=== PATIENT | female | born 1940 | race Caucasian/White ===

== ENCOUNTER 2017-08-03 15:30 | Outpatient (RCR) | payer MEDICARE, SELFPAY ==
[2017-07-18 01:17] VITALS: BP 152/70; PULSE 76; RESP 18; TEMP 37.2; BMI 25.7
[2017-07-20 15:25] VITALS: BP 158/79; PULSE 74; RESP 16; TEMP 36.6; BMI 25.7
--- NOTE | 2017-07-20 16:44 | PCM.WC.PN ---
(1) Non-pressure chronic ulcer of right ankle with fat layer exposed Status: Acute Current Visit: Yes Code(s): L97.312 - Non-pressure chronic ulcer of right ankle with fat layer exposed (2) Venous insufficiency (chronic) (peripheral) Status: Chronic Current Visit: Yes Comment: I87.2 Type of Wound Date of Service: 07/20/17 Chief Complaint: R ankle ulcers History of Wound: R ankle ulcers present for about 1 month, treating with Bactroban topically (completed) as well as an unknown PO antibiotic. Notes improvement since starting this, but her information technology data analyst, Dr. Navas, recommended she follow up here. Pt is not diabetic, does not smoke, sleeps flat at night, but admits to frequently standing in one place or sitting with her legs down. Has a history of hypertension, but no other systemic medical problems that she knows of--specifically denies autoimmune diseases. Denies redness, pus, malodor, warmth. Minimal pain and drainage. Does have swelling of both legs that is mild. Unsure how the ulcers started, but states she developed a rash that was treated successfully with prednisone and then developed these ulcerations. 07/06--R daly and R achilles ulcers improved with the use of medihoney hydrogel sheets (Santyl too expensive). R lateral ankle ulcer measuring larger. Plan for biopsy today of the R lateral ankle ulcer given non-healing and measuring larger as well as referral to dermatology given pt's complaint of new spots. 07/13--R daly and R achilles ulcers improved with the use of medihoney. R lateral ankle ulcer improved. Biopsy negative for malignancy. Art study normal. Venous study reveals vein incompetence. Referral to Dr. Gallego. Will increase compression. 07/20--R daly healed and R achilles ulcer improved with the use of medihoney. R lateral ankle ulcer stable. Venous study reveals vein incompetence. Referral to Dr. Gallego. Denies s/s of acute bacterial infection. Progress of Wound: R daly healed and R achilles improved, R lateral ankle ulcer stable. - Physical Exam Vital Signs Temp Pulse Resp BP 97.8 F 74 16 158/79 H 07/20/17 15:25 07/20/17 15:25 07/20/17 15:25 07/20/17 15:25 General: Alert, Oriented x3, Cooperative, No apparent distress Skin: Ulcer/ Wound - R lateral ankle, R achilles with no erythema, no pus, no malodor, no increased warmth, no TTP. No clinical signs of acute bacterial infection noted. Please see nurse's wound assessment. Wound Measurements and Assessment - Nurse 1 - General Ulcer Measurement Start: 07/20/17 00:43 Freq: Status: Active Protocol: Activity Type Activity Date Activity User E-Sign Co-Sign Detail Recorded Client Recorded Date Recorded By Document 07/20/17 15:25 [id number] 07/20/17 15:35 NIYA 07/20/17 15:25 Wound Center Nurse 1 [Ulcer Assessment Protocol: WC.WD.LOC] #4 RT ACHILLES -Combined with other wound No -Current Size (cm) - Length 0.3 -Current Size (cm) - Width 0.4 -Current Size (cm) - Depth 0.1 -Total Square Cm 0.12 -Photo Taken No -Epithelialization Small 1-33% -Tunneling No -Undermining/Tunneling No -Circular Undermining No -Exudate Amt Small (1-33%) -Exudate Type Serosanguineous -Wound Margin Flat & Intact -Granulation Amt Large (67-100%) -Granulation Quality Red -Slough/Fibrin Yes -Necrosis Amt Small (1-33%) -Necrotic Tissue Type Adherent Slough -Structure Exposed N/A -Texture (Risa-wound Skin Appearance) Assessed -Moisture (Risa-wound Skin Appearance Assessed ) Dry/Scaly -Color (Risa-wound Skin Appearance) Assessed -Temperature (Risa-wound Skin No Abnormality Appearance) (Pt Warm) -Tenderness on Palpation (Risa-wound No Skin Appearance) -Ulcer Cleansing Rinsed/ Irrigated with Saline -Foul Odor after Cleansing No -Anesthetic Used 4% Lidocaine Solution #3 RT LATERAL ANKLE -Combined with other wound No -Current Size (cm) - Length 2.2 -Current Size (cm) - Width 1.9 -Current Size (cm) - Depth 0.1 -Total Square Cm 4.18 -Photo Taken No -Epithelialization Small 1-33% -Tunneling No -Undermining/Tunneling No -Circular Undermining No -Exudate Amt Medium (34-66%) -Exudate Type Serosanguineous -Wound Margin Flat & Intact -Granulation Amt Medium (34-66%) -Granulation Quality [place] -Necrosis Amt Medium (34-66%) -Necrotic Tissue Type Adherent Slough -Texture (Risa-wound Skin Appearance) Assessed -Moisture (Risa-wound Skin Appearance Assessed ) Dry/Scaly -Color (Risa-wound Skin Appearance) Assessed -Tenderness on Palpation (Risa-wound Yes Skin Appearance) -Ulcer Cleansing Rinsed/ Irrigated with Saline -Foul Odor after Cleansing No -Anesthetic Used 4% Lidocaine Solution #2- RT DALY CLUSTER -Combined with other wound No -Current Size (cm) - Length 0 -Current Size (cm) - Width 0 -Current Size (cm) - Depth 0 -Total Square Cm 0 [Edema Assessment] -Lower Limb Edema Present Yes -Right Calf (cm) 29.3 -Right Ankle (cm) 17.4 WC - Nurse 2 - General Ulcer CM Notes Start: 07/20/17 00:43 Freq: Status: Active Protocol: Activity Type Activity Date Activity User E-Sign Co-Sign Detail Recorded Client Recorded Date Recorded By Document 07/20/17 15:54 MW [id number] 07/20/17 16:01 MW 07/20/17 15:54 Wound Center Nurse 2 [Procedure/Treatment] #4 RT ACHILLES -Time 15:54 -Correct Patient Yes -Correct Side, Site, Position Yes -Correct Procedure Yes -Procedure Performed Yes -Type of Procedure Debridement -Clinical Debridement Subcutaneous -Post Debridement Size (cm) - Length 0.4 -Post Debridement Size (cm) - Width 0.4 -Post Debridement Size (cm) - Depth 0.1 -Total Square Cm 0.16 -Wound/Ulcer Outcome Not Healed -Ulcer Cleansing Rinsed/ Irrigated with Saline -Foul Odor after Cleansing No -Bioengineered Tissue No -Cetacaine [place] No -Bleeding Controlled with Pressure -Treatment Response Procedure Tolerated Well #3 RT LATERAL ANKLE -Time 15:55 -Correct Patient Yes -Correct Side, Site, Position Yes -Correct Procedure Yes -Procedure Performed Yes -Type of Procedure Debridement -Clinical Debridement Subcutaneous -Post Debridement Size (cm) - Length 2.3 -Post Debridement Size (cm) - Width 1.9 -Post Debridement Size (cm) - Depth 0.1 -Total Square Cm 4.37 -Wound/Ulcer Outcome Not Healed -Ulcer Cleansing Rinsed/ Irrigated with Saline -Foul Odor after Cleansing No -Bioengineered Tissue No -Cetacaine [place] No -Bleeding Controlled with Pressure -Treatment Response Procedure Tolerated Well #2- RT DALY CLUSTER -Time 15:56 -Correct Patient Yes -Correct Side, Site, Position Yes -Correct Procedure Yes -Procedure Performed No -Post Debridement Size (cm) - Length 0 -Post Debridement Size (cm) - Width 0 -Post Debridement Size (cm) - Depth 0 -Total Square Cm 0 -Wound/Ulcer Outcome Healed- Epithelialized -Ulcer Cleansing Not Cleansed -Foul Odor after Cleansing No -Bleeding Controlled with NA -Treatment Response Procedure Tolerated Well [See Physician Procedure note for Specifics] Pain Scale: 0-10 Numeric [Pain] -Is Patient Pain Free? Yes Debridement Note Post-Debridement Measurements/Treatment WC - Nurse 2 - General Ulcer CM Notes Start: 07/20/17 00:43 Freq: Status: Active Protocol: Activity Type Activity Date Activity User E-Sign Co-Sign Detail Recorded Client Recorded Date Recorded By Document 07/20/17 15:54 MW [id number] 07/20/17 16:01 MW 07/20/17 15:54 Wound Center Nurse 2 #4 RT ACHILLES -Time 15:54 -Correct Patient Yes -Correct Side, Site, Position Yes -Correct Procedure Yes -Procedure Performed Yes -Type of Procedure Debridement -Clinical Debridement Subcutaneous -Post Debridement Size (cm) - Length 0.4 -Post Debridement Size (cm) - Width 0.4 -Post Debridement Size (cm) - Depth 0.1 -Total Square Cm 0.16 -Wound/Ulcer Outcome Not Healed -Ulcer Cleansing Rinsed/ Irrigated with Saline -Foul Odor after Cleansing No -Bioengineered Tissue No -Cetacaine [place] No -Bleeding Controlled with Pressure -Treatment Response Procedure Tolerated Well #3 RT LATERAL ANKLE -Time 15:55 -Correct Patient Yes -Correct Side, Site, Position Yes -Correct Procedure Yes -Procedure Performed Yes -Type of Procedure Debridement -Clinical Debridement Subcutaneous -Post Debridement Size (cm) - Length 2.3 -Post Debridement Size (cm) - Width 1.9 -Post Debridement Size (cm) - Depth 0.1 -Total Square Cm 4.37 -Wound/Ulcer Outcome Not Healed -Ulcer Cleansing Rinsed/ Irrigated with Saline -Foul Odor after Cleansing No -Bioengineered Tissue No -Cetacaine [place] No -Bleeding Controlled with Pressure -Treatment Response Procedure Tolerated Well #2- RT DALY CLUSTER -Time 15:56 -Correct Patient Yes -Correct Side, Site, Position Yes -Correct Procedure Yes -Procedure Performed No -Post Debridement Size (cm) - Length 0 -Post Debridement Size (cm) - Width 0 -Post Debridement Size (cm) - Depth 0 -Total Square Cm 0 -Wound/Ulcer Outcome Healed- Epithelialized -Ulcer Cleansing Not Cleansed -Foul Odor after Cleansing No -Bleeding Controlled with NA -Treatment Response Procedure Tolerated Well Pain Scale: 0-10 Numeric Is Patient Pain Free? Yes Wound debrided: R lateral ankle Laterality: Right Wound Grade/Stage: full thickness VLU Type of Debridement: Excisional debridement Anesthesia Used: 4% Lidocaine Solution Depth: Down to and including healthy tissue, in the subcutaneous layer Percentage of wound debrided: 100 Instrument Used: 3mm curette Tissue Removed: fibrous slough Severity: Fat Layer Exposed Amount of bleeding with debridement: Mild Bleeding Controlled with: Pressure, Compression and gauze Patient tolerated procedure well - Additional Wound Wound debrided: R achilles Laterality: Right Wound Grade/Stage: full thickness VLU Type of Debridement: Excisional debridement Anesthesia Used: 4% Lidocaine Solution Depth: Down to and including healthy tissue, in the subcutaneous layer Percentage of wound debrided: 100 Instrument Used: 3mm curette Tissue Removed: fibrous slough Severity: Fat Layer Exposed Amount of bleeding with debridement: Mild Bleeding Controlled with: Pressure, Compression and gauze Patient tolerated procedure: Patient tolerated procedure well Assessment/Plan Active Problems Non-pressure chronic ulcer of right ankle with fat layer exposed (Acute) Venous insufficiency (chronic) (peripheral) (Chronic) I87.2 Assessment: See diagnoses Plan: SQ/excisional debridement R lateral ankle ulcer and R achilles ulcer as above. Moderate spandagrip. Referral to dermatology given new spots on her LEFT leg (pt states this is how the wounds started on her RIGHT leg). Pt unable to purchase santyl. Apply today in clinic, cont medihoney gel at home (stop hydrogel sheets) followed by dry gauze. Increase to 2x daily. Monitor for redness, pus, malodor, warmth, inc pain, swelling as well as N/V/F/C and go to the ED with these.
--- NOTE | 2017-07-20 16:48 | PN.PCM_ITS ---
(1) Non-pressure chronic ulcer of right ankle with fat layer exposed Status: Acute Current Visit: Yes Code(s): L97.312 - Non-pressure chronic ulcer of right ankle with fat layer exposed (2) Venous insufficiency (chronic) (peripheral) Status: Chronic Current Visit: Yes Comment: I87.2 Type of Wound Date of Service: 07/20/17 Chief Complaint: R ankle ulcers History of Wound: R ankle ulcers present for about 1 month, treating with Bactroban topically (completed) as well as an unknown PO antibiotic. Notes improvement since starting this, but her inbound sales consultant, Dr. Navas, recommended she follow up here. Pt is not diabetic, does not smoke, sleeps flat at night, but admits to frequently standing in one place or sitting with her legs down. Has a history of hypertension, but no other systemic medical problems that she knows of--specifically denies autoimmune diseases. Denies redness, pus, malodor , warmth. Minimal pain and drainage. Does have swelling of both legs that is mild. Unsure how the ulcers started, but states she developed a rash that was treated successfully with prednisone and then developed these ulcerations. --R daly and R achilles ulcers improved with the use of medihoney hydrogel sheets (Santyl too expensive). R lateral ankle ulcer measuring larger. Plan for biopsy today of the R lateral ankle ulcer given non-healing and measuring larger as well as referral to dermatology given pt's complaint of new spots. 07/13--R daly and R achilles ulcers improved with the use of medihoney. R lateral ankle ulcer improved. Biopsy negative for malignancy. Art study normal. Venous study reveals vein incompetence. Referral to Dr. Gallego. Will increase compression. 07/20--R daly healed and R achilles ulcer improved with the use of medihoney. R lateral ankle ulcer stable. Venous study reveals vein incompetence. Referral to Dr. Gallego. Denies s/s of acute bacterial infection. Progress of Wound: R daly healed and R achilles improved, R lateral ankle ulcer stable. - Physical Exam Vital Signs Temp Pulse Resp BP 97.8 F 74 16 158/79 H 07/20/17 15:25 07/20/17 15:25 07/20/17 15:25 07/20/17 15:25 General: Alert, Oriented x3, Cooperative, No apparent distress Skin: Ulcer/ Wound - R lateral ankle, R achilles with no erythema, no pus, no malodor, no increased warmth, no TTP. No clinical signs of acute bacterial infection noted. Please see nurse's wound assessment. Wound Measurements and Assessment - Nurse 1 - General Ulcer Measurement Start: 07/20/17 00:43 Freq: Status: Active Protocol: Activity Type Activity Date Activity User E-Sign Co-Sign Detail Recorded Client Recorded Date Recorded By Document 07/20/17 15:25 [id number] 07/20/17 15:35 NIYA 07/20/17 15:25 Wound Center Nurse 1 [Ulcer Assessment Protocol: WC.WD.LOC] #4 RT ACHILLES -Combined with other wound No -Current Size (cm) - Length 0.3 -Current Size (cm) - Width 0.4 -Current Size (cm) - Depth 0.1 -Total Square Cm 0.12 -Photo Taken No -Epithelialization Small 1-33% -Tunneling No -Undermining/Tunneling No -Circular Undermining No -Exudate Amt Small (1-33%) -Exudate Type Serosanguineous -Wound Margin Flat & Intact -Granulation Amt Large (67-100%) -Granulation Quality Red -Slough/Fibrin Yes -Necrosis Amt Small (1-33%) -Necrotic Tissue Type Adherent Slough -Structure Exposed N/A -Texture (Risa-wound Skin Appearance) Assessed -Moisture (Risa-wound Skin Appearance Assessed ) Dry/Scaly -Color (Risa-wound Skin Appearance) Assessed -Temperature (Risa-wound Skin No Abnormality Appearance) (Pt Warm) -Tenderness on Palpation (Risa-wound No Skin Appearance) -Ulcer Cleansing Rinsed/ Irrigated with Saline -Foul Odor after Cleansing No -Anesthetic Used 4% Lidocaine Solution #3 RT LATERAL ANKLE -Combined with other wound No -Current Size (cm) - Length 2.2 -Current Size (cm) - Width 1.9 -Current Size (cm) - Depth 0.1 -Total Square Cm 4.18 -Photo Taken No -Epithelialization Small 1-33% -Tunneling No -Undermining/Tunneling No -Circular Undermining No -Exudate Amt Medium (34-66%) -Exudate Type Serosanguineous -Wound Margin Flat & Intact -Granulation Amt Medium (34-66%) -Granulation Quality [place] -Necrosis Amt Medium (34-66%) -Necrotic Tissue Type Adherent Slough -Texture (Risa-wound Skin Appearance) Assessed -Moisture (Risa-wound Skin Appearance Assessed ) Dry/Scaly -Color (Risa-wound Skin Appearance) Assessed -Tenderness on Palpation (Risa-wound Yes Skin Appearance) -Ulcer Cleansing Rinsed/ Irrigated with Saline -Foul Odor after Cleansing No -Anesthetic Used 4% Lidocaine Solution #2- RT DALY CLUSTER -Combined with other wound No -Current Size (cm) - Length 0 -Current Size (cm) - Width 0 -Current Size (cm) - Depth 0 -Total Square Cm 0 [Edema Assessment] -Lower Limb Edema Present Yes -Right Calf (cm) 29.3 -Right Ankle (cm) 17.4 WC - Nurse 2 - General Ulcer CM Notes Start: 07/20/17 00:43 Freq: Status: Active Protocol: Activity Type Activity Date Activity User E-Sign Co-Sign Detail Recorded Client Recorded Date Recorded By Document 07/20/17 15:54 MW [id number] 07/20/17 16:01 MW 07/20/17 15:54 Wound Center Nurse 2 [Procedure/Treatment] #4 RT ACHILLES -Time 15:54 -Correct Patient Yes -Correct Side, Site, Position Yes -Correct Procedure Yes -Procedure Performed Yes -Type of Procedure Debridement -Clinical Debridement Subcutaneous -Post Debridement Size (cm) - Length 0.4 -Post Debridement Size (cm) - Width 0.4 -Post Debridement Size (cm) - Depth 0.1 -Total Square Cm 0.16 -Wound/Ulcer Outcome Not Healed -Ulcer Cleansing Rinsed/ Irrigated with Saline -Foul Odor after Cleansing No -Bioengineered Tissue No -Cetacaine [place] No -Bleeding Controlled with Pressure -Treatment Response Procedure Tolerated Well #3 RT LATERAL ANKLE -Time 15:55 -Correct Patient Yes -Correct Side, Site, Position Yes -Correct Procedure Yes -Procedure Performed Yes -Type of Procedure Debridement -Clinical Debridement Subcutaneous -Post Debridement Size (cm) - Length 2.3 -Post Debridement Size (cm) - Width 1.9 -Post Debridement Size (cm) - Depth 0.1 -Total Square Cm 4.37 -Wound/Ulcer Outcome Not Healed -Ulcer Cleansing Rinsed/ Irrigated with Saline -Foul Odor after Cleansing No -Bioengineered Tissue No -Cetacaine [place] No -Bleeding Controlled with Pressure -Treatment Response Procedure Tolerated Well #2- RT DALY CLUSTER -Time 15:56 -Correct Patient Yes -Correct Side, Site, Position Yes -Correct Procedure Yes -Procedure Performed No -Post Debridement Size (cm) - Length 0 -Post Debridement Size (cm) - Width 0 -Post Debridement Size (cm) - Depth 0 -Total Square Cm 0 -Wound/Ulcer Outcome Healed- Epithelialized -Ulcer Cleansing Not Cleansed -Foul Odor after Cleansing No -Bleeding Controlled with NA -Treatment Response Procedure Tolerated Well [See Physician Procedure note for Specifics] Pain Scale: 0-10 Numeric [Pain] -Is Patient Pain Free? Yes Debridement Note Post-Debridement Measurements/Treatment WC - Nurse 2 - General Ulcer CM Notes Start: 07/20/17 00:43 Freq: Status: Active Protocol: Activity Type Activity Date Activity User E-Sign Co-Sign Detail Recorded Client Recorded Date Recorded By Document 07/20/17 15:54 MW [id number] 07/20/17 16:01 MW 07/20/17 15:54 Wound Center Nurse 2 #4 RT ACHILLES -Time 15:54 -Correct Patient Yes -Correct Side, Site, Position Yes -Correct Procedure Yes -Procedure Performed Yes -Type of Procedure Debridement -Clinical Debridement Subcutaneous -Post Debridement Size (cm) - Length 0.4 -Post Debridement Size (cm) - Width 0.4 -Post Debridement Size (cm) - Depth 0.1 -Total Square Cm 0.16 -Wound/Ulcer Outcome Not Healed -Ulcer Cleansing Rinsed/ Irrigated with Saline -Foul Odor after Cleansing No -Bioengineered Tissue No -Cetacaine [place] No -Bleeding Controlled with Pressure -Treatment Response Procedure Tolerated Well #3 RT LATERAL ANKLE -Time 15:55 -Correct Patient Yes -Correct Side, Site, Position Yes -Correct Procedure Yes -Procedure Performed Yes -Type of Procedure Debridement -Clinical Debridement Subcutaneous -Post Debridement Size (cm) - Length 2.3 -Post Debridement Size (cm) - Width 1.9 -Post Debridement Size (cm) - Depth 0.1 -Total Square Cm 4.37 -Wound/Ulcer Outcome Not Healed -Ulcer Cleansing Rinsed/ Irrigated with Saline -Foul Odor after Cleansing No -Bioengineered Tissue No -Cetacaine [place] No -Bleeding Controlled with Pressure -Treatment Response Procedure Tolerated Well #2- RT DALY CLUSTER -Time 15:56 -Correct Patient Yes -Correct Side, Site, Position Yes -Correct Procedure Yes -Procedure Performed No -Post Debridement Size (cm) - Length 0 -Post Debridement Size (cm) - Width 0 -Post Debridement Size (cm) - Depth 0 -Total Square Cm 0 -Wound/Ulcer Outcome Healed- Epithelialized -Ulcer Cleansing Not Cleansed -Foul Odor after Cleansing No -Bleeding Controlled with NA -Treatment Response Procedure Tolerated Well Pain Scale: 0-10 Numeric Is Patient Pain Free? Yes Wound debrided: R lateral ankle Laterality: Right Wound Grade/Stage: full thickness VLU Type of Debridement: Excisional debridement Anesthesia Used: 4% Lidocaine Solution Depth: Down to and including healthy tissue, in the subcutaneous layer Percentage of wound debrided: 100 Instrument Used: 3mm curette Tissue Removed: fibrous slough Severity: Fat Layer Exposed Amount of bleeding with debridement: Mild Bleeding Controlled with: Pressure, Compression and gauze Patient tolerated procedure well - Additional Wound Wound debrided: R achilles Laterality: Right Wound Grade/Stage: full thickness VLU Type of Debridement: Excisional debridement Anesthesia Used: 4% Lidocaine Solution Depth: Down to and including healthy tissue, in the subcutaneous layer Percentage of wound debrided: 100 Instrument Used: 3mm curette Tissue Removed: fibrous slough Severity: Fat Layer Exposed Amount of bleeding with debridement: Mild Bleeding Controlled with: Pressure, Compression and gauze Patient tolerated procedure: Patient tolerated procedure well Assessment/Plan Active Problems Non-pressure chronic ulcer of right ankle with fat layer exposed (Acute) Venous insufficiency (chronic) (peripheral) (Chronic) I87.2 Assessment: See diagnoses Plan: SQ/excisional debridement R lateral ankle ulcer and R achilles ulcer as above. Moderate spandagrip. Referral to dermatology given new spots on her LEFT leg (pt states this is how the wounds started on her RIGHT leg). Pt unable to purchase santyl. Apply today in clinic, cont medihoney gel at home (stop hydrogel sheets) followed by dry gauze. Increase to 2x daily. Monitor for redness, pus, malodor, warmth, inc pain, swelling as well as N/V/F/C and go to the ED with these.
[2017-07-27 15:49] VITALS: BP 147/67; PULSE 71; RESP 18; TEMP 36.5; BMI 25.7
--- NOTE | 2017-07-27 16:33 | PCM.WC.PN ---
(1) Non-pressure chronic ulcer of right ankle with fat layer exposed Status: Acute Current Visit: Yes Code(s): L97.312 - Non-pressure chronic ulcer of right ankle with fat layer exposed (2) Venous insufficiency (chronic) (peripheral) Status: Chronic Current Visit: Yes Comment: I87.2 Type of Wound Date of Service: 07/27/17 Chief Complaint: R ankle ulcers History of Wound: R ankle ulcers present for about 1 month, treating with Bactroban topically (completed) as well as an unknown PO antibiotic. Notes improvement since starting this, but her weight yardage checker, Dr. Navas, recommended she follow up here. Pt is not diabetic, does not smoke, sleeps flat at night, but admits to frequently standing in one place or sitting with her legs down. Has a history of hypertension, but no other systemic medical problems that she knows of--specifically denies autoimmune diseases. Denies redness, pus, malodor, warmth. Minimal pain and drainage. Does have swelling of both legs that is mild. Unsure how the ulcers started, but states she developed a rash that was treated successfully with prednisone and then developed these ulcerations. 07/06--R daly and R achilles ulcers improved with the use of medihoney hydrogel sheets (Santyl too expensive). R lateral ankle ulcer measuring larger. Plan for biopsy today of the R lateral ankle ulcer given non-healing and measuring larger as well as referral to dermatology given pt's complaint of new spots. 07/13--R daly and R achilles ulcers improved with the use of medihoney. R lateral ankle ulcer improved. Biopsy negative for malignancy. Art study normal. Venous study reveals vein incompetence. Referral to Dr. Gallego. Will increase compression. 07/20--R daly healed and R achilles ulcer improved with the use of medihoney. R lateral ankle ulcer stable. Venous study reveals vein incompetence. Referral to Dr. Gallego. Denies s/s of acute bacterial infection. 07/27--R daly healed and R achilles ulcer healed with the use of medihoney. R lateral ankle ulcer improved. Venous study reveals vein incompetence. Referral to Dr. Gallego provided last week. Denies s/s of acute bacterial infection. Progress of Wound: R daly healed and R achilles healed, R lateral ankle ulcer improved with medihoney. - Physical Exam Vital Signs Temp Pulse Resp BP 97.7 F L 71 18 147/67 H 07/27/17 15:49 07/27/17 15:49 07/27/17 15:49 07/27/17 15:49 General: Alert, Oriented x3, Cooperative, No apparent distress Skin: Ulcer/ Wound - R lateral ankle with no erythema, no pus, no malodor, no increased warmth, no TTP. No clinical signs of acute bacterial infection noted. Please see nurse's wound assessment. Wound Measurements and Assessment WC - Nurse 1 - General Ulcer Measurement Start: 07/20/17 00:43 Freq: Status: Active Protocol: Activity Type Activity Date Activity User E-Sign Co-Sign Detail Recorded Client Recorded Date Recorded By Document 07/27/17 15:49 DL [id number] 07/27/17 15:57 DL 07/27/17 15:49 Wound Center Nurse 1 [Ulcer Assessment Protocol: WC.WD.LOC] #4 RT ACHILLES -Current Size (cm) - Length 0.6 -Current Size (cm) - Width 0.5 -Current Size (cm) - Depth 0.1 -Total Square Cm 0.30 -Photo Taken No -Exudate Amt None Present (0 %) -Wound Margin Flat & Intact -Granulation Amt Large (67-100%) -Granulation Quality [place] -Necrosis Amt None Present (0 %) -Texture (Risa-wound Skin Appearance) Scarring -Moisture (Risa-wound Skin Appearance No Abnormality ) -Color (Risa-wound Skin Appearance) No Abnormality -Temperature (Risa-wound Skin No Abnormality Appearance) (Pt Warm) -Ulcer Cleansing Rinsed/ Irrigated with Saline -Foul Odor after Cleansing No -Anesthetic Used 4% Lidocaine Solution #3 RT LATERAL ANKLE -Current Size (cm) - Length 1.1 -Current Size (cm) - Width 2.1 -Current Size (cm) - Depth 0.1 -Total Square Cm 2.31 -Photo Taken No -Exudate Amt Small (1-33%) -Exudate Type Serosanguineous -Wound Margin Distinct, Outline Attached -Granulation Amt Small (1-33%) -Granulation Quality [place] -Necrosis Amt Large (67-100%) -Necrotic Tissue Type Adherent Slough -Structure Exposed N/A -Texture (Risa-wound Skin Appearance) Excoriation -Moisture (Risa-wound Skin Appearance Maceration ) -Color (Risa-wound Skin Appearance) No Abnormality -Temperature (Risa-wound Skin No Abnormality Appearance) (Pt Warm) -Ulcer Cleansing Rinsed/ Irrigated with Saline -Foul Odor after Cleansing No -Anesthetic Used 4% Lidocaine Solution [Edema Assessment] -Right Calf (cm) 28.5 -Right Ankle (cm) 16 Debridement Note Post-Debridement Measurements/Treatment WC - Nurse 2 - General Ulcer CM Notes Start: 07/20/17 00:43 Freq: Status: Active Protocol: Activity Type Activity Date Activity User E-Sign Co-Sign Detail Recorded Client Recorded Date Recorded By Document 07/20/17 15:54 MW [id number] 07/20/17 16:01 MW 07/20/17 15:54 Wound Center Nurse 2 #4 RT ACHILLES -Time 15:54 -Correct Patient Yes -Correct Side, Site, Position Yes -Correct Procedure Yes -Procedure Performed Yes -Type of Procedure Debridement -Clinical Debridement Subcutaneous -Post Debridement Size (cm) - Length 0.4 -Post Debridement Size (cm) - Width 0.4 -Post Debridement Size (cm) - Depth 0.1 -Total Square Cm 0.16 -Wound/Ulcer Outcome Not Healed -Ulcer Cleansing Rinsed/ Irrigated with Saline -Foul Odor after Cleansing No -Bioengineered Tissue No -Cetacaine [place] No -Bleeding Controlled with Pressure -Treatment Response Procedure Tolerated Well #3 RT LATERAL ANKLE -Time 15:55 -Correct Patient Yes -Correct Side, Site, Position Yes -Correct Procedure Yes -Procedure Performed Yes -Type of Procedure Debridement -Clinical Debridement Subcutaneous -Post Debridement Size (cm) - Length 2.3 -Post Debridement Size (cm) - Width 1.9 -Post Debridement Size (cm) - Depth 0.1 -Total Square Cm 4.37 -Wound/Ulcer Outcome Not Healed -Ulcer Cleansing Rinsed/ Irrigated with Saline -Foul Odor after Cleansing No -Bioengineered Tissue No -Cetacaine [place] No -Bleeding Controlled with Pressure -Treatment Response Procedure Tolerated Well #2- RT DALY CLUSTER -Time 15:56 -Correct Patient Yes -Correct Side, Site, Position Yes -Correct Procedure Yes -Procedure Performed No -Post Debridement Size (cm) - Length 0 -Post Debridement Size (cm) - Width 0 -Post Debridement Size (cm) - Depth 0 -Total Square Cm 0 -Wound/Ulcer Outcome Healed- Epithelialized -Ulcer Cleansing Not Cleansed -Foul Odor after Cleansing No -Bleeding Controlled with NA -Treatment Response Procedure Tolerated Well Pain Scale: 0-10 Numeric Is Patient Pain Free? Yes Wound debrided: R lateral ankle Laterality: Right Wound Grade/Stage: Full thickness VLU Type of Debridement: Excisional debridement Anesthesia Used: 4% Lidocaine Solution Depth: Down to and including healthy tissue, in the subcutaneous layer Percentage of wound debrided: 100 Instrument Used: 3mm curette Tissue Removed: fibrous slough Severity: Fat Layer Exposed Amount of bleeding with debridement: Mild Bleeding Controlled with: Pressure, Compression and gauze Patient tolerated procedure well Assessment/Plan Active Problems Non-pressure chronic ulcer of right ankle with fat layer exposed (Acute) Venous insufficiency (chronic) (peripheral) (Chronic) I87.2 Assessment: See diagnoses Plan: SQ/excisional debridement R lateral ankle ulcer as above. Moderate spandagrip. No debridement elsewhere--all other areas previously open are epithelialized and have healed. Pt unable to purchase santyl. Apply today in clinic, cont medihoney gel at home BID followed by dry gauze. Monitor for redness, pus, malodor, warmth, inc pain, swelling as well as N/V/F/C and go to the ED with these.
--- NOTE | 2017-07-27 16:36 | PN.PCM_ITS ---
(1) Non-pressure chronic ulcer of right ankle with fat layer exposed Status: Acute Current Visit: Yes Code(s): L97.312 - Non-pressure chronic ulcer of right ankle with fat layer exposed (2) Venous insufficiency (chronic) (peripheral) Status: Chronic Current Visit: Yes Comment: I87.2 Type of Wound Date of Service: 07/27/17 Chief Complaint: R ankle ulcers History of Wound: R ankle ulcers present for about 1 month, treating with Bactroban topically (completed) as well as an unknown PO antibiotic. Notes improvement since starting this, but her rn hedis, Dr. Navas, recommended she follow up here. Pt is not diabetic, does not smoke, sleeps flat at night, but admits to frequently standing in one place or sitting with her legs down. Has a history of hypertension, but no other systemic medical problems that she knows of--specifically denies autoimmune diseases. Denies redness, pus, malodor , warmth. Minimal pain and drainage. Does have swelling of both legs that is mild. Unsure how the ulcers started, but states she developed a rash that was treated successfully with prednisone and then developed these ulcerations. --R daly and R achilles ulcers improved with the use of medihoney hydrogel sheets (Santyl too expensive). R lateral ankle ulcer measuring larger. Plan for biopsy today of the R lateral ankle ulcer given non-healing and measuring larger as well as referral to dermatology given pt's complaint of new spots. 07/13--R daly and R achilles ulcers improved with the use of medihoney. R lateral ankle ulcer improved. Biopsy negative for malignancy. Art study normal. Venous study reveals vein incompetence. Referral to Dr. Gallego. Will increase compression. 07/20--R daly healed and R achilles ulcer improved with the use of medihoney. R lateral ankle ulcer stable. Venous study reveals vein incompetence. Referral to Dr. Gallego. Denies s/s of acute bacterial infection. 07/27--R daly healed and R achilles ulcer healed with the use of medihoney. R lateral ankle ulcer improved. Venous study reveals vein incompetence. Referral to Dr. Gallego provided last week. Denies s/s of acute bacterial infection. Progress of Wound: R daly healed and R achilles healed, R lateral ankle ulcer improved with medihoney. - Physical Exam Vital Signs Temp Pulse Resp BP 97.7 F L 71 18 147/67 H 07/27/17 15:49 07/27/17 15:49 07/27/17 15:49 07/27/17 15:49 General: Alert, Oriented x3, Cooperative, No apparent distress Skin: Ulcer/ Wound - R lateral ankle with no erythema, no pus, no malodor, no increased warmth, no TTP. No clinical signs of acute bacterial infection noted. Please see nurse's wound assessment. Wound Measurements and Assessment WC - Nurse 1 - General Ulcer Measurement Start: 07/20/17 00:43 Freq: Status: Active Protocol: Activity Type Activity Date Activity User E-Sign Co-Sign Detail Recorded Client Recorded Date Recorded By Document 07/27/17 15:49 DL [id number] 07/27/17 15:57 DL 07/27/17 15:49 Wound Center Nurse 1 [Ulcer Assessment Protocol: WC.WD.LOC] #4 RT ACHILLES -Current Size (cm) - Length 0.6 -Current Size (cm) - Width 0.5 -Current Size (cm) - Depth 0.1 -Total Square Cm 0.30 -Photo Taken No -Exudate Amt None Present (0 %) -Wound Margin Flat & Intact -Granulation Amt Large (67-100%) -Granulation Quality [place] -Necrosis Amt None Present (0 %) -Texture (Risa-wound Skin Appearance) Scarring -Moisture (Risa-wound Skin Appearance No Abnormality ) -Color (Risa-wound Skin Appearance) No Abnormality -Temperature (Risa-wound Skin No Abnormality Appearance) (Pt Warm) -Ulcer Cleansing Rinsed/ Irrigated with Saline -Foul Odor after Cleansing No -Anesthetic Used 4% Lidocaine Solution #3 RT LATERAL ANKLE -Current Size (cm) - Length 1.1 -Current Size (cm) - Width 2.1 -Current Size (cm) - Depth 0.1 -Total Square Cm 2.31 -Photo Taken No -Exudate Amt Small (1-33%) -Exudate Type Serosanguineous -Wound Margin Distinct, Outline Attached -Granulation Amt Small (1-33%) -Granulation Quality [place] -Necrosis Amt Large (67-100%) -Necrotic Tissue Type Adherent Slough -Structure Exposed N/A -Texture (Risa-wound Skin Appearance) Excoriation -Moisture (Risa-wound Skin Appearance Maceration ) -Color (Risa-wound Skin Appearance) No Abnormality -Temperature (Risa-wound Skin No Abnormality Appearance) (Pt Warm) -Ulcer Cleansing Rinsed/ Irrigated with Saline -Foul Odor after Cleansing No -Anesthetic Used 4% Lidocaine Solution [Edema Assessment] -Right Calf (cm) 28.5 -Right Ankle (cm) 16 Debridement Note Post-Debridement Measurements/Treatment WC - Nurse 2 - General Ulcer CM Notes Start: 07/20/17 00:43 Freq: Status: Active Protocol: Activity Type Activity Date Activity User E-Sign Co-Sign Detail Recorded Client Recorded Date Recorded By Document 07/20/17 15:54 MW [id number] 07/20/17 16:01 MW 07/20/17 15:54 Wound Center Nurse 2 #4 RT ACHILLES -Time 15:54 -Correct Patient Yes -Correct Side, Site, Position Yes -Correct Procedure Yes -Procedure Performed Yes -Type of Procedure Debridement -Clinical Debridement Subcutaneous -Post Debridement Size (cm) - Length 0.4 -Post Debridement Size (cm) - Width 0.4 -Post Debridement Size (cm) - Depth 0.1 -Total Square Cm 0.16 -Wound/Ulcer Outcome Not Healed -Ulcer Cleansing Rinsed/ Irrigated with Saline -Foul Odor after Cleansing No -Bioengineered Tissue No -Cetacaine [place] No -Bleeding Controlled with Pressure -Treatment Response Procedure Tolerated Well #3 RT LATERAL ANKLE -Time 15:55 -Correct Patient Yes -Correct Side, Site, Position Yes -Correct Procedure Yes -Procedure Performed Yes -Type of Procedure Debridement -Clinical Debridement Subcutaneous -Post Debridement Size (cm) - Length 2.3 -Post Debridement Size (cm) - Width 1.9 -Post Debridement Size (cm) - Depth 0.1 -Total Square Cm 4.37 -Wound/Ulcer Outcome Not Healed -Ulcer Cleansing Rinsed/ Irrigated with Saline -Foul Odor after Cleansing No -Bioengineered Tissue No -Cetacaine [place] No -Bleeding Controlled with Pressure -Treatment Response Procedure Tolerated Well #2- RT DALY CLUSTER -Time 15:56 -Correct Patient Yes -Correct Side, Site, Position Yes -Correct Procedure Yes -Procedure Performed No -Post Debridement Size (cm) - Length 0 -Post Debridement Size (cm) - Width 0 -Post Debridement Size (cm) - Depth 0 -Total Square Cm 0 -Wound/Ulcer Outcome Healed- Epithelialized -Ulcer Cleansing Not Cleansed -Foul Odor after Cleansing No -Bleeding Controlled with NA -Treatment Response Procedure Tolerated Well Pain Scale: 0-10 Numeric Is Patient Pain Free? Yes Wound debrided: R lateral ankle Laterality: Right Wound Grade/Stage: Full thickness VLU Type of Debridement: Excisional debridement Anesthesia Used: 4% Lidocaine Solution Depth: Down to and including healthy tissue, in the subcutaneous layer Percentage of wound debrided: 100 Instrument Used: 3mm curette Tissue Removed: fibrous slough Severity: Fat Layer Exposed Amount of bleeding with debridement: Mild Bleeding Controlled with: Pressure, Compression and gauze Patient tolerated procedure well Assessment/Plan Active Problems Non-pressure chronic ulcer of right ankle with fat layer exposed (Acute) Venous insufficiency (chronic) (peripheral) (Chronic) I87.2 Assessment: See diagnoses Plan: SQ/excisional debridement R lateral ankle ulcer as above. Moderate spandagrip. No debridement elsewhere--all other areas previously open are epithelialized and have healed. Pt unable to purchase santyl. Apply today in clinic, cont medihoney gel at home BID followed by dry gauze. Monitor for redness, pus, malodor, warmth, inc pain, swelling as well as N/V/F/C and go to the ED with these.
[2017-08-03 15:54] VITALS: BP 111/89; PULSE 88; RESP 16; TEMP 36.9; BMI 25.7
--- NOTE | 2017-08-03 16:43 | PN.PCM_ITS ---
(1) Non-pressure chronic ulcer of right ankle with fat layer exposed Status: Acute Current Visit: Yes Code(s): L97.312 - Non-pressure chronic ulcer of right ankle with fat layer exposed (2) Venous insufficiency (chronic) (peripheral) Status: Chronic Current Visit: Yes Comment: I87.2 Type of Wound Date of Service: 08/03/17 Chief Complaint: R ankle ulcers History of Wound: R ankle ulcers present for about 1 month, treating with Bactroban topically (completed) as well as an unknown PO antibiotic. Notes improvement since starting this, but her chief of staff doctor, Dr. Navas, recommended she follow up here. Pt is not diabetic, does not smoke, sleeps flat at night, but admits to frequently standing in one place or sitting with her legs down. Has a history of hypertension, but no other systemic medical problems that she knows of--specifically denies autoimmune diseases. Denies redness, pus, malodor , warmth. Minimal pain and drainage. Does have swelling of both legs that is mild. Unsure how the ulcers started, but states she developed a rash that was treated successfully with prednisone and then developed these ulcerations. --R daly and R achilles ulcers improved with the use of medihoney hydrogel sheets (Santyl too expensive). R lateral ankle ulcer measuring larger. Plan for biopsy today of the R lateral ankle ulcer given non-healing and measuring larger as well as referral to dermatology given pt's complaint of new spots. 07/13--R daly and R achilles ulcers improved with the use of medihoney. R lateral ankle ulcer improved. Biopsy negative for malignancy. Art study normal. Venous study reveals vein incompetence. Referral to Dr. Gallego. Will increase compression. 07/20--R daly healed and R achilles ulcer improved with the use of medihoney. R lateral ankle ulcer stable. Venous study reveals vein incompetence. Referral to Dr. Gallego. Denies s/s of acute bacterial infection. 07/27--R daly healed and R achilles ulcer healed with the use of medihoney. R lateral ankle ulcer improved. Venous study reveals vein incompetence. Referral to Dr. Gallego provided last week. Denies s/s of acute bacterial infection. 08/03--R daly healed and R achilles ulcer healed with the use of medihoney. R lateral ankle ulcer improved. Venous study reveals vein incompetence. Referral to Dr. Gallego provided previously. Denies s/s of acute bacterial infection. She has also seen a nursing home admissions director recently. Progress of Wound: R daly healed and R achilles healed, R lateral ankle ulcer improved with medihoney. - Physical Exam Vital Signs Temp Pulse Resp BP 98.4 F 88 16 111/89 H 08/03/17 15:54 08/03/17 15:54 08/03/17 15:54 08/03/17 15:54 General: Alert, Oriented x3, Cooperative, No apparent distress Skin: Ulcer/ Wound - R lateral ankle with no erythema, no pus, no malodor, no increased warmth, no TTP. No clinical signs of acute bacterial infection noted. Please see nurse's wound assessment. Wound Measurements and Assessment WC - Nurse 1 - General Ulcer Measurement Start: 07/20/17 00:43 Freq: Status: Active Protocol: Activity Type Activity Date Activity User E-Sign Co-Sign Detail Recorded Client Recorded Date Recorded By Document 08/03/17 15:54 DV [id number] 08/03/17 15:58 DV 08/03/17 15:54 Wound Center Nurse 1 [Ulcer Assessment Protocol: WC.WD.LOC] #3 RT LATERAL ANKLE -Combined with other wound No -Current Size (cm) - Length 1.2 -Current Size (cm) - Width 1.8 -Current Size (cm) - Depth 0.1 -Total Square Cm 2.16 -Photo Taken No -Epithelialization Small 1-33% -Tunneling No -Undermining/Tunneling No -Classification - Thickness Full Thickness without Exposed Support Structure -Exudate Amt Small (1-33%) -Exudate Type Serous -Wound Margin Distinct, Outline Attached -Granulation Amt Small (1-33%) -Granulation Quality Pale -Slough/Fibrin Yes -Necrosis Amt Small (1-33%) -Necrotic Tissue Type Adherent Slough -Structure Exposed None/Limited to Skin Breakdown -Texture (Risa-wound Skin Appearance) No Abnormality Assessed -Moisture (Risa-wound Skin Appearance Assessed ) Weeping -Color (Risa-wound Skin Appearance) No Abnormality Assessed -Temperature (Risa-wound Skin No Abnormality Appearance) (Pt Warm) -Tenderness on Palpation (Risa-wound Yes Skin Appearance) -Ulcer Cleansing Rinsed/ Irrigated with Saline -Foul Odor after Cleansing No -Anesthetic Used 5% Lidocaine Gel [Edema Assessment] -Left Calf (cm) 31.5 -Left Ankle (cm) 18.5 WC - Nurse 2 - General Ulcer CM Notes Start: 07/20/17 00:43 Freq: Status: Active Protocol: Activity Type Activity Date Activity User E-Sign Co-Sign Detail Recorded Client Recorded Date Recorded By Document 08/03/17 16:11 MW [id number] 08/03/17 16:15 MW 08/03/17 16:11 Wound Center Nurse 2 [Procedure/Treatment] #3 RT LATERAL ANKLE -Time 16:12 -Correct Patient Yes -Correct Side, Site, Position Yes -Correct Procedure Yes -Procedure Performed Yes -Type of Procedure Debridement -Clinical Debridement Subcutaneous -Post Debridement Size (cm) - Length 1.3 -Post Debridement Size (cm) - Width 1.8 -Post Debridement Size (cm) - Depth 0.1 -Total Square Cm 2.34 -Wound/Ulcer Outcome Not Healed -Ulcer Cleansing Rinsed/ Irrigated with Saline -Foul Odor after Cleansing No -Bioengineered Tissue No -Cetacaine Foss No -Bleeding Controlled with Pressure -Treatment Response Procedure Tolerated Well [See Physician Procedure note for Specifics] Pain Scale: 0-10 Numeric [Pain] -Is Patient Pain Free? Yes Debridement Note Post-Debridement Measurements/Treatment WC - Nurse 2 - General Ulcer CM Notes Start: 07/20/17 00:43 Freq: Status: Active Protocol: Activity Type Activity Date Activity User E-Sign Co-Sign Detail Recorded Client Recorded Date Recorded By Document 07/20/17 15:54 MW [id number] 07/20/17 16:01 MW Document 07/27/17 16:29 MW [id number] 07/27/17 16:34 MW Document 08/03/17 16:11 MW [id number] 08/03/17 16:15 MW 07/20/17 07/27/17 08/03/17 15:54 16:29 16:11 Wound Center Nurse 2 #4 RT ACHILLES -Time 15:54 16:30 -Correct Patient Yes Yes -Correct Side, Site, Position Yes Yes -Correct Procedure Yes Yes -Procedure Performed Yes No -Type of Procedure Debridement -Clinical Debridement Subcutaneous -Post Debridement Size (cm) - Length 0.4 0 -Post Debridement Size (cm) - Width 0.4 0 -Post Debridement Size (cm) - Depth 0.1 0 -Total Square Cm 0.16 0 -Wound/Ulcer Outcome Not Healed Healed- Epithelialized -Ulcer Cleansing Rinsed/ Rinsed/ Irrigated with Irrigated with Saline Saline -Foul Odor after Cleansing No No -Bioengineered Tissue No No -Cetacaine Foss No No -Bleeding Controlled with Pressure Pressure -Treatment Response Procedure Procedure Tolerated Well Tolerated Well #3 RT LATERAL ANKLE -Time 15:55 16:30 16:12 -Correct Patient Yes Yes Yes -Correct Side, Site, Position Yes Yes Yes -Correct Procedure Yes Yes Yes -Procedure Performed Yes Yes Yes -Type of Procedure Debridement Debridement Debridement -Clinical Debridement Subcutaneous Subcutaneous Subcutaneous -Post Debridement Size (cm) - Length 2.3 1.2 1.3 -Post Debridement Size (cm) - Width 1.9 2.2 1.8 -Post Debridement Size (cm) - Depth 0.1 0.1 0.1 -Total Square Cm 4.37 2.64 2.34 -Wound/Ulcer Outcome Not Healed Not Healed Not Healed -Ulcer Cleansing Rinsed/ Rinsed/ Rinsed/ Irrigated with Irrigated with Irrigated with Saline Saline Saline -Foul Odor after Cleansing No No No -Bioengineered Tissue No No No -Cetacaine Foss No No No -Bleeding Controlled with Pressure Pressure Pressure -Treatment Response Procedure Procedure Procedure Tolerated Well Tolerated Well Tolerated Well #2- RT DALY CLUSTER -Time 15:56 -Correct Patient Yes -Correct Side, Site, Position Yes -Correct Procedure Yes -Procedure Performed No -Post Debridement Size (cm) - Length 0 -Post Debridement Size (cm) - Width 0 -Post Debridement Size (cm) - Depth 0 -Total Square Cm 0 -Wound/Ulcer Outcome Healed- Epithelialized -Ulcer Cleansing Not Cleansed -Foul Odor after Cleansing No -Bleeding Controlled with NA -Treatment Response Procedure Tolerated Well Pain Scale: 0-10 Numeric Is Patient Pain Free? Yes Yes Yes Wound debrided: R lateral ankle Laterality: Right Wound Grade/Stage: full thickness VLU Type of Debridement: Excisional debridement Anesthesia Used: 5% Lidocaine Gel Depth: Down to and including healthy tissue, in the subcutaneous layer Percentage of wound debrided: 100 Instrument Used: 3mm curette Tissue Removed: fibrous slough Severity: Fat Layer Exposed Amount of bleeding with debridement: Mild Bleeding Controlled with: Pressure, Compression and gauze Patient tolerated procedure well Assessment/Plan Active Problems Non-pressure chronic ulcer of right ankle with fat layer exposed (Acute) Venous insufficiency (chronic) (peripheral) (Chronic) I87.2 Assessment: See diagnoses Plan: SQ/excisional debridement R lateral ankle ulcer as above. Moderate spandagrip. No debridement elsewhere--all other areas previously open are epithelialized and have healed. Pt unable to purchase santyl. Apply santyl today in clinic, cont medihoney gel at home BID followed by dry gauze. Monitor for redness, pus, malodor, warmth, inc pain, swelling as well as N/V/F/C and go to the ED with these. Return in 2 weeks due to holiday, call with questions.
== END 2017-08-15 23:59 ==
LOC: WC 15:30
PROVIDERS: Family Provider Preventive Medicine Occupational Medicine; PCP Preventive Medicine Occupational Medicine; Visit Provider Podiatrist Foot & Ankle Surgery
DX: I87.2 Venous insufficiency (chronic) (peripheral) (principal); L97.312 Non-pressure chronic ulcer of right ankle with fat layer exposed; I10 Essential (primary) hypertension; R79.89 Other specified abnormal findings of blood chemistry
CPT/HCPCS: 11042; 97602

== ENCOUNTER 2017-09-14 15:00 | Outpatient (RCR) | payer MEDICARE, SELFPAY ==
[2017-08-16 01:24] VITALS: BP 111/89; PULSE 88; RESP 16; TEMP 36.9; BMI 25.7
[2017-08-17 15:17] VITALS: BP 168/87; PULSE 77; RESP 16; TEMP 37.1; BMI 25.7
--- NOTE | 2017-08-17 16:08 | PCM.WC.PN ---
(1) Non-pressure chronic ulcer of right ankle with fat layer exposed Status: Acute Current Visit: Yes Code(s): L97.312 - Non-pressure chronic ulcer of right ankle with fat layer exposed (2) Venous insufficiency (chronic) (peripheral) Status: Chronic Current Visit: Yes Comment: I87.2 Type of Wound Date of Service: 08/17/17 Chief Complaint: R ankle ulcers History of Wound: R ankle ulcers present for about 1 month, treating with Bactroban topically (completed) as well as an unknown PO antibiotic. Notes improvement since starting this, but her binding end stitcher, Dr. Navas, recommended she follow up here. Pt is not diabetic, does not smoke, sleeps flat at night, but admits to frequently standing in one place or sitting with her legs down. Has a history of hypertension, but no other systemic medical problems that she knows of--specifically denies autoimmune diseases. Denies redness, pus, malodor, warmth. Minimal pain and drainage. Does have swelling of both legs that is mild. Unsure how the ulcers started, but states she developed a rash that was treated successfully with prednisone and then developed these ulcerations. 07/06--R daly and R achilles ulcers improved with the use of medihoney hydrogel sheets (Santyl too expensive). R lateral ankle ulcer measuring larger. Plan for biopsy today of the R lateral ankle ulcer given non-healing and measuring larger as well as referral to dermatology given pt's complaint of new spots. 07/13--R daly and R achilles ulcers improved with the use of medihoney. R lateral ankle ulcer improved. Biopsy negative for malignancy. Art study normal. Venous study reveals vein incompetence. Referral to Dr. Gallego. Will increase compression. 07/20--R daly healed and R achilles ulcer improved with the use of medihoney. R lateral ankle ulcer stable. Venous study reveals vein incompetence. Referral to Dr. Gallego. Denies s/s of acute bacterial infection. 07/27--R daly healed and R achilles ulcer healed with the use of medihoney. R lateral ankle ulcer improved. Venous study reveals vein incompetence. Referral to Dr. Gallego provided last week. Denies s/s of acute bacterial infection. 08/03--R daly healed and R achilles ulcer healed with the use of medihoney. R lateral ankle ulcer improved. Venous study reveals vein incompetence. Referral to Dr. Gallego provided previously. Denies s/s of acute bacterial infection. She has also seen a senior applications developer recently. 08/17/17--R daly healed and R achilles ulcer healed with the use of medihoney. R lateral ankle ulcer improved. Venous study reveals vein incompetence. Referral to Dr. Gallego provided previously--has appointment tomorrow. Denies s/s of acute bacterial infection. She has also seen a senior applications developer recently. Progress of Wound: R daly healed and R achilles healed, R lateral ankle ulcer improved with medihoney. - Physical Exam Vital Signs Temp Pulse Resp BP 98.7 F 77 16 168/87 H 08/17/17 15:17 08/17/17 15:17 08/17/17 15:17 08/17/17 15:17 General: Alert, Oriented x3, Cooperative, No apparent distress Skin: Ulcer/ Wound - R lateral ankle with no erythema, no malodor, no pus, no calor, no TTP. No clinical signs of acute bacterial infection noted. See nurse's wound assessment. Wound Measurements and Assessment - Nurse 1 - General Ulcer Measurement Start: 08/17/17 15:16 Freq: Status: Active Protocol: Activity Type Activity Date Activity User E-Sign Co-Sign Detail Recorded Client Recorded Date Recorded By Document 08/17/17 15:17 NIYA [id number] 08/17/17 15:20 NIYA 08/17/17 15:17 Wound Center Nurse 1 [Ulcer Assessment Protocol: WC.WD.LOC] #3 RT LATERAL ANKLE -Combined with other wound No -Current Size (cm) - Length 1.7 -Current Size (cm) - Width 1.0 -Current Size (cm) - Depth 0.1 -Total Square Cm 1.70 -Photo Taken No -Epithelialization Small 1-33% -Tunneling No -Undermining/Tunneling No -Circular Undermining No -Exudate Amt Large (67-100%) -Exudate Type Serosanguineous -Wound Margin Flat & Intact -Granulation Amt Medium (34-66%) -Granulation Quality Red -Slough/Fibrin Yes -Necrosis Amt Medium (34-66%) -Necrotic Tissue Type Adherent Slough -Structure Exposed N/A -Texture (Risa-wound Skin Appearance) Assessed Scarring -Moisture (Risa-wound Skin Appearance Assessed ) Dry/Scaly -Color (Risa-wound Skin Appearance) No Abnormality Assessed -Temperature (Risa-wound Skin No Abnormality Appearance) (Pt Warm) -Tenderness on Palpation (Risa-wound No Skin Appearance) -Ulcer Cleansing Rinsed/ Irrigated with Saline -Foul Odor after Cleansing No -Anesthetic Used 4% Lidocaine Solution [Edema Assessment] -Lower Limb Edema Present Yes -Right Calf (cm) 29.7 -Right Ankle (cm) 17.8 WC - Nurse 2 - General Ulcer CM Notes Start: 08/17/17 15:16 Freq: Status: Active Protocol: Activity Type Activity Date Activity User E-Sign Co-Sign Detail Recorded Client Recorded Date Recorded By Document 08/17/17 15:42 MW [id number] 08/17/17 15:47 MW 08/17/17 15:42 Wound Center Nurse 2 [Procedure/Treatment] #3 RT LATERAL ANKLE -Time 15:42 -Correct Patient Yes -Correct Side, Site, Position Yes -Correct Procedure Yes -Procedure Performed Yes -Type of Procedure Debridement -Clinical Debridement Subcutaneous -Post Debridement Size (cm) - Length 1.2 -Post Debridement Size (cm) - Width 1.2 -Post Debridement Size (cm) - Depth 0.1 -Total Square Cm 1.44 -Wound/Ulcer Outcome Not Healed -Ulcer Cleansing Rinsed/ Irrigated with Saline -Foul Odor after Cleansing No -Bioengineered Tissue No -Cetacaine Bison No -Bleeding Controlled with Pressure -Treatment Response Procedure Tolerated Well [See Physician Procedure note for Specifics] Pain Scale: 0-10 Numeric [Pain] -Is Patient Pain Free? Yes Debridement Note Post-Debridement Measurements/Treatment - Nurse 2 - General Ulcer CM Notes Start: 08/17/17 15:16 Freq: Status: Active Protocol: Activity Type Activity Date Activity User E-Sign Co-Sign Detail Recorded Client Recorded Date Recorded By Document 08/17/17 15:42 MW [id number] 08/17/17 15:47 MW 08/17/17 15:42 Wound Center Nurse 2 #3 RT LATERAL ANKLE -Time 15:42 -Correct Patient Yes -Correct Side, Site, Position Yes -Correct Procedure Yes -Procedure Performed Yes -Type of Procedure Debridement -Clinical Debridement Subcutaneous -Post Debridement Size (cm) - Length 1.2 -Post Debridement Size (cm) - Width 1.2 -Post Debridement Size (cm) - Depth 0.1 -Total Square Cm 1.44 -Wound/Ulcer Outcome Not Healed -Ulcer Cleansing Rinsed/ Irrigated with Saline -Foul Odor after Cleansing No -Bioengineered Tissue No -Cetacaine Bison No -Bleeding Controlled with Pressure -Treatment Response Procedure Tolerated Well Pain Scale: 0-10 Numeric Is Patient Pain Free? Yes Wound debrided: R lateral ankle Laterality: Right Wound Grade/Stage: Full thickness VLU Type of Debridement: Excisional debridement Anesthesia Used: 4% Lidocaine Solution Depth: Down to and including healthy tissue, in the subcutaneous layer Percentage of wound debrided: 100 Instrument Used: 3mm curette Tissue Removed: fibrous slough Severity: Fat Layer Exposed Amount of bleeding with debridement: Mild Bleeding Controlled with: Pressure, Compression and gauze Patient tolerated procedure well Assessment/Plan Active Problems Non-pressure chronic ulcer of right ankle with fat layer exposed (Acute) Venous insufficiency (chronic) (peripheral) (Chronic) I87.2 Assessment: See diagnoses Plan: SQ/excisional debridement R lateral ankle ulcer as above. Moderate spandagrip. No debridement elsewhere--all other areas previously open are epithelialized and have healed. Pt unable to purchase santyl. Apply santyl today in clinic, cont medihoney gel at home BID followed by dry gauze. Monitor for redness, pus, malodor, warmth, inc pain, swelling as well as N/V/F/C and go to the ED with these. Return in 1 week, call with questions. Pt to see Dr. Gallego tomorrow for venous insufficiency.
[2017-08-24 15:03] VITALS: BP 155/75; PULSE 77; RESP 16; TEMP 36.7; BMI 25.7
--- NOTE | 2017-08-24 15:46 | PN.PCM_ITS ---
(1) Non-pressure chronic ulcer of right ankle with fat layer exposed Status: Acute Current Visit: Yes Code(s): L97.312 - Non-pressure chronic ulcer of right ankle with fat layer exposed (2) Venous insufficiency (chronic) (peripheral) Status: Chronic Current Visit: Yes Comment: I87.2 Type of Wound Date of Service: 08/24/17 Chief Complaint: R ankle ulcers History of Wound: R ankle ulcers present for about 1 month, treating with Bactroban topically (completed) as well as an unknown PO antibiotic. Notes improvement since starting this, but her visual merchandising specialist, Dr. Navas, recommended she follow up here. Pt is not diabetic, does not smoke, sleeps flat at night, but admits to frequently standing in one place or sitting with her legs down. Has a history of hypertension, but no other systemic medical problems that she knows of--specifically denies autoimmune diseases. Denies redness, pus, malodor , warmth. Minimal pain and drainage. Does have swelling of both legs that is mild. Unsure how the ulcers started, but states she developed a rash that was treated successfully with prednisone and then developed these ulcerations. --R daly and R achilles ulcers improved with the use of medihoney hydrogel sheets (Santyl too expensive). R lateral ankle ulcer measuring larger. Plan for biopsy today of the R lateral ankle ulcer given non-healing and measuring larger as well as referral to dermatology given pt's complaint of new spots. 07/13--R daly and R achilles ulcers improved with the use of medihoney. R lateral ankle ulcer improved. Biopsy negative for malignancy. Art study normal. Venous study reveals vein incompetence. Referral to Dr. Gallego. Will increase compression. 07/20--R daly healed and R achilles ulcer improved with the use of medihoney. R lateral ankle ulcer stable. Venous study reveals vein incompetence. Referral to Dr. Gallego. Denies s/s of acute bacterial infection. 07/27--R daly healed and R achilles ulcer healed with the use of medihoney. R lateral ankle ulcer improved. Venous study reveals vein incompetence. Referral to Dr. Gallego provided last week. Denies s/s of acute bacterial infection. 08/03--R daly healed and R achilles ulcer healed with the use of medihoney. R lateral ankle ulcer improved. Venous study reveals vein incompetence. Referral to Dr. Gallego provided previously. Denies s/s of acute bacterial infection. She has also seen a waste management recycling technician recently. 08/17/17--R daly healed and R achilles ulcer healed with the use of medihoney. R lateral ankle ulcer improved. Venous study reveals vein incompetence. Referral to Dr. Gallego provided previously--has appointment tomorrow. Denies s/s of acute bacterial infection. She has also seen a waste management recycling technician recently. 08/24--R daly healed and R achilles ulcer healed with the use of medihoney. R lateral ankle ulcer improved. Venous study reveals vein incompetence. Referral to Dr. Gallego provided previously--pt saw him and is going to have a repeat venous duplex ( laying and then standing) in 3 months. Denies s/s of acute bacterial infection. She has also seen a waste management recycling technician recently. Progress of Wound: R daly healed and R achilles healed, R lateral ankle ulcer improved with medihoney. - Physical Exam Vital Signs Temp Pulse Resp BP 98.0 F 77 16 155/75 H 08/24/17 15:03 08/24/17 15:03 08/24/17 15:03 08/24/17 15:03 General: Alert, Oriented x3, Cooperative, No apparent distress Skin: Ulcer/ Wound - R lateral ankle with no erythema, no malodor, no pus, no calor, no TTP. No clinical signs of acute bacterial infection noted. See nurse 's wound assessment. Wound Measurements and Assessment [place] - Nurse 1 - General Ulcer Measurement Start: 08/17/17 15:16 Freq: Status: Active Protocol: Activity Type Activity Date Activity User E-Sign Co-Sign Detail Recorded Client Recorded Date Recorded By Document 08/24/17 15:03 NIYA [id number] 08/24/17 15:09 NIYA 08/24/17 15:03 Wound Center Nurse 1 [Ulcer Assessment Protocol: [place].WD.LOC] #3 RT LATERAL ANKLE -Combined with other wound No -Current Size (cm) - Length 1.2 -Current Size (cm) - Width 0.8 -Current Size (cm) - Depth 0.1 -Total Square Cm 0.96 -Photo Taken Yes -Tunneling No -Undermining/Tunneling No -Circular Undermining No -Exudate Amt Small (1-33%) -Exudate Type Serosanguineous -Wound Margin Flat & Intact -Granulation Amt Medium (34-66%) -Granulation Quality [place] -Slough/Fibrin Yes -Necrosis Amt Medium (34-66%) -Necrotic Tissue Type Adherent Slough -Structure Exposed N/A -Texture (Risa-wound Skin Appearance) Assessed Scarring -Moisture (Risa-wound Skin Appearance Assessed ) Dry/Scaly -Color (Risa-wound Skin Appearance) Assessed -Temperature (Risa-wound Skin No Abnormality Appearance) (Pt Warm) -Tenderness on Palpation (Risa-wound No Skin Appearance) -Ulcer Cleansing Rinsed/ Irrigated with Saline -Foul Odor after Cleansing No -Anesthetic Used 4% Lidocaine Solution [Edema Assessment] -Lower Limb Edema Present Yes -Right Calf (cm) 30.2 -Right Ankle (cm) 17.7 WC - Nurse 2 - General Ulcer CM Notes Start: 08/17/17 15:16 Freq: Status: Active Protocol: Activity Type Activity Date Activity User E-Sign Co-Sign Detail Recorded Client Recorded Date Recorded By Document 08/24/17 15:36 MW [id number] 08/24/17 15:42 MW 08/24/17 15:36 Wound Center Nurse 2 [Procedure/Treatment] #3 RT LATERAL ANKLE -Time 15:37 -Correct Patient Yes -Correct Side, Site, Position Yes -Correct Procedure Yes -Procedure Performed Yes -Type of Procedure Debridement -Clinical Debridement Subcutaneous -Post Debridement Size (cm) - Length 1.1 -Post Debridement Size (cm) - Width 0.7 -Post Debridement Size (cm) - Depth 0.1 -Total Square Cm 0.77 -Wound/Ulcer Outcome Not Healed -Ulcer Cleansing Rinsed/ Irrigated with Saline -Foul Odor after Cleansing No -Bioengineered Tissue No -Cetacaine [place] No -Bleeding Controlled with Pressure -Treatment Response Procedure Tolerated Well [See Physician Procedure note for Specifics] Pain Scale: 0-10 Numeric [Pain] -Is Patient Pain Free? Yes Debridement Note Post-Debridement Measurements/Treatment WC - Nurse 2 - General Ulcer CM Notes Start: 08/17/17 15:16 Freq: Status: Active Protocol: Activity Type Activity Date Activity User E-Sign Co-Sign Detail Recorded Client Recorded Date Recorded By Document 08/17/17 15:42 MW [id number] 08/17/17 15:47 MW Document 08/24/17 15:36 MW [id number] 08/24/17 15:42 MW 08/17/17 08/24/17 15:42 15:36 Wound Center Nurse 2 #3 RT LATERAL ANKLE -Time 15:42 15:37 -Correct Patient Yes Yes -Correct Side, Site, Position Yes Yes -Correct Procedure Yes Yes -Procedure Performed Yes Yes -Type of Procedure Debridement Debridement -Clinical Debridement Subcutaneous Subcutaneous -Post Debridement Size (cm) - Length 1.2 1.1 -Post Debridement Size (cm) - Width 1.2 0.7 -Post Debridement Size (cm) - Depth 0.1 0.1 -Total Square Cm 1.44 0.77 -Wound/Ulcer Outcome Not Healed Not Healed -Ulcer Cleansing Rinsed/ Rinsed/ Irrigated with Irrigated with Saline Saline -Foul Odor after Cleansing No No -Bioengineered Tissue No No -Cetacaine [place] No No -Bleeding Controlled with Pressure Pressure -Treatment Response Procedure Procedure Tolerated Well Tolerated Well Pain Scale: 0-10 Numeric Is Patient Pain Free? Yes Yes Wound debrided: R lateral ankle Laterality: Right Wound Grade/Stage: Full thickness VLU Type of Debridement: Excisional debridement Anesthesia Used: 4% Lidocaine Solution Depth: Down to and including healthy tissue, in the subcutaneous layer Percentage of wound debrided: 100 Instrument Used: 3mm curette Tissue Removed: fibrous slough Severity: Fat Layer Exposed Amount of bleeding with debridement: Mild Bleeding Controlled with: Pressure, Compression and gauze Patient tolerated procedure well Assessment/Plan Active Problems Non-pressure chronic ulcer of right ankle with fat layer exposed (Acute) Venous insufficiency (chronic) (peripheral) (Chronic) I87.2 Assessment: See diagnoses Plan: SQ/excisional debridement R lateral ankle ulcer as above. Moderate spandagrip. No debridement elsewhere--all other areas previously open are epithelialized and have healed. Cont medihoney gel at home BID followed by dry gauze or optifoam gentle. Monitor for redness, pus, malodor, warmth, inc pain, swelling as well as N/V/F/C and go to the ED with these. Return in 1 week, call with questions. Pt to f/u with Dr. Gallego as scheduled.
[2017-08-31 15:41] VITALS: BP 165/68; PULSE 65; RESP 18; TEMP 36.6; BMI 25.7
--- NOTE | 2017-08-31 16:38 | PCM.WC.PN ---
(1) Non-pressure chronic ulcer of right ankle with fat layer exposed Status: Acute Current Visit: Yes Code(s): L97.312 - Non-pressure chronic ulcer of right ankle with fat layer exposed (2) Venous insufficiency (chronic) (peripheral) Status: Chronic Current Visit: Yes Comment: I87.2 Type of Wound Date of Service: 08/31/17 Chief Complaint: R ankle ulcers History of Wound: R ankle ulcers present for about 1 month, treating with Bactroban topically (completed) as well as an unknown PO antibiotic. Notes improvement since starting this, but her stablehand, Dr. Navas, recommended she follow up here. Pt is not diabetic, does not smoke, sleeps flat at night, but admits to frequently standing in one place or sitting with her legs down. Has a history of hypertension, but no other systemic medical problems that she knows of--specifically denies autoimmune diseases. Denies redness, pus, malodor, warmth. Minimal pain and drainage. Does have swelling of both legs that is mild. Unsure how the ulcers started, but states she developed a rash that was treated successfully with prednisone and then developed these ulcerations. 07/06--R daly and R achilles ulcers improved with the use of medihoney hydrogel sheets (Santyl too expensive). R lateral ankle ulcer measuring larger. Plan for biopsy today of the R lateral ankle ulcer given non-healing and measuring larger as well as referral to dermatology given pt's complaint of new spots. 07/13--R daly and R achilles ulcers improved with the use of medihoney. R lateral ankle ulcer improved. Biopsy negative for malignancy. Art study normal. Venous study reveals vein incompetence. Referral to Dr. Gallego. Will increase compression. 07/20--R daly healed and R achilles ulcer improved with the use of medihoney. R lateral ankle ulcer stable. Venous study reveals vein incompetence. Referral to Dr. Gallego. Denies s/s of acute bacterial infection. 07/27--R daly healed and R achilles ulcer healed with the use of medihoney. R lateral ankle ulcer improved. Venous study reveals vein incompetence. Referral to Dr. Gallego provided last week. Denies s/s of acute bacterial infection. 08/03--R daly healed and R achilles ulcer healed with the use of medihoney. R lateral ankle ulcer improved. Venous study reveals vein incompetence. Referral to Dr. Gallego provided previously. Denies s/s of acute bacterial infection. She has also seen a analytical lab analyst recently. 08/17/17--R daly healed and R achilles ulcer healed with the use of medihoney. R lateral ankle ulcer improved. Venous study reveals vein incompetence. Referral to Dr. Gallego provided previously--has appointment tomorrow. Denies s/s of acute bacterial infection. She has also seen a analytical lab analyst recently. 08/24--R daly healed and R achilles ulcer healed with the use of medihoney. R lateral ankle ulcer improved. Venous study reveals vein incompetence. Referral to Dr. Gallego provided previously--pt saw him and is going to have a repeat venous duplex (laying and then standing) in 3 months. Denies s/s of acute bacterial infection. She has also seen a analytical lab analyst recently. 08/31--R daly healed and R achilles ulcer healed with the use of medihoney. R lateral ankle ulcer improved. Venous study reveals vein incompetence. Referral to Dr. Gallego provided previously--pt saw him and is going to have a repeat venous duplex (laying and then standing) in 3 months. Denies s/s of acute bacterial infection. She has also seen a analytical lab analyst recently. Progress of Wound: R daly healed and R achilles healed, R lateral ankle ulcer improved with medihoney. - Physical Exam Vital Signs Temp Pulse Resp BP 97.9 F 65 18 165/68 H 08/31/17 15:41 08/31/17 15:41 08/31/17 15:41 08/31/17 15:41 General: Alert, Oriented x3, Cooperative, No apparent distress Skin: Ulcer/ Wound - R lateral ankle with no erythema, no calor, no purulent drainage, no malodor, no TTP of ulcer or alvaro-ulcer area. No clinical signs of acute bacterial infection noted. See wound/edema assessment below. Wound Measurements and Assessment WC - Nurse 1 - General Ulcer Measurement Start: 08/17/17 15:16 Freq: Status: Active Protocol: Activity Type Activity Date Activity User E-Sign Co-Sign Detail Recorded Client Recorded Date Recorded By Document 08/31/17 15:41 DL [id number] 08/31/17 15:44 DL 08/31/17 15:41 Wound Center Nurse 1 [Ulcer Assessment Protocol: WC.WD.LOC] #3 RT LATERAL ANKLE -Current Size (cm) - Length 0.7 -Current Size (cm) - Width 0.7 -Current Size (cm) - Depth 0.1 -Total Square Cm 0.49 -Photo Taken No -Exudate Amt Small (1-33%) -Exudate Type Serosanguineous -Wound Margin Distinct, Outline Attached -Granulation Amt Small (1-33%) -Granulation Quality [place] -Slough/Fibrin Yes -Necrosis Amt Small (1-33%) -Necrotic Tissue Type Adherent Slough -Structure Exposed N/A -Texture (Alvaro-wound Skin Appearance) No Abnormality -Moisture (Alvaro-wound Skin Appearance No Abnormality ) -Color (Alvaro-wound Skin Appearance) No Abnormality -Temperature (Alvaro-wound Skin No Abnormality Appearance) (Pt Warm) -Ulcer Cleansing Wound Cleanser -Foul Odor after Cleansing No -Anesthetic Used 4% Lidocaine Solution [Edema Assessment] -Right Calf (cm) 28.5 -Right Ankle (cm) 16.5 WC - Nurse 2 - General Ulcer CM Notes Start: 08/17/17 15:16 Freq: Status: Active Protocol: Activity Type Activity Date Activity User E-Sign Co-Sign Detail Recorded Client Recorded Date Recorded By Document 08/31/17 16:31 MW [id number] 08/31/17 16:32 MW 08/31/17 16:31 Wound Center Nurse 2 [Procedure/Treatment] #3 RT LATERAL ANKLE -Time 16:31 -Correct Patient Yes -Correct Side, Site, Position Yes -Correct Procedure Yes -Procedure Performed Yes -Type of Procedure Debridement -Clinical Debridement Subcutaneous -Post Debridement Size (cm) - Length 0.8 -Post Debridement Size (cm) - Width 0.7 -Post Debridement Size (cm) - Depth 0.1 -Total Square Cm 0.56 -Wound/Ulcer Outcome Not Healed -Ulcer Cleansing Rinsed/ Irrigated with Saline -Foul Odor after Cleansing No -Bioengineered Tissue No -Cetacaine [place] No -Bleeding Controlled with Pressure -Treatment Response Procedure Tolerated Well [See Physician Procedure note for Specifics] Pain Scale: 0-10 Numeric [Pain] -Is Patient Pain Free? Yes Debridement Note Post-Debridement Measurements/Treatment WC - Nurse 2 - General Ulcer CM Notes Start: 08/17/17 15:16 Freq: Status: Active Protocol: Activity Type Activity Date Activity User E-Sign Co-Sign Detail Recorded Client Recorded Date Recorded By Document 08/17/17 15:42 MW [id number] 08/17/17 15:47 MW Document 08/24/17 15:36 MW [id number] 08/24/17 15:42 MW Document 08/31/17 16:31 MW [id number] 08/31/17 16:32 MW 08/17/17 08/24/17 08/31/17 15:42 15:36 16:31 Wound Center Nurse 2 #3 RT LATERAL ANKLE -Time 15:42 15:37 16:31 -Correct Patient Yes Yes Yes -Correct Side, Site, Position Yes Yes Yes -Correct Procedure Yes Yes Yes -Procedure Performed Yes Yes Yes -Type of Procedure Debridement Debridement Debridement -Clinical Debridement Subcutaneous Subcutaneous Subcutaneous -Post Debridement Size (cm) - Length 1.2 1.1 0.8 -Post Debridement Size (cm) - Width 1.2 0.7 0.7 -Post Debridement Size (cm) - Depth 0.1 0.1 0.1 -Total Square Cm 1.44 0.77 0.56 -Wound/Ulcer Outcome Not Healed Not Healed Not Healed -Ulcer Cleansing Rinsed/ Rinsed/ Rinsed/ Irrigated with Irrigated with Irrigated with Saline Saline Saline -Foul Odor after Cleansing No No No -Bioengineered Tissue No No No -Cetacaine [place] No No No -Bleeding Controlled with Pressure Pressure Pressure -Treatment Response Procedure Procedure Procedure Tolerated Well Tolerated Well Tolerated Well Pain Scale: 0-10 Numeric Is Patient Pain Free? Yes Yes Yes Wound debrided: R lateral ankle Laterality: Right Wound Grade/Stage: Full thickness VLU Type of Debridement: Excisional debridement Anesthesia Used: 4% Lidocaine Solution Depth: Down to and including healthy tissue, in the subcutaneous layer Percentage of wound debrided: 100 Instrument Used: 3mm curette Tissue Removed: fibrous slough Severity: Fat Layer Exposed Amount of bleeding with debridement: Mild Bleeding Controlled with: Pressure, Compression and gauze Patient tolerated procedure well Assessment/Plan Active Problems Non-pressure chronic ulcer of right ankle with fat layer exposed (Acute) Venous insufficiency (chronic) (peripheral) (Chronic) I87.2 Assessment: See diagnoses Plan: SQ/excisional debridement R lateral ankle ulcer as above. Moderate spandagrip. No debridement elsewhere--all other areas previously open are epithelialized and have healed. Area continues to improve. Cont medihoney gel BID followed by dry gauze or optifoam gentle. Monitor for redness, pus, malodor, warmth, inc pain, swelling as well as N/V/F/C and go to the ED with these. Return in 1 week, call with questions. Pt to f/u with Dr. Gallego as scheduled.
[2017-09-07 15:01] VITALS: BP 169/76; PULSE 67; RESP 16; TEMP 37; BMI 25.7
--- NOTE | 2017-09-07 15:51 | PCM.WC.PN ---
(1) Non-pressure chronic ulcer of right ankle with fat layer exposed Status: Acute Current Visit: Yes Code(s): L97.312 - Non-pressure chronic ulcer of right ankle with fat layer exposed (2) Venous insufficiency (chronic) (peripheral) Status: Chronic Current Visit: Yes Comment: I87.2 Type of Wound Date of Service: 09/07/17 Chief Complaint: R ankle ulcers History of Wound: R ankle ulcers present for about 1 month, treating with Bactroban topically (completed) as well as an unknown PO antibiotic. Notes improvement since starting this, but her timber setter, Dr. Navas, recommended she follow up here. Pt is not diabetic, does not smoke, sleeps flat at night, but admits to frequently standing in one place or sitting with her legs down. Has a history of hypertension, but no other systemic medical problems that she knows of--specifically denies autoimmune diseases. Denies redness, pus, malodor, warmth. Minimal pain and drainage. Does have swelling of both legs that is mild. Unsure how the ulcers started, but states she developed a rash that was treated successfully with prednisone and then developed these ulcerations. 07/06--R daly and R achilles ulcers improved with the use of medihoney hydrogel sheets (Santyl too expensive). R lateral ankle ulcer measuring larger. Plan for biopsy today of the R lateral ankle ulcer given non-healing and measuring larger as well as referral to dermatology given pt's complaint of new spots. 07/13--R daly and R achilles ulcers improved with the use of medihoney. R lateral ankle ulcer improved. Biopsy negative for malignancy. Art study normal. Venous study reveals vein incompetence. Referral to Dr. Gallego. Will increase compression. 07/20--R daly healed and R achilles ulcer improved with the use of medihoney. R lateral ankle ulcer stable. Venous study reveals vein incompetence. Referral to Dr. Gallego. Denies s/s of acute bacterial infection. 07/27--R daly healed and R achilles ulcer healed with the use of medihoney. R lateral ankle ulcer improved. Venous study reveals vein incompetence. Referral to Dr. Gallego provided last week. Denies s/s of acute bacterial infection. 08/03--R daly healed and R achilles ulcer healed with the use of medihoney. R lateral ankle ulcer improved. Venous study reveals vein incompetence. Referral to Dr. Gallego provided previously. Denies s/s of acute bacterial infection. She has also seen a attendance secretary recently. 08/17/17--R daly healed and R achilles ulcer healed with the use of medihoney. R lateral ankle ulcer improved. Venous study reveals vein incompetence. Referral to Dr. Gallego provided previously--has appointment tomorrow. Denies s/s of acute bacterial infection. She has also seen a attendance secretary recently. 08/24--R daly healed and R achilles ulcer healed with the use of medihoney. R lateral ankle ulcer improved. Venous study reveals vein incompetence. Referral to Dr. Gallego provided previously--pt saw him and is going to have a repeat venous duplex (laying and then standing) in 3 months. Denies s/s of acute bacterial infection. She has also seen a attendance secretary recently. 08/31--R daly healed and R achilles ulcer healed with the use of medihoney. R lateral ankle ulcer improved. Venous study reveals vein incompetence. Referral to Dr. Gallego provided previously--pt saw him and is going to have a repeat venous duplex (laying and then standing) in 3 months. Denies s/s of acute bacterial infection. She has also seen a attendance secretary recently. 09/07--R lateral ankle ulcer improved with medihoney BID. Denies s/s of acute bacterial infection. Progress of Wound: R daly healed and R achilles healed, R lateral ankle ulcer improved with medihoney. - Physical Exam Vital Signs Temp Pulse Resp BP 98.6 F 67 16 169/76 H 09/07/17 15:01 09/07/17 15:01 09/07/17 15:01 09/07/17 15:01 General: Alert, Oriented x3, Cooperative, No apparent distress Skin: Ulcer/ Wound - R lateral ankle with no erythema, no malodor, no pus, no TTP, no warmth. No clinical signs of acute bacterial infection noted. See wound/edema assessment below. Wound Measurements and Assessment WC - Nurse 1 - General Ulcer Measurement Start: 08/17/17 15:16 Freq: Status: Active Protocol: Activity Type Activity Date Activity User E-Sign Co-Sign Detail Recorded Client Recorded Date Recorded By Document 09/07/17 15:01 DL [id number] 09/07/17 15:05 DL 09/07/17 15:01 Wound Center Nurse 1 [Ulcer Assessment Protocol: [place].WD.LOC] #3 RT LATERAL ANKLE -Current Size (cm) - Length 0.6 -Current Size (cm) - Width 0.4 -Current Size (cm) - Depth 0.1 -Total Square Cm 0.24 -Photo Taken No -Exudate Amt Small (1-33%) -Exudate Type Serosanguineous -Wound Margin Flat & Intact -Granulation Amt Small (1-33%) -Granulation Quality Red -Necrosis Amt Small (1-33%) -Necrotic Tissue Type Adherent Slough -Structure Exposed N/A -Texture (Risa-wound Skin Appearance) No Abnormality -Moisture (Risa-wound Skin Appearance No Abnormality ) -Color (Risa-wound Skin Appearance) Erythema Rubor -Temperature (Risa-wound Skin No Abnormality Appearance) (Pt Warm) -Ulcer Cleansing Rinsed/ Irrigated with Saline -Foul Odor after Cleansing No -Anesthetic Used 4% Lidocaine Solution [Edema Assessment] -Right Calf (cm) 28.5 -Right Ankle (cm) 16.8 - Nurse 2 - General Ulcer CM Notes Start: 08/17/17 15:16 Freq: Status: Active Protocol: Activity Type Activity Date Activity User E-Sign Co-Sign Detail Recorded Client Recorded Date Recorded By Document 09/07/17 15:23 MW [id number] 09/07/17 15:24 MW 09/07/17 15:23 Wound Center Nurse 2 [Procedure/Treatment] #3 RT LATERAL ANKLE -Time 15:24 -Correct Patient Yes -Correct Side, Site, Position Yes -Correct Procedure Yes -Procedure Performed Yes -Type of Procedure Debridement -Clinical Debridement Subcutaneous -Post Debridement Size (cm) - Length 0.5 -Post Debridement Size (cm) - Width 0.4 -Post Debridement Size (cm) - Depth 0.1 -Total Square Cm 0.20 -Wound/Ulcer Outcome Not Healed -Ulcer Cleansing Rinsed/ Irrigated with Saline -Foul Odor after Cleansing No -Bioengineered Tissue No -Cetacaine [place] No -Bleeding Controlled with Pressure -Treatment Response Procedure Tolerated Well [See Physician Procedure note for Specifics] Pain Scale: 0-10 Numeric [Pain] -Is Patient Pain Free? Yes Debridement Note Post-Debridement Measurements/Treatment - Nurse 2 - General Ulcer CM Notes Start: 08/17/17 15:16 Freq: Status: Active Protocol: Activity Type Activity Date Activity User E-Sign Co-Sign Detail Recorded Client Recorded Date Recorded By Document 08/17/17 15:42 MW [id number] 08/17/17 15:47 MW Document 08/24/17 15:36 MW [id number] 08/24/17 15:42 MW Document 08/31/17 16:31 MW [id number] 08/31/17 16:32 MW Document 09/07/17 15:23 MW [id number] 09/07/17 15:24 MW 08/17/17 08/24/17 08/31/17 15:42 15:36 16:31 Wound Center Nurse 2 #3 RT LATERAL ANKLE -Time 15:42 15:37 16:31 -Correct Patient Yes Yes Yes -Correct Side, Site, Position Yes Yes Yes -Correct Procedure Yes Yes Yes -Procedure Performed Yes Yes Yes -Type of Procedure Debridement Debridement Debridement -Clinical Debridement Subcutaneous Subcutaneous Subcutaneous -Post Debridement Size (cm) - Length 1.2 1.1 0.8 -Post Debridement Size (cm) - Width 1.2 0.7 0.7 -Post Debridement Size (cm) - Depth 0.1 0.1 0.1 -Total Square Cm 1.44 0.77 0.56 -Wound/Ulcer Outcome Not Healed Not Healed Not Healed -Ulcer Cleansing Rinsed/ Rinsed/ Rinsed/ Irrigated with Irrigated with Irrigated with Saline Saline Saline -Foul Odor after Cleansing No No No -Bioengineered Tissue No No No -Cetacaine [place] No No No -Bleeding Controlled with Pressure Pressure Pressure -Treatment Response Procedure Procedure Procedure Tolerated Well Tolerated Well Tolerated Well Pain Scale: 0-10 Numeric Is Patient Pain Free? Yes Yes Yes 09/07/17 15:23 Wound Center Nurse 2 #3 RT LATERAL ANKLE -Time 15:24 -Correct Patient Yes -Correct Side, Site, Position Yes -Correct Procedure Yes -Procedure Performed Yes -Type of Procedure Debridement -Clinical Debridement Subcutaneous -Post Debridement Size (cm) - Length 0.5 -Post Debridement Size (cm) - Width 0.4 -Post Debridement Size (cm) - Depth 0.1 -Total Square Cm 0.20 -Wound/Ulcer Outcome Not Healed -Ulcer Cleansing Rinsed/ Irrigated with Saline -Foul Odor after Cleansing No -Bioengineered Tissue No -Cetacaine [place] No -Bleeding Controlled with Pressure -Treatment Response Procedure Tolerated Well Pain Scale: 0-10 Numeric Is Patient Pain Free? Yes Wound debrided: R lateral ankle Laterality: Right Wound Grade/Stage: full thickness VLU Type of Debridement: Excisional debridement Anesthesia Used: 4% Lidocaine Solution Depth: Down to and including healthy tissue, in the subcutaneous layer Percentage of wound debrided: 100 Instrument Used: 3mm curette Tissue Removed: fibrous slough Severity: Fat Layer Exposed Amount of bleeding with debridement: Mild Bleeding Controlled with: Pressure, Compression and gauze Patient tolerated procedure well Assessment/Plan Active Problems Non-pressure chronic ulcer of right ankle with fat layer exposed (Acute) Venous insufficiency (chronic) (peripheral) (Chronic) I87.2 Assessment: See diagnoses Plan: SQ/excisional debridement R lateral ankle ulcer as above. Moderate spandagrip. No debridement elsewhere--all other areas previously open are epithelialized and have healed. Area continues to improve. Cont medihoney gel BID followed by dry gauze or optifoam gentle. Monitor for redness, pus, malodor, warmth, inc pain, swelling as well as N/V/F/C and go to the ED with these. Return in 1 week, call with questions. Pt to f/u with Dr. Gallego as scheduled.
--- NOTE | 2017-09-07 15:55 | PN.PCM_ITS ---
(1) Non-pressure chronic ulcer of right ankle with fat layer exposed Status: Acute Current Visit: Yes Code(s): L97.312 - Non-pressure chronic ulcer of right ankle with fat layer exposed (2) Venous insufficiency (chronic) (peripheral) Status: Chronic Current Visit: Yes Comment: I87.2 Type of Wound Date of Service: 09/07/17 Chief Complaint: R ankle ulcers History of Wound: R ankle ulcers present for about 1 month, treating with Bactroban topically (completed) as well as an unknown PO antibiotic. Notes improvement since starting this, but her logistics associate, Dr. Navas, recommended she follow up here. Pt is not diabetic, does not smoke, sleeps flat at night, but admits to frequently standing in one place or sitting with her legs down. Has a history of hypertension, but no other systemic medical problems that she knows of--specifically denies autoimmune diseases. Denies redness, pus, malodor , warmth. Minimal pain and drainage. Does have swelling of both legs that is mild. Unsure how the ulcers started, but states she developed a rash that was treated successfully with prednisone and then developed these ulcerations. --R daly and R achilles ulcers improved with the use of medihoney hydrogel sheets (Santyl too expensive). R lateral ankle ulcer measuring larger. Plan for biopsy today of the R lateral ankle ulcer given non-healing and measuring larger as well as referral to dermatology given pt's complaint of new spots. 07/13--R daly and R achilles ulcers improved with the use of medihoney. R lateral ankle ulcer improved. Biopsy negative for malignancy. Art study normal. Venous study reveals vein incompetence. Referral to Dr. Gallego. Will increase compression. 07/20--R daly healed and R achilles ulcer improved with the use of medihoney. R lateral ankle ulcer stable. Venous study reveals vein incompetence. Referral to Dr. Gallego. Denies s/s of acute bacterial infection. 07/27--R daly healed and R achilles ulcer healed with the use of medihoney. R lateral ankle ulcer improved. Venous study reveals vein incompetence. Referral to Dr. Gallego provided last week. Denies s/s of acute bacterial infection. 08/03--R daly healed and R achilles ulcer healed with the use of medihoney. R lateral ankle ulcer improved. Venous study reveals vein incompetence. Referral to Dr. Gallego provided previously. Denies s/s of acute bacterial infection. She has also seen a trouble tracer recently. 08/17/17--R daly healed and R achilles ulcer healed with the use of medihoney. R lateral ankle ulcer improved. Venous study reveals vein incompetence. Referral to Dr. Gallego provided previously--has appointment tomorrow. Denies s/s of acute bacterial infection. She has also seen a trouble tracer recently. 08/24--R daly healed and R achilles ulcer healed with the use of medihoney. R lateral ankle ulcer improved. Venous study reveals vein incompetence. Referral to Dr. Gallego provided previously--pt saw him and is going to have a repeat venous duplex ( laying and then standing) in 3 months. Denies s/s of acute bacterial infection. She has also seen a trouble tracer recently. 08/31--R daly healed and R achilles ulcer healed with the use of medihoney. R lateral ankle ulcer improved. Venous study reveals vein incompetence. Referral to Dr. Gallego provided previously--pt saw him and is going to have a repeat venous duplex ( laying and then standing) in 3 months. Denies s/s of acute bacterial infection. She has also seen a trouble tracer recently. 09/07--R lateral ankle ulcer improved with medihoney BID. Denies s/s of acute bacterial infection. Progress of Wound: R daly healed and R achilles healed, R lateral ankle ulcer improved with medihoney. - Physical Exam Vital Signs Temp Pulse Resp BP 98.6 F 67 16 169/76 H 09/07/17 15:01 09/07/17 15:01 09/07/17 15:01 09/07/17 15:01 General: Alert, Oriented x3, Cooperative, No apparent distress Skin: Ulcer/ Wound - R lateral ankle with no erythema, no malodor, no pus, no TTP, no warmth. No clinical signs of acute bacterial infection noted. See wound /edema assessment below. Wound Measurements and Assessment WC - Nurse 1 - General Ulcer Measurement Start: 08/17/17 15:16 Freq: Status: Active Protocol: Activity Type Activity Date Activity User E-Sign Co-Sign Detail Recorded Client Recorded Date Recorded By Document 09/07/17 15:01 DL [id number] 09/07/17 15:05 DL 09/07/17 15:01 Wound Center Nurse 1 [Ulcer Assessment Protocol: [place].WD.LOC] #3 RT LATERAL ANKLE -Current Size (cm) - Length 0.6 -Current Size (cm) - Width 0.4 -Current Size (cm) - Depth 0.1 -Total Square Cm 0.24 -Photo Taken No -Exudate Amt Small (1-33%) -Exudate Type Serosanguineous -Wound Margin Flat & Intact -Granulation Amt Small (1-33%) -Granulation Quality Red -Necrosis Amt Small (1-33%) -Necrotic Tissue Type Adherent Slough -Structure Exposed N/A -Texture (Risa-wound Skin Appearance) No Abnormality -Moisture (Risa-wound Skin Appearance No Abnormality ) -Color (Risa-wound Skin Appearance) Erythema Rubor -Temperature (Risa-wound Skin No Abnormality Appearance) (Pt Warm) -Ulcer Cleansing Rinsed/ Irrigated with Saline -Foul Odor after Cleansing No -Anesthetic Used 4% Lidocaine Solution [Edema Assessment] -Right Calf (cm) 28.5 -Right Ankle (cm) 16.8 - Nurse 2 - General Ulcer CM Notes Start: 08/17/17 15:16 Freq: Status: Active Protocol: Activity Type Activity Date Activity User E-Sign Co-Sign Detail Recorded Client Recorded Date Recorded By Document 09/07/17 15:23 MW [id number] 09/07/17 15:24 MW 09/07/17 15:23 Wound Center Nurse 2 [Procedure/Treatment] #3 RT LATERAL ANKLE -Time 15:24 -Correct Patient Yes -Correct Side, Site, Position Yes -Correct Procedure Yes -Procedure Performed Yes -Type of Procedure Debridement -Clinical Debridement Subcutaneous -Post Debridement Size (cm) - Length 0.5 -Post Debridement Size (cm) - Width 0.4 -Post Debridement Size (cm) - Depth 0.1 -Total Square Cm 0.20 -Wound/Ulcer Outcome Not Healed -Ulcer Cleansing Rinsed/ Irrigated with Saline -Foul Odor after Cleansing No -Bioengineered Tissue No -Cetacaine [place] No -Bleeding Controlled with Pressure -Treatment Response Procedure Tolerated Well [See Physician Procedure note for Specifics] Pain Scale: 0-10 Numeric [Pain] -Is Patient Pain Free? Yes Debridement Note Post-Debridement Measurements/Treatment - Nurse 2 - General Ulcer CM Notes Start: 08/17/17 15:16 Freq: Status: Active Protocol: Activity Type Activity Date Activity User E-Sign Co-Sign Detail Recorded Client Recorded Date Recorded By Document 08/17/17 15:42 MW [id number] 08/17/17 15:47 MW Document 08/24/17 15:36 MW [id number] 08/24/17 15:42 MW Document 08/31/17 16:31 MW [id number] 08/31/17 16:32 MW Document 09/07/17 15:23 MW [id number] 09/07/17 15:24 MW 08/17/17 08/24/17 08/31/17 15:42 15:36 16:31 Wound Center Nurse 2 #3 RT LATERAL ANKLE -Time 15:42 15:37 16:31 -Correct Patient Yes Yes Yes -Correct Side, Site, Position Yes Yes Yes -Correct Procedure Yes Yes Yes -Procedure Performed Yes Yes Yes -Type of Procedure Debridement Debridement Debridement -Clinical Debridement Subcutaneous Subcutaneous Subcutaneous -Post Debridement Size (cm) - Length 1.2 1.1 0.8 -Post Debridement Size (cm) - Width 1.2 0.7 0.7 -Post Debridement Size (cm) - Depth 0.1 0.1 0.1 -Total Square Cm 1.44 0.77 0.56 -Wound/Ulcer Outcome Not Healed Not Healed Not Healed -Ulcer Cleansing Rinsed/ Rinsed/ Rinsed/ Irrigated with Irrigated with Irrigated with Saline Saline Saline -Foul Odor after Cleansing No No No -Bioengineered Tissue No No No -Cetacaine [place] No No No -Bleeding Controlled with Pressure Pressure Pressure -Treatment Response Procedure Procedure Procedure Tolerated Well Tolerated Well Tolerated Well Pain Scale: 0-10 Numeric Is Patient Pain Free? Yes Yes Yes 09/07/17 15:23 Wound Center Nurse 2 #3 RT LATERAL ANKLE -Time 15:24 -Correct Patient Yes -Correct Side, Site, Position Yes -Correct Procedure Yes -Procedure Performed Yes -Type of Procedure Debridement -Clinical Debridement Subcutaneous -Post Debridement Size (cm) - Length 0.5 -Post Debridement Size (cm) - Width 0.4 -Post Debridement Size (cm) - Depth 0.1 -Total Square Cm 0.20 -Wound/Ulcer Outcome Not Healed -Ulcer Cleansing Rinsed/ Irrigated with Saline -Foul Odor after Cleansing No -Bioengineered Tissue No -Cetacaine [place] No -Bleeding Controlled with Pressure -Treatment Response Procedure Tolerated Well Pain Scale: 0-10 Numeric Is Patient Pain Free? Yes Wound debrided: R lateral ankle Laterality: Right Wound Grade/Stage: full thickness VLU Type of Debridement: Excisional debridement Anesthesia Used: 4% Lidocaine Solution Depth: Down to and including healthy tissue, in the subcutaneous layer Percentage of wound debrided: 100 Instrument Used: 3mm curette Tissue Removed: fibrous slough Severity: Fat Layer Exposed Amount of bleeding with debridement: Mild Bleeding Controlled with: Pressure, Compression and gauze Patient tolerated procedure well Assessment/Plan Active Problems Non-pressure chronic ulcer of right ankle with fat layer exposed (Acute) Venous insufficiency (chronic) (peripheral) (Chronic) I87.2 Assessment: See diagnoses Plan: SQ/excisional debridement R lateral ankle ulcer as above. Moderate spandagrip. No debridement elsewhere--all other areas previously open are epithelialized and have healed. Area continues to improve. Cont medihoney gel BID followed by dry gauze or optifoam gentle. Monitor for redness, pus, malodor , warmth, inc pain, swelling as well as N/V/F/C and go to the ED with these. Return in 1 week, call with questions. Pt to f/u with Dr. Gallego as scheduled.
[2017-09-14 15:07] VITALS: BP 187/84; PULSE 73; RESP 16; TEMP 36.3; BMI 25.7
--- NOTE | 2017-09-14 16:18 | PCM.WC.PN ---
(1) Non-pressure chronic ulcer of right ankle with fat layer exposed Status: Acute Current Visit: Yes Code(s): L97.312 - Non-pressure chronic ulcer of right ankle with fat layer exposed (2) Venous insufficiency (chronic) (peripheral) Status: Chronic Current Visit: Yes Comment: I87.2 Type of Wound Date of Service: 09/14/17 Chief Complaint: R ankle ulcers History of Wound: R ankle ulcers present for about 1 month, treating with Bactroban topically (completed) as well as an unknown PO antibiotic. Notes improvement since starting this, but her purchasing agent, Dr. Navas, recommended she follow up here. Pt is not diabetic, does not smoke, sleeps flat at night, but admits to frequently standing in one place or sitting with her legs down. Has a history of hypertension, but no other systemic medical problems that she knows of--specifically denies autoimmune diseases. Denies redness, pus, malodor, warmth. Minimal pain and drainage. Does have swelling of both legs that is mild. Unsure how the ulcers started, but states she developed a rash that was treated successfully with prednisone and then developed these ulcerations. 07/06--R daly and R achilles ulcers improved with the use of medihoney hydrogel sheets (Santyl too expensive). R lateral ankle ulcer measuring larger. Plan for biopsy today of the R lateral ankle ulcer given non-healing and measuring larger as well as referral to dermatology given pt's complaint of new spots. 07/13--R daly and R achilles ulcers improved with the use of medihoney. R lateral ankle ulcer improved. Biopsy negative for malignancy. Art study normal. Venous study reveals vein incompetence. Referral to Dr. Gallego. Will increase compression. 07/20--R daly healed and R achilles ulcer improved with the use of medihoney. R lateral ankle ulcer stable. Venous study reveals vein incompetence. Referral to Dr. Gallego. Denies s/s of acute bacterial infection. 07/27--R daly healed and R achilles ulcer healed with the use of medihoney. R lateral ankle ulcer improved. Venous study reveals vein incompetence. Referral to Dr. Gallego provided last week. Denies s/s of acute bacterial infection. 08/03--R daly healed and R achilles ulcer healed with the use of medihoney. R lateral ankle ulcer improved. Venous study reveals vein incompetence. Referral to Dr. Gallego provided previously. Denies s/s of acute bacterial infection. She has also seen a corporate securities research analyst recently. 08/17/17--R daly healed and R achilles ulcer healed with the use of medihoney. R lateral ankle ulcer improved. Venous study reveals vein incompetence. Referral to Dr. Gallego provided previously--has appointment tomorrow. Denies s/s of acute bacterial infection. She has also seen a corporate securities research analyst recently. 08/24--R daly healed and R achilles ulcer healed with the use of medihoney. R lateral ankle ulcer improved. Venous study reveals vein incompetence. Referral to Dr. Gallego provided previously--pt saw him and is going to have a repeat venous duplex (laying and then standing) in 3 months. Denies s/s of acute bacterial infection. She has also seen a corporate securities research analyst recently. 08/31--R daly healed and R achilles ulcer healed with the use of medihoney. R lateral ankle ulcer improved. Venous study reveals vein incompetence. Referral to Dr. Gallego provided previously--pt saw him and is going to have a repeat venous duplex (laying and then standing) in 3 months. Denies s/s of acute bacterial infection. She has also seen a corporate securities research analyst recently. 09/07--R lateral ankle ulcer improved with medihoney BID. Denies s/s of acute bacterial infection. 09/14--R lateral ankle ulcer improved with medihoney BID. Denies s/s of acute bacterial infection. Progress of Wound: R daly healed and R achilles healed, R lateral ankle ulcer improved with medihoney. - Physical Exam Vital Signs Temp Pulse Resp BP 97.3 F L 73 16 187/84 H 09/14/17 15:07 09/14/17 15:07 09/14/17 15:07 09/14/17 15:07 General: Alert, Oriented x3, Cooperative, No apparent distress Skin: Ulcer/ Wound - R lateral ankle Wound Measurements and Assessment WC - Nurse 1 - General Ulcer Measurement Start: 08/17/17 15:16 Freq: Status: Active Protocol: Activity Type Activity Date Activity User E-Sign Co-Sign Detail Recorded Client Recorded Date Recorded By Document 09/14/17 15:07 DL [id number] 09/14/17 15:12 DL 09/14/17 15:07 Wound Center Nurse 1 [Ulcer Assessment Protocol: WC.WD.LOC] #3 RT LATERAL ANKLE -Current Size (cm) - Length 0.2 -Current Size (cm) - Width 0.2 -Current Size (cm) - Depth 0.1 -Total Square Cm 0.04 -Photo Taken No -Exudate Amt Small (1-33%) -Exudate Type Serosanguineous -Wound Margin Flat & Intact -Granulation Amt Small (1-33%) -Granulation Quality [place] -Necrosis Amt Small (1-33%) -Necrotic Tissue Type Adherent Slough -Structure Exposed N/A -Texture (Risa-wound Skin Appearance) No Abnormality -Moisture (Risa-wound Skin Appearance No Abnormality ) -Color (Risa-wound Skin Appearance) No Abnormality Rubor -Temperature (Risa-wound Skin No Abnormality Appearance) (Pt Warm) -Ulcer Cleansing Rinsed/ Irrigated with Saline -Foul Odor after Cleansing No -Anesthetic Used 4% Lidocaine Solution [Edema Assessment] -Right Calf (cm) 28.6 -Right Ankle (cm) 16.5 WC - Nurse 2 - General Ulcer CM Notes Start: 08/17/17 15:16 Freq: Status: Active Protocol: Activity Type Activity Date Activity User E-Sign Co-Sign Detail Recorded Client Recorded Date Recorded By Document 09/14/17 16:01 MW [id number] 09/14/17 16:03 MW 09/14/17 16:01 Wound Center Nurse 2 [Procedure/Treatment] #3 RT LATERAL ANKLE -Time 16:01 -Correct Patient Yes -Correct Side, Site, Position Yes -Correct Procedure Yes -Procedure Performed Yes -Type of Procedure Debridement -Clinical Debridement Subcutaneous -Post Debridement Size (cm) - Length 0.3 -Post Debridement Size (cm) - Width 0.3 -Post Debridement Size (cm) - Depth 0.1 -Total Square Cm 0.09 -Wound/Ulcer Outcome Not Healed -Ulcer Cleansing Rinsed/ Irrigated with Saline -Foul Odor after Cleansing No -Bioengineered Tissue No -Cetacaine [place] No -Bleeding Controlled with Pressure -Treatment Response Procedure Tolerated Well [See Physician Procedure note for Specifics] Pain Scale: 0-10 Numeric [Pain] -Is Patient Pain Free? Yes Debridement Note Post-Debridement Measurements/Treatment WC - Nurse 2 - General Ulcer CM Notes Start: 08/17/17 15:16 Freq: Status: Active Protocol: Activity Type Activity Date Activity User E-Sign Co-Sign Detail Recorded Client Recorded Date Recorded By Document 08/17/17 15:42 MW [id number] 08/17/17 15:47 MW Document 08/24/17 15:36 MW [id number] 08/24/17 15:42 MW Document 08/31/17 16:31 MW [id number] 08/31/17 16:32 MW Document 09/07/17 15:23 MW [id number] 09/07/17 15:24 MW Document 09/14/17 16:01 MW [id number] 09/14/17 16:03 MW 08/17/17 08/24/17 08/31/17 15:42 15:36 16:31 Wound Center Nurse 2 #3 RT LATERAL ANKLE -Time 15:42 15:37 16:31 -Correct Patient Yes Yes Yes -Correct Side, Site, Position Yes Yes Yes -Correct Procedure Yes Yes Yes -Procedure Performed Yes Yes Yes -Type of Procedure Debridement Debridement Debridement -Clinical Debridement Subcutaneous Subcutaneous Subcutaneous -Post Debridement Size (cm) - Length 1.2 1.1 0.8 -Post Debridement Size (cm) - Width 1.2 0.7 0.7 -Post Debridement Size (cm) - Depth 0.1 0.1 0.1 -Total Square Cm 1.44 0.77 0.56 -Wound/Ulcer Outcome Not Healed Not Healed Not Healed -Ulcer Cleansing Rinsed/ Rinsed/ Rinsed/ Irrigated with Irrigated with Irrigated with Saline Saline Saline -Foul Odor after Cleansing No No No -Bioengineered Tissue No No No -Cetacaine [place] No No No -Bleeding Controlled with Pressure Pressure Pressure -Treatment Response Procedure Procedure Procedure Tolerated Well Tolerated Well Tolerated Well Pain Scale: 0-10 Numeric Is Patient Pain Free? Yes Yes Yes 09/07/17 09/14/17 15:23 16:01 Wound Center Nurse 2 #3 RT LATERAL ANKLE -Time 15:24 16:01 -Correct Patient Yes Yes -Correct Side, Site, Position Yes Yes -Correct Procedure Yes Yes -Procedure Performed Yes Yes -Type of Procedure Debridement Debridement -Clinical Debridement Subcutaneous Subcutaneous -Post Debridement Size (cm) - Length 0.5 0.3 -Post Debridement Size (cm) - Width 0.4 0.3 -Post Debridement Size (cm) - Depth 0.1 0.1 -Total Square Cm 0.20 0.09 -Wound/Ulcer Outcome Not Healed Not Healed -Ulcer Cleansing Rinsed/ Rinsed/ Irrigated with Irrigated with Saline Saline -Foul Odor after Cleansing No No -Bioengineered Tissue No No -Cetacaine [place] No No -Bleeding Controlled with Pressure Pressure -Treatment Response Procedure Procedure Tolerated Well Tolerated Well Pain Scale: 0-10 Numeric Is Patient Pain Free? Yes Yes Wound debrided: R lateral ankle Laterality: Right Wound Grade/Stage: Full thickness VLU Type of Debridement: Excisional debridement Anesthesia Used: 4% Lidocaine Solution Depth: Down to and including healthy tissue, in the subcutaneous layer Percentage of wound debrided: 100 Instrument Used: 3mm curette Tissue Removed: fibrous slough Severity: Fat Layer Exposed Amount of bleeding with debridement: Mild Bleeding Controlled with: Pressure, Compression and gauze Patient tolerated procedure well Assessment/Plan Active Problems Non-pressure chronic ulcer of right ankle with fat layer exposed (Acute) Venous insufficiency (chronic) (peripheral) (Chronic) I87.2 Assessment: See diagnoses Plan: SQ/excisional debridement R lateral ankle ulcer as above. Moderate spandagrip. No debridement elsewhere--all other areas previously open are epithelialized and have healed. Area continues to improve. Cont medihoney gel BID followed by dry gauze or optifoam gentle. Monitor for redness, pus, malodor, warmth, inc pain, swelling as well as N/V/F/C and go to the ED with these. Return in 1 week, call with questions. Pt to f/u with Dr. Gallego as scheduled.
== END 2017-09-15 23:59 ==
LOC: WC 15:00
PROVIDERS: Family Provider Preventive Medicine Occupational Medicine; PCP Preventive Medicine Occupational Medicine; Visit Provider Podiatrist Foot & Ankle Surgery
DX: I87.2 Venous insufficiency (chronic) (peripheral) (principal); L97.312 Non-pressure chronic ulcer of right ankle with fat layer exposed; M79.89 Other specified soft tissue disorders
CPT/HCPCS: 11042

== ENCOUNTER 2017-09-21 14:59 | Outpatient (RCR) | payer MEDICARE, SELFPAY ==
[2017-09-14 15:07] VITALS: BP 187/84
[2017-09-16 00:48] VITALS: PULSE 73; RESP 16; TEMP 36.3
[2017-09-21 15:01] VITALS: BP 146/68; PULSE 73; RESP 16; TEMP 36; BMI 25.7
--- NOTE | 2017-09-21 16:20 | PCM.WC.PN ---
(1) Non-pressure chronic ulcer of right ankle with fat layer exposed Status: Resolved Current Visit: Yes Code(s): L97.312 - Non-pressure chronic ulcer of right ankle with fat layer exposed (2) Venous insufficiency (chronic) (peripheral) Status: Chronic Current Visit: Yes Comment: I87.2 Type of Wound Date of Service: 09/21/17 Chief Complaint: R ankle ulcers History of Wound: R ankle ulcers present for about 1 month, treating with Bactroban topically (completed) as well as an unknown PO antibiotic. Notes improvement since starting this, but her sheeter operator, Dr. Navas, recommended she follow up here. Pt is not diabetic, does not smoke, sleeps flat at night, but admits to frequently standing in one place or sitting with her legs down. Has a history of hypertension, but no other systemic medical problems that she knows of--specifically denies autoimmune diseases. Denies redness, pus, malodor, warmth. Minimal pain and drainage. Does have swelling of both legs that is mild. Unsure how the ulcers started, but states she developed a rash that was treated successfully with prednisone and then developed these ulcerations. 07/06--R daly and R achilles ulcers improved with the use of medihoney hydrogel sheets (Santyl too expensive). R lateral ankle ulcer measuring larger. Plan for biopsy today of the R lateral ankle ulcer given non-healing and measuring larger as well as referral to dermatology given pt's complaint of new spots. 07/13--R daly and R achilles ulcers improved with the use of medihoney. R lateral ankle ulcer improved. Biopsy negative for malignancy. Art study normal. Venous study reveals vein incompetence. Referral to Dr. Gallego. Will increase compression. 07/20--R daly healed and R achilles ulcer improved with the use of medihoney. R lateral ankle ulcer stable. Venous study reveals vein incompetence. Referral to Dr. Gallego. Denies s/s of acute bacterial infection. 07/27--R daly healed and R achilles ulcer healed with the use of medihoney. R lateral ankle ulcer improved. Venous study reveals vein incompetence. Referral to Dr. Gallego provided last week. Denies s/s of acute bacterial infection. 08/03--R daly healed and R achilles ulcer healed with the use of medihoney. R lateral ankle ulcer improved. Venous study reveals vein incompetence. Referral to Dr. Gallego provided previously. Denies s/s of acute bacterial infection. She has also seen a network support analyst recently. 08/17/17--R daly healed and R achilles ulcer healed with the use of medihoney. R lateral ankle ulcer improved. Venous study reveals vein incompetence. Referral to Dr. Gallego provided previously--has appointment tomorrow. Denies s/s of acute bacterial infection. She has also seen a network support analyst recently. 08/24--R daly healed and R achilles ulcer healed with the use of medihoney. R lateral ankle ulcer improved. Venous study reveals vein incompetence. Referral to Dr. Gallego provided previously--pt saw him and is going to have a repeat venous duplex (laying and then standing) in 3 months. Denies s/s of acute bacterial infection. She has also seen a network support analyst recently. 08/31--R daly healed and R achilles ulcer healed with the use of medihoney. R lateral ankle ulcer improved. Venous study reveals vein incompetence. Referral to Dr. Gallego provided previously--pt saw him and is going to have a repeat venous duplex (laying and then standing) in 3 months. Denies s/s of acute bacterial infection. She has also seen a network support analyst recently. 09/07--R lateral ankle ulcer improved with medihoney BID. Denies s/s of acute bacterial infection. 09/14--R lateral ankle ulcer improved with medihoney BID. Denies s/s of acute bacterial infection. 09/21--All ulcerations have healed with the use of Medihoney BID. Denies s/s of acute bacterial infection. Has appt to go back to see Dr. Gallego in 6 weeks. Progress of Wound: R daly healed and R achilles healed, R lateral ankle ulcer healed as well. - Physical Exam Vital Signs Temp Pulse Resp BP 96.8 F L 73 16 146/68 H 09/21/17 15:01 09/21/17 15:01 09/21/17 15:01 09/21/17 15:01 General: Alert, Oriented x3, Cooperative, No apparent distress Skin: No breakdown, Ulcer/ Wound - Previously ulcerated area R lateral ankle covered with epithelial tissue and has healed. No s/s of acute bacterial infection noted. Wound Measurements and Assessment - Nurse 1 - General Ulcer Measurement Start: 09/21/17 15:01 Freq: Status: Active Protocol: Activity Type Activity Date Activity User E-Sign Co-Sign Detail Recorded Client Recorded Date Recorded By Document 09/21/17 15:01 DL [id number] 09/21/17 15:06 DL 09/21/17 15:01 Wound Center Nurse 1 [Ulcer Assessment Protocol: [place].WD.LOC] #3 RT LATERAL ANKLE -Current Size (cm) - Length 0.1 -Current Size (cm) - Width 0.1 -Current Size (cm) - Depth 0.1 -Total Square Cm 0.01 -Photo Taken Yes -Exudate Amt Small (1-33%) -Exudate Type Serosanguineous -Wound Margin Flat & Intact -Granulation Amt Large (67-100%) -Granulation Quality [place] -Necrosis Amt None Present (0 %) -Structure Exposed N/A -Texture (Risa-wound Skin Appearance) Scarring -Moisture (Risa-wound Skin Appearance No Abnormality ) -Color (Risa-wound Skin Appearance) No Abnormality -Temperature (Risa-wound Skin No Abnormality Appearance) (Pt Warm) -Tenderness on Palpation (Risa-wound No Skin Appearance) -Ulcer Cleansing Rinsed/ Irrigated with Saline -Foul Odor after Cleansing No -Anesthetic Used 4% Lidocaine Solution [Edema Assessment] -Right Calf (cm) 28.5 -Point of Measurement (cm from the 16.5 medial instep) - Nurse 2 - General Ulcer CM Notes Start: 09/21/17 15:01 Freq: Status: Active Protocol: Activity Type Activity Date Activity User E-Sign Co-Sign Detail Recorded Client Recorded Date Recorded By Document 09/21/17 15:23 MW [id number] 09/21/17 15:26 MW 09/21/17 15:23 Wound Center Nurse 2 [Procedure/Treatment] #3 RT LATERAL ANKLE -Time 15:24 -Correct Patient Yes -Correct Side, Site, Position Yes -Correct Procedure Yes -Procedure Performed No -Post Debridement Size (cm) - Length 0 -Post Debridement Size (cm) - Width 0 -Post Debridement Size (cm) - Depth 0 -Total Square Cm 0 -Wound/Ulcer Outcome Healed- Epithelialized -Ulcer Cleansing Rinsed/ Irrigated with Saline -Foul Odor after Cleansing No -Bioengineered Tissue No -Bleeding Controlled with NA -Treatment Response Procedure Tolerated Well [See Physician Procedure note for Specifics] Pain Scale: 0-10 Numeric [Pain] -Is Patient Pain Free? Yes Debridement Note Post-Debridement Measurements/Treatment WC - Nurse 2 - General Ulcer CM Notes Start: 09/21/17 15:01 Freq: Status: Active Protocol: Activity Type Activity Date Activity User E-Sign Co-Sign Detail Recorded Client Recorded Date Recorded By Document 09/21/17 15:23 MW [id number] 09/21/17 15:26 MW 09/21/17 15:23 Wound Center Nurse 2 #3 RT LATERAL ANKLE -Time 15:24 -Correct Patient Yes -Correct Side, Site, Position Yes -Correct Procedure Yes -Procedure Performed No -Post Debridement Size (cm) - Length 0 -Post Debridement Size (cm) - Width 0 -Post Debridement Size (cm) - Depth 0 -Total Square Cm 0 -Wound/Ulcer Outcome Healed- Epithelialized -Ulcer Cleansing Rinsed/ Irrigated with Saline -Foul Odor after Cleansing No -Bioengineered Tissue No -Bleeding Controlled with NA -Treatment Response Procedure Tolerated Well Pain Scale: 0-10 Numeric Is Patient Pain Free? Yes No debridement was completed today Assessment/Plan Active Problems Venous insufficiency (chronic) (peripheral) (Chronic) I87.2 Assessment: See diagnoses Plan: Exam. A total of 15 minutes was spent [id number] with the patient, and over half of that time was spent on counseling, coordination of care, and discussing her diagnoses. All areas have healed. Cont medihoney and optifoam gentle for 1 more week BID. Then, start protective ointment such as aquaphor BID to all healed areas indefinitely. Monitor for recurrence of the ulcerations. No open wounds on the lower extremities, return here prn. Pt to f/u with Dr. Gallego as scheduled.
--- NOTE | 2017-09-21 16:23 | PN.PCM_ITS ---
(1) Non-pressure chronic ulcer of right ankle with fat layer exposed Status: Resolved Current Visit: Yes Code(s): L97.312 - Non-pressure chronic ulcer of right ankle with fat layer exposed (2) Venous insufficiency (chronic) (peripheral) Status: Chronic Current Visit: Yes Comment: I87.2 Type of Wound Date of Service: 09/21/17 Chief Complaint: R ankle ulcers History of Wound: R ankle ulcers present for about 1 month, treating with Bactroban topically (completed) as well as an unknown PO antibiotic. Notes improvement since starting this, but her facility operations manager, Dr. Navas, recommended she follow up here. Pt is not diabetic, does not smoke, sleeps flat at night, but admits to frequently standing in one place or sitting with her legs down. Has a history of hypertension, but no other systemic medical problems that she knows of--specifically denies autoimmune diseases. Denies redness, pus, malodor , warmth. Minimal pain and drainage. Does have swelling of both legs that is mild. Unsure how the ulcers started, but states she developed a rash that was treated successfully with prednisone and then developed these ulcerations. --R daly and R achilles ulcers improved with the use of medihoney hydrogel sheets (Santyl too expensive). R lateral ankle ulcer measuring larger. Plan for biopsy today of the R lateral ankle ulcer given non-healing and measuring larger as well as referral to dermatology given pt's complaint of new spots. 07/13--R daly and R achilles ulcers improved with the use of medihoney. R lateral ankle ulcer improved. Biopsy negative for malignancy. Art study normal. Venous study reveals vein incompetence. Referral to Dr. Gallego. Will increase compression. 07/20--R daly healed and R achilles ulcer improved with the use of medihoney. R lateral ankle ulcer stable. Venous study reveals vein incompetence. Referral to Dr. Gallego. Denies s/s of acute bacterial infection. 07/27--R daly healed and R achilles ulcer healed with the use of medihoney. R lateral ankle ulcer improved. Venous study reveals vein incompetence. Referral to Dr. Gallego provided last week. Denies s/s of acute bacterial infection. 08/03--R daly healed and R achilles ulcer healed with the use of medihoney. R lateral ankle ulcer improved. Venous study reveals vein incompetence. Referral to Dr. Gallego provided previously. Denies s/s of acute bacterial infection. She has also seen a grant writer recently. 08/17/17--R daly healed and R achilles ulcer healed with the use of medihoney. R lateral ankle ulcer improved. Venous study reveals vein incompetence. Referral to Dr. Gallego provided previously--has appointment tomorrow. Denies s/s of acute bacterial infection. She has also seen a grant writer recently. 08/24--R daly healed and R achilles ulcer healed with the use of medihoney. R lateral ankle ulcer improved. Venous study reveals vein incompetence. Referral to Dr. Gallego provided previously--pt saw him and is going to have a repeat venous duplex ( laying and then standing) in 3 months. Denies s/s of acute bacterial infection. She has also seen a grant writer recently. 08/31--R daly healed and R achilles ulcer healed with the use of medihoney. R lateral ankle ulcer improved. Venous study reveals vein incompetence. Referral to Dr. Gallego provided previously--pt saw him and is going to have a repeat venous duplex ( laying and then standing) in 3 months. Denies s/s of acute bacterial infection. She has also seen a grant writer recently. 09/07--R lateral ankle ulcer improved with medihoney BID. Denies s/s of acute bacterial infection. --R lateral ankle ulcer improved with medihoney BID. Denies s/s of acute bacterial infection. 09/21--All ulcerations have healed with the use of Medihoney BID. Denies s/s of acute bacterial infection. Has appt to go back to see Dr. Gallego in 6 weeks. Progress of Wound: R daly healed and R achilles healed, R lateral ankle ulcer healed as well. - Physical Exam Vital Signs Temp Pulse Resp BP 96.8 F L 73 16 146/68 H 09/21/17 15:01 09/21/17 15:01 09/21/17 15:01 09/21/17 15:01 General: Alert, Oriented x3, Cooperative, No apparent distress Skin: No breakdown, Ulcer/ Wound - Previously ulcerated area R lateral ankle covered with epithelial tissue and has healed. No s/s of acute bacterial infection noted. Wound Measurements and Assessment - Nurse 1 - General Ulcer Measurement Start: 09/21/17 15:01 Freq: Status: Active Protocol: Activity Type Activity Date Activity User E-Sign Co-Sign Detail Recorded Client Recorded Date Recorded By Document 09/21/17 15:01 DL [id number] 09/21/17 15:06 DL 09/21/17 15:01 Wound Center Nurse 1 [Ulcer Assessment Protocol: [place].WD.LOC] #3 RT LATERAL ANKLE -Current Size (cm) - Length 0.1 -Current Size (cm) - Width 0.1 -Current Size (cm) - Depth 0.1 -Total Square Cm 0.01 -Photo Taken Yes -Exudate Amt Small (1-33%) -Exudate Type Serosanguineous -Wound Margin Flat & Intact -Granulation Amt Large (67-100%) -Granulation Quality [place] -Necrosis Amt None Present (0 %) -Structure Exposed N/A -Texture (Risa-wound Skin Appearance) Scarring -Moisture (Risa-wound Skin Appearance No Abnormality ) -Color (Risa-wound Skin Appearance) No Abnormality -Temperature (Risa-wound Skin No Abnormality Appearance) (Pt Warm) -Tenderness on Palpation (Risa-wound No Skin Appearance) -Ulcer Cleansing Rinsed/ Irrigated with Saline -Foul Odor after Cleansing No -Anesthetic Used 4% Lidocaine Solution [Edema Assessment] -Right Calf (cm) 28.5 -Point of Measurement (cm from the 16.5 medial instep) - Nurse 2 - General Ulcer CM Notes Start: 09/21/17 15:01 Freq: Status: Active Protocol: Activity Type Activity Date Activity User E-Sign Co-Sign Detail Recorded Client Recorded Date Recorded By Document 09/21/17 15:23 MW [id number] 09/21/17 15:26 MW 09/21/17 15:23 Wound Center Nurse 2 [Procedure/Treatment] #3 RT LATERAL ANKLE -Time 15:24 -Correct Patient Yes -Correct Side, Site, Position Yes -Correct Procedure Yes -Procedure Performed No -Post Debridement Size (cm) - Length 0 -Post Debridement Size (cm) - Width 0 -Post Debridement Size (cm) - Depth 0 -Total Square Cm 0 -Wound/Ulcer Outcome Healed- Epithelialized -Ulcer Cleansing Rinsed/ Irrigated with Saline -Foul Odor after Cleansing No -Bioengineered Tissue No -Bleeding Controlled with NA -Treatment Response Procedure Tolerated Well [See Physician Procedure note for Specifics] Pain Scale: 0-10 Numeric [Pain] -Is Patient Pain Free? Yes Debridement Note Post-Debridement Measurements/Treatment WC - Nurse 2 - General Ulcer CM Notes Start: 09/21/17 15:01 Freq: Status: Active Protocol: Activity Type Activity Date Activity User E-Sign Co-Sign Detail Recorded Client Recorded Date Recorded By Document 09/21/17 15:23 MW [id number] 09/21/17 15:26 MW 09/21/17 15:23 Wound Center Nurse 2 #3 RT LATERAL ANKLE -Time 15:24 -Correct Patient Yes -Correct Side, Site, Position Yes -Correct Procedure Yes -Procedure Performed No -Post Debridement Size (cm) - Length 0 -Post Debridement Size (cm) - Width 0 -Post Debridement Size (cm) - Depth 0 -Total Square Cm 0 -Wound/Ulcer Outcome Healed- Epithelialized -Ulcer Cleansing Rinsed/ Irrigated with Saline -Foul Odor after Cleansing No -Bioengineered Tissue No -Bleeding Controlled with NA -Treatment Response Procedure Tolerated Well Pain Scale: 0-10 Numeric Is Patient Pain Free? Yes No debridement was completed today Assessment/Plan Active Problems Venous insufficiency (chronic) (peripheral) (Chronic) I87.2 Assessment: See diagnoses Plan: Exam. A total of 15 minutes was spent [id number] with the patient, and over half of that time was spent on counseling, coordination of care, and discussing her diagnoses. All areas have healed. Cont medihoney and optifoam gentle for 1 more week BID. Then, start protective ointment such as aquaphor BID to all healed areas indefinitely. Monitor for recurrence of the ulcerations. No open wounds on the lower extremities, return here prn. Pt to f/ u with Dr. Gallego as scheduled.
== END 2017-10-13 23:59 ==
LOC: WC 14:59
PROVIDERS: Family Provider Preventive Medicine Occupational Medicine; PCP Preventive Medicine Occupational Medicine; Visit Provider Podiatrist Foot & Ankle Surgery
DX: I87.2 Venous insufficiency (chronic) (peripheral) (principal); L97.312 Non-pressure chronic ulcer of right ankle with fat layer exposed; I10 Essential (primary) hypertension; M79.89 Other specified soft tissue disorders
CPT/HCPCS: 99212; G0463

== ENCOUNTER → 2018-12-28 | Outpatient (CLI) | payer MEDICARE, SELFPAY ==
[2018-12-28 09:40] VITALS: BMI 28.5
[2018-12-28 12:46] LABS: AST(SGOT) 20 U/L (15-37); Alanine Aminotransfer ALT/SGPT 26 U/L (13-56); Albumin, Serum 3.9 g/dL (3.2-5.0); Alkaline Phosphatase 93 U/L (45-117); Anion Gap 6 (5-15); BUN 16 mg/dL (7-18); BUN/Creat Ratio 28.9 RATIO (10-20); Calcium,Total 8.9 mg/dL (8.5-10.1); Chloride 100 mmol/L (98-107); Cholesterol 200 mg/dL (200); Creatinine, Serum 0.55 mg/dL (0.55-1.02); EST Glomerular Filtration Rate 113 mL/min (>60); Est Glom Filt Rate - Afr Amer 136 mL/min (>60); Glucose 95 mg/dL (74-106); High Density Lipoprotein 67 mg/dL; Potassium 3.2 mmol/L (3.5-5.1); Protein, Total 7.9 g/dL (6.4-8.2); Sodium Level 135 mmol/L (136-145); Triglycerides 171 mg/dL; Very Low Density Lipoprotein 34 mg/dL (5-40)
== END | disposition home or self-care (01) ==
PROVIDERS: Family Provider Preventive Medicine Occupational Medicine; PCP Family Medicine; Visit Provider Family Medicine
DX: E78.5 Hyperlipidemia, unspecified (principal); I10 Essential (primary) hypertension
CPT/HCPCS: 36415; 80053; 80061

== ENCOUNTER → 2021-01-08 10:54 | Outpatient (CLI) | payer MEDICARE, SELFPAY ==
[2021-01-08 10:34] VITALS: BMI 28.5
[2021-01-08 12:29] LABS: ALB/GLOB Ratio 0.9 RATIO (0.9-2.4); AST(SGOT) 21 U/L (15-37); Alanine Aminotransfer ALT/SGPT 23 U/L (13-56); Albumin, Serum 3.7 g/dL (3.2-5.0); Alkaline Phosphatase 93 U/L (45-117); Anion Gap 7 (5-15); BUN 14 mg/dL (7-18); BUN/Creat Ratio 29.6 RATIO (10-20); Calcium,Total 9.4 mg/dL (8.5-10.1); Chloride 101 mmol/L (98-107); Cholesterol 192 mg/dL (200); Creatinine, Serum 0.47 mg/dL (0.55-1.02); EST Glomerular Filtration Rate 134 mL/min (>60); Est Glom Filt Rate - Afr Amer 162 mL/min (>60); Globulin 4.1 g/dL (2.2-4.2); Glucose 97 mg/dL (74-106); High Density Lipoprotein 66 mg/dL; Potassium 3.9 mmol/L (3.5-5.1); Protein, Total 7.8 g/dL (6.4-8.2); Sodium Level 138 mmol/L (136-145); Triglycerides 166 mg/dL; Very Low Density Lipoprotein 33 mg/dL (5-40)
== END ==
PROVIDERS: PCP Family Medicine; Referring Provider Family Medicine; Visit Provider Family Medicine
DX: I10 Essential (primary) hypertension (principal); E78.5 Hyperlipidemia, unspecified
CPT/HCPCS: 36415; 80053; 80061

== ENCOUNTER 2021-10-24 14:18 | Outpatient (CLI) | payer MEDICARE, SELFPAY ==
[2021-10-24 14:20] LABS: Bacteria 0 SEEN /hpf (None Seen); Mucous, Urine 0 SEEN /hpf (<or=2+); Red Blood Cells-Urine 0 SEEN /hpf (0-5); White Blood Cells 0 SEEN /hpf (0-5)
[2021-10-24 15:36] LABS: Color, Urine Yellow (Yellow); Glucose, Dipstick Normal (Normal); Ketone-Dipstick Negative (Negative); Leukocyte Esterase-Dipstick Negative /ul (Negative); Nitrite-Dipstick Negative (Negative); Occult Blood-Urine Negative /ul (Negative); Protein-Dipstick Negative (Negative); Urine Bilirubin Dipstick Negative (Negative); Urine Clarity Clear (Clear); Urine Urobilinogen Normal (Normal)
[2021-10-24 16:07] LABS: Squamous Epithelial Cells - UA 0-5 SEEN /hpf (5-10)
== END 2021-10-24 23:59 | disposition home or self-care (01) ==
LOC: LABSPEC 14:19
PROVIDERS: PCP Family Medicine; Referring Provider Physician Assistant; Visit Provider Physician Assistant
DX: R30.0 Dysuria (principal)
CPT/HCPCS: 81001; 87086; 87088

== ENCOUNTER → 2021-12-31 | Outpatient (CLI) | payer MEDICARE, SELFPAY ==
[2021-12-31 14:32] LABS: White Blood Cells 0 SEEN /hpf (0-5)
[2021-12-31 14:33] LABS: Mucous, Urine 0 SEEN /hpf (<or=2+); Red Blood Cells-Urine 0 SEEN /hpf (0-5)
[2021-12-31 16:58] LABS: AST(SGOT) 21 U/L (15-37); Alanine Aminotransfer ALT/SGPT 24 U/L (13-56); Albumin, Serum 3.9 g/dL (3.2-5.0); Alkaline Phosphatase 86 U/L (45-117); Anion Gap 7 (5-15); BUN 15 mg/dL (7-18); BUN/Creat Ratio 26.8 RATIO (10-20); Calcium,Total 9.4 mg/dL (8.5-10.1); Chloride 104 mmol/L (98-107); Cholesterol 204 mg/dL (200); Creatinine, Serum 0.56 mg/dL (0.55-1.02); EST Glomerular Filtration Rate 110 mL/min (>60); Est Glom Filt Rate - Afr Amer 133 mL/min (>60); Globulin 4.1 g/dL (2.2-4.2); Glucose 113 mg/dL (74-106); High Density Lipoprotein 66 mg/dL; Potassium 3.5 mmol/L (3.5-5.1); Sodium Level 139 mmol/L (136-145); Triglycerides 192 mg/dL; Very Low Density Lipoprotein 38 mg/dL (5-40)
[2021-12-31 17:00] LABS: Color, Urine Straw (Yellow); Glucose, Dipstick Normal (Normal); Ketone-Dipstick Negative (Negative); Leukocyte Esterase-Dipstick Negative /ul (Negative); Nitrite-Dipstick Negative (Negative); Occult Blood-Urine Negative /ul (Negative); Protein-Dipstick Negative (Negative); Urine Bilirubin Dipstick Negative (Negative); Urine Clarity Clear (Clear); Urine Urobilinogen Normal (Normal); Urine pH 6.5 (5.0 - 8.0)
[2021-12-31 17:16] LABS: Bacteria RARE /hpf (None Seen); Squamous Epithelial Cells - UA 0-5 SEEN /hpf (5-10)
== END | disposition home or self-care (01) ==
LOC: BIMLAB 14:31
PROVIDERS: PCP Family Medicine; Referring Provider Family Medicine; Visit Provider Family Medicine
DX: I10 Essential (primary) hypertension (principal); N39.41 Urge incontinence; E78.5 Hyperlipidemia, unspecified
CPT/HCPCS: 36415; 80053; 80061; 81001

== ENCOUNTER → 2023-02-10 | Outpatient (CLI) | payer MEDICARE, SELFPAY ==
[2023-02-10 15:49] LABS: Mucous, Urine 0 SEEN /hpf (<or=2+); Red Blood Cells-Urine 0 SEEN /hpf (0-5)
[2023-02-10 16:23] LABS: Color, Urine Yellow (Yellow); Glucose, Dipstick Normal (Normal); Ketone-Dipstick Negative (Negative); Leukocyte Esterase-Dipstick 500 /ul (Negative); Nitrite-Dipstick Negative (Negative); Occult Blood-Urine 10 /ul (Negative); Protein-Dipstick Negative (Negative); Urine Bilirubin Dipstick Negative (Negative); Urine Clarity Clear (Clear); Urine Urobilinogen Normal (Normal); Urine pH 6.5 (5.0 - 8.0)
[2023-02-10 16:59] LABS: Bacteria RARE /hpf (None Seen); Squamous Epithelial Cells - UA 5-10 SEEN /hpf (5-10); White Blood Cells 0-5 SEEN /hpf (0-5)
== END | disposition home or self-care (01) ==
LOC: LABSPEC 15:20
PROVIDERS: PCP Family Medicine; Referring Provider Physician Assistant Surgical; Visit Provider Physician Assistant Surgical
DX: R30.0 Dysuria (principal)
CPT/HCPCS: 81001; 87086; 87088

== ENCOUNTER 2023-05-25 10:49 | Inpatient (IN) | payer MEDICARE, SELFPAY ==
[2023-05-25] VITALS (22 sets, daily range): BP systolic 107–145; BP diastolic 54–112; PULSE 70–139; RESP 16–30; TEMP 36.1–36.6; O2SAT 88–98; BMI 28.5; BMI 27.4
--- NOTE | 2023-05-25 11:04 | EKG12_ITS ---
Test Reason : SOB Blood Pressure : / mmHG Vent. Rate : 075 BPM Atrial Rate : 075 BPM P-R Int : 190 ms QRS Dur : 100 ms QT Int : 410 ms P-R-T Axes : 073 050 098 degrees QTc Int : 457 ms Sinus rhythm with Premature atrial complexes Nonspecific T wave abnormality Abnormal ECG Confirmed by PRICILA LORD, ANNALISA ([id number]), sound editor ANTONI BOLAÑOS ([id number]) on 05/26/2023 10:59:17 AM Referred By: Confirmed By:ANNALISA MCNULTY MD
--- NOTE | 2023-05-25 11:07 | ED.VIS.DYS ---
HPI History of Present Illness Chief Complaint: Shortness of Breath Informant: patient Associated Symptoms cough Chest Pain: Positive for None Narrative Narrative: 82-year-old female has had cough, congestion, cold-like symptoms for the past 2 to 3 weeks which started getting dyspneic yesterday along with some subjective fevers and soreness in her left anterior inframammary rib cage when she moves and coughs and breathes. Cough is nonproductive. No hemoptysis. No edema in her legs or orthopnea or PND, but when she lies down she coughs more which then makes it harder to breathe. She denies any history of chronic heart or lung disease. She takes no anticoagulants. PE Risk Factors: Negative for Cancer, OCP + Smoking + > 35, Prior DVT or PE, Recent immobilization, Recent surgery or Recent travel [facility] Medical History (Updated 05/25/23 @ 15:[address] Reinier Toney MD) Arthritis Cardiac murmur Chronic back pain Frequent headaches Frequent UTI History of hemorrhoids History of pneumonia History of stomach ulcers Hyperlipemia Hypertension NECK/BACK PAIN Shortness of breath Home Medications aspirin 81 mg tablet,delayed release 81 mg PO DAILY 11/24/16 [History Last Taken Unknown] methylcellulose (laxative) 500 mg tablet (Citrucel) 500 mg PO DAILY 01/08/21 [History Last Taken Unknown] fluticasone propionate 50 mcg/actuation nasal spray,suspension (Flonase Allergy Relief) 2 spray intranasal DAILY #15.8 grams 09/02/21 [Rx Last Taken Unknown] hydrochlorothiazide 12.5 mg tablet 12.5 mg PO DAILY #90 tabs 11/24/22 [Rx Last Taken Unknown] potassium chloride 20 mEq tablet,extended release 20 meq PO DAILY #90 tabs 01/14/23 [Rx Last Taken Unknown] pravastatin 40 mg tablet 40 mg PO DAILY #90 tabs 01/14/23 [Rx Last Taken Unknown] telmisartan 80 mg tablet 80 mg PO DAILY #90 ea 01/14/23 [Rx Last Taken Unknown] amlodipine 10 mg tablet 10 mg PO DAILY #90 tabs 03/23/23 [Rx Last Taken Unknown] Allergy/AdvReac Type Severity Reaction Status Date / Time nitroglycerin Allergy Mild NEEDS Verified 05/25/23 10:51 FOLLOW-UP chlorpheniramine AdvReac Other Verified 05/25/23 10:51 [From Actifed Cold-Allergy] phenylephrine AdvReac Other Verified 05/25/23 10:51 [From Actifed Cold-Allergy] pseudoephedrine AdvReac Other Verified 05/25/23 10:51 [From Actifed Cold-Allergy] triprolidine AdvReac Other Verified 05/25/23 10:51 [From Actifed Cold-Allergy] Family History Mother Diabetes Hypertension CVA (cerebral vascular accident) Father Myocardial infarction, Onset Age: 80 Brother Cancer Surgical History History of appendectomy History of back surgery History of foot surgery History of hysterectomy History of tonsillectomy Social History Smoking Status: Never smoker alcohol intake: never substance use type: does not use what type of physical activity do you participate in: walking frequency: daily ROS ROS ED Constitutional Constitutional ED: Reports chills, fatigue, fever(s), malaise and subjective; Denies body ache(s) or headache(s) Eyes Eyes: Denies change in vision or diplopia ENT ENT ED: Denies rhinorrhea or sore throat Cardiovascular Cardiovascular: Denies chest pain or palpitations Respiratory/Chest Respiratory/Chest: Reports cough, dyspnea and dyspnea on exertion Gastrointestinal Gastrointestinal: Denies abdominal pain, diarrhea, nausea or vomiting Genitourinary Genitourinary ED: Denies dysuria or hematuria Musculoskeletal Musculoskeletal: Denies back pain or neck pain Integumentary Denies abscess or rash Neurologic Neurologic: Denies headache(s), paresthesias or weakness Psychiatric Psychiatric: Denies anxiety or suicidal thoughts EXAM Physical Exam Const Vital Signs: 05/25/23 10:51 05/25/23 11:32 05/25/23 11:58 Temperature 97.2 F L 97.5 F L Temperature Source Temporal Temporal Pulse Rate 73 70 78 Respiratory Rate 16 16 17 Respiratory Effort Respiratory Pattern Normal Blood Pressure 135/67 H 126/85 H Blood Pressure Mean 89 98 Pulse Ox 95 90 Oxygen Delivery Method Room Air Oxygen Flow Rate (L/min) 05/25/23 12:16 05/25/23 12:16 05/25/23 12:59 Temperature Temperature Source Pulse Rate Respiratory Rate Respiratory Effort Short of Breath Respiratory Pattern Blood Pressure Blood Pressure Mean Pulse Ox 88 Oxygen Delivery Method Room Air Room Air Room Air Oxygen Flow Rate (L/min) 05/25/23 13:11 05/25/23 14:53 05/25/23 15:20 Temperature Temperature Source Pulse Rate 139 H 121 H 133 H Respiratory Rate 25 H 20 H 25 H Respiratory Effort Respiratory Pattern Blood Pressure 145/86 H 138/85 H 132/80 H Blood Pressure Mean 105 102 97 Pulse Ox 94 90 94 Oxygen Delivery Method Nasal Cannula Room Air Nasal Cannula Oxygen Flow Rate (L/min) 2 2 Positive well nourished and well developed Constitutional Narrative: Malaised-appearing, no distress General Appearance ED: well developed and NAD HEENT Reports moist mucous membranes normocephalic and atraumatic Eyes PERRL and EOMs intact bilaterally Neck full ROM, no lymphadenopathy, supple and no JVD Resp normal respiratory effort and clear to auscultation bilaterally Cardio regular rate, regular rhythm and no murmurs Rate: Negative for tachycardic GI non-tender and non-distended Auscultation: normoactive bowel sounds Palpation: soft Back/Spine no CVA tenderness General Back: other FROM Extremity normal to inspection and no calf tenderness General Extremety ED: Negative for edema, pulses abnormal or tenderness General Extremity: Negative for edema or pulses abnormal Neuro oriented x3, CN's II-XII intact bilaterally and no sensory deficits noted Sensorium / Orientation: awake and alert Motor Exam: strength 5/5 throughout Skin no rashes or lesions noted and no wounds MDM MDM MDM Narrative Medical decision making narrative: Patient had an outpatient chest x-ray today at urgent care. I reviewed the images as well as the report which I agree with, basically showing what appears to be interstitial abnormalities without acute consolidation. Obtain some basic labs in addition to a troponin and BNP and an EKG. In context of the history, leukocytosis, BNP that is just slightly elevated but probably within normal limits for her age at 82, and an EKG that shows no acute injury pattern, I suspect this is probably infectious in etiology. She was hypoxic at 89% at urgent care which is part of the reason she was sent here. She is doing well at rest here 93-95% on room air. She was given a duo nebulizer treatment, this really helped with her breathing. However, on reevaluation her heart rate is in the 140s. I reevaluated her, she is asymptomatic with this. EKG was repeated. It is narrow complex, same morphology as her prior EKG, the rhythm definitely different, difficult to tell if this is sinus tachycardia versus AVNRT versus rapid A-fib. On the monitor, she has some occasional irregularities and make it look like rapid A-fib. She was given adenosine 6 mg after we discussed the reasons, for diagnostics and possibly for therapeutics to break her out of it if it ended up being AVNRT. She pause, but did not break the rhythm, and on the rhythm strip it is more consistent with atrial fibrillation than anything else. Upon recovering from adenosine she is 140-150. She was given Cardizem 20 mg IV and monitored, and IV Levaquin was started. Her pulse ox went down to 88%, so I started her back on oxygen 2 L, and well into the 90s with that. She is breathing well does not need any assistance. Her heart rate only came down to the 130s. Discussed with cardiology they agree with NOT electro cardioverting her, and since we have already waited several hours post albuterol treatment and she still has A-fib with RVR, starting her on Cardizem gtt and admitting her would be reasonable. Lab Data Attestation: I reviewed the patient's lab results. Labs: Laboratory Results - last 24 hr 05/25/23 05/25/23 11:34 12:13 WBC 13.8 H RBC 3.81 L Hgb 10.7 L Hct 33.7 L MCV 88.5 MCH 28.1 MCHC 31.8 L RDW Std Deviation 43.0 RDW Coeff of Juve 13.2 Plt Count 540 H MPV 8.7 Immature Gran % (Auto) 0.800 Neut % (Auto) 78.7 H Lymph % (Auto) 9.3 L [place] % (Auto) 7.2 Eos % (Auto) 3.1 Baso % (Auto) 0.9 Absolute Neuts (auto) 10.9 H Absolute Lymphs (auto) 1.28 Nucleated RBC % 0 Sodium 135 L Potassium 3.3 L Chloride 99 Carbon Dioxide 30.0 Anion Gap 6 BUN 17 Creatinine 0.67 Est GFR (MDRD) Af Amer 107 Est GFR (MDRD) Non-Af 89 BUN/Creatinine Ratio 25.2 H Glucose 120 H Calcium 9.3 Troponin I High Sens 12 B-Natriuretic Peptide 292.5 H Urine Color Yellow Urine Clarity Clear Urine pH 6.0 Ur Specific [place] 1.010 Urine Protein Negative Urine Glucose (UA) Normal Urine Ketones Negative Urine Occult Blood 10 H Urine Nitrite Negative Urine Bilirubin Negative Urine Urobilinogen Normal Ur Leukocyte Esterase 500 H Urine RBC 0 SEEN Urine WBC 0-5 SEEN Ur Squamous Epith Cells 5-10 SEEN Urine Bacteria 1+ Urine Mucus 0 SEEN Rhythm Strip Rhythm Strip: Sinus Rhythm Rate: 75 Ectopy: PAC(s) EKG Initial EKG: Attestation: I personally reviewed and interpreted this EKG as follows: Interpretation: Sinus Rhythm, No Acute Injury Pattern and Non-Specific ST Changes Prior: No Prior Follow-up EKG: Attestation: I personally reviewed and interpreted this EKG as follows: Interpretation: No Acute Injury Pattern Comments: Narrow complex tachycardia at [address]-T wave abnormalities and unchanged morphology and axis. Prior: Changed Management Discussion w/another healthcare provider: Hospitalist and [employer] Press Operator (cardiology Dr. Almendarez) Critical Care Time Critical Care Time: Yes Critical care time (excluding procedures): 30-74 minutes (36 min), Including time spent:, Discussing w/Patient &/or Family/[employer] League Baseball Player, Discussing w/Consultants, Arranging Admission or Transfer and Performing Direct Patient Care at Bedside Discharge Plan Triage Chief Complaint: Shortness of Breath ED Provider: Reniier Toney Dx/Rx/DC Orders Clinical Impression: Atypical pneumonia, Hypoxemia, Atrial fibrillation with RVR Prescriptions: No Action Citrucel 500 mg tablet 500 mg PO DAILY fluticasone propionate [Flonase Allergy Relief] 50 mcg/actuation spray,suspension 2 spray intranasal DAILY Qty: 15.8 1RF Rx Instructions: administer into each nostril aspirin 81 MG tablet,delayed release (DR/EC) 81 mg PO DAILY hydrochlorothiazide 12.5 mg tablet 12.5 mg PO DAILY Qty: 90 2RF Rx Instructions: Take 1 tablet by mouth daily potassium chloride 20 mEq tablet extended release 20 meq PO DAILY Qty: 90 3RF pravastatin 40 mg tablet 40 mg PO DAILY Qty: 90 3RF telmisartan 80 mg tablet 80 mg PO DAILY Qty: 90 3RF amlodipine 10 mg tablet 10 mg PO DAILY Qty: 90 0RF Primary Care Provider: Jamie Hall Referrals: Jamie Hall DO [Primary Care Provider] -
--- NOTE | 2023-05-25 11:07 | NURSING ---
NO OLD EKGS
[2023-05-25] MEDS: Ipratropium/Albuterol Sulfate 3 ML AMPUL.NEB INHALATION (11:31)
[2023-05-25 11:42] LABS: Absolute Lymphocyte Count 1.28 X10^3/uL (0.83-4.51); Absolute Neutrophil Count 10.9 X10^3/uL (2.0-7.7); Basophil# 0.13 X10^3/uL; Basophil% 0.9 % (0-1); Eosinophil# 0.43 X10^3/uL; Eosinophils% 3.1 % (0-5); Hematocrit 33.7 % (37-47); Hemoglobin 10.7 g/dL (12.0-15.0); Lymphocyte # 1.28 X10^3/ul (0.83-4.51); Lymphocyte % 9.3 % (19-41); Mean Corp Hgb Conc 31.8 g/dL (32-36); Mean Corpuscular Hgb 28.1 pg (27.0-32.0); Mean Corpuscular Volume 88.5 fL (81-99); Mean Platelet Vol. 8.7 fl (6.2-12.0); Monocyte# 0.99 X10^3/uL; Monocyte% 7.2 % (0-10); NRBC Flagged by Analyzer 0 % (0-5); Neutrophil # 10.88 X10^3/uL (2.7-7.7); Neutrophil % 78.7 % (47-70); Platelet Count 540 K/mm3 (150-450); RBC Distribution Width CV 13.2 % (11.6-14.6); Red Blood Count 3.81 M/mm3 (4.2-5.4); White Blood Count 13.8 K/mm3 (4.4-11.0)
[2023-05-25 12:02] LABS: BNP,B-Type NATRIURETIC PEPTIDE 292.5 pg/mL (0-100)
[2023-05-25 12:03] LABS: Anion Gap 6 (5-15); BUN 17 mg/dL (7-18); BUN/Creat Ratio 25.2 RATIO (10-20); Calcium,Total 9.3 mg/dL (8.5-10.1); Chloride 99 mmol/L (98-107); Creatinine, Serum 0.67 mg/dL (0.55-1.02); EST Glomerular Filtration Rate 89 mL/min (>60); Est Glom Filt Rate - Afr Amer 107 mL/min (>60); Glucose 120 mg/dL (74-106); Potassium 3.3 mmol/L (3.5-5.1); Sodium Level 135 mmol/L (136-145); Troponin-I HS 12 pg/mL (3.0-54.0)
[2023-05-25 12:21] LABS: Mucous, Urine 0 SEEN /hpf (<or=2+); Red Blood Cells-Urine 0 SEEN /hpf (0-5)
[2023-05-25 12:30] LABS: Color, Urine Yellow (Yellow); Glucose, Dipstick Normal (Normal); Ketone-Dipstick Negative (Negative); Leukocyte Esterase-Dipstick 500 /ul (Negative); Nitrite-Dipstick Negative (Negative); Occult Blood-Urine 10 /ul (Negative); Protein-Dipstick Negative (Negative); Urine Bilirubin Dipstick Negative (Negative); Urine Clarity Clear (Clear); Urine Urobilinogen Normal (Normal)
[2023-05-25 12:50] LABS: Bacteria 1+ /hpf (None Seen); Squamous Epithelial Cells - UA 5-10 SEEN /hpf (5-10); White Blood Cells 0-5 SEEN /hpf (0-5)
--- NOTE | 2023-05-25 13:51 | ED.RN ---
hr jumped to 140
[2023-05-25] MEDS: Adenosine 6 MG/2 ML Syringe IV (14:26)
[2023-05-25] MEDS: levoFLOXacin IV 750 MG/150 ML BAG 100 MG IV (14:39)
[2023-05-25] MEDS: dilTIAZem 25 MG/5 ML Vial 20 MG IV BOLUS (14:39)
[2023-05-25] MEDS: Diltiazem 125 MG in Dextrose 5%-Water (100mL Bag) 100 ML CONT INF ×2 (15:44→18:10)
--- NOTE | 2023-05-25 17:09 | EKG12_ITS ---
Test Reason : REPEAT Blood Pressure : / mmHG Vent. Rate : 139 BPM Atrial Rate : 139 BPM P-R Int : 056 ms QRS Dur : 098 ms QT Int : 316 ms P-R-T Axes : 000 060 265 degrees QTc Int : 480 ms Sinus tachycardia with short DC Marked ST abnormality, possible inferolateral subendocardial injury Abnormal ECG Confirmed by PRICILA LORD, ANNALISA ([id number]), industrial editor ANTONI BOLAÑOS ([id number]) on 05/26/2023 10:59:31 AM Referred By: Confirmed By:ANNALISA MCNULTY MD
--- NOTE | 2023-05-25 17:19 | HP.PCM.HOS_ITS ---
HPI - General General Date of Admission: 05/25/23 HPI Narrative MODESTA VAUGHAN, is a 82 F who presents to the hospital with cough, fever, fatigue as well as shortness of breath and hypoxia. She had been feeling unwell for the last several weeks and then developed a fever and chills at home so she went to an urgent care today where they obtained a chest x-ray that showed a left-sided atypical pneumonia and she was also found to be hypoxic down to 88% on room air. They encouraged her to come to the ER where she noted to have some crackles in her left lung so she was given a albuterol treatment however this caused her to go into A-fib with RVR though she cannot feel it. She does not have a previous history of A-fib RVR and she was started on a Cardizem drip in the ED. She denies any chest pain or lightheadedness. [facility] Medical History (Updated 05/25/23 @ 16:27 by Vale Quintero) Arthritis Atrial fibrillation Cardiac murmur Chronic back pain Chronic pain Frequent headaches Frequent UTI History of hemorrhoids History of pneumonia History of stomach ulcers Hyperlipemia Hypertension NECK/BACK PAIN Shortness of breath Home Medications aspirin 81 mg tablet,delayed release 81 mg PO DAILY 11/24/16 [History Last Taken Unknown] methylcellulose (laxative) 500 mg tablet (Citrucel) 500 mg PO DAILY 01/08/21 [History Last Taken Unknown] fluticasone propionate 50 mcg/actuation nasal spray,suspension (Flonase Allergy Relief) 2 spray intranasal DAILY #15.8 grams 09/02/21 [Rx Last Taken Unknown] hydrochlorothiazide 12.5 mg tablet 12.5 mg PO DAILY #90 tabs 11/24/22 [Rx Last Taken Unknown] potassium chloride 20 mEq tablet,extended release 20 meq PO DAILY #90 tabs 01/14/23 [Rx Last Taken Unknown] pravastatin 40 mg tablet 40 mg PO DAILY #90 tabs 01/14/23 [Rx Last Taken Unk nown] telmisartan 80 mg tablet 80 mg PO DAILY #90 ea 01/14/23 [Rx Last Taken Unknown] amlodipine 10 mg tablet 10 mg PO DAILY #90 tabs 03/23/23 [Rx Last Taken Unknown] Allergy/AdvReac Type Severity Reaction Status Date / Time nitroglycerin Allergy Mild NEEDS Verified 05/25/23 10:51 FOLLOW-UP chlorpheniramine AdvReac Other Verified 05/25/23 10:51 [From Actifed Cold-Allergy] phenylephrine AdvReac Other Verified 05/25/23 10:51 [From Actifed Cold-Allergy] pseudoephedrine AdvReac Other Verified 05/25/23 10:51 [From Actifed Cold-Allergy] triprolidine AdvReac Other Verified 05/25/23 10:51 [From Actifed Cold-Allergy] Family History Mother Diabetes Hypertension CVA (cerebral vascular accident) Father Myocardial infarction, Onset Age: 80 Brother Cancer Surgical History History of appendectomy History of back surgery History of foot surgery History of hysterectomy History of tonsillectomy Social History Smoking Status: Never smoker alcohol intake: never substance use type: does not use what type of physical activity do you participate in: walking frequency: daily ROS Constitutional Constitutional: Reports chills, fatigue and fever(s); Denies malaise Eyes Eyes: Denies blurry vision ENT HEENT: Denies headache(s) or nasal discharge Cardiovascular Cardiovascular: Reports dyspnea on exertion; Denies chest pain or syncope Respiratory/Chest Respiratory/Chest: Reports cough; Denies shortness of breath at rest or shortness of breath with exertion Gastrointestinal Gastrointestinal: Denies constipation, diarrhea, nausea or vomiting Genitourinary Genitourinary: Denies dysuria Neurologic Neurologic: Denies focal weakness, numbness or tremor(s) Psychiatric Psychiatric: Denies anxiety or depression Vital Signs Vital Signs Vital Signs: 05/25/23 10:51 05/25/23 11:32 05/25/23 11:58 Temperature 97.2 F L 97.5 F L Temperature Source Temporal Temporal Pulse Rate 73 70 78 Respiratory Rate 16 16 17 Respiratory Effort Respiratory Pattern Normal Blood Pressure 135/67 H 126/85 H Blood Pressure Mean 89 98 Pulse Ox 95 90 Oxygen Delivery Method Room Air Oxygen Flow Rate (L/min) 05/25/23 12:16 05/25/23 12:16 05/25/23 12:59 Temperature Temperature Source Pulse Rate Respiratory Rate Respiratory Effort Short of Breath Respiratory Pattern Blood Pressure Blood Pressure Mean Pulse Ox 88 Oxygen Delivery Method Room Air Room Air Room Air Oxygen Flow Rate (L/min) 05/25/23 13:11 05/25/23 14:53 05/25/23 15:20 Temperature Temperature Source Pulse Rate 139 H 121 H 133 H Respiratory Rate 25 H 20 H 25 H Respiratory Effort Respiratory Pattern Blood Pressure 145/86 H 138/85 H 132/80 H Blood Pressure Mean 105 102 97 Pulse Ox 94 90 94 Oxygen Delivery Method Nasal Cannula Room Air Nasal Cannula Oxygen Flow Rate (L/min) 2 2 05/25/23 15:44 05/25/23 15:46 05/25/23 17:06 Temperature 97.8 F Temperature Source Pulse Rate 130 H 130 H Respiratory Rate 26 H 23 H Respiratory Effort Respiratory Pattern Blood Pressure 132/80 H 132/80 H Blood Pressure Mean 97 97 Pulse Ox 94 94 94 Oxygen Delivery Method Nasal Cannula Oxygen Flow Rate (L/min) 2 Weight Weight: 150 lb 2.157 oz Body Mass Index (BMI) 27.4 Physical Exam Narrative General: Alert, Oriented x3, Cooperative, No apparent distress HEENT: Atraumatic, PERRLA, EOMI, Normocephalic Oral: Moist Mucosa Neck: Supple, No JVD Lungs: Diminished, Normal air movement, No rhonchi, No wheeze, No rales, left- sided crackles Cardiovascular: Irregular rate and rhythm, Normal S1, Normal S2, No murmurs Abdomen: Soft, Non Tender, Non-Distended, No Hepato-splenomegaly Extremities: No edema, Capillary Refill Less than 3 Seconds Skin: No rashes, No breakdown Musculoskeletal: No Tenderness to Palpation of Joints or Extremities Neurological: Cranial nerves II-XII grossly intact, Motor Exam 5/5 strength throughout, Sensory exam intact to light touch and pain Psych/Mental Status: Normal Affect, Appropriate Results Lab / Micro Data 05/25/23 11:34 05/25/23 11:34 Labs: Laboratory Results - last 24 hr 05/25/23 11:34: WBC 13.8 H, RBC 3.81 L, Hgb 10.7 L, Hct 33.7 L, MCV 88.5, MCH 28.1, MCHC 31.8 L, RDW Std Deviation 43.0, RDW Coeff of Juve 13.2, Plt Count 540 H, MPV 8.7, Immature Gran % (Auto) 0.800, Neut % (Auto) 78.7 H, Lymph % (Auto) 9.3 L, [place] % (Auto) 7.2, Eos % (Auto) 3.1, Baso % (Auto) 0.9, Absolute Neuts (auto) 10.9 H, Absolute Lymphs (auto) 1.28, Nucleated RBC % 0, Sodium 135 L, Potassium 3.3 L, Chloride 99, Carbon Dioxide 30.0, Anion Gap 6, BUN 17, Creatinine 0.67, Est GFR (MDRD) Af Amer 107, Est GFR (MDRD) Non-Af 89, BUN/Creatinine Ratio 25.2 H, Glucose 120 H, Calcium 9.3, Troponin I High Sens 12, B-Natriuretic Peptide 292.5 H 05/25/23 12:13: Urine Color Yellow, Urine Clarity Clear, Urine pH 6.0, Ur Specific [place] 1.010, Urine Protein Negative, Urine Glucose (UA) Normal, Urine Ketones Negative, Urine Occult Blood 10 H, Urine Nitrite Negative, Urine Bilirubin Negative, Urine Urobilinogen Normal, Ur Leukocyte Esterase 500 H, Urine RBC 0 SEEN, Urine WBC 0-5 SEEN, Ur Squamous Epith Cells 5-10 SEEN, Urine Bacteria 1+, Urine Mucus 0 SEEN Micro: Microbiology 05/25/23 16:01 Nasal Secretion SARS-CoV-2 Antigen (Rapid) - Final Rhythm Strip Rhythm Strip: Sinus Rhythm Rate: 75 Ectopy: PAC(s) Assessment & Plan Assessment/Plan (1) Atrial fibrillation with RVR: (2) Atypical pneumonia: PLAN: Plan 1. Atypical pneumonia with hypoxia/new onset A-fib with RVR ? I will obtain a sputum culture as well as Legionella and strep urine antigen ? COVID testing here was negative, she did do a home COVID test 2 to 3 weeks ago which was also negative ? We will continue with Levaquin ? Will obtain an echo given her new onset A-fib after the albuterol treatment and placed on a Cardizem drip ? TSH is pending ? If she continues to have A-fib into tomorrow may benefit from anticoagulation otherwise it is possible this could have just been a paroxysmal episode initiated by her albuterol treatment in the ED 2. HTN/HLD ? Blood pressures are stable, will continue with the Cardizem drip and resume her home blood pressure medications ? Continue with pravastatin ? We will monitor her blood pressure make adjustments as necessary DVT: Kenzie 77 minutes was spent on direct patient care, including documentation as well as chart review and collaboration with colleagues Charges/Coding Visit Charges Inpatient E&M: 31032 Init Hosp L3
--- NOTE | 2023-05-25 17:34 | ECHOD_ITS ---
Reason For Study: Afib Procedure This was a 2D Doppler, Color Flow transthoracic echocardiogram. Exam performed portable in patient room. Left Ventricle Normal left ventricle. Left ventricular systolic function is normal. The estimated ejection fraction is 60 %. No regional wall motion abnormalities noted. Right Ventricle Normal RV size. Normal systolic function. Atria Normal left atrium. Normal right atrium. Mitral Valve There is mild mitral annular calcification. Tricuspid Valve Normal tricuspid valve. Mild tricuspid valve insufficiency. Pulmonary artery systolic pressure is 26 mmHg. Aortic Valve Trisinus/trileaflet aortic valve. Mild focal aortic valve calcification. Pulmonic Valve Normal pulmonic valve. Great Vessels Normal aortic root. The pulmonary artery is normal size. Normal inferior vena cava. Pericardium/Pleural No pericardial effusion. MMode/2D Measurements & Calculations LVIDd: 4.6 cm IVSd: 1.1 cm Ao root diam: 3.2 cm LVIDs: 2.2 cm LVPWd: 1.1 cm LA dimension: 3.9 cm RVDd: 2.8 cm FS: 52.2 % LAV(MOD-bp): 56.3 ml LA A4 area: 17.6 cm2 RA A4 area: 13.4 cm2 LAV(MOD-bp) Indexed: 33.3 ml/m2 LAV(MOD-sp2): 63.1 ml LAV(MOD-sp4): 46.6 ml TAPSE: 1.6 cm Time Measurements MV dec time: 0.23 sec Doppler Measurements & Calculations MV E max james: 102.4 cm/sec Lat Peak E' James: 6.9 cm/sec Med Peak E' James: 7.6 cm/sec MV A max james: 82.7 cm/sec E/E' lat: 14.9 E/E' med: 13.6 MV E/A: 1.2 MV V2 max: 127.5 cm/sec MV P1/2t max james: 127.5 cm/sec Ao V2 max: 183.7 cm/sec MV max P.5 mmHg MV P1/2t: 87.7 msec Ao max P.5 mmHg MV V2 mean: 69.6 cm/sec MV mean P.3 mmHg MV dec slope: 426.0 cm/sec2 MV V2 VTI: 38.7 cm MVA(P1/2t): 2.5 cm2 LV V1 max: 126.5 cm/sec MR max james: 396.4 cm/sec PA V2 max: 92.7 cm/sec LV V1 max P.4 mmHg MR max P.8 mmHg TR max james: 234.3 cm/sec TR max P.0 mmHg ECHO/Echo Complete Interpretation Summary Normal left ventricle. Left ventricular systolic function is normal. The estimated ejection fraction is 60 %. Mild focal aortic valve calcification. Pulmonary artery systolic pressure is 26 mmHg. Ordering Physician: Anjum Wilson Performed By: Rajendra Whitley RCS
[2023-05-25 18:07] LABS: Thyroid Stim Hormone (TSH) 8.48 uIU/mL (0.358-3.74)
[2023-05-25] MEDS: Acetaminophen 500 MG Tablet PO (20:18)
[2023-05-25] MEDS: Pravastatin 40 MG Tablet PO (20:19)
[2023-05-25] MEDS: amLODIPine 10 MG Tablet PO (20:19)
[2023-05-25] MEDS: DiphenhydrAMINE 25 MG Capsule PO (20:19)
[2023-05-26] VITALS (12 sets, daily range): BP systolic 124–150; BP diastolic 49–94; PULSE 64–84; RESP 17–20; TEMP 36.6–36.8; O2SAT 89–95
[2023-05-26 06:38] LABS: Absolute Lymphocyte Count 1.77 X10^3/uL (0.83-4.51); Absolute Neutrophil Count 5.9 X10^3/uL (2.0-7.7); Basophil# 0.11 X10^3/uL; Basophil% 1.2 % (0-1); Eosinophil# 0.56 X10^3/uL; Hematocrit 31.9 % (37-47); Hemoglobin 10.2 g/dL (12.0-15.0); Lymphocyte # 1.77 X10^3/ul (0.83-4.51); Lymphocyte % 18.8 % (19-41); Mean Corpuscular Hgb 28.3 pg (27.0-32.0); Mean Corpuscular Volume 88.6 fL (81-99); Mean Platelet Vol. 8.7 fl (6.2-12.0); Monocyte# 0.93 X10^3/uL; Monocyte% 9.9 % (0-10); NRBC Flagged by Analyzer 0 % (0-5); Neutrophil # 5.92 X10^3/uL (2.7-7.7); Platelet Count 552 K/mm3 (150-450); RBC Distribution Width CV 13.2 % (11.6-14.6); RBC Distribution Width SD 42.9 fl (35.1-43.9); White Blood Count 9.4 K/mm3 (4.4-11.0)
[2023-05-26 07:18] LABS: Anion Gap 5 (5-15); BUN 14 mg/dL (7-18); BUN/Creat Ratio 24.5 RATIO (10-20); Calcium,Total 8.9 mg/dL (8.5-10.1); Chloride 103 mmol/L (98-107); Creatinine, Serum 0.57 mg/dL (0.55-1.02); EST Glomerular Filtration Rate 107 mL/min (>60); Est Glom Filt Rate - Afr Amer 130 mL/min (>60); Estimated Creatinine Clearance 33.71 ml/min; Glucose 118 mg/dL (74-106); Potassium 3.1 mmol/L (3.5-5.1); Sodium Level 138 mmol/L (136-145)
--- NOTE | 2023-05-26 08:52 | PCM.PN.HOSP ---
Reason for Visit Reason for Visit: Diagnoses Unspecified atrial fibrillation (05/25/23) Pneumonia, unspecified organism (05/25/23) Subjective Subjective Feeling much better today, no chest pain, shortness of breath much improved Objective Data Objective Data Vital Signs: Vital Signs Temp Pulse Resp BP Pulse Ox O2 Del Method O2 Flow Rate 98 F 82 20 H 140/64 H 94 Nasal Cannula 2 05/26/23 04:00 05/26/23 04:00 05/26/23 04:00 05/26/23 04:00 05/26/23 07:13 05/26/23 07:13 05/26/23 07:13 Oxygen Flow Rate (L/min) 2 Oxygen Delivery Method Nasal Cannula Weight: 68.1 kg Body Mass Index (BMI) 27.4 Intake & Output: Intake and Output for Last 24 Hours 05/24/23 05/25/23 05/26/23 23:59 23:59 23:59 Intake Total 183.58 / 183.58 65.83 / 65.83 Output Total 450 / 450 Balance 183.58 / -66.42 -384.17 / -384.17 Lab / Micro Data 05/26/23 06:09 05/26/23 06:09 Labs: Laboratory Results - last 24 hr 05/25/23 11:34: WBC 13.8 H, RBC 3.81 L, Hgb 10.7 L, Hct 33.7 L, MCV 88.5, MCH 28.1, MCHC 31.8 L, RDW Std Deviation 43.0, RDW Coeff of Juve 13.2, Plt Count 540 H, MPV 8.7, Immature Gran % (Auto) 0.800, Neut % (Auto) 78.7 H, Lymph % (Auto) 9.3 L, [place] % (Auto) 7.2, Eos % (Auto) 3.1, Baso % (Auto) 0.9, Absolute Neuts (auto) 10.9 H, Absolute Lymphs (auto) 1.28, Nucleated RBC % 0, Sodium 135 L, Potassium 3.3 L, Chloride 99, Carbon Dioxide 30.0, Anion Gap 6, BUN 17, Creatinine 0.67, Est GFR (MDRD) Af Amer 107, Est GFR (MDRD) Non-Af 89, BUN/Creatinine Ratio 25.2 H, Glucose 120 H, Calcium 9.3, Troponin I High Sens 12, B-Natriuretic Peptide 292.5 H, TSH 8.48 H 05/25/23 12:13: Urine Color Yellow, Urine Clarity Clear, Urine pH 6.0, Ur Specific [place] 1.010, Urine Protein Negative, Urine Glucose (UA) Normal, Urine Ketones Negative, Urine Occult Blood 10 H, Urine Nitrite Negative, Urine Bilirubin Negative, Urine Urobilinogen Normal, Ur Leukocyte Esterase 500 H, Urine RBC 0 SEEN, Urine WBC 0-5 SEEN, Ur Squamous Epith Cells 5-10 SEEN, Urine Bacteria 1+, Urine Mucus 0 SEEN 05/26/23 06:09: WBC 9.4, RBC 3.60 L, Hgb 10.2 L, Hct 31.9 L, MCV 88.6, MCH 28.3, MCHC 32.0, RDW Std Deviation 42.9, RDW Coeff of Juve 13.2, Plt Count 552 H, MPV 8.7, Immature Gran % (Auto) 1.100 H, Neut % (Auto) 63.0, Lymph % (Auto) 18.8 L, [place] % (Auto) 9.9, Eos % (Auto) 6.0 H, Baso % (Auto) 1.2 H, Absolute Neuts (auto) 5.9, Absolute Lymphs (auto) 1.77, Nucleated RBC % 0, Sodium 138, Potassium 3.1 L, Chloride 103, Carbon Dioxide 30.0, Anion Gap 5, BUN 14, Creatinine 0.57, Estim Creat Clear Calc 33.71, Est GFR (MDRD) Af Amer 130, Est GFR (MDRD) Non-Af 107, BUN/Creatinine Ratio 24.5 H, Glucose 118 H, Calcium 8.9 Micro: Microbiology 05/25/23 Unknown Urine, Random Legionella Antigen - Final 05/25/23 Unknown Urine, Random Streptococcus pneumoniae Antigen (M - Final 05/25/23 16:01 Nasal Secretion SARS-CoV-2 Antigen (Rapid) - Final Rhythm Strip Rhythm Strip: Sinus Rhythm Rate: 75 Ectopy: PAC(s) Physical Exam Narrative General: Alert, oriented, no apparent distress HEENT: Atraumatic, normocephalic Eyes: Anicteric, normal conjunctiva, extraocular movements grossly intact Neck: Supple Respiratory: Some crackles on left side, normal respiratory effort Cardiovascular: Regular rate, intermittent ectopic beats GI: Soft, nontender, nondistended Extremities: No edema Musculoskeletal: Moving all extremities Neuro: No overt focal neurological deficits Skin: No rashes appreciated Psych: Cooperative Assessment & Plan Assessment/Plan (1) Atrial fibrillation with RVR: (2) Atypical pneumonia: PLAN: Plan 1. Atypical pneumonia with hypoxia/new onset A-fib with RVR ? I will obtain a sputum culture as well as Legionella and strep urine antigen ? COVID testing here was negative, she did do a home COVID test 2 to 3 weeks ago which was also negative ? We will continue with Levaquin ? Will obtain an echo given her new onset A-fib after the albuterol treatment and placed on a Cardizem drip ? TSH is pending ? If she continues to have A-fib into tomorrow may benefit from anticoagulation otherwise it is possible this could have just been a paroxysmal episode initiated by her albuterol treatment in the ED -05/26: Transition from Cardizem drip to metoprolol p.o. Patient on telemetry, echocardiogram ordered, this was 1 episode while patient was sick and happened after she received albuterol and resolved quickly, will need to discuss risks and benefits of anticoagulation. TSH is actually elevated, will check free T4. Chest x-ray prior to coming to hospital concerning for left-sided consolidation, chest x-ray here with increased interstitial lung markings without discrete consolidation, questionable nodular density in left upper chest. Patient had BNP of 292 with no previous values, awaiting echo. Urine antigens negative, COVID-negative. Continue Levaquin. Patient feeling much better today and has follow-up with her sanitation lead tomorrow, pending echocardiogram will consider DC with her close outpatient follow-up available and event monitor as well as antibiotics. 2. HTN/HLD ? Blood pressures are stable, will continue with the Cardizem drip and resume her home blood pressure medications ? Continue with pravastatin ? We will monitor her blood pressure make adjustments as necessary -05/26: Metoprolol added and patient now off Cardizem drip. Sinus arrhythmia on telemetry with no further A-fib DVT: Lovenox 36 minutes was spent on direct patient care, including documentation as well as chart review and collaboration with colleagues Charges/Coding Visit Charges Inpatient E&M: 06374 Subs Hosp L2
[2023-05-26 09:34] LABS: T4 Free Direct 1.12 ng/dL (0.76-1.46)
[2023-05-26] MEDS: Aspirin E.C. 81 MG Tablet PO (09:47)
[2023-05-26] MEDS: Potassium Chloride Oral Tablet 20 MEQ 40 MEQ PO (09:47)
[2023-05-26] MEDS: hydroCHLOROthiazide 12.5mg 12.5 MG PO (09:47)
[2023-05-26] MEDS: Losartan Potassium 100 MG Tablet PO (09:48)
[2023-05-26] MEDS: Metoprolol Tartrate 25 MG Tablet 12.5 MG PO (09:49)
[2023-05-26] MEDS: Fluticasone 0.05% 1 SPRAY NASAL.SRY 2 SPRAY NASAL (09:50)
[2023-05-26] MEDS: Enoxaparin 40 MG/0.4 ML Syringe SC (09:55)
--- NOTE | 2023-05-26 10:25 | CASEMGMT ---
RN CM Face to Face with patient for initial transition planning/care coordination assessment. RN CM introduced self and role at [facility]. Patient lying in bed, alert and oriented, daughter at bedside. Patient willing to participate in assessment and is able to answer all questions appropriately. Care providers, pharmacy, and demographics verified. Patient wishes to discharge home, denies need for home health at this time. Patient states she has no further needs or concerns at this time. CM to follow for discharge planning needs that may arise. PCP: Rafael Specialists: [place] office assistant receptionist Preferred Pharmacy: [facility] Insurance: [employer] [facility] Prescription Benefit: yes Living Will/HPOA: yes, daughter Madeline Chavez LNOK: daughter Living Arrangements: Patient lives with daughter in a mobile home with 3 steps and railing to enter the home. Patient states she is independent at home. Transportation: self, daughter DME/HHC: Patient has shower chair, cane, and walker at home. No previous HHC or SNF Disposition Plan: Patient to discharge home with family support and follow-up plans in place. Ester MULLER, RN, CM
--- NOTE | 2023-05-26 11:24 | CT_ITS ---
HISTORY: Possible left lobe lung nodule. TECHNIQUE: Helically acquired images were obtained of the chest without contrast. A radiation dose optimization technique was used for this scan. 451 images. COMPARISON: XR prior day. FINDINGS: LARGE AIRWAYS: Patent. LUNGS: Mild apical and peripheral reticular scarring. 6 mm and 7 mm noncalcified right lower lobe nodules. Mild linear opacities in the right middle and lower lobes with air bronchograms. 9 mm pleural-based irregular opacity in the left upper lobe. 10 mm calcified left upper lobe granuloma. Moderate consolidation in the left lower lobe. PLEURA: Mild left and trace right pleural effusions. HEART/PERICARDIUM: Heart within normal limits in size with coronary artery calcification. Mild pericardial effusion. VESSELS: Thoracic aorta nondilated. Atherosclerosis noted. MEDIASTINUM/BETSEY: Calcified mediastinal nodes. UPPER ABDOMEN: Gastric fundal diverticulum. Colonic diverticulosis. Calcified splenic granulomas. BONES: Osteopenia and degenerative change. CT/Chest without Contrast IMPRESSION: 6-7 mm noncalcified right lower lobe pulmonary nodules, which may be benign or metastatic. Recommend close short-term interval follow-up or 3 month follow-up. 9 mm patchy opacity in the left upper lobe and moderate left lower lobe consolidation, concerning for pneumonia. Mild pleural and pericardial effusions. Mild atelectasis of the right middle and lower lobes. Chronic granulomatous disease of the chest and abdomen. Electronically Signed: Bonnie De La Cruz MD at 12:43 EDT ,
--- NOTE | 2023-05-26 13:00 | CHAPLAIN ---
Type of Pastoral Visit ___ Initial Visit ___ Follow-up Visit ___ On-call Visit ___ General Patient Visit ___ Spiritual Assessment ___ Family Conference ___ Bereavement ___ Rapid Response ___ Code Blue ___ Other (describe below) Pastoral Care Referral From ___ Patient ___ Family ___ Nurse ___ Physician ___ Children'S Nursery Assistant ___ Feed Weigher ___ Other (describe below) Sacrament/Intervention ___ Active listening ___ Anointing ___ Mormon ___ Bereavement ___ Communion ___ Beatris exploration ___ ___ Life review ___ Prayer ___ Reconciliation ___ Sacrament of Sick ___ Supportive presence ___ Wedding ___ Other (describe below) Pastoral Comments a brief hello and offer of support to patient as she was being moved out of room for testing
--- NOTE | 2023-05-26 15:08 | PCM.DC ---
Discharge Instructions Diet Discharge Diet: - (DASH diet) Activity Discharge Activity: Return to Normal Activity Follow Up Care Test Results: Test results from this visit will be discussed in further detail at your follow-up appointment, if applicable. Discharge Plan Admission Admit Date/Time: 05/25/23 17:19 Primary Reason for Your Visit: Shortness of breath Attending Provider: Sivan Martinez Primary Care Provider: Jamie Hall Consulting Providers: Anjum Wilson Instructions Patient Instructions: ED Pneumonia (Adult) Additional Instructions / Restrictions: DISCHARGE INSTRUCTIONS PLEASE READ *Please take this with you to your next doctors appointment* -When you received a breathing treatment for your shortness of breath in the emergency department you experienced an abnormal heart rhythm, atrial fibrillation, with a fast rate into the 140's. This improved with IV medicine and you were transitioned to oral metoprolol which you will be discharged on. -We discussed anticoagulation as well as risks and benefits given single episode of A-fib, ultimately was decided that you would discuss this with your access database developer tomorrow at your follow-up appointment. Imperative that you follow-up with your access database developer as scheduled -We will discharge you with a prescription for an event monitor to monitor for any further atrial fibrillation -A prescription for 4 more days of Levaquin for your pneumonia will be sent to preferred pharmacy on file, Given your age and kidney function, this medicine is taken every 48 hours so you will take a dose 05/27 and 05/29 and will be completed with treatment. You were walked to assess for need for home oxygen and did not require home oxygen on discharge -You are noted to have a small 6-7mm right lower lobe pulmonary nodules, close short-term interval follow-up or 3 month follow up is recommended -Please call your primary care provider's office upon discharge to schedule a hospital follow up within 1 week. -For any concerning signs or symptoms please call 911 or proceed to the nearest emergency department Discharge Orders/Prescriptions Prescriptions: New metoprolol tartrate 25 mg Tablet 12.5 mg PO BID 30 Days Qty: 30 0RF levofloxacin 750 mg tablet 750 mg PO QODAY 4 Days Qty: 2 0RF Rx Instructions: First dose 05/27, second dose 05/29 Continued Citrucel 500 mg tablet 500 mg PO DAILY fluticasone propionate [Flonase Allergy Relief] 50 mcg/actuation spray,suspension 2 spray intranasal DAILY Qty: 15.8 1RF Rx Instructions: administer into each nostril aspirin 81 MG tablet,delayed release (DR/EC) 81 mg PO DAILY hydrochlorothiazide 12.5 mg tablet 12.5 mg PO DAILY Qty: 90 2RF Rx Instructions: Take 1 tablet by mouth daily potassium chloride 20 mEq tablet extended release 20 meq PO DAILY Qty: 90 3RF pravastatin 40 mg tablet 40 mg PO DAILY Qty: 90 3RF telmisartan 80 mg tablet 80 mg PO DAILY Qty: 90 3RF amlodipine 10 mg tablet 10 mg PO DAILY Qty: 90 0RF Other Ambulatory Orders: 30 Day Event Recorder Preventi (Urgent) Timeframe: 1 Day Facility: [facility] - Location: Cardiovascular Services Ordered By: Dr. Sivan Martinez Referrals / Follow Up: Jamie Hall DO [Primary Care Provider] - Within 1 Week Disposition Disposition (needs filled in before D/C Order can be placed): Home, Self Care
--- NOTE | 2023-05-26 15:27 | DS.PCM_ITS ---
Providers Date of Admission: 05/25/23 Date of Discharge: 05/26/23 Primary Care Physician: Dr. Jamie Hall, DO Reason For Visit: NEW ONSET AFIB W/ RVR, PNA, HYPOXEMIA Diagnosis Discharge Diagnosis (1) Atrial fibrillation with RVR: Status: Acute Code(s): I48.91 - Unspecified atrial fibrillation (2) Atypical pneumonia: Status: Acute Code(s): J18.9 - Pneumonia, unspecified organism Plan #Atypical pneumonia with hypoxia #new onset A-fib with RVR- resolved #Sinus arrhythmia #HTN/HLD Medications at Discharge Home Medications aspirin 81 mg tablet,delayed release 81 mg PO DAILY 11/24/16 methylcellulose (laxative) 500 mg tablet (Citrucel) 500 mg PO DAILY 01/08/21 fluticasone propionate 50 mcg/actuation nasal spray,suspension (Flonase Allergy Relief) 2 spray intranasal DAILY #15.8 grams 09/02/21 hydrochlorothiazide 12.5 mg tablet 12.5 mg PO DAILY #90 tabs 11/24/22 potassium chloride 20 mEq tablet,extended release 20 meq PO DAILY #90 tabs 09/07 pravastatin 40 mg tablet 40 mg PO DAILY #90 tabs 01/14/23 telmisartan 80 mg tablet 80 mg PO DAILY #90 ea 01/14/23 amlodipine 10 mg tablet 10 mg PO DAILY #90 tabs 03/23/23 levofloxacin 750 mg tablet 750 mg PO QODAY 4 days #2 tabs 05/26/23 metoprolol tartrate 25 mg tablet 12.5 mg (1/2 x 25 mg) PO BID 30 days #30 tabs 05/26/23 Hospital Course Summary of Care Provided Minutes Spent on Discharge: 32 Hospital Course: 82-year-old female history of hypertension and UTIs presented to [facility] 05/25/2023 with shortness of breath and hypoxia worsening for several weeks. She went to urgent care and had chest x-ray concerning for left pneumonia and had an O2 sat of 88% on room air. Sent to ED, given an albuterol treatment and heart rate flipped into A-fib with RVR, she was given adenosine which slowed down the rate and did reveal underlying A-fib. Given this did not resolve she was started on Cardizem drip and hospitalist consulted for admission. She did have signs and symptoms consistent with pneumonia and was started on Levaquin. She converted back to a nonatrial fibrillation rhythm with normal heart rate and was off Cardizem for a number of hours. Telemetry did show sinus arrhythmia with no further A-fib and she was placed on metoprolol. Echocardiogram ordered and unremarkable. Discussed risks and benefits of anticoagulation given her 1 episode of A-fib and unclear if this is something that she may be experiencing but is just unaware of it. She has a follow-up appointment with her civil design specialist tomorrow and would like to discuss this with them prior to initiating anticoagulation. Did have chest x-ray which was concerning for nodule in lung and follow-up CT recommended so CT scan ordered which showed 6 to 7 mm noncalcified right lower lobe pulmonary nodules which may be benign or not and recommended close short-term interval follow-up in 3 months and also an opacity on the left side concerning for pneumonia. Patient feeling much better on day of discharge after receiving antibiotics, ambulated to assess for home O2 needs and patient did not qualify for oxygen. Discussed discharge with patient and family member at bedside and all questions answered, comfortable with discharge home. Discharge instructions as followed: DISCHARGE INSTRUCTIONS PLEASE READ *Please take this with you to your next doctors appointment* -When you received a breathing treatment for your shortness of breath in the emergency department you experienced an abnormal heart rhythm, atrial fibrillation, with a fast rate into the 140's. This improved with IV medicine and you were transitioned to oral metoprolol which you will be discharged on. -We discussed anticoagulation as well as risks and benefits given single episode of A-fib, ultimately was decided that you would discuss this with your civil design specialist tomorrow at your follow-up appointment. Imperative that you follow-up with your civil design specialist as scheduled -We will discharge you with a prescription for an event monitor to monitor for any further atrial fibrillation -A prescription for 4 more days of Levaquin for your pneumonia will be sent to preferred pharmacy on file, Given your age and kidney function, this medicine is taken every 48 hours so you will take a dose 05/27 and 05/29 and will be completed with treatment. You were walked to assess for need for home oxygen and did not require home oxygen on discharge -You are noted to have a small 6-7mm right lower lobe pulmonary nodules, close short-term interval follow-up or 3 month follow up is recommended -Please call your primary care provider's office upon discharge to schedule a hospital follow up within 1 week. -For any concerning signs or symptoms please call 911 or proceed to the nearest emergency department Physical Exam Narrative General: Alert, oriented, no apparent distress HEENT: Atraumatic, normocephalic Eyes: Anicteric, normal conjunctiva, extraocular movements grossly intact Neck: Supple Respiratory: Some crackles on left side, normal respiratory effort Cardiovascular: Regular rate, intermittent ectopic beats GI: Soft, nontender, nondistended Extremities: No edema Musculoskeletal: Moving all extremities Neuro: No overt focal neurological deficits Skin: No rashes appreciated Psych: Cooperative Weight / BMI Weight Weight: 68.1 kg Body Mass Index (BMI) 27.4 ABG / Lab / Microbiology Data 05/26/23 06:09 05/26/23 06:09 Laboratory: Laboratory Results - last 24 hr 05/25/23 11:34: TSH 8.48 H 05/26/23 06:09: WBC 9.4, RBC 3.60 L, Hgb 10.2 L, Hct 31.9 L, MCV 88.6, MCH 28.3, MCHC 32.0, RDW Std Deviation 42.9, RDW Coeff of Juve 13.2, Plt Count 552 H, MPV 8.7, Immature Gran % (Auto) 1.100 H, Neut % (Auto) 63.0, Lymph % (Auto) 18.8 L, Alcorn % (Auto) 9.9, Eos % (Auto) 6.0 H, Baso % (Auto) 1.2 H, Absolute Neuts (auto) 5.9, Absolute Lymphs (auto) 1.77, Nucleated RBC % 0, Sodium 138, Potassium 3.1 L, Chloride 103, Carbon Dioxide 30.0, Anion Gap 5, BUN 14, Creatinine 0.57, Estim Creat Clear Calc 33.71, Est GFR (MDRD) Af Amer 130, Est GFR (MDRD) Non-Af 107, BUN/Creatinine Ratio 24.5 H, Glucose 118 H, Calcium 8.9, Free T4 1.12 Microbiology: Microbiology 05/25/23 Unknown Urine, Random Legionella Antigen - Final 05/25/23 Unknown Urine, Random Streptococcus pneumoniae Antigen (M - Final 05/25/23 16:01 Nasal Secretion SARS-CoV-2 Antigen (Rapid) - Final Radiography Diagnostic Testing: Radiology Impression Echocardiogram 05/25/23 17:34 Interpretation Summary Normal left ventricle. Left ventricular systolic function is normal. The estimated ejection fraction is 60 %. Mild focal aortic valve calcification. Pulmonary artery systolic pressure is 26 mmHg. Ordering Physician: Anjum Wilson Performed By: Rajendra Whitley RCS Chest CT 05/26/23 11:24 IMPRESSION: 6-7 mm noncalcified right lower lobe pulmonary nodules, which may be benign or metastatic. Recommend close short-term interval follow-up or 3 month follow-up. 9 mm patchy opacity in the left upper lobe and moderate left lower lobe consolidation, concerning for pneumonia. Mild pleural and pericardial effusions. Mild atelectasis of the right middle and lower lobes. Chronic granulomatous disease of the chest and abdomen. Electronically Signed: Bonnie De La Cruz MD at 12:43 EDT , D/C Instructions Discharge Diet: - (DASH diet) Meaningful Use Info Meaningful Use Diagnoses (Choose all that apply): None applicable Discharge Plan Admission Admit Date/Time: 05/25/23 17:19 Primary Reason for Your Visit: Shortness of breath Attending Provider: Sivan Martinez Primary Care Provider: Jamie Hall Consulting Providers: Anjum Wilson Instructions Patient Instructions: ED Pneumonia (Adult) Additional Instructions / Restrictions: DISCHARGE INSTRUCTIONS PLEASE READ *Please take this with you to your next doctors appointment* -When you received a breathing treatment for your shortness of breath in the emergency department you experienced an abnormal heart rhythm, atrial fibrillation, with a fast rate into the 140's. This improved with IV medicine and you were transitioned to oral metoprolol which you will be discharged on. -We discussed anticoagulation as well as risks and benefits given single episode of A-fib, ultimately was decided that you would discuss this with your civil design specialist tomorrow at your follow-up appointment. Imperative that you follow-up with your civil design specialist as scheduled -We will discharge you with a prescription for an event monitor to monitor for any further atrial fibrillation -A prescription for 4 more days of Levaquin for your pneumonia will be sent to preferred pharmacy on file, Given your age and kidney function, this medicine is taken every 48 hours so you will take a dose 05/27 and 05/29 and will be completed with treatment. You were walked to assess for need for home oxygen and did not require home oxygen on discharge -You are noted to have a small 6-7mm right lower lobe pulmonary nodules, close short-term interval follow-up or 3 month follow up is recommended -Please call your primary care provider's office upon discharge to schedule a hospital follow up within 1 week. -For any concerning signs or symptoms please call 911 or proceed to the nearest emergency department Discharge Orders/Prescriptions Prescriptions: New metoprolol tartrate 25 mg Tablet 12.5 mg PO BID 30 Days Qty: 30 0RF levofloxacin 750 mg tablet 750 mg PO QODAY 4 Days Qty: 2 0RF Rx Instructions: First dose 05/27, second dose 05/29 Continued Citrucel 500 mg tablet 500 mg PO DAILY fluticasone propionate [Flonase Allergy Relief] 50 mcg/actuation spray,suspension 2 spray intranasal DAILY Qty: 15.8 1RF Rx Instructions: administer into each nostril aspirin 81 MG tablet,delayed release (DR/EC) 81 mg PO DAILY hydrochlorothiazide 12.5 mg tablet 12.5 mg PO DAILY Qty: 90 2RF Rx Instructions: Take 1 tablet by mouth daily potassium chloride 20 mEq tablet extended release 20 meq PO DAILY Qty: 90 3RF pravastatin 40 mg tablet 40 mg PO DAILY Qty: 90 3RF telmisartan 80 mg tablet 80 mg PO DAILY Qty: 90 3RF amlodipine 10 mg tablet 10 mg PO DAILY Qty: 90 0RF Other Ambulatory Orders: 30 Day Event Recorder Preventi (Urgent) Timeframe: 1 Day Facility: [facility] - Location: Cardiovascular Services Ordered By: Dr. Sivan Martinez Referrals / Follow Up: Jamie Hall DO [Primary Care Provider] - Within 1 Week Disposition Disposition (needs filled in before D/C Order can be placed): Home, Self Care Charges/Coding Visit Charges Inpatient E&M: 54680 Disch Hosp >30min
--- NOTE | 2023-05-26 16:03 | PHA.DC_ITS ---
Pharmacy [facility] has performed discharge medication reconciliation and counseling for this patient. The patient's discharge medication list was reviewed for discrepancies and discrepancies were resolved. The patient was counseled on the following discharge medications and changes in medications for homegoing were reviewed. The Reason for Use, instructions for use, and potential side effects were reviewed for all new medications. The patient's questions regarding all of their medications were answered. 1. Levofloxacin 750 mg PO every other day x 2 doses (05/27 and 05/29) 2. Metoprolol tartrate 12.5 mg PO BID The patient was able to verbally demonstrate an understanding of their discharge medications. Medications at Discharge Home Medications aspirin 81 mg tablet,delayed release 81 mg PO DAILY 11/24/16 methylcellulose (laxative) 500 mg tablet (Citrucel) 500 mg PO DAILY 01/08/21 fluticasone propionate 50 mcg/actuation nasal spray,suspension (Flonase Allergy Relief) 2 spray intranasal DAILY #15.8 grams 09/02/21 hydrochlorothiazide 12.5 mg tablet 12.5 mg PO DAILY #90 tabs 11/24/22 potassium chloride 20 mEq tablet,extended release 20 meq PO DAILY #90 tabs 01/14/23 pravastatin 40 mg tablet 40 mg PO DAILY #90 tabs 01/14/23 telmisartan 80 mg tablet 80 mg PO DAILY #90 ea 01/14/23 amlodipine 10 mg tablet 10 mg PO DAILY #90 tabs 03/23/23 levofloxacin 750 mg tablet 750 mg PO QODAY 4 days #2 tabs 05/26/23 metoprolol tartrate 25 mg tablet 12.5 mg (1/2 x 25 mg) PO BID 30 days #30 tabs 05/26/23
== END 2023-05-26 16:03 | disposition home or self-care (01) | DRG 195 ==
LOC: ED 12:54 → PCU 15:49
PROVIDERS: Admitting Provider Family Medicine; Emergency Provider Emergency Medicine; PCP Family Medicine; Visit Provider Internal Medicine
DX: J18.9 Pneumonia, unspecified organism (principal); E78.5 Hyperlipidemia, unspecified; I48.91 Unspecified atrial fibrillation; I10 Essential (primary) hypertension; I49.8 Other specified cardiac arrhythmias; G89.29 Other chronic pain; R09.02 Hypoxemia; Z79.82 Long term (current) use of aspirin; R91.8 Other nonspecific abnormal finding of lung field
CPT/HCPCS: 36415; 71046; 71250; 80048; 81001; 83880; 84439; 84443; 84484; 85025; 87449; 87811; 93005; 93306; 94640; 99285; J7030; Q9957; A4216; J0153

== ENCOUNTER → 2023-05-25 | Outpatient (CLI) | payer MEDICARE, SELFPAY ==
--- NOTE | 2023-05-25 10:15 | RAD_ITS ---
INDICATION: cough EXAMINATION/TECHNIQUE: X-RAY - XR Chest 2 Views COMPARISON: None FINDINGS: LINES/DEVICES: None. LUNGS: There are increased interstitial lung markings. There is a subcentimeter nodular density projecting over the left upper chest. No large pleural effusions are noted. Is no evidence for pneumothorax. MEDIASTINUM AND CARDIOVASCULAR STRUCTURES: Cardiac silhouette not enlarged. Central airways and mediastinal contour are unremarkable. BONES AND SOFT TISSUES: Unremarkable. RAD/Chest PA and Lateral IMPRESSION: Prominence in interstitial lung markings without discrete consolidation. Questionable nodular density in the left upper chest. CT chest can be obtained for further evaluation. Electronically Signed: Gianfranco Lopez MD at 10:43 EDT ,
== END | disposition home or self-care (01) ==
LOC: MTRAD 10:11
PROVIDERS: PCP Family Medicine; Referring Provider Physician Assistant; Visit Provider Physician Assistant
DX: R05.9 Cough, unspecified (principal)
CPT/HCPCS: 71046

== ENCOUNTER 2023-06-07 17:20 | Inpatient (IN) | payer MEDICARE, SELFPAY ==
[2023-06-07 17:22] VITALS: BP 132/59; PULSE 83; RESP 17; TEMP 36.2; O2SAT 90
--- NOTE | 2023-06-07 19:44 | EX.ED.DYSGE1 ---
HPI History of Present Illness Chief Complaint: Abn Labs Detail of Chief Complaint: Sent in by 's office for abnormal labs. Informant: patient and family Onset/Context/Timing Onset: Days Context: Gradual Onset Timing: Continuous Current Severity: Mild Maximum Severity: Mild Narrative Narrative: 82-year-old female recent history of admission to the hospital for pneumonia. She was given Erb's all treatments in the hospital and developed A-fib. She has had intermittent A-fib since discharge is currently on metoprolol. She had outpatient labs which showed a new hyponatremia with a sodium of 126, hemoglobin 9.3 and bilateral pleural effusions so they sent her in to be admitted for further evaluation. Family states that she has been very fatigued at home. She gets short of breath easily specifically with exertion. She has not been having chest pain. And she has not had any melena. She is currently on no blood thinners. Prior similar symptoms: Yes Recent Illness/Hospitalization: Yes PFSH PFS Medical History Arthritis Atrial fibrillation Cardiac murmur Chronic back pain Chronic pain Frequent headaches Frequent UTI History of hemorrhoids History of pneumonia History of stomach ulcers Hyperlipemia Hypertension NECK/BACK PAIN Shortness of breath Home Medications aspirin 81 mg tablet,delayed release 81 mg PO DAILY HEART 11/24/16 [History Last Taken Unknown] methylcellulose (laxative) 500 mg tablet (Citrucel) 500 mg PO DAILY PRN constipation 01/08/21 [History Last Taken Unknown] hydrochlorothiazide 12.5 mg tablet 12.5 mg PO DAILY BP #90 tabs 11/24/22 [Rx Last Taken Unknown] potassium chloride 20 mEq tablet,extended release 20 meq PO DAILY SUPPLEMENT #90 tabs 01/14/23 [Rx Last Taken Unknown] pravastatin 40 mg tablet 40 mg PO DAILY CHOLESTROL #90 tabs 01/14/23 [Rx Last Taken Unknown] telmisartan 80 mg tablet 80 mg PO DAILY OK #90 ea 01/14/23 [Rx Last Taken Unknown] amlodipine 10 mg tablet 10 mg PO DAILY BP #90 tabs 03/23/23 [Rx Last Taken Unknown] cetirizine 10 mg tablet (Zyrtec) 10 mg PO QHS allergy symptoms 06/07/23 [History Last Taken Unknown] diltiazem HCl 120 mg capsule,extended release 24 hr (Cardizem CD) 120 mg PO DAILY BP 06/07/23 [History Last Taken Unknown] fluticasone propionate 50 mcg/actuation nasal spray,suspension (Flonase Allergy Relief) 2 spray intranasal DAILY PRN nasal congestion 06/07/23 [History Last Taken Unknown] Allergy/AdvReac Type Severity Reaction Status Date / Time nitroglycerin Allergy Mild NEEDS Verified 06/07/23 17:22 FOLLOW-UP chlorpheniramine AdvReac Other Verified 06/07/23 17:22 [From Actifed Cold-Allergy] phenylephrine AdvReac Other Verified 06/07/23 17:22 [From Actifed Cold-Allergy] pseudoephedrine AdvReac Other Verified 06/07/23 17:22 [From Actifed Cold-Allergy] triprolidine AdvReac Other Verified 06/07/23 17:22 [From Actifed Cold-Allergy] Family History Mother Diabetes Hypertension CVA (cerebral vascular accident) Father Myocardial infarction, Onset Age: 80 Brother Cancer Surgical History History of appendectomy History of back surgery History of foot surgery History of hysterectomy History of tonsillectomy Social History Smoking Status: Never smoker alcohol intake: never substance use type: does not use what type of physical activity do you participate in: walking frequency: daily ROS ROS ED ROS Narrative Shortness of breath. Fatigue. Diarrhea. Review of Systems ROS Unobtainable: Denies due to encephalopathy Constitutional Constitutional ED: Denies chills or fever(s) Eyes Eyes: Denies blurry vision ENT ENT ED: Denies ear pain Cardiovascular Cardiovascular: Denies chest pain Respiratory/Chest Respiratory/Chest: Reports dyspnea; Denies cough Gastrointestinal Gastrointestinal: Reports diarrhea; Denies abdominal pain, constipation, melena, nausea or vomiting Genitourinary Genitourinary ED: Denies dysuria or hematuria Musculoskeletal Musculoskeletal: Denies arthralgias Integumentary Denies abscess Neurologic Neurologic: Denies headache(s) Psychiatric Psychiatric: Denies anxiety Endocrine Endocrinology: Denies cold intolerance Hematologic/Lymphatic Hematologic/Lymphatic: Reports anemia Allergic/Immunologic Allergic/Immunologic ED: Denies mouth swelling or tongue swelling EXAM Physical Exam Narrative Exam Narrative: Well-appearing 82-year-old female. Vital signs stable afebrile. Pulse ox borderline hypoxia at 90% on room air. Afebrile. She does not look septic or toxic. She is in no distress. H EENT exam unremarkable. Neck nontender no JVD. Lungs diminished in both bases. Heart regular rate at 83. Abdomen soft nontender. Moving all 4 extremities. Calves are nontender without edema or cords. Neurologically she is awake and alert with no focal motor deficits. Const Vital Signs: 06/07/23 17:22 06/07/23 19:31 Temperature 97.2 F L Temperature Source Temporal Pulse Rate 83 Respiratory Rate 17 Respiratory Effort Normal Non-Labored Respiratory Pattern Normal Blood Pressure 132/59 H Blood Pressure Mean 83 Pulse Ox 90 Oxygen Delivery Method Room Air Positive well nourished and well developed; Negative for obese, cachectic, contractures or unkempt General Appearance ED: well developed and NAD; Negative for unkempt, cachectic, contractures, cyanotic, diaphoretic or pallor Nutritional Appearance: Negative for cachectic or obese HEENT Reports TM's clear and moist mucous membranes; Denies dry mucous membranes Negative for trauma or tenderness Tympanic Membrane ED: Yes TM's clear Mouth ED: No dry mucous membranes Mouth: No dry mucous membranes Eyes PERRL and EOMs intact bilaterally General Eye ED: Negative for pale conjunctiva or scleral icterus Neck no lymphadenopathy, supple and no JVD General: Negative for tenderness Lymph Lymphatic: Negative for other Chest Wall inspection of chest normal and palpation of chest normal Resp normal respiratory effort and clear to auscultation bilaterally Resp Narrative: Diminished in both bases. Auscultation: diminished lung sounds; Negative for rales, rhonchi or wheezes Cardio regular rate, regular rhythm, S1 normal heart sound, S2 normal heart sound and no murmurs GI normal to inspection, nondistended, normoactive bowel sounds, non-distended and no masses Auscultation: normoactive bowel sounds Palpation: soft; Negative for tender or guarding Back/Spine no CVA tenderness General Back: Negative for CVA tenderness Cervical Spine: Negative for cervical spine tenderness Thoracic Spine / Upper Back: Negative for thoracic spinal tenderness Lumbar Spine / Lower Back: Negative for lumbar spinal tenderness Extremity normal to inspection General Extremety ED: Negative for edema or tenderness General Extremity: Negative for edema Neuro oriented x3 and CN's II-XII intact bilaterally Sensorium / Orientation: alert; Negative for orientation impaired, lethargic or stuporous Motor Exam: strength 5/5 throughout; Negative for general weakness or strength abnormal Psych mental status grossly normal Appearance: Negative for unkempt Attitude: No agitated Mood & Affect: Negative for depressed, anxious or tearful Skin no rashes or lesions noted and no wounds General Skin Exam: Negative for elasticity normal, jaundice or pallor Lesions: No lesion noted Rashes: No rashes noted Trauma: Negative for abrasion Wounds: Negative for wounds noted MDM MDM MDM Narrative Medical decision making narrative: 82-year-old female recent admission for pneumonia and had new onset A-fib on that admission. Had outpatient labs done today had a worsening anemia with a hemoglobin around 9.3, new onset hyponatremia with a sodium of 126 and previously was 138 and bilateral pleural effusions with a recent echocardiogram that showed an EF of 60%. She is also had intermittent A-fib while at home on her monitoring tech. I have already spoken to the hospitalist she will be admitted for further evaluation and work-up. She has been typed and screened. History & Record Review Discussion w/independent historian: Patient Additional record(s) reviewed:: Prior inpatient record, Prior outpatient record, Prior ED visit and Prior labs Lab Data Attestation: I reviewed the patient's lab results. Lab results narrative: Sodium low at 126 previously 138. Hemoglobin low at 9.3. Previously over 10. Chest x-ray done earlier today with bilateral pleural effusions. Radiography Chest X-Ray - ED: 1 View, Read by ED Physician, Read by Radiologist, Normal, Heart, Lungs, Mediastinum, Bony Structures, No Acute Disease, Chronic Changes, Right Effusion and Left Effusion Diagnostic Testing: Chest x-ray done earlier today showed bilateral pleural effusions. Chronic changes. Interpreted both by myself and the radiologist. Rhythm Strip Rhythm Strip: Sinus Rhythm Rate: 83 Ectopy: None EKG Initial EKG: Attestation: I personally reviewed and interpreted this EKG as follows: Interpretation: Sinus Rhythm and No Acute Injury Pattern Comments: Normal sinus rhythm rate 83 no acute signs of RI or ischemia. Discharge Plan Dx/Rx/DC Orders Clinical Impression: Exertional dyspnea, Anemia, History of atrial fibrillation, Bilateral pleural effusion, Acute hyponatremia Disposition Disposition: Acute Care Hospital [facility]
[2023-06-07 20:02] VITALS: BP 162/58; PULSE 77; RESP 19; O2SAT 85; O2SAT 91; O2SAT 92
[2023-06-07 20:03] VITALS: BP 162/58; PULSE 75; RESP 19; TEMP 36.6; O2SAT 90
--- NOTE | 2023-06-07 20:32 | PCM.HP.STD ---
HPI - General General Date of Admission: 06/07/23 Date of Service: 06/07/23 Chief Complaint: Shortness of breath, fatigue after 1 to 2 days of discharge on 05/26/2023. Diarrhea for 3 to 4 days HPI Narrative MODESTA VAUGHAN, is a 82 F came to ER for shortness of breath for about 7 to 8 days mainly exertional walking within the home. Patient uses cane. Patient was discharged on 05/26/2023 after treatment for pneumonia and A-fib with RVR. Patient also has diarrhea at well-versed on the past Wednesday multiple times watery in nature without blood. Patient saw her PCP and had blood work which showed anemia hemoglobin 9.3/29.6, elevated white count and platelet count. 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 X-ray was done which shows bilateral small to moderate effusion with atelectasis. Twelve-lead EKG is ordered. Vitals done in the ER shows heart rate and blood pressure normal range pulse ox 90% on room air. [facility] Medical History Arthritis Atrial fibrillation Cardiac murmur Chronic back pain Chronic pain Frequent headaches Frequent UTI History of hemorrhoids History of pneumonia History of stomach ulcers Hyperlipemia Hypertension NECK/BACK PAIN Shortness of breath Home Medications aspirin 81 mg tablet,delayed release 81 mg PO DAILY HEART 11/24/16 [History Last Taken Unknown] methylcellulose (laxative) 500 mg tablet (Citrucel) 500 mg PO DAILY PRN constipation 01/08/21 [History Last Taken Unknown] hydrochlorothiazide 12.5 mg tablet 12.5 mg PO DAILY BP #90 tabs 11/24/22 [Rx Last Taken Unknown] potassium chloride 20 mEq tablet,extended release 20 meq PO DAILY SUPPLEMENT #90 tabs 01/14/23 [Rx Last Taken Unknown] pravastatin 40 mg tablet 40 mg PO DAILY CHOLESTROL #90 tabs 01/14/23 [Rx Last Taken Unknown] telmisartan 80 mg tablet 80 mg PO DAILY OK #90 ea 01/14/23 [Rx Last Taken Unknown] amlodipine 10 mg tablet 10 mg PO DAILY BP #90 tabs 03/23/23 [Rx Last Taken Unknown] cetirizine 10 mg tablet (Zyrtec) 10 mg PO QHS allergy symptoms 06/07/23 [History Last Taken Unknown] diltiazem HCl 120 mg capsule,extended release 24 hr (Cardizem CD) 120 mg PO DAILY BP 06/07/23 [History Last Taken Unknown] fluticasone propionate 50 mcg/actuation nasal spray,suspension (Flonase Allergy Relief) 2 spray intranasal DAILY PRN nasal congestion 06/07/23 [History Last Taken Unknown] Allergy/AdvReac Type Severity Reaction Status Date / Time nitroglycerin Allergy Mild NEEDS Verified 06/07/23 17:22 FOLLOW-UP chlorpheniramine AdvReac Other Verified 06/07/23 17:22 [From Actifed Cold-Allergy] phenylephrine AdvReac Other Verified 06/07/23 17:22 [From Actifed Cold-Allergy] pseudoephedrine AdvReac Other Verified 06/07/23 17:22 [From Actifed Cold-Allergy] triprolidine AdvReac Other Verified 06/07/23 17:22 [From Actifed Cold-Allergy] Family History Mother Diabetes Hypertension CVA (cerebral vascular accident) Father Myocardial infarction, Onset Age: 80 Brother Cancer Surgical History History of appendectomy History of back surgery History of foot surgery History of hysterectomy History of tonsillectomy Social History Smoking Status: Never smoker alcohol intake: never substance use type: does not use what type of physical activity do you participate in: walking frequency: daily ROS ROS Narrative Constitutional: Reports generalized fatigue and weakness. Patient felt subjective fever and chills but has not measured temperature. HEENT: Reports systems reviewed and no addt'l complaints, except as documented Respiratory/Chest: As described in HPI. CVS: Left anterior pleuritic chest pain on coughing or deep breathing for about 7 to 12 days from previous admission. Gastrointestinal: Diarrhea as described in HPI. No GI bleed. Mild nausea. Denies abdominal pain. Denies coffee ground emesis, hematemesis or vomiting Genitourinary: Denies any acute decrease in urine output. Denies burning urination or new urinary tract symptoms Musculoskeletal: Denies acute joint pain or limited range of motion. No acute injury. Chronic arthritis pain on walker. Neurologic: Denies seizure-like symptoms. No acute or strokelike symptoms. skin: No ulcer. No rash Endocrinology: Reports systems reviewed and no addt'l complaints, except as documented Hematologic/Lymphatic: Reports systems reviewed and no addt'l complaints, except as documented Rest 14 ROS are negative except as mentioned in HPI Vital Signs Vital Signs Vital Signs: 06/07/23 17:22 06/07/23 19:31 06/07/23 20:02 Temperature 97.2 F L Temperature Source Temporal Pulse Rate 83 Respiratory Rate 17 Respiratory Effort Normal Non-Labored Respiratory Pattern Normal Blood Pressure 132/59 H Blood Pressure Mean 83 Pulse Ox 90 85 Oxygen Delivery Method Room Air Room Air Oxygen Flow Rate (L/min) 06/07/23 20:02 06/07/23 20:02 06/07/23 20:03 Temperature 97.9 F Temperature Source Temporal Pulse Rate 77 75 Respiratory Rate 19 H 19 H Respiratory Effort Respiratory Pattern Blood Pressure 162/58 H 162/58 H Blood Pressure Mean 92 92 Pulse Ox 91 92 90 Oxygen Delivery Method Nasal Cannula Nasal Cannula Oxygen Flow Rate (L/min) 2 2 Weight Weight: 164 lb 3.91 oz Body Mass Index (BMI) 30.0 Physical Exam Narrative General: Alert, Oriented x3, Cooperative HEENT: Atraumatic, PERRLA, EOMI, Normocephalic Oral: No Gingival or Mucosal Lesions/ Ulcerations Neck: Supple, No JVD, Negative Carotid Bruits Lungs: Air entry diminished in bilateral lung bases. Stoning dullness bilateral lung below eighth rib posteriorly. No crepitations. Cardiovascular: Regular rate, Regular Rhythm, Normal S1, Normal S2, soft systolic murmur. Skin attached monitor Abdomen: Bowel Sounds Present, Soft, Non Tender, Non-Distended : No renal angle tenderness. No suprapubic tenderness. Extremities: No edema, Capillary Refill Less than 3 Seconds Skin: No rashes, No breakdown Musculoskeletal: No Tenderness to Palpation of Joints or Extremities. ROM restricted at knee and hip joints. Degenerative arthritis at knees and hip joints. Muscle strength 4+/5 at knees and hip joints. Neurological: Cranial nerves II-XII grossly intact, DTR 2+/4. No acute focal neurological deficit. Psych/Mental Status: Flat affect. Assessment & Plan Assessment/Plan (1) Bilateral pleural effusion: (2) Exertional dyspnea: PLAN: This 82-year-old female admitted with multiple complaints along with abnormal lab work. 1. Generalized fatigue and dyspnea on exertion most likely due to diarrhea coupled with bilateral pleural effusion and atelectasis: Patient was discharged on Levaquin 750 mg every 48 hourly total 2 tablets. Patient is not having any fever no hypoxia or tachypnea therefore incentive spirometry and Pep ordered. Respiratory panel and COVID-19 PCR ordered. UA with urine culture, sputum culture and blood culture ordered. Chest x-ray shows bilateral pleural effusion but I do not think its tappable/thoracocentesis. 2. Diarrhea with suspicion of possible C. difficile colitis: Patient completed antibiotic recently. Stool for C. difficile enteric bacteriology panel ordered. BUNs/creatinine elevated suggestive of dehydration therefore IV fluid normal saline ordered. Continue potassium supplement. 3. Subacute hyponatremia most likely due to diarrhea: Patient sodium is 126 chloride 94. Patient's sodium was 138 on 05/26/2023. IV fluid normal saline rest as mentioned above. 4. History of recent A-fib: Patient had A-fib with RVR during recent admission. At that time patient was treated with Cardizem drip and transition to metoprolol. Recent 2D echo on 05/26/2023 shows normal LV ventricle EF 60%. PASP 26 mmHg. Patient is on baby aspirin and diltiazem CD. 5. Normocytic anemia of chronic disease: H&H 9.3/29.6. 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 Leukocytosis, 15,000 mainly neutrophil 81%. Type and crossmatch. I do not think patient needs antibiotic as she just completed it.. Stool for occult blood ordered. Protonix ordered. Other comorbidities include Hypertension and dyslipidemia: Hold HCTZ as patient is having diarrhea and dehydrated. Continue ARB. Continue pravastatin. DVT prophylaxis: Heparin 500 subcutaneous twice daily. Discontinue if platelet count drops less than 50,000 or hemoglobin less than 8 g%: Laboratory Results 06/07/23 20:03: Phosphorus Pending, Magnesium Pending, Blood Type Pending, Antibody Screen Pending Living will/advanced directive/end of life care: Patient does have living will or advanced directive. Her daughter near the bedside is power of kiln charger for health. After discussion of benefits/risks procedures involved with full code, DNR CC arrest and DNR CC, the patient opted for full code. Patient and her daughter does want artificial life support including intubation, tube feed, ventilator and/chest compression, central venous catheter, vasopressor and DC shock if needed in the beginning to revive but if it becomes reversible, resistant to treatment then she does not want to prolong the life on the life support. Total time spent in [id number] encounter in discussion of advanced directive 17 minutes. Charges/Coding Visit Charges Inpatient E&M: 69466 Init Hosp L3 Procedures Hospitalists Procedures: 82723 Advncd Care Plan 30 Min
[2023-06-07 20:53] LABS: Magnesium 2.2 mg/dL (1.6-2.6); Phosphorus 2.8 mg/dL (2.5-4.9)
[2023-06-07 21:13] LABS: International Normalized Ratio 1.1; Prothrombin Time (Protime)PT. 14.3 SECONDS (11.7-14.9)
[2023-06-07 21:14] LABS: Partial Thromboplast Time 32.9 Seconds (24.1-36.2)
[2023-06-07 21:21] LABS: CPK Total, Creatine Kinase 50 U/L (26-192)
[2023-06-07 21:31] VITALS: BMI 28.0
[2023-06-07 21:41] VITALS: BP 144/81; PULSE 95; RESP 30; TEMP 37; O2SAT 91
[2023-06-07] MEDS: 0.9% Normal Saline (1000mL) 1,000 ML 100 ML IV (22:02)
[2023-06-07 22:03] VITALS: BP 136/82; PULSE 86; RESP 25; TEMP 37.1; O2SAT 93
[2023-06-07 22:56] VITALS: O2SAT 92
[2023-06-07] MEDS: Heparin Injection (Vial) 5,000 UNIT/ML VIAL 5000 UNIT SC (23:10)
[2023-06-07] MEDS: Pravastatin 40 MG Tablet PO (23:10)
[2023-06-07] MEDS: Pantoprazole Sodium 40 MG Tablet PO (23:10)
[2023-06-07] MEDS: amLODIPine 10 MG Tablet PO (23:10)
[2023-06-07] MEDS: Loratadine 10 MG Tablet PO (23:10)
[2023-06-08] VITALS (18 sets, daily range): BP systolic 115–167; BP diastolic 70–121; PULSE 88–142; RESP 12–45; TEMP 36.5–37.1; O2SAT 91–96; BMI 28.0
--- NOTE | 2023-06-08 00:05 | NURSING ---
pt was admitted with out pt Holter monitor, device said that battery needed charged so it was disconnected from pt and placed on product support engineer for a couple hours. when reapplied to pt the transmitter could not find the device, tried to connect to wifi and was unable to. asked if someone could bring the instructions in from home so we could trouble shoot.
[2023-06-08] MEDS: Ipratropium/Albuterol Sulfate 3 ML AMPUL.NEB INHALATION ×2 (04:12→11:24)
[2023-06-08 07:01] LABS: Absolute Lymphocyte Count 1.53 X10^3/uL (0.83-4.51); Basophil# 0.07 X10^3/uL; Basophil% 0.5 % (0-1); Eosinophil# 0.02 X10^3/uL; Eosinophils% 0.1 % (0-5); Hematocrit 26.8 % (37-47); Hemoglobin 8.7 g/dL (12.0-15.0); Lymphocyte # 1.53 X10^3/ul (0.83-4.51); Lymphocyte % 10.8 % (19-41); Mean Corp Hgb Conc 32.5 g/dL (32-36); Mean Corpuscular Hgb 27.9 pg (27.0-32.0); Mean Corpuscular Volume 85.9 fL (81-99); Mean Platelet Vol. 8.6 fl (6.2-12.0); Monocyte# 1.49 X10^3/uL; Monocyte% 10.5 % (0-10); NRBC Flagged by Analyzer 0 % (0-5); Neutrophil # 11.02 X10^3/uL (2.7-7.7); Neutrophil % 77.4 % (47-70); Platelet Count 549 K/mm3 (150-450); RBC Distribution Width CV 13.5 % (11.6-14.6); RBC Distribution Width SD 42.4 fl (35.1-43.9); Red Blood Count 3.12 M/mm3 (4.2-5.4); White Blood Count 14.2 K/mm3 (4.4-11.0)
[2023-06-08 07:38] LABS: Anion Gap 6 (5-15); BUN 20 mg/dL (7-18); BUN/Creat Ratio 39.1 RATIO (10-20); Calcium,Total 8.6 mg/dL (8.5-10.1); Chloride 97 mmol/L (98-107); Creatinine, Serum 0.51 mg/dL (0.55-1.02); EST Glomerular Filtration Rate 122 mL/min (>60); Est Glom Filt Rate - Afr Amer 147 mL/min (>60); Estimated Creatinine Clearance 35.26 ml/min; Glucose 146 mg/dL (74-106); Sodium Level 128 mmol/L (136-145); Thyroid Stim Hormone (TSH) 5.56 uIU/mL (0.358-3.74)
--- NOTE | 2023-06-08 09:02 | PCM.PN.HOSP ---
Reason for Visit Reason for Visit: Diagnoses Pleural effusion, not elsewhere classified (06/07/23) Other forms of dyspnea (06/07/23) Subjective Subjective Pt more SOB after fluids, no CP, dry cough Objective Data Objective Data Vital Signs: Vital Signs Temp Pulse Resp BP Pulse Ox O2 Del Method O2 Flow Rate 98.7 F 88 25 H 155/72 H 92 Nasal Cannula 4 06/08/23 04:26 06/08/23 04:26 06/08/23 04:26 06/08/23 04:26 06/08/23 08:48 06/08/23 08:48 06/08/23 08:48 Oxygen Flow Rate (L/min) 4 Oxygen Delivery Method Nasal Cannula Weight: 71.8 kg Body Mass Index (BMI) 28.0 Intake & Output: Intake and Output for Last 24 Hours 06/06/23 06/07/23 06/08/23 23:59 23:59 23:59 Intake Total 646.67 / 646.67 Balance 646.67 / 646.67 Lab / Micro Data 06/08/23 06:48 06/08/23 06:48 Labs: Laboratory Results - last 24 hr 06/07/23 20:03: Phosphorus 2.8, Magnesium 2.2, Total Creatine Kinase 50, Blood Type B POSITIVE, Antibody Screen POSITIVE, Antibody Identification ANTI-K, Crossmatch See Detail 06/07/23 21:10: Lactic Acid 1.0 06/07/23 23:12: PT 14.3, INR 1.1, APTT 32.9 06/08/23 06:48: WBC 14.2 H, RBC 3.12 L, Hgb 8.7 L, Hct 26.8 L, MCV 85.9, MCH 27.9, MCHC 32.5, RDW Std Deviation 42.4, RDW Coeff of Juve 13.5, Plt Count 549 H, MPV 8.6, Immature Gran % (Auto) 0.700, Neut % (Auto) 77.4 H, Lymph % (Auto) 10.8 L, [place] % (Auto) 10.5 H, Eos % (Auto) 0.1, Baso % (Auto) 0.5, Absolute Neuts (auto) 11.0 H, Absolute Lymphs (auto) 1.53, Nucleated RBC % 0, Sodium 128 L, Potassium 4.0, Chloride 97 L, Carbon Dioxide 25.0, Anion Gap 6, BUN 20 H, Creatinine 0.51 L, Estim Creat Clear Calc 35.26, Est GFR (MDRD) Af Amer 147, Est GFR (MDRD) Non-Af 122, BUN/Creatinine Ratio 39.1 H, Glucose 146 H, Calcium 8.6, TSH 5.56 H Micro: Microbiology 06/07/23 22:10 Nasal Secretion SARS-CoV-2 & FLU Antigen (Rapid) - Final Rhythm Strip Rhythm Strip: Sinus Rhythm Rate: 83 Ectopy: None Physical Exam Narrative General: Alert, oriented, appears uncomfortable HEENT: Atraumatic, normocephalic Eyes: Anicteric, normal conjunctiva, extraocular movements grossly intact Neck: Supple Respiratory: diminished at the bases, increased respiratory effort Cardiovascular: Irregularly irregular, slightly tachycardic GI: Soft, nontender, nondistended Extremities: No edema Musculoskeletal: Moving all extremities Neuro: No overt focal neurological deficits Skin: No rashes appreciated Psych: Cooperative Assessment & Plan Assessment/Plan (1) Bilateral pleural effusion: (2) Exertional dyspnea: PLAN: Plan This 82-year-old female admitted with multiple complaints along with abnormal lab work. 1. Hypoxia and generalized fatigue and dyspnea on exertion most likely due to diarrhea coupled with bilateral pleural effusion and atelectasis: Patient was discharged on Levaquin 750 mg every 48 hourly total 2 tablets. Patient is not having any fever no hypoxia or tachypnea therefore incentive spirometry and Pep ordered. Respiratory panel and COVID-19 PCR ordered. UA with urine culture, sputum culture and blood culture ordered. Chest x-ray shows bilateral pleural effusion but I do not think its tappable/thoracocentesis. -06/08: Was 85% on room air, presently 92% on 4 L. Given 2 L IV fluid, respiratory status worsened, 20 IV Lasix. Previous echo with normal EF however given pulmonary edema and effusions we will recheck limited echo for EF and wall motion abnormalities. Will obtain BNP. Has had dry cough but no overt infectious signs or symptoms but will check Pro-Jim as she reportedly has not been feeling better even after discharge and does have slightly elevated white count. Patient also given DuoNeb, has had problems with albuterol in the past and heart rate, will change these to Atrovent, did report that the DuoNeb that she got this morning was very helpful and it did not seem to affect her heart rate at that time. We will get respiratory panel. If not improving with these measures can consider CTA however given her effusions and worsening with fluids will first trial Lasix as this seems more likely culprit 2. Diarrhea with suspicion of possible C. difficile colitis: Patient completed antibiotic recently. Stool for C. difficile enteric bacteriology panel ordered. BUNs/creatinine elevated suggestive of dehydration therefore IV fluid normal saline ordered. Continue potassium supplement. -06/08: BUN and creatinine better with fluids. Enteric pathogens and cultures ordered, enteric pathogens yet to be obtained, has not had a BM. No diarrhea for 2 days prior to admission as well, low suspicion for C. difficile at this point 3. Subacute hyponatremia most likely due to diarrhea: Patient sodium is 126 chloride 94. Patient's sodium was 138 on 05/26/2023. IV fluid normal saline rest as mentioned above. -06/08: Improved 128 with normal saline 4. History of recent A-fib: Patient had A-fib with RVR during recent admission. At that time patient was treated with Cardizem drip and transition to metoprolol. Recent 2D echo on 05/26/2023 shows normal LV ventricle EF 60%. PASP 26 mmHg. Patient is on baby aspirin and diltiazem CD. -06/08: Continue present management, monitor closely after being given albuterol with her DuoNeb 5. Normocytic anemia of chronic disease: H&H 9.3/29.6. 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 Leukocytosis, 15,000 mainly neutrophil 81%. Type and crossmatch. I do not think patient needs antibiotic as she just completed it.. Stool for occult blood ordered. Protonix ordered. -06/08: Do not think patient has brisk ongoing bleeding, continue to trend Other comorbidities include Hypertension and dyslipidemia: Hold HCTZ as patient is having diarrhea and dehydrated. Continue ARB. Continue pravastatin. DVT prophylaxis: Heparin 500 subcutaneous twice daily Time spent in the patient's overall evaluation,decision-making process, review of diagnostic data, adjustment of management, discussion with other providers, nursing nursing and ancillary staff involved in patient's care documentation, 60 minutes Charges/Coding Visit Charges Inpatient E&M: [address]63 [place] [address]
[2023-06-08] MEDS: Aspirin E.C. 81 MG Tablet PO (09:53)
[2023-06-08] MEDS: Heparin Injection (Vial) 5,000 UNIT/ML VIAL 5000 UNIT SC (09:54)
[2023-06-08] MEDS: dilTIAZem CD 120 MG Capsule PO (09:54)
[2023-06-08] MEDS: Losartan Potassium 100 MG Tablet PO (09:54)
[2023-06-08] MEDS: Pantoprazole Sodium 40 MG Tablet PO (09:56)
[2023-06-08] MEDS: Potassium Chloride Oral Tablet 20 MEQ 40 MEQ PO (09:56)
[2023-06-08] MEDS: Furosemide 20 MG/2 ML VIAL IV (11:17)
--- NOTE | 2023-06-08 11:58 | CHAPLAIN ---
Type of Pastoral Visit _x__ Initial Visit ___ Follow-up Visit ___ On-call Visit ___ General Patient Visit ___ Spiritual Assessment ___ Family Conference ___ Bereavement ___ Rapid Response ___ Code Blue ___ Other (describe below) Pastoral Care Referral From _x__ Patient ___ Family ___ Nurse ___ Physician ___ Front Office Administrator ___ Transfer Table Operator Helper ___ Other (describe below) Sacrament/Intervention ___ Active listening ___ Anointing ___ Adventism ___ Bereavement ___ Communion ___ Beatris exploration ___ ___ Life review _x__ Prayer ___ Reconciliation ___ Sacrament of Sick _x__ Supportive presence ___ Wedding ___ Other (describe below) Pastoral Comments patient and daughter are in the room; pt admits to having difficulty breathing and promise given to her that visit can be brief and not needing her to talk; daughter gives current details of needs and care provided; daughter states that a prayer would be good and that is given; pt has some admitted anxiety due to breathing difficulty; offer of ongoing support is given
[2023-06-08] MEDS: Metoprolol Tartrate 5 MG/5 ML Vial 2.5 MG IV ×2 (12:07→14:13)
--- NOTE | 2023-06-08 12:09 | ECHOL_ITS ---
Reason For Study: dyspnea Procedure This was a 2D Doppler, Color Flow transthoracic echocardiogram. Exam performed portable in patient room. Left Ventricle Normal LV size. Moderate concentric left ventricular hypertrophy. The left ventricular ejection fraction is 70 %. Right Ventricle Normal right ventricle. Atria Normal left atrium. Normal right atrium. Mitral Valve There is Mild focal posterior mitral annular calcification. Tricuspid Valve Normal tricuspid valve. Aortic Valve Mild diffuse aortic valve thickening. Pulmonic Valve The pulmonic valve is not well visualized. Great Vessels Inferior vena cava collapse with sniff. Pericardium/Pleural Moderate pericardial effusion. MMode/2D Measurements & Calculations LVIDd: 3.1 cm IVSd: 1.4 cm LAV(MOD-sp4): 62.2 ml LVIDs: 2.2 cm LVPWd: 1.4 cm FS: 30.6 % LVAd ap4: 19.4 cm2 SV(MOD-sp4): 32.1 ml SV(sp4-el): 32.3 ml LVLd ap4: 7.1 cm EDV(MOD-sp4): 46.5 ml EDV(sp4-el): 45.0 ml LVAs ap4: 9.0 cm2 LVLs ap4: 5.5 cm ESV(MOD-sp4): 14.4 ml ESV(sp4-el): 12.7 ml EF(MOD-sp4): 69.0 % EF(sp4-el): 71.8 % LA A4 area: 21.9 cm2 RA A4 area: 12.6 cm2 ECHO/Echo, Limited Study Interpretation Summary Moderate concentric left ventricular hypertrophy. The left ventricular ejection fraction is 70 %. There is Mild focal posterior mitral annular calcification. Mild diffuse aortic valve thickening. Moderate pericardial effusion. Early diastolic collapse of the right atrium not ed. Suggestive of early echo evidence of tamponade. IVC dilated but does collapse with sniffing. The pericardial effusion has developed since the last examination from 05/26/20 23. Ordering Physician: Sivan Martinez Referring Physician: Abdias Hall M.D. Performed By: Wen Argueta RCS
[2023-06-08 13:38] LABS: BNP,B-Type NATRIURETIC PEPTIDE 187.4 pg/mL (0-100)
[2023-06-08] MEDS: 0.9% Saline Lock 10 ML Syringe IV (14:13)
--- NOTE | 2023-06-08 15:00 | CASEMGMT ---
[facility] as follows:. [facility], [place], [facility], [facility], [facility], [facility]), and . Natalee Tillman, Discharge Planning Asst.
[2023-06-08] MEDS: Ipratropium 0.5 MG/2.5 ML SOLUTION INHALATION ×2 (15:02→19:51)
[2023-06-08 15:10] LABS: Procalcitonin 0.09 ng/mL (0.00-0.09)
[2023-06-08 16:01] LABS: Troponin-I HS 10 pg/mL (3.0-54.0)
[2023-06-08 16:39] LABS: D-Dimer Quantitative (DVT/PE) 5.62 FEU/ug/m (0.27-0.49)
--- NOTE | 2023-06-08 17:17 | DCINST_ITS ---
Discharge Instructions Diet Discharge Diet: 2000 mg Sodium Diet Follow Up Care Test Results: Test results from this visit will be discussed in further detail at your follow- up appointment, if applicable. Discharge Plan Admission Admit Date/Time: 06/07/23 19:48 Primary Reason for Your Visit: Shortness of breath Attending Provider: Sivan Martinez Primary Care Provider: Jamie Hall Consulting Providers: Colton Mayfield Instructions Patient Instructions: Treatment for Pericardial Effusion, Understanding Pericardial Effusion Discharge Orders/Prescriptions Prescriptions: New pantoprazole 40 mg Tablet,Delayed Release (Dr/Ec) 40 mg PO DAILY Qty: 0 0RF ipratropium bromide 0.02 % Solution 0.5 mg inhalation Q4HWA.RT Qty: 0 0RF Continued aspirin 81 MG tablet,delayed release (DR/EC) 81 mg PO DAILY diltiazem HCl [Cardizem CD] 120 mg capsule,extended release 24hr 120 mg PO DAILY pravastatin 40 mg tablet 40 mg PO DAILY Qty: 90 3RF telmisartan 80 mg tablet 80 mg PO DAILY Qty: 90 3RF amlodipine 10 mg tablet 10 mg PO DAILY Qty: 90 0RF No Action Citrucel 500 mg tablet 500 mg PO DAILY PRN (Reason: constipation) fluticasone propionate [Flonase Allergy Relief] 50 mcg/actuation spray,suspension 2 spray intranasal DAILY PRN (Reason: nasal congestion) Rx Instructions: administer into each nostril cetirizine [Zyrtec] 10 mg tablet 10 mg PO QHS hydrochlorothiazide 12.5 mg tablet 12.5 mg PO DAILY Qty: 90 2RF Rx Instructions: Take 1 tablet by mouth daily potassium chloride 20 mEq tablet extended release 20 meq PO DAILY Qty: 90 3RF Referrals / Follow Up: Jamie Hall DO [Primary Care Provider] - Disposition Disposition (needs filled in before D/C Order can be placed): [facility]
--- NOTE | 2023-06-08 17:22 | PCM.DC.SUM ---
Providers Date of Admission: 06/07/23 Date of Discharge: 06/08/23 Primary Care Physician: Dr. Jamie Hall, DO Reason For Visit: B/L EFFUSION Diagnosis Discharge Diagnosis (1) Bilateral pleural effusion: Status: Acute Code(s): J90 - Pleural effusion, not elsewhere classified (2) Exertional dyspnea: Status: Acute Code(s): R06.09 - Other forms of dyspnea Plan #Hypoxia and generalized fatigue and dyspnea on exertion most likely due to diarrhea coupled with bilateral pleural effusion and atelectasis #Moderate pericardial effusion #Recent Diarrhea- resolved #Subacute hyponatremia most likely due to diarrhea: #History of recent A-fib #Normocytic anemia of chronic disease #Hypertension Medications at Discharge Home Medications aspirin 81 mg tablet,delayed release 81 mg PO DAILY HEART 11/24/16 methylcellulose (laxative) 500 mg tablet (Citrucel) 500 mg PO DAILY PRN constipation 01/08/21 hydrochlorothiazide 12.5 mg tablet 12.5 mg PO DAILY BP #90 tabs 11/24/22 potassium chloride 20 mEq tablet,extended release 20 meq PO DAILY SUPPLEMENT #90 tabs 01/14/23 pravastatin 40 mg tablet 40 mg PO DAILY CHOLESTROL #90 tabs 01/14/23 telmisartan 80 mg tablet 80 mg PO DAILY OK #90 ea 01/14/23 amlodipine 10 mg tablet 10 mg PO DAILY BP #90 tabs 03/23/23 cetirizine 10 mg tablet (Zyrtec) 10 mg PO QHS allergy symptoms 06/07/23 diltiazem HCl 120 mg capsule,extended release 24 hr (Cardizem CD) 120 mg PO DAILY BP 06/07/23 fluticasone propionate 50 mcg/actuation nasal spray,suspension (Flonase Allergy Relief) 2 spray intranasal DAILY PRN nasal congestion 06/07/23 ipratropium bromide 0.02 % solution for inhalation 0.5 mg (2.5 mL) inhalation Q4HWA.RT #0 mL 06/08/23 pantoprazole 40 mg tablet,delayed release 40 mg PO DAILY #0 tabs 06/08/23 Hospital Course Procedures Transthoracic echo Summary of Care Provided Minutes Spent on Discharge: 46 Hospital Course: MODESTA VAUGHAN, is a 82 F with history of hypertension, recent episode of A-fib who came to ER for shortness of breath 06/07/2023 for about 7 to 8 days mainly exertional walking within the home. Patient was discharged on 05/26/2023 after treatment for pneumonia and A-fib with RVR. 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 Of note at her admission earlier this month she had an echocardiogram with a normal EF and no wall motion abnormalities or other overt abnormalities. In the ED patient was 85% on room air and was 92% on 4 L, she been having some recent diarrhea though it not for 2 days and appeared dry so she was given fluids and respiratory status worsened. She is given 20 IV Lasix and BNP obtained which was low, Pro-Jim also low. D-dimer ordered as well as limited echo and troponin, troponin within normal limits, limited echocardiogram with moderate effusion which was new in early evidence concerning for impending tamponade. Discussed with cardiology and they recommended transfer to tertiary center due to the effusion and concerns for patient progressing to tamponade and needing intervention. It was also advised to hold full dose anticoagulation if she was on it. Discussed with patient, patient accepted at . After all of this was arranged and echo reviewed patient's D-dimer then resulted at 5.6, patient's blood pressure not low, respiratory status improving on BiPAP and concerns that lying patient flat may lead to acute decompensation and potentially catastrophic outcomes so CTA was not immediately pursued, vascular duplex is ordered of lower extremities. Discussed with cardiology given the recommendation of holding full dose anticoagulation but new D-dimer. Patient awaiting transport to tertiary facility, given unclear if patient's effusion is bloody or not in unclear cause of this quickly accumulating effusion there is concern that empirically starting heparin could worsen her tamponade and also have catastrophic outcomes. We will attempt to get duplexes, if not able to be performed prior to transfer, as transfer is imminent, this can be further worked up and managed at tertiary facility. At this time patient fairly stable on BiPAP without further acute decompensation. If hypotension develops, change in respiratory status, worsening tachycardia may need to revisit risks and benefits. Additionally prior to echo results patient was given metoprolol which did help heart rate go down to high 90s low 100s though still variable, given new information with effusion it is possible her tachycardia is compensatory and will avoid further beta-radha use hyperacutely to avoid worsening status and have also avoided further IV Lasix to avoid decompensation Physical Exam Narrative General: Alert, oriented, appears uncomfortable HEENT: Atraumatic, normocephalic Eyes: Anicteric, normal conjunctiva, extraocular movements grossly intact Neck: Supple Respiratory: diminished at the bases, increased respiratory effort Cardiovascular: Irregularly irregular, slightly tachycardic GI: Soft, nontender, nondistended Extremities: No edema Musculoskeletal: Moving all extremities Neuro: No overt focal neurological deficits Skin: No rashes appreciated Psych: Cooperative Weight / BMI Weight Weight: 71.8 kg Body Mass Index (BMI) 28.0 ABG / Lab / Microbiology Data 06/08/23 06:48 06/08/23 06:48 Laboratory: Laboratory Results - last 24 hr 06/07/23 20:03: Phosphorus 2.8, Magnesium 2.2, Total Creatine Kinase 50, Blood Type B POSITIVE, Antibody Screen POSITIVE, Antibody Identification ANTI-K, Antigen Identification K ANTIGEN - NEGATIVE, Crossmatch See Detail 06/07/23 21:10: Lactic Acid 1.0 06/07/23 23:12: PT 14.3, INR 1.1, APTT 32.9 06/08/23 06:48: WBC 14.2 H, RBC 3.12 L, Hgb 8.7 L, Hct 26.8 L, MCV 85.9, MCH 27.9, MCHC 32.5, RDW Std Deviation 42.4, RDW Coeff of Juve 13.5, Plt Count 549 H, MPV 8.6, Immature Gran % (Auto) 0.700, Neut % (Auto) 77.4 H, Lymph % (Auto) 10.8 L, Woodward % (Auto) 10.5 H, Eos % (Auto) 0.1, Baso % (Auto) 0.5, Absolute Neuts (auto) 11.0 H, Absolute Lymphs (auto) 1.53, Nucleated RBC % 0, Sodium 128 L, Potassium 4.0, Chloride 97 L, Carbon Dioxide 25.0, Anion Gap 6, BUN 20 H, Creatinine 0.51 L, Estim Creat Clear Calc 35.26, Est GFR (MDRD) Af Amer 147, Est GFR (MDRD) Non-Af 122, BUN/Creatinine Ratio 39.1 H, Glucose 146 H, Calcium 8.6, B-Natriuretic Peptide 187.4 H, TSH 5.56 H 06/08/23 14:06: Procalcitonin 0.09 06/08/23 14:57: D-Dimer Quant (PE/DVT) 5.62 H*, Troponin I High Sens 10 Microbiology: Microbiology 06/07/23 22:10 Nasal Secretion SARS-CoV-2 & FLU Antigen (Rapid) - Final Radiography Diagnostic Testing: Radiology Impression Echocardiogram 06/08/23 12:09 Interpretation Summary Moderate concentric left ventricular hypertrophy. The left ventricular ejection fraction is 70 %. There is Mild focal posterior mitral annular calcification. Mild diffuse aortic valve thickening. Moderate pericardial effusion. Early diastolic collapse of the right atrium noted. Suggestive of early echo evidence of tamponade. IVC dilated but does collapse with sniffing. The pericardial effusion has developed since the last examination from 05/26/2023. Ordering Physician: Sivan Martinez Referring Physician: Abdias Hall M.D. Performed By: Wen Argueta RCS D/C Instructions Discharge Diet: 2000 mg Sodium Diet Meaningful Use Info Meaningful Use Diagnoses (Choose all that apply): None applicable Discharge Plan Admission Admit Date/Time: 06/07/23 19:48 Primary Reason for Your Visit: Shortness of breath Attending Provider: Sivan Martinez Primary Care Provider: Jamie Hall Consulting Providers: Colton Mayfield Instructions Patient Instructions: Treatment for Pericardial Effusion, Understanding Pericardial Effusion Discharge Orders/Prescriptions Prescriptions: New pantoprazole 40 mg Tablet,Delayed Release (Dr/Ec) 40 mg PO DAILY Qty: 0 0RF ipratropium bromide 0.02 % Solution 0.5 mg inhalation Q4HWA.RT Qty: 0 0RF Continued aspirin 81 MG tablet,delayed release (DR/EC) 81 mg PO DAILY diltiazem HCl [Cardizem CD] 120 mg capsule,extended release 24hr 120 mg PO DAILY pravastatin 40 mg tablet 40 mg PO DAILY Qty: 90 3RF telmisartan 80 mg tablet 80 mg PO DAILY Qty: 90 3RF amlodipine 10 mg tablet 10 mg PO DAILY Qty: 90 0RF No Action Citrucel 500 mg tablet 500 mg PO DAILY PRN (Reason: constipation) fluticasone propionate [Flonase Allergy Relief] 50 mcg/actuation spray,suspension 2 spray intranasal DAILY PRN (Reason: nasal congestion) Rx Instructions: administer into each nostril cetirizine [Zyrtec] 10 mg tablet 10 mg PO QHS hydrochlorothiazide 12.5 mg tablet 12.5 mg PO DAILY Qty: 90 2RF Rx Instructions: Take 1 tablet by mouth daily potassium chloride 20 mEq tablet extended release 20 meq PO DAILY Qty: 90 3RF Referrals / Follow Up: Jamie Hall DO [Primary Care Provider] - Disposition Disposition (needs filled in before D/C Order can be placed): Acute Care Hospital Charges/Coding Visit Charges Inpatient E&M: 45125 Disch Hosp >30min
--- NOTE | 2023-06-08 19:55 | CPS ---
Tx stopped due to HR
--- NOTE | 2023-06-08 20:20 | NURSING ---
pt left with transport team, all belongings taken
== END 2023-06-08 20:25 | disposition short-term general hospital (02) | DRG 187 ==
LOC: ED 19:56 → PCU 20:15
PROVIDERS: Admitting Provider Internal Medicine; Emergency Provider Emergency Medicine; PCP Family Medicine; Visit Provider Internal Medicine
DX: J90 Pleural effusion, not elsewhere classified (principal); I31.39 Other pericardial effusion (noninflammatory); A04.72 Enterocolitis due to Clostridium difficile, not specified as recurrent; E87.1 Hypo-osmolality and hyponatremia; J98.11 Atelectasis; D63.8 Anemia in other chronic diseases classified elsewhere; I48.91 Unspecified atrial fibrillation; I10 Essential (primary) hypertension; E78.5 Hyperlipidemia, unspecified; G89.29 Other chronic pain; Z82.3 Family history of stroke; Z79.82 Long term (current) use of aspirin; R09.02 Hypoxemia; Z87.01 Personal history of pneumonia (recurrent)
CPT/HCPCS: 36415; 71046; 80048; 80053; 82550; 83036; 83605; 83735; 83880; 84100; 84145; 84443; 84484; 85025; 85379; 85610; 85730; 86850; 86870; 86900; 86901; 86905; 86920; 86922; 87040; 87086; 87428; 87449; 87633; 93005; 93308; 94002; 94640; 94668; 94762; 99284; J7030; A4216; J1940

== ENCOUNTER → 2023-06-07 | Outpatient (CLI) | payer MEDICARE, SELFPAY ==
--- NOTE | 2023-06-07 12:00 | RAD_ITS ---
STUDY: X-RAY CHEST REASON FOR EXAM: Female, 82 years old. Shortness of breath TECHNIQUE: PA and lateral views of the chest. COMPARISON: 05/25/2023 FINDINGS: Chronic interstitial changes in both lung campa with bilateral pleural effusions and likely bibasilar atelectasis. Follow-up recommended to ensure resolution Normal size heart. Normal mediastinum and rené. Normal visualized pulmonary arteries. There is atherosclerotic calcification of the aortic arch with tortuosity. There are diffuse degenerative changes of the visualized thoracic spine. There is degenerative osteoarthritis of the bilateral shoulders. There is no demonstrated abnormality of the visualized soft tissue structures of the upper abdomen. RAD/Chest PA and Lateral IMPRESSION: Bilateral pleural effusions with bibasilar atelectasis. Follow-up recommended to assure resolution Electronically Signed: Jorge Luis Villeda MD at 12:36 EDT ,
[2023-06-07 12:22] LABS: Absolute Lymphocyte Count 1.17 X10^3/uL (0.83-4.51); Absolute Neutrophil Count 12.6 X10^3/uL (2.0-7.7); Basophil# 0.07 X10^3/uL; Basophil% 0.5 % (0-1); Eosinophil# 0.03 X10^3/uL; Eosinophils% 0.2 % (0-5); Hematocrit 29.6 % (37-47); Hemoglobin 9.3 g/dL (12.0-15.0); Lymphocyte # 1.17 X10^3/ul (0.83-4.51); Lymphocyte % 7.6 % (19-41); Mean Corp Hgb Conc 31.4 g/dL (32-36); Mean Corpuscular Hgb 27.7 pg (27.0-32.0); Mean Corpuscular Volume 88.1 fL (81-99); Mean Platelet Vol. 9.2 fl (6.2-12.0); Monocyte# 1.44 X10^3/uL; Monocyte% 9.3 % (0-10); NRBC Flagged by Analyzer 0 % (0-5); Neutrophil # 12.64 X10^3/uL (2.7-7.7); Neutrophil % 81.5 % (47-70); Platelet Count 598 K/mm3 (150-450); RBC Distribution Width CV 13.4 % (11.6-14.6); RBC Distribution Width SD 43.4 fl (35.1-43.9); Red Blood Count 3.36 M/mm3 (4.2-5.4); White Blood Count 15.5 K/mm3 (4.4-11.0)
[2023-06-07 12:35] LABS: Hemoglobin A1c 5.9 % (3.8-5.6)
[2023-06-07 12:48] LABS: ALB/GLOB Ratio 0.5 RATIO (0.9-2.4); AST(SGOT) 49 U/L (15-37); Alanine Aminotransfer ALT/SGPT 52 U/L (13-56); Albumin, Serum 2.5 g/dL (3.2-5.0); Alkaline Phosphatase 145 U/L (45-117); Anion Gap 6 (5-15); BUN 27 mg/dL (7-18); BUN/Creat Ratio 42.7 RATIO (10-20); Calcium,Total 8.6 mg/dL (8.5-10.1); Chloride 94 mmol/L (98-107); Creatinine, Serum 0.63 mg/dL (0.55-1.02); EST Glomerular Filtration Rate 95 mL/min (>60); Est Glom Filt Rate - Afr Amer 115 mL/min (>60); Globulin 4.6 g/dL (2.2-4.2); Glucose 255 mg/dL (74-106); Potassium 3.7 mmol/L (3.5-5.1); Protein, Total 7.1 g/dL (6.4-8.2); Sodium Level 126 mmol/L (136-145); Troponin-I HS 8 pg/mL (3.0-54.0)
== END | disposition home or self-care (01) ==
PROVIDERS: PCP Family Medicine; Referring Provider Internal Medicine; Visit Provider Internal Medicine
DX: R06.02 Shortness of breath (principal); J18.9 Pneumonia, unspecified organism; R73.09 Other abnormal glucose; R91.1 Solitary pulmonary nodule
CPT/HCPCS: 36415; 71046; 80053; 83036; 84484; 85025

== ENCOUNTER → 2023-07-01 | Outpatient (CLI) | payer MEDICARE, SELFPAY ==
[2023-07-01 16:40] LABS: Absolute Lymphocyte Count 1.55 X10^3/uL (0.83-4.51); Absolute Neutrophil Count 7.9 X10^3/uL (2.0-7.7); Basophil# 0.09 X10^3/uL; Basophil% 0.8 % (0-1); Eosinophil# 0.13 X10^3/uL; Eosinophils% 1.2 % (0-5); Hematocrit 31.1 % (37-47); Hemoglobin 9.3 g/dL (12.0-15.0); Lymphocyte # 1.55 X10^3/ul (0.83-4.51); Lymphocyte % 14.6 % (19-41); Mean Corp Hgb Conc 29.9 g/dL (32-36); Mean Corpuscular Hgb 26.6 pg (27.0-32.0); Mean Corpuscular Volume 89.1 fL (81-99); Mean Platelet Vol. 8.3 fl (6.2-12.0); Monocyte# 0.83 X10^3/uL; Monocyte% 7.8 % (0-10); NRBC Flagged by Analyzer 0 % (0-5); Neutrophil # 7.93 X10^3/uL (2.7-7.7); Platelet Count 694 K/mm3 (150-450); RBC Distribution Width CV 15.9 % (11.6-14.6); RBC Distribution Width SD 51.9 fl (35.1-43.9); Red Blood Count 3.49 M/mm3 (4.2-5.4); White Blood Count 10.6 K/mm3 (4.4-11.0)
[2023-07-01 16:50] LABS: International Normalized Ratio 3.5; Prothrombin Time (Protime)PT. 35.5 SECONDS (11.7-14.9)
[2023-07-01 16:57] LABS: ALB/GLOB Ratio 0.7 RATIO (0.9-2.4); AST(SGOT) 26 U/L (15-37); Alanine Aminotransfer ALT/SGPT 17 U/L (13-56); Albumin, Serum 3.2 g/dL (3.2-5.0); Alkaline Phosphatase 102 U/L (45-117); Anion Gap 4 (5-15); BUN 25 mg/dL (7-18); Calcium,Total 9.3 mg/dL (8.5-10.1); Chloride 103 mmol/L (98-107); Creatinine, Serum 0.74 mg/dL (0.55-1.02); EST Glomerular Filtration Rate 80 mL/min (>60); Est Glom Filt Rate - Afr Amer 97 mL/min (>60); Globulin 4.5 g/dL (2.2-4.2); Glucose 107 mg/dL (74-106); Potassium 4.2 mmol/L (3.5-5.1); Protein, Total 7.7 g/dL (6.4-8.2); Sodium Level 136 mmol/L (136-145)
== END | disposition home or self-care (01) ==
LOC: BIMLAB 16:01
PROVIDERS: PCP Family Medicine; Referring Provider Internal Medicine; Visit Provider Internal Medicine
DX: T14.8XXA Other injury of unspecified body region, initial encounter (principal); E87.1 Hypo-osmolality and hyponatremia
CPT/HCPCS: 36415; 80053; 85025; 85610

== ENCOUNTER 2023-07-09 13:43 | Emergency (ER) | payer MEDICARE, SELFPAY ==
[2023-07-09 13:44] VITALS: BP 141/74; PULSE 120; RESP 18; TEMP 36.1; O2SAT 98
[2023-07-09 13:59] VITALS: BMI 25.9
--- NOTE | 2023-07-09 13:59 | EX.ED.DYSGE1 ---
[facility] <Dr. Jhonny Marr MD - Last Filed: 07/13/23 12:30> History of Present Illness Chief Complaint: Palpitations Detail of Chief Complaint: Palpitations, fatigue and chest discomfort Informant: patient Onset/Context/Timing Onset: Today Context: Sudden Onset Timing: Continuous Quality: Palpitations, fatigue is continuous. Duration of chest discomfort unknown Location: Midsternal Current Severity: Gone Maximum Severity: Moderate Worsened by: Nothing Relieved by: Nothing Associated Symptoms Associated Symptoms: Fatigue Narrative Narrative: Patient is an 82-year-old woman with chronic atrial fibrillation on Coumadin. Her last level was 3.2. Her dose was decreased from 3 mg a day to 2 mg a day. Since her level was still elevated she was instructed to hold her next 2 doses. She is scheduled to resume Coumadin this evening. Attempted cardioversion was unsuccessful. She was seen at outside facility this past Wednesday. She was felt to have a dermatologic rash due to the amiodarone. This was discontinued. No dysrhythmic was prescribed. She is on an ARB for her hypertension. She denied radiation of the discomfort. She denied dyspnea, diaphoresis. She states the discomfort in her chest started when she took a shower. She was assisted by her daughter. That daughter is not present. Time of onset unknown. Time of resolution unknown. Patient presently complaining of palpitations and fatigue. She denies leg pain, swelling or discoloration. There is no history of VTE. Prior similar symptoms: Yes Recent Illness/Hospitalization: Yes (Allergic reaction to amiodarone) [facility] <Dr. Jhonny Marr MD - Last Filed: 07/13/23 12:30> [facility] Medical History Arthritis Atrial fibrillation Cardiac murmur Chest pain Chronic back pain Chronic pain Frequent headaches Frequent UTI History of hemorrhoids History of pneumonia History of stomach ulcers Hyperlipemia Hypertension NECK/BACK PAIN Non-smoker Shortness of breath Home Medications aspirin 81 mg tablet,delayed release 81 mg PO DAILY HEART 11/24/16 [History Last Taken Unknown] pravastatin 40 mg tablet 40 mg PO DAILY CHOLESTROL #90 tabs 01/14/23 [Rx Last Taken Unknown] cetirizine 10 mg tablet (Zyrtec) 10 mg PO QHS allergy symptoms 06/07/23 [History Last Taken Unknown] pantoprazole 40 mg tablet,delayed release 40 mg PO DAILY #0 tabs 06/08/23 [Rx Last Taken Unknown] amiodarone 200 mg tablet mg PO BID 07/01/23 [History Last Taken Unknown] nitrofurantoin macrocrystal 50 mg capsule mg PO 07/01/23 [History Last Taken Unknown] spironolactone 25 mg tablet mg PO DAILY 07/01/23 [History Last Taken Unknown] valsartan 160 mg tablet mg PO .qd 07/01/23 [History Last Taken Unknown] warfarin 3 mg tablet mg PO .qd 07/01/23 [History Last Taken Unknown] warfarin 2 mg tablet 2 mg PO ONCE #30 tabs 07/02/23 [Rx Last Taken Unknown] amlodipine 10 mg tablet 10 mg PO DAILY BP #90 tabs 07/06/23 [Rx Last Taken Unknown] metoprolol succinate 25 mg tablet,extended release 24 hr 25 mg PO BID #60 tabs 07/09/23 [Rx Last Taken Unknown] Allergy/AdvReac Type Severity Reaction Status Date / Time nitroglycerin Allergy Mild NEEDS Verified 07/09/23 13:45 FOLLOW-UP amiodarone Allergy Rash Verified 07/09/23 13:46 chlorpheniramine AdvReac Other Verified 07/09/23 13:45 [From Actifed Cold-Allergy] phenylephrine AdvReac Other Verified 07/09/23 13:45 [From Actifed Cold-Allergy] pseudoephedrine AdvReac Other Verified 07/09/23 13:45 [From Actifed Cold-Allergy] triprolidine AdvReac Other Verified 07/09/23 13:45 [From Actifed Cold-Allergy] Family History Mother Diabetes Hypertension CVA (cerebral vascular accident) Father Myocardial infarction, Onset Age: 80 Brother Cancer Surgical History History of appendectomy History of back surgery History of foot surgery History of hysterectomy History of tonsillectomy Social History Smoking Status: Never smoker alcohol intake: never substance use type: does not use what type of physical activity do you participate in: walking frequency: daily ROS <Dr. Jhonny Marr MD - Last Filed: 07/13/23 12:30> ROS ED Constitutional Constitutional ED: Denies chills, fever(s), subjective, sweats or weight loss Eyes Eyes: Denies blurry vision, change in vision or diplopia ENT ENT ED: Denies ear pain, rhinorrhea or sore throat Cardiovascular Cardiovascular: Reports chest pain, palpitations and racing heartbeat; Denies orthopnea or paroxysmal nocturnal dyspnea Respiratory/Chest Respiratory/Chest: Denies cough, dyspnea, dyspnea on exertion, orthopnea or paroxysmal nocturnal dyspnea Gastrointestinal Gastrointestinal: Denies abdominal pain, nausea or vomiting Musculoskeletal Musculoskeletal: Denies arthralgias, back pain or myalgias Integumentary Reports rash Neurologic Neurologic: Reports weakness; Denies headache(s) or paresthesias Psychiatric Psychiatric: Denies anxiety or depression Hematologic/Lymphatic Hematologic/Lymphatic: Reports systems reviewed and no addt'l complaints, except as documented and easy bruising EXAM <Dr. Jhonny Marr MD - Last Filed: 07/13/23 12:30> Physical Exam Const Vital Signs: 07/09/23 13:44 07/09/23 13:59 07/09/23 15:09 Temperature 97 F L Temperature Source Temporal Pulse Rate 120 H 117 H Respiratory Rate 18 18 Respiratory Effort Normal Blood Pressure 141/74 H Blood Pressure Mean 96 Pulse Ox 98 95 Oxygen Delivery Method Room Air Room Air 07/09/23 15:26 07/09/23 15:49 07/09/23 16:26 Temperature Temperature Source Pulse Rate 116 H 119 H 116 H Respiratory Rate 20 H 17 17 Respiratory Effort Blood Pressure 131/89 H 128/86 H 143/92 H Blood Pressure Mean 103 100 109 Pulse Ox 95 96 97 Oxygen Delivery Method Room Air Room Air Positive well nourished and well developed General Appearance ED: well developed and NAD; Negative for pallor HEENT Reports moist mucous membranes HEENT Narrative: Head is atraumatic and normocephalic. Ears are normal. Nares are patent. Posterior pharynx is normal. Eyes PERRL and EOMs intact bilaterally General Eye ED: Negative for pale conjunctiva or scleral icterus Neck no lymphadenopathy, supple and no JVD Chest Wall inspection of chest normal and palpation of chest normal Resp normal respiratory effort and clear to auscultation bilaterally Cardio regular rhythm, S1 normal heart sound, S2 normal heart sound and no murmurs Rate: tachycardic GI normal to inspection, nondistended, normoactive bowel sounds, non-tender, non-distended and no masses; Negative for hepatosplenomegaly Auscultation: normoactive bowel sounds Palpation: soft Back/Spine no CVA tenderness Extremity General Extremety ED: Yes edema General Extremity: edema Neuro oriented x3, CN's II-XII intact bilaterally and no sensory deficits noted Sensorium / Orientation: alert Psych Psych Narrative: Affect is flat. Mood is depressed Skin no wounds Skin Narrative: Patient has a generalized nonraised blanching erythematous rash. There is also evidence of dry skin. General Skin Exam: Negative for jaundice or pallor <Dr. Herb Brooke DO - Last Filed: 07/09/23 17:00> Physical Exam Const Vital Signs: 07/09/23 13:44 07/09/23 13:59 07/09/23 15:09 Temperature 97 F L Temperature Source Temporal Pulse Rate 120 H 117 H Respiratory Rate 18 18 Respiratory Effort Normal Blood Pressure 141/74 H Blood Pressure Mean 96 Pulse Ox 98 95 Oxygen Delivery Method Room Air Room Air 07/09/23 15:26 07/09/23 15:49 07/09/23 16:26 Temperature Temperature Source Pulse Rate 116 H 119 H 116 H Respiratory Rate 20 H 17 17 Respiratory Effort Blood Pressure 131/89 H 128/86 H 143/92 H Blood Pressure Mean 103 100 109 Pulse Ox 95 96 97 Oxygen Delivery Method Room Air Room Air [facility] <Dr. Jhonny Marr MD - Last Filed: 07/13/23 12:30> [facility] Narrative Medical decision making narrative: Because patient had chest discomfort and has risk factors for coronary disease will obtain troponin and 2-hour troponin. EKG was obtained and revealed no acute ischemic changes. As noted in my opinion this represents atrial flutter with a 2-1 block and is atypical because of rate of 120. I am in disagreement with interpretation by computer. Since patient appears pale CBC was obtained to evaluate for anemia. Electrolyte panel was obtained. Patient received IV metoprolol for rate control. Since she had an elevated PTT/INR and has held her Coumadin level past 2 days will obtain a PT/INR. There is no plan for cardioversion since she has failed in the past. History & Record Review Additional record(s) reviewed:: Prior outpatient record (Records from outside facility were reviewed through [email or web address] Prior ED visit and Prior labs Lab Data Attestation: I reviewed the patient's lab results. Lab results narrative: White count is slightly elevated 13.3 thousand. H&H is 10.0 and 33.2. MCV is normal. Platelet count is elevated which she has been in the past. Basic metabolic panel reveals a BUN to creatinine ratio of 50:1. INR is subtherapeutic at 1.7. First troponin is 11. Labs: Laboratory Results - last 24 hr 07/09/23 14:00 Diff Path Review Reviewed EKG Initial EKG: Interpretation: Atrial Flutter (1 block with a rate of 120. Computer is reading accelerated junctional with retrograde conduction. I am in disagreement. QRS duration 100 ms. QT duration 340 ms. [place]man is normal. There is no ossific changes noted. There is no ST elevation.) Treatment and Re-Evaluation :: Was informed of her results. Heart rate is approximate 115. Additional dose of metoprolol was ordered. Since she has prerenal azotemia 1 L normal saline was ordered as well. <Dr. Herb Brooke, DO - Last Filed: 07/09/23 17:00> [facility] Lab Data Labs: Laboratory Results - last 24 hr 07/09/23 14:00 Diff Path Review Reviewed Treatment and Re-Evaluation :: Was informed of her results. Heart rate is approximate 115. Additional dose of metoprolol was ordered. Since she has prerenal azotemia 1 L normal saline was ordered as well. Care of the patient was turned over to ok pending repeat troponin. Repeat troponin was returned and was normal at 12. Patient was advised of her findings. Patient was instructed to follow-up with her primary care physician in 3 to 5 days. Patient understood and was agreeable with the plan. All questions were answered. Discharge Plan Triage Chief Complaint: Palpitations ED Provider: Jhonny Marr Dx/Rx/DC Orders Clinical Impression: Atrial fibrillation with rapid ventricular response, Hypertension, Hyperlipemia, Acute prerenal azotemia, Chest pressure, Thrombocytopathia Instructions: ED AFIB, ED Dehydration (Adult) Prescriptions: New metoprolol succinate 25 mg tablet extended release 24 hr 25 mg PO BID Qty: 60 0RF No Action cetirizine [Zyrtec] 10 mg tablet 10 mg PO QHS amiodarone 200 mg tablet PO BID nitrofurantoin macrocrystal 50 mg capsule PO spironolactone 25 mg tablet PO DAILY warfarin 3 mg tablet PO .qd valsartan 160 mg tablet PO .qd aspirin 81 MG tablet,delayed release (DR/EC) 81 mg PO DAILY pantoprazole 40 mg Tablet,Delayed Release (Dr/Ec) 40 mg PO DAILY Qty: 0 0RF pravastatin 40 mg tablet 40 mg PO DAILY Qty: 90 3RF warfarin 2 mg tablet 2 mg PO ONCE Qty: 30 1RF amlodipine 10 mg tablet 10 mg PO DAILY Qty: 90 0RF Primary Care Provider: Jamie Hall Referrals: Jamie Hall, [Primary Care Provider] - 5-7 Days Activity Restrictions/Additional Instructions: 1. Take 3 mg of Coumadin on odd days and 2 mg of Coumadin on even days 2. Take metoprolol once in the morning and once in the evening 3. You need to increase your fluid intake 4. You need to contact your primary care doctor and your computer aided design operator for follow-up within the next 5 to 7 days Disposition Disposition: Home, Self Care Discharge Date/Time: 07/09/23 17:15
[2023-07-09] MEDS: Metoprolol Tartrate 5 MG/5 ML Vial IV ×2 (14:08→15:21)
[2023-07-09 14:14] LABS: Absolute Lymphocyte Count 1.82 X10^3/uL (0.83-4.51); Absolute Neutrophil Count 9.7 X10^3/uL (2.0-7.7); Basophil# 0.15 X10^3/uL; Basophil% 1.1 % (0-1); Eosinophils% 0.8 % (0-5); Hematocrit 33.2 % (37-47); Lymphocyte # 1.82 X10^3/ul (0.83-4.51); Lymphocyte % 13.7 % (19-41); Mean Corp Hgb Conc 30.1 g/dL (32-36); Mean Corpuscular Hgb 26.4 pg (27.0-32.0); Mean Corpuscular Volume 87.6 fL (81-99); Mean Platelet Vol. 8.3 fl (6.2-12.0); Monocyte# 1.19 X10^3/uL; NRBC Flagged by Analyzer 0 % (0-5); Neutrophil # 9.68 X10^3/uL (2.7-7.7); Neutrophil % 73.1 % (47-70); POSITIVE COUNT YES; Platelet Count 820 K/mm3 (150-450); RBC Distribution Width SD 51.5 fl (35.1-43.9); Red Blood Count 3.79 M/mm3 (4.2-5.4); White Blood Count 13.3 K/mm3 (4.4-11.0)
[2023-07-09 14:17] LABS: Differential Indicated SCAN CRITERIA MET
[2023-07-09 14:31] LABS: International Normalized Ratio 1.7; Prothrombin Time (Protime)PT. 20.2 SECONDS (11.7-14.9)
[2023-07-09 14:32] LABS: Anion Gap 6 (5-15); BUN 35 mg/dL (7-18); BUN/Creat Ratio 50.1 RATIO (10-20); Calcium,Total 9.2 mg/dL (8.5-10.1); Chloride 102 mmol/L (98-107); EST Glomerular Filtration Rate 85 mL/min (>60); Est Glom Filt Rate - Afr Amer 103 mL/min (>60); Estimated Creatinine Clearance 35.26 ml/min; Glucose 140 mg/dL (74-106); Potassium 3.8 mmol/L (3.5-5.1); Sodium Level 134 mmol/L (136-145); Troponin-I HS (w/2H Reflex) 11 pg/mL (3.0-54.0)
[2023-07-09 14:49] LABS: Metamyelocyte 13.3 % (0-1); Platelet Estimate MKD INC (ADEQ)
[2023-07-09 15:09] VITALS: PULSE 117; RESP 18; O2SAT 95
[2023-07-09] MEDS: 0.9% Normal Saline (1000mL) 1,000 ML 1000 ML IV (15:21)
[2023-07-09 15:26] VITALS: BP 131/89; PULSE 116; RESP 20; O2SAT 95
[2023-07-09 15:49] VITALS: BP 128/86; PULSE 119; RESP 17; O2SAT 96
[2023-07-09 16:10] LABS: Reflex Troponin-HS? (from REC) Y
[2023-07-09 16:26] VITALS: BP 143/92; PULSE 116; RESP 17; O2SAT 97
[2023-07-09 16:51] LABS: Troponin-I HS 12 pg/mL (3.0-54.0)
[2023-07-09 17:14] VITALS: BP 131/76; PULSE 75; RESP 16; O2SAT 96
[2023-07-12 13:22] LABS: Pathologist Review Reviewed
== END 2023-07-09 17:15 | disposition home or self-care (01) ==
PROVIDERS: Emergency Provider Emergency Medicine; PCP Family Medicine; Visit Provider Emergency Medicine
DX: I48.91 Unspecified atrial fibrillation (principal); D69.6 Thrombocytopenia, unspecified; E78.5 Hyperlipidemia, unspecified; I10 Essential (primary) hypertension; R07.89 Other chest pain; R79.89 Other specified abnormal findings of blood chemistry; Z79.01 Long term (current) use of anticoagulants; Z79.899 Other long term (current) drug therapy; Z79.82 Long term (current) use of aspirin; Z90.49 Acquired absence of other specified parts of digestive tract; Z90.710 Acquired absence of both cervix and uterus
CPT/HCPCS: 80048; 84484; 85025; 85610; 93005; 96361; 96374; 96376; 99284; J7030; A4216

== ENCOUNTER 2023-07-21 16:29 | Outpatient (RCR) | payer MEDICARE, SELFPAY ==
[2023-07-21 17:13] LABS: Prothrombin Time (Protime)PT. 22.9 SECONDS (11.7-14.9)
== END 2023-08-15 23:59 ==
LOC: BIMLAB 16:29
PROVIDERS: PCP Family Medicine; Referring Provider Family Medicine; Visit Provider Family Medicine
DX: R60.0 Localized edema (principal)
CPT/HCPCS: 36415; 85610

== ENCOUNTER 2023-08-30 10:48 | Outpatient (RCR) | payer MEDICARE, SELFPAY ==
[2023-08-30 12:44] LABS: International Normalized Ratio 1.8
== END 2023-09-15 23:59 ==
LOC: BIMLAB 10:48
PROVIDERS: PCP Family Medicine; Referring Provider Family Medicine; Visit Provider Family Medicine
DX: R60.0 Localized edema (principal)
CPT/HCPCS: 36415; 85610

== ENCOUNTER → 2023-09-29 | Outpatient (CLI) | payer MEDICARE, SELFPAY ==
[2023-09-29 16:59] LABS: Absolute Lymphocyte Count 3.08 X10^3/uL (0.83-4.51); Absolute Neutrophil Count 4.6 X10^3/uL (2.0-7.7); Basophil# 0.07 X10^3/uL; Basophil% 0.8 % (0-1); Eosinophil# 0.28 X10^3/uL; Eosinophils% 3.2 % (0-5); Hematocrit 37.5 % (37-47); Hemoglobin 11.8 g/dL (12.0-15.0); Lymphocyte # 3.08 X10^3/ul (0.83-4.51); Mean Corp Hgb Conc 31.5 g/dL (32-36); Mean Corpuscular Hgb 26.3 pg (27.0-32.0); Mean Corpuscular Volume 83.7 fL (81-99); Mean Platelet Vol. 9.3 fl (6.2-12.0); Monocyte# 0.76 X10^3/uL; Monocyte% 8.6 % (0-10); NRBC Flagged by Analyzer 0 % (0-5); Neutrophil # 4.59 X10^3/uL (2.7-7.7); Neutrophil % 52.2 % (47-70); Platelet Count 373 K/mm3 (150-450); RBC Distribution Width CV 15.9 % (11.6-14.6); RBC Distribution Width SD 48.7 fl (35.1-43.9); Red Blood Count 4.48 M/mm3 (4.2-5.4); White Blood Count 8.8 K/mm3 (4.4-11.0)
[2023-09-29 17:18] LABS: Anion Gap 4 (5-15); BUN 33 mg/dL (7-18); BUN/Creat Ratio 44.7 RATIO (10-20); Calcium,Total 9.6 mg/dL (8.5-10.1); Chloride 106 mmol/L (98-107); Creatinine, Serum 0.74 mg/dL (0.55-1.02); EST Glomerular Filtration Rate 80 mL/min (>60); Est Glom Filt Rate - Afr Amer 96 mL/min (>60); Glucose 103 mg/dL (74-106); Potassium 4.1 mmol/L (3.5-5.1); Sodium Level 136 mmol/L (136-145)
--- OUTSIDE RECORDS SUMMARY | 2023-09-29 19:07 | XMS RPT_ITS | CCD ---
Author Name Unknown Address [address] [place] [address] Organization [facility] Care Team Providers Care Stockroom Keeper Name Role Phone Unavailable Primary Care Provider UnavailCOY Kramer DO Primary Care Physician MAL SEGURA Attending Unavailable Mal Segura MD Unavailable [phone] BRANT SPAIN Admitting Unavailable LIANG RAZO Attending Unavailable JANE MEHTA Consulting Unavailable FELIZ CRUZ Referring Unavailable FELIZ CRUZ Referring Unavailable COY HALL DO Attending Unavailable COY HALL DO Primary Care Unavailable COY HALL DO Primary Care Unavailable COY HALL DO Attending Unavailable BALDEV KULKARNI MD Attending Unavailable COY HALL DO Primary Care Unavailable Allergies Allergy Classification Reported Allergen(s) Allergy Type Date of Onset Reaction(s) Facility (7 sources) Nitroglycerin; Translations: [nitroglycerin] Drug Allergy 06-08-2023 [facility] Work Phone: (4 sources) Pseudoephedrine; Translations: [pseudoephedrine ] Drug Allergy 07-19-2023 Unknown [facility] (4 sources) Triprolidine; Translations: [triprolidine] Drug Allergy 07-19-2023 Unknown [facility] (3 sources) Amiodarone; Translations: [AMIODARONE] Drug Allergy 07-20-2023 [facility] Medications Current Medications Medication Drug Class(es) Dates Sig (Normalized) Sig (Original) acetaminophen 325 mg oral tablet (4 sources) Start: 06-23-2023 take 2 tablets by mouth every six hours for pain acetaminophen (Tylenol) 325 mg tablet Indications: Pericardial effusion Take 2 tablets (650 mg) by mouth every 6 hours if needed for mild pain (1 - 3). 30 tablet 0 06/23/2023 Active amLODIPine 10 mg oral tablet (5 sources) Dihydropyridine Calcium Channel Juanjo Start: 06-17-2016 take 1 dose by mouth once daily amLODIPine Dose : 10 mg =, Oral, qDay Start Date: 06/17/16 Status: Ordered aspirin 81 mg oral tablet (5 sources) Platelet Aggregation Inhibitor, Nonsteroidal Anti-inflammatory Drug Start: 06-17-2016 take 1 dose by mouth once daily aspirin Dose : 81 mg =, Oral, qDay Start Date: 06/17/16 Status: Ordered Completed/Discontinued Medications Medication Drug Class(es) Dates Sig (Normalized) Sig (Original) amiodarone hydrochloride 200 mg oral tablet (8 sources) Antiarrhythmic Start: 06-26-2023 End: 07-20-2023 take 1 tablet by mouth once daily amiodarone (Pacerone) 200 mg tablet Indications: atrial fibrillation Take 1 tablet (200 mg) by mouth once daily. Do not start before June 26, 2023. 30 tablet 3 06/26/2023 07/20/2023 Discontinued (Side effects) Problems Active Problems Problem Classification Problem Date Documented Date Episodic/Chronic Allergic reactions (1 source) Generalized skin eruption due to drugs and medicaments taken internally; Translations: [Generalized skin eruption due to drugs and medicaments taken internally] Onset: 07-05-2023 Episodic Cardiac dysrhythmias (10 sources) Unspecified atrial fibrillation; Translations: [Atrial fibrillation] Onset: 06-09-2023 Chronic Disorders of lipid metabolism (5 sources) Mixed hyperlipidemia; Translations: [Mixed hyperlipidemia] Onset: 07-19-2023 10-04-2019 Chronic Essential hypertension (3 sources) Essential hypertension; Translations: [Hypertensive disorder] Onset: 07-19-2023 10-04-2019 Chronic Heart valve disorders (7 sources) Aortic valve sclerosis; 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] Onset: 07-19-2023 10-04-2019 Chronic Hypertension with complications and secondary hypertension (2 sources) Other secondary hypertension; Translations: [Other secondary hypertension] Onset: 06-09-2023 Chronic Other aftercare (2 sources) FDC (current) use of anticoagulants; Translations: [FDC (current) use of anticoagulants] Onset: 06-25-2023 Episodic Risa-; endo-; and myocarditis; cardiomyopathy (except that caused by tuberculosis or sexually transmitted disease) (4 sources) Pericardial effusion; Translations: [Pericardial effusion] Onset: 06-08-2023 06-08-2023 Episodic Spondylosis; intervertebral disc disorders; other back problems (2 sources) Disorder of lumbar disc; 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, thoracolumbar and lumbosacral intervertebral disc disorder] Onset: 07-19-2023 10-04-2019 Chronic Syncope (2 sources) Syncope and collapse; Translations: [Syncope and collapse] Onset: 07-19-2023 10-04-2019 Episodic Unclassified (1 source) Other pericardial effusion (noninflammatory); Translations: [Other pericardial effusion (noninflammatory)] Onset: 06-09-2023 Past or Other Problems Problem Classification Problem Date Documented Da te Episodic/Chronic Unclassified (1 source) Other pericardial effusion (noninflammatory); Translations: [Other pericardial effusion (noninflammatory)] Onset: 06-09-2023 Results Test Name Value Interpretation Reference Range Facil ity Vital Signs Date Time Vital Sign Value Performing Clinician Facility 07-20-2023 11:27-0500 Body height 160 cm Mal Segura MD Work Phone: [facility] 07-20-2023 11:27-0500 Body mass index (BMI) [Ratio] 26.04 kg/m2 Mal Segura MD Work Phone: [facility] 07-20-2023 11:27-0500 Body weight 66.68 kg Mal Segura MD Work Phone: [facility] 07-20-2023 11:27-0500 Diastolic blood pressure 53 mm[Hg] Mal Segura MD Work Phone: [facility] 07-20-2023 11:27-0500 Heart rate 54 /min Mal Segura MD Work Phone: [facility] 07-20-2023 11:27-0500 SaO2% (BldA) [Mass fraction] 97 % Mal Segura MD Work Phone: [facility] 07-20-2023 11:27-0500 Systolic blood pressure 125 mm[Hg] Mal Segura MD Work Phone: [facility] 07-05-2023 11:12-0500 Body temperature 98.42 [degF] BALDEV KULKARNI MD [facility] 07-05-2023 11:12-0500 Diastolic Blood Pressure Non-Invasive 72 mm[Hg] BALDEV KULKARNI MD [facility] 07-05-2023 11:12-0500 Heart rate 71 /min BALDEV KULKARNI MD [facility] 07-05-2023 11:12-0500 Respiratory rate 18 /min BALDEV KULKARNI MD [facility] 07-05-2023 11:12-0500 Systolic Blood Pressure Non-Invasive 146 mm[Hg] BALDEV KULKARNI MD [facility] 06-09-2023 00:38-0400 Body temperature 37.0 degrees Celsius [facility] En[facility]ters Encounter Date Encounter Type Care Provider Facility Start: 07-20-2023 End: 07-20-2023 ambulatory MAL SEGURA [facility] Start: 07-20-2023 End: 07-20-2023 Office outpatient visit 15 minutes Mal Segura MD Work Phone: [facility] Procedures Date Procedure Procedure Detail Performing Clinician Start: 06-24-2023 ECG 12-LEAD BRANT CHOWDHURY JB Start: 06-24-2023 End: 06-24-2023 Ecg routine ecg w/least 12 lds trcg only w/o i&r Feliz Cruz PA-C Work Phone: Start: 06-23-2023 HOLTER OR EVENT CARD IAC MONITOR BRANT SPAIN Start: 06-23-2023 DISCHARGE PATIENT JUAN JOSE CHOWDHURYJB Start: 06-23-2023 Heparin assay BRANT NING LBY Start: 06-23-2023 CBC panel - Blood by Automated count BRANT SPAIN Start: 06-23-2023 COAGULATION SCREEN CHRISTOPH SPAIN Start: 06-23-2023 Magnesium [Mass/volu me] in Serum or Plasma BRANT SPAIN Start: 06-23-[address] IVONNE JUDIT Start: 06-22-2023 CBC panel - Blood by Automated count BRANT SPAIN Start: 06-22-2023 COAGULATION SCREEN CHRISTOPH SPAIN Start: 06-22-2023 Heparin assay BRANT FI WADEY Start: 06-22-2023 Magnesium [Mass/volu me] in Serum or Plasma BRANT SPAIN Start: 06-22-[address] IVONNE JUDIT Start: 06-21-2023 Heparin assay BRANT FI LBY Start: 06-21-2023 CBC panel - Blood by Automated count BRANT SPAIN Start: 06-21-2023 COAGULATION SCREEN CHRISTOPH IRASEMA JUDIT Start: 06-21-2023 Heparin assay BRANT FI WADEY Start: 06-21-2023 Magnesium [Mass/volu me] in Serum or Plasma BRANT SPAIN Start: 06-21-[address] IVONNE JUDIT Start: 06-20-2023 CBC panel - Blood by Automated count BRANT SPAIN Start: 06-20-2023 COAGULATION SCREEN CHRISTOPH SPAIN Start: 06-20-2023 Heparin assay BRANT FI LBY Start: 06-20-2023 Magnesium [Mass/volu me] in Serum or Plasma BRANT SPAIN Start: 06-20-[address] IVONNE JUDIT Start: 06-19-2023 Heparin assay BRANT FI LBY Start: 06-19-2023 Heparin assay BRANT FI LBY Start: 06-19-2023 CBC panel - Blood by Automated count BRANT SPAIN Start: 06-19-2023 COAGULATION SCREEN CHRISTOPH SPAIN Start: 06-19-2023 Heparin assay BRANT FI LBY Start: 06-19-2023 Magnesium [Mass/volu me] in Serum or Plasma BRANT SPAIN Start: 06-19-[address] IVONNE SPAIN Start: 06-18-[address] IVONNE SPAIN Start: 06-18-2023 CBC panel - Blood by Automated count BRANT SPAIN Start: 06-18-2023 COAGULATION SCREEN CHRISTOPH VILLALPANDO JUDIT Start: 06-18-2023 Heparin assay BRANT FI LBY Start: 06-18-2023 Magnesium [Mass/volu me] in Serum or Plasma BRANT SPAIN Start: 06-18-[address] IVONNE SPAIN Start: 06-17-2023 C. DIFFICILE, PCR JUAN JOSE N JUDIT Start: 06-17-2023 CBC panel - Blood by Automated count BRANT SPAIN Start: 06-17-2023 Magnesium [Mass/volu me] in Serum or Plasma BRANT JUDIT Start: 06-17-[address] IVONNE SPAIN Start: 06-17-2023 Heparin assay BRANT MCDANIEL Start: 06-17-2023 Heparin assay BRANT NING MCDANIEL Start: 06-16-2023 aPTT in Blood by Coa gulation assay BRANT JUDIT Start: 06-16-2023 Heparin assay BRANT FI LBY Start: 06-16-2023 Bacteria identified in Blood by Culture BRANT SPAIN Start: 06-16-2023 CBC panel - Blood by Automated count BRANT SPAIN Start: 06-16-2023 TRANSTHORACIC ECHO ( TTE) LIMITED BRANT SPAIN Start: 06-16-2023 ECG 12-LEAD BRANT MUHAMMAD Start: 06-16-2023 CBC panel - Blood by Automated count BRANT SPAIN Start: 06-16-[address] IVONNE SPAIN Start: 06-16-2023 TRANSFUSE RED BLOOD CELLS BRANT SPAIN Start: 06-15-2023 IR EMBOLIZATION BRANT SPAIN Start: 06-15-2023 ANTIBODY IDENTIFICATION BRANT SPAIN Start: 06-15-2023 PATH REVIEW-IMMUNOHEMATOLOGY BRANT SPAIN Start: 06-15-2023 TYPE AND SCREEN BRANT SPAIN Start: 06-15-2023 PREPARE RBC BRANT MUHAMMAD Start: 06-15-2023 CBC panel - Blood by Automated count BRANT SPAIN Start: 06-15-[address] IVONNE SPAIN Start: 06-14-2023 CBC panel - Blood by Automated count BRANT JUDIT Start: 06-14-2023 CT ABDOMEN PELVIS W IV CONTRAST BRANT JUDIT Start: 06-14-2023 IP CONSULT TO ELECTROPHYSIOLOGY BRANT SPAIN Start: 06-14-2023 IP CONSULT TO ACUTE CARE SURGERY BRANT SPAIN Start: 06-14-2023 FL MODIFIED BARIUM S WALLOW STUDY BRANT JUDIT Start: 06-14-2023 BURLESQUE DANCER MODIFIED BARIUM SWALLOW EVALUATION BRANT JUDIT Start: 06-14-2023 CBC panel - Blood by Automated count BRANT JUDIT Start: 06-14-2023 Heparin assay BRANT FI LBY Start: 06-14-2023 Magnesium [Mass/volu me] in Serum or Plasma BRANT SPAIN Start: 06-14-2023 RENAL FUNCTION PANEL IVONNE JUDIT Start: 06-13-2023 TRANSFER PATIENT TO NEW UNIT BRANTIRASEMA SPAIN Start: 06-13-2023 BURLESQUE DANCER EVAL AND TREAT CHRISTOPH SPAIN Start: 06-13-2023 ANTIBODY IDENTIFICATION BRANT JUDIT Start: 06-13-2023 PATH REVIEW-IMMUNOHEMATOLOGY BRANT JUDIT Start: 06-13-2023 TYPE AND SCREEN BRANT JUDIT Start: 06-13-2023 CBC W Auto Different ial panel - Blood BRANT JUDIT Start: 06-13-2023 Heparin assay BRANT FI LBY Start: 06-13-2023 Magnesium [Mass/volu me] in Serum or Plasma BRANT JUDIT Start: 06-13-2023 RENAL FUNCTION PANEL IVONNE JUDIT Start: 06-12-2023 TRANSESOPHAGEAL ECHO (ANABEL) BRANT SPAIN Start: 06-12-2023 XR CHEST 1 VIEW BRANT JUDIT Start: 06-12-2023 CBC panel - Blood by Automated count BRANT JUDIT Start: 06-12-2023 CBC W Auto Different ial panel - Blood BRANT SPAIN Start: 06-12-2023 Heparin assay BRANT FI LBY Start: 06-12-2023 Magnesium [Mass/volu me] in Serum or Plasma BRANT SPAIN Start: 06-12-2023 RENAL FUNCTION PANEL IVONNE JUDIT Start: 06-11-2023 ELECTROLYTE PANEL, URINE BRANT SPAIN Start: 06-11-2023 LEGIONELLA ANTIGEN, URINE BRANT SPAIN Start: 06-11-2023 MICROSCOPIC ONLY, URINE BRANT CHOWDHURYJB Start: 06-11-2023 OSMOLALITY, URINE JUAN JOSE SPAIN Start: 06-11-2023 STREPTOCOCCUS PNEUMO NIAE ANTIGEN, URINE BRANT CHOWDHURYJB Start: 06-11-2023 URINALYSIS WITH REFL EX MICROSCOPIC BRANT CHOWDHURYJB Start: 06-11-2023 Comprehensive metabo lic 2000 panel - Serum or Plasma BRANT JUDIT Start: 06-11-2023 Magnesium [Mass/volu me] in Serum or Plasma BRANTIRASEMA SPAIN Start: 06-11-2023 Osmolality of Serum or Plasma BRANT CHOWDHURYJB Start: 06-11-2023 Phosphate [Mass/volu me] in Serum or Plasma BRANT JUDIT Start: 06-11-2023 CT ABDOMEN PELVIS W IV CONTRAST BRANTIRASEMA SPAIN Start: 06-11-2023 BLOOD GAS LACTIC ACI D, ARTERIAL BRANT JUDIT Start: 06-11-2023 CBC panel - Blood by Automated count BRANT SPAIN Start: 06-11-[address] IVONNE SPAIN Start: 06-11-2023 Bacteria identified in Blood by Culture BRANT JUDIT Start: 06-11-2023 XR CHEST 1 VIEW BRANT JUDIT Start: 06-11-2023 CBC panel - Blood by Automated count BRANTIRASEMA SPAIN Start: 06-11-2023 Comprehensive metabo lic 2000 panel - Serum or Plasma BRANT JUDIT Start: 06-11-2023 Heparin assay BRANT FI LBY Start: 06-11-2023 Magnesium [Mass/volu me] in Serum or Plasma BRANT SPAIN Start: 06-11-2023 Osmolality of Serum or Plasma BRANTIRASEMA SPAIN Start: 06-10-2023 XR CHEST 1 VIEW BRANT JUDIT Start: 06-10-2023 XR FOOT LEFT 3+ VIEWS S VIOLET JUDIT Start: 06-10-2023 CBC panel - Blood by Automated count BRANT SPAIN Start: 06-10-2023 Comprehensive metabo lic 2000 panel - Serum or Plasma BRANTIRASEMA SPAIN Start: 06-10-2023 Heparin assay BRANT FI LBY Start: 06-10-2023 Magnesium [Mass/volu me] in Serum or Plasma BRANT SPAIN Start: 06-10-2023 SERIAL TROPONIN, 1 HOUR BRANT SPAIN Start: 06-09-2023 Heparin assay BRANT BARCLAY LBY Start: 06-09-2023 STAPHYLOCOCCUS AUREU S/MRSA COLONIZATION, CULTURE BRANT CHOWDHURYJB Start: 06-09-2023 TRANSTHORACIC ECHO ( TTE) COMPLETE BRANT CHOWDHURYJB Start: 06-09-[address] IVONNE SPAIN Start: 06-09-2023 Heparin assay BRANT MCDANIEL Start: 06-09-2023 Bacteria identified in Blood by Culture BRANT JUDIT Start: 06-09-2023 PT EVAL AND TREAT JUAN JOSE SPAIN Start: 06-09-2023 RESPIRATORY VIRAL PANEL BRNAT CHOWDHURYJB Start: 06-09-2023 SARS-COV-2 PCR, SCRE EN ASYMPTOMATIC BRANT CHOWDHURYJB Start: 06-09-2023 LEGIONELLA ANTIGEN, URINE BRANT CHOWDHURYJB Start: 06-09-2023 STREPTOCOCCUS PNEUMO NIAE ANTIGEN, URINE BRANT CHOWDHURYJB Start: 06-09-2023 TRANSTHORACIC ECHO ( TTE) LIMITED BRANT CHOWDHURYJB Start: 06-09-2023 XR CHEST 1 VIEW BRANT JUDIT Start: 06-09-2023 CBC W Auto Different ial panel - Blood BRANT JUDIT Start: 06-09-2023 COAGULATION SCREEN CHRISTOPH VILLALPANDO JUDIT Start: 06-09-2023 Comprehensive metabo lic 2000 panel - Serum or Plasma BRANT JUDIT Start: 06-09-2023 Lactate [Moles/volum e] in Serum or Plasma BRANTIRASEMA SPAIN Start: 06-09-2023 Magnesium [Mass/volu me] in Serum or Plasma BRANT JUDIT Start: 06-09-2023 Natriuretic peptide B [Mass/volume] in Blood BRANT JUDIT Start: 06-09-2023 TROPONIN SERIES- (IN ITIAL, 1 HR) BRANT JUDIT Start: 06-09-2023 BLOOD GAS ARTERIAL FULL PANEL BRANT SPAIN Start: 06-09-2023 ADMIT TO INPATIENT CHRISTOPH IRASEMA JUDIT Start: 06-09-2023 MEASURE HEIGHT BRANT ELLIS Start: 06-09-2023 PULSE OXIMETRY, CONTINUOUS BRANT SPAIN Start: 06-09-2023 WEIGH PATIENT BRANT OLVERA H/O: hysterectomy BALDEV KULKARNI MD History of operative procedure on lumbar spinal structure BALDEV KULKARNI MD Plan of Treatment Date Care Activity Detail Author Start: 06-17-2026 DTaP/Tdap/Td Vaccines (2 - Td or Tdap) DTaP/Tdap/Td Vaccines (2 - Td or Tdap) [facility] Start: 10-26-2023 End: 10-26-2023 Patient encounter procedure 10/26/2023 3:45 PM EDT Office Visit [facility] [address] [place] [phone] Mal Segura MD [address] [place] [address] [facility] Start: 08-12-2023 End: 08-12-2023 Patient encounter procedure 08/12/2023 8:30 AM EST Office Visit [facility] [address] [place] [phone] [place] [address] [place] [address] [facility] Start: 07-20-2023 End: 07-20-2023 Patient encounter procedure 07/20/2023 11:00 AM EST Office Visit [facility] [address] [place] [phone] Mal Segura MD [address] [place] [address] [facility] Start: 07-28-2022 COVID-19 Vaccine (3 - Moderna series) COVID-19 Vaccine (3 - Moderna series) [facility] Start: 06-11-2011 Zoster Vaccines (2 of 3) Zoster Vaccines (2 of 3) [facility] Start: 1999 Hepatitis B Vaccines (1 of 3 - Risk 3-dose series) Hepatitis B Vaccines (1 of 3 - Risk 3-dose series) [facility] Start: 1958 Hepatitis A Vaccines (1 of 2 - Risk 2-dose series) Hepatitis A Vaccines (1 of 2 - Risk 2-dose series) [facility] Start: 1945 Pneumococcal Vaccine: 65+ Years (1 - PCV) Pneumococcal Vaccine: 65+ Years (1 - PCV) [facility] Start: 1939 Lipid panel Lipid Panel [facility] Start: 1939 Medicare Annual Wellness Visit Medicare Annual Wellness Visit (AWV) [facility] Start: 1940 Screening for osteoporosis Bone Density Scan [facility] Start: 1940 Thyroid stimulating hormone measurement TSH Level [facility] Immunizations Immunization Date Immunization Notes Care Provider Fa [facility] 06-05-2020 influenza virus vaccine, unspecified formulation BALDEV KULKARNI MD [facility] Payers Date Payer Category Payer Medicare HUMANA MEDICARE HUMANA GOLD CHOICE [id number] 2017-Present [address] [address] [place] [address] [id number] 2017 Medicare [id number] 1940 Unknown [id number] 1939 Unknown [id number] 1939 Unknown [id number] 1939 Unknown [id number] 1939 Unknown [id number] 1939 Unknown [id number] Social History Date Type Detail Facility Start: 06-08-2023 End: 07-05-2023 Tobacco smoking status NHIS Never smoked tobacco [facility] Start: 06-08-2023 Tobacco use and exposure Smokeless tobacco non-user [facility] Work Phone: Start: 06-16-2023 End: 07-20-2023 Alcohol intake Lifetime non-drinker (finding) [facility] Work Phone: Start: 06-09-2023 End: 06-23-2023 History of Social function [facility] Start: 06-09-2023 End: 06-23-2023 [facility] [employer] [facility] Has [employer], [employer], or water [employer] threatened to shut off services in your home in past 12Mo No [facility] How often to you hav e a drink containing alcohol? Never [facility] Work Phone: How many standard drinks containing alcohol do you have on a typical day? Patient does not drink [facility] Work Phone: (I/We) worried norma er (my/our) food would run out before (I/we) got money to buy more. Never true [facility] Work Phone: Start: 1940 Sex Assigned At Not on file [facility] Work Phone: Start: 05-29-2023 End: 07-20-2023 Exposure to SARS-CoV-2 (event) Not sure [facility] Work Phone: Sex Assigned At Female [facility] Functional Status Date Assessment Result Facility 07-05-2023 Functional Status Standard Safet y ID band on, Allergy Band on, Call device within reach, Bed in low position, Wheels locked, Upper/Half-Length side-rails up, Bedside Cart Locked, Safety level maintained [facility] Mental Status Date Assessment Result Facility 07-05-2023 Mental Status Orientation Oriented x 4 [facility] History of Present illness Narrative 07-20-2023 Mal Segura MD - 07/20/2023 11:00 AM EST Note Date & Type Note Facility 07-20-2023 History of Present illness Narrative [facility] Cardiology Outpatient Follow-up Visit Reason for Visit: hospital follow-up for atrial fibrillation HPI: Modesta Vaughan is a 82 y.o. female who presents today for a hospital discharge follow-up for atrial fibrillation, establish care with general cardiology. Past medical history of atrial fibrillation ([id number]; on coumadin- goal INR 2-3), HTN, DLD, chronic lower back pain, left rectus sheath hematoma (05/2023- s/p IR coil embolization 06/15/2023), and thrombocytosis. Patient was previously admitted to [facility] 06/08-06/23/2023. Patient was transferred from [facility] to [facility] for pericardial effusion. Admitted to the CICU on BiPAP, she denied any chest pain but persistently coughing, HR 139, BP 128/ 78, labs; ABG consistent with respiratory alkalosis, normal PO2. She was switched from BIPAP to 4 L nasal cannula. Labs; NA 128, K 4.7, Cr 0.5, WBC 17, Hb 9, PLT 650, lactate 1.3, BNP 300, troponin 12. Chest x-ray consistent with pulmonary edema and vascular congestion, left pleural effusion. Bedside TTE showed normal EF with thickening of the septal wall, moderate pericardial effusion, moderate MV calcification, mild MR, IVC 2.3, no tamponade findings. EKG showed a flutter with no ST changes or ischemic signs. Due to finding of volume overload, patient treated with Lasix 20 IV, monitored for any evolving features of cardiac tamponade, A-fib is managed with metoprolol 25 twice daily and heparin gtt. Additionally managing CAP with IV ABX. Pt was switched to Cardizem PO 90mg TID. Amlodipine and metoprolol dc/ed. Strep pneumo urine came back positive, discontinue Azithromycin and began Zosyn. Pt reported a fall on Wednesday with some swelling of her L foot. X-ray ordered- no fracture. Pt had continued wheezing unresponsive to nebulizer, ordered 40 IV Lasix and increased Cardizem to 120 TID for elevated HR. Her Cardizem was switched to a drip for better HR control. Watchman CT ordered for possible cardioversion. Pt complained of continuous abdominal pain and constipation. Enema unsuccessful, CT abd pelvis w contrast ordered as pt reports a history of diverticulosis. Repeat lactate (1.2), CBC, RFP ordered as well. Abx broadened to Zosyn and completed a 7-day course (06/11-06/17). EKG A Flutter, - 06/11 CT with contrast revealed no obvious LV thrombus. 06/11 CT with contrast revealed [id number] L rectus abdominus hematoma (H/H stable). 06/12 ANABEL without evidence of LV thrombus and DCCV was attempted. Amiodarone gtt initiated for afib rate and potential rhythm control. Digoxin loaded overnight of 06/11-06/12 for rate control (persistent afib and soft BP). Discharged with event monitor and started on coumadin (PCP managing- Dr. Coy Hall / Dr. Manju Staton in [facility]). Discharged home without diuretic therapy as patient was euvolemic on exam (Dry weight 69.9 kg). Modesta presented to cardiology clinic on 07/20/2023. Feeling better after getting out of hospital. Had rash from amiodarone > seen in ED > amiodarone stopped and given short course of prednisone (completed). Rash rash resolved. Feeling ok. No chest pains, dyspnea, orthopnea, PND, syncope, or pedal edema. Tolerating coumadin without significant bleeding issues. Holter monitor in place; results pending. Past Medical History: - As above Surgical History: She has a past surgical history that includes IR embolization (06/15/2023). Family History: - no pertinent family history Allergies: Nitroglycerin, Amiodarone, Pseudoephedrine, and Triprolidine Social History: - Non-smoker; no alcohol use; no illicit drug use Prior Cardiovascular Testing (Personally Reviewed): IR embolization (06/15/2023) 1. Left inferior epigastric and selective downstream branch arteriography demonstrating abnormal spasm and alternating dilation of distal branches adjacent to the left rectus sheath hematoma. No active extravasation is definitively shown. 2. Coil embolization of the left inferior epigastric artery. CT Abdomen / Pelvis (06/14/2023) 1. Interval increase in size of a 24.7 x 7.9 x 5.9 cm left rectus muscle hematoma with foci of active contrast extravasation, concerning for active bleeding. New curvilinear hyperdensity within the extraperitoneal space, along the anterior aspect of the bladder likely represents additional hematoma extending from the pelvic wall. 2. Hepatic steatosis, for correlation with liver function tests. 3. Liquid stool within the ascending colon, correlate with diarrhea. No colonic wall thickening or pericolic inflammatory changes. 4. Interval decrease in trace right and mild left pleural effusions. ANABEL (06/12/2023) 1. Left ventricular systolic function is normal. 2. The left atrium is enlarged. 3. No left atrial mass. 4. No left atrial thrombus. TTE (06/08/2023) 1. Left ventricular systolic function is normal with a 65% estimated ejection fraction. 2. There is a small to moderate pericardial effusion Review of Systems: Review of Systems Constitutional: Negative. HENT: Negative. Eyes: Negative. Cardiovascular: Negative for chest pain, orthopnea, palpitations, paroxysmal nocturnal dyspnea and syncope. Respiratory: Negative. Endocrine: Negative. Hematologic/Lymphatic: Negative. Skin: Negative. Musculoskeletal: Positive for arthritis. Gastrointestinal: Negative. Genitourinary: Negative. Neurological: Negative. Psychiatric/Behavioral: Negative. Allergic/Immunologic: Negative. Outpatient Medications: Current Outpatient Medications: acetaminophen (Tylenol) 325 mg tablet, Take 2 tablets (650 mg) by mouth every 6 hours if needed for mild pain (1 - 3)., Disp: 30 tablet, Rfl: 0 amLODIPine (Norvasc) 10 mg tablet, Take 1 tablet (10 mg) by mouth once daily., Disp: , Rfl: aspirin 81 mg EC tablet, Take 1 tablet (81 mg) by mouth once daily., Disp: , Rfl: cetirizine (ZyrTEC) 10 mg tablet, Take 1 tablet (10 mg) by mouth once daily at bedtime., Disp: , Rfl: metoprolol succinate XL (Toprol-XL) 25 mg 24 hr tablet, Take 1 tablet (25 mg) by mouth 2 times a day., Disp: , Rfl: nitrofurantoin, macrocrystal-monohydrate, (Macrobid) 100 mg capsule, Take 1 capsule (100 mg) by mouth once daily at bedtime., Disp: , Rfl: pantoprazole (ProtoNix) 40 mg EC tablet, Take 1 tablet (40 mg) by mouth once daily in the morning. Take before meals. Do not crush, chew, or split. Do not start before June 24, 2023., Disp: 30 tablet, Rfl: 3 pravastatin (Pravachol) 20 mg tablet, Take 1 tablet (20 mg) by mouth once daily., Disp: , Rfl: spironolactone (Aldactone) 25 mg tablet, Take 1 tablet (25 mg) by mouth once daily., Disp: 30 tablet, Rfl: 3 valsartan (Diovan) 160 mg tablet, Take 1 tablet (160 mg) by mouth once daily. Do not start before June 24, 2023., Disp: 30 tablet, Rfl: 3 warfarin (Coumadin) 3 mg tablet, Take 1 tablet (3 mg) by mouth once daily at bedtime. Take as directed per After Visit Summary., Disp: 30 tablet, Rfl: 3 Last Recorded Vitals BP 125/53 (BP Location: Left arm, Patient Position: Sitting, BP Cuff Size: Adult) Pulse 54 Ht 1.6 m (5' 3 ) Wt 66.7 kg (147 lb) SpO2 97% BMI 26.04 kg/m Physical Exam: Physical Exam HENT: Head: Normocephalic. Mouth/Throat: Mouth: Mucous membranes are moist. Eyes: Extraocular Movements: Extraocular movements intact. Conjunctiva/sclera: Conjunctivae normal. Neck: Vascular: No JVD. Cardiovascular: Rate and Rhythm: Bradycardia present. Comments: HR 50s, asymptomatic Pulmonary: Effort: Pulmonary effort is normal. No respiratory distress. Breath sounds: Normal breath sounds. Abdominal: General: Bowel sounds are normal. There is no distension. Palpations: Abdomen is soft. Musculoskeletal: General: No swelling. Skin: General: Skin is warm and dry. Neurological: General: No focal deficit present. Mental Status: She is alert. Cranial Nerves: No cranial nerve deficit. Motor: No weakness. Psychiatric: Mood and Affect: Mood normal. Behavior: Behavior normal. Lab/Radiology/Diagnostic Review: Labs Lab Results Component Value Date GLUCOSE 106 (H) 06/23/2023 CALCIUM 9.3 06/23/2023 NA 135 (L) 06/23/2023 K 4.0 06/23/2023 CO2 24 06/23/2023 CL 99 06/23/2023 BUN 9 06/23/2023 CREATININE 0.42 (L) 06/23/2023 Lab Results Component Value Date WBC 13.7 (H) 06/23/2023 HGB 8.6 (L) 06/23/2023 HCT 26.1 (L) 06/23/2023 MCV 82 06/23/2023 PLT 572 (H) 06/23/2023 Lab Results Component Value Date BNP 308 (H) 06/08/2023 No results found for: TSH Assessment: 82 y.o. female who presents today for a hospital discharge follow-up for atrial fibrillation. Past medical history of atrial fibrillation ([id number] 4; on coumadin- goal INR 2-3), HTN, DLD, chronic lower back pain, left rectus sheath hematoma (05/2023- s/p IR coil embolization 06/15/2023), and thrombocytosis. Modesta presented to cardiology clinic on 07/20/2023. Feeling better after getting out of hospital. Had rash from amiodarone > seen in ED > amiodarone stopped and given short course of prednisone (completed). Rash rash resolved. Feeling ok. No chest pains, dyspnea, orthopnea, PND, syncope, or pedal edema. Tolerating coumadin without significant bleeding issues. Holter monitor in place; results pending. BP well-controlled; euvolemic on exam. Overall Plan: 1. Atrial fibrillation ([id number] 4) - Continue coumadin with goal INR 2-3; if patient unable to tolerate systemic anti-coagulation would then refer to structural heart clinic for consideration of KATARZYNA occlusion (Watchman) device - Continue beta blockade; currently well-rate controlled - Holter monitor results pending 2. HTN (goal BP < 130/90 mmHg; currently well-controlled) - continue amlodipine, valsartan, metoprolol, spironolactone 3. DLD (goal LDL < 100 mg/dl) - continue pravastatin; dietary and lifestyle modifications 4. Left rectus sheath hematoma - Improving; s/p coil embolization 06/15/2023 - continue coumadin as tolerated 5. Discussed red flag symptoms that should prompt immediate medical attention; patient verbalized understanding Disposition- return to cardiology clinic in 3-6 months Thank you for your visit today. Please contact our office with any questions. Mal Segura MD documented in this encounter [facility] Work Phone: Instructions 07-20-2023 Patient Instructions Note Date & Type Note Facility 07-20-2023 Instructions Mal Segura MD - 07/20/2023 11:00 AM EST Your heart rate is currently well controlled. We will continue coumadin, please follow-up with your primary care. If they are not able to manage your coumadin we would then refer you to coumadin clinic. Thank you for your visit today. Please contact our office (via Feedjithart or phone) with any additional questions. Please call my nurse Analia with any questions. [facility] Lawrence Analia, RN/Clinic Nurse for: Dr. Desire Mccabe [address], [address] [place] [address] Press Option 5 then Option 3 to speak with the Clinic Nurse (Analia) To Reach: Billing Questions - [phone] Scheduling / Rescheduling - Option 1 Refills / Medication Requests - Option 3 General Office / Information Systems Administrator - Option 4 Results - Option 6 Medical Records - Option 7 Repeat Options - Option 9 documented in this encounter [facility] Work Phone: Hospital Discharge instructions 07-05-2023 Note Date & Type Note Facility 07-05-2023 Hospital Discharg e instructions Patient Education 07/05/2023 12:39:53 Drug Reaction, Other Reaction to Medicine (Other Type) You are having a reaction to a medicine you have taken. This may not be the same as an allergic reaction. It is an undesired, unfavorable reaction, or a side effect of a medicine. This can cause a variety of symptoms, including: Dizziness or headache Rash Flushing or hot sensation Nausea, vomiting, or stomach pain Diarrhea or constipation Trouble breathing High or low blood pressure A reaction can be an upset stomach from something like aspirin or ibuprofen, feeling faint after taking a blood pressure medicine, feeling anxious, and many other things. Symptoms of a medicine reaction can range from very mild to very severe. In most cases, the reaction goes away within 1 to 12 hours. But it will probably occur again if you take this same medicine. Your healthcare provider will advise you whether to change how much, when, or how often you take this medicine. He or she may also advise you to discontinue this medicine or switch to another one. Home care Another medicine may be recommended to reduce your symptoms until the medicine s effect wears off. Follow your healthcare provider s advice. When the medicine s effect has worn off, there should be no further problem as long as you don't take the same medicine again. Ask your healthcare provider if you should also avoid similar medicines. Write down the information so you will remember it. Make certain the medicine reaction is documented in your medical record. Follow-up care Follow up with your healthcare provider, or as advised if your symptoms are not better within 24 hours. When to seek medical advice Call your healthcare provider right away if any of these occur. New symptoms that concern you Worsening of your current symptoms, including rash or facial swelling Symptoms that are not relieved by the treatment advised Fever of 100.4 F (38 C) or higher, or as advised by your healthcare provider Call 911 Call 911 if any of these occur: Trouble breathing or swallowing, or wheezing Hoarse voice or trouble speaking Confusion Extreme drowsiness or trouble awakening Fainting or loss of consciousness Rapid heart rate or slow heart rate Very low or very high blood pressure Vomiting blood, or large amounts of blood in stool Seizure [id number] [employer]. [address] [place] [address]. All rights reserved. This information is not intended as a substitute for professional medical care. Always follow your healthcare professional's instructions. Follow Up Care 07/05/2023 11:05:09 With:COY HALL DO Address: [facility] [address] [place] [phone] When:2-4 days [facility] Emergency department Discharge summary 07-05-2023 Note Date & Type Note Facility 07-05-2023 Emergency department Discharge summary Discharge Instructions Thank you for allowing [facility] to assist you with your healthcare needs. The following is important discharge information regarding your hospital visit. Diagnosis from Today's Visit Drug rash Rash What to Do Next Instructions from Your Care Team No qualifying data available. Post Acute Orders No qualifying data available. You Need to Schedule the Following Appointments Follow Up with COY HALL DO When Within 2-4 days Where: [facility] [address] [place] [address] [phone] Allergies Nitro TD Patch-A pseudoephedrine (unknown) triprolidine (unknown) Medications Please ask your primary doctor or pharmacist before taking any other medication not listed, including over the counter drugs, herbal medications, vitamins and or supplements as they may interact with your home medications. What How Much When Instructions Last Dose New methylPREDNISolone (Medrol Dosepak 4 mg oral tablet) Per Dosepak Instructions by mouth Every day Duration: 6 Days Printed Prescription Unchanged amLODIPine 10 Milligram by mouth Once a day Unchanged aspirin 81 Milligram by mouth Once a day Unchanged dilTIAZem (Cardizem CD 120 mg/ 24 hours oral capsule, extended release) 1 cap by mouth Once a day Unchanged hydroCHLOROthiazide (hydroCHLOROthiazide 12.5 mg oral tablet) 1 tab(s) by mouth Once a day Unchanged levoFLOXacin (levoFLOXacin 750 mg oral tablet) 1 tab(s) by mouth Every other day Unchanged potassium chloride (potassium chloride 20 mEq oral tablet, extended release) 1 tab(s) by mouth Once a day Unchanged pravastatin (pravastatin 40 mg oral tablet) 1 tab(s) by mouth Once a day Unchanged telmisartan (telmisartan 80 mg oral tablet) 1 tab(s) by mouth Once a day Please take this list to your next doctor s visit. Bring all medications you take, including over the counter medications, herbals and other supplements with you to your doctor s visit. Patients and families are reminded to discard old lists and to update any records with all medication providers or retail pharmacies. Education Materials Reaction to Medicine (Other Type) You are having a reaction to a medicine you have taken. This may not be the same as an allergic reaction. It is an undesired, unfavorable reaction, or a side effect of a medicine. This can cause a variety of symptoms, including: Dizziness or headache Rash Flushing or hot sensation Nausea, vomiting, or stomach pain Diarrhea or constipation Trouble breathing High or low blood pressure A reaction can be an upset stomach from something like aspirin or ibuprofen, feeling faint after taking a blood pressure medicine, feeling anxious, and many other things. Symptoms of a medicine reaction can range from very mild to very severe. In most cases, the reaction goes away within 1 to 12 hours. But it will probably occur again if you take this same medicine. Your healthcare provider will advise you whether to change how much, when, or how often you take this medicine. He or she may also advise you to discontinue this medicine or switch to another one. Home care Another medicine may be recommended to reduce your symptoms until the medicine s effect wears off. Follow your healthcare provider s advice. When the medicine s effect has worn off, there should be no further problem as long as you don't take the same medicine again. Ask your healthcare provider if you should also avoid similar medicines. Write down the information so you will remember it. Make certain the medicine reaction is documented in your medical record. Follow-up care Follow up with your healthcare provider, or as advised if your symptoms are not better within 24 hours. When to seek medical advice Call your healthcare provider right away if any of these occur. New symptoms that concern you Worsening of your current symptoms, including rash or facial swelling Symptoms that are not relieved by the treatment advised Fever of 100.4 F (38 C) or higher, or as advised by your healthcare provider Call 911 Call 911 if any of these occur: Trouble breathing or swallowing, or wheezing Hoarse voice or trouble speaking Confusion Extreme drowsiness or trouble awakening Fainting or loss of consciousness Rapid heart rate or slow heart rate Very low or very high blood pressure Vomiting blood, or large amounts of blood in stool Seizure [id number] [employer]. [address] [place] [address], [place] [address]. All rights reserved. This information is not intended as a substitute for professional medical care. Always follow your healthcare professional's instructions. Additional Information VACCINATE! IT SAVES LIVES! Members of the community who have not yet received the COVID-19 vaccine and would like to receive it can visit one of [facility] vaccine clinics. There are many vaccine clinic locations within the [facility]. For locations and available times, please visit www.gettheshot.coronavirus.[place].gov /. It is important to note that some COVID mobile vaccine clinics are held outdoors and may be canceled in rainy or stormy conditions. To learn more about pediatric vaccinations (ages 5-11), we invite you to visit the [facility] webpage. [email or web address]-[email or web address] -[email or web address]-Questions.[email or web address] To learn more about the COVID-19 vaccine, we invite you to visit the CDC website for a list of frequently asked questions. https://www.cdc.gov/coronavirus/201 9-ncov/vaccines/faq.html [facility] Patient Portal Access Instructions: Stay connected with your healthcare team and access your personal medical information anytime with the [facility] Patient Portal. If you would like a full copy of your medical records please contact the [facility] Medical Records Department Wednesday through Wednesday between 8a.m. and 4:30p.m. Please follow the directions below to access the portal: 1.Access the email account you provided upon registration to the hospital.2.Look for an invitation email from [facility].3.Open the email and access the invitation link: Accept Invitation to [facility].Fill in the required campa to create your account. Sign into [email or web address] environment with your username and password that you created in the above steps to stay up to date. You can then view a summary of results, a summary of your visits, and the ability to download your summaries to your computer or send the information securely to a physician. Remember that your healthcare information is confidential, so carefully consider who you will allow to register on the [facility] Patient Portal for access to your information. You can also access the [facility] Patient Portal on the [employer] anaya. Simply click on Health Records under Health Data and then click on the [employer] logo. HOW TO SAFELY DISPOSE OF PRESCRIPTION MEDICATIONS Please use one of the following methods to safely dispose of your unused medications. 1.Use a drug disposal kit: the drug disposal pouch allows you to safely discard your old and unused drugs. Ask your nurse to give you one when you are discharged.2.Visit a local take-back location: Many local pharmacies and police departments have programs that collect old and unwanted prescription drugs. Call your local pharmacy or go to http://[employer].Voicendo/3P7Bz8m to find one close to you.3.Make use of household items: Use cat litter or old coffee grounds to dispose medications if other options are not available. Mix your drugs with these household products, seal them in an airtight container and throw it into the garbage. Call [facility]: [phone] to be sure your drugs can be disposed of in this way. Some medicines may require a different approach.4.Never flush your medications down the toilet. IF YOU HAVE BEEN PRESCRIBED AN OPIOIDS FOR PAIN If you have been prescribed an opioid (such as hydrocodone, oxycodone or morphine), it is critical to understand the possible side effects and risks of opioid pain medications. Even when taken as directed, opioids can have several side effects including: Tolerance, meaning you might need to take more of a medication for the same pain relief. Nausea, vomiting and/or constipation. Sleepiness, dizziness, dry mouth, confusion, depression or itching. Physical dependence, meaning you have withdrawal symptoms when a medication is stopped ? this can develop within a few days. KNOW YOUR RESPONSIBILITIES It is important to know exactly how much and how often to take the opioid pain medications you are prescribed. Never take opioids in higher amounts or more often than prescribed. Do not combine opioids with alcohol or other drugs that cause drowsiness, such as benzodiazepines, also known as benzos, including diazepam and alprazolam, muscle relaxants or sleep aids. Never sell or share prescription opioids. This is illegal. Store opioids in a secure place and out of reach of others (including children, family, friends and visitors). The last page(s) of this document has been signed and retained as a CHART COPY Signatures Patient Education Materials Drug Reaction, Other Medication Leaflets My discharge plan and instructions have been reviewed and explained to me and ICLEMENT PATRICIA S understand my current condition and have read and understand these discharge instructions. I have received a written copy of the plan/instructions. If I have questions, I am aware that I should contact my doctor. 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/Agricultural Chemist Signature: ____ Date/Time: Relationship to Patient: __ Witness Name/Signature: Date/Time: [facility] Evaluation + Plan note Note Date & Type Note Facility Evaluation + Plan note Future Appointments Appointment Date:07/07/2023 11:00:00 AM Scheduled Provider:SAMMI ARREDONDO Location:[facility] Appointment Type:CV OV [facility] Evaluation note Note Date & Type Note Facility documented in this encounter [facility] Work Phone: Hospital course Narrative Note Date & Type Note Facility Hospital course Narrative No data available for this section [facility] Reason for referral (narrative) Consultation (Routine) - Authorized Note Date & Type Note Facility Referral ID Status Reason Start Date Expiration Date V isits Requested Visits Authorized [id number] Authorized 07/20/2023 07/19/2024 1 1 [facility] Work Phone: Advance Directives No Advanced Directives Records FoundLatest Code Status on File Code Status Date Activated Date Inactivated Comments Full Code 06/08/2023 10:37 PM 06/23/2023 4:13 PM Question Answer Comments Plan of Care: Code Status Discussion Completed Decision Maker: Patient Latest Code Status on File Code Status Date Activated Date Inactivated Comments Full Code 06/08/2023 10:37 PM 06/23/2023 4:13 PM Question Answer Comments Plan of Care: Code Status Discussion Completed Decision Maker: Patient Summary Purpose Family History No Family History Records Found Additional Source Comments Patient Care team informatio n (unrecognized section and content) INFORMATION SOURCE (unrecogn ized section and content) DATE CREATED AUTHOR AUTHOR'S NELIIZ ATION 08/01/2023 [facility] DATE CREATED AUTHOR AUTHOR'S ORGANVARUN ATION 08/04/2023 [facility]) FOR RECORDS PERTAINING TO PATIENTS WHO ARE OR HAVE BEEN ENROLLED IN A CHEMICAL DEPENDENCY/SUBSTANCEABUSE PROGRAM, SOME INFORMATION MAY BE OMITTED. This clinical summary was aggregated from multiple sources. Caution should be exercised in using it in the provision of clinical care. This summary normalizes information from multiple sources, and as a consequence, information in this document may materially change the coding, format and clinical context of patient data. In addition, data may be omitted in some cases. CLINICAL DECISIONS SHOULD BE BASED ON THE PRIMARY CLINICAL RECORDS. [facility]. provides no warranty or guarantee of the accuracy or completeness of information in this document.
== END | disposition home or self-care (01) ==
LOC: BIMLAB 15:41
PROVIDERS: PCP Family Medicine; Visit Provider Family Medicine
DX: L97.221 Non-pressure chronic ulcer of left calf limited to breakdown of skin (principal); E87.1 Hypo-osmolality and hyponatremia; D64.9 Anemia, unspecified
CPT/HCPCS: 36415; 80048; 85025

== ENCOUNTER → 2024-04-26 | Outpatient (CLI) | payer MEDICARE, SELFPAY ==
[2024-04-26 15:35] LABS: Anion Gap 8 (5-15); BUN 23 mg/dL (7-18); BUN/Creat Ratio 36.3 RATIO (10-20); Calcium,Total 9.6 mg/dL (8.5-10.1); Chloride 103 mmol/L (98-107); Creatinine, Serum 0.63 mg/dL (0.55-1.02); EST Glomerular Filtration Rate 95 mL/min (>60); Est Glom Filt Rate - Afr Amer 115 mL/min (>60); Glucose 105 mg/dL (74-106); Potassium 4.5 mmol/L (3.5-5.1); Sodium Level 137 mmol/L (136-145)
== END | disposition home or self-care (01) ==
LOC: BIMLAB 11:55
PROVIDERS: PCP Family Medicine; Referring Provider Family Medicine; Visit Provider Family Medicine
DX: E87.1 Hypo-osmolality and hyponatremia (principal)
CPT/HCPCS: 36415; 80048

== ENCOUNTER 2024-06-01 15:50 | Emergency (ER) | payer MEDICARE, SELFPAY ==
[2024-06-01 15:50] VITALS: BP 142/72; PULSE 51; RESP 16; TEMP 36.6; O2SAT 97
--- NOTE | 2024-06-01 16:20 | EX.ED.DYSGE1 ---
HPI History of Present Illness Chief Complaint: Lower Extremity Injury Informant: patient and family Narrative Narrative: 83-year-old female states she was sent from urgent care because of her back pain. She has had pain in her left low back for about the past week it has been off-and-on mostly when she tried to does things especially getting out of bed or sitting position. It is not there all the time. If she is resting is not bothering her. She denies any pain radiating down her legs or numbness or weakness. No bowel or bladder dysfunction. Family and patient are seen at urgent care center here because of a lump in her abdomen it has been bothering her, she does not know how long it has been hurting, however they obtained x-rays of her left hip, she has no groin pain, and they were normal and they were concerned that the lump in her abdomen and her back pain were linked and advised her to come to the ER. She states at times at night she detects some soreness in her left lower quadrant, she denies any nausea, vomiting, or trouble with bowel movements or urination. They are concerned because a year ago she had some type of internal bleeding in her belly that required a transfer to [facility] and clips in what ever structure was bleeding. It was in this region of the abdomen. [facility] Medical History Non-smoker Chest pain Chronic pain Atrial fibrillation Shortness of breath NECK/BACK PAIN Cardiac murmur History of hemorrhoids Frequent UTI Frequent headaches Chronic back pain History of stomach ulcers Arthritis Hyperlipemia Hypertension History of pneumonia Home Medications ?Medication ?Instructions ?Recorded ?Last Taken ?Type aspirin 81 mg tablet,delayed 81 mg PO DAILY HEART 11/24/16 Unknown History release cetirizine 10 mg tablet (Zyrtec) 10 mg PO QHS allergy symptoms 06/07/23 Unknown History amlodipine 10 mg tablet 10 mg PO DAILY BP #90 tabs 12/28/23 Unknown Rx nitrofurantoin macrocrystal 50 mg 50 mg PO QHS #90 caps 04/06/24 Unknown Rx capsule pantoprazole 40 mg tablet,delayed 40 mg PO DAILY #90 tabs 04/11/24 Unknown Rx release pravastatin 40 mg tablet 40 mg PO DAILY CHOLESTROL #90 tabs 04/11/24 Unknown Rx spironolactone 25 mg tablet 25 mg PO DAILY #90 tabs 04/11/24 Unknown Rx valsartan 160 mg tablet 160 mg PO .qd #90 tabs 04/11/24 Unknown Rx metoprolol succinate 25 mg 25 mg PO BID #180 tabs 04/26/24 Unknown Rx tablet,extended release 24 hr hydrocodone-acetaminophen 5-325mg 1 tab PO Q6H PRN pain 2 days #6 06/01/24 Unknown Rx 5mg-325mg TABLETS meloxicam 7.5 mg tablet 7.5 mg PO DAILY PRN pain #5 tabs 06/01/24 Unknown Rx Allergy/AdvReac Type Severity Reaction Status Date / Time nitroglycerin Allergy Mild NEEDS Verified 06/01/24 15:52 FOLLOW-UP amiodarone Allergy Rash Verified 06/01/24 15:52 chlorpheniramine (From AdvReac Other Verified 06/01/24 15:52 Actifed Cold-Allergy) phenylephrine (From Actifed AdvReac Other Verified 06/01/24 15:52 Cold-Allergy) pseudoephedrine (From AdvReac Other Verified 06/01/24 15:52 Actifed Cold-Allergy) triprolidine (From Actifed AdvReac Other Verified 06/01/24 15:52 Cold-Allergy) Family History Mother Diabetes Hypertension CVA (cerebral vascular accident) Father Myocardial infarction, Onset Age: 80 Brother Cancer Surgical History History of tonsillectomy History of appendectomy History of hysterectomy History of back surgery History of foot surgery Social History Smoking Status: Never smoker alcohol intake: never substance use type: does not use what type of physical activity do you participate in: walking frequency: daily ROS ROS ED Constitutional Constitutional ED: Denies chills or fever(s) Eyes Eyes: Denies change in vision or diplopia ENT ENT ED: Denies rhinorrhea or sore throat Cardiovascular Cardiovascular: Denies chest pain or palpitations Respiratory/Chest Respiratory/Chest: Denies cough or dyspnea Gastrointestinal Gastrointestinal: Reports abdominal pain; Denies diarrhea, nausea or vomiting Genitourinary Genitourinary ED: Denies dysuria or hematuria Musculoskeletal Musculoskeletal: Reports back pain; Denies neck pain Integumentary Denies abscess or rash Neurologic Neurologic: Denies headache(s), paresthesias or weakness Psychiatric Psychiatric: Denies suicidal thoughts EXAM Physical Exam Const Vital Signs: 06/01/24 15:50 06/01/24 19:50 Temperature 98 F Temperature Source Temporal Pulse Rate 51 L 61 Respiratory Rate 16 16 Blood Pressure 142/72 H 145/71 H Blood Pressure Mean 95 95 Pulse Ox 97 98 Oxygen Delivery Method Room Air Room Air Positive well nourished and well developed General Appearance ED: well developed and NAD HEENT Reports moist mucous membranes normocephalic and atraumatic Eyes PERRL and EOMs intact bilaterally Neck full ROM and supple Resp normal respiratory effort and clear to auscultation bilaterally Cardio regular rate and regular rhythm GI non-distended GI Narrative: Patient is tender on her symphysis pubis. In the suprapubic area, there is tenderness and there is something palpable there. Unclear if it is a mass or scar tissue, there is no overlying skin abnormalities or color changes or bruising/ecchymosis, it is not pulsatile. It is just left of midline. Rest of the abdomen is benign. There is no guarding or rebound tenderness. Auscultation: normoactive bowel sounds Palpation: soft Back/Spine no CVA tenderness Back/Spine Narrative: Straight leg raises are negative bilaterally, raising the left 1 increases/triggers the pain in her left low back, at the SI joint area where she is tender. With leaving her leg resting and not performing a straight leg raise, she does not have pain nor does she have tenderness. General Back: other FROM Extremity normal to inspection General Extremety ED: Negative for edema, pulses abnormal or tenderness General Extremity: Negative for edema or pulses abnormal Neuro oriented x3, CN's II-XII intact bilaterally and no sensory deficits noted Neuro Narrative: DTRs of the lower extremities 1+ and symmetric no clonus, toes downgoing bilaterally. Sensorium / Orientation: awake and alert Motor Exam: strength 5/5 throughout Psych mental status grossly normal Skin no rashes or lesions noted and no wounds MDM MDM MDM Narrative Medical decision making narrative: I think this patient has sacroiliitis. I do not think this is linked to the abdominal pain she is having. I offered a CT scan of the abdomen/pelvis to help him evaluate what might be causing her abdomen to hurt off-and-on and they are amenable to that. I reviewed the CT images and the result, it basically shows what appears to be a spigelian hernia in the area of the lump lower abdominal wall, including some colon and some intra-abdominal fat no signs of strangulation or obstruction. The rest of the scan she has no other acute abnormalities. Is also noted that her liver enzymes are abnormal. I asked her about this and gallbladder symptoms, she states she is periodically having abdominal discomfort after meals but not all the time the last time she did was about a week ago no vomiting or fevers. We obtained an ultrasound of her gallbladder shows no stones or signs of acute cholecystitis. She does not have hyperbilirubinemia. The duration and etiology of her slightly elevated liver enzymes is unknown, but at this time I think she can follow-up with that as an outpatient. I do not think any of this is related to the pain she is having in her left low back which I think is sacroiliitis, she was given something for pain there as well as a prescription for something for pain and 5 days of low-dose once daily meloxicam to try to help with the inflammation. I did speak with Dr. Madrigal regarding the hernia, he agrees outpatient follow-up warranted and reasonable. With regards to the elevated liver enzymes, acalculous cholecystitis is in the differential but she does not have any pain or tenderness right now, I did reexamine her abdomen. It may be reasonable to obtain a HIDA scan as an outpatient if she continues to have symptoms and elevated liver enzymes. I do not think they are indicating acute cholecystitis at this time. Lab Data Attestation: I reviewed the patient's lab results. Labs: Laboratory Results - last 24 hr 06/01/24 06/01/24 16:25 17:20 WBC 9.4 RBC 4.79 Hgb 13.6 Hct 42.8 MCV 89.4 MCH 28.4 MCHC 31.8 L RDW Std Deviation 47.2 H RDW Coeff of Juve 14.3 Plt Count 315 MPV 9.3 Immature Gran % (Auto) 0.300 Neut % (Auto) 52.7 Lymph % (Auto) 33.9 [place] % (Auto) 9.8 Eos % (Auto) 2.4 Baso % (Auto) 0.9 Absolute Neuts (auto) 4.9 Absolute Lymphs (auto) 3.17 Nucleated RBC % 0 Sodium 135 L Potassium 4.7 Chloride 104 Carbon Dioxide 27.0 Anion Gap 4 L BUN 34 H Creatinine 0.71 Est GFR (MDRD) Af Amer 101 Est GFR (MDRD) Non-Af 83 BUN/Creatinine Ratio 47.8 H Glucose 103 Calcium 9.4 Total Bilirubin 0.40 AST 344 H ALT 510 H Alkaline Phosphatase 196 H Total Protein 8.2 Albumin 3.4 Globulin 4.8 H Albumin/Globulin Ratio 0.7 L Urine Color Yellow Urine Clarity Clear Urine pH 6.0 Ur Specific [place] 1.015 Urine Protein Negative Urine Glucose (UA) Normal Urine Ketones Negative Urine Occult Blood Negative Urine Nitrite Negative Urine Bilirubin Negative Urine Urobilinogen Normal Ur Leukocyte Esterase 100 H Urine RBC 0 SEEN Urine WBC 0-5 SEEN Ur Squamous Epith Cells 0-5 SEEN Ur Renal Epithelial Cell 0-5 SEEN Urine Bacteria RARE Urine Mucus 0 SEEN Radiography Diagnostic Testing: Clinical Impression(s) from Imaging Studies Abdomen/Pelvis CT 06/01/24 17:35 IMPRESSION: Left lower anterior abdominal wall hernia containing fat and a short segment of distal descending colon, 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 Electronically Signed: Joni Glaser MD at 18:14 EDT , Gallbladder Ultrasound 06/01/24 18:26 IMPRESSION: No gallstones or biliary dilatation. Hepatic and renal cysts. Electronically Signed: Reinier Carroll MD at 19:42 EDT , Management Discussion w/another healthcare provider: Comprehensive Ophthalmologist (Surgery) Discharge Plan Triage Chief Complaint: Lower Extremity Injury ED Provider: Reinier Toney Dx/Rx/DC Orders Clinical Impression: Spigelian hernia, Sacroiliac joint dysfunction of left side, Elevated liver enzymes Instructions: ED Hernia (Adult), ED Sacroiliitis Prescriptions: New hydrocodone-acetaminophen 5-325 mg tablet 1 tab PO Q6H PRN (Reason: pain) 2 Days Qty: 6 0RF meloxicam 7.5 mg tablet 7.5 mg PO DAILY PRN (Reason: pain) Qty: 5 0RF No Action cetirizine [Zyrtec] 10 mg tablet 10 mg PO QHS amlodipine 10 mg tablet 10 mg PO DAILY Qty: 90 1RF metoprolol succinate 25 mg tablet extended release 24 hr 25 mg PO BID Qty: 180 2RF pantoprazole 40 mg tablet,delayed release (DR/EC) 40 mg PO DAILY Qty: 90 1RF pravastatin 40 mg tablet 40 mg PO DAILY Qty: 90 3RF spironolactone 25 mg tablet 25 mg PO DAILY Qty: 90 0RF valsartan 160 mg tablet 160 mg PO .qd Qty: 90 1RF aspirin 81 MG tablet,delayed release (DR/EC) 81 mg PO DAILY nitrofurantoin macrocrystal 50 mg capsule 50 mg PO QHS Qty: 90 0RF Primary Care Provider: Jamie Hall Referrals: Jamie Hall, [Primary Care Provider] - As soon as possible Hamilton Madrigal MD [Med Staff - Active Staff] - (call for follow up) Print Language: French Disposition Disposition: Home, Self Care
[2024-06-01 16:50] LABS: Absolute Lymphocyte Count 3.17 X10^3/uL (0.83-4.51); Absolute Neutrophil Count 4.9 X10^3/uL (2.0-7.7); Basophil# 0.08 X10^3/uL; Basophil% 0.9 % (0-1); Eosinophil# 0.22 X10^3/uL; Eosinophils% 2.4 % (0-5); Hematocrit 42.8 % (37-47); Hemoglobin 13.6 g/dL (12.0-15.0); Lymphocyte # 3.17 X10^3/ul (0.83-4.51); Lymphocyte % 33.9 % (19-41); Mean Corp Hgb Conc 31.8 g/dL (32-36); Mean Corpuscular Hgb 28.4 pg (27.0-32.0); Mean Corpuscular Volume 89.4 fL (81-99); Mean Platelet Vol. 9.3 fl (6.2-12.0); Monocyte# 0.92 X10^3/uL; Monocyte% 9.8 % (0-10); NRBC Flagged by Analyzer 0 % (0-5); Neutrophil # 4.94 X10^3/uL (2.7-7.7); Neutrophil % 52.7 % (47-70); Platelet Count 315 K/mm3 (150-450); RBC Distribution Width CV 14.3 % (11.6-14.6); RBC Distribution Width SD 47.2 fl (35.1-43.9); Red Blood Count 4.79 M/mm3 (4.2-5.4); White Blood Count 9.4 K/mm3 (4.4-11.0)
[2024-06-01 17:19] LABS: ALB/GLOB Ratio 0.7 RATIO (0.9-2.4); AST(SGOT) 344 U/L (15-37); Alanine Aminotransfer ALT/SGPT 510 U/L (13-56); Albumin, Serum 3.4 g/dL (3.2-5.0); Alkaline Phosphatase 196 U/L (45-117); Anion Gap 4 (5-15); BUN 34 mg/dL (7-18); BUN/Creat Ratio 47.8 RATIO (10-20); Calcium,Total 9.4 mg/dL (8.5-10.1); Chloride 104 mmol/L (98-107); Creatinine, Serum 0.71 mg/dL (0.55-1.02); EST Glomerular Filtration Rate 83 mL/min (>60); Est Glom Filt Rate - Afr Amer 101 mL/min (>60); Globulin 4.8 g/dL (2.2-4.2); Glucose 103 mg/dL (74-106); Potassium 4.7 mmol/L (3.5-5.1); Protein, Total 8.2 g/dL (6.4-8.2); Sodium Level 135 mmol/L (136-145)
[2024-06-01 17:30] VITALS: BMI 24.4
--- NOTE | 2024-06-01 17:35 | CT_ITS ---
INDICATION: llq pain EXAMINATION: CT Abdomen And Pelvis W/ Contrast Injection TECHNIQUE: Helically acquired images were obtained of the abdomen and pelvis after IV contrast. A radiation dose optimization technique was used for this scan. IV Contrast dosage and agent: IV 100mL Isovue-300 Oral contrast: None. COMPARISON: None. FINDINGS: Visualized lung bases: Bibasilar atelectasis. Liver: Scattered hepatic cysts. Gallbladder: Unremarkable Spleen: Unremarkable Pancreas: Unremarkable Adrenal Glands: Unremarkable Kidneys: Bilateral simple renal cysts. Vasculature: Moderate aortoiliac atherosclerotic disease. GI Tract: Unremarkable Lymphadenopathy: None Peritoneum: No ascites. Bladder: Unremarkable Reproductive organs: Status post hysterectomy. Bones/Soft tissues: There are diffuse degenerative changes of the spine. There is a left lower anterior abdominal wall hernia containing fat and a short segment of distal descending colon. 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 Electronically Signed: Joni Glaser MD at 18:14 EDT ,
[2024-06-01 17:37] LABS: Mucous, Urine 0 SEEN /hpf (<or=2+)
[2024-06-01 17:40] LABS: Color, Urine Yellow (Yellow); Glucose, Dipstick Normal (Normal); Ketone-Dipstick Negative (Negative); Leukocyte Esterase-Dipstick 100 /ul (Negative); Nitrite-Dipstick Negative (Negative); Occult Blood-Urine Negative /ul (Negative); Protein-Dipstick Negative (Negative); Specific Gravity, Urine 1.015 (1.002-1.030); Urine Bilirubin Dipstick Negative (Negative); Urine Clarity Clear (Clear); Urine Urobilinogen Normal (Normal)
--- NOTE | 2024-06-01 18:26 | US_ITS ---
STUDY: ABDOMINAL ULTRASOUND - RIGHT UPPER QUADRANT REASON FOR VISIT: Female, 83 years old Elevated liver enz, pain TECHNIQUE: Ultrasound evaluation of the right upper quadrant was performed with real-time and static lipscomb-scale imaging. TECHNICAL QUALITY: Adequate. COMPARISON: None. FINDINGS: Liver: The liver measures 11.1 cm. There is normal echogenicity of the liver. The bile ducts are within normal limits. There is hepatic color flow. The direction of portal flow is hepatopetal. There is a 1.5 cm cyst. Gallbladder: Normal distended gallbladder. The gallbladder wall measures 2 mm. There is a negative sonographic Lopez''s sign. There is no pericholecystic fluid. There are no gallstones. Common Bile Duct (C.B.D.): The common bile duct measures mm. Pancreas: Normal size of the head, body and tail of the pancreas. There is normal echogenicity of the pancreas. There is no demonstrated pancreatic mass or cyst. Right Kidney: Normal size of the right kidney. The right kidney measures 10.3 cm. Normal renal cortex. The right cortex measures 1.4 cm. There is 5.0 cm cyst. There is no right hydronephrosis. US/Gallbladder IMPRESSION: No gallstones or biliary dilatation. Hepatic and renal cysts. Electronically Signed: Reinier Carroll MD at 19:42 EDT ,
[2024-06-01 18:32] LABS: Squamous Epithelial Cells - UA 0-5 SEEN /hpf (5-10)
[2024-06-01 18:33] LABS: Red Blood Cells-Urine 0 SEEN /hpf (0-5); Renal Epithelial Cells 0-5 SEEN /hpf (0-5); White Blood Cells 0-5 SEEN /hpf (0-5)
[2024-06-01 18:34] LABS: Bacteria RARE /hpf (None Seen)
[2024-06-01 19:50] VITALS: BP 145/71; PULSE 61; RESP 16; O2SAT 98
[2024-06-01 21:13] VITALS: BP 144/74; PULSE 63; RESP 16; TEMP 36.8; O2SAT 97
--- NOTE | 2024-06-01 21:14 | ED.RN ---
Pt and daughter upset at length of time spent in ED> This RN apologized and attempted to explain doctors were tied up with several critical people. Discussed that family saw [facility] present in department and was aware staff was caring for critical pts. Daughter continues to complain stating It's still not right that we have to wait. Unable to appease daughter, pt offered snacks, beverages. Daughter wanted to leave without discharge papers, however pt agreeable to wait. Pain med not given at discharge, daughter states they are leaving, I have 5 dogs at home.
== END 2024-06-01 21:19 | disposition home or self-care (01) ==
PROVIDERS: Emergency Provider Emergency Medicine; PCP Family Medicine; Referring Provider Emergency Medicine; Visit Provider Emergency Medicine
DX: K43.9 Ventral hernia without obstruction or gangrene (principal); I48.91 Unspecified atrial fibrillation; M46.1 Sacroiliitis, not elsewhere classified; M54.50 Low back pain, unspecified; I10 Essential (primary) hypertension; E78.5 Hyperlipidemia, unspecified; R74.8 Abnormal levels of other serum enzymes; G89.29 Other chronic pain; Z79.82 Long term (current) use of aspirin; Z79.899 Other long term (current) drug therapy
CPT/HCPCS: 74177; 76705; 80053; 81001; 85025; 99283; Q9967; A4216

== ENCOUNTER → 2024-06-01 | Outpatient (CLI) | payer MEDICARE, SELFPAY ==
--- NOTE | 2024-06-01 14:42 | RAD_ITS ---
INDICATION: hip pain EXAMINATION/TECHNIQUE: X-RAY - LEFT XR Hip Unilateral with Pelvis when performed; 2-3 Views COMPARISON: None. FINDINGS: No acute fracture or malalignment. No blastic or lytic lesions. Moderate degenerative changes. The soft tissues are unremarkable. RAD/HIP, UNI W/ Pelvis 2-3 Views IMPRESSION: No acute radiographic abnormalities. Electronically Signed: Joni Glaser MD at 16:07 EDT ,
== END | disposition home or self-care (01) ==
PROVIDERS: PCP Family Medicine; Referring Provider Nurse Practitioner Family; Visit Provider Nurse Practitioner Family
DX: M25.552 Pain in left hip (principal); M19.90 Unspecified osteoarthritis, unspecified site
CPT/HCPCS: 73502

== ENCOUNTER → 2024-06-15 | Outpatient (CLI) | payer MEDICARE, SELFPAY ==
[2024-06-15 16:54] LABS: AST(SGOT) 269 U/L (15-37); Alanine Aminotransfer ALT/SGPT 379 U/L (13-56); Albumin, Serum 3.1 g/dL (3.2-5.0); Alkaline Phosphatase 170 U/L (45-117); Globulin 4.8 g/dL (2.2-4.2); Protein, Total 7.9 g/dL (6.4-8.2)
[2024-06-17 05:08] LABS: HEPATITIS B SURFACE AG Negative (Negative); Hep C Antibodies Non Reactive (Non Reactive); Hepatitis A IgM Antibody Negative (Negative); Hepatitis B Core AB IgM Negative (Negative)
== END | disposition home or self-care (01) ==
LOC: BIMLAB 15:38
PROVIDERS: PCP Family Medicine; Referring Provider Nurse Practitioner; Visit Provider Nurse Practitioner
DX: R79.89 Other specified abnormal findings of blood chemistry (principal); R74.01 Elevation of levels of liver transaminase levels
CPT/HCPCS: 36415; 80074; 80076; 86705; 86709; 87340

== ENCOUNTER → 2024-07-27 | Outpatient (CLI) | payer MEDICARE, SELFPAY ==
--- NOTE | 2024-07-27 15:23 | RAD_ITS ---
HISTORY: cough. TECHNIQUE: XR Chest 2 Views. COMPARISON: 06/07/2023. FINDINGS: CARDIOMEDIASTINAL BORDERS: Cardiac silhouette within normal limits in size. Mediastinal contour also unchanged with calcification of the aortic knob is calcified left mediastinal lymph node. LUNGS: Calcified granuloma in the left upper lobe again seen. Chronic coarse interstitial markings in the periphery and bases of the lungs. PLEURA: No pleural effusion or pneumothorax seen. OSSEOUS STRUCTURES: Degenerative change. RAD/Chest PA and Lateral IMPRESSION: No acute cardiopulmonary process identified. Electronically Signed: Bonnie De La Cruz MD at 15:53 EST ,
== END | disposition home or self-care (01) ==
LOC: MTRAD 15:20
PROVIDERS: PCP Family Medicine; Referring Provider Physician Assistant; Visit Provider Physician Assistant
DX: R05.9 Cough, unspecified (principal)
CPT/HCPCS: 71046

== ENCOUNTER 2024-08-28 16:58 | Observation (INO) | payer MEDICARE, SELFPAY ==
--- NOTE | 2024-08-22 13:22 | EKG12_ITS ---
Test Reason : PRE OP Blood Pressure : */* mmHG Vent. Rate : 53 BPM Atrial Rate : 53 BPM P-R Int : 206 ms QRS Dur : 92 ms QT Int : 422 ms P-R-T Axes : 67 61 64 degrees QTcB Int : 395 ms Sinus bradycardia with sinus arrhythmia Otherwise normal ECG Confirmed by Hamilton Leyva ([id number]), market editor AFSANEH HERNANDEZ ([id number]) on 08/23/2024 7:18:03 AM Referred By: Hamilton Madrigal Confirmed By: Hamilton Leyva
[2024-08-22 14:03] LABS: Hematocrit 37.3 % (37-47); Hemoglobin 12.1 g/dL (12.0-15.0); Mean Corp Hgb Conc 32.4 g/dL (32-36); Mean Corpuscular Hgb 29.7 pg (27.0-32.0); Mean Corpuscular Volume 91.4 fL (81-99); Mean Platelet Vol. 8.6 fl (6.2-12.0); Platelet Count 302 K/mm3 (150-450); RBC Distribution Width SD 46.9 fl (35.1-43.9); Red Blood Count 4.08 M/mm3 (4.2-5.4); White Blood Count 6.9 K/mm3 (4.4-11.0)
[2024-08-22 14:38] LABS: Anion Gap 5 (5-15); BUN 25 mg/dL (7-18); BUN/Creat Ratio 31.2 RATIO (10-20); Calcium,Total 8.8 mg/dL (8.5-10.1); Chloride 101 mmol/L (98-107); EST Glomerular Filtration Rate 72 mL/min (>60); Est Glom Filt Rate - Afr Amer 87 mL/min (>60); Glucose 107 mg/dL (74-106); Potassium 4.6 mmol/L (3.5-5.1); Sodium Level 131 mmol/L (136-145)
--- NOTE | 2024-08-24 13:35 | PAT.ANE_ITS ---
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 When Was Last Pacemaker Check QUESTION #4 FULL TEXT: You/Your Family Experience fever (hyperthermia) with Anesthesia Last Oral Intake Last Oral intake: Last Oral Intake NPO since Meds taken in AM with sips of water? 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 - assistant corporation counsel: PONV - assistant corporation counsel Female Yes 08/17/24 13:14 HX of Motion Sickness No 08/17/24 13:14 HX of N/V After Surgery No 08/17/24 13:14 Non-Smoker Yes 08/17/24 13:14 Duration of Surgery greater Yes 08/17/24 13:14 than 60 minutes Number of Risk Factors 3 08/17/24 13:14 PONV Score Moderate Risk 08/17/24 13:14 Height & Weight Height & Weight: Anesthesia: Height & Weight Height 5 ft 3 in 07/04/24 14:58 Respiratory Assessment Respiratory Assessment - assistant corporation counsel: Respiratory Tract Infection Hx - assistant corporation counsel Hx Respiratory Tract Infection Yes: SINUS INFECTION/TREATED 08/17/24 13:14 /RESOLVED STOP Sleep Apnea STOP Sleep Apnea - assistant corporation counsel: STOP Sleep Apnea - assistant corporation counsel Hx Hypertension Yes: CONTROLLED WITH MEDS 08/17/24 13:14 Hx Sleep Apnea No 08/17/24 13:14 CPAP BIPAP Do you snore loudly (louder No 08/17/24 13:14 than talking or can be heard Do you often feel tired/ No 08/17/24 13:14 fatigued/ sleepy during daytime? Has anyone observed you stop No 08/17/24 13:14 breathing during sleep? STOP Results Negative 08/17/24 13:14 QUESTION #5 FULL TEXT : Do you snore loudly (louder than talking or can be heard through closed doors)? 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 Specify any problems Hx of Preganancy in last 3 No 08/17/24 13:14 Months Nurse Filling Out Transfusion DSCHRIBER 08/17/24 13:14 & Questions: Date: 08/17/24 08/17/24 13:14 Time: 13:17 08/17/24 13:14 Patient unable to answer at this time (ie. confused, unrespo /Reproduction History /Reproductive History - assistant corporation counsel: /Reproductive Hx- assistant corporation counsel Hx Now No 08/17/24 13:14 Gestational Age (in weeks): EDC: Hx Hx Para Hx Section SAB No 08/17/24 13:14 PFSH Medical History (Updated 08/17/24 @ 13:34 by Coral Smith) Loss of hearing Wears glasses Wears dentures Anxiety Ambulates with cane Bladder disease Injury of head and neck Loss of consciousness Diarrhea Difficulty swallowing History of diverticulitis Gastric reflux Shortness of breath on exertion Leg cramps History of edema History of normal Holter exam History of echocardiogram History of stress test Cardiology follow-up encounter Non-smoker Chronic pain Atrial fibrillation Shortness of breath Cardiac murmur History of hemorrhoids Frequent headaches Chronic back pain History of stomach ulcers Arthritis Hyperlipemia Hypertension History of pneumonia Home Medications ?Medication ?Instructions ?Recorded ?Last Taken ?Type aspirin 81 mg tablet,delayed 81 mg PO DAILY HEART 11/24/16 Unknown History release cetirizine 10 mg tablet (Zyrtec) 10 mg PO QHS allergy symptoms 06/07/23 Unknown History pantoprazole 40 mg tablet,delayed 40 mg PO DAILY #90 tabs 04/11/24 Unknown Rx release metoprolol succinate 25 mg 25 mg PO BID #180 tabs 04/26/24 Unknown Rx tablet,extended release 24 hr meloxicam 7.5 mg tablet 7.5 mg PO DAILY PRN pain #5 tabs 06/01/24 Unknown Rx amlodipine 10 mg tablet 10 mg PO DAILY BP #90 tabs 06/30/24 Unknown Rx spironolactone 25 mg tablet 25 mg PO DAILY #90 tabs 07/07/24 Unknown Rx pravastatin 40 mg tablet 40 mg PO QHS CHOLESTROL 08/17/24 Unknown History valsartan 160 mg tablet 160 mg PO DAILY 08/17/24 Unknown History chlorhexidine gluconate 4 % 1 applic topical DAILY 1 week #236 08/24/24 Unknown Rx topical liquid (Hibiclens) mL mupirocin 2 % topical ointment 1 applic topical BID 1 week #15 08/24/24 Unknown Rx grams Allergy/AdvReac Type Severity Reaction Status Date / Time nitroglycerin Allergy Mild NEEDS Verified 08/17/24 13:08 FOLLOW-UP amiodarone Allergy Rash Verified 08/17/24 13:08 chlorpheniramine (From AdvReac Other Verified 08/17/24 13:08 Actifed Cold-Allergy) phenylephrine (From Actifed AdvReac Other Verified 08/17/24 13:08 Cold-Allergy) pseudoephedrine (From AdvReac Other Verified 08/17/24 13:08 Actifed Cold-Allergy) triprolidine (From Actifed AdvReac Other Verified 08/17/24 13:08 Cold-Allergy) Family History Mother Diabetes Hypertension CVA (cerebral vascular accident) Father Myocardial infarction, Onset Age: 80 Brother Cancer Surgical History (Updated 08/17/24 @ 13:34 by Coral Smith) History of cardiac catheterization Hx of colonoscopy History of esophagogastroduodenoscopy (EGD) History of tonsillectomy History of appendectomy History of hysterectomy History of back surgery History of foot surgery Social History Smoking Status: Never smoker alcohol intake: never substance use type: does not use what type of physical activity do you participate in: walking frequency: daily Audit: Pertinent Findings Pertinent Findings EKG Perinent findings: 08/22/2024 sinus bradycardia 53 bpm with sinus arrhythmia Echo (EF%) pertinent findings: 06/08/2023 moderate LVH EF 70% Pulmonary function results/spirometer pertinent findings: 07/27/2024 chest x-ray PA and lateral no acute pulmonary process noted Recommendation Anesthesia Recommendation Anesthesia recommendation: OPTIMIZED for anesthesia
[2024-08-28] VITALS (13 sets, daily range): BP systolic 111–175; BP diastolic 41–109; PULSE 53–84; RESP 16–24; TEMP 36.1–37.1; O2SAT 92–99; BMI 26.2
[2024-08-28] MEDS: 0.9% Normal Saline (1000mL) 1,000 ML 15 ML IV (09:54)
--- NOTE | 2024-08-28 09:55 | PCM.PRE.AN2 ---
ASA Classification* ASA Classification ASA Classification: 3 Assessment & Plan Anesthesia* Anesthesia Assessment Anesthesia Assessment: Discussed sedation and/or anesthesia options, risks, benefits, and alternatives with patient/parents/legal guardian/POA. Questions invited. The patient/parents/legal guardian/POA seems to understand and agrees to proceed with anesthesia plan. Reviewed the physical assessment, medical history, allergy history and patient home medications list prior to surgery/procedure/anesthetic and documented any changes. Performed airway and anesthesia risk assessments. Anesthesia Type Anesthesia Type: General Anesthesia Focused Assessment* Airway Assessment Mouth opens: >3 cm Mallampati Score: II Focused Labs Anesthesia Preop lab: CBC WBC 6.9 K/mm3 (4.4-11.0) 08/22/24 13:38 RBC 4.08 M/mm3 (4.2-5.4) L 08/22/24 13:38 Hgb 12.1 g/dL (12.0-15.0) 08/22/24 13:38 Hct 37.3 % (37-47) 08/22/24 13:38 Plt Count 302 K/mm3 (150-450) 08/22/24 13:38 CHEMISTRY Potassium 4.6 mmol/L (3.5-5.1) 08/22/24 13:38 Sodium 131 mmol/L (136-145) L 08/22/24 13:38 Magnesium 2.2 mg/dL (1.6-2.6) 06/07/23 20:03 Phosphorus 2.8 mg/dL (2.5-4.9) 06/07/23 20:03 BUN 25 mg/dL (7-18) H 08/22/24 13:38 Creatinine 0.80 mg/dL (0.55-1.02) 08/22/24 13:38 Glucose 107 mg/dL (74-106) H 08/22/24 13:38 TSH 5.56 uIU/mL (0.358-3.74) H 06/08/23 06:48 COAG PT 21.0 SECONDS (11.7-14.9) H 08/30/23 10:50 Pre-Assessment Diagnosis/Proposed Procedure Planned Operative Procedure(s): ROBOTIC VENTRAL HERNIA REPAIR WITH MESH Anesthesia History 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 When Was Last Pacemaker Check QUESTION #4 FULL TEXT: You/Your Family Experience fever (hyperthermia) with Anesthesia Last Oral Intake Last Oral intake: Last Oral Intake NPO since Meds taken in AM with sips of water? 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 Has anyone observed you stop No 08/17/24 13:14 breathing during sleep? STOP Results Negative 08/17/24 13:14 QUESTION #5 FULL TEXT : Do you snore loudly (louder than talking or can be heard through closed doors)? 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 Specify any problems Hx of Preganancy in last 3 No 08/17/24 13:14 Months Nurse Filling Out Transfusion DSCHRIBER 08/17/24 13:14 & Questions: Date: 08/17/24 08/17/24 13:14 Time: 13:17 08/17/24 13:14 Patient unable to answer at this time (ie. 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: /Reproductive Hx- biodiesel process control technician Hx Now No 08/17/24 13:14 Gestational Age (in weeks): EDC: Hx Hx Para Hx Section SAB No 08/17/24 13:14 Active Medications Active Medications: Current Medications Generic Name Dose Route Start Last Admin Trade Name Freq PRN Reason Stop Dose Admin Cefazolin Sodium 2 gm/ N/A 20 mls @ 400 mls/hr 08/28/24 11:00 IV 08/28/24 11:02 PREOP ONE Sodium Chloride 1,000 mls @ 15 mls/hr 08/28/24 09:30 08/28/24 09:54 IV 09/02/24 22:49 15 mls/hr .Q48H SHAYAN Administration Protocol PFSH Medical History Loss of hearing Wears glasses Wears dentures Anxiety Ambulates with cane Bladder disease Injury of head and neck Loss of consciousness Diarrhea Difficulty swallowing History of diverticulitis Gastric reflux Shortness of breath on exertion Leg cramps History of edema History of normal Holter exam History of echocardiogram History of stress test Cardiology follow-up encounter Non-smoker Chronic pain Atrial fibrillation Shortness of breath Cardiac murmur History of hemorrhoids Frequent headaches Chronic back pain History of stomach ulcers Arthritis Hyperlipemia Hypertension History of pneumonia Home Medications ?Medication ?Instructions ?Recorded ?Last Taken ?Type aspirin 81 mg tablet,delayed 81 mg PO DAILY HEART 11/24/16 08/23/24 History release cetirizine 10 mg tablet (Zyrtec) 10 mg PO QHS allergy symptoms 06/07/23 08/27/24 History pantoprazole 40 mg tablet,delayed 40 mg PO DAILY #90 tabs 04/11/24 08/28/24 Rx release metoprolol succinate 25 mg 25 mg PO BID #180 tabs 04/26/24 08/28/24 Rx tablet,extended release 24 hr amlodipine 10 mg tablet 10 mg PO DAILY BP #90 tabs 06/30/24 08/28/24 Rx spironolactone 25 mg tablet 25 mg PO DAILY #90 tabs 07/07/24 08/27/24 Rx pravastatin 40 mg tablet 40 mg PO QHS CHOLESTROL 08/17/24 08/27/24 History valsartan 160 mg tablet 160 mg PO DAILY 08/17/24 08/28/24 History chlorhexidine gluconate 4 % 1 applic topical DAILY 1 week #236 08/24/24 Unknown Rx topical liquid (Hibiclens) mL mupirocin 2 % topical ointment 1 applic topical BID 1 week #15 08/24/24 08/28/24 Rx grams Allergy/AdvReac Type Severity Reaction Status Date / Time nitroglycerin Allergy Mild NEEDS Verified 08/17/24 13:08 FOLLOW-UP amiodarone Allergy Rash Verified 08/17/24 13:08 chlorpheniramine (From AdvReac Other Verified 08/17/24 13:08 Actifed Cold-Allergy) phenylephrine (From Actifed AdvReac Other Verified 08/17/24 13:08 Cold-Allergy) pseudoephedrine (From AdvReac Other Verified 08/17/24 13:08 Actifed Cold-Allergy) triprolidine (From Actifed AdvReac Other Verified 08/17/24 13:08 Cold-Allergy) Family History Mother Diabetes Hypertension CVA (cerebral vascular accident) Father Myocardial infarction, Onset Age: 80 Brother Cancer Surgical History History of cardiac catheterization Hx of colonoscopy History of esophagogastroduodenoscopy (EGD) History of tonsillectomy History of appendectomy History of hysterectomy History of back surgery History of foot surgery Social History Smoking Status: Never smoker alcohol intake: never substance use type: does not use what type of physical activity do you participate in: walking frequency: daily Review of Systems (Anesthesia) ROS Narrative System reviewed and no additional complaints, except as documented.
--- NOTE | 2024-08-28 10:20 | PCM.HP.BLA ---
History and Physical Date of Admission: 08/28/24 Date of Service: 07/04/24 MR#: [id number] Acct: [id number] Name: MODESTA VAUGHAN Rep #: [id number] : 1940 Provider: Dr. 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 Is patient in pain?: No Allergies nitroglycerin Allergy (Mild, Verified 07/04/24 14:59) NEEDS FOLLOW-UPamiodarone Allergy (Verified 07/04/24 14:59) Rashchlorpheniramine (From Actifed Cold-Allergy) Adverse Reaction (Verified 07/04/24 14:59) Otherphenylephrine (From Actifed Cold-Allergy) Adverse Reaction (Verified 07/04/24 14:59) Otherpseudoephedrine (From Actifed Cold-Allergy) Adverse Reaction (Verified 07/04/24 14:59) Othertriprolidine (From Actifed Cold-Allergy) Adverse Reaction (Verified 07/04/24 14:59) Other Medications ?Medication ?Instructions ?Recorded ?Confirmed ?Type aspirin 81 mg tablet,delayed 81 mg PO DAILY HEART 11/24/16 07/04/24 History release cetirizine 10 mg tablet (Zyrtec) 10 mg PO QHS allergy symptoms 06/07/23 07/04/24 History pantoprazole 40 mg tablet,delayed 40 mg PO DAILY #90 tabs 04/11/24 07/04/24 Rx release pravastatin 40 mg tablet 40 mg PO DAILY CHOLESTROL #90 tabs 04/11/24 07/04/24 Rx spironolactone 25 mg tablet 25 mg PO DAILY #90 tabs 04/11/24 07/04/24 Rx valsartan 160 mg tablet 160 mg PO .qd #90 tabs 04/11/24 07/04/24 Rx metoprolol succinate 25 mg 25 mg PO BID #180 tabs 04/26/24 07/04/24 Rx tablet,extended release 24 hr meloxicam 7.5 mg tablet 7.5 mg PO DAILY PRN pain #5 tabs 06/01/24 07/04/24 Rx amlodipine 10 mg tablet 10 mg PO DAILY BP #90 tabs 06/30/24 07/04/24 Rx nitrofurantoin macrocrystal 50 mg 50 mg PO QHS #90 caps 07/04/24 07/04/24 Rx capsule Have you fallen in the past year?: No PFSH Medical History Non-smoker Chest pain Chronic pain Atrial fibrillation Shortness of breath NECK/BACK PAIN Cardiac murmur History of hemorrhoids Frequent UTI Frequent headaches Chronic back pain History of stomach ulcers Arthritis Hyperlipemia Hypertension History of pneumonia Surgical History History of tonsillectomy History of appendectomy History of hysterectomy History of back surgery History of foot surgery Family History Mother Diabetes Hypertension CVA (cerebral vascular accident)Father Myocardial infarction, Onset Age: 80Brother Cancer Social History Smoking Status: Never smoker alcohol intake: never substance use type: does not use what type of physical activity do you participate in: walking frequency: daily HPI HPI HPI: Patient is a 83-year-old female who presents for newly diagnosed hernia. She presents today with her granddaughter. This finding was first noticed by CT imaging during recent ER visit on 06/01/2024. She had presented earlier to an urgent care facility due to complaints of hip pain and upon presenting to the emergency department was diagnosed with elevated liver function testing and a new left-sided spigelian hernia. Patient is not able to recall how this occurred. Patient notes that she is completed a gallbladder ultrasound following the findings of elevated liver function testing but this was completed within normal limits. Outside of her ER visit she shares that she has experienced a change in bowel habits for the past few months where she has experienced diarrhea as well as coffee grounds consistency bowel character. However, today she reports that her bowels are back to normal color and consistency. She notes that once in a while she will experience pressure in her lower abdomen diffusely when her bowels do not go down. Patient confirms that she has spent the last year outside of the hospital but recalls an extended illness beginning last May with evidence of pneumonia that was first diagnosed at urgent care in early May. She was administered and admitted to the hospital for a short while but then discharged on 05/26/2023. She was subsequently readmitted and underwent echocardiogram which showed no evidence of a pericardial effusion and new atrial fibrillation. There is concern for developing tamponade so patient was urgently transferred to a higher level of care at [facility]. During her time there she complained of progressive abdominal pain and a tightening of her abdomen which was followed up ultimately with CT imaging that showed a left rectus sheath hematoma. Patient required an extensive arterial embolization procedure by interventional radiology on 06/15/2023 that involved embolization of the left inferior epigastric artery. Patient shares that she was informed her hematoma may have been related to a fall she sustained prior to her initial hospitalization at [facility]. Patient is quite active and lives with her daughter?participating in most of her ADLs as well as working in the yard. She notes that she can walk as far as she likes as long as she uses a cane because of a history of back pain and some instability. She specifically denies any shortness of breath. Patient's past surgical history consists of an open appendectomy as well as hysterectomy (approach is unknown). Patient has no current use of anticoagulation. ROS General General: Yes fatigue; No weight change, appetite, colon cancer, breast cancer or weakness HEENT HEENT: Yes difficulty swallowing; No eye injury, eye surgery, swollen glands or hoarseness Endo Endocrine: No thyroid disease, diabetes mellitus, thyroid cancer, Hair loss, heat intolerance or cold intolerance Skin Skin: No rash or changing moles Breast Breast: No left breast lump, right breast lump, nipple discharge, breast pain, abnormal mammogram, abnormal US or breast enlargement Musc Musculoskeletal: Yes back problems and arthritis; No rheumatoid arthritis, gout or joint pain Cardio Cardiovascular: Yes murmur, atrial fibrillation and high blood pressure; No pacemaker, heart disease, heart attack, heart stent, palpitations, shortness of breat with exertion or chest pain Psych Psychiatric: No depression, anxiety or hearing voices Resp Respiratory: Yes shortness of breath, No sleep apnea, Yes cough, No COPD, No asthma, No emphysema and No wheezing Gastro Gastrointestinal: Yes abdominal pain, No nausea or vomiting, Yes diarrhea, Yes constipation, No blood in stool, No acid reflux, No hemorrhoids, No ulcers, No gallbladder problem and Yes black,tarry stools Kiet Hematologic: Yes blood thinners, No blood disorders, No bleeding, No anemia and No blood clots Neuro Neurologic: No system reviewed and no additional complaints, except as documented, No as per HPI, No abnormal gait, No abnormal hearing, No abnormal movements, No abnormal speech, No behavioral changes, No burning sensations, No confusion, No convulsions, No disequilibrium, No dizziness, No localized weakness, No frequent falls, No headache(s), No lack of coordination, No loss of vision, No memory loss, No numbness, No other visual disturbances, No radicular pain, No restless legs, No sensory deficit, No syncope, No tingling, No tremor(s), No weakness and No other Exam Const General: cooperative, anxious and frail appearing (The patient is able to a send the step to the exam table largely unaided) Orientation: alert, awake and oriented x3 Resp Effort & Inspection: normal respiratory effort GI Other: Significant abdominal striae present, markedly attenuated and stretched right lower quadrant McBurney incision. Patient nondistended, soft, mildly tender to palpation in the left lower quadrant. With application of ultrasound I am able to identify a small break of the fascia approximately 16 cm inferior lateral from the umbilicus and approximately 4 cm superior to the pubis. Assessment and Plan Assessment and Plan (1) Spigelian hernia: Status: Inactive Comment: Patient 83-year-old female who presents for newly?diagnosed left spigelian hernia. This finding appears to been made incidentally during workup for patient's elevated liver function testing at recent ER visit. Patient does describe some lower abdominal pain and intermittent constipation. Further, CT imaging showed evidence of colon within the hernia sac at the time of her ER visit. On exam patient has some mild tenderness over the left lower quadrant and I am able to visualize/palpate the fascial defect. I had an extensive conversation with patient and her granddaughter regarding her options and recommended she consider surgical repair to minimize her risk for small bowel obstruction or strangulation within the hernia. I shared there was no way for me to verify that this was a new finding, nor guarantee she would have no future problems. I discussed open versus transabdominal/laparoscopic repair options. Given patient's advanced age and significant cardiovascular history I recommended a more conservative approach via an open repair with onlay mesh application. I did discuss possible need for laparoscopy to localize the hernia if it became an issue intraoperatively. I do not believe her history of endovascular angioembolization will complicate this repair?and may in fact decrease the risk since the inferior epigastric artery on the left is already clotted. Patient seems somewhat inclined to pursue an operative approach, but still undecided. Therefore, I have suggested she take more time with this decision and plan to approach this procedure completely electively. I did give red flag warning signs that should prompt her return to the nearest emergency department. Lastly, I suggested we reach out to cardiology to obtain preoperative clearance. Patient and her granddaughter had the opportunity to ask questions and these were answered to their satisfaction Plan: ? Obtain cardiac clearance for possible open ventral hernia repair with mesh placement. Would tentatively plan for overnight observation postoperatively ? Await patient final answer regarding surgical intervention for left spigelian hernia I have examined the patient and the H&P has been reviewed. There are no clinical changes since date of exam apart from patient reporting some new diarrhea over the last month. She and her family wish to know whether it is expected that this diarrhea will resolve with her hernia repair. I informed them that I would have a difficult time prognosticating for them but would expect that it would not as my chief concern here is for her risk of bowel obstruction since her last CT imaging showed small bowel within her hernia. They expressed understanding and I shared that we could consider a colonoscopy but I would recommend we wait until Ms. Vaughan is fully recovered from the present operation. Brief overview was given of the operation and she denies any further questions. Consents were signed. Will plan to proceed to the operating room for robot-assisted left spigelian hernia repair with mesh.
[2024-08-28] MEDS: Cefazolin 2 GM in Syringe IV (10:46)
[2024-08-28] MEDS: Bupivacaine 0.25% 30 ML Vial (10:58)
--- NOTE | 2024-08-28 13:26 | OP.PCM_ITS ---
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 Surgery/Procedure Performed: Robot-assisted laparoscopic repair of left spigelian hernia with mesh epidemiology intern: Yes Mold Engraver: Binh Arias Tasks completed by contact center assistant: Opening & closing and Trocar Type of Anesthesia: General/Supplemental RN Documented Start/Stop Times: Operation Date: 08/28/24 11:00 Case Time Into Pre-Op 08/28/24 09:29 Out of Pre-Op 08/28/24 10:28 Anesthesia Start 08/28/24 10:33 Into Room 08/28/24 10:33 Procedure Start 08/28/24 10:58 Procedure End 08/28/24 13:34 Anesthesia End 08/28/24 13:44 Out of Room 08/28/24 13:44 Into Recovery 08/28/24 13:46 Out of Recovery 08/28/24 15:05 Into Phase II Recovery 08/28/24 15:06 Out of Phase II 08/28/24 19:02 Procedure Start Time: 10:58 Procedure Stop Time: 13:34 Select all DRAINS/GRAFTS/IMPLANTS that apply: Implanted device (ProGrip mesh) Implanted device details: Lot [id number], reference LPG [id number] Estimated Blood Loss: 15 Specimen collected: No Description of surgery: After appropriate identification in the preoperative holding area the patient was brought to the operating room where she was positioned supine on the operating table. Preoperative antibiotics were completed and the patient was administered a general anesthetic. Patient's abdomen was then prepped and draped in usual sterile fashion. Formal timeout followed to confirm patient and procedure. Procedure was begun with an optical entry facilitated by Veress insufflation at Raza's point. Unfortunately I was unable to achieve both a water drop test and low insufflation pressures with placement of the Veress needle so this approach was abandoned in favor of a open Dupree approach via the left upper quadrant. Once pneumoperitoneum reached a set point pressure of 15 mmHg the a trocar was placed and the peritoneal cavity was inspected. We immediately identified a adhesion between the omentum and the anterior abdominal wall on the left as well as some mild to moderate insufflation of the mesocolon (likely from a Veress needle attempt x 1). Laparoscopic visualization otherwise confirmed no inadvertent injury to the viscera below and 2 additional ports were placed in the right upper quadrant and paramedian positions, respectively, after instillation of local anesthetic. Patient was positioned in Trendelenburg and I could visualize a moderately large left spigelian hernia containing small bowel. Gentle traction was placed externally but I was unable to fully reduce the hernia. The robot was docked in standard fashion. Robotically, a peritoneal flap was created on the left extending from just above the arcuate line lateral to the linea semilunaris and medially to the area of the previously embolized left inferior epigastric vessels. Dissection was carried inferiorly in a preperitoneal plane cauterizing small vessels as I proceeded to maintain hemostasis. I carefully worked to remain the visceral side of the peritoneal cavity to protect the underlying nerves of the abdominal wall. The hernia sac w as identified and from the defect with steady downward traction and with selective use of monopolar energy to divide adhesions/scar tissue. Beyond this, I was careful to continue my dissection onto the anterior abdominal wall but not proceed more inferiorly that need be as I was cognizant of my proximity to the iliac vessels. The peritoneal flap was inspected to ensure that there was no tethering to the hernia defect. Once satisfied, a #1 Stratafix suture was used to run the hernia defect closed and then doubled back upon itself to lock the suture. With the defect closed the preperitoneal space was measured and a 8 cm x 8 cm ProGrip mesh was custom cut for this opening. It was positioned over the defect within this pocket and pressed into place. Superiorly it appeared as the mesh was pulling away from the anterior abdominal wall so I chose to tack the mesh with a single 3-0 Vicryl suture in an interrupted fashion. The peritoneal flap was then closed with a running 3-0 V- Loc suture. During this closure I opted to hang the large loculated hernia sac along the closure line and work to obliterate any potential openings that could risk an internal hernia. This included lysing an adhesion between the epiploic fat of the sigmoid colon and the peritoneum adjacent to the hernia sac. With the peritoneal defects closed, sutures were systematically removed from the pe ritoneum and the pneumoperitoneum was evacuated before removing the trocars. The left upper quadrant port site was closed in interrupted fashion at the muscle using #1 PDS x 3 [id number] sutures. Port sites were closed at the skin with running 4-0 Monocryl in a subcuticular fashion. Steri-Strips and OpSite's were used as dressings. Patient was then awoken from anesthetic and transferred to PACU for ongoing recovery. Surgical Findings: ? Adhesion in the left upper quadrant complicating Veress entry and mild to moderate insufflation of the nasal colon but no apparent bowel injury ? Small bowel containing left spigelian hernia ? Mild to moderate subcutaneous emphysema of the abdominal wall related to peritoneal rent from robotic trocar placement and left upper quadrant Complications Complications: Yes Complication Details: Development of abdominal wall subcutaneous emphysema Admit VTE Documentation VTE Mechan Device Prophylaxis: SCD's
--- NOTE | 2024-08-28 13:43 | DCINST_ITS ---
Discharge Instructions Diet Discharge Diet: No restrictions Activity Discharge Activity: May Not Drive (While taking narcotic pain medication) and May Shower May shower in (days): 2 Ice area for (Minutes): 20 Lifting Restrictions: No lifting greater than 10 pounds for the next 5 weeks Dressing / Incision Call your doctor if your incision/area has: Continuous Slow Oozing, Increased Pain/ Swelling, Increased Redness, Foul Smelling Discharge and Swelling at the incision site Call your doctor if you observe: Fever of 101 or Higher, Inability to urinate and Inability to have a bowel movement Change Dressing in: 2 days (Please leave Steri-Strips intact until they fall off spontaneously or are taken off at your follow-up visit) Remove Dressing in: 2 days Cleanse incision/area with: Soap & Water and Keep Dressing Clean & Dry Follow Up Care Please Follow Up With: Hamilton Madrigal MD When: 1 week postop Test Results: Test results from this visit will be discussed in further detail at your follow- up appointment, if applicable. Discharge Plan Admission Admit Date/Time: 08/28/24 16:58 Primary Reason for Your Visit: Left spigelian hernia repair Attending Provider: Hamilton Madrigal Primary Care Provider: Jamie Hall Instructions Additional Instructions / Restrictions: Hernia Diet ? Start light with soups and soft bland foods. You may advance diet as tolerated. Activity ? You may drive in 7 days but not while taking narcotic pain medication. ? I encourage walking. You may go up steps, one at a time. ? Do not swim or use hot tubs for 2 weeks. ? For comfort, you may use warm compresses or ice as needed for 15-20 minutes at a time. Lifting ? You may lift up to 10 pounds for 5 weeks. Dressings/Incision ? You may shower OVER your plastic dressings ? Do NOT tub bathe for 1 week ? Leave plastic dressings on for 2 days. ? When plastic dressings are removed, you will find steri strips. It is okay to continue showering with them in place, pat them dry. ? You may remove steri-strips after 1 week. We recommend getting them soaking wet for easier removal. Medications ? Anesthesia used during surgery and pain medications may cause constipation. I recommend initiating on the day of surgery a fiber supplement like, Metamucil, Citrucel, FiberCon, Benefiber, or a generic form of these medications. 1 heaping tablespoon in water daily. You may continue to utilize any bowel regimen or oral laxatives that you routinely take. ? As long as you are not intolerant to Tylenol, acetaminophen, ibuprofen, Motrin, Advil, Aleve, or similar medications, I would recommend transitioning to these [id number] medicines as soon as possible instead of continued use of narcotic pain medication. Follow up ? You should call [facility] soon after surgery, at [phone] option [phone] to make a follow up appointment for 7-10 days after your surgery. Discharge Orders/Prescriptions Prescriptions: New oxycodone 5 mg tablet 5 mg PO Q6H PRN (Reason: pain) 3 Days Qty: 10 0RF Continued cetirizine [Zyrtec] 10 mg tablet 10 mg PO QHS metoprolol succinate 25 mg tablet extended release 24 hr 25 mg PO BID Qty: 180 2RF pantoprazole 40 mg tablet,delayed release (DR/EC) 40 mg PO DAILY Qty: 90 1RF aspirin 81 MG tablet,delayed release (DR/EC) 81 mg PO DAILY pravastatin 40 mg tablet 40 mg PO QHS valsartan 160 mg tablet 160 mg PO DAILY amlodipine 10 mg tablet 10 mg PO DAILY Qty: 90 1RF spironolactone 25 mg tablet 25 mg PO DAILY Qty: 90 0RF mupirocin 2 % ointment 1 applic topical BID 7 Days Qty: 15 0RF Rx Instructions: apply to bilateral nares with a q-tip twice daily. chlorhexidine gluconate [Hibiclens] 4 % liquid 1 applic topical DAILY 7 Days Qty: 236 0RF Rx Instructions: shower with hibiclens once daily Referrals / Follow Up: Jamie Hall, DO [Primary Care Provider] - Disposition Disposition (needs filled in before D/C Order can be placed): Home, Self Care
--- NOTE | 2024-08-28 14:05 | SUR.PHASEI ---
pt oral suctioned for white phlegm
--- NOTE | 2024-08-28 14:45 | PCM.POST.ANE ---
Anesthesia: Postop Eval I Current Vital Signs Temperature: 97 F Pulse Rate: 55 Blood Pressure: 114/96 Respiratory Rate: 16 Pulse Ox: 97 Oxygen Delivery Method: Nasal Cannula Oxygen Flow Rate (L/min): 3 Assessment Airway patent: Yes Spontaneous unlabored respirations: Yes nausea: No Vomiting: No Anesthesia Complication: No Fluid Hydration Crystalloid volume administer (ml): 400 Total IV fluid infused: 400 Progress Note Anesthesia document: Postop Eval 1 completed: Yes
--- NOTE | 2024-08-28 14:47 | PCM.POSTANE2 ---
Anesthesia Postop Eval I Sum Postop Eval Completion status Anesthesia document: Postop Eval 1 completed: Yes Anesthesia Postop Eval I Summary Anesthesia Postop Eval I Summary: Anesthesia Postop Eval I: Assessment Summary Airway patent Yes 08/28/24 14:47 Spontaneous unlabored Yes 08/28/24 14:47 respirations Mental status nausea No 08/28/24 14:47 Vomiting No 08/28/24 14:47 Anesthesia Postop Eval I: Fluid Summary Crystalloid volume administer 400 08/28/24 14:47 (ml) Colloids volume administered ( ml) Blood Product volume administered (ml) Total IV fluid infused 400 08/28/24 14:47 Anesthesia Postop Eval I: Summary Notes Anesthesia Complication No 08/28/24 14:47 Anesthesia Complication Comment: Post-operative progress note Anesthesia: Postop Eval II Evaluation Mental status: Awake Pain Level: 0 nausea: No Vomiting: No
[2024-08-28] MEDS: Acetaminophen 325 MG Tablet 650 MG PO (15:31)
--- NOTE | 2024-08-28 15:41 | SUR.PHASEII ---
trialed on room air, pt pulse ox was 94% on room air. Left oxygen off.
[2024-08-28] MEDS: oxyCODONE 5 MG Tablet PO (16:58)
[2024-08-28] MEDS: Pravastatin 40 MG Tablet PO (21:59)
[2024-08-29] MEDS: oxyCODONE 5 MG Tablet PO (03:35)
[2024-08-29] MEDS: Acetaminophen 500 MG Tablet PO ×2 (03:36→10:00)
[2024-08-29 04:03] VITALS: BP 131/60; PULSE 62; RESP 18; TEMP 36.4; O2SAT 97
[2024-08-29 06:36] LABS: Absolute Lymphocyte Count 2.13 X10^3/uL (0.83-4.51); Absolute Neutrophil Count 13.3 X10^3/uL (2.0-7.7); Basophil# 0.03 X10^3/uL; Basophil% 0.2 % (0-1); Hematocrit 32.7 % (37-47); Hemoglobin 10.9 g/dL (12.0-15.0); Lymphocyte # 2.13 X10^3/ul (0.83-4.51); Lymphocyte % 13.1 % (19-41); Mean Corp Hgb Conc 33.3 g/dL (32-36); Mean Corpuscular Hgb 30.1 pg (27.0-32.0); Mean Corpuscular Volume 90.3 fL (81-99); Mean Platelet Vol. 9.2 fl (6.2-12.0); Monocyte# 0.77 X10^3/uL; Monocyte% 4.7 % (0-10); NRBC Flagged by Analyzer 0 % (0-5); Neutrophil # 13.27 X10^3/uL (2.7-7.7); Neutrophil % 81.4 % (47-70); Platelet Count 289 K/mm3 (150-450); RBC Distribution Width CV 13.9 % (11.6-14.6); RBC Distribution Width SD 45.9 fl (35.1-43.9); Red Blood Count 3.62 M/mm3 (4.2-5.4); White Blood Count 16.3 K/mm3 (4.4-11.0)
--- NOTE | 2024-08-29 08:07 | PCM.PN.SRG ---
Subjective Subjective Patient evaluated resting comfortably in bed. She notes discomfort in the left lower quadrant where the hernia was located. She denies any nausea, vomiting, fever. She denies any flatus or bowel movement. Objective Data Objective Data Vital Signs: Vital Signs Temp Pulse Resp BP Pulse Ox O2 Del Method O2 Flow Rate 97.5 F L 62 18 131/60 H 97 Room Air 3 08/29/24 04:03 08/29/24 04:03 08/29/24 04:03 08/29/24 04:03 08/29/24 04:03 08/29/24 04:03 08/28/24 14:47 Oxygen Flow Rate (L/min) 3 Oxygen Delivery Method Room Air Weight: 138 lb 14.259 oz Body Mass Index (BMI) 26.2 Intake & Output: Intake and Output for Last 24 Hours 08/27/24 08/28/24 08/29/24 23:59 23:59 23:59 Intake Total 500 / 500 Output Total 600 / 600 Balance -100 / -100 Lab / Micro Data 08/29/24 05:37 08/22/24 13:38 Labs: Laboratory Results - last 24 hr 08/29/24 05:37: WBC 16.3 H, RBC 3.62 L, Hgb 10.9 L, Hct 32.7 L, MCV 90.3, MCH 30.1, MCHC 33.3, RDW Std Deviation 45.9 H, RDW Coeff of Juve 13.9, Plt Count 289, MPV 9.2, Immature Gran % (Auto) 0.600, Neut % (Auto) 81.4 H, Lymph % (Auto) 13.1 L, [place] % (Auto) 4.7, Eos % (Auto) 0.0, Baso % (Auto) 0.2, Absolute Neuts (auto) 13.3 H, Absolute Lymphs (auto) 2.13, Nucleated RBC % 0 Micro: Microbiology 08/22/24 13:38 Swab (Method) Nasal Screen MRSA/MSSA - Final Physical Exam GI GI Narrative: Abdomen- soft, slightly distended. Incisions c/d/i. No erythema or infection noted. Assessment & Plan Assessment/Plan (1) Hernia of abdominal wall: PLAN: I am following this patient in conjunction with Dr. Madrigal. He has independently evaluated this patient. Labs reviewed. WBC 16.3 Encourage ambulation and I.S this morning Hopeful discharge around lunchtime today Charges/Coding Visit Charges Inpatient E&M: 49758 Subs Hosp L1 (post-op; no charge)
[2024-08-29 09:36] VITALS: BP 118/54; PULSE 67; RESP 18; TEMP 36.8; O2SAT 94
[2024-08-29 09:49] VITALS: BP 118/54; PULSE 67
[2024-08-29] MEDS: Spironolactone 25 MG Tablet PO (09:49)
[2024-08-29] MEDS: Pantoprazole Sodium 40 MG Tablet PO (09:49)
[2024-08-29] MEDS: Metoprolol(XL)Succ 25 MG Tablet PO (09:49)
[2024-08-29] MEDS: amLODIPine 10 MG Tablet PO (09:50)
--- NOTE | 2024-08-29 11:37 | CASEMGMT ---
YUNG CM into pt room, pt sitting up in chair with dtr at bedside. Pt lives with another dtr in a mobile home with 3 steps to enter with a rail. Pt reports she is indep in bathing and dressing and her family handles all other tasks. Pt has a walk in shower with grab bars and a hardy as well as a w/c, rollator, 4 prong cane and walker. Pt denies any homegoing needs and states that she does better at home than in the hospital. Plan for pt to dc today.
[2024-08-29 13:40] VITALS: O2SAT 97
[2024-08-29 14:10] VITALS: BP 117/47; PULSE 62; RESP 18; TEMP 36.6; O2SAT 98
--- NOTE | 2024-08-29 18:32 | DS.PCM_ITS ---
Providers Date of Admission: 08/28/24 Primary Care Physician: Dr. Jamie Hall, DO Reason For Visit: Lap Robotic Ventral Hernia w/mesh poss lap Diagnosis Discharge Diagnosis (1) Hernia of abdominal wall: Status: Acute Code(s): K43.9 - Ventral hernia without obstruction or gangrene Medications at Discharge Home Medications aspirin 81 mg tablet,delayed release 81 mg PO DAILY HEART 11/24/16 cetirizine 10 mg tablet (Zyrtec) 10 mg PO QHS allergy symptoms 06/07/23 pantoprazole 40 mg tablet,delayed release 40 mg PO DAILY #90 tabs 04/11/24 metoprolol succinate 25 mg tablet,extended release 24 hr 25 mg PO BID #180 tabs 04/26/24 amlodipine 10 mg tablet 10 mg PO DAILY BP #90 tabs 06/30/24 spironolactone 25 mg tablet 25 mg PO DAILY #90 tabs 07/07/24 pravastatin 40 mg tablet 40 mg PO QHS CHOLESTROL 08/17/24 valsartan 160 mg tablet 160 mg PO DAILY 08/17/24 chlorhexidine gluconate 4 % topical liquid (Hibiclens) 1 applic topical DAILY 1 week #236 mL 08/24/24 mupirocin 2 % topical ointment 1 applic topical BID 1 week #15 grams 08/24/24 oxycodone 5 mg tablet 5 mg PO Q6H PRN pain 3 days #10 tabs 08/28/24 Hospital Course Operations herniorrhaphy (Left spigelian hernia repair via robotic approach 08/28/2024) Procedures None Summary of Care Provided Hospital Course: Patient 84-year-old female who underwent robot-assisted repair of left spigelian hernia mesh. Postoperatively she has been suboptimal pain control and doubted her ability to be successfully discharged so she was admitted under observation status. She was reevaluated postoperative day 1 feeling much improved. She described minor discomfort over her surgical site but was ambulating well. Her diet was advanced to an unrestricted diet upon reevaluation and she tolerated this advancement without difficulty. With these clinical improvements and at her request she was granted discharge to home with expectations for outpatient follow-up reviewed. Physical Exam Const alert, oriented x3 and no apparent distress Resp normal respiratory effort GI GI Narrative: Nondistended, surgical sites with dressings clean dry and intact, soft, appropriately tender about incision sites and left lower quadrant but of only mild intensity. Weight / BMI Weight Weight: 138 lb 14.259 oz Body Mass Index (BMI) 26.2 ABG / Lab / Microbiology Data 08/29/24 05:37 08/22/24 13:38 Laboratory: Laboratory Results - last 24 hr 08/29/24 05:37: WBC 16.3 H, RBC 3.62 L, Hgb 10.9 L, Hct 32.7 L, MCV 90.3, MCH 30.1, MCHC 33.3, RDW Std Deviation 45.9 H, RDW Coeff of Juve 13.9, Plt Count 289, MPV 9.2, Immature Gran % (Auto) 0.600, Neut % (Auto) 81.4 H, Lymph % (Auto) 13.1 L, [place] % (Auto) 4.7, Eos % (Auto) 0.0, Baso % (Auto) 0.2, Absolute Neuts (auto) 13.3 H, Absolute Lymphs (auto) 2.13, Nucleated RBC % 0 Microbiology: Microbiology 08/22/24 13:38 Swab (Method) Nasal Screen MRSA/MSSA - Final D/C Instructions Discharge Diet: No restrictions May shower in (days): 2 Ice area for (Minutes): 20 Call your doctor if your incision/area has: Continuous Slow Oozing, Increased Pain/ Swelling, Increased Redness, Foul Smelling Discharge and Swelling at the incision site Call your doctor if you observe: Fever of 101 or Higher, Inability to urinate and Inability to have a bowel movement Cleanse incision/area with: Soap & Water and Keep Dressing Clean & Dry DC O2, CPAP, BIPAP Needs Home O2 Discharge instructions: No Please Follow Up With: Hamilton Madrigal MD When: 1 week postop Meaningful Use Info Meaningful Use Meaningful Use Diagnoses (Choose all that apply): None applicable Ischemic Stroke Statin Dosing Therapy Reference: STATIN DOSE THERAPY REFERENCE: * Patients > 75 years receive moderate or high dose statin therapy. * Patients 75 years or YOUNGER should receive HIGH intensity statin dose unless contraindicated. You will be required to document reason for non-treatment if statin daily dose does not meet guidelines. HIGH DOSE STATIN THERAPY DAILY Atorvastatin > than or = to 40 mg Rosuvastatin > than or = to 20 mg Amlodipine + Atorvastatin > than or = to 2.5/40 mg Ezetimibe + Simvastatin 10/80 mg Simvastatin 80mg Discharge Plan Admission Admit Date/Time: 08/28/24 16:58 Primary Reason for Your Visit: Left spigelian hernia repair Attending Provider: Hamilton Madrigal Primary Care Provider: Jamie Hall Instructions Additional Instructions / Restrictions: Hernia Diet ? Start light with soups and soft bland foods. You may advance diet as tolerated. Activity ? You may drive in 7 days but not while taking narcotic pain medication. ? I encourage walking. You may go up steps, one at a time. ? Do not swim or use hot tubs for 2 weeks. ? For comfort, you may use warm compresses or ice as needed for 15-20 minutes at a time. Lifting ? You may lift up to 10 pounds for 5 weeks. Dressings/Incision ? You may shower OVER your plastic dressings ? Do NOT tub bathe for 1 week ? Leave plastic dressings on for 2 days. ? When plastic dressings are removed, you will find steri strips. It is okay to continue showering with them in place, pat them dry. ? You may remove steri-strips after 1 week. We recommend getting them soaking wet for easier removal. Medications ? Anesthesia used during surgery and pain medications may cause constipation. I recommend initiating on the day of surgery a fiber supplement like, Metamucil, Citrucel, FiberCon, Benefiber, or a generic form of these medications. 1 heaping tablespoon in water daily. You may continue to utilize any bowel regimen or oral laxatives that you routinely take. ? As long as you are not intolerant to Tylenol, acetaminophen, ibuprofen, Motrin, Advil, Aleve, or similar medications, I would recommend transitioning to these [id number] medicines as soon as possible instead of continued use of narcotic pain medication. Follow up ? You should call [facility] soon after surgery, at [phone] option [phone] to make a follow up appointment for 7-10 days after your surgery. Discharge Orders/Prescriptions Prescriptions: New oxycodone 5 mg tablet 5 mg PO Q6H PRN (Reason: pain) 3 Days Qty: 10 0RF Continued cetirizine [Zyrtec] 10 mg tablet 10 mg PO QHS metoprolol succinate 25 mg tablet extended release 24 hr 25 mg PO BID Qty: 180 2RF pantoprazole 40 mg tablet,delayed release (DR/EC) 40 mg PO DAILY Qty: 90 1RF aspirin 81 MG tablet,delayed release (DR/EC) 81 mg PO DAILY pravastatin 40 mg tablet 40 mg PO QHS valsartan 160 mg tablet 160 mg PO DAILY amlodipine 10 mg tablet 10 mg PO DAILY Qty: 90 1RF spironolactone 25 mg tablet 25 mg PO DAILY Qty: 90 0RF mupirocin 2 % ointment 1 applic topical BID 7 Days Qty: 15 0RF Rx Instructions: apply to bilateral nares with a q-tip twice daily. chlorhexidine gluconate [Hibiclens] 4 % liquid 1 applic topical DAILY 7 Days Qty: 236 0RF Rx Instructions: shower with hibiclens once daily Referrals / Follow Up: Jamie Hall DO [Primary Care Provider] - Disposition Disposition (needs filled in before D/C Order can be placed): Home, Self Care Charges/Coding Visit Charges Inpatient E&M: 81513 Disch Hosp
== END 2024-08-29 14:28 | disposition home or self-care (01) ==
LOC: SDC 17:50 → MS3 17:50
PROVIDERS: Anesthesiology; Admitting Provider Surgery; PCP Family Medicine; Referring Provider Surgery; Visit Provider Surgery
PROC: (CPT 49592; principal; 2024-08-28 10:35)
DX: K43.6 Other and unspecified ventral hernia with obstruction, without gangrene (principal); T81.82XA Emphysema (subcutaneous) resulting from a procedure, initial encounter; Y65.8 Other specified misadventures during surgical and medical care; Y92.234 Operating room of hospital as the place of occurrence of the external cause
CPT/HCPCS: 49592; 00830; 36415; 80048; 85025; 85027; 87077; 87081; 93005; 94668; 99221; 99252; G0378; G0463; J0666; J2405

== ENCOUNTER → 2024-09-18 | Outpatient (CLI) | payer MEDICARE, SELFPAY | END | disposition home or self-care (01) | LOC: LABSPEC 15:47 | PROVIDERS: PCP Family Medicine; Referring Provider Physician Assistant; Visit Provider Physician Assistant | DX: R19.7 Diarrhea, unspecified (principal) | CPT/HCPCS: 82274; 83630; 87506 ==

== ENCOUNTER → 2024-10-11 | Outpatient (CLI) | payer MEDICARE, SELFPAY | END | disposition home or self-care (01) | LOC: LABSPEC 13:24 | PROVIDERS: PCP Family Medicine; Referring Provider Family Medicine; Visit Provider Family Medicine | DX: J10.1 Influenza due to other identified influenza virus with other respiratory manifestations (principal); Z11.52 Encounter for screening for COVID-19 | CPT/HCPCS: 87631 ==

== ENCOUNTER → 2024-10-25 | Outpatient (CLI) | payer MEDICARE, SELFPAY ==
[2024-10-25 15:15] LABS: Absolute Lymphocyte Count 2.72 X10^3/uL (0.83-4.51); Basophil# 0.05 X10^3/uL; Basophil% 0.6 % (0-1); Eosinophil# 0.09 X10^3/uL; Eosinophils% 1.1 % (0-5); Hematocrit 37.8 % (37-47); Hemoglobin 12.6 g/dL (12.0-15.0); Lymphocyte # 2.72 X10^3/ul (0.83-4.51); Lymphocyte % 34.4 % (19-41); Mean Corp Hgb Conc 33.3 g/dL (32-36); Mean Corpuscular Hgb 30.5 pg (27.0-32.0); Mean Corpuscular Volume 91.5 fL (81-99); Mean Platelet Vol. 9.4 fl (6.2-12.0); Monocyte# 1.05 X10^3/uL; Monocyte% 13.3 % (0-10); NRBC Flagged by Analyzer 0 % (0-5); Neutrophil # 3.98 X10^3/uL (2.7-7.7); Neutrophil % 50.3 % (47-70); Platelet Count 372 K/mm3 (150-450); RBC Distribution Width SD 43.6 fl (35.1-43.9); Red Blood Count 4.13 M/mm3 (4.2-5.4); White Blood Count 7.9 K/mm3 (4.4-11.0)
[2024-10-25 17:47] LABS: ALB/GLOB Ratio 0.9 RATIO (0.9-2.4); AST(SGOT) 90 U/L (<=31); Alanine Aminotransfer ALT/SGPT 98 U/L (<=34); Albumin, Serum 3.5 g/dL (3.4-4.8); Alkaline Phosphatase 78 U/L (35-104); Anion Gap 10 (5-15); BUN 26 mg/dL (4-19); BUN/Creat Ratio 35.9 RATIO (10-20); Calcium,Total 9.5 mg/dL (7.6-11.0); Carbon Dioxide 22.4 mmol/L (21.0-32.0); Chloride 96 mmol/L (98-108); Creatinine, Serum 0.72 mg/dL (0.70-1.20); EST Glomerular Filtration Rate 82 (>60); Globulin 3.9 g/dL (2.2-4.2); Glucose 96 mg/dL (70-99); Protein, Total 7.4 g/dL (5.9-8.4); Sodium Level 129 mmol/L (133-145); Total Bilirubin 0.48 mg/dL (0.00-1.30)
== END | disposition home or self-care (01) ==
LOC: BIMLAB 11:54
PROVIDERS: PCP Family Medicine; Referring Provider Family Medicine; Visit Provider Family Medicine
DX: J10.1 Influenza due to other identified influenza virus with other respiratory manifestations (principal); R79.89 Other specified abnormal findings of blood chemistry
CPT/HCPCS: 36415; 80053; 85025

== ENCOUNTER → 2024-11-18 | Outpatient (CLI) | payer MEDICARE, SELFPAY | END | disposition home or self-care (01) | LOC: LAB 12:04 | PROVIDERS: PCP Family Medicine; Referring Provider Student in an Organized Health Care Education/Training Program; Visit Provider Student in an Organized Health Care Education/Training Program | DX: R19.7 Diarrhea, unspecified (principal) | CPT/HCPCS: 87493 ==

== ENCOUNTER → 2024-11-22 | Outpatient (CLI) | payer MEDICARE, SELFPAY ==
[2024-11-25 08:08] LABS: Calprotectin, Stool 408 ug/g (0-120)
== END | disposition home or self-care (01) ==
LOC: LABSPEC 11:42
PROVIDERS: PCP Family Medicine; Visit Provider Student in an Organized Health Care Education/Training Program
DX: K58.0 Irritable bowel syndrome with diarrhea (principal)
CPT/HCPCS: 83993; 87177; 87209; 87329

== ENCOUNTER 2025-05-02 06:22 | Day surgery (SDC) | payer MEDICARE, SELFPAY ==
--- NOTE | 2025-04-26 19:46 | PAT.ANESEVAL ---
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 When Was Last Pacemaker Check QUESTION #4 FULL TEXT: You/Your Family Experience fever (hyperthermia) with Anesthesia Last Oral Intake Last Oral intake: Last Oral Intake NPO since Meds taken in AM with sips of water? 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 - electrical checkout mechanic: PONV - electrical checkout mechanic Female Yes 04/26/25 13:59 HX of Motion Sickness No 04/26/25 13:59 HX of N/V After Surgery No 04/26/25 13:59 Non-Smoker Yes 04/26/25 13:59 Duration of Surgery greater No 04/26/25 13:59 than 60 minutes Number of Risk Factors 2 04/26/25 13:59 PONV Score Moderate Risk 04/26/25 13:59 Height & Weight Height & Weight: Anesthesia: Height & Weight Height 5 ft 03/22/25 15:36 Respiratory Assessment Respiratory Assessment - electrical checkout mechanic: Respiratory Tract Infection Hx - electrical checkout mechanic Hx Respiratory Tract Infection No 04/26/25 13:59 STOP Sleep Apnea STOP Sleep Apnea - electrical checkout mechanic: STOP Sleep Apnea - electrical checkout mechanic Hx Hypertension Yes: CONTROLLED WITH MEDS 04/26/25 13:59 Hx Sleep Apnea No 04/26/25 13:59 CPAP BIPAP Do you snore loudly (louder No 04/26/25 13:59 than talking or can be heard Do you often feel tired/ No 04/26/25 13:59 fatigued/ sleepy during daytime? Has anyone observed you stop No 04/26/25 13:59 breathing during sleep? STOP Results Negative 04/26/25 13:59 QUESTION #5 FULL TEXT : Do you snore loudly (louder than talking or can be heard through closed doors)? 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 Specify any problems Hx of Preganancy in last 3 N/A 04/26/25 13:59 Months Nurse Filling Out Transfusion NBUCHER 04/26/25 13:59 & Questions: Date: 04/26/25 04/26/25 13:59 Time: 14:00 04/26/25 13:59 Patient unable to answer at this time (ie. confused, unrespo /Reproduction History /Reproductive History - electrical checkout mechanic: /Reproductive Hx- electrical checkout mechanic Hx Now Gestational Age (in weeks): EDC: Hx Hx Para Hx Section SAB No 04/26/25 13:59 PFSH Medical History (Updated 04/26/25 @ 14:04 by Katelyn Keyes) Loss of hearing Wears glasses Wears dentures Anxiety Ambulates with cane Bladder disease Injury of head and neck Loss of consciousness Diarrhea Difficulty swallowing History of diverticulitis Gastric reflux Shortness of breath on exertion Leg cramps History of edema History of normal Holter exam History of echocardiogram History of stress test Cardiology follow-up encounter Non-smoker Chronic pain Atrial fibrillation Shortness of breath Cardiac murmur History of hemorrhoids Frequent headaches Chronic back pain History of stomach ulcers Arthritis Hyperlipemia Hypertension History of pneumonia Home Medications ?Medication ?Instructions ?Recorded ?Last Taken ?Type aspirin 81 mg tablet,delayed 81 mg PO DAILY HEART 11/24/16 08/23/24 History release cetirizine 10 mg tablet (Zyrtec) 10 mg PO QHS allergy symptoms 06/07/23 08/27/24 21:30 History valsartan 160 mg tablet 160 mg PO DAILY #90 tabs 10/11/24 Unknown Rx methylcellulose (with sugar) oral 1 tbsp PO BID 01/10/25 Unknown History powder (Citrucel (sucrose) oral powder) metoprolol succinate 25 mg 25 mg PO BID #180 TABLETS 01/16/25 Unknown Rx tablet,extended release 24 hr pantoprazole 40 mg tablet,delayed 40 mg PO DAILY #90 tabs 03/26/25 Unknown Rx release amlodipine 10 mg tablet 10 mg PO DAILY for blood pressure 04/10/25 Unknown Rx #90 TABLETS nitrofurantoin macrocrystal 50 mg 50 mg PO QHS #90 caps 04/10/25 Unknown Rx capsule pravastatin 40 mg tablet 40 mg PO DAILY for cholesterol #90 04/10/25 Unknown Rx TABLETS spironolactone 25 mg tablet 25 mg PO DAILY #90 TABLETS 04/10/25 Unknown Rx Allergy/AdvReac Type Severity Reaction Status Date / Time nitroglycerin Allergy Mild NEEDS Verified 04/26/25 13:55 FOLLOW-UP amiodarone Allergy Rash Verified 04/26/25 13:55 chlorpheniramine (From AdvReac Other Verified 04/26/25 13:55 Actifed Cold-Allergy) phenylephrine (From Actifed AdvReac Other Verified 04/26/25 13:55 Cold-Allergy) pseudoephedrine (From AdvReac Other Verified 04/26/25 13:55 Actifed Cold-Allergy) triprolidine (From Actifed AdvReac Other Verified 04/26/25 13:55 Cold-Allergy) Family History Mother Diabetes Hypertension CVA (cerebral vascular accident) Father Myocardial infarction, Onset Age: 80 Brother Cancer Surgical History (Updated 04/26/25 @ 14:04 by Katelyn Keyes) History of ventral hernia repair S/P spigelian hernia repair, follow-up exam History of cardiac catheterization Hx of colonoscopy History of esophagogastroduodenoscopy (EGD) History of tonsillectomy History of appendectomy History of hysterectomy History of back surgery History of foot surgery Social History Smoking Status: Never smoker alcohol intake: never substance use type: does not use what type of physical activity do you participate in: walking frequency: daily Audit: Pertinent Findings Pertinent Findings EKG Perinent findings: 08/22/2024. Sinus bradycardia at 53 bpm with sinus arrhythmia. Echo (EF%) pertinent findings: 06/16/2023. Appears to be trivial to small pericardial effusion. EF 65%. 06/12/2023. Left ventricular systolic function is normal. Left atrium is enlarged. No left atrial mass/thrombus. 06/08/2023. EF of 70%. No aortic stenosis noted. Moderate pericardial effusion new since the last exam 05/26/2023. Consult pertinent findings: 10/26/2023. Dr. Phipps cardiology. 1. Paroxysmal atrial fibrillation/flutter-given history of adverse bleeding and minimal A-fib burden (3%) patient will remain off of Coumadin. Patient was given option of left atrial appendage occlusion device and would like to defer for now. Continue beta-blockade. 2. Hypertension well-controlled continue meds. 3. History of left rectus sheath hematoma-status post coil embolization 06/15/2023. Patient remains off Coumadin. Additional pertinent findings: June 2023. Holter monitor. Predominant sinus rhythm with episodes of a flutter averaging heart rate of 75 bpm. Atrial flutter present 3% burden no ventricular tachycardia. No episodes of high-grade block. Recommendation Anesthesia Recommendation Anesthesia recommendation: OPTIMIZED for anesthesia
[2025-05-02] VITALS (8 sets, daily range): BP systolic 139–157; BP diastolic 52–62; PULSE 53–61; RESP 16–18; TEMP 36.1–36.3; O2SAT 95–99; BMI 25.4
--- OUTSIDE RECORDS SUMMARY | 2025-05-02 06:28 | XMS RPT_ITS | CCD ---
Author Organization [facility] Care Team Providers Care Wax Molder Name Role Phone Dr. Coy Nath Primary Care Provider [phone] Dr. Coy Nath Referring Provider [phone] SWATI Castrejon Attending Provider Unavailab Dr. Coy Nevarez Attending Provider [phone] Dr. Coy Nath Primary Care Provider [phone] Dr. Coy Nath Referring Provider [phone] SWATI Christensen Attending Provider Dr. Coy Nath Attending Provider [phone] SWATI Coats Attending Provider Dr. Reinier Toney Emergency Provider Dr. Anjum Wilson Admit Provider Dr. Anjum Wilson Other Provider Dr. Sivan Martinez Attending Provider Dr. Sivan Martinez Other Provider Dr. Chon Almendarez Attending Provider SWATI Christensen Attending Provider SWATI Coats Attending Provider Dr. Angelica Brown Attending Provider Dr. Binh Ken Emergency Provider Dr. Colton Mayfield Admit Provider Dr. Colton Mayfield Attending Provider Dr. Colton Mayfield Other Provider Mic, Dr. Morales Attending Provider Dr. Coy Nath Primary Care Provider Dr. Coy Nath Referring Provider Joshua LONGORIA, PA Srikanth Attending Provider Unavailable Primary Care Provider Unavailabl e COY NATH DO R Primary Care Physician Mal Phipps MD Unavailable [phone] PORTILLO DOCOY R Attending Unavailable PORTILLO DOCOY R Primary Care Unavailable COY NATH DO R Primary Care Unavailable COY NATH DO R Attending Unavailable BALDEV KULKARNI MD Attending Unavailable PORTILLO DOCYO R Primary Care Unavailable Dr. Coy Nath Primary Care Provider [phone] Dr. Coy Nath Attending Provider [phone] Dr. Coy Nath Referring Provider Joshua LONGORIA, SWATI Duke Attending Provider Ronald LONGORIA, SWATI Lock Attending Provider Dr. Reinier Toney Emergency Provider Dr. Anjum Wilson Admit Provider Dr. Anjum Wilson Other Provider Dr. Sivan Martinez Attending Provider Dr. Sivan Martinez Other Provider Dr. Chon Almendarez Attending Provider Dr. Angelica Brown Attending Provider Dr. Binh Ken Emergency Provider Dr. Colton Mayfield Admit Provider Dr. Colton Mayfield Attending Provider Dr. Colton Mayfield Other Provider Mic, Dr. Morales Attending Provider Dr. Coy Nath Primary Care Provider [phone] Dr. Coy Nath Referring Provider [phone] Dr. Coy Nath Attending Provider [phone] Dr. Coy Nath Primary Care Provider [phone] Dr. Coy Nath Referring Provider Dr. Sivan Martinez Attending Provider Dr. Sivan Martinez Other Provider CLARI JEFFERS Admitting Unavailable TAYAL, BHUPENDAR Attending Unavailable JANE GIRALDO Consulting Unavailable SEBASTIAN, DESENA Luis Referring Unavailable DEVOODESEAN BROWN Referring Unavailable DESIREMAL LAMAR Attending Unavailable MAL PHIPPS Referring Unavailable MAL PHIPPS Attending Unavailable Dr. Coy Nath DO Primary Care Provider Dr. Coy Nath DO Referring Provider [phone] Dr. Emily Madrigal MD Attending Provider Imtiaz uTrner Attending Provider Imtiaz Turner Referring Provider Dr. Emily Leyva MD Attending Provider Dr. Emily Madrigal MD Referring Provider Dr. Emily Madrigal MD Other Provider Dr. Emily Madrigal MD Admit Provider Nandini Grant PA-C Attending Provider Nandini Grant PA-C Referring Provider Dr. Coy Nath DO Attending Provider [phone] Dr. Coy Nath DO Primary Care Provider [phone] Dr. Coy Nath DO Referring Provider [phone] Dr. Emily Madrigal MD Attending Provider Bárbara Serrano Attending Provider [phone] Bárbara Serrano Referring Provider [phone] Coy Nath DO Primary Care Provider Portillo AZUL, Dr. Coy Alfonso Referring Provider [phone] Portillo AZUL, Dr. Coy Alfonso Primary Care Provider [phone] Nandini Grant PA-C Attending Provider Juanita HOUSER, Nandini Referring Provider Portillo AZUL, Dr. Coy Alfonso Referring Provider [phone] Dr. Emily Madrigal MD Attending Provider Portillo AZUL, Dr. Coy Alfonso Primary Care Provider Bárbara Serrano Attending Provider [phone] Portillo AZUL, Dr. Coy Alfonso Referring Provider [phone] Portillo AZUL, Dr. Coy Alfonso Attending Provider [phone] Emily Madrigal Consulting Unavailable Emily Madrigal Referring Unavailable Emily Madrigal Attending Unavailable Brown, Coy R Primary Care Unavailable Brown, Coy R Primary Care Unavailable Imtiaz Huffman Attending Unavailable Brown, Coy R Referring Unavailable Brown, Coy R Primary Care Unavailable Brown, Coy R Referring Unavailable Brown, Coy R Attending Unavailable Brown, Coy R Primary Care Unavailable Nandini Wilder Attending Unavailable Brown, Coy R Referring Unavailable George Guzmán Attending Unavailable Brown, Coy R Referring Unavailable Brown, Coy R Primary Care Unavailable Reinier Toney Attending Unavailable Reinier Toney Referring Unavailable Brown, Coy R Primary Care Unavailable Brown, Coy R Primary Care Unavailable Imtiaz Huffman Attending Unavailable Imtiaz Huffman Referring Unavailable Emily Madrigal Consulting Unavailable Emily Madrigal Admitting Unavailable Emily Madrigal Referring Unavailable Brown, Coy R Primary Care Unavailable Nandini Wilder Attending Unavailable Emily Madrigal Attending Unavailable Brown, Coy R Referring Unavailable Brown, Coy R Primary Care Unavailable Emily Madrigal Attending Unavailable Brown, Coy R Primary Care Unavailable Brown, Coy R Referring Unavailable Brown, Coy R Primary Care Unavailable Brown, Coy R Attending Unavailable Brown, Coy R Referring Unavailable Brown, Coy R Primary Care Unavailable Brown, Coy R Referring Unavailable Brown, Coy R Attending Unavailable Brock Wynn Referring Unavailable Brock Wynn Attending Unavailable Brown, Coy R Primary Care Unavailable Bárbara Logan Referring Unavailable Bárbara Logan Attending Unavailable Brown, Ocy R Primary Care Unavailable Bárbara Logan Attending Unavailable Brown, Coy R Primary Care Unavailable Keisha Coronel Referring Unavailable Keisha Coronel Attending Unavailable Brown, Coy R Primary Care Unavailable Emily Madrigal Admitting Unavailable Emily Madrigal Referring Unavailable Emily Madrigal Attending Unavailable Brown, Coy R Primary Care Unavailable Brock Wynn Attending Unavailable Brown, Coy R Referring Unavailable Brown, Coy R Primary Care Unavailable Keisha Coronel Attending Unavailable Brown, Coy R Referring Unavailable Brown, Coy R Primary Care Unavailable Brown, Coy R Referring Unavailable Brown, Coy R Primary Care Unavailable Brown, Coy R Attending Unavailable Brown, Coy R Primary Care Unavailable Nandini Wilder Attending Unavailable Nandini Wilder Referring Unavailable Bárbara Logan Attending Unavailable Brown, Coy R Referring Unavailable Brown, Coy R Primary Care Unavailable Bárbaar Logan Attending Unavailable Brown, Coy R Referring Unavailable Brown, Coy R Primary Care Unavailable Brown, Coy R Referring Unavailable Brown, Coy R Primary Care Unavailable Brown, Coy R Attending Unavailable Bárbara Logan Attending Unavailable Brown, Coy R Referring Unavailable Brown, Coy R Primary Care Unavailable Emily Madrigal Referring Unavailable Brown, Coy R Primary Care Unavailable Emily Leyva Attending Unavailable Allergies Allergy Classification Reported Allergen(s) Allergy Type Date of Onset Reaction(s) Facility (16 sources) Chlorpheniramine Drug Allergy 2 Other [facility] (16 sources) Phenylephrine Drug Allergy 2 [facility] (20 sources) Pseudoephedrine; Translations: [pseudoephedrine] Drug Allergy 2 Unknown [facility] (20 sources) Triprolidine; Translations: [triprolidine] Drug Allergy 2 Unknown [facility] (1 source) NITRO PATCH Allergy to substance 2 [facility] Work Phone: (20 sources) Nitroglycerin; Translations: [nitroglycerin] Drug Allergy 3 Syncope [facility] Comment on above: SPECIFICALLY NITRO P ATCH (14 sources) Amiodarone; Translations: [AMIODARONE] Drug Allergy 3 [facility] (1 source) Amiodarone Drug Allergy 5 [facility] (1 source) Chlorpheniramine Drug Allergy 5 [facility] (1 source) Nitroglycerin Drug Allergy 5 [facility] (1 source) Phenylephrine Drug Allergy 5 [facility] (1 source) Pseudoephedrine Drug Allergy 5 [facility] (1 source) Triprolidine Drug Allergy 5 [facility] Medications Current Medications Medication Drug Class(es) Dates Sig (Normalized) Sig (Original) acetaminophen 325 mg oral tablet (5 sources) Start: 06-23-2023 take 2 tablets by mouth every six hours for pain acetaminophen (Tylenol) 325 mg tablet Indications: Pericardial effusion Take 2 tablets (650 mg) by mouth every 6 hours if needed for mild pain (1 - 3). 30 tablet 0 06/23/2023 Active aspirin 81 mg delayed release oral tablet (20 sources) Platelet Aggregation Inhibitor, Nonsteroidal Anti-inflammatory Drug Start: 11-24-2016 take 1 tablet by mouth once daily Aspirin 81 MG tablet,delayed release (DR/EC) Active 81 mg PO DAILY November 24, 2016 12:00am HEART Start: 06-17-2016 take 1 dose by mouth once randolph y aspirin Dose : 81 mg =, Oral, qDay Start Date: 06/17/16 Status: Ordered cetirizine hydrochloride 10 mg oral tablet (17 sources) Histamine-1 Receptor Antagonist Start: 06-07-2023 take 1 tablet by mouth at bedtime Cetirizine (Zyrtec) 10 mg tablet Active 10 mg PO AT BEDTIME June 07, 2023 12:00am allergy symptoms Methylcellulose (20 sources) Start: 01-10-2025 Methylcellulose (With Sugar) (Citrucel (Sucrose)) powder Active 1 tbsp PO TWICE A DAY January 10, 2025 9:44am Start: 10-05-2024 End: 01-10-2025 Methylcellulose (With Sugar) (Citrucel (Sucrose)) powder Discontinued 1 tbsp PO daily October 05, 2024 1:00am January 10, 2025 9:45am Start: 10-05-2024 Methylcellulos e (With Sugar) (Citrucel (Sucrose)) powder Active 1 tbsp PO daily October 05, 2024 1:00am Start: 01-08-2021 End: 07-01-2023 take 1 tablet by mouth once daily as needed for constipation Methylcellulose (Laxative) (Citrucel) 500 mg tablet Discontinued 500 mg PO DAILY as needed for constipation January 08, 2021 12:00am July 01, 2023 3:55pm Start: 11-01-2018 End: 11-05-2018 take 1 tablet by mouth once Methylcellulose (Laxative) (Citrucel) 500 mg tablet Discontinued 500 mg PO ONCE November 01, 2018 12:00am November 05, 2018 10:21am methylPREDNISolone 4 mg oral tablet (1 source) Corticosteroid Start: 07-05-2023 End: 07-11-2023 Medrol Dosepak 4 mg oral tablet Per Dosepak Instructions, Oral, Daily, X 6 day(s), # 21 tab(s), 0 Refill(s), 07/11/23 12:39:00 PM EST Start Date: 07/05/23 Stop Date: 07/11/23 Status: Ordered 24 hr metoprolol succinate 25 mg extended release oral tablet (20 sources) beta-Adrenergic Radha Start: 07-09-2023 End: 01-16-2025 take 1 tablet by mouth twice daily Metoprolol Succinate 25 mg tablet extended release 24 hr Active 25 mg PO TWICE A DAY 180 2 January 16, 2025 8:14am Start: 05-26-2023 End: 06-07-2023 Metoprolol Tartrate 25 mg Ta blet Discontinued 12.5 mg PO TWICE A DAY 30 May 26, 2023 12:00am June 07, 2023 8:28pm Start: 05-26-2023 End: 06-07-2023 take 12.5 mg by mouth twice daily Metoprolol Tartrate Discontinued 12.5 MG PO TWICE A DAY 30 May 25, 2023 11:00pm June 07, 2023 7:28pm End: 07-20-2023 metoprolol tartrate (Lopress or) 25 mg tablet Take by mouth. 0 07/20/2023 Discontinued (Med List Cleanup) nitrofurantoin, macrocrystals 50 mg oral capsule (20 sources) Nitrofuran Antibacterial Start: 10-10-2024 End: 01-09-2025 take 1 capsule by mouth at bedtime Nitrofurantoin Macrocrystal 50 mg capsule Active 50 mg PO AT BEDTIME 90 0 January 09, 2025 11:39am Start: 07-01-2023 End: 08-17-2024 take 1 capsule by mouth at bedtime Nitrofurantoin Macrocrystal 50 mg capsule Discontinued 50 mg PO AT BEDTIME 90 0 July 04, 2024 9:28am August 17, 2024 2:09pm Start: 07-01-2023 End: 07-21-2023 Nitrofurantoin Macrocrystal Discontinued MG PO July 01, 2023 12:00am July 21, 2023 4:29pm Start: 05-06-2023 End: 05-13-2023 take 1 capsule by mouth at mealtime Nitrofurantoin Macrocrystal (Macrodantin) 50 mg capsule Discontinued 50 mg PO AT BEDTIME 30 2 May 06, 2023 12:00am May 13, 2023 3:48pm must administer with a meal/food Start: 12-12-2019 End: 12-21-2019 take 1 capsule by mouth twice daily at mealtime Nitrofurantoin Macrocrystal (Macrodantin) 100 mg capsule Discontinued 100 mg PO TWICE A DAY 20 0 December 12, 2019 12:00am December 21, 2019 3:37pm must administer with a meal/food nitrofurantoin, macrocrystals 25 mg / nitrofurantoin, monohydrate 75 mg oral capsule (5 sources) Nitrofuran Antibacterial take 1 capsule by mouth once daily at bedtime nitrofurantoin, macrocrystal-monohydrate, (Macrobid) 100 mg capsule Indications: prevention of bacterial urinary tract infection Take 1 capsule (100 mg) by mouth once daily at bedtime. 0 Active Pumpkin Seed Extract-Soy Germ (Azo Bladder Control) 300 mg capsule (16 sources) Start : 01-08 Pumpkin Seed Extract-Soy Sorin m (Azo Bladder Control) 300 mg capsule Active CAP PO January 08, 2021 10:30am Start: 01-08-2021 End: 05-25-2023 Pumpkin Seed Extract-Soy Sorin m (Azo Bladder Control) 300 mg capsule Discontinued NMA PO January 08, 2021 12:00am May 25, 2023 3:19pm Start: 01-08-2021 End: 05-25-2023 Pumpkin Seed Extract-Soy Sorin m (Azo Bladder Control) 300 mg capsule Discontinued CAP PO January 07, 2021 11:00pm May 25, 2023 2:19pm Start: 01-08-2021 End: 05-25-2023 Pumpkin Seed Extract-Soy Sorin m (Azo Bladder Control) 300 mg capsule Discontinued CAP PO January 08, 2021 12:00am May 25, 2023 3:19pm Start: 01-08-2021 Pumpkin Seed E xtract-Soy Germ (Azo Bladder Control) 300 mg capsule Active CAP PO January 08, 2021 12:00am Completed/Discontinued Medications Medication Drug Class(es) Dates Sig (Normalized) Sig (Original) acetaminophen 325 mg / HYDROcodone bitartrate 5 mg oral tablet (6 sources) Opioid Agonist Start: 06-01-2024 End: 07-04-2024 Hydrocodone-Acetamin ophen 5-325 mg tablet Discontinued 1 {tbl} PO EVERY 6 HOURS as needed for pain 6 2 0 June 01, 2024 July 04, 2024 3:59pm Sacroiliac joint dysfunction of left side Sacrococcygeal disorders, not elsewhere classified amiodarone hydrochloride 200 mg oral tablet (18 sources) Antiarrhythmic Start: 07-01-2023 End: 07-21-2023 take 1 mg by mouth twice daily Amiodarone Discontinued MG PO TWICE A DAY July 01, 2023 12:00am July 21, 2023 3:56pm Start: 06-26-2023 End: 07-20-2023 take 1 tablet by mouth once daily amiodarone (Pacerone) 200 mg tablet Indications: atrial fibrillation Take 1 tablet (200 mg) by mouth once daily. Do not start before June 26, 2023. 30 tablet 3 06/26/2023 07/20/2023 Discontinued (Side effects) Start: 06-26-2023 take 1 tablet by simin th once daily amiodarone (Pacerone) 200 mg tablet Indications: atrial fibrillation Take 1 tablet (200 mg) by mouth once daily. Do not start before June 26, 2023. 30 tablet 3 06/26/2023 Active Start: 06-26-2023 take 1 tablet by simin th once daily amiodarone (Pacerone) 200 mg tablet Indications: atrial fibrillation Take 1 tablet (200 mg) by mouth once daily. Do not start before June 26, 2023. 30 tablet 3 06/26/2023 Active Start: 06-23-2023 End: 07-21-2023 take 1 mg by mouth twice daily Amiodarone 200 mg table t Discontinued mg PO TWICE A DAY July 01, 2023 1:00am July 21, 2023 4:56pm amLODIPine 10 mg oral tablet (20 sources) Dihydropyridine Calcium Channel Radha Start: 06-17-2016 End: 10-25-2024 take 1 tablet by mouth once daily Amlodipine 10 mg tablet Discontinued 10 mg PO DAILY 90 1 June 30, 2024 5:28pm October 25, 2024 11:44am BP amoxicillin 875 mg oral tablet (6 sources) Penicillin-class Antibacterial Start: 07-27-2024 End: 08-17-2024 take 1 tablet by mouth twice daily Amoxicillin 875 mg tablet Discontinued 875 mg PO TWICE A DAY 20 0 July 27, 2024 1:00am August 17, 2024 2:09pm amoxicillin 875 mg / clavulanate 125 mg oral tablet (20 sources) Penicillin-class Antibacterial Start: 09-02-2021 End: 10-24-2021 Amoxicillin-Pot Clavulanate 875-125 mg tablet Discontinued 1 {tbl} PO TWICE A DAY 14 0 September 02, 2021 12:35pm October 24, 2021 2:28pm Start: 09-02-2021 End: 10-24-2021 take 1 tablet by mouth twice daily Amoxicillin-Pot Clavulanate Discontinued 1 TABLET PO TWICE A DAY 14 September 02, 2021 11:35am October 24, 2021 1:28pm Start: 12-21-2019 End: 01-08-2021 Amoxicillin-Pot Clavulanate (Augmentin) 875-125 mg tablet Discontinued 1 {tbl} PO TWICE A DAY 14 December 21, 2019 12:00am January 08, 2021 10:29am azithromycin 250 mg oral tablet (20 sources) Macrolide Antimicrobial Start: 10-11-2024 End: 01-10-2025 Azithromycin (Zithromax Z-Ken) 250 mg tablet Discontinued 0 PO .COMPLEX 6 0 October 25, 2024 11:44am January 10, 2025 9:44am For 250 mg dose pack: take 500 mg today (day 1), then 250 mg for 4 days (days 2-5) PO Start: 11-05-2018 End: 12-28-2018 take 2-5 tablets by mouth once daily Azithromycin (Zithromax Z-Ken) 250 mg tablet Discontinued 0 PO .COMPLEX 6 0 November 05, 2018 12:00am December 28, 2018 9:38am Acute sinusitis, unspecified sinus take 500 mg today (day 1), then 250 mg for 4 days (days 2-5) benzonatate 100 mg oral capsule (20 sources) Non-narcotic Antitussive Start: 05-11-2023 End: 05-25-2023 take 1 capsule by mouth three times daily Benzonatate 100 mg capsule Discontinued 100 mg PO THREE TIMES A DAY 30 1 May 11, 2023 12:00am May 25, 2023 3:18pm Start: 11-05-2018 End: 12-28-2018 take 1 capsule by mouth three times daily as needed for cough Benzonatate (Tessalon Perles) 100 mg capsule Discontinued 100 mg PO THREE TIMES A DAY as needed for cough 14 0 November 05, 2018 12:00am December 28, 2018 9:38am betamethasone 0.5 mg/ml / clotrimazole 10 mg/ml topical cream (15 sources) Azole Antifungal, Corticosteroid Start: 03-30-2022 End: 04-13-2022 Clotrimazole-Betamethasone 1-0.05 % cream Discontinued 1 NMA TOPICAL TWICE A DAY 45 14 0 March 30, 2022 12:00am April 12, 2022 12:00am April 13, 2022 12:04am Start: 03-30-2022 End: 04-13-2022 Clotrimazole-Betamethasone D iscontinued 1 APPLIC TOPICAL TWICE A DAY 45 14 March 29, 2022 11:00pm April 12, 2022 11:04pm budesonide 3 mg delayed release oral capsule (2 sources) Corticosteroid Start: 11-29-2024 End: 01-24-2025 take 3 capsules by mouth once daily in the morning Budesonide 3 mg capsule,delayed,extend.release Discontinued 9 mg PO EVERY MORNING 168 56 0 November 29, 2024 12:00am January 23, 2025 12:00am January 24, 2025 12:07am cephalexin 250 mg oral capsule (20 sources) Cephalosporin Antibacterial Start: 05-25-2023 End: 05-25-2023 take 1 capsule by mouth at bedtime Cephalexin 250 mg capsule Discontinued 250 mg PO AT BEDTIME 60 0 May 25, 2023 12:00am May 25, 2023 3:18pm Start: 02-10-2023 End: 02-20-2023 take 1 capsule by mouth every twelve hours Cephalexin 500 mg capsule Discontinued 500 mg PO Q12H 20 10 February 10, 2023 12:00am February 19, 2023 12:00am February 20, 2023 12:10am Start: 03-30-2022 End: 08-25-2022 take 1 capsule by mouth three times daily Cephalexin 500 mg capsule Discontinued 500 mg PO THREE TIMES A DAY 21 0 March 30, 2022 12:00am August 25, 2022 11:55am Start: 10-24-2021 End: 12-31-2021 take 1 capsule by mouth twice daily Cephalexin 500 mg capsule Discontinued 500 mg PO TWICE A DAY 10 0 October 24, 2021 1:00am December 31, 2021 2:01pm chlorhexidine gluconate 40 mg/ml medicated liquid soap (6 sources) Start: 08-24-2024 End: 08-31-2024 Chlorhexidine Gluconate (Hibiclens) 4 % liquid Discontinued 1 NMA TOPICAL DAILY 236 7 0 August 24, 2024 1:00am August 30, 2024 1:00am August 31, 2024 1:12am shower with hibiclens once daily ciprofloxacin 250 mg oral tablet (20 sources) Quinolone Antimicrobial Start: 09-22-2022 End: 05-06-2023 take 1 tablet by mouth twice daily Ciprofloxacin Hcl 250 mg tablet Discontinued 250 mg PO TWICE A DAY 14 September 22, 2022 12:37pm May 06, 2023 2:10pm 24 hr dilTIAZem hydrochloride 120 mg extended release oral capsule (13 sources) Calcium Channel Radha Start: 06-07-2023 End: 07-01-2023 take 1 capsule by mouth once daily, then take 1 capsule by mouth every twenty-four hours Diltiazem Hcl (Cardizem Cd) 120 mg capsule,extended release 24hr Discontinued 120 mg PO DAILY June 07, 2023 12:00am July 01, 2023 3:56pm BP fluticasone propionate 0.05 mg/actuat metered dose nasal spray (20 sources) Corticosteroid Start: 09-02-2021 End: 07-01-2023 take 50 ug nasal route once daily as needed Fluticasone Propionate (Flonase Allergy Relief) 50 mcg/actuation spray,suspension Discontinued 2 NMA INTRANASAL DAILY as needed for nasal congestion June 07, 2023 10:48am July 01, 2023 3:56pm administer into each nostril Start: 09-02-2021 End: 07-01-2023 take 1 spray(s) nasal route once daily Fluticasone Propionate (Flonase Allergy Relief) 50 mcg/actuation spray,suspension Discontinued 2 SPRAY INTRANASAL DAILY June 07, 2023 9:48am July 01, 2023 2:56pm administer into each nostril hydroCHLOROthiazide 12.5 mg oral tablet (20 sources) Thiazide Diuretic Start: 12-23-2020 End: 07-01-2023 take 1 tablet by mouth once daily Hydrochlorothiazide 12.5 mg tablet Discontinued 12.5 mg PO DAILY 90 2 November 24, 2022 9:37am July 01, 2023 3:56pm BP Take 1 tablet by mouth daily Start: 12-12-2019 End: 12-23-2020 Hydrochlorothiazide 25 mg ta blet Discontinued 12.5 mg PO DAILY 90 3 December 12, 2019 4:04pm December 23, 2020 3:34pm Start: 12-12-2019 End: 12-23-2020 take 12.5 mg by mouth once daily Hydrochlorothiazide Discontinued 12.5 MG PO DAILY 90 December 12, 2019 3:04pm December 23, 2020 2:34pm Start: 11-01-2018 End: 12-12-2019 take 1 tablet by mouth once daily Hydrochlorothiazide 25 mg tablet Discontinued 25 mg PO DAILY 90 3 June 23, 2019 6:09pm December 12, 2019 4:08pm hydroCHLOROthiazide 25 mg / valsartan 320 mg oral tablet (16 sources) Thiazide Diuretic, Angiotensin 2 Receptor Radha Start: 11-24-2016 End: 11-01-2018 Valsartan-Hydrochlorothiazid e 1 EACH tablet Discontinued November 24, 2016 12:00am November 01, 2018 1:31pm Start: 11-24-2016 End: 11-01-2018 Valsartan-Hydrochlorothiazid e Discontinued November 23, 2016 11:00pm November 01, 2018 12:31pm ipratropium bromide 0.2 mg/ml inhalation solution (12 sources) Anticholinergic Start: 06-08-2023 End: 07-01-2023 take 0.5 mg by inhalation every four hours Ipratropium [place] 0.02 % Solution Discontinued 0.5 mg INHALATION EVERY 4 HOURS WHILE AWAKE 0 June 08, 2023 12:00am July 01, 2023 3:56pm Start: 06-08-2023 End: 07-01-2023 take 0.5 mg by inhalation every four hours Ipratropium [place] Discontinued 0.5 MG INHALATION EVERY 4 HOURS WHILE AWAKE 0 June 07, 2023 11:00pm July 01, 2023 2:56pm levoFLOXacin 750 mg oral tablet (20 sources) Quinolone Antimicrobial Start: 05-26-2023 End: 06-07-2023 Levofloxacin 750 mg tablet Discontinued 750 mg PO EVERY OTHER DAY 2 4 May 26, 2023 12:00am June 07, 2023 10:48am First dose 05/27, second dose 05/29 Start: 05-25-2023 End: 05-25-2023 take 1 tablet by mouth once daily Levofloxacin 500 mg tablet Discontinued 500 mg PO DAILY 10 May 25, 2023 12:00am May 25, 2023 3:18pm meloxicam 7.5 mg oral tablet (6 sources) Nonsteroidal Anti-inflammatory Drug Start: 06-01-2024 End: 08-28-2024 take 1 tablet by mouth once daily as needed for pain Meloxicam 7.5 mg tablet Discontinued 7.5 mg PO DAILY as needed for pain 5 June 01, 2024 8:58pm August 28, 2024 10:50am 24 hr mirabegron 50 mg extended release oral tablet (16 sources) beta3-Adrenergic Agonist Start: 07-04-2020 End: 01-08-2021 take 1 tablet by mouth once daily Mirabegron (Myrbetriq) 50 mg tablet extended release 24 hr Discontinued 50 mg PO DAILY 30 3 July 04, 2020 1:00am January 08, 2021 10:29am Mupirocin (6 sources) RNA Synthetase Inhibitor Antibacterial Start: 08-24-2024 End: 08-31-2024 Mupirocin 2 % ointment Discontinued 1 NMA TOPICAL TWICE A DAY 15 7 0 August 24, 2024 1:00am August 30, 2024 1:00am August 31, 2024 1:12am apply to bilateral nares with a q-tip twice daily. Start: 08-24-2024 End: 08-31-2024 Mupirocin 2 % ointment Disco ntinued 1 NMA TOPICAL TWICE A DAY 15 7 August 24, 2024 1:00am August 30, 2024 1:00am August 31, 2024 1:12am apply to bilateral nares with a q-tip twice daily. nystatin [id number] unt/ml oral suspension (2 sources) Polyene Antifungal Start: 12-19-2024 End: 01-02-2025 take 1 mL by mouth three times daily Nystatin 100,000 unit/mL suspension Discontinued 4 mL PO THREE TIMES A DAY 168 14 0 December 19, 2024 12:00am January 01, 2025 12:00am January 02, 2025 12:08am swish and swallow oseltamivir 75 mg oral capsule (6 sources) Neuraminidase Inhibitor Start: 10-11-2024 End: 10-16-2024 take 1 capsule by mouth twice daily Oseltamivir (Tamiflu) 75 mg capsule Discontinued 75 mg PO TWICE A DAY 10 5 0 October 11, 2024 1:00am October 15, 2024 1:00am October 16, 2024 1:13am oxyCODONE hydrochloride 5 mg oral tablet (6 sources) Opioid Agonist Start: 08-28-2024 End: 09-06-2024 take 1 tablet by mouth every six hours as needed for pain Oxycodone 5 mg tablet Discontinued 5 mg PO EVERY 6 HOURS as needed for pain 10 3 0 August 28, 2024 September 06, 2024 2:56pm Spigelian hernia Ventral hernia without obstruction or gangrene pantoprazole 40 mg delayed release oral tablet (20 sources) Proton Pump Inhibitor Start: 06-08-2023 End: 02-26-2025 take 1 tablet by mouth once daily Pantoprazole 40 mg tablet,delayed release (DR/EC) Discontinued 40 mg PO DAILY 90 1 April 11, 2024 8:28am October 11, 2024 12:50pm phenazopyridine hydrochloride 100 mg oral tablet (16 sources) Start: 10-24-2021 End: 12-31-2021 take 1 tablet by mouth three times daily as needed for pain Phenazopyridine 100 mg tablet Discontinued 100 mg PO THREE TIMES A DAY as needed for pain 6 0 October 24, 2021 1:00am December 31, 2021 2:02pm potassium chloride 20 meq extended release oral tablet (20 sources) Start: 10-16-2019 potassium chloride 20 mEq oral tablet, extended release Dose : 20 mEq = 1 tab(s), Oral, qDay, # 30 tab(s), 0 Refill(s) Start Date: 10/16/19 Status: Ordered Start: 01-03-2019 End: 07-01-2023 take 1 tablet by mouth once daily Potassium Chloride 20 mEq tablet extended release Discontinued 20 meq PO DAILY 90 3 January 14, 2023 11:19am July 01, 2023 3:56pm SUPPLEMENT Start: 12-29-2018 End: 01-08-2021 take 20 mEq by mouth once daily Potassium Chloride 20 mEq/15 mL liquid Discontinued 20 meq PO DAILY 750 December 29, 2018 12:00am January 08, 2021 10:28am potassium gluconate 2.5 meq oral tablet (16 sources) Start: 11-24-2016 End: 01-08-2021 Potassium 99 MG tablet Discontinued DAILY November 24, 2016 12:00am January 08, 2021 10:28am pravastatin sodium 40 mg oral tablet (20 sources) HMG-CoA Reductase Inhibitor Start: 12-12-2019 End: 08-17-2024 take 1 tablet by mouth once daily Pravastatin 40 mg tablet Discontinued 40 mg PO DAILY 90 3 January 14, 2023 11:19am September 29, 2023 4:37pm CHOLESTROL Start: 11-01-2018 End: 12-12-2019 take 1 tablet by mouth once daily Pravastatin 80 mg tablet Discontinued 80 mg PO DAILY 60 0 October 26, 2019 11:00am December 12, 2019 4:08pm Start: 11-24-2016 End: 11-01-2018 take 2 tablets by mouth once daily Pravastatin 40 MG tablet Discontinued 80 mg PO DAILY November 24, 2016 12:00am November 01, 2018 1:32pm Start: 11-24-2016 End: 11-01-2018 take 80 mg by mouth once daily Pravastatin Discontinue d 80 MG PO DAILY November 23, 2016 11:00pm November 01, 2018 12:32pm take 1 tablet by simin th once daily pravastatin (Pravachol) 20 mg tablet Take 1 tablet (20 mg) by mouth once daily. 0 Active spironolactone 25 mg oral tablet (20 sources) Aldosterone Antagonist Start: 07-01-2023 End: 09-29-2023 take 1 mg by mouth once daily Spironolactone Discontinued MG PO DAILY July 01, 2023 12:00am September 29, 2023 3:37pm Start: 07-01-2023 take 1 mg by mouth once daily Spironolactone Active MG PO DAILY July 01, 2023 12:00am Start: 06-23-2023 End: 01-09-2025 take 1 tablet by mouth once daily Spironolactone 25 mg tablet Discontinued 25 mg PO DAILY 90 0 October 10, 2024 9:30am January 09, 2025 11:39am telmisartan 80 mg oral tablet (20 sources) Angiotensin 2 Receptor Radha Start: 11-01-2018 End: 07-01-2023 take 1 tablet by mouth once daily Telmisartan 80 mg tablet Discontinued 80 mg PO DAILY 90 3 January 14, 2023 11:19am July 01, 2023 3:56pm OK valsartan 160 mg oral tablet (20 sources) Angiotensin 2 Receptor Radha Start: 07-01-2023 End: 09-29-2023 take 1 mg by mouth once daily Valsartan Discontinued MG PO .qd July 01, 2023 12:00am September 29, 2023 3:37pm Start: 07-01-2023 take 1 mg by mouth once daily Valsartan Active MG PO .qd July 01, 2023 12:00am Start: 06-24-2023 End: 10-11-2024 take 1 tablet by mouth once daily Valsartan 160 mg tablet Discontinued 160 mg PO DAILY August 17, 2024 1:00am October 11, 2024 12:50pm warfarin sodium 3 mg oral tablet (20 sources) Vitamin K Antagonist Start: 07-21-2023 End: 09-29-2023 take 1 mg by mouth once daily Warfarin Discontinued MG PO .qd July 21, 2023 3:58pm September 29, 2023 3:35pm EVERY OTHER DAY; ALTERNATING WITH THE 2 MG DOSE Start: 07-21-2023 End: 09-29-2023 take 1 tablet by mouth every other day Warfarin 2 mg tablet Discontinued 2 mg PO ONCE July 21, 2023 4:58pm September 29, 2023 4:35pm EVERY OTHER DAY Start: 07-02-2023 End: 07-21-2023 take 1 tablet by mouth once Warfarin 2 mg tablet Disco ntinued 2 mg PO ONCE 30 July 02, 2023 5:31pm July 21, 2023 4:59pm Start: 07-01-2023 End: 07-21-2023 take 1 mg by mouth once daily Warfarin Discontinued MG PO .qd July 01, 2023 12:00am July 21, 2023 3:59pm Start: 06-23-2023 End: 10-26-2023 take 1 mg by mouth once daily Warfarin 3 mg tablet Dis continued mg PO .qd July 21, 2023 4:58pm September 29, 2023 4:35pm EVERY OTHER DAY; ALTERNATING WITH THE 2 MG DOSE Problems Active Problems Problem Classification Problem Date Documented Da te Episodic/Chronic Abdominal pain (5 sources) Abdominal pain Episodic Acute and unspecified renal failure (10 sources) Prerenal azotemia; Translations: [Unspecified kidney failure] 07-17-2023 Chronic Allergic reactions (20 sources) Eruption due to drug; Translations: [Generalized skin eruption due to drugs and medicaments taken internally] Onset: 3 05-13-2023 Episodic Cardiac dysrhythmias (20 sources) Atrial fibrillation with rapid ventricular response; Translations: [Unspecified atrial fibrillation] Onset: 3 05-25-2023 Chronic Chronic ulcer of skin (20 sources) Chronic ulcer of skin of calf; Translations: [Non-pressure chronic ulcer of left calf limited to breakdown of skin] 09-21-2017 Chronic Coagulation and hemorrhagic disorders (10 sources) Qualitative platelet disorder; Translations: [Qualitative platelet defects] 07-17-2023 Chronic Deficiency and other anemia (12 sources) Anemia; Translations: [Anemia, unspecified] 06-07-2023 Episodic Deficiency and other anemia (11 sources) Anemia, unspecified; Translations: [Anemia, unspecified] 06-08-2023 Episodic Diabetes mellitus without complication (6 sources) Other abnormal glucose; Translations: [Other abnormal glucose] 06-07-2023 Episodic Disorders of lipid metabolism (20 sources) Hyperlipidemia; Translations: [Hyperlipidemia, unspecified] Onset: 3 Chronic Comment on above: ON MED Essential hypertension (20 sources) Hypertensive disorder; Translations: [Essential (primary) hypertension] Onset: 3 Chronic Comment on above: Blood pressure is we ll controlled. Fluid and electrolyte disorders (20 sources) Acute hyponatremia; Translations: [Hypo-osmolality and hyponatremia] 06-07-2023 Episodic Gastroduodenal ulcer (except hemorrhage) (16 sources) H/O: gastric ulcer; Translations: [Personal history of peptic ulcer disease] 11-01-2018 Episodic Genitourinary symptoms and ill-defined conditions (17 sources) Urge incontinence of urine; Translations: [Urge incontinence] Chronic Headache; including migraine (16 sources) Frequent headache; Translations: [Frequent headaches] 11-01-2018 Episodic Comment on above: SINUS Heart valve disorders (10 sources) Aortic valve sclerosis; 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] Onset: 3 10-04-2019 Chronic Hypertension with complications and secondary hypertension (2 sources) Other secondary hypertension; Translations: [Other secondary hypertension] Onset: 3 Chronic Noninfectious gastroenteritis (3 sources) Non-specific colitis; Translations: [Noninfective gastroenteritis and colitis, unspecified] 11-17-2024 Episodic Nonspecific chest pain (10 sources) Chest discomfort; Translations: [Other chest pain] 07-17-2023 Episodic Osteoarthritis (17 sources) Arthritis; Translations: [Unspecified osteoarthritis, unspecified site] Onset: 4 11-01-2018 Chronic Other aftercare (10 sources) Encounter for follow-up examination after completed treatment for conditions other than malignant neoplasm; Translations: [Other follow-up examination] 06-07-2023 Episodic Other aftercare (2 sources) terminal gauger (current) use of anticoagulants; Translations: [terminal gauger (current) use of anticoagulants] Onset: Episodic Other aftercare (15 sources) History of hernia repair; Translations: [Encounter for follow-up examination after completed treatment for conditions other than malignant neoplasm] 10-06-2024 Episodic Comment on above: Patient appears to h keon recovered well following spigelian hernia repair. I am a little impressed that she continues to have the level of tenderness that she does in the left lower quadrant with exam. However, it is her report that this is improved over her preoperative status. Secondly, her exam is reassuring and I feel no fascial defects that would suggest recurrence. Finally, patient's hernia was also in the exact vicinity of a prior rectus sheath hematoma that required coil embolization several years ago and is difficult to determine if any of that past trauma is playing into her current picture. As far as I can determine there are no issues that are new since our operation. Other circulatory disease (17 sources) H/O: atrial fibrillation; Translations: [Personal history of other diseases of the circulatory system] 06-07-2023 Episodic Other diseases of veins and lymphatics (16 sources) Peripheral venous insufficiency; Translations: [Venous insufficiency (chronic) (peripheral)] 09-21-2017 Episodic Comment on above: I87.2 Other gastrointestinal disorders (20 sources) Diarrhea; Translations: [Diarrhea, unspecified] Episodic Comment on above: Patient reports impr ovement in the consistency of her stools but states they still are at least 3 in number. Further, when a cursory investigation was made into the cause of her diarrhea patient tested positive for stool lactoferrin. Given the association with inflammatory bowel disease patient was queried about any family history. Immediately, patient's daughter offered that at least she and her sister had formal diagnoses of Crohn's disease but there likely was additional GI disease in their brothers. With this information I believe patient is at more than average risk for inflammatory bowel disease. I had initially been inclined to pursue colonoscopy for her myself given the duration since her last colonoscopy, but with this risk will instead make referral to gastroenterology. With patient's family already established with gastroenterology they are well pleased at this decision. Other gastrointestinal disorders (7 sources) Dysphagia; Translations: [Dysphagia, unspecified] 11-17-2024 Episodic Comment on above: CANNOT SWALLOW LARG E PILL DRY MOUTH PER PATIENT Other gastrointestinal disorders (4 sources) Constipation; Translations: [Constipation, unspecified] 12-19-2024 Episodic Other injuries and conditions due to external causes (4 sources) Other injury of unspecified body region, initial encounter; Translations: [Contusion of unspecified site] 07-01-2023 Episodic Other liver diseases (6 sources) Elevated liver enzymes level; Translations: [Abnormal levels of other serum enzymes] 06-09-2024 Episodic Other lower respiratory disease (19 sources) Cough; Translations: [Cough] 11-05-2018 Episodic Other lower respiratory disease (16 sources) H/O: pneumonia; Translations: [Personal history of pneumonia (recurrent)] 11-01-2018 Episodic Comment on above: 06/2024 Other lower respiratory disease (14 sources) Dyspnea; Translations: [Shortness of breath] 05-25-2023 Episodic Other lower respiratory disease (14 sources) Hypoxemia; Translations: [Hypoxemia] 05-25-2023 Episodic Other lower respiratory disease (7 sources) Shortness of breath; Translations: [Shortness of breath] 05-25-2023 Episodic Other lower respiratory disease (7 sources) Hypoxemia; Translations: [Hypoxemia] 05-26-2023 Episodic Other lower respiratory disease (17 sources) Dyspnea on exertion; Translations: [Other forms of dyspnea] 06-07-2023 Episodic Other lower respiratory disease (6 sources) Solitary pulmonary nodule; Translations: [Solitary pulmonary nodule] 06-07-2023 Episodic Other non-traumatic joint disorders (6 sources) Hip pain; Translations: [Pain in unspecified hip] 06-01-2024 Episodic Other upper respiratory infections (20 sources) Chronic frontal sinusitis; Translations: [Chronic frontal sinusitis] 11-05-2018 Chronic Pleurisy; pneumothorax; pulmonary collapse (20 sources) Bilateral pleural effusion; Translations: [Pleural effusion, not elsewhere classified] 06-07-2023 Episodic Pneumonia (except that caused by tuberculosis or sexually transmitted disease) (20 sources) Atypical pneumonia; Translations: [Pneumonia, unspecified organism] 05-25-2023 Episodic Residual codes; unclassified (16 sources) Edema of left lower limb; Translations: [Localized edema] 09-21-2017 Episodic Spondylosis; intervertebral disc disorders; other back problems (3 sources) Disorder of lumbar disc; 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, thoracolumbar and lumbosacral intervertebral disc disorder] Onset: 3 10-04-2019 Chronic Spondylosis; intervertebral disc disorders; other back problems (20 sources) Chronic back pain ; Translations: [Dorsalgia, unspecified] 11-01-2018 Episodic Unclassified (1 source) Other pericardial effusion (noninflammatory) ([facility]); Translations: [Other pericardial effusion (noninflammatory) ([facility])] Onset: 3 Unclassified (5 sources) R10.9 - Unspecified abdominal pain,R19.7 - Diarrhea, unspecified Unclassified (1 source) Cough, unspecified; Translations: [Cough, unspecified] Onset: 5 Urinary tract infections (20 sources) Bacterial urinary infection; Translations: [Urinary tract infection, site not specified] 09-22-2022 Episodic Past or Other Problems Problem Classification Problem Date Documented Da te Episodic/Chronic Abdominal hernia (20 sources) Disorder of abdominal wall; Translations: [Ventral hernia without obstruction or gangrene] Onset: 4 08-30-2024 Episodic Comment on above: Patient 83-year-old female who presents for newly diagnosed left spigelian hernia. This finding appears to been made incidentally during workup for patient's elevated liver function testing at recent ER visit. Patient does describe some lower abdominal pain and intermittent constipation. Further, CT imaging showed evidence of colon within the hernia sac at the time of her ER visit. On exam patient has some mild tenderness over the left lower quadrant and I am able to visualize/palpate the fascial defect. I had an extensive conversation with patient and her granddaughter regarding her options and recommended she consider surgical repair to minimize her risk for small bowel obstruction or strangulation within the hernia. I shared there was no way for me to verify that this was a new finding, nor guarantee she would have no future problems. I discussed open versus transabdominal/laparoscopic repair options. Given patient's advanced age and significant cardiovascular history I recommended a more conservative approach via an open repair with onlay mesh application. I did discuss possible need for laparoscopy to localize the hernia if it became an issue intraoperatively. I do not believe her history of endovascular angioembolization will complicate this repair and may in fact decrease the risk since the inferior epigastric artery on the left is already clotted. Patient seems somewhat inclined to pursue an operative approach, but still undecided. Therefore, I have suggested she take more time with this decision and plan to approach this procedure completely electively. I did give red flag warning signs that should prompt her return to the nearest emergency department. Lastly, I suggested we reach out to cardiology to obtain preoperative clearance. Patient and her granddaughter had the opportunity to ask questions and these were answered to their satisfaction Chronic obstructive pulmonary disease and bronchiectasis (17 sources) Bronchitis; Translations: [Bronchitis, not specified as acute or chronic] Onset: 5 10-25-2024 Episodic Influenza (1 source) Influenza due to other identified influenza virus with other respiratory manifestations; Translations: [Influenza due to other identified influenza virus with other respiratory manifestations] Onset: 5 Episodic Other circulatory disease (13 sources) Personal history of other diseases of the circulatory system; Translations: [Personal history of other diseases of circulatory system] Onset: 5 06-08-2023 Episodic Other gastrointestinal disorders (7 sources) Diarrhea, unspecified; Translations: [Diarrhea] Onset: 5 06-07-2023 Episodic Other injuries and conditions due to external causes (1 source) Unspecified injury of unspecified lower leg, initial encounter; Translations: [Unspecified injury of unspecified lower leg, initial encounter] Onset: 4 Episodic Other lower respiratory disease (11 sources) Other forms of dyspnea; Translations: [Other respiratory abnormalities] Onset: 5 06-08-2023 Episodic Other lower respiratory disease (1 source) Cough; Translations: [Cough] Onset: 4 Episodic Other non-traumatic joint disorders (1 source) Pain in left hip; Translations: [Pain in left hip] Onset: 4 Episodic Other non-traumatic joint disorders (1 source) Pain in unspecified hip; Translations: [Pain in unspecified hip] Onset: 4 Episodic Other screening for suspected conditions (not mental disorders or infectious disease) (12 sources) Other specified abnormal findings of blood chemistry; Translations: [Elevated liver function tests] Onset: 5 06-15-2024 Episodic Other upper respiratory infections (19 sources) Acute frontal sinusitis; Translations: [Acute frontal sinusitis, unspecified] Onset: 5 11-05-2018 Episodic Risa-; endo-; and myocarditis; cardiomyopathy (except that caused by tuberculosis or sexually transmitted disease) (9 sources) Pericardial effusion; Translations: [Pericardial effusion] Onset: 3 06-08-2023 Episodic Syncope (9 sources) Syncope and collapse; Translations: [Syncope and collapse] Onset: 3 06-07-2023 Episodic Unclassified (15 sources) NECK/BACK PAIN 03-07-2022 Unclassified (1 source) Other pericardial effusion (noninflammatory) ([facility]); Translations: [Other pericardial effusion (noninflammatory) ([facility])] Onset: 3 Results Test Name Value Interpretation Reference Range Facility MR/Daniel 04-26-2025 MR/[facility] Medical Records Department [address] [place] [address] PAT - Anesthesia 04/26/251945 MR#: [id number] Acct: [id number] Name: KRISHAN COOKIA Ofelia Rep #: [id number] : 1940 84 From: Atul Malloy MD PCP: Dr. Coy Nath, DO Status:PRE [facility] Y Race: C Location: EN Pre-Assessment Diagnosis/Proposed Procedure Planned Operative Procedure(s): EGD Anesthesia History Anesthesia History - construction rep: Anesthesia History - construction rep Hx Hospitalization Yes: 08/2024 [facility] REPAIR 04/26/25 13:59 SURGERY Any Problems With Anesthesia No 04/26/25 13:59 Cholinesterase deficiency No 04/26/25 13:59 You/Your Family Experience No 04/26/25 13:59 fever (hyperthermia) with Relationship Recent Exposure to Contagious No 08/28/24 09:51 Disease Does patient have nerve No 04/26/25 13:59 stimulator Patient instructed to have device shut off --Does patient have Pacemaker or ICD? When Was Last Pacemaker Check QUESTION #4 FULL TEXT: You/Your Family Experience fever (hyperthermia) with Anesthesia Last Oral Intake Last Oral intake: Last Oral Intake NPO since Meds taken in AM with sips of water? 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 - construction rep: PONV - construction rep Female Yes 04/26/25 13:59 HX of Motion Sickness No 04/26/25 13:59 HX of N/V After Surgery No 04/26/25 13:59 Non-Smoker Yes 04/26/25 13:59 Duration of Surgery greater No 04/26/25 13:59 than 60 minutes Number of Risk Factors 2 04/26/25 13:59 PONV Score Moderate Risk 04/26/25 13:59 Height Weight Height Weight: Anesthesia: Height Weight Height 5 ft 03/22/25 15:36 Respiratory Assessment Respiratory Assessment - construction rep: Respiratory Tract Infection Hx - construction rep Hx Respiratory Tract Infection No 04/26/25 13:59 STOP Sleep Apnea STOP Sleep Apnea - construction rep: STOP Sleep Apnea - construction rep Hx Hypertension Yes: CONTROLLED WITH MEDS 04/26/25 13:59 Hx Sleep Apnea No 04/26/25 13:59 CPAP BIPAP Do you snore loudly (louder No 04/26/25 13:59 than talking or can be heard Do you often feel tired/ No 04/26/25 13:59 fatigued/ sleepy during daytime? Has anyone observed you stop No 04/26/25 13:59 breathing during sleep? STOP Results Negative 04/26/25 13:59 QUESTION #5 FULL TEXT : Do you snore loudly (louder than talking or can be heard through closed doors)? Tobacco Use History Tobacco Use History - construction rep: Tobacco Use History - construction rep Tobacco Use Smoking Status Never smoker 04/26/25 13:59 Hx Tobacco Use No 04/26/25 13:59 Years Smoking Packs Smoked per Day Smoking Cessation Date was within the last 15 years Hx Smoking Cessation Date Hx Smoking Cessation Counseling Hematologic Medial History Hematologic Hx - construction rep: Hematologic Medical Hx - proposal coordinator Hx of Blood Transfusion Yes 04/26/25 13:59 Hx of Transfusion in last 3 No 04/26/25 13:59 Months Date of Last Transfusion (if within last 3 months) Ever experience any problems No 04/26/25 13:59 with transfusion(s)? Specify any problems Hx of Preganancy in last 3 N/A 04/26/25 13:59 Months Nurse Filling Out Transfusion NBUCHER 04/26/25 13:59 Questions: Date: 04/26/25 04/26/25 13:59 Time: 14:00 04/26/25 13:59 Patient unable to answer at this time (ie. 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 Hx Now Gestational Age (in weeks): EDC: Hx Hx Para Hx Section SAB No 04/26/25 13:59 [facility] Medical History (Updated 04/26/25 @ 14:04 by Katelyn Keyes) Loss of hearing Wears glasses Wears dentures Anxiety Ambulates with cane Bladder disease Injury of head and neck Loss of consciousness Diarrhea Difficulty swallowing History of diverticulitis Gastric reflux Shortness of breath on exertion Leg cramps History of edema History of normal Holter exam History of echocardiogram History of stress test Cardiology follow-up encounter Non-smoker Chronic pain Atrial fibrillation Shortness of breath Cardiac murmur History of hemorrhoids Frequent headaches Chronic back pain History of stomach ulcers Arthritis Hyperlipemia Hypertension History of pneumonia Home Medications ???Medication ???Instructions ???Recorded ???Last Taken ???Type aspirin 81 mg tablet,delayed 81 mg PO DAILY HEART 11/24/1604/09 History release cetirizine 10 mg tablet (Zyrtec) 10 mg PO QHS allergy symptoms 10 (more content not included)... Normal [facility] Gastroenterology Visit Repor ton 03-22-2025 Gastroenterology Visit Report [facility] Gastroenterology [address] [place] [address] OFFICE VISIT Date of Service: 03/22/25 MR#: [id number] Acct: [id number] Name: MODESTA COOK Rep #: [id number] : 1940 Provider: SWATI Rdz Age/Sex: 84/F Location[place] [facility] Status: Signed Intake Vital Signs 10/25/24 11:35 01/10/25 09:42 03/22/25 15:36 Height 5 ft 5 ft 5 ft Weight: 132 lb 6 oz BMI 25.8 Intake Visit Reasons: 3 M FU Chief Complaint: abd pain Allergies nitroglycerin Allergy (Mild, Verified 01/10/25 09:43) NEEDS FOLLOW-UP amiodarone Allergy (Verified 01/10/25 09:43) Rash chlorpheniramine (From Actifed Cold-Allergy) Adverse Reaction (Verified 01/10/25 09:43) Other phenylephrine (From Actifed Cold-Allergy) Adverse Reaction (Verified 01/10/25 09:43) Other pseudoephedrine (From Actifed Cold-Allergy) Adverse Reaction (Verified 01/10/25 09:43) Other triprolidine (From Actifed Cold-Allergy) Adverse Reaction (Verified 01/10/25 09:43) Other Have you fallen in the past year?: No Nurse's Note: OV 03/22/25 Pt here for a f/u and reports weight loss, abdominal pain, loose stools, gas, bloating, and trouble swallowing. Pt continues taking pantoprazole daily. [facility] Medical History Loss of hearing Wears glasses Wears dentures Anxiety Ambulates with cane Bladder disease Injury of head and neck Loss of consciousness Diarrhea Difficulty swallowing History of diverticulitis Gastric reflux Shortness of breath on exertion Leg cramps History of edema History of normal Holter exam History of echocardiogram History of stress test Cardiology follow-up encounter Non-smoker Chronic pain Atrial fibrillation Shortness of breath Cardiac murmur History of hemorrhoids Frequent headaches Chronic back pain History of stomach ulcers Arthritis Hyperlipemia Hypertension History of pneumonia Surgical History S/P spigelian hernia repair, follow-up exam History of cardiac catheterization Hx of colonoscopy History of esophagogastroduodenoscop y (EGD) History of tonsillectomy History of appendectomy History of hysterectomy History of back surgery History of foot surgery Family History Mother Diabetes Hypertension CVA (cerebral vascular accident) Father Myocardial infarction, Onset Age: 80 Brother Cancer Social History Smoking Status: Never smoker alcohol intake: never substance use type: does not use what type of physical activity do you participate in: walking frequency: daily HPI HPI Chief Complaint: abd pain Details: MODESTA COOK, is a 84 F who presents to the office today for f/u BGI established in November 2024 with diarrhea x3-4 months. Typically pt had constipation. SHe is having about 5 episodes of diarrhea per day take. SHe is taking Imodium and citricil with little improvement. Last colonoscopy many years ago. Stool 4.5.25; Calprotectin 408 H, O P, Giardia, c.dif wnl *start Budesonide 9 mg daily *Pt call with constipation and thrush. Recommended discontinuing Budesonide OV 5.6.25 Pt is now having constipation with a bm daily to every other day. She has to strain. She endorses throat and tongue pain with a white coating. This has been getting better since stopping the Budesonide OV 8.7.25 patient no longer having diarrhea or constipation. She has daily bowel movements. She has having some lower abdominal pain prior to having a bowel movement that dissipates after the bowel movement. Over the past few months patient has had unintentional weight loss. She has been eating less due to early satiety. Patient typically weighs around 150 pounds but over the past few months has dropped down to 2 in the 120s. She has occasional heartburn and frequent belching. She has difficulty swallowing her pills and meats. She is on pantoprazole. ROS Const Constitutional: Positive for weight change; No anorexia, fatigue, fever(s) or sleep problems Eyes Eyes: No change in vision ENT ENT: No abnormal hearing, difficulty swallowing, mouth lesions, tongue swelling or throat swelling Resp Respiratory: No cough or shortness of breath Cardio Cardiology: No chest pain at rest, chest pain with exertion, shortness of breath or dyspnea on exertion Gastro GI: Positive for abdominal pain, belching, bloating, heartburn and feeling full early; No difficulty swallowing Genitourinary-Female: No difficulty urinating or burning urination Musc Musculoskeletal: No joint pain, joint swelling, muscle weakness or decreased muscle mass Skin Skin: No hair loss in leg, yellowing of the eye, itchy eyes, (more content not included)... Normal [facility] Internal Medicine Office Vis trista 01-10-2025 Internal Medicine Office Visit [facility] [address] [place] [address] [place] [address] OFFICE VISIT Date of Service: 01/10/25 MR#: [id number] Acct: [id number] Name: MODESTA COOK Rep #: [id number] : 1940 Provider: Dr. 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 Required: No Is patient in pain?: No Allergies nitroglycerin Allergy (Mild, Verified 01/10/25 09:43) NEEDS FOLLOW-UP amiodarone Allergy (Verified 01/10/25 09:43) Rash chlorpheniramine (From Actifed Cold-Allergy) Adverse Reaction (Verified 01/10/25 09:43) Other phenylephrine (From Actifed Cold-Allergy) Adverse Reaction (Verified 01/10/25 09:43) Other pseudoephedrine (From Actifed Cold-Allergy) Adverse Reaction (Verified 01/10/25 09:43) Other triprolidine (From Actifed Cold-Allergy) Adverse Reaction (Verified 01/10/25 09:43) Other Medications ???Medication ???Instructions ???Recorded ???Confirmed ???Type aspirin 81 mg tablet,delayed 81 mg PO DAILY HEART 11/24/1612/15 History release cetirizine 10 mg tablet (Zyrtec) 10 mg PO QHS allergy symptoms 05/1701/10/25 History metoprolol succinate 25 mg 25 mg PO BID #180 tabs 04/26/24 Rx tablet,extended release 24 hr pravastatin 40 mg tablet 40 mg PO QHS CHOLESTROL 08/17/24 0 01/10/25 History pantoprazole 40 mg tablet,delayed 40 mg PO DAILY #90 tabs 10/11/24 01/10/25 Rx release valsartan 160 mg tablet 160 mg PO DAILY #90 tabs 10/11/24 01/10/25 Rx amlodipine 10 mg tablet 10 mg PO DAILY BP #90 tabs 5 01/10/25 Rx budesonide 3 mg 9 mg (3 x 3 mg) PO QAM 8 weeks 12/19/24 Rx capsule,delayed,extended release #168 ea nitrofurantoin macrocrystal 50 mg 50 mg PO QHS #90 caps 01/09/25 Rx capsule spironolactone 25 mg tablet 25 mg PO DAILY #90 tabs 01/09/25 0 01/10/25 Rx azithromycin 250 mg tablet See Rx Instructions PO .COMPLEX #6 01/10/25 01/10/25 Rx (Zithromax Z-Ken) tabs methylcellulose (with sugar) oral 1 tbsp PO BID 01/10/25 01/10/25 H istory powder (Citrucel (sucrose) oral powder) Have you fallen in the past year?: Yes (x1) PFSH Medical History Loss of hearing Wears glasses Wears dentures Anxiety Ambulates with cane Bladder disease Injury of head and neck Loss of consciousness Diarrhea Difficulty swallowing History of diverticulitis Gastric reflux Shortness of breath on exertion Leg cramps History of edema History of normal Holter exam History of echocardiogram History of stress test Cardiology follow-up encounter Non-smoker Chronic pain Atrial fibrillation Shortness of breath Cardiac murmur History of hemorrhoids Frequent headaches Chronic back pain History of stomach ulcers Arthritis Hyperlipemia Hypertension History of pneumonia Surgical History S/P spigelian hernia repair, follow-up exam History of cardiac catheterization Hx of colonoscopy History of esophagogastroduodenoscop y (EGD) History of tonsillectomy History of appendectomy History of hysterectomy History of back surgery History of foot surgery Family History Mother Diabetes Hypertension CVA (cerebral vascular accident) Father Myocardial infarction, Onset Age: 80 Brother Cancer Social History Smoking Status: Never smoker alcohol intake: never substance use type: does not use what type of physical activity do you participate in: walking frequency: daily HPI HPI Chief Complaint: congestion/drainage Details: MODESTA COOK, is a 84 F who presents to the office today for ROS Const Constitutional: Positive for headache(s); No body ache, chills, excessive sweating, fatigue, fever(s), frequent falls, snoring, weakness, sleep problems or change in appetite Eyes Eyes: No blurry vision, change in vision, eye pain or Light sensitivity ENT ENT: Positive for nasal congestion, headache(s) and other (sore throat ); No abnormal hearing, ear or mastoid pain, tinnitus, neck pain or sore throat Resp Respiratory: No cough, shortness of breath, snoring or wheezing Cardio Cardiology: No chest pain at rest, chest pain with exertion, excessive sweating, shortness of breath, dyspnea o (more content not included)... Normal [facility] Gastroenterology Visit Repor ton 12-19-2024 Gastroenterology Visit Report [facility] G[facility]enterology [address] [place] [address] OFFICE VISIT Date of Service: 12/19/24 MR#: [id number] Acct: [id number] Name: MODESTA COOK Rep #: [id number] : 1940 Provider: SWATI Rdz Age/Sex: 84/F [place] [facility] [place]: Signed Intake Vital Signs 10/25/24 11:35 Height 5 ft Intake Visit Reasons: 1 M FU Chief Complaint: constipation Is patient in pain?: No Allergies nitroglycerin Allergy (Mild, Verified 12/19/24 15:26) NEEDS FOLLOW-UP amiodarone Allergy (Verified 12/19/24 15:26) Rash chlorpheniramine (From Actifed Cold-Allergy) Adverse Reaction (Verified 12/19/24 15:26) Other phenylephrine (From Actifed Cold-Allergy) Adverse Reaction (Verified 12/19/24 15:26) Other pseudoephedrine (From Actifed Cold-Allergy) Adverse Reaction (Verified 12/19/24 15:26) Other triprolidine (From Actifed Cold-Allergy) Adverse Reaction (Verified 12/19/24 15:26) Other Medications ???Medication ???Instructions ???Recorded ???Confirmed ???Type aspirin 81 mg tablet,delayed 81 mg PO DAILY HEART 11/24/16 05/02/07 History release cetirizine 10 mg tablet (Zyrtec) 10 mg PO QHS allergy symptoms 05/1712/19/24 History metoprolol succinate 25 mg 25 mg PO BID #180 tabs 04/26/24 Rx tablet,extended release 24 hr pravastatin 40 mg tablet 40 mg PO QHS CHOLESTROL 08/17/24 0 12/19/24 History methylcellulose (with sugar) oral 1 tbsp PO QDAY 10/05/24 12/19/24 History powder (Citrucel (sucrose) oral powder) nitrofurantoin macrocrystal 50 mg 50 mg PO QHS #90 caps 10/10/24 Rx capsule spironolactone 25 mg tablet 25 mg PO DAILY #90 tabs 10/10/24 0 12/19/24 Rx pantoprazole 40 mg tablet,delayed 40 mg PO DAILY #90 tabs 10/11/24 12/19/24 Rx release valsartan 160 mg tablet 160 mg PO DAILY #90 tabs 10/11/24 12/19/24 Rx amlodipine 10 mg tablet 10 mg PO DAILY BP #90 tabs 5 12/19/24 Rx azithromycin 250 mg tablet See Rx Instructions PO .COMPLEX #6 10/25/24 12/19/24 Rx (Zithromax Z-Ken) tabs budesonide 3 mg 9 mg (3 x 3 mg) PO QAM 8 weeks 12/19/24 Rx capsule,delayed,extended release #168 ea nystatin 100,000 unit/mL oral 4 ml PO TID 2 weeks #168 mL 12/19/24 Rx suspension Have you fallen in the past year?: No Nurse's Note: burning in the back of throat, last couple days it has been getting better. Diarrhea is getting better. [facility] Medical History (Updated 12/19/24 @ 15:51 by SWATI Rdz) Loss of hearing Wears glasses Wears dentures Anxiety Ambulates with cane Bladder disease Injury of head and neck Loss of consciousness Diarrhea Difficulty swallowing History of diverticulitis Gastric reflux Shortness of breath on exertion Leg cramps History of edema History of normal Holter exam History of echocardiogram History of stress test Cardiology follow-up encounter Non-smoker Chronic pain Atrial fibrillation Shortness of breath Cardiac murmur History of hemorrhoids Frequent headaches Chronic back pain History of stomach ulcers Arthritis Hyperlipemia Hypertension History of pneumonia Surgical History S/P spigelian hernia repair, follow-up exam History of cardiac catheterization Hx of colonoscopy History of esophagogastroduodenoscop y (EGD) History of tonsillectomy History of appendectomy History of hysterectomy History of back surgery History of foot surgery Family History Mother Diabetes Hypertension CVA (cerebral vascular accident) Father Myocardial infarction, Onset Age: 80 Brother Cancer Social History Smoking Status: Never smoker alcohol intake: never substance use type: does not use what type of physical activity do you participate in: walking frequency: daily HPI HPI Chief Complaint: constipation Details: MODESTA COOK, is a 84 F who presents to the office today for f/u. BGI established in November 2024 with diarrhea x3-4 months. Typically pt had constipation. SHe is having about 5 episodes of diarrhea per day take. SHe is taking Imodium and citricil with little improvement. Last colonoscopy many years ago. Stool 4.5.25; Calprotectin 408 H, O P, Giardia, c.dif wnl *start Budesonide 9 mg daily *Pt call with constipation and thrush. Recommended discontinuing Budesonide OV 5.6.25 Pt is now having constipation with a bm daily to every other day. She has to strain. She endorses throat and tongue pain with a white coating. This has been getting better since stopping the Budesonide. ROS Const Constitutional: Positive for fatigue and headache(s) ENT ENT: Positive for headache(s) (more content not included)... Normal [facility] M7400.3302on 11-29-2024 M7400.3302 TESTING PERFORMED AT [facility]. ORIGINAL REPORT ON FILE IN LAB CONTAINS ADDITIONAL TEST SITE INFORMATION. Giardia Lamblia EIA NEGATIVE Normal [facility] Comment on above: Performed By: #### L 7000.0700, M7400.3302, M600.5000 #### [facility] [address] [place], [place], [address] Ova and Parasites 8623on OP OVA AND PARASITES EX AM, ROUTINE These results were obtained using wet preparation(s) and trichrome stained smear. This test does not include testing for Crytosporidium parvum, Cyclospora, or Microsporidia. One negative specimen does not rule out the possibility of a parasitic infection. TESTING PERFORMED AT [facility]. ORIGINAL REPORT ON FILE IN LAB CONTAINS ADDITIONAL TEST SITE INFORMATION. Ova/Parasite Exam NO OVA, CYSTS, OR PARASITES FOUND. Normal [facility] Comment on above: Performed By: #### L 7000.0700, M7400.3302, M600.5000 #### [facility] [address] [place], [place], [address] Calprotectin, Stoolon [address] 408 ug/g Abnormal 0-120 [facility] Comment on above: Result Comment: Conc entration Interpretation Follow-Up < 5 - 50 ug/g Normal None >50 -120 ug/g Borderline Re-evaluate in 4-6 weeks >120 ug/g Abnormal Repeat as clinically indicated Performed at: [address] [id number] Manager Personal: Juan Manuel Henry MD, Phone: [phone] Performed By: #### L 7000.0700, M7400.3302, M600.5000 #### [facility] [address] [place], [address] Calprotectin stoolOrdered By : Bárbara Logan on 11-22-2024 Calprotectin stool 408 ug/g High 0-[address] [facility] Comment on above: Concentration Interp retation Follow-Up< 5 - 50 ug/g Normal None>50 -120 ug/g Borderline Re-evaluate in 4-6 weeks >120 ug/g Abnormal Repeat as clinically indicatedPerformed at: [facility] [id number] Director: Juan aMnuel Henry MD, Phone: [phone] Stool Calprotectin 408 ug/g High 0-[address] [facility] Comment on above: Concentration Interp retation Follow-Up< 5 - 50 ug/g Normal None>50 -120 ug/g Borderline Re-evaluate in 4-6 weeks >120 ug/g Abnormal Repeat as clinically indicatedPerformed at: [facility] [address] [id number] Director: Juan Manuel Henry MD, Phone: [phone] C. difficile DNA ROBY+probe Q l (Unsp spec)Ordered By: Bárbara Logan on 11-18-2024 Clostridioides difficile (PCR) [facility] CDIFF (PCR)on 11-18-2024 CDIFF Pending 027 027 [id number] Presumptive Negative *for epidemiolologic???use C. Diff PCR Negative- No toxigenic C. Diff Detected Normal [facility] Comment on above: Performed By: #### M 100.6796 #### [facility] [address] [place], [address] Clostridium difficile detect ion by polymerase chain reactionOrdered By: Bárbara Logan on 11-18-2024 C. difficile DNA ROBY+probe Ql (Unsp spec) [facility] Gastroenterology Visit Repor ton 11-17-2024 Gastroenterology Visit Report [facility] Gastroenterology [address] [place] [address] OFFICE VISIT Date of Service: 11/17/24 MR#: [id number] Acct: [id number] Name: MODESTA COOK Rep #: [id number] : 1940 Provider: SWATI Rdz Age/Sex: 84/F [place] [facility] [place] Status: Signed Intake Vital Signs 10/25/24 11:35 Height 5 ft Weight: 135 lb 6 oz BMI 26.4 BP 112/48 L Blood Pressure Location Lt brachial Position Sitting Respiration 16 Pulse 16 L Pulse Source Monitor Temp 96.3 F L Temp Source Temporal Pulse Oximetry (%) 96 Oxygen Delivery Method room air Intake Visit Reasons: Colitis Chief Complaint: diarrhea Allergies nitroglycerin Allergy (Mild, Verified 10/25/24 11:33) NEEDS FOLLOW-UP amiodarone Allergy (Verified 10/25/24 11:33) Rash chlorpheniramine (From Actifed Cold-Allergy) Adverse Reaction (Verified 10/25/24 11:33) Other phenylephrine (From Actifed Cold-Allergy) Adverse Reaction (Verified 10/25/24 11:33) Other pseudoephedrine (From Actifed Cold-Allergy) Adverse Reaction (Verified 10/25/24 11:33) Other triprolidine (From Actifed Cold-Allergy) Adverse Reaction (Verified 10/25/24 11:33) Other Have you fallen in the past year?: No Nurse's Note: OV 11.17.24 Pt here to establish care with I and reports [facility] Medical History (Updated 11/17/24 @ 16:15 by SWATI Rdz) Loss of hearing Wears glasses Wears dentures Anxiety Ambulates with cane Bladder disease Injury of head and neck Loss of consciousness Diarrhea Difficulty swallowing History of diverticulitis Gastric reflux Shortness of breath on exertion Leg cramps History of edema History of normal Holter exam History of echocardiogram History of stress test Cardiology follow-up encounter Non-smoker Chronic pain Atrial fibrillation Shortness of breath Cardiac murmur History of hemorrhoids Frequent headaches Chronic back pain History of stomach ulcers Arthritis Hyperlipemia Hypertension History of pneumonia Surgical History S/P spigelian hernia repair, follow-up exam History of cardiac catheterization Hx of colonoscopy History of esophagogastroduodenoscop y (EGD) History of tonsillectomy History of appendectomy History of hysterectomy History of back surgery History of foot surgery Family History Mother Diabetes Hypertension CVA (cerebral vascular accident) Father Myocardial infarction, Onset Age: 80 Brother Cancer Social History Smoking Status: Never smoker alcohol intake: never substance use type: does not use what type of physical activity do you participate in: walking frequency: daily HPI HPI Chief Complaint: diarrhea Details: MODESTA COOK, is a 84 F who presents to the office today for establishment with [facility]. Pt with diarrhea for 3-4 months. This is new to her as she typically struggles with constipation. In sep 2023 she underwent surgical intervention for a hernia. She was hoping this would relieve some of her right lower quadrant pain however it did not. She is having about 5 episodes of diarrhea per day. She has taken Imodium and citricil with little improvement in her symptoms. She had stool testing a few months back that showed a positive lactoferrin but no infection. She endorses a 20 lbs weight loss since this started. She is also having some issues with swallowing her pills and meats but this is tolerable to her. Her last colonoscopy was many years ago and she does not want to have another. Exam Const General: cooperative and comfortable Nutritional Appearance: average body habitus and well nourished [facility] Head: normal to inspection Ears: hearing grossly normal bilaterally Nose: external nose normal Face and sinus: normal facial exam Mouth: oral mucosae normal Throat: posterior oropharynx normal Eyes General: appearance normal, both eyes and all related structures Neck Neck: normal visual inspection Chest Chest palpation inspection: normal inspection of the chest and normal palpation of entire chest wall Resp Effort Inspection: normal respiratory effort Auscultation: Bilateral: Clear to Auscultation Cardio Palpation: normal PMI Rate: regular rate Rhythm: regular rhythm GI Inspection: normal to inspection Auscultation: normal bowel sounds Percussion: normal to percussion Palpation: no hepatosplenomegaly Skin General: no rashes or lesions noted Neuro General: patient alert Extrem General: normal to inspection Psych Affect: normal affect Assessment and Plan Assessment and Plan (1) Diarrhea: Status: Acute Plan: This is an 84 yo female pt here today for evaluation of (more content not included)... Normal [facility] Absolute lymphocyte countOrd ered By: Coy Nath on 10-25-2024 Lymphocytes Auto (Unsp spec) [#/Vol] 2.72 10*3/uL 0.83-4.51 [facility] Absolute neutrophil countOrd ered By: Coy Nath on 10-25-2024 Neutrophils (Bld) [#/Vol] 4.0 10*3/uL 2.0-7.7 [facility] Anion gap in Serum or Plasma Ordered By: Coy Nath on 10-25-2024 Anion gap [Moles/Vol] 10 mmol/L 5- [facility] Automated lymphocyte count a s percentage of total leukocytesOrdered By: Coy Nath on 10-25-2024 Lymphocytes/100 WBC Auto (Unsp spec) 34.4 % 19- [facility] BUN/creatinine ratioOrdered By: Coy Nath on 10-25-2024 Urea nitrogen/Creatinine [Mass ratio] 35.9 mg/mg High 10-20 [facility] Basophil percentageOrdered B y: Coyabelino Nath on 10-25-2024 Basophils/100 WBC (Bld) 0.6 % 0-1 [facility] Bilirubin, totalOrdered By: Coy Nath on 10-25-2024 Bilirubin [Mass/Vol] 0.48 mg/dL 0.00-1.30 [facility] CBC W/Diff, Automatedon 10-14 Absolute Lymph 2.72 X10 3/uL Normal 0.83-4.51 [facility] Comment on above: Performed By: #### L 100.0100, L500.4050 #### [facility] [address] [place], [address] Absolute Neut 4.0 X10 3/uL Normal 2.0-7.7 [facility] Comment on above: Performed By: #### L 100.0100, L500.4050 #### [facility] [address] [place], [address] Basophils/100 WBC (Bld) 0.6 % Normal 0-1 [facility] Comment on above: Performed By: #### L 100.0100, L500.4050 #### [facility] [address] [place], [address] Eosinophils/100 WBC (Bld) 1.1 % Normal 0-5 [facility] Comment on above: Performed By: #### L 100.0100, L500.4050 #### [facility] [address] [place], [address] Erythrocyte distribution width (RBC) [Ratio] 13.0 % Normal 11.6-14.6 [facility] Comment on above: Performed By: #### L 100.0100, L500.4050 #### [facility] [address] [place], [address] Hematocrit (Bld) [Volume fraction] 37.8 % Normal 37-47 [facility] Comment on above: Performed By: #### L 100.0100, L500.4050 #### [facility] [address] [place], [address] Hemoglobin (Bld) [Mass/Vol] 12.6 g/dL Normal 12.0-15.0 [facility] Comment on above: Performed By: #### L 100.0100, L500.4050 #### [facility] [address] [place], [address] IG% 0.300 Normal 0.0-0.9 [facility] Comment on above: Result Comment: IG% - Immature Granulocytes (promyelocytes, myelocytes and metamyelocytes) > 1% indicates that a LEFT SHIFT is Present. Performed By: #### L 100.0100, L500.4050 #### [facility] [address] [place], [address] Lymphocytes/100 WBC (Bld) 34.4 % Normal 19-41 [facility] Comment on above: Performed By: #### L 100.0100, L500.4050 #### [facility] [address] [place], [address] MCH (RBC) [Entitic mass] 30.5 pg Normal 27.0-32.0 [facility] Comment on above: Performed By: #### L 100.0100, L500.4050 #### [facility] [address] [place], [address] MCHC (RBC) [Mass/Vol] 33.3 g/dL Normal 32-36 [facility] Comment on above: Performed By: #### L 100.0100, L500.4050 #### [facility] [address] [place], [address] MCV (RBC) [Entitic vol] 91.5 fL Normal 81-99 [facility] Comment on above: Performed By: #### L 100.0100, L500.4050 #### [facility] [address] [place], [address] Monocytes/100 WBC (Bld) 13.3 % High 0-10 [facility] Comment on above: Performed By: #### L 100.0100, L500.4050 #### [facility] [address] [place], [address] Neutrophils/100 WBC (Bld) 50.3 % Normal 47-70 [facility] Comment on above: Performed By: #### L 100.0100, L500.4050 #### [facility] [address] [place], [address] Nucleated RBC (Bld) [#/Vol] 0 10*3/uL Normal 0-5 [facility] Comment on above: Performed By: #### L 100.0100, L500.4050 #### [facility] [address] [place], [address] Platelet mean volume (Bld) [Entitic vol] 9.4 fL Normal 6.2-12.0 [facility] Comment on above: Performed By: #### L 100.0100, L500.4050 #### [facility] [address] [place], [address] Platelets (Bld) [#/Vol] 372 10*3/uL Normal 150-450 [facility] Comment on above: Performed By: #### L 100.0100, L500.4050 #### [facility] [address] [place], [address] RBC (Bld) [#/Vol] 4.13 10*6/uL Low 4.2-5.4 [facility] Comment on above: Performed By: #### L 100.0100, L500.4050 #### [facility] [address] [place], [address] RDW SD 43.6 fl Normal 35.1-43.9 [facility] Comment on above: Performed By: #### L 100.0100, L500.4050 #### [facility] [address] [place], [address] WBC (Bld) [#/Vol] 7.9 10*3/uL Normal 4.4-11.[address] [facility] Comment on above: Performed By: #### L 100.0100, L500.4050 #### [facility] [address] [place], [address] Carbon dioxide, total [Moles /volume] in Central venous bloodOrdered By: Coy Nath on 10-25-2024 CO2 [Moles/Vol] 22.4 mmol/L 21.0-32.0 [facility] Chloride assayOrdered By: Do ryland Nath on 10-25-2024 Chloride [Moles/Vol] 96 mmol/L Low 98-108 [facility] Comprehensive Metabolic Prof ilon 10-25-2024 Albumin [Mass/Vol] 3.5 g/dL Normal 3.4-4.[address] [facility] Comment on above: Performed By: #### L 100.0100, L500.4050 #### [facility] [address] [place], [address] Albumin/Globulin [Mass ratio] 0.9 {ratio} Normal 0.9-2.4 [facility] Comment on above: Performed By: #### L 100.0100, L500.4050 #### [facility] [address] [place], [address] ALK PHOS 78 U/L Normal 35-104 [facility] Comment on above: Performed By: #### L 100.0100, L500.4050 #### [facility] [address] [place], [address] ALT [Catalytic activity/Vol] 98 U/L High <=34 [facility] Comment on above: Performed By: #### L 100.0100, L500.4050 #### [facility] [address] [place], [address] AST [Catalytic activity/Vol] 90 U/L High <=31 [facility] Comment on above: Performed By: #### L 100.0100, L500.4050 #### [facility] [address] [place], [address] Bilirubin [Mass/Vol] 0.48 mg/dL Normal 0.00-1.30 [facility] Comment on above: Performed By: #### L 100.0100, L500.4050 #### [facility] [address] [place], [address] BUN/CRE 35.9 RATIO High 10-20 [facility] Comment on above: Performed By: #### L 100.0100, L500.4050 #### [facility] [address] [place], [address] Calcium [Mass/Vol] 9.5 mg/dL Normal 7.6-11.[address] [facility] Comment on above: Performed By: #### L 100.0100, L500.4050 #### [facility] [address] [place], [address] Chloride [Moles/Vol] 96 mmol/L Low 98-108 [facility] Comment on above: Performed By: #### L 100.0100, L500.4050 #### [facility] [address] [place], [address] CO2 [Moles/Vol] 22.4 mmol/L Normal 21.0-32.0 [facility] Comment on above: Performed By: #### L 100.0100, L500.4050 #### [facility] [address] [place], [address] Creatinine [Mass/Vol] 0.72 mg/dL Normal 0.70-1.20 [facility] Comment on above: Performed By: #### L 100.0100, L500.4050 #### [facility] [address] [place], [address] GAP 10 Normal 5-15 [facility] Comment on above: Performed By: #### L 100.0100, L500.4050 #### [facility] [address] [place], [address] GFR/1.73 sq M.predicted among non-blacks MDRD (S/P/Bld) [Vol rate/Area] 82 mL/min/{1.73_m2} Normal >60 [facility] Comment on above: Result Comment: mL/m in/1.73m2 CKD-EPI Creatinine Equation (2020) Performed By: #### L 100.0100, L500.4050 #### [facility] [address] [place], [address] Globulin (S) [Mass/Vol] 3.9 g/dL Normal 2.2-4.2 [facility] Comment on above: Performed By: #### L 100.0100, L500.4050 #### [facility] [address] [place], [address] Glucose [Mass/Vol] 96 mg/dL Normal 70-[address] [facility] Comment on above: Performed By: #### L 100.0100, L500.4050 #### [facility] [address] [place], [address] Potassium [Moles/Vol] 5.0 mmol/L Normal 3.3-5.1 [facility] Comment on above: Performed By: #### L 100.0100, L500.4050 #### [facility] [address] [place], [address] Sodium [Moles/Vol] 129 mmol/L Low 133-[address] [facility] Comment on above: Performed By: #### L 100.0100, L500.4050 #### [facility] [address] [place], [address] T PROT 7.4 g/dL Normal 5.9-8.4 [facility] Comment on above: Performed By: #### L 100.0100, L500.4050 #### [facility] [address] [place], [address] Urea nitrogen [Mass/Vol] 26 mg/dL High 4-19 [facility] Comment on above: Performed By: #### L 100.0100, L500.4050 #### [facility] [address] [place], [address] Eosinophil percentageOrdered By: Coy Brown on 10-25-2024 Eosinophils/100 WBC (Bld) 1.1 % 0-5 [facility] Erythrocyte distribution wid th ratioOrdered By: Coy Brown on 10-25-2024 Erythrocyte distribution width (RBC) [Ratio] 13.0 % 11.6-14.6 [facility] Erythrocyte distribution wid th standard deviationOrdered By: Coy Nath on 10-25-2024 Erythrocyte distribution width (RBC) [Entitic vol] 43.6 fL 35.1-43.9 [facility] Erythrocyte distribution width (RBC) [Ratio] 43.6 fl 35.1-43.9 [facility] GFR/1.73 sq M.predicted hernan g non-blacks MDRD (S/P/Bld) [Vol rate/Area]Ordered By: Coy Nath on 10-25-2024 Estimated GFR (MDRD) Non-Af Amer 82 >60 [facility] Comment on above: mL/min/1.73m2 CKD-EP I Creatinine Equation (2020) Glomerular filtration rate ( GFR) estimation/1.73 sq m using serum, plasma, or whole bOrdered By: Coy Nath on 10-25-2024 GFR/1.73 sq M.predicted among non-blacks MDRD (S/P/Bld) [Vol rate/Area] 82 mL/min/{1.73_m2} >60 [facility] Comment on above: mL/min/1.73m2 CKD-EP I Creatinine Equation (2020) Hematocrit Auto (Bld) [Volum e fraction]Ordered By: Coy Nath on 10-25-2024 Hematocrit (Bld) [Volume fraction] 37.8 % 37-47 [facility] Hemoglobin measurementOrdere d By: Coy Nath on 10-25-2024 Hemoglobin (Bld) [Mass/Vol] 12.6 g/dL 12.0-15.0 [facility] Immature granulocytes/100 WB C Auto (Bld)Ordered By: Coy Nath on 10-25-2024 Immature granulocytes/100 WBC (Bld) 0.300 % 0.0-0.9 [facility] Comment on above: IG% - Immature Granu locytes (promyelocytes, myelocytes and metamyelocytes) > 1% indicates that a LEFT SHIFT is Present. Internal Medicine Office Vis trista 10-25-2024 Internal Medicine Office Visit [facility] [address] [place] [address] [address] [place] [address] OFFICE VISIT Date of Service: 10/25/24 MR#: [id number] Acct: [id number] Name: MODESTA COOK Rep #: [id number] : 1940 Provider: Dr. 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??Recorded ???Confirmed ???Type aspirin 81 mg tablet,delayed 81 mg PO DAILY HEART 11/24/1610/14 History release cetirizine 10 mg tablet (Zyrtec) 10 mg PO QHS allergy symptoms 05/1710/25/24 History metoprolol succinate 25 mg 25 mg PO BID #180 tabs 04/26/24 Rx tablet,extended release 24 hr pravastatin 40 mg tablet 40 mg PO QHS CHOLESTROL 08/17/24 0 10/25/24 History methylcellulose (with sugar) oral 1 tbsp PO QDAY 10/05/24 10/25/24 History powder (Citrucel (sucrose) oral powder) nitrofurantoin macrocrystal 50 mg 50 mg PO QHS #90 caps 10/10/24 Rx capsule spironolactone 25 mg tablet 25 mg PO DAILY #90 tabs 10/10/24 0 10/25/24 Rx pantoprazole 40 mg tablet,delayed 40 mg PO DAILY #90 tabs 10/11/24 10/25/24 Rx release valsartan 160 mg tablet 160 mg PO DAILY #90 tabs 10/11/24 10/25/24 Rx amlodipine 10 mg tablet 10 mg PO DAILY BP #90 tabs 5 10/25/24 Rx azithromycin 250 mg tablet See Rx Instructions PO .COMPLEX #6 10/25/24 10/25/24 Rx (Zithromax Z-Ken) tabs Have you fallen in the past year?: No Nurse's Note: needs refills [facility] Medical History Loss of hearing Wears glasses Wears dentures Anxiety Ambulates with cane Bladder disease Injury of head and neck Loss of consciousness Diarrhea Difficulty swallowing History of diverticulitis Gastric reflux Shortness of breath on exertion Leg cramps History of edema History of normal Holter exam History of echocardiogram History of stress test Cardiology follow-up encounter Non-smoker Chronic pain Atrial fibrillation Shortness of breath Cardiac murmur History of hemorrhoids Frequent headaches Chronic back pain History of stomach ulcers Arthritis Hyperlipemia Hypertension History of pneumonia Surgical History S/P spigelian hernia repair, follow-up exam History of cardiac catheterization Hx of colonoscopy History of esophagogastroduodenoscop y (EGD) History of tonsillectomy History of appendectomy History of hysterectomy History of back surgery History of foot surgery Family History Mother Diabetes Hypertension CVA (cerebral vascular accident) Father Myocardial infarction, Onset Age: 80 Brother Cancer Social History Smoking Status: Never smoker alcohol intake: never substance use type: does not use what type of physical activity do you participate in: walking frequency: daily HPI HPI Chief Complaint: cough Details: MODESTA COOK, is a 84 F who presents to the office today for follow-up on her visit where she had influenza A. She says she feels much better the cough is much better but not gone completely she has lost some weight but she was quite ill with the flu so that is not unexpected. ROS Const Constitutional: No body ache, excessive sweating, fatigue, fever(s), frequent falls, headache(s), snoring, weakness, weight change, sleep problems or change in appetite Eyes Eyes: No blurry vision, change in vision, eye pain or Light sensitivity ENT ENT: No abnormal hearing, ear or mastoid pain, tinnitus, nasal congestion, headache(s), neck pain or sore throat Resp Respiratory: No cough, shortness of breath, snoring or wheezing Cardio Cardiology: No chest pain at (more content not included)... Normal [facility] - Chemistry and C hemistry - challengeOrdered By: Coy Nath on 10-25-2024 AST [Catalytic activity/Vol] 90 U/L High <32 [facility] Lymphocytes Auto (Unsp spec) [#/Vol]Ordered By: Coy Nath on 10-25-2024 Lymphocytes (Bld) [#/Vol] 2.72 10*3/uL 0.83-4.51 [facility] Lymphocytes/100 WBC Auto (Un sp spec)Ordered By: Coy Nath on 10-25-2024 Lymphocytes/100 WBC (Bld) 34.4 % 19-41 [facility] MCV (mean corpuscular volume ) determinationOrdered By: Coy Nath on 10-25-2024 MCV (RBC) [Entitic vol] 91.5 fL 81-99 [facility] Mean corpuscular hemoglobin (MCH) determinationOrdered By: Coy Nath on 10-25-2024 MCH (RBC) [Entitic mass] 30.5 pg 27.0-32.0 [facility] Mean corpuscular hemoglobin concentration (MCHC) determinationOrdered By: Coy Nath on 10-25-2024 MCHC (RBC) [Mass/Vol] 33.3 g/dL 32-36 [facility] Mean platelet volume determi nationOrdered By: Coy Nath on 10-25-2024 Platelet mean volume (Bld) [Entitic vol] 9.4 fL 6.2-12.0 [facility] Monocyte percentageOrdered B y: Coy Nath on 10-25-2024 Monocytes/100 WBC (Bld) 13.3 % High 0-10 [facility] Neutrophil percentageOrdered By: Coy Nath on 10-25-2024 Neutrophils/100 WBC (Bld) 50.3 % 47-70 [facility] Nucleated red blood cell per centageOrdered By: Coy Nath on 10-25-2024 Nucleated RBC/100 WBC (Bld) [Ratio] 0 % 0-5 [facility] Platelet countOrdered By: Do ryland Nath on 10-25-2024 Platelets (Bld) [#/Vol] 372 10*3/uL 150-450 [facility] Potassium (Unsp spec) [Mass/ Vol]Ordered By: Coy Nath on 10-25-2024 Potassium [Moles/Vol] 5.0 mmol/L 3.3-5.1 [facility] Potassium measurement (mass/ volume)Ordered By: Coy Nath on 10-25-2024 Potassium (Unsp spec) [Mass/Vol] 5.0 mmol/L 3.3-5.1 [facility] RBC Auto (Bld) [#/Vol]Ordere d By: Coy Nath on 10-25-2024 RBC (Bld) [#/Vol] 4.13 10*6/uL Low 4.2-5.4 [facility] Serum creatinine measurement (mass/volume)Ordered By: Coy Nath on 10-25-2024 Creatinine [Mass/Vol] 0.72 mg/dL 0.70-1.20 [facility] Serum globulin measurementOr dered By: Coy Nath on 10-25-2024 Globulin (S) [Mass/Vol] 3.9 g/dL 2.2-4.2 [facility] Serum glucose measurement (m ass/volume)Ordered By: Coy Nath on 10-25-2024 Glucose [Mass/Vol] 96 mg/dL 70-[address] [facility] Serum or plasma alanine morgan otransferase (ALT) measurementOrdered By: Coy Nath on 10-25-2024 ALT [Catalytic activity/Vol] 98 U/L High <35 [facility] Serum or plasma albumin parag urement (mass/volume)Ordered By: Coy Nath on 10-25-2024 Albumin [Mass/Vol] 3.5 g/dL 3.4-4.[address] [facility] Serum or plasma albumin/glob ulin mass ratioOrdered By: Coy Nath on 10-25-2024 Albumin/Globulin [Mass ratio] 0.9 {ratio} 0.9-2.4 [facility] Serum or plasma alkaline sole sphatase measurementOrdered By: Coy Nath on 10-25-2024 ALP [Catalytic activity/Vol] 78 U/L 35-104 [facility] Serum or plasma calcium parag urement (mass/volume)Ordered By: Coy Nath on 10-25-2024 Calcium [Mass/Vol] 9.5 mg/dL 7.6-11.[address] [facility] Serum or plasma urea nitroge n measurement (mass/volume)Ordered By: Coy Nath on 10-25-2024 Urea nitrogen [Mass/Vol] 26 mg/dL High 4-19 [facility] Sodium levelOrdered By: Lexx Nath on 10-25-2024 Sodium [Moles/Vol] 129 mmol/L Low 133-[address] [facility] Total proteinOrdered By: Jenna Nath on 10-25-2024 Protein [Mass/Vol] 7.4 g/dL 5.9-8.[address] [facility] White blood cell (WBC) count Ordered By: Coy Nath on 10-25-2024 WBC (Bld) [#/Vol] 7.9 10*3/uL 4.4-11.[address] [facility] Influenza virus A and B and SARS-CoV-2 (COVID-19) and Respiratory syncytial virus RNAOrdered By: Coy Nath on 10-11-2024 SARS-CoV-2 (COVID-19) RNA ROBY+probe Ql (Unsp spec) Influenzae A Abnormal [facility] Internal Medicine Office Vis iton 10-11-2024 Internal Medicine Office Visit [facility] [address] [place], [place] [address] OFFICE VISIT Date of Service: 10/11/24 MR#: [id number] Acct: [id number] Name: MODESTA COOK Rep #: [id number] : 1940 Provider: Dr. Coy Alfonso Br own, DO Age/Sex: 84/F Location: [facility] [place] Status: Signed Intake Vital Signs 08/28/24 19:45 10/11/24 11:39 Height 5 ft 1.02 in 5 ft Weight: 138 lb BMI 26.9 BP 142/78 H Blood Pressure Location Lt brachial Position Left Lateral Respiration 19 H Pulse 69 Pulse Source Monitor Temp 97.8 F Temp Source Temporal Pulse Oximetry (%) 96 Oxygen Delivery Method room air Intake Visit Reasons: Cough Chief Complaint: cough Is patient in pain?: No Allergies nitroglycerin Allergy (Mild, Verified 10/11/24 11:40) NEEDS FOLLOW-UP amiodarone Allergy (Verified 10/11/24 11:40) Rash chlorpheniramine (From Actifed Cold-Allergy) Adverse Reaction (Verified 10/11/24 11:40) Other phenylephrine (From Actifed Cold-Allergy) Adverse Reaction (Verified 10/11/24 11:40) Other pseudoephedrine (From Actifed Cold-Allergy) Adverse Reaction (Verified 10/11/24 11:40) Other triprolidine (From Actifed Cold-Allergy) Adverse Reaction (Verified 10/11/24 11:40) Other Medications ???Medication ???Instructions ???Recorded ???Confirmed ???Type aspirin 81 mg tablet,delayed 81 mg PO DAILY HEART 11/24/1609/17 History release cetirizine 10 mg tablet (Zyrtec) 10 mg PO QHS allergy symptoms 05/1710/11/24 History metoprolol succinate 25 mg 25 mg PO BID #180 tabs 04/26/24 Rx tablet,extended release 24 hr amlodipine 10 mg tablet 10 mg PO DAILY BP #90 tabs 4 10/11/24 Rx pravastatin 40 mg tablet 40 mg PO QHS CHOLESTROL 08/17/24 0 10/11/24 History methylcellulose (with sugar) oral 1 tbsp PO QDAY 10/05/24 10/11/24 History powder (Citrucel (sucrose) oral powder) nitrofurantoin macrocrystal 50 mg 50 mg PO QHS #90 caps 10/10/24 Rx capsule spironolactone 25 mg tablet 25 mg PO DAILY #90 tabs 10/10/24 0 10/11/24 Rx azithromycin 250 mg tablet See Rx Instructions PO .COMPLEX #6 10/11/24 10/11/24 Rx (Zithromax Z-Ken) tabs pantoprazole 40 mg tablet,delayed 40 mg PO DAILY #90 tabs 10/11/24 10/11/24 Rx release valsartan 160 mg tablet 160 mg PO DAILY #90 tabs 10/11/24 10/11/24 Rx Have you fallen in the past year?: No Nurse's Note: pt reports that her son and daughter have been ill for weeks. pt states that she had a bad sinus infection a few weeks ago that settled into her chest but reports that it resolved pt states that a few days ago it came back as a cough and headache PFSH Medical History Loss of hearing Wears glasses Wears dentures Anxiety Ambulates with cane Bladder disease Injury of head and neck Loss of consciousness Diarrhea Difficulty swallowing History of diverticulitis Gastric reflux Shortness of breath on exertion Leg cramps History of edema History of normal Holter exam History of echocardiogram History of stress test Cardiology follow-up encounter Non-smoker Chronic pain Atrial fibrillation Shortness of breath Cardiac murmur History of hemorrhoids Frequent headaches Chronic back pain History of stomach ulcers Arthritis Hyperlipemia Hypertension History of pneumonia Surgical History S/P spigelian hernia repair, follow-up exam History of cardiac catheterization Hx of colonoscopy History of esophagogastroduodenoscop y (EGD) History of tonsillectomy History of appendectomy History of hysterectomy History of back surgery History of foot surgery Family History Mother Diabetes Hypertension CVA (cerebral vascular accident) Father Myocardial infarction, Onset Age: 80 Brother Cancer Social History Smoking Status: Never smoker alcohol intake: never substance use type: does not use what type of physical activity do you participate in: walking frequency: daily HPI HPI Chief Complaint: cough Details: MODESTA COOK, is a 84 F who presents to the office today for a productive cough. 2 weeks ago some family members had a cough and they seem to get over it and for 5 days ago this patient started with the cough. The cough is a very racking harsh cough it is productive of mucus and sometimes when she has the coughing fits he is a little short of breath. She has not been afebrile. ROS Const Constitutional: No body ache, chills, excessive sweating, fatigue, fever(s), frequent falls, headache(s), snoring, weight change, sleep problems, abnormal sleep pattern or change in appetite Eyes (more content not included)... Normal [facility] M100.678on 10-11-2024 M100.678 Results called on 10/11/24-154 by SONYA to ([facility] [place] [facility] [place] [phone]. Normal Reference Range = Negative GeneXpert Instrument, PCR method FLUABV+SARS-CoV-2+RSV Pnl Resp ROBY+probe Copy of report sent to Infection Control Printer [id number] 10/11/24 7232 SONYA. SARS-CoV-2 (COVID 19) Negative INFLUENZA A A Positive A INFLUENZA B Negative RSV PCR Negative INFLUENZAE A Normal [facility] Comment on above: Performed By: #### L 7000.0700, M7400.3302, M600.5000 #### [facility] [address] [place], [address] Surgery Visit Reporton 10-05 Surgery Visit Report [facility] [address] [place] [address] OFFICE VISIT Date of Service: 10/05/24 MR#: [id number] Acct: [id number] Name: MODESTA COOK Rep #: [id number] : 1940 Provider: Dr. Emily quinteros MD Age/Sex: 84/F Location: [facility] Status: Signed Intake Vital Signs 08/28/24 19:45 Height 5 ft 1.02 in Intake Visit Reasons: VENTRAL HERNIA DOS 08/28 Chief Complaint: ventral hernia 08/28 Is patient in pain?: Yes (tender in lower left abdomen) Allergies nitroglycerin Allergy (Mild, Verified 10/05/24 14:51) NEEDS FOLLOW-UP amiodarone Allergy (Verified 10/05/24 14:51) Rash chlorpheniramine (From Actifed Cold-Allergy) Adverse Reaction (Verified 10/05/24 14:51) Other phenylephrine (From Actifed Cold-Allergy) Adverse Reaction (Verified 10/05/24 14:51) Other pseudoephedrine (From Actifed Cold-Allergy) Adverse Reaction (Verified 10/05/24 14:51) Other triprolidine (From Actifed Cold-Allergy) Adverse Reaction (Verified 10/05/24 14:51) Other Medications ???Medication ???Instructions ???Recorded ???Confirmed ???Type aspirin 81 mg tablet,delayed 81 mg PO DAILY HEART 11/24/1609/17 History release cetirizine 10 mg tablet (Zyrtec) 10 mg PO QHS allergy symptoms 05/1710/05/24 History pantoprazole 40 mg tablet,delayed 40 mg PO DAILY #90 tabs 04/11/24 10/05/24 Rx release metoprolol succinate 25 mg 25 mg PO BID #180 tabs 04/26/24 Rx tablet,extended release 24 hr amlodipine 10 mg tablet 10 mg PO DAILY BP #90 tabs 4 10/05/24 Rx spironolactone 25 mg tablet 25 mg PO DAILY #90 tabs 07/07/24 0 10/05/24 Rx pravastatin 40 mg tablet 40 mg PO QHS CHOLESTROL 08/17/24 0 10/05/24 History valsartan 160 mg tablet 160 mg PO DAILY 08/17/24 10/05/24 History methylcellulose (with sugar) oral 1 tbsp PO QDAY 10/05/24 10/05/24 History powder (Citrucel (sucrose) oral powder) Have you fallen in the past year?: No Subjective Details: Patient presents following robot-assisted left spigelian hernia repair on 08/28/2024. They were seen for their first postoperative visit with Mrs. Grant on 09/07/2024. Presents today with her daughter. Since hospital discharge they have been doing well overall however, she comments that it has been slowly getting her energy back. They report some persistent left lower quadrant discomfort. They state that this is worse right after bowel movements. They initially suggest that this is all postoperative, however, the later clarify that this discomfort was present even prior to the operation and is now better. They are pleased with their wound healing and have no concerns. Conservative bowel activity they note that they have transition to use of Citrucel twice daily and this has decreased her bowel movement frequency to around 3 soft stools per day but they suggest this still is a minimum. In discussing prior colonoscopy, patient states that her last scope was years ago. When pressed for more accurate timeframe she and her daughter are able to reply that it was shortly after her custodial in 2001. They note that this colonoscopy was completed [facility]. Patient states that she initially was on a aggressive surveillance interval with colonoscopies???undergoin g the studies yearly because polyps were detected at every scope. However, the last 2-3 colonoscopies were clear and she was followed up no further. I shared with patient that at the conclusion of her visit in August she underwent testing for a number of infectious causes of her diarrhea as well as a stool lactoferrin test. The infectious assay returned negative, but the stool lactoferrin was positive. With this latter result I asked the patient whether or not she or members of her family were ever diagnosed with inflammatory bowel disease. Upon hearing this question, patient's daughter immediately interjected that both she and another sister have been diagnosed with inflammatory bowel disease (Crohns) and are patient's of Dr. Guzmán of gastroenterology. She further adds that she recently saw Dr. Guzmán in visitation and informed him that she believed her mother would be coming soon because of the bowel issues that had been experienced recently. Objective Details: Constitutional: Appears stated age, but cooperative and answers overall appropriately but appears to have some hearing loss Abdomen: Nondistended, skin laxity, incisions are well-healed from procedure, there is persistent tenderness in the left lower quadrant around the area where the hernia was repaired but I only feel scar tissue with palpation. The tenderness does appear more limited to the abdominal wall. Coding Level of Care Code Global Post Op Diagnoses S/P spigelian hernia repair, follow-up exam Z09 Diarrhea R19.7 P (more content not included)... Normal [facility] ENTERIC PATHOGEN PANEL STOOL on 02-04-2025 EP PANEL Normal Reference Ran ge = Not Detected Not detected for Campylobacter group, Salmonella species, Shigella species, Vibrio Group, Yersinia enterocolitica, EHEC (Shiga Toxin 1, Shiga Toxin 2), Norovirus Gl/Gll, and Rotavirus A. Other common stool pathogens are not detected on this panel include: Aeromonas/Plesiomonas or parasites. Order testing for these organisms separately if suspected. This is an amplified DNA test which makes it both specific and sensitive. CAMPYLOBACTER Not Detected Norovirus Not Detected Rotavirus Not Detected Salmonella Not Detected Shiga Toxin Not Detected Shigella sp. Not Detected VIBRIO Not Detected Yersinia Not Detected Normal [facility] Comment on above: Performed By: #### M 100.0605, M100.637, M100.7900 ####[facility] [address] [place], [address] Lactoferrin IA Ql (Stl)Order ed By: Nandini Grant on 09-18-2024 Stool Lactoferrin [facility] Lower GI hemoglobin IA Ql (S tl)Ordered By: Nandini Grant on 09-18-2024 Stool Occult Blood (GALA) [facility] Stool Lactoferrin/WBCon 02-0 WBCST Normal Reference Ran ge = Negative Fecal WBC Lactoferrin A Positive: Fecal WBC Lactoferrin present A Normal [facility] Comment on above: Performed By: #### M 100.0605, M100.637, M100.7900 ####[facility] [address] [place], [address] Stool Occult Blood iFOBon STOB Negative Normal [facility] Comment on above: Performed By: #### M 100.0605, M100.637, M100.7900 ####[facility] [address] [place], [address] Stool enteric pathogen panel by probe and target amplification methodOrdered By: Nandini Grant on 09-18-2024 Enteric Bacteriology [facility] Stool gastrointestinal hemog lobin detection by immunologic methodOrdered By: Nandini Grant on 09-18-2024 Lower GI hemoglobin IA Ql (Stl) [facility] Stool lactoferrin detection by immunoassayOrdered By: Nandini Grant on 09-18-2024 Lactoferrin IA Ql (Stl) [facility] Surgery Visit Reporton 09-06 Surgery Visit Report [facility] [address] [place] [address] OFFICE VISIT Date of Service: 09/06/24 MR#: [id number] Acct: [id number] Name: MODESTA COOK Rep #: [id number] : 1940 Provider: MIK gates Age/Sex: 84/F Location: [facility] Status: Signed Intake Vital Signs 08/28/24 19:45 Height 5 ft 1.02 in Intake Visit Reasons: VENTRAL HERNIA DOS 08/28 Chief Complaint: spigelian hernia Traffic Incident Management Manager Required: No Is patient in pain?: No Allergies nitroglycerin Allergy (Mild, Verified 09/06/24 13:56) NEEDS FOLLOW-UP amiodarone Allergy (Verified 09/06/24 13:56) Rash chlorpheniramine (From Actifed Cold-Allergy) Adverse Reaction (Verified 09/06/24 13:56) Other phenylephrine (From Actifed Cold-Allergy) Adverse Reaction (Verified 09/06/24 13:56) Other pseudoephedrine (From Actifed Cold-Allergy) Adverse Reaction (Verified 09/06/24 13:56) Other triprolidine (From Actifed Cold-Allergy) Adverse Reaction (Verified 09/06/24 13:56) Other Medications ???Medication ???Instructions ???Recorded ???Confirmed ???Type aspirin 81 mg tablet,delayed 81 mg PO DAILY HEART 11/24/16 09/06/24 History release cetirizine 10 mg tablet (Zyrtec) 10 mg PO QHS allergy symptoms 06/07/23 09/06/24 History pantoprazole 40 mg tablet,delayed 40 mg PO DAILY #90 tabs 04/11/24 09/06/24 Rx release metoprolol succinate 25 mg 25 mg PO BID #180 tabs 04/26/24 09/06/24 Rx tablet,extended release 24 hr amlodipine 10 mg tablet 10 mg PO DAILY BP #90 tabs 06/30/24 09/06/24 Rx spironolactone 25 mg tablet 25 mg PO DAILY #90 tabs 07/07/24 09/06/24 Rx pravastatin 40 mg tablet 40 mg PO QHS CHOLESTROL 08/17/24 09/06/24 History valsartan 160 mg tablet 160 mg PO DAILY 08/17/24 09/06/24 History Have you fallen in the past year?: No Subjective Details: Patient is an 84 y/o F I am following s/p robotic-assisted laparoscopic repair of left spigelian hernia with mesh by Dr. Madrigal on 08/28/24. Patient tolerated the procedure well. She notes feeling tired. She denies nausea, vomiting, fever. She notes appetite is slowly returning. She notes her bowel habits have slightly improved. She continues to note loose stools. She does take the Citrucel daily. Objective Details: Abdomen- soft, nontender. Incisions c/d/i. No erythema or infection noted. Coding Level of Care Code Global Post Op Diagnoses Diarrhea R19.7 S/P spigelian hernia repair, follow-up exam Z09 [facility] Medical History (Updated 09/06/24 @ 14:34 by Nandini LONGORIA, PA-C) Loss of hearing Wears glasses Wears dentures Anxiety Ambulates with cane Bladder disease Injury of head and neck Loss of consciousness Diarrhea Difficulty swallowing History of diverticulitis Gastric reflux Shortness of breath on exertion Leg cramps History of edema History of normal Holter exam History of echocardiogram History of stress test Cardiology follow-up encounter Non-smoker Chronic pain Atrial fibrillation Shortness of breath Cardiac murmur History of hemorrhoids Frequent headaches Chronic back pain History of stomach ulcers Arthritis Hyperlipemia Hypertension History of pneumonia Surgical History (Updated 09/07/24 @ 15:07 by Nandini LONGORIA, PA-C) S/P spigelian hernia repair, follow-up exam History of cardiac catheterization Hx of colonoscopy History of esophagogastroduodenoscop y (EGD) History of tonsillectomy History of appendectomy History of hysterectomy History of back surgery History of foot surgery Family History Mother Diabetes Hypertension CVA (cerebral vascular accident) Father Myocardial infarction, Onset Age: 80 Brother Cancer Social History Smoking Status: Never smoker alcohol intake: never substance use type: does not use what type of physical activity do you participate in: walking frequency: daily Assessment and Plan (No Qualifiers) Assessment and Plan (1) Diarrhea: Status: Acute (2) S/P spigelian hernia repair, follow-up exam: Status: Acute Plan: Recommend no lifting greater than 10 pounds for 5 weeks from surgery Stools studies ordered Try Citrucel BID Follow-up in [address] Madrigal 09/07/24 1516 Date Nandini Mittal Signature: Date (if applicable) CC: Dr. Coy Nath, DO; Dr. Emily Madrigal MD Normal [facility] Absolute neutrophil countOrd ered By: Emily Madrigal on 08-29-2024 Neutrophils (Bld) [#/Vol] 13.3 10*3/uL High 2.0-7.7 [facility] Basophil percentageOrdered B y: Emily Madrigal on 08-29-2024 Basophils/100 WBC (Bld) 0.2 % 0-1 [facility] CBC W/Diff, Automatedon 08-16 Absolute Lymph 2.13 X10 3/uL Normal 0.83-4.51 [facility] Comment on above: Performed By: #### L 100.0100 ####[facility] [address] [place], [address] Absolute Neut 13.3 X10 3/uL High 2.0-7.7 [facility] Comment on above: Performed By: #### L 100.0100 ####[facility] [address] [place], [address] Basophils/100 WBC (Bld) 0.2 % Normal 0-1 [facility] Comment on above: Performed By: #### L 100.0100 ####[facility] [address] [place], [address] Eosinophils/100 WBC (Bld) 0.0 % Normal 0-5 [facility] Comment on above: Performed By: #### L 100.0100 ####[facility] [address] [place], [address] Erythrocyte distribution width (RBC) [Ratio] 13.9 % Normal 11.6-14.6 [facility] Comment on above: Performed By: #### L 100.0100 ####[facility] [address] [place], [address] Hematocrit (Bld) [Volume fraction] 32.7 % Low 37-47 [facility] Comment on above: Performed By: #### L 100.0100 ####[facility] [address] [place], [address] Hemoglobin (Bld) [Mass/Vol] 10.9 g/dL Low 12.0-15.0 [facility] Comment on above: Performed By: #### L 100.0100 ####[facility] [address] [place], [address] IG% 0.600 Normal 0.0-0.9 [facility] Comment on above: Result Comment: IG% - Immature Granulocytes (promyelocytes, myelocytes and metamyelocytes) > 1% indicates that a LEFT SHIFT is Present. Performed By: #### L 100.0100 ####[facility] [address] [place], [address] Lymphocytes/100 WBC (Bld) 13.1 % Low 19-41 [facility] Comment on above: Performed By: #### L 100.0100 ####[facility] [address] [place], [address] MCH (RBC) [Entitic mass] 30.1 pg Normal 27.0-32.0 [facility] Comment on above: Performed By: #### L 100.0100 ####[facility] [address] [place], [address] MCHC (RBC) [Mass/Vol] 33.3 g/dL Normal 32-36 [facility] Comment on above: Performed By: #### L 100.0100 ####[facility] [address] [place], [address] MCV (RBC) [Entitic vol] 90.3 fL Normal 81-99 [facility] Comment on above: Performed By: #### L 100.0100 ####[facility] [address] [place], [address] Monocytes/100 WBC (Bld) 4.7 % Normal 0-10 [facility] Comment on above: Performed By: #### L 100.0100 ####[facility] [address] [place], [address] Neutrophils/100 WBC (Bld) 81.4 % High 47-70 [facility] Comment on above: Performed By: #### L 100.0100 ####[facility] [address] [place], [address] Nucleated RBC (Bld) [#/Vol] 0 10*3/uL Normal 0-5 [facility] Comment on above: Performed By: #### L 100.0100 ####[facility] [address] [place], [address] Platelet mean volume (Bld) [Entitic vol] 9.2 fL Normal 6.2-12.0 [facility] Comment on above: Performed By: #### L 100.0100 ####[facility] [address] [place], [address] Platelets (Bld) [#/Vol] 289 10*3/uL Normal 150-450 [facility] Comment on above: Performed By: #### L 100.0100 ####[facility] [address] [place], [address] RBC (Bld) [#/Vol] 3.62 10*6/uL Low 4.2-5.4 [facility] Comment on above: Performed By: #### L 100.0100 ####[facility] [address] [place], [address] RDW SD 45.9 fl High 35.1-43.9 [facility] Comment on above: Performed By: #### L 100.0100 ####[facility] [address] [place], [address] WBC (Bld) [#/Vol] 16.3 10*3/uL High 4.4-11.0 [facility] Comment on above: Performed By: #### L 100.0100 ####[facility] [address] [place], [address] Eosinophil percentageOrdered By: Emily Madrigal on 08-29-2024 Eosinophils/100 WBC (Bld) 0.0 % 0-5 [facility] Erythrocyte distribution wid th ratioOrdered By: Emily Madrigal on 08-29-2024 Erythrocyte distribution width (RBC) [Ratio] 13.9 % 11.6-14.6 [facility] Erythrocyte distribution wid th standard deviationOrdered By: Emily Madrigal on 08-29-2024 Erythrocyte distribution width (RBC) [Entitic vol] 45.9 fL High 35.1-43.9 [facility] Hematocrit Auto (Bld) [Volum e fraction]Ordered By: Emily Madrigal on 08-29-2024 Hematocrit (Bld) [Volume fraction] 32.7 % Low 37-47 [facility] Hemoglobin measurementOrdere d By: Emily Madrigal on 08-29-2024 Hemoglobin (Bld) [Mass/Vol] 10.9 g/dL Low 12.0-15.0 [facility] Immature granulocytes/100 WB C Auto (Bld)Ordered By: Emily Madrigal on 08-29-2024 Immature granulocytes/100 WBC (Bld) 0.600 % 0.0-0.9 [facility] Comment on above: IG% - Immature Granu locytes (promyelocytes, myelocytes and metamyelocytes) > 1% indicates that a LEFT SHIFT is Present. Lymphocytes Auto (Unsp spec) [#/Vol]Ordered By: Emily Madrigal on 08-29-2024 Lymphocytes (Bld) [#/Vol] 2.13 10*3/uL 0.83-4.51 [facility] Lymphocytes/100 WBC Auto (Un sp spec)Ordered By: Emily Madrigal on 08-29-2024 Lymphocytes/100 WBC (Bld) 13.1 % Low 19-41 [facility] MCV (mean corpuscular volume ) determinationOrdered By: Emily Madrigal on 08-29-2024 MCV (RBC) [Entitic vol] 90.3 fL 81-99 [facility] Mean corpuscular hemoglobin (MCH) determinationOrdered By: Emily Madrigal on 08-29-2024 MCH (RBC) [Entitic mass] 30.1 pg 27.0-32.0 [facility] Mean corpuscular hemoglobin concentration (MCHC) determinationOrdered By: Emily Madrigal on 08-29-2024 MCHC (RBC) [Mass/Vol] 33.3 g/dL 32-36 [facility] Mean platelet volume determi nationOrdered By: Emily Madrigal on 08-29-2024 Platelet mean volume (Bld) [Entitic vol] 9.2 fL 6.2-12.0 [facility] Monocyte percentageOrdered B y: Emily Madrigal on 08-29-2024 Monocytes/100 WBC (Bld) 4.7 % 0-10 [facility] Neutrophil percentageOrdered By: Emily Madrigal on 08-29-2024 Neutrophils/100 WBC (Bld) 81.4 % High 47-70 [facility] Nucleated red blood cell per centageOrdered By: Emily Madrigal on 08-29-2024 Nucleated RBC/100 WBC (Bld) [Ratio] 0 % 0-5 [facility] Platelet countOrdered By: Rosy Madrigal on 08-29-2024 Platelets (Bld) [#/Vol] 289 10*3/uL 150-450 [facility] RBC Auto (Bld) [#/Vol]Ordere d By: Emily Madrigal on 08-29-2024 RBC (Bld) [#/Vol] 3.62 10*6/uL Low 4.2-5.4 [facility] White blood cell (WBC) count Ordered By: Emily Madrigal on 08-29-2024 WBC (Bld) [#/Vol] 16.3 10*3/uL High 4.4-11.0 [facility] Discharge Instructionon 08-16 Discharge Instruction [facility] Medical Records Department [address] [place] [address] Instructions for Home/Discharge Instructions 08/28/24 1343 MR#: [id number] Acct: [id number] Name: MODESTA COOK Rep #: [id number] : 1940 84 From: Emily Madrigal MD PCP: Dr. Coy Nath, DO Status:DIS ROBERT Discharge Instructions Diet Discharge Diet: No restrictions Activity Discharge Activity: May Not Drive (While taking narcotic pain medication) and May Shower May shower in (days): 2 Ice area for (Minutes): 20 Lifting Restrictions: No lifting greater than 10 pounds for the next 5 weeks Dressing / Incision Call your doctor if your incision/area has: Continuous Slow Oozing, Increased Pain/ Swelling, Increased Redness, Foul Smelling Discharge and Swelling at the incision site Call your doctor if you observe: Fever of 101 or Higher, Inability to urinate and Inability to have a bowel movement Change Dressing in: 2 days (Please leave Steri-Strips intact until they fall off spontaneously or are taken off at your follow-up visit) Remove Dressing in: 2 days Cleanse incision/area with: Soap Water and Keep Dressing Clean Dry Follow Up Care Please Follow Up With: Emily Madrigal MD When: 1 week postop Test Results: Test results from this visit will be discussed in further detail at your follow-up appointment, if applicable. Discharge Plan Admission Admit Date/Time: 08/28/24 16:58 Primary Reason for Your Visit: Left spigelian hernia repair Attending Provider: Emily Madrigal Primary Care Provider: Coy Nath Instructions Additional Instructions / Restrictions: Hernia Diet ??? Start light with soups and soft bland foods. You may advance diet as tolerated. Activity ??? You may drive in 7 days but not while taking narcotic pain medication. ??? I encourage walking. You may go up steps, one at a time. ??? Do not swim or use hot tubs for 2 weeks. ??? For comfort, you may use warm compresses or ice as needed for 15-20 minutes at a time. Lifting ??? You may lift up to 10 pounds for 5 weeks. Dressings/Incision ??? You may shower OVER your plastic dressings ??? Do NOT tub bathe for 1 week ??? Leave plastic dressings on for 2 days. ??? When plastic dressings are removed, you will find steri strips. It is okay to continue showering with them in place, pat them dry. ??? You may remove steri-strips after 1 week. We recommend getting them soaking wet for easier removal. Medications ??? Anesthesia used during surgery and pain medications may cause constipation. I recommend initiating on the day of surgery a fiber supplement like, Metamucil, Citrucel, FiberCon, Benefiber, or a generic form of these medications. 1 heaping tablespoon in water daily. You may continue to utilize any bowel regimen or oral laxatives that you routinely take. ??? As long as you are not intolerant to Tylenol, acetaminophen, ibuprofen, Motrin, Advil, Aleve, or similar medications, I would recommend transitioning to these tjek-qhy-pxtpezm medicines as soon as possible instead of continued use of narcotic pain medication. Follow up ??? You should call [facility] soon after surgery, at [phone] option 2 to make a follow up appointment for 7-10 days after your surgery. Discharge Orders/Prescriptions Prescriptions: New oxycodone 5 mg tablet 5 mg PO Q6H PRN (Reason: pain) 3 Days Qty: 10 0RF Continued cetirizine [Zyrtec] 10 mg tablet 10 mg PO QHS metoprolol succinate 25 mg tablet extended release 24 hr 25 mg PO BID Qty: 180 2RF pantoprazole 40 mg tablet,delayed release (DR/EC) 40 mg PO DAILY Qty: 90 1RF aspirin 81 MG tablet,delayed release (DR/EC) 81 mg PO DAILY pravastatin 40 mg tablet 40 mg PO QHS valsartan 160 mg tablet 160 mg PO DAILY amlodipine 10 mg tablet 10 mg PO DAILY Qty: 90 1RF spironolactone 25 mg tablet 25 mg PO DAILY Qty: 90 0RF mupirocin 2 % ointment 1 applic topical BID 7 Days Qty: 15 0RF Rx Instructions: apply to bilateral nares with a q-tip twice daily. chlorhexidine gluconate [Hibiclens] 4 % liquid 1 applic topical DAILY 7 Days Qty: 236 0RF Rx Instructions: shower with hibiclens once daily Referrals / Follow Up: Coy Nath DO [Primary Care Provider] - Disposition Disposition (needs filled in before D/C Order can be placed): Home, Self Care 08/29/24 7262 Emily Madrigal MD CC: Dr. Coy Nath DO Signed [facility] MR/POSTOP.[facility] 08-28-2024 MR/POSTOP.[facility] Medical Records Department [address] [place] [address] Anesthesia Postop Eval I 08/28/24 1445 MR#: [id number] Acct: [id number] Name: MODESTA COOK Rep #: [id number] : 1940 84 From: Candido Echevarria MD PCP: Dr. Coy Nath DO Status:REG [place] Y Race: C Location: [place] [address] Anesthesia: Postop Eval I Current Vital Signs Temperature: 97 F Pulse Rate: 55 Blood Pressure: 114/96 Respiratory Rate: 16 Pulse Ox: 97 Oxygen Delivery Method: Nasal Cannula Oxygen Flow Rate (L/min): 3 Assessment Airway patent: Yes Spontaneous unlabored respirations: Yes nausea: No Vomiting: No Anesthesia Complication: No Fluid Hydration Crystalloid volume administer (ml): 400 Total IV fluid infused: 400 Progress Note Anesthesia document: Postop Eval 1 completed: Yes 08/28/247 Date Candido Echevarria MD Cosigner Signature: Date CC: Signed Normal [facility] MR/[id number] 08-28-2024 MR/POSTOPAN2 [facility] Medical Records Department [address] [place] [address] Anesthesia Postop Eval II 08/28/24 1447 MR#: [id number] Acct: [id number] Name: MODESTA COOK Rep #: [id number] : 1940 84 From: Candido Echevarria MD PCP: Dr. Coy Nath, DO Status:REG [facility] Y Race: C Location: [place] [address] Anesthesia Postop Eval I Sum Postop Eval Completion status Anesthesia document: Postop Eval 1 completed: Yes Anesthesia Postop Eval I Summary Anesthesia Postop Eval I Summary: Anesthesia Postop Eval I: Assessment Summary Airway patent Yes 08/28/24 14:47 Spontaneous unlabored Yes 08/28/24 14:47 respirations Mental status nausea No 08/28/24 14:47 Vomiting No 08/28/24 14:47 Anesthesia Postop Eval I: Fluid Summary Crystalloid volume administer 400 08/28/24 14:47 (ml) Colloids volume administered ( ml) Blood Product volume administered (ml) Total IV fluid infused 400 08/28/24 14:47 Anesthesia Postop Eval I: Summary Notes Anesthesia Complication No 08/28/24 14:47 Anesthesia Complication Comment: Post-operative progress note Anesthesia: Postop Eval II Evaluation Mental status: Awake Pain Level: 0 nausea: No Vomiting: No 08/28/24 1447 Date Candido Echevarria MD Cosigner Signature: Date CC: Signed Normal [facility] Operative Reporton 5 Operative Report [facility] Medical Records Department [address] [place] [address] Operative Report 08/28/24 1326 MR#: [id number] Acct: [id number] Name: MODESTA COOK Rep #: [id number] : 1940 84 From: Emily Madrigal MD PCP: Dr. 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 Surgery/Procedure Performed: Robot-assisted laparoscopic repair of left spigelian hernia with mesh it software engineer: Yes Vacuum Caster: Binh Arias Tasks completed by nurse practitioner physicians assistant: Opening closing and Trocar Type of Anesthesia: General/Supplemental RN Documented Start/Stop Times: Operation Date: 08/28/24 11:00 Case Time Into Pre-Op 08/28/24 09:29 Out of Pre-Op 08/28/24 10:28 Anesthesia Start 08/28/24 10:33 Into Room 08/28/24 10:33 Procedure Start 08/28/24 10:58 Procedure End 08/28/24 13:34 Anesthesia End 08/28/24 13:44 Out of Room 08/28/24 13:44 Into Recovery 08/28/24 13:46 Out of Recovery 08/28/24 15:05 Into Phase II Recovery 08/28/24 15:06 Out of Phase II 08/28/24 19:02 Procedure Start Time: 10:58 Procedure Stop Time: 13:34 Select all DRAINS/GRAFTS/IMPLANTS that apply: Implanted device (ProGrip mesh) Implanted device details: Lot [id number], reference LPG [id number] Estimated Blood Loss: 15 Specimen collected: No Description of surgery: After appropriate identification in the preoperative holding area the patient was brought to the operating room where she was positioned supine on the operating table. Preoperative antibiotics were completed and the patient was administered a general anesthetic. Patient's abdomen was then prepped and draped in usual sterile fashion. Formal timeout followed to confirm patient and procedure. Procedure was begun with an optical entry facilitated by [facility]. Unfortunately I was unable to achieve both a water drop test and low insufflation pressures with placement of the Veress needle so this approach was abandoned in favor of a open Dupree approach via the left upper quadrant. Once pneumoperitoneum reached a set point pressure of 15 mmHg the a trocar was placed and the peritoneal cavity was inspected. We immediately identified a adhesion between the omentum and the anterior abdominal wall on the left as well as some mild to moderate insufflation of the mesocolon (likely from a Veress needle attempt x 1). Laparoscopic visualization otherwise confirmed no inadvertent injury to the viscera below and 2 additional ports were placed in the right upper quadrant and paramedian positions, respectively, after instillation of local anesthetic. Patient was positioned in Trendelenburg and I could visualize a moderately large left spigelian hernia containing small bowel. Gentle traction was placed externally but I was unable to fully reduce the hernia. The robot was docked in standard fashion. Robotically, a peritoneal flap was created on the left extending from just above the arcuate line lateral to the linea semilunaris and medially to the area of the previously embolized left inferior epigastric vessels. Dissection was carried inferiorly in a preperitoneal plane cauterizing small vessels as I proceeded to maintain hemostasis. I carefully worked to remain the visceral side of the peritoneal cavity to protect the underlying nerves of the abdominal wall. The hernia sac was identified and from the defect with steady downward traction and with selective use of monopolar energy to divide adhesions/scar tissue. Beyond this, I was careful to continue my dissection onto the anterior abdominal wall but not proceed more inferiorly that need be as I was cognizant of my proximity to the iliac vessels. The peritoneal flap was inspected to ensure that there was no tethering to the hernia defect. Once satisfied, a #1 Stratafix suture was used to run the hernia defect closed and then doubled back upon itself to lock the suture. With the defect closed the preperitoneal space was measured and a 8 cm x 8 cm ProGrip mesh was custom cut for this opening. It was positioned over the defect within this pocket and pressed into place. Superiorly it appeared as the mesh was pulling away from the anterior abdominal wall so I chose to tack the mesh with a single 3-0 Vicryl suture in an interrupted fashion. The peritoneal flap was then closed with a running 3-0 V-Loc suture. During this closure I opted to hang the large loculated hernia sac along the closure line and work to obliterate any potential openings that could risk an internal hernia. This included lysing an adhesion between (more content not included)... Normal [facility] MR/PAT.ANEon 08-24-2024 MR/PAT.ANE [facility] Medical Records Department [address] [place] [address] PAT - Anesthesia 08/24/24 1335 MR#: [id number] Acct: [id number] Name: MODESTA COOK Rep #: [id number] : 1940 84 From: Candido Echevarria MD PCP: Dr. Coy Nath, DO Status:PRE [facility] Y Race: C Location: [facility] Pre-Assessment Diagnosis/Proposed Procedure Planned Operative Procedure(s): ROBOTIC VENTRAL HERNIA REPAIR WITH MESH Anesthesia History Anesthesia History - construction rep: Anesthesia History - construction rep Hx Hospitalization Yes: 06/202408/17/24 13:14 Any Problems With Anesthesia No 08/17/24 13:14 Cholinesterase deficiency No 08/17/24 13:14 You/Your Family Experience No 08/17/24 13:14 fever (hyperthermia) with Relationship Recent Exposure to Contagious Disease Does patient have nerve No 08/17/24 13:14 stimulator Patient instructed to have device shut off --Does patient have Pacemaker or ICD? When Was Last Pacemaker Check QUESTION #4 FULL TEXT: You/Your Family Experience fever (hyperthermia) with Anesthesia Last Oral Intake Last Oral intake: Last Oral Intake NPO since Meds taken in AM with sips of water? 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 - construction rep: PONV - construction rep Female Yes 08/17/24 13:14 HX of Motion Sickness No 08/17/24 13:14 HX of N/V After Surgery No 08/17/24 13:14 Non-Smoker Yes 08/17/24 13:14 Duration of Surgery greater Yes 08/17/24 13:14 than 60 minutes Number of Risk Factors 3 08/17/24 13:14 PONV Score Moderate Risk 08/17/24 13:14 Height Weight Height Weight: Anesthesia: Height Weight Height 5 ft 3 in 07/04/24 14:58 Respiratory Assessment Respiratory Assessment - construction rep: Respiratory Tract Infection Hx - construction rep Hx Respiratory Tract Infection Yes: SINUS INFECTION/TREATED 08/17/24 13:14 /RESOLVED STOP Sleep Apnea STOP Sleep Apnea - construction rep: STOP Sleep Apnea - construction rep Hx Hypertension Yes: CONTROLLED WITH MEDS 08/17/24 13:14 Hx Sleep Apnea No 08/17/24 13:14 CPAP BIPAP Do you snore loudly (louder No 08/17/24 13:14 than talking or can be heard Do you often feel tired/ No 08/17/24 13:14 fatigued/ sleepy during daytime? Has anyone observed you stop No 08/17/24 13:14 breathing during sleep? STOP Results Negative 08/17/24 13:14 QUESTION #5 FULL TEXT : Do you snore loudly (louder than talking or can be heard through closed doors)? Tobacco Use History Tobacco Use History - construction rep: Tobacco Use History - construction rep Tobacco Use Smoking Status Never smoker 08/17/24 13:14 Hx Tobacco Use No 08/17/24 13:14 Years Smoking Packs Smoked per Day Smoking Cessation Date was within the last 15 years Hx Smoking Cessation Date Hx Smoking Cessation Counseling Hematologic Medial History Hematologic Hx - construction rep: Hematologic Medical Hx - proposal coordinator Hx of Blood Transfusion Yes 08/17/24 13:14 Hx of Transfusion in last 3 Yes 08/17/24 13:14 Months Date of Last Transfusion (if 06/202408/17/24 13:14 within last 3 months) Ever experience any problems No 08/17/24 13:14 with transfusion(s)? Specify any problems Hx of Preganancy in last 3 No 08/17/24 13:14 Months Nurse Filling Out Transfusion DSCHRIBER 08/17/24 13:14 Questions: Date: 08/17/24 08/17/24 13:14 Time: 13:17 08/17/24 13:14 Patient unable to answer at this time (ie. 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 Hx Now No 08/17/24 13:14 Gestational Age (in weeks): EDC: Hx Hx Para Hx Section SAB No 08/17/24 13:14 [facility] Medical History (Updated 08/17/24 @ 13:34 by Coral Smith) Loss of hearing Wears glasses Wears dentures Anxiety Ambulates with cane Bladder disease Injury of head and neck Loss of consciousness Diarrhea Difficulty swallowing History of diverticulitis Gastric reflux Shortness of breath on exertion Leg cramps History of edema History of normal Holter exam History of echocardiogram History of stress test Cardiology follow-up encounter Non-smoker Chronic pain Atrial fibrillation Shortness of breath Cardiac murmur History of hemorrhoids Frequent headaches Chronic back pain History of stomach ulcers Arthritis Hyperlipemia Hypertension History of pneumonia Home Medications ???Medication ???Instructions ???Recorded ???Last Taken ???Type aspirin 81 mg tablet,delayed 81 mg PO DAILY HEART 11/24/16 Unknown History releas (more content not included)... Normal [facility] MRSA/SAID NASAL SCREENon MRSA+SAID SCRN Reason for Exam: PRE OP MRSA MRSA Negative S. AUREUS S. aureus PositiveA Normal [facility] Comment on above: Performed By: #### L 7000.0700, M7400.3302, M600.5000 #### [facility] Laboratory [address] [place], [address] 12 Lead EKGon 08-22-2024 12 Lead EKG [facility] Cardiovascular Services [address] [place] [address] 12 Lead EKG 08/22/24 1325 MR#: [id number] Acct: [id number] Name: MODESTA COOK Rep #: [id number] : 1940 84 From: Emily Leyva MD Attending Dr: Dr. Emily Madrigal MD Status: PRE [facility] Ordering Dr: Candido Echevarria MD Date: 08/22/24 Location: [facility] Sex: F C Admitted: Test Reason : PRE OP Blood Pressure : */* mmHG Vent. Rate : 53 BPM Atrial Rate : 53 BPM P-R Int : 206 ms QRS Dur : 92 ms QT Int : 422 ms P-R-T Axes : 67 61 64 degrees QTcB Int : 395 ms Sinus bradycardia with sinus arrhythmia Otherwise normal ECG Confirmed by Emily Leyva ([id number]), mapping editor AFSANEH HERNANDEZ ([id number]) on 08/23/2024 7:18:03 AM Referred By: Emily Madrigal Confirmed By: Emily Leyva 08/23/2418 Date Emily Leyva MD CC: Dr. Candido Echevarria MD; Dr. Coy Nath DO; Dr. Emily Madrigal MD Signed Normal [facility] Basic Metabolic Profile (BMP )on 08-22-2024 BUN/CRE 31.2 RATIO High 10-20 [facility] Comment on above: Performed By: #### L 500.2500, L100.0500 ####[facility] [address] [place], [address] CA,Total 8.8 mg/dL Normal 8.5-10.1 [facility] Comment on above: Performed By: #### L 500.2500, L100.0500 ####[facility] [address] [place], [address] Chloride [Moles/Vol] 101 mmol/L Normal 98-107 [facility] Comment on above: Performed By: #### L 500.2500, L100.0500 ####[facility] [address] [place], [address] CO2 [Moles/Vol] 25.0 mmol/L Normal 21.0-32.0 [facility] Comment on above: Performed By: #### L 500.2500, L100.0500 ####[facility] [address] [place], [address] Creatinine [Mass/Vol] 0.80 mg/dL Normal 0.55-1.02 [facility] Comment on above: Result Comment: The validity of the calculated GFR GFRAA in patients over 70 years has not been determined. Clinical correlation is essential. Performed By: #### L 500.2500, L100.0500 ####[facility] [address] [place], [address] EST GFR - AA 87 mL/min Normal >60 [facility] Comment on above: Result Comment: Afri can Iranian GFR Calc Performed By: #### L 500.2500, L100.0500 ####[facility] [address] [place], [address] GAP 5 Normal 5-15 [facility] Comment on above: Performed By: #### L 500.2500, L100.0500 ####[facility] [address] [place], [address] GFR/1.73 sq M.predicted among non-blacks MDRD (S/P/Bld) [Vol rate/Area] 72 mL/min/{1.73_m2} Normal >60 [facility] Comment on above: Result Comment: Non- GFR Calc Performed By: #### L 500.2500, L100.0500 ####[facility] [address] [place], [address] Glucose [Mass/Vol] 107 mg/dL High 74-[address] [facility] Comment on above: Result Comment: Fast ing Glucose result from 100 to 125 mg/dL suggests IMPAIRED HOMEOSTASIS per A.D.A. criteria. Performed By: #### L 500.2500, L100.0500 ####[facility] [address] [place], [address] Potassium [Moles/Vol] 4.6 mmol/L Normal 3.5-5.1 [facility] Comment on above: Performed By: #### L 500.2500, L100.0500 ####[facility] [address] [place], [address] Sodium [Moles/Vol] 131 mmol/L Low 136-[address] [facility] Comment on above: Performed By: #### L 500.2500, L100.0500 ####[facility] [address] [place], [address] Urea nitrogen [Mass/Vol] 25 mg/dL High 7-18 [facility] Comment on above: Performed By: #### L 500.2500, L100.0500 ####[facility] [address] [place], [address] Blood urea nitrogen (BUN)/cr eatinine ratioOrdered By: Candido Echevarria on 08-22-2024 Urea nitrogen/Creatinine [Mass ratio] 31.2 mg/mg High 10-20 [facility] CBC-Complete Blood Cnt No Di ffon 08-22-2024 Erythrocyte distribution width (RBC) [Ratio] 14.0 % Normal 11.6-14.6 [facility] Comment on above: Performed By: #### L 500.2500, L100.0500 ####[facility] [address] [place], [address] Hematocrit (Bld) [Volume fraction] 37.3 % Normal 37-47 [facility] Comment on above: Performed By: #### L 500.2500, L100.0500 ####[facility] [address] [place], [address] Hemoglobin (Bld) [Mass/Vol] 12.1 g/dL Normal 12.0-15.0 [facility] Comment on above: Performed By: #### L 500.2500, L100.0500 ####[facility] [address] [place], [address] MCH (RBC) [Entitic mass] 29.7 pg Normal 27.0-32.0 [facility] Comment on above: Performed By: #### L 500.2500, L100.0500 ####[facility] [address] [place], [address] MCHC (RBC) [Mass/Vol] 32.4 g/dL Normal 32-36 [facility] Comment on above: Performed By: #### L 500.2500, L100.0500 ####[facility] [address] [place], [address] MCV (RBC) [Entitic vol] 91.4 fL Normal 81-99 [facility] Comment on above: Performed By: #### L 500.2500, L100.0500 ####[facility] [address] [place], [address] Platelet mean volume (Bld) [Entitic vol] 8.6 fL Normal 6.2-12.0 [facility] Comment on above: Performed By: #### L 500.2500, L100.0500 ####[facility] [address] [place], [address] Platelets (Bld) [#/Vol] 302 10*3/uL Normal 150-450 [facility] Comment on above: Performed By: #### L 500.2500, L100.0500 ####[facility] [address] [place], [address] RBC (Bld) [#/Vol] 4.08 10*6/uL Low 4.2-5.4 [facility] Comment on above: Performed By: #### L 500.2500, L100.0500 ####[facility] [address] [place], [address] RDW SD 46.9 fl High 35.1-43.9 [facility] Comment on above: Performed By: #### L 500.2500, L100.0500 ####[facility] [address] [place], [address] WBC (Bld) [#/Vol] 6.9 10*3/uL Normal 4.4-11.[address] [facility] Comment on above: Performed By: #### L 500.2500, L100.0500 ####[facility] [address] [place], [address] Carbon dioxide measurementOr dered By: Candido Echevarria on 08-22-2024 CO2 [Moles/Vol] 25.0 mmol/L 21.0-32.0 [facility] Chloride measurementOrdered By: Candido Echevarria on 08-22-2024 Chloride [Moles/Vol] 101 mmol/L 98-107 [facility] Estimated glomerular filtrat ion rate (GFR) AmericanOrdered By: Candido Echevarria on 08-22-2024 Estimated GFR (MDRD) Amer 87 mL/min >60 [facility] Comment on above: GFR Calc Glomerular filtration rate ( GFR) estimationOrdered By: Candido Echevarria on 08-22-2024 Estimated GFR (MDRD) Non-Af Amer 72 mL/min >60 [facility] Comment on above: Non- GFR Calc Glucose measurementOrdered B y: Candido Echevarria on 08-22-2024 Glucose [Mass/Vol] 107 mg/dL High 74-[address] [facility] Comment on above: Fasting Glucose resu lt from 100 to 125 mg/dL suggests IMPAIRED HOMEOSTASIS per A.D.A. criteria. MRSA screenOrdered By: Damir Madrigal on 08-22-2024 Nasal Screen MRSA/MSSA [facility] Potassium measurementOrdered By: Candido Echevarria on 08-22-2024 Potassium [Moles/Vol] 4.6 mmol/L 3.5-5.1 [facility] Serum anion gap measurementO rdered By: Candido Echevarria on 08-22-2024 Anion gap [Moles/Vol] 5 mmol/L 5-15 [facility] Serum or plasma calcium parag urement (mass/volume)Ordered By: Candido Echevarria on 08-22-2024 Calcium [Mass/Vol] 8.8 mg/dL 8.5-10.[address] [facility] Serum or plasma creatinine m easurement (mass/volume)Ordered By: Candido Echevarria on 08-22-2024 Creatinine [Mass/Vol] 0.80 mg/dL 0.55-1.02 [facility] Comment on above: The validity of the calculated GFR & GFRAA in patients over 70 years has not been determined. Clinical correlation is essential. Serum or plasma urea nitroge n measurement (mass/volume)Ordered By: Candido Echevarria on 08-22-2024 Urea nitrogen [Mass/Vol] 25 mg/dL High 7-18 [facility] Sodium levelOrdered By: Candido Echevarria on 08-22-2024 Sodium [Moles/Vol] 131 mmol/L Low 136-[address] [facility] Chest PA and Lateralon 07-27 Chest PA and Lateral [facility] Imaging Services [address] [place] [address] Chest PA and Lateral MR#: [id number] Acct: [id number] Name: MODESTA COOK Rep #: [id number] : 1940 F 83 From: Bonnie rubalcava MD PCP: Dr. Coy Nath, Status: REG CLI Study: Chest PA and Lateral Date of Exam: 07/27/24 Exam# [id number] Ordering Dr: Imtiaz Huffman PA [id number] HISTORY: cough. TECHNIQUE: XR Chest 2 Views. COMPARISON: 06/07/2023. FINDINGS: CARDIOMEDIASTINAL BORDERS: Cardiac silhouette within normal limits in size. Mediastinal contour also unchanged with calcification of the aortic knob is calcified left mediastinal lymph node. LUNGS: Calcified granuloma in the left upper lobe again seen. Chronic coarse interstitial markings in the periphery and bases of the lungs. PLEURA: No pleural effusion or pneumothorax seen. OSSEOUS STRUCTURES: Degenerative change. RAD/Chest PA and Lateral IMPRESSION: No acute cardiopulmonary process identified. Electronically Signed: Bonnie De La Cruz MD at 15:53 EST , CC: Dr. Coy Nath, DO; SWATI Bonds 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 Hop Picker: Signed Normal [facility] Internal Medicine Office Vis trista 07-27-2024 Internal Medicine Office Visit [facility] [address] [place] [address] [place] [address] OFFICE VISIT Date of Service: 07/27/24 MR#: [id number] Acct: [id number] Name: MODESTA COOK Rep #: [id number] : 1940 Provider: SWATI Bonds Age/Sex: 83/F Location[facility] Status: Signed Intake Vital Signs 07/04/24 14:58 07/27/24 12:33 Height 5 ft 3 in 5 ft 3 in Weight: 141 lb 141 lb BMI 25.0 25.0 BP 132/64 H 122/62 H Blood Pressure Location Rt brachial Lt brachial Position Sitting Sitting Respiration 16 16 Pulse 65 Pulse Source Monitor Temp 97.9 F Temp Source Temporal Pulse Oximetry (%) 97 Oxygen Delivery Method room air Intake Visit Reasons: CHRONIC COUGH Chief Complaint: cough Traffic Incident Management Manager Required: No Accompanied by: Daughter Is patient in pain?: No Allergies nitroglycerin Allergy (Mild, Verified 07/27/24 12:30) NEEDS FOLLOW-UP amiodarone Allergy (Verified 07/27/24 12:30) Rash chlorpheniramine (From Actifed Cold-Allergy) Adverse Reaction (Verified 07/27/24 12:30) Other phenylephrine (From Actifed Cold-Allergy) Adverse Reaction (Verified 07/27/24 12:30) Other pseudoephedrine (From Actifed Cold-Allergy) Adverse Reaction (Verified 07/27/24 12:30) Other triprolidine (From Actifed Cold-Allergy) Adverse Reaction (Verified 07/27/24 12:30) Other Medications ???Medication ???Instructions ???Recorded ???Confirmed ???Type aspirin 81 mg tablet,delayed 81 mg PO DAILY HEART 11/24/16 07/27/24 History release cetirizine 10 mg tablet (Zyrtec) 10 mg PO QHS allergy symptoms 06/07/23 07/27/24 History pantoprazole 40 mg tablet,delayed 40 mg PO DAILY #90 tabs 04/11/24 07/27/24 Rx release pravastatin 40 mg tablet 40 mg PO DAILY CHOLESTROL #90 tabs 04/11/24 07/27/24 Rx valsartan 160 mg tablet 160 mg PO .qd #90 tabs 04/11/24 07/27/24 Rx metoprolol succinate 25 mg 25 mg PO BID #180 tabs 04/26/24 07/27/24 Rx tablet,extended release 24 hr meloxicam 7.5 mg tablet 7.5 mg PO DAILY PRN pain #5 tabs 06/01/24 07/27/24 Rx amlodipine 10 mg tablet 10 mg PO DAILY BP #90 tabs 06/30/24 07/27/24 Rx nitrofurantoin macrocrystal 50 mg 50 mg PO QHS #90 caps 07/04/24 07/27/24 Rx capsule spironolactone 25 mg tablet 25 mg PO DAILY #90 tabs 07/07/24 07/27/24 Rx amoxicillin 875 mg tablet 875 mg PO BID #20 tabs 07/27/24 07/27/24 Rx Have you fallen in the past year?: No PFSH Medical History Non-smoker Chest pain Chronic pain Atrial fibrillation Shortness of breath NECK/BACK PAIN Cardiac murmur History of hemorrhoids Frequent UTI Frequent headaches Chronic back pain History of stomach ulcers Arthritis Hyperlipemia Hypertension History of pneumonia Surgical History History of tonsillectomy History of appendectomy History of hysterectomy History of back surgery History of foot surgery Family History Mother Diabetes Hypertension CVA (cerebral vascular accident) Father Myocardial infarction, Onset Age: 80 Brother Cancer Social History Smoking Status: Never smoker alcohol intake: never substance use type: does not use what type of physical activity do you participate in: walking frequency: daily HPI HPI Chief Complaint: cough Details: MODESTA COOK, is a 83 F who presents to the office today for cough. She states that she has been coughing for at least 2 months now. She states that initially she was having sinus issues which are very common for her. She states that she has continued to have the sinus issues and feels like her sinuses have got more full / congested. She states that cough is worse first thing in the AM and in the evening. She states that cough is sometimes productive a white phlegm but is minor. She has some runny nose which she states is worse in the mornings. She has not had any fevers, chills, or wheezing. She states that sometimes it hurts if she takes a deep enough breath. She has tried Robutissin and flonase some without much relief. She has a history of pneumonia. ROS Const Constitutional: No body ache, chills, excessive sweating, fatigue, fever(s), frequent falls, headache(s), snoring, weakness or change in appetite Eyes Eyes: No blurry vision, change in vision, eye pain or Light sensitivity ENT ENT: No abnormal hearing, ear or mastoid pain, tinnitus, nasal congestion, headache(s), neck pain or sore throat Resp Respiratory: Positive for cough and shortness of breath; No snoring or wheezing Cardio Cardiology: No chest pain at rest, chest pain with exertion, excessive sweating, dyspnea on exertion, lightheadedness, orthopnea or palpitations Gastro GI: No abdominal pain, (more content not included)... Normal [facility] Surgery Visit Reporton 07-04 Surgery Visit Report [facility] [address] [place] [address] OFFICE VISIT Date of Service: 07/04/24 MR#: [id number] Acct: [id number] Name: MODESTA COOK Rep #: [id number] : 1940 Provider: Dr. Emily quinteros MD Age/Sex: 83/F Location: [facility] Status: Signed Intake Vital Signs 06/15/24 14:59 07/04/24 14:58 Height 5 ft 3 in 5 ft 3 in Weight: 140 lb 141 lb BMI 24.7 25.0 BP 126/60 H 132/64 H Blood Pressure Location Lt brachial Rt brachial Position Sitting Sitting Respiration 17 16 Pulse 61 Pulse Source Monitor Temp 97.6 F L Temp Source Temporal Pulse Oximetry (%) 95 Oxygen Delivery Method room air Intake Visit Reasons: VENTRAL HERNIA Chief Complaint: ventral hernia Traffic Incident Management Manager Required: No Is patient in pain?: No Allergies nitroglycerin Allergy (Mild, Verified 07/04/24 14:59) NEEDS FOLLOW-UP amiodarone Allergy (Verified 07/04/24 14:59) Rash chlorpheniramine (From Actifed Cold-Allergy) Adverse Reaction (Verified 07/04/24 14:59) Other phenylephrine (From Actifed Cold-Allergy) Adverse Reaction (Verified 07/04/24 14:59) Other pseudoephedrine (From Actifed Cold-Allergy) Adverse Reaction (Verified 07/04/24 14:59) Other triprolidine (From Actifed Cold-Allergy) Adverse Reaction (Verified 07/04/24 14:59) Other Medications ???Medication ???Instructions ???Recorded ???Confirmed ???Type aspirin 81 mg tablet,delayed 81 mg PO DAILY HEART 11/24/16 07/04/24 History release cetirizine 10 mg tablet (Zyrtec) 10 mg PO QHS allergy symptoms 06/07/23 07/04/24 History pantoprazole 40 mg tablet,delayed 40 mg PO DAILY #90 tabs 04/11/24 07/04/24 Rx release pravastatin 40 mg tablet 40 mg PO DAILY CHOLESTROL #90 tabs 04/11/24 07/04/24 Rx spironolactone 25 mg tablet 25 mg PO DAILY #90 tabs 04/11/24 07/04/24 Rx valsartan 160 mg tablet 160 mg PO .qd #90 tabs 04/11/24 07/04/24 Rx metoprolol succinate 25 mg 25 mg PO BID #180 tabs 04/26/24 07/04/24 Rx tablet,extended release 24 hr meloxicam 7.5 mg tablet 7.5 mg PO DAILY PRN pain #5 tabs 06/01/24 07/04/24 Rx amlodipine 10 mg tablet 10 mg PO DAILY BP #90 tabs 06/30/24 07/04/24 Rx nitrofurantoin macrocrystal 50 mg 50 mg PO QHS #90 caps 07/04/24 07/04/24 Rx capsule Have you fallen in the past year?: No PFSH Medical History Non-smoker Chest pain Chronic pain Atrial fibrillation Shortness of breath NECK/BACK PAIN Cardiac murmur History of hemorrhoids Frequent UTI Frequent headaches Chronic back pain History of stomach ulcers Arthritis Hyperlipemia Hypertension History of pneumonia Surgical History History of tonsillectomy History of appendectomy History of hysterectomy History of back surgery History of foot surgery Family History Mother Diabetes Hypertension CVA (cerebral vascular accident) Father Myocardial infarction, Onset Age: 80 Brother Cancer Social History Smoking Status: Never smoker alcohol intake: never substance use type: does not use what type of physical activity do you participate in: walking frequency: daily HPI HPI HPI: Patient is a 83-year-old female who presents for newly diagnosed hernia. She presents today with her granddaughter. This finding was first noticed by CT imaging during recent ER visit on 06/01/2024. She had presented earlier to an urgent care facility due to complaints of hip pain and upon presenting to the emergency department was diagnosed with elevated liver function testing and a new left-sided spigelian hernia. Patient is not able to recall how this occurred. Patient notes that she is completed a gallbladder ultrasound following the findings of elevated liver function testing but this was completed within normal limits. Outside of her ER visit she shares that she has experienced a change in bowel habits for the past few months where she has experienced diarrhea as well as coffee grounds consistency bowel character. However, today she reports that her bowels are back to normal color and consistency. She notes that once in a while she will experience pressure in her lower abdomen diffusely when her bowels do not go down. Patient confirms that she has spent the last year outside of the hospital but recalls an extended illness beginning last May with evidence of pneumonia that was first diagnosed at urgent care in early May. She was administered and admitted to the hospital for a short while but then discharged on 05/26/2023. She was subsequently readmitted and underwent echocardiogram which showed no evidence of a pericardial effusion and new (more content not included)... Normal [facility] Hepatitis Panel Acuteon 11- COMMENT Comment Normal . [facility] Comment on above: Result Comment: Not infected with HCV unless early or acute infection is suspected (which may be delayed in an immunocompromised individual), or other evidence exists to indicate HCV infection. Performed at: [facility] [address] [id number] Manager Personal: Brennan Yi PhD, Phone: [phone] Performed By: #### L 3000.0375 #### [facility] [address] [place], [address] HEP B CORE,IgM Negative Normal Negative [facility] Comment on above: Performed By: #### L 3000.0375 #### [facility] [address] [place], [address] HEP B SURF AG Negative Normal Negative [facility] Comment on above: Performed By: #### L 3000.0375 #### [facility] [address] [place], [address] HEP C VIRUS AB Non-Reactive Normal Non Reactive [facility] Comment on above: Performed By: #### L 3000.0375 #### [facility] [address] [place], [address] HEPATITIS A-IgM Negative Normal Negative [facility] Comment on above: Result Comment: A ne gative anti-HAV IgM result suggests no recent or current HAV infection. Performed By: #### L 3000.0375 #### [facility] [address] [place], [address] Hepatitis Profile I Diagon 1 HEP B CORE,IgM Normal [facility] Comment on above: Result Comment: NOT ORDERABLE IN LC Performed By: #### L 500.3400, L3000.0350 ####[facility] [address] [place], [address] HEP B SURF AG Normal [facility] Comment on above: Result Comment: NOT ORDERABLE IN LC Performed By: #### L 500.3400, L3000.0350 ####[facility] [address] [place], [address] HEPATITIS A-IgM Normal [facility] Comment on above: Result Comment: NOT ORDERABLE IN LC Performed By: #### L 500.3400, L3000.0350 ####[facility] [address] [place], [address] HEPATITIS INTER Normal [facility] Comment on above: Result Comment: NOT ORDERABLE IN LC Performed By: #### L 500.3400, L3000.0350 ####[facility] [address] [place], [address] Internal Medicine Office Vis iton 06-15-2024 Internal Medicine Office Visit [facility] [address] [place] [address] [place] [address] OFFICE VISIT Date of Service: 06/15/24 MR#: [id number] Acct: [id number] Name: MODESTA COOK Rep #: [id number] : 1940 Provider: AGNIESZKA laurent Age/Sex: 83/F Location: [facility] Status: Signed Intake Vital Signs 04/26/24 11:37 06/01/24 15:50 06/15/24 14:59 Height 5 ft 3 in 5 ft 3 in 5 ft 3 in Weight: 140 lb BMI 24.7 BP 126/60 H Blood Pressure Location Lt brachial Position Sitting Respiration 17 Pulse 61 Pulse Source Monitor Temp 97.6 F L Temp Source Temporal Pulse Oximetry (%) 95 Oxygen Delivery Method room air Intake Visit Reasons: ACUTE PAIN IN LEFT HIP Chief Complaint: ACUTE PAIN IN LEFT HIP Is patient in pain?: No Allergies nitroglycerin Allergy (Mild, Verified 06/15/24 14:57) NEEDS FOLLOW-UP amiodarone Allergy (Verified 06/15/24 14:57) Rash chlorpheniramine (From Actifed Cold-Allergy) Adverse Reaction (Verified 06/15/24 14:57) Other phenylephrine (From Actifed Cold-Allergy) Adverse Reaction (Verified 06/15/24 14:57) Other pseudoephedrine (From Actifed Cold-Allergy) Adverse Reaction (Verified 06/15/24 14:57) Other triprolidine (From Actifed Cold-Allergy) Adverse Reaction (Verified 06/15/24 14:57) Other Medications ???Medication ???Instructions ???Recorded ???Confirmed ???Type aspirin 81 mg tablet,delayed 81 mg PO DAILY HEART 11/24/16 06/15/24 History release cetirizine 10 mg tablet (Zyrtec) 10 mg PO QHS allergy symptoms 06/07/23 06/15/24 History amlodipine 10 mg tablet 10 mg PO DAILY BP #90 tabs 12/28/23 06/15/24 Rx nitrofurantoin macrocrystal 50 mg 50 mg PO QHS #90 caps 04/06/24 06/15/24 Rx capsule pantoprazole 40 mg tablet,delayed 40 mg PO DAILY #90 tabs 04/11/24 06/15/24 Rx release pravastatin 40 mg tablet 40 mg PO DAILY CHOLESTROL #90 tabs 04/11/24 06/15/24 Rx spironolactone 25 mg tablet 25 mg PO DAILY #90 tabs 04/11/24 06/15/24 Rx valsartan 160 mg tablet 160 mg PO .qd #90 tabs 04/11/24 06/15/24 Rx metoprolol succinate 25 mg 25 mg PO BID #180 tabs 04/26/24 06/15/24 Rx tablet,extended release 24 hr hydrocodone-acetaminophen 5-325mg 1 tab PO Q6H PRN pain 2 days #6 06/01/24 Rx 5mg-325mg TABLETS meloxicam 7.5 mg tablet 7.5 mg PO DAILY PRN pain #5 tabs 06/01/24 06/15/24 Rx Have you fallen in the past year?: No PFSH Medical History Non-smoker Chest pain Chronic pain Atrial fibrillation Shortness of breath NECK/BACK PAIN Cardiac murmur History of hemorrhoids Frequent UTI Frequent headaches Chronic back pain History of stomach ulcers Arthritis Hyperlipemia Hypertension History of pneumonia Surgical History History of tonsillectomy History of appendectomy History of hysterectomy History of back surgery History of foot surgery Family History Mother Diabetes Hypertension CVA (cerebral vascular accident) Father Myocardial infarction, Onset Age: 80 Brother Cancer Social History Smoking Status: Never smoker alcohol intake: never substance use type: does not use what type of physical activity do you participate in: walking frequency: daily HPI HPI Chief Complaint: ACUTE PAIN IN LEFT HIP Details: MODESTA COOK, is a 83 F who presents to the office today for hospital follow-up appointment/to discuss left hip pain. Patient was initially evaluated at urgent care on 06/01/2024 with reports of left hip pain for several days. She also reported a lump to her left abdomen. She was referred to the emergency department for further evaluation. CT abdomen/pelvis was performed demonstrating left lower anterior abdominal wall hernia 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 Incidental findings including diffuse degenerative changes of the spine. Laboratory studies demonstrated stable CBC, elevated liver enzymes with normal bilirubin and unremarkable urinalysis. Due to elevated liver enzymes gallbladder ultrasound was obtained which demonstrated no gallstones or biliary dilatation, 1.5 cm hepatic cyst was present. Hernia contains some intra-abdominal fat and some colon but did not show any signs of strangulation or obstruction. Reported elevated liver enzymes. Patient states she has no known liver disease. She reports she takes 1 Tylenol PM daily. She does not drink alcohol. No history of hepatitis. She has vague abdominal discomfort at times but it is primarily located to the left lower quadrant. Per ER documentation this was discussed with general surgery who recommended outpatient follow-up. Today, patient reports that she has no back pain, no abdominal pain. She reports du (more content not included)... Normal [facility] Liver Profileon 06-15-2024 Albumin [Mass/Vol] 3.1 g/dL Low 3.2-5.[address] [facility] Comment on above: Performed By: #### L 500.3400, L3000.0350 #### [facility] [address] [place], [address] ALK P 170 U/L High 45-117 [facility] Comment on above: Performed By: #### L 500.3400, L3000.0350 #### [facility] [address] [place], [address] ALT [Catalytic activity/Vol] 379 U/L High 13-56 [facility] Comment on above: Performed By: #### L 500.3400, L3000.0350 #### [facility] [address] [place], [address] AST [Catalytic activity/Vol] 269 U/L High 15-37 [facility] Comment on above: Performed By: #### L 500.3400, L3000.0350 #### [facility] [address] [place], [address] Bilirubin [Mass/Vol] 0.40 mg/dL Normal 0.20-1.00 [facility] Comment on above: Result Comment: For patients on eltrombopag therapy, use of Dimension [place] TBIL is not recommended. Performed By: #### L 500.3400, L3000.0350 #### [facility] [address] [place], [address] Bilirubin.direct [Mass/Vol] 0.20 mg/dL Normal 0.00-0.30 [facility] Comment on above: Performed By: #### L 500.3400, L3000.0350 #### [facility] [address] [place], [address] Globulin (S) [Mass/Vol] 4.8 g/dL High 2.2-4.2 [facility] Comment on above: Performed By: #### L 500.3400, L3000.0350 #### [facility] [address] [place], [address] T PROT 7.9 g/dL Normal 6.4-8.2 [facility] Comment on above: Performed By: #### L 500.3400, L3000.0350 #### [facility] [address] [place], [address] Abdomen/Pelvis W IV Cont ONL Yon 06-01-2024 Abdomen/Pelvis W IV Cont ONLY [facility] Services [address] [place] [address] Abdomen/Pelvis W IV Cont ONLY MR#: [id number] Acct: [id number] Name: MODESTA COOK Rep #: [id number] : 1940 F 83 From: Joni nunez MD PCP: Dr. Coy Nath, DO Status: REG ER Study: Abdomen/Pelvis W IV Cont ONLY Date of Exam: Exam# [id number] Ordering Dr: Reinier Toney MD [id number] INDICATION: llq pain EXAMINATION: CT Abdomen And Pelvis W/ Contrast Injection TECHNIQUE: Helically acquired images were obtained of the abdomen and pelvis after IV contrast. A radiation dose optimization technique was used for this scan. IV Contrast dosage and agent: IV 100mL Isovue-300 Oral contrast: None. COMPARISON: None. FINDINGS: Visualized lung bases: Bibasilar atelectasis. Liver: Scattered hepatic cysts. Gallbladder: Unremarkable Spleen: Unremarkable Pancreas: Unremarkable Adrenal Glands: Unremarkable Kidneys: Bilateral simple renal cysts. Vasculature: Moderate aortoiliac atherosclerotic disease. GI Tract: Unremarkable Lymphadenopathy: None Peritoneum: No ascites. Bladder: Unremarkable Reproductive organs: Status post hysterectomy. Bones/Soft tissues: There are diffuse degenerative changes of the spine. There is a left lower anterior abdominal wall hernia containing fat and a short segment of distal descending colon. 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 Electronically Signed: Joni Glaser MD at 18:14 EDT , CC: Dr. Reinier Toney MD; Dr. Coy Nath DO 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 Hop Picker: Signed Normal [facility] CBC W/Diff, Automatedon 05-16 Absolute Lymph 3.17 X10 3/uL Normal 0.83-4.51 [facility] Comment on above: Performed By: #### L 500.4050, L100.0100 ####[facility] [address] [place], [address] Absolute Neut 4.9 X10 3/uL Normal 2.0-7.7 [facility] Comment on above: Performed By: #### L 500.4050, L100.0100 ####[facility] [address] [place], [address] Basophils/100 WBC (Bld) 0.9 % Normal 0-1 [facility] Comment on above: Performed By: #### L 500.4050, L100.0100 ####[facility] [address] [place], [address] Eosinophils/100 WBC (Bld) 2.4 % Normal 0-5 [facility] Comment on above: Performed By: #### L 500.4050, L100.0100 ####[facility] [address] [place], [address] Erythrocyte distribution width (RBC) [Ratio] 14.3 % Normal 11.6-14.6 [facility] Comment on above: Performed By: #### L 500.4050, L100.0100 ####[facility] [address] [place], [address] Hematocrit (Bld) [Volume fraction] 42.8 % Normal 37-47 [facility] Comment on above: Performed By: #### L 500.4050, L100.0100 ####[facility] [address] [place], [address] Hemoglobin (Bld) [Mass/Vol] 13.6 g/dL Normal 12.0-15.0 [facility] Comment on above: Performed By: #### L 500.4050, L100.0100 ####[facility] [address] [place], [address] IG% 0.300 Normal 0.0-0.9 [facility] Comment on above: Result Comment: IG% - Immature Granulocytes (promyelocytes, myelocytes and metamyelocytes) > 1% indicates that a LEFT SHIFT is Present. Performed By: #### L 500.4050, L100.0100 ####[facility] [address] [place], [address] Lymphocytes/100 WBC (Bld) 33.9 % Normal 19-41 [facility] Comment on above: Performed By: #### L 500.4050, L100.0100 ####[facility] [address] [place], [address] MCH (RBC) [Entitic mass] 28.4 pg Normal 27.0-32.0 [facility] Comment on above: Performed By: #### L 500.4050, L100.0100 ####[facility] [address] [place], [address] MCHC (RBC) [Mass/Vol] 31.8 g/dL Low 32-36 [facility] Comment on above: Performed By: #### L 500.4050, L100.0100 ####[facility] [address] [place], [address] MCV (RBC) [Entitic vol] 89.4 fL Normal 81-99 [facility] Comment on above: Performed By: #### L 500.4050, L100.0100 ####[facility] [address] [place], [address] Monocytes/100 WBC (Bld) 9.8 % Normal 0-10 [facility] Comment on above: Performed By: #### L 500.4050, L100.0100 ####[facility] [address] [place], [address] Neutrophils/100 WBC (Bld) 52.7 % Normal 47-70 [facility] Comment on above: Performed By: #### L 500.4050, L100.0100 ####[facility] [address] [place], [address] Nucleated RBC (Bld) [#/Vol] 0 10*3/uL Normal 0-5 [facility] Comment on above: Performed By: #### L 500.4050, L100.0100 ####[facility] [address] [place], [address] Platelet mean volume (Bld) [Entitic vol] 9.3 fL Normal 6.2-12.0 [facility] Comment on above: Performed By: #### L 500.4050, L100.0100 ####[facility] [address] [place], [address] Platelets (Bld) [#/Vol] 315 10*3/uL Normal 150-450 [facility] Comment on above: Performed By: #### L 500.4050, L100.0100 ####[facility] [address] [place], [address] RBC (Bld) [#/Vol] 4.79 10*6/uL Normal 4.2-5.4 [facility] Comment on above: Performed By: #### L 500.4050, L100.0100 ####[facility] [address] [place], [address] RDW SD 47.2 fl High 35.1-43.9 [facility] Comment on above: Performed By: #### L 500.4050, L100.0100 ####[facility] [address] [place], [address] WBC (Bld) [#/Vol] 9.4 10*3/uL Normal 4.4-11.[address] [facility] Comment on above: Performed By: #### L 500.4050, L100.0100 ####[facility] [address] [place], [address] Comprehensive Metabolic Prof ilon 06-01-2024 Albumin [Mass/Vol] 3.4 g/dL Normal 3.2-5.[address] [facility] Comment on above: Performed By: #### L 500.4050, L100.0100 ####[facility] [address] [place], [address] Albumin/Globulin [Mass ratio] 0.7 {ratio} Low 0.9-2.4 [facility] Comment on above: Performed By: #### L 500.4050, L100.0100 ####[facility] [address] [place], [address] ALK P 196 U/L High 45-117 [facility] Comment on above: Performed By: #### L 500.4050, L100.0100 ####[facility] [address] [place], [address] ALT [Catalytic activity/Vol] 510 U/L High 13-56 [facility] Comment on above: Performed By: #### L 500.4050, L100.0100 ####[facility] [address] [place], [address] AST [Catalytic activity/Vol] 344 U/L High 15-37 [facility] Comment on above: Performed By: #### L 500.4050, L100.0100 ####[facility] [address] [place], [address] Bilirubin [Mass/Vol] 0.40 mg/dL Normal 0.20-1.00 [facility] Comment on above: Result Comment: For patients on eltrombopag therapy, use of Dimension [place] TBIL is not recommended. Performed By: #### L 500.4050, L100.0100 ####[facility] [address] [place], [address] BUN/CRE 47.8 RATIO High 10-20 [facility] Comment on above: Performed By: #### L 500.4050, L100.0100 ####[facility] [address] [place], [address] CA,Total 9.4 mg/dL Normal 8.5-10.1 [facility] Comment on above: Performed By: #### L 500.4050, L100.0100 ####[facility] [address] [place], [address] Chloride [Moles/Vol] 104 mmol/L Normal 98-107 [facility] Comment on above: Performed By: #### L 500.4050, L100.0100 ####[facility] [address] [place], [address] CO2 [Moles/Vol] 27.0 mmol/L Normal 21.0-32.0 [facility] Comment on above: Performed By: #### L 500.4050, L100.0100 ####[facility] [address] [place], [address] Creatinine [Mass/Vol] 0.71 mg/dL Normal 0.55-1.02 [facility] Comment on above: Result Comment: The validity of the calculated GFR GFRAA in patients over 70 years has not been determined. Clinical correlation is essential. Performed By: #### L 500.4050, L100.0100 ####[facility] [address] [place], [address] EST GFR - AA 101 mL/min Normal >60 [facility] Comment on above: Result Comment: Afri can Iranian GFR Calc Performed By: #### L 500.4050, L100.0100 ####[facility] [address] [place], [address] GAP 4 Low 5-15 [facility] Comment on above: Performed By: #### L 500.4050, L100.0100 ####[facility] [address] [place], [address] GFR/1.73 sq M.predicted among non-blacks MDRD (S/P/Bld) [Vol rate/Area] 83 mL/min/{1.73_m2} Normal >60 [facility] Comment on above: Result Comment: Non- GFR Calc Performed By: #### L 500.4050, L100.0100 ####[facility] [address] [place], [address] Globulin (S) [Mass/Vol] 4.8 g/dL High 2.2-4.2 [facility] Comment on above: Performed By: #### L 500.4050, L100.0100 ####[facility] [address] [place], [address] Glucose [Mass/Vol] 103 mg/dL Normal 74-[address] [facility] Comment on above: Result Comment: Fast ing Glucose result from 100 to 125 mg/dL suggests IMPAIRED HOMEOSTASIS per A.D.A. criteria. Performed By: #### L 500.4050, L100.0100 ####[facility] [address] [place], [address] Potassium [Moles/Vol] 4.7 mmol/L Normal 3.5-5.1 [facility] Comment on above: Performed By: #### L 500.4050, L100.0100 ####[facility] [address] [place], [address] Sodium [Moles/Vol] 135 mmol/L Low 136-[address] [facility] Comment on above: Performed By: #### L 500.4050, L100.0100 ####[facility] [address] [place], [address] T PROT 8.2 g/dL Normal 6.4-8.2 [facility] Comment on above: Performed By: #### L 500.4050, L100.0100 ####[facility] [address] [place], [address] Urea nitrogen [Mass/Vol] 34 mg/dL High 7-18 [facility] Comment on above: Performed By: #### L 500.4050, L100.0100 ####[facility] [address] [place], [address] Emergency Department Summary on 06-01-2024 Emergency Department Summary [facility] Medical Records Department [address] [place] [address] Emergency Department Summary 06/01/24 MR#: [id number] Acct: [id number] Name: MODESTA COOK Rep #: [id number] : 1940 83 From: Reinier Toney MD PCP: Dr. Coy Nath, DO Status:REG ER Location: ED HPI History of Present Illness Chief Complaint: Lower Extremity Injury Informant: patient and family Narrative Narrative: 83-year-old female states she was sent from urgent care because of her back pain. She has had pain in her left low back for about the past week it has been off-and-on mostly when she tried to does things especially getting out of bed or sitting position. It is not there all the time. If she is resting is not bothering her. She denies any pain radiating down her legs or numbness or weakness. No bowel or bladder dysfunction. Family and patient are seen at urgent care center here because of a lump in her abdomen it has been bothering her, she does not know how long it has been hurting, however they obtained x-rays of her left hip, she has no groin pain, and they were normal and they were concerned that the lump in her abdomen and her back pain were linked and advised her to come to the ER. She states at times at night she detects some soreness in her left lower quadrant, she denies any nausea, vomiting, or trouble with bowel movements or urination. They are concerned because a year ago she had some type of internal bleeding in her belly that required a transfer to [facility] and clips in what ever structure was bleeding. It was in this region of the abdomen. [facility] Medical History Non-smoker Chest pain Chronic pain Atrial fibrillation Shortness of breath NECK/BACK PAIN Cardiac murmur History of hemorrhoids Frequent UTI Frequent headaches Chronic back pain History of stomach ulcers Arthritis Hyperlipemia Hypertension History of pneumonia Home Medications ???Medication ???Instructions ???Recorded ???Last Taken ???Type aspirin 81 mg tablet,delayed 81 mg PO DAILY HEART 11/24/16 Unknown History release cetirizine 10 mg tablet (Zyrtec) 10 mg PO QHS allergy symptoms 06/07/23 Unknown History amlodipine 10 mg tablet 10 mg PO DAILY BP #90 tabs 12/28/23 Unknown Rx nitrofurantoin macrocrystal 50 mg 50 mg PO QHS #90 caps 04/06/24 Unknown Rx capsule pantoprazole 40 mg tablet,delayed 40 mg PO DAILY #90 tabs 04/11/24 Unknown Rx release pravastatin 40 mg tablet 40 mg PO DAILY CHOLESTROL #90 tabs 04/11/24 Unknown Rx spironolactone 25 mg tablet 25 mg PO DAILY #90 tabs 04/11/24 Unknown Rx valsartan 160 mg tablet 160 mg PO .qd #90 tabs 04/11/24 Unknown Rx metoprolol succinate 25 mg 25 mg PO BID #180 tabs 04/26/24 Unknown Rx tablet,extended release 24 hr hydrocodone-acetaminophen 5-325mg 1 tab PO Q6H PRN pain 2 days #6 06/01/24 Unknown Rx 5mg-325mg TABLETS meloxicam 7.5 mg tablet 7.5 mg PO DAILY PRN pain #5 tabs 06/01/24 Unknown Rx Allergy/AdvReac Type Severity Reaction Status Date / Time nitroglycerin Allergy Mild NEEDS Verified 06/01/24 15:52 FOLLOW-UP amiodarone Allergy Rash Verified 06/01/24 15:52 chlorpheniramine (From AdvReac Other Verified 06/01/24 15:52 Actifed Cold-Allergy) phenylephrine (From Actifed AdvReac Other Verified 06/01/24 15:52 Cold-Allergy) pseudoephedrine (From AdvReac Other Verified 06/01/24 15:52 Actifed Cold-Allergy) triprolidine (From Actifed AdvReac Other Verified 06/01/24 15:52 Cold-Allergy) Family History Mother Diabetes Hypertension CVA (cerebral vascular accident) Father Myocardial infarction, Onset Age: 80 Brother Cancer Surgical History History of tonsillectomy History of appendectomy History of hysterectomy History of back surgery History of foot surgery Social History Smoking Status: Never smoker alcohol intake: never substance use type: does not use what type of physical activity do you participate in: walking frequency: daily ROS ROS ED Constitutional Constitutional ED: Denies chills or fever(s) Eyes Eyes: Denies change in vision or diplopia ENT ENT ED: Denies rhinorrhea or sore throat Cardiovascular Cardiovascular: Denies chest pain or palpitations Respiratory/Chest Respiratory/Chest: Denies cough or dyspnea Gastrointestinal Gastrointestinal: Reports abdominal pain; Denies diarrhea, nausea or vomiting Genitourinary Genitourinary ED: Denies dysuria or hematuria Musculoskeletal Musculoskeletal: Reports back pain; Denies neck pain Integumentary Denies abscess or rash Neurologic Neurologic: Denies headach (more content not included)... Normal [facility] Gallbladderon 06-01-2024 Gallbladder [facility] Imaging Services [address] [place] [address] [id number] Gallbladder MR#: [id number] Acct: [id number] Name: MODESTA COOK Rep #: [id number] : 1940 F 83 From: Reinier Carroll MD PCP: Dr. Coy Nath, DO Status: REG ER Study: Gallbladder Date of Exam: 06/01/24 Exam# [id number] Ordering Dr: Reinier Toney MD [id number] STUDY: ABDOMINAL ULTRASOUND - RIGHT UPPER QUADRANT REASON FOR VISIT: Female, 83 years old Elevated liver enz, pain TECHNIQUE: Ultrasound evaluation of the right upper quadrant was performed with real-time and static lipscomb-scale imaging. TECHNICAL QUALITY: Adequate. COMPARISON: None. FINDINGS: Liver: The liver measures 11.1 cm. There is normal echogenicity of the liver. The bile ducts are within normal limits. There is hepatic color flow. The direction of portal flow is hepatopetal. There is a 1.5 cm cyst. Gallbladder: Normal distended gallbladder. The gallbladder wall measures 2 mm. There is a negative sonographic Lopez''s sign. There is no pericholecystic fluid. There are no gallstones. Common Bile Duct (C.B.D.): The common bile duct measures mm. Pancreas: Normal size of the head, body and tail of the pancreas. There is normal echogenicity of the pancreas. There is no demonstrated pancreatic mass or cyst. Right Kidney: Normal size of the right kidney. The right kidney measures 10.3 cm. Normal renal cortex. The right cortex measures 1.4 cm. There is 5.0 cm cyst. There is no right hydronephrosis. US/Gallbladder IMPRESSION: No gallstones or biliary dilatation. Hepatic and renal cysts. Electronically Signed: Reinier Carroll MD at 19:42 EDT , CC: Dr. Reinier Toney MD; Dr. Coy Nath DO 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 Hop Picker: Signed Normal [facility] HIP, UNI W/ Pelvis 2-3 Views on 06-01-2024 HIP, UNI W/ Pelvis 2-3 Views [facility] Services [address] [place] [address] HIP, UNI W/ Pelvis 2-3 Views MR#: [id number] Acct: [id number] Name: MODESTA COOK Rep #: [id number] : 1940 F 83 From: Joni nunez MD PCP: Dr. Coy Nath DO Status: REG CLI Study: HIP, UNI W/ Pelvis 2-3 Views Date of Exam: Exam# [id number] Ordering Dr: Brock Wynn NPC [id number] INDICATION: hip pain EXAMINATION/TECHNIQUE: X-RAY - LEFT XR Hip Unilateral with Pelvis when performed; 2-3 Views COMPARISON: None. FINDINGS: No acute fracture or malalignment. No blastic or lytic lesions. Moderate degenerative changes. The soft tissues are unremarkable. RAD/HIP, UNI W/ Pelvis 2-3 Views IMPRESSION: No acute radiographic abnormalities. Electronically Signed: Joni Glaser MD at 16:07 EDT , CC: AGNIESZKA Wynn; Dr. Coy Nath DO 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 Hop Picker: Signed Normal [facility] Urgent Care Visit Reporton 1 Urgent Care Visit Report [facility] [address], [address] [place] [address] OFFICE VISIT Date of Service: 06/01/24 MR#: [id number] Acct: [id number] Name: MODESTA COOK Rep #: [id number] : 1940 Provider: AGNIESZKA sevilla Age/Sex: 83/F Location: [facility] Status: Signed Intake Vital Signs 04/26/24 11:37 06/01/24 14:31 Height 5 ft 3 in Weight: 140 lb BMI 24.7 BP 146/66 H 140/60 H Blood Pressure Location Lt brachial Lt brachial Position Sitting Sitting Respiration 17 16 Pulse 63 54 L Pulse Source Monitor NIBP Temp 97.9 F 98.0 F Temp Source Temporal Oral Pulse Oximetry (%) 97 97 Oxygen Delivery Method room air room air Intake Visit Reasons: PAIN IN L HIP Chief Complaint: left hip pain Traffic Incident Management Manager Required: No Is patient in pain?: Yes Allergies nitroglycerin Allergy (Mild, Verified 06/01/24 14:31) NEEDS FOLLOW-UP amiodarone Allergy (Verified 06/01/24 14:31) Rash chlorpheniramine (From Actifed Cold-Allergy) Adverse Reaction (Verified 06/01/24 14:31) Other phenylephrine (From Actifed Cold-Allergy) Adverse Reaction (Verified 06/01/24 14:31) Other pseudoephedrine (From Actifed Cold-Allergy) Adverse Reaction (Verified 06/01/24 14:31) Other triprolidine (From Actifed Cold-Allergy) Adverse Reaction (Verified 06/01/24 14:31) Other Is last menstrual period known: No Post menopausal: Yes Patient : No Have you fallen in the past year?: No Nurse's Note: left hip pain x several days without resolve. denies fall, injury, trauma, hx issue. pt also reports lump to left abdomen as well as needing assistance getting out of bed d/t hip pain. PFS Medical History Non-smoker Chest pain Chronic pain Atrial fibrillation Shortness of breath NECK/BACK PAIN Cardiac murmur History of hemorrhoids Frequent UTI Frequent headaches Chronic back pain History of stomach ulcers Arthritis Hyperlipemia Hypertension History of pneumonia Surgical History History of tonsillectomy History of appendectomy History of hysterectomy History of back surgery History of foot surgery Family History Mother Diabetes Hypertension CVA (cerebral vascular accident) Father Myocardial infarction, Onset Age: 80 Brother Cancer Social History Smoking Status: Never smoker alcohol intake: never substance use type: does not use what type of physical activity do you participate in: walking frequency: daily HPI HPI Chief Complaint: left hip pain Details: MODESTA COOK, is a 83 F who presents to the office today for concerns regarding left hip pain. She acknowledges left hip pain without injury for several days. She denies previous surgery or history. She acknowledges a lump to left abdomen. She states she needs assistance ambulating. ROS Const Constitutional: No chills, fatigue, fever(s) or weakness Resp Respiratory: No shortness of breath Cardio Cardiology: No chest pain with exertion Gastro GI: No incontinent of stools Genitourinary-Female: No urinary incontinence Musc Musculoskeletal: Positive for joint pain (left hip) and back pain (chronic- unchanged over the last week); No deformity, muscle weakness, numbness (denies saddle anesthesia) or tingling (denies saddle anesthesia) Neuro Neurology: No weakness, numbness (denies saddle anesthesia) or tingling (denies saddle anesthesia) Endo Endocrine: No fatigue Kiet/Lymp Hematologic/Lymphatic: Positive for other (Denies cancer history or trauma. Denies IV drug use) Exam Const General: cooperative, healthy appearing, comfortable and no acute distress Chest Chest palpation inspection: normal inspection of the chest Resp Effort Inspection: normal respiratory effort, able to speak in complete sentences, symmetric chest movement, not labored, no retractions and no use of accessory muscles Auscultation: Bilateral: Clear to Auscultation Cardio Rate: other Rhythm: regular rhythm Heart Sounds: S1 normal and S2 normal GI Palpation: tender (Left lower pubic/left lower quadrant region, hard) Musc Musculoskeletal: Yes joint tenderness and decreased range of motion; No joint redness, joint warmth, spinal deformity or muscle weakness Neuro General: patient alert, patient awake and patient oriented x3 Coding Level of Care Code Off vis,est,level 2 Diagnoses Pain of left hip M25.552 Laterality: left Assessment and Plan Assessment and Plan (1) Hip pain: Status: Acute Qualifiers: Laterality: left Qualified Code(s): M25.552 - Pain in left hip Plan: Her left hip x-ray is still pending. On phys (more content not included)... Normal [facility] Urinalysis, Completeon 06-01 BACTERIA RARE Normal None Seen [facility] Comment on above: Order Comment: GISELLE CTOR TO SPECIFY Performed By: #### L 400.0001 ####[facility] [address] [place], [address] EPI,RENAL 0-5 SEEN Normal 0-5 [facility] Comment on above: Order Comment: GISELLE CTOR TO SPECIFY Performed By: #### L 400.0001 ####[facility] [address] [place], [address] RBC 0 SEEN Normal 0-5 [facility] Comment on above: Order Comment: GISELLE CTOR TO SPECIFY Performed By: #### L 400.0001 ####[facility] [address] [place], [address] WBC 0-5 SEEN Normal 0-5 [facility] Comment on above: Order Comment: GISELLE CTOR TO SPECIFY Performed By: #### L 400.0001 ####[facility] [address] [place], [address] EPI,SQUAMOUS 0-5 SEEN Normal 5-10 [facility] Comment on above: Order Comment: GISELLE CTOR TO SPECIFY Performed By: #### L 400.0001 ####[facility] [address] [place], [address] Mucus Ql (Urine sed) 0 SEEN Normal [facility] Comment on above: Order Comment: GISELLE CTOR TO SPECIFY Performed By: #### L 400.0001 ####[facility] [address] [place], [address] Absolute lymphocyte countOrd ered By: Coy Nath on 09-29-2023 Lymphocytes Auto (Unsp spec) [#/Vol] 3.08 10*3/uL 0.83-4.51 [facility] Automated lymphocyte count a s percentage of total leukocytesOrdered By: Coy Nath on 09-29-2023 Lymphocytes/100 WBC Auto (Unsp spec) 35.0 % 19-41 [facility] Basophil percentageOrdered B y: Coy Nath on 09-29-2023 Basophils/100 WBC (Bld) 0.8 % 0-1 [facility] Chloride [Moles/Vol] 106 mmol/L 98-107 [facility] Eosinophils/100 WBC (Bld) 3.2 % 0-5 [facility] Glucose [Mass/Vol] 103 mg/dL 74-[address] [facility] Comment on above: Fasting Glucose resu lt from 100 to 125 mg/dL suggests IMPAIRED HOMEOSTASIS per A.D.A. criteria. Hemoglobin (Bld) [Mass/Vol] 11.8 g/dL 12.0-15.0 [facility] Monocytes/100 WBC (Bld) 8.6 % 0-10 [facility] Neutrophils (Bld) [#/Vol] 4.6 10*3/uL 2.0-7.7 [facility] Neutrophils/100 WBC (Bld) 52.2 % 47-70 [facility] Potassium [Moles/Vol] 4.1 mmol/L 3.5-5.1 [facility] Sodium [Moles/Vol] 136 mmol/L 136-[address] [facility] WBC (Bld) [#/Vol] 8.8 10*3/uL 4.4-11.[address] [facility] Determination of erythrocyte mean corpuscular volume (MCV)Ordered By: Coy Nath on 09-29-2023 MCV (RBC) [Entitic vol] 83.7 fL 81-99 [facility] Erythrocyte distribution wid th ratioOrdered By: Coy Nath on 09-29-2023 Erythrocyte distribution width (RBC) [Ratio] 15.9 % 11.6-14.6 [facility] Erythrocyte distribution wid th standard deviationOrdered By: Coy Naht on 09-29-2023 Erythrocyte distribution width (RBC) [Entitic vol] 48.7 fL 35.1-43.9 [facility] Hematocrit Auto (Bld) [Volum e fraction]Ordered By: Coy Nath on 09-29-2023 Hematocrit (Bld) [Volume fraction] 37.5 % 37-47 [facility] Immature granulocytes/100 WB C Auto (Bld)Ordered By: Coy Nath on 09-29-2023 Immature granulocytes/100 WBC (Bld) 0.200 % 0.0-0.9 [facility] Comment on above: IG% - Immature Granu locytes (promyelocytes, myelocytes and metamyelocytes) > 1% indicates that a LEFT SHIFT is Present. Laboratory - Chemistry and C hemistry - challengeOrdered By: Coy Nath on 09-29-2023 CO2 [Moles/Vol] 26.0 mmol/L 21.0-32.0 [facility] Urea nitrogen/Creatinine [Mass ratio] 44.7 mg/mg 10-20 [facility] Laboratory - Hematology and Cell countsOrdered By: Coy Nath on 09-29-2023 MCH (RBC) [Entitic mass] 26.3 pg 27.0-32.0 [facility] MCHC (RBC) [Mass/Vol] 31.5 g/dL 32-36 [facility] Nucleated RBC/100 WBC (Bld) [Ratio] 0 % 0-5 [facility] Platelet mean volume (Bld) [Entitic vol] 9.3 fL 6.2-12.0 [facility] Platelets (Bld) [#/Vol] 373 10*3/uL 150-450 [facility] No Panel InformationOrdered By: Coy Nath on 09-29-2023 Estimated GFR (MDRD) Amer 96 mL/min >60 [facility] Comment on above: GFR Calc Estimated GFR (MDRD) Non-Af Amer 80 mL/min >60 [facility] Comment on above: Non- GFR Calc RBC Auto (Bld) [#/Vol]Ordere d By: Coy Nath on 09-29-2023 RBC (Bld) [#/Vol] 4.48 10*6/uL 4.2-5.4 [facility] Serum or plasma calcium parag urement (mass/volume)Ordered By: Coy Nath on 09-29-2023 Calcium [Mass/Vol] 9.6 mg/dL 8.5-10.[address] [facility] Serum or plasma creatinine m easurement (mass/volume)Ordered By: Coy Nath on 09-29-2023 Creatinine [Mass/Vol] 0.74 mg/dL 0.55-1.02 [facility] Comment on above: The validity of the calculated GFR & GFRAA in patients over 70 years has not been determined. Clinical correlation is essential. Serum or plasma urea nitroge n measurement (mass/volume)Ordered By: Coy Nath on 09-29-2023 Urea nitrogen [Mass/Vol] 33 mg/dL 7-18 [facility] Thin prep Papanicolaou smear with manual screeningOrdered By: Coy Nath on 09-29-2023 Thin prep Papanicolaou smear with manual screening 4 5-15 [facility] Laboratory - CoagulationOrde red By: Coy Nath on 08-30-2023 PT Coag (PPP) [Time] 21.0 s 11.7-14.9 [facility] Whole blood international no rmalized ratio (INR)Ordered By: Coy Nath on 08-30-2023 INR Coag (Bld) [Relative time] 1.8 {INR} [facility] INR in Blood by Coagulation assayOrdered By: Coy Nath on 07-21-2023 INR Coag (Bld) [Relative time] 2.0 {INR} [facility] Laboratory - CoagulationOrde red By: Coy Nath on 07-21-2023 PT Coag (PPP) [Time] 22.9 s 11.7-14.9 [facility] Absolute lymphocyte countOrd ered By: Jhonny Marr on 07-09-2023 Lymphocytes Auto (Unsp spec) [#/Vol] 1.82 10*3/uL 0.83-4.51 [facility] Basophil percentageOrdered B y: Jhonny Marr on 07-09-2023 Basophils/100 WBC (Bld) 1.1 % 0-1 [facility] Chloride [Moles/Vol] 102 mmol/L 98-107 [facility] Eosinophils/100 WBC (Bld) 0.8 % 0-5 [facility] Glucose [Mass/Vol] 140 mg/dL 74-[address] [facility] Comment on above: Fasting Glucose resu lt greater than or equal to 126 mg/dL suggests DIABETES MELLITUS per A.D.A. criteria. Neutrophils (Bld) [#/Vol] 9.7 10*3/uL 2.0-7.7 [facility] Neutrophils/100 WBC (Bld) 73.1 % 47-70 [facility] Potassium [Moles/Vol] 3.8 mmol/L 3.5-5.1 [facility] Sodium [Moles/Vol] 134 mmol/L 136-[address] [facility] WBC (Bld) [#/Vol] 13.3 10*3/uL 4.4-11.0 [facility] Blood erythrocytes count (nu mber/volume)Ordered By: Jhonny Marr on 07-09-2023 RBC (Bld) [#/Vol] 3.79 10*6/uL 4.2-5.4 [facility] Blood hemoglobin measurement (mass/volume)Ordered By: Jhonny Marr on 07-09-2023 Hemoglobin (Bld) [Mass/Vol] 10.0 g/dL 12.0-15.0 [facility] Blood lymphocytes/100 leukoc ytesOrdered By: Jhonnyamerica Marr on 07-09-2023 Lymphocytes/100 WBC (Bld) 13.7 % 19-41 [facility] Blood metamyelocytes/100 ramon kocytesOrdered By: Jhonny Marr on 07-09-2023 Metamyelocytes/100 WBC (Bld) 13.3 % 0-1 [facility] Blood monocytes/100 leukocyt esOrdered By: Jhonnyamerica Marr on 07-09-2023 Monocytes/100 WBC (Bld) 9.0 % 0-10 [facility] Blood platelet adequacy dete ction by light microscopyOrdered By: Jhonny Marr on 07-09-2023 Platelets LM Ql (Bld) MKD INC ADEQ [facility] Blood platelet mean volumeOr dered By: Jhonny Marr on 07-09-2023 Platelet mean volume (Bld) [Entitic vol] 8.3 fL 6.2-12.0 [facility] Determination of erythrocyte mean corpuscular volume (MCV)Ordered By: Jhonny Marr on 07-09-2023 MCV (RBC) [Entitic vol] 87.6 fL 81-99 [facility] Hematocrit Auto (Bld) [Volum e fraction]Ordered By: Jhonny Marr on 07-09-2023 Hematocrit (Bld) [Volume fraction] 33.2 % 37-47 [facility] INR in Blood by Coagulation assayOrdered By: Jhonny Marr on 07-09-2023 INR Coag (Bld) [Relative time] 1.7 {INR} [facility] Laboratory - Chemistry and C hemistry - challengeOrdered By: Jhonny Marr on 07-09-2023 CO2 [Moles/Vol] 26.0 mmol/L 21.0-32.0 [facility] Urea nitrogen/Creatinine [Mass ratio] 50.1 mg/mg 10-20 [facility] Laboratory - CoagulationOrde red By: Jhonny Marr on 07-09-2023 PT Coag (PPP) [Time] 20.2 s 11.7-14.9 [facility] Laboratory - Hematology and Cell countsOrdered By: Jhonny Marr on 07-09-2023 Erythrocyte distribution width (RBC) [Entitic vol] 51.5 fL 35.1-43.9 [facility] Erythrocyte distribution width (RBC) [Ratio] 16.0 % 11.6-14.6 [facility] Immature granulocytes/100 WBC (Bld) 2.300 % 0.0-0.9 [facility] Comment on above: IG% - Immature Granu locytes (promyelocytes, myelocytes and metamyelocytes) > 1% indicates that a LEFT SHIFT is Present. MCH (RBC) [Entitic mass] 26.4 pg 27.0-32.0 [facility] Nucleated RBC/100 WBC (Bld) [Ratio] 0 % 0-5 [facility] MCHC Auto (RBC) [Mass/Vol]Or dered By: Jhonny Marr on 07-09-2023 MCHC (RBC) [Mass/Vol] 30.1 g/dL 32-36 [facility] No Panel InformationOrdered By: Jhonny Marr on 07-09-2023 Troponin I High Sensitivity 12 pg/mL 3.0-54.0 [facility] Comment on above: Please Note: New Lala t Units and Gender Specific Reference Ranges. For more information see Policy Stat Procedure [place] High Sensitivity Troponin (TNIH) and attachments. Estimated Creatinine Clearance Calc 35.26 ml/min [facility] Estimated GFR (MDRD) Amer 103 mL/min >60 [facility] Comment on above: GFR Calc Estimated GFR (MDRD) Non-Af Amer 85 mL/min >60 [facility] Comment on above: Non- GFR Calc Platelets bldOrdered By: Jhonny Marr on 07-09-2023 Platelets (Bld) [#/Vol] 820 10*3/uL 150-450 [facility] Review by pathologistOrdered By: Jhonny Marr on 07-09-2023 Pathologist review Heri (Unsp spec) [Interp] Reviewed [facility] Comment on above: Previous reported re sult: Julia solis Edited by: SAMM on 07/12/23:1321Neutrophilic leukocytosis.Normocytic anemia.Marked Thrombocytosis consistent with proliferative disorder.Clinical correlation necessary.Alejandro Rodriguez D.O. 07/12/23 AMENDED REPORT 07/12/23 1321 PATH REV previously reported as: December foll Serum or plasma calcium parag urement (mass/volume)Ordered By: Jhonny Marr on 07-09-2023 Calcium [Mass/Vol] 9.2 mg/dL 8.5-10.[address] [facility] Serum or plasma creatinine m easurement (mass/volume)Ordered By: Jhonny Marr on 07-09-2023 Creatinine [Mass/Vol] 0.70 mg/dL 0.55-1.02 [facility] Comment on above: The validity of the calculated GFR & GFRAA in patients over 70 years has not been determined. Clinical correlation is essential. Serum or plasma urea nitroge n measurement (mass/volume)Ordered By: Jhonny Marr on 07-09-2023 Urea nitrogen [Mass/Vol] 35 mg/dL 7-18 [facility] Thin prep Papanicolaou smear with manual screeningOrdered By: Jhonny Marr on 07-09-2023 Thin prep Papanicolaou smear with manual screening 6 5-15 [facility] .Auto Diffon 07-05-2023 Basophil, Absolute 0.1 10 3/mcL Normal 0.0-0.2 [facility] ([place]) Comment on above: Performed By: #### A DIFF, MDW, GFR, ANEU, CBC, CMP, PRO #### [address] [address] Basophils/100 WBC (Bld) 0.9 % Normal 0.0-2.5 [facility] ([place]) Comment on above: Performed By: #### A DIFF, MDW, GFR, ANEU, CBC, CMP, PRO #### [address] [address] Eosinophil, Absolute 0.2 10 3/mcL Normal 0.0-0.4 [facility] ([place]) Comment on above: Performed By: #### A DIFF, MDW, GFR, ANEU, CBC, CMP, PRO #### [address] [address] Eosinophils/100 WBC (Bld) 2.4 % Normal 0.0-7.0 [facility] ([place]) Comment on above: Performed By: #### A DIFF, MDW, GFR, ANEU, CBC, CMP, PRO #### [address] [address] Lymphocyte, Absolute 1.0 10 3/mcL Normal 0.8-3.9 [facility] ([place]) Comment on above: Performed By: #### A DIFF, MDW, GFR, ANEU, CBC, CMP, PRO #### [address] [address] Lymphocytes/100 WBC (Bld) 11.7 % Normal 10.0-50.0 [facility] ([place]) Comment on above: Performed By: #### A DIFF, MDW, GFR, ANEU, CBC, CMP, PRO #### [address] [address] Monocyte, Absolute 0.7 10 3/mcL Normal 0.2-1.0 [facility] ([place]) Comment on above: Performed By: #### A DIFF, MDW, GFR, ANEU, CBC, CMP, PRO #### [address] [address] Monocytes/100 WBC (Bld) 8.8 % Normal 1.7-13.0 [facility] ([place]) Comment on above: Performed By: #### A DIFF, MDW, GFR, ANEU, CBC, CMP, PRO #### [address] [address] Neutrophils/100 WBC (Bld) 76.2 % Normal 37.0-80.0 [facility] ([place]) Comment on above: Performed By: #### A DIFF, MDW, GFR, ANEU, CBC, CMP, PRO #### [address] [address] .GFRon 07-05-2023 GFR 104 ml/min/1.73sqm Normal [facility] ([place]) Comment on above: Result Comment: GFR Population mean for , Non- Americans Ages 20-29 = 116 mL/min/1.73 sq.m. Ages 30-39 = 107 mL/min/1.73 sq.m. Ages 40-49 = 99 mL/min/1.73 sq.m. Ages 50-59 = 93 mL/min/1.73 sq.m. Ages 60-69 = 85 mL/min/1.73 sq.m. Ages 70+ = 75 mL/min/1.73 sq.m. Chronic Kidney Disease: Less than 60 mL/min/1.73 square meters End Stage Renal Disease: Less than 15 mL/min/1.73 square meters Performed By: #### A DIFF, MDW, GFR, ANEU, CBC, CMP, PRO #### [address] [address] GFR Non- 86 ml/min/1.73sqm Normal [facility] ([place]) Comment on above: Result Comment: GFR Population mean for , Non- Americans Ages 20-29 = 116 mL/min/1.73 sq.m. Ages 30-39 = 107 mL/min/1.73 sq.m. Ages 40-49 = 99 mL/min/1.73 sq.m. Ages 50-59 = 93 mL/min/1.73 sq.m. Ages 60-69 = 85 mL/min/1.73 sq.m. Ages 70+ = 75 mL/min/1.73 sq.m. Chronic Kidney Disease: Less than 60 mL/min/1.73 square meters End Stage Renal Disease: Less than 15 mL/min/1.73 square meters Performed By: #### A DIFF, MDW, GFR, ANEU, CBC, CMP, PRO #### [address] [address] .MDWon 07-05-2023 Monocyte Distribution Width 18.68 Normal 0.00-20.00 [facility] ([place]) Comment on above: Result Comment: For ED adult patients suspected of sepsis, MDW<=20.0 does not rule out sepsis or risk of sepsis Performed By: #### A DIFF, MDW, GFR, ANEU, CBC, CMP, PRO #### [address] [address] .NEUABSon 07-05-2023 Neutrophil, Absolute 6.3 10 3/mcL High 2.9-6.2 [facility] ([place]) Comment on above: Performed By: #### A DIFF, MDW, GFR, ANEU, CBC, CMP, PRO #### [address] [address] CBCon 07-05-2023 Erythrocyte distribution width (RBC) [Ratio] 16.4 % High 11.5-14.5 [facility] ([place]) Comment on above: Performed By: #### A DIFF, MDW, GFR, ANEU, CBC, CMP, PRO #### [address] [address] Hematocrit (Bld) [Volume fraction] 28.8 % Low 37.0-47.0 [facility] ([place]) Comment on above: Performed By: #### A DIFF, MDW, GFR, ANEU, CBC, CMP, PRO #### [place] [id number] Hgb 9.5 G/dL Low 12.0-16.0 [facility] ([place]) Comment on above: Performed By: #### A DIFF, MDW, GFR, ANEU, CBC, CMP, PRO #### [address] [address] MCH (RBC) [Entitic mass] 27.3 pg Normal 27.0-31.2 [facility] ([place]) Comment on above: Performed By: #### A DIFF, MDW, GFR, ANEU, CBC, CMP, PRO #### [address] [address] MCHC 33.2 G/dL Normal 33.0-37.0 [facility] ([place]) Comment on above: Performed By: #### A DIFF, MDW, GFR, ANEU, CBC, CMP, PRO #### [address] [address] MCV (RBC) [Entitic vol] 82.4 fL Normal 80.0-94.0 [facility] ([place]) Comment on above: Performed By: #### A DIFF, MDW, GFR, ANEU, CBC, CMP, PRO #### [address] [address] Platelet 677 10 3/mcL High 130-400 [facility] ([place]) Comment on above: Performed By: #### A DIFF, MDW, GFR, ANEU, CBC, CMP, PRO #### [address] [address] Platelet mean volume (Bld) [Entitic vol] 5.9 fL Low 7.4-10.4 [facility] ([place] Comment on above: Performed By: #### A DIFF, MDW, GFR, ANEU, CBC, CMP, PRO #### [address] [address] RBC 3.49 10 6/mcL Low 4.20-5.40 [facility] ([place]) Comment on above: Performed By: #### A DIFF, MDW, GFR, ANEU, CBC, CMP, PRO #### [address] [address] WBC 8.2 10 3/mcL Normal 4.6-10.8 [facility] ([place]) Comment on above: Performed By: #### A DIFF, MDW, GFR, ANEU, CBC, CMP, PRO #### [address] [address] CMPon 07-05-2023 Albumin Level 3.0 G/dL Low 3.4-4.8 [facility] ([place] Comment on above: Performed By: #### A DIFF, MDW, GFR, ANEU, CBC, CMP, PRO #### [address] [address] Albumin/Globulin [Mass ratio] 0.7 {ratio} Low 1.1-2.5 [facility] ([place] Comment on above: Performed By: #### A DIFF, MDW, GFR, ANEU, CBC, CMP, PRO #### [address] [address] ALP [Catalytic activity/Vol] 110 U/L Normal 40-135 [facility] ([place]) Comment on above: Performed By: #### A DIFF, MDW, GFR, ANEU, CBC, CMP, PRO #### [address] [address] ALT [Catalytic activity/Vol] 14 U/L Normal 14-59 [facility] ([place]) Comment on above: Performed By: #### A DIFF, MDW, GFR, ANEU, CBC, CMP, PRO #### [address] [address] AST [Catalytic activity/Vol] 26 U/L Normal 10-40 [facility] ([place]) Comment on above: Performed By: #### A DIFF, MDW, GFR, ANEU, CBC, CMP, PRO #### [address] [address] Bili Total 0.3 mg/dL Normal 0.2-1.0 [facility] ([place]) Comment on above: Result Comment: Use of this assay is not recommended for patients undergoing treatment with eltrombopag due to the potential for falsely elevated results. Performed By: #### A DIFF, MDW, GFR, ANEU, CBC, CMP, PRO #### [address] [address] BUN/Creatinine Ratio 32 ratio High 7-27 [facility] ([place]) Comment on above: Performed By: #### A DIFF, MDW, GFR, ANEU, CBC, CMP, PRO #### [address] [address] Calcium [Mass/Vol] 9.0 mg/dL Normal 8.4-10.2 [facility] ([place]) Comment on above: Performed By: #### A DIFF, MDW, GFR, ANEU, CBC, CMP, PRO #### [address] [address] Chloride [Moles/Vol] 101 mmol/L Normal 98-107 [facility] ([place]) Comment on above: Performed By: #### A DIFF, MDW, GFR, ANEU, CBC, CMP, PRO #### [address] [address] CO2 [Moles/Vol] 25 mmol/L Normal 23-31 [facility] ([place]) Comment on above: Performed By: #### A DIFF, MDW, GFR, ANEU, CBC, CMP, PRO #### [address] [address] Creatinine [Mass/Vol] 0.66 mg/dL Normal 0.55-1.02 [facility] ([place]) Comment on above: Performed By: #### A DIFF, MDW, GFR, ANEU, CBC, CMP, PRO #### [address] [address] Electrolyte Balance 9.0 mEq/L Normal 4.0-15.0 [facility] ([place]) Comment on above: Performed By: #### A DIFF, MDW, GFR, ANEU, CBC, CMP, PRO #### [address] [address] Globulin 4.6 G/dL Normal [facility] ([place]) Comment on above: Performed By: #### A DIFF, MDW, GFR, ANEU, CBC, CMP, PRO #### [address] [address] Glucose [Mass/Vol] 120 mg/dL High 83-110 [facility] ([place]) Comment on above: Performed By: #### A DIFF, MDW, GFR, ANEU, CBC, CMP, PRO #### [address] [address] Potassium [Moles/Vol] 4.2 mmol/L Normal 3.5-5.1 [facility] ([place]) Comment on above: Performed By: #### A DIFF, MDW, GFR, ANEU, CBC, CMP, PRO #### [address] [address] Sodium [Moles/Vol] 135 mmol/L Low 136-145 [facility] ([place]) Comment on above: Performed By: #### A DIFF, MDW, GFR, ANEU, CBC, CMP, PRO #### [address] [address] Total Protein 7.6 G/dL Normal 6.4-8.2 [facility] ([place]) Comment on above: Performed By: #### A JAMEL TUBBS, GFR, ANEU, CBC, CMP, PRO #### [place] [id number] [place], [place] [address] Urea nitrogen [Mass/Vol] 21 mg/dL High 7-18 [facility] ([place]) Comment on above: Performed By: #### A JAMEL TUBBS, GFR, ANEU, CBC, CMP, PRO #### [place] [id number] [place], [place] [address] LABORATORYOrdered By: SYSTEM SYSTEM on 07-05-2023 Albumin BCP dye [Mass/Vol] 3.0 G/dL Low 3.4 - 4.8 G/dL AO ADM SS Albumin/Globulin [Mass ratio] 0.7 {ratio} Low 1.1 - 2.5 ratio AO ADM SS ALP [Catalytic activity/Vol] 110 U/L Normal 40 - 135 U/L AO ADM SS ALT With P-5'-P [Catalytic activity/Vol] 14 U/L Normal 14 - 59 U/L AO ADM SS AST With P-5'-P [Catalytic activity/Vol] 26 U/L Normal 10 - 40 U/L AO ADM SS Basophil, Absolute 0.1 103/mcL Normal 0.0 - 0.2 10^3/mcL AO Workflow SS Basophils/100 WBC (Bld) 0.9 % Normal 0.0 - 2.5 % AO Workflow SS Bilirubin [Mass/Vol] 0.3 mg/dL Normal 0.2 - 1 .0 mg/dL AO ADM SS Comment on above: Interpretive Data: U se of this assay is not recommended for patients undergoing treatment with eltrombopag due to the potential for falsely elevated results. Calcium [Mass/Vol] 9.0 mg/dL Normal 8.4 - 10. 2 mg/dL AO ADM SS Chloride [Moles/Vol] 101 mmol/L Normal 98 - 10 7 mmol/L AO ADM SS CO2 [Moles/Vol] 25 mmol/L Normal 23 - 31 mmol/L AO ADM SS Creatinine [Mass/Vol] 0.66 mg/dL Normal 0.55 - 1.02 mg/dL AO ADM SS Electrolyte Balance 9.0 mEq/L Normal 4.0 - 15 .0 mEq/L AO ADM SS Eosinophil, Absolute 0.2 103/mcL Normal 0.0 - 0 .4 10^3/mcL AO Workflow SS Eosinophils/100 WBC (Bld) 2.4 % Normal 0.0 - 7.0 % AO Workflow SS Erythrocyte distribution width (RBC) [Ratio] 16.4 % High 11.5 - 14.5 % AO Workflow SS GFR/1.73 sq M.predicted among blacks MDRD (S/P/Bld) [Vol rate/Area] 104 ml/min/1.73sqm Invalid Interpretation Code AO Chemistry S Comment on above: Interpretive Data: GFR Population mean for , Non- Americans Ages 20-29 = 116 mL/min/1.73 sq.m. Ages 30-39 = 107 mL/min/1.73 sq.m. Ages 40-49 = 99 mL/min/1.73 sq.m. Ages 50-59 = 93 mL/min/1.73 sq.m. Ages 60-69 = 85 mL/min/1.73 sq.m. Ages 70+ = 75 mL/min/1.73 sq.m. Chronic Kidney Disease: Less than 60 mL/min/1.73 square meters End Stage Renal Disease: Less than 15 mL/min/1.73 square meters GFR/1.73 sq M.predicted among non-blacks MDRD (S/P/Bld) [Vol rate/Area] 86 ml/min/1.73sqm Invalid Interpretation Code AO Chemistry S Comment on above: Interpretive Data: GFR Population mean for , Non- Americans Ages 20-29 = 116 mL/min/1.73 sq.m. Ages 30-39 = 107 mL/min/1.73 sq.m. Ages 40-49 = 99 mL/min/1.73 sq.m. Ages 50-59 = 93 mL/min/1.73 sq.m. Ages 60-69 = 85 mL/min/1.73 sq.m. Ages 70+ = 75 mL/min/1.73 sq.m. Chronic Kidney Disease: Less than 60 mL/min/1.73 square meters End Stage Renal Disease: Less than 15 mL/min/1.73 square meters Globulin 4.6 G/dL Invalid Interpretation Code AO ADM SS Glucose [Mass/Vol] 120 mg/dL High 83 - 110 mg/dL AO ADM SS Hematocrit (Bld) [Volume fraction] 28.8 % Low 37.0 - 47.0 % AO Workflow SS Hemoglobin (Bld) [Mass/Vol] 9.5 G/dL Low 12.0 - 16.0 G/dL AO Workflow SS Lymphocyte, Absolute 1.0 103/mcL Normal 0.8 - 3 .9 10^3/mcL AO Workflow SS Lymphocytes/100 WBC (Bld) 11.7 % Normal 10.0 - 50.0 % AO Workflow SS MCH (RBC) [Entitic mass] 27.3 pg Normal 27.0 - 31.2 pg AO Workflow SS MCHC 33.2 G/dL Normal 33.0 - 37.0 G/dL AO Workflow SS MCV (RBC) [Entitic vol] 82.4 fL Normal 80.0 - 94.0 fL AO Workflow SS Monocyte distribution width Auto (Bld) [Entitic vol] 18.68 1 Normal 0.00 - 20.00 AO Workflow SS Comment on above: Result Comment: For ED adult patients suspected of sepsis, MDW<=20.0 does not rule out sepsis or risk of sepsis Monocyte, Absolute 0.7 103/mcL Normal 0.2 - 1.0 10^3/mcL AO Workflow SS Monocytes/100 WBC (Bld) 8.8 % Normal 1.7 - 13.0 % AO Workflow SS Neutrophil, Absolute 6.3 103/mcL High 2.9 - 6 .2 10^3/mcL AO Workflow SS Neutrophils/100 WBC (Bld) 76.2 % Normal 37.0 - 80.0 % AO Workflow SS Platelet mean volume (Bld) [Entitic vol] 5.9 fL Low 7.4 - 10.4 fL AO Workflow SS Platelets (Bld) [#/Vol] 677 103/mcL High 130 - 400 10^3/mcL AO Workflow SS Potassium [Moles/Vol] 4.2 mmol/L Normal 3.5 - 5.1 mmol/L AO ADM SS Protein [Mass/Vol] 7.6 G/dL Normal 6.4 - 8.2 G/dL AO ADM SS RBC (Bld) [#/Vol] 3.49 106/mcL Low 4.20 - 5.4 0 10^6/mcL AO Workflow SS Sodium [Moles/Vol] 135 mmol/L Low 136 - 145 mmol/L AO ADM SS Urea nitrogen [Mass/Vol] 21 mg/dL High 7 - 18 mg/dL AO ADM SS Urea nitrogen/Creatinine [Mass ratio] 32 ratio High 7 - 27 ratio AO ADM SS WBC (Bld) [#/Vol] 8.2 103/mcL Normal 4.6 - 10.8 10^3/mcL AO Workflow SS LABORATORYOrdered By: Almaz Doan on 07-05-2023 INR Coag (PPP) [Relative time] 3.4 {INR} Invalid Interpretation Code AO [facility] SS Comment on above: Interpretive Data: Antonio flores [employer] (CHEST, 1991, 102:312S-25S) recommended therapeutic range for oral anticoagulant therapy is: LOW RISK: Prophylaxis of venous thrombosis INR: 2.0-3.0 Treatment of pulmonary embolism 2.0-3.0 Prevention of systemic embolism 2.0-3.0 HIGH RISK: Mechanical prosthetic valves 2.5-3.5 PT Coag (PPP) [Time] 40.1 s High 9.0 - 1 4.2 seconds AO [facility] SS PROon 07-05-2023 PT Coag (PPP) [Time] 40.1 s High 9.0-14.2 [facility] ([place]) Comment on above: Performed By: #### A JAMEL TUBBS, GFR, ANEU, CBC, CMP, PRO #### [address] [address] PT International Ratio 3.4 Normal [facility] ([place]) Comment on above: Result Comment: [employer] (CHEST, 1991, 102:312S-25S) recommended therapeutic range for oral anticoagulant therapy is: LOW RISK: Prophylaxis of venous thrombosis INR: 2.0-3.0 Treatment of pulmonary embolism 2.0-3.0 Prevention of systemic embolism 2.0-3.0 HIGH RISK: Mechanical prosthetic valves 2.5-3.5 Performed By: #### A JAMEL TUBBS, GFR, ANEU, CBC, CMP, PRO #### [address] [address] Absolute lymphocyte countOrd ered By: Angelica Brown on 07-01-2023 Lymphocytes Auto (Unsp spec) [#/Vol] 1.55 10*3/uL 0.83-4.51 [facility] Basophil percentageOrdered B y: Angelica Brown on 07-01-2023 Basophils/100 WBC (Bld) 0.8 % 0-1 [facility] Bilirubin [Mass/Vol] 0.40 mg/dL 0.20-1.00 [facility] Comment on above: For patients on eltr ombopag therapy, use of Dimension [place] TBIL is not recommended. Chloride [Moles/Vol] 103 mmol/L 98-107 [facility] Eosinophils/100 WBC (Bld) 1.2 % 0-5 [facility] Glucose [Mass/Vol] 107 mg/dL 74-[address] [facility] Comment on above: Fasting Glucose resu lt from 100 to 125 mg/dL suggests IMPAIRED HOMEOSTASIS per A.D.A. criteria. Neutrophils (Bld) [#/Vol] 7.9 10*3/uL 2.0-7.7 [facility] Neutrophils/100 WBC (Bld) 75.0 % 47-70 [facility] Potassium [Moles/Vol] 4.2 mmol/L 3.5-5.1 [facility] Protein [Mass/Vol] 7.7 g/dL 6.4-8.[address] [facility] Sodium [Moles/Vol] 136 mmol/L 136-[address] [facility] WBC (Bld) [#/Vol] 10.6 10*3/uL 4.4-11.0 [facility] Blood erythrocytes count (nu mber/volume)Ordered By: Angelica Brown on 07-01-2023 RBC (Bld) [#/Vol] 3.49 10*6/uL 4.2-5.4 [facility] Blood hemoglobin measurement (mass/volume)Ordered By: Angelica Bronw on 07-01-2023 Hemoglobin (Bld) [Mass/Vol] 9.3 g/dL 12.0-15.0 [facility] Blood lymphocytes/100 leukoc ytesOrdered By: Angelica Brown on 07-01-2023 Lymphocytes/100 WBC (Bld) 14.6 % 19-41 [facility] Blood monocytes/100 leukocyt esOrdered By: Angelica Brown on 07-01-2023 Monocytes/100 WBC (Bld) 7.8 % 0-10 [facility] Blood platelet mean volumeOr dered By: Angelica Brown on 07-01-2023 Platelet mean volume (Bld) [Entitic vol] 8.3 fL 6.2-12.0 [facility] Determination of erythrocyte mean corpuscular volume (MCV)Ordered By: Angelica Brown on 07-01-2023 MCV (RBC) [Entitic vol] 89.1 fL 81-99 [facility] Hematocrit Auto (Bld) [Volum e fraction]Ordered By: Angelica Brown on 07-01-2023 Hematocrit (Bld) [Volume fraction] 31.1 % 37-47 [facility] INR in Blood by Coagulation assayOrdered By: Angelica Brown on 07-01-2023 INR Coag (Bld) [Relative time] 3.5 {INR} [facility] Laboratory - Chemistry and C hemistry - challengeOrdered By: Angelica Brown on 07-01-2023 ALP [Catalytic activity/Vol] 102 U/L 45-117 [facility] ALT [Catalytic activity/Vol] 17 U/L 13-56 [facility] CO2 [Moles/Vol] 29.0 mmol/L 21.0-32.0 [facility] Globulin (S) [Mass/Vol] 4.5 g/dL 2.2-4.2 [facility] Urea nitrogen/Creatinine [Mass ratio] 34.0 mg/mg 10-20 [facility] Laboratory - CoagulationOrde red By: Angelica Brown on 07-01-2023 PT Coag (PPP) [Time] 35.5 s 11.7-14.9 [facility] Laboratory - Hematology and Cell countsOrdered By: Angelica Brown on 07-01-2023 Erythrocyte distribution width (RBC) [Entitic vol] 51.9 fL 35.1-43.9 [facility] Erythrocyte distribution width (RBC) [Ratio] 15.9 % 11.6-14.6 [facility] Immature granulocytes/100 WBC (Bld) 0.600 % 0.0-0.9 [facility] Comment on above: IG% - Immature Granu locytes (promyelocytes, myelocytes and metamyelocytes) > 1% indicates that a LEFT SHIFT is Present. MCH (RBC) [Entitic mass] 26.6 pg 27.0-32.0 [facility] Nucleated RBC/100 WBC (Bld) [Ratio] 0 % 0-5 [facility] MCHC Auto (RBC) [Mass/Vol]Or dered By: Angelica Brown on 07-01-2023 MCHC (RBC) [Mass/Vol] 29.9 g/dL 32-36 [facility] No Panel InformationOrdered By: Angelica Brown on 07-01-2023 Estimated GFR (MDRD) Amer 97 mL/min >60 [facility] Comment on above: GFR Calc Estimated GFR (MDRD) Non-Af Amer 80 mL/min >60 [facility] Comment on above: Non- GFR Calc Platelets bldOrdered By: Rogers Brown on 07-01-2023 Platelets (Bld) [#/Vol] 694 10*3/uL 150-450 [facility] Serum or plasma albumin parag urement (mass/volume)Ordered By: Angelica Brown on 07-01-2023 Albumin [Mass/Vol] 3.2 g/dL 3.2-5.[address] [facility] Serum or plasma albumin/glob ulin mass ratioOrdered By: Angelica Brown on 07-01-2023 Albumin/Globulin [Mass ratio] 0.7 {ratio} 0.9-2.4 [facility] Serum or plasma calcium parag urement (mass/volume)Ordered By: Angelica Brown on 07-01-2023 Calcium [Mass/Vol] 9.3 mg/dL 8.5-10.[address] [facility] Serum or plasma creatinine m easurement (mass/volume)Ordered By: Angelica Brown on 07-01-2023 Creatinine [Mass/Vol] 0.74 mg/dL 0.55-1.02 [facility] Comment on above: The validity of the calculated GFR & GFRAA in patients over 70 years has not been determined. Clinical correlation is essential. Serum or plasma urea nitroge n measurement (mass/volume)Ordered By: Angelica Brown on 07-01-2023 Urea nitrogen [Mass/Vol] 25 mg/dL 7-18 [facility] Thin prep Papanicolaou smear with manual screeningOrdered By: Angelica Brown on 07-01-2023 Thin prep Papanicolaou smear with manual screening 26 U/L 15-37 [facility] Thin prep Papanicolaou smear with manual screening 4 5-15 [facility] PROon 06-25-2023 INR Coag (PPP) [Relative time] 3.0 {INR} Normal [facility] ([place]) Comment on above: Result Comment: [employer] (CHEST, 1992, 102:312S-25S) recommended therapeutic range for oral anticoagulant therapy is: LOW RISK: Prophylaxis of venous thrombosis INR: 2.0-3.0 Treatment of pulmonary embolism 2.0-3.0 Prevention of systemic embolism 2.0-3.0 HIGH RISK: Mechanical prosthetic valves 2.5-3.5 Performed By: #### P RO #### [address] [address] PT Coag (PPP) [Time] 34.5 s High 9.0-14.2 [facility] ([place]) Comment on above: Result Comment: Effe ctive 02/28/08, Protime results may be affected by some antibiotics (i.e. Ciprofloxacin, Azithromycin, Bactrim) which may potentiate the action of oral anticoagulants, with further increases in Protime/INR. Performed By: #### P RO #### [address] [address] ECG 12 leadOrdered By: Leopoldo Chase on 06-24-2023 Atrial Rate 277 BPM [facility] Work Phone: [phone] P [place] 110 degrees [facility] Work Phone: [phone] P Offset 192 ms [facility] Work Phone: [phone] P Onset 133 ms [facility] Work Phone: [phone] Q Onset 212 ms [facility] Work Phone: [phone] QRS Count 22 beats [facility] Work Phone: [phone] QRS Duration 108 ms [facility] Work Phone: [phone] QT Interval 304 ms [facility] Work Phone: [phone] QTC Calculation(Bazett) 453 ms [facility] Work Phone: [phone] QTC Frederic[place] 397 ms [facility] Work Phone: [phone] R [place] 34 degrees [facility] Work Phone: [phone] T [place] 263 degrees [facility] Work Phone: [phone] T Offset 364 ms [facility] Work Phone: [phone] Ventricular [facility] 134 BPM [facility] Work Phone: [phone] [facility] Work Phone: [phone] ECG 12 leadon 06-24-2023 Atrial flutter with variable AV block Nonspecific T wave abnormality Abnormal ECG When compared with ECG of 08-JUN-2023 22:23, No significant change was found Confirmed by Bhargav Chase ([id number]) on 06/24/2023 8:57:22 AM MUSE Bhargav Chase MD - 06/24/2023 Atrial flutter with variable AV block Nonspecific T wave abnormality Abnormal ECG When compared with ECG of 08-JUN-2023 22:23, No significant change was found Confirmed by Bhargav Chase ([id number]) on 06/24/2023 8:57:22 AM [facility] Work Phone: [phone] No Panel InformationOrdered By: Bhargav Chase on 06-24-2023 Atrial Rate 85 BPM [facility] Work Phone: [phone] Q Onset 220 ms [facility] Work Phone: [phone] QRS Count 14 beats [facility] Work Phone: [phone] QRS Duration 96 ms [facility] Work Phone: [phone] QT Interval 316 ms [facility] Work Phone: [phone] QTC Calculation(Bazett) 376 ms [facility] Work Phone: QTC [place] 354 [facility] Work Phone: [phone] R [place] 42 degrees [facility] Work Phone: [phone] T [place] -85 degrees [facility] Work Phone: [phone] T Offset 378 ms [facility] Work Phone: [phone] Ventricular Rate [address] [facility] Work Phone: [phone] [facility] Work Phone: [phone] No Panel Informationon 06-24 Atrial fibrillation Moderate voltage criteria for LVH, may be normal variant Possible Inferior infarct , age undetermined Abnormal ECG When compared with ECG of 11-JUN-2023 15:52, Atrial fibrillation has replaced Atrial flutter Vent. rate has decreased BY 49 BPM Borderline criteria for Inferior infarct are now Present Reconfirmed by Bhargav Chase ([id number]) on 06/24/2023 8:59:04 AM MUSE Bhargav Chase MD - 06/24/2023 Atrial fibrillation Moderate voltage criteria for LVH, may be normal variant Possible Inferior infarct , age undetermined Abnormal ECG When compared with ECG of 11-JUN-2023 15:52, Atrial fibrillation has replaced Atrial flutter Vent. rate has decreased BY 49 BPM Borderline criteria for Inferior infarct are now Present Reconfirmed by Bhargav Chase ([id number]) on 06/24/2023 8:59:04 AM [facility] Work Phone: CBC panel Auto (Bld)on 06-23 Erythrocyte distribution width (RBC) [Ratio] 15.4 % High 11.5-14.5 [facility] Comment on above: Performed By: #### 5 7021-8 #### JACQUI Hayes ([id number]) [facility] ([facility]) [id number] [place] [address] Hematocrit (Bld) [Volume fraction] 26.1 % Low 36.0-46.0 [facility] Comment on above: Performed By: #### 5 7021-8 #### JACQUI Hayes ([id number]) [facility] ([facility]) [address] [place] [address] Hemoglobin (Bld) [Mass/Vol] 8.6 g/dL Low 12.0-16.0 [facility] Comment on above: Performed By: #### 5 7021-8 #### JACQUI Hayes ([id number]) [facility] ([facility]) [address] [place] [address] MCH (RBC) [Entitic mass] 27.1 pg Normal 26.0-34.0 [facility] Comment on above: Performed By: #### 5 7021-8 #### JACQUI Hayes ([id number]) [facility] ([facility]) [address] [place] [address] MCHC (RBC) [Mass/Vol] 33.0 g/dL Normal 32.0-36.0 [facility] Comment on above: Performed By: #### 5 7021-8 #### JACQUI Hayes ([id number]) [facility] ([facility]) [address] [place] [address] MCV (RBC) [Entitic vol] 82 fL Normal 80-100 [facility] Comment on above: Performed By: #### 5 7021-8 #### JACQUI Hayes ([id number]) [facility] ([facility]) [address] [place] [address] Nucleated RBC/100 WBC (Bld) [Ratio] 0.0 /100 WBCs Normal 0.0-0.0 [facility] Comment on above: Performed By: #### 5 7021-8 #### JACQUI Hayes ([id number]) [facility] ([facility]) [address] [place] [address] [address] Platelets (Bld) [#/Vol] 572 x10*3/uL High 150-450 [facility] Comment on above: Performed By: #### 5 7021-8 #### JACQUI Hayes ([id number]) [facility] ([facility]) [address] [place] [address] RBC (Bld) [#/Vol] 3.17 x10*6/uL Low 4.00-5.20 [facility] Comment on above: Performed By: #### 5 7021-8 #### JACQUI Hayes ([id number]) [facility] ([facility]) [address] [place] [address] WBC (Bld) [#/Vol] 13.7 x10*3/uL High 4.4-11.3 [facility] Comment on above: Performed By: #### 5 7021-8 #### JACQUI Hayes ([id number]) [facility] ([facility]) [id number] [place] [address] Heparin.unfractionatedon Heparin unfractionated Chromogenic method Qn (PPP) 0.2 IU/mL Normal See Comment Below for Therapeutic Ranges [facility] Comment on above: Order Comment: Obtai n 4 hours after any Heparin dosage change. Nursing to release order.The therapeutic reference range for UFH may be either 0.3-0.6 IU/mL or 0.3-0.7 IU/mL based on the clinical setting for anticoagulant therapy and the associated nomogram used. For Heparin dosing guidelines based on clinical scenario and Heparin Assay results, please refer to local Pharmacy and the [facility] Guidelines for Anticoagulation Therapy available on the [facility] intranet at: [email or web address] Performed By: #### 5 7021-8 #### JACQUI Hayes ([id number]) [facility] ([facility]) [address] [place] [address] Magnesiumon 06-23-2023 Magnesium [Mass/Vol] 2.14 mg/dL Normal 1.60-2.40 [facility] Comment on above: Performed By: #### 5 7021-8 #### JACQUI Hayes ([id number]) [facility] ([facility]) [address] [place] [address] PT and aPTT panel Coag (PPP) on 06-23-2023 aPTT Coag (PPP) [Time] 57 s High 27-38 Un [facility] Comment on above: Order Comment: The A PTT is no longer used for monitoring Unfractionated Heparin Therapy. For monitoring Heparin Therapy, use the Heparin Assay. Performed By: #### 5 7021-8 #### JACQUI Hayes ([id number]) [facility] ([facility]) [address] [place] [address]71 INR Coag (PPP) [Relative time] 2.8 High 0.9-1.1 [facility] Comment on above: Order Comment: The A PTT is no longer used for monitoring Unfractionated Heparin Therapy. For monitoring Heparin Therapy, use the Heparin Assay. Performed By: #### 5 7021-8 #### JACQUI Hayes ([id number]) [facility] ([facility]) [address] [place] [address] 13881 PT Coag (PPP) [Time] 32.2 s High 9.8-12.8 [facility] Comment on above: Order Comment: The A PTT is no longer used for monitoring Unfractionated Heparin Therapy. For monitoring Heparin Therapy, use the Heparin Assay. Performed By: #### 5 7021-8 #### JACQUI Hayes ([id number]) [facility] ([facility]) [address] [place] [address]2938 Renal function 2000 panelon 06-23-2023 Albumin BCP dye [Mass/Vol] 3.2 g/dL Low 3.4-5.0 [facility] Comment on above: Performed By: #### 5 7021-8 #### JACQUI Hayes ([id number]) [facility] ([facility]) [address] [place] [address] 92377 Anion gap [Moles/Vol] 16 mmol/L Normal 10-20 [facility] Comment on above: Performed By: #### 5 7021-8 #### JACQUI Hayes ([id number]) [facility] ([facility]) [address] [place] [address], [place] [address] Calcium [Mass/Vol] 9.3 mg/dL Normal 8.6-10.6 [facility] Comment on above: Performed By: #### 5 7021-8 #### JACQUI STYLES L ([id number]) [facility] ([facility]) [address] [place] [address] Chloride [Moles/Vol] 99 mmol/L Normal 98-107 [facility] Comment on above: Performed By: #### 5 7021-8 #### JACQUI STYLES L ([id number]) [facility] ([facility]) [address] [place] [address] CO2 [Moles/Vol] 24 mmol/L Normal 21-32 [facility] Comment on above: Performed By: #### 5 7021-8 #### JACQUI STYLES L ([id number]) [facility] ([facility]) [address] [place] [address] Creatinine [Mass/Vol] 0.42 mg/dL Low 0.50-1.05 [facility] Comment on above: Performed By: #### 5 7021-8 #### JACQUI STYLES L ([id number]) [facility] ([facility]) [address] [place] [address] GFR/1.73 sq M.predicted MDRD (S/P/Bld) [Vol rate/Area] mL/min/{1.73_m2} Normal >60 [facility] Comment on above: Result Comment: Calc ulations of estimated GFR are performed using the 2020 CKD-EPI Study Refit equation without the race variable for the IDMS-Traceable creatinine methods. https://jasn.asnjournals.org/content//ASN.49302 17155 Performed By: #### 5 7021-8 #### JACQUI Hayes ([id number]) [facility] ([facility]) [address] [place] [address] Glucose [Mass/Vol] 106 mg/dL High 74-99 [facility] Comment on above: Performed By: #### 5 7021-8 #### JACQUI Hayes ([id number]) [facility] ([facility]) [address] [place] [address]93 Phosphate [Mass/Vol] 3.4 mg/dL Normal 2.5-4.9 [facility] Comment on above: Result Comment: The performance characteristics of phosphorus testing in heparinized plasma have been validated by the individual laboratory site where testing is performed. Testing on heparinized plasma is not approved by the FDA; however, such approval is not necessary. Performed By: #### 5 7021-8 #### JACQUI Hayes ([id number]) [facility] ([facility]) [address] [place] [address] Potassium [Moles/Vol] 4.0 mmol/L Normal 3.5-5.3 [facility] Comment on above: Performed By: #### 5 7021-8 #### JACQUI STYLES L ([id number]) [facility] ([facility]) [address] [place] [address]118 Sodium [Moles/Vol] 135 mmol/L Low 136-145 [facility] Comment on above: Performed By: #### 5 7021-8 #### JACQUI STYLES L ([id number]) [facility] ([facility]) [address] [place] [address]240 Urea nitrogen [Mass/Vol] 9 mg/dL Normal 6-23 [facility] Comment on above: Performed By: #### 5 7021-8 #### JACQUI STYLES L ([id number]) [facility] ([facility]) [address] [place] [address] 80144 CBC panel Auto (Bld)on 06-22 Erythrocyte distribution width (RBC) [Ratio] 15.6 % High 11.5-14.5 [facility] Comment on above: Performed By: #### 5 7021-8 #### JACQUI STYLES L ([id number]) [facility] ([facility]) [address] [place] [address] 13586 Hematocrit (Bld) [Volume fraction] 28.5 % Low 36.0-46.0 [facility] Comment on above: Performed By: #### 5 7021-8 #### JACQUI Hayes ([id number]) [facility] ([facility]) [id number] [place] [address] Hemoglobin (Bld) [Mass/Vol] 8.9 g/dL Low 12.0-16.0 [facility] Comment on above: Performed By: #### 5 7021-8 #### JACQUI Hayes ([id number]) [facility] ([facility]) [address] [place] [address] 69922 MCH (RBC) [Entitic mass] 27.6 pg Normal 26.0-34.0 [facility] Comment on above: Performed By: #### 5 7021-8 #### JACQUI Hayes ([id number]) [facility] ([facility]) [address] [place] [address] 76056 MCHC (RBC) [Mass/Vol] 31.2 g/dL Low 32.0-36.0 [facility] Comment on above: Performed By: #### 5 7021-8 #### JACQUI Hayes ([id number]) [facility] ([facility]) [address] [place] [address] 71468 MCV (RBC) [Entitic vol] 88 fL Normal 80-100 [facility] Comment on above: Performed By: #### 5 7021-8 #### JACQUI Hayes ([id number]) [facility] ([facility]) [address] [place] [address] 87920 Nucleated RBC/100 WBC (Bld) [Ratio] 0.0 /100 WBCs Normal 0.0-0.0 [facility] Comment on above: Performed By: #### 5 7021-8 #### JACQUI Hayes ([id number]) [facility] ([facility]) [address] [place] [address] 14542 Platelets (Bld) [#/Vol] 553 x10*3/uL High 150-450 [facility] Comment on above: Performed By: #### 5 7021-8 #### JACQUI DOWNEYMOTZER L ([id number]) [facility] ([facility]) [address] [place] [address] RBC (Bld) [#/Vol] 3.23 x10*6/uL Low 4.00-5.20 [facility] Comment on above: Performed By: #### 5 7021-8 #### JACQUI DOWNEYMOTZER L ([id number]) [facility] ([facility]) [address] [place] [address] WBC (Bld) [#/Vol] 13.0 x10*3/uL High 4.4-11.3 [facility] Comment on above: Performed By: #### 5 7021-8 #### JACQUI DOWNEYMOTZER L ([id number]) [facility] ([facility]) [id number] [place] [address]38 Heparin.unfractionatedon Heparin unfractionated Chromogenic method Qn (PPP) 0.3 IU/mL Normal See Comment Below for Therapeutic Ranges [facility] Comment on above: Order Comment: When two (2) consecutive Heparin Assay, UFH results obtained 4 hours apart are therapeutic, obtain STAT Heparin Assay, UFH every a.m. Nursing to release order.The therapeutic reference range for UFH may be either 0.3-0.6 IU/mL or 0.3-0.7 IU/mL based on the clinical setting for anticoagulant therapy and the associated nomogram used. For Heparin dosing guidelines based on clinical scenario and Heparin Assay results, please refer to local Pharmacy and the [facility] Guidelines for Anticoagulation Therapy available on the [facility] intranet at: [email or web address] Performed By: #### 5 7021-8 #### JACQUI DOWNEYMOTZER L ([id number]) [facility] ([facility]) [address] [place] [address] Magnesiumon 06-22-2023 Magnesium [Mass/Vol] 2.09 mg/dL Normal 1.60-2.40 [facility] Comment on above: Performed By: #### 5 7021-8 #### JACQUI Hayes ([id number]) [facility] ([facility]) [address] [place] [address] 75412 PT and aPTT panel Coag (PPP) on 06-22-2023 aPTT Coag (PPP) [Time] 56 s High 27-38 [facility] Comment on above: Order Comment: The A PTT is no longer used for monitoring Unfractionated Heparin Therapy. For monitoring Heparin Therapy, use the Heparin Assay. Performed By: #### 5 7021-8 #### JACQUI Hayes ([id number]) [facility] ([facility]) [address] [place] [address] 93857 INR Coag (PPP) [Relative time] 1.9 High 0.9-1.1 [facility] Comment on above: Order Comment: The A PTT is no longer used for monitoring Unfractionated Heparin Therapy. For monitoring Heparin Therapy, use the Heparin Assay. Performed By: #### 5 7021-8 #### JACQUI Hayes ([id number]) [facility] ([facility]) [address] [place] [address] 28048 PT Coag (PPP) [Time] 22.1 s High 9.8-12.8 [facility] Comment on above: Order Comment: The A PTT is no longer used for monitoring Unfractionated Heparin Therapy. For monitoring Heparin Therapy, use the Heparin Assay. Performed By: #### 5 7021-8 #### JACQUI Hayes ([id number]) [facility] ([facility]) [address] [place] [address] 74687 Renal function 2000 panelon 06-22-2023 Albumin BCP dye [Mass/Vol] 3.2 g/dL Low 3.4-5.0 [facility] Comment on above: Performed By: #### 5 7021-8 #### JACQUI Hayes ([id number]) [facility] ([facility]) [address] [place] [address] 64367 Anion gap [Moles/Vol] 16 mmol/L Normal 10-20 [facility] Comment on above: Performed By: #### 5 7021-8 #### JACQUI STYLES L ([id number]) [facility] ([facility]) [address] [place] [address] Calcium [Mass/Vol] 9.1 mg/dL Normal 8.6-10.6 [facility] Comment on above: Performed By: #### 5 7021-8 #### JACQUI STYLES L ([id number]) [facility] ([facility]) [address] [place] [address] Chloride [Moles/Vol] 98 mmol/L Normal 98-107 [facility] Comment on above: Performed By: #### 5 7021-8 #### JACQUI STYLES L ([id number]) [facility] ([facility]) [address] [place] [address] CO2 [Moles/Vol] 26 mmol/L Normal 21-32 [facility] Comment on above: Performed By: #### 5 7021-8 #### JACQUI STYLES L ([id number]) [facility] ([facility]) [address] [place] [address] Creatinine [Mass/Vol] 0.46 mg/dL Low 0.50-1.05 [facility] Comment on above: Performed By: #### 5 7021-8 #### JACQUI STYLES L ([id number]) [facility] ([facility]) [id number] [place] [address] 95877 GFR/1.73 sq M.predicted MDRD (S/P/Bld) [Vol rate/Area] mL/min/{1.73_m2} Normal >60 [facility] Comment on above: Result Comment: Calc ulations of estimated GFR are performed using the 2020 CKD-EPI Study Refit equation without the race variable for the IDMS-Traceable creatinine methods. https://jasn.asnjournals.org/content//ASN.13529 48405 Performed By: #### 5 7021-8 #### JACQUI Hayes ([id number]) [facility] ([facility]) [address] [place] [address] Glucose [Mass/Vol] 90 mg/dL Normal 74-99 [facility] Comment on above: Performed By: #### 5 7021-8 #### JACQUI Hayes ([id number]) [facility] ([facility]) [id number] [place] [address] 88520 Phosphate [Mass/Vol] 3.7 mg/dL Normal 2.5-4.9 [facility] Comment on above: Result Comment: The performance characteristics of phosphorus testing in heparinized plasma have been validated by the individual laboratory site where testing is performed. Testing on heparinized plasma is not approved by the FDA; however, such approval is not necessary. Performed By: #### 5 7021-8 #### JACQUI Hayes ([id number]) [facility] ([facility]) [address] [place] [address] 94994 Potassium [Moles/Vol] 3.8 mmol/L Normal 3.5-5.3 [facility] Comment on above: Performed By: #### 5 7021-8 #### JACQUI Hayes ([id number]) [facility] ([facility]) [id number] [place] [address] 52500 Sodium [Moles/Vol] 136 mmol/L Normal 136-145 [facility] Comment on above: Performed By: #### 5 7021-8 #### JACQUI Hayes ([id number]) [facility] ([facility]) [id number] [place] [address] 26344 Urea nitrogen [Mass/Vol] 11 mg/dL Normal 6-23 [facility] Comment on above: Performed By: #### 5 7021-8 #### JACQUI Hayes ([id number]) [facility] ([facility]) [id number] [place] [address] 23406 CBC panel Auto (Bld)on 06-21 Erythrocyte distribution width (RBC) [Ratio] 15.2 % High 11.5-14.5 [facility] Comment on above: Performed By: #### 5 7021-8 #### JACQUI Hayes ([id number]) [facility] ([facility]) [address] [place] [address] 81707 Hematocrit (Bld) [Volume fraction] 24.9 % Low 36.0-46.0 [facility] Comment on above: Performed By: #### 5 7021-8 #### JACQUI Hayes ([id number]) [facility] ([facility]) [address] [place] [address] 07561 Hemoglobin (Bld) [Mass/Vol] 7.8 g/dL Low 12.0-16.0 [facility] Comment on above: Performed By: #### 5 7021-8 #### JACQUI Hayse ([id number]) [facility] ([facility]) [address] [place] [address] 58784 MCH (RBC) [Entitic mass] 27.5 pg Normal 26.0-34.0 [facility] Comment on above: Performed By: #### 5 7021-8 #### JACQUI Hayes ([id number]) [facility] ([facility]) [address] [place] [address] 36595 MCHC (RBC) [Mass/Vol] 31.3 g/dL Low 32.0-36.0 [facility] Comment on above: Performed By: #### 5 7021-8 #### JACQUI Hayes ([id number]) [facility] ([facility]) [address] [place] [address] 06393 MCV (RBC) [Entitic vol] 88 fL Normal 80-100 [facility] Comment on above: Performed By: #### 5 7021-8 #### JACQUI Hayes ([id number]) [facility] ([facility]) [address] [place] [address] 50654 Nucleated RBC/100 WBC (Bld) [Ratio] 0.0 /100 WBCs Normal 0.0-0.0 [facility] Comment on above: Performed By: #### 5 7021-8 #### JACQUI GAER L ([id number]) [facility] ([facility]) [address] [place] [address] Platelets (Bld) [#/Vol] 565 x10*3/uL High 150-450 [facility] Comment on above: Performed By: #### 5 7021-8 #### JACQUI DOWNEYMOTZER L ([id number]) [facility] ([facility]) [address] [place] [address] RBC (Bld) [#/Vol] 2.84 x10*6/uL Low 4.00-5.20 [facility] Comment on above: Performed By: #### 5 7021-8 #### JACQUI DOWNEYMOTZER L ([id number]) [facility] ([facility]) [address] [place] [address] WBC (Bld) [#/Vol] 11.0 x10*3/uL Normal 4.4-11.3 [facility] Comment on above: Performed By: #### 5 7021-8 #### JACQUI GAER L ([id number]) [facility] ([facility]) [address] [place] [address] Heparin.unfractionatedon Heparin unfractionated Chromogenic method Qn (PPP) 0.3 IU/mL Normal See Comment Below for Therapeutic Ranges [facility] Comment on above: Order Comment: Obtai n 4 hours after any Heparin dosage change. Nursing to release order.The therapeutic reference range for UFH may be either 0.3-0.6 IU/mL or 0.3-0.7 IU/mL based on the clinical setting for anticoagulant therapy and the associated nomogram used. For Heparin dosing guidelines based on clinical scenario and Heparin Assay results, please refer to local Pharmacy and the [facility] Guidelines for Anticoagulation Therapy available on the [facility] intranet at: [email or web address] Performed By: #### 5 7021-8 #### JACQUI FALLONTZER L ([id number]) [facility] ([facility]) [id number] [place] [address] 76204 Heparin unfractionated Chromogenic method Qn (PPP) 0.2 IU/mL Normal See Comment Below for Therapeutic Ranges [facility] Comment on above: Order Comment: When two (2) consecutive Heparin Assay, UFH results obtained 4 hours apart are therapeutic, obtain STAT Heparin Assay, UFH every a.m. Nursing to release order.The therapeutic reference range for UFH may be either 0.3-0.6 IU/mL or 0.3-0.7 IU/mL based on the clinical setting for anticoagulant therapy and the associated nomogram used. For Heparin dosing guidelines based on clinical scenario and Heparin Assay results, please refer to local Pharmacy and the [facility] Guidelines for Anticoagulation Therapy available on the [facility] intranet at: [email or web address] Performed By: #### 5 7021-8 #### JACQUI Hayes ([id number]) [facility] ([facility]) [address] [place] [address] 35094 Magnesiumon 06-21-2023 Magnesium [Mass/Vol] 2.09 mg/dL Normal 1.60-2.40 [facility] Comment on above: Performed By: #### 5 7021-8 #### JACQUI Hayes ([id number]) [facility] ([facility]) [address] [place] [address] 85934 PT and aPTT panel Coag (PPP) on 06-21-2023 aPTT Coag (PPP) [Time] 47 s High 27-38 [facility] Comment on above: Order Comment: The A PTT is no longer used for monitoring Unfractionated Heparin Therapy. For monitoring Heparin Therapy, use the Heparin Assay. Performed By: #### 5 7021-8 #### JACQUI Hayes ([id number]) [facility] ([facility]) [address] [place] [address] 69546 INR Coag (PPP) [Relative time] 1.7 High 0.9-1.1 [facility] Comment on above: Order Comment: The A PTT is no longer used for monitoring Unfractionated Heparin Therapy. For monitoring Heparin Therapy, use the Heparin Assay. Performed By: #### 5 7021-8 #### JACQUI Hayes ([id number]) [facility] ([facility]) [address] [place] [address] 06860 PT Coag (PPP) [Time] 19.3 s High 9.8-12.8 [facility] Comment on above: Order Comment: The A PTT is no longer used for monitoring Unfractionated Heparin Therapy. For monitoring Heparin Therapy, use the Heparin Assay. Performed By: #### 5 7021-8 #### JACQUI Hayes ([id number]) [facility] [facility] ([facility]) [address] [place] [address] 92033 Renal function 2000 panelon 06-21-2023 Albumin BCP dye [Mass/Vol] 2.9 g/dL Low 3.4-5.0 [facility] Comment on above: Performed By: #### 5 7021-8 #### JACQUI Hayes ([id number]) [facility] ([facility]) [address] [place] [address] 97087 Anion gap [Moles/Vol] 19 mmol/L Normal 10-20 [facility] Comment on above: Performed By: #### 5 7021-8 #### JACQUI Hayes ([id number]) [facility] ([facility]) [address] [place] [address] 03376 Calcium [Mass/Vol] 9.0 mg/dL Normal 8.6-10.6 [facility] Comment on above: Performed By: #### 5 7021-8 #### JACQUI STYLES L ([id number]) [facility] ([facility]) [address] [place] [address] 35097 Chloride [Moles/Vol] 99 mmol/L Normal 98-107 [facility] Comment on above: Performed By: #### 5 7021-8 #### JACQUI Hayes ([id number]) [facility] ([facility]) [address] [place] [address] 50260 CO2 [Moles/Vol] 23 mmol/L Normal 21-32 [facility] Comment on above: Performed By: #### 5 7021-8 #### JACQUI Hayes ([id number]) [facility] ([facility]) [address] [place] [address] Creatinine [Mass/Vol] 0.43 mg/dL Low 0.50-1.05 [facility] Comment on above: Performed By: #### 5 7021-8 #### JACQUI Hayes ([id number]) [facility] ([facility]) [id number] [place] [address] 12437 GFR/1.73 sq M.predicted MDRD (S/P/Bld) [Vol rate/Area] mL/min/{1.73_m2} Normal >60 [facility] Comment on above: Result Comment: Calc ulations of estimated GFR are performed using the 2020 CKD-EPI Study Refit equation without the race variable for the IDMS-Traceable creatinine methods. https://jasn.asnjournals.org/content/early//ASN.82664 08349 Performed By: #### 5 7021-8 #### JACQUI Hayes ([id number]) [facility] ([facility]) [id number] [place] [address] 49145 Glucose [Mass/Vol] 92 mg/dL Normal 74-99 [facility] Comment on above: Performed By: #### 5 7021-8 #### JACQUI Hayes ([id number]) [facility] ([facility]) [id number] [place] [address] 79107 Phosphate [Mass/Vol] 3.8 mg/dL Normal 2.5-4.9 [facility] Comment on above: Result Comment: The performance characteristics of phosphorus testing in heparinized plasma have been validated by the individual laboratory site where testing is performed. Testing on heparinized plasma is not approved by the FDA; however, such approval is not necessary. Performed By: #### 5 7021-8 #### JACQUI Hayes ([id number]) [facility] ([facility]) [address] [place] [address] Potassium [Moles/Vol] 4.0 mmol/L Normal 3.5-5.3 [facility] Comment on above: Performed By: #### 5 7021-8 #### JACQUI Hayes ([id number]) [facility] ([facility]) [address] [place] [address] 19751 Sodium [Moles/Vol] 137 mmol/L Normal 136-145 [facility] Comment on above: Performed By: #### 5 7021-8 #### JACQUI Hayes ([id number]) [facility] ([facility]) [address] [place] [address] 66806 Urea nitrogen [Mass/Vol] 9 mg/dL Normal 6-23 [facility] Comment on above: Performed By: #### 5 7021-8 #### JACQUI Hayes ([id number]) [facility] ([facility]) [address] [place] [address] 78327 CBC panel Auto (Bld)on 06-20 Erythrocyte distribution width (RBC) [Ratio] 15.1 % High 11.5-14.5 [facility] Comment on above: Performed By: #### 5 7021-8 #### JACQUI Hayes ([id number]) [facility] ([facility]) [address] [place] [address] 59971 Hematocrit (Bld) [Volume fraction] 24.5 % Low 36.0-46.0 [facility] Comment on above: Performed By: #### 5 7021-8 #### JACQUI STYLES L ([id number]) [facility] ([facility]) [address] [place] [address] 82945 Hemoglobin (Bld) [Mass/Vol] 7.7 g/dL Low 12.0-16.0 [facility] Comment on above: Performed By: #### 5 7021-8 #### JACQUI STYLES L ([id number]) [facility] ([facility]) [address] [place] [address] 19795 MCH (RBC) [Entitic mass] 27.7 pg Normal 26.0-34.0 [facility] Comment on above: Performed By: #### 5 7021-8 #### JACQUI Hayes ([id number]) [facility] ([facility]) [id number] [place] [address] 10667 MCHC (RBC) [Mass/Vol] 31.4 g/dL Low 32.0-36.0 [facility] Comment on above: Performed By: #### 5 7021-8 #### JACQUI Hayes ([id number]) [facility] ([facility]) [id number] [place] [address] 55547 MCV (RBC) [Entitic vol] 88 fL Normal 80-100 [facility] Comment on above: Performed By: #### 5 7021-8 #### JACQUI Hayes ([id number]) [facility] ([facility]) [id number] [place] [address] 05394 Nucleated RBC/100 WBC (Bld) [Ratio] 0.0 /100 WBCs Normal 0.0-0.0 [facility] Comment on above: Performed By: #### 5 7021-8 #### JACQUI Hayes ([id number]) [facility] ([facility]) [id number] [place] [address] 45809 Platelets (Bld) [#/Vol] 602 x10*3/uL High 150-450 [facility] Comment on above: Performed By: #### 5 7021-8 #### JACQUI Hayes ([id number]) [facility] ([facility]) [id number] [place] [address] 25511 RBC (Bld) [#/Vol] 2.78 x10*6/uL Low 4.00-5.20 [facility] Comment on above: Performed By: #### 5 7021-8 #### JACQUI Hayes ([id number]) [facility] ([facility]) [id number] [place] [address] 54016 WBC (Bld) [#/Vol] 11.1 x10*3/uL Normal 4.4-11.3 [facility] Comment on above: Performed By: #### 5 7021-8 #### JACQUI Hayes ([id number]) [facility] ([facility]) [address] [place] [address] 29659 Heparin.unfractionatedon Heparin unfractionated Chromogenic method Qn (PPP) 0.7 IU/mL Normal See Comment Below for Therapeutic Ranges [facility] Comment on above: Order Comment: Obtai n 4 hours after any Heparin dosage change. Nursing to release order.The therapeutic reference range for UFH may be either 0.3-0.6 IU/mL or 0.3-0.7 IU/mL based on the clinical setting for anticoagulant therapy and the associated nomogram used. For Heparin dosing guidelines based on clinical scenario and Heparin Assay results, please refer to local Pharmacy and the [facility] Guidelines for Anticoagulation Therapy available on the [facility] intranet at: [email or web address]_ [email or web address]_[email or web address] Performed By: #### 5 7021-8 #### JACQUI Hayes ([id number]) [facility] ([facility]) [address] [place] [address] 30916 Magnesiumon 06-20-2023 Magnesium [Mass/Vol] 1.98 mg/dL Normal 1.60-2.40 [facility] Comment on above: Performed By: #### 5 7021-8 #### JACQUI Hayes ([id number]) [facility] ([facility]) [address] [place] [address] 93074 PT and aPTT panel Coag (PPP) on 06-20-2023 aPTT Coag (PPP) [Time] 156 s Critically high 27-38 [facility] Comment on above: Order Comment: The A PTT is no longer used for monitoring Unfractionated Heparin Therapy. For monitoring Heparin Therapy, use the Heparin Assay. Performed By: #### 5 7021-8 #### JACQUI Hayes ([id number]) [facility] ([facility]) [address] [place] [address] 56576 INR Coag (PPP) [Relative time] 1.5 High 0.9-1.1 [facility] Comment on above: Order Comment: The A PTT is no longer used for monitoring Unfractionated Heparin Therapy. For monitoring Heparin Therapy, use the Heparin Assay. Performed By: #### 5 7021-8 #### JACQUI Hayes ([id number]) [facility] ([facility]) [address] [place] [address] 70425 PT Coag (PPP) [Time] 16.6 s High 9.8-12.8 [facility] Comment on above: Order Comment: The A PTT is no longer used for monitoring Unfractionated Heparin Therapy. For monitoring Heparin Therapy, use the Heparin Assay. Performed By: #### 5 7021-8 #### JACQUI Hayes ([id number]) [facility] ([facility]) [address] [place] [address] 83896 Renal function 2000 panelon 06-20-2023 Albumin BCP dye [Mass/Vol] 2.8 g/dL Low 3.4-5.0 [facility] Comment on above: Performed By: #### 5 7021-8 #### JACQUI Hayes ([id number]) [facility] ([facility]) [address] [place] [address] 54168 Anion gap [Moles/Vol] 14 mmol/L Normal 10-20 [facility] Comment on above: Performed By: #### 5 7021-8 #### JACQUI STYLES L ([id number]) [facility] ([facility]) [address] [place] [address] 96920 Calcium [Mass/Vol] 8.9 mg/dL Normal 8.6-10.6 [facility] Comment on above: Performed By: #### 5 7021-8 #### JACQUI STYLES L ([id number]) [facility] ([facility]) [address] [place] [address] 61455 Chloride [Moles/Vol] 94 mmol/L Low 98-107 [facility] Comment on above: Performed By: #### 5 7021-8 #### JACQUI Hayes ([id number]) [facility] ([facility]) [address] [place] [address] CO2 [Moles/Vol] 27 mmol/L Normal 21-32 [facility] Comment on above: Performed By: #### 5 7021-8 #### JACQUI Hayes ([id number]) [facility] ([facility]) [address] [place] [address] Creatinine [Mass/Vol] 0.44 mg/dL Low 0.50-1.05 [facility] Comment on above: Performed By: #### 5 7021-8 #### JACQUI Hayes ([id number]) [facility] ([facility]) [address] [place] [address] GFR/1.73 sq M.predicted MDRD (S/P/Bld) [Vol rate/Area] mL/min/{1.73_m2} Normal >60 [facility] Comment on above: Result Comment: Calc ulations of estimated GFR are performed using the 2020 CKD-EPI Study Refit equation without the race variable for the IDMS-Traceable creatinine methods. https://jasn.asnjournals.org/content/early//ASN.77299 29479 Performed By: #### 5 7021-8 #### JACQUI Hayes ([id number]) [facility] ([facility]) [address] [place] [address] Glucose [Mass/Vol] 104 mg/dL High 74-99 [facility] Comment on above: Performed By: #### 5 7021-8 #### JACQUI Hayes ([id number]) [facility] ([facility]) [address] [place] [address] Phosphate [Mass/Vol] 4.1 mg/dL Normal 2.5-4.9 [facility] Comment on above: Result Comment: The performance characteristics of phosphorus testing in heparinized plasma have been validated by the individual laboratory site where testing is performed. Testing on heparinized plasma is not approved by the FDA; however, such approval is not necessary. Performed By: #### 5 7021-8 #### JACQUI Hayes ([id number]) [facility] ([facility]) [address] [place] [address] 10525 Potassium [Moles/Vol] 3.9 mmol/L Normal 3.5-5.3 [facility] Comment on above: Performed By: #### 5 7021-8 #### JACQUI Hayes ([id number]) [facility] ([facility]) [address] [place] [address] 45317 Sodium [Moles/Vol] 131 mmol/L Low 136-145 [facility] Comment on above: Performed By: #### 5 7021-8 #### JACQUI Hayes ([id number]) [facility] ([facility]) [address] [place] [address] 41750 Urea nitrogen [Mass/Vol] 10 mg/dL Normal 6-23 [facility] Comment on above: Performed By: #### 5 7021-8 #### JACQUI Hayes ([id number]) [facility] ([facility]) [address] [place] [address] 96024 CBC panel Auto (Bld)on 06-19 Erythrocyte distribution width (RBC) [Ratio] 14.7 % High 11.5-14.5 [facility] Comment on above: Performed By: #### 5 7021-8 #### JACQUI Hayes ([id number]) [facility] ([facility]) [address] [place] [address] 09750 Hematocrit (Bld) [Volume fraction] 24.6 % Low 36.0-46.0 [facility] Comment on above: Performed By: #### 5 7021-8 #### JACQUI Hayes ([id number]) [facility] ([facility]) [address] [place] [address] 48369 Hemoglobin (Bld) [Mass/Vol] 7.7 g/dL Low 12.0-16.0 [facility] Comment on above: Performed By: #### 5 7021-8 #### JACQUI Hayes ([id number]) [facility] ([facility]) [id number] [place] [address] 08401 MCH (RBC) [Entitic mass] 28.1 pg Normal 26.0-34.0 [facility] Comment on above: Performed By: #### 5 7021-8 #### JACQUI Hayes ([id number]) [facility] ([facility]) [id number] [place] [address] 66195 MCHC (RBC) [Mass/Vol] 31.3 g/dL Low 32.0-36.0 [facility] Comment on above: Performed By: #### 5 7021-8 #### JACQUI Hayes ([id number]) [facility] ([facility]) [address] [place] [address] 71912 MCV (RBC) [Entitic vol] 90 fL Normal 80-100 [facility] Comment on above: Performed By: #### 5 7021-8 #### JACQUI Hayes ([id number]) [facility] ([facility]) [address] [place] [address] 36211 Nucleated RBC/100 WBC (Bld) [Ratio] 0.0 /100 WBCs Normal 0.0-0.0 [facility] Comment on above: Performed By: #### 5 7021-8 #### JACQUI Hayes ([id number]) [facility] ([facility]) [address] [place] [address] 71368 Platelets (Bld) [#/Vol] 639 x10*3/uL High 150-450 [facility] Comment on above: Performed By: #### 5 7021-8 #### JACQUI Hayes ([id number]) [facility] ([facility]) [address] [place] [address] 87990 RBC (Bld) [#/Vol] 2.74 x10*6/uL Low 4.00-5.20 [facility] Comment on above: Performed By: #### 5 7021-8 #### JACQUI Hayes ([id number]) [facility] ([facility]) [address] [place] [address] 32293 WBC (Bld) [#/Vol] 13.1 x10*3/uL High 4.4-11.3 [facility] Comment on above: Performed By: #### 5 7021-8 #### JACQUI Hayes ([id number]) [facility] ([facility]) [address] [place], [place] [id number] Heparin.unfractionatedon Heparin unfractionated Chromogenic method Qn (PPP) 0.3 IU/mL Normal See Comment Below for Therapeutic Ranges [facility] Comment on above: Order Comment: Obtai n 4 hours after any Heparin dosage change. Nursing to release order.The therapeutic reference range for UFH may be either 0.3-0.6 IU/mL or 0.3-0.7 IU/mL based on the clinical setting for anticoagulant therapy and the associated nomogram used. For Heparin dosing guidelines based on clinical scenario and Heparin Assay results, please refer to local Pharmacy and the [facility] Guidelines for Anticoagulation Therapy available on the [facility] intranet at: [email or web address]_ [email or web address]_Guidelines_for_Anticoagu.aspx Performed By: #### 5 7021-8 #### JACQUI Hayes ([id number]) [facility] ([facility]) [address] [place] [address] Heparin unfractionated Chromogenic method Qn (PPP) 0.7 IU/mL Normal See Comment Below for Therapeutic Ranges [facility] Comment on above: Order Comment: Obtai n 4 hours after any Heparin dosage change. Nursing to release order.The therapeutic reference range for UFH may be either 0.3-0.6 IU/mL or 0.3-0.7 IU/mL based on the clinical setting for anticoagulant therapy and the associated nomogram used. For Heparin dosing guidelines based on clinical scenario and Heparin Assay results, please refer to local Pharmacy and the [facility] Guidelines for Anticoagulation Therapy available on the [facility] intranet at: [email or web address]_ ospitals_Guidelines_for_Anticoagu.aspx Performed By: #### 5 7021-8 #### JACQUI Hayes ([id number]) [facility] ([facility]) [address] [place] [address] 31498 Heparin unfractionated Chromogenic method Qn (PPP) 0.1 IU/mL Normal See Comment Below for Therapeutic Ranges [facility] Comment on above: Order Comment: Obtai n 4 hours after initiation of heparin infusion. Nursing to release order. The therapeutic reference range for UFH may be either 0.3-0.6 IU/mL or 0.3-0.7 IU/mL based on the clinical setting for anticoagulant therapy and the associated nomogram used. For Heparin dosing guidelines based on clinical scenario and Heparin Assay results, please refer to local Pharmacy and the [facility] Guidelines for Anticoagulation Therapy available on the [facility] intranet at: [email or web address]_ ospitals_Guidelines_for_Anticoagu.aspx Performed By: #### 3 274-8 #### JACQUI Hayes ([id number]) [facility] ([facility]) [address] [place] [address] 80569 Magnesiumon 06-19-2023 Magnesium [Mass/Vol] 2.07 mg/dL Normal 1.60-2.40 [facility] Comment on above: Performed By: #### 5 7021-8 #### JACQUI Hayes ([id number]) [facility] ([facility]) [address] [place] [address] 58761 PT and aPTT panel Coag (PPP) on 06-19-2023 aPTT Coag (PPP) [Time] 39 s High 27-38 [facility] Comment on above: Order Comment: The A PTT is no longer used for monitoring Unfractionated Heparin Therapy. For monitoring Heparin Therapy, use the Heparin Assay. Performed By: #### 5 7021-8 #### JACQUI Hayes ([id number]) [facility] ([facility]) [id number] [place] [address] 58718 INR Coag (PPP) [Relative time] 1.2 High 0.9-1.1 [facility] Comment on above: Order Comment: The A PTT is no longer used for monitoring Unfractionated Heparin Therapy. For monitoring Heparin Therapy, use the Heparin Assay. Performed By: #### 5 7021-8 #### JACQUI Hayes ([id number]) [facility] ([facility]) [address] [place] [address] 48833 PT Coag (PPP) [Time] 13.8 s High 9.8-12.8 [facility] Comment on above: Order Comment: The A PTT is no longer used for monitoring Unfractionated Heparin Therapy. For monitoring Heparin Therapy, use the Heparin Assay. Performed By: #### 5 7021-8 #### JACQUI Hayes ([id number]) [facility] ([facility]) [address] [place] [address] 42009 Renal function 2000 panelon 06-19-2023 Albumin BCP dye [Mass/Vol] 2.8 g/dL Low 3.4-5.0 [facility] Comment on above: Performed By: #### 5 7021-8 #### JACQUI Hayes ([id number]) [facility] ([facility]) [address] [place] [address] 78142 Anion gap [Moles/Vol] 15 mmol/L Normal 10-20 [facility] Comment on above: Performed By: #### 5 7021-8 #### JACQUI Hayes ([id number]) [facility] ([facility]) [address] [place] [address] 06150 Calcium [Mass/Vol] 9.0 mg/dL Normal 8.6-10.6 [facility] Comment on above: Performed By: #### 5 7021-8 #### JACQUI STYLES L ([id number]) [facility] ([facility]) [address] [place] [address] 65245 Chloride [Moles/Vol] 93 mmol/L Low 98-107 [facility] Comment on above: Performed By: #### 5 7021-8 #### JACQUI Hayes ([id number]) [facility] ([facility]) [address] [place] [address] [place] [address] CO2 [Moles/Vol] 28 mmol/L Normal 21-32 [facility] Comment on above: Performed By: #### 5 7021-8 #### JACQUI Hayes ([id number]) [facility] ([facility]) [address] [place] [address] Creatinine [Mass/Vol] 0.37 mg/dL Low 0.50-1.05 [facility] Comment on above: Performed By: #### 5 7021-8 #### JACQUI Hayes ([id number]) [facility] ([facility]) [address] [place] [address] GFR/1.73 sq M.predicted MDRD (S/P/Bld) [Vol rate/Area] mL/min/{1.73_m2} Normal >60 [facility] Comment on above: Result Comment: Calc ulations of estimated GFR are performed using the 2020 CKD-EPI Study Refit equation without the race variable for the IDMS-Traceable creatinine methods. https://jasn.asnjournals.org/content/early//ASN.53378 92141 Performed By: #### 5 7021-8 #### JACQUI Hayes ([id number]) [facility] ([facility]) [address] [place], [place] [address] Glucose [Mass/Vol] 97 mg/dL Normal 74-99 [facility] Comment on above: Performed By: #### 5 7021-8 #### JACQUI Hayes ([id number]) [facility] ([facility]) [address] [place] [address] Phosphate [Mass/Vol] 3.5 mg/dL Normal 2.5-4.9 [facility] Comment on above: Result Comment: The performance characteristics of phosphorus testing in heparinized plasma have been validated by the individual laboratory site where testing is performed. Testing on heparinized plasma is not approved by the FDA; however, such approval is not necessary. Performed By: #### 5 7021-8 #### JACQUI Hayes ([id number]) [facility] ([facility]) [id number] [place] [address] 40572 Potassium [Moles/Vol] 4.1 mmol/L Normal 3.5-5.3 [facility] Comment on above: Performed By: #### 5 7021-8 #### JACQUI Hayes ([id number]) [facility] ([facility]) [id number] [place] [address] 26100 Sodium [Moles/Vol] 132 mmol/L Low 136-145 [facility] Comment on above: Performed By: #### 5 7021-8 #### JACQUI Hayes ([id number]) [facility] ([facility]) [address] [place] [address] 77014 Urea nitrogen [Mass/Vol] 9 mg/dL Normal 6-23 [facility] Comment on above: Performed By: #### 5 7021-8 #### JACQUI Hayes ([id number]) [facility] ([facility]) [address] [place] [address] 44259 CBC panel Auto (Bld)on 06-18 Erythrocyte distribution width (RBC) [Ratio] 14.5 % Normal 11.5-14.5 [facility] Comment on above: Performed By: #### 3 274-8 #### JACQUI Hayes ([id number]) [facility] ([facility]) [address] [place] [address] 90269 Hematocrit (Bld) [Volume fraction] 24.3 % Low 36.0-46.0 [facility] Comment on above: Performed By: #### 3 274-8 #### JACQUI Hayes ([id number]) [facility] ([facility]) [address] [place] [address] 14750 Hemoglobin (Bld) [Mass/Vol] 7.7 g/dL Low 12.0-16.0 [facility] Comment on above: Performed By: #### 3 274-8 #### JACQUI Hayes ([id number]) [facility] ([facility]) [address] [place] [address] 10466 MCH (RBC) [Entitic mass] 27.6 pg Normal 26.0-34.0 [facility] Comment on above: Performed By: #### 3 274-8 #### JACQUI Hayes ([id number]) [facility] ([facility]) [id number] [place] [address] 09930 MCHC (RBC) [Mass/Vol] 31.7 g/dL Low 32.0-36.0 [facility] Comment on above: Performed By: #### 3 274-8 #### JACQUI Hayes ([id number]) [facility] ([facility]) [address] [place] [address] 68976 MCV (RBC) [Entitic vol] 87 fL Normal 80-100 [facility] Comment on above: Performed By: #### 3 274-8 #### JACQUI Hayes ([id number]) [facility] ([facility]) [address] [place] [address] 66077 Nucleated RBC/100 WBC (Bld) [Ratio] 0.0 /100 WBCs Normal 0.0-0.0 [facility] Comment on above: Performed By: #### 3 274-8 #### JACQUI Hayes ([id number]) [facility] ([facility]) [address] [place] [address] 56818 Platelets (Bld) [#/Vol] 653 x10*3/uL High 150-450 [facility] Comment on above: Performed By: #### 3 274-8 #### JACQUI Hayes ([id number]) [facility] ([facility]) [address] [place] [address] 91299 RBC (Bld) [#/Vol] 2.79 x10*6/uL Low 4.00-5.20 [facility] Comment on above: Performed By: #### 3 274-8 #### JACQUI Hayes ([id number]) [facility] ([facility]) [address] [place] [address] 11747 WBC (Bld) [#/Vol] 14.8 x10*3/uL High 4.4-11.3 [facility] Comment on above: Performed By: #### 3 274-8 #### JACQUI Hayes ([id number]) [facility] ([facility]) [address] [place] [address] 35140 Heparin.unfractionatedon Heparin unfractionated Chromogenic method Qn (PPP) 0.2 IU/mL Normal See Comment Below for Therapeutic Ranges [facility] Comment on above: Order Comment: Obtai n 4 hours after initiation of heparin infusion. Nursing to release order. The therapeutic reference range for UFH may be either 0.3-0.6 IU/mL or 0.3-0.7 IU/mL based on the clinical setting for anticoagulant therapy and the associated nomogram used. For Heparin dosing guidelines based on clinical scenario and Heparin Assay results, please refer to local Pharmacy and the [facility] Guidelines for Anticoagulation Therapy available on the [facility] intranet at: [email or web address] [email or web address]_[email or web address].aspx Performed By: #### 3 274-8 #### JACQUI Hayes ([id number]) [facility] ([facility]) [address] [place] [address] 51123 Magnesiumon 06-18-2023 Magnesium [Mass/Vol] 2.19 mg/dL Normal 1.60-2.40 [facility] Comment on above: Performed By: #### 3 274-8 #### JACQUI Hayes ([id number]) [facility] ([facility]) [address] [place], [place] [id number] PT and aPTT panel Coag (PPP) on 06-18-2023 aPTT Coag (PPP) [Time] 41 s High 27-38 [facility] Comment on above: Order Comment: Obtai n 4 hours after initiation of heparin infusion. Nursing to release order. The therapeutic reference range for UFH may be either 0.3-0.6 IU/mL or 0.3-0.7 IU/mL based on the clinical setting for anticoagulant therapy and the associated nomogram used. For Heparin dosing guidelines based on clinical scenario and Heparin Assay results, please refer to local Pharmacy and the [facility] Guidelines for Anticoagulation Therapy available on the [facility] intranet at: [email or web address]_ [email or web address]_[email or web address].aspx Performed By: #### 3 274-8 #### JACQUI Hayes ([id number]) [facility] ([facility]) [address] [place] [address] 25151 INR Coag (PPP) [Relative time] 1.2 High 0.9-1.1 [facility] Comment on above: Order Comment: Obtai n 4 hours after initiation of heparin infusion. Nursing to release order. The therapeutic reference range for UFH may be either 0.3-0.6 IU/mL or 0.3-0.7 IU/mL based on the clinical setting for anticoagulant therapy and the associated nomogram used. For Heparin dosing guidelines based on clinical scenario and Heparin Assay results, please refer to local Pharmacy and the [facility] Guidelines for Anticoagulation Therapy available on the [facility] intranet at: [email or web address]_ [email or web address]_[email or web address].aspx Performed By: #### 3 274-8 #### JACQUI Hayes ([id number]) [facility] ([facility]) [address] [place] [address] 33105 PT Coag (PPP) [Time] 13.4 s High 9.8-12.8 [facility] Comment on above: Order Comment: Obtai n 4 hours after initiation of heparin infusion. Nursing to release order. The therapeutic reference range for UFH may be either 0.3-0.6 IU/mL or 0.3-0.7 IU/mL based on the clinical setting for anticoagulant therapy and the associated nomogram used. For Heparin dosing guidelines based on clinical scenario and Heparin Assay results, please refer to local Pharmacy and the [facility] Guidelines for Anticoagulation Therapy available on the [facility] intranet at: [email or web address] [email or web address]_[email or web address].aspx Performed By: #### 3 274-8 #### JACQUI Hayes ([id number]) [facility] ([facility]) [address] [place] [address] Renal function 2000 panelon 06-18-2023 Albumin BCP dye [Mass/Vol] 2.8 g/dL Low 3.4-5.0 [facility] Comment on above: Performed By: #### 3 274-8 #### JACQUI STYLES L ([id number]) [facility] ([facility]) [id number] [place] [address] 24426 Anion gap [Moles/Vol] 15 mmol/L Normal 10-20 [facility] Comment on above: Performed By: #### 3 274-8 #### JACQUI STYLES L ([id number]) [facility] ([facility]) [address] [place] [address] 07278 Calcium [Mass/Vol] 8.6 mg/dL Normal 8.6-10.6 [facility] Comment on above: Performed By: #### 3 274-8 #### JACQUI STYLES L ([id number]) [facility] ([facility]) [id number] [place] [address] 16362 Chloride [Moles/Vol] 91 mmol/L Low 98-107 [facility] Comment on above: Performed By: #### 3 274-8 #### JACQUI STYLES L ([id number]) [facility] ([facility]) [id number] [place] [address] 99064 CO2 [Moles/Vol] 31 mmol/L Normal 21-32 [facility] Comment on above: Performed By: #### 3 274-8 #### JACQUI STYLES L ([id number]) [facility] ([facility]) [address] [place] [address] 79406 Creatinine [Mass/Vol] 0.57 mg/dL Normal 0.50-1.05 [facility] Comment on above: Performed By: #### 3 274-8 #### JACQUI STYLES L ([id number]) [facility] ([facility]) [address] [place] [address] 05881 GFR/1.73 sq M.predicted MDRD (S/P/Bld) [Vol rate/Area] 90 mL/min/1.73m*2 Normal >60 [facility] Comment on above: Result Comment: Calc ulations of estimated GFR are performed using the 2020 CKD-EPI Study Refit equation without the race variable for the IDMS-Traceable creatinine methods. https://jasn.asnjournals.org/content//ASN.10353 30108 Performed By: #### 3 274-8 #### JACQUI Hayes ([id number]) [facility] ([facility]) [address] [place] [address] Glucose [Mass/Vol] 85 mg/dL Normal 74-99 [facility] Comment on above: Performed By: #### 3 274-8 #### JACQUI Hayes ([id number]) [facility] ([facility]) [address] [place] [address] Phosphate [Mass/Vol] 3.3 mg/dL Normal 2.5-4.9 [facility] Comment on above: Result Comment: The performance characteristics of phosphorus testing in heparinized plasma have been validated by the individual laboratory site where testing is performed. Testing on heparinized plasma is not approved by the FDA; however, such approval is not necessary. Performed By: #### 3 274-8 #### JACQUI Hayes ([id number]) [facility] ([facility]) [address] [place] [address] Potassium [Moles/Vol] 4.2 mmol/L Normal 3.5-5.3 [facility] Comment on above: Performed By: #### 3 274-8 #### JACQUI Hayes ([id number]) [facility] ([facility]) [id number] [place] [address] 44056 Sodium [Moles/Vol] 133 mmol/L Low 136-145 [facility] Comment on above: Performed By: #### 3 274-8 #### JACQUI Hayes ([id number]) [facility] ([facility]) [id number] [place] [address] 82925 Urea nitrogen [Mass/Vol] 11 mg/dL Normal 6-23 [facility] Comment on above: Performed By: #### 3 274-8 #### JACQUI Hayes ([id number]) [facility] ([facility]) [address] [place] [address] 67612 CBC panel Auto (Bld)on 06-17 Erythrocyte distribution width (RBC) [Ratio] 14.0 % Normal 11.5-14.5 [facility] Comment on above: Performed By: #### 3 274-8 #### JACQUI Hayes ([id number]) [facility] ([facility]) [address] [place] [address] 71582 Hematocrit (Bld) [Volume fraction] 24.8 % Low 36.0-46.0 [facility] Comment on above: Performed By: #### 3 274-8 #### JACQUI Hayes ([id number]) [facility] ([facility]) [address] [place] [address] 75311 Hemoglobin (Bld) [Mass/Vol] 7.9 g/dL Low 12.0-16.0 [facility] Comment on above: Performed By: #### 3 274-8 #### JACQUI Hayes ([id number]) [facility] ([facility]) [address] [place] [address] 06736 MCH (RBC) [Entitic mass] 27.7 pg Normal 26.0-34.0 [facility] Comment on above: Performed By: #### 3 274-8 #### JACQUI Hayes ([id number]) [facility] ([facility]) [address] [place] [address] 04580 MCHC (RBC) [Mass/Vol] 31.9 g/dL Low 32.0-36.0 [facility] Comment on above: Performed By: #### 3 274-8 #### JACQUI Hayse ([id number]) [facility] ([facility]) [address] [place] [address] 78391 MCV (RBC) [Entitic vol] 87 fL Normal 80-100 [facility] Comment on above: Performed By: #### 3 274-8 #### JACQUI Hayes ([id number]) [facility] ([facility]) [address] [place] [address] 61867 Nucleated RBC/100 WBC (Bld) [Ratio] 0.0 /100 WBCs Normal 0.0-0.0 [facility] Comment on above: Performed By: #### 3 274-8 #### JACQUI Hayes ([id number]) [facility] ([facility]) [address] [place] [address] 57257 Platelets (Bld) [#/Vol] 655 x10*3/uL High 150-450 [facility] Comment on above: Performed By: #### 3 274-8 #### JACQUI Hayes ([id number]) [facility] ([facility]) [address] [place] [address] 12554 RBC (Bld) [#/Vol] 2.85 x10*6/uL Low 4.00-5.20 [facility] Comment on above: Performed By: #### 3 274-8 #### JACQUI Hayes ([id number]) [facility] ([facility]) [address] [place] [address] 55636 WBC (Bld) [#/Vol] 17.2 x10*3/uL High 4.4-11.3 [facility] Comment on above: Performed By: #### 3 274-8 #### JACQUI Hayes ([id number]) [facility] ([facility]) [address] [place] [address] 60194 Clostridioides difficile tox in A+B tcdA+tcdB geneson 06-17-2023 C. difficile toxin A+B tcdA+tcdB genes ROBY+probe Ql (Stl) Clostridioides difficile toxin A+B tcdA+tcdB genes Not Detected Normal Not Detected [facility] Comment on above: Order Comment: Obtai n 4 hours after initiation of heparin infusion. Nursing to release order. The therapeutic reference range for UFH may be either 0.3-0.6 IU/mL or 0.3-0.7 IU/mL based on the clinical setting for anticoagulant therapy and the associated nomogram used. For Heparin dosing guidelines based on clinical scenario and Heparin Assay results, please refer to local Pharmacy and the [facility] Guidelines for Anticoagulation Therapy available on the [facility] intranet at: [email or web address] Performed By: #### 3 274-8 #### JACQUI Hayes ([id number]) [facility] ([facility]) [address] [place] [address] 60037 Heparin.unfractionatedon Heparin unfractionated Chromogenic method Qn (PPP) 0.3 IU/mL Normal See Comment Below for Therapeutic Ranges [facility] Comment on above: Order Comment: This assay has received FDA Emergency Use Authorization (EUA) and is only authorized for the duration of time that circumstances exist to justify the authorization of the emergency use of in vitro diagnostic tests for the detection of SARS-CoV-2 virus and/or diagnosis of COVID-19 infection under section 564(b)(1) of the Act, 21 U.S.C. 360bbb-3(b)(1). This assay is an in vitro diagnostic nucleic acid amplification test for the qualitative detection of SARS-CoV-2 from nasopharyngeal specimens and has been validated for use at [facility]. Negative results do not preclude COVID-19 infections and should not be used as the sole basis for diagnosis, treatment, or other management decisions. Performed By: #### 9 4500-6 #### JACQUI Hayes ([id number]) [facility] ([facility]) [id number] [place] [address] 79090 Magnesiumon 06-17-2023 Magnesium [Mass/Vol] 2.19 mg/dL Normal 1.60-2.40 [facility] Comment on above: Performed By: #### 3 274-8 #### JACQUI Hayes ([id number]) [facility] ([facility]) [id number] [place] [address] 49969 Renal function 2000 panelon 06-17-2023 Albumin BCP dye [Mass/Vol] 3.0 g/dL Low 3.4-5.0 [facility] Comment on above: Performed By: #### 3 274-8 #### JACQUI Hayes ([id number]) [facility] ([facility]) [address] [place] [address] Anion gap [Moles/Vol] 12 mmol/L Normal 10-20 [facility] Comment on above: Performed By: #### 3 274-8 #### JACQUI Hayes ([id number]) [facility] ([facility]) [id number] [place] [address] 58596 Calcium [Mass/Vol] 8.9 mg/dL Normal 8.6-10.6 [facility] Comment on above: Performed By: #### 3 274-8 #### JACQUI Hayes ([id number]) [facility] ([facility]) [id number] [place] [address] 07128 Chloride [Moles/Vol] 89 mmol/L Low 98-107 [facility] Comment on above: Performed By: #### 3 274-8 #### JACQUI Hayes ([id number]) [facility] ([facility]) [id number] [place] [address] 57466 CO2 [Moles/Vol] 33 mmol/L High 21-32 [facility] Comment on above: Performed By: #### 3 274-8 #### JACQUI Hayes ([id number]) [facility] ([facility]) [id number] [place] [address] 27987 Creatinine [Mass/Vol] 0.55 mg/dL Normal 0.50-1.05 [facility] Comment on above: Performed By: #### 3 274-8 #### JACQUI Hayes ([id number]) [facility] ([facility]) [id number] [place] [address] 20892 GFR/1.73 sq M.predicted MDRD (S/P/Bld) [Vol rate/Area] mL/min/{1.73_m2} Normal >60 [facility] Comment on above: Result Comment: Calc ulations of estimated GFR are performed using the 2020 CKD-EPI Study Refit equation without the race variable for the IDMS-Traceable creatinine methods. https://jasn.asnjournals.org/content/early//ASN.49391 80384 Performed By: #### 3 274-8 #### AJCQUI Hayes ([id number]) [facility] ([facility]) [address] [place] [address] Glucose [Mass/Vol] 106 mg/dL High 74-99 [facility] Comment on above: Performed By: #### 3 274-8 #### JACQUI Hayes ([id number]) [facility] ([facility]) [id number] [place] [address] 68102 Phosphate [Mass/Vol] 2.8 mg/dL Normal 2.5-4.9 [facility] Comment on above: Result Comment: The performance characteristics of phosphorus testing in heparinized plasma have been validated by the individual laboratory site where testing is performed. Testing on heparinized plasma is not approved by the FDA; however, such approval is not necessary. Performed By: #### 3 274-8 #### JACQUI Hayes ([id number]) [facility] ([facility]) [id number] [place] [address] 84749 Potassium [Moles/Vol] 3.4 mmol/L Low 3.5-5.3 [facility] Comment on above: Performed By: #### 3 274-8 #### JACQUI Hayes ([id number]) [facility] ([facility]) [address] [place] [address] Sodium [Moles/Vol] 131 mmol/L Low 136-145 [facility] Comment on above: Performed By: #### 3 274-8 #### JACQUI Hayes ([id number]) [facility] ([facility]) [address] [place] [address] Urea nitrogen [Mass/Vol] 10 mg/dL Normal 6-23 [facility] Comment on above: Performed By: #### 3 274-8 #### JACQUI Hayes ([id number]) [facility] ([facility]) [address] [place] [address] 21423 Bacteria identifiedon 2022 Bacteria identified Cx Nom (Bld) Test: Blood Culture Specimen Source: Peripheral Venipuncture Specimen Type: Blood culture Specimen Date: 06/16/2023 5:02 PM Result Date: 06/20/2023 6:01 PM Result Status: Final result Abnormal: No Resulting Lab: [facility] [address] [place] [address] 56836 CULTURE No growth at 4 days - FINAL REPORT Normal [facility] Comment on above: Performed By: #### 9 4500-6 #### JACQUI Hayes ([id number]) [facility] ([facility]) [address] [place] [address] 95829 CBC panel Auto (Bld)on 06-16 Erythrocyte distribution width (RBC) [Ratio] 14.0 % Normal 11.5-14.5 [facility] Comment on above: Performed By: #### 9 4500-6 #### JACQUI Hayes ([id number]) [facility] ([facility]) [address] [place] [address] 04955 Hematocrit (Bld) [Volume fraction] 24.6 % Low 36.0-46.0 [facility] Comment on above: Performed By: #### 9 4500-6 #### JACQUI Hayes ([id number]) [facility] ([facility]) [address] [place] [address] 05781 Hemoglobin (Bld) [Mass/Vol] 8.1 g/dL Low 12.0-16.0 [facility] Comment on above: Performed By: #### 9 4500-6 #### JACQUI Hayes ([id number]) [facility] ([facility]) [address] [place] [address] 29629 MCH (RBC) [Entitic mass] 27.8 pg Normal 26.0-34.0 [facility] Comment on above: Performed By: #### 9 4500-6 #### JACQUI Hayes ([id number]) [facility] ([facility]) [address] [place] [address] 25104 MCHC (RBC) [Mass/Vol] 32.9 g/dL Normal 32.0-36.0 [facility] Comment on above: Performed By: #### 9 4500-6 #### JACQUI Hayes ([id number]) [facility] ([facility]) [id number] [place] [address] 05001 MCV (RBC) [Entitic vol] 85 fL Normal 80-100 [facility] Comment on above: Performed By: #### 9 4500-6 #### JACQUI Hayes ([id number]) [facility] ([facility]) [address] [place] [address] 93799 Nucleated RBC/100 WBC (Bld) [Ratio] 0.0 /100 WBCs Normal 0.0-0.0 [facility] Comment on above: Performed By: #### 9 4500-6 #### JACQUI Hayes ([id number]) [facility] ([facility]) [address] [place] [address] 02419 Platelets (Bld) [#/Vol] 600 x10*3/uL High 150-450 [facility] Comment on above: Performed By: #### 9 4500-6 #### JACQUI Hayes ([id number]) [facility] ([facility]) [address] [place] [address] 60897 RBC (Bld) [#/Vol] 2.91 x10*6/uL Low 4.00-5.20 [facility] Comment on above: Performed By: #### 9 4500-6 #### JACQUI Hayes ([id number]) [facility] ([facility]) [address] [place] [address] 10565 WBC (Bld) [#/Vol] 19.3 x10*3/uL High 4.4-11.3 [facility] Comment on above: Performed By: #### 9 4500-6 #### JACQUI Hayes ([id number]) [facility] ([facility]) [address] [place] [address] 83905 Erythrocyte distribution width (RBC) [Ratio] 13.7 % Normal 11.5-14.5 [facility] Comment on above: Performed By: #### 2 4323-8 #### JACQUI Hayes ([id number]) [facility] ([facility]) [address] [place] [address] 74126 Hematocrit (Bld) [Volume fraction] 23.5 % Low 36.0-46.0 [facility] Comment on above: Performed By: #### 2 4323-8 #### JACQUI Hayes ([id number]) [facility] ([facility]) [address] [place] [address] 69046 Hemoglobin (Bld) [Mass/Vol] 7.8 g/dL Low 12.0-16.0 [facility] Comment on above: Performed By: #### 2 4323-8 #### JACQUI Hayes ([id number]) [facility] ([facility]) [address] [place] [address] 88312 MCH (RBC) [Entitic mass] 27.5 pg Normal 26.0-34.0 [facility] Comment on above: Performed By: #### 2 4323-8 #### JACQUI Hayes ([id number]) [facility] ([facility]) [address] [place] [address] 69659 MCHC (RBC) [Mass/Vol] 33.2 g/dL Normal 32.0-36.0 [facility] Comment on above: Performed By: #### 2 4323-8 #### JACQUI Hayes ([id number]) [facility] ([facility]) [address] [place] [address] 64984 MCV (RBC) [Entitic vol] 83 fL Normal 80-100 [facility] Comment on above: Performed By: #### 2 4323-8 #### JACQUI Hayes ([id number]) [facility] ([facility]) [address] [place] [address] 48006 Nucleated RBC/100 WBC (Bld) [Ratio] 0.0 /100 WBCs Normal 0.0-0.0 [facility] Comment on above: Performed By: #### 2 4323-8 #### JACQUI Hayes ([id number]) [facility] ([facility]) [address] [place] [address] 40425 Platelet mean volume (Bld) [Entitic vol] 8.1 fL Normal 7.5-11.5 [facility] Comment on above: Performed By: #### 2 4323-8 #### JACQUI Hayes ([id number]) [facility] ([facility]) [address] [place] [address] 17909 Platelets (Bld) [#/Vol] 603 x10*3/uL High 150-450 [facility] Comment on above: Performed By: #### 2 4323-8 #### JACQUI Hayes ([id number]) [facility] ([facility]) [address] [place] [address] 58742 RBC (Bld) [#/Vol] 2.84 x10*6/uL Low 4.00-5.20 [facility] Comment on above: Performed By: #### 2 4323-8 #### JACQUI Hayes ([id number]) [facility] ([facility]) [address] [place] [address] 62574 WBC (Bld) [#/Vol] 17.4 x10*3/uL High 4.4-11.3 [facility] Comment on above: Performed By: #### 2 4323-8 #### JACQUI Hayes ([id number]) [facility] ([facility]) [address] [place] [address] 49677 Coagulation surface inducedo n 06-16-2023 aPTT Coag (PPP) [Time] 32 s Normal 27-38 [facility] Comment on above: Order Comment: This assay has received FDA Emergency Use Authorization (EUA) and is only authorized for the duration of time that circumstances exist to justify the authorization of the emergency use of in vitro diagnostic tests for the detection of SARS-CoV-2 virus and/or diagnosis of COVID-19 infection under section 564(b)(1) of the Act, 21 U.S.C. 360bbb-3(b)(1). This assay is an in vitro diagnostic nucleic acid amplification test for the qualitative detection of SARS-CoV-2 from nasopharyngeal specimens and has been validated for use at [facility]. Negative results do not preclude COVID-19 infections and should not be used as the sole basis for diagnosis, treatment, or other management decisions. Performed By: #### 9 4500-6 #### JACQUI Hayes ([id number]) [facility] ([facility]) [address] [place] [address] Heparin.unfractionatedon Heparin unfractionated Chromogenic method Qn (PPP) 0.4 IU/mL Normal See Comment Below for Therapeutic Ranges [facility] Comment on above: Order Comment: This assay has received FDA Emergency Use Authorization (EUA) and is only authorized for the duration of time that circumstances exist to justify the authorization of the emergency use of in vitro diagnostic tests for the detection of SARS-CoV-2 virus and/or diagnosis of COVID-19 infection under section 564(b)(1) of the Act, 21 U.S.C. 360bbb-3(b)(1). This assay is an in vitro diagnostic nucleic acid amplification test for the qualitative detection of SARS-CoV-2 from nasopharyngeal specimens and has been validated for use at [facility]. Negative results do not preclude COVID-19 infections and should not be used as the sole basis for diagnosis, treatment, or other management decisions. Performed By: #### 9 4500-6 #### JACQUI Hayes ([id number]) [facility] ([facility]) [address] [place] [address] Heparin unfractionated Chromogenic method Qn (PPP) 0.1 IU/mL Normal See Comment Below for Therapeutic Ranges [facility] Comment on above: Order Comment: This assay has received FDA Emergency Use Authorization (EUA) and is only authorized for the duration of time that circumstances exist to justify the authorization of the emergency use of in vitro diagnostic tests for the detection of SARS-CoV-2 virus and/or diagnosis of COVID-19 infection under section 564(b)(1) of the Act, 21 U.S.C. 360bbb-3(b)(1). This assay is an in vitro diagnostic nucleic acid amplification test for the qualitative detection of SARS-CoV-2 from nasopharyngeal specimens and has been validated for use at [facility]. Negative results do not preclude COVID-19 infections and should not be used as the sole basis for diagnosis, treatment, or other management decisions. Performed By: #### 9 4500-6 #### JACQUI Hayes ([id number]) [facility] ([facility]) [address] [place] [address] 43877 Renal function 2000 panelon 06-16-2023 Albumin BCP dye [Mass/Vol] 2.6 g/dL Low 3.4-5.0 [facility] Comment on above: Performed By: #### 2 4323-8 #### JACQUI STYLES L ([id number]) [facility] ([facility]) [address] [place] [address] 97518 Anion gap [Moles/Vol] 15 mmol/L Normal 10-20 [facility] Comment on above: Performed By: #### 2 4323-8 #### JACQUI DOWNEYMOCELESTE L ([id number]) [facility] ([facility]) [address] [place] [address] 45219 Calcium [Mass/Vol] 8.4 mg/dL Low 8.6-10.6 [facility] Comment on above: Performed By: #### 2 4323-8 #### JACQUI DOWNEYMOTZER L ([id number]) [facility] ([facility]) [address] [place] [address] 20367 Chloride [Moles/Vol] 87 mmol/L Low 98-107 [facility] Comment on above: Performed By: #### 2 4323-8 #### JACQUI DOWNEYMOTZER L ([id number]) [facility] ([facility]) [address] [place] [address] 40611 CO2 [Moles/Vol] 30 mmol/L Normal 21-32 [facility] Comment on above: Performed By: #### 2 4323-8 #### JACQUI Hayes ([id number]) [facility] ([facility]) [address] [place] [address] Creatinine [Mass/Vol] 0.71 mg/dL Normal 0.50-1.05 [facility] Comment on above: Performed By: #### 2 4323-8 #### JACQUI Hayes ([id number]) [facility] ([facility]) [address] [place] [address] GFR/1.73 sq M.predicted MDRD (S/P/Bld) [Vol rate/Area] 84 mL/min/1.73m*2 Normal >60 [facility] Comment on above: Result Comment: Calc ulations of estimated GFR are performed using the 2020 CKD-EPI Study Refit equation without the race variable for the IDMS-Traceable creatinine methods. https://jasn.asnjournals.org/content/early//ASN.58211 24560 Performed By: #### 2 4323-8 #### JACQUI Hayes ([id number]) [facility] ([facility]) [address] [place] [address] 44684 Glucose [Mass/Vol] 95 mg/dL Normal 74-99 [facility] Comment on above: Performed By: #### 2 4323-8 #### JACQUI Hayes ([id number]) [facility] ([facility]) [address] [place] [address] 32535 Phosphate [Mass/Vol] 3.7 mg/dL Normal 2.5-4.9 [facility] Comment on above: Result Comment: The performance characteristics of phosphorus testing in heparinized plasma have been validated by the individual laboratory site where testing is performed. Testing on heparinized plasma is not approved by the FDA; however, such approval is not necessary. Performed By: #### 2 4323-8 #### JACQUI Hayes ([id number]) [facility] ([facility]) [address] [place] [address] 63881 Potassium [Moles/Vol] 3.6 mmol/L Normal 3.5-5.3 [facility] Comment on above: Performed By: #### 2 4323-8 #### JACQUI GAER L ([id number]) [facility] ([facility]) [address] [place] [address] 10732 Sodium [Moles/Vol] 128 mmol/L Low 136-145 [facility] Comment on above: Performed By: #### 2 4323-8 #### JACQUI SCHMOTZER L ([id number]) [facility] ([facility]) [address] [place] [address] 11061 Urea nitrogen [Mass/Vol] 14 mg/dL Normal 6-23 [facility] Comment on above: Performed By: #### 2 4323-8 #### JACQUI GAER L ([id number]) [facility] ([facility]) [address] [place] [address] 79271 TRANSTHORACIC ECHO (TTE) [facility] 06-16-2023 TRANSTHORACIC ECHO (TTE) [facility], [address] [place] [address] 36091 and TRANSTHORACIC ECHOCARDIOGRAM REPORT Patient Name: MODESTA COOK Adam Physician: [id number] Star Garnica MD Study Date: 06/16/2023 Ordering Provider: [id number] EMILY BILL MRN/PID: [id number] Fellow: Nurse: Date of /Age: 1 1940 / 82 years Physically Impaired Teacher: Melanie Stahl RDCS Gender: F Additional Staff: Charbel Dobbs RDCS Height: 157.48 cm Admit Date: 06/08/2023 Weight: 71.22 kg Admission Status: Inpatient - Routine BSA: 1.72 m2 Department Location: [facility] Non Invasive Blood Pressure: 144 /71 mmHg Study Type: TRANSTHORACIC ECHO (TTE) LIMITED Diagnosis/ICD: Other pericardial effusion (noninflammatory)-I31.39 Indication: Pericardial effusion CPT Code: Doppler Limited-15177; Echo Limited-35513 Patient History: Pertinent History: Afib, ANNABELLE, HTN, DLD, SOB, pericardial effusion. Study Detail: The following Echo studies were performed: 2D, M-Mode and Doppler. PHYSICIAN INTERPRETATION: Left Ventricle: The left ventricular systolic function is normal, with an estimated ejection fraction of 65%. The left ventricular cavity size is normal. Left ventricular diastolic filling was not assessed. Left Atrium: The left atrium is normal in size. Right Ventricle: The right ventricle is suspected normal in size. There is suspected normal right ventricular global systolic function. RV poorly visualized. Right Atrium: The right atrium is suspected normal in size. Aortic Valve: The aortic valve is probably trileaflet. There is minimal aortic valve cusp calcification. There is aortic valve annular calcification. Aortic valve regurgitation was not assessed. Mitral Valve: The mitral valve is normal in structure. There is mild mitral annular calcification. Mitral valve regurgitation was not assessed. Tricuspid Valve: The tricuspid valve was not well visualized. Tricuspid regurgitation was not assessed. Pulmonic Valve: The pulmonic valve is not well visualized. Pulmonic valve regurgitation was not assessed. Pericardium: There appears to be a trivial to small pericardial effusion. Aorta: The aortic root is normal. Systemic Veins: The inferior vena cava appears to be of normal size. CONCLUSIONS: 1. Poorly visualized anatomical structures due to very suboptimal image quality. 2. Left ventricular systolic function is normal with a 65% estimated ejection fraction. 3. There appears to be a trivial to small pericardial effusion. QUANTITATIVE DATA SUMMARY: 2D MEASUREMENTS: Normal Ranges: LAs: 3.30 cm (2.7-4.0cm) IVSd: 1.10 cm (0.6-1.1cm) LVPWd: 0.90 cm (0.6-1.1cm) LVIDd: 4.30 cm (3.9-5.9cm) LVIDs: 2.70 cm LV Mass Index: 82.6 g/m2 LV % FS 37.2 % AORTA MEASUREMENTS: Normal Ranges: Ao Sinus, d: 3.20 cm (2.1-3.5cm) TRICUSPID VALVE/RVSP: Normal Ranges: IVC Diam: 1.70 cm [id number] Star Garnica MD Electronically signed on 06/16/2023 at 1:58:40 PM Final [facility] ANTIBODY IDENTIFICATIONon Blood group antibody investigation (P/RBC) [Interp] ANTI-K [facility] Comment on above: Performed By: #### 2 4323-8 #### JACQUI Hayes ([id number]) [facility] ([facility]) [address] [place] [address] CASE # [id number] [facility] Comment on above: Performed By: #### 2 4323-8 #### JACQUI Hayes ([id number]) [facility] ([facility]) [address] [place], [place] [address] Blood type and Indirect anti body screen panel (Bld)on 06-15-2023 ABO group Nom (Bld) B [facility] Comment on above: Performed By: #### 2 4322-8 #### JACQUI Hayes ([id number]) [facility] ([facility]) [address] [place] [address] Blood group antibody screen Ql Positive [facility] Comment on above: Performed By: #### 2 432-8 #### JACQUI Hayes ([id number]) [facility] ([facility]) [address] [place], [place] [address] D Ag Ql (Bld) Positive [facility] Comment on above: Performed By: #### 2 4322-8 #### JACQUI Hayes ([id number]) [facility] ([facility]) [address] [place] [address] 83204 CBC panel Auto (Bld)on 06-15 Erythrocyte distribution width (RBC) [Ratio] 13.9 % Normal 11.5-14.5 [facility] Comment on above: Performed By: #### 2 3-8 #### JACQUI Hayes ([id number]) [facility] ([facility]) [address] [place], [place] [address] Hematocrit (Bld) [Volume fraction] 21.7 % Low 36.0-46.0 [facility] Comment on above: Performed By: #### 2 4322-8 #### JACQUI Hayes ([id number]) [facility] ([facility]) [address] [place] [address] Hemoglobin (Bld) [Mass/Vol] 6.8 g/dL Low 12.0-16.0 [facility] Comment on above: Performed By: #### 2 4323-8 #### JACQUI Hayes ([id number]) [facility] ([facility]) [address] [place] [address] 63697 MCH (RBC) [Entitic mass] 26.5 pg Normal 26.0-34.0 [facility] Comment on above: Performed By: #### 2 4323-8 #### JACQUI Hayes ([id number]) [facility] ([facility]) [address] [place] [address] 53442 MCHC (RBC) [Mass/Vol] 31.3 g/dL Low 32.0-36.0 [facility] Comment on above: Performed By: #### 2 4323-8 #### JACQUI Hayes ([id number]) [facility] ([facility]) [address] [place] [address] 36048 MCV (RBC) [Entitic vol] 84 fL Normal 80-100 [facility] Comment on above: Performed By: #### 2 4323-8 #### JACQUI Hayes ([id number]) [facility] ([facility]) [address] [place] [address] 73422 Nucleated RBC/100 WBC (Bld) [Ratio] 0.0 /100 WBCs Normal 0.0-0.0 [facility] Comment on above: Performed By: #### 2 4323-8 #### JACQUI Hayes ([id number]) [facility] ([facility]) [address] [place] [address] 89209 Platelet mean volume (Bld) [Entitic vol] 8.5 fL Normal 7.5-11.5 [facility] Comment on above: Performed By: #### 2 4323-8 #### JACQUI Hayes ([id number]) [facility] ([facility]) [address] [place] [address] 77154 Platelets (Bld) [#/Vol] 642 x10*3/uL High 150-450 [facility] Comment on above: Performed By: #### 2 4323-8 #### JACQUI Hayes ([id number]) [facility] ([facility]) [address] [place] [address] RBC (Bld) [#/Vol] 2.57 x10*6/uL Low 4.00-5.20 [facility] Comment on above: Performed By: #### 2 4323-8 #### JACQUI STYLES L ([id number]) [facility] ([facility]) [address] [place] [address] WBC (Bld) [#/Vol] 18.0 x10*3/uL High 4.4-11.3 [facility] Comment on above: Performed By: #### 2 4323-8 #### JACQUI Hayes ([id number]) [facility] ([facility]) [address] [place] [address] IR EMBOLIZATIONon 06-15-2023 IR EMBOLIZATION Interpreted By: Joni White, STUDY: IR EMBOLIZATION; ; 06/15/2023 6:10 pm 1. ULTRASOUND-GUIDED RIGHT COMMON FEMORAL ARTERY ACCESS 2. RETROGRADE RIGHT COMMON FEMORAL ARTERIOGRAM 3. LEFT EXTERNAL ILIAC ARTERIOGRAM 4. LEFT INFERIOR EPIGASTRIC ARTERIOGRAM 5. SELECTIVE DOWNSTREAM LEFT INFERIOR EPIGASTRIC ARTERIOGRAM 6. COIL EMBOLIZATION LEFT INFERIOR EPIGASTRIC ARTERY 7. POSTEMBOLIZATION LEFT INFERIOR EPIGASTRIC ARTERIOGRAM 8. POSTEMBOLIZATION LEFT EXTERNAL ILIAC ARTERIOGRAM 9. PERCUTANEOUS CLOSURE [id number] INDICATION: Signs/Symptoms:embolizati on. 82-year-old woman with left rectus sheath hematoma, increasing in size with active extravasation and anemia. COMPARISON: CT abdomen pelvis 06/14/2023, 06/11/2023 ACCESSION NUMBER(S): [id number] ORDERING CLINICIAN: EMILY BILL TECHNIQUE: ATTENDING RETAIL LOSS PREVENTION INVESTIGATOR: Joni Blanco M.D. TECHNICAL DESCRIPTION/FINDINGS: The procedure, including all risks, benefits and alternatives were explained to the patient in detail. All questions were answered and written informed consent was obtained. The patient was positioned supine on the angiography table. A time-out was performed. The right groin was prepped and draped in usual sterile fashion. Focused ultrasound was performed of the right common femoral artery demonstrating patency and pulsatility. Ultrasound images were saved. 1% lidocaine was administered subcutaneously for local anesthesia. Using a combination of fluoroscopic landmarks and real-time ultrasound guidance, the right common femoral artery was accessed in retrograde direction using micropuncture technique. Ultrasound images were saved. Under fluoroscopic visualization, an 018 guidewire was advanced into the right common iliac artery and micropuncture transitional introducer was utilized for placement of a suprarenal 035 Bentson guidewire. Over the Bentson guidewire, a retrograde 5 Finnish vascular sheath was placed. A retrograde right common femoral arteriogram was performed demonstrating arterial access at the level of the right femoral head with vascular caliber suitable for percutaneous closure device. A 5 Finnish Sos 2 catheter was formed in the abdominal aorta and utilized to select the contralateral left common iliac artery. An 035 glidewire was advanced into the left superficial femoral artery. A 5 Finnish glide catheter was then exchanged for the Sos catheter positioned in the left superficial femoral artery. An attempt was made to place an 035 rows in wire through the glide catheter however because of aortoiliac tortuosity, the wire resulted in catheter retraction. The pros and wire was removed and an 035 stiff Glidewire was then advanced through the glide catheter into left SFA. The glide catheter and short 5 Finnish sheath were removed and over the stiff Glidewire, a 6 Finnish by 45 cm sheath was then positioned antegrade in the left external iliac artery. A left external iliac arteriogram was performed demonstrating the origin of the tortuous left inferior epigastric artery arising from the downstream left external iliac artery. There appears to be abnormal caliber change with spasm and dilation of ascending branches of the left inferior epigastric artery. Circumflex iliac arteries are opacified without evidence of downstream bleeding. Some contrast is shown to reflux into the left internal iliac artery. In coaxial fashion, a 5 Finnish C2 catheter loaded with a Renegade STC microcatheter in 016 fathom microwire were then advanced through the 6 Finnish sheath and used to select the left inferior epigastric artery. An inferior epigastric arteriogram was performed demonstrating few descending branches, with the majority of flow ascending toward the location of the previously shown hematoma. The microcatheter was then advanced distally into the left internal iliac artery more selectively in a subsequent arteriogram was performed demonstrating abnormal spasm with alternating areas of dilation distal left inferior epigastric arteries, in the location of the recently shown expanding left rectus sheath hematoma. No active extravasation is appreciated. The microcatheter and microwire were then advanced distally into the left inferior epigastric artery where additional arteriography was performed confirming position, with redemonstration of abnormal spasm, presumed adjacent to the hematoma. With the microcatheter in the distal aspect of the left inferior epigastric artery, coil embolization was performed with multiple detachable embolization coils while retracted toward the left inferior epigastric artery origin. A post inferior epigastric arteriogram was performed demonstrating complete occlusion of a majority of left inferior epigastric arterial perfusion including ascending branches toward the previously shown hematoma. There is persistent patency (more content not included)... [facility] Comment on above: Order Comment: This assay has received FDA Emergency Use Authorization (EUA) and is only authorized for the duration of time that circumstances exist to justify the authorization of the emergency use of in vitro diagnostic tests for the detection of SARS-CoV-2 virus and/or diagnosis of COVID-19 infection under section 564(b)(1) of the Act, 21 U.S.C. 360bbb-3(b)(1). This assay is an in vitro diagnostic nucleic acid amplification test for the qualitative detection of SARS-CoV-2 from nasopharyngeal specimens and has been validated for use at [facility]. Negative results do not preclude COVID-19 infections and should not be used as the sole basis for diagnosis, treatment, or other management decisions. PATH REVIEW-IMMUNOHEMATOLOGY on 06-15-2023 PATH [id number] SEE COMMENT [facility] Comment on above: Result Comment: ANTI BODY DETECTION SCREEN IS POSITIVE. ANTIBODY IDENTIFICATION PANEL WAS PERFORMED. THE AUTOCONTROL IS NEGATIVE. PREVIOUSLY IDENTIFIED ALLOANTIBODY ANTI-K(KEL1) IS REACTING. ALL OTHER COMMON CLINICALLY SIGNIFICANT ALLOANTIBODIES HAVE BEEN RULED OUT. FULL CROSSMATCHED K(KEL1)-ANTIGEN NEGATIVE DONOR RBC UNITS SHOULD BE SELECTED FOR TRANSFUSION FOR THIS PATIENT. . By the signature on this report, the individual or group listed as making the Final Interpretation/Diagnosis certifies that they have reviewed this case. Performed By: #### 9 4500-6 #### JACQUI STYLES L ([id number]) [facility] ([facility]) [address] [place] [address] Renal function 2000 panelon 06-15-2023 Albumin BCP dye [Mass/Vol] 2.9 g/dL Low 3.4-5.0 [facility] Comment on above: Performed By: #### 2 4323-8 #### JACQUI STYLES L ([id number]) [facility] ([facility]) [address] [place] [address] Anion gap [Moles/Vol] 17 mmol/L Normal 10-20 [facility] Comment on above: Performed By: #### 2 4323-8 #### JACQUI STYLES L ([id number]) [facility] ([facility]) [id number] [place] [address] Calcium [Mass/Vol] 8.6 mg/dL Normal 8.6-10.6 [facility] Comment on above: Performed By: #### 2 4323-8 #### JACQUI STYLES L ([id number]) [facility] ([facility]) [address] [place] [address] Chloride [Moles/Vol] 84 mmol/L Low 98-107 [facility] Comment on above: Performed By: #### 2 4323-8 #### JACQUI DOWNEYMOTZER L ([id number]) [facility] ([facility]) [address] [place] [address] CO2 [Moles/Vol] 29 mmol/L Normal 21-32 [facility] Comment on above: Performed By: #### 2 4323-8 #### JACQUI DOWNEYMOTZER L ([id number]) [facility] ([facility]) [id number] [place] [address]282 Creatinine [Mass/Vol] 0.94 mg/dL Normal 0.50-1.05 [facility] Comment on above: Performed By: #### 2 4323-8 #### JACQUI Hayes ([id number]) [facility] ([facility]) [address] [place] [address] GFR/1.73 sq M.predicted MDRD (S/P/Bld) [Vol rate/Area] 60 mL/min/1.73m*2 Low >60 [facility] Comment on above: Result Comment: Calc ulations of estimated GFR are performed using the 2020 CKD-EPI Study Refit equation without the race variable for the IDMS-Traceable creatinine methods. https://jasn.asnjournals.org/content/early/ASN.53189 00732 Performed By: #### 2 4323-8 #### JACQUI Hayes ([id number]) [facility] ([facility]) [id number] [place] [address]64 Glucose [Mass/Vol] 154 mg/dL High 74-99 [facility] Comment on above: Performed By: #### 2 4323-8 #### JACQUI Hayes ([id number]) [facility] ([facility]) [id number] [place] [address]29 Phosphate [Mass/Vol] 5.0 mg/dL High 2.5-4.9 [facility] Comment on above: Result Comment: The performance characteristics of phosphorus testing in heparinized plasma have been validated by the individual laboratory site where testing is performed. Testing on heparinized plasma is not approved by the FDA; however, such approval is not necessary. Performed By: #### 2 4323-8 #### JACQUI Hayes ([id number]) [facility] ([facility]) [address] [place] [address] Potassium [Moles/Vol] 3.8 mmol/L Normal 3.5-5.3 [facility] Comment on above: Performed By: #### 2 4323-8 #### JACQUI Hayes ([id number]) [facility] ([facility]) [address] [place] [address] Sodium [Moles/Vol] 126 mmol/L Low 136-145 [facility] Comment on above: Performed By: #### 2 4323-8 #### JACQUI Hayes ([id number]) [facility] ([facility]) [address] [place] [address] Urea nitrogen [Mass/Vol] 16 mg/dL Normal 6-23 [facility] Comment on above: Performed By: #### 2 432-8 #### JACQUI Hayes ([id number]) [facility] ([facility]) [address] [place] [address] 76232 CBC panel Auto (Bld)on 06-14 Erythrocyte distribution width (RBC) [Ratio] 13.5 % Normal 11.5-14.5 [facility] Comment on above: Performed By: #### 2 432-8 #### JACQUI Hayes ([id number]) [facility] ([facility]) [address] [place] [address] 13229 Hematocrit (Bld) [Volume fraction] 22.3 % Low 36.0-46.0 [facility] Comment on above: Performed By: #### 2 432-8 #### JACQUI Hayes ([id number]) [facility] ([facility]) [address] [place] [address] 96724 Hemoglobin (Bld) [Mass/Vol] 7.1 g/dL Low 12.0-16.0 [facility] Comment on above: Performed By: #### 2 4323-8 #### JACQUI Hayes ([id number]) [facility] ([facility]) [address] [place] [address] 34669 MCH (RBC) [Entitic mass] 27.1 pg Normal 26.0-34.0 [facility] Comment on above: Performed By: #### 2 432-8 #### JACQUI Hayes ([id number]) [facility] ([facility]) [address] [place] [address] 82271 MCHC (RBC) [Mass/Vol] 31.8 g/dL Low 32.0-36.0 [facility] Comment on above: Performed By: #### 2 432-8 #### JACQUI Hayes ([id number]) [facility] ([facility]) [address] [place] [address] MCV (RBC) [Entitic vol] 85 fL Normal 80-100 [facility] Comment on above: Performed By: #### 2 4323-8 #### JACQUI Hayes ([id number]) [facility] ([facility]) [id number] [place] [address] 77698 Nucleated RBC/100 WBC (Bld) [Ratio] 0.0 /100 WBCs Normal 0.0-0.0 [facility] Comment on above: Performed By: #### 2 4323-8 #### JACQUI Hayes ([id number]) [facility] ([facility]) [address] [place] [address] 18205 Platelet mean volume (Bld) [Entitic vol] 8.3 fL Normal 7.5-11.5 [facility] Comment on above: Performed By: #### 2 4323-8 #### JACQUI Hayes ([id number]) [facility] ([facility]) [id number] [place] [address] 54032 Platelets (Bld) [#/Vol] 655 x10*3/uL High 150-450 [facility] Comment on above: Performed By: #### 2 4323-8 #### JACQUI Hayes ([id number]) [facility] ([facility]) [id number] [place] [address] 46535 RBC (Bld) [#/Vol] 2.62 x10*6/uL Low 4.00-5.20 [facility] Comment on above: Performed By: #### 2 4323-8 #### JACQUI Hayes ([id number]) [facility] ([facility]) [id number] [place] [address] 93284 WBC (Bld) [#/Vol] 20.4 x10*3/uL High 4.4-11.3 [facility] Comment on above: Performed By: #### 2 4323-8 #### JACQUI Hayes ([id number]) [facility] ([facility]) [id number] [place] [address] 31096 Erythrocyte distribution width (RBC) [Ratio] 13.6 % Normal 11.5-14.5 [facility] Comment on above: Performed By: #### 1 9123-9 #### JACQUI Hayes ([id number]) [facility] ([facility]) [id number] [place] [address] 62872 Hematocrit (Bld) [Volume fraction] 24.0 % Low 36.0-46.0 [facility] Comment on above: Performed By: #### 1 9123-9 #### JACQUI Hayes ([id number]) [facility] ([facility]) [address] [place] [address] 79851 Hemoglobin (Bld) [Mass/Vol] 7.7 g/dL Low 12.0-16.0 [facility] Comment on above: Performed By: #### 1 9123-9 #### JACQUI Hayes ([id number]) [facility] ([facility]) [address] [place] [address] 25567 MCH (RBC) [Entitic mass] 26.6 pg Normal 26.0-34.0 [facility] Comment on above: Performed By: #### 1 9123-9 #### JACQUI Hayes ([id number]) [facility] ([facility]) [address] [place] [address] 60240 MCHC (RBC) [Mass/Vol] 32.1 g/dL Normal 32.0-36.0 [facility] Comment on above: Performed By: #### 1 9123-9 #### JACQUI Hayes ([id number]) [facility] ([facility]) [address] [place] [address] 46552 MCV (RBC) [Entitic vol] 83 fL Normal 80-100 [facility] Comment on above: Performed By: #### 1 9123-9 #### JACQUI Hayes ([id number]) [facility] ([facility]) [address] [place] [address] 95143 Nucleated RBC/100 WBC (Bld) [Ratio] 0.0 /100 WBCs Normal 0.0-0.0 [facility] Comment on above: Performed By: #### 1 9123-9 #### JACQUI Hayes ([id number]) [facility] ([facility]) [id number] [place] [address] 61239 Platelet mean volume (Bld) [Entitic vol] 8.3 fL Normal 7.5-11.5 [facility] Comment on above: Performed By: #### 1 9123-9 #### JACQUI Hayes ([id number]) [facility] ([facility]) [address] [place] [address] 71219 Platelets (Bld) [#/Vol] 658 x10*3/uL High 150-450 [facility] Comment on above: Performed By: #### 1 9123-9 #### JACQUI Hayes ([id number]) [facility] ([facility]) [address] [place] [address] 01166 RBC (Bld) [#/Vol] 2.89 x10*6/uL Low 4.00-5.20 [facility] Comment on above: Performed By: #### 1 9123-9 #### JACQUI Hayes ([id number]) [facility] ([facility]) [address] [place] [address] 47455 WBC (Bld) [#/Vol] 18.1 x10*3/uL High 4.4-11.3 [facility] Comment on above: Performed By: #### 1 9123-9 #### JACQUI Hayes ([id number]) [facility] ([facility]) [address] [place] [address] ABDOMEN PELVIS W IV CONTR Shantell 06-14-2023 CT ABDOMEN PELVIS W IV CONTRAST Interpreted By: Leigha Mera and Ebai Jerky STUDY: CT ABDOMEN PELVIS W IV CONTRAST; 06/14/2023 2:01 pm INDICATION: Signs/Symptoms:increased abdominal pain iso of abdominal hematoma , concern for bleed. COMPARISON: CT abdomen pelvis 06/11/2028. ACCESSION NUMBER(S): [id number] ORDERING CLINICIAN: EMILY BILL TECHNIQUE: CT of the abdomen and pelvis was performed. Standard contiguous axial images were obtained at 3 mm slice thickness through the abdomen and pelvis. Coronal and sagittal reconstructions at 3 mm slice thickness were performed. 90 ml of contrast Omnipaque 350 were administered intravenously without immediate complication. FINDINGS: LOWER CHEST: Interval decrease in bilateral pleural effusions, now trace right and small left with adjacent compressive atelectasis. Mild cardiomegaly with stable pericardial effusion. Partially visualized [id number] coronary artery calcifications. Stable small hiatal hernia otherwise, the visualized distal esophagus is unremarkable. ABDOMEN: LIVER: Liver is normal in size and enhancement. Diffuse decrease in liver parenchyma attenuation suggestive hepatic steatosis. Stable 1.7 cm well-marginated low-density lesion in liver segment 3, compatible with a simple cyst. BILE DUCTS: The intrahepatic and extrahepatic ducts are not dilated. GALLBLADDER: The gallbladder is nondistended and without evidence of radiopaque stones. PANCREAS: The pancreas appears unremarkable without evidence of ductal dilatation or masses. SPLEEN: The spleen is normal in size. Calcified splenic granulomas. ADRENAL GLANDS: Bilateral adrenal glands appear normal. KIDNEYS AND URETERS: The kidneys are normal in size. Stable bilateral renal simple cysts measuring up to 6.0 cm in the left and 4.3 cm on the right. Additionally, there are few too small to completely characterize bilateral renal hypodensities, favored to represent cysts. No hydronephrosis or nephrolithiasis. PELVIS: BLADDER: Bladder is unremarkable for degree of distention. REPRODUCTIVE ORGANS: The uterus is surgically absent. BOWEL: Stable gastric diverticulum arising from the fundus containing fluid and high density material, likely representing oral ingested contents. Stable hiatal hernia. No inflammatory bowel wall thickening or dilatation hyperdense contrast material from same day modified barium swallow study is seen within multiple loops of small bowel with associated artifact. Increased liquid stool within the ascending and proximal transverse colon. The appendix appears normal. VESSELS: Mild atherosclerosis calcification of the aorta and its branching vessels. There is no aneurysmal dilatation of the abdominal aorta. The IVC appears normal PERITONEUM/RETROPERITONEU M/LYMPH NODES: New high-density curvilinear fluid collection posterior to the below mentioned hematoma and along the anterior aspect of the bladder wall measuring 6.3 x 4.8 x 1.3 cm. No loculated fluid collections or free air. No abdominopelvic lymphadenopathy is present. BONES AND ABDOMINAL WALL: Mild body wall anasarca. Enlarging 24.7 x 7.9 x 5.9 cm hyperdense fluid collection within the left rectus abdominus muscle with layering hematocrit level indicating coagulopathy as well as multifocal linear areas of contrast density suggestive of active extravasation as seen on (series 4, image 66, and 75). Multifocal degenerative changes of the cervical spine with posterior disc osteophytic complex, ligamentum flavum hypertrophy and facet osteoarthrosis resulting in at least moderate L2-L3 central canal stenosis. Surgical changes from prior L5 laminectomy. IMPRESSION: 1. Interval increase in size of a [...] trace right and mild left pleural effusions. 5. Additional stable findings as described above. The critical information above was relayed directly by Resident Demetra Lanza epic secure chat to Emily Bill NP on 06/14/2023 at 2:32 p.m.. I personally reviewed the images/study and I agree with the findings as stated. This study was interpreted at [place], [place]. Signed by: Leigha Mera 06/15/2023 7:01 PM Dictation workstation: [id number] [facility] MODIFIED BARIUM SWALLOW Ofelia Castorena 06-14-2023 [place] MODIFIED BARIUM SWALLOW STUDY Interpreted By: Hemanth Rosales and Greenfield Ellen STUDY: [place] MODIFIED BARIUM SWALLOW STUDY;; 06/14/2023 8:31 am INDICATION: Signs/Symptoms:dysphagia. COMPARISON: Chest radiograph dated 06/12/2023. ACCESSION NUMBER(S): [id number] ORDERING CLINICIAN: EMILY BILL TECHNIQUE: MBSS completed. Informed verbal consent obtained prior to completion of exam. Trials of thin, nectar thick, puree, and regular solids given. Fluoroscopy time : 1.3 minutes. VEHICLE MECHANIC: Dodie Messer MS,CCC-VEHICLE MECHANIC Phone/Pager: [phone]/secure chat SPEECH FINDINGS: Reason for referral: To evaluate swallow function prior to PO recommendations. Patient hx: Modesta Cook is a 82 y.o. female with PMHx of persistent A-fib not on anticoagulation, ANNABELLE, HTN, DLD, low back pain, chronic thrombocytopenia since April 2023, who presented with SOB and fatigue in the setting of recent onset Afib and pericardial effusion. The patient was transferred from [facility] for pericardial effusion and concern for Cardiac tamponade. The patient reported recent admission on the 05/26 where she was diagnosed with pneumonia and had chronic cough and diarrhea, she was treated with fluoroquinolones for 4 days, and was diagnosed with A-fib, and was treated with amlodipine 10 daily and diltiazem 120 daily. Since that admission she has been having worsening cough productive, with increased dyspnea, and fatigue. Respiratory status: WFL Previous diet: NPO FINAL SPEECH RECOMMENDATIONS Diet recommendations/feeding strategies: Solid Consistency: Soft & bite sized/chopped (IDDSI Level 6) Liquid Consistency: Thin (IDDSI Level 0) Liquid Administration Via: Cup, Spoon Medication Administration: Take one pill at a time Supervision: Distant Compensatory Strategy Recommendations: Alternating liquids and solids, Double/multiple swallows Postural Changes and/or Swallow Maneuvers: Remain upright for 30 minutes after meal, Upright 90 degrees for all PO intake Follow-up speech therapy recommended: Yes. Short term goals: Pt. will tolerate least restrictive diet without overt s/s of aspiration with 100% accuracy. Pt will utilize safe swallow strategies independently during meals/snacks. Education provided: Yes. Additional consult suggested: Consider GI consult to evaluate esophageal dysfunction Repeat study/ dc plan: Repeat MBSS if pts' swallow declines. VEHICLE MECHANIC impressions with severity rating: MBSS completed once verbal consent provided. Oral phase swallow within functional limited. Adequate mastication of solids. Functional manipulation of each texture posteriorly with adequate oral containment. Mild pharyngeal dysphagia marked by decrease base of tongue retraction resulted in post swallow residue within the valleculae. Residue increased with heavier viscosities. Spontaneous repeat swallow and alternating liquids and solids assisted in clearing majority of valleculae residue. Trace transient penetration of thin liquids intermittently, no aspiration evident during this study. Upon scanning down the esophagus retention of bolus within thoracic esophagus evident. Pt would benefit from GI to further evaluate esophageal dysfunction. Thin Liquids (MBSS) Asia's Penetration Aspiration Scale, Thin Liquids (MBSS): 2. PENETRATION that CLEARS - contrast enter airway, above vocal cords, no residue Elma Thick Liquids (MBSS) Rosenbek's Penetration Aspiration Scale, Elma thick liquids (MBSS): 1. NO ASPIRATION & NO PENETRATION - no aspiration, contrast does not enter airway Purees (MBSS) Rosenbek's Penetration Aspiration Scale, Purees (MBSS): 1. NO ASPIRATION & NO PENETRATION - no aspiration, contrast does not enter airway Solids (MBSS) Rosenbek's Penetration Aspiration Scale, Solids (MBSS): 1. NO ASPIRATION & NO PENETRATION - no aspiration, contrast does not enter airway Speech Therapy section of this report signed by Dodie Mesesr MS,CCC-VEHICLE MECHANIC on 06/14/2023 at 9:08 am. RADIOLOGY FINDINGS: Multilevel degenerative changes of the visualized spine with grade 1 anterolisthesis of C4-C5 and anterior osteophytes at C4-5 and C5-C6 that appear to cause minimal posterior impingement on the esophagus. Esophageal sweep images are nondiagnostic. Radiology section of this report signed by Dr. Hemanth Rosales. IMPRESSION: Swallow study as dictated by VEHICLE MECHANIC above. 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 Esophageal sweep images are nondiagnostic; dedicated esophagram may better evaluate if clinically indicated. I personally reviewed the images/study and I agree with the findings as stated by Dr. Kalen Buck. This study was interpreted at [facility], [place], [place]. S (more content not included)... Normal [facility] Heparin.unfractionatedon Heparin unfractionated Chromogenic method Qn (PPP) 0.7 IU/mL Normal See Comment Below for Therapeutic Ranges [facility] Comment on above: Order Comment: Obtai n 4 hours after any Heparin dosage change. Nursing to release order.The therapeutic reference range for UFH may be either 0.3-0.6 IU/mL or 0.3-0.7 IU/mL based on the clinical setting for anticoagulant therapy and the associated nomogram used. For Heparin dosing guidelines based on clinical scenario and Heparin Assay results, please refer to local Pharmacy and the [facility] Guidelines for Anticoagulation Therapy available on the [facility] intranet at: [email or web address] Performed By: #### 1 9123-9 #### JACQUI Hayes ([id number]) [facility] ([facility]) [id number] [place] [address] 98329 Magnesiumon 06-14-2023 Magnesium [Mass/Vol] 2.17 mg/dL Normal 1.60-2.40 [facility] Comment on above: Performed By: #### 1 9123-9 #### JACQUI Hayes ([id number]) [facility] ([facility]) [id number] [place] [address] 80853 Renal function 2000 panelon 06-14-2023 Albumin BCP dye [Mass/Vol] 2.7 g/dL Low 3.4-5.0 [facility] Comment on above: Performed By: #### 1 9123-9 #### JACQUI Hayes ([id number]) [facility] ([facility]) [id number] [place] [address] 56599 Anion gap [Moles/Vol] 14 mmol/L Normal 10-20 [facility] Comment on above: Performed By: #### 1 9123-9 #### JACQUI Hayes ([id number]) [facility] ([facility]) [id number] [place] [address] 79291 Calcium [Mass/Vol] 7.8 mg/dL Low 8.6-10.6 [facility] Comment on above: Performed By: #### 1 9123-9 #### JACQUI Hayes ([id number]) [facility] ([facility]) [id number] [place] [address] 32023 Chloride [Moles/Vol] 87 mmol/L Low 98-107 [facility] Comment on above: Performed By: #### 1 9123-9 #### JACQUI Hayes ([id number]) [facility] ([facility]) [address] [place] [address] CO2 [Moles/Vol] 30 mmol/L Normal 21-32 [facility] Comment on above: Performed By: #### 1 9123-9 #### JACQUI Hayes ([id number]) [facility] ([facility]) [address] [place] [address] Creatinine [Mass/Vol] 0.46 mg/dL Low 0.50-1.05 [facility] Comment on above: Performed By: #### 1 9123-9 #### JACQUI Hayes ([id number]) [facility] ([facility]) [address] [place] [address] GFR/1.73 sq M.predicted MDRD (S/P/Bld) [Vol rate/Area] mL/min/{1.73_m2} Normal >60 [facility] Comment on above: Result Comment: Calc ulations of estimated GFR are performed using the 2020 CKD-EPI Study Refit equation without the race variable for the IDMS-Traceable creatinine methods. https://jasn.asnjournals.org/content/early//ASN.51151 91921 Performed By: #### 1 9123-9 #### JACQUI Hayes ([id number]) [facility] ([facility]) [address] [place] [address] Glucose [Mass/Vol] 114 mg/dL High 74-99 [facility] Comment on above: Performed By: #### 1 9123-9 #### JACQUI Hayes ([id number]) [facility] ([facility]) [address] [place] [address] Phosphate [Mass/Vol] 3.1 mg/dL Normal 2.5-4.9 [facility] Comment on above: Result Comment: The performance characteristics of phosphorus testing in heparinized plasma have been validated by the individual laboratory site where testing is performed. Testing on heparinized plasma is not approved by the FDA; however, such approval is not necessary. Performed By: #### 1 9123-9 #### JACQUI Hayes ([id number]) [facility] ([facility]) [address] [place] [address] 89791 Potassium [Moles/Vol] 3.6 mmol/L Normal 3.5-5.3 [facility] Comment on above: Performed By: #### 1 9123-9 #### JACQUI Hayes ([id number]) [facility] ([facility]) [address] [place] [address] 21273 Sodium [Moles/Vol] 127 mmol/L Low 136-145 [facility] Comment on above: Performed By: #### 1 9123-9 #### JACQUI Hayes ([id number]) [facility] ([facility]) [address] [place] [address] 20331 Urea nitrogen [Mass/Vol] 8 mg/dL Normal - [facility] Comment on above: Performed By: #### 1 9123-9 #### JACQUI Hayes ([id number]) [facility] ([facility]) [address] [place] [address] 26249 ANTIBODY IDENTIFICATIONon Blood group antibody investigation (P/RBC) [Interp] ANTI-K [facility] Comment on above: Performed By: #### 1 9123-9 #### JACQUI Hayes ([id number]) [facility] ([facility]) [address] [place] [address] 58020 CASE # [id number] [facility] Comment on above: Performed By: #### 1 9123-9 #### JACQUI Hayes ([id number]) [facility] ([facility]) [address] [place] [address] 24723 Blood type and Indirect anti body screen panel (Bld)on 06-13-2023 ABO group Nom (Bld) B [facility] Comment on above: Performed By: #### 1 9123-9 #### JACQUI Hayes ([id number]) [facility] ([facility]) [address] [place] [address] 73907 Blood group antibody screen Ql Positive Normal [facility] Comment on above: Performed By: #### 1 9123-9 #### JACQUI Hayes ([id number]) [facility] ([facility]) [address] [place] [address] 35858 D Ag Ql (Bld) Positive Normal [facility] Comment on above: Result Comment: 2nd ABO test required. Order and Collect VERAB Performed By: #### 1 9123-9 #### JACQUI Hyaes ([id number]) [facility] ([facility]) [address] [place] [address] 59133 CBC W Auto Differential pane l (Bld)on 06-13-2023 Basophils (Bld) [#/Vol] 0.07 x10*3/uL Normal 0.00-0.10 [facility] Comment on above: Performed By: #### 3 0934-4 #### JACQUI Hayes ([id number]) [facility] ([facility]) [address] [place] [address] 13590 Basophils/100 WBC (Bld) 0.4 % Normal 0.0-2.0 [facility] Comment on above: Performed By: #### 3 0934-4 #### JACQUI Hayes ([id number]) [facility] ([facility]) [address] [place] [address] 92144 Eosinophils (Bld) [#/Vol] 0.30 x10*3/uL Normal 0.00-0.40 [facility] Comment on above: Performed By: #### 3 0934-4 #### JACQUI Hayes ([id number]) [facility] ([facility]) [address] [place] [address] 62200 Eosinophils/100 WBC (Bld) 1.5 % Normal 0.0-6.0 [facility] Comment on above: Performed By: #### 3 0934-4 #### JACQUI Hayes ([id number]) [facility] ([facility]) [address] [place] [address] 58857 Erythrocyte distribution width (RBC) [Ratio] 13.4 % Normal 11.5-14.5 [facility] Comment on above: Performed By: #### 3 0934-4 #### JACQUI Hayes ([id number]) [facility] ([facility]) [address] [place] [address] 33143 Hematocrit (Bld) [Volume fraction] 23.1 % Low 36.0-46.0 [facility] Comment on above: Performed By: #### 3 0934-4 #### JACQUI STYLES L ([id number]) [facility] ([facility]) [address] [place] [address] 38501 Hemoglobin (Bld) [Mass/Vol] 7.5 g/dL Low 12.0-16.0 [facility] Comment on above: Performed By: #### 3 0934-4 #### JACQUI Hayes ([id number]) [facility] ([facility]) [address] [place] [address] 93357 Immature granulocytes (Bld) [#/Vol] 0.21 x10*3/uL Normal 0.00-0.50 [facility] Comment on above: Performed By: #### 3 0934-4 #### JACQUI Hayes ([id number]) [facility] ([facility]) [address] [place] [address] 10359 Immature granulocytes/100 WBC (Bld) 1.1 % High 0.0-0.9 [facility] Comment on above: Result Comment: Lizzie ture Granulocyte Count (IG) includes promyelocytes, myelocytes and metamyelocytes but does not include bands. Percent differential counts (%) should be interpreted in the context of the absolute cell counts (cells/UL). Performed By: #### 3 0934-4 #### JACQUI STYLES L ([id number]) [facility] ([facility]) [address] [place] [address] 22489 Lymphocytes (Bld) [#/Vol] 2.57 x10*3/uL Normal 0.80-3.00 [facility] Comment on above: Performed By: #### 3 0934-4 #### JACQUI Hayes ([id number]) [facility] ([facility]) [id number] [place] [address] 72049 Lymphocytes/100 WBC (Bld) 13.1 % Normal 13.0-44.0 [facility] Comment on above: Performed By: #### 3 0934-4 #### JACQUI Hayes ([id number]) [facility] ([facility]) [id number] [place] [address] 90174 MCH (RBC) [Entitic mass] 26.9 pg Normal 26.0-34.0 [facility] Comment on above: Performed By: #### 3 0934-4 #### JACQUI Hayes ([id number]) [facility] ([facility]) [address] [place] [address] 68122 MCHC (RBC) [Mass/Vol] 32.5 g/dL Normal 32.0-36.0 [facility] Comment on above: Performed By: #### 3 0934-4 #### JACQUI Hayes ([id number]) [facility] ([facility]) [address] [place] [address] 71438 MCV (RBC) [Entitic vol] 83 fL Normal 80-100 [facility] Comment on above: Performed By: #### 3 0934-4 #### JACQUI Hayes ([id number]) [facility] ([facility]) [address] [place] [address] 93923 Monocytes (Bld) [#/Vol] 1.64 x10*3/uL High 0.05-0.80 [facility] Comment on above: Performed By: #### 3 0934-4 #### JACQUI Hayes ([id number]) [facility] ([facility]) [id number] [place] [address] 35294 Monocytes/100 WBC (Bld) 8.4 % Normal 2.0-10.0 [facility] Comment on above: Performed By: #### 3 0934-4 #### JACQUI Hayes ([id number]) [facility] ([facility]) [id number] [place] [address] 99119 Neutrophils (Bld) [#/Vol] 14.76 x10*3/uL High 1.60-5.50 [facility] Comment on above: Result Comment: Perc ent differential counts (%) should be interpreted in the context of the absolute cell counts (cells/uL). Performed By: #### 3 0934-4 #### JACQUI Hayes ([id number]) [facility] ([facility]) [address] [place] [address] Neutrophils/100 WBC (Bld) 75.5 % Normal 40.0-80.0 [facility] Comment on above: Performed By: #### 3 0934-4 #### JACQUI Hayes ([id number]) [facility] ([facility]) [address] [place] [address] 83482 Nucleated RBC/100 WBC (Bld) [Ratio] 0.0 /100 WBCs Normal 0.0-0.0 [facility] Comment on above: Performed By: #### 3 0934-4 #### JACQUI Hayes ([id number]) [facility] ([facility]) [id number] [place] [address] 67417 Platelet mean volume (Bld) [Entitic vol] 8.8 fL Normal 7.5-11.5 [facility] Comment on above: Performed By: #### 3 0934-4 #### JACQUI Hayes ([id number]) [facility] ([facility]) [id number] [place] [address] 21841 Platelets (Bld) [#/Vol] 604 x10*3/uL High 150-450 [facility] Comment on above: Performed By: #### 3 0934-4 #### JACQUI Hayes ([id number]) [facility] ([facility]) [address] [place] [address] 19617 RBC (Bld) [#/Vol] 2.79 x10*6/uL Low 4.00-5.20 [facility] Comment on above: Performed By: #### 3 0934-4 #### JACQUI Hayes ([id number]) [facility] ([facility]) [id number] [place] [address] 03641 WBC (Bld) [#/Vol] 19.6 x10*3/uL High 4.4-11.3 [facility] Comment on above: Performed By: #### 3 0934-4 #### JACQUI Hayes ([id number]) [facility] ([facility]) [address] [place] [address] Heparin.unfractionatedon Heparin unfractionated Chromogenic method Qn (PPP) 0.4 IU/mL Normal See Comment Below for Therapeutic Ranges [facility] Comment on above: Order Comment: Obtai n 4 hours after any Heparin dosage change. Nursing to release order.The therapeutic reference range for UFH may be either 0.3-0.6 IU/mL or 0.3-0.7 IU/mL based on the clinical setting for anticoagulant therapy and the associated nomogram used. For Heparin dosing guidelines based on clinical scenario and Heparin Assay results, please refer to local Pharmacy and the [facility] Guidelines for Anticoagulation Therapy available on the [facility] intranet at: [email or web address] Performed By: #### 1 9123-9 #### JACQUI Hayes ([id number]) [facility] ([facility]) [address] [place] [address] Magnesiumon 06-13-2023 Magnesium [Mass/Vol] 1.88 mg/dL Normal 1.60-2.40 [facility] Comment on above: Performed By: #### 1 9123-9 #### JACQUI Hayes ([id number]) [facility] ([facility]) [address] [place], [place] [id number] PATH REVIEW-IMMUNOHEMATOLOGY on 06-13-2023 PATH [id number] SEE COMMENT Normal [facility] Comment on above: Result Comment: ANTI BODY DETECTION SCREEN IS POSITIVE. ANTIBODY IDENTIFICATION PANEL WAS PERFORMED. THE AUTOCONTROL IS NEGATIVE. ANTI-K (KEL1) IS IDENTIFIED. THE PATIENT'S RBC PHENOTYPE IS K (KEL1)-ANTIGEN NEGATIVE. THESE FINDINGS ARE CONSISTENT WITH A NEWLY-IDENTIFIED ALLOANTIBODY ANTI-K (KEL1). ALL OTHER COMMON CLINICALLY SIGNIFICANT ALLOANTIBODIES HAVE BEEN RULED OUT. FULL CROSSMATCHED K (KEL1)-ANTIGEN NEGATIVE DONOR RBC UNITS SHOULD BE SELECTED FOR TRANSFUSION FOR THIS PATIENT. . By the signature on this report, the individual or group listed as making the Final Interpretation/Diagnosis certifies that they have reviewed this case. Performed By: #### 2 4323-8 #### JACQUI Hayes ([id number]) [facility] ([facility]) [address] [place] [address] 15612 Renal function 2000 panelon 06-13-2023 Albumin BCP dye [Mass/Vol] 2.6 g/dL Low 3.4-5.0 [facility] Comment on above: Performed By: #### 1 9123-9 #### JACQUI STYLES L ([id number]) [facility] ([facility]) [address] [place] [address] 95509 Anion gap [Moles/Vol] 15 mmol/L Normal 10-20 [facility] Comment on above: Performed By: #### 1 9123-9 #### JACQUI STYLES L ([id number]) [facility] ([facility]) [address] [place] [address] 51394 Calcium [Mass/Vol] 7.6 mg/dL Low 8.6-10.6 [facility] Comment on above: Performed By: #### 1 9123-9 #### JACQUI STYLES L ([id number]) [facility] ([facility]) [id number] [place] [address] 42847 Chloride [Moles/Vol] 82 mmol/L Low 98-107 [facility] Comment on above: Performed By: #### 1 9123-9 #### JACQUI STYLES L ([id number]) [facility] ([facility]) [id number] [place] [address] 69901 CO2 [Moles/Vol] 28 mmol/L Normal 21-32 [facility] Comment on above: Performed By: #### 1 9123-9 #### JACQUI Hayes ([id number]) [facility] ([facility]) [address] [place] [address] Creatinine [Mass/Vol] 0.47 mg/dL Low 0.50-1.05 [facility] Comment on above: Performed By: #### 1 9123-9 #### JACQUI Hayes ([id number]) [facility] ([facility]) [id number] [place] [address] 42429 GFR/1.73 sq M.predicted MDRD (S/P/Bld) [Vol rate/Area] mL/min/{1.73_m2} Normal >60 [facility] Comment on above: Result Comment: Calc ulations of estimated GFR are performed using the 2020 CKD-EPI Study Refit equation without the race variable for the IDMS-Traceable creatinine methods. https://jasn.asnjournals.org/content//ASN.28907 96363 Performed By: #### 1 9123-9 #### JACQUI Hayes ([id number]) [facility] ([facility]) [id number] [place] [address] 02504 Glucose [Mass/Vol] 202 mg/dL High 74-99 [facility] Comment on above: Performed By: #### 1 9123-9 #### JACQUI Hayes ([id number]) [facility] ([facility]) [id number] [place] [address] 53885 Phosphate [Mass/Vol] 3.9 mg/dL Normal 2.5-4.9 [facility] Comment on above: Result Comment: MILD HEMOLYSIS DETECTED. The result may be falsely elevated due to hemolysis or other interferents. Clinical correlation is recommended. Repeat testing may be considered. The performance characteristics of phosphorus testing in heparinized plasma have been validated by the individual laboratory site where testing is performed. Testing on heparinized plasma is not approved by the FDA; however, such approval is not necessary. Performed By: #### 1 9123-9 #### JACQUI Hayes ([id number]) [facility] ([facility]) [address] [place] [address] Potassium [Moles/Vol] 3.6 mmol/L Normal 3.5-5.3 [facility] Comment on above: Result Comment: MILD HEMOLYSIS DETECTED. The result may be falsely elevated due to hemolysis or other interferents. Clinical correlation is recommended. Repeat testing may be considered. Performed By: #### 1 9123-9 #### JACQUI Hayes ([id number]) [facility] ([facility]) [address] [place] [address] 40895 Sodium [Moles/Vol] 121 mmol/L Low 136-145 [facility] Comment on above: Performed By: #### 1 9123-9 #### JACQUI Hayes ([id number]) [facility] ([facility]) [address] [place] [address] 52137 Urea nitrogen [Mass/Vol] 7 mg/dL Normal 6-23 [facility] Comment on above: Performed By: #### 1 9123-9 #### JACQUI Hayes ([id number]) [facility] ([facility]) [address] [place] [address] 38121 CBC W Auto Differential pane l (Bld)on 06-12-2023 Basophils (Bld) [#/Vol] 0.05 x10*3/uL Normal 0.00-0.10 [facility] Comment on above: Performed By: #### 3 0934-4 #### JACQUI Hayes ([id number]) [facility] ([facility]) [address] [place] [address] 70758 Basophils/100 WBC (Bld) 0.3 % Normal 0.0-2.0 [facility] Comment on above: Performed By: #### 3 0934-4 #### JACQUI Hayes ([id number]) [facility] ([facility]) [address] [place] [address] 88680 Eosinophils (Bld) [#/Vol] 0.43 x10*3/uL High 0.00-0.40 [facility] Comment on above: Performed By: #### 3 0934-4 #### JACQUI GAER L ([id number]) [facility] ([facility]) [address] [place] [address] Eosinophils/100 WBC (Bld) 2.5 % Normal 0.0-6.0 [facility] Comment on above: Performed By: #### 3 0934-4 #### JACQUI DOWNEYMOTZER L ([id number]) [facility] ([facility]) [address] [place] [address] Immature granulocytes (Bld) [#/Vol] 0.24 x10*3/uL Normal 0.00-0.50 [facility] Comment on above: Performed By: #### 3 0934-4 #### JACQUI FALLONTZER L ([id number]) [facility] ([facility]) [id number] [place] [address] 92726 Immature granulocytes/100 WBC (Bld) 1.4 % High 0.0-0.9 [facility] Comment on above: Result Comment: Lizzie ture Granulocyte Count (IG) includes promyelocytes, myelocytes and metamyelocytes but does not include bands. Percent differential counts (%) should be interpreted in the context of the absolute cell counts (cells/UL). Performed By: #### 3 0934-4 #### JACQUI STYLES L ([id number]) [facility] ([facility]) [id number] [place] [address] 57347 Lymphocytes (Bld) [#/Vol] 2.52 x10*3/uL Normal 0.80-3.00 [facility] Comment on above: Performed By: #### 3 0934-4 #### JACQUI FALLONTZER L ([id number]) [facility] ([facility]) [address] [place] [address] Lymphocytes/100 WBC (Bld) 14.5 % Normal 13.0-44.0 [facility] Comment on above: Performed By: #### 3 0934-4 #### JACQUI DOWNEYMOTZER L ([id number]) [facility] ([facility]) [address] [place] [address] Monocytes (Bld) [#/Vol] 1.57 x10*3/uL High 0.05-0.80 [facility] Comment on above: Performed By: #### 3 0934-4 #### JACQUI Hayes ([id number]) [facility] ([facility]) [id number] [place] [address] 87952 Monocytes/100 WBC (Bld) 9.0 % Normal 2.0-10.0 [facility] Comment on above: Performed By: #### 3 0934-4 #### JACQUI Hayes ([id number]) [facility] ([facility]) [id number] [place] [address] [id number] Neutrophils (Bld) [#/Vol] 12.60 x10*3/uL High 1.60-5.50 [facility] Comment on above: Result Comment: Perc ent differential counts (%) should be interpreted in the context of the absolute cell counts (cells/uL). Performed By: #### 3 0934-4 #### JACQUI Hayes ([id number]) [facility] ([facility]) [address] [place] [address] [id number] Neutrophils/100 WBC (Bld) 72.3 % Normal 40.0-80.0 [facility] Comment on above: Performed By: #### 3 0934-4 #### JACQUI Hayes ([id number]) [facility] ([facility]) [address] [place] [id number] Complete blood count panelon 06-12-2023 Erythrocyte distribution width (RBC) [Ratio] 13.2 % Normal 11.5-14.5 [facility] Comment on above: Performed By: #### 3 0934-4 #### JACQUI Hayes ([id number]) [facility] ([facility]) [address] [place] [address] 71279 Hematocrit (Bld) [Volume fraction] 23.5 % Low 36.0-46.0 [facility] Comment on above: Performed By: #### 3 0934-4 #### JACQUI Hayes ([id number]) [facility] ([facility]) [address] [place] [address], [place] [address] Hemoglobin (Bld) [Mass/Vol] 8.0 g/dL Low 12.0-16.0 [facility] Comment on above: Performed By: #### 3 0934-4 #### JACQUI Hayes ([id number]) [facility] ([facility]) [id number] [place] [address] 32853 MCH (RBC) [Entitic mass] 26.6 pg Normal 26.0-34.0 [facility] Comment on above: Performed By: #### 3 0934-4 #### JACQUI Hayes ([id number]) [facility] ([facility]) [id number] [place] [address] 59790 MCHC (RBC) [Mass/Vol] 34.0 g/dL Normal 32.0-36.0 [facility] Comment on above: Performed By: #### 3 0934-4 #### JACQUI Hayes ([id number]) [facility] ([facility]) [address] [place] [address] 67474 MCV (RBC) [Entitic vol] 78 fL Low 80-100 [facility] Comment on above: Performed By: #### 3 0934-4 #### JACQUI Hayes ([id number]) [facility] ([facility]) [address] [place] [address] 23699 Nucleated RBC/100 WBC (Bld) [Ratio] 0.0 /100 WBCs Normal 0.0-0.0 [facility] Comment on above: Performed By: #### 3 0934-4 #### JACQUI Hayes ([id number]) [facility] ([facility]) [id number] [place] [address] 90497 Platelet mean volume (Bld) [Entitic vol] 8.9 fL Normal 7.5-11.5 [facility] Comment on above: Performed By: #### 3 0934-4 #### JACQUI Hayes ([id number]) [facility] ([facility]) [id number] [place] [address] 82822 Platelets (Bld) [#/Vol] 656 x10*3/uL High 150-450 [facility] Comment on above: Performed By: #### 3 0934-4 #### JACQUI Hayes ([id number]) [facility] ([facility]) [address] [place] [address] RBC (Bld) [#/Vol] 3.01 x10*6/uL Low 4.00-5.20 [facility] Comment on above: Performed By: #### 3 0934-4 #### JACQUI STYLES L ([id number]) [facility] ([facility]) [address] [place] [address] WBC (Bld) [#/Vol] 17.4 x10*3/uL High 4.4-11.3 [facility] Comment on above: Performed By: #### 3 0934-4 #### JACQUI Hayes ([id number]) [facility] ([facility]) [id number] [place] [address] 42031 Heparin.unfractionatedon Heparin unfractionated Chromogenic method Qn (PPP) 0.4 IU/mL Normal See Comment Below for Therapeutic Ranges [facility] Comment on above: Order Comment: Less than 99th percentile of normal range cutoff- Female and children under 18 years old <35 ng/L; Male <54 ng/L: Negative Repeat testing should be performed if clinically indicated. Female and children under 18 years old 35-120 ng/L; Male 54-120 ng/L: Consistent with possible cardiac damage and possible increased clinical risk. Serial measurements may help to assess extent of myocardial damage. >120 ng/L: Consistent with cardiac damage, increased clinical risk and myocardial infarction. Serial measurements may help assess extent of myocardial damage. NOTE: Children less than 1 year old may have higher baseline troponin levels and results should be interpreted in conjunction with the overall clinical context. NOTE: Troponin I testing is performed using a different testing methodology at [facility] than at other [facility]. Direct result comparisons should only be made within the same method. Performed By: #### 8 9577-1 #### JACQUI Hayes ([id number]) [facility] ([facility]) [id number] [place] [address] 78879 Magnesiumon 06-12-2023 Magnesium [Mass/Vol] 1.99 mg/dL Normal 1.60-2.40 [facility] Comment on above: Performed By: #### 3 0934-4 #### JACQUI Hayes ([id number]) [facility] ([facility]) [id number] [place] [address] 22931 Renal function 2000 panelon 06-12-2023 Albumin BCP dye [Mass/Vol] 2.8 g/dL Low 3.4-5.0 [facility] Comment on above: Performed By: #### 3 0934-4 #### JACQUI Hayes ([id number]) [facility] ([facility]) [address] [place] [address] 32736 Anion gap [Moles/Vol] 15 mmol/L Normal 10-20 [facility] Comment on above: Performed By: #### 3 0934-4 #### JACQUI Hayes ([id number]) [facility] ([facility]) [address] [place] [address] 87916 Calcium [Mass/Vol] 7.9 mg/dL Low 8.6-10.6 [facility] Comment on above: Performed By: #### 3 0934-4 #### JACQUI Hayes ([id number]) [facility] ([facility]) [id number] [place] [address] 90801 Chloride [Moles/Vol] 83 mmol/L Low 98-107 [facility] Comment on above: Performed By: #### 3 0934-4 #### JACQUI Hayes ([id number]) [facility] ([facility]) [address] [place] [address] 99715 CO2 [Moles/Vol] 26 mmol/L Normal 21-32 [facility] Comment on above: Performed By: #### 3 0934-4 #### JACQUI Hayes ([id number]) [facility] ([facility]) [id number] [place] [address] 83612 Creatinine [Mass/Vol] 0.37 mg/dL Low 0.50-1.05 [facility] Comment on above: Performed By: #### 3 0934-4 #### JACQUI Hayes ([id number]) [facility] ([facility]) [id number] [place] [address] 72692 GFR/1.73 sq M.predicted MDRD (S/P/Bld) [Vol rate/Area] mL/min/{1.73_m2} Normal >60 [facility] Comment on above: Result Comment: Calc ulations of estimated GFR are performed using the 2020 CKD-EPI Study Refit equation without the race variable for the IDMS-Traceable creatinine methods. https://jasn.asnjournals.org/content/early/ASN.34649 55128 Performed By: #### 3 0934-4 #### JACQUI Hayes ([id number]) [facility] ([facility]) [id number] [place] [address] 22089 Glucose [Mass/Vol] 102 mg/dL High 74-99 [facility] Comment on above: Performed By: #### 3 0934-4 #### JACQUI Hayes ([id number]) [facility] ([facility]) [address] [place] [address] Phosphate [Mass/Vol] 3.4 mg/dL Normal 2.5-4.9 [facility] Comment on above: Result Comment: The performance characteristics of phosphorus testing in heparinized plasma have been validated by the individual laboratory site where testing is performed. Testing on heparinized plasma is not approved by the FDA; however, such approval is not necessary. Performed By: #### 3 0934-4 #### JACQUI Hayes ([id number]) [facility] ([facility]) [address] [place] [address] Potassium [Moles/Vol] 4.2 mmol/L Normal 3.5-5.3 [facility] Comment on above: Performed By: #### 3 0934-4 #### JACQUI Hayes ([id number]) [facility] ([facility]) [address] [place] [address] Sodium [Moles/Vol] 120 mmol/L Critically low 136-145 [facility] Comment on above: Performed By: #### 3 0934-4 #### JACQUI STYLES L ([id number]) [facility] ([facility]) [id number] [place] [address] 59597 Urea nitrogen [Mass/Vol] 8 mg/dL Normal 6-23 [facility] Comment on above: Performed By: #### 3 0934-4 #### JACQUI GAER L ([id number]) [facility] ([facility]) [address] [place] [address] 00207 TRANSESOPHAGEAL ECHO (ANABEL)on 06-12-2023 TRANSESOPHAGEAL ECHO (ANABEL) [facility], [address] [place] [address]850 and TRANSESOPHAGEAL ECHOCARDIOGRAM REPORT Patient Name: MODESTAKATIA Medina Physician: [id number] Clari Jeffers MD Study Date: 06/12/2023 Ordering Provider: [id number] SOSA CORONADO MRN/PID: [id number] Fellow: [id number] Sosa Coronado MD Nurse: Date of /Age: 1 1940 / years Physically Impaired Teacher: Gender: F Additional Staff: BSA: m2 Study Type: TRANSESOPHAGEAL ECHO (ANABEL) Diagnosis/ICD: Unspecified atrial fibrillation-I48.91 Study Detail: The following Echo studies were performed: 2D and color flow. Patient's heart rhythm is atrial fibrillation. There is no evidence of QRS widening on the EKG tracing. PHYSICIAN INTERPRETATION: ANABEL Medication: The pharynx was anesthetized with viscous lidocaine. Midazolam and Fentanyl was used to sedate the patient for this exam. ANABEL Procedure: The probe was passed without difficulty. The patient tolerated the procedure well without any apparent complications. The following complication was encountered during the procedure: none. Left Ventricle: The left ventricular systolic function is normal. The left ventricular cavity size was not assessed. Left ventricular diastolic filling was not assessed. Left Atrium: The left atrium is enlarged. There is no definite left atrial thrombus present. There is a normal sized left atrial appendage and the left atrial appendage Doppler velocities are normal. There is no definite left atrial mass present. Right Ventricle: The right ventricle is normal in size. Right ventricular systolic function not assessed. Right Atrium: The right atrium was not assessed. Aortic Valve: The aortic valve was not assessed. Aortic valve regurgitation was not assessed. Mitral Valve: The mitral valve was not assessed. Mitral valve regurgitation was not assessed. Tricuspid Valve: The tricuspid valve was not assessed. Tricuspid regurgitation was not assessed. Pulmonic Valve: The pulmonic valve was not assessed. Pulmonic valve regurgitation was not assessed. Pericardium: A pericardial effusion was not well visualized. Aorta: The aortic root was not assessed. CONCLUSIONS: 1. Left ventricular systolic function is normal. 2. The left atrium is enlarged. 3. No left atrial mass. 4. No left atrial thrombus. QUANTITATIVE DATA SUMMARY: [id number] Clari Jeffers MD Electronically signed on 06/15/2023 at 3:58:32 PM Final [facility] XR CHEST 1 VIEWon 06-12-2023 XR CHEST 1 VIEW Interpreted By: Satya Person, STUDY: XR CHEST 1 VIEW; 06/12/2023 10:24 am INDICATION: Signs/Symptoms:hf. COMPARISON: 06/11/2023 ACCESSION NUMBER(S): [id number] ORDERING CLINICIAN: JANE GIRALDO FINDINGS: CARDIOMEDIASTINAL SILHOUETTE: Cardiomegaly versus pericardial effusion radiopaque monitoring device overlying the cardiac silhouette LUNGS: Minimal improvement in interstitial edema with continued edema and effusions. Calcified left-sided granulomas ABDOMEN: No remarkable upper abdominal findings. BONES: No acute osseous changes. IMPRESSION: 1. Minimal improvement in interstitial edema/effusions correlate with cardiac and fluid status Signed by: Satya Saleh 06/12/2023 11:33 AM Dictation workstation: [id number] [facility] Bacteria identifiedon 2022 Bacteria identified Cx Nom (Bld) Test: Blood Culture Specimen Source: Peripheral Venipuncture Specimen Type: Blood culture Specimen Date: 06/11/2023 11:46 AM Result Date: 06/15/2023 2:01 PM Result Status: Final result Abnormal: No Resulting Lab: [facility] [address] [place] [address] CULTURE No growth at 4 days - FINAL REPORT Normal [facility] Comment on above: Performed By: #### 2 524-7 #### JACQUI Hayes ([id number]) [facility] ([facility]) [id number] [place] [address] 50022 CBC panel Auto (Bld)on 06-11 Erythrocyte distribution width (RBC) [Ratio] 13.3 % Normal 11.5-14.5 [facility] Comment on above: Performed By: #### 8 9577-1 #### JACQUI Hayes ([id number]) [facility] ([facility]) [address] [place] [address] 45405 Hematocrit (Bld) [Volume fraction] 24.3 % Low 36.0-46.0 [facility] Comment on above: Performed By: #### 8 9577-1 #### JACQUI Hayes ([id number]) [facility] ([facility]) [address] [place] [address] 09874 Hemoglobin (Bld) [Mass/Vol] 8.1 g/dL Low 12.0-16.0 [facility] Comment on above: Performed By: #### 8 9577-1 #### JACQUI Hayes ([id number]) [facility] ([facility]) [address] [place] [address] 24244 MCH (RBC) [Entitic mass] 26.8 pg Normal 26.0-34.0 [facility] Comment on above: Performed By: #### 8 9577-1 #### JACQUI Hayes ([id number]) [facility] ([facility]) [address] [place] [address] 28054 MCHC (RBC) [Mass/Vol] 33.3 g/dL Normal 32.0-36.0 [facility] Comment on above: Performed By: #### 8 9577-1 #### JACQUI Hayes ([id number]) [facility] ([facility]) [address] [place] [address] 46256 MCV (RBC) [Entitic vol] 81 fL Normal 80-100 [facility] Comment on above: Performed By: #### 8 9577-1 #### JACQUI Hayes ([id number]) [facility] ([facility]) [id number] [place] [address] 33861 Nucleated RBC/100 WBC (Bld) [Ratio] 0.0 /100 WBCs Normal 0.0-0.0 [facility] Comment on above: Performed By: #### 8 9577-1 #### JACQUI Hayes ([id number]) [facility] ([facility]) [id number] [place] [address] 46422 Platelet mean volume (Bld) [Entitic vol] 9.2 fL Normal 7.5-11.5 [facility] Comment on above: Performed By: #### 8 9577-1 #### JACQUI Hayes ([id number]) [facility] ([facility]) [id number] [place] [address] 97749 Platelets (Bld) [#/Vol] 550 x10*3/uL High 150-450 [facility] Comment on above: Performed By: #### 8 9577-1 #### JACQUI Hayes ([id number]) [facility] ([facility]) [address] [place] [address] 02585 RBC (Bld) [#/Vol] 3.02 x10*6/uL Low 4.00-5.20 [facility] Comment on above: Performed By: #### 8 9577-1 #### JACQUI Hayes ([id number]) [facility] ([facility]) [id number] [place] [address] 13123 WBC (Bld) [#/Vol] 15.7 x10*3/uL High 4.4-11.3 [facility] Comment on above: Performed By: #### 8 9577-1 #### JACQUI Hayes ([id number]) [facility] ([facility]) [address] [place] [address] Erythrocyte distribution width (RBC) [Ratio] 13.4 % Normal 11.5-14.5 [facility] Comment on above: Performed By: #### 3 4529-8 #### JACQUI Hayes ([id number]) [facility] ([facility]) [address] [place] [address] 12446 Hematocrit (Bld) [Volume fraction] 23.7 % Low 36.0-46.0 [facility] Comment on above: Performed By: #### 3 4529-8 #### JACQUI Hayes ([id number]) [facility] ([facility]) [address] [place] [address] 42262 Hemoglobin (Bld) [Mass/Vol] 7.8 g/dL Low 12.0-16.0 [facility] Comment on above: Performed By: #### 3 4529-8 #### JACQUI Hayes ([id number]) [facility] ([facility]) [address] [place] [address] 00109 MCH (RBC) [Entitic mass] 27.4 pg Normal 26.0-34.0 [facility] Comment on above: Performed By: #### 3 4529-8 #### JACQUI Hayes ([id number]) [facility] ([facility]) [address] [place] [address] 82248 MCHC (RBC) [Mass/Vol] 32.9 g/dL Normal 32.0-36.0 [facility] Comment on above: Performed By: #### 3 4529-8 #### JACQUI Hayes ([id number]) [facility] ([facility]) [address] [place] [address] 30774 MCV (RBC) [Entitic vol] 83 fL Normal 80-100 [facility] Comment on above: Performed By: #### 3 4529-8 #### JACQUI Hayes ([id number]) [facility] ([facility]) [address] [place] [address] 07034 Nucleated RBC/100 WBC (Bld) [Ratio] 0.0 /100 WBCs Normal 0.0-0.0 [facility] Comment on above: Performed By: #### 3 4529-8 #### JACQUI STYLES L ([id number]) [facility] ([facility]) [address] [place] [address] Platelet mean volume (Bld) [Entitic vol] 8.7 fL Normal 7.5-11.5 [facility] Comment on above: Performed By: #### 3 4529-8 #### JACQUI FALLONTZER L ([id number]) [facility] ([facility]) [id number] [place] [address] 00671 Platelets (Bld) [#/Vol] 605 x10*3/uL High 150-450 [facility] Comment on above: Performed By: #### 3 4529-8 #### JACQUI STYLES L ([id number]) [facility] ([facility]) [id number] [place] [address] 31990 RBC (Bld) [#/Vol] 2.85 x10*6/uL Low 4.00-5.20 [facility] Comment on above: Performed By: #### 3 4529-8 #### JACQUI STYLES L ([id number]) [facility] ([facility]) [address] [place] [address] 02453 WBC (Bld) [#/Vol] 18.0 x10*3/uL High 4.4-11.3 [facility] Comment on above: Performed By: #### 3 4529-8 #### JACQUI GAER L ([id number]) [facility] ([facility]) [address] [place] [address] ABDOMEN PELVIS W IV CONTR Shantell 06-11-2023 CT ABDOMEN PELVIS W IV CONTRAST Interpreted By: Jose Sheth, STUDY: CT ABDOMEN PELVIS W IV CONTRAST; 06/11/2023 6:08 pm INDICATION: Signs/Symptoms:diverticul itis. COMPARISON: None. ACCESSION NUMBER(S): [id number] ORDERING CLINICIAN: EBONI DLE CID TECHNIQUE: Contiguous axial images of the abdomen and pelvis were obtained after the intravenous administration of 75 mL Omnipaque 350 contrast. Coronal and sagittal reformatted images were reconstructed from the axial data. FINDINGS: LOWER CHEST: There is a moderate pericardial effusion with thickening of the pericardium. The heart is mildly enlarged. There is mild coronary artery calcification. There are small bilateral pleural effusions with multisegmental bibasilar atelectasis. ABDOMEN/PELVIS: ABDOMINAL WALL: Mild body wall anasarca. There is an acute hematoma in the left rectus abdominus muscle measuring 13.9 cm x 6.3 cm x 3.7 cm. There is a layering hematocrit level in the hematoma indicative of coagulopathy. LIVER: Within segment 3, there is a 1.3 cm cyst containing simple fluid density and likely a thin internal septation, and likely benign. No other focal parenchymal abnormalities. BILE DUCTS: No significant intrahepatic or extrahepatic dilatation. GALLBLADDER: No acute abnormality. A Phrygian cap is noted. No calcified gallstones. PANCREAS: No significant abnormality. SPLEEN: Normal size. Calcified granulomas. ADRENALS: No significant abnormality. KIDNEYS, URETERS, BLADDER: Multiple simple bilateral renal cysts measuring up to 4 cm on the right and 6 cm on the left. There are multiple xhg-gabvo-rl-characterize hypodensities in the kidneys statistically representing benign cysts. No hydroureteronephrosis or nephroureterolithiasis. The urinary bladder wall thickness appears within normal limits for degree of distention. REPRODUCTIVE ORGANS: Surgically absent uterus. VESSELS: Mild aortic atherosclerosis without AAA. RETROPERITONEUM/LYMPH NODES: No enlarged lymph nodes. No acute retroperitoneal abnormality. BOWEL/MESENTERY/PERITONEU M: There is a gastric diverticulum arising from the fundus but there is a small hiatal hernia. No inflammatory bowel wall thickening or dilatation. The appendix is not identified; however, there are no pericecal inflammatory changes. There is colonic diverticulosis. No ascites, free air, or fluid collection. MUSCULOSKELETAL: No acute osseous abnormality. The bones are osteopenic. There postsurgical changes of L5 laminectomy.. There are multiple degenerative changes the spine resulting in up to moderate L2-L3 canal stenosis. IMPRESSION: 1. Acute hematoma in the left rectus abdominus muscle measuring 13.9 cm x 6.3 cm x 3.7 cm.There is a layering hematocrit level in the hematoma indicative of coagulopathy. 2. Colonic diverticulosis without acute diverticulitis. A gastric diverticulum is also noted. 3. Moderate pericardial effusion with pericardial thickening/enhancement suspicious for pericarditis of indeterminate chronicity. Correlation with echocardiography recommended. 4. Small bilateral pleural effusions with adjacent passive atelectasis. MACRO: Jose Sheth discussed the significance and urgency of this critical finding by telephone with Jane Giraldo on 06/12/2023 at 12:31 pm. (-RCF-) Findings: See findings. Signed by: Jose Sheth 06/12/2023 12:38 PM Dictation workstation: [id number] Normal [facility] Comprehensive metabolic 2000 panelon 06-11-2023 Albumin BCP dye [Mass/Vol] 3.0 g/dL Low 3.4-5.0 [facility] Comment on above: Performed By: #### 8 9577-1 #### JACQUI Hayes ([id number]) [facility] ([facility]) [id number] [place] [address] 20904 ALP [Catalytic activity/Vol] 125 U/L Normal 33-136 [facility] Comment on above: Performed By: #### 8 9577-1 #### JACQUI Hayes ([id number]) [facility] ([facility]) [id number] [place] [address] 96339 ALT With P-5'-P [Catalytic activity/Vol] 25 U/L Normal 7-45 [facility] Comment on above: Result Comment: Chelsy ents treated with Sulfasalazine may generate falsely decreased results for ALT. Performed By: #### 8 9577-1 #### AJCQUI Hayes ([id number]) [facility] ([facility]) [id number] [place] [address] 30515 Anion gap [Moles/Vol] 18 mmol/L Normal 10-20 [facility] Comment on above: Performed By: #### 8 9577-1 #### JACQUI Hayes ([id number]) [facility] ([facility]) [id number] [place] [address] 31841 AST With P-5'-P [Catalytic activity/Vol] 16 U/L Normal 9-39 [facility] Comment on above: Performed By: #### 8 9577-1 #### JACQUI STYLES L ([id number]) [facility] ([facility]) [address] [place] [address] Bilirubin [Mass/Vol] 0.5 mg/dL Normal 0.0-1.2 [facility] Comment on above: Performed By: #### 8 9577-1 #### JACQUI Hayes ([id number]) [facility] ([facility]) [address] [place] [address] Calcium [Mass/Vol] 8.1 mg/dL Low 8.6-10.6 [facility] Comment on above: Performed By: #### 8 9577-1 #### JACQUI STYLES L ([id number]) [facility] ([facility]) [address] [place] [address] Chloride [Moles/Vol] 79 mmol/L Low 98-107 [facility] Comment on above: Performed By: #### 8 9577-1 #### JACQUI STYLES L ([id number]) [facility] ([facility]) [address] [place] [address] CO2 [Moles/Vol] 25 mmol/L Normal 21-32 [facility] Comment on above: Performed By: #### 8 9577-1 #### JACQUI STYLES L ([id number]) [facility] ([facility]) [address] [place] [address] Creatinine [Mass/Vol] 0.42 mg/dL Low 0.50-1.05 [facility] Comment on above: Performed By: #### 8 9577-1 #### JACQUI STYLES L ([id number]) [facility] ([facility]) [id number] [place] [address] 08715 GFR/1.73 sq M.predicted MDRD (S/P/Bld) [Vol rate/Area] mL/min/{1.73_m2} Normal >60 [facility] Comment on above: Result Comment: Calc ulations of estimated GFR are performed using the 2020 CKD-EPI Study Refit equation without the race variable for the IDMS-Traceable creatinine methods. https://jasn.asnjournals.org/content/early/ASN.88147 96763 Performed By: #### 8 9577-1 #### JACQUI Hayes ([id number]) [facility] ([facility]) [id number] [place] [address] 51015 Glucose [Mass/Vol] 174 mg/dL High 74-99 [facility] Comment on above: Performed By: #### 8 9577-1 #### JACQUI Hayes ([id number]) [facility] ([facility]) [address] [place] [address] 28254 Potassium [Moles/Vol] 3.8 mmol/L Normal 3.5-5.3 [facility] Comment on above: Performed By: #### 8 9577-1 #### JACQUI Hayes ([id number]) [facility] ([facility]) [address] [place] [address] 73592 Protein [Mass/Vol] 6.1 g/dL Low 6.4-8.2 [facility] Comment on above: Performed By: #### 8 9577-1 #### JACQUI Hayes ([id number]) [facility] ([facility]) [address] [place] [address] 17985 Sodium [Moles/Vol] 118 mmol/L Critically low 136-145 [facility] Comment on above: Performed By: #### 8 9577-1 #### JACQUI Hayes ([id number]) [facility] ([facility]) [id number] [place] [address] 42034 Urea nitrogen [Mass/Vol] 8 mg/dL Normal 6-23 [facility] Comment on above: Performed By: #### 8 9577-1 #### JACQUI Hayes ([id number]) [facility] ([facility]) [id number] [place] [address] 89552 Albumin BCP dye [Mass/Vol] 2.7 g/dL Low 3.4-5.0 [facility] Comment on above: Performed By: #### 2 524-7 #### JACQUI Hayes ([id number]) [facility] ([facility]) [address] [place] [address] ALP [Catalytic activity/Vol] 120 U/L Normal 33-136 [facility] Comment on above: Performed By: #### 2 524-7 #### JACQUI Hayes ([id number]) [facility] ([facility]) [address] [place] [address] ALT With P-5'-P [Catalytic activity/Vol] 30 U/L Normal 7-45 [facility] Comment on above: Result Comment: Chelsy ents treated with Sulfasalazine may generate falsely decreased results for ALT. Performed By: #### 2 524-7 #### JACQUI Hayes ([id number]) [facility] ([facility]) [address] [place] [address] Anion gap [Moles/Vol] 17 mmol/L Normal 10-20 [facility] Comment on above: Performed By: #### 2 524-7 #### JACQUI Hayes ([id number]) [facility] ([facility]) [address] [place] [address] AST With P-5'-P [Catalytic activity/Vol] 19 U/L Normal 9-39 [facility] Comment on above: Performed By: #### 2 524-7 #### JACQUI Hayes ([id number]) [facility] ([facility]) [address] [place] [address] Bilirubin [Mass/Vol] 0.5 mg/dL Normal 0.0-1.2 [facility] Comment on above: Performed By: #### 2 524-7 #### JACQUI Hayes ([id number]) [facility] ([facility]) [id number] [place] [address] 25732 Calcium [Mass/Vol] 7.8 mg/dL Low 8.6-10.6 [facility] Comment on above: Performed By: #### 2 524-7 #### JACQUI Hayes ([id number]) [facility] ([facility]) [address] [place] [address] [place] [address] Chloride [Moles/Vol] 84 mmol/L Low 98-107 [facility] Comment on above: Performed By: #### 2 524-7 #### JACQUI Hayes ([id number]) [facility] ([facility]) [address] [place] [address] CO2 [Moles/Vol] 24 mmol/L Normal 21-32 [facility] Comment on above: Performed By: #### 2 524-7 #### JACQUI Hayes ([id number]) [facility] ([facility]) [address] [place] [address] Creatinine [Mass/Vol] 0.49 mg/dL Low 0.50-1.05 [facility] Comment on above: Performed By: #### 2 524-7 #### JACQUI Hayes ([id number]) [facility] ([facility]) [address] [place] [address] GFR/1.73 sq M.predicted MDRD (S/P/Bld) [Vol rate/Area] mL/min/{1.73_m2} Normal >60 [facility] Comment on above: Result Comment: Calc ulations of estimated GFR are performed using the 2020 CKD-EPI Study Refit equation without the race variable for the IDMS-Traceable creatinine methods. https://jasn.asnjournals.org/content//ASN.82859 18140 Performed By: #### 2 524-7 #### JACQUI Hayes ([id number]) [facility] ([facility]) [address] [place] [address] Glucose [Mass/Vol] 136 mg/dL High 74-99 [facility] Comment on above: Performed By: #### 2 524-7 #### JACQUI Hayes ([id number]) [facility] ([facility]) [address] [place] [address] Potassium [Moles/Vol] 4.0 mmol/L Normal 3.5-5.3 [facility] Comment on above: Performed By: #### 2 524-7 #### JACQUI Hayes ([id number]) [facility] ([facility]) [address] [place] [address] 67445 Protein [Mass/Vol] 5.6 g/dL Low 6.4-8.2 [facility] Comment on above: Performed By: #### 2 524-7 #### JACQUI Hayes ([id number]) [facility] ([facility]) [address] [place] [address] 67426 Sodium [Moles/Vol] 121 mmol/L Low 136-145 [facility] Comment on above: Performed By: #### 2 524-7 #### JACQUI Hayes ([id number]) [facility] ([facility]) [address] [place] [address] 95508 Urea nitrogen [Mass/Vol] 12 mg/dL Normal 6-23 [facility] Comment on above: Performed By: #### 2 524-7 #### JACQUI Hayes ([id number]) [facility] ([facility]) [address] [place] [address] 60682 ELECTROLYTE PANEL, URINEon 1 - Chloride (U) [Moles/Vol] 74 mmol/L Normal [facility] Comment on above: Performed By: #### 8 9577-1 #### JACQUI Hayes ([id number]) [facility] ([facility]) [address] [place] [address] 17195 CHLORIDE/CREATININE (MMOL/G) IN URINE 396 mmol/g creat High 38-318 [facility] Comment on above: Performed By: #### 8 9577-1 #### JACQUI Hayes ([id number]) [facility] ([facility]) [address] [place] [address] 77486 Creatinine (U) [Mass/Vol] 18.7 mg/dL Low 20.0-320.0 [facility] Comment on above: Performed By: #### 8 9577-1 #### JACQUI Hayes ([id number]) [facility] ([facility]) [address] [place] [address] Potassium (U) [Moles/Vol] 33 mmol/L Normal [facility] Comment on above: Performed By: #### 8 9577-1 #### JACQUI Hayes ([id number]) [facility] ([facility]) [address] [place] [address] 06301 Potassium/Creatinine (U) [Ratio] 176 mmol/g Creat Normal Not established [facility] Comment on above: Performed By: #### 8 9577-1 #### JACQUI Hayes ([id number]) [facility] ([facility]) [address] [place] [address] 09740 Sodium (U) [Moles/Vol] 72 mmol/L [facility] Performed By: #### 8 9577-1 #### JACQUI Hayes ([id number]) [facility] ([facility]) [address] [place] [address] 31789 Sodium/Creatinine (U) [Ratio] 385 mmol/g Creat Normal Not established. [facility] Comment on above: Performed By: #### 8 9577-1 #### JACQUI Hayes ([id number]) [facility] ([facility]) [address] [place] [address] 92221 Heparin.unfractionatedon Heparin unfractionated Chromogenic method Qn (PPP) 0.4 IU/mL Normal See Comment Below for Therapeutic Ranges [facility] Comment on above: Order Comment: The A PTT is no longer used for monitoring Unfractionated Heparin Therapy. For monitoring Heparin Therapy, use the Heparin Assay. Performed By: #### 3 4529-8 #### JACQUI Hayes ([id number]) [facility] ([facility]) [address] [place] [address] 33727 Lactateon 06-11-2023 Lactate (BldA) [Moles/Vol] 1.2 mmol/L Normal 0.4-2.0 [facility] Comment on above: Performed By: #### 2 524-7 #### JACQUI Hayes ([id number]) [facility] ([facility]) [address] [place] [address] 23917 Legionella sp Agon Legionella sp Ag Ql (U) Negative Normal Negative [facility] Comment on above: Performed By: #### 3 0934-4 #### JACQUI Hayes ([id number]) [facility] ([facility]) [address] [place] [address] 91581 Magnesiumon 06-11-2023 Magnesium [Mass/Vol] 1.97 mg/dL Normal 1.60-2.40 [facility] Comment on above: Performed By: #### 8 9577-1 #### JCAQUI Hayes ([id number]) [facility] ([facility]) [address] [place] [address] 42104 Magnesium [Mass/Vol] 1.58 mg/dL Low 1.60-2.40 [facility] Comment on above: Performed By: #### 2 524-7 #### JACQUI Hayes ([id number]) [facility] ([facility]) [address] [place] [address] 25745 Osmolalityon 06-11-2023 Osmolality (U) [Osmolality] 303 mosm/kg Normal 200-1200 [facility] Comment on above: Performed By: #### 8 9577-1 #### JACQUI Hayes ([id number]) [facility] ([facility]) [address] [place] [address] 34850 Osmolality [Osmolality] 241 mosm/kg Low 280-300 [facility] Comment on above: Performed By: #### 8 9577-1 #### JACQUI Hayes ([id number]) [facility] ([facility]) [address] [place] [address] 28498 Osmolality [Osmolality] 249 mosm/kg Low 280-300 [facility] Comment on above: Performed By: #### 2 524-7 #### JACQUI Hayes ([id number]) [facility] ([facility]) [address] [place] [address] 48134 Phosphateon 06-11-2023 Phosphate [Mass/Vol] 3.3 mg/dL Normal 2.5-4.9 [facility] Comment on above: Result Comment: The performance characteristics of phosphorus testing in heparinized plasma have been validated by the individual laboratory site where testing is performed. Testing on heparinized plasma is not approved by the FDA; however, such approval is not necessary. Performed By: #### 8 9577-1 #### JACQUI Hayes ([id number]) [facility] ([facility]) [address] [place] [address] 22671 Renal function 2000 panelon 06-11-2023 Albumin BCP dye [Mass/Vol] 3.0 g/dL Low 3.4-5.0 [facility] Comment on above: Performed By: #### 2 524-7 #### JACQUI Hayes ([id number]) [facility] ([facility]) [address] [place] [address] 11842 Anion gap [Moles/Vol] 16 mmol/L Normal 10-20 [facility] Comment on above: Performed By: #### 2 524-7 #### JACQUI Hayes ([id number]) [facility] ([facility]) [address] [place] [address] 41660 Calcium [Mass/Vol] 7.5 mg/dL Low 8.6-10.6 [facility] Comment on above: Performed By: #### 2 524-7 #### JACQUI Hayes ([id number]) [facility] ([facility]) [address] [place] [address] 58366 Chloride [Moles/Vol] 81 mmol/L Low 98-107 [facility] Comment on above: Performed By: #### 2 524-7 #### JACQUI Hayes ([id number]) [facility] ([facility]) [address] [place] [address] 09659 CO2 [Moles/Vol] 26 mmol/L Normal 21-32 [facility] Comment on above: Performed By: #### 2 524-7 #### JACQUI Hayes ([id number]) [facility] ([facility]) [address] [place] [address] Creatinine [Mass/Vol] 0.45 mg/dL Low 0.50-1.05 [facility] Comment on above: Performed By: #### 2 524-7 #### JACQUI Hayes ([id number]) [facility] ([facility]) [address] [place] [address] GFR/1.73 sq M.predicted MDRD (S/P/Bld) [Vol rate/Area] mL/min/{1.73_m2} Normal >60 [facility] Comment on above: Result Comment: Calc ulations of estimated GFR are performed using the 2020 CKD-EPI Study Refit equation without the race variable for the IDMS-Traceable creatinine methods. https://jasn.asnjournals.org/content/early/ASN.29566 70983 Performed By: #### 2 524-7 #### JACQUI Hayes ([id number]) [facility] ([facility]) [address] [place] [address] Glucose [Mass/Vol] 167 mg/dL High 74-99 [facility] Comment on above: Performed By: #### 2 524-7 #### JACQUI Hayes ([id number]) [facility] ([facility]) [address] [place] [address] Phosphate [Mass/Vol] 3.3 mg/dL Normal 2.5-4.9 [facility] Comment on above: Result Comment: The performance characteristics of phosphorus testing in heparinized plasma have been validated by the individual laboratory site where testing is performed. Testing on heparinized plasma is not approved by the FDA; however, such approval is not necessary. Performed By: #### 2 524-7 #### JACQUI Hayes ([id number]) [facility] ([facility]) [address] [place] [address] Potassium [Moles/Vol] 3.7 mmol/L Normal 3.5-5.3 [facility] Comment on above: Performed By: #### 2 524-7 #### JACQUI Hayes ([id number]) [facility] ([facility]) [address] [place] [address] 19399 Sodium [Moles/Vol] 119 mmol/L Critically low 136-145 Un [facility] Comment on above: Performed By: #### 2 524-7 #### JACQUI Hayes ([id number]) [facility] ([facility]) [address] [place] [address] 03989 Urea nitrogen [Mass/Vol] 10 mg/dL Normal 6- [facility] Comment on above: Performed By: #### 2 524-7 #### JACQUI Hayes ([id number]) [facility] ([facility]) [address] [place] [address] 66529 Streptococcus pneumoniae Ago n 06-11-2023 S. pneumoniae Ag Ql (U) Negative Normal Negative [facility] Comment on above: Performed By: #### 3 0934-4 #### JACQUI Hayes ([id number]) [facility] ([facility]) [address] [place] [address] 08298 Urinalysis complete panel (U )on 06-11-2023 Appearance (U) Hazy Normal Clear [facility] Comment on above: Performed By: #### 8 9577-1 #### JACQUI Hayes ([id number]) [facility] ([facility]) [address] [place] [address] 33286 Bilirubin (U) [Mass/Vol] Negative Normal NEGATIVE [facility] Comment on above: Performed By: #### 8 9577-1 #### JACQUI Hayes ([id number]) [facility] ([facility]) [address] [place] [address] 72604 Color (U) Yellow Normal Straw, Yellow [facility] Comment on above: Performed By: #### 8 9577-1 #### JACQUI Hayes ([id number]) [facility] ([facility]) [address] [place] [address] 76651 Glucose Auto test strip (U) [Mass/Vol] Negative Normal NEGATIVE [facility] Comment on above: Performed By: #### 8 9577-1 #### JACQUI Hayes ([id number]) [facility] ([facility]) [address] [place] [address] 58154 Ketones (U) [Mass/Vol] Negative Normal NEGATIVE [facility] Comment on above: Performed By: #### 8 9577-1 #### JACQUI Hayes ([id number]) [facility] ([facility]) [address] [place] [address] 48727 Leukocyte esterase Auto test strip Ql (U) Negative Normal NEGATIVE [facility] Comment on above: Performed By: #### 8 9577-1 #### JACQUI Hayes ([id number]) [facility] ([facility]) [address] [place] [address] 40258 Nitrite Auto test strip Ql (U) Negative Normal NEGATIVE [facility] Comment on above: Performed By: #### 8 9577-1 #### JACQUI Hayes ([id number]) [facility] ([facility]) [address] [place] [address] 62627 pH (U) 8.0 [pH] Normal 5.0, 5.5, 6.0, 6.5, 7.0, 7.5, 8.0 [facility] Comment on above: Performed By: #### 8 9577-1 #### JACQUI Hayes ([id number]) [facility] ([facility]) [address] [place] [address] 68572 Protein (U) [Mass/Vol] Negative Normal NEGATIVE [facility] Comment on above: Performed By: #### 8 9577-1 #### JACQUI Hayes ([id number]) [facility] ([facility]) [address] [place] [address] 90672 RBC (U) [#/Vol] SMALL (1+) Abnormal NEGATIVE [facility] Comment on above: Performed By: #### 8 9577-1 #### JACQUI Hayes ([id number]) [facility] ([facility]) [address] [place] [address] 54614 Specific gravity (U) [Rel density] 1.020 Normal 1.005-1.035 [facility] Comment on above: Performed By: #### 8 9577-1 #### JACQUI Hayes ([id number]) [facility] ([facility]) [address] [place] [address] 50811 Urobilinogen (U) [Mass/Vol] mg/dL Normal <2.0 [facility] Comment on above: Performed By: #### 8 9577-1 #### JACQUI Hayes ([id number]) [facility] ([facility]) [address] [place] [address] 87632 Urinalysis microscopic panel Auto Ql (U)on 06-11-2023 Mucus Auto (Urine sed) [#/Area] 1+ /LPF Normal Reference range not established. [facility] Comment on above: Performed By: #### 8 9577-1 #### JACQUI Hayes ([id number]) [facility] ([facility]) [address] [place] [address] 71695 RBC Auto (Urine sed) [#/Area] 11-20 Abnormal NONE, 1-2, 3-5 [facility] Comment on above: Performed By: #### 8 9577-1 #### JACQUI Hayes ([id number]) [facility] ([facility]) [address] [place] [address] 60143 WBC Auto (Urine sed) [#/Area] NONE Normal 1-5, NONE [facility] Comment on above: Performed By: #### 8 9577-1 #### JACQUI Hayes ([id number]) [facility] ([facility]) [address] [place] [id number] XR CHEST 1 VIEWon 06-11-2023 XR CHEST 1 VIEW Interpreted By: Satya Person, STUDY: XR CHEST 1 VIEW; 06/11/2023 7:07 am INDICATION: Signs/Symptoms:wheezing and o2 requirement. COMPARISON: 08/10/2023 ACCESSION NUMBER(S): [id number] ORDERING CLINICIAN: EBONI DEL CID FINDINGS: CARDIOMEDIASTINAL SILHOUETTE: Cardiomegaly versus pericardial effusion radiopaque monitoring device overlies the cardiac silhouette LUNGS: Slight interval worsening in perihilar and upper lobe edema. Calcified left upper lobe granuloma ABDOMEN: No remarkable upper abdominal findings. BONES: No acute osseous changes. IMPRESSION: 1. Slight interval worsening in perihilar edema and correlate with cardiac and fluid status Signed by: Satya Saleh 06/12/2023 9:00 AM Dictation workstation: [id number] [facility] XR FOOT LEFT 3+ VIEWSon 05-17 XR FOOT LEFT 3+ VIEWS Interpreted By: Krzysztof Gil, ADDENDUM: The study title on the originally signed report is incorrect. The study title should read XR Foot LEFT 3+ VIEWS. Signed by: Krzysztof Escalera 06/11/2023 1:24 PM -------- ORIGINAL REPORT -------- Dictation workstation: [id number] Interpreted By: Krzysztof Escalera, STUDY: XR FOOT LEFT 1-2 VIEWS; ; 06/10/2023 11:56 am INDICATION: Signs/Symptoms:fall. COMPARISON: None. ACCESSION NUMBER(S): [id number] ORDERING CLINICIAN: EBONI DEL CID FINDINGS: Three views of the left foot were provided. There is diffuse demineralization of the bones, limiting assessment for acute fracture. No acute fracture or malalignment. 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 IMPRESSION: No acute osseous abnormality of the left foot. MACRO: None Signed by: Krzysztof Escalera 06/10/2023 1:31 PM Dictation workstation: [id number] [facility] CBC panel Auto (Bld)on 06-10 Erythrocyte distribution width (RBC) [Ratio] 13.2 % Normal 11.5-14.5 [facility] Comment on above: Performed By: #### 5 7021-8 #### JACQUI Hayes ([id number]) [facility] ([facility]) [address] [place] [address] Hematocrit (Bld) [Volume fraction] 24.3 % Low 36.0-46.0 [facility] Comment on above: Performed By: #### 5 7021-8 #### JACQUI Hayes ([id number]) [facility] ([facility]) [address] [place] [address] 50865 Hemoglobin (Bld) [Mass/Vol] 8.1 g/dL Low 12.0-16.0 [facility] Comment on above: Performed By: #### 5 7021-8 #### JACQUI Hayes ([id number]) [facility] ([facility]) [address] [place] [address] 94044 MCH (RBC) [Entitic mass] 26.4 pg Normal 26.0-34.0 [facility] Comment on above: Performed By: #### 5 7021-8 #### JACQUI Hayes ([id number]) [facility] ([facility]) [address] [place] [address] 44279 MCHC (RBC) [Mass/Vol] 33.3 g/dL Normal 32.0-36.0 [facility] Comment on above: Performed By: #### 5 7021-8 #### JACQUI Hayes ([id number]) [facility] ([facility]) [address] [place] [address] 66135 MCV (RBC) [Entitic vol] 79 fL Low 80-100 [facility] Comment on above: Performed By: #### 5 7021-8 #### JACQUI Hayes ([id number]) [facility] ([facility]) [address] [place] [address] 00519 Nucleated RBC/100 WBC (Bld) [Ratio] 0.0 /100 WBCs Normal 0.0-0.0 [facility] Comment on above: Performed By: #### 5 7021-8 #### JACQUI Hayes ([id number]) [facility] ([facility]) [address] [place] [address] 02222 Platelet mean volume (Bld) [Entitic vol] 8.9 fL Normal 7.5-11.5 [facility] Comment on above: Performed By: #### 5 7021-8 #### JACQUI Hayes ([id number]) [facility] ([facility]) [address] [place] [address] Platelets (Bld) [#/Vol] 595 x10*3/uL High 150-450 [facility] Comment on above: Performed By: #### 5 7021-8 #### JACQUI Hayes ([id number]) [facility] ([facility]) [id number] [place] [address] 89440 RBC (Bld) [#/Vol] 3.07 x10*6/uL Low 4.00-5.20 [facility] Comment on above: Performed By: #### 5 7021-8 #### JACQUI Hayes ([id number]) [facility] ([facility]) [address] [place] [address] 38435 WBC (Bld) [#/Vol] 16.6 x10*3/uL High 4.4-11.3 [facility] Comment on above: Performed By: #### 5 7021-8 #### JACQUI Hayes ([id number]) [facility] ([facility]) [address] [place] [address] 41561 Comprehensive metabolic 2000 panelon 06-10-2023 Albumin BCP dye [Mass/Vol] 2.8 g/dL Low 3.4-5.0 [facility] Comment on above: Performed By: #### 3 4529-8 #### JACQUI Hayes ([id number]) [facility] ([facility]) [id number] [place] [address] 28515 ALP [Catalytic activity/Vol] 113 U/L Normal 33-136 [facility] Comment on above: Performed By: #### 3 4529-8 #### JACQUI Hayes ([id number]) [facility] ([facility]) [address] [place] [address] 45125 ALT With P-5'-P [Catalytic activity/Vol] 33 U/L Normal 7-45 [facility] Comment on above: Result Comment: Chelsy ents treated with Sulfasalazine may generate falsely decreased results for ALT. Performed By: #### 3 4529-8 #### JACQUI Hayes ([id number]) [facility] ([facility]) [address] [place] [address] Anion gap [Moles/Vol] 12 mmol/L Normal 10-20 [facility] Comment on above: Performed By: #### 3 4529-8 #### JACQUI Hayes ([id number]) [facility] ([facility]) [id number] [place] [address] 18800 AST With P-5'-P [Catalytic activity/Vol] 18 U/L Normal 9-39 [facility] Comment on above: Performed By: #### 3 4529-8 #### JACQUI Hayes ([id number]) [facility] ([facility]) [id number] [place] [address] 02829 Bilirubin [Mass/Vol] 0.4 mg/dL Normal 0.0-1.2 [facility] Comment on above: Performed By: #### 3 4529-8 #### JACQUI Hayes ([id number]) [facility] ([facility]) [address] [place] [address] 68620 Calcium [Mass/Vol] 8.3 mg/dL Low 8.6-10.6 [facility] Comment on above: Performed By: #### 3 4529-8 #### JACQUI Hayes ([id number]) [facility] ([facility]) [address] [place] [address] 38870 Chloride [Moles/Vol] 93 mmol/L Low 98-107 [facility] Comment on above: Performed By: #### 3 4529-8 #### JACQUI Hayes ([id number]) [facility] ([facility]) [address] [place] [address] 52881 CO2 [Moles/Vol] 26 mmol/L Normal 21-32 [facility] Comment on above: Performed By: #### 3 4529-8 #### JACQUI Hayes ([id number]) [facility] ([facility]) [id number] [place] [address] 37028 Creatinine [Mass/Vol] 0.49 mg/dL Low 0.50-1.05 [facility] Comment on above: Performed By: #### 3 4529-8 #### JACQUI Hayes ([id number]) [facility] ([facility]) [address] [place] [address] GFR/1.73 sq M.predicted MDRD (S/P/Bld) [Vol rate/Area] mL/min/{1.73_m2} Normal >60 [facility] Comment on above: Result Comment: Calc ulations of estimated GFR are performed using the 2020 CKD-EPI Study Refit equation without the race variable for the IDMS-Traceable creatinine methods. https://jasn.asnjournals.org/content/early//ASN.71164 69865 Performed By: #### 3 4529-8 #### JACQUI Hayes ([id number]) [facility] ([facility]) [address] [place] [address] 75053 Glucose [Mass/Vol] 131 mg/dL High 74-99 [facility] Comment on above: Performed By: #### 3 4529-8 #### JACQUI Hayes ([id number]) [facility] ([facility]) [id number] [place] [address] 41967 Potassium [Moles/Vol] 4.1 mmol/L Normal 3.5-5.3 [facility] Comment on above: Performed By: #### 3 4529-8 #### JACQUI Hayes ([id number]) [facility] ([facility]) [address] [place] [address] 20944 Protein [Mass/Vol] 5.7 g/dL Low 6.4-8.2 [facility] Comment on above: Performed By: #### 3 4529-8 #### JACQUI Hayes ([id number]) [facility] ([facility]) [id number] [place] [address] 44487 Sodium [Moles/Vol] 127 mmol/L Low 136-145 [facility] Comment on above: Performed By: #### 3 4529-8 #### JACQUI Hayes ([id number]) [facility] ([facility]) [address] [place] [address] 22173 Urea nitrogen [Mass/Vol] 16 mg/dL Normal 6- [facility] Comment on above: Performed By: #### 3 4529-8 #### JACQUI Hayes ([id number]) [facility] ([facility]) [address] [place], [place] [address] Heparin.unfractionatedon Heparin unfractionated Chromogenic method Qn (PPP) 0.4 IU/mL Normal See Comment Below for Therapeutic Ranges [facility] Comment on above: Order Comment: The A PTT is no longer used for monitoring Unfractionated Heparin Therapy. For monitoring Heparin Therapy, use the Heparin Assay. Performed By: #### 3 4529-8 #### JACQUI Hayes ([id number]) [facility] ([facility]) [address] [place] [address] Heparin unfractionated Chromogenic method Qn (PPP) 0.5 IU/mL Normal See Comment Below for Therapeutic Ranges [facility] Comment on above: Order Comment: The A PTT is no longer used for monitoring Unfractionated Heparin Therapy. For monitoring Heparin Therapy, use the Heparin Assay. Performed By: #### 3 4529-8 #### JACQUI Hayes ([id number]) [facility] ([facility]) [address] [place], [place] [address] Heparin unfractionated Chromogenic method Qn (PPP) 0.2 IU/mL Normal See Comment Below for Therapeutic Ranges [facility] Comment on above: Order Comment: The t herapeutic reference range for UFH may be either 0.3-0.6 IU/mL or 0.3-0.7 IU/mL based on the clinical setting for anticoagulant therapy and the associated nomogram used. For Heparin dosing guidelines based on clinical scenario and Heparin Assay results, please refer to local Pharmacy and the [facility] Guidelines for Anticoagulation Therapy available on the [facility] intranet at: [email or web address] Performed By: #### 5 7021-8 #### JACQUI Hayes ([id number]) [facility] ([facility]) [address] [place] [address] 32154 Magnesiumon 06-10-2023 Magnesium [Mass/Vol] 1.80 mg/dL Normal 1.60-2.40 [facility] Comment on above: Performed By: #### 3 4529-8 #### JACQUI Hayes ([id number]) [facility] ([facility]) [id number] [place] [address] 15594 Troponin I.cardiac panelon 1 Tropinin I.cardiac panel High sensitivity method 8 ng/L Normal 0-34 [facility] Comment on above: Order Comment: The A PTT is no longer used for monitoring Unfractionated Heparin Therapy. For monitoring Heparin Therapy, use the Heparin Assay. Performed By: #### 3 4529-8 #### JACQUI Hayes ([id number]) [facility] ([facility]) [address] [place] [address] 20111 XR CHEST 1 VIEWon 06-10-2023 XR CHEST 1 VIEW Interpreted By: El Hooper, STUDY: XR CHEST 1 VIEW; 06/10/2023 5:05 pm INDICATION: Signs/Symptoms:tachycardi a and wheezing. COMPARISON: 06/08/2023 ACCESSION NUMBER(S): [id number] ORDERING CLINICIAN: EBONI DEL CID FINDINGS: Upright portable chest. Radiopaque monitoring device is again seen at the distal right thoracic spine level. CARDIOMEDIASTINAL SILHOUETTE: Cardiomediastinal silhouette is enlarged and somewhat globular in appearance which could be related to pericardial effusion. LUNGS: Lungs are moderately expanded there is increased central pulmonary vascularity and bibasilar subsegmental atelectasis. There is calcification of the aortic arch with out significant ectasia. There is calcifications in the left upper lung field x2 and at the left hilar level which are stable findings. There is blunting of left costophrenic angle there is suspicion of the left pleural effusion. ABDOMEN: No remarkable upper abdominal findings. BONES: No acute osseous changes. IMPRESSION: 1. Similar findings on previous exam. Cardiomegaly, interstitial edema and bibasilar atelectatic changes. Suspect left-sided pleural effusion. MACRO: None Signed by: El Tyler 06/11/2023 12:20 PM Dictation workstation: [id number] [facility] XR FOOT LEFT 1-2 VIEWSon XR FOOT LEFT 1-2 VIEWS Interpreted By: Krzysztof Bean, STUDY: XR FOOT LEFT 1-2 VIEWS; ; 06/10/2023 11:56 am INDICATION: Signs/Symptoms:fall. COMPARISON: None. ACCESSION NUMBER(S): [id number] ORDERING CLINICIAN: EBONI DEL CID FINDINGS: Three views of the left foot were provided. There is diffuse demineralization of the bones, limiting assessment for acute fracture. No acute fracture or malalignment. 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 IMPRESSION: No acute osseous abnormality of the left foot. MACRO: None Signed by: Krzysztof Escalera 06/10/2023 1:31 PM Dictation workstation: [id number] [facility] Bacteria identifiedon 2022 Bacteria identified Cx Nom (Bld) Test: Blood Culture Specimen Source: Peripheral Venipuncture Specimen Type: Blood culture Specimen Date: 06/09/2023 6:01 AM Result Date: 06/13/2023 10:01 AM Result Status: Final result Abnormal: No Resulting Lab: [facility] [id number] [place] [address] CULTURE No growth at 4 days - FINAL REPORT Normal [facility] Comment on above: Performed By: #### 5 7021-8 #### JACQUI Hayes ([id number]) [facility] ([facility]) [address] [place] [address] Heparin.unfractionatedon Heparin unfractionated Chromogenic method Qn (PPP) 0.4 IU/mL Normal See Comment Below for Therapeutic Ranges [facility] Comment on above: Order Comment: The t herapeutic reference range for UFH may be either 0.3-0.6 IU/mL or 0.3-0.7 IU/mL based on the clinical setting for anticoagulant therapy and the associated nomogram used. For Heparin dosing guidelines based on clinical scenario and Heparin Assay results, please refer to local Pharmacy and the [facility] Guidelines for Anticoagulation Therapy available on the [facility] intranet at: [email or web address]_[email or web address] Performed By: #### 5 7021-8 #### JACQUI Hayes ([id number]) [facility] ([facility]) [address] [place] [address] Heparin unfractionated Chromogenic method Qn (PPP) 0.6 IU/mL Normal See Comment Below for Therapeutic Ranges [facility] Comment on above: Order Comment: Obtai n 4 hours after initiation of heparin infusion. Nursing to release order. The therapeutic reference range for UFH may be either 0.3-0.6 IU/mL or 0.3-0.7 IU/mL based on the clinical setting for anticoagulant therapy and the associated nomogram used. For Heparin dosing guidelines based on clinical scenario and Heparin Assay results, please refer to local Pharmacy and [facility] Guidelines for Anticoagulation Therapy available on the [facility] intranet at: [email or web address] [email or web address]_[email or web address] Performed By: #### 3 274-8 #### JACQUI Hayes ([id number]) [facility] ([facility]) [address] [place] [address] RESPIRATORY VIRAL PANELon ADENOVIRUS RVP, VIRC Not detected Normal Not Detected [facility] Comment on above: Result Comment: Dete cts Serotypes B and E. Detection of Serotype C may be limited. If Adenovirus infection is suspected and a Not Detected result is returned the sample should be re-tested for adenovirus using an independent method (e.g. [employer] Viracor Adenovirus Quantitative Real-time PCR test). Performed By: #### 2 524-7 #### JACQUI Hyaes ([id number]) [facility] ([facility]) [id number] [place] [address] 33880 ENTEROVIRUS/RHINOVIRUS RVP, VIRC Not detected Normal Not Detected [facility] Comment on above: Performed By: #### 2 524-7 #### JACQUI STYLES L ([id number]) [facility] ([facility]) [address] [place] [address] 05632 HUMAN BOCAVIRUS RVP, VIRC Not detected Normal Not Detected [facility] Comment on above: Performed By: #### 2 524-7 #### JACQUI STYLES L ([id number]) [facility] ([facility]) [address] [place] [address] 37424 INFLUENZA A , VIRC Not detected Normal Not Detected Un [facility] Comment on above: Performed By: #### 2 524-7 #### JACQUI Hayes ([id number]) [facility] ([facility]) [address] [place] [address] 47174 INFLUENZA A H2P9-17 , VIRC Not detected Normal Not Detected [facility] Comment on above: Performed By: #### 2 524-7 #### JACQUI STYLES L ([id number]) [facility] ([facility]) [address] [place] [address] 48113 INFLUENZA B PCR, VIRC Not detected Normal Not Detected [facility] Comment on above: Performed By: #### 2 524-7 #### JACQUI STYLES L ([id number]) [facility] ([facility]) [address] [place] [address] 63159 METAPNEUMOVIRUS , VIRC Not detected Normal Not Detecte d [facility] Comment on above: Performed By: #### 2 524-7 #### JACQUI STYLES L ([id number]) [facility] ([facility]) [address] [place] [address] 21470 PARAINFLUENZA PCR, VIRC Not detected Normal Not Detected [facility] Comment on above: Performed By: #### 2 524-7 #### JACQUI STYLES L ([id number]) [facility] ([facility]) [address] [place], [place] [address] RSV PCR, RVP, VIRC Not detected Normal Not Detected Un [facility] Comment on above: Result Comment: The Respiratory Syncytial Viral assay detects both types A and B, however it does not distinguish between the two. Target Enriched Multiplex Polymerase Chain Reaction (TEM-PCR) allows for the detection of multiple pathogens out of a single reaction. This test was developed and its performance characteristics determined by [employer]. It has not been cleared or approved by the U.S. Food and Drug Administration. Results should be used in conjunction with clinical findings, and should not form the sole basis for a diagnosis or treatment decision. TEM-PCR is a licensed technology of [employer]. Testing Performed at: [facility] [address] [place] [address], [address] [place] [address] Manager Personal: Silviano Araujo, PhD NORMA (ABB) CLIA # [id number] FLAG Interpretation: A = Abnormal, H = High, L = Low Performed By: #### 2 524-7 #### JACQUI Hayes ([id number]) [facility] ([facility]) [address] [place], [place] [address] SARS-CoV-2 (COVID-19) RNA ROBY+probe Ql (Unsp spec) Not detected Normal Not Detected [facility] Comment on above: Result Comment: This test does NOT assay for the novel 2019 Coronavirus out of [place]. This test detects the respiratory Coronaviruses: types 229E, OC43, NL63, and HKU1. Performed By: #### 2 524-7 #### JACQUI Hayes ([id number]) [facility] ([facility]) [address] [place] [address] 46997 Renal function 2000 panelon 06-09-2023 Albumin BCP dye [Mass/Vol] 3.1 g/dL Low 3.4-5.0 [facility] Comment on above: Performed By: #### 5 7021-8 #### JACQUI Hayes ([id number]) [facility] ([facility]) [address] [place] [address] 80340 Anion gap [Moles/Vol] 16 mmol/L Normal 10- [facility] Comment on above: Performed By: #### 5 7021-8 #### JACQUI STYLES L ([id number]) [facility] ([facility]) [address] [place] [address] Calcium [Mass/Vol] 8.4 mg/dL Low 8.6-10.6 [facility] Comment on above: Performed By: #### 5 7021-8 #### JAQCUI DOWNEYMOTZER L ([id number]) [facility] ([facility]) [address] [place] [address] Chloride [Moles/Vol] 93 mmol/L Low 98-107 [facility] Comment on above: Performed By: #### 5 7021-8 #### JACQUI DOWNEYMOCELESTE L ([id number]) [facility] ([facility]) [id number] [place] [address] 65853 CO2 [Moles/Vol] 25 mmol/L Normal 21-32 [facility] Comment on above: Performed By: #### 5 7021-8 #### JACQUI STYLES L ([id number]) [facility] ([facility]) [address] [place] [address] Creatinine [Mass/Vol] 0.41 mg/dL Low 0.50-1.05 [facility] Comment on above: Performed By: #### 5 7021-8 #### JACQUI STYLES L ([id number]) [facility] ([facility]) [id number] [place] [address] 54543 GFR/1.73 sq M.predicted MDRD (S/P/Bld) [Vol rate/Area] mL/min/{1.73_m2} Normal >60 [facility] Comment on above: Result Comment: Calc ulations of estimated GFR are performed using the 2020 CKD-EPI Study Refit equation without the race variable for the IDMS-Traceable creatinine methods. https://jasn.asnjournals.org/content//ASN.95733 86504 Performed By: #### 5 7021-8 #### JACQUI Hayes ([id number]) [facility] ([facility]) [id number] [place] [address] 52662 Glucose [Mass/Vol] 138 mg/dL High 74-99 [facility] Comment on above: Performed By: #### 5 7021-8 #### JACQUI Hayes ([id number]) [facility] ([facility]) [address] [place] [address] 41179 Phosphate [Mass/Vol] 3.1 mg/dL Normal 2.5-4.9 [facility] Comment on above: Result Comment: The performance characteristics of phosphorus testing in heparinized plasma have been validated by the individual laboratory site where testing is performed. Testing on heparinized plasma is not approved by the FDA; however, such approval is not necessary. Performed By: #### 5 7021-8 #### JACQUI Hayes ([id number]) [facility] ([facility]) [address] [place] [address] 68121 Potassium [Moles/Vol] 3.7 mmol/L Normal 3.5-5.3 [facility] Comment on above: Performed By: #### 5 7021-8 #### JACQUI Hayes ([id number]) [facility] ([facility]) [address] [place] [address] 36612 Sodium [Moles/Vol] 130 mmol/L Low 136-145 [facility] Comment on above: Performed By: #### 5 7021-8 #### JACQUI Hayes ([id number]) [facility] ([facility]) [address] [place] [address] 66477 Urea nitrogen [Mass/Vol] 14 mg/dL Normal 6-23 [facility] Comment on above: Performed By: #### 5 7021-8 #### JACQUI Hayes ([id number]) [facility] ([facility]) [address] [place] [address] 70607 SARS coronavirus 2 RNAon SARS-CoV-2 (COVID-19) RNA ROBY+probe Ql (Resp) Not detected Normal Not Detected [facility] Comment on above: Order Comment: This assay has received FDA Emergency Use Authorization (EUA) and is only authorized for the duration of time that circumstances exist to justify the authorization of the emergency use of in vitro diagnostic tests for the detection of SARS-CoV-2 virus and/or diagnosis of COVID-19 infection under section 564(b)(1) of the Act, 21 U.S.C. 360bbb-3(b)(1). This assay is an in vitro diagnostic nucleic acid amplification test for the qualitative detection of SARS-CoV-2 from nasopharyngeal specimens and has been validated for use at [facility]. Negative results do not preclude COVID-19 infections and should not be used as the sole basis for diagnosis, treatment, or other management decisions. Performed By: #### 9 4500-6 #### JACQUI Hayes ([id number]) [facility] ([facility]) [address] [place] [address] Staphylococcus aureus.methic illin resistant isolateon 06-09-2023 MRSA isol Org specific cx Ql (Nose) Test: Staphylococcus aureus/MRSA colonization, Culture Specimen Source: Anterior Nares Specimen Type: Swab Specimen Date: 06/09/2023 11:22 AM Result Date: 06/11/2023 11:52 AM Result Status: Final result Abnormal: No Resulting Lab: [facility] [address] [place] [address] CULTURE No Staphylococcus aureus isolated Normal [facility] Comment on above: Performed By: #### 3 4529-8 #### JACQUI Hayes ([id number]) [facility] ([facility]) [address] [place] [address] TRANSTHORACIC ECHO (TTE) COM PLETEon 06-09-2023 TRANSTHORACIC ECHO (TTE) [facility], [address] [place] [address] and TRANSTHORACIC ECHOCARDIOGRAM REPORT Patient Name: MODESTA CLEMENT [place] Physician: [id number] Star Garnica MD Study Date: 06/09/2023 Ordering Provider: [id number] CLARI JEFFERS MRN/PID: [id number] Fellow: [id number] Emily Gil MD PhD Nurse: Date of /Age: 1 1940 / 82 years Physically Impaired Teacher: Yamileth HANLEY Gender: F Additional Staff: Height: 160.00 cm Admit Date: 06/08/2023 Weight: 74.39 kg Admission Status: Inpatient - Routine BSA: 1.78 m2 Department Location: [facility] Non Invasive Blood Pressure: 156 /90 mmHg Study Type: TRANSTHORACIC ECHO (TTE) COMPLETE Diagnosis/ICD: Other pericardial effusion (noninflammatory)-I31.39 Indication: Pericardial effusion CPT Code: Echo Complete w Full Doppler-03286 Patient History: Pertinent History: Paricardial effusion. Study Detail: The following Echo studies were performed: 2D, M-Mode, Doppler and color flow. Technically challenging study due to prominent lung artifact and patient lying in supine position. Definity used as a contrast agent for endocardial border definition. Total contrast used for this procedure was 3 mL via IV push. PHYSICIAN INTERPRETATION: Left Ventricle: The left ventricular systolic function is normal, with an estimated ejection fraction of 65%. There are no regional wall motion abnormalities. The left ventricular cavity size is normal. The left ventricular septal wall thickness is mildly increased. Left ventricular diastolic filling was indeterminate. Left Atrium: The left atrium is mildly dilated. Right Ventricle: The right ventricle is normal in size. There is normal right ventricular global systolic function. Right Atrium: The right atrium is normal in size. There is a device visualized in the right atrium. Aortic Valve: The aortic valve is probably trileaflet. There is trivial aortic valve regurgitation. The peak instantaneous gradient of the aortic valve is 8.8 mmHg. Mitral Valve: The mitral valve is normal in structure. There is mild to moderate mitral annular calcification. There is trace mitral valve regurgitation. Tricuspid Valve: The tricuspid valve is structurally normal. There is trace to mild tricuspid regurgitation. Pulmonic Valve: The pulmonic valve is not well visualized. There is trace pulmonic valve regurgitation. Pericardium: There is a small to moderate pericardial effusion. There is mild right atrial diastolic collapse and are mitral valve velocity respiratory variations. Pleural: There is left pleural effusion. Aorta: The aortic root is normal. The Ao Sinus is 3.30 cm. The Asc Ao is 3.50 cm. There is upper limits of normal dilatation of the ascending aorta. There is no dilatation of the aortic root. Systemic Veins: The inferior vena cava appears to be of upper normal size. CONCLUSIONS: 1. Left ventricular systolic function is normal with a 65% estimated ejection fraction. 2. There is a small to moderate pericardial effusion with some borderline mild tamponade features. QUANTITATIVE DATA SUMMARY: 2D MEASUREMENTS: Normal Ranges: Ao Root d: 3.30 cm (2.0-3.7cm) LAs: 3.40 cm (2.7-4.0cm) IVSd: 1.30 cm (0.6-1.1cm) LVPWd: 1.10 cm (0.6-1.1cm) LVIDd: 3.20 cm (3.9-5.9cm) LVIDs: 2.60 cm LV Mass Index: 67.2 g/m2 LV % FS 18.8 % LA VOLUME: Normal Ranges: LA Vol A4C: 66.3 ml (22+/-6mL/m2) LA Vol A2C: 64.3 ml LA Vol BP: 65.3 ml LA Vol Index A4C: 37.3ml/m2 LA Vol Index A2C: 36.2 ml/m2 LA Vol Index BP: 36.7 ml/m2 LA Area A4C: 20.9 cm2 LA Area A2C: 20.6 cm2 LA Major [place] A4C: 5.6 cm LA Major [place] A2C: 5.6 cm RA VOLUME BY A/L METHOD: Normal Ranges: RA Vol A4C: 27.2 ml (8.3-19.5ml) RA Vol Index A4C: 15.3 ml/m2 RA Area A4C: 12.4 cm2 RA Major [place] A4C: 4.8 cm AORTA MEASUREMENTS: Normal Ranges: Ao Sinus, d: 3.30 cm (2.1-3.5cm) Asc Ao, d: 3.50 cm (2.1-3.4cm) LV SYSTOLIC FUNCTION BY 2D PLANIMETRY (MOD): Normal Ranges: EF-A4C View: 70.0 % (>=55%) EF-A2C View: 68.6 % EF-Biplane: 67.6 % LV DIASTOLIC FUNCTION: Normal Ranges: MV Peak E: 0.44 m/s (0.7-1.2 m/s) MV Peak A: 1.03 m/s (0.42-0.7 m/s) E/A Ratio: 0.43 (1.0-2.2) MV e' 0.06 m/s (>8.0) MV lateral e' 0.07 m/s MV medial e' 0.08 m/s E/e' Ratio: 6.78 (<8.0) PulmV Sys James: 55.60 cm/s PulmV Moe James: 43.90 cm/s PulmV S/D James: 1.30 PulmV A Revs James: 40.70 cm/s PulmV A Revs Dur: 100.00 msec MITRAL VALVE: Normal Ranges: MV DT: 136 msec (150-240msec) AORTIC VALVE: Normal Ranges: AoV Vmax: 1.48 m/s (<=1.7m/s) AoV Peak P.8 mmHg (<20mmHg) LVOT Max James: 1.12 m/s (<=1.1m/s) LVOT VTI: 17.10 cm LVOT Diameter: 1.60 cm (1.8-2.4cm) AoV Area,Vmax: 1.52 cm2 (2.5-4.5cm2) RIGHT VENTRICLE: RV Basal 3.80 cm RV Mid 1.90 cm RV Major 5.1 cm TAPSE: 16.5 mm RV s' 0.20 m/s TRICUSPID VALVE/RVSP: Normal Ranges: IVC Diam: 2.00 cm PULMONIC VALVE (more content not included)... Normal [facility] Absolute lymphocyte countOrd ered By: Colton Mayfield on 06-08-2023 Lymphocytes Auto (Unsp spec) [#/Vol] 1.53 10*3/uL 0.83-4.51 [facility] Basophil percentageOrdered B y: Colton Mayfield on 06-08-2023 Basophils/100 WBC (Bld) 0.5 % 0-1 [facility] Chloride [Moles/Vol] 97 mmol/L 98-107 [facility] Eosinophils/100 WBC (Bld) 0.1 % 0-5 [facility] Glucose [Mass/Vol] 146 mg/dL 74-106 [facility] Comment on above: Fasting Glucose resu lt greater than or equal to 126 mg/dL suggests DIABETES MELLITUS per A.D.A. criteria. Neutrophils (Bld) [#/Vol] 11.0 10*3/uL 2.0-7.7 [facility] Neutrophils/100 WBC (Bld) 77.4 % 47-70 [facility] Potassium [Moles/Vol] 4.0 mmol/L 3.5-5.1 [facility] Sodium [Moles/Vol] 128 mmol/L 136-[address] [facility] WBC (Bld) [#/Vol] 14.2 10*3/uL 4.4-11.0 [facility] Blood erythrocytes count (nu mber/volume)Ordered By: Colton Mayfield on 06-08-2023 RBC (Bld) [#/Vol] 3.12 10*6/uL 4.2-5.4 [facility] Blood hemoglobin measurement (mass/volume)Ordered By: Colton Mayfield on 06-08-2023 Hemoglobin (Bld) [Mass/Vol] 8.7 g/dL 12.0-15.0 [facility] Blood lymphocytes/100 leukoc ytesOrdered By: Colton Mayfield on 06-08-2023 Lymphocytes/100 WBC (Bld) 10.8 % 19-41 [facility] Blood monocytes/100 leukocyt esOrdered By: Colton Mayfield on 06-08-2023 Monocytes/100 WBC (Bld) 10.5 % 0-10 [facility] Blood platelet mean volumeOr dered By: Colton Mayfield on 06-08-2023 Platelet mean volume (Bld) [Entitic vol] 8.6 fL 6.2-12.0 [facility] CBC W Auto Differential pane l (Bld)on 06-08-2023 Basophils (Bld) [#/Vol] 0.06 x10*3/uL Normal 0.00-0.10 [facility] Comment on above: Performed By: #### 5 7021-8 #### JACQUI Hayes ([id number]) [facility] ([facility]) [address] [place] [address] Basophils/100 WBC (Bld) 0.3 % Normal 0.0-2.0 [facility] Comment on above: Performed By: #### 5 7021-8 #### JACQUI Hayes ([id number]) [facility] ([facility]) [address] [place] [address] 59879 Eosinophils (Bld) [#/Vol] 0.05 x10*3/uL Normal 0.00-0.40 [facility] Comment on above: Performed By: #### 5 7021-8 #### JACQUI Hayes ([id number]) [facility] ([facility]) [address] [place] [address] 61941 Eosinophils/100 WBC (Bld) 0.3 % Normal 0.0-6.0 [facility] Comment on above: Performed By: #### 5 7021-8 #### JACQUI Hayes ([id number]) [facility] ([facility]) [address] [place] [address] 39604 Erythrocyte distribution width (RBC) [Ratio] 13.2 % Normal 11.5-14.5 [facility] Comment on above: Performed By: #### 5 7021-8 #### JACQUI Hayes ([id number]) [facility] ([facility]) [address] [place] [address] 73490 Hematocrit (Bld) [Volume fraction] 26.8 % Low 36.0-46.0 [facility] Comment on above: Performed By: #### 5 7021-8 #### JACQUI Hayes ([id number]) [facility] ([facility]) [address] [place] [address] 11773 Hemoglobin (Bld) [Mass/Vol] 9.0 g/dL Low 12.0-16.0 [facility] Comment on above: Performed By: #### 5 7021-8 #### JACQUI Hayes ([id number]) [facility] ([facility]) [address] [place] [address] 47732 Immature granulocytes (Bld) [#/Vol] 0.14 x10*3/uL Normal 0.00-0.50 [facility] Comment on above: Performed By: #### 5 7021-8 #### JACQUI Hayes ([id number]) [facility] ([facility]) [address] [place] [address] 70204 Immature granulocytes/100 WBC (Bld) 0.8 % Normal 0.0-0.9 [facility] Comment on above: Result Comment: Lizzie ture Granulocyte Count (IG) includes promyelocytes, myelocytes and metamyelocytes but does not include bands. Percent differential counts (%) should be interpreted in the context of the absolute cell counts (cells/UL). Performed By: #### 5 7021-8 #### JACQUI Hayes ([id number]) [facility] ([facility]) [address] [place] [address] 61381 Lymphocytes (Bld) [#/Vol] 2.48 x10*3/uL Normal 0.80-3.00 [facility] Comment on above: Performed By: #### 5 7021-8 #### JACQUI Hayes ([id number]) [facility] ([facility]) [address] [place] [address] 96316 Lymphocytes/100 WBC (Bld) 14.3 % Normal 13.0-44.0 [facility] Comment on above: Performed By: #### 5 7021-8 #### JACQUI Hayes ([id number]) [facility] ([facility]) [address] [place] [address] 82223 MCH (RBC) [Entitic mass] 27.9 pg Normal 26.0-34.0 [facility] Comment on above: Performed By: #### 5 7021-8 #### JACQUI Hayes ([id number]) [facility] ([facility]) [address] [place] [address] 73167 MCHC (RBC) [Mass/Vol] 33.6 g/dL Normal 32.0-36.0 [facility] Comment on above: Performed By: #### 5 7021-8 #### JACQUI Hayes ([id number]) [facility] ([facility]) [id number] [place] [address] 75957 MCV (RBC) [Entitic vol] 83 fL Normal 80-100 [facility] Comment on above: Performed By: #### 5 7021-8 #### JACQUI Hayes ([id number]) [facility] ([facility]) [address] [place] [address] 60093 Monocytes (Bld) [#/Vol] 1.90 x10*3/uL High 0.05-0.80 [facility] Comment on above: Performed By: #### 5 7021-8 #### JACQUI Hayes ([id number]) [facility] ([facility]) [address] [place] [address] 13547 Monocytes/100 WBC (Bld) 10.9 % Normal 2.0-10.0 [facility] Comment on above: Performed By: #### 5 7021-8 #### JACQUI Hayes ([id number]) [facility] ([facility]) [address] [place] [address] 69512 Neutrophils (Bld) [#/Vol] 12.75 x10*3/uL High 1.60-5.50 [facility] Comment on above: Result Comment: Perc ent differential counts (%) should be interpreted in the context of the absolute cell counts (cells/uL). Performed By: #### 5 7021-8 #### JACQUI Hayes ([id number]) [facility] ([facility]) [address] [place] [address] 25167 Neutrophils/100 WBC (Bld) 73.4 % Normal 40.0-80.0 [facility] Comment on above: Performed By: #### 5 7021-8 #### JACQUI Hayes ([id number]) [facility] ([facility]) [address] [place] [address] 74619 Nucleated RBC/100 WBC (Bld) [Ratio] 0.0 /100 WBCs Normal 0.0-0.0 [facility] Comment on above: Performed By: #### 5 7021-8 #### JACQUI Hayes ([id number]) [facility] ([facility]) [address] [place] [address] 74307 Platelet mean volume (Bld) [Entitic vol] 8.9 fL Normal 7.5-11.5 [facility] Comment on above: Performed By: #### 5 7021-8 #### JACQUI Hayes ([id number]) [facility] ([facility]) [id number] [place] [address] 93914 Platelets (Bld) [#/Vol] 650 x10*3/uL High 150-450 [facility] Comment on above: Performed By: #### 5 7021-8 #### JACQUI Hayes ([id number]) [facility] ([facility]) [id number] [place] [address] 63552 RBC (Bld) [#/Vol] 3.23 x10*6/uL Low 4.00-5.20 [facility] Comment on above: Performed By: #### 5 7021-8 #### JACQUI Hayes ([id number]) [facility] ([facility]) [address] [place] [address] 29853 WBC (Bld) [#/Vol] 17.4 x10*3/uL High 4.4-11.3 [facility] Comment on above: Performed By: #### 5 7021-8 #### JACQUI Hayes ([id number]) [facility] ([facility]) [address] [place] [address] 62214 Comprehensive metabolic 2000 panelon 06-08-2023 Albumin BCP dye [Mass/Vol] 3.3 g/dL Low 3.4-5.0 [facility] Comment on above: Performed By: #### 2 4323-8 #### JACQUI Hayes ([id number]) [facility] ([facility]) [id number] [place] [address] 97594 ALP [Catalytic activity/Vol] 149 U/L High 33-136 [facility] Comment on above: Performed By: #### 2 4323-8 #### JACQUI Hayes ([id number]) [facility] ([facility]) [id number] [place] [address] 12934 ALT With P-5'-P [Catalytic activity/Vol] 50 U/L High 7-45 [facility] Comment on above: Result Comment: Chelsy ents treated with Sulfasalazine may generate falsely decreased results for ALT. Performed By: #### 2 4323-8 #### JACQUI Hayes ([id number]) [facility] ([facility]) [address] [place] [address] Anion gap [Moles/Vol] 17 mmol/L Normal 10-20 [facility] Comment on above: Performed By: #### 2 4323-8 #### JACQUI Hayes ([id number]) [facility] ([facility]) [address] [place] [address] AST With P-5'-P [Catalytic activity/Vol] 27 U/L Normal 9-39 [facility] Comment on above: Performed By: #### 2 4323-8 #### JACQUI Hayes ([id number]) [facility] ([facility]) [address] [place] [address] Bilirubin [Mass/Vol] 0.6 mg/dL Normal 0.0-1.2 [facility] Comment on above: Performed By: #### 2 4323-8 #### JACQUI Hayes ([id number]) [facility] ([facility]) [id number] [place] [address] 60391 Calcium [Mass/Vol] 8.8 mg/dL Normal 8.6-10.6 [facility] Comment on above: Performed By: #### 2 4323-8 #### JACQUI Hayes ([id number]) [facility] ([facility]) [id number] [place] [address] 20894 Chloride [Moles/Vol] 92 mmol/L Low 98-107 [facility] Comment on above: Performed By: #### 2 4323-8 #### JACQUI Hayes ([id number]) [facility] ([facility]) [id number] [place] [address] 14589 CO2 [Moles/Vol] 24 mmol/L Normal 21-32 [facility] Comment on above: Performed By: #### 2 4323-8 #### JACQUI Hayes ([id number]) [facility] ([facility]) [address] [place] [address] Creatinine [Mass/Vol] 0.50 mg/dL Normal 0.50-1.05 [facility] Comment on above: Performed By: #### 2 4323-8 #### JACQUI STYLES L ([id number]) [facility] ([facility]) [id number] [place] [address] 15620 GFR/1.73 sq M.predicted MDRD (S/P/Bld) [Vol rate/Area] mL/min/{1.73_m2} Normal >60 [facility] Comment on above: Result Comment: Calc ulations of estimated GFR are performed using the 2020 CKD-EPI Study Refit equation without the race variable for the IDMS-Traceable creatinine methods. https://jasn.asnjournals.org/content//ASN.42585 19951 Performed By: #### 2 4323-8 #### JACQUI STYLES L ([id number]) [facility] ([facility]) [id number] [place] [address] 83173 Glucose [Mass/Vol] 126 mg/dL High 74-99 [facility] Comment on above: Performed By: #### 2 4323-8 #### JACQUI STYLES L ([id number]) [facility] ([facility]) [address] [place] [address] Potassium [Moles/Vol] 4.7 mmol/L Normal 3.5-5.3 [facility] Comment on above: Performed By: #### 2 4323-8 #### JACQUI STYLES L ([id number]) [facility] ([facility]) [id number] [place] [address] 13827 Protein [Mass/Vol] 6.7 g/dL Normal 6.4-8.2 [facility] Comment on above: Performed By: #### 2 4323-8 #### JACQUI STYLES L ([id number]) [facility] ([facility]) [address] [place] [address] Sodium [Moles/Vol] 128 mmol/L Low 136-145 [facility] Comment on above: Performed By: #### 2 4323-8 #### JACQUI Hayes ([id number]) [facility] ([facility]) [address] [place] [address] Urea nitrogen [Mass/Vol] 18 mg/dL Normal 6- [facility] Comment on above: Performed By: #### 2 4323-8 #### JACQUI Hayes ([id number]) [facility] ([facility]) [id number] [place] [address] 82920 Culture, urineOrdered By: Aissatou Mayfield on 06-08-2023 Bacteria identified Cx Nom (U) Culture exhibits no growth. [facility] Bacteria identified Cx Nom (U) Culture exhibits no growth. [facility] Determination of erythrocyte mean corpuscular volume (MCV)Ordered By: Colton Mayfield on 06-08-2023 MCV (RBC) [Entitic vol] 85.9 fL 81-99 [facility] Gas and Carbon monoxide and Electrolytes panel (BldA)on 06-08-2023 Anion gap 4 (BldA) [Moles/Vol] 8 mmo/L Low - [facility] Comment on above: Performed By: #### 9 3685-6 #### JACQUI Hayes ([id number]) [facility] ([facility]) [address] [place] [address] Base excess Calc (Bld) [Moles/Vol] 2.6 mmol/L Normal -2.0-3.0 [facility] Comment on above: Performed By: #### 9 3685-6 #### JACQUI Hayes ([id number]) [facility] ([facility]) [id number] [place] [address] 14157 Calcium.ionized (BldA) [Moles/Vol] 1.14 mmol/L Normal 1.10-1.33 [facility] Comment on above: Performed By: #### 9 3685-6 #### JACQUI Hayes ([id number]) [facility] ([facility]) [address] [place] [address] Chloride (BldA) [Moles/Vol] 96 mmol/L Low 98-107 [facility] Comment on above: Performed By: #### 9 3685-6 #### JACQUI Hayes ([id number]) [facility] ([facility]) [address] [place] [address] CO2 (Bld) [Partial pressure] 31 mm Hg Low 38-42 [facility] Comment on above: Performed By: #### 9 3685-6 #### JACQUI Hayes ([id number]) [facility] ([facility]) [id number] [place] [id number] Glucose [Mass/Vol] 135 mg/dL High 74-99 [facility] Comment on above: Performed By: #### 9 3685-6 #### JACQUI Hayes ([id number]) [facility] [facility] [id number] [place] [address] 94803 HCO3 (Bld) [Moles/Vol] 25.3 mmol/L Normal 22.0-26.0 [facility] Comment on above: Performed By: #### 9 3685-6 #### JACQUI Hayes ([id number]) [facility] ([facility]) [id number] [place] [address] 85829 Hematocrit Est (Bld) [Volume fraction] 28.0 % Low 36.0-46.0 [facility] Comment on above: Performed By: #### 9 3685-6 #### JACQUI Hayes ([id number]) [facility] ([facility]) [id number] [place] [address] 50132 Hemoglobin (Bld) [Mass/Vol] 9.4 g/dL Low 12.0-16.0 [facility] Comment on above: Performed By: #### 9 3685-6 #### JACQUI Hayes ([id number]) [facility] ([facility]) [id number] [place] [address] 72491 Inhaled oxygen concentration 40 % Normal [facility] Comment on above: Performed By: #### 9 3685-6 #### JACQUI Hayes ([id number]) [facility] ([facility]) [address] [place] [address] 60958 Lactate (BldA) [Moles/Vol] 1.0 mmol/L Normal 0.4-2.0 [facility] Comment on above: Performed By: #### 9 3685-6 #### JACQUI Hayes ([id number]) [facility] ([facility]) [address] [place] [address] 78892 Oxygen (Bld) [Partial pressure] 77 mm Hg Low 85-95 [facility] Comment on above: Performed By: #### 9 3685-6 #### JACQUI Hayes ([id number]) [facility] ([facility]) [address] [place] [address] 11815 Oxyhemoglobin (BldA) [Mass fraction] 95.9 % Normal 94.0-98.0 [facility] Comment on above: Performed By: #### 9 4415-6 #### JACQUI Hayes ([id number]) [facility] ([facility]) [address] [place] [address] 64294 pH (Bld) 7.52 [pH] High 7.38-7.42 [facility] Comment on above: Performed By: #### 9 0205-6 #### JACQUI Hayes ([id number]) [facility] ([facility]) [address] [place] [address] 64693 Potassium (BldA) [Moles/Vol] 4.4 mmol/L Normal 3.5-5.3 [facility] Comment on above: Performed By: #### 9 0035-6 #### JACQUI Hayes ([id number]) [facility] ([facility]) [address] [place] [address] 17845 Sodium (BldA) [Moles/Vol] 125 mmol/L Low 136-145 [facility] Comment on above: Performed By: #### 9 6455-6 #### JACQUI Hayes ([id number]) [facility] ([facility]) [address] [place] [address] Hematocrit Auto (Bld) [Volum e fraction]Ordered By: Colton Mayfield on 06-08-2023 Hematocrit (Bld) [Volume fraction] 26.8 % 37-47 [facility] - Chemistry and C hemistry - challengeOrdered By: Colton Mayfield on 06-08-2023 CO2 [Moles/Vol] 25.0 mmol/L 21.0-32.0 [facility] Urea nitrogen/Creatinine [Mass ratio] 39.1 mg/mg 10-20 [facility] - Chemistry and C hemistry - challengeOrdered By: Sivan Martinez on 06-08-2023 Natriuretic peptide B (Bld) [Mass/Vol] 187.4 pg/mL 0-100 [facility] - Hematology and Cell countsOrdered By: Colton Mayfield on 06-08-2023 Erythrocyte distribution width (RBC) [Entitic vol] 42.4 fL 35.1-43.9 [facility] Erythrocyte distribution width (RBC) [Ratio] 13.5 % 11.6-14.6 [facility] Immature granulocytes/100 WBC (Bld) 0.700 % 0.0-0.9 [facility] Comment on above: IG% - Immature Granu locytes (promyelocytes, myelocytes and metamyelocytes) > 1% indicates that a LEFT SHIFT is Present. MCH (RBC) [Entitic mass] 27.9 pg 27.0-32.0 [facility] Nucleated RBC/100 WBC (Bld) [Ratio] 0 % 0-5 [facility] Lactateon 06-08-2023 Lactate [Moles/Vol] 1.3 mmol/L Normal 0.4-2.0 [facility] Comment on above: Order Comment: Venip uncture immediately after or during the administration of Metamizole may lead to falsely low results. Testing should be performed immediately prior to Metamizole dosing. Performed By: #### 2 524-7 #### JACQUI Hayes ([id number]) [facility] ([facility]) [address] [place] [address] Legionella sp Agon 3 Legionella sp Ag Ql (U) Negative Normal Negative [facility] Comment on above: Performed By: #### 5 7021-8 #### JACQUI Hayes ([id number]) [facility] ([facility]) [id number] [place], [place] [address]C Auto (RBC) [Mass/Vol]Or dered By: Colton Mayfield on 06-08-2023 MCHC (RBC) [Mass/Vol] 32.5 g/dL 32-36 [facility] Magnesiumon 06-08-2023 Magnesium [Mass/Vol] 2.04 mg/dL Normal 1.60-2.40 [facility] Comment on above: Performed By: #### 1 9123-9 #### JACQUI Hayes ([id number]) [facility] ([facility]) [address] [place] [address] Natriuretic peptide B [Mass/ Vol]on 06-08-2023 Natriuretic peptide B (Bld) [Mass/Vol] 308 pg/mL High 0-99 [facility] Comment on above: Order Comment: <100 pg/mL - Heart failure unlikely 100-299 pg/mL - Intermediate probability of acute heart failure exacerbation. Correlate with clinical context and patient history. >=300 pg/mL - Heart Failure likely. Correlate with clinical context and patient history. Biotin interference may cause falsely decreased results. Patients taking a Biotin dose of up to 5 mg/day should refrain from taking Biotin for 24 hours before sample collection. Providers may contact their local laboratory for further information. Performed By: #### 3 0934-4 #### JACQUI Hayes ([id number]) [facility] ([facility]) [id number] [place] [address] No Panel InformationOrdered By: Colton Mayfield on 06-08-2023 Streptococcus pneumoniae Antigen ([facility] Streptococcus pneumoniae Antigen ([facility] Estimated Creatinine Clearance Calc 35.26 ml/min [facility] Estimated GFR (MDRD) Amer 147 mL/min >60 [facility] Comment on above: GFR Calc Estimated GFR (MDRD) Non-Af Amer 122 mL/min >60 [facility] Comment on above: Non- GFR Calc Thyroid Stimulating Hormone (TSH) 5.56 uIU/mL 0.358-3.74 [facility] No Panel InformationOrdered By: Sivan Martinez on 06-08-2023 D-Dimer Quantitative (PE/DVT) 5.62 FEU/ug/m 0.27-0.49 [facility] Comment on above: D-Dimer ELEVATED (>0 .49): Additional studies and clinicalassessments are indicated to conclude diagnosis of:Deep Vein Thrombosis (DVT) or Pulmonary Embolism (PE)CRITICAL VALUE VERIFIED. CALLED TO [facility]06/08/23 1639 Yumiko Benoit.RESULTS READ BACK BY SAME . Troponin I High Sensitivity 10 pg/mL 3.0-54.0 [facility] Comment on above: Please Note: New Lala t Units and Gender Specific Reference Ranges. For more information see Policy Stat Procedure [place] High Sensitivity Troponin (TNIH) and attachments. PT and aPTT panel Coag (PPP) on 06-08-2023 aPTT Coag (PPP) [Time] 28 s Normal 27-38 [facility] Comment on above: Order Comment: The A PTT is no longer used for monitoring Unfractionated Heparin Therapy. For monitoring Heparin Therapy, use the Heparin Assay. Performed By: #### 3 4529-8 #### JACQUI Hayes ([id number]) [facility] ([facility]) [address] [place] [address] 10930 INR Coag (PPP) [Relative time] 1.3 High 0.9-1.1 [facility] Comment on above: Order Comment: The A PTT is no longer used for monitoring Unfractionated Heparin Therapy. For monitoring Heparin Therapy, use the Heparin Assay. Performed By: #### 3 4529-8 #### JACQUI Hayes ([id number]) [facility] ([facility]) [address] [place] [address] 40030 PT Coag (PPP) [Time] 14.6 s High 9.8-12.8 [facility] Comment on above: Order Comment: The A PTT is no longer used for monitoring Unfractionated Heparin Therapy. For monitoring Heparin Therapy, use the Heparin Assay. Performed By: #### 3 4529-8 #### JACQUI FALLONCELESTE Freddy ([id number]) [facility] ([facility]) [address] [place] [address] Platelets bldOrdered By: Dayami Mayfield on 06-08-2023 Platelets (Bld) [#/Vol] 549 10*3/uL 150-450 [facility] Respiratory pathogens detect ion panel by molecular detection methodOrdered By: Sivan Martinez on 06-08-2023 Respiratory pathogens DNA and RNA panel ROBY+probe (Resp) [facility] Respiratory pathogens DNA and RNA panel ROBY+probe (Resp) [facility] Serum or plasma calcium parag urement (mass/volume)Ordered By: Colton Mayfield on 06-08-2023 Calcium [Mass/Vol] 8.6 mg/dL 8.5-10.[address] [facility] Serum or plasma creatinine m easurement (mass/volume)Ordered By: Colton Mayfield on 06-08-2023 Creatinine [Mass/Vol] 0.51 mg/dL 0.55-1.02 [facility] Comment on above: The validity of the calculated GFR & GFRAA in patients over 70 years has not been determined. Clinical correlation is essential. Serum or plasma urea nitroge n measurement (mass/volume)Ordered By: Colton Mayfield on 06-08-2023 Urea nitrogen [Mass/Vol] 20 mg/dL 7-18 [facility] Serum procalcitonin measurem entOrdered By: Sivan Martinez on 06-08-2023 Procalcitonin [Mass/Vol] 0.09 ng/mL 0.00-0.09 [facility] Comment on above: A procalcitonin (PCT ) level above 2.0 ng/mL on the first day of ICU admission is associated with a high risk for progression to severe sepsis and/or septic shock. A PCT level below 0.5 ng/mL on the first day of ICU admission is associated with a low risk for progression to severe and/or septic shock. Note: Concentrations <0.5 ng/mL do not exclude an infection on account of localized infections (without systemic signs) which can be associated with such low concentrations, or a systemic infection in its initial stages (<6 hours). Furthermore, increased procalcitonin can occur without infection. PCT concentrations between 0.5 and 2.0 ng/mL should be interpreted taking into account the patient's history. It is recommended to retest PCT within 6-24 hours if any concentrations <2 ng/mL are obtained. Streptococcus pneumoniae Ago n 06-08-2023 S. pneumoniae Ag Ql (U) Positive Abnormal Negative [facility] Comment on above: Performed By: #### 5 7021-8 #### JACQUI Hayes ([id number]) [facility] ([facility]) [address] [place] [address] 23195 TRANSTHORACIC ECHO (TTE) [facility] ITEDon 06-08-2023 TRANSTHORACIC ECHO (TTE) [facility], [address] [place] [id number] and TRANSTHORACIC ECHOCARDIOGRAM REPORT Patient Name: MODESTA COOK Reading Physician: [id number] Star Garnica MD Study Date: 06/08/2023 Ordering Provider: [id number] CARR MRN/PID: [id number] Fellow: [id number] Carr MD Nurse: Date of /Age: 1 1940 / 82 years Physically Impaired Teacher: Griselda Carr MD Gender: F Additional Staff: BSA: m2 Study Type: TRANSTHORACIC ECHO (TTE) LIMITED Diagnosis/ICD: Other pericardial effusion (noninflammatory)-I31.39 Indication: Pericardial Effusion CPT Code: Echo Limited-83919; Doppler Limited-48791; Color Doppler-50313 Study Detail: The following Echo studies were performed: 2D, M-Mode, Doppler and color flow. PHYSICIAN INTERPRETATION: Left Ventricle: The left ventricular systolic function is normal, with an estimated ejection fraction of 65%. The patient is in atrial fibrillation which may influence the estimate of left ventricular function and transvalvular flows. The left ventricular cavity size is normal. Left ventricular diastolic filling was not assessed. Left Atrium: The left atrium is mildly dilated. Right Ventricle: The right ventricle is normal in size. There is normal right ventricular global systolic function. Right Atrium: The right atrium is upper limits of normal in size. Aortic Valve: The aortic valve is probably trileaflet. There is mild aortic valve cusp calcification. There is trivial aortic valve regurgitation. Mitral Valve: The mitral valve is minimally calcified. There is mild to moderate mitral annular calcification. There is trace mitral valve regurgitation. Tricuspid Valve: The tricuspid valve is structurally normal. There is trace to mild tricuspid regurgitation. Pulmonic Valve: The pulmonic valve is not well visualized. There is trace pulmonic valve regurgitation. Pericardium: There is a small to moderate pericardial effusion. The effusion is circumferential. There is mild right atrial diastolic collapse and is inferior vena caval plethora. There is brief RA diastolic collapse however there is no significant transmitral respiratory variations. IVC is plethoric to 2.7 cm in the context of patient being in decompensated heart failure. Although there are echocardiac features of early cardiac tamponade, patient is not in chaparro tamponade based on clinical assessment. Aorta: The aortic root is normal. The Ao Sinus is 3.50 cm. The Asc Ao is 3.50 cm. There is upper limits of normal dilatation of the ascending aorta. There is no dilatation of the aortic root. Systemic Veins: The inferior vena cava appears mildly dilated. There is less than 50% IVC collapse with inspiration. In comparison to the previous echocardiogram(s): There are no prior studies on this patient for comparison purposes. CONCLUSIONS: 1. Limited fellow echo. 2. Poorly visualized anatomical structures due to suboptimal image quality. 3. The patient is in atrial fibrillation which may influence the estimate of left ventricular function and transvalvular flows. 4. Left ventricular systolic function is normal with a 65% estimated ejection fraction. 5. There is a small to moderate pericardial effusion with some mild evidence for tamponade. QUANTITATIVE DATA SUMMARY: AORTA MEASUREMENTS: Normal Ranges: Ao Sinus, d: 3.50 cm (2.1-3.5cm) Asc Ao, d: 3.50 cm (2.1-3.4cm) TRICUSPID VALVE/RVSP: Normal Ranges: IVC Diam: 2.30 cm [id number] Star Garnica MD Electronically signed on 06/09/2023 at 9:39:34 AM Final Normal [facility] Thin prep Papanicolaou smear with manual screeningOrdered By: Colton Mayfield on 06-08-2023 Thin prep Papanicolaou smear with manual screening 6 5-15 [facility] Troponin I.cardiac panelon 1 Tropinin I.cardiac panel High sensitivity method 12 ng/L Normal 0-34 [facility] Comment on above: Order Comment: Less than 99th percentile of normal range cutoff- Female and children under 18 years old <35 ng/L; Male <54 ng/L: Negative Repeat testing should be performed if clinically indicated. Female and children under 18 years old 35-120 ng/L; Male 54-120 ng/L: Consistent with possible cardiac damage and possible increased clinical risk. Serial measurements may help to assess extent of myocardial damage. >120 ng/L: Consistent with cardiac damage, increased clinical risk and myocardial infarction. Serial measurements may help assess extent of myocardial damage. NOTE: Children less than 1 year old may have higher baseline troponin levels and results should be interpreted in conjunction with the overall clinical context. NOTE: Troponin I testing is performed using a different testing methodology at [facility] than at other [facility]. Direct result comparisons should only be made within the same method. Performed By: #### 8 9577-1 #### JACQUI Hayes ([id number]) [facility] ([facility]) [address] [place] [address] Urine Legionella pneumophila antigen detectionOrdered By: Colton Mayfield on 06-08-2023 L. pneumophila Ag Ql (U) [facility] L. pneumophila Ag Ql (U) [facility] XR CHEST 1 VIEWon 06-08-2023 XR CHEST 1 VIEW Interpreted By: Satya Person, STUDY: XR CHEST 1 VIEW; 06/08/2023 10:55 pm INDICATION: Signs/Symptoms:pleural effusion. COMPARISON: None. ACCESSION NUMBER(S): [id number] ORDERING CLINICIAN: АНДРЕЙ MORGAN FINDINGS: Radiopaque monitoring device overlies the midline. CARDIOMEDIASTINAL SILHOUETTE: Cardiomegaly versus pericardial effusion. Calcified left paratracheal and left upper lobe granuloma. LUNGS: Mild perihilar edema and moderate-sized left-sided pleural effusion. No pneumothorax. ABDOMEN: No remarkable upper abdominal findings. BONES: No acute osseous changes. IMPRESSION: 1. Cardiomegaly interstitial edema and left-sided effusion and correlate with cardiac and fluid status. 2. Mediastinal and parenchymal calcified granulomas. Signed by: Satya Saleh 06/10/2023 7:00 AM Dictation workstation: [id number] [facility] Absolute lymphocyte countOrd ered By: Angelica Brown on 06-07-2023 Lymphocytes Auto (Unsp spec) [#/Vol] 1.17 10*3/uL 0.83-4.51 [facility] Basophil percentageOrdered B y: Colton Mayfield on 06-07-2023 Lactate [Moles/Vol] 1.0 mmol/L 0.4-2.0 [facility] Basophil percentage 2.8 mg/dL 2.5-4.9 [facility] Basophil percentageOrdered B y: Angelica Brown on 06-07-2023 Basophils/100 WBC (Bld) 0.5 % 0-1 [facility] Bilirubin [Mass/Vol] 0.40 mg/dL 0.20-1.00 [facility] Comment on above: For patients on eltr ombopag therapy, use of Dimension [place] TBIL is not recommended. Chloride [Moles/Vol] 94 mmol/L 98-107 [facility] Eosinophils/100 WBC (Bld) 0.2 % 0-5 [facility] Glucose [Mass/Vol] 255 mg/dL 74-[address] [facility] Comment on above: Glucose result great er than or equal to 200 mg/dLsuggests DIABETES MELLITUS per A.D.A. criteria. Neutrophils (Bld) [#/Vol] 12.6 10*3/uL 2.0-7.7 [facility] Neutrophils/100 WBC (Bld) 81.5 % 47-70 [facility] Potassium [Moles/Vol] 3.7 mmol/L 3.5-5.1 [facility] Protein [Mass/Vol] 7.1 g/dL 6.4-8.[address] [facility] Sodium [Moles/Vol] 126 mmol/L 136-[address] [facility] WBC (Bld) [#/Vol] 15.5 10*3/uL 4.4-11.0 [facility] Blood erythrocytes count (nu mber/volume)Ordered By: Angelica Brown on 06-07-2023 RBC (Bld) [#/Vol] 3.36 10*6/uL 4.2-5.4 [facility] Blood hemoglobin measurement (mass/volume)Ordered By: Angelica Brown on 06-07-2023 Hemoglobin (Bld) [Mass/Vol] 9.3 g/dL 12.0-15.0 [facility] Blood lymphocytes/100 leukoc ytesOrdered By: Angelica Brown on 06-07-2023 Lymphocytes/100 WBC (Bld) 7.6 % 19-41 [facility] Blood monocytes/100 leukocyt esOrdered By: Angelica Brown on 06-07-2023 Monocytes/100 WBC (Bld) 9.3 % 0-10 [facility] Blood platelet mean volumeOr dered By: Angelica Brown on 06-07-2023 Platelet mean volume (Bld) [Entitic vol] 9.2 fL 6.2-12.0 [facility] Determination of erythrocyte mean corpuscular volume (MCV)Ordered By: Angelica Brown on 06-07-2023 MCV (RBC) [Entitic vol] 88.1 fL 81-99 [facility] Hematocrit Auto (Bld) [Volum e fraction]Ordered By: Angelica Brown on 06-07-2023 Hematocrit (Bld) [Volume fraction] 29.6 % 37-47 [facility] INR in Blood by Coagulation assayOrdered By: Colton Mayfield on 06-07-2023 INR Coag (Bld) [Relative time] 1.1 {INR} [facility] - Chemistry and C hemistry - challengeOrdered By: Colton Mayfield on 06-07-2023 CK [Catalytic activity/Vol] 50 U/L 26-192 [facility] Magnesium [Mass/Vol] 2.2 mg/dL 1.6-2.6 [facility] - Chemistry and C hemistry - challengeOrdered By: Angelica Brown on 06-07-2023 ALP [Catalytic activity/Vol] 145 U/L 45-117 [facility] ALT [Catalytic activity/Vol] 52 U/L 13-56 [facility] CO2 [Moles/Vol] 26.0 mmol/L 21.0-32.0 [facility] Globulin (S) [Mass/Vol] 4.6 g/dL 2.2-4.2 [facility] Urea nitrogen/Creatinine [Mass ratio] 42.7 mg/mg 10-20 [facility] Laboratory - CoagulationOrde red By: Colton Mayfield on 06-07-2023 aPTT Coag (Bld) [Time] 32.9 s 24.1-36.2 [facility] PT Coag (PPP) [Time] 14.3 s 11.7-14.9 [facility] - Hematology and Cell countsOrdered By: Angelica Brown on 06-07-2023 Erythrocyte distribution width (RBC) [Entitic vol] 43.4 fL 35.1-43.9 [facility] Erythrocyte distribution width (RBC) [Ratio] 13.4 % 11.6-14.6 [facility] Immature granulocytes/100 WBC (Bld) 0.900 % 0.0-0.9 [facility] Comment on above: IG% - Immature Granu locytes (promyelocytes, myelocytes and metamyelocytes) > 1% indicates that a LEFT SHIFT is Present. MCH (RBC) [Entitic mass] 27.7 pg 27.0-32.0 [facility] Nucleated RBC/100 WBC (Bld) [Ratio] 0 % 0-5 [facility] - Microbiology an d Antimicrobial susceptibilityOrdered By: Colton Mayfield on 06-07-2023 Bacteria identified Cx Nom (Bld) No growth in 5 days. [facility] Bacteria identified Cx Nom (Bld) No growth in 5 days. [facility] MCHC Auto (RBC) [Mass/Vol]Or dered By: Angelica Brown on 06-07-2023 MCHC (RBC) [Mass/Vol] 31.4 g/dL 32-36 [facility] No Panel InformationOrdered By: Angelica Brown on 06-07-2023 Estimated GFR (MDRD) Amer 115 mL/min >60 [facility] Comment on above: GFR Calc Estimated GFR (MDRD) Non-Af Amer 95 mL/min >60 [facility] Comment on above: Non- GFR Calc Troponin I High Sensitivity 8 pg/mL 3.0-54.0 [facility] Comment on above: Please Note: New Lala t Units and Gender Specific Reference Ranges. For more information see Policy Stat Procedure [place] High Sensitivity Troponin (TNIH) and attachments. Platelets bldOrdered By: Rogers Brown on 06-07-2023 Platelets (Bld) [#/Vol] 598 10*3/uL 150-450 [facility] Serum or plasma albumin parag urement (mass/volume)Ordered By: Angelica Brown on 06-07-2023 Albumin [Mass/Vol] 2.5 g/dL 3.2-5.[address] [facility] Serum or plasma albumin/glob ulin mass ratioOrdered By: Angelica Brown on 06-07-2023 Albumin/Globulin [Mass ratio] 0.5 {ratio} 0.9-2.4 [facility] Serum or plasma calcium parag urement (mass/volume)Ordered By: Angelica Brown on 06-07-2023 Calcium [Mass/Vol] 8.6 mg/dL 8.5-10.[address] [facility] Serum or plasma creatinine m easurement (mass/volume)Ordered By: Angelica Brown on 06-07-2023 Creatinine [Mass/Vol] 0.63 mg/dL 0.55-1.02 [facility] Comment on above: The validity of the calculated GFR & GFRAA in patients over 70 years has not been determined. Clinical correlation is essential. Serum or plasma urea nitroge n measurement (mass/volume)Ordered By: Angelica Brown on 06-07-2023 Urea nitrogen [Mass/Vol] 27 mg/dL 7-18 [facility] Thin prep Papanicolaou smear with manual screeningOrdered By: Angelica Brown on 06-07-2023 Thin prep Papanicolaou smear with manual screening 49 U/L 15-37 [facility] Thin prep Papanicolaou smear with manual screening 6 5-15 [facility] Whole blood hemoglobin A1c/t otal hemoglobin ratio (mass fraction)Ordered By: Angelica Brown on 06-07-2023 HbA1c (Bld) [Mass fraction] 5.9 % 3.8-5.6 [facility] Comment on above: Normal < 5.7 % Predi abetic 5.7 - 6.4 % Diabetic >or= 6.5 % Please note range changes. Absolute lymphocyte countOrd ered By: Anjum Wilson on 10-11-2023 Lymphocytes Auto (Unsp spec) [#/Vol] 1.77 10*3/uL 0.83-4.51 [facility] Basophil percentageOrdered B y: Anjum Wilson on 05-26-2023 Basophils/100 WBC (Bld) 1.2 % 0-1 [facility] Chloride [Moles/Vol] 103 mmol/L 98-107 [facility] Eosinophils/100 WBC (Bld) 6.0 % 0-5 [facility] Glucose [Mass/Vol] 118 mg/dL 74-[address] [facility] Comment on above: Fasting Glucose resu lt from 100 to 125 mg/dL suggests IMPAIRED HOMEOSTASIS per A.D.A. criteria. Neutrophils (Bld) [#/Vol] 5.9 10*3/uL 2.0-7.7 [facility] Neutrophils/100 WBC (Bld) 63.0 % 47-70 [facility] Potassium [Moles/Vol] 3.1 mmol/L 3.5-5.1 [facility] Sodium [Moles/Vol] 138 mmol/L 136-[address] [facility] WBC (Bld) [#/Vol] 9.4 10*3/uL 4.4-11.[address] [facility] Blood erythrocytes count (nu mber/volume)Ordered By: Anjum Wilson on 05-26-2023 RBC (Bld) [#/Vol] 3.60 10*6/uL 4.2-5.4 [facility] Blood hemoglobin measurement (mass/volume)Ordered By: Anjum Wilson on 05-26-2023 Hemoglobin (Bld) [Mass/Vol] 10.2 g/dL 12.0-15.0 [facility] Blood lymphocytes/100 leukoc ytesOrdered By: Anjum Wilson on 05-26-2023 Lymphocytes/100 WBC (Bld) 18.8 % 19-41 [facility] Blood monocytes/100 leukocyt esOrdered By: Anjum Wilson on 05-26-2023 Monocytes/100 WBC (Bld) 9.9 % 0-10 [facility] Blood platelet mean volumeOr dered By: Anjum Wilson on 05-26-2023 Platelet mean volume (Bld) [Entitic vol] 8.7 fL 6.2-12.0 [facility] Determination of erythrocyte mean corpuscular volume (MCV)Ordered By: Anjum Wilson on 05-26-2023 MCV (RBC) [Entitic vol] 88.6 fL 81-99 [facility] Hematocrit Auto (Bld) [Volum e fraction]Ordered By: Anjum Wilson on 05-26-2023 Hematocrit (Bld) [Volume fraction] 31.9 % 37-47 [facility] Laboratory - Chemistry and C hemistry - challengeOrdered By: Anjum Wilson on 05-26-2023 CO2 [Moles/Vol] 30.0 mmol/L 21.0-32.0 [facility] Urea nitrogen/Creatinine [Mass ratio] 24.5 mg/mg 10-20 [facility] Laboratory - Chemistry and C hemistry - challengeOrdered By: Sivan Martinez on 05-26-2023 Free T4 [Mass/Vol] 1.12 ng/dL 0.76-1.[address] [facility] Laboratory - Hematology and Cell countsOrdered By: Anjum Wilson on 05-26-2023 Erythrocyte distribution width (RBC) [Entitic vol] 42.9 fL 35.1-43.9 [facility] Erythrocyte distribution width (RBC) [Ratio] 13.2 % 11.6-14.6 [facility] Immature granulocytes/100 WBC (Bld) 1.100 % 0.0-0.9 [facility] Comment on above: IG% - Immature Granu locytes (promyelocytes, myelocytes and metamyelocytes) > 1% indicates that a LEFT SHIFT is Present. MCH (RBC) [Entitic mass] 28.3 pg 27.0-32.0 [facility] Nucleated RBC/100 WBC (Bld) [Ratio] 0 % 0-5 [facility] MCHC Auto (RBC) [Mass/Vol]Or dered By: Anjum Wilson on 05-26-2023 MCHC (RBC) [Mass/Vol] 32.0 g/dL 32-36 [facility] No Panel InformationOrdered By: Anjum Wilson on 05-26-2023 Estimated Creatinine Clearance Calc 33.71 ml/min [facility] Estimated GFR (MDRD) Amer 130 mL/min >60 [facility] Comment on above: GFR Calc Estimated GFR (MDRD) Non-Af Amer 107 mL/min >60 [facility] Comment on above: Non- GFR Calc Streptococcus pneumoniae Antigen (M [facility] Platelets bldOrdered By: Greg Wilson on 05-26-2023 Platelets (Bld) [#/Vol] 552 10*3/uL 150-450 [facility] Serum or plasma calcium parag urement (mass/volume)Ordered By: Anjum Wilson on 05-26-2023 Calcium [Mass/Vol] 8.9 mg/dL 8.5-10.[address] [facility] Serum or plasma creatinine m easurement (mass/volume)Ordered By: Anjum Wilson on 05-26-2023 Creatinine [Mass/Vol] 0.57 mg/dL 0.55-1.02 [facility] Comment on above: The validity of the calculated GFR & GFRAA in patients over 70 years has not been determined. Clinical correlation is essential. Serum or plasma urea nitroge n measurement (mass/volume)Ordered By: Anjum Wilson on 05-26-2023 Urea nitrogen [Mass/Vol] 14 mg/dL 7-18 [facility] Thin prep Papanicolaou smear with manual screeningOrdered By: Anjum Wilson on 05-26-2023 Thin prep Papanicolaou smear with manual screening 5 5-15 [facility] Urine Legionella pneumophila antigen detectionOrdered By: Anjum Wilson on 05-26-2023 L. pneumophila Ag Ql (U) [facility] Basophil percentageOrdered B y: Reinier Toney on 05-25-2023 Basophil percentage 0-5 SEEN /hpf 0-5 [facility] Bilirubin Test strip Ql (U)O rdered By: Reinier Toney on 05-25-2023 Bilirubin Ql (U) Negative Negative [facility] COVID-19 virus antigen assay Ordered By: Anjum Wilson on 05-25-2023 SARS-CoV-2 (COVID-19) Ag IA.rapid Ql (Resp) [facility] SARS-CoV-2 (COVID-19) Ag IA.rapid Ql (Resp) [facility] Ketones Test strip Ql (U)Ord ered By: Reinier Toney on 05-25-2023 Ketones Ql (U) Negative Negative [facility] Laboratory - Chemistry and C hemistry - challengeOrdered By: Reinier Toney on 05-25-2023 Natriuretic peptide B (Bld) [Mass/Vol] 292.5 pg/mL 0-100 [facility] Mucus LM Ql (Urine sed)Order ed By: Reinier Toney on 05-25-2023 Mucus Ql (Urine sed) 0 SEEN /hpf [facility] Nitrite Test strip Ql (U)Ord ered By: Reinier Toney on 05-25-2023 Nitrite Ql (U) Negative Negative [facility] No Panel InformationOrdered By: Anjum Wilson on 05-25-2023 Streptococcus pneumoniae Antigen (M [facility] Thyroid Stimulating Hormone (TSH) 8.48 uIU/mL 0.358-3.74 [facility] No Panel InformationOrdered By: Reinier Toney on 05-25-2023 Troponin I High Sensitivity 12 pg/mL 3.0-54.0 [facility] Comment on above: Please Note: New Lala t Units and Gender Specific Reference Ranges. For more information see Policy Stat Procedure [place] High Sensitivity Troponin (TNIH) and attachments. Protein Test strip Ql (U)Ord ered By: Reinier Toney on 05-25-2023 Protein Ql (U) Negative Negative [facility] Squamous epithelial cells de tection in urine sediment by light microscopyOrdered By: Reinier Toney on 05-25-2023 Epithelial cells.squamous LM Ql (Urine sed) 5-10 SEEN /hpf 5-10 [facility] Urine Legionella pneumophila antigen detectionOrdered By: Anjum Wilson on 05-25-2023 L. pneumophila Ag Ql (U) [facility] Urine blood detectionOrdered By: Reinier Toney on 05-25-2023 RBC Ql (U) 10 /ul Negative [facility] RBC Ql (U) 0 SEEN /hpf 0-5 [facility] Urine clarityOrdered By: Chuckie Toney on 05-25-2023 Clarity (U) Clear Clear [facility] Urine color determinationOrd ered By: Reinier Toney on 05-25-2023 Color (U) Yellow Yellow [facility] Urine glucose detectionOrder ed By: Reinier Toney on 05-25-2023 Glucose Ql (U) Normal mg/dl Normal [facility] Urine leukocyte esterase det ection by dipstickOrdered By: Reinier Toney on 05-25-2023 Leukocyte esterase Test strip Ql (U) 500 /ul Negative [facility] Urine pHOrdered By: Reinier Toney on 05-25-2023 pH (U) 6.0 [pH] 5.0 - 8.0 [facility] Urine sediment bacteria coun t by microscopy (number/high power field)Ordered By: Reinier Toney on 05-25-2023 Bacteria LM.HPF (Urine sed) [#/Area] 1 /[HPF] None Seen [facility] Urine specific gravity measu rementOrdered By: Reinier Toney on 05-25-2023 Specific gravity (U) [Rel density] 1.010 1.002-1.030 [facility] Urobilinogen Auto test strip Ql (U)Ordered By: Reinier Toney on 05-25-2023 Urobilinogen Ql (U) Normal mg/dl Normal [facility] Basophil percentageOrdered B y: Srikanth Lewis on 02-10-2023 Basophil percentage 0-5 SEEN /hpf 0-5 [facility] Bilirubin Test strip Ql (U)O rdered By: Srikanth Lewis on 02-10-2023 Bilirubin Ql (U) Negative Negative [facility] Culture, urineOrdered By: Yuly Lewis on 02-10-2023 Bacteria identified Cx Nom (U) Positive [facility] Ketones Test strip Ql (U)Ord ered By: Srikanth Lewis on 02-10-2023 Ketones Ql (U) Negative Negative [facility] Laboratory - Chemistry and C hemistry - challengeon 02-10-2023 Bilirubin Ql (U) Negative [facility] Glucose Ql (U) Negative [facility] Ketones Ql (U) Negative [facility] pH (U) 6.0 [pH] [facility] Specific gravity (U) [Rel density] 1.005 [facility] Urobilinogen (U) [Mass/Vol] Negative [facility] Laboratory - Hematology and Cell countson 02-10-2023 Hemoglobin Ql (U) Negative [facility] Laboratory - Specimen inform ationon 02-10-2023 Clarity (U) Clear [facility] Color (U) Tracy [facility] Laboratory - Urinalysison Nitrite Ql (U) Negative [facility] Protein Ql (U) Negative [facility] Mucus LM Ql (Urine sed)Order ed By: Srikanth Lewis on 02-10-2023 Mucus Ql (Urine sed) 0 SEEN /hpf [facility] Nitrite Test strip Ql (U)Ord ered By: Srikanth Lewis on 02-10-2023 Nitrite Ql (U) Negative Negative [facility] No Panel Informationon 02-10 Urine Leukocytes Positive [facility] Urine Non-Hemolyzed Blood Negative [facility] Protein Test strip Ql (U)Ord ered By: Srikanth Lewis on 02-10-2023 Protein Ql (U) Negative Negative [facility] Squamous epithelial cells de tection in urine sediment by light microscopyOrdered By: Srikanth Lewis on 02-10-2023 Epithelial cells.squamous LM Ql (Urine sed) 5-10 SEEN /hpf 5-10 [facility] Urine blood detectionOrdered By: Srikanth Lewis on 02-10-2023 RBC Ql (U) 10 /ul Negative [facility] RBC Ql (U) 0 SEEN /hpf 0-5 [facility] Urine clarityOrdered By: Remberto Lewis on 02-10-2023 Clarity (U) Clear Clear [facility] Urine color determinationOrd ered By: Srikanth Lewis on 02-10-2023 Color (U) Yellow Yellow [facility] Urine glucose detectionOrder ed By: Srikanth Lewis on 02-10-2023 Glucose Ql (U) Normal mg/dl Normal [facility] Urine leukocyte esterase det ection by dipstickOrdered By: Srikanth Lewis on 02-10-2023 Leukocyte esterase Test strip Ql (U) 500 /ul Negative [facility] Urine pHOrdered By: Srikanth torres on 02-10-2023 pH (U) 6.5 [pH] 5.0 - 8.0 [facility] Urine sediment bacteria coun t by microscopy (number/high power field)Ordered By: Srikanth Lewis on 02-10-2023 Bacteria LM.HPF (Urine sed) [#/Area] RARE /hpf None Seen [facility] Urine specific gravity measu rementOrdered By: Srikanth Lewis on 02-10-2023 Specific gravity (U) [Rel density] 1.010 1.002-1.030 [facility] Urobilinogen Auto test strip Ql (U)Ordered By: Srikanth Lewis on 02-10-2023 Urobilinogen Ql (U) Normal mg/dl Normal [facility] Basophil percentageon 2021 Basophil percentage 0 SEEN /hpf [facility] Work Phone: Bilirubin [Mass/Vol] 0.40 mg/dL 0.20-1.00 [facility] Work Phone: Comment on above: For patients on eltr ombopag therapy, use of Dimension [place] TBIL is not recommended. Chloride [Moles/Vol] 104 mmol/L 98-107 [facility] Work Phone: Cholesterol [Mass/Vol] 204 mg/dL <200 [facility] Work Phone: Comment on above: <200 mg/dL Desirable 200-240 mg/dL Borderline >240 mg/dL High Risk Glucose [Mass/Vol] 113 mg/dL 74-[address] [facility] Work Phone: Comment on above: Fasting Glucose resu lt from 100 to 125 mg/dL suggests IMPAIRED HOMEOSTASIS per A.D.A. criteria. Potassium [Moles/Vol] 3.5 mmol/L 3.5-5.1 [facility] Work Phone: Protein [Mass/Vol] 8.0 g/dL 6.4-8.[address] [facility] Work Phone: Sodium [Moles/Vol] 139 mmol/L 136-[address] [facility] Work Phone: Triglyceride [Mass/Vol] 192 mg/dL [facility] Work Phone: Comment on above: The drugs N-Acetylcy steine and Metamizole may falsely depress this assay.Serum Triglycerides Reference Interval Normal <150 mg/dL Borderline high 150 - 199 mg/dL High 200 - 499 mg/dL Very High > or = 500 mg/dL Bilirubin Test strip Ql (U)o n 12-31-2021 Bilirubin Ql (U) Negative Negative [facility] Work Phone: Ketones Test strip Ql (U)on 12-31-2021 Ketones Ql (U) Negative Negative [facility] Work Phone: Laboratory - Chemistry and C hemistry - challengeon 12-31-2021 ALP [Catalytic activity/Vol] 86 U/L 45-117 [facility] Work Phone: ALT [Catalytic activity/Vol] 24 U/L 13-56 [facility] Work Phone: CO2 [Moles/Vol] 28.0 mmol/L 21.0-32.0 [facility] Work Phone: Globulin (S) [Mass/Vol] 4.1 g/dL 2.2-4.2 [facility] Work Phone: Urea nitrogen/Creatinine [Mass ratio] 26.8 mg/mg 10-20 [facility] Work Phone: Mucus LM Ql (Urine sed)on Mucus Ql (Urine sed) 0 SEEN /hpf [facility] Work Phone: Nitrite Test strip Ql (U)on 12-31-2021 Nitrite Ql (U) Negative Negative [facility] Work Phone: No Panel Informationon 12-31 Estimated GFR (MDRD) Amer 133 mL/min >60 [facility] Work Phone: Comment on above: GFR Calc Estimated GFR (MDRD) Non-Af Amer 110 mL/min >60 [facility] Work Phone: Comment on above: Non- GFR Calc Protein Test strip Ql (U)on 12-31-2021 Protein Ql (U) Negative Negative [facility] Work Phone: Serum or plasma albumin parag urement (mass/volume)on 12-31-2021 Albumin [Mass/Vol] 3.9 g/dL 3.2-5.[address] [facility] Work Phone: Serum or plasma albumin/glob ulin mass ratioon 12-31-2021 Albumin/Globulin [Mass ratio] 1.0 {ratio} 0.9-2.4 [facility] Work Phone: Serum or plasma calcium parag urement (mass/volume)on 12-31-2021 Calcium [Mass/Vol] 9.4 mg/dL 8.5-10.[address] [facility] Work Phone: Serum or plasma cholesterol in HDL measurement (mass/volume)on 12-31-2021 Cholesterol in HDL [Mass/Vol] 66 mg/dL [facility] Work Phone: Comment on above: The drugs N-Acetylcy steine and Metamizole may falsely depress this assay. Reference Range HDL <40 mg/dL Low HDL Cholesterol HDL >or= 60 mg/dL High HDL Cholesterol Serum or plasma cholesterol in VLDL measurement (mass/volume)on 12-31-2021 Cholesterol in VLDL [Mass/Vol] 38 mg/dL 5-40 [facility] Work Phone: Serum or plasma creatinine m easurement (mass/volume)on 12-31-2021 Creatinine [Mass/Vol] 0.56 mg/dL 0.55-1.02 [facility] Work Phone: Comment on above: The validity of the calculated GFR & GFRAA in patients over 70 years has not been determined. Clinical correlation is essential. Serum or plasma low density lipoprotein (LDL) cholesterol measurement (mass/volume)on 12-31-2021 Cholesterol in LDL [Mass/Vol] 100 mg/dL 0-130 [facility] Work Phone: Serum or plasma urea nitroge n measurement (mass/volume)on 12-31-2021 Urea nitrogen [Mass/Vol] 15 mg/dL 7-18 [facility] Work Phone: Squamous epithelial cells de tection in urine sediment by light microscopyon 12-31-2021 Epithelial cells.squamous LM Ql (Urine sed) 0-5 SEEN /hpf [facility] Work Phone: Thin prep Papanicolaou smear with manual screeningon 12-31-2021 Thin prep Papanicolaou smear with manual screening 21 U/L 15-37 [facility] Work Phone: Thin prep Papanicolaou smear with manual screening 7 5-15 [facility] Work Phone: Urine blood detectionon 12-14 RBC Ql (U) Negative Negative [facility] Work Phone: RBC Ql (U) 0 SEEN /hpf [facility] Work Phone: Urine clarityon 12-31-2021 Clarity (U) Clear Clear [facility] Work Phone: Urine color determinationon 12-31-2021 Color (U) Straw Yellow [facility] Work Phone: Urine glucose detectionon Glucose Ql (U) Normal mg/dl Normal [facility] Work Phone: Urine leukocyte esterase det ection by dipstickon 12-31-2021 Leukocyte esterase Test strip Ql (U) Negative Negative [facility] Work Phone: Urine pHon 12-31-2021 pH (U) 6.5 [pH] [facility] Work Phone: Urine sediment bacteria coun t by microscopy (number/high power field)on 12-31-2021 Bacteria LM.HPF (Urine sed) [#/Area] RARE /hpf None Seen [facility] Work Phone: Urine specific gravity measu rementon 12-31-2021 Specific gravity (U) [Rel density] 1.010 [facility] Work Phone: Urobilinogen Auto test strip Ql (U)on 12-31-2021 Urobilinogen Ql (U) Normal mg/dl Normal [facility] Work Phone: Basophil percentageon 2021 Basophil percentage 0 SEEN /hpf [facility] Work Phone: Bilirubin Test strip Ql (U)o n 10-24-2021 Bilirubin Ql (U) Negative Negative [facility] Work Phone: Culture, urineon 10-24-2021 Bacteria identified Cx Nom (U) Positive [facility] Work Phone: Ketones Test strip Ql (U)on 10-24-2021 Ketones Ql (U) Negative Negative [facility] Work Phone: Laboratory - Chemistry and C hemistry - challengeon 10-24-2021 Bilirubin Ql (U) Negative [facility] Work Phone: Glucose Ql (U) Negative [facility] Work Phone: Ketones Ql (U) Negative [facility] Work Phone: pH (U) 6.0 [pH] [facility] Work Phone: Specific gravity (U) [Rel density] 1.015 [facility] Work Phone: Urobilinogen (U) [Mass/Vol] Negative [facility] Work Phone: Laboratory - Hematology and Cell countson 10-24-2021 Hemoglobin Ql (U) Small [facility] Work Phone: Laboratory - Specimen inform ationon 10-24-2021 Clarity (U) Clear [facility] Work Phone: Color (U) YELLOW [facility] Work Phone: Laboratory - Urinalysison Nitrite Ql (U) Negative [facility] Work Phone: Protein Ql (U) Negative [facility] Work Phone: Mucus LM Ql (Urine sed)on Mucus Ql (Urine sed) 0 SEEN /hpf [facility] Work Phone: Nitrite Test strip Ql (U)on 10-24-2021 Nitrite Ql (U) Negative Negative [facility] Work Phone: No Panel Informationon 10-24 Urine Leukocytes Negatve [facility] Work Phone: Urine Non-Hemolyzed Blood Small [facility] Work Phone: Protein Test strip Ql (U)on 10-24-2021 Protein Ql (U) Negative Negative [facility] Work Phone: Squamous epithelial cells de tection in urine sediment by light microscopyon 10-24-2021 Epithelial cells.squamous LM Ql (Urine sed) 0-5 SEEN /hpf [facility] Work Phone: Urine blood detectionon 10-14 RBC Ql (U) Negative Negative [facility] Work Phone: RBC Ql (U) 0 SEEN /hpf [facility] Work Phone: Urine clarityon 10-24-2021 Clarity (U) Clear Clear [facility] Work Phone: Urine color determinationon 10-24-2021 Color (U) Yellow Yellow [facility] Work Phone: Urine glucose detectionon Glucose Ql (U) Normal mg/dl Normal [facility] Work Phone: Urine leukocyte esterase det ection by dipstickon 10-24-2021 Leukocyte esterase Test strip Ql (U) Negative Negative [facility] Work Phone: Urine pHon 10-24-2021 pH (U) 6.0 [pH] [facility] Work Phone: Urine sediment bacteria coun t by microscopy (number/high power field)on 10-24-2021 Bacteria LM.HPF (Urine sed) [#/Area] 0 /[HPF] None Seen [facility] Work Phone: Urine specific gravity measu rementon 10-24-2021 Specific gravity (U) [Rel density] 1.010 [facility] Work Phone: Urobilinogen Auto test strip Ql (U)on 10-24-2021 Urobilinogen Ql (U) Normal mg/dl Normal [facility] Work Phone: Vital Signs Date Time Vital Sign Value Performing Clinician Facility 03-22-2025 15:36-0400 Body height 152.[address] Coy Nath DO Work Phone: [facility] 03-22-2025 15:36-0400 Body mass index (BMI) [Ratio] 25.8 kg/m2 Dr. Coy Nath DO Work Phone: [facility] 03-22-2025 15:36-0400 Body weight 60.[address] Coy Nath DO Work Phone: [facility] 01-10-2025 09:42-0400 Body height 152.[address] Coy Nath DO Work Phone: [facility] 01-10-2025 09:42-0400 Body mass index (BMI) [Ratio] 26.7 kg/m2 Dr. Coy Nath DO Work Phone: [facility] 01-10-2025 09:42-0400 Body temperature 97.8 [degF] Dr. Coy Nath DO Work Phone: [facility] 01-10-2025 09:42-0400 Body weight 62.[address] Coy Nath DO Work Phone: [facility] 01-10-2025 09:42-0400 Diastolic blood pressure 76 mm[Hg] Dr. Coy Nath DO Work Phone: [facility] 01-10-2025 09:42-0400 Heart rate 54 /min Dr. Coy Nath DO Work Phone: [facility] 01-10-2025 09:42-0400 Respiratory rate 18 /min Dr. Coy Nath DO Work Phone: [facility] 01-10-2025 09:42-0400 SaO2% (BldA) [Mass fraction] 96 % Dr. Coy Nath DO Work Phone: [facility] 01-10-2025 09:42-0400 Systolic blood pressure 138 mm[Hg] Dr. Coy Nath DO Work Phone: [facility] 10-25-2024 11:35-0400 Body height 152.[address] Coy Nath DO Work Phone: [facility] 10-25-2024 11:35-0400 Body mass index (BMI) [Ratio] 26.4 kg/m2 Dr. Coy Nath DO Work Phone: [facility] 10-25-2024 11:35-0400 Body temperature 96.3 [degF] Dr. Coy Nath DO Work Phone: [facility] 10-25-2024 11:35-0400 Body weight 61.[address] Coy Nath DO Work Phone: [facility] 10-25-2024 11:35-0400 Diastolic blood pressure 48 mm[Hg] Dr. Coy Nath DO Work Phone: [facility] 10-25-2024 11:35-0400 Heart rate 16 /min Dr. Coy Nath DO Work Phone: [facility] 10-25-2024 11:35-0400 Respiratory rate 16 /min Dr. Coy Nath DO Work Phone: [facility] 10-25-2024 11:35-0400 SaO2% (BldA) [Mass fraction] 96 % Dr. Coy Nath DO Work Phone: [facility] 10-25-2024 11:35-0400 Systolic blood pressure 112 mm[Hg] Dr. Coy Nath DO Work Phone: [facility] 10-11-2024 11:39-0500 Body mass index (BMI) [Ratio] 26.9 kg/m2 Dr. Coy Nath DO Work Phone: [facility] 10-11-2024 11:39-0500 Body temperature 97.8 [degF] Dr. Coy Nath DO Work Phone: [facility] 10-11-2024 11:39-0500 Body weight 62.[address] Coy Nath DO Work Phone: [facility] 10-11-2024 11:39-0500 Diastolic blood pressure 78 mm[Hg] Dr. Coy Nath DO Work Phone: [facility] 10-11-2024 11:39-0500 Heart rate 69 /min Dr. Coy Nath DO Work Phone: [facility] 10-11-2024 11:39-0500 Respiratory rate 19 /min Dr. Coy Nath DO Work Phone: [facility] 10-11-2024 11:39-0500 SaO2% (BldA) [Mass fraction] 96 % Dr. Coy Nath DO Work Phone: [facility] 10-11-2024 11:39-0500 Systolic blood pressure 142 mm[Hg] Dr. Coy Naht DO Work Phone: [facility] 08-29-2024 14:10-0500 Body temperature 98 [degF] Dr. Coy Nath DO Work Phone: [facility] 08-29-2024 14:10-0500 Diastolic blood pressure 47 mm[Hg] Dr. Coy Nath DO Work Phone: [facility] 08-29-2024 14:10-0500 Heart rate 62 /min Dr. Coy Nath DO Work Phone: [facility] 08-29-2024 14:10-0500 Respiratory rate 18 /min Dr. Coy Nath DO Work Phone: [facility] 08-29-2024 14:10-0500 SaO2% (BldA) [Mass fraction] 98 % Dr. Coy Nath DO Work Phone: [facility] 08-29-2024 14:10-0500 Systolic blood pressure 117 mm[Hg] Dr. Coy Nath DO Work Phone: [facility] 08-28-2024 19:45-0500 Body mass index (BMI) [Ratio] 26.2 kg/m2 Dr. Coy Nath DO Work Phone: [facility] 08-28-2024 19:45-0500 Body weight [address] Coy Nath DO Work Phone: [facility] 08-28-2024 14:47-0500 Inhaled oxygen flow rate 3 L/min Dr. Coy Nath DO Work Phone: [facility] 07-27-2024 12:33-0500 Body mass index (BMI) [Ratio] 25 kg/m2 Dr. Coy Nath DO Work Phone: [facility] 07-27-2024 12:33-0500 Body temperature 97.9 [degF] Dr. Coy Nath DO Work Phone: [facility] 07-27-2024 12:33-0500 Body weight 63.[address] Coy Nath DO Work Phone: [facility] 07-27-2024 12:33-0500 Diastolic blood pressure 62 mm[Hg] Dr. Coy Nath DO Work Phone: [facility] 07-27-2024 12:33-0500 Heart rate 65 /min Dr. Coy Nath DO Work Phone: [facility] 07-27-2024 12:33-0500 Respiratory rate 16 /min Dr. Coy Nath DO Work Phone: [facility] 07-27-2024 12:33-0500 SaO2% (BldA) [Mass fraction] 97 % Dr. Coy Nath DO Work Phone: [facility] 07-27-2024 12:33-0500 Systolic blood pressure 122 mm[Hg] Dr. Coy Nath DO Work Phone: [facility] 07-04-2024 14:58-0500 Body mass index (BMI) [Ratio] 25 kg/m2 Dr. Coy Nath DO Work Phone: [facility] 07-04-2024 14:58-0500 Body weight 63.[address] Coy Nath DO Work Phone: [facility] 07-04-2024 14:58-0500 Diastolic blood pressure 64 mm[Hg] Dr. Coy Nath DO Work Phone: [facility] 07-04-2024 14:58-0500 Respiratory rate 16 /min Dr. Coy Nath DO Work Phone: [facility] 07-04-2024 14:58-0500 Systolic blood pressure 132 mm[Hg] Dr. Coy Nath DO Work Phone: [facility] 10-26-2023 15:25-0400 Body mass index (BMI) [Ratio] 25.86 kg/m2 Mal Phipps MD Work Phone: [facility] 10-26-2023 15:25-0400 Body weight 66.22 kg Mal Phipps MD Work Phone: [facility] 10-26-2023 15:25-0400 Diastolic blood pressure 73 mm[Hg] Mal Phipps MD Work Phone: [facility] 10-26-2023 15:25-0400 Heart rate 54 /min Mal Phipps MD Work Phone: [facility] 10-26-2023 15:25-0400 Respiratory rate 16 /min Mal Phipps MD Work Phone: [facility] 10-26-2023 15:25-0400 SaO2% (BldA) [Mass fraction] 95 % Mal Phipps MD Work Phone: [facility] 10-26-2023 15:25-0400 Systolic blood pressure 151 mm[Hg] Mal Phipps MD Work Phone: [facility] 09-29-2023 15:23-0500 Body height 160.[address] Coy Nath Work Phone: [facility] 09-29-2023 15:23-0500 Body mass index (BMI) [Ratio] 26 kg/m2 Dr. Coy Nath Work Phone: [facility] 09-29-2023 15:23-0500 Body temperature 97.5 [degF] Dr. Coy Nath Work Phone: [facility] 09-29-2023 15:23-0500 Body weight 66.[address] Coy Nath Work Phone: [facility] 09-29-2023 15:23-0500 Diastolic blood pressure 70 mm[Hg] Dr. Coy Nath Work Phone: [facility] 09-29-2023 15:23-0500 Heart rate 60 /min Dr. Coy Nath Work Phone: [facility] 09-29-2023 15:23-0500 Respiratory rate 16 /min Dr. Coy Nath Work Phone: [facility] 09-29-2023 15:23-0500 SaO2% (BldA) [Mass fraction] 97 % Dr. Coy Nath Work Phone: [facility] 09-29-2023 15:23-0500 Systolic blood pressure 128 mm[Hg] Dr. Coy Nath Work Phone: [facility] 08-18-2023 16:26-0500 Body height 160.[address] Coy Nath Work Phone: [facility] 08-18-2023 16:26-0500 Body mass index (BMI) [Ratio] 25.3 kg/m2 Dr. Coy Nath Work Phone: [facility] 08-18-2023 16:26-0500 Body temperature 97.5 [degF] Dr. Coy Nath Work Phone: [facility] 08-18-2023 16:26-0500 Body weight 64.[address] Coy Nath Work Phone: [facility] 08-18-2023 16:26-0500 Diastolic blood pressure 72 mm[Hg] Dr. Coy Nath Work Phone: [facility] 08-18-2023 16:26-0500 Heart rate 62 /min Dr. Coy Nath Work Phone: [facility] 08-18-2023 16:26-0500 Respiratory rate 14 /min Dr. Coy Nath Work Phone: [facility] 08-18-2023 16:26-0500 SaO2% (BldA) [Mass fraction] 98 % Dr. Coy Nath Work Phone: [facility] 08-18-2023 16:26-0500 Systolic blood pressure 124 mm[Hg] Dr. Coy Nath Work Phone: [facility] 07-21-2023 16:03-0500 Body height 160.[address] Coy Nath Work Phone: [facility] 07-21-2023 16:03-0500 Body mass index (BMI) [Ratio] 26.5 kg/m2 Dr. Coy Nath Work Phone: [facility] 07-21-2023 16:03-0500 Body temperature 97.6 [degF] Dr. Coy Nath Work Phone: [facility] 07-21-2023 16:03-0500 Body weight 68.[address] Coy Nath Work Phone: [facility] 07-21-2023 16:03-0500 Diastolic blood pressure 52 mm[Hg] Dr. Coy Nath Work Phone: [facility] 07-21-2023 16:03-0500 Heart rate 75 /min Dr. Coy Nath Work Phone: [facility] 07-21-2023 16:03-0500 Respiratory rate 16 /min Dr. Coy Nath Work Phone: [facility] 07-21-2023 16:03-0500 SaO2% (BldA) [Mass fraction] 98 % Dr. Coy Nath Work Phone: [facility] 07-21-2023 16:03-0500 Systolic blood pressure 118 mm[Hg] Dr. Coy Nath Work Phone: [facility] 07-20-2023 11:27-0500 Body height 160 cm Mal Phipps MD Work Phone: [facility] 07-20-2023 11:27-0500 Body mass index (BMI) [Ratio] 26.04 kg/m2 Mal Phipps MD Work Phone: [facility] 07-20-2023 11:27-0500 Body weight 66.68 kg Mal Phipps MD Work Phone: [facility] 07-20-2023 11:27-0500 Diastolic blood pressure 53 mm[Hg] Mal Phipps MD Work Phone: [facility] 07-20-2023 11:27-0500 Heart rate 54 /min Mal Phipps MD Work Phone: [facility] 07-20-2023 11:27-0500 SaO2% (BldA) [Mass fraction] 97 % Mal Phipps MD Work Phone: [facility] 07-20-2023 11:27-0500 Systolic blood pressure 125 mm[Hg] Mal Phipps MD Work Phone: [facility] 07-09-2023 17:14-0500 Diastolic blood pressure 76 mm[Hg] Dr. Coy Nath Work Phone: [facility] 07-09-2023 17:14-0500 Heart rate 75 /min Dr. Coy Nath Work Phone: [facility] 07-09-2023 17:14-0500 Respiratory rate 16 /min Dr. Coy Nath Work Phone: [facility] 07-09-2023 17:14-0500 SaO2% (BldA) [Mass fraction] 96 % Dr. Coy Nath Work Phone: [facility] 07-09-2023 17:14-0500 Systolic blood pressure 131 mm[Hg] Dr. Coy Nath Work Phone: [facility] 07-09-2023 13:59-0500 Body mass index (BMI) [Ratio] 25.9 kg/m2 Dr. Coy Nath Work Phone: [facility] 07-09-2023 13:59-0500 Body weight 66.[address] Coy Nath Work Phone: [facility] 07-09-2023 13:44-0500 Body temperature 97 [degF] Dr. Coy Nath Work Phone: [facility] 07-05-2023 11:12-0500 Body temperature 98.42 [degF] BALDEV KULKARNI MD [facility] [place] 07-05-2023 11:12-0500 Diastolic Blood Pressure Non-Invasive 72 mm[Hg] BALDEV KULKARNI MD [facility] [place] 07-05-2023 11:12-0500 Heart rate 71 /min BALDEV KULKARNI MD [facility] [place] 07-05-2023 11:12-0500 Respiratory rate 18 /min BALDEV KULKARNI MD [facility] [place] 07-05-2023 11:12-0500 Systolic Blood Pressure Non-Invasive 146 mm[Hg] BALDEV KULKARNI MD [facility] [place] 07-01-2023 16:43-0500 Diastolic blood pressure 78 mm[Hg] Dr. Coy Nath Work Phone: [facility] 07-01-2023 16:43-0500 Systolic blood pressure 144 mm[Hg] Dr. Coy Nath Work Phone: [facility] 07-01-2023 14:57-0500 Body mass index (BMI) [Ratio] 26.1 kg/m2 Dr. Coy Nath Work Phone: [facility] 07-01-2023 14:57-0500 Body temperature 98.1 [degF] Dr. Coy Nath Work Phone: [facility] 07-01-2023 14:57-0500 Body weight 66.[address] Cyo Nath Work Phone: [facility] 07-01-2023 14:57-0500 Heart rate 71 /min Dr. Coy Nath Work Phone: [facility] 07-01-2023 14:57-0500 Respiratory rate 16 /min Dr. Coy Nath Work Phone: [facility] 07-01-2023 14:57-0500 SaO2% (BldA) [Mass fraction] 97 % Dr. Coy Nath Work Phone: [facility] 06-08-2023 22:38-0400 Body temperature 37.0 degrees Celsius [facility] Comment on above: Performed By: #### [id number] #### JACQUI Hayes ([id number]) [facility] ([facility]) [address] [place] [address] 06-08-2023 22:38-0400 SaO2% (BldA) [Mass fraction] 98 % [facility] Comment on above: Performed By: #### [id number] #### JACQUI Hayes ([id number]) [facility] ([facility]) [address] [place] [address] 06-08-2023 19:52-0400 Heart rate 140 /min Dr. Coy Nath Work Phone: [facility] 06-08-2023 19:52-0400 Inhaled oxygen concentration 35 % Dr. Coy Nath Work Phone: [facility] 06-08-2023 19:52-0400 Respiratory rate 35 /min Dr. Coy Nath Work Phone: [facility] 06-08-2023 19:52-0400 SaO2% (BldA) [Mass fraction] 94 % Dr. Coy Nath Work Phone: [facility] 06-08-2023 18:00-0400 Body temperature 98.4 [degF] Dr. Coy Nath Work Phone: [facility] 06-08-2023 18:00-0400 Diastolic blood pressure 90 mm[Hg] Dr. Coy Nath Work Phone: [facility] 06-08-2023 18:00-0400 Systolic blood pressure 144 mm[Hg] Dr. Coy Nath Work Phone: [facility] 06-08-2023 16:00-0400 Inhaled oxygen flow rate 35 L/min Dr. Coy Nath Work Phone: [facility] 06-08-2023 03:49-0400 Body mass index (BMI) [Ratio] 28 kg/m2 Dr. Coy Nath Work Phone: [facility] 06-08-2023 03:49-0400 Body weight 71.[address] Coy Nath Work Phone: [facility] 06-07-2023 21:31-0400 Body height 160.[address] Coy Nath Work Phone: [facility] 06-07-2023 10:50-0400 Body mass index (BMI) [Ratio] 29.2 kg/m2 Dr. Coy Nath Work Phone: [facility] 06-07-2023 10:50-0400 Body temperature 98 [degF] Dr. Coy Nath Work Phone: [facility] 06-07-2023 10:50-0400 Body weight 72.[address] Coy Nath Work Phone: [facility] 06-07-2023 10:50-0400 Diastolic blood pressure 52 mm[Hg] Dr. Coy Nath Work Phone: [facility] 06-07-2023 10:50-0400 Heart rate 77 /min Dr. Coy Nath Work Phone: [facility] 06-07-2023 10:50-0400 Respiratory rate 19 /min Dr. Coy Nath Work Phone: [facility] 06-07-2023 10:50-0400 SaO2% (BldA) [Mass fraction] 94 % Dr. Coy Nath Work Phone: [facility] 06-07-2023 10:50-0400 Systolic blood pressure 110 mm[Hg] Dr. Coy Nath Work Phone: [facility] 05-26-2023 15:20-0400 Body temperature 98.3 [degF] Dr. Coy Nath Work Phone: [facility] 05-26-2023 15:20-0400 Diastolic blood pressure 49 mm[Hg] Dr. Coy Nath Work Phone: [facility] 05-26-2023 15:20-0400 Heart rate 78 /min Dr. Coy Nath Work Phone: [facility] 05-26-2023 15:20-0400 Respiratory rate 17 /min Dr. Coy Nath Work Phone: [facility] 05-26-2023 15:20-0400 SaO2% (BldA) [Mass fraction] 92 % Dr. Coy Nath Work Phone: [facility] 05-26-2023 15:20-0400 Systolic blood pressure 142 mm[Hg] Dr. Coy Nath Work Phone: [facility] 05-26-2023 09:39-0400 Inhaled oxygen flow rate 2 L/min Dr. Coy Nath Work Phone: [facility] 05-25-2023 16:17-0400 Body height 157.[address] Coy Nath Work Phone: [facility] 05-25-2023 16:17-0400 Body mass index (BMI) [Ratio] 27.4 kg/m2 Dr. Coy Nath Work Phone: [facility] 05-25-2023 16:17-0400 Body weight 68.[address] Coy Nath Work Phone: [facility] 05-25-2023 09:52-0400 Body mass index (BMI) [Ratio] 27.4 kg/m2 Dr. Coy Nath Work Phone: [facility] 05-25-2023 09:52-0400 Body weight 68.[address] Coy Nath Work Phone: [facility] 05-25-2023 09:52-0400 Diastolic blood pressure 74 mm[Hg] Dr. Coy Nath Work Phone: [facility] 05-25-2023 09:52-0400 Heart rate 82 /min Dr. Coy Nath Work Phone: [facility] 05-25-2023 09:52-0400 Respiratory rate 16 /min Dr. Coy Nath Work Phone: [facility] 05-25-2023 09:52-0400 SaO2% (BldA) [Mass fraction] 89 % Dr. Coy Nath Work Phone: [facility] 05-25-2023 09:52-0400 Systolic blood pressure 164 mm[Hg] Dr. Coy Nath Work Phone: [facility] 05-13-2023 15:30-0400 Body temperature 99.2 [degF] Dr. Coy Nath Work Phone: [facility] 05-13-2023 15:30-0400 Diastolic blood pressure 74 mm[Hg] Dr. Coy Nath Work Phone: [facility] 05-13-2023 15:30-0400 Heart rate 86 /min Dr. Coy Nath Work Phone: [facility] 05-13-2023 15:30-0400 Respiratory rate 17 /min Dr. Coy Nath Work Phone: [facility] 05-13-2023 15:30-0400 SaO2% (BldA) [Mass fraction] 95 % Dr. Coy Nath Work Phone: [facility] 05-13-2023 15:30-0400 Systolic blood pressure 174 mm[Hg] Dr. Coy Nath Work Phone: [facility] 05-06-2023 14:11-0400 Body mass index (BMI) [Ratio] 27.4 kg/m2 Dr. Coy Nath Work Phone: [facility] 05-06-2023 14:11-0400 Body temperature 98 [degF] Dr. Coy Nath Work Phone: [facility] 05-06-2023 14:11-0400 Body weight 68.[address] Coy Nath Work Phone: [facility] 05-06-2023 14:11-0400 Diastolic blood pressure 80 mm[Hg] Dr. Coy Nath Work Phone: [facility] 05-06-2023 14:11-0400 Heart rate 63 /min Dr. Coy Nath Work Phone: [facility] 05-06-2023 14:11-0400 Respiratory rate 16 /min Dr. Coy Nath Work Phone: [facility] 05-06-2023 14:11-0400 SaO2% (BldA) [Mass fraction] 96 % Dr. Coy Nath Work Phone: [facility] 05-06-2023 14:11-0400 Systolic blood pressure 124 mm[Hg] Dr. Coy Nath Work Phone: [facility] 02-10-2023 11:26-0400 Body height 157.[address] Coy Nath Work Phone: [facility] 02-10-2023 11:26-0400 Body mass index (BMI) [Ratio] 28.3 kg/m2 Dr. Coy Nath Work Phone: [facility] 02-10-2023 11:26-0400 Body temperature 97.3 [degF] Dr. Coy Nath Work Phone: [facility] 02-10-2023 11:26-0400 Body weight 70.[address] Coy Nath Work Phone: [facility] 02-10-2023 11:26-0400 Diastolic blood pressure 86 mm[Hg] Dr. Coy Nath Work Phone: [facility] 02-10-2023 11:26-0400 Heart rate 72 /min Dr. Coy Nath Work Phone: [facility] 02-10-2023 11:26-0400 Respiratory rate 16 /min Dr. Coy Nath Work Phone: [facility] 02-10-2023 11:26-0400 SaO2% (BldA) [Mass fraction] 96 % Dr. Coy Nath Work Phone: [facility] 02-10-2023 11:26-0400 Systolic blood pressure 180 mm[Hg] Dr. Coy Nath Work Phone: [facility] 12-31-2021 13:57-0400 Body height 157.[address] Coy Nath Work Phone: [facility] Work Phone: 12-31-2021 13:57-0400 Body mass index (BMI) [Ratio] 28.5 kg/m2 Dr. Coy Nath Work Phone: [facility] Work Phone: 12-31-2021 13:57-0400 Body temperature 97.8 [degF] Dr. Coy Nath Work Phone: [facility] Work Phone: 12-31-2021 13:57-0400 Body weight 70.[address] Coy Nath Work Phone: [facility] Work Phone: 12-31-2021 13:57-0400 Diastolic blood pressure 72 mm[Hg] Dr. Coy Nath Work Phone: [facility] Work Phone: 12-31-2021 13:57-0400 Heart rate 96 /min Dr. Coy Nath Work Phone: [facility] Work Phone: 12-31-2021 13:57-0400 Respiratory rate 14 /min Dr. Coy Nath Work Phone: [facility] Work Phone: 12-31-2021 13:57-0400 SaO2% (BldA) [Mass fraction] 99 % Dr. Coy Nath Work Phone: [facility] Work Phone: 12-31-2021 13:57-0400 Systolic blood pressure 136 mm[Hg] Dr. Coy Nath Work Phone: [facility] Work Phone: 10-24-2021 12:38-0500 Body mass index (BMI) [Ratio] 28.5 kg/m2 Dr. Coy Nath Work Phone: [facility] Work Phone: 10-24-2021 12:38-0500 Body temperature 98.5 [degF] Dr. Coy Nath Work Phone: [facility] Work Phone: 10-24-2021 12:38-0500 Body weight 70.[address] Coy Nath Work Phone: [facility] Work Phone: 10-24-2021 12:38-0500 Diastolic blood pressure 82 mm[Hg] Dr. Coy Nath Work Phone: [facility] Work Phone: 10-24-2021 12:38-0500 Heart rate 76 /min Dr. Coy Nath Work Phone: [facility] Work Phone: 10-24-2021 12:38-0500 Respiratory rate 14 /min Dr. Coy Nath Work Phone: [facility] Work Phone: 10-24-2021 12:38-0500 SaO2% (BldA) [Mass fraction] 97 % Dr. Coy Nath Work Phone: [facility] Work Phone: 10-24-2021 12:38-0500 Systolic blood pressure 156 mm[Hg] Dr. Coy Nath Work Phone: [facility] Work Phone: Encounters Encounter Date Encounter Type Care Provider Facility Start: 05-02-2025 ambulatory George Guzmán Facility :[facility] Start: 03-22-2025 End: 03-22-2025 Patient encounter procedure Bárbara LONGORIA -[facility] Work Phone: Start: 03-22-2025 End: 03-22-[address] Coy Nath DO Work Phone: -[facility] Start: 01-10-2025 End: 01-10-[address] Coy Alfonso DO -[facility] Work Phone: Start: 01-10-2025 End: 01-10-[address] Coy Nath DO Work Phone: [facility] Work Phone: Start: 12-19-2024 End: 12-19-2024 Patient encounter procedure Bárbara LONGORIA -[facility] Work Phone: Start: 12-19-2024 End: 12-19-2024 ambulatory Bárbara Logan Facility:[facility] Start: 11-22-2024 End: 11-22-[address] Coy Nath DO Work Phone: [facility] Work Phone: Start: 11-22-2024 End: 11-22-2024 Patient encounter procedure Bárbara LONGORIA -Laboratory, [facility] Work Phone: Start: 11-22-2024 End: 11-22-2024 ambulatory Bárbara Logan Facility:[facility] Start: 11-18-2024 End: 11-18-[address] Coy Nath DO Work Phone: [facility] Work Phone: Start: 11-18-2024 End: 11-18-2024 Patient encounter procedure Bárbara LONGORIA -Laboratory Work Phone: Start: 11-17-2024 End: 11-17-2024 Patient encounter procedure Bárbara LONGORIA -[facility] Work Phone: Start: 11-17-2024 End: 11-18-2024 ambulatory Bárbara Logan Facility:[facility] Start: 10-25-2024 End: 10-25-[address] Coy Alfonso DO -[facility] Work Phone: Start: 10-25-2024 End: 10-25-[address] Coy Nath DO Work Phone: [facility] Work Phone: Start: 10-25-2024 End: 10-25-2024 ambulatory Coy Nath Facility:[facility] Start: 10-11-2024 End: 10-11-[address] Coy Nath DO Work Phone: [facility] Work Phone: Start: 10-11-2024 End: 10-11-[address] Coy Alfonso DO -Laboratory, [facility] Work Phone: Start: 10-11-2024 End: 10-11-[address] Coy Alfonso DO -[facility] Work Phone: Start: 10-11-2024 End: 10-11-2024 ambulatory Coy Nath Facility:[facility] Start: 10-11-2024 End: 10-11-2024 ambulatory Coy Nath Facility:[facility] Start: 10-05-2024 End: 10-05-[address] Emily Madrigal MD -[facility] Work Phone: Start: 10-05-2024 End: 10-05-2024 ambulatory Emily Madrigal Facility:[facility] Start: 09-29-2024 Encounter for other preprocedural examination Emily Madrigal [facility] Start: 09-18-2024 End: 09-18-2024 Patient encounter procedure Nandini Grant PA-C -Laboratory, [facility] Work Phone: Start: 09-18-2024 End: 09-18-2024 ambulatory Coy Kaden Nath Facility:[facility] Start: 09-06-2024 End: 09-06-2024 Patient encounter procedure Nandini Grant PA-C -[facility] Work Phone: Start: 09-06-2024 End: 09-06-2024 ambulatory Coyabelino Nath Facility:[facility] Start: 08-29-2024 Non-patient / Non-visit Nandini Grant PA-C -[facility] Start: 08-28-2024 End: 08-29-2024 ambulatory Emily Madrigal Facility:[facility] Start: 08-28-2024 End: 08-29-2024 Evaluation and management of inpatient Dr. Emily Madrigal MD -[facility] Work Phone: Start: 08-28-2024 ambulatory Emily Madrigal Facility: [facility] Start: 08-28-2024 Non-patient / Non-visit Dr. Rosy Madrigal MD -[facility] Start: 08-22-2024 End: 08-22-2024 ambulatory Emily Madrigal Facility:[facility] Start: 08-22-2024 End: 08-22-2024 Non-patient / Non-visit Dr. Emily Leyva MD -[facility] Work Phone: Start: 07-27-2024 End: 07-27-2024 Patient encounter procedure Imtiaz LONGORIA -Radiology, [place] Work Phone: Start: 07-27-2024 End: 07-27-2024 Patient encounter procedure Imtiaz LONGORIA -[facility] Work Phone: Start: 07-27-2024 End: 07-27-2024 ambulatory Coy Kaden Nath Facility:[facility] Start: 07-27-2024 End: 07-27-2024 ambulatory Coy Nath Facility:[facility] Start: 07-04-2024 End: 07-04-[address] Emily Madrigal MD -[facility] Work Phone: Start: 07-04-2024 End: 07-04-2024 ambulatory Emily Madrigal Facility:[facility] Start: 06-15-2024 End: 06-15-2024 ambulatory Keisha Simonssabrina Facility:[facility] Start: 06-15-2024 End: 06-15-2024 ambulatory Keishawisam Adamsono Facility:[facility] Start: 06-01-2024 End: 06-01-2024 Emergency department patient visit Reinier Toney Facility:[facility] Start: 06-01-2024 End: 06-01-2024 ambulatory Brock Wynn Facility:[facility] Start: 06-01-2024 End: 06-01-2024 ambulatory Brock Wynn Facility:[facility] Start: 10-26-2023 End: 10-26-2023 Office outpatient visit 10 minutes Mal Phipps MD Work Phone: [facility] Comment on above: Atrial fibrillation, unspecified type (CMS/HCC) (Primary Dx); Aortic valve sclerosis; Mixed hyperlipidemia Start: 10-26-2023 End: 10-26-2023 ambulatory MAL PHIPPS [facility] Start: 09-29-2023 End: 09-29-[address] Coy Nath Work Phone: [facility] Work Phone: Start: 09-29-2023 End: 09-29-[address] Coy Nath Work Phone: [facility] Work Phone: Start: 08-30-2023 End: 09-15-[address] Coy Nath Work Phone: [facility] Work Phone: Start: 08-30-2023 End: 09-15-[address] [facility] Start: 08-18-2023 End: 08-18-[address] Coy Nath Work Phone: [facility] Work Phone: Start: 07-21-2023 End: 08-15-[address] Coy Nath Work Phone: [facility] Work Phone: Start: 07-21-2023 End: 08-15-[address] Coy Nath Work Phone: [facility] [place] Start: 07-21-[address] Alfred Nath Work Phone: [facility] [place] Start: 07-21-2023 End: 07-21-[address] Coy Nath Work Phone: [facility] Work Phone: Start: 07-20-2023 End: 07-20-2023 Office outpatient visit 15 minutes Mal Phipps MD Work Phone: [facility] Comment on above: Atrial fibrillation, unspecified type (CMS/HCC) (Primary Dx); Aortic valve sclerosis; Mixed hyperlipidemia Start: 07-20-2023 End: 07-20-2023 ambulatory MAL HPIPPS [facility] Start: 07-09-2023 End: 07-09-2023 Emergency department patient visit Dr. Coy Nath Work Phone: [facility]-Emergency Department Work Phone: Start: 07-05-2023 End: 07-05-2023 Emergency department patient visit BALDEV KULKARNI MD Facility:B Start: 07-05-2023 End: 07-05-2023 Emergency department patient visit BALDEV KULKARNI MD [facility] Start: 07-01-2023 End: 07-01-[address] Coy Nath Work Phone: [facility] Work Phone: Start: 07-01-2023 End: 07-01-[address] Coy Nath Work Phone: [facility]-Laboratory, BIM Start: 07-01-2023 End: 07-01-[address] Coy Nath Work Phone: [facility] Internal Medicine Work Phone: Start: 06-25-2023 End: 07-28-2023 ambulatory COY NATH DO Facility:R Start: 06-24-2023 End: 06-24-2023 Subsequent hospital visit by physician Leonarda [id number] Cr [id number] Holter/Ecg Resource [facility] [place] Comment on above: Arrived Start: 06-24-2023 End: 06-24-2023 ambulatory DESEAN CORTES [facility] Start: 06-08-2023 End: 06-23-2023 [facility] and management [facility] Start: 06-08-2023 Non-patient / Non-visit Dr. Chaudhari Work Phone: [facility] Start: 06-08-2023 Non-patient / Non-visit Dr. Chaudhair Work Phone: [facility] Inpatient Physicians Work Phone: Start: 06-07-2023 Non-patient / Non-visit Dr. Chaudhari Work Phone: [facility] Inpatient Physicians Work Phone: Start: 06-07-2023 End: 06-08-2023 Evaluation and management of inpatient Dr. Coy Nath Work Phone: [facility]-Progressive Care Unit Work Phone: Start: 06-07-2023 End: 06-07-[address] Coy Nath Work Phone: [facility] Work Phone: Start: 06-07-2023 End: 06-07-[address] Coy Nath Work Phone: [facility]-Laboratory, BIM Start: 06-07-2023 End: 06-07-[address] Coy Nath Work Phone: [facility] Internal Medicine Work Phone: Start: 06-03-[address] [facility] Start: 05-26-2023 Non-patient / Non-visit Dr. Chaudhari Work Phone: [facility] Start: 05-25-2023 End: 05-26-2023 Evaluation and management of inpatient Dr. Coy Nath Work Phone: [facility]-Progressive Care Unit Work Phone: Start: 05-25-2023 End: 05-25-[address] Coy Nath Work Phone: [facility] Work Phone: Start: 05-25-2023 End: 05-25-[address] Coy Nath Work Phone: [facility] Work Phone: Start: 05-13-2023 End: 05-13-[address] Coy Nath Work Phone: [facility] Work Phone: Start: 05-06-2023 End: 05-06-[address] Coy Nath Work Phone: [facility] Internal Medicine Work Phone: Start: 02-10-2023 End: 02-10-[address] Coy Nath Work Phone: [facility] Work Phone: Start: 02-10-2023 End: 02-10-[address] Coy Nath Work Phone: [facility]-Laboratory, Specimen Work Phone: Start: 02-10-2023 End: 02-10-[address] Coy Nath Work Phone: [facility] Work Phone: Start: 12-31-2021 End: 12-31-[address] Coy Nath Work Phone: [facility] Internal Medicine Start: 10-24-2021 End: 10-24-[address] Coy Nath Work Phone: [facility]-Laboratory, Specimen Procedures Date Procedure Procedure Detail Performing Clinician Start: 11-22-2024 End: 11-22-2024 Giardia lamblia antigen assay Dr. Roger Nath DO Work Phone: Start: 11-22-2024 Ova OR parasites identification Dr. Coy Nath DO Work Phone: Start: 11-22-2024 Ova&parasites direct smears concentration & id Dr. Coy Nath DO Work Phone: Start: 11-18-2024 Clostridium diff[address] e detection Dr. Coy Nath DO Work Phone: Start: 10-11-2024 SARS-CoV-2, Influenz a & RSV (PCR) Dr. Coy Nath DO Work Phone: Start: 09-18-2024 Iadna-dna/rna gi pth gn multiplex probe tq 6-11 Dr. Coy Nath DO Work Phone: Start: 09-18-[address] Coy Nath DO Work Phone: Start: 09-18-2024 Measurement of occul t blood in stool specimen using immunoassay Dr. Coy Nath DO Work Phone: Start: 09-18-[address] Coy Nath DO Work Phone: Start: 08-22-2024 Methicillin resistan t Staphylococcus aureus screening test Dr. Coy Nath DO Work Phone: Start: 07-27-2024 X-ray of chest, PA a nd lateral views Dr. Coy Nath DO Work Phone: Start: 10-26-2023 FOLLOW UP IN CARDIOLOGY MAL PHIPPS Start: 06-24-2023 ECG 12-LEAD CLARI MUHAMMAD Start: 06-24-2023 End: 06-24-2023 Ecg routine ecg w/least 12 lds trcg only w/o i&r Desean Antonio Devoonomra PA-C Work Phone: Start: 06-23-2023 HOLTER OR EVENT CARD IAC MONITOR CLARI JUDIT Start: 06-23-2023 DISCHARGE PATIENT JUAN JOSE Chetna JEFFERS Start: 06-23-2023 Heparin assay CLARI NING MCDANIEL Start: 06-23-2023 CBC panel - Blood by Automated count CLARI JEFFERS Start: 06-23-2023 COAGULATION SCREEN CHRISTOPH IRASEMA JUDIT Start: 06-23-2023 Magnesium [Mass/volu me] in Serum or Plasma CLARI JEFFERS Start: 06-23-2023 RENAL FUNCTION PANEL IVONNE JUDIT Start: 06-22-2023 CBC panel - Blood by Automated count CLARI JEFFERS Start: 06-22-2023 COAGULATION SCREEN CHRISTOPH JEFFERS Start: 06-22-2023 Heparin assay CLARI MCDANIEL Start: 06-22-2023 Magnesium [Mass/volu me] in Serum or Plasma CLARI JEFFERS Start: 06-22-2023 RENAL FUNCTION PANEL IVONNE JUDIT Start: 06-21-2023 Heparin assay CLARI MCDANIEL Start: 06-21-2023 CBC panel - Blood by Automated count CLARI JEFFERS Start: 06-21-2023 COAGULATION SCREEN CHRISTOPH JEFFERS Start: 06-21-2023 Heparin assay CLARI MCDANIEL Start: 06-21-2023 Magnesium [Mass/volu me] in Serum or Plasma CLARI JEFFERS Start: 06-21-[address] IVONNE JEFFERS Start: 06-20-2023 CBC panel - Blood by Automated count CLARI JUDIT Start: 06-20-2023 COAGULATION SCREEN CHRISTOPH JEFFERS Start: 06-20-2023 Heparin assay CLARI FI LBY Start: 06-20-2023 Magnesium [Mass/volu me] in Serum or Plasma CLARI JUDIT Start: 06-20-[address] IVONNE JEFFERS Start: 06-19-2023 Heparin assay CLARI FI LBY Start: 06-19-2023 Heparin assay CLARI FI LBY Start: 06-19-2023 CBC panel - Blood by Automated count CLARI JEFFERS Start: 06-19-2023 COAGULATION SCREEN CHRISTOPH VILLALPANDO JUDIT Start: 06-19-2023 Heparin assay CLARI FI WADEY Start: 06-19-2023 Magnesium [Mass/volu me] in Serum or Plasma CLARI JEFFERS Start: 06-19-[address] IVONNE JEFFERS Start: 06-18-[address] IVONNE JEFFERS Start: 06-18-2023 CBC panel - Blood by Automated count CLARI JFEFERS Start: 06-18-2023 COAGULATION SCREEN CHRISTOPH CHOWDHURYJB Start: 06-18-2023 Heparin assay CLARI BARCLAY WADEAlmaz Start: 06-18-2023 Magnesium [Mass/volu me] in Serum or Plasma CLARI JEFFERS Start: 06-18-[address] IVONNE JEFFERS Start: 06-17-2023 C. DIFFICILE, PCR JUAN JOSE JEFFERS Start: 06-17-2023 CBC panel - Blood by Automated count CLARI JEFFERS Start: 06-17-2023 Magnesium [Mass/volu me] in Serum or Plasma CLARI JEFFERS Start: 06-17-[address] IVONNE JEFFERS Start: 06-17-2023 Heparin assay CLARI FI WADEY Start: 06-17-2023 Heparin assay CLARI FI WADEY Start: 06-16-2023 aPTT in Blood by Coa gulation assay CLARI JEFFERS Start: 06-16-2023 Heparin assay CLARI FI WADEY Start: 06-16-2023 Bacteria identified in Blood by Culture CLARI JEFFERS Start: 06-16-2023 CBC panel - Blood by Automated count CLARI JEFFERS Start: 06-16-2023 TRANSTHORACIC ECHO ( TTE) LIMITED CLARI JEFFERS Start: 06-16-2023 ECG 12-LEAD CLARI MUHAMMAD Start: 06-16-2023 CBC panel - Blood by Automated count CLARIIRASEMA JEFFERS Start: 06-16-2023 RENAL FUNCTION PANEL IVONNE CHOWDHURYJB Start: 06-16-2023 TRANSFUSE RED BLOOD CELLS CLARI JUDIT Start: 06-15-2023 IR EMBOLIZATION CLARI CHOWDHURYJB Start: 06-15-2023 ANTIBODY IDENTIFICATION CLARI JUDIT Start: 06-15-2023 PATH REVIEW-IMMUNOHEMATOLOGY CLARI JUDIT Start: 06-15-2023 TYPE AND SCREEN CLARI JUDIT Start: 06-15-2023 PREPARE RBC CLARI CHOWDHURY JB Start: 06-15-2023 CBC panel - Blood by Automated count CLARI JEFFERS Start: 06-15-2023 RENAL FUNCTION PANEL IVONNE CHOWDHURYJB Start: 06-14-2023 CBC panel - Blood by Automated count CLARIIRASEMA JEFFERS Start: 06-14-2023 CT ABDOMEN PELVIS W IV CONTRAST CLARI JEFFERS Start: 06-14-2023 IP CONSULT TO ELECTROPHYSIOLOGY CLARI JEFFERS Start: 06-14-2023 IP CONSULT TO ACUTE CARE SURGERY CLARI JEFFERS Start: 06-14-2023 FL MODIFIED BARIUM S WALLOW STUDY CLARI JUDIT Start: 06-14-2023 VEHICLE MECHANIC MODIFIED BARIUM SWALLOW EVALUATION CLARI JUDIT Start: 06-14-2023 CBC panel - Blood by Automated count CLARI JUDIT Start: 06-14-2023 Heparin assay CLARI FI LBY Start: 06-14-2023 Magnesium [Mass/volu me] in Serum or Plasma CLARI JEFFERS Start: 06-14-2023 RENAL FUNCTION PANEL IVONNE JUDIT Start: 06-13-2023 TRANSFER PATIENT TO NEW UNIT CLARI JUDIT Start: 06-13-2023 VEHICLE MECHANIC EVAL AND TREAT CHRISTOPH IRASEMA JEFFERS Start: 06-13-2023 ANTIBODY IDENTIFICATION CLARI JUDIT Start: 06-13-2023 PATH REVIEW-IMMUNOHEMATOLOGY CLARI JEFFERS Start: 06-13-2023 TYPE AND SCREEN CLARI JUDIT Start: 06-13-2023 CBC W Auto Different ial panel - Blood CLARI JEFFERS Start: 06-13-2023 Heparin assay CLARI FI LBY Start: 06-13-2023 Magnesium [Mass/volu me] in Serum or Plasma CLARI JEFFERS Start: 06-13-[address] IVONNE JEFFERS Start: 06-12-2023 TRANSESOPHAGEAL ECHO (ANABEL) CLARI JUDIT Start: 06-12-2023 XR CHEST 1 VIEW CLARI JUDIT Start: 06-12-2023 CBC panel - Blood by Automated count CLARI CHOWDHURYJB Start: 06-12-2023 CBC W Auto Different ial panel - Blood CLARI CHOWDHURYJB Start: 06-12-2023 Heparin assay CLARI BARCLAY JONAS Start: 06-12-2023 Magnesium [Mass/volu me] in Serum or Plasma CLARI CHOWDHURYJB Start: 06-12-[address] IVONNE JEFFERS Start: 06-11-2023 ELECTROLYTE PANEL, URINE CLARI JUDIT Start: 06-11-2023 LEGIONELLA ANTIGEN, URINE CLARI CHOWDHURYJB Start: 06-11-2023 MICROSCOPIC ONLY, URINE CLARI CHOWDHURYJB Start: 06-11-2023 OSMOLALITY, URINE JUAN JOSE Rubalcava JUDIT Start: 06-11-2023 STREPTOCOCCUS PNEUMO NIAE ANTIGEN, URINE CLARI CHOWDHURYJB Start: 06-11-2023 URINALYSIS WITH REFL EX MICROSCOPIC CLARI CHOWDHURYJB Start: 06-11-2023 Comprehensive metabo lic 2000 panel - Serum or Plasma CLARI JUDIT Start: 06-11-2023 Magnesium [Mass/volu me] in Serum or Plasma CLARI JEFFERS Start: 06-11-2023 Osmolality of Serum or Plasma CLARI CHOWDHURYJB Start: 06-11-2023 Phosphate [Mass/volu me] in Serum or Plasma CLARI JUDIT Start: 06-11-2023 CT ABDOMEN PELVIS W IV CONTRAST CLARI JEFFERS Start: 06-11-2023 BLOOD GAS LACTIC ACI D, ARTERIAL CLARI CHOWDHURYJB Start: 06-11-2023 CBC panel - Blood by Automated count CLARI CHOWDHURYJB Start: 06-11-[address] IVONNE CHOWDHURYJB Start: 06-11-2023 Bacteria identified in Blood by Culture CLARI JEFFERS Start: 06-11-2023 XR CHEST 1 VIEW CLARIIRASEMA JEFFERS Start: 06-11-2023 CBC panel - Blood by Automated count CLARI JEFFERS Start: 06-11-2023 Comprehensive metabo lic 2000 panel - Serum or Plasma CLARI JEFFERS Start: 06-11-2023 Heparin assay CLARI MCDANIEL Start: 06-11-2023 Magnesium [Mass/volu me] in Serum or Plasma CLARI CHOWDHURYJB Start: 06-11-2023 Osmolality of Serum or Plasma CLARI JUDIT Start: 06-10-2023 XR CHEST 1 VIEW CLARI JUDIT Start: 06-10-2023 XR FOOT LEFT 3+ VIEWS S VIOLET JEFFERS Start: 06-10-2023 CBC panel - Blood by Automated count CLARI JUDIT Start: 06-10-2023 Comprehensive metabo lic 1999 panel - Serum or Plasma CLARI JUDIT Start: 06-10-2023 Heparin assay CLARI MCDANIEL Start: 06-10-2023 Magnesium [Mass/volu me] in Serum or Plasma CLARI JUDIT Start: 06-10-2023 SERIAL TROPONIN, 1 HOUR CLARI JUDIT Start: 06-09-2023 Heparin assay CLAIR MCDANIEL Start: 06-09-2023 STAPHYLOCOCCUS AUREU S/MRSA COLONIZATION, CULTURE CLARI JUDIT Start: 06-09-2023 TRANSTHORACIC ECHO ( TTE) COMPLETE CLARI JEFFERS Start: 06-09-[address] CORONADO JUDIT Start: 06-09-2023 Heparin assay CLARI MCDANIEL Start: 06-09-2023 Bacteria identified in Blood by Culture CLARIIRASEMA JEFFERS Start: 06-09-2023 PT EVAL AND TREAT JUAN JOSE JEFFERS Start: 06-09-2023 RESPIRATORY VIRAL PANEL CLARI JUDIT Start: 06-09-2023 SARS-COV-2 PCR, SCRE EN ASYMPTOMATIC CLARI JUDIT Start: 06-09-2023 LEGIONELLA ANTIGEN, URINE CLARI JUDIT Start: 06-09-2023 STREPTOCOCCUS PNEUMO NIAE ANTIGEN, URINE CLARI JUDIT Start: 06-09-2023 TRANSTHORACIC ECHO ( TTE) LIMITED CLARI JUDIT Start: 06-09-2023 XR CHEST 1 VIEW CLARI JUDIT Start: 06-09-2023 CBC W Auto Different ial panel - Blood CLARI JEFFERS Start: 06-09-2023 COAGULATION SCREEN CHRISTOPH JEFFERS Start: 06-09-2023 Comprehensive metabo lic 1999 panel - Serum or Plasma CLARI JEFFERS Start: 06-09-2023 Lactate [Moles/volum e] in Serum or Plasma CLARI JEFFERS Start: 06-09-2023 Magnesium [Mass/volu me] in Serum or Plasma CLARI JEFFERS Start: 06-09-2023 Natriuretic peptide B [Mass/volume] in Blood CLARI JEFFERS Start: 06-09-2023 TROPONIN SERIES- (IN ITIAL, 1 HR) CLARI JEFFERS Start: 06-09-2023 BLOOD GAS ARTERIAL FULL PANEL CLARI JEFFERS Start: 06-09-2023 ADMIT TO INPATIENT CHRISTOPH JEFFERS Start: 06-09-2023 MEASURE HEIGHT CLARI Sevilla ILJB Start: 06-09-2023 PULSE OXIMETRY, CONTINUOUS CLARI JEFFERS Start: 06-09-2023 WEIGH PATIENT CLARI BARCLAY LBY Start: 06-08-2023 Legionella pneumophi la antigen assay Dr. Coy Nath Work Phone: Start: 06-08-[address] Coy Nath Work Phone: Start: 06-08-2023 Streptococcus pneumo niae Antigen (M Dr. Coy Nath Work Phone: Start: 06-08-[address] Alfred Nath Work Phone: Start: 06-07-2023 Bacteria identified in Blood by Culture Dr. Coy Nath Work Phone: Start: 06-07-2023 Plain chest X-ray Dr. Jagjit Nath Work Phone: Start: 05-26-2023 CT of chest without contrast Dr. Coy Nath Work Phone: Start: 05-25-2023 Legionella pneumophi la antigen assay Dr. Coy Nath Work Phone: Start: 05-25-2023 Streptococcus pneumo niae Antigen (M Dr. Coy Nath Work Phone: Start: 05-25-[address] Coy Nath Work Phone: Start: 05-25-2023 Plain chest X-ray Dr. Jagjit Nath Work Phone: Start: 02-10-[address] Alfred Nath Work Phone: Start: 10-24-[address] Alfred Nath Work Phone: H/O: hysterectomy BALDEV KULKARNI MD History of operative procedure on lumbar spinal structure BALDEV KULKARNI MD Plan of Treatment Date Care Activity Detail Author Start: 06-17-2026 DTaP/Tdap/Td Vaccines (2 - Td or Tdap) DTaP/Tdap/Td Vaccines (2 - Td or Tdap) [facility] Start: 11-22-2024 Giardia Antigen (GALA) Giardia Antigen (GALA) [facility] Start: 11-22-2024 Ova and Parasites Ova and Parasites [facility] Start: 11-22-2024 [facility] Start: 10-05-2024 Patient referral [facility] Work Phone: Start: 08-29-2024 Patient discharge [facility] Start: 08-28-2024 Following clinical pathway protocol [facility] Start: 08-28-2024 Ambulation therapy management [facility] Start: 08-28-2024 Application of ice collar, cap or bag [facility] Start: 08-28-2024 Elevation of head of bed [facility] Start: 08-28-2024 Incentive spirometry [facility] Start: 08-28-2024 [facility] Start: 08-28-2024 Admission procedure [facility] Start: 08-28-2024 Anesthesia hernia repair lower abdomen nos ANESTH REPAIR OF HERNIA [facility] Start: 08-28-2024 RPR AA HRN 1ST < 3 NCR/STRN RPR AA HRN 1ST < 3 NCR/STRN [facility] Start: 08-28-2024 Patient referral to dietitian [facility] Start: 10-26-2023 End: 10-26-2023 Patient encounter procedure 10/26/2023 3:45 PM EDT Office Visit [facility] [address] [facility] [address] [place] [id number] Mal Phipps MD [address] [facility] [address] [place], [place] [id number] [facility] Start: 08-12-2023 End: 08-12-2023 Patient encounter procedure 08/12/2023 8:30 AM EST Office Visit [facility] [place] [id number] [place] [address] [place] [address] [place] [address] [place] [address] [facility] Start: 07-20-2023 End: 07-20-2023 Patient encounter procedure 07/20/2023 11:00 AM EST Office Visit [facility] [address] [place] [phone] Mal Phipps MD [address] [place], [place] [id number] [facility] Start: 07-09-2023 [facility] Start: 06-15-2023 [facility] Start: 06-14-2023 [facility] Start: 06-13-2023 [facility] Start: 06-12-2023 [facility] Start: 06-11-2023 [facility] Start: 06-10-2023 [facility] Start: 06-09-2023 [facility] Start: 06-08-2023 Patient discharge [facility] Start: 06-08-2023 Streptococcus pneumoniae antigen assay [facility] Start: 06-08-2023 [facility] Start: 06-08-2023 Care planning and problem solving actions [facility] Start: 06-08-2023 Bacteria identified in Urine by Culture Urine Culture [facility] Start: 06-08-2023 Dual pressure spontaneous ventilation support [facility] Start: 06-08-2023 Inhalation therapy procedure [facility] Start: 06-07-2023 Ambulation without limitation [facility] Start: 06-07-2023 Assessment of risk of venous thromboembolism [facility] Start: 06-07-2023 Incentive spirometry [facility] Start: 06-07-2023 Insertion of catheter into peripheral vein [facility] Start: 06-07-2023 Measuring intake and output [facility] Start: 06-07-2023 Providing care according to standard [facility] Start: 06-07-2023 Referral to occupational therapist [facility] Start: 06-07-2023 Referral to service [facility] Start: 06-07-2023 [facility] Start: 06-07-2023 Blood culture [facility] Start: 06-07-2023 Following clinical pathway protocol [facility] Start: 06-07-2023 Oxygen therapy [facility] Start: 06-07-2023 Cardiac monitoring [facility] Start: 06-07-2023 Catheterization of vein [facility] Start: 06-07-2023 Continuous pulse oximetry [facility] Start: 06-07-2023 Enteric precautions [facility] Start: 06-07-20[address] Notification [address] [facility] Start: 06-07-2023 Leukocyte reduced red blood cells [facility] Start: 06-07-2023 End: 06-07-2023 [facility] Start: 06-07-2023 Hospital admission, emergency, from emergency room, medical nature [facility] Start: 06-07-2023 Admission procedure [facility] Start: 06-07-2023 Bacteria identified in Blood by Culture Blood Culture [facility] Start: 06-07-2023 [facility] Start: 06-02-2023 Blood chemistry [facility] Start: 06-01-2023 Blood chemistry [facility] Start: 05-31-2023 Blood chemistry [facility] Start: 05-30-2023 Blood chemistry [facility] Start: 05-29-2023 Blood chemistry [facility] Start: 05-28-2023 Blood chemistry [facility] Start: 05-27-2023 Blood chemistry [facility] Start: 05-26-2023 Patient discharge [facility] Start: 05-26-2023 Care planning and problem solving actions [facility] Start: 05-25-2023 End: 05-26-2023 [facility] Start: 05-25-2023 Ambulation without limitation [facility] Start: 05-25-2023 Insertion of catheter into peripheral vein [facility] Start: 05-25-2023 Measuring intake and output [facility] Start: 05-25-2023 Providing care according to standard [facility] Start: 05-25-2023 Care planning and problem solving actions [facility] Start: 05-25-2023 Admission procedure [facility] Start: 05-25-2023 Oxygen therapy [facility] Start: 05-25-2023 Following clinical pathway protocol [facility] Start: 04-16-2023 COVID-19 Vaccine () COVID-19 Vaccine () [facility] Start: 07-28-2022 COVID-19 Vaccine (3 - Moderna series) COVID-19 Vaccine (3 - Moderna series) [facility] Start: 06-11-2011 Zoster Vaccines (2 of 3) Zoster Vaccines (2 of 3) [facility] Start: 1999 Hepatitis B Vaccines (1 of 3 - Risk 3-dose series) Hepatitis B Vaccines (1 of 3 - Risk 3-dose series) [facility] Start: 1958 Hepatitis A Vaccines (1 of 2 - Risk 2-dose series) Hepatitis A Vaccines (1 of 2 - Risk 2-dose series) [facility] Start: 1945 Pneumococcal Vaccine: 65+ Years (1 - PCV) Pneumococcal Vaccine: 65+ Years (1 - PCV) [facility] Start: 1939 Lipid panel Lipid Panel [facility] Start: 1939 Medicare Annual Wellness Visit Medicare Annual Wellness Visit (AWV) [facility] Start: 1939 Screening for osteoporosis Bone Density Scan [facility] Start: 1939 Thyroid stimulating hormone measurement TSH Level [facility] Anion gap measurement [facility] Anion gap measurement [facility] Anion gap measurement [facility] Anion gap measurement [facility] Bilirubin measuremen t, urine [facility] Blood culture [facility] BUN/Creatinine ratio [facility] BUN/Creatinine ratio [facility] BUN/Creatinine ratio [facility] BUN/Creatinine ratio [facility] BUN/Creatinine ratio [facility] BUN/Creatinine ratio [facility] BUN/Creatinine ratio [facility] Calcium [Mass/volume ] in Serum or Plasma [facility] Calcium [Mass/volume ] in Serum or Plasma [facility] Calcium [Mass/volume ] in Serum or Plasma [facility] Calcium [Mass/volume ] in Serum or Plasma [facility] Calcium [Mass/volume ] in Serum or Plasma [facility] Calcium [Mass/volume ] in Serum or Plasma [facility] Calcium [Mass/volume ] in Serum or Plasma [facility] Carbon dioxide, tota l [Moles/volume] in Serum or Plasma [facility] Carbon dioxide, tota l [Moles/volume] in Serum or Plasma [facility] Carbon dioxide, tota l [Moles/volume] in Serum or Plasma [facility] Carbon dioxide, tota l [Moles/volume] in Serum or Plasma [facility] Carbon dioxide, tota l [Moles/volume] in Serum or Plasma [facility] Carbon dioxide, tota l [Moles/volume] in Serum or Plasma [facility] Carbon dioxide, tota l [Moles/volume] in Serum or Plasma [facility] Cardiac event recording [facility] Chloride [Moles/volu me] in Serum or Plasma [facility] [facility] Chloride [Moles/volu me] in Serum or Plasma [facility] Chloride [Moles/volu me] in Serum or Plasma [facility] Chloride [Moles/volu me] in Serum or Plasma [facility] Chloride [Moles/volu me] in Serum or Plasma [facility] Chloride [Moles/volu me] in Serum or Plasma [facility] Chloride [Moles/volu me] in Serum or Plasma [facility] Clostridioides diffi cile DNA [Presence] in Unspecified specimen by ROBY with probe detection [facility] Creatinine [Moles/vo lume] in Serum or Plasma [facility] Creatinine [Moles/vo lume] in Serum or Plasma [facility] Creatinine [Moles/vo lume] in Serum or Plasma [facility] Creatinine [Moles/vo lume] in Serum or Plasma [facility] Creatinine [Moles/vo lume] in Serum or Plasma [facility] Creatinine [Moles/vo lume] in Serum or Plasma [facility] Creatinine [Moles/vo lume] in Serum or Plasma [facility] Giardia lamblia Ag [Presence] in Stool by Immunoassay [facility] Giardia lamblia anti gen assay [facility] Glucose [Mass/volume ] in Serum or Plasma [facility] Glucose [Mass/volume ] in Serum or Plasma [facility] Glucose [Mass/volume ] in Serum or Plasma [facility] Glucose [Mass/volume ] in Serum or Plasma [facility] Glucose [Mass/volume ] in Serum or Plasma [facility] Glucose [Mass/volume ] in Serum or Plasma [facility] Glucose [Mass/volume ] in Serum or Plasma [facility] Hematocrit [Volume Fraction] of Blood [facility] Hematocrit [Volume Fraction] of Blood [facility] Hematocrit [Volume Fraction] of Blood [facility] Hematocrit [Volume Fraction] of Blood [facility] Hematocrit [Volume Fraction] of Blood [facility] Hematocrit [Volume Fraction] of Blood [facility] Hematocrit [Volume Fraction] of Blood [facility] Hemoglobin [Mass/vol ume] in Blood [facility] Hemoglobin [Mass/vol ume] in Blood [facility] Hemoglobin [Mass/vol ume] in Blood [facility] Hemoglobin [Mass/vol ume] in Blood [facility] Hemoglobin [Mass/vol ume] in Blood [facility] Hemoglobin [Mass/vol ume] in Blood [facility] Hemoglobin [Mass/vol ume] in Blood [facility] Hemoglobin [Presence ] in Urine [facility] Leukocytes [#/volume ] in Blood [facility] Leukocytes [#/volume ] in Blood [facility] Leukocytes [#/volume ] in Blood [facility] Leukocytes [#/volume ] in Blood [facility] Leukocytes [#/volume ] in Blood [facility] Leukocytes [#/volume ] in Blood [facility] Leukocytes [#/volume ] in Blood [facility] Mean corpuscular hemoglobin concentration determination [facility] Mean corpuscular hemoglobin concentration determination [facility] Mean corpuscular hemoglobin concentration determination [facility] Mean corpuscular hemoglobin concentration determination [facility] Mean corpuscular hemoglobin concentration determination [facility] Mean corpuscular hemoglobin concentration determination [facility] Mean corpuscular hemoglobin concentration determination [facility] Mean corpuscular hemoglobin determination [facility] Mean corpuscular hemoglobin determination [facility] Mean corpuscular hemoglobin determination [facility] Mean corpuscular hemoglobin determination [facility] Mean corpuscular hemoglobin determination [facility] Mean corpuscular hemoglobin determination [facility] Mean corpuscular hemoglobin determination [facility] Measurement of keton es in urine using dipstick [facility] Measurement of renal function [facility] Measurement of renal function [facility] Measurement of renal function [facility] Measurement of renal function [facility] Measurement of renal function [facility] Measurement of renal function [facility] Measurement of renal function [facility] Microscopic urinalysis [facility] Neutrophil count [facility] Neutrophil count [facility] Neutrophil count [facility] Neutrophil count [facility] Neutrophil count [facility] Neutrophil count [facility] Neutrophil count [facility] Neutrophil percent differential count [facility] Neutrophil percent differential count [facility] Neutrophil percent differential count [facility] Neutrophil percent differential count [facility] Neutrophil percent differential count [facility] Neutrophil percent differential count [facility] Neutrophil percent differential count [facility] Ova OR parasites identification [facility] Ova OR parasites identification [facility] Patient Education [facility] Work Phone: Patient referral [facility] Work Phone: pH of Urine [facility] Platelets [#/volume] in Blood [facility] Platelets [#/volume] in Blood [facility] Platelets [#/volume] in Blood [facility] Platelets [#/volume] in Blood [facility] Platelets [#/volume] in Blood [facility] Platelets [#/volume] in Blood [facility] Platelets [#/volume] in Blood [facility] Potassium [Moles/vol ume] in Serum or Plasma [facility] Potassium [Moles/vol ume] in Serum or Plasma [facility] Potassium [Moles/vol ume] in Serum or Plasma [facility] Potassium [Moles/vol ume] in Serum or Plasma [facility] Potassium [Moles/vol ume] in Serum or Plasma [facility] Potassium [Moles/vol ume] in Serum or Plasma [facility] Potassium [Moles/vol ume] in Serum or Plasma [facility] Protein measurement [facility] Red blood cell count [facility] Red blood cell count [facility] Red blood cell count [facility] Red blood cell count [facility] Red blood cell count [facility] Red blood cell count [facility] Red blood cell count [facility] Red cell distributio n width determination [facility] Red cell distributio n width determination [facility] Red cell distributio n width determination [facility] Red cell distributio n width determination [facility] Red cell distributio n width determination [facility] Red cell distributio n width determination [facility] Red cell distributio n width determination [facility] Sodium [Moles/volume ] in Serum or Plasma [facility] Sodium [Moles/volume ] in Serum or Plasma [facility] Sodium [Moles/volume ] in Serum or Plasma [facility] Sodium [Moles/volume ] in Serum or Plasma [facility] Sodium [Moles/volume ] in Serum or Plasma [facility] Sodium [Moles/volume ] in Serum or Plasma [facility] Sodium [Moles/volume ] in Serum or Plasma [facility] Specific gravity of Urine [facility] Urea nitrogen [Mass/volume] in Serum or Plasma [facility] Urea nitrogen [Mass/volume] in Serum or Plasma [facility] Urea nitrogen [Mass/volume] in Serum or Plasma [facility] Urea nitrogen [Mass/volume] in Serum or Plasma [facility] Urea nitrogen [Mass/volume] in Serum or Plasma [facility] Urea nitrogen [Mass/volume] in Serum or Plasma [facility] Urea nitrogen [Mass/volume] in Serum or Plasma [facility] Urinalysis, blood, qualitative [facility] Urine dipstick for glucose [facility] Urine dipstick for leukocyte esterase [facility] Urine dipstick for nitrite [facility] Urine dipstick for protein [facility] Urine examination [facility] Urine microscopy: epithelial cells [facility] Urine Microscopy: wh ite cells [facility] Urobilinogen [Presen ce] in Urine [facility] [place] Immunization Date Immunization Notes Care Provider Fa cility 05-06-2023 influenza, injectabl e, quadrivalent, preservative free Dr. Coy Nath Work Phone: [facility] 06-02-2022 Covid Pfizer Bivalen t Booster Dr. Coy Nath Work Phone: [facility] 06-02-2022 influenza, injectabl e, quadrivalent, preservative free Dr. Coy Nath Work Phone: [facility] 06-05-2021 influenza, injectabl e, quadrivalent, preservative free Dr. Coy Nath Work Phone: [facility] 06-05-2021 influenza, seasonal, injectable Dr. Coy Nath Work Phone: [facility] 12-19-2020 Covid (Moderna) Dr. Coy Nath Work Phone: [facility] 11-21-2020 Covid (Moderna) Dr. Coy Nath Work Phone: [facility] 06-05-2020 influenza virus vaccine, unspecified formulation BALDEV KULKARNI MD [facility] Comment on above: Result Comment: [facility] 06-05-2020 influenza, injectabl e, quadrivalent, preservative free Dr. Coy Nath Work Phone: [facility] 07-08-2019 influenza virus vaccine, unspecified formulation BALDEV KULKARNI MD [facility] Comment on above: Result Comment[facility] 07-08-2019 Seasonal trivalent influenza vaccine, adjuvanted, preservative free Dr. Coy Nath Work Phone: [facility] 05-26-2018 Seasonal trivalent influenza vaccine, adjuvanted, preservative free Dr. Coy Nath Work Phone: [facility] 05-27-2017 Seasonal trivalent influenza vaccine, adjuvanted, preservative free Dr. Coy Nath Work Phone: [facility] 06-17-2016 tetanus toxoid, redu marissa diphtheria toxoid, and acellular pertussis vaccine, adsorbed BALDEV KULKARNI MD [facility] 05-28-2016 Influenza, high dose seasonal Dr. Coy Nath DO Work Phone: [facility] 05-28-2016 influenza, high dose seasonal, preservative-free Dr. Coy Nath Work Phone: [facility] 07-03-2015 Influenza, high dose seasonal Dr. Coy Nath DO Work Phone: [facility] 07-03-2015 influenza, high dose seasonal, preservative-free Dr. Coy Nath Work Phone: [facility] 08-13-2014 influenza, injectabl e, quadrivalent, preservative free Dr. Coy Nath Work Phone: [facility] 08-16-2012 Influenza, high dose seasonal Dr. Coy Nath DO Work Phone: [facility] 08-16-2012 influenza, high dose seasonal, preservative-free Dr. Coy Nath Work Phone: [facility] 04-16-2011 zoster vaccine, live Dr. Jenna Nath Work Phone: [facility] Payers Date Payer Category Payer Self-pay [id number] 2017 Medicare HU[employer]NA MEDICARE HU[employer]NA GOLD CHOICE [id number] 2017-Present [address] [address] [place] [address] [id number] 2013 Medicare [id number] 1940 Unknown [id number] [id number]7 1940 Unknown [id number] 2.16.840.1.687362.3.579.2.627 1940 Unknown [id number] 2.16.840.1.413458.3.579.2.124 5 1940 Unknown [id number] 2.16.840.1.631475.3.579.2.124 5 1940 Unknown [id number] 2.16.840.1.287641.3.579.2.124 5 1940 Unknown [id number] 2.16.840.1.634320.3.579.2.124 7 1940 Unknown [id number] 2.16.840.1.670066.3.579.2.124 7 Unknown [id number] 2.16.840.1.553906.3.579.2.462 Unknown [id number] 2.16.840.1.452160.3.579.2.462 Unknown [id number] 2.16.840.1.186254.3.579.2.462 Unknown [id number] 2.16.840.1.947571.3.579.2.462 Unknown [id number] 2.16.840.1.116324.3.579.2.462 Unknown [id number] 2.16.840.1.906485.3.579.2.462 Unknown [id number] 2.16.840.1.130941.3.579.2.462 Unknown [id number] 2.16.840.1.592200.3.579.2.462 Unknown [id number] 2.16.840.1.572801.3.579.2.462 Unknown [id number] 2.16.840.1.309948.3.579.2.462 Unknown [id number] 2.16.840.1.736714.3.579.2.462 Unknown [id number] 2.16.840.1.629404.3.579.2.462 Unknown [id number] 2.16.840.1.178110.3.579.2.462 Unknown [id number] 2.16.840.1.769349.3.579.2.462 Unknown [id number] 2.16.840.1.957733.3.579.2.462 Unknown [id number] 2.16.840.1.387459.3.579.2.462 Unknown [id number] 2.840.1.164527.3.579.2.462 Unknown [id number] 2.840.1.892798.3.579.2.462 Unknown [id number] 2.840.1.635271.3.579.2.462 Unknown [id number] 2.16840.1.955274.3.579.2.462 Unknown [id number] 2.16840.1.663568.3.579.2.462 Unknown [id number] 2.16840.1.708877.3.579.2.462 Unknown [id number] 2.16840.1.321546.3.579.2.462 Unknown [id number] 2.16840.1.558425.3.579.2.462 Unknown [id number] 2.16840.1.966103.3.579.2.462 Unknown [id number] 2.840.1.405129.3.579.2.462 Social History Date Type Detail Facility Start: 12-31-2021 End: 07-21-2023 Tobacco smoking status NHIS Unknown if ever smoked [facility] Start: 11-24-2016 None [facility] Start: 06-29-2017 With Family [facility] Start: 10-14-2017 Non-smoker [facility] Start: 1940 Sex Assigned At Female [facility] Start: 06-08-2023 End: 08-17-2024 Tobacco smoking status NHIS Never smoked tobacco [facility] Start: 06-08-2023 Tobacco use and exposure Smokeless tobacco non-user [facility] Work Phone: Start: 06-16-2023 End: 07-20-2023 Alcohol intake Lifetime non-drinker (finding) [facility] Work Phone: Start: 06-09-2023 End: 06-23-2023 History of Social function [facility] Start: 06-09-2023 End: 06-23-2023 [facility] Utilities [facility] Has the electric, gas, oil, or water [facility] threatened to shut off services in your home in past 12Mo No [facility] How often to you hav e a drink containing alcohol? Never [facility] Work Phone: How many standard drinks containing alcohol do you have on a typical day? Patient does not drink [facility] Work Phone: (I/We) worried whether (my/our) food would run out before (I/we) got money to buy more. Never true [facility] Work Phone: Start: 1940 Sex Assigned At Not on file U [facility] Work Phone: Start: 05-29-2023 End: 10-26-2023 Exposure to SARS-CoV-2 (event) Not sure [facility] Work Phone: Start: 10-31-2024 End: 11-27-2024 Sex Female (finding) [facility] NEGATED: Highlighted row Not [facility] Medical Equipment Procedure Code Equipment Code Equipment Origin al Text Equipment Identifier Dates Extra-gynaecolog ical surgical mesh, composite-polymer [id number] FDA Start: 08-28-2024 Goals Date Patient Goal Desired Activity /State Functional Status Date Assessment Result Facility 08-29-2024 Functional status Ambulates;Chair [facility] Work Phone: 07-05-2023 Functional Status Standard Safet y ID band on, Allergy Band on, Call device within reach, Bed in low position, Wheels locked, Upper/Half-Length side-rails up, Bedside Cart Locked, Safety level maintained [facility] 06-08-2023 Functional status Bedrest [facility] Work Phone: 05-26-2023 Functional status Ambulates;Bathroom Priv ilege [facility] Work Phone: Mental Status Date Assessment Result Facility 08-29-2024 Cognitive function Voice/Name [facility] Work Phone: 07-09-2023 Cognitive function Awake;Alert;Appropriat e [facility] Work Phone: 07-05-2023 Mental Status Orientation Oriented x 4 [facility] 06-08-2023 Cognitive function Voice/Name [facility] Work Phone: 05-26-2023 Cognitive function Voice/Name [facility] Work Phone: Clinical Notes 05-25-2023 to 01-10-2025 Note Date & Type Note Facility 01-10-2025 Progress note [facility] 01-10-2025 Progress note Note Date/Time January 10, 2025 10:06am [facility] [address] [place] [address] [place] [address] OFFICE VISIT Date of Service: 01/10/25 MR#: [id number] Acct: [id number] Name: MODESTA COOK Rep #: [id number] : 1940 Provider: Dr. 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 Required: No Is patient in pain?: No Allergies nitroglycerin Allergy (Mild, Verified 01/10/25 09:43) NEEDS FOLLOW-UP amiodarone Allergy (Verified 01/10/25 09:43) Rash chlorpheniramine (From Actifed Cold-Allergy) Adverse Reaction (Verified 01/10/2509:43) Other phenylephrine (From Actifed Cold-Allergy) Adverse Reaction (Verified 01/10/25 09:43) Other pseudoephedrine (From Actifed Cold-Allergy) Adverse Reaction (Verified 01/10/25 09:43) Other triprolidine (From Actifed Cold-Allergy) Adverse Reaction (Verified 01/10/25 09:43) Other Medications ?Medication ?Instructions ?Recorded ?Confirmed ?Type aspirin 81 mg tablet,delayed 81 mg PO DAILY HEART 11/1401/10/25 History release cetirizine 10 mg tablet (Zyrtec) 10 mg PO QHS allergy symptoms 06/07/23 01/10/25 History metoprolol succinate 25 mg 25 mg PO BID #180 tabs 04/1601/10/25 Rx tablet,extended release 24 hr pravastatin 40 mg tablet 40 mg PO QHS CHOLESTROL 01/10/1001/10/25 History pantoprazole 40 mg tablet,delayed 40 mg PO DAILY #90 t abs 10/11/24 01/10/25 Rx release valsartan 160 mg tablet 160 mg PO DAILY #90 tabs 01/10/25 Rx amlodipine 10 mg tablet 10 mg PO DAILY BP #90 tabs 0 10/25/24 01/10/25 Rx budesonide 3 mg 9 mg (3 x 3 mg) PO QAM 8 wee ks 11/29/24 12/19/24 Rx capsule,delayed,extended release #168 ea nitrofurantoin macrocrystal 50 mg 50 mg PO QHS #90 cap s 01/09/25 01/10/25 Rx capsule spironolactone 25 mg tablet 25 mg PO DAILY #90 tabs 01/10/25 Rx azithromycin 250 mg tablet See Rx Instructions PO .COM PLEX #6 01/10/25 01/10/25 Rx (Zithromax Z-Ken) tabs methylcellulose (with sugar) oral 1 tbsp PO BID 01/10/25 History powder (Citrucel (sucrose) oral powder) Have you fallen in the past year?: Yes (x1) PFSH Medical History Loss of hearing Wears glasses Wears dentures Anxiety Ambulates with cane Bladder disease Injury of head and neck Loss of consciousness Diarrhea Difficulty swallowing History of diverticulitis Gastric reflux Shortness of breath on exertion Leg cramps History of edema History of normal Holter exam History of echocardiogram History of stress test Cardiology follow-up encounter Non-smoker Chronic pain Atrial fibrillation Shortness of breath Cardiac murmur History of hemorrhoids Frequent headaches Chronic back pain History of stomach ulcers Arthritis Hyperlipemia Hypertension History of pneumonia Surgical History S/P spigelian hernia repair, follow-up exam History of cardiac catheterization Hx of colonoscopy History of esophagogastroduodenoscopy (EGD) History of tonsillectomy History of appendectomy History of hysterectomy History of back surgery History of foot surgery Family History Mother Diabetes Hypertension CVA (cerebral vascular accident) Father Myocardial infarction, Onset Age: 80 Brother Cancer Social History Smoking Status: Never smoker alcohol intake: never substance use type: does not use what type of physical activity do you participate in: walking frequency: daily HPI HPI Chief Complaint: congestion/drainage Details: MODESTA COOK, is a 84 F who presents to the office today for ROS Const Constitutional: Positive for headache(s); No body ache, chills, excessive sweating, fatigue, fever(s), frequent falls, snoring, weakness, sleep problems or change in appetite Eyes Eyes: No blurry vision, change in vision, eye pain or Light sensitivity ENT ENT: Positive for nasal congestion, headache(s) and other (sore throat ); No abnormal hearing, ear or mastoid pain, tinnitus, neck pain or sore throat Resp Respiratory: No cough, shortness of breath, snoring or wheezing Cardio Cardiology: No chest pain at rest, chest pain with exertion, excessive sweating,shortness of breath, dyspnea on exertion, lightheadedness, orthopnea or palpitations Gastro GI: No abdominal pain, change in bowel habits, constipation, cramping, diarrhea,nausea/dyspepsia or vomiting Genitourinary-Female: No burning urination, painful urination, urinary incontinence, urinary frequency, abnormal vaginal bleeding or pelvic pain Musc Musculoskeletal: No abnormal gait, joint pain, back pain, limited range of motion, neck pain or numbness Skin Skin: No dry skin, redness, lesions, itchy eyes, rash or wounds Neuro Neurology: Positive for headache(s); No abnormal gait, abnormal hearing, weakness, frequent falls, memory loss or numbness Psych Psychiatric: No anxiety, No change in appetite, No depression, No memory loss and No Thoughts of harming yourself/Others Endo Endocrine: Positive for other (sore throat ); No cold intolerance, excessive sweating, fatigue, flushing, heat intolerance, increased thirst/drinking or increased hunger Aller/Imm Allergy/Immunologic: No itchy eyes, seasonal allergy symptoms, hives or wheezing Kiet/Lymp Hematologic/Lymphatic: No easy bleeding, easy bruising, enlarged lymph nodes or other Exam Const General: cooperative and no acute distress Nutritional Appearance: average body habitus [facility] Head: normal to inspection Ears: hearing grossly normal bilaterally, TM's normal bilaterally and EAC's normal Nose: external nose normal and nasal discharge clear Face and sinus: sinus tenderness Mouth: oral mucosae normal Throat: postnasal drainage Eyes General: appearance normal, both eyes and all related structures Neck Neck: normal visual inspection Resp Effort & Inspection: normal respiratory effort Auscultation: Bilateral: Clear to Auscultation Cardio Rate: regular rate Rhythm: regular rhythm Skin General: no rashes or lesions noted Neuro General: patient alert Extrem General: normal to inspection Coding Level of Care Code Off vis,est,level 3 Diagnoses Sinusitis, acute frontal J01.10 Assessment and Plan Assessment and Plan (1) Sinusitis, acute frontal: Status: Acute Plan: Pt. has minimal physical findings, but she has had success with z-pack in the past. Medications: New azithromycin (Zithromax Z-Ken) For 250 mg dose pack: take 500 mg today (day 1), then 250 mg for 4 days (days 2-5) PO 6 tabs 0RF Clinical Quality Measures Falls Risk Screening/Assistive Devices Have you fallen in the past year?: Yes (x1) 01/10/25 1006 <Electronically signed by Coy ambriz DO> Date _ Coy Nath DO Cosigner Signature: Date (if applicable) CC: ~ [facility] Work Phone: 1(435) 679-491905-06-2025 Evaluation note* Diagnosis Onset Date Resolution Status Admit Date Constipation acute December 19 3:17pm Diarrhea acute December 19, 2024 3:17pm Sinusitis, acute frontal acute January 10, 2025 9:21am [facility] Work Phone: 1(367) 891-586002-20-2025 Evaluation note* Diagnosis Onset Date Resolution Status Admit Date Diarrhea acute October 05, 2024 2:43pm S/P spigelian hernia repair, follow-up exam acute October 05, 2 025 2:43pm Bronchitis chronic October 11, 2024 11:27am Elevated LFTs acute October 25, 2024 11:23am Exertional dyspnea acute October 25, 2024 11:23am Bronchitis chronic October 25 11:23am History of atrial fibrillation chronic October 25, 2024 11:23am Hypertension chronic October 25, 2024 11:23am Diarrhea acute November 17 3:18pm Difficulty swallowing acute Nov 3:18pm Non-specific colitis noneactive Apri l 2024 3:18pm Constipation acute December 19 3:17pm Diarrhea acute December 19, 2024 3:17pm Sinusitis, acute frontal acute January 10, 2025 9:21am [facility] Work Phone: 1(770) 494-193501-14-2025 [facility] Medical Records Department [address] [place] [address] Discharge Summary 08/29/24 1832 MR#: [id number] Acct: [id number] Name: MODESTA COOK Rep #: [id number] : 1940 84 From: Emily Madrigal MD PCP: Dr. Coy Nath, DO Status:DIS ROBERT Location: [facility] [id number] Providers Date of Admission: 08/28/24 Primary Care Physician: Dr. Coy Nath, DO Reason For Visit: Lap Robotic Ventral Hernia w/mesh poss lap Diagnosis Discharge Diagnosis (1) Hernia of abdominal wall: Status: Acute Code(s): K43.9 - Ventral hernia without obstruction or gangrene Medications at Discharge Home Medications aspirin 81 mg tablet,delayed release 81 mg PO DAILY HEART 11/24/16 cetirizine 10 mg tablet (Zyrtec) 10 mg PO QHS allergy symptoms 06/07/23 pantoprazole 40 mg tablet,delayed release 40 mg PO DAILY #90 tabs 04/11/24 metoprolol succinate 25 mg tablet,extended release 24 hr 25 mg PO BID #180 tabs 04/26/24 amlodipine 10 mg tablet 10 mg PO DAILY BP #90 tabs 06/30/24 spironolactone 25 mg tablet 25 mg PO DAILY #90 tabs 07/07/24 pravastatin 40 mg tablet 40 mg PO QHS CHOLESTROL 08/17/24 valsartan 160 mg tablet 160 mg PO DAILY 08/17/24 chlorhexidine gluconate 4 % topical liquid (Hibiclens) 1 applic topical DAILY 1 week #236 mL 08/24/24 mupirocin 2 % topical ointment 1 applic topical BID 1 week #15 grams 08/24/24 oxycodone 5 mg tablet 5 mg PO Q6H PRN pain 3 days #10 tabs 08/28/24 Hospital Course Operations herniorrhaphy (Left spigelian hernia repair via robotic approach 08/28/2024) Procedures None Summary of Care Provided Hospital Course: Patient 84-year-old female who underwent robot-assisted repair of left spigelian hernia mesh. Postoperatively she has been suboptimal pain control and doubted her ability to be successfully discharged so she was admitted under observation status. She was reevaluated postoperative day 1 feeling much improved. She described minor discomfort over her surgical site but was ambulating well. Her diet was advanced to an unrestricted diet upon reevaluation and she tolerated this advancement without difficulty. With these clinical improvements and at her request she was granted discharge to home with expectations for outpatient follow-up reviewed. Physical Exam Const alert, oriented x3 and no apparent distress Resp normal respiratory effort GI GI Narrative: Nondistended, surgical sites with dressings clean dry and intact, soft, appropriately tender about incision sites and left lower quadrant but of only mild intensity. Weight / BMI Weight Weight: 138 lb 14.259 oz Body Mass Index (BMI) 26.2 ABG / Lab / Microbiology Data 08/29/24 05:37 08/22/24 13:38 Laboratory: Laboratory Results - last 24 hr 08/29/24 05:37: WBC 16.3 H, RBC 3.62 L, Hgb 10.9 L, Hct 32.7 L, MCV 90.3, MCH 30.1, MCHC 33.3, RDW Std Deviation 45.9 H, RDW Coeff of Juve 13.9, Plt Count 289, MPV 9.2, Immature Gran % (Auto) 0.600, N eut % (Auto) 81.4 H, Lymph % (Auto) 13.1 L, [place] % (Auto) 4.7, Eos % (Auto) 0.0, Baso % (Auto) 0.2, Absolute Neuts (auto) 13.3 H, Absolute Lymphs (auto) 2.13, Nucleated RBC % 0 Microbiology: Microbiology 08/22/24 13:38 Swab (Method) Nasal Screen MRSA/MSSA - Final D/C Instructions Discharge Diet: No restrictions May shower in (days): 2 Ice area for (Minutes): 20 Call your doctor if your incision/area has: Continuous Slow Oozing, Increased Pain/ Swelling, Increased Redness, Foul Smelling Discharge and Swelling at the incision site Call your doctor if you observe: Fever of 101 or Higher, Inability to urinate and Inability to have a bowel movement Cleanse incision/area with: Soap Water and Keep Dressing Clean Dry DC O2, CPAP, BIPAP Needs Home O2 Discharge instructions: No Please Follow Up With: Emily Madrigal MD When: 1 week postop Meaningful Use Info Meaningful Use Meaningful Use Diagnoses (Choose all that apply): None applicable Ischemic Stroke Statin Dosing Therapy Reference: STATIN DOSE THERAPY REFERENCE: * Patients > 75 years receive moderate or high dose statin therapy. * Patients 75 years or YOUNGER should receive HIGH intensity statin dose unless contraindicated. You will be required to document reason for non-treatment if statin daily dose does not meet guidelines. HIGH DOSE STATIN THERAPY DAILY Atorvastatin > than or = to 40 mg Rosuvastatin > than or = to 20 mg Amlodipine + Atorvastatin > than or = to 2.5/40 mg Ezetimibe + Simvastatin 10/80 mg Simvastatin 80mg Discharge Plan Admission Admit Date/Time: 08/28/24 16:58 Primary Reason for Your Visit: Left spigelian hernia repair Attending Provider: Emily Madrigal Primary Care Provider: Coy Nath Instructions Additional Instructions / Restrictions: Hernia Diet ??? Start lig (more content not included)...[facility]01-13-2025 Evaluation note* Diagnosis Onset Date Resolution Status Admit Date Hernia of abdominal wall resolved August 28, 2024 4:58pm Diarrhea acute September 06, 2024 1:52pm S/P spigelian hernia repair, follow-up exam acute September 06 1:52pm Diarrhea acute October 05, 2024 2:43pm S/P spigelian hernia repair, follow-up exam acute October 05, 2:43pm Bronchitis chronic October 11, 2024 11:27am Elevated LFTs acute October 25, 2024 11:23am Exertional dyspnea acute October 25, 2024 11:23am Bronchitis chronic October 25 11:23am History of atrial fibrillation chronic October 25, 2024 11:23am Hypertension chronic October 25, 2024 11:23am Diarrhea acute November 17 3:18pm Difficulty swallowing acute Nov 3:18pm Non-specific colitis noneactive Apri l 2024 3:18pm [facility] Work Phone: 1(673) 716-281001-13-2025 [facility] Medical Records Department [address] [place] [address] History Physical Exam 08/28/24 1020 MR#: [id number] Acct: [id number] Name: MODESTA COOK Rep #: [id number] : 1940 84 From: Emily Madrigal MD PCP: Dr. Coy Nath, DO Status:REG [facility] Location: [place] [address] History and Physical Date of Admission: 08/28/24 Date of Service: 07/04/24 MR#: [id number] Acct: [id number] Name: MODESTA COOK Rep #: [id number] : 1940 Provider: Dr. 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 Manager Required: No Is patient in pain?: No Allergies nitroglycerin Allergy (Mild, Verified 07/04/24 14:59) NEEDS FOLLOW-UPamiodarone Allergy (Verified 07/04/24 14:59) Rashchlorpheniramine (From Actifed Cold-Allergy) Adverse Reaction (Verified 07/04/24 14:59) Otherphenylephrine (From Actifed Cold-Allergy) Adverse Reaction (Verified 07/04/24 14:59) Otherpseudoephedrine (From Actifed Cold-Allergy) Adverse Reaction (Verified 07/04/24 14:59) Othertriprolidine (From Actifed Cold-Allergy) Adverse Reaction (Verified 07/04/24 14:59) Other Medications ???Medication ???Instructions ???Recorded ???Confirmed ???Type aspirin 81 mg tablet,delayed 81 mg PO DAILY HEART 11/24/16 07/04/24 History release cetirizine 10 mg tablet (Zyrtec) 10 mg PO QHS allergy symptoms 06/07/23 07/04/24 History pantoprazole 40 mg tablet,delayed 40 mg PO DAILY #90 tabs 04/11/24 07/04/24 Rx release pravastatin 40 mg tablet 40 mg PO DAILY CHOLESTROL #90 tabs 04/11/24 07/04/24 Rx spironolactone 25 mg tablet 25 mg PO DAILY #90 tabs 04/11/24 07/04/24 Rx valsartan 160 mg tablet 160 mg PO .qd #90 tabs 04/11/24 07/04/24 Rx metoprolol succinate 25 mg 25 mg PO BID #180 tabs 04/26/24 07/04/24 Rx tablet,extended release 24 hr meloxicam 7.5 mg tablet 7.5 mg PO DAILY PRN pain #5 tabs 06/01/24 07/04/24 Rx amlodipine 10 mg tablet 10 mg PO DAILY BP #90 tabs 06/30/24 07/04/24 Rx nitrofurantoin macrocrystal 50 mg 50 mg PO QHS #90 caps 07/04/24 07/04/24 Rx capsule Have you fallen in the past year?: No PFSH Medical History Non-smoker Chest pain Chronic pain Atrial fibrillation Shortness of breath NECK/BACK PAIN Cardiac murmur History of hemorrhoids Frequent UTI Frequent headaches Chronic back pain History of stomach ulcers Arthritis Hyperlipemia Hypertension History of pneumonia Surgical History History of tonsillectomy History of appendectomy History of hysterectomy History of back surgery History of foot surgery Family History Mother Diabetes Hypertension CVA (cerebral vascular accident)Father Myocardial infarction, Onset Age: 80Brother Cancer Social History Smoking Status: Never smoker alcohol intake: never substance use type: does not use what type of physical activity do you participate in: walking frequency: daily HPI HPI HPI: Patient is a 83-year-old female who presents for newly diagnosed hernia. She presents today with her granddaughter. This finding was first noticed by CT imaging during recent ER visit on . She had presented earlier to an urgent care facility due to complaints of hip pain and upon presenting to the emergency department was diagnosed with elevated liver function testing and a new left-sided spigelian hernia. Patient is not able to recall how this occurred. Patient notes that she is completed a gallbladder ultrasound following the findings of elevated liver function testing but this was completed within normal limits. Outside of her ER visit she shares that she has experienced a change in bowel habits for the past few months where she has experienced diarrhea as well as coffee grounds consistency bowel character. However, today she reports that her bowels are back to normal color and consistency. She notes that once in a while she will experience pressure in her lower abdomen diffusely when her bowels do not go down. Patient confirms that she has spent the last year outs (more content not included)...[facility]12-12-2024 Evaluation note* Diagnosis Onset Date Resolution Status Admit Date Cough acute July 27, 2024 12:26pm Rhinosinusitis acute July 162023 12:26pm Hernia of abdominal wall resolved August 28, 2024 4:58pm Diarrhea acute September 06, 2024 1:52pm S/P spigelian hernia repair, follow-up exam acute September 06 1:52pm Diarrhea acute October 05, 2024 2:43pm S/P spigelian hernia repair, follow-up exam acute October 05 2:43pm Bronchitis chronic October 11, 2024 11:27am Elevated LFTs acute October 25, 2024 11:23am Exertional dyspnea acute October 25, 2024 11:23am Bronchitis chronic October 25 11:23am History of atrial fibrillation chronic October 25, 2024 11:23am Hypertension chronic October 25, 2024 11:23am Diarrhea acute November 17 3:18pm Difficulty swallowing acute Nov 3:18pm Non-specific colitis noneactive Apri l 2024 3:18pm [facility] Work Phone: 1(409) 578-710411-19-2024 Evaluation note* Diagnosis Onset Date Resolution Status Admit Date Spigelian hernia inactive July 04, 2024 2:42pm Cough acute July 27, 2024 12:26pm Rhinosinusitis acute July 162023 12:26pm Hernia of abdominal wall resolved August 28, 2024 4:58pm Diarrhea acute September 06, 2024 1:52pm S/P spigelian hernia repair, follow-up exam acute September 06 1:52pm Diarrhea acute October 05, 2024 2:43pm S/P spigelian hernia repair, follow-up exam acute October 05, 2 025 2:43pm Bronchitis chronic October 11, 2024 11:27am Elevated LFTs acute October 25, 2024 11:23am Exertional dyspnea acute October 25, 2024 11:23am Bronchitis chronic October 25 11:23am History of atrial fibrillation chron ic October 25, 2024 11:23am Hypertension chronic October 25, 2024 11:23am [facility] Work Phone: 1(195) 544-263303-12-2024 History of Present illness Narrative* Mal Phipps MD - 10/26/2023 3:45 PM EDT [facility] Cardiology Outpatient Follow-up Visit Reason for Visit: follow-up for atrial fibrillation HPI: Modesta Cook is a 83 y.o. female who presents today for a follow-up for atrial fibrillation.Past medical history of atrial fibrillation ([id number] 4; previously on coumadin- stopped due to hx of adverse bleeding), HTN, DLD, chronic lower back pain, left rectus sheath hematoma (05/2023- s/pIR coil embolization 06/15/2023), and thrombocytosis. Previously admitted to [facility] 06/08-06/23/2023. Patient was transferred from [facility] to [facility] for pericardial effusion. Admitted to the CICU on BiPAP, she denied any chest pain but persistently coughing, HR 139, BP 128/ 78, labs; ABG consistent with respiratory alkalosis, normal PO2. She was switched from BIPAP to 4 L nasal cannula. Labs; NA 128, K 4.7, Cr 0.5, WBC 17, Hb 9, PLT 650,lactate 1.3, BNP 300, troponin 12. Chest x-ray [...] LV thrombus. 06/11 CT with contrast revealed [id number] L rectus abdominus hematoma (H/H stable). 06/12 ANABEL without evidence of LV thrombusand DCCV was attempted. Amiodarone gtt initiated for afib rate and potential rhythm control. Digoxin loaded overnight of 06/11-06/12 for rate control (persistent afib and soft BP). Discharged with event monitor and started on coumadin (PCP managing- Dr. Coy Nath / Dr. Manju Staton in [facility]). Discharged home without diuretic therapy as patient was euvolemic on exam (Dry weight 69.9 kg). Modesta presented to cardiology clinic on 07/20/2023. Feeling better after getting out of hospital.Had rash from amiodarone > seen in ED > amiodarone stopped and given short course of prednisone (completed). Rash rash resolved. Feeling ok. No chest pains, dyspnea, orthopnea, PND, syncope, orpedal edema. Holter monitor in place; results pending. Modesta presented to cardiology clinic on 10/26/2023. Holter monitor showed minimal atrial flutter burden (3%). Coumadin was stopped given history of adverse bleeding (rectus sheath hematoma). Patient had previously discussed option of watchman with interventional cardiology, patient would like to defer at this time. No active cardiac complaints, euvolemic on exam. Past Medical History: - As above Surgical History: She has a past surgical history that includes IR embolization (06/15/2023). Family History: - no pertinent family history Allergies: Nitroglycerin, Amiodarone, Pseudoephedrine, and Triprolidine Social History: - Non-smoker; no alcohol use; no illicit drug use Prior Cardiovascular Testing (Personally Reviewed): Holter monitor (06/2023) Predominant sinus rhythm with episodes of aflutter; average HR 75 bpm Episodes of atrial flutter are present (3%) burden No episodes of high grade AV block No ventricular tachycardia IR embolization (06/15/2023) 1. Left inferior epigastric [...] by mouth every 6 hours if needed formild pain (1 - 3)., Disp: 30 tablet, [...] bedtime. Take as directed per After Visit Summary. (Patient not taking: Reported on 10/26/2023), Disp: 30 tablet, Rfl: 3 Last Recorded Vitals BP 151/73 (BP Location: Left arm, Patient Position: Sitting) Pulse 54 Resp 16 Wt 66.2 kg (146lb) SpO2 95% BMI 25.86 kg/m Physical Exam: Physical Exam HENT: Head: Normocephalic. Mouth/Throat: Mouth: Mucous membranes are moist. Eyes: Extraocular Movements: Extraocular movements intact. Conjunctiva/sclera: Conjunctivae normal. Neck: Vascular: No JVD. Cardiovascular: Rate and Rhythm: Regular rhythm. Bradycardia present. Comments: HR 50s, asymptomatic Pulmonary: [...] Component Value Date BNP 308 (H) 06/08/2023 Assessment: 83 y.o. female who presents today for a follow-up for atrial fibrillation. Past medical history of atrial fibrillation ([id number] 4; on coumadin- goal INR 2- 3), HTN, DLD, chronic lower back pain, left rectus sheath hematoma (05/2023- s/p IR coil embolization 06/15/2023), and thrombocytosis. Modesta presented to cardiology clinic on 10/26/2023. Holter monitor showed minimal atrial flutter burden (3%). Coumadin was stopped given history of adverse bleeding (rectus sheath hematoma). Patient had previously discussed option of watchman with interventional cardiology, patient would like to defer at this time. No active cardiac complaints, euvolemic on exam. Overall Plan: 1. Paroxysmal Atrial fibrillation / flutter ([id number] 4) - Given history of adverse bleeding (rectus sheath hematoma), patient remains off Coumadin; recent Holter monitor with minimal A-fib burden (3%) - Patient previously discussed option of left atrial pended occlusion device (Watchman device); patient would like to defer for now - Continue beta blockade 2. HTN (goal BP < 130/90 mmHg; currently well-controlled) - continue amlodipine, valsartan, metoprolol, spironolactone 3. DLD (goal LDL < 100 mg/dl) - continue pravastatin; dietary and lifestyle modifications 4. Hx Left rectus sheath hematoma - s/p coil embolization 06/15/2023 - continue coumadin as tolerated 5. Discussed red flag symptoms that should prompt immediate medical attention; patient verbalizedunderstanding Disposition- return to cardiology clinic in 6-12 months Thank you for your visit today. Please contact our office with any questions. Mal Phipps MD documented in this [facility] Work Phone: 1(247) 710-497703-12-2024 Instructions* Patient Instructions* Mal Phipps MD - 10/26/2023 3:45 PM EDT Agree with stopping coumadin given your history of bleeding. Your prior heart monitor showed minimal atrial fibrillation; we will continue aspirin as tolerated. We will see you back in heart clinic in ~ 6 months or earlier if needed. Please call my nurse Analia with any questions; her contact information is below. Thank you for your visit today. Please contact our office (via [employer] or phone) with any additional questions. [facility] YUNG Helms/Clinic Nurse for: Dr. Desire Mccabe [address] [place] [address] Press Option 5 then Option 3 to speak with the Clinic Nurse (Analia) To Reach: Billing Questions - [phone] Scheduling / Rescheduling - Option 1 Refills / Medication Requests - Option 3 General Office / [place] - Option 4 Results - Option 6 Medical Records - Option 7 Repeat Options - Option 9 documented in this [facility] Work Phone: 1([phone]) 488-435312-05-2023 History of Present illness Narrative* Mal Phipps MD - 07/20/2023 11:00 AM EST [facility] Cardiology Outpatient Follow-up Visit Reason for Visit: hospital follow-up for atrial fibrillation HPI: Modesta Cook is a 82 y.o. female who presents today for a hospital discharge follow-up for atrial fibrillation, establish care with general cardiology. Past medical history of atrial fibrillation ([id number] 4; on coumadin- goal INR 2-3), HTN, DLD, chronic lower back pain, left rectus sheath hematoma (05/2023- s/p IR coil embolization 06/15/2023), and thrombocytosis. Patient was previously admitted to [facility] 06/08-06/23/2023. Patient was transferred from [facility] to [facility] for pericardial effusion. Admitted to the CICU on BiPAP, she denied any chest pain but persistently coughing, HR 139, BP 128/ 78, labs; ABG consistent with respiratory alkalosis, normal PO2. She was switched from BIPAP to 4 L nasal cannula. Labs; NA 128, K 4.7, Cr 0.5, WBC 17, Hb9, PLT 650, lactate 1.3, BNP 300, troponin 12. Chest x- ray consistent with pulmonary edema and vascular congestion, [...] LV thrombus. 06/11 CT with contrast revealed [id number] L rectus abdominus hematoma (H/H stable). 06/12 ANABEL without evidence of LV thrombusand DCCV was attempted. Amiodarone gtt initiated for afib rate and potential rhythm control. Digoxin loaded overnight of 06/11-06/12 for rate control (persistent afib and soft BP). Discharged with event monitor and started on coumadin (PCP managing- Dr. Coy Nath / Dr. Manju Staton in [facility]). Discharged home without diuretic therapy as patient was euvolemic on exam (Dry weight 69.9 kg). Modesta presented to cardiology clinic on 07/20/2023. Feeling better after getting out of hospital.Had rash from amiodarone > seen in ED > amiodarone stopped and given short course of prednisone (completed). Rash rash resolved. Feeling ok. No chest pains, dyspnea, orthopnea, PND, syncope, orpedal edema. Tolerating coumadin without significant bleeding issues. [...] by mouth every 6 hours if needed formild pain (1 - 3)., Disp: 30 tablet, [...] Adult) Pulse 54 Ht 1.6 m (5' 3) Wt 66.7 kg (147 lb) SpO2 97% [...] fibrillation. Past medical history of atrial fibrillation ([id number] 4; on coumadin- goal INR 2-3), HTN, DLD, chronic lower back pain, left rectus sheath hematoma (05/2023- s/p IR coil embolization 06/15/2023), and thrombocytosis. Modesta presented to cardiology clinic on 07/20/2023. Feeling better after getting out of hospital.Had rash from amiodarone > seen in ED > amiodarone stopped and given short course of prednisone (completed). Rash rash resolved. Feeling ok. No chest pains, dyspnea, orthopnea, PND, syncope, orpedal edema. Tolerating coumadin without significant bleeding issues. Holter monitor in place; results pending. BP well-controlled; euvolemic on exam. Overall Plan: 1. Atrial fibrillation ([id number] 4) - Continue coumadin with goal INR [...] that should prompt immediate medical attention; patient verbalizedunderstanding Disposition- return to cardiology clinic in 3-6 months Thank you for your visit today. Please contact our office with any questions. Mal Phipps MD [facility] Phone: 1(154) 504-800612-05-2023 Instructions* Patient Instructions* Mal Phipps MD - 07/20/2023 11:00 AM EST Your heart rate is currently well controlled. We will continue coumadin, please follow-up with yourprimary care. If they are not able to manage your coumadin we would then refer you to coumadin clinic. Thank you for your visit today. Please contact our office (via [employer] or phone) with any additional questions. Please call my nurse Analia with any questions. [facility] Analia, YUNG/Clinic Nurse for: Dr. Desire Mccabe [address], [address] [place] [address] Press Option 5 then Option 3 to speak with the Clinic Nurse (Analia) To Reach: Billing Questions - [phone] Scheduling / Rescheduling - Option 1 Refills / Medication Requests - Option 3 General Office / [employer] - Option 4 Results - Option 6 Medical Records - Option 7 Repeat Options - Option 9 [facility] Work Phone: 1(925) 463-378711-20-2023 Hospital Discharge instructions Patient Education 07/05/2023 12:39:53 Drug Reaction, [...] But it will probably occur again if youtake this same medicine. Your healthcare provider will advise you whether to change how much, when,or how often you take this medicine. He [...] also avoid similar medicines. Write down the informationso you will remember it. Make certain the [...] large amounts of blood in stool Seizure [id number] [employer] [place] [address]. All rights reserved. This information is not intended as a substitute for professional medical care. Always follow yourhealthcare professional's instructions. Follow Up Care 07/05/2023 11:05:09 With:COY NATH DO Address: [facility] [address] [place] [address] [place] [phone] When:2-4 days [facility] 11-20-2023 Emergency department Discharge summary Discharge Instructions Thank you for allowing [facility] to assist you with your healthcare needs. The following is importantdischarge information regarding your hospital visit. Diagnosis from Today's Visit Drug rash Rash What to Do Next Instructions from Your Care Team No qualifying data available. Post Acute Orders No qualifying data available. You Need to Schedule the Following Appointments Follow Up with COY NATH DO When Within 2-4 days Where: [facility] [address] [place] [address] [place] [address] [phone] Allergies Nitro TD Patch-A pseudoephedrine (unknown) triprolidine (unknown) Medications Please ask your primary doctor or pharmacist before taking any other medication not listed, including over the counter drugs, herbal medications, vitamins and or supplements as they may interact withyour home medications. What How Much When Instructions [...] But it will probably occur again if youtake this same medicine. Your healthcare provider will advise you whether to change how much, when,or how often you take this medicine. He [...] also avoid similar medicines. Write down the informationso you will remember it. Make certain the [...] large amounts of blood in stool Seizure [id number] [employer]. [address] [place] [address], [place] [address]. All rights reserved. This information is not intended as a substitute for professional medical care. Always follow yourhealthcare professional's instructions. Additional Information VACCINATE! IT SAVES LIVES! Members of the community who have not yet received the COVID-19 vaccine and would like to receive it can visit one of [facility] vaccine clinics. There are many vaccine clinic locations within the [facility]. For locations and available times, please visit www.[email or web address].[place].gov/. It is important to note that some COVID mobile vaccine clinics are held outdoors and may be canceled in rainy or stormy conditions. To learn more about pediatric vaccinations (ages 5-11), we invite you to visit the [facility] webpage. [email or web address] learn more about the COVID-19 vaccine, we invite you to visit the CDC website for a list of frequently asked questions. https://www.cdc.gov/coronavirus/2019-ncov/vaccines/faq.html [facility] Patient Portal Access Instructions: Stay connected with your healthcare team and access your personal medical information anytime with the [facility] Patient Portal. If you would like a full copy of your medical records please contact the [facility] Medical Records Department Wednesday through Wednesday between 8a.m. and 4:30p.m. Please follow the directions below to access the portal: 1.Access the email account you provided upon registration to the hospital.2.Look for an invitation email from [facility].3.Open the email and access the invitation link: Accept Invitation to [facility]4.Fill in the required campa to create your account. Sign into [email or web address].[email or web address] with your username and password that you [...] you will allow to register on the [facility] Patient Portal for access to your information. You can also access the [facility] Patient Portal on the [employer] anaya. Simply click on Health Records under [employer] and then click on the [facility] logo. HOW TO SAFELY DISPOSE OF PRESCRIPTION MEDICATIONS Please use one of the following methods to safely dispose of your unused medications. 1.Use a drug disposal kit: the drug disposal pouch allows you to safely discard your old and unuseddrugs. Ask your nurse to give you one when you are discharged.2.Visit a local take-back location: Many local pharmacies and police departments have programs that collect old and unwanted prescriptiondrugs. Call your local pharmacy or go to [email or web address]/8C9Zg3e to find one close to you.3.Make use of household items: Use cat litter or old coffee grounds to dispose medications if other options arenot available. Mix your drugs with these household products, seal them in an airtight container andthrow it into the garbage. Call [facility]: [phone] to be sure your drugs can be [...] drowsiness, such as benzodiazepines, also known as benzos,including diazepam and alprazolam, muscle relaxants or sleep aids. Never sell or share prescriptionopioids. This is illegal. Store opioids in a [...] questions, I am aware that I should contactmy doctor. 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 Coy Nath, DO Status:AD M IN Location: [place] [id number] Providers Date of Admission: 06/07/23 Date of Discharge: 06/08/23 Primary Care Physician: Dr. Coy Nath, DO Reason For Visit: B/L EFFUSION Diagnosis Discharge Diagnosis (1) Bilateral pleural effusion: Status: Acute Code(s): J90 - Pleural effusion, not elsewhere classified (2) Exertional dyspnea: Status: Acute Code(s): R06.09 - Other forms of dyspnea Plan #Hypoxia and generalized fatigue and dyspnea on exertion most likely due to diarrhea coupled with bilateral pleural effusion and atelectasis #Moderate pericardial effusion #Recent Diarrhea- resolved #Subacute hyponatremia most likely due to diarrhea: #History of recent A-fib #Normocytic anemia of chronic disease #Hypertension Medications at Discharge Home Medications aspirin 81 mg tablet,delayed release 81 mg PO DAILY HEART 11/24/16 methylcellulose (laxative) 500 mg tablet (Citrucel) 500 mg PO DAILY PRN constipation 01/08/21 hydrochlorothiazide 12.5 mg tablet 12.5 mg PO DAILY BP #90 tabs 11/24/22 potassium chloride 20 mEq tablet,extended release 20 meq PO DAILY SUPPLEMENT #90tabs 01/14/23 pravastatin 40 mg tablet 40 mg PO DAILY CHOLESTROL #90 tabs 01/14/23 telmisartan 80 mg tablet 80 mg PO DAILY OK #90 ea 01/14/23 amlodipine 10 mg tablet 10 mg PO DAILY BP #90 tabs 03/23/23 cetirizine 10 mg tablet (Zyrtec) 10 mg PO QHS allergy symptoms 06/07/23 diltiazem HCl 120 mg capsule,extended release 24 hr (Cardizem CD) 120 mg PO DAILY BP 06/07/23 fluticasone propionate 50 mcg/actuation nasal spray,suspension (Flonase Allergy Relief) 2 spray intranasal DAILY PRN nasal congestion 06/07/23 ipratropium bromide 0.02 % solution for inhalation 0.5 mg (2.5 mL) inhalation Q4HWA.RT #0 mL 06/08/23 pantoprazole 40 mg tablet,delayed release 40 mg PO DAILY #0 tabs 06/08/23 Hospital Course Procedures Transthoracic echo Summary of Care Provided Minutes Spent on Discharge: 46 Hospital Course: MODESTA COOK, is a 82 F with history of hypertension, recent episode of A-fib who came to ER for shortness of breath 06/07/2023 for about 7 to 8 days mainly exertional walking within the home. Patient was discharged on 05/26/2023 after treatment for pneumonia and A-fib with RVR. 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 Of note at her admission earlier this month she had an echocardiogram with a normal EF and no wall motion abnormalities or other overt abnormalities. In the ED patient was 85% on room air and was 92% on 4 L, she been having some recent diarrhea though it not for 2 days and appeared dry so she was given fluids and respiratory status worsened. She is given 20 IV Lasix and BNP obtained which was low, Pro-Jim also low. D-dimer ordered as wellas limited echo and troponin, troponin within normal limits, limited echocardiogram with moderate effusion which was new in early evidence concerningfor impending tamponade. Discussed with cardiology and they recommended transfer to tertiary center due to the effusion and concerns for patient progressing to tamponade and needing intervention. It was also advised to hold full dose anticoagulation if she was on it. Discussed with patient, patient accepted at . After all of this was arranged and echo reviewed patient's D-dimer then resulted at 5.6, patient's blood pressure not low, respiratory statusimproving on BiPAP and concerns that lying patient flat may lead to acute decompensation and potentially catastrophic outcomes so CTA was not immediately pursued, vascular duplex is ordered of lower extremities. Discussed with cardiology given the recommendation of holding full dose anticoagulation but newD-dimer. Patient awaiting transport to tertiary facility, given unclear if patient's effusion is bloody or not in unclear cause of this quickly accumulating effusion there is concern that empirically starting heparin could worsen her tamponade and also have catastrophic outcomes. We will attempt to get duplexes, if not able to be performed prior to transfer, as transfer is imminent, this can be further worked up and managed at tertiary facility. At this time patient fairly stable on BiPAP without further acute decompensation. If hypotension develops, change in respiratory status, worsening tachycardia mayneed to revisit risks and benefits. Additionally prior to echo results patient was given metoprolol which did help heart rate go down to high 90s low 100s though still variable, given new information with effusion it is possible her tachycardia is compensatory and will avoid further beta-radha use hyperacutelyto avoid worsening status and have also avoided further IV Lasix to avoid decompensation Physical Exam Narrative General: Alert, oriented, appears uncomfortable HEENT: Atraumatic, normocephalic Eyes: Anicteric, normal conjunctiva, extraocular movements grossly intact Neck: Supple Respiratory: diminished at the bases, increased respiratory effort Cardiovascular: Irregularly irregular, slightly tachycardic GI: Soft, nontender, nondistended Extremities: No edema Musculoskeletal: Moving all extremities Neuro: No overt focal neurological deficits Skin: No rashes appreciated Psych: Cooperative Weight / BMI Weight Weight: 71.8 kg Body Mass Index (BMI) 28.0 ABG / Lab / Microbiology Data 06/08/23 06:48 06/08/23 06:48 Laboratory: Laboratory Results - last 24 hr 06/07/23 20:03: Phosphorus 2.8, Magnesium 2.2, Total Creatine Kinase 50, Blood Type B POSITIVE, Antibody Screen POSITIVE, Antibody Identification ANTI-K, Antigen Identification K ANTIGEN - NEGATIVE, Crossmatch See Detail 06/07/23 21:10: Lactic Acid 1.0 06/07/23 23:12: PT 14.3, INR 1.1, APTT 32.9 06/08/23 06:48: WBC 14.2 H, RBC 3.12 L, Hgb 8.7 L, Hct 26.8 L, MCV 85.9, MCH 27.9, MCHC 32.5, RDW Std Deviation 42.4, RDW Coeff of Juve 13.5, Plt Count 549 H,MPV 8.6, Immature Gran % (Auto) 0.700, Neut % (Auto) 77.4 H, Lymph % (Auto) 10.8L, [place] % (Auto) 10.5 H, Eos % (Auto) 0.1, Baso % (Auto) 0.5, Absolute Neuts (auto) 11.0 H, Absolute Lymphs (auto) 1.53, Nucleated RBC % 0, Sodium 128 L, Potassium 4.0, Chloride 97 L, Carbon Dioxide 25.0, Anion Gap 6, BUN 20 H, Creatinine 0.51 L, Estim Creat Clear Calc 35.26, Est GFR (MDRD) Af Amer 147, EstGFR (MDRD) Non-Af 122, BUN/Creatinine Ratio 39.1 H, Glucose 146 H, Calcium 8.6, B-Natriuretic Peptide 187.4 H, TSH 5.56 H 06/08/23 14:06: Procalcitonin 0.09 06/08/23 14:57: D-Dimer Quant (PE/DVT) 5.62 H*, Troponin I High Sens 10 Microbiology: Microbiology 06/07/23 22:10 Nasal Secretion SARS-CoV-2 & FLU Antigen (Rapid) - Final Radiography Diagnostic Testing: Radiology Impression Echocardiogram 06/08/23 12:09 Interpretation Summary Moderate concentric left ventricular hypertrophy. The left ventricular ejection fraction is 70 %. There is Mild focal posterior mitral annular calcification. Mild diffuse aortic valve thickening. Moderate pericardial effusion. Early diastolic collapse of the right atrium noted. Suggestive of early echo evidence of tamponade. IVC dilated but does collapse with sniffing. The pericardial effusion has developed since the last examination from 05/26/2023. Ordering Physician: Sivan Martinez Referring Physician: Abdias Nath M.D. Performed By: Wen Argueta RCS D/C Instructions Discharge Diet: 2000 mg Sodium Diet Meaningful Use Info Meaningful Use Diagnoses (Choose all that apply): None applicable Discharge Plan Admission Admit Date/Time: 06/07/23 19:48 Primary Reason for Your Visit: Shortness of breath Attending Provider: Sivan Martinez Primary Care Provider: Coy Nath Consulting Providers: Colton Mayfield Instructions Patient Instructions: Treatment for Pericardial Effusion, Understanding Pericardial Effusion Discharge Orders/Prescriptions Prescriptions: New pantoprazole 40 mg Tablet,Delayed Release (Dr/Ec) 40 mg PO DAILY Qty: 0 0RF ipratropium bromide 0.02 % Solution 0.5 mg inhalation Q4HWA.RT Qty: 0 0RF Continued aspirin 81 MG tablet,delayed release (DR/EC) 81 mg PO DAILY diltiazem HCl [Cardizem CD] 120 mg capsule,extended release 24hr 120 mg PO DAILY pravastatin 40 mg tablet 40 mg PO DAILY Qty: 90 3RF telmisartan 80 mg tablet 80 mg PO DAILY Qty: 90 3RF amlodipine 10 mg tablet 10 mg PO DAILY Qty: 90 0RF No Action Citrucel 500 mg tablet 500 mg PO DAILY PRN (Reason: constipation) fluticasone propionate [Flonase Allergy Relief] 50 mcg/actuation spray,suspension 2 spray intranasal DAILY PRN (Reason: nasal congestion) Rx Instructions: administer into each nostril cetirizine [Zyrtec] 10 mg tablet 10 mg PO QHS hydrochlorothiazide 12.5 mg tablet 12.5 mg PO DAILY Qty: 90 2RF Rx Instructions: Take 1 tablet by mouth daily potassium chloride 20 mEq tablet extended release 20 meq PO DAILY Qty: 90 3RF Referrals / Follow Up: Coy Nath DO [Primary Care Provider] - Disposition Disposition (needs filled in before D/C Order can be placed): Acute Care Hospital Charges/Coding Visit Charges Inpatient E&M: 43729 Disch Hosp >30min 06/08/231736 <Electronically signed by Sivan Martinez MD> Cosigner Signature (if applicable): CC: Dr. Coy Nath DO; Dr. Sivan Martinez MD~ Signed [facility] Work Phone: 1(815) 980-350510-24-2023 Discharge summary Author Sivan Martinez [facility] June 08, 2023 5:22pm Note Date/Time June 08, 2023 5 :19pm [facility] Medical Records Department [address] [place] [address] Instructions for Home/Discharge Instructions 06/08/237 MR#: [id number] Acct: [id number] Name: MODESTA COOK Rep #:[id number] : 1940 82 From: Sivan Martinez MD PCP: Dr. Coy Nath DO Status:AD M IN Discharge Instructions Diet Discharge Diet: 2000 mg Sodium Diet Follow Up Care Test Results: Test results from this visit will be discussed in further detail at your follow- up appointment, if applicable. Discharge Plan Admission Admit Date/Time: 06/07/23 19:48 Primary Reason for Your Visit: Shortness of breath Attending Provider: Sivan Martinez Primary Care Provider: Coy Nath Consulting Providers: Colton Mayfield Instructions Patient Instructions: Treatment for Pericardial Effusion, Understanding Pericardial Effusion Discharge Orders/Prescriptions Prescriptions: New pantoprazole 40 mg Tablet,Delayed Release (Dr/Ec) 40 mg PO DAILY Qty: 0 0RF ipratropium bromide 0.02 % Solution 0.5 mg inhalation Q4HWA.RT Qty: 0 0RF Continued aspirin 81 MG tablet,delayed release (DR/EC) 81 mg PO DAILY diltiazem HCl [Cardizem CD] 120 mg capsule,extended release 24hr 120 mg PO DAILY pravastatin 40 mg tablet 40 mg PO DAILY Qty: 90 3RF telmisartan 80 mg tablet 80 mg PO DAILY Qty: 90 3RF amlodipine 10 mg tablet 10 mg PO DAILY Qty: 90 0RF No Action Citrucel 500 mg tablet 500 mg PO DAILY PRN (Reason: constipation) fluticasone propionate [Flonase Allergy Relief] 50 mcg/actuation spray,suspension 2 spray intranasal DAILY PRN (Reason: nasal congestion) Rx Instructions: administer into each nostril cetirizine [Zyrtec] 10 mg tablet 10 mg PO QHS hydrochlorothiazide 12.5 mg tablet 12.5 mg PO DAILY Qty: 90 2RF Rx Instructions: Take 1 tablet by mouth daily potassium chloride 20 mEq tablet extended release 20 meq PO DAILY Qty: 90 3RF Referrals / Follow Up: Coy Nath DO [Primary Care Provider] - Disposition Disposition (needs filled in before D/C Order can be placed): [facility] 06/08/23 1722<Electronically signed by Sivan Martinez MD>Sivan Martinez MD CC: Dr. Coy Nath DO; Dr. Colton Mayfield MD ~ Signed [facility] Work Phone: 1(324) 136-913010-24-2023 Progress note Author Sivan [facility] June 08, 2023 12:25pm Note Date/Time June 08, 2023 9 :09am [facility] Medical Records Department [address] [place] [address] Progress Note - Hospitalist 06/08/23 0902 MR#: [id number] Acct: [id number] Name: MODESTA COOK Rep #:[id number] : 1940 82 From: Sivan Martinez MD PCP: Dr. Coy Nath DO Status:[facility] [place] Location: [place] [address] Reason for Visit Reason for Visit: Diagnoses Pleural effusion, not elsewhere classified (06/07/23) Other forms of dyspnea (06/07/23) Subjective Subjective Pt more SOB after fluids, no CP, dry cough Objective Data Objective Data Vital Signs: Vital Signs Temp Pulse Resp BP Pulse Ox O2 Del Method O2 Flow Rate 98.7 F 88 25 H 155/72 H 92 Nasal Cannula 4 06/08/23 04:26 06/08/23 04:26 06/08/23 04:26 06/08/23 04:26 06/08/23 08:48 06/08/23 08:48 06/08/23 08:48 Oxygen Flow Rate (L/min) 4 Oxygen Delivery Method Nasal Cannula Weight: 71.8 kg Body Mass Index (BMI) 28.0 Intake & Output: Intake and Output for Last 24 Hours 06/06/23 06/07/23 06/08/23 23:59 23:59 23:59 Intake Total 646.67 / 646.67 Balance 646.67 / 646.67 Lab / Micro Data 06/08/23 06:48 06/08/23 06:48 Labs: Laboratory Results - last 24 hr 06/07/23 20:03: Phosphorus 2.8, Magnesium 2.2, Total Creatine Kinase 50, Blood Type B POSITIVE, Antibody Screen POSITIVE, Antibody Identification ANTI-K, Crossmatch See Detail 06/07/23 21:10: Lactic Acid 1.0 06/07/23 23:12: PT 14.3, INR 1.1, APTT 32.9 06/08/23 06:48: WBC 14.2 H, RBC 3.12 L, Hgb 8.7 L, Hct 26.8 L, MCV 85.9, MCH 27.9, MCHC 32.5, RDW Std Deviation 42.4, RDW Coeff of Juve 13.5, Plt Count 549 H,MPV 8.6, Immature Gran % (Auto) 0.700, Neut % (Auto) 77.4 H, Lymph % (Auto) 10.8L, [place] % (Auto) 10.5 H, Eos % (Auto) 0.1, Baso % (Auto) 0.5, Absolute Neuts (auto) 11.0 H, Absolute Lymphs (auto) 1.53, Nucleated RBC % 0, Sodium 128 L, Potassium 4.0, Chloride 97 L, Carbon Dioxide 25.0, Anion Gap 6, BUN 20 H, Creatinine 0.51 L, Estim Creat Clear Calc 35.26, Est GFR (MDRD) Af Amer 147, EstGFR (MDRD) Non-Af 122, BUN/Creatinine Ratio 39.1 H, Glucose 146 H, Calcium 8.6, TSH 5.56 H Micro: Microbiology 06/07/23 22:10 Nasal Secretion SARS-CoV-2 & FLU Antigen (Rapid) - Final Rhythm Strip Rhythm Strip: Sinus Rhythm Rate: 83 Ectopy: None Physical Exam Narrative General: Alert, oriented, appears uncomfortable HEENT: Atraumatic, normocephalic Eyes: Anicteric, normal conjunctiva, extraocular movements grossly intact Neck: Supple Respiratory: diminished at the bases, increased respiratory effort Cardiovascular: Irregularly irregular, slightly tachycardic GI: Soft, nontender, nondistended Extremities: No edema Musculoskeletal: Moving all extremities Neuro: No overt focal neurological deficits Skin: No rashes appreciated Psych: Cooperative Assessment & Plan Assessment/Plan (1) Bilateral pleural effusion: (2) Exertional dyspnea: PLAN: Plan This 82-year-old female admitted with multiple complaints along with abnormal lab work. 1. Hypoxia and generalized fatigue and dyspnea on exertion most likely due to diarrhea coupled with bilateral pleural effusion and atelectasis: Patient was discharged on Levaquin 750 mg every 48 hourly total 2 tablets. Patient is not having any fever no hypoxia or tachypnea therefore incentive spirometry and Pep ordered. Respiratory panel and COVID-19 PCR ordered. UA with urine culture, sputum culture and blood culture ordered. Chest x-ray shows bilateral pleural effusion but I do not think its tappable/thoracocentesis. -06/08: Was 85% on room air, presently 92% on 4 L. Given 2 L IV fluid, respiratory status worsened, 20 IV Lasix. Previous echo with normal EF however given pulmonary edema and effusions we will recheck limited echo for EF and wall motion abnormalities. Will obtain BNP. Has had dry cough but no overt infectious signs or symptoms but will check Pro-Jim as she reportedly has not been feeling better even after discharge and does have slightly elevated white count. Patient also given DuoNeb, has had problems with albuterol in the past and heart rate, will change these to Atrovent, did report that the DuoNeb that she got this morning was very helpful and it did not seem to affect her heart rate at that time. We will get respiratory panel. If not improving with these measures can consider CTA however given her effusions and worsening with fluids will first trial Lasix as this seems more likely culprit 2. Diarrhea with suspicion of possible C. difficile colitis: Patient completed antibiotic recently. Stool for C. difficile enteric bacteriology panel ordered. BUNs/creatinine elevated suggestive of dehydration therefore IV fluid normal saline ordered. Continue potassium supplement. -06/08: BUN and creatinine better with fluids. Enteric pathogens and cultures ordered, enteric pathogens yet to be obtained, has not had a BM. No diarrhea for 2 days prior to admission as well, low suspicion for C. difficile at this point 3. Subacute hyponatremia most likely due to diarrhea: Patient sodium is 126 chloride 94. Patient's sodium was 138 on 05/26/2023. IV fluid normal saline rest as mentioned above. -06/08: Improved 128 with normal saline 4. History of recent A-fib: Patient had A-fib with RVR during recent admission. At that time patient was treated with Cardizem drip and transition to metoprolol. Recent 2D echo on 05/26/2023 shows normal LV ventricle EF 60%. PASP 26 mmHg. Patient is on baby aspirin and diltiazem CD. -06/08: Continue present management, monitor closely after being given albuterolwith her DuoNeb 5. Normocytic anemia of chronic disease: H&H 9.11/11.6. 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 Leukocytosis, 15,000 mainly neutrophil 81%. Type and crossmatch. I do not think patient needs antibiotic as she just completed it.. Stool for occult blood ordered. Protonix ordered. -06/08: Do not think patient has brisk ongoing bleeding, continue to trend Other comorbidities include Hypertension and dyslipidemia: Hold HCTZ as patient is having diarrhea and dehydrated. Continue ARB. Continue pravastatin. DVT prophylaxis: Heparin 500 subcutaneous twice daily Time spent in the patient's overall evaluation,decision-making process, review of diagnostic data, adjustment of management, discussion with other providers, nursing nursing and ancillary staff involved in patient's care documentation, 60minutes Charges/Coding Visit Charges Inpatient E&M: 82908 Subs Hosp L3 06/08/23 1225 <Electronically signed by Sivan Martinez MD> Cosigner Signature (if applicable): CC: ~ Signed [facility] Work Phone: [phone]) 985-208210-24-2023 Discharge summary Author Binh Ken [facility] June 08, 2023 12:26am Note Date/Time June 07, 2023 7 :47pm [facility] Medical Records Department [address] [place] [id number] Emergency Department Summary 06/07/23 MR#: [id number] Acct: [id number] Name: MODESTA COOK Rep #:[id number] : 1940 82 From: Binh Ken MD PCP: Dr. Coy Nath, DO Status:AD M IN Location: [place] [address] HPI History of Present Illness Chief Complaint: Abn Labs Detail of Chief Complaint: Sent in by 's office for abnormal labs. Informant: patient and family Onset/Context/Timing Onset: Days Context: Gradual Onset Timing: Continuous Current Severity: Mild Maximum Severity: Mild Narrative Narrative: 82-year-old female recent history of admission to the hospital for pneumonia. She was given Erb's all treatments in the hospital and developed A-fib. She hashad intermittent A-fib since discharge is currently on metoprolol. She had outpatient labs which showed a new hyponatremia with a sodium of 126, hemoglobin9.3 and bilateral pleural effusions so they sent her in to be admitted for further evaluation. Family states that she has been very fatigued at home. She getsshort of breath easily specifically with exertion. She has not been having chest pain. And she has not had any melena. She is currently on no blood thinners. Prior similar symptoms: Yes Recent Illness/Hospitalization: Yes PFSH PFS Medical History Arthritis Atrial fibrillation Cardiac murmur Chronic back pain Chronic pain Frequent headaches Frequent UTI History of hemorrhoids History of pneumonia History of stomach ulcers Hyperlipemia Hypertension NECK/BACK PAIN Shortness of breath Home Medications aspirin 81 mg tablet,delayed release 81 mg PO DAILY HEART 11/24/16 [History Last Taken Unknown] methylcellulose (laxative) 500 mg tablet (Citrucel) 500 mg PO DAILY PRN constipation 01/08/21 [History Last Taken Unknown] hydrochlorothiazide 12.5 mg tablet 12.5 mg PO DAILY BP #90 tabs 11/24/22 [Rx Last Taken Unknown] potassium chloride 20 mEq tablet,extended release 20 meq PO DAILY SUPPLEMENT #90tabs 01/14/23 [Rx Last Taken Unknown] pravastatin 40 mg tablet 40 mg PO DAILY CHOLESTROL #90 tabs 01/14/23 [Rx Last Taken Unknown] telmisartan 80 mg tablet 80 mg PO DAILY OK #90 ea 01/14/23 [Rx Last Taken Unknown] amlodipine 10 mg tablet 10 mg PO DAILY BP #90 tabs 03/23/23 [Rx Last Taken Unknown] cetirizine 10 mg tablet (Zyrtec) 10 mg PO QHS allergy symptoms 06/07/23 [History Last Taken Unknown] diltiazem HCl 120 mg capsule,extended release 24 hr (Cardizem CD) 120 mg PO DAILY BP 06/07/23 [History Last Taken Unknown] fluticasone propionate 50 mcg/actuation nasal spray,suspension (Flonase Allergy Relief) 2 spray intranasal DAILY PRN nasal congestion 06/07/23 [History Last Taken Unknown] Allergy/AdvReac Type Severity Reaction Status Date / Time nitroglycerin Allergy Mild NEEDS Verified 06/07/23 17:22 FOLLOW-UP chlorpheniramine AdvReac Other Verified 06/07/23 17:22 [From Actifed Cold-Allergy] phenylephrine AdvReac Other Verified 06/07/23 17:22 [From Actifed Cold-Allergy] pseudoephedrine AdvReac Other Verified 06/07/23 17:22 [From Actifed Cold-Allergy] triprolidine AdvReac Other Verified 06/07/23 17:22 [From Actifed Cold-Allergy] Family History Mother Diabetes Hypertension CVA (cerebral vascular accident) Father Myocardial infarction, Onset Age: 80 Brother Cancer Surgical History History of appendectomy History of back surgery History of foot surgery History of hysterectomy History of tonsillectomy Social History Smoking Status: Never smoker alcohol intake: never substance use type: does not use what type of physical activity do you participate in: walking frequency: daily ROS ROS ED ROS Narrative Shortness of breath. Fatigue. Diarrhea. Review of Systems ROS Unobtainable: Denies due to encephalopathy Constitutional Constitutional ED: Denies chills or fever(s) Eyes Eyes: Denies blurry vision ENT ENT ED: Denies ear pain Cardiovascular Cardiovascular: Denies chest pain Respiratory/Chest Respiratory/Chest: Reports dyspnea; Denies cough Gastrointestinal Gastrointestinal: Reports diarrhea; Denies abdominal pain, constipation, melena,nausea or vomiting Genitourinary Genitourinary ED: Denies dysuria or hematuria Musculoskeletal Musculoskeletal: Denies arthralgias Integumentary Denies abscess Neurologic Neurologic: Denies headache(s) Psychiatric Psychiatric: Denies anxiety Endocrine Endocrinology: Denies cold intolerance Hematologic/Lymphatic Hematologic/Lymphatic: Reports anemia Allergic/Immunologic Allergic/Immunologic ED: Denies mouth swelling or tongue swelling EXAM Physical Exam Narrative Exam Narrative: Well-appearing 82-year-old female. Vital signs stable afebrile. Pulse ox borderline hypoxia at 90% on room air. Afebrile. She does not look septic or toxic. She is in no distress. H EENT exam unremarkable. Neck nontender no JVD. Lungs diminished in both bases. Heart regular rate at 83. Abdomen soft nontender. Moving all 4 extremities. Calves are nontender without edema or cords. Neurologically she is awake and alert with no focal motor deficits. Const Vital Signs: 06/07/23 17:22 06/07/23 19:31 Temperature 97.2 F L Temperature Source Temporal Pulse Rate 83 Respiratory Rate 17 Respiratory Effort Normal Non-Labored Respiratory Pattern Normal Blood Pressure 132/59 H Blood Pressure Mean 83 Pulse Ox 90 Oxygen Delivery Method Room Air Positive well nourished and well developed; Negative for obese, cachectic, contractures or unkempt General Appearance ED: well developed and NAD; Negative for unkempt, cachectic, contractures, cyanotic, diaphoretic or pallor Nutritional Appearance: Negative for cachectic or obese HEENT Reports TM's clear and moist mucous membranes; Denies dry mucous membranes Negative for trauma or tenderness Tympanic Membrane ED: Yes TM's clear Mouth ED: No dry mucous membranes Mouth: No dry mucous membranes Eyes PERRL and EOMs intact bilaterally General Eye ED: Negative for pale conjunctiva or scleral icterus Neck no lymphadenopathy, supple and no JVD General: Negative for tenderness Lymph Lymphatic: Negative for other Chest Wall inspection of chest normal and palpation of chest normal Resp normal respiratory effort and clear to auscultation bilaterally Resp Narrative: Diminished in both bases. Auscultation: diminished lung sounds; Negative for rales, rhonchi or wheezes Cardio regular rate, regular rhythm, S1 normal heart sound, S2 normal heart sound and no murmurs GI normal to inspection, nondistended, normoactive bowel sounds, non-distended and no masses Auscultation: normoactive bowel sounds Palpation: soft; Negative for tender or guarding Back/Spine no CVA tenderness General Back: Negative for CVA tenderness Cervical Spine: Negative for cervical spine tenderness Thoracic Spine / Upper Back: Negative for thoracic spinal tenderness Lumbar Spine / Lower Back: Negative for lumbar spinal tenderness Extremity normal to inspection General Extremety ED: Negative for edema or tenderness General Extremity: Negative for edema Neuro oriented x3 and CN's II-XII intact bilaterally Sensorium / Orientation: alert; Negative for orientation impaired, lethargic or stuporous Motor Exam: strength 5/5 throughout; Negative for general weakness or strength abnormal Psych mental status grossly normal Appearance: Negative for unkempt Attitude: No agitated Mood & Affect: Negative for depressed, anxious or tearful Skin no rashes or lesions noted and no wounds General Skin Exam: Negative for elasticity normal, jaundice or pallor Lesions: No lesion noted Rashes: No rashes noted Trauma: Negative for abrasion Wounds: Negative for wounds noted MDM MDM MDM Narrative Medical decision making narrative: 82-year-old female recent admission for pneumonia and had new onset A-fib on that admission. Had outpatient labs done today had a worsening anemia with a hemoglobin around 9.3, new onset hyponatremia with a sodium of 126 and previously was 138 and bilateral pleural effusions with a recent echocardiogram that showed an EF of 60%. 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 I have already spoken to the hospitalist she will be admitted for further evaluation and work-up. She has been typed and screened. History & Record Review Discussion w/independent historian: Patient Additional record(s) reviewed:: Prior inpatient record, Prior outpatient record,Prior ED visit and Prior labs Lab Data Attestation: I reviewed the patient's lab results. Lab results narrative: Sodium low at 126 previously 138. Hemoglobin low at 9.3. Previously over 10. Chest x-ray done earlier today with bilateral pleural effusions. Radiography Chest X-Ray - ED: 1 View, Read by ED Physician, Read by Radiologist, Normal, Heart, Lungs, Mediastinum, Bony Structures, No Acute Disease, Chronic Changes, Right Effusion and Left Effusion Diagnostic Testing: Chest x-ray done earlier today showed bilateral pleural effusions. Chronic changes. Interpreted both by myself and the radiologist. Rhythm Strip Rhythm Strip: Sinus Rhythm Rate: 83 Ectopy: None EKG Initial EKG: Attestation: I personally reviewed and interpreted this EKG as follows: Interpretation: Sinus Rhythm and No Acute Injury Pattern Comments: Normal sinus rhythm rate 83 no acute signs of OK or ischemia. Discharge Plan Dx/Rx/DC Orders Clinical Impression: Exertional dyspnea, Anemia, History of atrial fibrillation, Bilateral pleural effusion, Acute hyponatremia Disposition Disposition: Acute Care [facility] What to do if you have Problems For any increased pain, shortness of breath, bleeding, nausea or vomiting, chestpain, or any unexpected problems, contact your Primary Care Provider. Call [facility] ([phone]) or report to the closest Emergency Room. Call 911 if necessary. 06/08/23 0026 <Electronically signed by Binh Ken MD> Cosigner Signature (if applicable): CC: Dr. Coy Nath, DO ~ Signed [facility] Work Phone: 1(572) 176-947710-23-2023 History and physical note Author Colton Mayfield [facility] June 07, 2023 8:55pm Note Date/Time June 07, 2023 8 :47pm [facility] Medical Records Department [address] [place] [address] H&P Exam - Hospitalist 06/07/232031 MR#: [id number] Acct: [id number] Name: MODESTA COOK Rep #:[id number] : 1940 82 From: Colton Danielson PCP: Dr. Coy Nath, DO Status:AD M IN Location: [place] [address] HPI - General General Date of Admission: 06/07/23 Date of Service: 06/07/23 Chief Complaint: Shortness of breath, fatigue after 1 to 2 days of discharge on 05/26/2023. Diarrhea for 3 to 4 days HPI Narrative MODESTA COOK, is a 82 F came to ER for shortness of breath for about 7 to 8 days mainly exertional walking within the home. Patient uses cane. Patient wasdischarged on 05/26/2023 after treatment for pneumonia and A-fib with RVR. Patient also has diarrhea at well-versed on the past Wednesday multiple times watery in nature without blood. Patient saw her PCP and had blood work which showed anemia hemoglobin 9.3/29.6, elevated white count and platelet count. 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 X-ray was done which shows bilateral small to moderate effusion with atelectasis. Twelve-lead EKG is ordered. Vitals done in the ER shows heart rate and blood pressure normal range pulse ox 90% on room air. [facility] Medical History Arthritis Atrial fibrillation Cardiac murmur Chronic back pain Chronic pain Frequent headaches Frequent UTI History of hemorrhoids History of pneumonia History of stomach ulcers Hyperlipemia Hypertension NECK/BACK PAIN Shortness of breath Home Medications aspirin 81 mg tablet,delayed release 81 mg PO DAILY HEART 11/24/16 [History Last Taken Unknown] methylcellulose (laxative) 500 mg tablet (Citrucel) 500 mg PO DAILY PRN constipation 01/08/21 [History Last Taken Unknown] hydrochlorothiazide 12.5 mg tablet 12.5 mg PO DAILY BP #90 tabs 11/24/22 [Rx Last Taken Unknown] potassium chloride 20 mEq tablet,extended release 20 meq PO DAILY SUPPLEMENT #90tabs 01/14/23 [Rx Last Taken Unknown] pravastatin 40 mg tablet 40 mg PO DAILY CHOLESTROL #90 tabs 01/14/23 [Rx Last Taken Unknown] telmisartan 80 mg tablet 80 mg PO DAILY OK #90 ea 01/14/23 [Rx Last Taken Unknown] amlodipine 10 mg tablet 10 mg PO DAILY BP #90 tabs 03/23/23 [Rx Last Taken Unknown] cetirizine 10 mg tablet (Zyrtec) 10 mg PO QHS allergy symptoms 06/07/23 [History Last Taken Unknown] diltiazem HCl 120 mg capsule,extended release 24 hr (Cardizem CD) 120 mg PO DAILY BP 06/07/23 [History Last Taken Unknown] fluticasone propionate 50 mcg/actuation nasal spray,suspension (Flonase Allergy Relief) 2 spray intranasal DAILY PRN nasal congestion 06/07/23 [History Last Taken Unknown] Allergy/AdvReac Type Severity Reaction Status Date / Time nitroglycerin Allergy Mild NEEDS Verified 06/07/23 17:22 FOLLOW-UP chlorpheniramine AdvReac Other Verified 06/07/23 17:22 [From Actifed Cold-Allergy] phenylephrine AdvReac Other Verified 06/07/23 17:22 [From Actifed Cold-Allergy] pseudoephedrine AdvReac Other Verified 06/07/23 17:22 [From Actifed Cold-Allergy] triprolidine AdvReac Other Verified 06/07/23 17:22 [From Actifed Cold-Allergy] Family History Mother Diabetes Hypertension CVA (cerebral vascular accident) Father Myocardial infarction, Onset Age: 80 Brother Cancer Surgical History History of appendectomy History of back surgery History of foot surgery History of hysterectomy History of tonsillectomy Social History Smoking Status: Never smoker alcohol intake: never substance use type: does not use what type of physical activity do you participate in: walking frequency: daily ROS ROS Narrative Constitutional: Reports generalized fatigue and weakness. Patient felt subjective fever and chills but has not measured temperature. HEENT: Reports systems reviewed and no addt'l complaints, except as documented Respiratory/Chest: As described in HPI. CVS: Left anterior pleuritic chest pain on coughing or deep breathing for about 7 to 12 days from previous admission. Gastrointestinal: Diarrhea as described in HPI. No GI bleed. Mild nausea. Denies abdominal pain. Denies coffee ground emesis, hematemesis or vomiting Genitourinary: Denies any acute decrease in urine output. Denies burning urination or new urinary tract symptoms Musculoskeletal: Denies acute joint pain or limited range of motion. No acute injury. Chronic arthritis pain on walker. Neurologic: Denies seizure-like symptoms. No acute or strokelike symptoms. skin: No ulcer. No rash Endocrinology: Reports systems reviewed and no addt'l complaints, except as documented Hematologic/Lymphatic: Reports systems reviewed and no addt'l complaints, exceptas documented Rest 14 ROS are negative except as mentioned in HPI Vital Signs Vital Signs Vital Signs: 06/07/23 17:22 06/07/23 19:31 06/07/23 20:02 Temperature 97.2 F L Temperature Source Temporal Pulse Rate 83 Respiratory Rate 17 Respiratory Effort Normal Non-Labored Respiratory Pattern Normal Blood Pressure 132/59 H Blood Pressure Mean 83 Pulse Ox 90 85 Oxygen Delivery Method Room Air Room Air Oxygen Flow Rate (L/min) 06/07/23 20:02 06/07/23 20:02 06/07/23 20:03 Temperature 97.9 F Temperature Source Temporal Pulse Rate 77 75 Respiratory Rate 19 H 19 H Respiratory Effort Respiratory Pattern Blood Pressure 162/58 H 162/58 H Blood Pressure Mean 92 92 Pulse Ox 91 92 90 Oxygen Delivery Method Nasal Cannula Nasal Cannula Oxygen Flow Rate (L/min) 2 2 Weight Weight: 164 lb 3.91 oz Body Mass Index (BMI) 30.0 Physical Exam Narrative General: Alert, Oriented x3, Cooperative HEENT: Atraumatic, PERRLA, EOMI, Normocephalic Oral: No Gingival or Mucosal Lesions/ Ulcerations Neck: Supple, No JVD, Negative Carotid Bruits Lungs: Air entry diminished in bilateral lung bases. Stoning dullness bilateral lung below eighth rib posteriorly. No crepitations. Cardiovascular: Regular rate, Regular Rhythm, Normal S1, Normal S2, soft systolic murmur. Skin attached monitor Abdomen: Bowel Sounds Present, Soft, Non Tender, Non-Distended : No renal angle tenderness. No suprapubic tenderness. Extremities: No edema, Capillary Refill Less than 3 Seconds Skin: No rashes, No breakdown Musculoskeletal: No Tenderness to Palpation of Joints or Extremities. ROM restricted at knee and hip joints. Degenerative arthritis at knees and hip joints. Muscle strength 4+/5 at knees and hip joints. Neurological: Cranial nerves II-XII grossly intact, DTR 2+/4. No acute focal neurological deficit. Psych/Mental Status: Flat affect. Assessment & Plan Assessment/Plan (1) Bilateral pleural effusion: (2) Exertional dyspnea: PLAN: This 82-year-old female admitted with multiple complaints along with abnormal lab work. 1. Generalized fatigue and dyspnea on exertion most likely due to diarrhea coupled with bilateral pleural effusion and atelectasis: Patient was discharged on Levaquin 750 mg every 48 hourly total 2 tablets. Patient is not having any fever no hypoxia or tachypnea therefore incentive spirometry and Pep ordered. Respiratory panel and COVID-19 PCR ordered. UA with urine culture, sputum culture and blood culture ordered. Chest x-ray shows bilateral pleural effusionbut I do not think its tappable/thoracocentesis. 2. Diarrhea with suspicion of possible C. difficile colitis: Patient completed antibiotic recently. Stool for C. difficile enteric bacteriology panel ordered. BUNs/creatinine elevated suggestive of dehydration therefore IV fluid normal saline ordered. Continue potassium supplement. 3. Subacute hyponatremia most likely due to diarrhea: Patient sodium is 126 chloride 94. Patient's sodium was 138 on 05/26/2023. IV fluid normal saline rest as mentioned above. 4. History of recent A-fib: Patient had A-fib with RVR during recent admission. At that time patient was treated with Cardizem drip and transition to metoprolol. Recent 2D echo on 05/26/2023 shows normal LV ventricle EF 60%. PASP 26 mmHg. Patient is on baby aspirin and diltiazem CD. 5. Normocytic anemia of chronic disease: H&H 9.11/11.6. 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 Leukocytosis, 15,000 mainly neutrophil 81%. Type and crossmatch. I do not think patient needs antibiotic as she just completed it.. Stool for occult blood ordered. Protonix ordered. Other comorbidities include Hypertension and dyslipidemia: Hold HCTZ as patient is having diarrhea and dehydrated. Continue ARB. Continue pravastatin. DVT prophylaxis: Heparin 500 subcutaneous twice daily. Discontinue if platelet count drops less than 50,000 or hemoglobin less than 8 g%: Laboratory Results 06/07/23 20:03: Phosphorus Pending, Magnesium Pending, Blood Type Pending, Antibody Screen Pending Living will/advanced directive/end of life care: Patient does have living will or advanced directive. Her daughter near the bedside is power of patent attorney for health. After discussion of benefits/risks procedures involved with full code,DNR CC arrest and DNR CC, the patient opted for full code. Patient and her daughter does want artificial life support including intubation,tube feed, ventilator and/chest compression, central venous catheter, vasopressor and DC shock if needed in the beginning to revive but if it becomes reversible, resistant to treatment then she does not want to prolong the life onthe life support. Total time spent in [id number] encounter in discussion of advanced directive 17 minutes. Charges/Coding Visit Charges Inpatient E&M: 73205 Init Hosp L3 Procedures Hospitalists Procedures: 25161 Advncd Care Plan 30 Min 06/07/232054 <Electronically signed by Colton Mayfield MD> Cosigner Signature (if applicable): CC: Dr. Coy Nath, DO; Dr. Colton Mayfield MD~ Signed [facility] Work Phone: 1(921) 572-106110-11-2023 Progress note Author Sivan Martinez [facility] May 26, 2023 12:42pm Note Date/Time May 26, 2023 8 :55am [facility] Medical Records Department [address] [place] [address] Progress Note - Hospitalist 05/26/23 0852 MR#: [id number] Acct: [id number] Name: MODESTA COOK Rep #:[id number] : 1940 82 From: Sivan Martinez MD PCP: Dr. Coy Nath DO Status:AD M IN Location: [place] [address] Reason for Visit Reason for Visit: Diagnoses Unspecified atrial fibrillation (05/25/23) Pneumonia, unspecified organism (05/25/23) Subjective Subjective Feeling much better today, no chest pain, shortness of breath much improved Objective Data Objective Data Vital Signs: Vital Signs Temp Pulse Resp BP Pulse Ox O2 Del Method O2 Flow Rate 98 F 82 20 H 140/64 H 94 Nasal Cannula 2 05/26/23 04:00 05/26/23 04:00 05/26/23 04:00 05/26/23 04:00 05/26/23 07:13 05/26/23 07:13 05/26/23 07:13 Oxygen Flow Rate (L/min) 2 Oxygen Delivery Method Nasal Cannula Weight: 68.1 kg Body Mass Index (BMI) 27.4 Intake & Output: Intake and Output for Last 24 Hours 05/24/23 05/25/23 05/26/23 23:59 23:59 23:59 Intake Total 183.58 / 183.58 65.83 / 65.83 Output Total 450 / 450 Balance 183.58 / -66.42 -384.17 / -384.17 Lab / Micro Data 05/26/23 06:09 05/26/23 06:09 Labs: Laboratory Results - last 24 hr 05/25/23 11:34: WBC 13.8 H, RBC 3.81 L, Hgb 10.7 L, Hct 33.7 L, MCV 88.5, MCH 28.1, MCHC 31.8 L, RDW Std Deviation 43.0, RDW Coeff of Juve 13.2, Plt Count 540 H, MPV 8.7, Immature Gran % (Auto) 0.800, Neut % (Auto) 78.7 H, Lymph % (Auto) 9.3 L, [place] % (Auto) 7.2, Eos % (Auto) 3.1, Baso % (Auto) 0.9, Absolute Neuts (auto) 10.9 H, Absolute Lymphs (auto) 1.28, Nucleated RBC % 0, Sodium 135 L, Potassium 3.3 L, Chloride 99, Carbon Dioxide 30.0, Anion Gap 6, BUN 17, Creatinine 0.67, Est GFR (MDRD) Af Amer 107, Est GFR (MDRD) Non-Af 89, BUN/Creatinine Ratio 25.2 H, Glucose 120 H, Calcium 9.3, Troponin I High Sens 12, B-Natriuretic Peptide 292.5 H, TSH 8.48 H 05/25/23 12:13: Urine Color Yellow, Urine Clarity Clear, Urine pH 6.0, Ur Specific [place] 1.010, Urine Protein Negative, Urine Glucose (UA) Normal, UrineKetones Negative, Urine Occult Blood 10 H, Urine Nitrite Negative, Urine Bilirubin Negative, Urine Urobilinogen Normal, Ur Leukocyte Esterase 500 H, Urine RBC 0 SEEN, Urine WBC 0-5 SEEN, Ur Squamous Epith Cells 5-10 SEEN, Urine Bacteria 1+, Urine Mucus 0 SEEN 05/26/23 06:09: WBC 9.4, RBC 3.60 L, Hgb 10.2 L, Hct 31.9 L, MCV 88.6, MCH 28.3,MCHC 32.0, RDW Std Deviation 42.9, RDW Coeff of Juve 13.2, Plt Count 552 H, MPV 8.7, Immature Gran % (Auto) 1.100 H, Neut % (Auto) 63.0, Lymph % (Auto) 18.8 L, [place] % (Auto) 9.9, Eos % (Auto) 6.0 H, Baso % (Auto) 1.2 H, Absolute Neuts (auto) 5.9, Absolute Lymphs (auto) 1.77, Nucleated RBC % 0, Sodium 138, Potassium 3.1 L, Chloride 103, Carbon Dioxide 30.0, Anion Gap 5, BUN 14, Creatinine 0.57, Estim Creat Clear Calc 33.71, Est GFR (MDRD) Af Amer 130, Est GFR (MDRD) Non-Af 107, BUN/Creatinine Ratio 24.5 H, Glucose 118 H, Calcium 8.9 Micro: Microbiology 05/25/23 Unknown Urine, Random Legionella Antigen - Final 05/25/23 Unknown Urine, Random Streptococcus pneumoniae Antigen (M - Final 05/25/23 16:01 Nasal Secretion SARS-CoV-2 Antigen (Rapid) - Final Rhythm Strip Rhythm Strip: Sinus Rhythm Rate: 75 Ectopy: PAC(s) Physical Exam Narrative General: Alert, oriented, no apparent distress HEENT: Atraumatic, normocephalic Eyes: Anicteric, normal conjunctiva, extraocular movements grossly intact Neck: Supple Respiratory: Some crackles on left side, normal respiratory effort Cardiovascular: Regular rate, intermittent ectopic beats GI: Soft, nontender, nondistended Extremities: No edema Musculoskeletal: Moving all extremities Neuro: No overt focal neurological deficits Skin: No rashes appreciated Psych: Cooperative Assessment & Plan Assessment/Plan (1) Atrial fibrillation with RVR: (2) Atypical pneumonia: PLAN: Plan 1. Atypical pneumonia with hypoxia/new onset A-fib with RVR ? I will obtain a sputum culture as well as Legionella and strep urine antigen ? COVID testing here was negative, she did do a home COVID test 2 to 3 weeks agowhich was also negative ? We will continue with Levaquin ? Will obtain an echo given her new onset A-fib after the albuterol treatment and placed on a Cardizem drip ? TSH is pending ? If she continues to have A-fib into tomorrow may benefit from anticoagulation otherwise it is possible this could have just been a paroxysmal episode initiated by her albuterol treatment in the ED -05/26: Transition from Cardizem drip to metoprolol p.o. Patient on telemetry, echocardiogram ordered, this was 1 episode while patient was sick and happened after she received albuterol and resolved quickly, will need to discuss risks and benefits of anticoagulation. TSH is actually elevated, will check free T4. Chest x-ray prior to coming to hospital concerning for left-sided consolidation,chest x-ray here with increased interstitial lung markings without discrete consolidation, questionable nodular density in left upper chest. Patient had BNP of 292 with no previous values, awaiting echo. Urine antigens negative, COVID-negative. Continue Levaquin. Patient feeling much better today and has follow-up with her production support developer tomorrow, pending echocardiogram will consider DC with her close outpatient follow-up available and event monitor as well as antibiotics. 2. HTN/HLD ? Blood pressures are stable, will continue with the Cardizem drip and resume her home blood pressure medications ? Continue with pravastatin ? We will monitor her blood pressure make adjustments as necessary -05/26: Metoprolol added and patient now off Cardizem drip. Sinus arrhythmia ontelemetry with no further A-fib DVT: Lovenox 36 minutes was spent on direct patient care, including documentation as well as chart review and collaboration with colleagues Charges/Coding Visit Charges Inpatient E&M: 70227 Subs Hosp L2 05/26/23 1242 <Electronically signed by Sivan Martinez MD> Cosigner Signature (if applicable): CC: ~ Signed [facility] Work Phone: 1(385) 973-184310-10-2023 History and physical note Author Anjum Wilson [facility] May 25, 2023 7:31pm Note Date/Time May 25, 2023 5 :38pm [facility] Medical Records Department [address] [place] [id number] H&P Exam - Hospitalist 05/25/23 1719 MR#: [id number] Acct: [id number] Name: MODESTA COOK Rep #:[id number] : 1940 82 From: Anjum king MD PCP: Dr. Coy Nath, DO Status:AD M IN Location: [facility] [id number] HPI - General General Date of Admission: 05/25/23 HPI Narrative MODESTA COOK, is a 82 F who presents to the hospital with cough, fever, fatigue as well as shortness of breath and hypoxia. She had been feeling unwellfor the last several weeks and then developed a fever and chills at home so she went to an urgent care today where they obtained a chest x-ray that showed a left-sided atypical pneumonia and she was also found to be hypoxic down to 88% on room air. They encouraged her to come to the ER where she noted to have somecrackles in her left lung so she was given a albuterol treatment however this caused her to go into A-fib with RVR though she cannot feel it. She does not have a previous history of A- fib RVR and she was started on a Cardizem drip in the ED. She denies any chest pain or lightheadedness. [facility] Medical History (Updated 05/25/23 @ 16:27 by Vale Quintero) Arthritis Atrial fibrillation Cardiac murmur Chronic back pain Chronic pain Frequent headaches Frequent UTI History of hemorrhoids History of pneumonia History of stomach ulcers Hyperlipemia Hypertension NECK/BACK PAIN Shortness of breath Home Medications aspirin 81 mg tablet,delayed release 81 mg PO DAILY 11/24/16 [History Last Taken Unknown] methylcellulose (laxative) 500 mg tablet (Citrucel) 500 mg PO DAILY 01/08/21 [History Last Taken Unknown] fluticasone propionate 50 mcg/actuation nasal spray,suspension (Flonase Allergy Relief) 2 spray intranasal DAILY #15.8 grams 09/02/21 [Rx Last Taken Unknown] hydrochlorothiazide 12.5 mg tablet 12.5 mg PO DAILY #90 tabs 11/24/22 [Rx Last Taken Unknown] potassium chloride 20 mEq tablet,extended release 20 meq PO DAILY #90 tabs 01/14/23 [Rx Last Taken Unknown] pravastatin 40 mg tablet 40 mg PO DAILY #90 tabs 01/14/23 [Rx Last Taken Unknown] telmisartan 80 mg tablet 80 mg PO DAILY #90 ea 01/14/23 [Rx Last Taken Unknown] amlodipine 10 mg tablet 10 mg PO DAILY #90 tabs 03/23/23 [Rx Last Taken Unknown] Allergy/AdvReac Type Severity Reaction Status Date / Time nitroglycerin Allergy Mild NEEDS Verified 05/25/23 10:51 FOLLOW-UP chlorpheniramine AdvReac Other Verified 05/25/23 10:51 [From Actifed Cold-Allergy] phenylephrine AdvReac Other Verified 05/25/23 10:51 [From Actifed Cold-Allergy] pseudoephedrine AdvReac Other Verified 05/25/23 10:51 [From Actifed Cold-Allergy] triprolidine AdvReac Other Verified 05/25/23 10:51 [From Actifed Cold-Allergy] Family History Mother Diabetes Hypertension CVA (cerebral vascular accident) Father Myocardial infarction, Onset Age: 80 Brother Cancer Surgical History History of appendectomy History of back surgery History of foot surgery History of hysterectomy History of tonsillectomy Social History Smoking Status: Never smoker alcohol intake: never substance use type: does not use what type of physical activity do you participate in: walking frequency: daily ROS Constitutional Constitutional: Reports chills, fatigue and fever(s); Denies malaise Eyes Eyes: Denies blurry vision ENT HEENT: Denies headache(s) or nasal discharge Cardiovascular Cardiovascular: Reports dyspnea on exertion; Denies chest pain or syncope Respiratory/Chest Respiratory/Chest: Reports cough; Denies shortness of breath at rest or shortness of breath with exertion Gastrointestinal Gastrointestinal: Denies constipation, diarrhea, nausea or vomiting Genitourinary Genitourinary: Denies dysuria Neurologic Neurologic: Denies focal weakness, numbness or tremor(s) Psychiatric Psychiatric: Denies anxiety or depression Vital Signs Vital Signs Vital Signs: 05/25/23 10:51 05/25/23 11:32 05/25/23 11:58 Temperature 97.2 F L 97.5 F L Temperature Source Temporal Temporal Pulse Rate 73 70 78 Respiratory Rate 16 16 17 Respiratory Effort Respiratory Pattern Normal Blood Pressure 135/67 H 126/85 H Blood Pressure Mean 89 98 Pulse Ox 95 90 Oxygen Delivery Method Room Air Oxygen Flow Rate (L/min) 05/25/23 12:16 05/25/23 12:16 05/25/23 12:59 Temperature Temperature Source Pulse Rate Respiratory Rate Respiratory Effort Short of Breath Respiratory Pattern Blood Pressure Blood Pressure Mean Pulse Ox 88 Oxygen Delivery Method Room Air Room Air Room Air Oxygen Flow Rate (L/min) 05/25/23 13:11 05/25/23 14:53 05/25/23 15:20 Temperature Temperature Source Pulse Rate 139 H 121 H 133 H Respiratory Rate 25 H 20 H 25 H Respiratory Effort Respiratory Pattern Blood Pressure 145/86 H 138/85 H 132/80 H Blood Pressure Mean 105 102 97 Pulse Ox 94 90 94 Oxygen Delivery Method Nasal Cannula Room Air Nasal Cannula Oxygen Flow Rate (L/min) 2 2 05/25/23 15:44 05/25/23 15:46 05/25/23 17:06 Temperature 97.8 F Temperature Source Pulse Rate 130 H 130 H Respiratory Rate 26 H 23 H Respiratory Effort Respiratory Pattern Blood Pressure 132/80 H 132/80 H Blood Pressure Mean 97 97 Pulse Ox 94 94 94 Oxygen Delivery Method Nasal Cannula Oxygen Flow Rate (L/min) 2 Weight Weight: 150 lb 2.157 oz Body Mass Index (BMI) 27.4 Physical Exam Narrative General: Alert, Oriented x3, Cooperative, No apparent distress HEENT: Atraumatic, PERRLA, EOMI, Normocephalic Oral: Moist Mucosa Neck: Supple, No JVD Lungs: Diminished, Normal air movement, No rhonchi, No wheeze, No rales, left- sided crackles Cardiovascular: Irregular rate and rhythm, Normal S1, Normal S2, No murmurs Abdomen: Soft, Non Tender, Non-Distended, No Hepato-splenomegaly Extremities: No edema, Capillary Refill Less than 3 Seconds Skin: No rashes, No breakdown Musculoskeletal: No Tenderness to Palpation of Joints or Extremities Neurological: Cranial nerves II-XII grossly intact, Motor Exam 5/5 strength throughout, Sensory exam intact to light touch and pain Psych/Mental Status: Normal Affect, Appropriate Results Lab / Micro Data 05/25/23 11:34 05/25/23 11:34 Labs: Laboratory Results - last 24 hr 05/25/23 11:34: WBC 13.8 H, RBC 3.81 L, Hgb 10.7 L, Hct 33.7 L, MCV 88.5, MCH 28.1, MCHC 31.8 L, RDW Std Deviation 43.0, RDW Coeff of Juve 13.2, Plt Count 540 H, MPV 8.7, Immature Gran % (Auto) 0.800, Neut % (Auto) 78.7 H, Lymph % (Auto) 9.3 L, [place] % (Auto) 7.2, Eos % (Auto) 3.1, Baso % (Auto) 0.9, Absolute Neuts (auto) 10.9 H, Absolute Lymphs (auto) 1.28, Nucleated RBC % 0, Sodium 135 L, Potassium 3.3 L, Chloride 99, Carbon Dioxide 30.0, Anion Gap 6, BUN 17, Creatinine 0.67, Est GFR (MDRD) Af Amer 107, Est GFR (MDRD) Non-Af 89, BUN/Creatinine Ratio 25.2 H, Glucose 120 H, Calcium 9.3, Troponin I High Sens 12, B-Natriuretic Peptide 292.5 H 05/25/23 12:13: Urine Color Yellow, Urine Clarity Clear, Urine pH 6.0, Ur Specific [place] 1.010, Urine Protein Negative, Urine Glucose (UA) Normal, UrineKetones Negative, Urine Occult Blood 10 H, Urine Nitrite Negative, Urine Bilirubin Negative, Urine Urobilinogen Normal, Ur Leukocyte Esterase 500 H, Urine RBC 0 SEEN, Urine WBC 0-5 SEEN, Ur Squamous Epith Cells 5-10 SEEN, Urine Bacteria 1+, Urine Mucus 0 SEEN Micro: Microbiology 05/25/23 16:01 Nasal Secretion SARS-CoV-2 Antigen (Rapid) - Final Rhythm Strip Rhythm Strip: Sinus Rhythm Rate: 75 Ectopy: PAC(s) Assessment & Plan Assessment/Plan (1) Atrial fibrillation with RVR: (2) Atypical pneumonia: PLAN: Plan 1. Atypical pneumonia with hypoxia/new onset A-fib with RVR ? I will obtain a sputum culture as well as Legionella and strep urine antigen ? COVID testing here was negative, she did do a home COVID test 2 to 3 weeks agowhich was also negative ? We will continue with Levaquin ? Will obtain an echo given her new onset A-fib after the albuterol treatment and placed on a Cardizem drip ? TSH is pending ? If she continues to have A-fib into tomorrow may benefit from anticoagulation otherwise it is possible this could have just been a paroxysmal episode initiated by her albuterol treatment in the ED 2. HTN/HLD ? Blood pressures are stable, will continue with the Cardizem drip and resume her home blood pressure medications ? Continue with pravastatin ? We will monitor her blood pressure make adjustments as necessary DVT: Lovenox 77 minutes was spent on direct patient care, including documentation as well as chart review and collaboration with colleagues Charges/Coding Visit Charges Inpatient E&M: 27515 Init Hosp L3 05/25/231930 <Electronically signed by Anjum Wilson MD> Cosigner Signature (if applicable): CC: Dr. Coy Nath, DO; Dr. Anjum Wilson MD~ Signed [facility] Work Phone: 1(535) 603-549010-10-2023 Discharge summary Author Reinier Toney [facility] May 25, 2023 3:30pm Note Date/Time May 25, 2023 1 1:10am [facility] Medical Records Department [address] [place] [address] Emergency Department Summary 05/25/23 MR#: [id number] Acct: [id number] Name: MODESTA COOK Rep #:[id number] : 1940 82 From: Reinier Toney MD PCP: Dr. Coy Nath, DO Status:RE G ER Location: ED HPI History of Present Illness Chief Complaint: Shortness of Breath Informant: patient Associated Symptoms cough Chest Pain: Positive for None Narrative Narrative: 82-year-old female has had cough, congestion, cold-like symptoms for the past 2 to 3 weeks which started getting dyspneic yesterday along with some subjective fevers and soreness in her left anterior inframammary rib cage when she moves and coughs and breathes. Cough is nonproductive. No hemoptysis. No edema in her legs or orthopnea or PND, but when she lies down she coughs more which then makes it harder to breathe. She denies any history of chronic heart or lung disease. She takes no anticoagulants. PE Risk Factors: Negative for Cancer, OCP + Smoking + > 35, Prior DVT or PE, Recent immobilization, Recent surgery or Recent travel [facility] Medical History (Updated 05/25/23 @ 15:[address] Reinier Toney MD) Arthritis Cardiac murmur Chronic back pain Frequent headaches Frequent UTI History of hemorrhoids History of pneumonia History of stomach ulcers Hyperlipemia Hypertension NECK/BACK PAIN Shortness of breath Home Medications aspirin 81 mg tablet,delayed release 81 mg PO DAILY 11/24/16 [History Last Taken Unknown] methylcellulose (laxative) 500 mg tablet (Citrucel) 500 mg PO DAILY 01/08/21 [History Last Taken Unknown] fluticasone propionate 50 mcg/actuation nasal spray,suspension (Flonase Allergy Relief) 2 spray intranasal DAILY #15.8 grams 09/02/21 [Rx Last Taken Unknown] hydrochlorothiazide 12.5 mg tablet 12.5 mg PO DAILY #90 tabs 11/24/22 [Rx Last Taken Unknown] potassium chloride 20 mEq tablet,extended release 20 meq PO DAILY #90 tabs 01/14/23 [Rx Last Taken Unknown] pravastatin 40 mg tablet 40 mg PO DAILY #90 tabs 01/14/23 [Rx Last Taken Unknown] telmisartan 80 mg tablet 80 mg PO DAILY #90 ea 01/14/23 [Rx Last Taken Unknown] amlodipine 10 mg tablet 10 mg PO DAILY #90 tabs 03/23/23 [Rx Last Taken Unknown] Allergy/AdvReac Type Severity Reaction Status Date / Time nitroglycerin Allergy Mild NEEDS Verified 05/25/23 10:51 FOLLOW-UP chlorpheniramine AdvReac Other Verified 05/25/23 10:51 [From Actifed Cold-Allergy] phenylephrine AdvReac Other Verified 05/25/23 10:51 [From Actifed Cold-Allergy] pseudoephedrine AdvReac Other Verified 05/25/23 10:51 [From Actifed Cold-Allergy] triprolidine AdvReac Other Verified 05/25/23 10:51 [From Actifed Cold-Allergy] Family History Mother Diabetes Hypertension CVA (cerebral vascular accident) Father Myocardial infarction, Onset Age: 80 Brother Cancer Surgical History History of appendectomy History of back surgery History of foot surgery History of hysterectomy History of tonsillectomy Social History Smoking Status: Never smoker alcohol intake: never substance use type: does not use what type of physical activity do you participate in: walking frequency: daily ROS ROS ED Constitutional Constitutional ED: Reports chills, fatigue, fever(s), malaise and subjective; Denies body ache(s) or headache(s) Eyes Eyes: Denies change in vision or diplopia ENT ENT ED: Denies rhinorrhea or sore throat Cardiovascular Cardiovascular: Denies chest pain or palpitations Respiratory/Chest Respiratory/Chest: Reports cough, dyspnea and dyspnea on exertion Gastrointestinal Gastrointestinal: Denies abdominal pain, diarrhea, nausea or vomiting Genitourinary Genitourinary ED: Denies dysuria or hematuria Musculoskeletal Musculoskeletal: Denies back pain or neck pain Integumentary Denies abscess or rash Neurologic Neurologic: Denies headache(s), paresthesias or weakness Psychiatric Psychiatric: Denies anxiety or suicidal thoughts EXAM Physical Exam Const Vital Signs: 05/25/23 10:51 05/25/23 11:32 05/25/23 11:58 Temperature 97.2 F L 97.5 F L Temperature Source Temporal Temporal Pulse Rate 73 70 78 Respiratory Rate 16 16 17 Respiratory Effort Respiratory Pattern Normal Blood Pressure 135/67 H 126/85 H Blood Pressure Mean 89 98 Pulse Ox 95 90 Oxygen Delivery Method Room Air Oxygen Flow Rate (L/min) 05/25/23 12:16 05/25/23 12:16 05/25/23 12:59 Temperature Temperature Source Pulse Rate Respiratory Rate Respiratory Effort Short of Breath Respiratory Pattern Blood Pressure Blood Pressure Mean Pulse Ox 88 Oxygen Delivery Method Room Air Room Air Room Air Oxygen Flow Rate (L/min) 05/25/23 13:11 05/25/23 14:53 05/25/23 15:20 Temperature Temperature Source Pulse Rate 139 H 121 H 133 H Respiratory Rate 25 H 20 H 25 H Respiratory Effort Respiratory Pattern Blood Pressure 145/86 H 138/85 H 132/80 H Blood Pressure Mean 105 102 97 Pulse Ox 94 90 94 Oxygen Delivery Method Nasal Cannula Room Air Nasal Cannula Oxygen Flow Rate (L/min) 2 2 Positive well nourished and well developed Constitutional Narrative: Malaised-appearing, no distress General Appearance ED: well developed and NAD HEENT Reports moist mucous membranes normocephalic and atraumatic Eyes PERRL and EOMs intact bilaterally Neck full ROM, no lymphadenopathy, supple and no JVD Resp normal respiratory effort and clear to auscultation bilaterally Cardio regular rate, regular rhythm and no murmurs Rate: Negative for tachycardic GI non-tender and non-distended Auscultation: normoactive bowel sounds Palpation: soft Back/Spine no CVA tenderness General Back: other FROM Extremity normal to inspection and no calf tenderness General Extremety ED: Negative for edema, pulses abnormal or tenderness General Extremity: Negative for edema or pulses abnormal Neuro oriented x3, CN's II-XII intact bilaterally and no sensory deficits noted Sensorium / Orientation: awake and alert Motor Exam: strength 5/5 throughout Skin no rashes or lesions noted and no wounds MDM MDM MDM Narrative Medical decision making narrative: Patient had an outpatient chest x-ray today at urgent care. I reviewed the images as well as the report which I agree with, basically showing what appears to be interstitial abnormalities without acute consolidation. Obtain some basiclabs in addition to a troponin and BNP and an EKG. In context of the history, leukocytosis, BNP that is just slightly elevated but probably within normal limits for her age at 82, and an EKG that shows no acute injury pattern, I suspect this is probably infectious in etiology. She was hypoxic at 89% at urgent care which is part of the reason she was sent here. She is doing well atrest here 93-95% on room air. She was given a duo nebulizer treatment, this really helped with her breathing. However, on reevaluation her heart rate is inthe 140s. I reevaluated her, she is asymptomatic with this. EKG was repeated. It is narrow complex, same morphology as her prior EKG, the rhythm definitely different, difficult to tell if this is sinus tachycardia versus AVNRT versus rapid A-fib. On the monitor, she has some occasional irregularities and make itlook like rapid A-fib. She was given adenosine 6 mg after we discussed the reasons, for diagnostics and possibly for therapeutics to break her out of it ifit ended up being AVNRT. She pause, but did not break the rhythm, and on the rhythm strip it is more consistent with atrial fibrillation than anything else. Upon recovering from adenosine she is 140-150. She was given Cardizem 20 mg IV and monitored, and IV Levaquin was started. Her pulse ox went down to 88%, so Istarted her back on oxygen 2 L, and well into the 90s with that. She is breathing well does not need any assistance. Her heart rate only came down to the 130s. Discussed with cardiology they agree with NOT electro cardioverting her, and since we have already waited several hours post albuterol treatment andsteven still has A-fib with RVR, starting her on Cardizem gtt and admitting her would be reasonable. Lab Data Attestation: I reviewed the patient's lab results. Labs: Laboratory Results - last 24 hr 05/25/23 05/25/23 11:34 12:13 WBC 13.8 H RBC 3.81 L Hgb 10.7 L Hct 33.7 L MCV 88.5 MCH 28.1 MCHC 31.8 L RDW Std Deviation 43.0 RDW Coeff of Juve 13.2 Plt Count 540 H MPV 8.7 Immature Gran % (Auto) 0.800 Neut % (Auto) 78.7 H Lymph % (Auto) 9.3 L [place] % (Auto) 7.2 Eos % (Auto) 3.1 Baso % (Auto) 0.9 Absolute Neuts (auto) 10.9 H Absolute Lymphs (auto) 1.28 Nucleated RBC % 0 Sodium 135 L Potassium 3.3 L Chloride 99 Carbon Dioxide 30.0 Anion Gap 6 BUN 17 Creatinine 0.67 Est GFR (MDRD) Af Amer 107 Est GFR (MDRD) Non-Af 89 BUN/Creatinine Ratio 25.2 H Glucose 120 H Calcium 9.3 Troponin I High Sens 12 B-Natriuretic Peptide 292.5 H Urine Color Yellow Urine Clarity Clear Urine pH 6.0 Ur Specific [place] 1.010 Urine Protein Negative Urine Glucose (UA) Normal Urine Ketones Negative Urine Occult Blood 10 H Urine Nitrite Negative Urine Bilirubin Negative Urine Urobilinogen Normal Ur Leukocyte Esterase 500 H Urine RBC 0 SEEN Urine WBC 0-5 SEEN Ur Squamous Epith Cells 5-10 SEEN Urine Bacteria 1+ Urine Mucus 0 SEEN Rhythm Strip Rhythm Strip: Sinus Rhythm Rate: 75 Ectopy: PAC(s) EKG Initial EKG: Attestation: I personally reviewed and interpreted this EKG as follows: Interpretation: Sinus Rhythm, No Acute Injury Pattern and Non-Specific ST Changes Prior: No Prior Follow-up EKG: Attestation: I personally reviewed and interpreted this EKG as follows: Interpretation: No Acute Injury Pattern Comments: Narrow complex tachycardia at [address]-T wave abnormalities and unchanged morphology and axis. Prior: Changed Management Discussion w/another healthcare provider: Hospitalist and Supervisor [facility] Critical Care Time Critical Care Time: Yes Critical care time (excluding procedures): 30-74 minutes (36 min), Including time spent:, Discussing w/Patient &/or Family/Jewellery Designer, Discussing w/Consultants, Arranging Admission or Transfer and Performing Direct Patient Care at Bedside Discharge Plan Triage Chief Complaint: Shortness of Breath ED Provider: Reinier Toney Dx/Rx/DC Orders Clinical Impression: Atypical pneumonia, Hypoxemia, Atrial fibrillation with RVR Prescriptions: No Action Citrucel 500 mg tablet 500 mg PO DAILY fluticasone propionate [Flonase Allergy Relief] 50 mcg/actuation spray,suspension 2 spray intranasal DAILY Qty: 15.8 1RF Rx Instructions: administer into each nostril aspirin 81 MG tablet,delayed release (DR/EC) 81 mg PO DAILY hydrochlorothiazide 12.5 mg tablet 12.5 mg PO DAILY Qty: 90 2RF Rx Instructions: Take 1 tablet by mouth daily potassium chloride 20 mEq tablet extended release 20 meq PO DAILY Qty: 90 3RF pravastatin 40 mg tablet 40 mg PO DAILY Qty: 90 3RF telmisartan 80 mg tablet 80 mg PO DAILY Qty: 90 3RF amlodipine 10 mg tablet 10 mg PO DAILY Qty: 90 0RF Primary Care Provider: Coy Nath Referrals: Coy Nath, [Primary Care Provider] - What to do if you have Problems For any increased pain, shortness of breath, bleeding, nausea or vomiting, chestpain, or any unexpected problems, contact your Primary Care Provider. Call [facility] ([phone]) or report to the closest Emergency Room. Call 911 if necessary. 05/25/23 1530 <Electronically signed by Reinier Toney MD> Cosigner Signature (if applicable): CC: Dr. Coy Nath, ~ Signed [facility] Work Phone: Consult note Author David Arevalo [facility] May 26, 2023 4:04pm Note Date/Time May 26, 2023 4 :04pm [facility] Medical Records Department [address] [place] [id number] Counseling Note - Pharmacy 05/26/23 1603 MR#: [id number] Acct: [id number] Name: MODESTA COOK Rep #:[id number] : 1940 82 From: David Arevalo PCP: Dr. Coy Nath DO Status:NELLY S IN Y Location: [facility] [id number] Pharmacy [facility] has performed discharge medication reconciliation and counseling for this patient. The patient's discharge medication list was reviewed for discrepancies and discrepancies were resolved. The patient was counseled on the following discharge medications and changes in medications for homegoing were reviewed. The Reason for Use, instructions for use, and potential side effects were reviewed for all new medications. The patient's questions regarding all of their medications were answered. 1. Levofloxacin 750 mg PO every other day x 2 doses (05/27 and 05/29) 2. Metoprolol tartrate 12.5 mg PO BID The patient was able to verbally demonstrate an understanding of their dischargemedications. Medications at Discharge Home Medications aspirin 81 mg tablet,delayed release 81 mg PO DAILY 11/24/16 methylcellulose (laxative) 500 mg tablet (Citrucel) 500 mg PO DAILY 01/08/21 fluticasone propionate 50 mcg/actuation nasal spray,suspension (Flonase Allergy Relief) 2 spray intranasal DAILY #15.8 grams 09/02/21 hydrochlorothiazide 12.5 mg tablet 12.5 mg PO DAILY #90 tabs 11/24/22 potassium chloride 20 mEq tablet,extended release 20 meq PO DAILY #90 tabs 01/14/23 pravastatin 40 mg tablet 40 mg PO DAILY #90 tabs 01/14/23 telmisartan 80 mg tablet 80 mg PO DAILY #90 ea 01/14/23 amlodipine 10 mg tablet 10 mg PO DAILY #90 tabs 03/23/23 levofloxacin 750 mg tablet 750 mg PO QODAY 4 days #2 tabs 05/26/23 metoprolol tartrate 25 mg tablet 12.5 mg (1/2 x 25 mg) PO BID 30 days #30 tabs 05/26/23 05/26/23 1604 <Electronically signed by David alfonso> Date _ David Mittal Signature (if applicable): Date CC: ~ Signed [facility] Work Phone: Discharge summary Author Sivan Martinez [facility] May 26, 2023 3:30pm Note Date/Time May 26, 2023 3 :09pm [facility] Medical Records Department [address] [place] [address] Instructions for Home/Discharge Instructions 05/26/23 1508 MR#: [id number] Acct: [id number] Name: MODESTA COOK Rep #:[id number] : 1940 82 From: Sivan Martinez MD PCP: Dr. Coy Nath, DO Status:AD M IN Discharge Instructions Diet Discharge Diet: - (DASH diet) Activity Discharge Activity: Return to Normal Activity Follow Up Care Test Results: Test results from this visit will be discussed in further detail at your follow- up appointment, if applicable. Discharge Plan Admission Admit Date/Time: 05/25/23 17:19 Primary Reason for Your Visit: Shortness of breath Attending Provider: Sivan Martinez Primary Care Provider: Coy Nath Consulting Providers: Anjum Wilson Instructions Patient Instructions: ED Pneumonia (Adult) Additional Instructions / Restrictions: DISCHARGE INSTRUCTIONS PLEASE READ *Please take this with you to your next doctors appointment* -When you received a breathing treatment for your shortness of breath in the emergency department you experienced an abnormal heart rhythm, atrial fibrillation, with a fast rate into the 140's. This improved with IV medicine and you were transitioned to oral metoprolol which you will be discharged on. -We discussed anticoagulation as well as risks and benefits given single episodeof A-fib, ultimately was decided that you would discuss this with your production support developer tomorrow at your follow-up appointment. Imperative that you follow-up with your production support developer as scheduled -We will discharge you with a prescription for an event monitor to monitor for any further atrial fibrillation -A prescription for 4 more days of Levaquin for your pneumonia will be sent to preferred pharmacy on file, Given your age and kidney function, this medicine istaken every 48 hours so you will take a dose 05/27 and 05/29 and will be completed with treatment. You were walked to assess for need for home oxygen anddid not require home oxygen on discharge -You are noted to have a small 6-7mm right lower lobe pulmonary nodules, close short-term interval follow-up or 3 month follow up is recommended -Please call your primary care provider's office upon discharge to schedule a hospital follow up within 1 week. -For any concerning signs or symptoms please call 911 or proceed to the nearest emergency department Discharge Orders/Prescriptions Prescriptions: New metoprolol tartrate 25 mg Tablet 12.5 mg PO BID 30 Days Qty: 30 0RF levofloxacin 750 mg tablet 750 mg PO QODAY 4 Days Qty: 2 0RF Rx Instructions: First dose 05/27, second dose 05/29 Continued Citrucel 500 mg tablet 500 mg PO DAILY fluticasone propionate [Flonase Allergy Relief] 50 mcg/actuation spray,suspension 2 spray intranasal DAILY Qty: 15.8 1RF Rx Instructions: administer into each nostril aspirin 81 MG tablet,delayed release (DR/EC) 81 mg PO DAILY hydrochlorothiazide 12.5 mg tablet 12.5 mg PO DAILY Qty: 90 2RF Rx Instructions: Take 1 tablet by mouth daily potassium chloride 20 mEq tablet extended release 20 meq PO DAILY Qty: 90 3RF pravastatin 40 mg tablet 40 mg PO DAILY Qty: 90 3RF telmisartan 80 mg tablet 80 mg PO DAILY Qty: 90 3RF amlodipine 10 mg tablet 10 mg PO DAILY Qty: 90 0RF Other Ambulatory Orders: 30 Day Event Recorder Preventi (Urgent) Timeframe: 1 Day Facility: [facility] - Location: Cardiovascular Services Ordered By: Dr. Sivan Martinez Referrals / Follow Up: Coy Nath DO [Primary Care Provider] - Within 1 Week Disposition Disposition (needs filled in before D/C Order can be placed): Home, Self Care 05/26/23 1530<Electronically signed by Sivan Martinez MD>Sivan Martinez MD CC: Dr. Coy Nath DO; Dr. Anjum Wilson MD; Patients production support developer~ Signed [facility] Work Phone: Discharge summary Author Sivan Martinez [facility] May 26, 2023 3:30pm Note Date/Time May 26, 2023 3 :30pm [facility] Medical Records Department [address] [place] [id number] Discharge Summary 05/26/23 1527 MR#: [id number] Acct: [id number] Name: MODESTA COOK Rep #:[id number] : 1940 82 From: Sivan Martinez MD PCP: Dr. Coy Nath DO Status:AD M IN Location: [facility] [id number] Providers Date of Admission: 05/25/23 Date of Discharge: 05/26/23 Primary Care Physician: Dr. Coy Nath DO Reason For Visit: NEW ONSET AFIB W/ RVR, PNA, HYPOXEMIA Diagnosis Discharge Diagnosis (1) Atrial fibrillation with RVR: Status: Acute Code(s): I48.91 - Unspecified atrial fibrillation (2) Atypical pneumonia: Status: Acute Code(s): J18.9 - Pneumonia, unspecified organism Plan #Atypical pneumonia with hypoxia #new onset A-fib with RVR- resolved #Sinus arrhythmia #HTN/HLD Medications at Discharge Home Medications aspirin 81 mg tablet,delayed release 81 mg PO DAILY 11/24/16 methylcellulose (laxative) 500 mg tablet (Citrucel) 500 mg PO DAILY 01/08/21 fluticasone propionate 50 mcg/actuation nasal spray,suspension (Flonase Allergy Relief) 2 spray intranasal DAILY #15.8 grams 09/02/21 hydrochlorothiazide 12.5 mg tablet 12.5 mg PO DAILY #90 tabs 11/24/22 potassium chloride 20 mEq tablet,extended release 20 meq PO DAILY #90 tabs 01/14/23 pravastatin 40 mg tablet 40 mg PO DAILY #90 tabs 01/14/23 telmisartan 80 mg tablet 80 mg PO DAILY #90 ea 01/14/23 amlodipine 10 mg tablet 10 mg PO DAILY #90 tabs 03/23/23 levofloxacin 750 mg tablet 750 mg PO QODAY 4 days #2 tabs 05/26/23 metoprolol tartrate 25 mg tablet 12.5 mg (1/2 x 25 mg) PO BID 30 days #30 tabs 05/26/23 Hospital Course Summary of Care Provided Minutes Spent on Discharge: 32 Hospital Course: 82-year-old female history of hypertension and UTIs presented to [facility] 05/25/2023 with shortness of breath and hypoxia worsening forseveral weeks. She went to urgent care and had chest x-ray concerning for left pneumonia and had an O2 sat of 88% on room air. Sent to ED, given an albuterol treatment and heart rate flipped into A-fib with RVR, she was given adenosine which slowed down the rate and did reveal underlying A-fib. Given this did not resolve she was started on Cardizem drip and hospitalist consulted for admission. She did have signs and symptoms consistent with pneumonia and was started on Levaquin. She converted back to a nonatrial fibrillation rhythm withnormal heart rate and was off Cardizem for a number of hours. Telemetry did show sinus arrhythmia with no further A-fib and she was placed on metoprolol. Echocardiogram ordered and unremarkable. Discussed risks and benefits of anticoagulation given her 1 episode of A-fib and unclear if this is something that she may be experiencing but is just unaware of it. She has a follow-up appointment with her production support developer tomorrow and would like to discuss this with them prior to initiating anticoagulation. Did have chest x-ray which was concerning for nodule in lung and follow-up CT recommended so CT scan ordered which showed 6 to 7 mm noncalcified right lower lobe pulmonary nodules which maybe benign or not and recommended close short-term interval follow-up in 3 monthsand also an opacity on the left side concerning for pneumonia. Patient feeling much better on day of discharge after receiving antibiotics, ambulated to assessfor home O2 needs and patient did not qualify for oxygen. Discussed discharge with patient and family member at bedside and all questions answered, comfortable with discharge home. Discharge instructions as followed: DISCHARGE INSTRUCTIONS PLEASE READ *Please take this with you to your next doctors appointment* -When you received a breathing treatment for your shortness of breath in the emergency department you experienced an abnormal heart rhythm, atrial fibrillation, with a fast rate into the 140's. This improved with IV medicine and you were transitioned to oral metoprolol which you will be discharged on. -We discussed anticoagulation as well as risks and benefits given single episodeof A-fib, ultimately was decided that you would discuss this with your production support developer tomorrow at your follow-up appointment. Imperative that you follow-up with your production support developer as scheduled -We will discharge you with a prescription for an event monitor to monitor for any further atrial fibrillation -A prescription for 4 more days of Levaquin for your pneumonia will be sent to preferred pharmacy on file, Given your age and kidney function, this medicine istaken every 48 hours so you will take a dose 05/27 and 05/29 and will be completed with treatment. You were walked to assess for need for home oxygen anddid not require home oxygen on discharge -You are noted to have a small 6-7mm right lower lobe pulmonary nodules, close short-term interval follow-up or 3 month follow up is recommended -Please call your primary care provider's office upon discharge to schedule a hospital follow up within 1 week. -For any concerning signs or symptoms please call 911 or proceed to the nearest emergency department Physical Exam Narrative General: Alert, oriented, no apparent distress HEENT: Atraumatic, normocephalic Eyes: Anicteric, normal conjunctiva, extraocular movements grossly intact Neck: Supple Respiratory: Some crackles on left side, normal respiratory effort Cardiovascular: Regular rate, intermittent ectopic beats GI: Soft, nontender, nondistended Extremities: No edema Musculoskeletal: Moving all extremities Neuro: No overt focal neurological deficits Skin: No rashes appreciated Psych: Cooperative Weight / BMI Weight Weight: 68.1 kg Body Mass Index (BMI) 27.4 ABG / Lab / Microbiology Data 05/26/23 06:09 05/26/23 06:09 Laboratory: Laboratory Results - last 24 hr 05/25/23 11:34: TSH 8.48 H 05/26/23 06:09: WBC 9.4, RBC 3.60 L, Hgb 10.2 L, Hct 31.9 L, MCV 88.6, MCH 28.3,MCHC 32.0, RDW Std Deviation 42.9, RDW Coeff of Juve 13.2, Plt Count 552 H, MPV 8.7, Immature Gran % (Auto) 1.100 H, Neut % (Auto) 63.0, Lymph % (Auto) 18.8 L, [place] % (Auto) 9.9, Eos % (Auto) 6.0 H, Baso % (Auto) 1.2 H, Absolute Neuts (auto) 5.9, Absolute Lymphs (auto) 1.77, Nucleated RBC % 0, Sodium 138, Potassium 3.1 L, Chloride 103, Carbon Dioxide 30.0, Anion Gap 5, BUN 14, Creatinine 0.57, Estim Creat Clear Calc 33.71, Est GFR (MDRD) Af Amer 130, Est GFR (MDRD) Non-Af 107, BUN/Creatinine Ratio 24.5 H, Glucose 118 H, Calcium 8.9, Free T4 1.12 Microbiology: Microbiology 05/25/23 Unknown Urine, Random Legionella Antigen - Final 05/25/23 Unknown Urine, Random Streptococcus pneumoniae Antigen (M - Final 05/25/23 16:01 Nasal Secretion SARS-CoV-2 Antigen (Rapid) - Final Radiography Diagnostic Testing: Radiology Impression Echocardiogram 05/25/23 17:34 Interpretation Summary Normal left ventricle. Left ventricular systolic function is normal. The estimated ejection fraction is 60 %. Mild focal aortic valve calcification. Pulmonary artery systolic pressure is 26 mmHg. Ordering Physician: Anjum Wilson Performed By: Rajendra Whitley RCS Chest CT 05/26/23 11:24 IMPRESSION: 6-7 mm noncalcified right lower lobe pulmonary nodules, which may be benign or metastatic. Recommend close short-term interval follow-up or 3 month follow-up. 9 mm patchy opacity in the left upper lobe and moderate left lower lobe consolidation, concerning for pneumonia. Mild pleural and pericardial effusions. Mild atelectasis of the right middle and lower lobes. Chronic granulomatous disease of the chest and abdomen. Electronically Signed: Bonnie De La Cruz MD at 12:43 EDT Reading Location ID and State: [facility] / [place] Tel , Service support , D/C Instructions Discharge Diet: - (DASH diet) Meaningful Use Info Meaningful Use Diagnoses (Choose all that apply): None applicable Discharge Plan Admission Admit Date/Time: 05/25/23 17:19 Primary Reason for Your Visit: Shortness of breath Attending Provider: Sivan Martinez Primary Care Provider: Coy Nath Consulting Providers: Anjum Wilson Instructions Patient Instructions: ED Pneumonia (Adult) Additional Instructions / Restrictions: DISCHARGE INSTRUCTIONS PLEASE READ *Please take this with you to your next doctors appointment* -When you received a breathing treatment for your shortness of breath in the emergency department you experienced an abnormal heart rhythm, atrial fibrillation, with a fast rate into the 140's. This improved with IV medicine and you were transitioned to oral metoprolol which you will be discharged on. -We discussed anticoagulation as well as risks and benefits given single episodeof A-fib, ultimately was decided that you would discuss this with your production support developer tomorrow at your follow-up appointment. Imperative that you follow-up with your production support developer as scheduled -We will discharge you with a prescription for an event monitor to monitor for any further atrial fibrillation -A prescription for 4 more days of Levaquin for your pneumonia will be sent to preferred pharmacy on file, Given your age and kidney function, this medicine istaken every 48 hours so you will take a dose 05/27 and 05/29 and will be completed with treatment. You were walked to assess for need for home oxygen and did not require home oxygen on discharge -You are noted to have a small 6-7mm right lower lobe pulmonary nodules, close short-term interval follow-up or 3 month follow up is recommended -Please call your primary care provider's office upon discharge to schedule a hospital follow up within 1 week. -For any concerning signs or symptoms please call 911 or proceed to the nearest emergency department Discharge Orders/Prescriptions Prescriptions: New metoprolol tartrate 25 mg Tablet 12.5 mg PO BID 30 Days Qty: 30 0RF levofloxacin 750 mg tablet 750 mg PO QODAY 4 Days Qty: 2 0RF Rx Instructions: First dose 05/27, second dose 05/29 Continued Citrucel 500 mg tablet 500 mg PO DAILY fluticasone propionate [Flonase Allergy Relief] 50 mcg/actuation spray,suspension 2 spray intranasal DAILY Qty: 15.8 1RF Rx Instructions: administer into each nostril aspirin 81 MG tablet,delayed release (DR/EC) 81 mg PO DAILY hydrochlorothiazide 12.5 mg tablet 12.5 mg PO DAILY Qty: 90 2RF Rx Instructions: Take 1 tablet by mouth daily potassium chloride 20 mEq tablet extended release 20 meq PO DAILY Qty: 90 3RF pravastatin 40 mg tablet 40 mg PO DAILY Qty: 90 3RF telmisartan 80 mg tablet 80 mg PO DAILY Qty: 90 3RF amlodipine 10 mg tablet 10 mg PO DAILY Qty: 90 0RF Other Ambulatory Orders: 30 Day Event Recorder Preventi (Urgent) Timeframe: 1 Day Facility: [facility] - Location: Cardiovascular Services Ordered By: Dr. Sivan Martinez Referrals / Follow Up: Coy Nath DO [Primary Care Provider] - Within 1 Week Disposition Disposition (needs filled in before D/C Order can be placed): Home, Self Care Charges/Coding Visit Charges Inpatient E&M: 51204 Disch Hosp >30min 05/26/23 1530 <Electronically signed by Sivan Martinez MD> Cosigner Signature (if applicable): CC: Dr. Coy Nath DO; Dr. Sivan Martinez MD~ Signed [facility] Work Phone: Evaluation + Plan note Future Appointments Appointment Date:07/07/2023 11:00:00 AM Scheduled Provider:SAMMI ARREDONDO Location:[facility] Appointment Type:CV [facility] evaluation note* Diagnosis Onset Date Resolution Status Hyperlipemia chronic Hypertension chronic Urge incontinence of urine c hronic [facility] Work Phone: Evaluation note* Diagnosis Onset Date Resolution Status Cystitis acute [facility] Work Phone: evaluation note* Diagnosis Onset Date Resolution Status Cystitis acute Sinusitis chronic, frontal a cute UTI (urinary tract infection), bacterial acute Hypertension chronic Allergic drug rash due to anti-infective agent acute Shortness of breath acute Atrial fibrillation with RVR acute Atypical pneumonia acute Hypoxemia acute [facility] Work Phone: Evaluation note* Diagnosis Onset Date Resolution Status Cystitis acute Sinusitis chronic, frontal a cute UTI (urinary tract infection), bacterial acute Hypertension chronic Allergic drug rash due to anti-infective agent acute Shortness of breath acute Atypical pneumonia acute Atrial fibrillation with RVR resolved Hypoxemia resolved Atypical pneumonia acute Elevated glucose noneactive Diarrhea noneactive Lung nodule noneactive Syncope noneactive Hospital discharge follow-up noneactive Atrial fibrillation with RVR noneactive Acute hyponatremia acute Anemia acute Bilateral pleural effusion a cute Exertional dyspnea acute History of atrial fibrillation acute [facility] Work Phone: Evaluation note* Diagnosis Onset Date Resolution Status Sinusitis chronic, frontal a cute UTI (urinary tract infection), bacterial acute Hypertension chronic Allergic drug rash due to anti-infective agent acute Shortness of breath acute Atypical pneumonia acute Atrial fibrillation with RVR resolved Hypoxemia resolved Atypical pneumonia acute Elevated glucose noneactive Diarrhea noneactive Lung nodule noneactive Syncope noneactive Hospital discharge follow-up noneactive Atrial fibrillation with RVR noneactive Acute hyponatremia acute Anemia acute Bilateral pleural effusion a cute Exertional dyspnea acute History of atrial fibrillation acute [facility] Work Phone: Evaluation note* Diagnosis Atrial fibrillation, unspecified type (CMS/HCC)- Primary Aortic valve sclerosis Aortic valve disorders Mixed hyperlipidemia documented in this encounter [facility] Work Phone: Evaluation note* Diagnosis Onset Date Resolution Status Sinusitis chronic, frontal a cute UTI (urinary tract infection), bacterial acute Hypertension chronic Allergic drug rash due to anti-infective agent acute Shortness of breath acute Atypical pneumonia acute Atrial fibrillation with RVR resolved Hypoxemia resolved Atypical pneumonia acute Elevated glucose noneactive Diarrhea noneactive Lung nodule noneactive Syncope noneactive Hospital discharge follow-up noneactive Atrial fibrillation with RVR noneactive Acute hyponatremia acute Anemia acute Bilateral pleural effusion a cute Exertional dyspnea acute History of atrial fibrillation acute Acute hyponatremia acute Anemia acute Bilateral pleural effusion a cute Pressure injury, stage 1 non eactive Streptococcal pneumonia none active Hematoma noneactive Pericardial effusion noneact shana New onset a-fib noneactive Hospital discharge follow-up noneactive Bilateral pleural effusion a cute Cystitis acute Exertional dyspnea acute History of atrial fibrillation acute Hyperlipemia chronic Hypertension [facility] Work Phone: Evaluation note* Diagnosis Onset Date Resolution Status Shortness of breath acute Atypical pneumonia acute Atrial fibrillation with RVR resolved Hypoxemia resolved Atypical pneumonia acute Elevated glucose noneactive Diarrhea noneactive Lung nodule noneactive Syncope noneactive Hospital discharge follow-up noneactive Atrial fibrillation with RVR noneactive Acute hyponatremia acute Anemia acute Bilateral pleural effusion a cute Exertional dyspnea acute History of atrial fibrillation acute Acute hyponatremia acute Anemia acute Bilateral pleural effusion a cute Pressure injury, stage 1 non eactive Streptococcal pneumonia none active Hematoma noneactive Pericardial effusion noneact shana New onset a-fib noneactive Hospital discharge follow-up noneactive Bilateral pleural effusion a cute Cystitis acute Exertional dyspnea acute History of atrial fibrillation acute Hyperlipemia chronic Hypertension chronic Bilateral pleural effusion a cute Cystitis acute History of atrial fibrillation acute [facility] Work Phone: Evaluation note* Diagnosis Onset Date Resolution Status Atypical pneumonia acute Elevated glucose noneactive Diarrhea noneactive Lung nodule noneactive Syncope noneactive Hospital discharge follow-up noneactive Atrial fibrillation with RVR noneactive Acute hyponatremia acute Anemia acute Exertional dyspnea acute History of atrial fibrillation acute Bilateral pleural effusion r esolved Acute hyponatremia acute Anemia acute Bilateral pleural effusion r esolved Pressure injury, stage 1 non eactive Streptococcal pneumonia none active Hematoma noneactive Pericardial effusion noneact shana New onset a-fib noneactive Hospital discharge follow-up noneactive Cystitis acute Exertional dyspnea acute History of atrial fibrillation acute Hyperlipemia chronic Hypertension chronic Bilateral pleural effusion r esolved Cystitis acute History of atrial fibrillation acute Bilateral pleural effusion r esolved Acute hyponatremia acute Anemia acute Hypertension chronic Bilateral pleural effusion r esolved [facility] Work Phone: Evaluation note* Diagnosis Atrial fibrillation, unspecified type (CMS/HCC)- Primary Aortic valve sclerosis Aortic valve disorders Mixed hyperlipidemia documented in this encounter [facility] Work Phone: Hospital course Narrative No data available for this section [facility] Reason for referral (narrative)* Consultation (Routine) - Authorized Specialty Diagnoses / Procedures Referred By Kartik luis Referred To Contact Cardiology Diagnoses Aortic valve sclerosis Mixed hyperlipidemia Atrial fibrillation, unspecified type (CMS/HCC) Procedures Follow Up In Cardiology Mal Phipps MD [address] [place] [address] Referral ID Status Reason Start Date Expiration Date V isits Requested Visits Authorized [id number] Authorized 07/20/2023 07/19/2024 1 1 [facility] Work Phone: Reason for referral (narrative)* Consultation (Routine) - Authorized Specialty Diagnoses / Procedures Referred By Kartik luis Referred To Contact Cardiology Diagnoses Aortic valve sclerosis Mixed hyperlipidemia Atrial fibrillation, unspecified type (CMS/HCC) Procedures Follow Up In Cardiology Mal Phipps MD [address] [place] [address] Referral ID Status Reason Start Date Expiration Date V isits Requested Visits Authorized [id number] Authorized 10/26/2023 10/25/2024 1 1 [facility] Work Phone: Reason for referral (narrative)No reason for referral [facility] Work [facility]: Chief Complaint and Reason for Visit Chief Complaint BLADDER INFECTION 2 M FU Reason for Visit Hyperlipemia Hypertension Urge incontinence of urine Chief Complaint CONCERN FOR UTI Reason for Visit Cystitis Chief Complaint CONCERN FOR UTI follow up RASH ON FEET AND LEGS, CONGESTION 2nd Visit/Cough, Indigestion EORDER- CXR- cough NEW ONSET AFIB W/ RVR, PNA, HYPOXEMIA NEW ONSET AFIB W/ RVR, PNA, HYPOXEMIA Reason for Visit Cystitis Sinusitis chronic, frontal UTI (urinary tract infection), bacterial Hypertension Allergic drug rash due to anti-infective agent Shortness of breath Atrial fibrillation with RVR Atypical pneumonia Hypoxemia Chief Complaint CONCERN FOR UTI follow up RASH ON FEET AND LEGS, CONGESTION 2nd Visit/Cough, Indigestion EORDER- CXR- cough NEW ONSET AFIB W/ RVR, PNA, HYPOXEMIA NEW ONSET AFIB W/ RVR, PNA, HYPOXEMIA acute - struggling w/pnemonia EORDER B/L EFFUSION B/L EFFUSION B/L EFFUSION Reason for Visit Cystitis Sinusitis chronic, frontal UTI (urinary tract infection), bacterial Hypertension Allergic drug rash due to anti-infective agent Shortness of breath Atypical pneumonia Atrial fibrillation with RVR Hypoxemia Atypical pneumonia Elevated glucose Diarrhea Lung nodule Syncope Hospital discharge follow-up Atrial fibrillation with RVR Acute hyponatremia Anemia Bilateral pleural effusion Exertional dyspnea History of atrial fibrillation Chief Complaint follow up RASH ON FEET AND LEGS, CONGESTION 2nd Visit/Cough, Indigestion EORDER- CXR- cough NEW ONSET AFIB W/ RVR, PNA, HYPOXEMIA NEW ONSET AFIB W/ RVR, PNA, HYPOXEMIA acute - struggling w/pnemonia EORDER B/L EFFUSION B/L EFFUSION B/L EFFUSION Reason for Visit Sinusitis chronic, f rontal UTI (urinary tract infection), bacterial Hypertension Allergic drug rash due to anti-infective agent Shortness of breath Atypical pneumonia Atrial fibrillation with RVR Hypoxemia Atypical pneumonia Elevated glucose Diarrhea Lung nodule [facility] discharge follow-up Atrial fibrillation with RVR Acute hyponatremia Anemia Bilateral pleural effusion Exertional dyspnea History of atrial fibrillation Chief Complaint follow up RASH ON FEET AND LEGS, CONGESTION 2nd Visit/Cough, Indigestion EORDER- CXR- cough NEW ONSET AFIB W/ RVR, PNA, HYPOXEMIA NEW ONSET AFIB W/ RVR, PNA, HYPOXEMIA EVALUATE FOR UNDERLYING ARRYTHMIA acute - struggling w/pnemonia EORDER B/L EFFUSION B/L EFFUSION B/L EFFUSION Formerly [facility] HOSPITAL FOLLOW UP Reason for Visit Sinusitis chronic, f rontal UTI (urinary tract infection), bacterial Hypertension Allergic drug rash due to anti-infective agent Shortness of breath Atypical pneumonia Atrial fibrillation with RVR Hypoxemia Atypical pneumonia Elevated glucose Diarrhea Lung nodule [facility] discharge follow-up Atrial fibrillation with RVR Acute hyponatremia Anemia Bilateral pleural effusion Exertional dyspnea History of atrial fibrillation Acute hyponatremia Anemia Bilateral pleural effusion Pressure injury, stage 1 Streptococcal pneumonia Hematoma Pericardial effusion New onset a-fib Hospital discharge follow-up Bilateral pleural effusion Cystitis Exertional dyspnea History of atrial fibrillation Hyperlipemia Hypertension Chief Complaint 2nd Visit/Cough, Ind igestion EORDER- CXR- cough NEW ONSET AFIB W/ RVR, PNA, HYPOXEMIA NEW ONSET AFIB W/ RVR, PNA, HYPOXEMIA EVALUATE FOR UNDERLYING ARRYTHMIA acute - struggling w/pnemonia EORDER B/L EFFUSION B/L EFFUSION B/L EFFUSION Formerly [facility] HOSPITAL FOLLOW UP 1 M Reason for Visit Shortness of breath Atypical pneumonia Atrial fibrillation with RVR Hypoxemia Atypical pneumonia Elevated glucose Diarrhea Lung nodule [facility] discharge follow-up Atrial fibrillation with RVR Acute hyponatremia Anemia Bilateral pleural effusion Exertional dyspnea History of atrial fibrillation Acute hyponatremia Anemia Bilateral pleural effusion Pressure injury, stage 1 Streptococcal pneumonia Hematoma Pericardial effusion New onset a-fib Hospital discharge follow-up Bilateral pleural effusion Cystitis Exertional dyspnea History of atrial fibrillation Hyperlipemia Hypertension Bilateral pleural effusion Cystitis History of atrial fibrillation Chief Complaint acute - struggling w /pnemonia EORDER B/L EFFUSION B/L EFFUSION B/L EFFUSION [facility] FOLLOW UP 1 M FU 6 wk FU Reason for Visit Atypical pneumonia Elevated glucose Diarrhea Lung nodule [facility] discharge follow-up Atrial fibrillation with RVR Acute hyponatremia Anemia Exertional dyspnea History of atrial fibrillation Bilateral pleural effusion Acute hyponatremia Anemia Bilateral pleural effusion Pressure injury, stage 1 Streptococcal pneumonia Hematoma Pericardial effusion New onset a-fib Hospital discharge follow-up Cystitis Exertional dyspnea History of atrial fibrillation Hyperlipemia Hypertension Bilateral pleural effusion Cystitis History of atrial fibrillation Bilateral pleural effusion Acute hyponatremia Anemia Hypertension Bilateral pleural effusion Chief Complaint Admit Date VENTRAL HERNIA July 04, 2024 2:42pm CHRONIC COUGH July 27, 2024 12:26pm EORDER July 27, 2024 3:19pm PREOP August 22, 2024 1: 25pm Lap Robotic Ventral Hernia w/mesh poss l ap August 28, 2024 10:20am Lap Robotic Ventral Hernia w/mesh poss l ap August 28, 2024 4:58pm Lap Robotic Ventral Hernia w/mesh poss l ap August 29, 2024 8:07am VENTRAL HERNIA DOS 08/28September 06 1:52pm VENTRAL HERNIA DOS 08/28October 05, 2 025 2:43pm Cough October 11, 2024 11:27am 6 M FU October 25, 2024 11: 23am Reason for Visit Admit Date 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, 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 Cough July 27, 2024 12:26pm Rhinosinusitis July 27, 2024 12:26pm Hernia of abdominal wall August 28, 2 025 4:58pm Diarrhea September 06, 2024 1 :52pm S/P spigelian hernia repair, follow-up e xam September 06, 2024 1:52pm Diarrhea October 05, 2024 2:43pm S/P spigelian hernia repair, follow-up e xam October 05, 2024 2:43pm Bronchitis October 11, 2024 11:27am Elevated LFTs October 25, 2024 11: 23am Exertional dyspnea October 25, 2024 11: 23am Bronchitis October 25, 2024 11: 23am History of atrial fibrillation October 11:23am Hypertension October 25, 2024 11: 23am Chief Complaint Admit Date CHRONIC COUGH July 27, 2024 12:26pm EORDER July 27, 2024 3:19pm PREOP August 22, 2024 1: 25pm Lap Robotic Ventral Hernia w/mesh poss l ap August 28, 2024 10:20am Lap Robotic Ventral Hernia w/mesh poss l ap August 28, 2024 4:58pm Lap Robotic Ventral Hernia w/mesh poss l ap August 29, 2024 8:07am VENTRAL HERNIA DOS 08/28September 06 1:52pm VENTRAL HERNIA DOS 08/28October 05, 2 025 2:43pm Cough October 11, 2024 11:27am 6 M FU October 25, 2024 11: 23am Colitis November 17, 2024 3:18 pm E-ORDER November 18, 2024 12:0 2pm Reason for Visit Admit Date Cough July 27, 2024 12:26pm Rhinosinusitis July 27, 2024 12:26pm Hernia of abdominal wall August 28, 2 025 4:58pm Diarrhea September 06, 2024 1 :52pm S/P spigelian hernia repair, follow-up e xam September 06, 2024 1:52pm Diarrhea October 05, 2024 2:43pm S/P spigelian hernia repair, follow-up e xam October 05, 2024 2:43pm Bronchitis October 11, 2024 11:27am Elevated LFTs October 25, 2024 11: 23am Exertional dyspnea October 25, 2024 11: 23am Bronchitis October 25, 2024 11: 23am History of atrial fibrillation October 11:23am Hypertension October 25, 2024 11: 23am Diarrhea November 17, 2024 3:18 pm Difficulty swallowing November 17, 2024 3: 18pm 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, 2024 3: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 Chief Complaint Admit Date PREOP August 22, 2024 1: 25pm Lap Robotic Ventral Hernia w/mesh poss l ap August 28, 2024 10:20am Lap Robotic Ventral Hernia w/mesh poss l ap August 28, 2024 4:58pm Lap Robotic Ventral Hernia w/mesh poss l ap August 29, 2024 8:07am VENTRAL HERNIA DOS 08/28September 06 1:52pm VENTRAL HERNIA DOS 08/28October 05, 2 025 2:43pm Cough October 11, 2024 11:27am 6 M FU October 25, 2024 11: 23am Colitis November 17, 2024 3:18 pm E-ORDER November 18, 2024 12:0 2pm Reason for Visit Admit Date Hernia of abdominal wall August 28, 2 025 4:58pm Diarrhea September 06, 2024 1 :52pm S/P spigelian hernia repair, follow-up e xam September 06, 2024 1:52pm Diarrhea October 05, 2024 2:43pm S/P spigelian hernia repair, follow-up e xam October 05, 2024 2:43pm Bronchitis October 11, 2024 11:27am Elevated LFTs October 25, 2024 11: 23am Exertional dyspnea October 25, 2024 11: 23am Bronchitis October 25, 2024 11: 23am History of atrial fibrillation October 11:23am Hypertension October 25, 2024 11: 23am Diarrhea November 17, 2024 3:18 pm Difficulty swallowing November 17, 2024 3: 18pm 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, 2024 3:1 8pm Chief Complaint Admit Date VENTRAL HERNIA DOS 08/28October 05, 2 025 2:43pm Cough October 11, 2024 11:27am 6 M FU October 25, 2024 11: 23am Colitis November 17, 2024 3:18 pm E-ORDER November 18, 2024 12:0 2pm 1 M FU December 19, 2024 3:17pm congestion/drainage January 10, 2025 9:21a m Reason for Visit Admit Date Diarrhea October 05, 2024 2:43pm S/P spigelian hernia repair, follow-up e xam October 05, 2024 2:43pm Bronchitis October 11, 2024 11:27am Elevated LFTs October 25, 2024 11: 23am Exertional dyspnea October 25, 2024 11: 23am Bronchitis October 25, 2024 11: 23am History of atrial fibrillation October 11:23am Hypertension October 25, 2024 11: 23am Diarrhea November 17, 2024 3:18 pm Difficulty swallowing November 17, 2024 3: 18pm 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, 2024 3:1 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 Constipation December 19, 2024 3:17pm Diarrhea December 19, 2024 3:17pm Sinusitis, acute frontal January 10, 2025 9:21am Chief Complaint Admit Date 1 M FU December 19, 2024 3:17pm congestion/drainage January 10, 2025 9:21a m 3 M FU March 22, 2025 3:1 6pm Reason for Visit Admit Date Constipation December 19, 2024 3:17pm Diarrhea December 19, 2024 3:17pm Sinusitis, acute frontal January 10, 2025 9:21am Family History No Family History Records Found Relationship Condition Age at Onset Recorded Date/T raysa mother Diabetes mellitus Unknown Hypertension Unknown Cerebrovascular accident (CVA) Unknown father Myocardial infarction 80 brother Malignant neoplasm Unknown Advance Directives No Advanced Directives Records Found Advance Directive Response Recorded Date/ Time Living Will No May 25 4:17pm Power of Pediatric Registered Nurse No May 25, 2023 4:17pm Advance Directive Response Recorded Date/ Time Name of Medical Power of Pediatric Registered Nurse joseph cook June 07, 2023 9:31pm Living Will No June 07 9:31pm Power of Pediatric Registered Nurse Yes June 07, 2023 9:31pm Latest Code Status on File Code Status [...] Code Status Discussion Completed Decision Maker: Patient Advance Directive Response Recorded Date/ Time Name of Medical Power of Pediatric Registered Nurse joseph cook June 07, 2023 8:31pm Living Will No July 09 2 023 1:59pm Power of Pediatric Registered Nurse No July 09, 2023 1:59pm Advance Directive Response Recorded Date/ Time Living Will No July 09, 2 023 2:59pm Power of Pediatric Registered Nurse No July 09, 2023 2:59pm Living Will No June 01 5:29pm Power of Pediatric Registered Nurse Yes June 01, 2024 5:29pm Living Will Yes August 28 8:43pm Power of Pediatric Registered Nurse Yes August 28, 2024 8:43pm Name of Medical Power of Pediatric Registered Nurse DAUGHTER August 28, 2024 8:43pm Advance Directive Response Recorded Date/ Time Living Will No July 09 2 023 2:59pm Do you have a Healthcare Power of Pediatric Registered Nurse? No July 09, 2023 2:59pm Living Will Yes August 28 8:43pm Do you have a Healthcare Power of Pediatric Registered Nurse? Yes August 28, 2024 8:43pm Name of Medical Power of Pediatric Registered Nurse DAUGHTER August 28, 2024 8:43pm Advance Directive Response Recorded Date/ Time Living Will No July 09 023 2:59pm Do you have a Healthcare Power of Pediatric Registered Nurse? No July 09, 2023 2:59pm Summary Purpose Additional Source Comments Goals (unrecognized section and content) Goals may be documented in a n alternate sectionGoals may be documented in an alternate section No data available for this sectionGoals may be documented in an alternate sectionGoals may be documented in an alternate sectionGoals may be documented in an alternate section Care Teams (unrecognized sec tion and content) Team Status: Active Member Role Status Dates Dr. Coy Nath DO Primary Care Provider Active Team Status: Inactive Member Role Status Dates Dr. Coy Nath DO Primary Care Provider Active Start: September 18, 2024 End: September 18, 2024 Nandini LONGORIA PA-C Attending Provider Active Start: September 18, 2024 End: September 18, 2024 Nandini LONGORIA PA-C Referring Provider Active Start: September 18, 2024 End: September 18, 2024 Team Status: Inactive Member Role Status Dates Dr. Coy Nath DO Primary Care Provider Active Start: October 05, 2024 End: October 05, 2024 Dr. Coy Nath DO Referring Provider Active Start: October 05, 2024 End: October 05, 2024 Dr. Emily Madrigal MD Attending Provider Active Start: October 05, 2024 End: October 05, 2024 Team Status: Inactive Member Role Status Dates Dr. Coy Nath DO Primary Care Provider Active Start: October 11, 2024 End: October 11, 2024 Dr. Coy Nath DO Attending Provider Active Start: October 11, 2024 End: October 11, 2024 Dr. Coy Nath DO Referring Provider Active Start: October 11, 2024 End: October 11, 2024 Team Status: Inactive Member Role Status Dates Dr. Coy Nath DO Primary Care Provider Active Start: October 25, 2024 End: October 25, 2024 Dr. Coy Nath DO Attending Provider Active Start: October 25, 2024 End: October 25, 2024 Dr. Coy Nath DO Referring Provider Active Start: October 25, 2024 End: October 25, 2024 Team Status: Inactive Member Role Status Dates Dr. Coy Nath DO Primary Care Provider Active Start: November 17, 2024 End: November 17, 2024 Dr. Coy Nath DO Referring Provider Active Start: November 17, 2024 End: November 17, 2024 SWATI Rdz Attending Provider Active Start: November 17, 2024 End: November 17, 2024 Team Status: Inactive Member Role Status Dates Dr. Coy Nath DO Primary Care Provider Active Start: November 18, 2024 End: November 18, 2024 SWATI Rdz Attending Provider Active Start: November 18, 2024 End: November 18, 2024 SWATI Rdz Referring Provider Active Start: November 18, 2024 End: November 18, 2024 Team Status: Inactive Member Role Status Dates Dr. Coy Nath DO Primary Care Provider Active Start: November 22, 2024 End: November 22, 2024 SWATI Rdz Attending Provider Active Start: November 22, 2024 End: November 22, 2024 Team Status: Inactive Member Role Status Dates Dr. Coy Nath DO Primary Care Provider Active Start: December 19, 2024 End: December 19, 2024 Dr. Coy Nath DO Referring Provider Active Start: December 19, 2024 End: December 19, 2024 SWATI Rdz Attending Provider Active Start: December 19, 2024 End: December 19, 2024 Team Status: Inactive Member Role Status Dates Dr. Coy Nath DO Primary Care Provider Active Start: January 10, 2025 End: January 10, 2025 Dr. Coy Nath DO Attending Provider Active Start: January 10, 2025 End: January 10, 2025 Dr. Coy Nath DO Referring Provider Active Start: January 10, 2025 End: January 10, 2025 Team Status: Active Member Role Status Dates Dr. Coy Nath DO Primary Care Provider Active Start: August 22, 2024 End: August 22, 2024 Dr. Emily Leyva MD Attending Provider Active Start: August 22, 2024 End: August 22, 2024 Dr. Emily Madrigal MD Referring Provider Active Start: August 22, 2024 End: August 22, 2024 Team Status: Active Member Role Status Dates Dr. Coy Nath DO Primary Care Provider Active Start: August 28, 2024 Dr. Emily Madrigal MD Attending Provider Active Start: August 28, 2024 Dr. Emily Madrigal MD Referring Provider Active Start: August 28, 2024 Dr. Emily Madrigal MD Other Provider Active Sta rt: August 28, 2024 Team Status: Inactive Member Role Status Dates Dr. Coy Nath DO Primary Care Provider Active Start: August 28, 2024 End: August 29, 2024 Dr. Emily Madrigal MD Admit Provider Active Sta rt: August 28, 2024 End: August 29, 2024 Dr. Emily Madrigal MD Attending Provider Active Start: August 28, 2024 End: August 29, 2024 Dr. Emily Madrigal MD Referring Provider Active Start: August 28, 2024 End: August 29, 2024 Team Status: Active Member Role Status Dates Dr. Coy Nath DO Primary Care Provider Active Start: August 29, 2024 Dr. Emily Madrigal MD Admit Provider Active Sta rt: August 29, 2024 Dr. Emily Madrigal MD Referring Provider Active Start: August 29, 2024 Dr. Emily Madrigal MD Other Provider Active Sta rt: August 29, 2024 Nandini LONGORIA PA-C Attending Provider Active Start: August 29, 2024 Team Status: Inactive Member Role Status Dates Dr. Coy Nath DO Primary Care Provider Active Start: September 06, 2024 End: September 06, 2024 Dr. Coy Nath DO Referring Provider Active Start: September 06, 2024 End: September 06, 2024 Nandini LONGORIA PA-C Attending Provider Active Start: September 06, 2024 End: September 06, 2024 Team Status: Active Member Role Status Dates Dr. Satya Jones DO Family Provider Active Dr. Coy Nath DO Primary Care Provider Active Team Status: Inactive Member Role Status Dates Dr. Coy Nath DO Primary Care Provider, Referr ing Provider Active SWATI Aguila Attending Provider Active Team Status: Inactive Member Role Status Dates Dr. Coy Nath , DO Primary Care Provider Active Srikanth LONGORIA PA Attending Provider, Referring Provi destiny Active Team Status: Inactive Member Role Status Dates Dr. Coy Nath , DO Primary Care Pr ovider, Attending Provider, Referring Provider Active Team Status: Inactive Member Role Status Dates Dr. Coy Nath , DO Primary Care Provider, Referr ing Provider Active Clari Cardenas PA, PA Attending Provider Active Team Status: Active Member Role Status Dates Dr. Coy Nath , DO Primary Care Provider Active Dr. Reinier Toney MD Emergency Provider Active Dr. Anjum Wilson MD Admit Provider, Other Pro vider Active Dr. Sivan Martinez MD Attending Provider, Other Provid er Active Team Status: Active Member Role Status Dates Dr. Coy Nath , DO Primary Care Provider Active Dr. Chon Almendarez MD Attending Provider Active Team Status: Active Member Role Status Dates Dr. Coy Nath , DO Primary Care Provider Active Clari LONGORIA PA Attending Provider, Referring Pr ovider Active Team Status: Inactive Member Role Status Dates Dr. Coy Nath , DO Primary Care Provider Active Dr. Reinier Toney MD Emergency Provider Active Dr. Anjum Wilson MD Admit Provider, Other Pro vider Active Dr. Sivan Martinez MD Attending Provider Active Team Status: Inactive Member Role Status Dates Dr. Coy Nath , DO Primary Care Provider Active Clari LONGORIA PA Attending Provider, Referring Pr ovider Active Team Status: Inactive Member Role Status Dates Dr. Coy Nath , DO Primary Care Provider, Referr ing Provider Active Dr. Angelica Brown MD Attending Provider Active Team Status: Active Member Role Status Dates Dr. Coy Nath , DO Primary Care Provider Active Dr. Binh Ken MD Emergency Provider Active Dr. Colton Mayfield MD Admit Provider, A ttending Provider, Other Provider Active Team Status: Active Member Role Status Dates Dr. Coy Nath , DO Primary Care Provider Active Dr. Binh Ken MD Emergency Provider Active Dr. Colton Mayfield MD Admit Provider, Other Provider Active Dr. Sivan Martinez MD Attending Provider, Other Provid er Active Team Status: Active Member Role Status Dates Dr. Coy Nath , DO Primary Care Provider Active Dr. Andrew Haile MD Attending Provider Active Team Status: Inactive Member Role Status Dates Dr. Coy Nath , DO Primary Care Provider Active Dr. Binh Ken MD Emergency Provider Active Dr. Colton Mayfield MD Admit Provider, Other Provider Active Dr. Sivan Martinez MD Attending Provider Active Team Status: Active Member Role Status Dates Dr. Coy Nath , DO Primary Care Provider Active Dr. Angelica Brown MD Attending Provider, Referring Provider Active Team Status: Inactive Member Role Status Dates Dr. Coy Nath , DO Primary Care Provider Active Dr. Angelica Brown MD Attending Provider, Referring Provider Active Wax Molder Relationship Specialty Start Date End Date Mal Phipps MD [address] [place] [address] [place] [address] Consulting Physician Cardiology 07/20/23 Team Status: Active Member Role Status Dates Dr. Coy Nath DO Primary Care Provider Active Dr. Sivan Martinez MD Attending Provider, Referring Pr ovider Active Team Status: Inactive Member Role Status Dates Dr. Coy Nath DO Primary Care Provider Active Dr. Jhonny Marr MD Attending Provider, Emergency Provi destiny Active Team Status: Inactive Member Role Status Dates Dr. Coy Nath DO Primary Care Provider, Attend ing Provider Active Wax Molder Relationship Specialty Start Date End Date Mal Phipps MD [address] [place] [address] [place] [address] Consulting Physician Cardiology 07/20/23 Team Status: Active Member Role Status Dates Dr. Coy Nath DO Primary Care Pr ovider, Attending Provider, Referring Provider Active Team Status: Inactive Member Role Status Dates Dr. Coy Nath DO Primary Care Provider Active Start: July 04, 2024 End: July 04, 2024 Dr. Coy Nath DO Referring Provider Active Start: July 04, 2024 End: July 04, 2024 Dr. Emily Madrigal MD Attending Provider Active Start: July 04, 2024 End: July 04, 2024 Team Status: Inactive Member Role Status Dates Dr. Coy Nath DO Primary Care Provider Active Start: July 27, 2024 End: July 27, 2024 Dr. Coy Nath DO Referring Provider Active Start: July 27, 2024 End: July 27, 2024 SWATI De Paz Attending Provider Active St art: July 27, 2024 End: July 27, 2024 Team Status: Inactive Member Role Status Dates Dr. Coy Nath DO Primary Care Provider Active Start: July 27, 2024 End: July 27, 2024 SWATI De Paz Attending Provider Active St art: July 27, 2024 End: July 27, 2024 SWATI De Paz Referring Provider Active St art: July 27, 2024 End: July 27, 2024 Team Status: Active Member Role Status Dates Dr. Coy Nath DO Primary Care Provider Active Start: October 25, 2024 Dr. Coy Nath DO Attending Provider Active Start: October 25, 2024 Dr. Coy Nath DO Referring Provider Active Start: October 25, 2024 Team Status: Active Member Role/Relationship Status Dates Dr. Coy Nath DO Primary Care Provider Active Team Status: Inactive Member Role/Relationship Status Dates Dr. Coy Nath DO Primary Care Provider Active Start: November 22, 2024 End: November 22, 2024 SWATI Rdz Attending Provider Active Start: November 22, 2024 End: November 22, 2024 Team Status: Inactive Member Role/Relationship Status Dates Dr. Coy Nath DO Primary Care Provider Active Start: December 19, 2024 End: December 19, 2024 Dr. Coy Nath DO Referring Provider Active Start: December 19, 2024 End: December 19, 2024 SWATI Rdz Attending Provider Active Start: December 19, 2024 End: December 19, 2024 Team Status: Inactive Member Role/Relationship Status Dates Dr. Coy Nath DO Primary Care Provider Active Start: January 10, 2025 End: January 10, 2025 Dr. Coy Nath DO Attending Provider Active Start: January 10, 2025 End: January 10, 2025 Dr. Coy Nath DO Referring Provider Active Start: January 10, 2025 End: January 10, 2025 Team Status: Inactive Member Role/Relationship Status Dates Dr. Coy Nath DO Primary Care Provider Active Start: March 22, 2025 End: March 22, 2025 Dr. Coy Nath , Referring Provider Active Start: March 22, 2025 End: March 22, 2025 SWATI Rdz Attending Provider Active Start: March 22, 2025 End: March 22, 2025 INFORMATION SOURCE (unrecogn ized section and content) DATE CREATED AUTHOR 08/04/2023 [facility] ([place]) DATE CREATED AUTHOR AUTHOR'S ORGANIZ ATION 04/24/2024 [facility] DATE CREATED AUTHOR AUTHOR'S ORGANIZ ATION 07/10/2024 [facility] DATE CREATED AUTHOR AUTHOR'S ORGANIZ ATION 04/30/2025 [facility] Reason for Visit (unrecogniz ed section and content) Reason Comments Follow-up Atrial Fibrillation Specialty Diagnoses / Procedures Referred By Contac t Referred To Contact Cardiology Diagnoses Aortic valve sclerosis Mixed hyperlipidemia Atrial fibrillation, unspecified type (CMS/HCC) Procedures Follow Up In Cardiology Mal Phipps MD [address] [address] Referral ID Status Reason Start Date Expiration Date V isits Requested Visits Authorized [id number] Authorized 07/20/2023 07/19/2024 1 1 FOR RECORDS PERTAINING TO PATIENTS WHO ARE [...] BE BASED ON THE PRIMARY CLINICAL RECORDS. [employer] provides no warranty or guarantee of the accuracy or completeness of information in this document.
--- NOTE | 2025-05-02 06:41 | HP.PCM_ITS ---
HPI - General General Date of Admission: 05/02/25 Date of Service: 05/02/25 Chief Complaint: abdominal pain HPI Narrative ELOISA VAUGHAN, is a 84 F who presents with the Chief Complaint: abd pain BGI established in November 2024 with diarrhea x3-4 months. Typically pt had constipation. SHe is having about 5 episodes of diarrhea per day take. SHe is taking Imodium and citricil with little improvement. Last colonoscopy many years ago. Stool 4.5.25; Calprotectin 408 H, O&P, Giardia, c.dif wnl *start Budesonide 9 mg daily *Pt call with constipation and thrush. Recommended discontinuing Budesonide OV 5.6.25 Pt is now having constipation with a bm daily to every other day. She has to strain. She endorses throat and tongue pain with a white coating. This has been getting better since stopping the Budesonide OV 8.7.25 patient no longer having diarrhea or constipation. She has daily bowel movements. She has having some lower abdominal pain prior to having a bowel movement that dissipates after the bowel movement. Over the past few months patient has had unintentional weight loss. She has been eating less due to early satiety. Patient typically weighs around 150 pounds but over the past few months has dropped down to 2 in the 120s. She has occasional heartburn and frequent belching. She has difficulty swallowing her pills and meats. She is on pantoprazole. [facility] Medical History Loss of hearing Wears glasses Wears dentures Anxiety Ambulates with cane Bladder disease Injury of head and neck Loss of consciousness Diarrhea Difficulty swallowing History of diverticulitis Gastric reflux Shortness of breath on exertion Leg cramps History of edema History of normal Holter exam History of echocardiogram History of stress test Cardiology follow-up encounter Non-smoker Chronic pain Atrial fibrillation Shortness of breath Cardiac murmur History of hemorrhoids Frequent headaches Chronic back pain History of stomach ulcers Arthritis Hyperlipemia Hypertension History of pneumonia Home Medications ?Medication ?Instructions ?Recorded ?Last Taken ?Type aspirin 81 mg tablet,delayed 81 mg PO DAILY HEART 11/1408/23/24 History release cetirizine 10 mg tablet (Zyrtec) 10 mg PO QHS allergy symptoms 06/07/23 08/27/24 21:30 History valsartan 160 mg tablet 160 mg PO DAILY #90 tabs Unknown Rx methylcellulose (with sugar) oral 1 tbsp PO BID Unknown History powder (Citrucel (sucrose) oral powder) metoprolol succinate 25 mg 25 mg PO BID #180 TABLETS 0 01/16/25 Unknown Rx tablet,extended release 24 hr pantoprazole 40 mg tablet,delayed 40 mg PO DAILY #90 t abs 03/26/25 Unknown Rx release amlodipine 10 mg tablet 10 mg PO DAILY for blood pre ssure 04/10/25 Unknown Rx #90 TABLETS nitrofurantoin macrocrystal 50 mg 50 mg PO QHS #90 cap s 04/10/25 Unknown Rx capsule pravastatin 40 mg tablet 40 mg PO DAILY for cholester ol #90 04/10/25 Unknown Rx TABLETS spironolactone 25 mg tablet 25 mg PO DAILY #90 TABLETS 04/10/25 Unknown Rx Allergy/AdvReac Type Severity Reaction Status Date / Time nitroglycerin Allergy Mild NEEDS Verified 04/26/25 13:55 FOLLOW-UP amiodarone Allergy Rash Verified 04/26/25 13:55 chlorpheniramine (From AdvReac Other Verified 04/26/25 13:55 Actifed Cold-Allergy) phenylephrine (From Actifed AdvReac Other Verified 04/26/25 13:55 Cold-Allergy) pseudoephedrine (From AdvReac Other Verified 04/26/25 13:55 Actifed Cold-Allergy) triprolidine (From Actifed AdvReac Other Verified 04/26/25 13:55 Cold-Allergy) Family History Mother Diabetes Hypertension CVA (cerebral vascular accident) Father Myocardial infarction, Onset Age: 80 Brother Cancer Surgical History History of ventral hernia repair S/P spigelian hernia repair, follow-up exam History of cardiac catheterization Hx of colonoscopy History of esophagogastroduodenoscopy (EGD) History of tonsillectomy History of appendectomy History of hysterectomy History of back surgery History of foot surgery Social History Smoking Status: Never smoker alcohol intake: never substance use type: does not use what type of physical activity do you participate in: walking frequency: daily ROS Constitutional Constitutional: Denies fatigue, fever(s), poor appetite, weight gain or weight loss Gastrointestinal Gastrointestinal: Denies belching, bloating, change in bowel habits, change in stool character, chewing difficulty, coffee ground emesis, constipation, cramping, diarrhea, dyspepsia, dysphagia, early satiety, excessive flatus, fecal incontinence, heartburn, hematemesis, hematochezia, hemorrhoids, loose stools, melena, nausea, odynophagia, rectal bleeding, tenesmus, vomiting or weight changes Physical Exam Const alert, oriented x3, no apparent distress and healthy appearing General Appearance: cooperative GI normal to inspection, nondistended, normoactive bowel sounds, soft to palpation, non-tender and non-distended Percussion: normal to percussion Rectal Exam: deferred Assessment & Plan Assessment/Plan (1) Anemia: QUALIFIERS: Anemia type: other cause Other causes of anemia: other cause, not classified Qualified Code(s): D64.89 - Other specified anemias (2) Early satiety: (3) Abdominal pain: PLAN: Assessment and Plan Assessment and Plan (1) Constipation: Status: Acute Plan: Eloisa is an 84-year-old female patient here today for follow-up regarding her constipation and diarrhea. Patient initially established with clinic for diarrhea. She underwent stool testing which showed an elevated calprotectin in the 400s. Patient declined colonoscopy and she was started on empiric budesonide for inflammation in her colon. Budesonide however made her constipat ed and gave her thrush. Budesonide was discontinued. Her bowels have regulated at this point and she has daily bowel movements. Patient endorses over the past few months having early satiety, difficulty swallowing and excessive eructation. Due to these symptoms and her recent unintentional weight loss over the past few months she will be scheduled for upper endoscopy. I did review risks of up per endoscopy including perforation, bleeding or infection. She was agreeable to proceed. -EGD with dilation if indicated - Continue PPI - Follow-up after procedure Note: [employer] speech recognition medical transcription radiology software was used to create portions of this document. Sound-alike and misspelled words, as well as other medical transcription radiology errors may be contained in the documentation. (2) Difficulty swallowing: Status: Acute Comment: CANNOT SWALLOW LARGE PILL DRY MOUTH PER PATIENT (3) Diarrhea: Status: Acute (4) Early satiety: Status: Acute
[2025-05-02] MEDS: Lactated Ringers 1,000 ML 15 ML IV (06:50)
--- NOTE | 2025-05-02 07:01 | PCM.PRE.AN2 ---
ASA Classification* ASA Classification ASA Classification: 3 Assessment & Plan Anesthesia* Anesthesia Assessment Anesthesia Assessment: Discussed sedation and/or anesthesia options, risks, benefits, and alternatives with patient/parents/legal guardian/POA. Questions invited. The patient/parents/legal guardian/POA seems to understand and agrees to proceed with anesthesia plan. Reviewed the physical assessment, medical history, allergy history and patient home medications list prior to surgery/procedure/anesthetic and documented any changes. Performed airway and anesthesia risk assessments. Anesthesia Type Anesthesia Type: MAC History Source History Obtained from:: Patient, Chart and Significant Other (Daughter) Anesthesia Focused Assessment* Temperature: 97.4 F Pulse Rate: 53 Blood Pressure: 157/62 Respiratory Rate: 18 Pulse Ox: 99 Oxygen Delivery Method: Room Air Airway Assessment Mouth opens: >3 cm Mallampati Score: II Teeth Condition: Dentures Neck Range of motion (ROM): Limited ROM Labs Anesthesia Preop lab: CBC WBC, (4.4-11.0) 7.9 K/mm3 10/25/24, : RBC, (4.2-5.4) 4.13 M/mm3 L 10/25/24, :54 Hgb, (12.0-15.0) 12.6 g/dL 10/25/24, : Hct, (37-47) 37.8 % 10/25/24, : Plt Count, (150-450) 372 K/mm3 10/25/24, :54 CHEMISTRY Potassium, (3.3-5.1) 5.0 mmol/L 10/25/24, :54 Sodium, (133-145) 129 mmol/L L 10/25/24, 11:54 Magnesium, (1.6-2.6) 2.2 mg/dL 06/07/23, 20:03 Phosphorus, (2.5-4.9) 2.8 mg/dL 06/07/23, 20:03 BUN, (4-19) 26 mg/dL H 10/25/24, 11:54 Creatinine, (0.70-1.20) 0.72 mg/dL 10/25/24, 11:54 Glucose, (70-99) 96 mg/dL 10/25/24, 11:54 TSH, (0.358-3.74) 5.56 uIU/mL H 06/08/23, 06:48 COAG PT, (11.7-14.9) 21.0 SECONDS H 08/30/23, 10:50 Pre-Assessment Diagnosis/Proposed Procedure Planned Operative Procedure(s): EGD Anesthesia History 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 When Was Last Pacemaker Check QUESTION #4 FULL TEXT: You/Your Family Experience fever (hyperthermia) with Anesthesia Last Oral Intake Last Oral intake: Last Oral Intake NPO since 05:30 05/02/25 06:51 Meds taken in AM with sips of No 05/02/25 06:51 water? 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 Female Yes 04/26/25 13:59 HX of Motion Sickness No 04/26/25 13:59 HX of N/V After Surgery No 04/26/25 13:59 Non-Smoker Yes 04/26/25 13:59 Duration of Surgery greater No 04/26/25 13:59 than 60 minutes Number of Risk Factors 2 04/26/25 13:59 PONV Score Moderate Risk 04/26/25 13:59 Height & Weight Height & Weight: Anesthesia: Height & Weight Height 5 ft 05/02/25 06:51 Weight: 59 kg 05/02/25 06:51 Body Mass Index (BMI) 25.4 05/02/25 06:51 Respiratory Assessment Respiratory Assessment - metal polisher and buffer apprentice: Respiratory Tract Infection Hx - metal polisher and buffer apprentice Hx Respiratory Tract Infection No 04/26/25 13:59 STOP Sleep Apnea STOP Sleep Apnea - metal polisher and buffer apprentice: STOP Sleep Apnea - metal polisher and buffer apprentice Hx Hypertension Yes: CONTROLLED WITH MEDS 04/26/25 13:59 Hx Sleep Apnea No 04/26/25 13:59 CPAP BIPAP Do you snore loudly (louder No 04/26/25 13:59 than talking or can be heard Do you often feel tired/ No 04/26/25 13:59 fatigued/ sleepy during daytime? Has anyone observed you stop No 04/26/25 13:59 breathing during sleep? STOP Results Negative 04/26/25 13:59 QUESTION #5 FULL TEXT : Do you snore loudly (louder than talking or can be heard through closed doors)? 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 Specify any problems Hx of Preganancy in last 3 N/A 04/26/25 13:59 Months Nurse Filling Out Transfusion NBUCHER 04/26/25 13:59 & Questions: Date: 04/26/25 04/26/25 13:59 Time: 14:00 04/26/25 13:59 Patient unable to answer at this time (ie. confused, unrespo /Reproduction History /Reproductive History - metal polisher and buffer apprentice: /Reproductive Hx- metal polisher and buffer apprentice Hx Now Gestational Age (in weeks): EDC: Hx Hx Para Hx Section SAB No 04/26/25 13:59 Active Medications Active Medications: Current Medications Generic Name Dose Route Start Last Admin Trade Name Freq PRN Reason Stop Dose Admin Lactated Ringer's 1,000 mls @ 15 mls/hr 05/02/25 06:45 05/02/25 06:50 IV 15 mls/hr .Q48H SHAYAN Administration PFSH Medical History Loss of hearing Wears glasses Wears dentures Anxiety Ambulates with cane Bladder disease Injury of head and neck Loss of consciousness Diarrhea Difficulty swallowing History of diverticulitis Gastric reflux Shortness of breath on exertion Leg cramps History of edema History of normal Holter exam History of echocardiogram History of stress test Cardiology follow-up encounter Non-smoker Chronic pain Atrial fibrillation Shortness of breath Cardiac murmur History of hemorrhoids Frequent headaches Chronic back pain History of stomach ulcers Arthritis Hyperlipemia Hypertension History of pneumonia Home Medications ?Medication ?Instructions ?Recorded ?Last Taken ?Type aspirin 81 mg tablet,delayed 81 mg PO DAILY HEART 11/24/16 04/28/25 History release cetirizine 10 mg tablet (Zyrtec) 10 mg PO QHS allergy symptoms 06/07/23 05/01/25 History valsartan 160 mg tablet 160 mg PO DAILY #90 tabs 10/11/24 05/02/25 Rx methylcellulose (with sugar) oral 1 tbsp PO BID 01/10/25 05/01/25 History powder (Citrucel (sucrose) oral powder) metoprolol succinate 25 mg 25 mg PO BID #180 TABLETS 01/16/25 05/02/25 Rx tablet,extended release 24 hr pantoprazole 40 mg tablet,delayed 40 mg PO DAILY #90 tabs 03/26/25 05/02/25 Rx release amlodipine 10 mg tablet 10 mg PO DAILY for blood pressure 04/10/25 05/02/25 Rx #90 TABLETS nitrofurantoin macrocrystal 50 mg 50 mg PO QHS #90 caps 04/10/25 05/01/25 Rx capsule pravastatin 40 mg tablet 40 mg PO DAILY for cholesterol #90 04/10/25 05/02/25 Rx TABLETS spironolactone 25 mg tablet 25 mg PO DAILY #90 TABLETS 04/10/25 05/02/25 Rx Allergy/AdvReac Type Severity Reaction Status Date / Time nitroglycerin Allergy Mild NEEDS Verified 05/02/25 06:49 FOLLOW-UP amiodarone Allergy Rash Verified 05/02/25 06:49 chlorpheniramine (From AdvReac Other Verified 05/02/25 06:49 Actifed Cold-Allergy) phenylephrine (From Actifed AdvReac Other Verified 05/02/25 06:49 Cold-Allergy) pseudoephedrine (From AdvReac Other Verified 05/02/25 06:49 Actifed Cold-Allergy) triprolidine (From Actifed AdvReac Other Verified 05/02/25 06:49 Cold-Allergy) Family History Mother Diabetes Hypertension CVA (cerebral vascular accident) Father Myocardial infarction, Onset Age: 80 Brother Cancer Surgical History History of ventral hernia repair S/P spigelian hernia repair, follow-up exam History of cardiac catheterization Hx of colonoscopy History of esophagogastroduodenoscopy (EGD) History of tonsillectomy History of appendectomy History of hysterectomy History of back surgery History of foot surgery Social History Smoking Status: Never smoker alcohol intake: never substance use type: does not use what type of physical activity do you participate in: walking frequency: daily Review of Systems (Anesthesia) ROS Narrative System reviewed and no additional complaints, except as documented.
--- NOTE | 2025-05-02 07:45 | EGD_PTH ---
PATIENT: MODESTA VAUGHAN LOC: EN U#:[id number] AGE/SX: 84/F ROOM: RE05/02/[address]: Dr. Geroge Guzmán DO : 1940 BED: DIS: 05/02/2025 SPEC #: [id number] RECD: 05/02/25 08:26 STATUS: [facility] #: [id number] REHANA: 05/02/25 07:[address]: George Guzmán DEPT: SURGICAL PATHOLOGY RECD BY: Desean Norman ENTERED: 05/02/25 11:44 SP TYPE: EGD BIOPSY REZA DR: Dr. Jamie Hall DO Tissues: A - Esophagus, NOS Procedures: Surgery Specimen Level IV HEADER OPERATION: EGD with biopsies and dilation PRE-OP DIAGNOSIS: Difficulty swallowing and abdominal pain TISSUE SUBMITTED: A- Random esophagus biopsy MICROSCOPIC DIAGNOSIS A. Esophagus, random, biopsy: - Squamous mucosa negative for eosinophils. MICROSCOPIC DESCRIPTION Slides are reviewed. GROSS DESCRIPTION A. Received in fixative is one container labeled with the patient's name and designated Random esophagus biopsy. The specimen consists of three irregular fragments of light neves soft tissue that measure 0.4 to 0.6 cm. The specimen is totally submitted in one cassette. RI 05/02/2025 CPT:19101
--- NOTE | 2025-05-02 08:13 | PCM.POST.ANE ---
Anesthesia: Postop Eval I Current Vital Signs Temperature: 97 F Pulse Rate: 61 Blood Pressure: 153/55 Respiratory Rate: 16 Pulse Ox: 99 Oxygen Delivery Method: Room Air Assessment Airway patent: Yes Spontaneous unlabored respirations: Yes Mental status: Awake and Calm nausea: No Vomiting: No Anesthesia Complication: No Fluid Hydration Crystalloid volume administer (ml): 400 Total IV fluid infused: 400 Progress Note Anesthesia document: Postop Eval 1 completed: Yes
--- NOTE | 2025-05-02 08:23 | OP.EGD_ITS ---
Patient Name: Eloisa Chavez Procedure Date: 05/02/2025 7:43 AM Date of : 1940 Age: 84 Procedure: Upper GI endoscopy Indications: Epigastric abdominal pain, Dysphagia Providers: George Guzmán DO Referring MD: Jamie Hall Medicines: Monitored Anesthesia Care Patient Profile: This is an 84 year old female. Refer to note in patient chart for documentation of history and physical. Patient has symptoms of acute abdominal cramping, acute abdominal distention and acute dyspepsia. Complications: No immediate complications. Procedure: Pre-Anesthesia Assessment: - Prior to the procedure, a History and Physical was performed, and patient medications and allergies were reviewed. The patient is competent. The risks and benefits of the procedure and the sedation options and risks were discussed with the patient. All questions were answered and informed consent was obtained. Patient identification and proposed procedure were verified by the physician in the pre-procedure area. Mental Status Examination: alert and oriented. Airway Examination: normal oropharyngeal airway and neck mobility. Respiratory Examination: clear to auscultation. CV Examination: normal. Prophylactic Antibiotics: The patient does not require prophylactic antibiotics. Prior Anticoagulants: The patient has taken no anticoagulant or antiplatelet agents. ASA Grade Assessment: II - A patient with mild systemic disease. After reviewing the risks and benefits, the patient was deemed in satisfactory condition to undergo the procedure. The anesthesia plan was to use monitored anesthesia care (MAC). Immediately prior to administration of medications, the patient was re-assessed for adequacy to receive sedatives. The heart rate, respiratory rate, oxygen saturations, blood pressure, adequacy of pulmonary ventilation, and response to care were monitored throughout the procedure. The physical status of the patient was re-assessed after the procedure. After obtaining informed consent, the endoscope was passed under direct vision. Throughout the procedure, the patient's blood pressure, pulse, and oxygen saturations were monitored continuously. The Endoscope was introduced through the mouth, and advanced to the third part of the duodenum. Small bowel enteroscopy was deemed necessary. The upper GI endoscopy was accomplished without difficulty. The patient tolerated the procedure well. Scope In: 7:54:40 AM Scope Withdrawal Time 0 hours 0 minutes 1 second Scope Out: 8:04:37 AM Total Procedure Duration Time 0 hours 9 minutes 57 seconds Findings: Abnormal motility was noted in the esophagus. The cricopharyngeus was abnormal. There are extra peristaltic waves in the esophageal body. The distal esophagus/lower esophageal sphincter is spastic, but gives up passage to the endoscope. Tertiary peristaltic waves are noted. Biopsies were taken with a cold forceps for histology. Verification of patient identification for the specimen was done. A guidewire was placed and the scope was withdrawn. Dilation was performed with a Savary dilator with no resistance at 54 Fr. The dilation site was examined and showed moderate improvement in luminal narrowing. Estimated blood loss: none. A benign-appearing, intrinsic severe stenosis was found at the pylorus. This was traversed. A guidewire was placed and the scope was withdrawn. Dilation was performed with a Savary dilator with no resistance at 54 Fr. Suspect gastroparesis due to absence of peristalsis and patient symptoms. No gross lesions were noted in the entire examined duodenum. A 10 mm non-bleeding diverticulum was found in the gastric fundus. Impression: - Abnormal esophageal motility. Biopsied. Dilated. 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 - Gastroparesis. - No gross lesions in the entire examined duodenum. Recommendation: - Discharge patient to home. - Resume previous diet. - Continue present medications. - Await pathology results. Procedure Code(s): --- Professional --- 29597, Esophagogastroduodenoscopy, flexible, transoral; with dilation of gastric/duodenal stricture(s) (eg, balloon, bougie) 05331, Esophagogastroduodenoscopy, flexible, transoral; with insertion of guide wire followed by passage of dilator(s) through esophagus over guide wire 09375, 59,51, Small intestinal endoscopy, enteroscopy beyond second portion of duodenum, not including ileum; with biopsy, single or multiple CPT copyright 2021 [employer]. All rights reserved. The codes documented in this report are preliminary and upon new car get ready mechanic review may be revised to meet current compliance requirements. George Guzmán DO 05/02/2025 8:23:08 AM This report has been signed electronically. Number of Addenda: 0 Note Initiated On: 05/02/2025 7:43 AM
--- NOTE | 2025-05-02 08:23 | OP.PROVAT_ITS ---
05/02/2025 Jamie Hall Re : Upper GI endoscopy procedure for Eloisa Chavez Dear Dr. Hall This procedure was performed on Friday, May 02, 2025. My impressions and recommendations are as follows: Impressions : - Abnormal esophageal motility. Biopsied. Dilated. 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 - Gastroparesis. - No gross lesions in the entire examined duodenum. Recommendations : - Discharge patient to home. - Resume previous diet. - Continue present medications. - Await pathology results. My findings are described in the full procedure note, which is enclosed. If I can be of further assistance, please feel free to contact me at . Sincerely, George Guzmán, 05/02/2025 8:23:08 AM This report has been signed electronically.
--- NOTE | 2025-05-02 12:30 | PCM.POSTANE2 ---
Anesthesia Postop Eval I Sum Postop Eval Completion status Anesthesia document: Postop Eval 1 completed: Yes Anesthesia Postop Eval I Summary Anesthesia Postop Eval I Summary: Anesthesia Postop Eval I: Assessment Summary Airway patent Yes 05/02/25 08:14 [email or web address] Spontaneous unlabored Yes 05/02/25 08:14 [email or web address] respirations Mental status Awake,Calm 05/02/25 08:14 [email or web address] nausea No 05/02/25 08:14 [email or web address] Vomiting No 05/02/25 08:14 [email or web address] Anesthesia Postop Eval I: Fluid Summary Crystalloid volume administer 400 05/02/25 08:14 [email or web address] (ml) Colloids volume administered ( ml) Blood Product volume administered (ml) Total IV fluid infused 400 05/02/25 08:14 [email or web address] Anesthesia Postop Eval I: Summary Notes Anesthesia Complication No 05/02/25 08:14 [email or web address] Anesthesia Complication Comment: Post-operative progress note Anesthesia: Postop Eval II Evaluation Mental status: Awake and Calm Pain Level: 1 nausea: No Vomiting: No Complications Anesthesia Complication: No
== END 2025-05-02 09:02 | disposition home or self-care (01) ==
LOC: EN 06:25 → AC 06:27
PROVIDERS: PCP Family Medicine; Referring Provider Family Medicine; Visit Provider Internal Medicine Gastroenterology
PROC: 0DJ08ZZ Inspection of Upper Intestinal Tract, Via Natural or Artificial Opening Endoscopic (ICD-10-PCS; CPT 43235; principal; 2025-05-02 07:40)
DX: D64.89 Other specified anemias (principal); R10.9 Unspecified abdominal pain; R68.81 Early satiety; R19.7 Diarrhea, unspecified; K21.9 Gastro-esophageal reflux disease without esophagitis; Z79.899 Other long term (current) drug therapy; K59.00 Constipation, unspecified; R13.10 Dysphagia, unspecified; I10 Essential (primary) hypertension; K31.84 Gastroparesis; K22.89 Other specified disease of esophagus; K31.1 Adult hypertrophic pyloric stenosis
CPT/HCPCS: 43248; 43239; 88305; C1769; J2405

== ENCOUNTER → 2025-05-22 | Outpatient (CLI) | payer MEDICARE, SELFPAY ==
[2025-05-22 17:51] LABS: Hematocrit 35.6 % (37-47); Hemoglobin 12.0 g/dL (12.0-15.0); Immature Granulocytes Count 0.030 X10^3/uL (0.0-0.0); Mean Corp Hgb Conc 33.7 g/dL (32-36); Mean Corpuscular Volume 90.1 fL (81-99); Mean Platelet Vol. 12.3 fl (6.2-12.0); NRBC Flagged by Analyzer 0 % (0-5); POSITIVE COUNT YES; RBC Distribution Width CV 12.5 % (11.6-14.6); RBC Distribution Width SD 41.3 fl (35.1-43.9); Red Blood Count 3.95 M/mm3 (4.2-5.4); White Blood Count 8.2 K/mm3 (4.4-11.0)
[2025-05-22 18:12] LABS: Differential Indicated SCAN CRITERIA MET
[2025-05-22 20:56] LABS: AST(SGOT) 91 U/L (<=31); Alanine Aminotransfer ALT/SGPT 113 U/L (<=34); Albumin, Serum 3.9 g/dL (3.4-4.8); Alkaline Phosphatase 83 U/L (35-104); Anion Gap 13 (5-15); BUN 28 mg/dL (4-19); BUN/Creat Ratio 37.1 RATIO (10-20); Calcium,Total 9.7 mg/dL (7.6-11.0); Carbon Dioxide 20.5 mmol/L (21.0-32.0); Chloride 94 mmol/L (98-108); Cholesterol 154 mg/dL (<=200); Globulin 4.3 g/dL (2.2-4.2); Glucose 95 mg/dL (70-99); Low Density Lipoprotein Calc. 71 mg/dL; Magnesium 2.1 mg/dL (1.5-2.2); Potassium 4.8 mmol/L (3.3-5.1); Triglycerides 91 mg/dL; Very Low Density Lipoprotein 18 mg/dL (5-40); cholesterol:hdl ratio screen 2.39
[2025-05-22 20:57] LABS: Vitamin B12 > 4000 pg/mL (180-914); Vitamin D,25 Hydroxy 26.4 ng/mL (30-100)
[2025-05-23 12:57] LABS: Hepatitis B Surface Antigen Nonreactive (Nonreactive); Hepatitis C Antibody Nonreactive (Nonreactive)
== END | disposition home or self-care (01) ==
LOC: MFPLAB 16:29
PROVIDERS: PCP Family Medicine; Visit Provider Family Medicine
DX: I10 Essential (primary) hypertension (principal); R79.89 Other specified abnormal findings of blood chemistry; R53.83 Other fatigue
CPT/HCPCS: 36415; 80053; 80061; 82306; 82607; 83735; 84439; 84443; 85025; 86803; 87340

== ENCOUNTER → 2025-05-25 | Outpatient (CLI) | payer MEDICARE, SELFPAY ==
[2025-05-25 19:37] LABS: Osmolality, Urine 352 mOsm/KG
[2025-05-29 10:08] LABS: Thyroglobulin, Serum Qt. 105.1 ng/mL (1.5-38.5)
== END | disposition home or self-care (01) ==
LOC: LAB.FUTURE 15:44
PROVIDERS: PCP Family Medicine; Referring Provider Family Medicine; Visit Provider Family Medicine
DX: I10 Essential (primary) hypertension (principal); R79.89 Other specified abnormal findings of blood chemistry
CPT/HCPCS: 36415; 82436; 83935; 84133; 84300; 84432; 86376; 86707; 86800

== ENCOUNTER → 2025-06-04 | Outpatient (CLI) | payer MEDICARE, SELFPAY ==
--- NOTE | 2025-06-04 17:40 | US_ITS ---
PROCEDURE: THYROID 06/04/2025 REASON FOR EXAM: HASHIMOTOS TECHNIQUE: Procedure Code: USTHY Modality: US Procedure: THYROID Sonographic interrogation of the thyroid gland is performed using grayscale and color flow images. COMPARISON: None FINDINGS: Right thyroid lobe size: 3.5 x 1.5 x 1.6 cm Left thyroid lobe size: 4.6 x 1.7 x 1.9 cm Isthmus: 0.3 cm Background parenchymal echotexture is extremely heterogeneous. Nodules: 1. Lobe: Right, Location: Superior, Size: 1 cm, Stability: N/A Composition: Cystic or mostly cystic (+0) Echogenicity: Anechoic (+0) Margin: Smooth (+0) Shape: Wider than tall (+0) Echogenic Foci: None (+0) TI-RADS: 1 2. Lobe: Left, Location: Superior, Size: 1.5 cm, Stability: N/A Composition: Solid or almost completely solid (+2) Echogenicity: Hyper to Isoechoic (+1) Margin: Smooth (+0) Shape: Wider than tall (+0) Echogenic Foci: None (+0) TI-RADS: 3 3. Lobe: Left, Location: Mid, Size: 1.4 cm, Stability: N/A Composition: Solid or almost completely solid (+2) Echogenicity: Hyper to Isoechoic (+1) Margin: Smooth (+0) Shape: Wider than tall (+0) Echogenic Foci: None (+0) TI-RADS: 3 4. Lobe: Left, Location: Mid lateral, Size: 0.9 cm, Stability: N/A Composition: Solid or almost completely solid (+2) Echogenicity: Hyper to Isoechoic (+1) Margin: Smooth (+0) Shape: Wider than tall (+0) Echogenic Foci: None (+0) TI-RADS: 3 US/Thyroid IMPRESSION: Heterogeneous echo architecture of the thyroid gland with numerous bilateral th yroid nodules. TI-RADS 3. Mildly suspicious nodules. RECOMMENDATION: Follow-up evaluation with ultrasound in 12 months to assess stability. Reading Location: [id number]
--- OUTSIDE RECORDS SUMMARY | 2025-06-04 17:46 | XMS RPT_ITS | CCD ---
Author Organization [facility] Care Team Providers Care Computer Information Systems Professor Name Role Phone Dr. Coy Nath Primary [...] Primary Care Physician Mal Phipps MD Unavailable PORTILLO DOCOY R Attending Unavailable PORTILLO DOCOY R Primary Care Unavailable COY NATH DO R Primary Care Unavailable COY NATH DO R Attending Unavailable BALDEV KULKARNI MD Attending Unavailable PORTILLO DOCOY R Primary Care Unavailable Dr. Coy Nath [...] Attending Unavailable JANE GIRALDO Consulting Unavailable SEBASTIAN, DESEAN Alvarez Referring Unavailable DEVOODESEAN BROWN Referring Unavailable DESIREMAL LAMAR Attending Unavailable MAL PHIPPS Referring Unavailable MAL PHIPPS Attending Unavailable Dr. Coy Nath DO Primary Care Provider [phone] Dr. Coy Nath DO Referring Provider [phone] Dr. Emily Madrigal MD Attending Provider Imtiaz Turner Attending Provider Imtiaz Turner Referring Provider Dr. Emily Leyva MD Attending Provider Dr. Emily Madrigal MD Referring Provider Dr. Emily Madrigal MD Other Provider Dr. Emily Madrigal MD Admit Provider Nandini Grant PA-C Attending Provider Nandini Grant PA-C Referring Provider Dr. Coy Nath DO Attending Provider [phone] Dr. Coy Nath DO Primary Care Provider [phone] Dr. Coy Nath DO Referring Provider [phone] Dr. Emily Madrigal MD Attending Provider Bárbara Serrano Attending Provider [phone] Bárbara Serrano Referring Provider [phone] Coy Nath DO Primary Care Provider Portillo AZUL, Dr. Coy Alfonso Referring Provider [phone] Portillo AZUL, Dr. Coy Alfonso Primary Care Provider [phone] Nandini Grant PA-C Attending Provider Nandini Grant PA-C Referring Provider Portillo AZUL, Dr. Coy Alfonso Referring Provider [phone] Kaitlin LORD, Dr. Villasenor Attending Provider Portillo AZUL, Dr. Coy Alfonso Primary Care Provider Bárbara Serrano Attending Provider [phone] Portillo AZUL, Dr. Coy Alfonso Referring Provider [phone] Portillo AZUL, Dr. Coy Alfonso Attending Provider [phone] Portillo AZUL, Dr. Coy Alfonso Primary Care Physician Portillo AZUL, Dr. Coy Alfonso Attending Physician [phone] Portillo AZUL, Dr. Coy Alfonso Referring Provider [phone] Bárbara Serrano Attending Physician [phone] Arielle AZUL, Dr. Vazquez Attending Physician [phone] Arielle AZUL, Dr. Vazquez Nurse Practitioner Brown, Coy R Primary Care Unavailable Emily Madrigal Attending Unavailable Brown, Coy R Referring Unavailable Brown, Coy R Primary Care Unavailable Brown, Coy R Attending Unavailable Brown, Coy R Referring Unavailable Brown, Coy R Primary Care Unavailable Brown, Coy R Attending Unavailable Brown, Coy R Referring Unavailable Keisha Coronel Attending Unavailable Brown, Coy R Referring Unavailable Brown, Coy R Primary Care Unavailable Brock Marcial Primary Care Unavailable Brock Marcial Attending Unavailable Brock Marcial Referring Unavailable Brown, Coy R Primary Care Unavailable Brown, Coy R Attending Unavailable Brown, Coy R Referring Unavailable Brown, Coy R Primary Care Unavailable Brown, Coy R Attending Unavailable Brown, Coy R Referring Unavailable Brown, Coy R Primary Care Unavailable Emily Madrigal Attending Unavailable Emily Madrigal Referring Unavailable Emily Madrigal Consulting Unavailable Brown, Coy R Primary Care Unavailable Bárbara Logan Attending Unavailable Brown, Coy R Referring Unavailable Emily Madrigal Attending Unavailable Brown, Coy R Primary Care Unavailable Brown, Coy R Referring Unavailable Keisha Coronel Attending Unavailable Keisha Coronel Referring Unavailable Brown, Coy R Primary Care Unavailable Brown, Coy R Primary Care Unavailable Nandini Grant Referring Unavailable Nandini Grant Attending Unavailable Brown, Coy R Primary Care Unavailable Imtiaz Turner Attending Unavailable Imtiaz Turner Referring Unavailable Bárbara Logan Attending Unavailable Bárbara Logan Referring Unavailable Brown, Coy R Primary Care Unavailable Bárbara Logan Attending Unavailable Brown, Coy R Primary Care Unavailable Brown, Coy R Primary Care Unavailable Emily Madrigal Attending Unavailable Emily Madrigal Referring Unavailable Emily Madrigal Admitting Unavailable Brown, Coy R Referring Unavailable Brown, Coy R Primary Care Unavailable Brown, Coy R Attending Unavailable Bárbara Logan Attending Unavailable Brown, Coy R Referring Unavailable Brown, Coy R Primary Care Unavailable George Guzmán Attending Unavailable Brown, Coy R Referring Unavailable Brown, Coy R Primary Care Unavailable Brock Marcial Primary Care Unavailable Brock Marcial Attending Unavailable Brock Marcial Referring Unavailable Brown, Coy R Primary Care Unavailable Brock Marcial Attending Unavailable Bárbara Logan Attending Unavailable Brown, Coy R Referring Unavailable Brown, Coy R Primary Care Unavailable Brown, Coy R Primary Care Unavailable Nandini Grant Attending Unavailable Brown, Coy R Referring Unavailable Brown, Coy R Primary Care Unavailable Imtiaz Turner Attending Unavailable Brown, Coy R Referring Unavailable Brown, Coy R Primary Care Unavailable Emily Madrigal Referring Unavailable Emily Leyva Attending Unavailable Brown, Coy R Primary Care Unavailable Emily Madrigal Referring Unavailable Emily Madrigal Admitting Unavailable Emily Madrigal Consulting Unavailable Nandini Grant Attending Unavailable George Guzmán Consulting Unavailable George Guzmán Attending Unavailable Brown, Coy R Referring Unavailable Brown, Coy R Primary Care Unavailable Allergies Allergy Classification Reported Allergen(s) Allergy Type Date of Onset Reaction(s) Facility (17 sources) Chlorpheniramine Drug Allergy 2 Other [facility] (17 sources) Phenylephrine Drug Allergy 2 Other [facility] (20 sources) Pseudoephedrine; Translations: [pseudoephedrine] Drug Allergy 2 Unknown [facility] (20 sources) Triprolidine; Translations: [triprolidine] Drug Allergy 2 Unknown [facility] (1 source) NITRO PATCH Allergy to substance 2 UNKNOWN [facility] Work Phone: (20 sources) Nitroglycerin; Translations: [nitroglycerin] Drug Allergy 3 Syncope [facility] Comment on above: SPECIFICALLY NITRO P ATCH (15 sources) Amiodarone; Translations: [AMIODARONE] Drug Allergy 3 [facility] (1 source) Amiodarone Drug Allergy 5 [facility] Repository (1 source) Chlorpheniramine Drug Allergy 5 [facility] Rep[facility] (1 source) Nitroglycerin Drug Allergy 5 [facility] Rep[facility] (1 source) Phenylephrine Drug Allergy 5 [facility] Rep[facility] (1 source) Pseudoephedrine Drug Allergy 5 [facility] (1 source) Triprolidine Drug Allergy 5 [facility] Repository Medications Current Medications Medication Drug Class(es) [...] take 1 tablet by mouth once daily Start: 06-17-2016 take 1 dose by mouth once randolph y aspirin Dose : 81 mg =, Oral, qDay Start Date: 06/17/16 Status: Ordered cetirizine hydrochloride 10 mg oral tablet (18 sources) Histamine-1 Receptor Antagonist Start: 06-07-2023 take 1 tablet by mouth at bedtime Methylcellulose (20 sources) Start: 01-10-2025 Start: 01-10-2025 Methylcellulos e (With Sugar) (Citrucel (Sucrose)) powder [...] Date: 07/05/23 Stop Date: 07/11/23 Status: Ordered nitrofurantoin, macrocrystals 50 mg oral capsule (20 sources) Nitrofuran Antibacterial Start: 10-10-2024 End: 04-10-2025 take 1 capsule by mouth at bedtime Start: 07-01-2023 End: 08-17-2024 take 1 capsule [...] Discontinued 100 mg PO TWICE A DAY December 12, 2019 12:00am December 21, 2019 3:37pm must administer with a meal/food nitrofurantoin, macrocrystals 25 mg / nitrofurantoin, monohydrate 75 mg oral capsule (5 sources) Nitrofuran Antibacterial take 1 capsule by mouth once daily at bedtime nitrofurantoin, macrocrystal-monohydrate, (Macrobid) 100 mg capsule Indications: prevention of bacterial urinary tract infection Take 1 capsule (100 mg) by mouth once daily at bedtime. 0 Active pantoprazole 40 mg delayed release oral tablet (20 sources) Proton Pump Inhibitor Start : 06-08 End: 03-26 take 1 tablet by mouth once daily Pumpkin Seed Extract-Soy Germ (Azo Bladder Control) 300 mg capsule (17 sources) Start : 01-08 Pumpkin Seed Extract-Soy [...] Active CAP PO January 08, 2021 12:00am spironolactone 25 mg oral tablet (20 sources) Aldosterone Antagonist Start: 07-01-2023 End: 09-29-2023 take 1 mg by mouth once daily Spironolactone Discontinued MG PO DAILY July 01, 2023 12:00am September 29, 2023 3:37pm Start: 07-01-2023 take 1 mg by mouth once daily Spironolactone Active MG PO DAILY July 01, 2023 12:00am Start: 06-23-2023 End: 04-10-2025 take 1 tablet by mouth once daily Completed/Discontinued Medications Medication Drug Class(es) Dates Sig (Normalized) Sig (Original) acetaminophen 325 mg / HYDROcodone bitartrate 5 mg oral tablet (7 sources) Opioid Agonist Start: 06-01-2024 End: 07-04-2024 Hydrocodone-Acetamin ophen 5-325 mg tablet Discontinued 1 {tbl} PO EVERY 6 HOURS as needed for pain 6 2 0 June 01, 2024 July 04, 2024 3:59pm Sacroiliac joint dysfunction of left side Sacrococcygeal disorders, not elsewhere classified amiodarone hydrochloride 200 mg oral tablet (19 sources) Antiarrhythmic Start: 07-01-2023 End: 07-21-2023 take [...] Dihydropyridine Calcium Channel Radha Start: 06-17-2016 End: 04-10-2025 take 1 tablet by mouth once daily Amlodipine 10 mg tablet Discontinued 10 mg PO DAILY 90 June 30, 2024 5:28pm October 25, 2024 11:44am BP amoxicillin 875 mg oral tablet (7 sources) Penicillin-class Antibacterial Start: 07-27-2024 End: 08-17-2024 [...] (20 sources) Macrolide Antimicrobial Start: 10-11-2024 End: 04-26-2025 Azithromycin (Zithromax Z-Ken) 250 mg tablet Discontinued 0 PO .COMPLEX 6 January 10, 2025 12:00am April 26, 2025 1:56pm For 250 mg dose pack: take 500 [...] mg/ml / clotrimazole 10 mg/ml topical cream (16 sources) Azole Antifungal, Corticosteroid Start: 03-30-2022 End: [...] budesonide 3 mg delayed release oral capsule (3 sources) Corticosteroid Start: 11-29-2024 End: 01-24-2025 take [...] mg PO THREE TIMES A DAY 21 March 30, 2022 12:00am August 25, 2022 11:55am Start: 10-24-2021 End: 12-31-2021 take 1 capsule by mouth twice daily Cephalexin 500 mg capsule Discontinued 500 mg PO TWICE A DAY 10 October 24, 2021 1:00am December 31, 2021 2:01pm chlorhexidine gluconate 40 mg/ml medicated liquid soap (7 sources) Start: 08-24-2024 End: 08-31-2024 Chlorhexidine Gluconate [...] hydrochloride 120 mg extended release oral capsule (14 sources) Calcium Channel Radha Start: 06-07-2023 End: [...] mg / valsartan 320 mg oral tablet (17 sources) Thiazide Diuretic, Angiotensin 2 Receptor Radha Start: 11-24-2016 End: 11-01-2018 Valsartan-Hydrochlorothiazid e 1 EACH tablet Discontinued November 24, 2016 12:00am November 01, 2018 1:31pm Start: 11-24-2016 End: 11-01-2018 Valsartan-Hydrochlorothiazid e Discontinued November 23, 2016 11:00pm November 01, 2018 12:31pm ipratropium bromide 0.2 mg/ml inhalation solution (13 sources) Anticholinergic Start: 06-08-2023 End: 07-01-2023 take 0.5 mg by inhalation every four hours Ipratropium [place] 0.02 % Solution Discontinued 0.5 mg INHALATION EVERY 4 HOURS WHILE AWAKE 0 June 08, 2023 12:00am July 01, 2023 3:56pm Start: 06-08-2023 End: 07-01-2023 take 0.5 mg by inhalation every four hours Ipratropium [place] Discontinued 0.5 MG INHALATION EVERY 4 HOURS WHILE AWAKE 0 June 07, 2023 11:00pm July 01, 2023 2:56pm levoFLOXacin 750 mg oral tablet (20 sources) Quinolone Antimicrobial Start: 05-26-2023 End: 06-07-2023 Levofloxacin 750 mg tablet Discontinued 750 mg PO EVERY OTHER DAY 2 4 0 May 26, 2023 12:00am June 07, 2023 10:48am First dose 05/27, second dose 05/29 Start: 05-25-2023 End: 05-25-2023 take 1 tablet by mouth once daily Levofloxacin 500 mg tablet Discontinued 500 mg PO DAILY 10 May 25, 2023 12:00am May 25, 2023 3:18pm meloxicam 7.5 mg oral tablet (7 sources) Nonsteroidal Anti-inflammatory Drug Start: 06-01-2024 End: 08-28-2024 take 1 tablet by mouth once daily as needed for pain Meloxicam 7.5 mg tablet Discontinued 7.5 mg PO DAILY as needed for pain 5 0 June 01, 2024 8:58pm August 28, 2024 10:50am 24 hr metoprolol succinate 25 mg extended release oral tablet (20 sources) beta-Adrenergic Radha Start: 07-09-2023 End: 01-16-2025 take 1 tablet by mouth twice daily Metoprolol Succinate 25 mg tablet extended release 24 hr Discontinued 25 mg PO TWICE A DAY 180 2 April 26, 2024 11:43am January 16, 2025 8:14am Start: 05-26-2023 End: 06-07-2023 Metoprolol Tartrate 25 mg [place] Discontinued 12.5 mg PO TWICE A DAY 30 30 May 26, 2023 12:00am June 07, 2023 8:28pm Start: 05-26-2023 End: 06-07-2023 take 12.5 mg by mouth twice daily Metoprolol Tartrate Discontinued 12.5 MG PO TWICE A DAY 30 May 25, 2023 11:00pm June 07, 2023 7:28pm End: 07-20-2023 metoprolol tartrate (Lopress or) 25 mg tablet Take by mouth. 0 07/20/2023 Discontinued (Med List Cleanup) 24 hr mirabegron 50 mg extended release oral tablet (17 sources) beta3-Adrenergic Agonist Start: 07-04-2020 End: 01-08-2021 take 1 tablet by mouth once daily Mirabegron (Myrbetriq) 50 mg tablet extended release 24 hr Discontinued 50 mg PO DAILY 30 3 July 04, 2020 1:00am January 08, 2021 10:29am mupirocin 0.02 mg/mg topical ointment (7 sources) RNA Synthetase Inhibitor Antibacterial Start: 08-24-2024 [...] nares with a q-tip twice daily. nystatin [id number] unt/ml oral suspension (3 sources) Polyene Antifungal Start: 12-19-2024 End: 01-02-2025 take 1 mL by mouth three times daily Nystatin 100,000 unit/mL suspension Discontinued 4 mL PO THREE TIMES A DAY 168 14 0 December 19, 2024 12:00am January 01, 2025 12:00am January 02, 2025 12:08am swish and swallow oseltamivir 75 mg oral capsule (7 sources) Neuraminidase Inhibitor Start: 10-11-2024 End: 10-16-2024 take 1 capsule by mouth twice daily Oseltamivir (Tamiflu) 75 mg capsule Discontinued 75 mg PO TWICE A DAY 10 5 0 October 11, 2024 1:00am October 15, 2024 1:00am October 16, 2024 1:13am oxyCODONE hydrochloride 5 mg oral tablet (7 sources) Opioid Agonist Start: 08-28-2024 End: 09-06-2024 take 1 tablet by mouth every six hours as needed for pain Oxycodone 5 mg tablet Discontinued 5 mg PO EVERY 6 HOURS as needed for pain 10 3 0 August 28, 2024 September 06, 2024 2:56pm 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 Chronic Deficiency and other anemia (14 sources) Anemia; Translations: [Anemia, unspecified] 06-07-2023 Episodic Deficiency and other anemia (11 sources) Anemia, unspecified; Translations: [Anemia, unspecified] 06-08-2023 Episodic Deficiency and other anemia (2 sources) Other specified anemias; Translations: [Other specified anemias] Onset: 5 Episodic Diabetes mellitus without complication (6 sources) [...] hyponatremia] 06-07-2023 Episodic Gastroduodenal ulcer (except hemorrhage) (17 sources) H/O: gastric ulcer; Translations: [Personal history of peptic ulcer disease] 11-01-2018 Episodic Genitourinary symptoms and ill-defined conditions (18 sources) Urge incontinence of urine; Translations: [Urge incontinence] Chronic Headache; including migraine (17 sources) Frequent headache; Translations: [Frequent headaches] 11-01-2018 [...] colitis, unspecified] 11-17-2024 Episodic Nonspecific chest pain (11 sources) Chest discomfort; Translations: [Other chest pain] 07-17-2023 Episodic Osteoarthritis (17 sources) Arthritis; Translations: [Unspecified osteoarthritis, unspecified site] 11-01-2018 Chronic Other aftercare (10 sources) Encounter for follow-up examination after completed treatment for conditions other than malignant neoplasm; Translations: [Other follow-up examination] 06-07-2023 Episodic Other aftercare (2 sources) 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 I [...] new since our operation. Other circulatory disease (18 sources) H/O: atrial fibrillation; Translations: [Personal history of other diseases of the circulatory system] 06-07-2023 Episodic Other diseases of veins and lymphatics (17 sources) Peripheral venous insufficiency; Translations: [Venous insufficiency [...] Crohn's disease but there likely was additional "GI disease" in their brothers. With this information I [...] pleased at this decision. Other gastrointestinal disorders (9 sources) Dysphagia; Translations: [Dysphagia, unspecified] 11-17-2024 Episodic Comment on above: "CANNOT SWALLOW LARG E PILL" DRY MOUTH PER PATIENT Other gastrointestinal disorders (6 sources) Constipation; Translations: [Constipation, unspecified] 12-19-2024 Episodic Other injuries and conditions due to external causes (4 sources) Other injury of unspecified body region, initial encounter; Translations: [Contusion of unspecified site] 07-01-2023 Episodic Other liver diseases (7 sources) Elevated liver enzymes level; Translations: [Abnormal levels of other serum enzymes] 06-09-2024 Episodic Other lower respiratory disease (20 sources) Cough; Translations: [Cough] 11-05-2018 Episodic Other lower respiratory disease (17 sources) H/O: pneumonia; Translations: [Personal history of pneumonia (recurrent)] 11-01-2018 Episodic Comment on above: 06/2024 Other lower respiratory disease (15 sources) Dyspnea; Translations: [Shortness of breath] 05-25-2023 Episodic Other lower respiratory disease (15 sources) Hypoxemia; Translations: [Hypoxemia] 05-25-2023 Episodic Other lower respiratory disease (7 sources) Shortness of breath; Translations: [Shortness of breath] 05-25-2023 Episodic Other lower respiratory disease (7 sources) Hypoxemia; Translations: [Hypoxemia] 05-26-2023 Episodic Other lower respiratory disease (18 sources) Dyspnea on exertion; Translations: [Other forms of dyspnea] 06-07-2023 Episodic Other lower respiratory disease (6 sources) Solitary pulmonary nodule; Translations: [Solitary pulmonary nodule] 06-07-2023 Episodic Other non-traumatic joint disorders (7 sources) Hip pain; Translations: [Pain in unspecified [...] unspecified organism] 05-25-2023 Episodic Residual codes; unclassified (17 sources) Edema of left lower limb; Translations: [Localized edema] 09-21-2017 Episodic Residual codes; unclassified (3 sources) Early satiety; Translations: [Early satiety] 03-22-2025 Episodic Residual codes; unclassified (1 source) Early satiety; Translations: [Early satiety] Onset: 5 Episodic Spondylosis; intervertebral disc disorders; other back problems (3 sources) Disorder of lumbar disc; 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, thoracolumbar and lumbosacral intervertebral disc disorder] Onset: 3 10-04-2019 Chronic Spondylosis; intervertebral disc disorders; other back problems (20 sources) Chronic back pain ; Translations: [Dorsalgia, unspecified] 11-01-2018 Episodic Thyroid disorders (1 source) Autoimmune thyroiditis; 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 thyroiditis] Onset: 5 Chronic Unclassified (1 source) Other pericardial effusion (noninflammatory) (HHS-HCC); Translations: [Other pericardial effusion (noninflammatory) (HHS-HCC)] Onset: 3 Unclassified (5 sources) R10.9 - [...] satisfaction Chronic obstructive pulmonary disease and bronchiectasis (18 sources) Bronchitis; Translations: [Bronchitis, not specified as [...] Translations: [Diarrhea] Onset: 5 06-07-2023 Episodic Other lower respiratory disease (11 sources) Other forms of dyspnea; Translations: [Other respiratory abnormalities] Onset: 5 06-08-2023 Episodic Other lower respiratory disease (1 source) Cough; Translations: [Cough] Onset: 4 Episodic Other screening for suspected conditions (not mental disorders or infectious disease) (13 sources) Other specified abnormal findings of blood chemistry; Translations: [Elevated liver function tests] Onset: 5 06-15-2024 Episodic Other upper respiratory infections (20 sources) Acute frontal sinusitis; Translations: [Acute frontal sinusitis, unspecified] Onset: 5 11-05-2018 Episodic Risa-; endo-; and myocarditis; cardiomyopathy (except that caused by tuberculosis or sexually transmitted disease) (9 sources) Pericardial effusion; Translations: [Pericardial effusion] Onset: 3 06-08-2023 Episodic Syncope (9 sources) Syncope and collapse; Translations: [Syncope and collapse] Onset: 3 06-07-2023 Episodic Unclassified (16 sources) NECK/BACK PAIN 03-07-2022 Unclassified (1 source) Other pericardial effusion (noninflammatory) (HHS-HCC); Translations: [Other pericardial effusion (noninflammatory) (HHS-HCC)] Onset: 3 Results Test Name Value Interpretation Reference Range Facility Hepatitis Be Abon 05-29-2025 HEP Be Ab Non-Reactive Normal Negative [facility] Comment on above: Performed By: #### L 3100.0480, L500.9400, L501.7400, L3300.6900, [id number] ####[facility] [id number] [place], [place], [id number] Thyroglobulin w/Anti-TG ABon 05-29-2025 Anti-TG AB < 1.0 Normal 0.0-0.9 [facility] Comment on above: Result Comment: Thyr oglobulin Antibody measured by [employer] It should be noted that the presence of thyroglobulin antibodies may not be pathogenic nor diagnostic, especially at very low levels. The assay workday director has found that four percent of individuals without evidence of thyroid disease or autoimmunity will have positive TgAb levels up to 4 IU/mL. Performed By: #### L 3100.0480, L500.9400, L501.7400, L3300.6900, [id number] ####[facility] [id number] [place], [address] THYROGLOB QUANT 105.1 ng/mL High 1.5-38.5 [facility] Comment on above: Result Comment: Acco rding to the National Academy of Clinical [employer]ochemistry, the reference interval for Thyroglobulin (TG) should be related to euthyroid patients and not for patients who underwent thyroidectomy. TG reference intervals for these patients depend on the residual mass of the thyroid tissue left after surgery. Establishing a post-operative baseline is recommended. The assay limit of quantitation is 0.1 ng/mL Thyroglobulin measured by [facility] Performed By: #### L 3100.0480, L500.9400, L501.7400, L3300.6900, [id number] ####[facility] [id number], [address] Thyroid Peroxidase ABon 05-16 THYR PEROX AB 296 IU/mL High 0-34 [facility] Comment on above: Result Comment: Perf ormed at: - [facility] [address] [id number] Aerospace Stress Engineer: Brennan Yi PhD, Phone: [phone] Performed By: #### L 3100.0480, L500.9400, L501.7400, L3300.6900, [id number] ####[facility] [id number] [place], [place], [address] Osmolality, Urineon 10-10-20 25 OSMOLALITY,UR 352 mOsm/KG Normal [facility] Comment on above: Result Comment: Normal Urine Reference Ranges Random: 50 - 1200 mOsm/kg H20 depending on fluid intake Random: >850 mOsm/kg after 12 hour fluid restriction 24 hour: 300 - 900 mOsm/kg H2O Performed By: #### L 3100.0480, L500.9400, L501.7400, L3300.6900, L3300.6820 ####[facility] [address] [place], [address] Urine Electrolytes- Randomon 10-10-2025 Chloride,URINE 22 mmol/L Normal Not Establ. [facility] Comment on above: Performed By: #### L 3100.0480, L500.9400, L501.7400, L3300.6900, L3300.6820 ####[facility] [address] [place], [address] Sodium (U) [Moles/Vol] 33 mmol/L Normal Not Establ. [facility] Comment on above: Performed By: #### L 3100.0480, L500.9400, L501.7400, L3300.6900, L3300.6820 ####[facility] [address] [place], [address] UR K 29.4 mmol/L Normal Not Establ. [facility] Comment on above: Performed By: #### L 3100.0480, L500.9400, L501.7400, L3300.6900, L3300.6820 ####[facility] [address] [place], [address] Hepatitis C Antibodyon 05-23 Hepatitis C Ab Non-Reactive Normal Nonreactive [facility] Comment on above: Order Comment: ADD O N TESTS TO BW DONE 05/22(WED)Order Date: 05/22/25Order Info: 0786-1 - CMPOrder Info: [id number] - LIPIDOrder Info: [id number] - MGOrder Info: 3016-3 - TSHOrder Info: 3024-7 - T4F Result Comment: Reac tive: Presumptive evidence of antibodies to HCV. Follow CDC recommendations for supplemental testing. Non-Reactive: Antibodies to HCV were not detected; does not exclude the possibility of exposure to HCV Reactive Results are presumptive evidence of antibodies to HCV. Follow CDC recommendations for supplemental testing. Order confirmation testing: HCV Quant by PCR testing - HCVPCR #[id number] Non Reactive: < 0.8 Equivocal: >/= 0.8 to < 1.0 Reactive: >/= 1.0 The CDC requires that a reactive/equivocal HCV antibody result be sent out for confirmation. HCV Quant by PCR testing. Performed By: #### L 3000.0375 #### [facility] [address] [place], [address] L3890.6102on 05-23-2025 HEP B Surf Ag Non-Reactive Normal Nonreactive [facility] Comment on above: Order Comment: ADD O N TESTS TO BW DONE 05/22(E)Order Date: 05/22/25Order Info: 07- - CMPOrder Info: [id number] - LIPIDOrder Info: [id number] - MGOrder Info: 3015-10 - TSHOrder Info: 3024-02 - T4F Result Comment: Reac tive: Presumptive evidence of HBV. Repeatedly reactive samples must be confirmed using a neutralization test ([employer] HBsAg Confirmatory Test) Non-Reactive: HBsAg not detected; does not exclude the possibility of exposure to HBV Performed By: #### L 3000.0375 #### [facility] [address] [place], [place], [address] CBC W/Diff, Automatedon PLT EST ADEQUATE Normal ADEQ [facility] Comment on above: Order Comment: Order Date: 05/22/25 Order Info: 0184-1 - CBCD Performed By: #### L 100.0100, L501.9520, L500.4050, L500.4100, L501.5200, L506.0400 #### [facility] [address] [place], [address] Comprehensive Metabolic Prof ilon 05-22-2025 Albumin [Mass/Vol] 3.9 g/dL Normal 3.4-4.8 [facility] Comment on above: Order Comment: Order Date: 05/22/25 Order Info: 0786- - CMP Order Info: [id number] - LIPID Order Info: [id number] - MG Order Info: 3 - TSH Order Info: 3024-02 - T4F Performed By: #### L 100.0100, L501.9520, L500.4050, L500.4100, L501.5200, L506.0400 #### [facility] [address] [place], [address] Albumin/Globulin [Mass ratio] 0.9 {ratio} Normal 0.9-2.4 [facility] Comment on above: Order Comment: Order Date: 05/22/25 Order Info: 0786-1 - CMP Order Info: 97789-5 - LIPID Order Info: [id number] - MG Order Info: 3016-3 - TSH Order Info: 3024-7 - T4F Performed By: #### L 100.0100, L501.9520, L500.4050, L500.4100, L501.5200, L506.0400 #### [facility] [address] [place], [address] ALK PHOS 83 U/L Normal 35-104 [facility] Comment on above: Order Comment: Order Date: 05/22/25 Order Info: 86-1 - CMP Order Info: [id number] - LIPID Order Info: [id number] - MG Order Info: 3016-3 - TSH Order Info: 3024-7 - T4F Performed By: #### L 100.0100, L501.9520, L500.4050, L500.4100, L501.5200, L506.0400 #### [facility] [address] [place], [address] ALT [Catalytic activity/Vol] 113 U/L High <=34 [facility] Comment on above: Order Comment: Order Date: 05/22/25 Order Info: 86-1 - CMP Order Info: 55514-1 - LIPID Order Info: 47811-3 - MG Order Info: 3016-3 - TSH Order Info: 3024-7 - T4F Performed By: #### L 100.0100, L501.9520, L500.4050, L500.4100, L501.5200, L506.0400 #### [facility] [address] [place], [address] AST [Catalytic activity/Vol] 91 U/L High <=31 [facility] Comment on above: Order Comment: Order Date: 05/22/25 Order Info: 86-1 - CMP Order Info: 27231-0 - LIPID Order Info: 34812-7 - MG Order Info: 3016-3 - TSH Order Info: 3024-7 - T4F Performed By: #### L 100.0100, L501.9520, L500.4050, L500.4100, L501.5200, L506.0400 #### [facility] [address] [place], [address] Bilirubin [Mass/Vol] 0.51 mg/dL Normal 0.00-1.30 [facility] Comment on above: Order Comment: Order Date: 05/22/25 Order Info: 785-1 - CMP Order Info: 95639-9 - LIPID Order Info: 33694-0 - MG Order Info: 301-3 - TSH Order Info: 3024-7 - T4F Performed By: #### L 100.0100, L501.9520, L500.4050, L500.4100, L501.5200, L506.0400 #### [facility] [address] [place], [address] BUN/CRE 37.1 RATIO High 10-20 [facility] Comment on above: Order Comment: Order Date: 05/22/25 Order Info: 86-1 - CMP Order Info: [id number] - LIPID Order Info: [id number] - MG Order Info: 3016-3 - TSH Order Info: 3024-7 - T4F Performed By: #### L 100.0100, L501.9520, L500.4050, L500.4100, L501.5200, L506.0400 #### [facility] [address] [place], [address] Calcium [Mass/Vol] 9.7 mg/dL Normal 7.6-11.0 [facility] Comment on above: Order Comment: Order Date: 05/22/25 Order Info: 86-1 - CMP Order Info: [id number] - LIPID Order Info: [id number] - MG Order Info: 3015-3 - TSH Order Info: 3024-7 - T4F Performed By: #### L 100.0100, L501.9520, L500.4050, L500.4100, L501.5200, L506.0400 #### [facility] [address] [place], [address] Chloride [Moles/Vol] 94 mmol/L Low 98-108 [facility] Comment on above: Order Comment: Order Date: 05/22/25 Order Info: 785-1 - CMP Order Info: [id number] - LIPID Order Info: 57795-5 - MG Order Info: 3 - TSH Order Info: 3024-7 - T4F Performed By: #### L 100.0100, L501.9520, L500.4050, L500.4100, L501.5200, L506.0400 #### [facility] [address] [place], [address] CO2 [Moles/Vol] 20.5 mmol/L Low 21.0-32.0 [facility] Comment on above: Order Comment: Order Date: 05/22/25 Order Info: 785-1 - CMP Order Info: 71035-4 - LIPID Order Info: 17492-8 - MG Order Info: 3 - TSH Order Info: 3024-7 - T4F Performed By: #### L 100.0100, L501.9520, L500.4050, L500.4100, L501.5200, L506.0400 #### [facility] [address] [place], [address] Creatinine [Mass/Vol] 0.76 mg/dL Normal 0.70-1.20 [facility] Comment on above: Order Comment: Order Date: 05/22/25 Order Info: 86-1 - CMP Order Info: 10647-1 - LIPID Order Info: 72865-1 - MG Order Info: 3016-3 - TSH Order Info: 7 - T4F Performed By: #### L 100.0100, L501.9520, L500.4050, L500.4100, L501.5200, L506.0400 #### [facility] [address] [place], [address] GAP 13 Normal 5-15 [facility] Comment on above: Order Comment: Order Date: 05/22/25 Order Info: 86-1 - CMP Order Info: 51490-7 - LIPID Order Info: 16078-2 - MG Order Info: 3 - TSH Order Info: 7 - T4F Performed By: #### L 100.0100, L501.9520, L500.4050, L500.4100, L501.5200, L506.0400 #### [facility] [address] [place], [place], [address] GFR/1.73 sq M.predicted among non-blacks MDRD (S/P/Bld) [Vol rate/Area] 77 mL/min/{1.73_m2} Normal >60 [facility] Comment on above: Order Comment: Order Date: 05/22/25 Order Info: 785-1 - CMP Order Info: 07980-7 - LIPID Order Info: 82976-7 - MG Order Info: 3 - TSH Order Info: 7 - T4F Result Comment: mL/m in/1.73m2 CKD-EPI Creatinine Equation (2020) Performed By: #### L 100.0100, L501.9520, L500.4050, L500.4100, L501.5200, L506.0400 #### [facility] [address] [place], [place], [address] Globulin (S) [Mass/Vol] 4.3 g/dL High 2.2-4.2 [facility] Comment on above: Order Comment: Order Date: 05/22/25 Order Info: 86-1 - CMP Order Info: 17110-9 - LIPID Order Info: 02382-7 - MG Order Info: 3015-3 - TSH Order Info: 3024-7 - T4F Performed By: #### L 100.0100, L501.9520, L500.4050, L500.4100, L501.5200, L506.0400 #### [facility] [address] [place], [address] Glucose [Mass/Vol] 95 mg/dL Normal 70-99 [facility] Comment on above: Order Comment: Order Date: 05/22/25 Order Info: 86-1 - CMP Order Info: 69583-7 - LIPID Order Info: 59900-3 - MG Order Info: 3 - TSH Order Info: 3024-7 - T4F Performed By: #### L 100.0100, L501.9520, L500.4050, L500.4100, L501.5200, L506.0400 #### [facility] [address] [place], [address] Potassium [Moles/Vol] 4.8 mmol/L Normal 3.3-5.1 [facility] Comment on above: Order Comment: Order Date: 05/22/25 Order Info: 0786-1 - CMP Order Info: 61207-4 - LIPID Order Info: 69587-8 - MG Order Info: 3015-3 - TSH Order Info: 3024-7 - T4F Performed By: #### L 100.0100, L501.9520, L500.4050, L500.4100, L501.5200, L506.0400 #### [facility] [address] [place], [address] Sodium [Moles/Vol] 127 mmol/L Low 133-145 [facility] Comment on above: Order Comment: Order Date: 05/22/25 Order Info: 0786-1 - CMP Order Info: 20059-5 - LIPID Order Info: 96584-1 - MG Order Info: 3016-3 - TSH Order Info: 3024-7 - T4F Performed By: #### L 100.0100, L501.9520, L500.4050, L500.4100, L501.5200, L506.0400 #### [facility] [address] [place], [place], [address] T PROT 8.1 g/dL Normal 5.9-8.4 [facility] Comment on above: Order Comment: Order Date: 05/22/25 Order Info: 86-1 - CMP Order Info: [id number] - LIPID Order Info: 13732-1 - MG Order Info: 3016-3 - TSH Order Info: 3024-7 - T4F Performed By: #### L 100.0100, L501.9520, L500.4050, L500.4100, L501.5200, L506.0400 #### [facility] [address] [place], [place], [address] Urea nitrogen [Mass/Vol] 28 mg/dL High 4-19 [facility] Comment on above: Order Comment: Order Date: 05/22/25 Order Info: 785-1 - CMP Order Info: 08099-5 - LIPID Order Info: 62546-4 - MG Order Info: 3016-3 - TSH Order Info: 3024-7 - T4F Performed By: #### L 100.0100, L501.9520, L500.4050, L500.4100, L501.5200, L506.0400 #### [facility] [address] [place], [place], [address] Lipid Profileon 05-22-2025 CHOL:HDL 2.39 Normal [facility] Comment on above: Order Comment: Order Date: 05/22/25Order Info: 86-1 - CMPOrder Info: 96620-7 - LIPIDOrder Info: [id number] - MGOrder Info: 3016-3 - TSHOrder Info: 3024-7 - T4F Performed By: #### L 100.0100, L501.9520, L500.4050, L500.4100, L501.5200, L506.0400 ####[facility] [address] [place], [address] Cholesterol [Mass/Vol] 154 mg/dL Normal <=200 [facility] Comment on above: Order Comment: Order Date: 05/22/25Order Info: 0786-1 - CMPOrder Info: 23967-6 - LIPIDOrder Info: 30111-0 - MGOrder Info: 3016-3 - TSHOrder Info: 3027 - T4F Result Comment: Chol esterol level, Desirable <200 mg/dL Borderline high cholesterol 200-239 mg/dL High cholesterol >=240 mg/dL Recommendations of the NCEP Adult Treatment Panel for the following risk-cutoff thresholds for the [place] population. Performed By: #### L 100.0100, L501.9520, L500.4050, L500.4100, L501.5200, L506.0400 ####[facility] [address] [place], [address] Cholesterol in HDL [Mass/Vol] 65 mg/dL Normal [facility] Comment on above: Order Comment: Order Date: 05/22/25Order Info: 0786-1 - CMPOrder Info: [id number] - LIPIDOrder Info: 79972-6 - MGOrder Info: 6-3 - TSHOrder Info: 7 - T4F Result Comment: Pat onal Cholesterol Education Program (NCEP) guidelines: <40 mg/dL: Low HDL-cholesterol (major risk factor for CHD) >= 60 mg/dL: High HDL-cholesterol (negative risk factor for CHD) HDL-cholesterol is affected by a number of factors, e.g. smoking, exercise, hormones, sex and age. Performed By: #### L 100.0100, L501.9520, L500.4050, L500.4100, L501.5200, L506.0400 ####[facility] [address] [place], [address] Cholesterol in LDL [Mass/Vol] 71 mg/dL Normal [facility] Comment on above: Order Comment: Order Date: 05/22/25Order Info: 0786-1 - CMPOrder Info: [id number] - LIPIDOrder Info: 04821-1 - MGOrder Info: 3015-10 - TSHOrder Info: 3024-02 - T4F Result Comment: Bord qgyvpa=177-447 mg/dL Higher Anom=381 mg/dL or greater Friedwald Equation for LDL-C Performed By: #### L 100.0100, L501.9520, L500.4050, L500.4100, L501.5200, L506.0400 ####[facility] [address] [place], [address] Cholesterol in VLDL [Mass/Vol] 18 mg/dL Normal 5-40 [facility] Comment on above: Order Comment: Order Date: 05/22/25Order Info: 785- - CMPOrder Info: - LIPIDOrder Info: - MGOrder Info: 3015-10 - TSHOrder Info: 3024-02 - T4F Performed By: #### L 100.0100, L501.9520, L500.4050, L500.4100, L501.5200, L506.0400 ####[facility] [address] [place], [place], [phone] Triglyceride [Mass/Vol] 91 mg/dL Normal [facility] Comment on above: Order Comment: Order Date: 05/22/25Order Info: 785-08 - CMPOrder Info: - LIPIDOrder Info: [id number] - MGOrder Info: 3015-10 - TSHOrder Info: 3024-02 - T4F Result Comment: The drugs N-Acetylcysteine and Metamizole may falsely depress this assay. Normal range: <150 mg/dL Borderline High: 150-199 mg/dL High: 200-499 mg/dL Very High: >500 mg/dL Performed By: #### L 100.0100, L501.9520, L500.4050, L500.4100, L501.5200, L506.0400 ####[facility] [address] [place], [place], [address](215) Magnesiumon 05-22-2025 Magnesium [Mass/Vol] 2.1 mg/dL Normal 1.5-2.2 [facility] Comment on above: Order Comment: Order Date: 05/22/25Order Info: 785- - CMPOrder Info: [id number] - LIPIDOrder Info: 60089-3 - MGOrder Info: 3015-3 - TSHOrder Info: 3023-7 - T4F Performed By: #### L 100.0100, L501.9520, L500.4050, L500.4100, L501.5200, L506.0400 ####[facility] [address] [place], [address] T4 Free Directon 05-22-2025 T4 FREE DIRECT 0.90 ng/dL Normal 0.76-1.46 [facility] Comment on above: Order Comment: Order Date: 05/22/25Order Info: 785-08 - CMPOrder Info: - LIPIDOrder Info: - MGOrder Info: 3 - TSHOrder Info: 3024-02 - T4F Performed By: #### L 100.0100, L501.9520, L500.4050, L500.4100, L501.5200, L506.0400 ####[facility] [address] [place], [address] Thyroglobulin w/Anti-TG ABon 05-22-2025 Anti-TG AB Normal [facility] Comment on above: Order Comment: ADD O N TESTS TO BW DONE 05/22(WED) Result Comment: NANCY ENT CALLED BACK BY DEMARCO HAMILTON AT [facility]. NOT ENOUGH FOR SEND OUTS Performed By: #### L 3000.0375 #### [facility] [address] [place], [address] Thyroid Stim Hormone (TSH)on 05-22-2025 TSH 9.180 uIU/mL High 0.300-4.200 [facility] Comment on above: Order Comment: Order Date: 05/22/25Order Info: 785-08 - CMPOrder Info: [id number] - LIPIDOrder Info: [id number] - MGOrder Info: 63 - TSHOrder Info: 3024-7 - T4F Performed By: #### L 100.0100, L501.9520, L500.4050, L500.4100, L501.5200, L506.0400 ####[facility] [address] [place], [address] Vitamin B12on 05-22-2025 Cobalamin (Vitamin B12) [Mass/Vol] pg/mL High 180-914 [facility] Comment on above: Order Comment: Order Date: 05/22/25Order Info: 86-1 - CMPOrder Info: [id number] - LIPIDOrder Info: - MGOrder Info: 3015-10 - TSHOrder Info: 3027 - T4F Performed By: #### L 3000.0375 #### [facility] [address] [place], [address] Vitamin D,25 Hydroxyon 05-22 Vitamin D 25-OH 26.4 ng/mL Low 30-100 [facility] Comment on above: Order Comment: Order Date: 05/22/25Order Info: 785- - CMPOrder Info: [id number] - LIPIDOrder Info: - MGOrder Info: 3015-10 - TSHOrder Info: 30247 - T4F Result Comment: Nikki min D Status Deficiency: <20 ng/mL (50nmol/L) Insufficiency: 20-30 ng/mL (50-75 nmol/L) Sufficiency: 30-100 ng/mL (75-250 nmol/L) Toxicity: >100 ng/mL (>250 nmol/L) Performed By: #### L 3000.0375 #### [facility] [address] [place], [address] EGD Reporton 05-02-2025 EGD Report [facility] Medical Records Department [address] [place] [address] EGD Report MR#: [id number] Acct: [id number] Name: MODESTA COOK Rep #: [id number] : 1940 84 From: George Guzmán DO PCP: Dr. Coy Nath DO Status[place] Patient Name: Modesta Cook Procedure Date: 05/02/2025 7:43 AM Date of : 1940 Age: 84 Procedure: Upper GI endoscopy Indications: Epigastric abdominal pain, Dysphagia Providers: George Guzmán DO Referring MD: Coy Nath Medicines: Monitored Anesthesia Care Patient Profile: This is an 84 year old female. Refer to note in patient chart for documentation of history and physical. Patient has symptoms of acute abdominal cramping, acute abdominal distention and acute dyspepsia. Complications: No immediate complications. Procedure: Pre-Anesthesia Assessment: - Prior to the procedure, a History and Physical was performed, and patient medications and allergies were reviewed. The patient is competent. The risks and benefits of the procedure and the sedation options and risks were discussed with the patient. All questions were answered and informed consent was obtained. Patient identification and proposed procedure were verified by the physician in the pre-procedure area. Mental Status Examination: alert and oriented. Airway Examination: normal oropharyngeal airway and neck mobility. Respiratory Examination: clear to auscultation. CV Examination: normal. Prophylactic Antibiotics: The patient does not require prophylactic antibiotics. Prior Anticoagulants: The patient has taken no anticoagulant or antiplatelet agents. ASA Grade Assessment: II - A patient with mild systemic disease. After reviewing the risks and benefits, the patient was deemed in satisfactory condition to undergo the procedure. The anesthesia plan was to use monitored anesthesia care (MAC). Immediately prior to administration of medications, the patient was re-assessed for adequacy to receive sedatives. The heart rate, respiratory rate, oxygen saturations, blood pressure, adequacy of pulmonary ventilation, and response to care were monitored throughout the procedure. The physical status of the patient was re-assessed after the procedure. After obtaining informed consent, the endoscope was passed under direct vision. Throughout the procedure, the patient's blood pressure, pulse, and oxygen saturations were monitored continuously. The Endoscope was introduced through the mouth, and advanced to the third part of the duodenum. Small bowel enteroscopy was deemed necessary. The upper GI endoscopy was accomplished without difficulty. The patient tolerated the procedure well. Scope In: 7:54:40 AM Scope Withdrawal Time 0 hours 0 minutes 1 second Scope Out: 8:04:37 AM Total Procedure Duration Time 0 hours 9 minutes 57 seconds Findings: Abnormal motility was noted in the esophagus. The cricopharyngeus was abnormal. There are extra peristaltic waves in the esophageal body. The distal esophagus/lower esophageal sphincter is spastic, but gives up passage to the endoscope. Tertiary peristaltic waves are noted. Biopsies were taken with a cold forceps for histology. Verification of patient identification for the specimen was done. A guidewire was placed and the scope was withdrawn. Dilation was performed with a Savary dilator with no resistance at 54 Fr. The dilation site was examined and showed moderate improvement in luminal narrowing. Estimated blood loss: none. A benign-appearing, intrinsic severe stenosis was found at the pylorus. This was traversed. A guidewire was placed and the scope was withdrawn. Dilation was performed with a Savary dilator with no resistance at 54 Fr. Suspect gastroparesis due to absence of peristalsis and patient symptoms. No gross lesions were noted in the entire examined duodenum. A 10 mm non-bleeding diverticulum was found in the gastric fundus. Impression: - Abnormal esophageal motility. Biopsied. Dilated. 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 - Gastroparesis. - No gross lesions in the entire examined duodenum. Recommendation: - Discharge patient to home. - Resume previous diet. - Continue present medications. - Await pathology results. Procedure Code(s): --- Professional --- 11682, Esophagogastroduodenoscop y, flexible, transoral; with dilation of gastric/duodenal stricture(s) (eg, balloon, bougie) 95872, Esophagogastroduodenoscop y, flexible, transoral; with insertion of guide wire followed by passage of dilator(s) through esophagus over guide wire 94635, 59,51, Small intestinal endoscopy, enteroscopy beyond second portion of duodenum, not including ileum; with biopsy, single or multiple CPT copyright 2021 [employer]. All rights reserved. The codes documente (more content not included)... Normal [facility] MR/OP.Giuseppe 05-02-2025 [facility] Medical Records Department [address] [place] [address] Provation Physician Letter MR#: [id number] Acct: [id number] Name: MODESTA COOK Rep #: [id number] : 1940 84 From: George Guzmán DO PCP: Dr. Coy Nath DO Status:[facility] 05/02/2025 Coy Nath Re : Upper GI endoscopy procedure for Modesta Cook Dear Dr. Nath This procedure was performed on Friday, May 02, 2025. My impressions and recommendations are as follows: Impressions : - Abnormal esophageal motility. Biopsied. Dilated. 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 - Gastroparesis. - No gross lesions in the entire examined duodenum. Recommendations : - Discharge patient to home. - Resume previous diet. - Continue present medications. - Await pathology results. My findings are described in the full procedure note, which is enclosed. If I can be of further assistance, please feel free to contact me at . Sincerely, George Guzmán DO 05/02/2025 8:23:08 AM This report has been signed electronically. 05/02/25822 Date George Guzmán DO Cosigner Signature: Date (if indicated) CC: Dr. Coy Nath DO; George Guzmán DO Date Dictated: 05/02/25742 Date Transcribed: Ventilation Equipment Tender: RF Signed [facility] MR/POSTOP.Kita 05-02-2025 MR/POSTOP.[facility] Medical Records Department [address] [place] [address] Anesthesia Postop Eval I 05/02/25812 MR#: [id number] Acct: [id number] Name: MODESTA COOK Rep #: [id number] : 1940 84 From: Gabino Julio PCP: Dr. Coy Nath, DO Status:[facility] Y Race: C Location: [place] [address] Anesthesia: Postop Eval I Current Vital Signs Temperature: 97 F Pulse Rate: 61 Blood Pressure: 153/55 Respiratory Rate: 16 Pulse Ox: 99 Oxygen Delivery Method: Room Air Assessment Airway patent: Yes Spontaneous unlabored respirations: Yes Mental status: Awake and Calm nausea: No Vomiting: No Anesthesia Complication: No Fluid Hydration Crystalloid volume administer (ml): 400 Total IV fluid infused: 400 Progress Note Anesthesia document: Postop Eval 1 completed: Yes 05/02/25813 Date Gabino Mittal Signature: Date CC: Signed Normal [facility] MR/[id number] 05-02-2025 [facility] Medical Records Department [address] [place] [address] Anesthesia Postop Eval II 05/02/25 1230 MR#: [id number] Acct: [id number] Name: MODESTA COOK Rep #: [id number] : 1940 84 From: Srikanth Costa MD PCP: Dr. Coy Nath, DO Status:[facility] Y Race: C Location: EN Anesthesia Postop Eval I Sum Postop Eval Completion status Anesthesia document: Postop Eval 1 completed: Yes Anesthesia Postop Eval I Summary Anesthesia Postop Eval I Summary: Anesthesia Postop Eval I: Assessment Summary Airway patent Yes 05/02/25 08:14 [email or web address] Spontaneous unlabored Yes 05/02/25 08:14 [email or web address] respirations Mental status Awake,Calm 05/02/25 08:14 [email or web address] nausea No 05/02/25 08:14 [email or web address] Vomiting No 05/02/25 08:14 [email or web address] Anesthesia Postop Eval I: Fluid Summary Crystalloid volume administer 400 05/02/25 08:14 [email or web address] (ml) Colloids volume administered ( ml) Blood Product volume administered (ml) Total IV fluid infused 400 05/02/25 08:14 [email or web address] Anesthesia Postop Eval I: Summary Notes Anesthesia Complication No 05/02/25 08:14 [email or web address] Anesthesia Complication Comment: Post-operative progress note Anesthesia: Postop Eval II Evaluation Mental status: Awake and Calm Pain Level: 1 nausea: No Vomiting: No Complications Anesthesia Complication: No 05/02/25 1230 Date Srikanth Costa MD [facility] Signature: Date CC: Signed Normal [facility] Surgery Specimen Level Lizette 05-02-2025 Surgery Specimen Level IV Patient Age/Sex Location Account Attending Physician MODESTA COOK 84/F EN [id number] George Guzmán DO Specimen: [id number] Received: 05/02/25 Status: SHELBY Hoover Num: [id number] Spec Type: EGD BIOPSY Subm Dr: George Guzmán, DO HEADER OPERATION: EGD with biopsies and dilation PRE-OP DIAGNOSIS: Difficulty swallowing and abdominal pain TISSUE SUBMITTED: A- Random esophagus biopsy MICROSCOPIC DIAGNOSIS A. Esophagus, random, biopsy: - Squamous mucosa negative for eosinophils. MICROSCOPIC DESCRIPTION Slides are reviewed. GROSS DESCRIPTION A. Received in fixative is one container labeled with the patient's name and designated Random esophagus biopsy." The specimen consists of three irregular fragments of light neves soft tissue that measure 0.4 to 0.6 cm. The specimen is totally submitted in one cassette. [place] 05/02/2025 CPT:71171 Patient Age/Sex Location Account Attending Physician MODESTA COOK 84/F EN [id number] George Friend, DO Signed (signature on file) Dr. Otilia Monk MD 05/03/25 1715 Normal [facility] Comment on above: Performed By: #### P SUIV ####[facility] [address] [place], [place], [address] /Daniel 04-26-2025 /[facility] Medical Records Department [address] [place] [address] PAT - Anesthesia 04/26/251945 MR#: [id number] Acct: [id number] Name: MODESTA COOK Rep #: [id number] : 1940 84 From: Atul Malloy MD PCP: Dr. 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 counselor Hx Hospitalization Yes: 08/2024 HERNIA REPAIR 04/26/25 [...] take am of surgery PONV PONV - automobile travel club counselor: PONV - automobile travel club counselor Female Yes 04/26/25 13:59 HX of Motion Sickness No 04/26/25 13:59 HX of N/V After Surgery No 04/26/25 13:59 Non-Smoker Yes 04/26/25 13:59 Duration of Surgery greater No 04/26/25 13:59 than 60 minutes Number of Risk Factors 2 04/26/25 13:59 PONV Score Moderate Risk 04/26/25 13:59 Height Weight Height Weight: Anesthesia: Height Weight Height 5 ft 03/22/25 15:36 Respiratory Assessment Respiratory Assessment - automobile travel club counselor: Respiratory Tract Infection Hx - automobile travel club counselor Hx Respiratory Tract Infection No 04/26/25 13:59 STOP Sleep Apnea STOP Sleep Apnea - automobile travel club counselor: STOP Sleep Apnea - automobile travel club counselor Hx Hypertension Yes: CONTROLLED WITH MEDS 04/26/25 [...] Tobacco Use History Tobacco Use History - automobile travel club counselor: Tobacco Use History - automobile travel club counselor Tobacco Use Smoking Status Never smoker 04/26/25 13:59 Hx Tobacco Use No 04/26/25 13:59 Years Smoking Packs Smoked per Day Smoking Cessation Date was within the last 15 years Hx Smoking Cessation Date Hx Smoking Cessation Counseling Hematologic Medial History Hematologic Hx - automobile travel club counselor: Hematologic Medical Hx - network support Hx of Blood Transfusion Yes 04/26/25 13:59 [...] confused, unrespo /Reproduction History /Reproductive History - automobile travel club counselor: /Reproductive Hx- automobile travel club counselor Hx Now Gestational Age (in weeks): EDC: Hx Hx Para Hx Section SAB No 04/26/25 13:59 [facility] Medical History (Updated 04/26/25 @ 14:04 by [...] symptoms 10 (more content not included)... Normal [facility] Gastroenterology Visit Repor ton 03-22-2025 Gastroenterology Visit Report [facility] Gastroenterology [address] [place] [address] OFFICE VISIT Date of Service: 03/22/25 MR#: [id number] Acct: [id number] Name: MODESTA COOK Rep #: [id number] : 1940 Provider: SWATI Rdz Age/Sex: 84/F Location: [facility] Status: Signed Intake Vital Signs 10/25/24 11:35 [...] trouble swallowing. Pt continues taking pantoprazole daily. [facility] Medical History Loss of hearing Wears glasses [...] itchy eyes, (more content not included)... Normal [facility] Internal Medicine Office Vis trista 01-10-2025 Internal Medicine Office Visit [facility] [address] [place] [address] [place] [address] OFFICE VISIT Date of Service: 01/10/25 MR#: [id number] Acct: [id number] Name: MODESTA COOK Rep #: [id number] : 1940 Provider: Dr. Coy cao, DO Age/Sex: 84/F Location: [facility] Status: Signed Intake Vital Signs 10/25/24 11:35 01/10/25 09:42 Height 5 ft 5 ft Weight: 137 lb BMI 26.7 BP 138/76 H Blood Pressure Location Lt brachial Position Sitting Respiration 18 Pulse 54 L Pulse Source Monitor Temp 97.8 F Temp Source Temporal Pulse Oximetry (%) 96 Oxygen Delivery Method room air Intake Visit Reasons: congestion/drainage Chief Complaint: congestion/drainage Cad Librarian Required: No Is patient in pain?: No [...] fallen in the past year?: Yes (x1) [facility] Medical History Loss of hearing Wears glasses [...] dyspnea o (more content not included)... Normal [facility] Gastroenterology Visit Repor ton 12-19-2024 Gastroenterology Visit Report [facility] Gastroenterology [address] [place] [address] OFFICE VISIT Date of Service: 12/19/24 MR#: [id number] Acct: [id number] Name: MODESTA COOK Rep #: [id number] : 1940 Provider: SWATI Rdz Age/Sex: 84/F [place] [facility] [place] Status: Signed Intake Vital Signs 10/25/24 11:35 [...] been getting better. Diarrhea is getting better. [facility] Medical History (Updated 12/19/24 @ 15:51 by [...] Positive for headache(s) (more content not included)... [facility] M7400.3302on 11-29-2024 M7400.3302 TESTING PERFORMED AT [facility]. ORIGINAL REPORT ON FILE IN LAB CONTAINS ADDITIONAL TEST SITE INFORMATION. Giardia Lamblia EIA NEGATIVE [facility] Comment on above: Performed By: #### L 3000.0375 #### [facility] [address] [place], [place], [address] Ova and Parasites 8623on OP OVA AND PARASITES EX AM, ROUTINE These results were obtained using wet preparation(s) and trichrome stained smear. This test does not include testing for Crytosporidium parvum, Cyclospora, or Microsporidia. One negative specimen does not rule out the possibility of a parasitic infection. TESTING PERFORMED AT [facility]. ORIGINAL REPORT ON FILE IN LAB CONTAINS ADDITIONAL TEST SITE INFORMATION. Ova/Parasite Exam NO OVA, CYSTS, OR PARASITES FOUND. [facility] Comment on above: Performed By: #### L 3000.0375 #### [facility] [address] [place], [address] Calprotectin, Stoolon [address] 408 ug/g Abnormal 0-120 [facility] Comment on above: Result Comment: Conc entration Interpretation Follow-Up < 5 - 50 ug/g Normal None >50 -120 ug/g Borderline Re-evaluate in 4-6 weeks >120 ug/g Abnormal Repeat as clinically indicated Performed at: [facility] [address] [id number] Aerospace Stress Engineer: Juan Manuel Henry MD, Phone: [phone] Performed By: #### L 3000.7489 #### [facility] [address] [place], [place], [address] Calprotectin stoolOrdered By : Bárbara Logan on 11-22-2024 Calprotectin stool 408 ug/g High 0-120 [facility] Comment on above: Concentration Interp retation Follow-Up< 5 - 50 ug/g Normal None>50 -120 ug/g Borderline Re-evaluate in 4-6 weeks >120 ug/g Abnormal Repeat as clinically indicatedPerformed at: [facility] [address] [id number] Director: Juan Manuel Henry MD, Phone: [phone] Stool Calprotectin 408 ug/g High 0-120 [facility] Comment on above: Concentration Interp retation Follow-Up< 5 - 50 ug/g Normal None>50 -120 ug/g Borderline Re-evaluate in 4-6 weeks >120 ug/g Abnormal Repeat as clinically indicatedPerformed at: [facility] [address] [id number] Director: Juan Manuel Henry MD, Phone: [phone] C. difficile DNA ROBY+probe Q l (Unsp spec)Ordered By: Bárbara Logan on 11-18-2024 Clostridioides difficile (PCR) [facility] CDIFF (PCR)on 11-18-2024 CDIFF Pending 027 027 NAP1-B1 Presumptive Negative *for epidemiolologic???use C. Diff PCR Negative- No toxigenic C. Diff Detected Normal [facility] Comment on above: Performed By: #### L 100.0100, L500.4050 #### [facility] [address] [place], [address] Clostridium difficile detect ion by polymerase chain reactionOrdered By: Bárbara Logan on 11-18-2024 C. difficile DNA ROBY+probe Ql (Unsp spec) [facility] Gastroenterology Visit Repor ton 11-17-2024 Gastroenterology Visit Report [facility] Gastroenterology [address] [place] [address] OFFICE VISIT Date of Service: 11/17/24 MR#: [id number] Acct: [id number] Name: MODESTA COOK Rep #: [id number] : 1940 Provider: SWATI Rdz Age/Sex: 84/F Location: [facility] Status: Signed Intake Vital Signs [...] 11.17.24 Pt here to establish care with [facility] and reports [facility] Medical History (Updated 11/17/24 @ 16:15 by [...] office today for establishment with [facility]. Pt with diarrhea for 3-4 [...] Appearance: average body habitus and well nourished [facility] Head: normal to inspection Ears: hearing grossly [...] evaluation of (more content not included)... Normal [facility] Absolute lymphocyte countOrd ered By: Coy Nath on 10-25-2024 Lymphocytes Auto (Unsp spec) [#/Vol] 2.72 10*3/uL 0.83-4.51 [facility] Absolute neutrophil countOrd ered By: Coyabelino Nath on 10-25-2024 Neutrophils (Bld) [#/Vol] 4.0 10*3/uL 2.0-7.7 [facility] Anion gap in Serum or Plasma Ordered By: Coy Nath on 10-25-2024 Anion gap [Moles/Vol] 10 mmol/L 5-15 [facility] Automated lymphocyte count a s percentage of total leukocytesOrdered By: Coy Nath on 10-25-2024 Lymphocytes/100 WBC Auto (Unsp spec) 34.4 % 19-41 [facility] BUN/creatinine ratioOrdered By: Coyabelino Nath on 10-25-2024 Urea nitrogen/Creatinine [Mass ratio] 35.9 mg/mg High 10-20 [facility] Basophil percentageOrdered B y: Coy Nath on 10-25-2024 Basophils/100 WBC (Bld) 0.6 % 0- [facility] Bilirubin, totalOrdered By: Coyabelino Nath on 10-25-2024 Bilirubin [Mass/Vol] 0.48 mg/dL 0.00-1.30 [facility] CBC W/Diff, Automatedon 10-14 Absolute Lymph 2.72 X10 3/uL Normal 0.83-4.51 [facility] Comment on above: Performed By: #### L 100.0100, L500.4050 #### [facility] [address] [place], [address] Absolute Neut 4.0 X10 3/uL Normal 2.0-7.7 [facility] Comment on above: Performed By: #### L 100.0100, L500.4050 #### [facility] [address] [place], [address] Basophils/100 WBC (Bld) 0.6 % Normal 0-1 [facility] Comment on above: Performed By: #### L 100.0100, L500.4050 #### [facility] [address] [place], [address] Eosinophils/100 WBC (Bld) 1.1 % Normal 0-5 [facility] Comment on above: Performed By: #### L 100.0100, L500.4050 #### [facility] [address] [place], [address] Erythrocyte distribution width (RBC) [Ratio] 13.0 % Normal 11.6-14.6 [facility] Comment on above: Performed By: #### L 100.0100, L500.4050 #### [facility] [address] [place], [address] Hematocrit (Bld) [Volume fraction] 37.8 % Normal 37-47 [facility] Comment on above: Performed By: #### L 100.0100, L500.4050 #### [facility] [address] [place], [address] Hemoglobin (Bld) [Mass/Vol] 12.6 g/dL Normal 12.0-15.0 [facility] Comment on above: Performed By: #### L 100.0100, L500.4050 #### [facility] [address] [place], [address] IG% 0.300 Normal 0.0-0.9 [facility] Comment on above: Result Comment: IG% - Immature Granulocytes (promyelocytes, myelocytes and metamyelocytes) > 1% indicates that a LEFT SHIFT is Present. Performed By: #### L 100.0100, L500.4050 #### [facility] [address] [place], [address] Lymphocytes/100 WBC (Bld) 34.4 % Normal 19-41 [facility] Comment on above: Performed By: #### L 100.0100, L500.4050 #### [facility] [address] [place], [address] MCH (RBC) [Entitic mass] 30.5 pg Normal 27.0-32.0 [facility] Comment on above: Performed By: #### L 100.0100, L500.4050 #### [facility] [address] [place], [address] MCHC (RBC) [Mass/Vol] 33.3 g/dL Normal 32-36 [facility] Comment on above: Performed By: #### L 100.0100, L500.4050 #### [facility] [address] [place], [address] MCV (RBC) [Entitic vol] 91.5 fL Normal 81-99 [facility] Comment on above: Performed By: #### L 100.0100, L500.4050 #### [facility] [address] [place], [address] Monocytes/100 WBC (Bld) 13.3 % High 0-10 [facility] Comment on above: Performed By: #### L 100.0100, L500.4050 #### [facility] [address] [place], [address] Neutrophils/100 WBC (Bld) 50.3 % Normal 47-70 [facility] Comment on above: Performed By: #### L 100.0100, L500.4050 #### [facility] [address] [place], [address] Nucleated RBC (Bld) [#/Vol] 0 10*3/uL Normal 0-5 [facility] Comment on above: Performed By: #### L 100.0100, L500.4050 #### [facility] [address] [place], [address] Platelet mean volume (Bld) [Entitic vol] 9.4 fL Normal 6.2-12.0 [facility] Comment on above: Performed By: #### L 100.0100, L500.4050 #### [facility] [address] [place], [address] Platelets (Bld) [#/Vol] 372 10*3/uL Normal 150-450 [facility] Comment on above: Performed By: #### L 100.0100, L500.4050 #### [facility] [address] [place], [address] RBC (Bld) [#/Vol] 4.13 10*6/uL Low 4.2-5.4 [facility] Comment on above: Performed By: #### L 100.0100, L500.4050 #### [facility] [address] [place], [address] RDW SD 43.6 fl Normal 35.1-43.9 [facility] Comment on above: Performed By: #### L 100.0100, L500.4050 #### [facility] [address] [place], [address] WBC (Bld) [#/Vol] 7.9 10*3/uL Normal 4.4-11.0 [facility] Comment on above: Performed By: #### L 100.0100, L500.4050 #### [facility] [address] [place], [address] Carbon dioxide, total [Moles /volume] in Central venous bloodOrdered By: Coy Nath on 10-25-2024 CO2 [Moles/Vol] 22.4 mmol/L 21.0-32.0 [facility] Chloride assayOrdered By: Do ryland Nath on 10-25-2024 Chloride [Moles/Vol] 96 mmol/L Low 98-108 [facility] Comprehensive Metabolic Prof ilon 10-25-2024 Albumin [Mass/Vol] 3.5 g/dL Normal 3.4-4.8 [facility] Comment on above: Performed By: #### L 100.0100, L500.4050 #### [facility] [address] [place], [address] Albumin/Globulin [Mass ratio] 0.9 {ratio} Normal 0.9-2.4 [facility] Comment on above: Performed By: #### L 100.0100, L500.4050 #### [facility] [address] [place], [address] ALK PHOS 78 U/L Normal 35-104 [facility] Comment on above: Performed By: #### L 100.0100, L500.4050 #### [facility] [address] [place], [address] ALT [Catalytic activity/Vol] 98 U/L High <=34 [facility] Comment on above: Performed By: #### L 100.0100, L500.4050 #### [facility] [address] [place], [address] AST [Catalytic activity/Vol] 90 U/L High <=31 [facility] Comment on above: Performed By: #### L 100.0100, L500.4050 #### [facility] [address] [place], [address] Bilirubin [Mass/Vol] 0.48 mg/dL Normal 0.00-1.30 [facility] Comment on above: Performed By: #### L 100.0100, L500.4050 #### [facility] [address] [place], [address] BUN/CRE 35.9 RATIO High 10-20 [facility] Comment on above: Performed By: #### L 100.0100, L500.4050 #### [facility] [address] [place], [address] Calcium [Mass/Vol] 9.5 mg/dL Normal 7.6-11.0 [facility] Comment on above: Performed By: #### L 100.0100, L500.4050 #### [facility] [address] [place], [address] Chloride [Moles/Vol] 96 mmol/L Low 98-108 [facility] Comment on above: Performed By: #### L 100.0100, L500.4050 #### [facility] [address] [place], [address] CO2 [Moles/Vol] 22.4 mmol/L Normal 21.0-32.0 [facility] Comment on above: Performed By: #### L 100.0100, L500.4050 #### [facility] [address] [place], [address] Creatinine [Mass/Vol] 0.72 mg/dL Normal 0.70-1.20 [facility] Comment on above: Performed By: #### L 100.0100, L500.4050 #### [facility] [address] [place], [address] GAP 10 Normal 5-15 [facility] Comment on above: Performed By: #### L 100.0100, L500.4050 #### [facility] [address] [place], [address] GFR/1.73 sq M.predicted among non-blacks MDRD (S/P/Bld) [Vol rate/Area] 82 mL/min/{1.73_m2} Normal >60 [facility] Comment on above: Result Comment: mL/m in/1.73m2 CKD-EPI Creatinine Equation (2020) Performed By: #### L 100.0100, L500.4050 #### [facility] [address] [place], [address] Globulin (S) [Mass/Vol] 3.9 g/dL Normal 2.2-4.2 [facility] Comment on above: Performed By: #### L 100.0100, L500.4050 #### [facility] [address] [place], [address] Glucose [Mass/Vol] 96 mg/dL Normal 70-99 [facility] Comment on above: Performed By: #### L 100.0100, L500.4050 #### [facility] [address] [place], [address] Potassium [Moles/Vol] 5.0 mmol/L Normal 3.3-5.1 [facility] Comment on above: Performed By: #### L 100.0100, L500.4050 #### [facility] [address] [place], [address] Sodium [Moles/Vol] 129 mmol/L Low 133-145 [facility] Comment on above: Performed By: #### L 100.0100, L500.4050 #### [facility] [address] [place], [address] T PROT 7.4 g/dL Normal 5.9-8.4 [facility] Comment on above: Performed By: #### L 100.0100, L500.4050 #### [facility] [address] [place], [address] Urea nitrogen [Mass/Vol] 26 mg/dL High 4-19 [facility] Comment on above: Performed By: #### L 100.0100, L500.4050 #### [facility] [address] [place], [place], [id number] Eosinophil percentageOrdered By: Coy Nath on 10-25-2024 Eosinophils/100 WBC (Bld) 1.1 % 0-5 [facility] Erythrocyte distribution wid th ratioOrdered By: Coy Nath on 10-25-2024 Erythrocyte distribution width (RBC) [Ratio] 13.0 % 11.6-14.6 [facility] Erythrocyte distribution wid th standard deviationOrdered By: Coy Nath on 10-25-2024 Erythrocyte distribution width (RBC) [Entitic vol] 43.6 fL 35.1-43.9 [facility] Erythrocyte distribution width (RBC) [Ratio] 43.6 fl 35.1-43.9 [facility] GFR/1.73 sq M.predicted hernan g non-blacks MDRD (S/P/Bld) [Vol rate/Area]Ordered By: Coy Nath on 10-25-2024 Estimated GFR (MDRD) Non-Af Amer 82 >60 [facility] Comment on above: mL/min/1.73m2 CKD-EP I Creatinine Equation (2020) Glomerular filtration rate ( GFR) estimation/1.73 sq m using serum, plasma, or whole bOrdered By: Coy Nath on 10-25-2024 GFR/1.73 sq M.predicted among non-blacks MDRD (S/P/Bld) [Vol rate/Area] 82 mL/min/{1.73_m2} >60 [facility] Comment on above: mL/min/1.73m2 CKD-EP I Creatinine Equation (2020) Hematocrit Auto (Bld) [Volum e fraction]Ordered By: Coy Nath on 10-25-2024 Hematocrit (Bld) [Volume fraction] 37.8 % 37-47 [facility] Hemoglobin measurementOrdere d By: Coy Nath on 10-25-2024 Hemoglobin (Bld) [Mass/Vol] 12.6 g/dL 12.0-15.0 [facility] Immature granulocytes/100 WB C Auto (Bld)Ordered By: Coy Nath on 10-25-2024 Immature granulocytes/100 WBC (Bld) 0.300 % 0.0-0.9 [facility] Comment on above: IG% - Immature Granu locytes (promyelocytes, myelocytes and metamyelocytes) > 1% indicates that a LEFT SHIFT is Present. Internal Medicine Office Vis itokhadar 10-25-2024 Internal Medicine Office Visit [facility] [address] [place], [place] [address] OFFICE VISIT Date of Service: 10/25/24 MR#: [id number] Acct: [id number] Name: MODESTA COOK Rep #: [id number] : 1940 Provider: Dr. Coy cao, DO Age/Sex: 84/F Location: [facility] Status: Signed Intake Vital Signs 04/26/24 11:37 [...] Reasons: 6 M FU Chief Complaint: cough Cad Librarian Required: No Accompanied by: Self Is patient [...] past year?: No Nurse's Note: needs refills [facility] Medical History Loss of hearing Wears glasses [...] pain at (more content not included)... Normal [facility] Laboratory - Chemistry and C hemistry - challengeOrdered By: Coy Nath on 10-25-2024 AST [Catalytic activity/Vol] 90 U/L High <32 [facility] Lymphocytes Auto (Unsp spec) [#/Vol]Ordered By: Coy Nath on 10-25-2024 Lymphocytes (Bld) [#/Vol] 2.72 10*3/uL 0.83-4.51 [facility] Lymphocytes/100 WBC Auto (Un sp spec)Ordered By: Coy Nath on 10-25-2024 Lymphocytes/100 WBC (Bld) 34.4 % 19-41 [facility] MCV (mean corpuscular volume ) determinationOrdered By: Coy Nath on 10-25-2024 MCV (RBC) [Entitic vol] 91.5 fL 81-99 [facility] Mean corpuscular hemoglobin (MCH) determinationOrdered By: Coy Nath on 10-25-2024 MCH (RBC) [Entitic mass] 30.5 pg 27.0-32.0 [facility] Mean corpuscular hemoglobin concentration (MCHC) determinationOrdered By: Coy Nath on 10-25-2024 MCHC (RBC) [Mass/Vol] 33.3 g/dL 32-36 [facility] Mean platelet volume determi nationOrdered By: Coy Nath on 10-25-2024 Platelet mean volume (Bld) [Entitic vol] 9.4 fL 6.2-12.0 [facility] Monocyte percentageOrdered B y: Coy Nath on 10-25-2024 Monocytes/100 WBC (Bld) 13.3 % High 0-10 [facility] Neutrophil percentageOrdered By: Coy Nath on 10-25-2024 Neutrophils/100 WBC (Bld) 50.3 % 47-70 [facility] Nucleated red blood cell per centageOrdered By: Coy Nath on 10-25-2024 Nucleated RBC/100 WBC (Bld) [Ratio] 0 % 0-5 [facility] Platelet countOrdered By: Do ryland Nath on 10-25-2024 Platelets (Bld) [#/Vol] 372 10*3/uL 150-450 [facility] Potassium (Unsp spec) [Mass/ Vol]Ordered By: Coy Nath on 10-25-2024 Potassium [Moles/Vol] 5.0 mmol/L 3.3-5.1 [facility] Potassium measurement (mass/ volume)Ordered By: Coy Nath on 10-25-2024 Potassium (Unsp spec) [Mass/Vol] 5.0 mmol/L 3.3-5.1 [facility] RBC Auto (Bld) [#/Vol]Ordere d By: Coy Nath on 10-25-2024 RBC (Bld) [#/Vol] 4.13 10*6/uL Low 4.2-5.4 [facility] Serum creatinine measurement (mass/volume)Ordered By: Coy Nath on 10-25-2024 Creatinine [Mass/Vol] 0.72 mg/dL 0.70-1.20 [facility] Serum globulin measurementOr dered By: Coy Nath on 10-25-2024 Globulin (S) [Mass/Vol] 3.9 g/dL 2.2-4.2 [facility] Serum glucose measurement (m ass/volume)Ordered By: Coy Nath on 10-25-2024 Glucose [Mass/Vol] 96 mg/dL 70-99 [facility] Serum or plasma alanine morgan otransferase (ALT) measurementOrdered By: Coy Nath on 10-25-2024 ALT [Catalytic activity/Vol] 98 U/L High <35 [facility] Serum or plasma albumin parag urement (mass/volume)Ordered By: Coy Nath on 10-25-2024 Albumin [Mass/Vol] 3.5 g/dL 3.4-4.8 [facility] Serum or plasma albumin/glob ulin mass ratioOrdered By: Coy Nath on 10-25-2024 Albumin/Globulin [Mass ratio] 0.9 {ratio} 0.9-2.4 [facility] Serum or plasma alkaline sole sphatase measurementOrdered By: Coy Nath on 10-25-2024 ALP [Catalytic activity/Vol] 78 U/L 35-104 [facility] Serum or plasma calcium parag urement (mass/volume)Ordered By: Coy Nath on 10-25-2024 Calcium [Mass/Vol] 9.5 mg/dL 7.6-11.0 [facility] Serum or plasma urea nitroge n measurement (mass/volume)Ordered By: Coy Nath on 10-25-2024 Urea nitrogen [Mass/Vol] 26 mg/dL High 4-19 [facility] Sodium levelOrdered By: Lexx Nath on 10-25-2024 Sodium [Moles/Vol] 129 mmol/L Low 133-145 [facility] Total proteinOrdered By: Jenna Nath on 10-25-2024 Protein [Mass/Vol] 7.4 g/dL 5.9-8.4 [facility] White blood cell (WBC) count Ordered By: Coy Nath on 10-25-2024 WBC (Bld) [#/Vol] 7.9 10*3/uL 4.4-11.0 [facility] Influenza virus A and B and SARS-CoV-2 (COVID-19) and Respiratory syncytial virus RNAOrdered By: Coy Nath on 10-11-2024 SARS-CoV-2 (COVID-19) RNA ROBY+probe Ql (Unsp spec) Influenzae A Abnormal [facility] Internal Medicine Office Vis iton 10-11-2024 Internal Medicine Office Visit [facility] [address] [place] [address] [place] [address] OFFICE VISIT Date of Service: 10/11/24 MR#: [id number] Acct: [id number] Name: MODESTA COOK Rep #: [id number] : 1940 Provider: Dr. Coy Cross own, DO Age/Sex: 84/F Location: [facility] Status: Signed Intake Vital Signs 08/28/24 19:45 [...] weeks. pt states that she had a "bad sinus infection a few weeks ago that settled into her chest" but reports that it resolved pt states that a few days ago "it came back as a cough and headache" [facility] History Loss of hearing Wears glasses [...] appetite Eyes (more content not included)... Normal [facility] M100.678on 10-11-2024 M100.678 Results called on 10/11/24-1546 by SONYA to (LEFT [place]) [phone]. Normal Reference Range = Negative GeneXpert Instrument, PCR method FLUABV+SARS-CoV-2+RSV Pnl Resp ROBY+probe Copy of report sent to Infection Control Printer [id number] 10/11/24 3740 BLUCAS. SARS-CoV-2 (COVID 19) Negative INFLUENZA A A Positive A INFLUENZA B Negative RSV PCR Negative INFLUENZAE A Normal [facility] Comment on above: Performed By: #### L 100.0100, L500.4050 #### [facility] Laboratory [address] [place], [place], [id number] Surgery Visit Reporton 10-[address] [facility] [address] [place] [address] OFFICE VISIT Date of Service: 10/05/24 MR#: [id number] Acct: [id number] Name: MODESTA COOK Rep #: [id number] : 1940 Provider: Dr. Emily quinteros MD Age/Sex: 84/F Location: [facility] Status: Signed Intake Vital Signs 08/28/24 19:45 [...] patient states that her last scope was "years ago". When pressed for more accurate timeframe she and her daughter are able to reply that it was shortly after [facility] 2001. They note that this colonoscopy was completed [facility]. Patient states that she initially was [...] R19.7 P (more content not included)... Normal [facility] ENTERIC PATHOGEN PANEL STOOL on 09-19-2024 EP PANEL Normal Reference Ran ge = [...] VIBRIO Not Detected Yersinia Not Detected Normal [facility] Comment on above: Performed By: #### M 100.637, M100.7900, M100.0605 ####[facility] [address] [place], [address] Lactoferrin IA Ql (Stl)Order ed By: Nandini Grant on 09-18-2024 Stool Lactoferrin [facility] Lower GI hemoglobin IA Ql (S tl)Ordered By: Nandini Grant on 09-18-2024 Stool Occult Blood (GALA) [facility] Stool Lactoferrin/WBCon 02-0 WBCST Normal Reference Ran ge = Negative Fecal WBC Lactoferrin A Positive: Fecal WBC Lactoferrin present A Normal [facility] Comment on above: Performed By: #### M 100.637, M100.7900, M100.0605 ####[facility] [address] [place], [address] Stool Occult Blood iFOBon STOB Negative Normal [facility] Comment on above: Performed By: #### M 100.637, M100.7900, M100.0605 ####[facility] [address] [place], [address] Stool enteric pathogen panel by probe and target amplification methodOrdered By: Nandini Grant on 09-18-2024 Enteric Bacteriology [facility] Stool gastrointestinal hemog lobin detection by immunologic methodOrdered By: Nandini Grant on 09-18-2024 Lower GI hemoglobin IA Ql (Stl) [facility] Stool lactoferrin detection by immunoassayOrdered By: Nandini Grant on 09-18-2024 Lactoferrin IA Ql (Stl) [facility] Surgery Visit Reporton 09-06 Surgery Visit Report [facility] [address] [place] [address] OFFICE VISIT Date of Service: 09/06/24 MR#: [id number] Acct: [id number] Name: MODESTA COOK Rep #: [id number] : 1940 Provider: MIK gates Age/Sex: 84/F Location: [facility] Status: Signed Intake Vital Signs 08/28/24 19:45 Height 5 ft 1.02 in Intake Visit Reasons: VENTRAL HERNIA DOS 08/28 Chief Complaint: spigelian hernia Cad Librarian Required: No Is patient in pain?: No [...] S/P spigelian hernia repair, follow-up exam Z09 [facility] Medical History (Updated 09/06/24 @ 14:34 by Nandini LONGORIA PA-C) Loss of hearing Wears glasses Wears [...] History (Updated 09/07/24 @ 15:07 by Nandini LONGORIA PA-C) S/P spigelian hernia repair, follow-up exam [...] Nath, DO; Dr. Emily Madrigal MD Normal [facility] Absolute neutrophil countOrd ered By: Emily Madrigal on 08-29-2024 Neutrophils (Bld) [#/Vol] 13.3 10*3/uL High 2.0-7.7 [facility] Basophil percentageOrdered B y: Emily Madrigal on 08-29-2024 Basophils/100 WBC (Bld) 0.2 % 0-1 [facility] CBC W/Diff, Automatedon 08-16 Absolute Lymph 2.13 X10 3/uL Normal 0.83-4.51 [facility] Comment on above: Performed By: #### L 100.0100 ####[facility] [address] [place], [address] Absolute Neut 13.3 X10 3/uL High 2.0-7.7 [facility] Comment on above: Performed By: #### L 100.0100 ####[facility] [address] [place], [address] Basophils/100 WBC (Bld) 0.2 % Normal 0-1 [facility] Comment on above: Performed By: #### L 100.0100 ####[facility] [address] [place], [address] Eosinophils/100 WBC (Bld) 0.0 % Normal 0-5 [facility] Comment on above: Performed By: #### L 100.0100 ####[facility] [address] [place], [address] Erythrocyte distribution width (RBC) [Ratio] 13.9 % Normal 11.6-14.6 [facility] Comment on above: Performed By: #### L 100.0100 ####[facility] [address] [place], [address] Hematocrit (Bld) [Volume fraction] 32.7 % Low 37-47 [facility] Comment on above: Performed By: #### L 100.0100 ####[facility] [address] [place], [address] Hemoglobin (Bld) [Mass/Vol] 10.9 g/dL Low 12.0-15.0 [facility] Comment on above: Performed By: #### L 100.0100 ####[facility] [address] [place], [address] IG% 0.600 Normal 0.0-0.9 [facility] Comment on above: Result Comment: IG% - Immature Granulocytes (promyelocytes, myelocytes and metamyelocytes) > 1% indicates that a LEFT SHIFT is Present. Performed By: #### L 100.0100 ####[facility] [address] [place], [address] Lymphocytes/100 WBC (Bld) 13.1 % Low 19-41 [facility] Comment on above: Performed By: #### L 100.0100 ####[facility] [address] [place], [address] MCH (RBC) [Entitic mass] 30.1 pg Normal 27.0-32.0 [facility] Comment on above: Performed By: #### L 100.0100 ####[facility] [address] [place], [address] MCHC (RBC) [Mass/Vol] 33.3 g/dL Normal 32-36 [facility] Comment on above: Performed By: #### L 100.0100 ####[facility] [address] [place], [address] MCV (RBC) [Entitic vol] 90.3 fL Normal 81-99 [facility] Comment on above: Performed By: #### L 100.0100 ####[facility] [address] [place], [address] Monocytes/100 WBC (Bld) 4.7 % Normal 0-10 [facility] Comment on above: Performed By: #### L 100.0100 ####[facility] [address] [place], [address] Neutrophils/100 WBC (Bld) 81.4 % High 47-70 [facility] Comment on above: Performed By: #### L 100.0100 ####[facility] [address] [place], [address] Nucleated RBC (Bld) [#/Vol] 0 10*3/uL Normal 0-5 [facility] Comment on above: Performed By: #### L 100.0100 ####[facility] [address] [place], [address] Platelet mean volume (Bld) [Entitic vol] 9.2 fL Normal 6.2-12.0 [facility] Comment on above: Performed By: #### L 100.0100 ####[facility] [address] [place], [address] Platelets (Bld) [#/Vol] 289 10*3/uL Normal 150-450 [facility] Comment on above: Performed By: #### L 100.0100 ####[facility] [address] [place], [address] RBC (Bld) [#/Vol] 3.62 10*6/uL Low 4.2-5.4 [facility] Comment on above: Performed By: #### L 100.0100 ####[facility] [address] [place], [address] RDW SD 45.9 fl High 35.1-43.9 [facility] Comment on above: Performed By: #### L 100.0100 ####[facility] [address] [place], [address] WBC (Bld) [#/Vol] 16.3 10*3/uL High 4.4-11.0 [facility] Comment on above: Performed By: #### L 100.0100 ####[facility] [address] [place], [address] Eosinophil percentageOrdered By: Emily Madrigal on 08-29-2024 Eosinophils/100 WBC (Bld) 0.0 % 0-5 [facility] Erythrocyte distribution wid th ratioOrdered By: Emily Madrigal on 08-29-2024 Erythrocyte distribution width (RBC) [Ratio] 13.9 % 11.6-14.6 [facility] Erythrocyte distribution wid th standard deviationOrdered By: Emily Madrigal on 08-29-2024 Erythrocyte distribution width (RBC) [Entitic vol] 45.9 fL High 35.1-43.9 [facility] Hematocrit Auto (Bld) [Volum e fraction]Ordered By: Emily Madrigal on 08-29-2024 Hematocrit (Bld) [Volume fraction] 32.7 % Low 37-47 [facility] Hemoglobin measurementOrdere d By: Emily Madrigal on 08-29-2024 Hemoglobin (Bld) [Mass/Vol] 10.9 g/dL Low 12.0-15.0 [facility] Immature granulocytes/100 WB C Auto (Bld)Ordered By: Emily Madrigal on 08-29-2024 Immature granulocytes/100 WBC (Bld) 0.600 % 0.0-0.9 [facility] Comment on above: IG% - Immature Granu locytes (promyelocytes, myelocytes and metamyelocytes) > 1% indicates that a LEFT SHIFT is Present. Lymphocytes Auto (Unsp spec) [#/Vol]Ordered By: Emily Madrigal on 08-29-2024 Lymphocytes (Bld) [#/Vol] 2.13 10*3/uL 0.83-4.51 [facility] Lymphocytes/100 WBC Auto (Un sp spec)Ordered By: Emily Madrigal on 08-29-2024 Lymphocytes/100 WBC (Bld) 13.1 % Low 19-41 [facility] MCV (mean corpuscular volume ) determinationOrdered By: Emily Madrigal on 08-29-2024 MCV (RBC) [Entitic vol] 90.3 fL 81-99 [facility] Mean corpuscular hemoglobin (MCH) determinationOrdered By: Emily Madrigal on 08-29-2024 MCH (RBC) [Entitic mass] 30.1 pg 27.0-32.0 [facility] Mean corpuscular hemoglobin concentration (MCHC) determinationOrdered By: Emily Madrigal on 08-29-2024 MCHC (RBC) [Mass/Vol] 33.3 g/dL 32-36 [facility] Mean platelet volume determi nationOrdered By: Emily Madrigal on 08-29-2024 Platelet mean volume (Bld) [Entitic vol] 9.2 fL 6.2-12.0 [facility] Monocyte percentageOrdered B y: Emily Madrigal on 08-29-2024 Monocytes/100 WBC (Bld) 4.7 % 0-10 [facility] Neutrophil percentageOrdered By: Emily Madrigal on 08-29-2024 Neutrophils/100 WBC (Bld) 81.4 % High 47-70 [facility] Nucleated red blood cell per centageOrdered By: Emily Madrigal on 08-29-2024 Nucleated RBC/100 WBC (Bld) [Ratio] 0 % 0-5 [facility] Platelet countOrdered By: Rosy Madrigal on 08-29-2024 Platelets (Bld) [#/Vol] 289 10*3/uL 150-450 [facility] RBC Auto (Bld) [#/Vol]Ordere d By: Emily Madrigal on 08-29-2024 RBC (Bld) [#/Vol] 3.62 10*6/uL Low 4.2-5.4 [facility] White blood cell (WBC) count Ordered By: Emily Madrigal on 08-29-2024 WBC (Bld) [#/Vol] 16.3 10*3/uL High 4.4-11.0 [facility] Discharge Instructionon 08-16 Discharge Instruction [facility] Medical Records Department [address] [place] [address] Instructions for Home/Discharge Instructions 08/28/24 1343 MR#: [id number] Acct: [id number] Name: MODESTA COOK Rep #: [id number] : 1940 84 From: Emily Madrigal MD [...] medications, I would recommend transitioning to these clyy-bxp-hpivocu medicines as soon as possible instead of continued use of narcotic pain medication. Follow up ??? You should call [facility] soon after surgery, at [phone] option 2 to make a follow up [...] can be placed): Home, Self Care 08/29/24 0280 Emily Madrigal MD CC: Dr. Coy Nath DO Signed Normal [facility] MR/POSTOP.[facility] 08-28-2024 MR/POSTOP.[facility] Medical Records Department [address] [place] [address] Anesthesia Postop Eval I 08/28/24 1445 MR#: [id number] Acct: [id number] Name: MODESTA COOK Rep #: [id number] : 1940 84 From: Candido Echevarria MD PCP: Dr. Coy Nath DO Status:REG SDC Y Race: C Location: [place] [address]- Anesthesia: Postop Eval I Current Vital Signs [...] Anesthesia document: Postop Eval 1 completed: Yes 08/28/241446 Date Candido Echevarria MD Cosigner Signature: Date CC: Signed Normal [facility] MR/XOXSRZOX1vn 08-28-2024 [facility] Medical Records Department [address] [place] [address] Anesthesia Postop Eval II 08/28/241446 MR#: [id number] Acct: [id number] Name: CLEMENTMODESTA Ofelia Rep #: [id number] : 1940 84 From: Candido Echevarria MD PCP: Dr. Coy Nath, DO Status:REG SDC Y Race: C Location: [place] [address] Anesthesia Postop Eval I Sum Postop Eval [...] No Vomiting: No 08/28/24 1447 Date Candido Mittal Signature: Date CC: Signed Normal [facility] Operative Reporton [address] [facility] Medical Records Department [address] [place] [address] Operative Report 08/28/24 1326 MR#: [id number] Acct: [id number] Name: MODESTA COOK Rep #: [id number] : 1940 84 From: Emily Madrigal MD PCP: Dr. 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 Unfortunately I was unable to achieve both [...] adhesion between (more content not included)... Normal [facility] MR/PATDejaMEAGANon 08-24-2024 MR/PAT.[facility] Medical Records Department [address] [place] [address] PAT - Anesthesia 08/24/24 1335 MR#: [id number] Acct: [id number] Name: MODESTA COOK Rep #: [id number] : 1940 84 From: Candido Echevarria MD PCP: Dr. Coy Nath, DO Status:PRE [facility] Y Race: C Location[place] [facility] Pre-Assessment Diagnosis/Proposed Procedure Planned Operative Procedure(s): ROBOTIC VENTRAL HERNIA REPAIR WITH MESH Anesthesia History Anesthesia History - automobile travel club counselor: Anesthesia History - automobile travel club counselor Hx Hospitalization Yes: 06/202408/17/24 13:14 Any Problems [...] take am of surgery PONV PONV - automobile travel club counselor: PONV - automobile travel club counselor Female Yes 08/17/24 13:14 HX of Motion [...] 07/04/24 14:58 Respiratory Assessment Respiratory Assessment - automobile travel club counselor: Respiratory Tract Infection Hx - automobile travel club counselor Hx Respiratory Tract Infection Yes: SINUS INFECTION/TREATED 08/17/24 13:14 /RESOLVED STOP Sleep Apnea STOP Sleep Apnea - automobile travel club counselor: STOP Sleep Apnea - automobile travel club counselor Hx Hypertension Yes: CONTROLLED WITH MEDS 08/17/24 [...] Tobacco Use History Tobacco Use History - automobile travel club counselor: Tobacco Use History - automobile travel club counselor Tobacco Use Smoking Status Never smoker 08/17/24 13:14 Hx Tobacco Use No 08/17/24 13:14 Years Smoking Packs Smoked per Day Smoking Cessation Date was within the last 15 years Hx Smoking Cessation Date Hx Smoking Cessation Counseling Hematologic Medial History Hematologic Hx - automobile travel club counselor: Hematologic Medical Hx - network support Hx of Blood Transfusion Yes 08/17/24 13:14 [...] confused, unrespo /Reproduction History /Reproductive History - automobile travel club counselor: /Reproductive Hx- automobile travel club counselor Hx Now No 08/17/24 13:14 Gestational Age (in weeks): EDC: Hx Hx Para Hx Section SAB No 08/17/24 13:14 [facility] Medical History (Updated 08/17/24 @ 13:34 by [...] History releas (more content not included)... Normal [facility] MRSA/SAID NASAL SCREENon MRSA+SAID SCRN Reason for Exam: PRE OP MRSA MRSA Negative S. AUREUS S. aureus PositiveA Normal [facility] Comment on above: Performed By: #### L 3000.0375 #### [facility] Laboratory [address] [facility] [place], [address] 12 Lead EKGon 08-22-2024 12 Lead EKG [facility] Cardi[facility] Services [address] [place] [address] 12 Lead EKG 08/22/24 1325 MR#: [id number] Acct: [id number] Name: MODESTA COOK Rep #: [id number] : 1940 84 From: Emily Leyva MD Attending Dr: Dr. Emily Madrigal MD Status: PRE [facility] Ordering Dr: Candido Echevarria MD Date: 08/22/24 Location: [facility] Sex: F C Admitted: Test Reason : PRE OP Blood Pressure : */* mmHG Vent. Rate : 53 BPM Atrial Rate : 53 BPM P-R Int : 206 ms QRS Dur : 92 ms QT Int : 422 ms P-R-T Axes : 67 61 64 degrees QTcB Int : 395 ms Sinus bradycardia with sinus arrhythmia Otherwise normal ECG Confirmed by Emily Leyva ([id number]), restaurant expeditor AFSANEH HERNANDEZ ([id number]) on 08/23/2024 7:18:03 AM Referred By: Emily Madrigal Confirmed By: Emily Leyva 08/23/24717 Date Emily Leyva MD CC: Dr. Candido Echevarria MD; Dr. Coy Nath DO; Dr. Emily Madrigal MD Signed Normal [facility] Basic Metabolic Profile (BMP )on 08-22-2024 BUN/CRE 31.2 RATIO High 10-20 [facility] Comment on above: Performed By: #### L 500.2500, L100.0500 ####[facility] [address] [place], [address] CA,Total 8.8 mg/dL Normal 8.5-10.1 [facility] Comment on above: Performed By: #### L 500.2500, L100.0500 ####[facility] [address] [place], [address] Chloride [Moles/Vol] 101 mmol/L Normal 98-107 [facility] Comment on above: Performed By: #### L 500.2500, L100.0500 ####[facility] [address] [place], [address] CO2 [Moles/Vol] 25.0 mmol/L Normal 21.0-32.0 [facility] Comment on above: Performed By: #### L 500.2500, L100.0500 ####[facility] [address] [place], [address] Creatinine [Mass/Vol] 0.80 mg/dL Normal 0.55-1.02 [facility] Comment on above: Result Comment: The validity of the calculated GFR GFRAA in patients over 70 years has not been determined. Clinical correlation is essential. Performed By: #### L 500.2500, L100.0500 ####[facility] [address] [place], [address] EST GFR - AA 87 mL/min Normal >60 [facility] Comment on above: Result Comment: Afri can Danish GFR Calc Performed By: #### L 500.2500, L100.0500 ####[facility] [address] [place], [address] GAP 5 Normal 5-15 [facility] Comment on above: Performed By: #### L 500.2500, L100.0500 ####[facility] [address] [place], [address] GFR/1.73 sq M.predicted among non-blacks MDRD (S/P/Bld) [Vol rate/Area] 72 mL/min/{1.73_m2} Normal >60 [facility] Comment on above: Result Comment: Non- GFR Calc Performed By: #### L 500.2500, L100.0500 ####[facility] [address] [place], [address] Glucose [Mass/Vol] 107 mg/dL High 74-106 [facility] Comment on above: Result Comment: Fast ing Glucose result from 100 to 125 mg/dL suggests IMPAIRED HOMEOSTASIS per A.D.A. criteria. Performed By: #### L 500.2500, L100.0500 ####[facility] [address] [place], [address] Potassium [Moles/Vol] 4.6 mmol/L Normal 3.5-5.1 [facility] Comment on above: Performed By: #### L 500.2500, L100.0500 ####[facility] [address] [place], [address] Sodium [Moles/Vol] 131 mmol/L Low 136-145 [facility] Comment on above: Performed By: #### L 500.2500, L100.0500 ####[facility] [address] [place], [address] Urea nitrogen [Mass/Vol] 25 mg/dL High 7-18 [facility] Comment on above: Performed By: #### L 500.2500, L100.0500 ####[facility] [address] [place], [address] Blood urea nitrogen (BUN)/cr eatinine ratioOrdered By: Candido Echevarria on 08-22-2024 Urea nitrogen/Creatinine [Mass ratio] 31.2 mg/mg High 10-20 [facility] CBC-Complete Blood Cnt No Di ffon 08-22-2024 Erythrocyte distribution width (RBC) [Ratio] 14.0 % Normal 11.6-14.6 [facility] Comment on above: Performed By: #### L 500.2500, L100.0500 ####[facility] [address] [place], [address] Hematocrit (Bld) [Volume fraction] 37.3 % Normal 37-47 [facility] Comment on above: Performed By: #### L 500.2500, L100.0500 ####[facility] [address] [place], [address] Hemoglobin (Bld) [Mass/Vol] 12.1 g/dL Normal 12.0-15.0 [facility] Comment on above: Performed By: #### L 500.2500, L100.0500 ####[facility] [address] [place], [address] MCH (RBC) [Entitic mass] 29.7 pg Normal 27.0-32.0 [facility] Comment on above: Performed By: #### L 500.2500, L100.0500 ####[facility] [address] [place], [address] MCHC (RBC) [Mass/Vol] 32.4 g/dL Normal 32-36 [facility] Comment on above: Performed By: #### L 500.2500, L100.0500 ####[facility] [address] [place], [address] MCV (RBC) [Entitic vol] 91.4 fL Normal 81-99 [facility] Comment on above: Performed By: #### L 500.2500, L100.0500 ####[facility] [address] [place], [address] Platelet mean volume (Bld) [Entitic vol] 8.6 fL Normal 6.2-12.0 [facility] Comment on above: Performed By: #### L 500.2500, L100.0500 ####[facility] [address] [place], [address] Platelets (Bld) [#/Vol] 302 10*3/uL Normal 150-450 [facility] Comment on above: Performed By: #### L 500.2500, L100.0500 ####[facility] [address] [place], [address] RBC (Bld) [#/Vol] 4.08 10*6/uL Low 4.2-5.4 [facility] Comment on above: Performed By: #### L 500.2500, L100.0500 ####[facility] [address] [place], [address] RDW SD 46.9 fl High 35.1-43.9 [facility] Comment on above: Performed By: #### L 500.2500, L100.0500 ####[facility] [address] [place], [address] WBC (Bld) [#/Vol] 6.9 10*3/uL Normal 4.4-11.0 [facility] Comment on above: Performed By: #### L 500.2500, L100.0500 ####[facility] [address] [place], [address] Carbon dioxide measurementOr dered By: Candido Echevarria on 08-22-2024 CO2 [Moles/Vol] 25.0 mmol/L 21.0-32.0 [facility] Chloride measurementOrdered By: Candido Echevarria on 08-22-2024 Chloride [Moles/Vol] 101 mmol/L 98-107 [facility] Estimated glomerular filtrat ion rate (GFR) AmericanOrdered By: Candido Echevarria on 08-22-2024 Estimated GFR (MDRD) Amer 87 mL/min >60 [facility] Comment on above: GFR Calc Glomerular filtration rate ( GFR) estimationOrdered By: Candido Echevarria on 08-22-2024 Estimated GFR (MDRD) Non-Af Amer 72 mL/min >60 [facility] Comment on above: Non- GFR Calc Glucose measurementOrdered B y: Candido Echevarria on 08-22-2024 Glucose [Mass/Vol] 107 mg/dL High 74-106 [facility] Comment on above: Fasting Glucose resu lt from 100 to 125 mg/dL suggests IMPAIRED HOMEOSTASIS per A.D.A. criteria. MRSA screenOrdered By: Damir Madrigal on 08-22-2024 Nasal Screen MRSA/MSSA [facility] Potassium measurementOrdered By: Candido Echevarria on 08-22-2024 Potassium [Moles/Vol] 4.6 mmol/L 3.5-5.1 [facility] Serum anion gap measurementO rdered By: Candido Echevarria on 08-22-2024 Anion gap [Moles/Vol] 5 mmol/L 5-15 [facility] Serum or plasma calcium parag urement (mass/volume)Ordered By: Candido Echevarria on 08-22-2024 Calcium [Mass/Vol] 8.8 mg/dL 8.5-10.1 [facility] Serum or plasma creatinine m easurement (mass/volume)Ordered By: Candido Echevarria on 08-22-2024 Creatinine [Mass/Vol] 0.80 mg/dL 0.55-1.02 [facility] Comment on above: The validity of the calculated GFR & GFRAA in patients over 70 years has not been determined. Clinical correlation is essential. Serum or plasma urea nitroge n measurement (mass/volume)Ordered By: Candido Echevarria on 08-22-2024 Urea nitrogen [Mass/Vol] 25 mg/dL High 7-18 [facility] Sodium levelOrdered By: Candido Echevarria on 08-22-2024 Sodium [Moles/Vol] 131 mmol/L Low 136-145 [facility] Chest PA and Lateralon 07-27 Chest PA and Lateral [facility] [address] [place], [place] [address] Chest PA and Lateral MR#: [id number] Acct: [id number] Name: MODESTA COOK Rep #: [id number] : 1940 F 83 From: Bonnie rubalcava MD PCP: Dr. Coy Nath, DO Status: REG CLI Study: Chest PA and Lateral Date of Exam: 07/27/24 Exam# [id number] Ordering Dr: Imtiaz Huffman PA [id number] HISTORY: cough. TECHNIQUE: XR Chest 2 Views. [...] CC: Dr. Coy Nath, DO; SWATI Bonds Ventilation Equipment Tender: Signed Normal [facility] Internal Medicine Office Vis trista 07-27-2024 Internal Medicine Office Visit [facility] [address] [place] [address] [place] [address] OFFICE VISIT Date of Service: 07/27/24 MR#: [id number] Acct: [id number] Name: MODESTA COOK Rep #: [id number] : 1940 Provider: SWATI Bonds Age/Sex: 83/F Location: [facility] Status: Signed Intake Vital Signs 07/04/24 14:58 [...] Visit Reasons: CHRONIC COUGH Chief Complaint: cough Cad Librarian Required: No Accompanied by: Daughter Is patient [...] abdominal pain, (more content not included)... Normal [facility] Surgery Visit Reporton 07-[address] [facility] [address] [place] [address]. [address] [place] [address] OFFICE VISIT Date of Service: 07/04/24 MR#: [id number] Acct: [id number] Name: MODESTA COOK Rep #: [id number] : 1940 Provider: Dr. Emily quinteros MD Age/Sex: 83/F Location: [facility] Status: Signed Intake Vital Signs 06/15/24 14:59 [...] Reasons: VENTRAL HERNIA Chief Complaint: ventral hernia Cad Librarian Required: No Is patient in pain?: No [...] mg 50 mg PO QHS #90 caps 11/19/24 11/19/24 Rx capsule Have you fallen in the [...] she has experienced diarrhea as well as "coffee grounds" consistency bowel character. However, today she reports that her bowels are back to normal color and consistency. She notes that "once in a while" she will experience pressure in her lower abdomen diffusely when her bowels "do not go down". Patient confirms that she has spent the [...] and new (more content not included)... Normal [facility] Hepatitis Panel Acuteon 11-0 COMMENT Comment Normal . [facility] Comment on above: Result Comment: Not infected with HCV unless early or acute infection is suspected (which may be delayed in an immunocompromised individual), or other evidence exists to indicate HCV infection. Performed at: [facility] [address] [id number] Aerospace Stress Engineer: Brennan Yi PhD, Phone: [phone] Performed By: #### L 3000.0375 #### [facility] [address] [place], [address] HEP B CORE,IgM Negative Normal Negative [facility] Comment on above: Performed By: #### L 3000.0375 #### [facility] [address] [place], [address] HEP B SURF AG Negative Normal Negative [facility] Comment on above: Performed By: #### L 3000.0375 #### [facility] [address] [place], [address] HEP C VIRUS AB Non-Reactive Normal Non Reactive [facility] Comment on above: Performed By: #### L 3000.0375 #### [facility] [address] [place], [address] HEPATITIS A-IgM Negative Normal Negative [facility] Comment on above: Result Comment: A ne gative anti-HAV IgM result suggests no recent or current HAV infection. Performed By: #### L 3000.0375 #### [facility] [address] [place], [address] Hepatitis Profile I Diagon 1 HEP B CORE,IgM Normal [facility] Comment on above: Result Comment: NOT ORDERABLE IN LC Performed By: #### L 3000.0350, L500.3400 #### [facility] [address] [place], [address] HEP B SURF AG Normal [facility] Comment on above: Result Comment: NOT ORDERABLE IN LC Performed By: #### L 3000.0350, L500.3400 #### [facility] [address] [place], [address] HEPATITIS A-IgM Normal [facility] Comment on above: Result Comment: NOT ORDERABLE IN LC Performed By: #### L 3000.0350, L500.3400 #### [facility] [address] [place], [address] HEPATITIS INTER Normal [facility] Comment on above: Result Comment: NOT ORDERABLE IN LC Performed By: #### L 3000.0350, L500.3400 #### [facility] [address] [place], [address] Internal Medicine Office Vis itokhadar 06-15-2024 Internal Medicine Office Visit [facility] [address] [place] [address] [place] [address] OFFICE VISIT Date of Service: 06/15/24 MR#: [id number] Acct: [id number] Name: MODESTA COOK Rep #: [id number] : 1940 Provider: AGNIESZKA laurent Age/Sex: 83/F Location: [facility] Status: Signed Intake Vital Signs 04/26/24 11:37 [...] reports du (more content not included)... Normal [facility] Liver Profileon 06-15-2024 Albumin [Mass/Vol] 3.1 g/dL Low 3.2-5.0 [facility] Comment on above: Performed By: #### L 3000.0350, L500.3400 #### [facility] [place], [address] ALK P 170 U/L High 45-117 [facility] Comment on above: Performed By: #### L 3000.0350, L500.3400 #### [facility] [address] [place], [address] ALT [Catalytic activity/Vol] 379 U/L High 13-56 [facility] Comment on above: Performed By: #### L 3000.0350, L500.3400 #### [facility] [address] [place], [address] AST [Catalytic activity/Vol] 269 U/L High 15-37 [facility] Comment on above: Performed By: #### L 3000.0350, L500.3400 #### [facility] [address] [place], [address] Bilirubin [Mass/Vol] 0.40 mg/dL Normal 0.20-1.00 [facility] Comment on above: Result Comment: For patients on eltrombopag therapy, use of Dimension Tracy TBIL is not recommended. Performed By: #### L 3000.0350, L500.3400 #### [facility] [address] [place], [address] Bilirubin.direct [Mass/Vol] 0.20 mg/dL Normal 0.00-0.30 [facility] Comment on above: Performed By: #### L 3000.0350, L500.3400 #### [facility] [address] [place], [address] Globulin (S) [Mass/Vol] 4.8 g/dL High 2.2-4.2 [facility] Comment on above: Performed By: #### L 3000.0350, L500.3400 #### [facility] [address] [place], [address] T PROT 7.9 g/dL Normal 6.4-8.2 [facility] Comment on above: Performed By: #### L 3000.0350, L500.3400 #### [facility] [place], [address] Absolute lymphocyte countOrd ered By: Coy Nath on 09-29-2023 Lymphocytes Auto (Unsp spec) [#/Vol] 3.08 10*3/uL 0.83-4.51 [facility] Automated lymphocyte count a s percentage of total leukocytesOrdered By: Coy Nath on 09-29-2023 Lymphocytes/100 WBC Auto (Unsp spec) 35.0 % 19-41 [facility] Basophil percentageOrdered B y: Coyabelino Nath on 09-29-2023 Basophils/100 WBC (Bld) 0.8 % 0-1 [facility] Chloride [Moles/Vol] 106 mmol/L 98-107 [facility] Eosinophils/100 WBC (Bld) 3.2 % 0-5 [facility] Glucose [Mass/Vol] 103 mg/dL 74-106 [facility] Comment on above: Fasting Glucose resu lt from 100 to 125 mg/dL suggests IMPAIRED HOMEOSTASIS per A.D.A. criteria. Hemoglobin (Bld) [Mass/Vol] 11.8 g/dL 12.0-15.0 [facility] Monocytes/100 WBC (Bld) 8.6 % 0-10 [facility] Neutrophils (Bld) [#/Vol] 4.6 10*3/uL 2.0-7.7 [facility] Neutrophils/100 WBC (Bld) 52.2 % 47-70 [facility] Potassium [Moles/Vol] 4.1 mmol/L 3.5-5.1 [facility] Sodium [Moles/Vol] 136 mmol/L 136-145 [facility] WBC (Bld) [#/Vol] 8.8 10*3/uL 4.4-11.0 [facility] Determination of erythrocyte mean corpuscular volume (MCV)Ordered By: Coy Nath on 09-29-2023 MCV (RBC) [Entitic vol] 83.7 fL 81-99 [facility] Erythrocyte distribution wid th ratioOrdered By: Coy Nath on 09-29-2023 Erythrocyte distribution width (RBC) [Ratio] 15.9 % 11.6-14.6 [facility] Erythrocyte distribution wid th standard deviationOrdered By: Coy Nath on 09-29-2023 Erythrocyte distribution width (RBC) [Entitic vol] 48.7 fL 35.1-43.9 [facility] Hematocrit Auto (Bld) [Volum e fraction]Ordered By: Coy Nath on 09-29-2023 Hematocrit (Bld) [Volume fraction] 37.5 % 37-47 [facility] Immature granulocytes/100 WB C Auto (Bld)Ordered By: Coy Nath on 09-29-2023 Immature granulocytes/100 WBC (Bld) 0.200 % 0.0-0.9 [facility] Comment on above: IG% - Immature Granu locytes (promyelocytes, myelocytes and metamyelocytes) > 1% indicates that a LEFT SHIFT is Present. Laboratory - Chemistry and C hemistry - challengeOrdered By: Coy Nath on 09-29-2023 CO2 [Moles/Vol] 26.0 mmol/L 21.0-32.0 [facility] Urea nitrogen/Creatinine [Mass ratio] 44.7 mg/mg 10-20 [facility] Laboratory - Hematology and Cell countsOrdered By: Coy Nath on 09-29-2023 MCH (RBC) [Entitic mass] 26.3 pg 27.0-32.0 [facility] MCHC (RBC) [Mass/Vol] 31.5 g/dL 32-36 [facility] Nucleated RBC/100 WBC (Bld) [Ratio] 0 % 0-5 [facility] Platelet mean volume (Bld) [Entitic vol] 9.3 fL 6.2-12.0 [facility] Platelets (Bld) [#/Vol] 373 10*3/uL 150-450 [facility] No Panel InformationOrdered By: Coy Nath on 09-29-2023 Estimated GFR (MDRD) Amer 96 mL/min >60 [facility] Comment on above: GFR Calc Estimated GFR (MDRD) Non-Af Amer 80 mL/min >60 [facility] Comment on above: Non- GFR Calc RBC Auto (Bld) [#/Vol]Ordere d By: Coy Nath on 09-29-2023 RBC (Bld) [#/Vol] 4.48 10*6/uL 4.2-5.4 [facility] Serum or plasma calcium parag urement (mass/volume)Ordered By: Coy Nath on 09-29-2023 Calcium [Mass/Vol] 9.6 mg/dL 8.5-10.1 [facility] Serum or plasma creatinine m easurement (mass/volume)Ordered By: Coy Nath on 09-29-2023 Creatinine [Mass/Vol] 0.74 mg/dL 0.55-1.02 [facility] Comment on above: The validity of the calculated GFR & GFRAA in patients over 70 years has not been determined. Clinical correlation is essential. Serum or plasma urea nitroge n measurement (mass/volume)Ordered By: Coy Nath on 09-29-2023 Urea nitrogen [Mass/Vol] 33 mg/dL 7-18 [facility] Thin prep Papanicolaou smear with manual screeningOrdered By: Coy Nath on 09-29-2023 Thin prep Papanicolaou smear with manual screening 4 12-28 [facility] Laboratory - CoagulationOrde red By: Coy Nath on 08-30-2023 PT Coag (PPP) [Time] 21.0 s 11.7-14.9 [facility] Whole blood international no rmalized ratio (INR)Ordered By: Coy Nath on 08-30-2023 INR Coag (Bld) [Relative time] 1.8 {INR} [facility] INR in Blood by Coagulation assayOrdered By: Coy Nath on 07-21-2023 INR Coag (Bld) [Relative time] 2.0 {INR} [facility] Laboratory - CoagulationOrde red By: Coy Nath on 07-21-2023 PT Coag (PPP) [Time] 22.9 s 11.7-14.9 [facility] Absolute lymphocyte countOrd ered By: Jhonny Marr on 07-09-2023 Lymphocytes Auto (Unsp spec) [#/Vol] 1.82 10*3/uL 0.83-4.51 [facility] Basophil percentageOrdered B y: Jhonny Marr on 07-09-2023 Basophils/100 WBC (Bld) 1.1 % 0-1 [facility] Chloride [Moles/Vol] 102 mmol/L 98-107 [facility] Eosinophils/100 WBC (Bld) 0.8 % 0-5 [facility] Glucose [Mass/Vol] 140 mg/dL 74-106 [facility] Comment on above: Fasting Glucose resu lt greater than or equal to 126 mg/dL suggests DIABETES MELLITUS per A.D.A. criteria. Neutrophils (Bld) [#/Vol] 9.7 10*3/uL 2.0-7.7 [facility] Neutrophils/100 WBC (Bld) 73.1 % 47-70 [facility] Potassium [Moles/Vol] 3.8 mmol/L 3.5-5.1 [facility] Sodium [Moles/Vol] 134 mmol/L 136-145 [facility] WBC (Bld) [#/Vol] 13.3 10*3/uL 4.4-11.0 [facility] Blood erythrocytes count (nu mber/volume)Ordered By: Jhonny Marr on 07-09-2023 RBC (Bld) [#/Vol] 3.79 10*6/uL 4.2-5.4 [facility] Blood hemoglobin measurement (mass/volume)Ordered By: Jhonny Marr on 07-09-2023 Hemoglobin (Bld) [Mass/Vol] 10.0 g/dL 12.0-15.0 [facility] Blood lymphocytes/100 leukoc ytesOrdered By: Jhonny Marr on 07-09-2023 Lymphocytes/100 WBC (Bld) 13.7 % 19-41 [facility] Blood metamyelocytes/100 ramon kocytesOrdered By: Jhonny Marr on 07-09-2023 Metamyelocytes/100 WBC (Bld) 13.3 % 0-1 [facility] Blood monocytes/100 leukocyt esOrdered By: Jhonny Marr on 07-09-2023 Monocytes/100 WBC (Bld) 9.0 % 0-10 [facility] Blood platelet adequacy dete ction by light microscopyOrdered By: Jhonny Marr on 07-09-2023 Platelets LM Ql (Bld) MKD INC ADEQ [facility] Blood platelet mean volumeOr dered By: Jhonny Marr on 07-09-2023 Platelet mean volume (Bld) [Entitic vol] 8.3 fL 6.2-12.0 [facility] Determination of erythrocyte mean corpuscular volume (MCV)Ordered By: Jhonny Marr on 07-09-2023 MCV (RBC) [Entitic vol] 87.6 fL 81-99 [facility] Hematocrit Auto (Bld) [Volum e fraction]Ordered By: Jhonny Marr on 07-09-2023 Hematocrit (Bld) [Volume fraction] 33.2 % 37-47 [facility] INR in Blood by Coagulation assayOrdered By: Jhonnyamerica Marr on 07-09-2023 INR Coag (Bld) [Relative time] 1.7 {INR} [facility] Laboratory - Chemistry and C hemistry - challengeOrdered By: Jhonnyamerica Marr on 07-09-2023 CO2 [Moles/Vol] 26.0 mmol/L 21.0-32.0 [facility] Urea nitrogen/Creatinine [Mass ratio] 50.1 mg/mg 10-20 [facility] Laboratory - CoagulationOrde red By: Jhonny Marr on 07-09-2023 PT Coag (PPP) [Time] 20.2 s 11.7-14.9 [facility] Laboratory - Hematology and Cell countsOrdered By: Jhonnyamerica Marr on 07-09-2023 Erythrocyte distribution width (RBC) [Entitic vol] 51.5 fL 35.1-43.9 [facility] Erythrocyte distribution width (RBC) [Ratio] 16.0 % 11.6-14.6 [facility] Immature granulocytes/100 WBC (Bld) 2.300 % 0.0-0.9 [facility] Comment on above: IG% - Immature Granu locytes (promyelocytes, myelocytes and metamyelocytes) > 1% indicates that a LEFT SHIFT is Present. MCH (RBC) [Entitic mass] 26.4 pg 27.0-32.0 [facility] Nucleated RBC/100 WBC (Bld) [Ratio] 0 % 0-5 [facility] MCHC Auto (RBC) [Mass/Vol]Or dered By: Jhonny Marr on 07-09-2023 MCHC (RBC) [Mass/Vol] 30.1 g/dL 32-36 [facility] No Panel InformationOrdered By: Jhonny Marr on 07-09-2023 Troponin I High Sensitivity 12 pg/mL 3.0-54.0 [facility] Comment on above: Please Note: New Lala t Units and Gender Specific Reference Ranges. For more information see Policy Stat Procedure Tracy High Sensitivity Troponin (TNIH) and attachments. Estimated Creatinine Clearance Calc 35.26 ml/min [facility] Estimated GFR (MDRD) Amer 103 mL/min >60 [facility] Comment on above: GFR Calc Estimated GFR (MDRD) Non-Af Amer 85 mL/min >60 [facility] Comment on above: Non- GFR Calc Platelets bldOrdered By: Jhonny Marr on 07-09-2023 Platelets (Bld) [#/Vol] 820 10*3/uL 150-450 [facility] Review by pathologistOrdered By: Jhonny Marr on 07-09-2023 Pathologist review Heri (Unsp spec) [Interp] Reviewed [facility] Comment on above: Previous reported re sult: Julia solis Edited by: RGOOD on 07/12/23:1321Neutrophilic leukocytosis.Normocytic anemia.Marked Thrombocytosis consistent with proliferative disorder.Clinical correlation necessary.Alejandro Rodriguez D.O. 07/12/23 AMENDED REPORT 07/12/23 1321 PATH REV previously reported as: Julia solis Serum or plasma calcium parag urement (mass/volume)Ordered By: Jhonny Marr on 07-09-2023 Calcium [Mass/Vol] 9.2 mg/dL 8.5-10.1 [facility] Serum or plasma creatinine m easurement (mass/volume)Ordered By: Jhonny Marr on 07-09-2023 Creatinine [Mass/Vol] 0.70 mg/dL 0.55-1.02 [facility] Comment on above: The validity of the calculated GFR & GFRAA in patients over 70 years has not been determined. Clinical correlation is essential. Serum or plasma urea nitroge n measurement (mass/volume)Ordered By: Jhonny Marr on 07-09-2023 Urea nitrogen [Mass/Vol] 35 mg/dL 7-18 [facility] Thin prep Papanicolaou smear with manual screeningOrdered By: Jhonny Marr on 07-09-2023 Thin prep Papanicolaou smear with manual screening 6 - [facility] .Auto Diffon 07-05-2023 Basophil, Absolute 0.1 10 3/mcL Normal 0.0-0.2 [facility] ([place]) Comment on above: Performed By: #### A DIFF, MDW, GFR, ANEU, CBC, CMP, PRO #### [address] [address] Basophils/100 WBC (Bld) 0.9 % Normal 0.0-2.5 [facility] ([place]) Comment on above: Performed By: #### A DIFF, MDW, GFR, ANEU, CBC, CMP, PRO #### [address] [address] Eosinophil, Absolute 0.2 10 3/mcL Normal 0.0-0.4 [facility] ([place]) Comment on above: Performed By: #### A DIFF, MDW, GFR, ANEU, CBC, CMP, PRO #### [address] [address] Eosinophils/100 WBC (Bld) 2.4 % Normal 0.0-7.0 [facility] ([place]) Comment on above: Performed By: #### A DIFF, MDW, GFR, ANEU, CBC, CMP, PRO #### [address] [address] Lymphocyte, Absolute 1.0 10 3/mcL Normal 0.8-3.9 [facility] ([place]) Comment on above: Performed By: #### A DIFF, MDW, GFR, ANEU, CBC, CMP, PRO #### [address] [address] Lymphocytes/100 WBC (Bld) 11.7 % Normal 10.0-50.0 [facility] ([place]) Comment on above: Performed By: #### A DIFF, MDW, GFR, ANEU, CBC, CMP, PRO #### [address] [address] Monocyte, Absolute 0.7 10 3/mcL Normal 0.2-1.0 [facility] ([place]) Comment on above: Performed By: #### A DIFF, MDW, GFR, ANEU, CBC, CMP, PRO #### [address] [address] Monocytes/100 WBC (Bld) 8.8 % Normal 1.7-13.0 [facility] ([place]) Comment on above: Performed By: #### A DIFF, MDW, GFR, ANEU, CBC, CMP, PRO #### [address] [address] Neutrophils/100 WBC (Bld) 76.2 % Normal 37.0-80.0 [facility] ([place]) Comment on above: Performed By: #### A DIFF, MDW, GFR, ANEU, CBC, CMP, PRO #### [address] [address] .GFRon 07-05-2023 GFR 104 ml/min/1.73sqm Normal [facility] ([place]) Comment on above: Result Comment: GFR Population [...] MDW, GFR, ANEU, CBC, CMP, PRO #### [address] [address] GFR Non- 86 ml/min/1.73sqm Normal [facility] ([place]) Comment on above: Result Comment: GFR Population [...] MDW, GFR, ANEU, CBC, CMP, PRO #### [address] [address] .MDWon 07-05-2023 Monocyte Distribution Width 18.68 Normal 0.00-20.00 [facility] ([place]) Comment on above: Result Comment: For ED adult patients suspected of sepsis, MDW<=20.0 does not rule out sepsis or risk of sepsis Performed By: #### A DIFF, MDW, GFR, ANEU, CBC, CMP, PRO #### [place] [address] .NEUABSon 07-05-2023 Neutrophil, Absolute 6.3 10 3/mcL High 2.9-6.2 [facility] ([place]) Comment on above: Performed By: #### A DIFF, MDW, GFR, ANEU, CBC, CMP, PRO #### [place] [id number] CBCon 07-05-2023 Erythrocyte distribution width (RBC) [Ratio] 16.4 % High 11.5-14.5 [facility] ([place]) Comment on above: Performed By: #### A DIFF, MDW, GFR, ANEU, CBC, CMP, PRO #### [place] [id number] Hematocrit (Bld) [Volume fraction] 28.8 % Low 37.0-47.0 [facility] ([place]) Comment on above: Performed By: #### A DIFF, MDW, GFR, ANEU, CBC, CMP, PRO #### [place] [id number] Hgb 9.5 G/dL Low 12.0-16.0 [facility] ([place]) Comment on above: Performed By: #### A DIFF, MDW, GFR, ANEU, CBC, CMP, PRO #### [address] [address] MCH (RBC) [Entitic mass] 27.3 pg Normal 27.0-31.2 [facility] ([place]) Comment on above: Performed By: #### A DIFF, MDW, GFR, ANEU, CBC, CMP, PRO #### [address] [address] MCHC 33.2 G/dL Normal 33.0-37.0 [facility] ([place]) Comment on above: Performed By: #### A DIFF, MDW, GFR, ANEU, CBC, CMP, PRO #### [address] [address] MCV (RBC) [Entitic vol] 82.4 fL Normal 80.0-94.0 [facility] ([place]) Comment on above: Performed By: #### A DIFF, MDW, GFR, ANEU, CBC, CMP, PRO #### [address] [address] Platelet 677 10 3/mcL High 130-400 [facility] ([place]) Comment on above: Performed By: #### A DIFF, MDW, GFR, ANEU, CBC, CMP, PRO #### [address] [address] Platelet mean volume (Bld) [Entitic vol] 5.9 fL Low 7.4-10.4 [facility] ([place]) Comment on above: Performed By: #### A DIFF, MDW, GFR, ANEU, CBC, CMP, PRO #### [address] [address] RBC 3.49 10 6/mcL Low 4.20-5.40 [facility] ([place]) Comment on above: Performed By: #### A DIFF, MDW, GFR, ANEU, CBC, CMP, PRO #### [place] [id number] WBC 8.2 10 3/mcL Normal 4.6-10.8 [facility] ([place]) Comment on above: Performed By: #### A DIFF, MDW, GFR, ANEU, CBC, CMP, PRO #### [address] [address] CMPon 07-05-2023 Albumin Level 3.0 G/dL Low 3.4-4.8 [facility] ([place]) Comment on above: Performed By: #### A DIFF, MDW, GFR, ANEU, CBC, CMP, PRO #### [address] [address] Albumin/Globulin [Mass ratio] 0.7 {ratio} Low 1.1-2.5 [facility] ([place]) Comment on above: Performed By: #### A DIFF, MDW, GFR, ANEU, CBC, CMP, PRO #### [address] [address] ALP [Catalytic activity/Vol] 110 U/L Normal 40-135 [facility] ([place]) Comment on above: Performed By: #### A DIFF, MDW, GFR, ANEU, CBC, CMP, PRO #### [address] [address] ALT [Catalytic activity/Vol] 14 U/L Normal 14-59 [facility] ([place]) Comment on above: Performed By: #### A DIFF, MDW, GFR, ANEU, CBC, CMP, PRO #### [address] [address] AST [Catalytic activity/Vol] 26 U/L Normal 10-40 [facility] ([place]) Comment on above: Performed By: #### A DIFF, MDW, GFR, ANEU, CBC, CMP, PRO #### [address] [address] Bili Total 0.3 mg/dL Normal 0.2-1.0 [facility] ([place]) Comment on above: Result Comment: Use of this assay is not recommended for patients undergoing treatment with eltrombopag due to the potential for falsely elevated results. Performed By: #### A DIFFJAMEL, GFR, ANEU, CBC, CMP, PRO #### [address] [address] BUN/Creatinine Ratio 32 ratio High 7-27 [facility] ([place]) Comment on above: Performed By: #### A JAMEL TUBBS, GFR, ANEU, CBC, CMP, PRO #### [address] [address] Calcium [Mass/Vol] 9.0 mg/dL Normal 8.4-10.2 [facility] ([place]) Comment on above: Performed By: #### A JAMEL TUBBS, GFR, ANEU, CBC, CMP, PRO #### [address] [address] Chloride [Moles/Vol] 101 mmol/L Normal 98-107 [facility] ([place]) Comment on above: Performed By: #### A JAMEL TUBBS, GFR, ANEU, CBC, CMP, PRO #### [address] [address] CO2 [Moles/Vol] 25 mmol/L Normal 23-31 [facility] ([place]) Comment on above: Performed By: #### A JAMEL TUBBS, GFR, ANEU, CBC, CMP, PRO #### [address] [address] Creatinine [Mass/Vol] 0.66 mg/dL Normal 0.55-1.02 [facility] ([place]) Comment on above: Performed By: #### A JAMEL TUBBS, GFR, ANEU, CBC, CMP, PRO #### [address] [address] Electrolyte Balance 9.0 mEq/L Normal 4.0-15.0 [facility] ([place]) Comment on above: Performed By: #### A JAMEL TUBBS, GFR, ANEU, CBC, CMP, PRO #### [address] [address] Globulin 4.6 G/dL Normal [facility] ([place]) Comment on above: Performed By: #### A DIFF, MDW, GFR, ANEU, CBC, CMP, PRO #### [address] [address] Glucose [Mass/Vol] 120 mg/dL High 83-110 [facility] ([place]) Comment on above: Performed By: #### A DIFF MDW, GFR, ANEU, CBC, CMP, PRO #### [address] [address] Potassium [Moles/Vol] 4.2 mmol/L Normal 3.5-5.1 [facility] ([place]) Comment on above: Performed By: #### A DIFF, MDW, GFR, ANEU, CBC, CMP, PRO #### [address] [address] Sodium [Moles/Vol] 135 mmol/L Low 136-145 [facility] ([place]) Comment on above: Performed By: #### A MD ARLEYW, GFR, ANEU, CBC, CMP, PRO #### [address] [address] Total Protein 7.6 G/dL Normal 6.4-8.2 [facility] ([place]) Comment on above: Performed By: #### A JAMEL TUBBS, GFR, ANEU, CBC, CMP, PRO #### [address] [address] Urea nitrogen [Mass/Vol] 21 mg/dL High 7-18 [facility] ([place]) Comment on above: Performed By: #### A DIFFMDW, GFR, ANEU, CBC, CMP, PRO #### [address] [address] LABORATORYOrdered By: SYSTEM SYSTEM on 07-05-2023 Albumin [...] Comment on above: Interpretive Data: Antonio flores [employer] (CHEST, 1991, 102:312S-25S) [...] Coag (PPP) [Time] 40.1 s High 9.0-14.2 [facility] ([place]) Comment on above: Performed By: #### A JAMEL TUBBS, GFR, ANEU, CBC, CMP, PRO #### [place] [address] [place], [place] [address] PT International Ratio 3.4 Normal [facility] ([place]) Comment on above: Result Comment: [employer] (CHEST, 1992, 102:312S-25S) recommended therapeutic range for oral anticoagulant therapy is: LOW RISK: Prophylaxis of venous thrombosis INR: 2.0-3.0 Treatment of pulmonary embolism 2.0-3.0 Prevention of systemic embolism 2.0-3.0 HIGH RISK: Mechanical prosthetic valves 2.5-3.5 Performed By: #### A JAMEL TUBBS, GFR, ANEU, CBC, CMP, PRO #### [place] [address] [place], [place] [address] Absolute lymphocyte countOrd ered By: Angelica Brown on 07-01-2023 Lymphocytes Auto (Unsp spec) [#/Vol] 1.55 10*3/uL 0.83-4.51 [facility] Basophil percentageOrdered B y: Angelica Brown on 07-01-2023 Basophils/100 WBC (Bld) 0.8 % 0-1 [facility] Bilirubin [Mass/Vol] 0.40 mg/dL 0.20-1.00 [facility] Comment on above: For patients on eltr ombopag therapy, use of Dimension [place] TBIL is not recommended. Chloride [Moles/Vol] 103 mmol/L 98-107 [facility] Eosinophils/100 WBC (Bld) 1.2 % 0-5 [facility] Glucose [Mass/Vol] 107 mg/dL 74-106 [facility] Comment on above: Fasting Glucose resu lt from 100 to 125 mg/dL suggests IMPAIRED HOMEOSTASIS per A.D.A. criteria. Neutrophils (Bld) [#/Vol] 7.9 10*3/uL 2.0-7.7 [facility] Neutrophils/100 WBC (Bld) 75.0 % 47-70 [facility] Potassium [Moles/Vol] 4.2 mmol/L 3.5-5.1 [facility] Protein [Mass/Vol] 7.7 g/dL 6.4-8.2 [facility] Sodium [Moles/Vol] 136 mmol/L 136-145 [facility] WBC (Bld) [#/Vol] 10.6 10*3/uL 4.4-11.0 [facility] Blood erythrocytes count (nu mber/volume)Ordered By: Angelica Brown on 07-01-2023 RBC (Bld) [#/Vol] 3.49 10*6/uL 4.2-5.4 [facility] Blood hemoglobin measurement (mass/volume)Ordered By: Angelica Brown on 07-01-2023 Hemoglobin (Bld) [Mass/Vol] 9.3 g/dL 12.0-15.0 [facility] Blood lymphocytes/100 leukoc ytesOrdered By: Angelica Brown on 07-01-2023 Lymphocytes/100 WBC (Bld) 14.6 % 19-41 [facility] Blood monocytes/100 leukocyt esOrdered By: Angelica Brown on 07-01-2023 Monocytes/100 WBC (Bld) 7.8 % 0-10 [facility] Blood platelet mean volumeOr dered By: Angelica Brown on 07-01-2023 Platelet mean volume (Bld) [Entitic vol] 8.3 fL 6.2-12.0 [facility] Determination of erythrocyte mean corpuscular volume (MCV)Ordered By: Angelica Brown on 07-01-2023 MCV (RBC) [Entitic vol] 89.1 fL 81-99 [facility] Hematocrit Auto (Bld) [Volum e fraction]Ordered By: Angelica Brown on 07-01-2023 Hematocrit (Bld) [Volume fraction] 31.1 % 37-47 [facility] INR in Blood by Coagulation assayOrdered By: Angelica Brown on 07-01-2023 INR Coag (Bld) [Relative time] 3.5 {INR} [facility] Laboratory - Chemistry and C hemistry - challengeOrdered By: Angelica Brown on 07-01-2023 ALP [Catalytic activity/Vol] 102 U/L 45-117 [facility] ALT [Catalytic activity/Vol] 17 U/L 13-56 [facility] CO2 [Moles/Vol] 29.0 mmol/L 21.0-32.0 [facility] Globulin (S) [Mass/Vol] 4.5 g/dL 2.2-4.2 [facility] Urea nitrogen/Creatinine [Mass ratio] 34.0 mg/mg 10-20 [facility] Laboratory - CoagulationOrde red By: Angelica Brown on 07-01-2023 PT Coag (PPP) [Time] 35.5 s 11.7-14.9 [facility] Laboratory - Hematology and Cell countsOrdered By: Angelica Brown on 07-01-2023 Erythrocyte distribution width (RBC) [Entitic vol] 51.9 fL 35.1-43.9 [facility] Erythrocyte distribution width (RBC) [Ratio] 15.9 % 11.6-14.6 [facility] Immature granulocytes/100 WBC (Bld) 0.600 % 0.0-0.9 [facility] Comment on above: IG% - Immature Granu locytes (promyelocytes, myelocytes and metamyelocytes) > 1% indicates that a LEFT SHIFT is Present. MCH (RBC) [Entitic mass] 26.6 pg 27.0-32.0 [facility] Nucleated RBC/100 WBC (Bld) [Ratio] 0 % 0-5 [facility] MCHC Auto (RBC) [Mass/Vol]Or dered By: Angelica Brown on 07-01-2023 MCHC (RBC) [Mass/Vol] 29.9 g/dL 32-36 [facility] No Panel InformationOrdered By: Angelica Brown on 07-01-2023 Estimated GFR (MDRD) Amer 97 mL/min >60 [facility] Comment on above: GFR Calc Estimated GFR (MDRD) Non-Af Amer 80 mL/min >60 [facility] Comment on above: Non- GFR Calc Platelets bldOrdered By: Rogers Brown on 07-01-2023 Platelets (Bld) [#/Vol] 694 10*3/uL 150-450 [facility] Serum or plasma albumin parag urement (mass/volume)Ordered By: Angelica Brown on 07-01-2023 Albumin [Mass/Vol] 3.2 g/dL 3.2-5.0 [facility] Serum or plasma albumin/glob ulin mass ratioOrdered By: Angelica Brown on 07-01-2023 Albumin/Globulin [Mass ratio] 0.7 {ratio} 0.9-2.4 [facility] Serum or plasma calcium parag urement (mass/volume)Ordered By: Angelica Brown on 07-01-2023 Calcium [Mass/Vol] 9.3 mg/dL 8.5-10.1 [facility] Serum or plasma creatinine m easurement (mass/volume)Ordered By: Angelica Brown on 07-01-2023 Creatinine [Mass/Vol] 0.74 mg/dL 0.55-1.02 [facility] Comment on above: The validity of the calculated GFR & GFRAA in patients over 70 years has not been determined. Clinical correlation is essential. Serum or plasma urea nitroge n measurement (mass/volume)Ordered By: Angelica Brown on 07-01-2023 Urea nitrogen [Mass/Vol] 25 mg/dL 7-18 [facility] Thin prep Papanicolaou smear with manual screeningOrdered By: Angelica Brown on 07-01-2023 Thin prep Papanicolaou smear with manual screening 26 U/L 15-37 [facility] Thin prep Papanicolaou smear with manual screening 4 5-15 [facility] PROon 06-25-2023 INR Coag (PPP) [Relative time] 3.0 {INR} Normal [facility] ([place]) Comment on above: Result Comment: [employer] (CHEST, 1992, 102:312S-25S) recommended therapeutic range for oral anticoagulant therapy is: LOW RISK: Prophylaxis of venous thrombosis INR: 2.0-3.0 Treatment of pulmonary embolism 2.0-3.0 Prevention of systemic embolism 2.0-3.0 HIGH RISK: Mechanical prosthetic valves 2.5-3.5 Performed By: #### P RO #### [place] [address] PT Coag (PPP) [Time] 34.5 s High 9.0-14.2 [facility] ([place]) Comment on above: Result Comment: Effe ctive 02/28/08, Protime results may be affected by some antibiotics (i.e. Ciprofloxacin, Azithromycin, Bactrim) which may potentiate the action of oral anticoagulants, with further increases in Protime/INR. Performed By: #### P RO #### [facility] [address] [place] [address] ECG 12 leadOrdered By: Leopoldo Chase on 06-24-2023 Atrial Rate 277 BPM [facility] Work Phone: [phone] P Smyer 110 degrees [facility] Work Phone: [phone] P Offset 192 ms [facility] Work Phone: [phone] P Onset 133 ms [facility] Work Phone: [phone] Q Onset 212 ms [facility] Work Phone: [phone] QRS Count 22 beats [facility] Work Phone: [phone] QRS Duration 108 ms [facility] Work Phone: [phone] QT Interval 304 ms [facility] Work Phone: [phone] QTC Calculation(Bazett) 453 ms [facility] Work Phone: [phone] QTC Fredericia 397 ms [facility] Work Phone: [phone] R Smyer 34 degrees [facility] Work Phone: [phone] T Smyer 263 degrees [facility] Work Phone: [phone] T Offset 364 ms [facility] Work Phone: [phone] Ventricular Rate 134 BPM [facility] Work Phone: [phone] [facility] Work Phone: [phone] ECG 12 leadon 06-24-2023 Atrial flutter with variable AV block Nonspecific T wave abnormality Abnormal ECG When compared with ECG of 08-JUN-2023 22:23, No significant change was found Confirmed by Bhargav Chase ([id number]) on 06/24/2023 8:57:22 AM MUSE Bhargav Chase MD - 06/24/2023 Atrial flutter with variable AV block Nonspecific T wave abnormality Abnormal ECG When compared with ECG of 08-JUN-2023 22:23, No significant change was found Confirmed by Bhargav Chase ([id number]) on 06/24/2023 8:57:22 AM [facility] Work Phone: No Panel InformationOrdered By: Bhargav Chase on 06-24-2023 Atrial Rate 85 BPM [facility] Work Phone: [phone] Q Onset 220 ms [facility] Work Phone: [phone] QRS Count 14 beats [facility] Work Phone: [phone] QRS Duration 96 ms [facility] Work Phone: [phone] QT Interval 316 ms [facility] Work Phone: [phone] QTC Calculation(Bazett) 376 ms [facility] Work Phone: [phone] QTC Fredericia 354 ms [facility] Work Phone: R Smyer 42 degrees [facility] Work Phone: [phone] T Smyer -85 degrees [facility] Work Phone: T Offset 378 ms [facility] Work Phone: [phone] Ventricular Rate 85 BPM [facility] Work Phone: [phone] [facility] Work Phone: [phone] No Panel Informationon 06-24 Atrial fibrillation Moderate [...] are now Present Reconfirmed by Bhargav Chase ([id number]) on 06/24/2023 8:59:04 AM [facility] Work Phone: CBC panel Auto (Bld)on 06-23 Erythrocyte distribution width (RBC) [Ratio] 15.4 % High 11.5-14.5 [facility] [place] Comment on above: Performed By: #### 5 7021-8 #### JACQUI Hayes ([id number]) [facility] ([facility]) [address] [place] [address] Hematocrit (Bld) [Volume fraction] 26.1 % Low 36.0-46.0 [facility] [place] Comment on above: Performed By: #### 5 7021-8 #### JACQUI Hayes ([id number]) [facility] ([facility]) [address] [place] [address] Hemoglobin (Bld) [Mass/Vol] 8.6 g/dL Low 12.0-16.0 [facility] [place] Comment on above: Performed By: #### 5 7021-8 #### JACQUI Hayes ([id number]) [facility] ([facility]) [address] [place] [address] MCH (RBC) [Entitic mass] 27.1 pg Normal 26.0-34.0 [facility] [place] Comment on above: Performed By: #### 5 7021-8 #### JACQUI Hayes ([id number]) [facility] ([facility]) [address] [place] [address] MCHC (RBC) [Mass/Vol] 33.0 g/dL Normal 32.0-36.0 [facility] Comment on above: Performed By: #### 5 7021-8 #### JACQUI Hayes ([id number]) [facility] ([facility]) [id number] [place] [address] MCV (RBC) [Entitic vol] 82 fL Normal 80-100 [facility] [place] Comment on above: Performed By: #### 5 7021-8 #### JACQUI Hayes ([id number]) [facility] ([facility]) [address] [place] [address] Nucleated RBC/100 WBC (Bld) [Ratio] 0.0 /100 WBCs Normal 0.0-0.0 [facility] [place] Comment on above: Performed By: #### 5 7021-8 #### JACQUI Hayes ([id number]) [facility] ([facility]) [address] [place] [address] Platelets (Bld) [#/Vol] 572 x10*3/uL High 150-450 [facility] [place] Comment on above: Performed By: #### 5 7021-8 #### JACQUI Hayes ([id number]) [facility] ([facility]) [address] [place] [address] RBC (Bld) [#/Vol] 3.17 x10*6/uL Low 4.00-5.20 [facility] Comment on above: Performed By: #### 5 7021-8 #### JACQUI Hayes ([id number]) [facility] ([facility]) [address] [place] [address] WBC (Bld) [#/Vol] 13.7 x10*3/uL High 4.4-11.3 [facility] Comment on above: Performed By: #### 5 7021-8 #### JACQUI Hayes ([id number]) [facility] ([facility]) [address] [place] [address] Heparin.unfractionatedon Heparin unfractionated Chromogenic method Qn (PPP) 0.2 IU/mL Normal See Comment Below for Therapeutic Ranges [facility] [place] Comment on above: Order Comment: Obtai n 4 hours after any Heparin dosage change. Nursing to release order.The therapeutic reference range for UFH may be either 0.3-0.6 IU/mL or 0.3-0.7 IU/mL based on the clinical setting for anticoagulant therapy and the associated nomogram used. For Heparin dosing guidelines based on clinical scenario and Heparin Assay results, please refer to local Pharmacy and the [facility] Guidelines for Anticoagulation Therapy available on the [facility] intranet at: [email or web address] Performed By: #### 5 7021-8 #### JACQUI Hayes ([id number]) [facility] ([facility]) [address] [place] [address] Magnesiumon 06-23-2023 Magnesium [Mass/Vol] 2.14 mg/dL Normal 1.60-2.40 [facility] Comment on above: Performed By: #### 5 7021-8 #### JACQUI Hayes ([id number]) [facility] ([facility]) [address] [place] [address] PT and aPTT panel Coag (PPP) on 06-23-2023 aPTT Coag (PPP) [Time] 57 s High 27-38 [facility] Comment on above: Order Comment: The A PTT is no longer used for monitoring Unfractionated Heparin Therapy. For monitoring Heparin Therapy, use the Heparin Assay. Performed By: #### 5 7021-8 #### JACQUI Hayes ([id number]) [facility] ([facility]) [address] [place] [address] INR Coag (PPP) [Relative time] 2.8 High 0.9-1.1 [facility] [place] Comment on above: Order Comment: The A PTT is no longer used for monitoring Unfractionated Heparin Therapy. For monitoring Heparin Therapy, use the Heparin Assay. Performed By: #### 5 7021-8 #### JACQUI Hayes ([id number]) [facility] ([facility]) [id number] [place] [address] PT Coag (PPP) [Time] 32.2 s High 9.8-12.8 [facility] Comment on above: Order Comment: The A PTT is no longer used for monitoring Unfractionated Heparin Therapy. For monitoring Heparin Therapy, use the Heparin Assay. Performed By: #### 5 7021-8 #### JACQUI Hayes ([id number]) [facility] ([facility]) [id number] [place] [address] 83274 Renal function 2000 panelon 06-23-2023 Albumin BCP dye [Mass/Vol] 3.2 g/dL Low 3.4-5.0 [facility] Comment on above: Performed By: #### 5 7021-8 #### JACQUI Hayes ([id number]) [facility] ([facility]) [address] [address] 37767 Anion gap [Moles/Vol] 16 mmol/L Normal 10-20 [facility] Comment on above: Performed By: #### 5 7021-8 #### JACQUI Hayes ([id number]) [facility] ([facility]) [address] [place] [address] 46583 Calcium [Mass/Vol] 9.3 mg/dL Normal 8.6-10.6 [facility] Comment on above: Performed By: #### 5 7021-8 #### JACQUI Hayes ([id number]) [facility] ([facility]) [address] [place] [address] 39493 Chloride [Moles/Vol] 99 mmol/L Normal 98-107 [facility] Comment on above: Performed By: #### 5 7021-8 #### JACQUI Hayes ([id number]) [facility] ([facility]) [address] [place] [address] 10988 CO2 [Moles/Vol] 24 mmol/L Normal 21-32 [facility] Comment on above: Performed By: #### 5 7021-8 #### JACQUI Hayes ([id number]) [facility] ([facility]) [address] [place] [address] 40627 Creatinine [Mass/Vol] 0.42 mg/dL Low 0.50-1.05 [facility] Comment on above: Performed By: #### 5 7021-8 #### JACQUI Hayes ([id number]) [facility] ([facility]) [address] [place] [address] 58232 GFR/1.73 sq M.predicted MDRD (S/P/Bld) [Vol rate/Area] mL/min/{1.73_m2} Normal >60 [facility] Comment on above: Result Comment: Calc ulations of estimated GFR are performed using the 2020 CKD-EPI Study Refit equation without the race variable for the IDMS-Traceable creatinine methods. https://jasn.asnjournals.org/content/early//ASN.47436 23437 Performed By: #### 5 7021-8 #### JACQUI Hayes ([id number]) [facility] ([facility]) [address] [place] [address] 90937 Glucose [Mass/Vol] 106 mg/dL High 74-99 [facility] Comment on above: Performed By: #### 5 7021-8 #### JACQUI Hayes ([id number]) [facility] ([facility]) [address] [address] 90445 Phosphate [Mass/Vol] 3.4 mg/dL Normal 2.5-4.9 [facility] Comment on above: Result Comment: The performance characteristics of phosphorus testing in heparinized plasma have been validated by the individual laboratory site where testing is performed. Testing on heparinized plasma is not approved by the FDA; however, such approval is not necessary. Performed By: #### 5 7021-8 #### JACQUI Hayes ([id number]) [facility] ([facility]) [address] [place] [address] Potassium [Moles/Vol] 4.0 mmol/L Normal 3.5-5.3 [facility] Comment on above: Performed By: #### 5 7021-8 #### JACQUI Hayes ([id number]) [facility] ([facility]) [id number] [place] [address] 53097 Sodium [Moles/Vol] 135 mmol/L Low 136-145 [facility] Comment on above: Performed By: #### 5 7021-8 #### JACQUI Hayes ([id number]) [facility] ([facility]) [address] [place] [address] 28604 Urea nitrogen [Mass/Vol] 9 mg/dL Normal 6-23 [facility] Comment on above: Performed By: #### 5 7021-8 #### JACQUI Hayes ([id number]) [facility] ([facility]) [address] [place] [address] 50867 CBC panel Auto (Bld)on 06-22 Erythrocyte distribution width (RBC) [Ratio] 15.6 % High 11.5-14.5 [facility] Comment on above: Performed By: #### 5 7021-8 #### JACQUI Hayes ([id number]) [facility] ([facility]) [address] [place] [address] 92020 Hematocrit (Bld) [Volume fraction] 28.5 % Low 36.0-46.0 [facility] Comment on above: Performed By: #### 5 7021-8 #### JACQUI Hayes ([id number]) [facility] ([facility]) [address] [place] [address] 65059 Hemoglobin (Bld) [Mass/Vol] 8.9 g/dL Low 12.0-16.0 [facility] Comment on above: Performed By: #### 5 7021-8 #### JACQUI Hayes ([id number]) [facility] ([facility]) [address] [place] [address] 54177 MCH (RBC) [Entitic mass] 27.6 pg Normal 26.0-34.0 [facility] Comment on above: Performed By: #### 5 7021-8 #### JACQUI Hayes ([id number]) [facility] ([facility]) [address] [place] [address] 94032 MCHC (RBC) [Mass/Vol] 31.2 g/dL Low 32.0-36.0 [facility] Comment on above: Performed By: #### 5 7021-8 #### JACQUI Hayes ([id number]) [facility] ([facility]) [id number] [place] [address] 02236 MCV (RBC) [Entitic vol] 88 fL Normal 80-100 [facility] Comment on above: Performed By: #### 5 7021-8 #### JACQUI Hayes ([id number]) [facility] ([facility]) [address] [place] [address] 74313 Nucleated RBC/100 WBC (Bld) [Ratio] 0.0 /100 WBCs Normal 0.0-0.0 [facility] Comment on above: Performed By: #### 5 7021-8 #### JACQUI Hayes ([id number]) [facility] ([facility]) [address] [place] [address] 87671 Platelets (Bld) [#/Vol] 553 x10*3/uL High 150-450 [facility] Comment on above: Performed By: #### 5 7021-8 #### JACQUI Haeys ([id number]) [facility] ([facility]) [address] [place] [address] 54627 RBC (Bld) [#/Vol] 3.23 x10*6/uL Low 4.00-5.20 [facility] Comment on above: Performed By: #### 5 7021-8 #### JACQUI Hayes ([id number]) [facility] ([facility]) [address] [place] [address] 82074 WBC (Bld) [#/Vol] 13.0 x10*3/uL High 4.4-11.3 [facility] Comment on above: Performed By: #### 5 7021-8 #### JACQUI Hayes ([id number]) [facility] ([facility]) [address] [place] [address] 34384 Heparin.unfractionatedon Heparin unfractionated Chromogenic method Qn (PPP) 0.3 IU/mL Normal See Comment Below for Therapeutic Ranges [facility] Comment on above: Order Comment: When two (2) consecutive "Heparin Assay, UFH" results obtained 4 hours apart are therapeutic, obtain STAT Heparin Assay, UFH" every a.m. Nursing to release order.The therapeutic reference range for UFH may be either 0.3-0.6 IU/mL or 0.3-0.7 IU/mL based on the clinical setting for anticoagulant therapy and the associated nomogram used. For Heparin dosing guidelines based on clinical scenario and Heparin Assay results, please refer to local Pharmacy and the [facility] Guidelines for Anticoagulation Therapy available on the [facility] intranet at: [email or web address]/Pages/[email or web address]_ [email or web address]_Guidelines_for_[email or web address].aspx Performed By: #### 5 7021-8 #### JACQUI Hayes ([id number]) [facility] ([facility]) [address] [place], [place] [id number] Magnesiumon 06-22-2023 Magnesium [Mass/Vol] 2.09 mg/dL Normal 1.60-2.40 [facility] Comment on above: Performed By: #### 5 7021-8 #### JACQUI Hayes ([id number]) [facility] ([facility]) [address] [place] [address] 70057 PT and aPTT panel Coag (PPP) on 06-22-2023 aPTT Coag (PPP) [Time] 56 s High 27-38 [facility] Comment on above: Order Comment: The A PTT is no longer used for monitoring Unfractionated Heparin Therapy. For monitoring Heparin Therapy, use the Heparin Assay. Performed By: #### 5 7021-8 #### JACQUI Hayes ([id number]) [facility] ([facility]) [address] [address] 54755 INR Coag (PPP) [Relative time] 1.9 High 0.9-1.1 [facility] Comment on above: Order Comment: The A PTT is no longer used for monitoring Unfractionated Heparin Therapy. For monitoring Heparin Therapy, use the Heparin Assay. Performed By: #### 5 7021-8 #### JACQUI Hayes ([id number]) [facility] ([facility]) [address] [place] [address] 08113 PT Coag (PPP) [Time] 22.1 s High 9.8-12.8 [facility] Comment on above: Order Comment: The A PTT is no longer used for monitoring Unfractionated Heparin Therapy. For monitoring Heparin Therapy, use the Heparin Assay. Performed By: #### 5 7021-8 #### JACQUI Hayes ([id number]) [facility] ([facility]) [address] [place] [address] 99436 Renal function 2000 panelon 06-22-2023 Albumin BCP dye [Mass/Vol] 3.2 g/dL Low 3.4-5.0 [facility] Comment on above: Performed By: #### 5 7021-8 #### JACQUI Hayes ([id number]) [facility] ([facility]) [address] [place] [address] 74117 Anion gap [Moles/Vol] 16 mmol/L Normal 10-20 [facility] Comment on above: Performed By: #### 5 7021-8 #### JACQUI Hayes ([id number]) [facility] ([facility]) [address] [address] 81079 Calcium [Mass/Vol] 9.1 mg/dL Normal 8.6-10.6 [facility] Comment on above: Performed By: #### 5 7021-8 #### JACQUI Hayes ([id number]) [facility] ([facility]) [address] [place] [address] 43337 Chloride [Moles/Vol] 98 mmol/L Normal 98-107 [facility] Comment on above: Performed By: #### 5 7021-8 #### JACQUI Hayes ([id number]) [facility] ([facility]) [address] [place] [address] 93152 CO2 [Moles/Vol] 26 mmol/L Normal 21-32 [facility] Comment on above: Performed By: #### 5 7021-8 #### JACQUI Hayes ([id number]) [facility] ([facility]) [address] [place] [address] 77613 Creatinine [Mass/Vol] 0.46 mg/dL Low 0.50-1.05 [facility] Comment on above: Performed By: #### 5 7021-8 #### JACQUI Hayes ([id number]) [facility] ([facility]) [id number] [place] [address] 88172 GFR/1.73 sq M.predicted MDRD (S/P/Bld) [Vol rate/Area] mL/min/{1.73_m2} Normal >60 [facility] Comment on above: Result Comment: Calc ulations of estimated GFR are performed using the 2020 CKD-EPI Study Refit equation without the race variable for the IDMS-Traceable creatinine methods. https://jasn.asnjournals.org/content/early//ASN.99579 67098 Performed By: #### 5 7021-8 #### JACQUI Hayes ([id number]) [facility] ([facility]) [address] [place] [address] 94656 Glucose [Mass/Vol] 90 mg/dL Normal 74-99 [facility] Comment on above: Performed By: #### 5 7021-8 #### JACQUI Hayes ([id number]) [facility] ([facility]) [address] [place] [address] 69875 Phosphate [Mass/Vol] 3.7 mg/dL Normal 2.5-4.9 [facility] Comment on above: Result Comment: The performance characteristics of phosphorus testing in heparinized plasma have been validated by the individual laboratory site where testing is performed. Testing on heparinized plasma is not approved by the FDA; however, such approval is not necessary. Performed By: #### 5 7021-8 #### JACQUI Hayes ([id number]) [facility] ([facility]) [address] [place] [address] 62178 Potassium [Moles/Vol] 3.8 mmol/L Normal 3.5-5.3 [facility] Comment on above: Performed By: #### 5 7021-8 #### JACQUI Hayes ([id number]) [facility] ([facility]) [id number] [place] [address] 06479 Sodium [Moles/Vol] 136 mmol/L Normal 136-145 [facility] Comment on above: Performed By: #### 5 7021-8 #### JACQUI Hayes ([id number]) [facility] ([facility]) [address] [place] [address] 87892 Urea nitrogen [Mass/Vol] 11 mg/dL Normal 6-23 [facility] Comment on above: Performed By: #### 5 7021-8 #### JACQUI Hayes ([id number]) [facility] ([facility]) [address] [place] [address] 23307 CBC panel Auto (Bld)on 06-21 Erythrocyte distribution width (RBC) [Ratio] 15.2 % High 11.5-14.5 [facility] Comment on above: Performed By: #### 5 7021-8 #### JACQUI Hayes ([id number]) [facility] ([facility]) [address] [place] [address] 66254 Hematocrit (Bld) [Volume fraction] 24.9 % Low 36.0-46.0 [facility] Comment on above: Performed By: #### 5 7021-8 #### JACQUI Hayes ([id number]) [facility] ([facility]) [address] [place] [address] 90025 Hemoglobin (Bld) [Mass/Vol] 7.8 g/dL Low 12.0-16.0 [facility] Comment on above: Performed By: #### 5 7021-8 #### JACQUI Hayes ([id number]) [facility] ([facility]) [address] [place] [address] 97084 MCH (RBC) [Entitic mass] 27.5 pg Normal 26.0-34.0 [facility] Comment on above: Performed By: #### 5 7021-8 #### JACQUI Hayes ([id number]) [facility] ([facility]) [address] [place] [address] 65262 MCHC (RBC) [Mass/Vol] 31.3 g/dL Low 32.0-36.0 [facility] Comment on above: Performed By: #### 5 7021-8 #### JACQUI Hayes ([id number]) [facility] ([facility]) [address] [place] [address] 85914 MCV (RBC) [Entitic vol] 88 fL Normal 80-100 [facility] Comment on above: Performed By: #### 5 7021-8 #### JACQUI Hayes ([id number]) [facility] ([facility]) [address] [place] [address] 12578 Nucleated RBC/100 WBC (Bld) [Ratio] 0.0 /100 WBCs Normal 0.0-0.0 [facility] Comment on above: Performed By: #### 5 7021-8 #### JACQUI Hayes ([id number]) [facility] ([facility]) [address] [place] [address] 10855 Platelets (Bld) [#/Vol] 565 x10*3/uL High 150-450 [facility] Comment on above: Performed By: #### 5 7021-8 #### JACQUI Hayes ([id number]) [facility] ([facility]) [id number] [place] [address] 47240 RBC (Bld) [#/Vol] 2.84 x10*6/uL Low 4.00-5.20 [facility] Comment on above: Performed By: #### 5 7021-8 #### JACQUI Hayes ([id number]) [facility] ([facility]) [address] [place] [address] 53473 WBC (Bld) [#/Vol] 11.0 x10*3/uL Normal 4.4-11.3 [facility] Comment on above: Performed By: #### 5 7021-8 #### JACQUI Hayes ([id number]) [facility] ([facility]) [address] [place], [place] [id number] Heparin.unfractionatedon Heparin unfractionated Chromogenic method Qn (PPP) 0.3 IU/mL Normal See Comment Below for Therapeutic Ranges [facility] Comment on above: Order Comment: Obtai n 4 hours after any Heparin dosage change. Nursing to release order.The therapeutic reference range for UFH may be either 0.3-0.6 IU/mL or 0.3-0.7 IU/mL based on the clinical setting for anticoagulant therapy and the associated nomogram used. For Heparin dosing guidelines based on clinical scenario and Heparin Assay results, please refer to local Pharmacy and the [facility] Guidelines for Anticoagulation Therapy available on the [facility] intranet at: [email or web address]_ [email or web address]_Guidelines_for_Anticoagu.aspx Performed By: #### 5 7021-8 #### JACQUI Hayes ([id number]) [facility] ([facility]) [address] [place] [address] 67030 Heparin unfractionated Chromogenic method Qn (PPP) 0.2 IU/mL Normal See Comment Below for Therapeutic Ranges [facility] Comment on above: Order Comment: When two (2) consecutive "Heparin Assay, UFH" results obtained 4 hours apart are therapeutic, obtain STAT Heparin Assay, UFH" every a.m. Nursing to release order.The therapeutic reference range for UFH may be either 0.3-0.6 IU/mL or 0.3-0.7 IU/mL based on the clinical setting for anticoagulant therapy and the associated nomogram used. For Heparin dosing guidelines based on clinical scenario and Heparin Assay results, please refer to local Pharmacy and the [facility] Guidelines for Anticoagulation Therapy available on the [facility] intranet at: [email or web address]/[email or web address]_ [email or web address]_Guidelines_for_Anticoagu.aspx Performed By: #### 5 7021-8 #### JACQUI Hayes ([id number]) [facility] ([facility]) [address] [place] [address] 05886 Magnesiumon 06-21-2023 Magnesium [Mass/Vol] 2.09 mg/dL Normal 1.60-2.40 [facility] Comment on above: Performed By: #### 5 7021-8 #### JACQUI Hayes ([id number]) [facility] ([facility]) [address] [place] [address] 90859 PT and aPTT panel Coag (PPP) on 06-21-2023 aPTT Coag (PPP) [Time] 47 s High 27-38 [facility] Comment on above: Order Comment: The A PTT is no longer used for monitoring Unfractionated Heparin Therapy. For monitoring Heparin Therapy, use the Heparin Assay. Performed By: #### 5 7021-8 #### JACQUI Hayes ([id number]) [facility] ([facility]) [address] [place] [address] 16491 INR Coag (PPP) [Relative time] 1.7 High 0.9-1.1 [facility] Comment on above: Order Comment: The A PTT is no longer used for monitoring Unfractionated Heparin Therapy. For monitoring Heparin Therapy, use the Heparin Assay. Performed By: #### 5 7021-8 #### JACQUI Hayes ([id number]) [facility] ([facility]) [address] [place] [address] 40714 PT Coag (PPP) [Time] 19.3 s High 9.8-12.8 [facility] Comment on above: Order Comment: The A PTT is no longer used for monitoring Unfractionated Heparin Therapy. For monitoring Heparin Therapy, use the Heparin Assay. Performed By: #### 5 7021-8 #### JACQUI Hayes ([id number]) [facility] ([facility]) [address] [place] [address] 67822 Renal function 2000 panelon 06-21-2023 Albumin BCP dye [Mass/Vol] 2.9 g/dL Low 3.4-5.0 [facility] Comment on above: Performed By: #### 5 7021-8 #### JACQUI STYLES L ([id number]) [facility] ([facility]) [address] [place] [address] Anion gap [Moles/Vol] 19 mmol/L Normal 10-20 [facility] Comment on above: Performed By: #### 5 7021-8 #### JACQUI STYLES L ([id number]) [facility] ([facility]) [address] [place] [address] Calcium [Mass/Vol] 9.0 mg/dL Normal 8.6-10.6 [facility] Comment on above: Performed By: #### 5 7021-8 #### JACQUI STYLES L ([id number]) [facility] ([facility]) [address] [place] [address] 09828 Chloride [Moles/Vol] 99 mmol/L Normal 98-107 [facility] Comment on above: Performed By: #### 5 7021-8 #### JACQUI DOWNEYMOSAVAGEER L ([id number]) [facility] ([facility]) [address] [place] [address] 09095 CO2 [Moles/Vol] 23 mmol/L Normal 21-32 [facility] Comment on above: Performed By: #### 5 7021-8 #### JACQUI DOWNEYMOTZER L ([id number]) [facility] ([facility]) [id number] [place] [address] 99512 Creatinine [Mass/Vol] 0.43 mg/dL Low 0.50-1.05 [facility] Comment on above: Performed By: #### 5 7021-8 #### JACQUI DOWNEYMOTZER L ([id number]) [facility] ([facility]) [address] [place] [address] 32060 GFR/1.73 sq M.predicted MDRD (S/P/Bld) [Vol rate/Area] mL/min/{1.73_m2} Normal >60 [facility] Comment on above: Result Comment: Calc ulations of estimated GFR are performed using the 2020 CKD-EPI Study Refit equation without the race variable for the IDMS-Traceable creatinine methods. https://sn.asnjournals.org/content//ASN.01849 96302 Performed By: #### 5 7021-8 #### JACQUI STYLES L ([id number]) [facility] ([facility]) [address] [place] [address] Glucose [Mass/Vol] 92 mg/dL Normal 74-99 [facility] Comment on above: Performed By: #### 5 7021-8 #### JACQUI STYLES L ([id number]) [facility] ([facility]) [address] [place] [address] Phosphate [Mass/Vol] 3.8 mg/dL Normal 2.5-4.9 [facility] Comment on above: Result Comment: The performance characteristics of phosphorus testing in heparinized plasma have been validated by the individual laboratory site where testing is performed. Testing on heparinized plasma is not approved by the FDA; however, such approval is not necessary. Performed By: #### 5 7021-8 #### JACQUI STYLES L ([id number]) [facility] ([facility]) [address] [place] [address] Potassium [Moles/Vol] 4.0 mmol/L Normal 3.5-5.3 [facility] Comment on above: Performed By: #### 5 7021-8 #### JACQUI DOWNEYMOCELESTE L ([id number]) [facility] ([facility]) [address] [place] [address] Sodium [Moles/Vol] 137 mmol/L Normal 136-145 [facility] Comment on above: Performed By: #### 5 7021-8 #### JACQUI DOWNEYMOTZTIFFANIE L ([id number]) [facility] ([facility]) [id number] [place] [address] 34137 Urea nitrogen [Mass/Vol] 9 mg/dL Normal 6-23 [facility] Comment on above: Performed By: #### 5 7021-8 #### JACQUI DOWNEYMOTZER L ([id number]) [facility] ([facility]) [id number] [place] [address] 77392 CBC panel Auto (Bld)on 06-20 Erythrocyte distribution width (RBC) [Ratio] 15.1 % High 11.5-14.5 [facility] Comment on above: Performed By: #### 5 7021-8 #### JACQUI Hayes ([id number]) [facility] ([facility]) [address] [address] 61867 Hematocrit (Bld) [Volume fraction] 24.5 % Low 36.0-46.0 [facility] Comment on above: Performed By: #### 5 7021-8 #### JACQUI Hayes ([id number]) [facility] ([facility]) [address] [address] 75619 Hemoglobin (Bld) [Mass/Vol] 7.7 g/dL Low 12.0-16.0 [facility] Comment on above: Performed By: #### 5 7021-8 #### JACQUI Hayes ([id number]) [facility] ([facility]) [address] [address] 76954 MCH (RBC) [Entitic mass] 27.7 pg Normal 26.0-34.0 [facility] Comment on above: Performed By: #### 5 7021-8 #### JACQUI Hayes ([id number]) [facility] ([facility]) [address] [address] 73782 MCHC (RBC) [Mass/Vol] 31.4 g/dL Low 32.0-36.0 [facility] Comment on above: Performed By: #### 5 7021-8 #### JACQUI Hayes ([id number]) [facility] ([facility]) [address] [address] 21707 MCV (RBC) [Entitic vol] 88 fL Normal 80-100 [facility] Comment on above: Performed By: #### 5 7021-8 #### JACQUI Hayes ([id number]) [facility] ([facility]) [address] [address] 18115 Nucleated RBC/100 WBC (Bld) [Ratio] 0.0 /100 WBCs Normal 0.0-0.0 [facility] Comment on above: Performed By: #### 5 7021-8 #### JACQUI Hayes ([id number]) [facility] ([facility]) [id number] [place] [address] 13943 Platelets (Bld) [#/Vol] 602 x10*3/uL High 150-450 [facility] Comment on above: Performed By: #### 5 7021-8 #### JACQUI STYLES L ([id number]) [facility] ([facility]) [address] [place] [address] RBC (Bld) [#/Vol] 2.78 x10*6/uL Low 4.00-5.20 [facility] Comment on above: Performed By: #### 5 7021-8 #### JACQUI Hayes ([id number]) [facility] ([facility]) [address] [place] [address] 14196 WBC (Bld) [#/Vol] 11.1 x10*3/uL Normal 4.4-11.3 [facility] Comment on above: Performed By: #### 5 7021-8 #### JACQUI Hayes ([id number]) [facility] ([facility]) [address] [place] [address] 41741 Heparin.unfractionatedon Heparin unfractionated Chromogenic method Qn (PPP) 0.7 IU/mL Normal See Comment Below for Therapeutic Ranges [facility] Comment on above: Order Comment: Obtai n 4 hours after any Heparin dosage change. Nursing to release order.The therapeutic reference range for UFH may be either 0.3-0.6 IU/mL or 0.3-0.7 IU/mL based on the clinical setting for anticoagulant therapy and the associated nomogram used. For Heparin dosing guidelines based on clinical scenario and Heparin Assay results, please refer to local Pharmacy and the [facility] Guidelines for Anticoagulation Therapy available on the [facility] intranet at: [email or web address]_ [email or web address]_[email or web address] Performed By: #### 5 7021-8 #### JACQUI Hayes ([id number]) [facility] ([facility]) [address] [address] 37019 Magnesiumon 06-20-2023 Magnesium [Mass/Vol] 1.98 mg/dL Normal 1.60-2.40 [facility] Comment on above: Performed By: #### 5 7021-8 #### JACQUI Hayes ([id number]) [facility] ([facility]) [address] [place] [address] 14516 PT and aPTT panel Coag (PPP) on 06-20-2023 aPTT Coag (PPP) [Time] 156 s Critically high 27-38 [facility] Comment on above: Order Comment: The A PTT is no longer used for monitoring Unfractionated Heparin Therapy. For monitoring Heparin Therapy, use the Heparin Assay. Performed By: #### 5 7021-8 #### JACQUI Hayes ([id number]) [facility] ([facility]) [address] [place] [address] 26717 INR Coag (PPP) [Relative time] 1.5 High 0.9-1.1 [facility] Comment on above: Order Comment: The A PTT is no longer used for monitoring Unfractionated Heparin Therapy. For monitoring Heparin Therapy, use the Heparin Assay. Performed By: #### 5 7021-8 #### JACQUI Hayes ([id number]) [facility] ([facility]) [address] [place] [address] 50440 PT Coag (PPP) [Time] 16.6 s High 9.8-12.8 [facility] Comment on above: Order Comment: The A PTT is no longer used for monitoring Unfractionated Heparin Therapy. For monitoring Heparin Therapy, use the Heparin Assay. Performed By: #### 5 7021-8 #### JACQUI Hayes ([id number]) [facility] ([facility]) [address] [place] [address] 00404 Renal function 2000 panelon 06-20-2023 Albumin BCP dye [Mass/Vol] 2.8 g/dL Low 3.4-5.0 [facility] Comment on above: Performed By: #### 5 7021-8 #### JACQUI Hayes ([id number]) [facility] ([facility]) [id number] [place] [address] 52203 Anion gap [Moles/Vol] 14 mmol/L Normal 10-20 [facility] Comment on above: Performed By: #### 5 7021-8 #### JACQUI Hayes ([id number]) [facility] ([facility]) [address] [place] [address] 52308 Calcium [Mass/Vol] 8.9 mg/dL Normal 8.6-10.6 [facility] Comment on above: Performed By: #### 5 7021-8 #### JACQUI Hayes ([id number]) [facility] ([facility]) [address] [place] [address] 59510 Chloride [Moles/Vol] 94 mmol/L Low 98-107 [facility] Comment on above: Performed By: #### 5 7021-8 #### JACQUI Hayes ([id number]) [facility] ([facility]) [address] [place] [address] 78591 CO2 [Moles/Vol] 27 mmol/L Normal 21-32 [facility] Comment on above: Performed By: #### 5 7021-8 #### JACQUI Hayes ([id number]) [facility] ([facility]) [address] [place] [address] 98083 Creatinine [Mass/Vol] 0.44 mg/dL Low 0.50-1.05 [facility] Comment on above: Performed By: #### 5 7021-8 #### JACQUI Hayes ([id number]) [facility] ([facility]) [address] [place] [address] 25529 GFR/1.73 sq M.predicted MDRD (S/P/Bld) [Vol rate/Area] mL/min/{1.73_m2} Normal >60 [facility] Comment on above: Result Comment: Calc ulations of estimated GFR are performed using the 2020 CKD-EPI Study Refit equation without the race variable for the IDMS-Traceable creatinine methods. https://jasn.asnjournals.org/content//ASN.75588 24175 Performed By: #### 5 7021-8 #### JACQUI Hayes ([id number]) [facility] ([facility]) [address] [place] [address] Glucose [Mass/Vol] 104 mg/dL High 74-99 [facility] Comment on above: Performed By: #### 5 7021-8 #### JACQUI Hayes ([id number]) [facility] ([facility]) [address] [place] [address] 44030 Phosphate [Mass/Vol] 4.1 mg/dL Normal 2.5-4.9 [facility] Comment on above: Result Comment: The performance characteristics of phosphorus testing in heparinized plasma have been validated by the individual laboratory site where testing is performed. Testing on heparinized plasma is not approved by the FDA; however, such approval is not necessary. Performed By: #### 5 7021-8 #### JACQUI Hayes ([id number]) [facility] ([facility]) [address] [place] [address] 18519 Potassium [Moles/Vol] 3.9 mmol/L Normal 3.5-5.3 [facility] Comment on above: Performed By: #### 5 7021-8 #### JACQUI Hayes ([id number]) [facility] ([facility]) [address] [place] [address] Sodium [Moles/Vol] 131 mmol/L Low 136-145 [facility] Comment on above: Performed By: #### 5 7021-8 #### JACQUI STYLES L ([id number]) [facility] ([facility]) [address] [place] [address] 13751 Urea nitrogen [Mass/Vol] 10 mg/dL Normal 6-23 [facility] Comment on above: Performed By: #### 5 7021-8 #### JACQUI Hayes ([id number]) [facility] ([facility]) [address] [place] [address] 54903 CBC panel Auto (Bld)on 06-19 Erythrocyte distribution width (RBC) [Ratio] 14.7 % High 11.5-14.5 [facility] Comment on above: Performed By: #### 5 7021-8 #### JACQUI Hayes ([id number]) [facility] ([facility]) [address] [place] [address] 23602 Hematocrit (Bld) [Volume fraction] 24.6 % Low 36.0-46.0 [facility] Comment on above: Performed By: #### 5 7021-8 #### JACQUI Hayes ([id number]) [facility] ([facility]) [address] [place] [address] 31358 Hemoglobin (Bld) [Mass/Vol] 7.7 g/dL Low 12.0-16.0 [facility] Comment on above: Performed By: #### 5 7021-8 #### JACQUI Hayes ([id number]) [facility] ([facility]) [address] [place] [address] 20406 MCH (RBC) [Entitic mass] 28.1 pg Normal 26.0-34.0 [facility] Comment on above: Performed By: #### 5 7021-8 #### JACQUI Hayes ([id number]) [facility] ([facility]) [address] [place] [address] 03844 MCHC (RBC) [Mass/Vol] 31.3 g/dL Low 32.0-36.0 [facility] Comment on above: Performed By: #### 5 7021-8 #### JACQUI Hayes ([id number]) [facility] ([facility]) [address] [place] [address] 75779 MCV (RBC) [Entitic vol] 90 fL Normal 80-100 [facility] Comment on above: Performed By: #### 5 7021-8 #### JACQUI Hayes ([id number]) [facility] ([facility]) [address] [place] [address] Nucleated RBC/100 WBC (Bld) [Ratio] 0.0 /100 WBCs Normal 0.0-0.0 [facility] Comment on above: Performed By: #### 5 7021-8 #### JACQUI Hayes ([id number]) [facility] ([facility]) [address] [place] [address] Platelets (Bld) [#/Vol] 639 x10*3/uL High 150-450 [facility] Comment on above: Performed By: #### 5 7021-8 #### JACQUI Hayes ([id number]) [facility] ([facility]) [address] [place] [address] 46849 RBC (Bld) [#/Vol] 2.74 x10*6/uL Low 4.00-5.20 [facility] Comment on above: Performed By: #### 5 7021-8 #### JACQUI Hayes ([id number]) [facility] ([facility]) [address] [place] [address] WBC (Bld) [#/Vol] 13.1 x10*3/uL High 4.4-11.3 [facility] Comment on above: Performed By: #### 5 7021-8 #### JACQUI Hayes ([id number]) [facility] ([facility]) [address] [place] [address] 27556 Heparin.unfractionatedon Heparin unfractionated Chromogenic method Qn (PPP) 0.3 IU/mL Normal See Comment Below for Therapeutic Ranges [facility] Comment on above: Order Comment: Obtai n 4 hours after any Heparin dosage change. Nursing to release order.The therapeutic reference range for UFH may be either 0.3-0.6 IU/mL or 0.3-0.7 IU/mL based on the clinical setting for anticoagulant therapy and the associated nomogram used. For Heparin dosing guidelines based on clinical scenario and Heparin Assay results, please refer to local Pharmacy and the [facility] Guidelines for Anticoagulation Therapy available on the [facility] intranet at: [email or web address]_ [email or web address]_for_[email or web address].aspx Performed By: #### 5 7021-8 #### JACQUI Hayes ([id number]) [facility] ([facility]) [address] [place] [address] Heparin unfractionated Chromogenic method Qn (PPP) 0.7 IU/mL Normal See Comment Below for Therapeutic Ranges [facility] Comment on above: Order Comment: Obtai n 4 hours after any Heparin dosage change. Nursing to release order.The therapeutic reference range for UFH may be either 0.3-0.6 IU/mL or 0.3-0.7 IU/mL based on the clinical setting for anticoagulant therapy and the associated nomogram used. For Heparin dosing guidelines based on clinical scenario and Heparin Assay results, please refer to local Pharmacy and [facility] Guidelines for Anticoagulation Therapy available on the [facility] intranet at: [email or web address]_ [email or web address]_for_[email or web address].aspx Performed By: #### 5 7021-8 #### JACQUI Hayes ([id number]) [facility] ([facility]) [address] [place] [address] Heparin unfractionated Chromogenic method Qn (PPP) 0.1 IU/mL Normal See Comment Below for Therapeutic Ranges [facility] Comment on above: Order Comment: Obtai n [...] please refer to local Pharmacy and the [facility] Guidelines for Anticoagulation Therapy available on the [facility] intranet at: [email or web address]_ [email or web address]_Guidelines_for_[email or web address].aspx Performed By: #### 3 274-8 #### JACQUI Hayes ([id number]) [facility] ([facility]) [address] [place] [address] 20169 Magnesiumon 06-19-2023 Magnesium [Mass/Vol] 2.07 mg/dL Normal 1.60-2.40 [facility] Comment on above: Performed By: #### 5 7021-8 #### JACQUI Hayes ([id number]) [facility] ([facility]) [address] [place] [address] 09097 PT and aPTT panel Coag (PPP) on 06-19-2023 aPTT Coag (PPP) [Time] 39 s High 27-38 [facility] Comment on above: Order Comment: The A PTT is no longer used for monitoring Unfractionated Heparin Therapy. For monitoring Heparin Therapy, use the Heparin Assay. Performed By: #### 5 7021-8 #### JACQUI Hayes ([id number]) [facility] ([facility]) [address] [place] [address] 31528 INR Coag (PPP) [Relative time] 1.2 High 0.9-1.1 [facility] Comment on above: Order Comment: The A PTT is no longer used for monitoring Unfractionated Heparin Therapy. For monitoring Heparin Therapy, use the Heparin Assay. Performed By: #### 5 7021-8 #### JACQUI Hayes ([id number]) [facility] ([facility]) [address] [place] [address] 04719 PT Coag (PPP) [Time] 13.8 s High 9.8-12.8 [facility] Comment on above: Order Comment: The A PTT is no longer used for monitoring Unfractionated Heparin Therapy. For monitoring Heparin Therapy, use the Heparin Assay. Performed By: #### 5 7021-8 #### JACQUI Hayes ([id number]) [facility] ([facility]) [address] [place] [address] 36549 Renal function 2000 panelon 06-19-2023 Albumin BCP dye [Mass/Vol] 2.8 g/dL Low 3.4-5.0 [facility] Comment on above: Performed By: #### 5 7021-8 #### JACQUI STYLES L ([id number]) [facility] ([facility]) [address] [place] [address] Anion gap [Moles/Vol] 15 mmol/L Normal 10-20 [facility] Comment on above: Performed By: #### 5 7021-8 #### JACQUI DOWNEYMOSAVAGEER L ([id number]) [facility] ([facility]) [address] [place] [address] 28414 Calcium [Mass/Vol] 9.0 mg/dL Normal 8.6-10.6 [facility] Comment on above: Performed By: #### 5 7021-8 #### JACQUI STYLES L ([id number]) [facility] ([facility]) [address] [place] [address] 15781 Chloride [Moles/Vol] 93 mmol/L Low 98-107 [facility] Comment on above: Performed By: #### 5 7021-8 #### JACQUI DOWNEYMOTZER L ([id number]) [facility] ([facility]) [address] [place] [address] 48247 CO2 [Moles/Vol] 28 mmol/L Normal 21-32 [facility] Comment on above: Performed By: #### 5 7021-8 #### JACQUI DOWNEYMOSAVAGEER L ([id number]) [facility] ([facility]) [address] [place] [address] 32009 Creatinine [Mass/Vol] 0.37 mg/dL Low 0.50-1.05 [facility] Comment on above: Performed By: #### 5 7021-8 #### JACQUI SCHMOTZER L ([id number]) [facility] ([facility]) [id number] [place] [address] 68511 GFR/1.73 sq M.predicted MDRD (S/P/Bld) [Vol rate/Area] mL/min/{1.73_m2} Normal >60 [facility] Comment on above: Result Comment: Calc ulations of estimated GFR are performed using the 2020 CKD-EPI Study Refit equation without the race variable for the IDMS-Traceable creatinine methods. https://jasn.asnjournals.org/content//ASN.26798 81032 Performed By: #### 5 7021-8 #### JACQUI Hayes ([id number]) [facility] ([facility]) [address] [place] [address] Glucose [Mass/Vol] 97 mg/dL Normal 74-99 [facility] Comment on above: Performed By: #### 5 7021-8 #### JACQUI STYLES L ([id number]) [facility] ([facility]) [address] [place] [address] Phosphate [Mass/Vol] 3.5 mg/dL Normal 2.5-4.9 [facility] Comment on above: Result Comment: The performance characteristics of phosphorus testing in heparinized plasma have been validated by the individual laboratory site where testing is performed. Testing on heparinized plasma is not approved by the FDA; however, such approval is not necessary. Performed By: #### 5 7021-8 #### JACQUI Hayes ([id number]) [facility] ([facility]) [address] [place] [address] Potassium [Moles/Vol] 4.1 mmol/L Normal 3.5-5.3 [facility] Comment on above: Performed By: #### 5 7021-8 #### JACQUI STYLES L ([id number]) [facility] ([facility]) [address] [place] [address] Sodium [Moles/Vol] 132 mmol/L Low 136-145 [facility] Comment on above: Performed By: #### 5 7021-8 #### JACQUI STYLES L ([id number]) [facility] ([facility]) [address] [place] [address] Urea nitrogen [Mass/Vol] 9 mg/dL Normal 6-23 [facility] Comment on above: Performed By: #### 5 7021-8 #### JACQUI DOWNEYMOTZER L ([id number]) [facility] ([facility]) [address] [place] [address] 78021 CBC panel Auto (Bld)on 06-18 Erythrocyte distribution width (RBC) [Ratio] 14.5 % Normal 11.5-14.5 [facility] Comment on above: Performed By: #### 3 274-8 #### JACQUI Hayes ([id number]) [facility] ([facility]) [id number] [place] [address] 20168 Hematocrit (Bld) [Volume fraction] 24.3 % Low 36.0-46.0 [facility] Comment on above: Performed By: #### 3 274-8 #### JACQUI Hayes ([id number]) [facility] ([facility]) [address] [place] [address] 78791 Hemoglobin (Bld) [Mass/Vol] 7.7 g/dL Low 12.0-16.0 [facility] Comment on above: Performed By: #### 3 274-8 #### JACQUI Hayes ([id number]) [facility] ([facility]) [address] [place] [address] 89513 MCH (RBC) [Entitic mass] 27.6 pg Normal 26.0-34.0 [facility] Comment on above: Performed By: #### 3 274-8 #### JACQUI Hayes ([id number]) [facility] ([facility]) [id number] [place] [address] 02375 MCHC (RBC) [Mass/Vol] 31.7 g/dL Low 32.0-36.0 [facility] Comment on above: Performed By: #### 3 274-8 #### JACQUI Hayes ([id number]) [facility] ([facility]) [address] [place] [address] 37677 MCV (RBC) [Entitic vol] 87 fL Normal 80-100 [facility] Comment on above: Performed By: #### 3 274-8 #### JACQUI Hayes ([id number]) [facility] ([facility]) [address] [place] [address] 65468 Nucleated RBC/100 WBC (Bld) [Ratio] 0.0 /100 WBCs Normal 0.0-0.0 [facility] Comment on above: Performed By: #### 3 274-8 #### JACQUI Hayes ([id number]) [facility] ([facility]) [address] [place] [address] Platelets (Bld) [#/Vol] 653 x10*3/uL High 150-450 [facility] Comment on above: Performed By: #### 3 274-8 #### JACQUI Hayes ([id number]) [facility] ([facility]) [address] [place] [address] RBC (Bld) [#/Vol] 2.79 x10*6/uL Low 4.00-5.20 [facility] Comment on above: Performed By: #### 3 274-8 #### JACQUI Hayes ([id number]) [facility] ([facility]) [address] [place] [address] WBC (Bld) [#/Vol] 14.8 x10*3/uL High 4.4-11.3 [facility] Comment on above: Performed By: #### 3 274-8 #### JACQUI STYLES L ([id number]) [facility] ([facility]) [address] [place] [address] Heparin.unfractionatedon Heparin unfractionated Chromogenic method Qn (PPP) 0.2 IU/mL Normal See Comment Below for Therapeutic Ranges [facility] Comment on above: Order Comment: Obtai n [...] please refer to local Pharmacy and the [facility] Hospital Guidelines for Anticoagulation Therapy available on the [facility] intranet at: [email or web address]/Pages/[place]_ ospitals_Guidelines_for_Anticoagu.aspx Performed By: #### 3 274-8 #### JACQUI Hayes ([id number]) [facility] ([facility]) [address] [address] 67139 Magnesiumon 06-18-2023 Magnesium [Mass/Vol] 2.19 mg/dL Normal 1.60-2.40 [facility] Comment on above: Performed By: #### 3 274-8 #### JACQUI Hayes ([id number]) [facility] ([facility]) [address] [address] 89448 PT and aPTT panel Coag (PPP) on 06-18-2023 aPTT Coag (PPP) [Time] 41 s High 27-38 [facility] Comment on above: Order Comment: Obtai [...] please refer to local Pharmacy and the [facility] Guidelines for Anticoagulation Therapy available on the [facility] intranet at: [email or web address]://[email or web address]/Pharmacy/Pages/[place]_ ospitals_Guidelines_for_Anticoagu.aspx Performed By: #### 3 274-8 #### JACQUI Hayes ([id number]) [facility] ([facility]) [address] [address] 00963 INR Coag (PPP) [Relative time] 1.2 High 0.9-1.1 [facility] Comment on above: Order Comment: Obtai n [...] please refer to local Pharmacy and the [facility] Guidelines for Anticoagulation Therapy available on the [facility] intranet at: https://[facility]/Pharmacy/Pages/[place]_ ospitals_Guidelines_for_Anticoagu.aspx Performed By: #### 3 274-8 #### JACQUI Hayes ([id number]) [facility] ([facility]) [address] [address] 89389 PT Coag (PPP) [Time] 13.4 s High 9.8-12.8 [facility] Comment on above: [...] please refer to local Pharmacy and the [facility] Guidelines for Anticoagulation Therapy available on the [facility] intranet at: https://[facility]/Pharmacy/Pages/[place]_ ospitals_Guidelines_for_Anticoagu.aspx Performed By: #### 3 274-8 #### JACQUI Hayes ([id number]) [facility] ([facility]) [address] [address] 08340 Renal function 2000 panelon 06-18-2023 Albumin BCP dye [Mass/Vol] 2.8 g/dL Low 3.4-5.0 [facility] Comment on above: Performed By: #### 3 274-8 #### JACQUI Hayes ([id number]) [facility] ([facility]) [address] [address] 56317 Anion gap [Moles/Vol] 15 mmol/L Normal 10-20 [facility] Comment on above: Performed By: #### 3 274-8 #### JACQUI Hayes ([id number]) [facility] ([facility]) [address] [address] 94431 Calcium [Mass/Vol] 8.6 mg/dL Normal 8.6-10.6 [facility] Comment on above: Performed By: #### 3 274-8 #### JACQUI Hayes ([id number]) [facility] ([facility]) [address] [place] [address] Chloride [Moles/Vol] 91 mmol/L Low 98-107 [facility] Comment on above: Performed By: #### 3 274-8 #### JACQUI STYLES L ([id number]) [facility] ([facility]) [address] [place] [address] CO2 [Moles/Vol] 31 mmol/L Normal 21-32 [facility] Comment on above: Performed By: #### 3 274-8 #### JACQUI Hayes ([id number]) [facility] ([facility]) [address] [place] [address] 57879 Creatinine [Mass/Vol] 0.57 mg/dL Normal 0.50-1.05 [facility] Comment on above: Performed By: #### 3 274-8 #### JACQUI Hayes ([id number]) [facility] ([facility]) [address] [place] [address] 94411 GFR/1.73 sq M.predicted MDRD (S/P/Bld) [Vol rate/Area] 90 mL/min/1.73m*2 Normal >60 [facility] Comment on above: Result Comment: Calc ulations of estimated GFR are performed using the 2020 CKD-EPI Study Refit equation without the race variable for the IDMS-Traceable creatinine methods. https://jasn.asnjournals.org/content/early//ASN.20859 52235 Performed By: #### 3 274-8 #### JACQUI Hayes ([id number]) [facility] ([facility]) [address] [place] [address] 18474 Glucose [Mass/Vol] 85 mg/dL Normal 74-99 [facility] Comment on above: Performed By: #### 3 274-8 #### JACQUI Hayes ([id number]) [facility] ([facility]) [address] [address] 62781 Phosphate [Mass/Vol] 3.3 mg/dL Normal 2.5-4.9 [facility] Comment on above: Result Comment: The performance characteristics of phosphorus testing in heparinized plasma have been validated by the individual laboratory site where testing is performed. Testing on heparinized plasma is not approved by the FDA; however, such approval is not necessary. Performed By: #### 3 274-8 #### JACQUI Hayes ([id number]) [facility] ([facility]) [address] [address] 84256 Potassium [Moles/Vol] 4.2 mmol/L Normal 3.5-5.3 [facility] Comment on above: Performed By: #### 3 274-8 #### JACQUI Hayes ([id number]) [facility] ([facility]) [address] [address] 81004 Sodium [Moles/Vol] 133 mmol/L Low 136-145 [facility] Comment on above: Performed By: #### 3 274-8 #### JACQUI Hayes ([id number]) [facility] ([facility]) [address] [place] [address] 16436 Urea nitrogen [Mass/Vol] 11 mg/dL Normal 6-23 [facility] Comment on above: Performed By: #### 3 274-8 #### JACQUI Hayes ([id number]) [facility] ([facility]) [address] [place] [address] 47465 CBC panel Auto (Bld)on 06-17 Erythrocyte distribution width (RBC) [Ratio] 14.0 % Normal 11.5-14.5 [facility] Comment on above: Performed By: #### 3 274-8 #### JACQUI Hayes ([id number]) [facility] ([facility]) [address] [place] [address] 83842 Hematocrit (Bld) [Volume fraction] 24.8 % Low 36.0-46.0 [facility] Comment on above: Performed By: #### 3 274-8 #### JACQUI Hayes ([id number]) [facility] ([facility]) [address] [place] [address] Hemoglobin (Bld) [Mass/Vol] 7.9 g/dL Low 12.0-16.0 [facility] Comment on above: Performed By: #### 3 274-8 #### JACQUI Hayes ([id number]) [facility] ([facility]) [address] [place] [address] MCH (RBC) [Entitic mass] 27.7 pg Normal 26.0-34.0 [facility] Comment on above: Performed By: #### 3 274-8 #### JACQUI aHyes ([id number]) [facility] ([facility]) [address] [address] 05240 MCHC (RBC) [Mass/Vol] 31.9 g/dL Low 32.0-36.0 [facility] Comment on above: Performed By: #### 3 274-8 #### JACQUI Hayes ([id number]) [facility] ([facility]) [address] [place] [address] 96727 MCV (RBC) [Entitic vol] 87 fL Normal 80-100 [facility] Comment on above: Performed By: #### 3 274-8 #### JACQUI Hayes ([id number]) [facility] ([facility]) [address] [place] [address] 08639 Nucleated RBC/100 WBC (Bld) [Ratio] 0.0 /100 WBCs Normal 0.0-0.0 [facility] Comment on above: Performed By: #### 3 274-8 #### JACQUI Hayes ([id number]) [facility] ([facility]) [address] [place] [address] 33259 Platelets (Bld) [#/Vol] 655 x10*3/uL High 150-450 [facility] Comment on above: Performed By: #### 3 274-8 #### JACQUI Hayes ([id number]) [facility] ([facility]) [address] [place] [address] 24866 RBC (Bld) [#/Vol] 2.85 x10*6/uL Low 4.00-5.20 [facility] Comment on above: Performed By: #### 3 274-8 #### JACQUI Hayes ([id number]) [facility] ([facility]) [address] [place] [address] WBC (Bld) [#/Vol] 17.2 x10*3/uL High 4.4-11.3 [facility] Comment on above: Performed By: #### 3 274-8 #### JACQUI Hayes ([id number]) [facility] ([facility]) [address] [place] [address] Clostridioides difficile tox in A+B tcdA+tcdB geneson 06-17-2023 C. difficile toxin A+B tcdA+tcdB genes ROBY+probe Ql (Stl) Clostridioides difficile toxin A+B tcdA+tcdB genes Not Detected Normal Not Detected [facility] Comment on above: Order Comment: Obtai n [...] please refer to local Pharmacy and the [facility] Guidelines for Anticoagulation Therapy available on the [facility] intranet at: [email or web address]/Pharmacy/Pages/[place]_ ospitals_Guidelines_for_Anticoagu.aspx Performed By: #### 3 274-8 #### JACQUI Hayes ([id number]) [facility] ([facility]) [address] [place] [address] Heparin.unfractionatedon Heparin unfractionated Chromogenic method Qn (PPP) 0.3 IU/mL Normal See Comment Below for Therapeutic Ranges [facility] Comment on above: Order Comment: This assay [...] and has been validated for use at [facility]. Negative results do not preclude COVID-19 infections and should not be used as the sole basis for diagnosis, treatment, or other management decisions. Performed By: #### 9 4500-6 #### JACQUI Hayes ([id number]) [facility] ([facility]) [address] [place], [place] [id number] Magnesiumon 06-17-2023 Magnesium [Mass/Vol] 2.19 mg/dL Normal 1.60-2.40 [facility] Comment on above: Performed By: #### 3 274-8 #### JACQUI Hayes ([id number]) [facility] ([facility]) [address] [place] [address] 29271 Renal function 2000 panelon 06-17-2023 Albumin BCP dye [Mass/Vol] 3.0 g/dL Low 3.4-5.0 [facility] Comment on above: Performed By: #### 3 274-8 #### JACQUI Hayes ([id number]) [facility] ([facility]) [address] [place] [address] 42099 Anion gap [Moles/Vol] 12 mmol/L Normal 10-20 [facility] Comment on above: Performed By: #### 3 274-8 #### JACQUI Hayes ([id number]) [facility] ([facility]) [address] [address] 83390 Calcium [Mass/Vol] 8.9 mg/dL Normal 8.6-10.6 [facility] Comment on above: Performed By: #### 3 274-8 #### JACQUI Hayes ([id number]) [facility] ([facility]) [address] [place] [address] 36008 Chloride [Moles/Vol] 89 mmol/L Low 98-107 [facility] Comment on above: Performed By: #### 3 274-8 #### JACQUI Hayes ([id number]) [facility] ([facility]) [address] [place] [address] CO2 [Moles/Vol] 33 mmol/L High 21-32 [facility] Comment on above: Performed By: #### 3 274-8 #### JACQUI Hayes ([id number]) [facility] ([facility]) [address] [place] [address] Creatinine [Mass/Vol] 0.55 mg/dL Normal 0.50-1.05 [facility] Comment on above: Performed By: #### 3 274-8 #### JACQUI Hayes ([id number]) [facility] ([facility]) [address] [place] [address] GFR/1.73 sq M.predicted MDRD (S/P/Bld) [Vol rate/Area] mL/min/{1.73_m2} Normal >60 [facility] Comment on above: Result Comment: Calc ulations of estimated GFR are performed using the 2020 CKD-EPI Study Refit equation without the race variable for the IDMS-Traceable creatinine methods. https://jasn.asnjournals.org/content//ASN.77688 65434 Performed By: #### 3 274-8 #### JACQUI Hayes ([id number]) [facility] ([facility]) [address] [place] [address] Glucose [Mass/Vol] 106 mg/dL High 74-99 [facility] Comment on above: Performed By: #### 3 274-8 #### JACQUI Hayes ([id number]) [facility] ([facility]) [address] [place] [address] Phosphate [Mass/Vol] 2.8 mg/dL Normal 2.5-4.9 [facility] Comment on above: Result Comment: The performance characteristics of phosphorus testing in heparinized plasma have been validated by the individual laboratory site where testing is performed. Testing on heparinized plasma is not approved by the FDA; however, such approval is not necessary. Performed By: #### 3 274-8 #### JACQUI Hayes ([id number]) [facility] ([facility]) [address] [place] [address] 52861 Potassium [Moles/Vol] 3.4 mmol/L Low 3.5-5.3 [facility] Comment on above: Performed By: #### 3 274-8 #### JACQUI Hayes ([id number]) [facility] ([facility]) [address] [place] [address] 01890 Sodium [Moles/Vol] 131 mmol/L Low 136-145 [facility] Comment on above: Performed By: #### 3 274-8 #### JACQUI Hayes ([id number]) [facility] ([facility]) [address] [place] [address] 12918 Urea nitrogen [Mass/Vol] 10 mg/dL Normal 6-23 [facility] Comment on above: Performed By: #### 3 274-8 #### JACQUI Hayes ([id number]) [facility] ([facility]) [address] [place] [address] 75351 Bacteria identifiedon 2022 Bacteria identified Cx Nom (Bld) Test: Blood Culture Specimen Source: Peripheral Venipuncture Specimen Type: Blood culture Specimen Date: 06/16/2023 5:02 PM Result Date: 06/20/2023 6:01 PM Result Status: Final result Abnormal: No Resulting Lab: [facility] [address] [place] [address] 09640 CULTURE No growth at 4 days - FINAL REPORT Normal [facility] Comment on above: Performed By: #### 9 4500-6 #### JACQUI Hayes ([id number]) [facility] ([facility]) [address] [address] 58534 CBC panel Auto (Bld)on 06-16 Erythrocyte distribution width (RBC) [Ratio] 14.0 % Normal 11.5-14.5 [facility] Comment on above: Performed By: #### 9 4500-6 #### JACQUI Hayes ([id number]) [facility] ([facility]) [address] [place] [address] 01152 Hematocrit (Bld) [Volume fraction] 24.6 % Low 36.0-46.0 [facility] Comment on above: Performed By: #### 9 4500-6 #### JACQUI Hayes ([id number]) [facility] ([facility]) [address] [place] [address] 42321 Hemoglobin (Bld) [Mass/Vol] 8.1 g/dL Low 12.0-16.0 [facility] Comment on above: Performed By: #### 9 4500-6 #### JACQUI Hayes ([id number]) [facility] ([facility]) [address] [place] [address] 79017 MCH (RBC) [Entitic mass] 27.8 pg Normal 26.0-34.0 [facility] Comment on above: Performed By: #### 9 4500-6 #### JACQUI Hayes ([id number]) [facility] ([facility]) [address] [place] [address] 70652 MCHC (RBC) [Mass/Vol] 32.9 g/dL Normal 32.0-36.0 [facility] Comment on above: Performed By: #### 9 4500-6 #### JACQUI Hayes ([id number]) [facility] ([facility]) [address] [place] [address] 29049 MCV (RBC) [Entitic vol] 85 fL Normal 80-100 [facility] Comment on above: Performed By: #### 9 4500-6 #### JACQUI Hayes ([id number]) [facility] ([facility]) [address] [place] [address] 05499 Nucleated RBC/100 WBC (Bld) [Ratio] 0.0 /100 WBCs Normal 0.0-0.0 [facility] Comment on above: Performed By: #### 9 4500-6 #### JACQUI Hayes ([id number]) [facility] ([facility]) [address] [place] [address] 27448 Platelets (Bld) [#/Vol] 600 x10*3/uL High 150-450 [facility] Comment on above: Performed By: #### 9 4500-6 #### JACQUI Hayes ([id number]) [facility] ([facility]) [address] [place] [address] 86062 RBC (Bld) [#/Vol] 2.91 x10*6/uL Low 4.00-5.20 [facility] Comment on above: Performed By: #### 9 4500-6 #### JACQUI Hayes ([id number]) [facility] ([facility]) [address] [place] [address] 03808 WBC (Bld) [#/Vol] 19.3 x10*3/uL High 4.4-11.3 [facility] Comment on above: Performed By: #### 9 4500-6 #### JACQUI Hayes ([id number]) [facility] ([facility]) [address] [place] [address] 22998 Erythrocyte distribution width (RBC) [Ratio] 13.7 % Normal 11.5-14.5 [facility] Comment on above: Performed By: #### 2 4323-8 #### JACQUI Hayes ([id number]) [facility] ([facility]) [address] [place] [address] 97486 Hematocrit (Bld) [Volume fraction] 23.5 % Low 36.0-46.0 [facility] Comment on above: Performed By: #### 2 4323-8 #### JACQUI Hayes ([id number]) [facility] ([facility]) [address] [place] [address] 11309 Hemoglobin (Bld) [Mass/Vol] 7.8 g/dL Low 12.0-16.0 [facility] Comment on above: Performed By: #### 2 4323-8 #### JACQUI Hayes ([id number]) [facility] ([facility]) [address] [place] [address] 52790 MCH (RBC) [Entitic mass] 27.5 pg Normal 26.0-34.0 [facility] Comment on above: Performed By: #### 2 432-8 #### JACQUI Hayes ([id number]) [facility] ([facility]) [address] [place] [address] 60738 MCHC (RBC) [Mass/Vol] 33.2 g/dL Normal 32.0-36.0 [facility] Comment on above: Performed By: #### 2 432-8 #### JACQUI Hayes ([id number]) [facility] ([facility]) [address] [place] [address] 53110 MCV (RBC) [Entitic vol] 83 fL Normal 80-100 [facility] Comment on above: Performed By: #### 2 432-8 #### JACQUI Hayes ([id number]) [facility] ([facility]) [address] [place] [address] 61451 Nucleated RBC/100 WBC (Bld) [Ratio] 0.0 /100 WBCs Normal 0.0-0.0 [facility] Comment on above: Performed By: #### 2 4323-8 #### JACQUI Hayes ([id number]) [facility] ([facility]) [address] [place] [address] 61525 Platelet mean volume (Bld) [Entitic vol] 8.1 fL Normal 7.5-11.5 [facility] Comment on above: Performed By: #### 2 432-8 #### JACQUI Hayes ([id number]) [facility] ([facility]) [address] [place] [address] 37211 Platelets (Bld) [#/Vol] 603 x10*3/uL High 150-450 [facility] Comment on above: Performed By: #### 2 432-8 #### JACQUI Hayes ([id number]) [facility] ([facility]) [address] [place] [address] RBC (Bld) [#/Vol] 2.84 x10*6/uL Low 4.00-5.20 [facility] Comment on above: Performed By: #### 2 4323-8 #### JACQUI Hayes ([id number]) [facility] ([facility]) [address] [place] [address] WBC (Bld) [#/Vol] 17.4 x10*3/uL High 4.4-11.3 [facility] Comment on above: Performed By: #### 2 4323-8 #### JACQUI Hayes ([id number]) [facility] ([facility]) [address] [place] [address] Coagulation surface inducedo n 06-16-2023 aPTT Coag (PPP) [Time] 32 s Normal 27-38 [facility] Comment on above: Order Comment: This [...] and has been validated for use at [facility]. Negative results do not preclude COVID-19 infections and should not be used as the sole basis for diagnosis, treatment, or other management decisions. Performed By: #### 9 4500-6 #### JACQUI Hayes ([id number]) [facility] ([facility]) [address] [place] [address] Heparin.unfractionatedon Heparin unfractionated Chromogenic method Qn (PPP) 0.4 IU/mL Normal See Comment Below for Therapeutic Ranges [facility] Comment on above: Order Comment: This assay [...] and has been validated for use at [facility]. Negative results do not preclude COVID-19 infections and should not be used as the sole basis for diagnosis, treatment, or other management decisions. Performed By: #### 9 4500-6 #### JACQUI Hayes ([id number]) [facility] ([facility]) [address] [place] [address] Heparin unfractionated Chromogenic method Qn (PPP) 0.1 IU/mL Normal See Comment Below for Therapeutic Ranges [facility] Comment on above: Order Comment: This assay [...] and has been validated for use at [facility]. Negative results do not preclude COVID-19 infections and should not be used as the sole basis for diagnosis, treatment, or other management decisions. Performed By: #### 9 4500-6 #### JACQUI Hayes ([id number]) [facility] ([facility]) [address] [place] [address] Renal function 2000 panelon 06-16-2023 Albumin BCP dye [Mass/Vol] 2.6 g/dL Low 3.4-5.0 [facility] Comment on above: Performed By: #### 2 4323-8 #### JACQUI STYLES L ([id number]) [facility] ([facility]) [address] [place] [address] Anion gap [Moles/Vol] 15 mmol/L Normal 10-20 [facility] Comment on above: Performed By: #### 2 4323-8 #### AJCQUI STYLES L ([id number]) [facility] ([facility]) [address] [place] [address] Calcium [Mass/Vol] 8.4 mg/dL Low 8.6-10.6 [facility] Comment on above: Performed By: #### 2 4323-8 #### JACQUI STYLES L ([id number]) [facility] ([facility]) [id number] [place] [address] 79361 Chloride [Moles/Vol] 87 mmol/L Low 98-107 [facility] Comment on above: Performed By: #### 2 4323-8 #### JACQUI STYLES L ([id number]) [facility] ([facility]) [address] [place] [address] 50869 CO2 [Moles/Vol] 30 mmol/L Normal 21-32 [facility] Comment on above: Performed By: #### 2 4323-8 #### JACQUI DOWNEYMOTZER L ([id number]) [facility] ([facility]) [address] [place] [address] 57083 Creatinine [Mass/Vol] 0.71 mg/dL Normal 0.50-1.05 [facility] Comment on above: Performed By: #### 2 4323-8 #### JACQUI GAER L ([id number]) [facility] ([facility]) [address] [place] [address] 76971 GFR/1.73 sq M.predicted MDRD (S/P/Bld) [Vol rate/Area] 84 mL/min/1.73m*2 Normal >60 [facility] [place] Comment on above: Result Comment: Calc ulations of estimated GFR are performed using the 2020 CKD-EPI Study Refit equation without the race variable for the IDMS-Traceable creatinine methods. https://jasn.asnjournals.org/content//ASN.98407 65650 Performed By: #### 2 4323-8 #### JACQUI Hayes ([id number]) [facility] ([facility]) [address] [place] [address] Glucose [Mass/Vol] 95 mg/dL Normal 74-99 [facility] Comment on above: Performed By: #### 2 4323-8 #### JACQUI STYLES L ([id number]) [facility] ([facility]) [address] [place] [address] Phosphate [Mass/Vol] 3.7 mg/dL Normal 2.5-4.9 [facility] Comment on above: Result Comment: The performance characteristics of phosphorus testing in heparinized plasma have been validated by the individual laboratory site where testing is performed. Testing on heparinized plasma is not approved by the FDA; however, such approval is not necessary. Performed By: #### 2 4323-8 #### JACQUI STYLES L ([id number]) [facility] ([facility]) [address] [place] [address] Potassium [Moles/Vol] 3.6 mmol/L Normal 3.5-5.3 [facility] Comment on above: Performed By: #### 2 4323-8 #### JACQUI STYLES L ([id number]) [facility] ([facility]) [address] [place] [address] Sodium [Moles/Vol] 128 mmol/L Low 136-145 [facility] Comment on above: Performed By: #### 2 4323-8 #### JACQUI STYLES L ([id number]) [facility] ([facility]) [address] [place] [address] 65312 Urea nitrogen [Mass/Vol] 14 mg/dL Normal 6-23 [facility] [place] Comment on above: Performed By: #### 2 4323-8 #### JACQUI DOWNEYMOTZER L ([id number]) [facility] ([facility]) [address] [place] [address] 24415 TRANSTHORACIC ECHO (TTE) MONALISA Torres 06-16-2023 TRANSTHORACIC ECHO (TTE) LIMITED [facility], [address] [place], [place] [address] and TRANSTHORACIC ECHOCARDIOGRAM REPORT Patient Name: MODESTA COOK Reading Physician: [id number] Star Garnica MD Study Date: 06/16/2023 Ordering Provider: [id number] EMILY BILL MRN/PID: [id number] Fellow: Nurse: Date of /Age: 1 1940 82 years [employer] 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: Melanie Stahl RD Gender: F Additional Staff: Charbel Dobbs RD Height: 157.48 cm Admit Date: 06/08/2023 Weight: 71.22 kg Admission Status: Inpatient - Routine BSA: 1.72 m2 Department Location: [facility] Non Invasive Blood Pressure: 144 /71 mmHg Study Type: TRANSTHORACIC ECHO (TTE) LIMITED Diagnosis/ICD: Other pericardial effusion (noninflammatory)-I31.39 Indication: Pericardial effusion CPT Code: Doppler Limited-92943; Echo Limited-06700 Patient History: Pertinent History: Afib, ANNABELLE, HTN, [...] VALVE/RVSP: Normal Ranges: IVC Diam: 1.70 cm [id number] Star Garnica MD Electronically signed on 06/16/2023 at 1:58:[address] [facility] ANTIBODY IDENTIFICATIONon Blood group antibody investigation (P/RBC) [Interp] ANTI-K [facility] Comment on above: Performed By: #### 2 4323-8 #### JACQUI Hayes ([id number]) [facility] ([facility]) [address] [place] [address] CASE # [id number] [facility] Comment on above: Performed By: #### 2 4323-8 #### JACQUI Hayes ([id number]) [facility] ([facility]) [address] [place] [address] 24169 Blood type and Indirect anti body screen panel (Bld)on 06-15-2023 ABO group Nom (Bld) B [facility] Comment on above: Performed By: #### 2 4323-8 #### JACQUI Hayes ([id number]) [facility] ([facility]) [address] [place], [place] [id number] Blood group antibody screen Ql Positive [facility] Comment on above: Performed By: #### 2 4323-8 #### JACQUI Hayes ([id number]) [facility] ([facility]) [address] [place] [address] 17340 D Ag Ql (Bld) Positive Normal [facility] [place] Comment on above: Performed By: #### 2 432-8 #### JACQUI Hayes ([id number]) [facility] ([facility]) [address] [place] [address] 63168 CBC panel Auto (Bld)on 06-15 Erythrocyte distribution width (RBC) [Ratio] 13.9 % Normal 11.5-14.5 [facility] [place] Comment on above: Performed By: #### 2 432-8 #### JACQUI Hayes ([id number]) [facility] ([facility]) [address] [place] [address] 03664 Hematocrit (Bld) [Volume fraction] 21.7 % Low 36.0-46.0 [facility] [place] Comment on above: Performed By: #### 2 432-8 #### JACQUI Hayes ([id number]) [facility] ([facility]) [address] [place] [address] 46116 Hemoglobin (Bld) [Mass/Vol] 6.8 g/dL Low 12.0-16.0 [facility] [place] Comment on above: Performed By: #### 2 432-8 #### JACQUI Hayes ([id number]) [facility] ([facility]) [address] [place] [address] 23023 MCH (RBC) [Entitic mass] 26.5 pg Normal 26.0-34.0 [facility] [place] Comment on above: Performed By: #### 2 4323-8 #### JACQUI Hayes ([id number]) [facility] ([facility]) [address] [place] [address] 17887 MCHC (RBC) [Mass/Vol] 31.3 g/dL Low 32.0-36.0 [facility] Comment on above: Performed By: #### 2 4323-8 #### JACQUI Hayes ([id number]) [facility] ([facility]) [address] [place] [address] MCV (RBC) [Entitic vol] 84 fL Normal 80-100 [facility] [place] Comment on above: Performed By: #### 2 4323-8 #### JACQUI Hayes ([id number]) [facility] ([facility]) [address] [place] [address] Nucleated RBC/100 WBC (Bld) [Ratio] 0.0 /100 WBCs Normal 0.0-0.0 [facility] [place] Comment on above: Performed By: #### 2 4323-8 #### JACQUI Hayes ([id number]) [facility] ([facility]) [address] [place] [address] 73946 Platelet mean volume (Bld) [Entitic vol] 8.5 fL Normal 7.5-11.5 [facility] [place] Comment on above: Performed By: #### 2 4323-8 #### JACQUI Hayes ([id number]) [facility] ([facility]) [address] [place] [address] 89314 Platelets (Bld) [#/Vol] 642 x10*3/uL High 150-450 [facility] [place] Comment on above: Performed By: #### 2 4323-8 #### JACQUI Hayes ([id number]) [facility] ([facility]) [address] [place] [address] RBC (Bld) [#/Vol] 2.57 x10*6/uL Low 4.00-5.20 [facility] Comment on above: Performed By: #### 2 4323-8 #### JACQUI Hayes ([id number]) [facility] ([facility]) [address] [place] [address] 83308 WBC (Bld) [#/Vol] 18.0 x10*3/uL High 4.4-11.3 [facility] Comment on above: Performed By: #### 2 4323-8 #### JACQUI Hayes ([id number]) [facility] ([facility]) [address] [place] [id number] IR EMBOLIZATIONon 06-15-2023 IR EMBOLIZATION Interpreted By: [...] LEFT EXTERNAL ILIAC ARTERIOGRAM 9. PERCUTANEOUS CLOSURE [id number] INDICATION: Signs/Symptoms:embolizati on. 82-year-old woman with left rectus sheath hematoma, increasing in size with active extravasation and anemia. COMPARISON: CT abdomen pelvis 06/14/2023, 06/11/2023 ACCESSION NUMBER(S): [id number] ORDERING CLINICIAN: EMILY BILL TECHNIQUE: ATTENDING CLOTH PAINTER: Joni Blanco M.D. TECHNICAL DESCRIPTION/FINDINGS: The procedure, [...] Over the Bentson guidewire, a retrograde 5 Uzbek vascular sheath was placed. A retrograde right common femoral arteriogram was performed demonstrating arterial access at the level of the right femoral head with vascular caliber suitable for percutaneous closure device. A 5 Uzbek Sos 2 catheter was formed in the abdominal aorta and utilized to select the contralateral left common iliac artery. An 035 glidewire was advanced into the left superficial femoral artery. A 5 Uzbek glide catheter was then exchanged for the [...] SFA. The glide catheter and short 5 Uzbek sheath were removed and over the stiff Glidewire, a 6 Uzbek by 45 cm sheath was then positioned [...] iliac artery. In coaxial fashion, a 5 Uzbek C2 catheter loaded with a Renegade STC microcatheter in 016 fathom microwire were then advanced through the 6 Uzbek sheath and used to select the left [...] is persistent patency (more content not included)... [facility] Comment on above: Order Comment: This [...] and has been validated for use at [facility]. Negative results do not preclude COVID-19 infections and should not be used as the sole basis for diagnosis, treatment, or other management decisions. PATH REVIEW-IMMUNOHEMATOLOGY on 06-15-2023 PATH [id number] R30 SEE COMMENT Normal [facility] [place] Comment on above: Result Comment: ANTI BODY [...] By: #### 9 4500-6 #### JACQUI Hayes ([id number]) [facility] ([facility]) [address] [place] [address] 15360 Renal function 2000 panelon 06-15-2023 Albumin BCP dye [Mass/Vol] 2.9 g/dL Low 3.4-5.0 [facility] [place] Comment on above: Performed By: #### 2 4323-8 #### JACQUI Hayes ([id number]) [facility] ([facility]) [address] [place] [address] Anion gap [Moles/Vol] 17 mmol/L Normal 10-20 [facility] Comment on above: Performed By: #### 2 4323-8 #### JACQUI STYLES L ([id number]) [facility] ([facility]) [address] [place] [address] 84129 Calcium [Mass/Vol] 8.6 mg/dL Normal 8.6-10.6 [facility] Comment on above: Performed By: #### 2 4323-8 #### JACQUI Hayes (49491) [facility] ([facility]) [address] [place] [address] Chloride [Moles/Vol] 84 mmol/L Low 98-107 [facility] Comment on above: Performed By: #### 2 4323-8 #### JACQUI Hayes ([id number]) [facility] ([facility]) [address] [place] [address] CO2 [Moles/Vol] 29 mmol/L Normal 21-32 [facility] Comment on above: Performed By: #### 2 4323-8 #### JACQUI Hayes ([id number]) [facility] ([facility]) [address] [place] [address] 78118 Creatinine [Mass/Vol] 0.94 mg/dL Normal 0.50-1.05 [facility] Comment on above: Performed By: #### 2 4323-8 #### JACQUI Hayes (05252) [facility] ([facility]) [address] [place] [address] GFR/1.73 sq M.predicted MDRD (S/P/Bld) [Vol rate/Area] 60 mL/min/1.73m*2 Low >60 [facility] [place] Comment on above: Result Comment: Calc ulations of estimated GFR are performed using the 2020 CKD-EPI Study Refit equation without the race variable for the IDMS-Traceable creatinine methods. https://jasn.asnjournals.org/content/early//ASN.12284 92092 Performed By: #### 2 4323-8 #### JACQUI Hayes ([id number]) [facility] ([facility]) [address] [place] [address] Glucose [Mass/Vol] 154 mg/dL High 74-99 [facility] Comment on above: Performed By: #### 2 4323-8 #### JACQUI Hayes ([id number]) [facility] ([facility]) [address] [place] [address] 54538 Phosphate [Mass/Vol] 5.0 mg/dL High 2.5-4.9 [facility] Comment on above: Result Comment: The performance characteristics of phosphorus testing in heparinized plasma have been validated by the individual laboratory site where testing is performed. Testing on heparinized plasma is not approved by the FDA; however, such approval is not necessary. Performed By: #### 2 4323-8 #### JACQUI Hayes ([id number]) [facility] ([facility]) [address] [place] [address] 82036 Potassium [Moles/Vol] 3.8 mmol/L Normal 3.5-5.3 [facility] Comment on above: Performed By: #### 2 4323-8 #### JACQUI Hayes ([id number]) [facility] ([facility]) [address] [place] [address] 40941 Sodium [Moles/Vol] 126 mmol/L Low 136-145 [facility] Comment on above: Performed By: #### 2 4323-8 #### JACQUI Hayes ([id number]) [facility] ([facility]) [address] [place] [address] 25712 Urea nitrogen [Mass/Vol] 16 mg/dL Normal 6-23 [facility] [place] Comment on above: Performed By: #### 2 4323-8 #### JACQUI Hayes ([id number]) [facility] ([facility]) [address] [place] [address] 14235 CBC panel Auto (Bld)on 06-14 Erythrocyte distribution width (RBC) [Ratio] 13.5 % Normal 11.5-14.5 [facility] [place] Comment on above: Performed By: #### 2 4323-8 #### JACQUI Hayes ([id number]) [facility] ([facility]) [address] [place] [address] 67158 Hematocrit (Bld) [Volume fraction] 22.3 % Low 36.0-46.0 [facility] [place] Comment on above: Performed By: #### 2 4323-8 #### JACQUI Hayes (64305) [facility] ([facility]) [address] [place] [address] 58773 Hemoglobin (Bld) [Mass/Vol] 7.1 g/dL Low 12.0-16.0 [facility] [place] Comment on above: Performed By: #### 2 4323-8 #### JACQUI Hayes ([id number]) [facility] ([facility]) [address] [place] [address] 73104 MCH (RBC) [Entitic mass] 27.1 pg Normal 26.0-34.0 [facility] [place] Comment on above: Performed By: #### 2 432-8 #### JACQUI Hayes ([id number]) [facility] ([facility]) [address] [place] [address] 62755 MCHC (RBC) [Mass/Vol] 31.8 g/dL Low 32.0-36.0 [facility] Comment on above: Performed By: #### 2 4323-8 #### JACQUI Hayes ([id number]) [facility] ([facility]) [address] [place] [address] 07992 MCV (RBC) [Entitic vol] 85 fL Normal 80-100 [facility] [place] Comment on above: Performed By: #### 2 4323-8 #### JACQUI Hayes ([id number]) [facility] ([facility]) [address] [place] [address] 11825 Nucleated RBC/100 WBC (Bld) [Ratio] 0.0 /100 WBCs Normal 0.0-0.0 [facility] [place] Comment on above: Performed By: #### 2 4323-8 #### JACQUI Hayes ([id number]) [facility] ([facility]) [address] [place] [address] 84518 Platelet mean volume (Bld) [Entitic vol] 8.3 fL Normal 7.5-11.5 [facility] [place] Comment on above: Performed By: #### 2 4323-8 #### JACQUI Hayes ([id number]) [facility] ([facility]) [address] [place] [address] 45492 Platelets (Bld) [#/Vol] 655 x10*3/uL High 150-450 [facility] [place] Comment on above: Performed By: #### 2 4323-8 #### JACQUI Hayes (18753) [facility] ([facility]) [address] [place] [address] 88260 RBC (Bld) [#/Vol] 2.62 x10*6/uL Low 4.00-5.20 [facility] Comment on above: Performed By: #### 2 4323-8 #### JACQUI Hayes ([id number]) [facility] ([facility]) [address] [place] [address] 85024 WBC (Bld) [#/Vol] 20.4 x10*3/uL High 4.4-11.3 [facility] Comment on above: Performed By: #### 2 4323-8 #### JCAQUI Hayes ([id number]) [facility] ([facility]) [address] [place] [address] 91227 Erythrocyte distribution width (RBC) [Ratio] 13.6 % Normal 11.5-14.5 [facility] [place] Comment on above: Performed By: #### 1 9123-9 #### JACQUI Hayes ([id number]) [facility] ([facility]) [address] [place] [address] 38134 Hematocrit (Bld) [Volume fraction] 24.0 % Low 36.0-46.0 [facility] [place] Comment on above: Performed By: #### 1 9123-9 #### JACQUI STYLES L (75458) [facility] ([facility]) [address] [place] [address] 44382 Hemoglobin (Bld) [Mass/Vol] 7.7 g/dL Low 12.0-16.0 [facility] [place] Comment on above: Performed By: #### 1 9123-9 #### JACQUI Hayes (38302) [facility] ([facility]) [address] [place] [address] MCH (RBC) [Entitic mass] 26.6 pg Normal 26.0-34.0 [facility] [place] Comment on above: Performed By: #### 1 9123-9 #### JACQUI Hayes (18368) [facility] ([facility]) [address] [place] [address] 69306 MCHC (RBC) [Mass/Vol] 32.1 g/dL Normal 32.0-36.0 [facility] Comment on above: Performed By: #### 1 9123-9 #### JACQUI Hayes ([id number]) [facility] ([facility]) [address] [place] [address] 96496 MCV (RBC) [Entitic vol] 83 fL Normal 80-100 [facility] [place] Comment on above: Performed By: #### 1 9123-9 #### JACQUI Hayes ([id number]) [facility] ([facility]) [address] [place] [address] 07426 Nucleated RBC/100 WBC (Bld) [Ratio] 0.0 /100 WBCs Normal 0.0-0.0 [facility] [place] Comment on above: Performed By: #### 1 9123-9 #### JACQUI Hayes ([id number]) [facility] ([facility]) [address] [place] [address] 39464 Platelet mean volume (Bld) [Entitic vol] 8.3 fL Normal 7.5-11.5 [facility] [place] Comment on above: Performed By: #### 1 9123-9 #### JACQUI Hayes ([id number]) [facility] ([facility]) [address] [place] [address] 38783 Platelets (Bld) [#/Vol] 658 x10*3/uL High 150-450 [facility] [place] Comment on above: Performed By: #### 1 9123-9 #### JACQUI Hayes ([id number]) [facility] ([facility]) [address] [place] [address] 18071 RBC (Bld) [#/Vol] 2.89 x10*6/uL Low 4.00-5.20 [facility] Comment on above: Performed By: #### 1 9123-9 #### JACQUI Hayes ([id number]) [facility] ([facility]) [address] [place] [address] WBC (Bld) [#/Vol] 18.1 x10*3/uL High 4.4-11.3 [facility] Comment on above: Performed By: #### 1 9123-9 #### JACQUI GAER L (45096) [facility] ([facility]) [address] [place] [address] CT ABDOMEN PELVIS W IV CONTR Shantell 06-14-2023 CT ABDOMEN PELVIS W IV CONTRAST Interpreted By: Leigha Mera and Ebai Jerky STUDY: CT ABDOMEN PELVIS W IV CONTRAST; 06/14/2023 2:01 pm INDICATION: Signs/Symptoms:increased abdominal pain iso of abdominal hematoma , concern for bleed. COMPARISON: CT abdomen pelvis 06/11/2028. ACCESSION NUMBER(S): [id number] ORDERING CLINICIAN: EMILY BILL TECHNIQUE: CT of [...] cardiomegaly with stable pericardial effusion. Partially visualized wvxz-[id number]-pjxnpjzv coronary artery calcifications. Stable small hiatal hernia [...] as stated. This study was interpreted at [facility] [place], [place], [place]. Signed by: Leigha Mera 06/15/2023 7:01 PM Dictation workstation: [id number] Normal [facility] [place] MODIFIED BARIUM SWALLOW S Kell 06-14-2023 [place] MODIFIED BARIUM SWALLOW STUDY Interpreted By: Hemanth Rosales and [place] Ellen STUDY: [place] MODIFIED BARIUM SWALLOW STUDY;; 06/14/2023 8:31 am INDICATION: Signs/Symptoms:dysphagia. COMPARISON: Chest radiograph dated 06/12/2023. ACCESSION NUMBER(S): [id number] ORDERING CLINICIAN: EMILY BILL TECHNIQUE: MBSS completed. Informed verbal consent obtained prior to completion of exam. Trials of thin, nectar thick, puree, and regular solids given. Fluoroscopy time : 1.3 minutes. RETAIL ANALYTICS MANAGER: Dodie Messer MS,[facility]-RETAIL ANALYTICS MANAGER Phone/Pager: [phone]/secure chat SPEECH FINDINGS: Reason for referral: To evaluate swallow function prior to PO recommendations. Patient hx: Modesta Cook is a 82 y.o. female with PMHx of persistent A-fib not on anticoagulation, ANNABELLE, HTN, DLD, low back pain, chronic thrombocytopenia since April 2023, who presented with SOB and fatigue in the setting of recent onset Afib and pericardial effusion. The patient was transferred from [facility] for pericardial effusion and concern [...] plan: Repeat MBSS if pts' swallow declines. RETAIL ANALYTICS MANAGER impressions with severity rating: MBSS completed once [...] further evaluate esophageal dysfunction. Thin Liquids (MBSS) Rosenbek's Penetration Aspiration Scale, Thin Liquids (MBSS): 2. PENETRATION that CLEARS - contrast enter airway, above vocal cords, no residue [place] Thick Liquids (MBSS) Rosenbek's Penetration Aspiration Scale, [place] thick liquids (MBSS): 1. NO ASPIRATION & [...] section of this report signed by Dodie Messer MS,[facility]-RETAIL ANALYTICS MANAGER on 06/14/2023 at 9:08 am. RADIOLOGY FINDINGS: Multilevel degenerative changes of the visualized spine with grade 1 anterolisthesis of C4-C5 and anterior osteophytes at C4-5 and C5-C6 that appear to cause minimal posterior impingement on the esophagus. Esophageal sweep images are nondiagnostic. Radiology section of this report signed by Dr. Hemanth Rosales. IMPRESSION: Swallow study as dictated by RETAIL ANALYTICS MANAGER above. 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 Esophageal sweep images are nondiagnostic; dedicated esophagram may better evaluate if clinically indicated. I personally reviewed the images/study and I agree with the findings as stated by Dr. Kalen Buck. This study was interpreted at [facility] [place], [place], [place]. S (more content not included)... Normal [facility] Heparin.unfractionatedon Heparin unfractionated Chromogenic method Qn (PPP) 0.7 IU/mL Normal See Comment Below for Therapeutic Ranges [facility] Comment on above: Order Comment: Obtai n 4 hours after any Heparin dosage change. Nursing to release order.The therapeutic reference range for UFH may be either 0.3-0.6 IU/mL or 0.3-0.7 IU/mL based on the clinical setting for anticoagulant therapy and the associated nomogram used. For Heparin dosing guidelines based on clinical scenario and Heparin Assay results, please refer to local Pharmacy and the [facility] Guidelines for Anticoagulation Therapy available on the [facility] intranet at: [email or web address]_ [email or web address]_Guidelines_for_[email or web address].[email or web address] Performed By: #### 1 9123-9 #### JACQUI Hayes ([id number]) [facility] ([facility]) [address] [address] 00047 Magnesiumon 06-14-2023 Magnesium [Mass/Vol] 2.17 mg/dL Normal 1.60-2.40 [facility] Comment on above: Performed By: #### 1 9123-9 #### JACQUI Hayes ([id number]) [facility] ([facility]) [address] [address] 24766 Renal function 2000 panelon 06-14-2023 Albumin BCP dye [Mass/Vol] 2.7 g/dL Low 3.4-5.0 [facility] [place] Comment on above: Performed By: #### 1 9123-9 #### JACQUI STYLES L ([id number]) [facility] ([facility]) [address] [place] [address] Anion gap [Moles/Vol] 14 mmol/L Normal 10-20 [facility] Comment on above: Performed By: #### 1 9123-9 #### JACQUI STYLES L ([id number]) [facility] ([facility]) [address] [place] [address] 02771 Calcium [Mass/Vol] 7.8 mg/dL Low 8.6-10.6 [facility] Comment on above: Performed By: #### 1 9123-9 #### JACQUI STYLES L ([id number]) [facility] ([facility]) [address] [place] [address] 68969 Chloride [Moles/Vol] 87 mmol/L Low 98-107 [facility] Comment on above: Performed By: #### 1 9123-9 #### JACQUI STYLES L ([id number]) [facility] ([facility]) [address] [place] [address] CO2 [Moles/Vol] 30 mmol/L Normal 21-32 [facility] Comment on above: Performed By: #### 1 9123-9 #### JACQUI STYLES L ([id number]) [facility] ([facility]) [address] [place] [address] 33427 Creatinine [Mass/Vol] 0.46 mg/dL Low 0.50-1.05 [facility] Comment on above: Performed By: #### 1 9123-9 #### JACQUI STYLES L ([id number]) [facility] ([facility]) [address] [place] [address] 91911 GFR/1.73 sq M.predicted MDRD (S/P/Bld) [Vol rate/Area] mL/min/{1.73_m2} Normal >60 [facility] [place] Comment on above: Result Comment: Calc ulations of estimated GFR are performed using the 2021 CKD-EPI Study Refit equation without the race variable for the IDMS-Traceable creatinine methods. https://jasn.asnjournals.org/content//ASN.44297 53734 Performed By: #### 1 9123-9 #### JACQUI Hayes ([id number]) [facility] ([facility]) [address] [place] [address] Glucose [Mass/Vol] 114 mg/dL High 74-99 [facility] Comment on above: Performed By: #### 1 9123-9 #### JACQUI Hayes ([id number]) [facility] ([facility]) [address] [place] [address] 32346 Phosphate [Mass/Vol] 3.1 mg/dL Normal 2.5-4.9 [facility] Comment on above: Result Comment: The performance characteristics of phosphorus testing in heparinized plasma have been validated by the individual laboratory site where testing is performed. Testing on heparinized plasma is not approved by the FDA; however, such approval is not necessary. Performed By: #### 1 9123-9 #### JACQUI Hayes ([id number]) [facility] ([facility]) [id number] [place] [address] 22142 Potassium [Moles/Vol] 3.6 mmol/L Normal 3.5-5.3 [facility] Comment on above: Performed By: #### 1 9123-9 #### JACQUI Hayes ([id number]) [facility] ([facility]) [address] [place] [address] 44786 Sodium [Moles/Vol] 127 mmol/L Low 136-145 [facility] Comment on above: Performed By: #### 1 9123-9 #### JACQUI Hayes ([id number]) [facility] ([facility]) [address] [place] [address] 49927 Urea nitrogen [Mass/Vol] 8 mg/dL Normal 6-23 [facility] [place] Comment on above: Performed By: #### 1 9123-9 #### JACQUI Hayes ([id number]) [facility] ([facility]) [address] [place] [address] 45466 ANTIBODY IDENTIFICATIONon Blood group antibody investigation (P/RBC) [Interp] ANTI-K [facility] Comment on above: Performed By: #### 1 9123-9 #### JACQUI Hayes ([id number]) [facility] ([facility]) [address] [place] [address] CASE # [id number] [facility] Comment on above: Performed By: #### 1 9123-9 #### JACQUI Hayes ([id number]) [facility] ([facility]) [address] [place], [place] [phone] Blood type and Indirect anti body screen panel (Bld)on 06-13-2023 ABO group Nom (Bld) B [facility] Comment on above: Performed By: #### 1 9123-9 #### JACQUI Hayes ([id number]) [facility] ([facility]) [address] [place], [place] [phone] Blood group antibody screen Ql Positive [facility] Comment on above: Performed By: #### 1 9123-9 #### JACQUI Hayes ([id number]) [facility] ([facility]) [address] [place], [place] [phone] D Ag Ql (Bld) Positive [facility] Comment on above: Result Comment: 2nd ABO test required. Order and Collect VERAB Performed By: #### 1 9123-9 #### JACQUI Hayes ([id number]) [facility] ([facility]) [address] [place] [address] 59027 CBC W Auto Differential pane l (Bld)on 06-13-2023 Basophils (Bld) [#/Vol] 0.07 x10*3/uL Normal 0.00-0.10 [facility] [place] Comment on above: Performed By: #### 3 0934-4 #### JACQUI Hayes ([id number]) [facility] ([facility]) [address] [place] [address] Basophils/100 WBC (Bld) 0.4 % Normal 0.0-2.0 [facility] Comment on above: Performed By: #### 3 0934-4 #### JACQUI Hayes ([id number]) [facility] ([facility]) [address] [place] [address] 48427 Eosinophils (Bld) [#/Vol] 0.30 x10*3/uL Normal 0.00-0.40 [facility] [place] Comment on above: Performed By: #### 3 34-4 #### JACQUI Hayes ([id number]) [facility] ([facility]) [address] [place] [address] 56952 Eosinophils/100 WBC (Bld) 1.5 % Normal 0.0-6.0 [facility] [place] Comment on above: Performed By: #### 3 0934-4 #### JACQUI Hayes ([id number]) [facility] ([facility]) [address] [address] 34754 Erythrocyte distribution width (RBC) [Ratio] 13.4 % Normal 11.5-14.5 [facility] [place] Comment on above: Performed By: #### 3 0934-4 #### JACQUI Hayes ([id number]) [facility] ([facility]) [address] [address] 86628 Hematocrit (Bld) [Volume fraction] 23.1 % Low 36.0-46.0 [facility] Comment on above: Performed By: #### 3 0934-4 #### JACQUI Hayes ([id number]) [facility] ([facility]) [address] [place] [address] 83366 Hemoglobin (Bld) [Mass/Vol] 7.5 g/dL Low 12.0-16.0 [facility] [place] Comment on above: Performed By: #### 3 0934-4 #### JACQUI Hayes ([id number]) [facility] ([facility]) [address] [place] [address] 16674 Immature granulocytes (Bld) [#/Vol] 0.21 x10*3/uL Normal 0.00-0.50 [facility] [place] Comment on above: Performed By: #### 3 0934-4 #### JACQUI Hayes ([id number]) [facility] ([facility]) [address] [place] [address] 39840 Immature granulocytes/100 WBC (Bld) 1.1 % High 0.0-0.9 [facility] [place] Comment on above: Result Comment: Lizzie ture Granulocyte Count (IG) includes promyelocytes, myelocytes and metamyelocytes but does not include bands. Percent differential counts (%) should be interpreted in the context of the absolute cell counts (cells/UL). Performed By: #### 3 0934-4 #### JACQUI Hayes ([id number]) [facility] ([facility]) [address] [place] [address] 55892 Lymphocytes (Bld) [#/Vol] 2.57 x10*3/uL Normal 0.80-3.00 [facility] [place] Comment on above: Performed By: #### 3 34-4 #### JACQUI Hayes ([id number]) [facility] ([facility]) [address] [place] [address] 37601 Lymphocytes/100 WBC (Bld) 13.1 % Normal 13.0-44.0 [facility] [place] Comment on above: Performed By: #### 3 0934-4 #### JACQUI Hayes ([id number]) [facility] ([facility]) [address] [place] [address] 38067 MCH (RBC) [Entitic mass] 26.9 pg Normal 26.0-34.0 [facility] [place] Comment on above: Performed By: #### 3 0934-4 #### JACQUI Hayes ([id number]) [facility] ([facility]) [address] [place] [address] 60530 MCHC (RBC) [Mass/Vol] 32.5 g/dL Normal 32.0-36.0 [facility] Comment on above: Performed By: #### 3 0934-4 #### JACQUI Hayes ([id number]) [facility] ([facility]) [address] [place] [address] MCV (RBC) [Entitic vol] 83 fL Normal 80-100 [facility] [place] Comment on above: Performed By: #### 3 0934-4 #### JACQUI Hayes ([id number]) [facility] ([facility]) [address] [place] [address] 75684 Monocytes (Bld) [#/Vol] 1.64 x10*3/uL High 0.05-0.80 [facility] Comment on above: Performed By: #### 3 34-4 #### JACQUI Hayes ([id number]) [facility] ([facility]) [address] [place] [address] 42436 Monocytes/100 WBC (Bld) 8.4 % Normal 2.0-10.0 [facility] Comment on above: Performed By: #### 3 34-4 #### JACQUI Hayes ([id number]) [facility] ([facility]) [address] [place] [address] 78451 Neutrophils (Bld) [#/Vol] 14.76 x10*3/uL High 1.60-5.50 [facility] Comment on above: Result Comment: Perc ent differential counts (%) should be interpreted in the context of the absolute cell counts (cells/uL). Performed By: #### 3 0934-4 #### JACQUI Hayes ([id number]) [facility] ([facility]) [address] [place] [address] Neutrophils/100 WBC (Bld) 75.5 % Normal 40.0-80.0 [facility] [place] Comment on above: Performed By: #### 3 0934-4 #### JACQUI Hayes ([id number]) [facility] ([facility]) [address] [place] [address] 41849 Nucleated RBC/100 WBC (Bld) [Ratio] 0.0 /100 WBCs Normal 0.0-0.0 [facility] [place] Comment on above: Performed By: #### 3 0934-4 #### JACQUI Hayes ([id number]) [facility] ([facility]) [address] [place] [address] Platelet mean volume (Bld) [Entitic vol] 8.8 fL Normal 7.5-11.5 [facility] [place] Comment on above: Performed By: #### 3 0934-4 #### JACQUI Hayes ([id number]) [facility] ([facility]) [address] [place] [address] Platelets (Bld) [#/Vol] 604 x10*3/uL High 150-450 [facility] Comment on above: Performed By: #### 3 0934-4 #### JACQUI Hayes ([id number]) [facility] ([facility]) [address] [place] [address] RBC (Bld) [#/Vol] 2.79 x10*6/uL Low 4.00-5.20 [facility] Comment on above: Performed By: #### 3 0934-4 #### JACQUI Hayes ([id number]) [facility] ([facility]) [address] [place] [address] WBC (Bld) [#/Vol] 19.6 x10*3/uL High 4.4-11.3 [facility] Comment on above: Performed By: #### 3 0934-4 #### JACQUI Hayes ([id number]) [facility] ([facility]) [address] [place] [address] Heparin.unfractionatedon Heparin unfractionated Chromogenic method Qn (PPP) 0.4 IU/mL Normal See Comment Below for Therapeutic Ranges [facility] Comment on above: Order Comment: Obtai n 4 hours after any Heparin dosage change. Nursing to release order.The therapeutic reference range for UFH may be either 0.3-0.6 IU/mL or 0.3-0.7 IU/mL based on the clinical setting for anticoagulant therapy and the associated nomogram used. For Heparin dosing guidelines based on clinical scenario and Heparin Assay results, please refer to local Pharmacy and the [facility] Guidelines for Anticoagulation Therapy available on the [facility] intranet at: [email or web address]_ [email or web address]_for_[email or web address].[email or web address] Performed By: #### 1 9123-9 #### JACQUI Hayes ([id number]) [facility] ([facility]) [address] [place] [address] Magnesiumon 06-13-2023 Magnesium [Mass/Vol] 1.88 mg/dL Normal 1.60-2.40 [facility] Comment on above: Performed By: #### 1 9123-9 #### JACQUI Hayes ([id number]) [facility] ([facility]) [address] [place], [place] [address] PATH REVIEW-IMMUNOHEMATOLOGY on 06-13-2023 PATH [id number] SEE COMMENT Normal [facility] Comment on above: Result Comment: ANTI BODY [...] By: #### 2 4323-8 #### JACQUI Hayes ([id number]) [facility] ([facility]) [address] [place] [address] Renal function 2000 panelon 06-13-2023 Albumin BCP dye [Mass/Vol] 2.6 g/dL Low 3.4-5.0 [facility] Comment on above: Performed By: #### 1 9123-9 #### JACQUI Hayes ([id number]) [facility] ([facility]) [address] [place] [address] 99818 Anion gap [Moles/Vol] 15 mmol/L Normal 10-20 [facility] Comment on above: Performed By: #### 1 9123-9 #### JACQUI GAER L ([id number]) [facility] ([facility]) [address] [place] [address] Calcium [Mass/Vol] 7.6 mg/dL Low 8.6-10.6 [facility] Comment on above: Performed By: #### 1 9123-9 #### JACQUI DOWNEYMOTZER L ([id number]) [facility] ([facility]) [address] [place] [address] Chloride [Moles/Vol] 82 mmol/L Low 98-107 [facility] Comment on above: Performed By: #### 1 9123-9 #### JACQUI DONWEYMOTZER L ([id number]) [facility] ([facility]) [address] [place] [address] 30452 CO2 [Moles/Vol] 28 mmol/L Normal 21-32 [facility] Comment on above: Performed By: #### 1 9123-9 #### JACQUI STYLES L ([id number]) [facility] ([facility]) [address] [place] [address] Creatinine [Mass/Vol] 0.47 mg/dL Low 0.50-1.05 [facility] Comment on above: Performed By: #### 1 9123-9 #### JACQUI FALLONTZER L ([id number]) [facility] ([facility]) [address] [place] [address] 38012 GFR/1.73 sq M.predicted MDRD (S/P/Bld) [Vol rate/Area] mL/min/{1.73_m2} Normal >60 [facility] Comment on above: Result Comment: Calc ulations of estimated GFR are performed using the 2020 CKD-EPI Study Refit equation without the race variable for the IDMS-Traceable creatinine methods. https://jasn.asnjournals.org/content//ASN.80745 83536 Performed By: #### 1 9123-9 #### JACQUI STYLES L ([id number]) [facility] ([facility]) [address] [place] [address] Glucose [Mass/Vol] 202 mg/dL High 74-99 [facility] Comment on above: Performed By: #### 1 9123-9 #### JACQUI Hayes ([id number]) [facility] ([facility]) [address] [place] [address] Phosphate [Mass/Vol] 3.9 mg/dL Normal 2.5-4.9 [facility] Comment on above: [...] #### 1 9123-9 #### JACQUI STYLES L ([id number]) [facility] ([facility]) [address] [place] [address] Potassium [Moles/Vol] 3.6 mmol/L Normal 3.5-5.3 [facility] Comment on above: Result Comment: MILD HEMOLYSIS DETECTED. The result may be falsely elevated due to hemolysis or other interferents. Clinical correlation is recommended. Repeat testing may be considered. Performed By: #### 1 9123-9 #### JACQUI STYLES L ([id number]) [facility] ([facility]) [address] [place] [address] Sodium [Moles/Vol] 121 mmol/L Low 136-145 [facility] Comment on above: Performed By: #### 1 9123-9 #### JACQUI STYLES L ([id number]) [facility] ([facility]) [address] [place] [address] Urea nitrogen [Mass/Vol] 7 mg/dL Normal 6-23 [facility] Comment on above: Performed By: #### 1 9123-9 #### JACQUI Hayes ([id number]) [facility] ([facility]) [address] [address] 81830 CBC W Auto Differential pane l (Bld)on 06-12-2023 Basophils (Bld) [#/Vol] 0.05 x10*3/uL Normal 0.00-0.10 [facility] Comment on above: Performed By: #### 3 0934-4 #### JACQUI Hayes ([id number]) [facility] ([facility]) [address] [place] [address] 26444 Basophils/100 WBC (Bld) 0.3 % Normal 0.0-2.0 [facility] Comment on above: Performed By: #### 3 0934-4 #### JACQUI Hayes ([id number]) [facility] ([facility]) [address] [place] [address] 72309 Eosinophils (Bld) [#/Vol] 0.43 x10*3/uL High 0.00-0.40 [facility] Comment on above: Performed By: #### 3 34-4 #### JACQUI Hayes ([id number]) [facility] ([facility]) [address] [place] [address] 54316 Eosinophils/100 WBC (Bld) 2.5 % Normal 0.0-6.0 [facility] Comment on above: Performed By: #### 3 0934-4 #### JACQUI Hayes ([id number]) [facility] ([facility]) [address] [place] [address] 10426 Immature granulocytes (Bld) [#/Vol] 0.24 x10*3/uL Normal 0.00-0.50 [facility] Comment on above: Performed By: #### 3 0934-4 #### JACQUI Hayes ([id number]) [facility] ([facility]) [address] [place] [address] 28901 Immature granulocytes/100 WBC (Bld) 1.4 % High 0.0-0.9 [facility] Comment on above: Result Comment: Lizzie ture Granulocyte Count (IG) includes promyelocytes, myelocytes and metamyelocytes but does not include bands. Percent differential counts (%) should be interpreted in the context of the absolute cell counts (cells/UL). Performed By: #### 3 0934-4 #### JACQUI Hayes ([id number]) [facility] ([facility]) [address] [place] [address] Lymphocytes (Bld) [#/Vol] 2.52 x10*3/uL Normal 0.80-3.00 [facility] Comment on above: Performed By: #### 3 0934-4 #### JACQUI Hayes ([id number]) [facility] ([facility]) [address] [place] [address] 57274 Lymphocytes/100 WBC (Bld) 14.5 % Normal 13.0-44.0 [facility] Comment on above: Performed By: #### 3 0934-4 #### JACQUI STYLES L ([id number]) [facility] ([facility]) [address] [place] [address] 28931 Monocytes (Bld) [#/Vol] 1.57 x10*3/uL High 0.05-0.80 [facility] Comment on above: Performed By: #### 3 0934-4 #### JACQUI Hayes ([id number]) [facility] ([facility]) [address] [place] [address] 92981 Monocytes/100 WBC (Bld) 9.0 % Normal 2.0-10.0 [facility] Comment on above: Performed By: #### 3 0934-4 #### JACQUI STYLES L ([id number]) [facility] ([facility]) [address] [place] [address] Neutrophils (Bld) [#/Vol] 12.60 x10*3/uL High 1.60-5.50 [facility] Comment on above: Result Comment: Perc ent differential counts (%) should be interpreted in the context of the absolute cell counts (cells/uL). Performed By: #### 3 0934-4 #### JACQUI Hayes ([id number]) [facility] ([facility]) [address] [place] [address] 18896 Neutrophils/100 WBC (Bld) 72.3 % Normal 40.0-80.0 [facility] Comment on above: Performed By: #### 3 0934-4 #### JACQUI Hayes ([id number]) [facility] ([facility]) [address] [place] [id number] Complete blood count panelon 06-12-2023 Erythrocyte distribution width (RBC) [Ratio] 13.2 % Normal 11.5-14.5 [facility] Comment on above: Performed By: #### 3 34-4 #### JACQUI Hayes ([id number]) [facility] ([facility]) [address] [place] [id number] Hematocrit (Bld) [Volume fraction] 23.5 % Low 36.0-46.0 [facility] [place] Comment on above: Performed By: #### 3 34-4 #### JACQUI Hayes ([id number]) [facility] ([facility]) [address] [address] 64433 Hemoglobin (Bld) [Mass/Vol] 8.0 g/dL Low 12.0-16.0 [facility] [place] Comment on above: Performed By: #### 3 0934-4 #### JACQUI Hayes ([id number]) [facility] ([facility]) [address] [place] [address] 02834 MCH (RBC) [Entitic mass] 26.6 pg Normal 26.0-34.0 [facility] [place] Comment on above: Performed By: #### 3 0934-4 #### JACQUI Hayes ([id number]) [facility] ([facility]) [address] [address] 59038 MCHC (RBC) [Mass/Vol] 34.0 g/dL Normal 32.0-36.0 [facility] Comment on above: Performed By: #### 3 0934-4 #### JACQUI Hayes ([id number]) [facility] ([facility]) [address] [place] [address] MCV (RBC) [Entitic vol] 78 fL Low 80-100 [facility] [place] Comment on above: Performed By: #### 3 0934-4 #### JACQUI Hayes ([id number]) [facility] ([facility]) [address] [place] [address] 84848 Nucleated RBC/100 WBC (Bld) [Ratio] 0.0 /100 WBCs Normal 0.0-0.0 [facility] [place] Comment on above: Performed By: #### 3 34-4 #### JACQUI Hayes ([id number]) [facility] ([facility]) [address] [address] 42851 Platelet mean volume (Bld) [Entitic vol] 8.9 fL Normal 7.5-11.5 [facility] [place] Comment on above: Performed By: #### 3 0934-4 #### JACQUI Hayes ([id number]) [facility] ([facility]) [address] [place] [address] 57686 Platelets (Bld) [#/Vol] 656 x10*3/uL High 150-450 [facility] [place] Comment on above: Performed By: #### 3 0934-4 #### JACQUI Hayes ([id number]) [facility] ([facility]) [address] [address] 41592 RBC (Bld) [#/Vol] 3.01 x10*6/uL Low 4.00-5.20 [facility] Comment on above: Performed By: #### 3 0934-4 #### JACQUI Hayes ([id number]) [facility] ([facility]) [address] [place] [address] 46291 WBC (Bld) [#/Vol] 17.4 x10*3/uL High 4.4-11.3 [facility] Comment on above: Performed By: #### 3 0934-4 #### JACQUI Hayes ([id number]) [facility] ([facility]) [address] [place] [address] 72059 Heparin.unfractionatedon Heparin unfractionated Chromogenic method Qn (PPP) 0.4 IU/mL Normal See Comment Below for Therapeutic Ranges [facility] [place] Comment on above: Order Comment: Less than [...] performed using a different testing methodology at [facility] than at other [facility]. Direct result comparisons should only be made within the same method. Performed By: #### 8 9577-1 #### JACQUI Hayes ([id number]) [facility] ([facility]) [address] [place] [address] Magnesiumon 06-12-2023 Magnesium [Mass/Vol] 1.99 mg/dL Normal 1.60-2.40 [facility] Comment on above: Performed By: #### 3 0934-4 #### JACQUI Hayes ([id number]) [facility] ([facility]) [address] [place], [place] [phone] Renal function 2000 panelon 06-12-2023 Albumin BCP dye [Mass/Vol] 2.8 g/dL Low 3.4-5.0 [facility] [place] Comment on above: Performed By: #### 3 0934-4 #### JACQUI Hayes ([id number]) [facility] ([facility]) [address] [place], [place] [phone] Anion gap [Moles/Vol] 15 mmol/L Normal 10-20 [facility] Comment on above: Performed By: #### 3 0934-4 #### JACQUI Hayes ([id number]) [facility] ([facility]) [address] [place] [address] Calcium [Mass/Vol] 7.9 mg/dL Low 8.6-10.6 [facility] Comment on above: Performed By: #### 3 0934-4 #### JACQUI STYLES L ([id number]) [facility] ([facility]) [address] [place] [address] Chloride [Moles/Vol] 83 mmol/L Low 98-107 [facility] Comment on above: Performed By: #### 3 0934-4 #### JACQUI STYLES L ([id number]) [facility] ([facility]) [address] [place] [address] CO2 [Moles/Vol] 26 mmol/L Normal 21-32 [facility] Comment on above: Performed By: #### 3 0934-4 #### JACQUI Hayes ([id number]) [facility] ([facility]) [address] [place] [address] Creatinine [Mass/Vol] 0.37 mg/dL Low 0.50-1.05 [facility] Comment on above: Performed By: #### 3 0934-4 #### JACQUI STYLES L ([id number]) [facility] ([facility]) [address] [place] [address] GFR/1.73 sq M.predicted MDRD (S/P/Bld) [Vol rate/Area] mL/min/{1.73_m2} Normal >60 [facility] [place] Comment on above: Result Comment: Calc ulations of estimated GFR are performed using the 2020 CKD-EPI Study Refit equation without the race variable for the IDMS-Traceable creatinine methods. https://jasn.asnjournals.org/content/early/ASN.72636 96374 Performed By: #### 3 0934-4 #### JACQUI Hayes ([id number]) [facility] ([facility]) [address] [place] [address] Glucose [Mass/Vol] 102 mg/dL High 74-99 [facility] Comment on above: Performed By: #### 3 0934-4 #### JACQUI Hayes ([id number]) [facility] ([facility]) [address] [place] [address] 60961 Phosphate [Mass/Vol] 3.4 mg/dL Normal 2.5-4.9 [facility] Comment on above: Result Comment: The performance characteristics of phosphorus testing in heparinized plasma have been validated by the individual laboratory site where testing is performed. Testing on heparinized plasma is not approved by the FDA; however, such approval is not necessary. Performed By: #### 3 0934-4 #### JACQUI Hayes ([id number]) [facility] ([facility]) [address] [address] 69991 Potassium [Moles/Vol] 4.2 mmol/L Normal 3.5-5.3 [facility] Comment on above: Performed By: #### 3 0934-4 #### JACQUI Hayes ([id number]) [facility] ([facility]) [address] [address] 53365 Sodium [Moles/Vol] 120 mmol/L Critically low 136-145 [facility] Comment on above: Performed By: #### 3 0934-4 #### JACQUI Hayes ([id number]) [facility] ([facility]) [address] [place] [address] 17575 Urea nitrogen [Mass/Vol] 8 mg/dL Normal 6-23 [facility] [place] Comment on above: Performed By: #### 3 0934-4 #### JACQUI Hayes ([id number]) [facility] ([facility]) [address] [place] [place] [address] 59333 TRANSESOPHAGEAL ECHO (ANABEL)on 06-12-2023 TRANSESOPHAGEAL ECHO (ANABEL) [facility], [address] [place] [address]168 and TRANSESOPHAGEAL ECHOCARDIOGRAM REPORT Patient Name: MODESTA STARK Reading Physician: [id number] Clari Jeffers MD Study Date: 06/12/2023 Ordering Provider: [id number] SOSA CORONADO MRN/PID: [id number] Fellow: [id number] Sosa Coronado MD Nurse: Date of /Age: 1 1940 / years 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: Gender: F Additional Staff: BSA: m2 Study Type: TRANSESOPHAGEAL ECHO (ANABLE) Diagnosis/ICD: Unspecified atrial fibrillation-I48.91 Study Detail: The [...] No left atrial thrombus. QUANTITATIVE DATA SUMMARY: [id number] Clari Jeffers MD Electronically signed on 06/15/2023 at 3:58:[address] [facility] XR CHEST 1 VIEWon 06-12-2023 XR CHEST 1 VIEW Interpreted By: Jaylen Person, STUDY: XR CHEST 1 VIEW; 06/12/2023 10:24 am INDICATION: Signs/Symptoms:hf. COMPARISON: 06/11/2023 ACCESSION NUMBER(S): [id number] ORDERING CLINICIAN: JANE GIRALDO FINDINGS: CARDIOMEDIASTINAL SILHOUETTE: Cardiomegaly versus pericardial effusion radiopaque monitoring device overlying the cardiac silhouette LUNGS: Minimal improvement in interstitial edema with continued edema and effusions. Calcified left-sided granulomas ABDOMEN: No remarkable upper abdominal findings. BONES: No acute osseous changes. IMPRESSION: 1. Minimal improvement in interstitial edema/effusions correlate with cardiac and fluid status Signed by: Jaylen Saleh 06/12/2023 11:33 AM Dictation workstation: [id number] [facility] Bacteria identifiedon 2022 Bacteria identified Cx Nom (Bld) Test: Blood Culture Specimen Source: Peripheral Venipuncture Specimen Type: Blood culture Specimen Date: 06/11/2023 11:46 AM Result Date: 06/15/2023 2:01 PM Result Status: Final result Abnormal: No Resulting Lab: [facility] [address] [place] [address] CULTURE No growth at 4 days - FINAL REPORT [facility] Comment on above: Performed By: #### 2 524-7 #### JACQUI Hayes ([id number]) [facility] ([facility]) [address] [place] [address] CBC panel Auto (Bld)on 06-11 Erythrocyte distribution width (RBC) [Ratio] 13.3 % Normal 11.5-14.5 [facility] [place] Comment on above: Performed By: #### 8 9577-1 #### JACQUI Hayes ([id number]) [facility] ([facility]) [address] [place] [address] Hematocrit (Bld) [Volume fraction] 24.3 % Low 36.0-46.0 [facility] [place] Comment on above: Performed By: #### 8 9577-1 #### JACQUI Hayes ([id number]) [facility] ([facility]) [address] [place] [address] 06837 Hemoglobin (Bld) [Mass/Vol] 8.1 g/dL Low 12.0-16.0 [facility] [place] Comment on above: Performed By: #### 8 9577-1 #### JACQUI Hayes ([id number]) [facility] ([facility]) [address] [place] [address] 32052 MCH (RBC) [Entitic mass] 26.8 pg Normal 26.0-34.0 [facility] [place] Comment on above: Performed By: #### 8 9577-1 #### JACQUI Hayes ([id number]) [facility] ([facility]) [address] [address] 82241 MCHC (RBC) [Mass/Vol] 33.3 g/dL Normal 32.0-36.0 [facility] Comment on above: Performed By: #### 8 9577-1 #### JACQUI Hayes ([id number]) [facility] ([facility]) [address] [address] 04104 MCV (RBC) [Entitic vol] 81 fL Normal 80-100 [facility] [place] Comment on above: Performed By: #### 8 9577-1 #### JACQUI Hayes ([id number]) [facility] ([facility]) [address] [address] 73463 Nucleated RBC/100 WBC (Bld) [Ratio] 0.0 /100 WBCs Normal 0.0-0.0 [facility] [place] Comment on above: Performed By: #### 8 9577-1 #### JACQUI Hayes ([id number]) [facility] ([facility]) [address] [place] [address] 67073 Platelet mean volume (Bld) [Entitic vol] 9.2 fL Normal 7.5-11.5 [facility] [place] Comment on above: Performed By: #### 8 9577-1 #### JACQUI Hayes ([id number]) [facility] ([facility]) [address] [place] [address] 72199 Platelets (Bld) [#/Vol] 550 x10*3/uL High 150-450 [facility] [place] Comment on above: Performed By: #### 8 9577-1 #### JACQUI Hayes ([id number]) [facility] ([facility]) [address] [address] 34245 RBC (Bld) [#/Vol] 3.02 x10*6/uL Low 4.00-5.20 [facility] Comment on above: Performed By: #### 8 9577-1 #### JACQUI Hayes ([id number]) [facility] ([facility]) [address] [place] [address] 37236 WBC (Bld) [#/Vol] 15.7 x10*3/uL High 4.4-11.3 [facility] Comment on above: Performed By: #### 8 9577-1 #### JACQUI Hayes ([id number]) [facility] ([facility]) [address] [place] [address] 87683 Erythrocyte distribution width (RBC) [Ratio] 13.4 % Normal 11.5-14.5 [facility] [place] Comment on above: Performed By: #### 3 4529-8 #### JACQUI Hayes ([id number]) [facility] ([facility]) [address] [place] [address] 79558 Hematocrit (Bld) [Volume fraction] 23.7 % Low 36.0-46.0 [facility] [place] Comment on above: Performed By: #### 3 4529-8 #### JACQUI Hayes ([id number]) [facility] ([facility]) [address] [place] [address] 27113 Hemoglobin (Bld) [Mass/Vol] 7.8 g/dL Low 12.0-16.0 [facility] [place] Comment on above: Performed By: #### 3 4529-8 #### JACQUI Hayes ([id number]) [facility] ([facility]) [address] [place] [address] 20171 MCH (RBC) [Entitic mass] 27.4 pg Normal 26.0-34.0 [facility] [place] Comment on above: Performed By: #### 3 4529-8 #### JACQUI Hayes ([id number]) [facility] ([facility]) [address] [place] [address] 73646 MCHC (RBC) [Mass/Vol] 32.9 g/dL Normal 32.0-36.0 [facility] Comment on above: Performed By: #### 3 4529-8 #### JACQUI Hayes ([id number]) [facility] ([facility]) [address] [place] [address] 02634 MCV (RBC) [Entitic vol] 83 fL Normal 80-100 [facility] [place] Comment on above: Performed By: #### 3 4529-8 #### JACQUI Hayes ([id number]) [facility] ([facility]) [address] [place] [address] 28651 Nucleated RBC/100 WBC (Bld) [Ratio] 0.0 /100 WBCs Normal 0.0-0.0 [facility] [place] Comment on above: Performed By: #### 3 4529-8 #### JACQUI Hayes ([id number]) [facility] ([facility]) [address] [place] [address] 75000 Platelet mean volume (Bld) [Entitic vol] 8.7 fL Normal 7.5-11.5 [facility] [place] Comment on above: Performed By: #### 3 4529-8 #### JACQUI Hayes ([id number]) [facility] ([facility]) [address] [place] [address] 39825 Platelets (Bld) [#/Vol] 605 x10*3/uL High 150-450 [facility] [place] Comment on above: Performed By: #### 3 4529-8 #### JACQUI Hayes ([id number]) [facility] ([facility]) [address] [place] [address] 62294 RBC (Bld) [#/Vol] 2.85 x10*6/uL Low 4.00-5.20 [facility] Comment on above: Performed By: #### 3 4529-8 #### JACQUI Hayes ([id number]) [facility] ([facility]) [address] [place] [address] WBC (Bld) [#/Vol] 18.0 x10*3/uL High 4.4-11.3 [facility] Comment on above: Performed By: #### 3 4529-8 #### JACQUI Hayes ([id number]) [facility] ([facility]) [address] [place] [address] CT ABDOMEN PELVIS W IV CONTR Shantell 06-11-2023 CT ABDOMEN PELVIS W IV CONTRAST Interpreted By: Jose Sheth, STUDY: CT ABDOMEN PELVIS W IV CONTRAST; 06/11/2023 6:08 pm INDICATION: Signs/Symptoms:diverticul itis. COMPARISON: None. ACCESSION NUMBER(S): [id number] ORDERING CLINICIAN: EBONI DEL CID TECHNIQUE: Contiguous axial images of the [...] cm on the left. There are multiple eqw-rhuie-ck-characterize hypodensities in the kidneys statistically representing benign [...] Jose Sheth 06/12/2023 12:38 PM Dictation workstation: [id number] Normal [facility] [place] Comprehensive metabolic 2000 panelon 06-11-2023 Albumin BCP dye [Mass/Vol] 3.0 g/dL Low 3.4-5.0 [facility] [place] Comment on above: Performed By: #### 8 9577-1 #### JACQUI Hayes ([id number]) [facility] ([facility]) [address] [place] [address] ALP [Catalytic activity/Vol] 125 U/L Normal 33-136 [facility] [place] Comment on above: Performed By: #### 8 9577-1 #### JACQUI Hayes ([id number]) [facility] ([facility]) [address] [place] [address] ALT With P-5'-P [Catalytic activity/Vol] 25 U/L Normal 7-45 [facility] [place] Comment on above: Result Comment: Nancy ents treated with Sulfasalazine may generate falsely decreased results for ALT. Performed By: #### 8 9577-1 #### JACQUI Hayes (84883) [facility] ([facility]) [address] [place] [address] Anion gap [Moles/Vol] 18 mmol/L Normal 10-20 [facility] Comment on above: Performed By: #### 8 9577-1 #### JACQUI Hayes ([id number]) [facility] ([facility]) [address] [place] [address] 70893 AST With P-5'-P [Catalytic activity/Vol] 16 U/L Normal 9-39 [facility] [place] Comment on above: Performed By: #### 8 9577-1 #### JACQUI Hayes ([id number]) [facility] ([facility]) [address] [place] [address] 45617 Bilirubin [Mass/Vol] 0.5 mg/dL Normal 0.0-1.2 [facility] Comment on above: Performed By: #### 8 9577-1 #### JACQUI Hayes ([id number]) [facility] ([facility]) [address] [place] [address] 82358 Calcium [Mass/Vol] 8.1 mg/dL Low 8.6-10.6 [facility] Comment on above: Performed By: #### 8 9577-1 #### JACQUI STYLES L ([id number]) [facility] ([facility]) [address] [place] [address] 59221 Chloride [Moles/Vol] 79 mmol/L Low 98-107 [facility] Comment on above: Performed By: #### 8 9577-1 #### JACQUI Hayes ([id number]) [facility] ([facility]) [address] [place] [address] CO2 [Moles/Vol] 25 mmol/L Normal 21-32 [facility] Comment on above: Performed By: #### 8 9577-1 #### JACQUI Hayes ([id number]) [facility] ([facility]) [address] [place] [address] Creatinine [Mass/Vol] 0.42 mg/dL Low 0.50-1.05 [facility] Comment on above: Performed By: #### 8 9577-1 #### JACQUI Hayes (16993) [facility] ([facility]) [address] [place] [address] GFR/1.73 sq M.predicted MDRD (S/P/Bld) [Vol rate/Area] mL/min/{1.73_m2} Normal >60 [facility] Comment on above: Result Comment: Calc ulations of estimated GFR are performed using the 2020 CKD-EPI Study Refit equation without the race variable for the IDMS-Traceable creatinine methods. https://jasn.asnjournals.org/content/early/ASN.06835 64773 Performed By: #### 8 9577-1 #### JACQUI Hayes ([id number]) [facility] ([facility]) [address] [place] [address] Glucose [Mass/Vol] 174 mg/dL High 74-99 [facility] Comment on above: Performed By: #### 8 9577-1 #### JACQUI Hayes ([id number]) [facility] ([facility]) [address] [place] [address] Potassium [Moles/Vol] 3.8 mmol/L Normal 3.5-5.3 [facility] Comment on above: Performed By: #### 8 9577-1 #### JACQUI Hayes (67757) [facility] ([facility]) [address] [place] [address] Protein [Mass/Vol] 6.1 g/dL Low 6.4-8.2 [facility] Comment on above: Performed By: #### 8 9577-1 #### JACQUI Hayes ([id number]) [facility] ([facility]) [address] [place] [address] 93686 Sodium [Moles/Vol] 118 mmol/L Critically low 136-145 [facility] Comment on above: Performed By: #### 8 9577-1 #### JACQUI Hayes (46735) [facility] ([facility]) [address] [place] [address] 04488 Urea nitrogen [Mass/Vol] 8 mg/dL Normal 6-23 [facility] Comment on above: Performed By: #### 8 9577-1 #### JACQUI Hayes ([id number]) [facility] ([facility]) [address] [place] [address] 00991 Albumin BCP dye [Mass/Vol] 2.7 g/dL Low 3.4-5.0 [facility] Comment on above: Performed By: #### 2 524-7 #### JACQUI Hayes (69858) [facility] ([facility]) [address] [place] [address] ALP [Catalytic activity/Vol] 120 U/L Normal 33-136 [facility] Comment on above: Performed By: #### 2 524-7 #### JACQUI Hayes ([id number]) [facility] ([facility]) [address] [place] [address] 86964 ALT With P-5'-P [Catalytic activity/Vol] 30 U/L Normal 7-45 [facility] Comment on above: Result Comment: Nancy ents treated with Sulfasalazine may generate falsely decreased results for ALT. Performed By: #### 2 524-7 #### JACQUI Hayes ([id number]) [facility] ([facility]) [address] [place] [address] Anion gap [Moles/Vol] 17 mmol/L Normal 10-20 [facility] Comment on above: Performed By: #### 2 524-7 #### JACQUI Hayes ([id number]) [facility] ([facility]) [address] [place] [address] AST With P-5'-P [Catalytic activity/Vol] 19 U/L Normal 9-39 [facility] Comment on above: Performed By: #### 2 524-7 #### JAQCUI Hayes ([id number]) [facility] ([facility]) [address] [place] [address] Bilirubin [Mass/Vol] 0.5 mg/dL Normal 0.0-1.2 [facility] Comment on above: Performed By: #### 2 524-7 #### JACQUI Hayes ([id number]) [facility] ([facility]) [id number] [place] [id number] Calcium [Mass/Vol] 7.8 mg/dL Low 8.6-10.6 [facility] Comment on above: Performed By: #### 2 524-7 #### JACQUI Hayes ([id number]) [facility] ([facility]) [id number] [place] [id number] Chloride [Moles/Vol] 84 mmol/L Low 98-107 [facility] Comment on above: Performed By: #### 2 524-7 #### JACQUI Hayes ([id number]) [facility] ([facility]) [address] [place] [address] CO2 [Moles/Vol] 24 mmol/L Normal 21-32 [facility] Comment on above: Performed By: #### 2 524-7 #### JACQUI Hayes ([id number]) [facility] ([facility]) [address] [place] [address] Creatinine [Mass/Vol] 0.49 mg/dL Low 0.50-1.05 [facility] Comment on above: Performed By: #### 2 524-7 #### JACQUI Hayes ([id number]) [facility] ([facility]) [address] [place] [address] 19414 GFR/1.73 sq M.predicted MDRD (S/P/Bld) [Vol rate/Area] mL/min/{1.73_m2} Normal >60 [facility] Comment on above: Result Comment: Calc ulations of estimated GFR are performed using the 2020 CKD-EPI Study Refit equation without the race variable for the IDMS-Traceable creatinine methods. https://jasn.asnjournals.org/content//ASN.90233 60984 Performed By: #### 2 524-7 #### JACQUI Hayes ([id number]) [facility] ([facility]) [address] [place] [address] Glucose [Mass/Vol] 136 mg/dL High 74-99 [facility] Comment on above: Performed By: #### 2 524-7 #### JACQUI STYLES L ([id number]) [facility] ([facility]) [address] [place] [address] 96546 Potassium [Moles/Vol] 4.0 mmol/L Normal 3.5-5.3 [facility] Comment on above: Performed By: #### 2 524-7 #### JACQUI STYLES L ([id number]) [facility] ([facility]) [address] [place] [address] Protein [Mass/Vol] 5.6 g/dL Low 6.4-8.2 [facility] Comment on above: Performed By: #### 2 524-7 #### JACQUI STYLES L ([id number]) [facility] ([facility]) [address] [place] [address] 38125 Sodium [Moles/Vol] 121 mmol/L Low 136-145 [facility] Comment on above: Performed By: #### 2 524-7 #### JACQUI STYLES L ([id number]) [facility] ([facility]) [address] [place] [address] 44844 Urea nitrogen [Mass/Vol] 12 mg/dL Normal 6-23 [facility] Comment on above: Performed By: #### 2 524-7 #### JACQUI Hayes ([id number]) [facility] ([facility]) [address] [place] [address] 49098 ELECTROLYTE PANEL, URINEon 1 - Chloride (U) [Moles/Vol] 74 mmol/L Normal [facility] Comment on above: Performed By: #### 8 9577-1 #### JACQUI Hayes ([id number]) [facility] ([facility]) [address] [address] 62850 CHLORIDE/CREATININE (MMOL/G) IN URINE 396 mmol/g creat High 38-318 [facility] Comment on above: Performed By: #### 8 9577-1 #### JACQUI Hayes ([id number]) [facility] ([facility]) [address] [place] [address] 95300 Creatinine (U) [Mass/Vol] 18.7 mg/dL Low 20.0-320.0 [facility] Comment on above: Performed By: #### 8 9577-1 #### JACQUI Hayes ([id number]) [facility] ([facility]) [address] [place] [address] 75590 Potassium (U) [Moles/Vol] 33 mmol/L Normal [facility] Comment on above: Performed By: #### 8 9577-1 #### JACQUI STYLES L ([id number]) [facility] ([facility]) [address] [place] [address] 53494 Potassium/Creatinine (U) [Ratio] 176 mmol/g Creat Normal Not established [facility] Comment on above: Performed By: #### 8 9577-1 #### JACQUI Hayes ([id number]) [facility] ([facility]) [address] [place] [address] 62930 Sodium (U) [Moles/Vol] 72 mmol/L Normal [facility] Comment on above: Performed By: #### 8 9577-1 #### JACQUI STYLES L ([id number]) [facility] ([facility]) [address] [place] [address] 57241 Sodium/Creatinine (U) [Ratio] 385 mmol/g Creat Normal Not established. [facility] Comment on above: Performed By: #### 8 9577-1 #### JACQUI Hayes ([id number]) [facility] ([facility]) [address] [place] [address] 44403 Heparin.unfractionatedon Heparin unfractionated Chromogenic method Qn (PPP) 0.4 IU/mL Normal See Comment Below for Therapeutic Ranges [facility] Comment on above: Order Comment: The A PTT is no longer used for monitoring Unfractionated Heparin Therapy. For monitoring Heparin Therapy, use the Heparin Assay. Performed By: #### 3 4529-8 #### JACQUI Hayes ([id number]) [facility] ([facility]) [address] [place] [address] 35745 Lactateon 06-11-2023 Lactate (BldA) [Moles/Vol] 1.2 mmol/L Normal 0.4-2.0 [facility] Comment on above: Performed By: #### 2 524-7 #### JACQUI Hayes ([id number]) [facility] ([facility]) [address] [place] [address] 03084 Legionella sp Agon Legionella sp Ag Ql (U) Negative Normal Negative [facility] Comment on above: Performed By: #### 3 0934-4 #### JACQUI Hayes ([id number]) [facility] ([facility]) [address] [place] [address] 29357 Magnesiumon 06-11-2023 Magnesium [Mass/Vol] 1.97 mg/dL Normal 1.60-2.40 [facility] Comment on above: Performed By: #### 8 9577-1 #### JACQUI Hayes ([id number]) [facility] ([facility]) [address] [place] [address] 45899 Magnesium [Mass/Vol] 1.58 mg/dL Low 1.60-2.40 [facility] Comment on above: Performed By: #### 2 524-7 #### JACQUI Hayes ([id number]) [facility] ([facility]) [address] [place] [address] Osmolalityon 06-11-2023 Osmolality (U) [Osmolality] 303 mosm/kg Normal 200-1200 [facility] Comment on above: Performed By: #### 8 9577-1 #### JACQUI Hayes ([id number]) [facility] ([facility]) [address] [place] [address] 78853 Osmolality [Osmolality] 241 mosm/kg Low 280-300 [facility] Comment on above: Performed By: #### 8 9577-1 #### JACQUI Hayes ([id number]) [facility] ([facility]) [address] [place] [address] 92618 Osmolality [Osmolality] 249 mosm/kg Low 280-300 [facility] Comment on above: Performed By: #### 2 524-7 #### JACQUI Hayes ([id number]) [facility] ([facility]) [address] [place] [address] 77715 Phosphateon 06-11-2023 Phosphate [Mass/Vol] 3.3 mg/dL Normal 2.5-4.9 [facility] Comment on above: Result Comment: The performance characteristics of phosphorus testing in heparinized plasma have been validated by the individual laboratory site where testing is performed. Testing on heparinized plasma is not approved by the FDA; however, such approval is not necessary. Performed By: #### 8 9577-1 #### JACQUI Hayes ([id number]) [facility] ([facility]) [address] [place] [address] 58173 Renal function 2000 panelon 06-11-2023 Albumin BCP dye [Mass/Vol] 3.0 g/dL Low 3.4-5.0 [facility] Comment on above: Performed By: #### 2 524-7 #### JACQUI Hayes ([id number]) [facility] ([facility]) [address] [place] [address] 95919 Anion gap [Moles/Vol] 16 mmol/L Normal 10-20 [facility] Comment on above: Performed By: #### 2 524-7 #### JACQUI STYLES L ([id number]) [facility] ([facility]) [address] [place] [address] Calcium [Mass/Vol] 7.5 mg/dL Low 8.6-10.6 [facility] Comment on above: Performed By: #### 2 524-7 #### JACQUI STYLES L ([id number]) [facility] ([facility]) [address] [place] [address] Chloride [Moles/Vol] 81 mmol/L Low 98-107 [facility] Comment on above: Performed By: #### 2 524-7 #### JACQUI STYLES L ([id number]) [facility] ([facility]) [address] [place] [address] CO2 [Moles/Vol] 26 mmol/L Normal 21-32 [facility] Comment on above: Performed By: #### 2 524-7 #### JACQUI STYLES L ([id number]) [facility] ([facility]) [address] [place] [address] Creatinine [Mass/Vol] 0.45 mg/dL Low 0.50-1.05 [facility] Comment on above: Performed By: #### 2 524-7 #### JACQUI STYLES L ([id number]) [facility] ([facility]) [address] [place] [address] 28617 GFR/1.73 sq M.predicted MDRD (S/P/Bld) [Vol rate/Area] mL/min/{1.73_m2} Normal >60 [facility] Comment on above: Result Comment: Calc ulations of estimated GFR are performed using the 2020 CKD-EPI Study Refit equation without the race variable for the IDMS-Traceable creatinine methods. https://jasn.asnjournals.org/content//ASN.15775 62823 Performed By: #### 2 524-7 #### JACQUI Hayes ([id number]) [facility] ([facility]) [address] [place] [address] Glucose [Mass/Vol] 167 mg/dL High 74-99 [facility] Comment on above: Performed By: #### 2 524-7 #### JACQUI Hayes ([id number]) [facility] ([facility]) [address] [place] [address] 05153 Phosphate [Mass/Vol] 3.3 mg/dL Normal 2.5-4.9 [facility] Comment on above: Result Comment: The performance characteristics of phosphorus testing in heparinized plasma have been validated by the individual laboratory site where testing is performed. Testing on heparinized plasma is not approved by the FDA; however, such approval is not necessary. Performed By: #### 2 524-7 #### JACQUI Hayes ([id number]) [facility] ([facility]) [address] [place] [address] 92087 Potassium [Moles/Vol] 3.7 mmol/L Normal 3.5-5.3 [facility] Comment on above: Performed By: #### 2 524-7 #### JACQUI Hayes ([id number]) [facility] ([facility]) [address] [place] [address] 99242 Sodium [Moles/Vol] 119 mmol/L Critically low 136-145 [facility] Comment on above: Performed By: #### 2 524-7 #### JACQUI Hayes ([id number]) [facility] ([facility]) [address] [place] [address] 46458 Urea nitrogen [Mass/Vol] 10 mg/dL Normal 6-23 [facility] Comment on above: Performed By: #### 2 524-7 #### JACQUI Hayes ([id number]) [facility] ([facility]) [address] [place] [address] 02076 Streptococcus pneumoniae Ago n 06-11-2023 S. pneumoniae Ag Ql (U) Negative Normal Negative [facility] Comment on above: Performed By: #### 3 0934-4 #### JACQUI Hayes ([id number]) [facility] ([facility]) [address] [place] [address] 00971 Urinalysis complete panel (U )on 06-11-2023 Appearance (U) Hazy Normal Clear [facility] Comment on above: Performed By: #### 8 9577-1 #### JACQUI Hayes ([id number]) [facility] ([facility]) [address] [place] [address] 03339 Bilirubin (U) [Mass/Vol] Negative Normal NEGATIVE [facility] Comment on above: Performed By: #### 8 9577-1 #### JACQUI Hayes ([id number]) [facility] ([facility]) [address] [place] [address] 01197 Color (U) Yellow Normal Straw, Yellow [facility] Comment on above: Performed By: #### 8 9577-1 #### JACQUI Hayes ([id number]) [facility] ([facility]) [address] [place] [address] 63567 Glucose Auto test strip (U) [Mass/Vol] Negative Normal NEGATIVE [facility] Comment on above: Performed By: #### 8 9577-1 #### JACQUI Hayes ([id number]) [facility] ([facility]) [address] [place] [address] 99166 Ketones (U) [Mass/Vol] Negative Normal NEGATIVE [facility] Comment on above: Performed By: #### 8 9577-1 #### JACQUI Hayes ([id number]) [facility] ([facility]) [address] [place] [address] 46406 Leukocyte esterase Auto test strip Ql (U) Negative Normal NEGATIVE [facility] Comment on above: Performed By: #### 8 9577-1 #### JACQUI STYLES L ([id number]) [facility] ([facility]) [address] [place] [address] 30429 Nitrite Auto test strip Ql (U) Negative Normal NEGATIVE [facility] Comment on above: Performed By: #### 8 9577-1 #### JACQUI Hayes ([id number]) [facility] ([facility]) [address] [place] [address] 56283 pH (U) 8.0 [pH] Normal 5.0, 5.5, 6.0, 6.5, 7.0, 7.5, 8.0 [facility] Comment on above: Performed By: #### 8 9577-1 #### JACQUI Hayes ([id number]) [facility] ([facility]) [address] [place] [address] 19764 Protein (U) [Mass/Vol] Negative Normal NEGATIVE [facility] Comment on above: Performed By: #### 8 9577-1 #### JACQUI Hayes ([id number]) [facility] ([facility]) [address] [place] [address] 40901 RBC (U) [#/Vol] SMALL (1+) Abnormal NEGATIVE [facility] Comment on above: Performed By: #### 8 9577-1 #### JACQUI Hayes ([id number]) [facility] ([facility]) [address] [place] [address] 91581 Specific gravity (U) [Rel density] 1.020 Normal 1.005-1.035 [facility] Comment on above: Performed By: #### 8 9577-1 #### JACQUI Hayes ([id number]) [facility] ([facility]) [address] [place] [address] 52038 Urobilinogen (U) [Mass/Vol] mg/dL Normal <2.0 [facility] Comment on above: Performed By: #### 8 9577-1 #### JACQUI Hayes ([id number]) [facility] ([facility]) [address] [place] [address] 88962 Urinalysis microscopic panel Auto Ql (U)on 06-11-2023 Mucus Auto (Urine sed) [#/Area] 1+ /LPF Normal Reference range not established. [facility] Comment on above: Performed By: #### 8 9577-1 #### JACQUI Hayes ([id number]) [facility] ([facility]) [address] [place] [address] RBC Auto (Urine sed) [#/Area] 11-20 Abnormal NONE, 1-2, 3-5 [facility] Comment on above: Performed By: #### 8 9577-1 #### JACQUI DOWNEYMOTZER L ([id number]) [facility] ([facility]) [address] [place] [address] WBC Auto (Urine sed) [#/Area] NONE Normal 1-5, NONE [facility] Comment on above: Performed By: #### 8 9577-1 #### JACQUI SCHMOTZER L ([id number]) [facility] ([facility]) [address] [place] [address] XR CHEST 1 VIEWon 06-11-2023 XR CHEST 1 VIEW Interpreted By: Jaylen Person, STUDY: XR CHEST 1 VIEW; 06/11/2023 7:07 am INDICATION: Signs/Symptoms:wheezing and o2 requirement. COMPARISON: 08/10/2023 ACCESSION NUMBER(S): [id number] ORDERING CLINICIAN: EBONI DEL CID FINDINGS: CARDIOMEDIASTINAL SILHOUETTE: Cardiomegaly versus pericardial effusion radiopaque monitoring device overlies the cardiac silhouette LUNGS: Slight interval worsening in perihilar and upper lobe edema. Calcified left upper lobe granuloma ABDOMEN: No remarkable upper abdominal findings. BONES: No acute osseous changes. IMPRESSION: 1. Slight interval worsening in perihilar edema and correlate with cardiac and fluid status Signed by: Jaylen Saleh 06/12/2023 9:00 AM Dictation workstation: [id number] [facility] XR FOOT LEFT 3+ VIEWSon 05-17 XR FOOT LEFT 3+ VIEWS Interpreted By: Krzysztof Gil, ADDENDUM: The study title on the originally signed report is incorrect. The study title should read XR Foot LEFT 3+ VIEWS. Signed by: Krzysztof Escalera 06/11/2023 1:24 PM -------- ORIGINAL REPORT -------- Dictation workstation: [id number] Interpreted By: Krzysztof Escalera, STUDY: XR FOOT LEFT 1-2 VIEWS; ; 06/10/2023 11:56 am INDICATION: Signs/Symptoms:fall. COMPARISON: None. ACCESSION NUMBER(S): [id number] ORDERING CLINICIAN: EBONI DEL CID FINDINGS: Three views of the left foot were provided. There is diffuse demineralization of the bones, limiting assessment for acute fracture. No acute fracture or malalignment. 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 IMPRESSION: No acute osseous abnormality of the left foot. MACRO: None Signed by: Krzysztof Escalera 06/10/2023 1:31 PM Dictation workstation: [id number] Normal [facility] CBC panel Auto (Bld)on 06-10 Erythrocyte distribution width (RBC) [Ratio] 13.2 % Normal 11.5-14.5 [facility] Comment on above: Performed By: #### 5 7021-8 #### JACQUI Hayes ([id number]) [facility] ([facility]) [address] [place] [address] 53900 Hematocrit (Bld) [Volume fraction] 24.3 % Low 36.0-46.0 [facility] Comment on above: Performed By: #### 5 7021-8 #### JACQUI Hayes ([id number]) [facility] ([facility]) [address] [address] 43937 Hemoglobin (Bld) [Mass/Vol] 8.1 g/dL Low 12.0-16.0 [facility] Comment on above: Performed By: #### 5 7021-8 #### JACQUI Hayes ([id number]) [facility] ([facility]) [address] [address] 96961 MCH (RBC) [Entitic mass] 26.4 pg Normal 26.0-34.0 [facility] Comment on above: Performed By: #### 5 7021-8 #### JACQUI Hayes ([id number]) [facility] ([facility]) [address] [address] 12811 MCHC (RBC) [Mass/Vol] 33.3 g/dL Normal 32.0-36.0 [facility] Comment on above: Performed By: #### 5 7021-8 #### JACQUI Hayes ([id number]) [facility] ([facility]) [address] [place] [address] 12462 MCV (RBC) [Entitic vol] 79 fL Low 80-100 [facility] Comment on above: Performed By: #### 5 7021-8 #### JACQUI Hayes ([id number]) [facility] ([facility]) [address] [place] [address] 99560 Nucleated RBC/100 WBC (Bld) [Ratio] 0.0 /100 WBCs Normal 0.0-0.0 [facility] Comment on above: Performed By: #### 5 7021-8 #### JACQUI Hayes ([id number]) [facility] ([facility]) [address] [place] [address] 21358 Platelet mean volume (Bld) [Entitic vol] 8.9 fL Normal 7.5-11.5 [facility] Comment on above: Performed By: #### 5 7021-8 #### JACQUI Hayes ([id number]) [facility] ([facility]) [address] [place] [address] 06226 Platelets (Bld) [#/Vol] 595 x10*3/uL High 150-450 [facility] Comment on above: Performed By: #### 5 7021-8 #### JACQUI Hayes ([id number]) [facility] ([facility]) [address] [place] [address] 33539 RBC (Bld) [#/Vol] 3.07 x10*6/uL Low 4.00-5.20 [facility] Comment on above: Performed By: #### 5 7021-8 #### JACQUI Hayes ([id number]) [facility] ([facility]) [address] [place] [address] 42668 WBC (Bld) [#/Vol] 16.6 x10*3/uL High 4.4-11.3 [facility] Comment on above: Performed By: #### 5 7021-8 #### JACQUI Hayes ([id number]) [facility] ([facility]) [address] [place] [address] 71275 Comprehensive metabolic 2000 panelon 06-10-2023 Albumin BCP dye [Mass/Vol] 2.8 g/dL Low 3.4-5.0 [facility] Comment on above: Performed By: #### 3 4529-8 #### JACQUI Hayes ([id number]) [facility] ([facility]) [address] [place] [address] 41245 ALP [Catalytic activity/Vol] 113 U/L Normal 33-136 [facility] Comment on above: Performed By: #### 3 4529-8 #### JACQUI Hayes ([id number]) [facility] ([facility]) [address] [place] [address] 32443 ALT With P-5'-P [Catalytic activity/Vol] 33 U/L Normal 7-45 [facility] Comment on above: Result Comment: Nancy ents treated with Sulfasalazine may generate falsely decreased results for ALT. Performed By: #### 3 4529-8 #### JACQUI Hayes ([id number]) [facility] ([facility]) [address] [place] [address] 04334 Anion gap [Moles/Vol] 12 mmol/L Normal 10-20 [facility] Comment on above: Performed By: #### 3 4529-8 #### JACQUI Hayes ([id number]) [facility] ([facility]) [address] [place] [address] 07402 AST With P-5'-P [Catalytic activity/Vol] 18 U/L Normal 9-39 [facility] Comment on above: Performed By: #### 3 4529-8 #### JACQUI Hayes ([id number]) [facility] ([facility]) [address] [place] [address] 65671 Bilirubin [Mass/Vol] 0.4 mg/dL Normal 0.0-1.2 [facility] Comment on above: Performed By: #### 3 4529-8 #### JACQUI Hayes ([id number]) [facility] ([facility]) [address] [place] [address] Calcium [Mass/Vol] 8.3 mg/dL Low 8.6-10.6 [facility] Comment on above: Performed By: #### 3 4529-8 #### JACQUI STYLES L ([id number]) [facility] ([facility]) [address] [place] [address] Chloride [Moles/Vol] 93 mmol/L Low 98-107 [facility] Comment on above: Performed By: #### 3 4529-8 #### JACQUI Hayes ([id number]) [facility] ([facility]) [id number] [place] [id number] CO2 [Moles/Vol] 26 mmol/L Normal 21-32 [facility] Comment on above: Performed By: #### 3 4529-8 #### JACQUI Hayes ([id number]) [facility] ([facility]) [address] [place] [address] Creatinine [Mass/Vol] 0.49 mg/dL Low 0.50-1.05 [facility] Comment on above: Performed By: #### 3 4529-8 #### JACQUI Hayes ([id number]) [facility] ([facility]) [id number] [place] [address] 87071 GFR/1.73 sq M.predicted MDRD (S/P/Bld) [Vol rate/Area] mL/min/{1.73_m2} Normal >60 [facility] Comment on above: Result Comment: Calc ulations of estimated GFR are performed using the 2020 CKD-EPI Study Refit equation without the race variable for the IDMS-Traceable creatinine methods. https://jasn.asnjournals.org/content///ASN.97229 88684 Performed By: #### 3 4529-8 #### JACQUI Hayes ([id number]) [facility] ([facility]) [address] [place] [address] Glucose [Mass/Vol] 131 mg/dL High 74-99 [facility] Comment on above: Performed By: #### 3 4529-8 #### JACQUI Hayes ([id number]) [facility] ([facility]) [address] [place] [address] 97722 Potassium [Moles/Vol] 4.1 mmol/L Normal 3.5-5.3 [facility] Comment on above: Performed By: #### 3 4529-8 #### JACQUI Hayes ([id number]) [facility] ([facility]) [address] [place] [address] 05053 Protein [Mass/Vol] 5.7 g/dL Low 6.4-8.2 [facility] Comment on above: Performed By: #### 3 4529-8 #### JACQUI Hayes ([id number]) [facility] ([facility]) [address] [place] [address] 80685 Sodium [Moles/Vol] 127 mmol/L Low 136-145 [facility] Comment on above: Performed By: #### 3 4529-8 #### JACQUI Hayes ([id number]) [facility] ([facility]) [address] [place] [address] 61495 Urea nitrogen [Mass/Vol] 16 mg/dL Normal 6-23 [facility] Comment on above: Performed By: #### 3 4529-8 #### JACQUI Hayes ([id number]) [facility] ([facility]) [address] [place] [address] 11803 Heparin.unfractionatedon Heparin unfractionated Chromogenic method Qn (PPP) 0.4 IU/mL Normal See Comment Below for Therapeutic Ranges [facility] Comment on above: Order Comment: The A PTT is no longer used for monitoring Unfractionated Heparin Therapy. For monitoring Heparin Therapy, use the Heparin Assay. Performed By: #### 3 4529-8 #### JACQUI Hayes ([id number]) [facility] ([facility]) [address] [address] 39894 Heparin unfractionated Chromogenic method Qn (PPP) 0.5 IU/mL Normal See Comment Below for Therapeutic Ranges [facility] Comment on above: Order Comment: The A PTT is no longer used for monitoring Unfractionated Heparin Therapy. For monitoring Heparin Therapy, use the Heparin Assay. Performed By: #### 3 4529-8 #### JACQUI Hayes ([id number]) [facility] ([facility]) [address] [place] [address] 29302 Heparin unfractionated Chromogenic method Qn (PPP) 0.2 IU/mL Normal See Comment Below for Therapeutic Ranges [facility] Comment on above: Order Comment: The t herapeutic reference range for UFH may be either 0.3-0.6 IU/mL or 0.3-0.7 IU/mL based on the clinical setting for anticoagulant therapy and the associated nomogram used. For Heparin dosing guidelines based on clinical scenario and Heparin Assay results, please refer to local Pharmacy and the [facility] Guidelines for Anticoagulation Therapy available on the [facility] intranet at: [email or web address]/Pharmacy/Pages/[place]_ ospitals_Guidelines_for_Anticoagu.aspx Performed By: #### 5 7021-8 #### JACQUI Hayes ([id number]) [facility] ([facility]) [address] [address] 52746 Magnesiumon 06-10-2023 Magnesium [Mass/Vol] 1.80 mg/dL Normal 1.60-2.40 [facility] Comment on above: Performed By: #### 3 4529-8 #### JACQUI Hayes ([id number]) [facility] ([facility]) [address] [place] [address] 48027 Troponin I.cardiac panelon 1 Tropinin I.cardiac panel High sensitivity method 8 ng/L Normal 0-34 [facility] Comment on above: Order Comment: The A PTT is no longer used for monitoring Unfractionated Heparin Therapy. For monitoring Heparin Therapy, use the Heparin Assay. Performed By: #### 3 4529-8 #### JACQUI Hayes ([id number]) [facility] ([facility]) [address] [place] [address] XR CHEST 1 VIEWon 06-10-2023 XR CHEST 1 VIEW Interpreted By: El Hooper, STUDY: XR CHEST 1 VIEW; 06/10/2023 5:05 pm INDICATION: Signs/Symptoms:tachycardi a and wheezing. COMPARISON: 06/08/2023 ACCESSION NUMBER(S): [id number] ORDERING CLINICIAN: EBONI DEL CID FINDINGS: Upright [...] El Tyler 06/11/2023 12:20 PM Dictation workstation: [id number] [facility] XR FOOT LEFT 1-2 VIEWSon XR FOOT LEFT 1-2 VIEWS Interpreted By: Krzysztof Bean, STUDY: XR FOOT LEFT 1-2 VIEWS; ; 06/10/2023 11:56 am INDICATION: Signs/Symptoms:fall. COMPARISON: None. ACCESSION NUMBER(S): [id number] ORDERING CLINICIAN: EBONI DEL CID FINDINGS: Three views of the left foot were provided. There is diffuse demineralization of the bones, limiting assessment for acute fracture. No acute fracture or malalignment. 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 IMPRESSION: No acute osseous abnormality of the left foot. MACRO: None Signed by: Krzysztof Escalera 06/10/2023 1:31 PM Dictation workstation: [id number] Normal [facility] Bacteria identifiedon 2022 Bacteria identified Cx Nom (Bld) Test: Blood Culture Specimen Source: Peripheral Venipuncture Specimen Type: Blood culture Specimen Date: 06/09/2023 6:01 AM Result Date: 06/13/2023 10:01 AM Result Status: Final result Abnormal: No Resulting Lab: [facility] [address] [place] [address] CULTURE No growth at 4 days - FINAL REPORT Normal [facility] Comment on above: Performed By: #### 5 7021-8 #### JACQUI Hayes ([id number]) [facility] ([facility]) [address] [place] [address] Heparin.unfractionatedon Heparin unfractionated Chromogenic method Qn (PPP) 0.4 IU/mL Normal See Comment Below for Therapeutic Ranges [facility] Comment on above: Order Comment: The t herapeutic reference range for UFH may be either 0.3-0.6 IU/mL or 0.3-0.7 IU/mL based on the clinical setting for anticoagulant therapy and the associated nomogram used. For Heparin dosing guidelines based on clinical scenario and Heparin Assay results, please refer to local Pharmacy and the [facility] Guidelines for Anticoagulation Therapy available on the [facility] intranet at: [email or web address]/Pharmacy/Pages/[place]_ ospitals_Guidelines_for_Anticoagu.aspx Performed By: #### 5 7021-8 #### JACQUI Hayes ([id number]) [facility] ([facility]) [address] [place] [address] Heparin unfractionated Chromogenic method Qn (PPP) 0.6 IU/mL Normal See Comment Below for Therapeutic Ranges [facility] Comment on above: Order Comment: Obtai n [...] please refer to local Pharmacy and the [facility] Guidelines for Anticoagulation Therapy available on the [facility] intranet at: [email or web address]/Pharmacy/Pages/[place]_ ospitals_Guidelines_for_Anticoagu.aspx Performed By: #### 3 274-8 #### JACQUI Hayes ([id number]) [facility] ([facility]) [address] [place], [place] [id number] RESPIRATORY VIRAL PANELon ADENOVIRUS RVP, VIRC Not detected Normal Not Detected [facility] Comment on above: Result Comment: Dete cts Serotypes B and E. Detection of Serotype C may be limited. If Adenovirus infection is suspected and a Not Detected result is returned the sample should be re-tested for adenovirus using an independent method (e.g. [employer] Viracor Adenovirus Quantitative Real-time PCR test). Performed By: #### 2 524-7 #### JACQUI Hayes ([id number]) [facility] ([facility]) [address] [address] 86589 ENTEROVIRUS/RHINOVIRUS RVP, VIRC Not detected Normal Not Detected [facility] Comment on above: Performed By: #### 2 524-7 #### JACQUI Hayes ([id number]) [facility] ([facility]) [address] [place] [address] 26842 HUMAN BOCAVIRUS RVP, VIRC Not detected Normal Not Detected [facility] Comment on above: Performed By: #### 2 524-7 #### JACQUI Hayes ([id number]) [facility] ([facility]) [address] [place] [address] 25968 INFLUENZA A , VIRC Not detected Normal Not Detected Un [facility] Comment on above: Performed By: #### 2 524-7 #### JACQUI STYLES L ([id number]) [facility] ([facility]) [address] [place] [address] 90509 INFLUENZA A [id number] , VIRC Not detected Normal Not Detected [facility] Comment on above: Performed By: #### 2 524-7 #### JACQUI Hayes ([id number]) [facility] ([facility]) [address] [place] [address] 91705 INFLUENZA B PCR, VIRC Not detected Normal Not Detected [facility] Comment on above: Performed By: #### 2 524-7 #### JACQUI Hayes ([id number]) [facility] ([facility]) [address] [place] [address] 72224 METAPNEUMOVIRUS , VIRC Not detected Normal Not Detecte d [facility] Comment on above: Performed By: #### 2 524-7 #### JACQUI Hayes ([id number]) [facility] ([facility]) [address] [place] [address], [place] [address] PARAINFLUENZA PCR, VIRC Not detected Normal Not Detected [facility] Comment on above: Performed By: #### 2 524-7 #### JACQUI Hayes ([id number]) [facility] ([facility]) [address] [place] [address], [place] [address] RSV PCR, RVP, VIRC Not detected Normal Not Detected [facility] Comment on above: Result Comment: The Respiratory Syncytial Viral assay detects both types A and B, however it does not distinguish between the two. Target Enriched Multiplex Polymerase Chain Reaction (TEM-PCR) allows for the detection of multiple pathogens out of a single reaction. This test was developed and its performance characteristics determined by [employer]. It has not been cleared or approved by the U.S. Food and Drug Administration. Results should be used in conjunction with clinical findings, and should not form the sole basis for a diagnosis or treatment decision. TEM-PCR is a licensed technology of [employer]. Testing Performed at: [employer], [employer] [address] [place] [address], [address] [place] [address] Aerospace Stress Engineer: Silviano Araujo, PhD NORMA (ABB) [place] # [id number] FLAG Interpretation: A = Abnormal, H = High, L = Low Performed By: #### 2 524-7 #### JACQUI Hayes ([id number]) [facility] ([facility]) [address] [place] [address] 19007 SARS-CoV-2 (COVID-19) RNA ROBY+probe Ql (Unsp spec) Not detected Normal Not Detected [facility] Comment on above: Result Comment: This test does NOT assay for the novel 2019 Coronavirus out of [place]. This test detects the respiratory Coronaviruses: types 229E, OC43, NL63, and HKU1. Performed By: #### 2 524-7 #### JACQUI Hayes ([id number]) [facility] ([facility]) [address] [place] [address] 94072 Renal function 2000 panelon 06-09-2023 Albumin BCP dye [Mass/Vol] 3.1 g/dL Low 3.4-5.0 [facility] Comment on above: Performed By: #### 5 7021-8 #### JACQUI Hayes ([id number]) [facility] ([facility]) [address] [place] [address] 35355 Anion gap [Moles/Vol] 16 mmol/L Normal 10-20 [facility] Comment on above: Performed By: #### 5 7021-8 #### JACQUI STYLES L ([id number]) [facility] ([facility]) [address] [place] [address] 21742 Calcium [Mass/Vol] 8.4 mg/dL Low 8.6-10.6 [facility] Comment on above: Performed By: #### 5 7021-8 #### JACQUI STYLES L ([id number]) [facility] ([facility]) [address] [place] [address] 51775 Chloride [Moles/Vol] 93 mmol/L Low 98-107 [facility] Comment on above: Performed By: #### 5 7021-8 #### JACQUI STYLES L ([id number]) [facility] ([facility]) [address] [place] [address] 57903 CO2 [Moles/Vol] 25 mmol/L Normal 21-32 [facility] Comment on above: Performed By: #### 5 7021-8 #### JACQUI Hayes ([id number]) [facility] ([facility]) [address] [place] [address] 86358 Creatinine [Mass/Vol] 0.41 mg/dL Low 0.50-1.05 [facility] Comment on above: Performed By: #### 5 7021-8 #### JACQUI Hayes ([id number]) [facility] ([facility]) [address] [place] [address] 94175 GFR/1.73 sq M.predicted MDRD (S/P/Bld) [Vol rate/Area] mL/min/{1.73_m2} Normal >60 [facility] Comment on above: Result Comment: Calc ulations of estimated GFR are performed using the 2020 CKD-EPI Study Refit equation without the race variable for the IDMS-Traceable creatinine methods. https://jasn.asnjournals.org/content/early//ASN.84075 28855 Performed By: #### 5 7021-8 #### JACQUI Hayes ([id number]) [facility] ([facility]) [address] [place] [address] 55542 Glucose [Mass/Vol] 138 mg/dL High 74-99 [facility] Comment on above: Performed By: #### 5 7021-8 #### JACQUI Hayes ([id number]) [facility] ([facility]) [address] [place] [address] 32287 Phosphate [Mass/Vol] 3.1 mg/dL Normal 2.5-4.9 [facility] Comment on above: Result Comment: The performance characteristics of phosphorus testing in heparinized plasma have been validated by the individual laboratory site where testing is performed. Testing on heparinized plasma is not approved by the FDA; however, such approval is not necessary. Performed By: #### 5 7021-8 #### JACQUI Hayes ([id number]) [facility] ([facility]) [address] [place] [address] 34376 Potassium [Moles/Vol] 3.7 mmol/L Normal 3.5-5.3 [facility] Comment on above: Performed By: #### 5 7021-8 #### JACQUI Hayes ([id number]) [facility] ([facility]) [address] [place] [address] Sodium [Moles/Vol] 130 mmol/L Low 136-145 [facility] Comment on above: Performed By: #### 5 7021-8 #### JACQUI Hayes ([id number]) [facility] ([facility]) [address] [place] [address] 78140 Urea nitrogen [Mass/Vol] 14 mg/dL Normal 6-23 [facility] Comment on above: Performed By: #### 5 7021-8 #### JACQUI Hayes ([id number]) [facility] ([facility]) [address] [place] [address] 50360 SARS coronavirus 2 RNAon SARS-CoV-2 (COVID-19) RNA ROBY+probe Ql (Resp) Not detected Normal Not Detected [facility] Comment on above: Order Comment: This assay [...] and has been validated for use at [facility]. Negative results do not preclude COVID-19 infections and should not be used as the sole basis for diagnosis, treatment, or other management decisions. Performed By: #### 9 4500-6 #### JACQUI Hayes ([id number]) [facility] ([facility]) [address] [place] [address] 67148 Staphylococcus aureus.methic illin resistant isolateon 06-09-2023 MRSA isol Org specific cx Ql (Nose) Test: Staphylococcus aureus/MRSA colonization, Culture Specimen Source: Anterior Nares Specimen Type: Swab Specimen Date: 06/09/2023 11:22 AM Result Date: 06/11/2023 11:52 AM Result Status: Final result Abnormal: No Resulting Lab: [facility] [address] [place], [place] [address] CULTURE No Staphylococcus aureus isolated Normal [facility] Comment on above: Performed By: #### 3 4529-8 #### JACQUI Hayes ([id number]) [facility] ([facility]) [address] [place] [address] TRANSTHORACIC ECHO (TTE) COM PLETEon 06-09-2023 TRANSTHORACIC ECHO (TTE) COMPLETE [facility], [address] [place] [address] and TRANSTHORACIC ECHOCARDIOGRAM REPORT Patient Name: MODESTA COOK Adam Physician: [id number] Star Garnica MD Study Date: 06/09/2023 Ordering Provider: [id number] CLARI JEFFERS MRN/PID: [id number] Fellow: [id number] Emily Gil MD PhD Nurse: Date of /Age: 1 1940 / 82 years [employer] 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: Yamileth HANLEY Gender: F Additional Staff: Height: 160.00 cm Admit Date: 06/08/2023 Weight: 74.39 kg Admission Status: Inpatient - Routine BSA: 1.78 m2 Department Location: [facility] Non Invasive Blood Pressure: 156 /90 mmHg Study Type: TRANSTHORACIC ECHO (TTE) COMPLETE Diagnosis/ICD: Other pericardial effusion (noninflammatory)-I31.39 Indication: Pericardial effusion CPT Code: Echo Complete w Full Doppler-[id number] Patient History: Pertinent History: Paricardial effusion. Study [...] LA Area A2C: 20.6 cm2 LA Major Smyer A4C: 5.6 cm LA Major Smyer A2C: 5.6 cm RA VOLUME BY A/L METHOD: Normal Ranges: RA Vol A4C: 27.2 ml (8.3-19.5ml) RA Vol Index A4C: 15.3 ml/m2 RA Area A4C: 12.4 cm2 RA Major Smyer A4C: 4.8 cm AORTA MEASUREMENTS: Normal Ranges: [...] cm PULMONIC VALVE (more content not included)... [facility] Absolute lymphocyte countOrd ered By: Colton Mayfield on 06-08-2023 Lymphocytes Auto (Unsp spec) [#/Vol] 1.53 10*3/uL 0.83-4.51 [facility] Basophil percentageOrdered B y: Colton Mayfield on 06-08-2023 Basophils/100 WBC (Bld) 0.5 % 0-1 [facility] Chloride [Moles/Vol] 97 mmol/L 98-107 [facility] Eosinophils/100 WBC (Bld) 0.1 % 0-5 [facility] Glucose [Mass/Vol] 146 mg/dL 74-106 [facility] Comment on above: Fasting Glucose resu lt greater than or equal to 126 mg/dL suggests DIABETES MELLITUS per A.D.A. criteria. Neutrophils (Bld) [#/Vol] 11.0 10*3/uL 2.0-7.7 [facility] Neutrophils/100 WBC (Bld) 77.4 % 47-70 [facility] Potassium [Moles/Vol] 4.0 mmol/L 3.5-5.1 [facility] Sodium [Moles/Vol] 128 mmol/L 136-145 [facility] WBC (Bld) [#/Vol] 14.2 10*3/uL 4.4-11.0 [facility] Blood erythrocytes count (nu mber/volume)Ordered By: Colton Mayfield on 06-08-2023 RBC (Bld) [#/Vol] 3.12 10*6/uL 4.2-5.4 [facility] Blood hemoglobin measurement (mass/volume)Ordered By: Colton Mayfield on 06-08-2023 Hemoglobin (Bld) [Mass/Vol] 8.7 g/dL 12.0-15.0 [facility] Blood lymphocytes/100 leukoc ytesOrdered By: Colton Mayfield on 06-08-2023 Lymphocytes/100 WBC (Bld) 10.8 % 19-41 [facility] Blood monocytes/100 leukocyt esOrdered By: Colton Mayfield on 06-08-2023 Monocytes/100 WBC (Bld) 10.5 % 0-10 [facility] Blood platelet mean volumeOr dered By: Colton Mayfield on 06-08-2023 Platelet mean volume (Bld) [Entitic vol] 8.6 fL 6.2-12.0 [facility] CBC W Auto Differential pane l (Bld)on 06-08-2023 Basophils (Bld) [#/Vol] 0.06 x10*3/uL Normal 0.00-0.10 [facility] Comment on above: Performed By: #### 5 7021-8 #### JACQUI Hayes ([id number]) [facility] ([facility]) [address] [place] [address] 58144 Basophils/100 WBC (Bld) 0.3 % Normal 0.0-2.0 [facility] Comment on above: Performed By: #### 5 7021-8 #### JACQUI Hayes ([id number]) [facility] ([facility]) [address] [place] [address] 34948 Eosinophils (Bld) [#/Vol] 0.05 x10*3/uL Normal 0.00-0.40 [facility] Comment on above: Performed By: #### 5 7021-8 #### JACQUI Hayes ([id number]) [facility] ([facility]) [address] [place] [address] 73103 Eosinophils/100 WBC (Bld) 0.3 % Normal 0.0-6.0 [facility] Comment on above: Performed By: #### 5 7021-8 #### JACQUI Hayes ([id number]) [facility] ([facility]) [address] [place] [address] 89600 Erythrocyte distribution width (RBC) [Ratio] 13.2 % Normal 11.5-14.5 [facility] Comment on above: Performed By: #### 5 7021-8 #### JACQUI Hayes ([id number]) [facility] ([facility]) [address] [place] [address] 70271 Hematocrit (Bld) [Volume fraction] 26.8 % Low 36.0-46.0 [facility] Comment on above: Performed By: #### 5 7021-8 #### JACQUI Hayes ([id number]) [facility] ([facility]) [address] [place] [address] 51014 Hemoglobin (Bld) [Mass/Vol] 9.0 g/dL Low 12.0-16.0 [facility] Comment on above: Performed By: #### 5 7021-8 #### JACQUI Hayes ([id number]) [facility] ([facility]) [address] [place] [address] 57193 Immature granulocytes (Bld) [#/Vol] 0.14 x10*3/uL Normal 0.00-0.50 [facility] Comment on above: Performed By: #### 5 7021-8 #### JACQUI Hayes ([id number]) [facility] ([facility]) [address] [place] [address] 17146 Immature granulocytes/100 WBC (Bld) 0.8 % Normal 0.0-0.9 [facility] Comment on above: Result Comment: Lizzie ture Granulocyte Count (IG) includes promyelocytes, myelocytes and metamyelocytes but does not include bands. Percent differential counts (%) should be interpreted in the context of the absolute cell counts (cells/UL). Performed By: #### 5 7021-8 #### JACQUI Hayes ([id number]) [facility] ([facility]) [address] [place] [address] 11532 Lymphocytes (Bld) [#/Vol] 2.48 x10*3/uL Normal 0.80-3.00 [facility] Comment on above: Performed By: #### 5 7021-8 #### JACQUI Hayes ([id number]) [facility] ([facility] [facility] [address] [address] 53732 Lymphocytes/100 WBC (Bld) 14.3 % Normal 13.0-44.0 [facility] Comment on above: Performed By: #### 5 7021-8 #### JACQUI Hayes ([id number]) [facility] ([facility]) [address] [place] [address] 78307 MCH (RBC) [Entitic mass] 27.9 pg Normal 26.0-34.0 [facility] Comment on above: Performed By: #### 5 7021-8 #### JACQUI Hayes ([id number]) [facility] ([facility]) [address] [address] 31943 MCHC (RBC) [Mass/Vol] 33.6 g/dL Normal 32.0-36.0 [facility] Comment on above: Performed By: #### 5 7021-8 #### JACQUI Hayes ([id number]) [facility] ([facility]) [address] [address] 68255 MCV (RBC) [Entitic vol] 83 fL Normal 80-100 [facility] Comment on above: Performed By: #### 5 7021-8 #### JACQUI Hayes ([id number]) [facility] ([facility]) [address] [place] [address] 44814 Monocytes (Bld) [#/Vol] 1.90 x10*3/uL High 0.05-0.80 [facility] Comment on above: Performed By: #### 5 7021-8 #### JACQUI Hayes ([id number]) [facility] ([facility]) [address] [place] [address] 89816 Monocytes/100 WBC (Bld) 10.9 % Normal 2.0-10.0 [facility] Comment on above: Performed By: #### 5 7021-8 #### JACQUI Hayes ([id number]) [facility] ([facility]) [address] [place] [address] 46371 Neutrophils (Bld) [#/Vol] 12.75 x10*3/uL High 1.60-5.50 [facility] Comment on above: Result Comment: Perc ent differential counts (%) should be interpreted in the context of the absolute cell counts (cells/uL). Performed By: #### 5 7021-8 #### JACQUI Hayes ([id number]) [facility] ([facility]) [address] [place] [address] Neutrophils/100 WBC (Bld) 73.4 % Normal 40.0-80.0 [facility] Comment on above: Performed By: #### 5 7021-8 #### JACQUI Hayes ([id number]) [facility] ([facility]) [address] [place] [address] Nucleated RBC/100 WBC (Bld) [Ratio] 0.0 /100 WBCs Normal 0.0-0.0 [facility] Comment on above: Performed By: #### 5 7021-8 #### JACQUI Hayes ([id number]) [facility] ([facility]) [address] [place] [address] Platelet mean volume (Bld) [Entitic vol] 8.9 fL Normal 7.5-11.5 [facility] Comment on above: Performed By: #### 5 7021-8 #### JACQUI Hayes ([id number]) [facility] ([facility]) [address] [place] [address] 40882 Platelets (Bld) [#/Vol] 650 x10*3/uL High 150-450 [facility] Comment on above: Performed By: #### 5 7021-8 #### JACQUI Hayes ([id number]) [facility] ([facility]) [address] [place] [address] RBC (Bld) [#/Vol] 3.23 x10*6/uL Low 4.00-5.20 [facility] Comment on above: Performed By: #### 5 7021-8 #### JACQUI Hayes ([id number]) [facility] ([facility]) [address] [place] [address] WBC (Bld) [#/Vol] 17.4 x10*3/uL High 4.4-11.3 [facility] Comment on above: Performed By: #### 5 7021-8 #### JACQUI Hayes ([id number]) [facility] ([facility]) [address] [place] [address] Comprehensive metabolic 2000 panelon 06-08-2023 Albumin BCP dye [Mass/Vol] 3.3 g/dL Low 3.4-5.0 [facility] Comment on above: Performed By: #### 2 4323-8 #### JACQUI Hayes ([id number]) [facility] ([facility]) [address] [place] [address] ALP [Catalytic activity/Vol] 149 U/L High 33-136 [facility] Comment on above: Performed By: #### 2 4323-8 #### JACQUI Hayes ([id number]) [facility] ([facility]) [address] [place] [address] 23695 ALT With P-5'-P [Catalytic activity/Vol] 50 U/L High 7-45 [facility] Comment on above: Result Comment: Nancy ents treated with Sulfasalazine may generate falsely decreased results for ALT. Performed By: #### 2 4323-8 #### JACQUI Hayes ([id number]) [facility] ([facility]) [address] [place] [address] Anion gap [Moles/Vol] 17 mmol/L Normal 10-20 [facility] Comment on above: Performed By: #### 2 4323-8 #### JACQUI Hayes ([id number]) [facility] ([facility]) [address] [place] [address] AST With P-5'-P [Catalytic activity/Vol] 27 U/L Normal 9-39 [facility] Comment on above: Performed By: #### 2 4323-8 #### JACQUI Hayes ([id number]) [facility] ([facility]) [address] [place] [address] Bilirubin [Mass/Vol] 0.6 mg/dL Normal 0.0-1.2 [facility] Comment on above: Performed By: #### 2 4323-8 #### JACQUI STYLES L ([id number]) [facility] ([facility]) [address] [place] [address] 26160 Calcium [Mass/Vol] 8.8 mg/dL Normal 8.6-10.6 [facility] Comment on above: Performed By: #### 2 4323-8 #### JACQUI STYLES L ([id number]) [facility] ([facility]) [address] [place] [address] 81768 Chloride [Moles/Vol] 92 mmol/L Low 98-107 [facility] Comment on above: Performed By: #### 2 4323-8 #### JACQUI STYLES L ([id number]) [facility] ([facility]) [address] [place] [address] 72692 CO2 [Moles/Vol] 24 mmol/L Normal 21-32 [facility] Comment on above: Performed By: #### 2 4323-8 #### JACQUI STYLES L ([id number]) [facility] ([facility]) [address] [place] [address] 46600 Creatinine [Mass/Vol] 0.50 mg/dL Normal 0.50-1.05 [facility] Comment on above: Performed By: #### 2 4323-8 #### JACQUI STYLES L ([id number]) [facility] ([facility]) [address] [place] [address] 78466 GFR/1.73 sq M.predicted MDRD (S/P/Bld) [Vol rate/Area] mL/min/{1.73_m2} Normal >60 [facility] Comment on above: Result Comment: Calc ulations of estimated GFR are performed using the 2020 CKD-EPI Study Refit equation without the race variable for the IDMS-Traceable creatinine methods. https://jasn.asnjournals.org/content//ASN.94467 43444 Performed By: #### 2 4323-8 #### JACQUI DOWNEYMOTZER L ([id number]) [facility] ([facility]) [address] [place] [address] 03244 Glucose [Mass/Vol] 126 mg/dL High 74-99 [facility] Comment on above: Performed By: #### 2 4323-8 #### JACQUI DOWNEYMOTZER L ([id number]) [facility] ([facility]) [address] [place] [address] 80436 Potassium [Moles/Vol] 4.7 mmol/L Normal 3.5-5.3 [facility] Comment on above: Performed By: #### 2 4323-8 #### JACQUI DOWNEYMOTZER L ([id number]) [facility] ([facility]) [address] [address] 99653 Protein [Mass/Vol] 6.7 g/dL Normal 6.4-8.2 [facility] Comment on above: Performed By: #### 2 4323-8 #### JACQUI DOWNEYMOTZER L ([id number]) [facility] ([facility]) [address] [place] [address] 86807 Sodium [Moles/Vol] 128 mmol/L Low 136-145 [facility] Comment on above: Performed By: #### 2 4323-8 #### JACQUI DOWNEYMOTZER L ([id number]) [facility] ([facility]) [address] [place] [address] 34814 Urea nitrogen [Mass/Vol] 18 mg/dL Normal 6-23 [facility] Comment on above: Performed By: #### 2 4323-8 #### JACQUI DOWNEYMOTZER L ([id number]) [facility] ([facility]) [address] [place] [address] 06037 Culture, urineOrdered By: Aissatou Mayfield on 06-08-2023 Bacteria identified Cx Nom (U) Culture exhibits no growth. [facility] Bacteria identified Cx Nom (U) Culture exhibits no growth. [facility] Determination of erythrocyte mean corpuscular volume (MCV)Ordered By: Colton Mayfield on 06-08-2023 MCV (RBC) [Entitic vol] 85.9 fL 81-99 [facility] Gas and Carbon monoxide and Electrolytes panel (BldA)on 06-08-2023 Anion gap 4 (BldA) [Moles/Vol] 8 mmo/L Low 10-25 [facility] Comment on above: Performed By: #### 9 3685-6 #### JACQUI Hayes ([id number]) [facility] ([facility]) [address] [place] [address] Base excess Calc (Bld) [Moles/Vol] 2.6 mmol/L Normal -2.0-3.0 [facility] Comment on above: Performed By: #### 9 1015-6 #### JACQUI Hayes ([id number]) [facility] ([facility]) [address] [place] [address] Calcium.ionized (BldA) [Moles/Vol] 1.14 mmol/L Normal 1.10-1.33 [facility] Comment on above: Performed By: #### 9 1855-6 #### JACQUI Hayes ([id number]) [facility] ([facility]) [address] [place] [address] Chloride (BldA) [Moles/Vol] 96 mmol/L Low 98-107 [facility] Comment on above: Performed By: #### 9 3685-6 #### JACQUI Hayes ([id number]) [facility] ([facility]) [address] [place] [address] CO2 (Bld) [Partial pressure] 31 mm Hg Low 38-42 [facility] Comment on above: Performed By: #### 9 3685-6 #### JACQUI Hayes ([id number]) [facility] ([facility]) [address] [place] [address] 96983 Glucose [Mass/Vol] 135 mg/dL High 74-99 [facility] Comment on above: Performed By: #### 9 1335-6 #### JACQUI Hayes ([id number]) [facility] ([facility]) [address] [place] [address] 38431 HCO3 (Bld) [Moles/Vol] 25.3 mmol/L Normal 22.0-26.0 [facility] Comment on above: Performed By: #### 9 3685-6 #### JACQUI Hayes ([id number]) [facility] ([facility]) [address] [place] [address] 64649 Hematocrit Est (Bld) [Volume fraction] 28.0 % Low 36.0-46.0 [facility] Comment on above: Performed By: #### 9 2025-6 #### JACQUI Hayes ([id number]) [facility] ([facility]) [address] [place] [address] 52285 Hemoglobin (Bld) [Mass/Vol] 9.4 g/dL Low 12.0-16.0 [facility] Comment on above: Performed By: #### 9 1335-6 #### JACQUI Hayes ([id number]) [facility] ([facility]) [address] [place] [address] 86060 Inhaled oxygen concentration 40 % Normal [facility] Comment on above: Performed By: #### 9 3875-6 #### JACQUI Hayes ([id number]) [facility] ([facility]) [address] [place] [address] 13021 Lactate (BldA) [Moles/Vol] 1.0 mmol/L Normal 0.4-2.0 [facility] Comment on above: Performed By: #### 9 3685-6 #### JACQUI Hayes ([id number]) [facility] ([facility]) [address] [place] [address] 69805 Oxygen (Bld) [Partial pressure] 77 mm Hg Low 85-95 [facility] Comment on above: Performed By: #### 9 2575-6 #### JACQUI Hayes ([id number]) [facility] ([facility]) [address] [place] [address] 67764 Oxyhemoglobin (BldA) [Mass fraction] 95.9 % Normal 94.0-98.0 [facility] Comment on above: Performed By: #### 9 3685-6 #### JACQUI Hayes ([id number]) [facility] ([facility]) [address] [place] [address] 99687 pH (Bld) 7.52 [pH] High 7.38-7.42 [facility] Comment on above: Performed By: #### 9 3685-6 #### JACQUI Hayes ([id number]) [facility] ([facility]) [address] [place] [address] 32599 Potassium (BldA) [Moles/Vol] 4.4 mmol/L Normal 3.5-5.3 [facility] Comment on above: Performed By: #### 9 3685-6 #### JACQUI Hayes ([id number]) [facility] ([facility]) [address] [place] [address] 84934 Sodium (BldA) [Moles/Vol] 125 mmol/L Low 136-145 [facility] Comment on above: Performed By: #### 9 3685-6 #### JACQUI Hayes ([id number]) [facility] ([facility]) [address] [place] [address] 37773 Hematocrit Auto (Bld) [Volum e fraction]Ordered By: Colton Mayfield on 06-08-2023 Hematocrit (Bld) [Volume fraction] 26.8 % 37-47 [facility] - Chemistry and C hemistry - challengeOrdered By: Colton Mayfield on 06-08-2023 CO2 [Moles/Vol] 25.0 mmol/L 21.0-32.0 [facility] Urea nitrogen/Creatinine [Mass ratio] 39.1 mg/mg 10-20 [facility] - Chemistry and C hemistry - challengeOrdered By: Sivan Martinez on 06-08-2023 Natriuretic peptide B (Bld) [Mass/Vol] 187.4 pg/mL 0-100 [facility] - Hematology and Cell countsOrdered By: Colton Mayfield on 06-08-2023 Erythrocyte distribution width (RBC) [Entitic vol] 42.4 fL 35.1-43.9 [facility] Erythrocyte distribution width (RBC) [Ratio] 13.5 % 11.6-14.6 [facility] Immature granulocytes/100 WBC (Bld) 0.700 % 0.0-0.9 [facility] Comment on above: IG% - Immature Granu locytes (promyelocytes, myelocytes and metamyelocytes) > 1% indicates that a LEFT SHIFT is Present. MCH (RBC) [Entitic mass] 27.9 pg 27.0-32.0 [facility] Nucleated RBC/100 WBC (Bld) [Ratio] 0 % 0-5 [facility] Lactateon 06-08-2023 Lactate [Moles/Vol] 1.3 mmol/L Normal 0.4-2.0 [facility] Comment on above: Order Comment: Venip uncture immediately after or during the administration of Metamizole may lead to falsely low results. Testing should be performed immediately prior to Metamizole dosing. Performed By: #### 2 524-7 #### JACQUI Hayes ([id number]) [facility] ([facility]) [address] [place] [address] Legionella sp Agon Legionella sp Ag Ql (U) Negative Normal Negative [facility] Comment on above: Performed By: #### 5 7021-8 #### JACQUI Hayes ([id number]) [facility] ([facility]) [address] [place] [address] MCHC Auto (RBC) [Mass/Vol]Or dered By: Colton Mayfield on 06-08-2023 MCHC (RBC) [Mass/Vol] 32.5 g/dL 32-36 [facility] 06-08-2023 Magnesium [Mass/Vol] 2.04 mg/dL Normal 1.60-2.40 [facility] Comment on above: Performed By: #### 1 9123-9 #### JACQUI Hayes ([id number]) [facility] ([facility]) [address] [place] [address] 33282 Natriuretic peptide B [Mass/ Vol]on 06-08-2023 Natriuretic peptide B (Bld) [Mass/Vol] 308 pg/mL High 0-99 [facility] Comment on above: Order Comment: <100 pg/mL [...] By: #### 3 0934-4 #### JACQUI Hayes ([id number]) [facility] ([facility]) [address] [place] [address] No Panel InformationOrdered By: Colton Mayfield on 06-08-2023 Streptococcus pneumoniae Antigen ([facility] Streptococcus pneumoniae Antigen ([facility] Estimated Creatinine Clearance Calc 35.26 ml/min [facility] Estimated GFR (MDRD) Amer 147 mL/min >60 [facility] Comment on above: GFR Calc Estimated GFR (MDRD) Non-Af Amer 122 mL/min >60 [facility] Comment on above: Non- GFR Calc Thyroid Stimulating Hormone (TSH) 5.56 uIU/mL 0.358-3.74 [facility] No Panel InformationOrdered By: Sivan Martinez on 06-08-2023 D-Dimer Quantitative (PE/DVT) 5.62 FEU/ug/m 0.27-0.49 [facility] Comment on above: D-Dimer ELEVATED (>0 .49): Additional studies and clinicalassessments are indicated to conclude diagnosis of:Deep Vein Thrombosis (DVT) or Pulmonary Embolism (PE)CRITICAL VALUE VERIFIED. [facility] [place].RESULTS READ BACK BY SAME . Troponin I High Sensitivity 10 pg/mL 3.0-54.0 [facility] Comment on above: Please Note: New Lala t Units and Gender Specific Reference Ranges. For more information see Policy Stat Procedure Tracy High Sensitivity Troponin (TNIH) and attachments. PT and aPTT panel Coag (PPP) on 06-08-2023 aPTT Coag (PPP) [Time] 28 s Normal 27-38 [facility] Comment on above: Order Comment: The A PTT is no longer used for monitoring Unfractionated Heparin Therapy. For monitoring Heparin Therapy, use the Heparin Assay. Performed By: #### 3 4529-8 #### JACQUI Hayes ([id number]) [facility] ([facility]) [id number] [place] [address] 21921 INR Coag (PPP) [Relative time] 1.3 High 0.9-1.1 [facility] Comment on above: Order Comment: The A PTT is no longer used for monitoring Unfractionated Heparin Therapy. For monitoring Heparin Therapy, use the Heparin Assay. Performed By: #### 3 4529-8 #### JACQUI Hayes ([id number]) [facility] ([facility]) [address] [place] [address] 32956 PT Coag (PPP) [Time] 14.6 s High 9.8-12.8 [facility] Comment on above: Order Comment: The A PTT is no longer used for monitoring Unfractionated Heparin Therapy. For monitoring Heparin Therapy, use the Heparin Assay. Performed By: #### 3 4529-8 #### JACQUI Hayes ([id number]) [facility] ([facility]) [address] [place] [address] 78646 Platelets bldOrdered By: Dayami Mayfield on 06-08-2023 Platelets (Bld) [#/Vol] 549 10*3/uL 150-450 [facility] Respiratory pathogens detect ion panel by molecular detection methodOrdered By: Sivan Martinez on 06-08-2023 Respiratory pathogens DNA and RNA panel ROBY+probe (Resp) [facility] Respiratory pathogens DNA and RNA panel ROBY+probe (Resp) [facility] Serum or plasma calcium parag urement (mass/volume)Ordered By: Colton Mayfield on 06-08-2023 Calcium [Mass/Vol] 8.6 mg/dL 8.5-10.1 [facility] Serum or plasma creatinine m easurement (mass/volume)Ordered By: Colton Mayfield on 06-08-2023 Creatinine [Mass/Vol] 0.51 mg/dL 0.55-1.02 [facility] Comment on above: The validity of the calculated GFR & GFRAA in patients over 70 years has not been determined. Clinical correlation is essential. Serum or plasma urea nitroge n measurement (mass/volume)Ordered By: Colton Mayfield on 06-08-2023 Urea nitrogen [Mass/Vol] 20 mg/dL 03-02 [facility] Serum procalcitonin measurem entOrdered By: Sivan Martinez on 06-08-2023 Procalcitonin [Mass/Vol] 0.09 ng/mL 0.00-0.09 [facility] Comment on above: A procalcitonin (PCT ) [...] pneumoniae Ag Ql (U) Positive Abnormal Negative [facility] Comment on above: Performed By: #### 5 7021-8 #### JACQUI Hayes ([id number]) [facility] ([facility]) [address] [place] [address] TRANSTHORACIC ECHO (TTE) [facility] 06-08-2023 TRANSTHORACIC ECHO (TTE) [facility], [address] [place] [address] and TRANSTHORACIC ECHOCARDIOGRAM REPORT Patient Name: MODESTA COOK Adam Physician: [id number] Star Garnica MD Study Date: 06/08/2023 Ordering Provider: [id number] JAYLEN CARR MRN/PID: [id number] Fellow: [id number] Jaylen Carr MD Nurse: Date of /Age: 1 1940 / 82 years [employer] 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: [id number] Jaylen Carr MD Gender: F Additional Staff: BSA: m2 Study Type: TRANSTHORACIC ECHO (TTE) LIMITED Diagnosis/ICD: Other pericardial effusion (noninflammatory)-I31.39 Indication: Pericardial Effusion CPT Code: Echo Limited-35431; Doppler Limited-59594; Color Doppler-89320 Study Detail: The following Echo studies were [...] VALVE/RVSP: Normal Ranges: IVC Diam: 2.30 cm [id number] Star Garnica MD Electronically signed on 06/09/2023 at 9:39:34 AM Final Normal [facility] Thin prep Papanicolaou smear with manual screeningOrdered By: Colton Mayfield on 06-08-2023 Thin prep Papanicolaou smear with manual screening 6 -15 [facility] Troponin I.cardiac panelon 1 Tropinin I.cardiac panel High sensitivity method 12 ng/L Normal 0-34 [facility] Comment on above: Order Comment: Less than [...] performed using a different testing methodology at [facility] than at other [facility]. Direct result comparisons should only be made within the same method. Performed By: #### 8 9577-1 #### JACQUI Hayes ([id number]) [facility] ([facility]) [address] [place] [address] Urine Legionella pneumophila antigen detectionOrdered By: Colton Mayfield on 06-08-2023 L. pneumophila Ag Ql (U) [facility] L. pneumophila Ag Ql (U) [facility] XR CHEST 1 VIEWon 06-08-2023 XR CHEST 1 VIEW Interpreted By: Jaylen Person, STUDY: XR CHEST 1 VIEW; 06/08/2023 10:55 pm INDICATION: Signs/Symptoms:pleural effusion. COMPARISON: None. ACCESSION NUMBER(S): [id number] ORDERING CLINICIAN: АНДРЕЙ MORGAN FINDINGS: Radiopaque monitoring [...] Mediastinal and parenchymal calcified granulomas. Signed by: Jaylen Saleh 06/10/2023 7:00 AM Dictation workstation: [id number] [facility] Absolute lymphocyte countOrd ered By: Angelica Brown on 06-07-2023 Lymphocytes Auto (Unsp spec) [#/Vol] 1.17 10*3/uL 0.83-4.51 [facility] Basophil percentageOrdered B y: Colton Mayfield on 06-07-2023 Lactate [Moles/Vol] 1.0 mmol/L 0.4-2.0 [facility] Basophil percentage 2.8 mg/dL 2.5-4.9 [facility] Basophil percentageOrdered B y: Angelica Brown on 06-07-2023 Basophils/100 WBC (Bld) 0.5 % 0-1 [facility] Bilirubin [Mass/Vol] 0.40 mg/dL 0.20-1.00 [facility] Comment on above: For patients on eltr ombopag therapy, use of Dimension Tracy TBIL is not recommended. Chloride [Moles/Vol] 94 mmol/L 98-107 [facility] Eosinophils/100 WBC (Bld) 0.2 % 0-5 [facility] Glucose [Mass/Vol] 255 mg/dL 74-106 [facility] [facility] Comment on above: Glucose result great er than or equal to 200 mg/dLsuggests DIABETES MELLITUS per A.D.A. criteria. Neutrophils (Bld) [#/Vol] 12.6 10*3/uL 2.0-7.7 [facility] Neutrophils/100 WBC (Bld) 81.5 % 47-70 [facility] Potassium [Moles/Vol] 3.7 mmol/L 3.5-5.1 [facility] Protein [Mass/Vol] 7.1 g/dL 6.4-8.2 [facility] Sodium [Moles/Vol] 126 mmol/L 136-145 [facility] WBC (Bld) [#/Vol] 15.5 10*3/uL 4.4-11.0 [facility] Blood erythrocytes count (nu mber/volume)Ordered By: Angelica Brown on 06-07-2023 RBC (Bld) [#/Vol] 3.36 10*6/uL 4.2-5.4 [facility] Blood hemoglobin measurement (mass/volume)Ordered By: Angelica Brown on 06-07-2023 Hemoglobin (Bld) [Mass/Vol] 9.3 g/dL 12.0-15.0 [facility] Blood lymphocytes/100 leukoc ytesOrdered By: Angelica Brown on 06-07-2023 Lymphocytes/100 WBC (Bld) 7.6 % 19-41 [facility] Blood monocytes/100 leukocyt esOrdered By: Angelica Brown on 06-07-2023 Monocytes/100 WBC (Bld) 9.3 % 0-10 [facility] Blood platelet mean volumeOr dered By: Angelica Brown on 06-07-2023 Platelet mean volume (Bld) [Entitic vol] 9.2 fL 6.2-12.0 [facility] Determination of erythrocyte mean corpuscular volume (MCV)Ordered By: Angelica Brown on 06-07-2023 MCV (RBC) [Entitic vol] 88.1 fL 81-99 [facility] Hematocrit Auto (Bld) [Volum e fraction]Ordered By: Angelica Brown on 06-07-2023 Hematocrit (Bld) [Volume fraction] 29.6 % 37-47 [facility] INR in Blood by Coagulation assayOrdered By: Colton Mayfield on 06-07-2023 INR Coag (Bld) [Relative time] 1.1 {INR} [facility] Laboratory - Chemistry and C hemistry - challengeOrdered By: Colton Mayfield on 06-07-2023 CK [Catalytic activity/Vol] 50 U/L 26-192 [facility] Magnesium [Mass/Vol] 2.2 mg/dL 1.6-2.6 [facility] Laboratory - Chemistry and C hemistry - challengeOrdered By: Angelica Brown on 06-07-2023 ALP [Catalytic activity/Vol] 145 U/L 45-117 [facility] ALT [Catalytic activity/Vol] 52 U/L 13-56 [facility] CO2 [Moles/Vol] 26.0 mmol/L 21.0-32.0 [facility] Globulin (S) [Mass/Vol] 4.6 g/dL 2.2-4.2 [facility] Urea nitrogen/Creatinine [Mass ratio] 42.7 mg/mg 10-20 [facility] Laboratory - CoagulationOrde red By: Colton Mayfield on 06-07-2023 aPTT Coag (Bld) [Time] 32.9 s 24.1-36.2 [facility] PT Coag (PPP) [Time] 14.3 s 11.7-14.9 [facility] Laboratory - Hematology and Cell countsOrdered By: Angelica Brown on 06-07-2023 Erythrocyte distribution width (RBC) [Entitic vol] 43.4 fL 35.1-43.9 [facility] Erythrocyte distribution width (RBC) [Ratio] 13.4 % 11.6-14.6 [facility] Immature granulocytes/100 WBC (Bld) 0.900 % 0.0-0.9 [facility] Comment on above: IG% - Immature Granu locytes (promyelocytes, myelocytes and metamyelocytes) > 1% indicates that a LEFT SHIFT is Present. MCH (RBC) [Entitic mass] 27.7 pg 27.0-32.0 [facility] Nucleated RBC/100 WBC (Bld) [Ratio] 0 % 0-5 [facility] Laboratory - Microbiology an d Antimicrobial susceptibilityOrdered By: Colton Mayfield on 06-07-2023 Bacteria identified Cx Nom (Bld) No growth in 5 days. [facility] Bacteria identified Cx Nom (Bld) [facility] ([facility] [Mass/Vol]Or dered By: Angelica Brown on 06-07-2023 MCHC (RBC) [Mass/Vol] 31.4 g/dL 32-36 [facility] No Panel InformationOrdered By: Angelica Brown on 06-07-2023 Estimated GFR (MDRD) Amer 115 mL/min >60 [facility] Comment on above: GFR Calc Estimated GFR (MDRD) Non-Af Amer 95 mL/min >60 [facility] Comment on above: Non- GFR Calc Troponin I High Sensitivity 8 pg/mL 3.0-54.0 [facility] Comment on above: Please Note: New Lala t Units and Gender Specific Reference Ranges. For more information see Policy Stat Procedure [place] High Sensitivity Troponin (TNIH) and attachments. Platelets bldOrdered By: Rogers Brown on 06-07-2023 Platelets (Bld) [#/Vol] 598 10*3/uL 150-450 [facility] Serum or plasma albumin parag urement (mass/volume)Ordered By: Angelica Brown on 06-07-2023 Albumin [Mass/Vol] 2.5 g/dL 3.2-5.0 [facility] Serum or plasma albumin/glob ulin mass ratioOrdered By: Angelica Brown on 06-07-2023 Albumin/Globulin [Mass ratio] 0.5 {ratio} 0.9-2.4 [facility] Serum or plasma calcium parag urement (mass/volume)Ordered By: Angelica Brown on 06-07-2023 Calcium [Mass/Vol] 8.6 mg/dL 8.5-10.1 [facility] Serum or plasma creatinine m easurement (mass/volume)Ordered By: Angelica Brown on 06-07-2023 Creatinine [Mass/Vol] 0.63 mg/dL 0.55-1.02 [facility] Comment on above: The validity of the calculated GFR & GFRAA in patients over 70 years has not been determined. Clinical correlation is essential. Serum or plasma urea nitroge n measurement (mass/volume)Ordered By: Angelica Brown on 06-07-2023 Urea nitrogen [Mass/Vol] 27 mg/dL 7-18 [facility] Thin prep Papanicolaou smear with manual screeningOrdered By: Angelica Brown on 06-07-2023 Thin prep Papanicolaou smear with manual screening 49 U/L 15-37 [facility] Thin prep Papanicolaou smear with manual screening 6 5-15 [facility] Whole blood hemoglobin A1c/t otal hemoglobin ratio (mass fraction)Ordered By: Angelica Brown on 06-07-2023 HbA1c (Bld) [Mass fraction] 5.9 % 3.8-5.6 [facility] Comment on above: Normal < 5.7 % Predi abetic 5.7 - 6.4 % Diabetic >or= 6.5 % Please note range changes. Absolute lymphocyte countOrd ered By: Anjum Wilson on 05-26-2023 Lymphocytes Auto (Unsp spec) [#/Vol] 1.77 10*3/uL 0.83-4.51 [facility] Basophil percentageOrdered B y: Anjum Wilson on 05-26-2023 Basophils/100 WBC (Bld) 1.2 % 0-1 [facility] Chloride [Moles/Vol] 103 mmol/L 98-107 [facility] Eosinophils/100 WBC (Bld) 6.0 % 0-5 [facility] Glucose [Mass/Vol] 118 mg/dL 74-106 [facility] Comment on above: Fasting Glucose resu lt from 100 to 125 mg/dL suggests IMPAIRED HOMEOSTASIS per A.D.A. criteria. Neutrophils (Bld) [#/Vol] 5.9 10*3/uL 2.0-7.7 [facility] Neutrophils/100 WBC (Bld) 63.0 % 47-70 [facility] Potassium [Moles/Vol] 3.1 mmol/L 3.5-5.1 [facility] Sodium [Moles/Vol] 138 mmol/L 136-145 [facility] WBC (Bld) [#/Vol] 9.4 10*3/uL 4.4-11.0 [facility] Blood erythrocytes count (nu mber/volume)Ordered By: Anjum Wilson on 05-26-2023 RBC (Bld) [#/Vol] 3.60 10*6/uL 4.2-5.4 [facility] Blood hemoglobin measurement (mass/volume)Ordered By: Anjum Wilson on 05-26-2023 Hemoglobin (Bld) [Mass/Vol] 10.2 g/dL 12.0-15.0 [facility] Blood lymphocytes/100 leukoc ytesOrdered By: Anjum Wilson on 05-26-2023 Lymphocytes/100 WBC (Bld) 18.8 % 19-41 [facility] Blood monocytes/100 leukocyt esOrdered By: Anjum Wilson on 05-26-2023 Monocytes/100 WBC (Bld) 9.9 % 0-10 [facility] Blood platelet mean volumeOr dered By: Anjum Wilson on 05-26-2023 Platelet mean volume (Bld) [Entitic vol] 8.7 fL 6.2-12.0 [facility] Determination of erythrocyte mean corpuscular volume (MCV)Ordered By: Anjum Wilson on 05-26-2023 MCV (RBC) [Entitic vol] 88.6 fL 81-99 [facility] Hematocrit Auto (Bld) [Volum e fraction]Ordered By: Anjum Wilson on 05-26-2023 Hematocrit (Bld) [Volume fraction] 31.9 % 37-47 [facility] Laboratory - Chemistry and C hemistry - challengeOrdered By: Anjum Wilson on 05-26-2023 CO2 [Moles/Vol] 30.0 mmol/L 21.0-32.0 [facility] Urea nitrogen/Creatinine [Mass ratio] 24.5 mg/mg 10-20 [facility] Laboratory - Chemistry and C hemistry - challengeOrdered By: Sivan Martinez on 05-26-2023 Free T4 [Mass/Vol] 1.12 ng/dL 0.76-1.46 [facility] Laboratory - Hematology and Cell countsOrdered By: Anjum Wilson on 05-26-2023 Erythrocyte distribution width (RBC) [Entitic vol] 42.9 fL 35.1-43.9 [facility] Erythrocyte distribution width (RBC) [Ratio] 13.2 % 11.6-14.6 [facility] Immature granulocytes/100 WBC (Bld) 1.100 % 0.0-0.9 [facility] Comment on above: IG% - Immature Granu locytes (promyelocytes, myelocytes and metamyelocytes) > 1% indicates that a LEFT SHIFT is Present. MCH (RBC) [Entitic mass] 28.3 pg 27.0-32.0 [facility] Nucleated RBC/100 WBC (Bld) [Ratio] 0 % 0-5 [facility] MCHC Auto (RBC) [Mass/Vol]Or dered By: Anjum Wilson on 05-26-2023 MCHC (RBC) [Mass/Vol] 32.0 g/dL 32-36 [facility] No Panel InformationOrdered By: Anjum Wilson on 05-26-2023 Estimated Creatinine Clearance Calc 33.71 ml/min [facility] Estimated GFR (MDRD) Amer 130 mL/min >60 [facility] Comment on above: GFR Calc Estimated GFR (MDRD) Non-Af Amer 107 mL/min >60 [facility] Comment on above: Non- GFR Calc Streptococcus pneumoniae Antigen (M [facility] Platelets bldOrdered By: Greg Wilson on 05-26-2023 Platelets (Bld) [#/Vol] 552 10*3/uL 150-450 [facility] Serum or plasma calcium parag urement (mass/volume)Ordered By: Anjum Wilson on 05-26-2023 Calcium [Mass/Vol] 8.9 mg/dL 8.5-10.1 [facility] Serum or plasma creatinine m easurement (mass/volume)Ordered By: Anjum Wilson on 05-26-2023 Creatinine [Mass/Vol] 0.57 mg/dL 0.55-1.02 [facility] Comment on above: The validity of the calculated GFR & GFRAA in patients over 70 years has not been determined. Clinical correlation is essential. Serum or plasma urea nitroge n measurement (mass/volume)Ordered By: Anjum Wilson on 05-26-2023 Urea nitrogen [Mass/Vol] 14 mg/dL 7-18 [facility] Thin prep Papanicolaou smear with manual screeningOrdered By: Anjum Wilson on 05-26-2023 Thin prep Papanicolaou smear with manual screening 5 5-15 [facility] Urine Legionella pneumophila antigen detectionOrdered By: Anjum Wilson on 05-26-2023 L. pneumophila Ag Ql (U) [facility] Basophil percentageOrdered B y: Reinier Toney on 05-25-2023 Basophil percentage 0-5 SEEN /hpf 0-5 [facility] Bilirubin Test strip Ql (U)O rdered By: Reinier Toney on 05-25-2023 Bilirubin Ql (U) Negative Negative [facility] COVID-19 virus antigen assay Ordered By: Anjum Wilson on 05-25-2023 SARS-CoV-2 (COVID-19) Ag IA.rapid Ql (Resp) [facility] SARS-CoV-2 (COVID-19) Ag IA.rapid Ql (Resp) [facility] Ketones Test strip Ql (U)Ord ered By: Reinier Toney on 05-25-2023 Ketones Ql (U) Negative Negative [facility] Laboratory - Chemistry and C hemistry - challengeOrdered By: Reinier Toney on 05-25-2023 Natriuretic peptide B (Bld) [Mass/Vol] 292.5 pg/mL 0-100 [facility] Mucus LM Ql (Urine sed)Order ed By: Reinier Toney on 05-25-2023 Mucus Ql (Urine sed) 0 SEEN /hpf [facility] Nitrite Test strip Ql (U)Ord ered By: Reinier Toney on 05-25-2023 Nitrite Ql (U) Negative Negative [facility] No Panel InformationOrdered By: Anjum Wilson on 05-25-2023 Streptococcus pneumoniae Antigen (M [facility] Thyroid Stimulating Hormone (TSH) 8.48 uIU/mL 0.358-3.74 [facility] No Panel InformationOrdered By: Reinier Toney on 05-25-2023 Troponin I High Sensitivity 12 pg/mL 3.0-54.0 [facility] Comment on above: Please Note: New Lala t Units and Gender Specific Reference Ranges. For more information see Policy Stat Procedure [place] High Sensitivity Troponin (TNIH) and attachments. Protein Test strip Ql (U)Ord ered By: Reinier Toney on 05-25-2023 Protein Ql (U) Negative Negative [facility] Squamous epithelial cells de tection in urine sediment by light microscopyOrdered By: Reinier Toney on 05-25-2023 Epithelial cells.squamous LM Ql (Urine sed) 5-10 SEEN /hpf 5-10 [facility] Urine Legionella pneumophila antigen detectionOrdered By: Anjum Wilson on 05-25-2023 L. pneumophila Ag Ql (U) [facility] Urine blood detectionOrdered By: Reinier Toney on 05-25-2023 RBC Ql (U) 10 /ul Negative [facility] RBC Ql (U) 0 SEEN /hpf 0-5 [facility] Urine clarityOrdered By: Chuckie Toney on 05-25-2023 Clarity (U) Clear Clear [facility] Urine color determinationOrd ered By: Reinier Toney on 05-25-2023 Color (U) Yellow Yellow [facility] Urine glucose detectionOrder ed By: Reinier Toney on 05-25-2023 Glucose Ql (U) Normal mg/dl Normal [facility] Urine leukocyte esterase det ection by dipstickOrdered By: Reinier Toney on 05-25-2023 Leukocyte esterase Test strip Ql (U) 500 /ul Negative [facility] Urine pHOrdered By: Reinier Toney on 05-25-2023 pH (U) 6.0 [pH] 5.0 - 8.0 [facility] Urine sediment bacteria coun t by microscopy (number/high power field)Ordered By: Reinier Toney on 05-25-2023 Bacteria LM.HPF (Urine sed) [#/Area] 1 /[HPF] None Seen [facility] Urine specific gravity measu rementOrdered By: Reinier Toney on 05-25-2023 Specific gravity (U) [Rel density] 1.010 1.002-1.030 [facility] Urobilinogen Auto test strip Ql (U)Ordered By: Reinier Toney on 05-25-2023 Urobilinogen Ql (U) Normal mg/dl Normal [facility] Basophil percentageOrdered B y: Srikanth Lewis on 02-10-2023 Basophil percentage 0-5 SEEN /hpf 0-5 [facility] Bilirubin Test strip Ql (U)O rdered By: Srikanth Lewis on 02-10-2023 Bilirubin Ql (U) Negative Negative [facility] Culture, urineOrdered By: Yuly Lewis on 02-10-2023 Bacteria identified Cx Nom (U) Positive [facility] Ketones Test strip Ql (U)Ord ered By: Srikanth Lewis on 02-10-2023 Ketones Ql (U) Negative Negative [facility] Laboratory - Chemistry and C hemistry - challengeon 02-10-2023 Bilirubin Ql (U) Negative [facility] Glucose Ql (U) Negative [facility] Ketones Ql (U) Negative [facility] pH (U) 6.0 [pH] [facility] Specific gravity (U) [Rel density] 1.005 [facility] Urobilinogen (U) [Mass/Vol] Negative [facility] Laboratory - Hematology and Cell countson 02-10-2023 Hemoglobin Ql (U) Negative [facility] Laboratory - Specimen inform ationon 02-10-2023 Clarity (U) Clear [facility] Color (U) Tracy [facility] Laboratory - Urinalysison Nitrite Ql (U) Negative [facility] Protein Ql (U) Negative [facility] Mucus LM Ql (Urine sed)Order ed By: Srikanth Lewis on 02-10-2023 Mucus Ql (Urine sed) 0 SEEN /hpf [facility] Nitrite Test strip Ql (U)Ord ered By: Srikanth Lewis on 02-10-2023 Nitrite Ql (U) Negative Negative [facility] No Panel Informationon 02-10 Urine Leukocytes Positive [facility] Urine Non-Hemolyzed Blood Negative [facility] Protein Test strip Ql (U)Ord ered By: Srikanth Lewis on 02-10-2023 Protein Ql (U) Negative Negative [facility] Squamous epithelial cells de tection in urine sediment by light microscopyOrdered By: Srikanth Lewis on 02-10-2023 Epithelial cells.squamous LM Ql (Urine sed) 5-10 SEEN /hpf 5-10 [facility] Urine blood detectionOrdered By: Srikanth Lewis on 02-10-2023 RBC Ql (U) 10 /ul Negative [facility] RBC Ql (U) 0 SEEN /hpf 0-5 [facility] Urine clarityOrdered By: Remberto Lewis on 02-10-2023 Clarity (U) Clear Clear [facility] Urine color determinationOrd ered By: Srikanth Lewis on 02-10-2023 Color (U) Yellow Yellow [facility] Urine glucose detectionOrder ed By: Srikanth Lewis on 02-10-2023 Glucose Ql (U) Normal mg/dl Normal [facility] Urine leukocyte esterase det ection by dipstickOrdered By: Srikanth Lewis on 02-10-2023 Leukocyte esterase Test strip Ql (U) 500 /ul Negative [facility] Urine pHOrdered By: Srikanth torres on 02-10-2023 pH (U) 6.5 [pH] 5.0 - 8.0 [facility] Urine sediment bacteria coun t by microscopy (number/high power field)Ordered By: Srikanth Lewis on 02-10-2023 Bacteria LM.HPF (Urine sed) [#/Area] RARE /hpf None Seen [facility] Urine specific gravity measu rementOrdered By: Srikanth Lewis on 02-10-2023 Specific gravity (U) [Rel density] 1.010 1.002-1.030 [facility] Urobilinogen Auto test strip Ql (U)Ordered By: Srikanth Lewis on 02-10-2023 Urobilinogen Ql (U) Normal mg/dl Normal [facility] Basophil percentageon 2021 Basophil percentage 0 SEEN /hpf [facility] Work Phone: Bilirubin [Mass/Vol] 0.40 mg/dL 0.20-1.00 [facility] Work Phone: Comment on above: For patients on eltr ombopag therapy, use of Dimension [place] TBIL is not recommended. Chloride [Moles/Vol] 104 mmol/L 98-107 [facility] Work Phone: Cholesterol [Mass/Vol] 204 mg/dL <200 [facility] Work Phone: Comment on above: <200 mg/dL Desirable 200-240 mg/dL Borderline >240 mg/dL High Risk Glucose [Mass/Vol] 113 mg/dL 74-106 [facility] Work Phone: Comment on above: Fasting Glucose resu lt from 100 to 125 mg/dL suggests IMPAIRED HOMEOSTASIS per A.D.A. criteria. Potassium [Moles/Vol] 3.5 mmol/L 3.5-5.1 [facility] Work Phone: Protein [Mass/Vol] 8.0 g/dL 6.4-8.2 [facility] Work Phone: Sodium [Moles/Vol] 139 mmol/L 136-145 [facility] Work Phone: Triglyceride [Mass/Vol] 192 mg/dL [facility] Work Phone: Comment on above: The drugs N-Acetylcy steine and Metamizole may falsely depress this assay.Serum Triglycerides Reference Interval Normal <150 mg/dL Borderline high 150 - 199 mg/dL High 200 - 499 mg/dL Very High > or = 500 mg/dL Bilirubin Test strip Ql (U)o n 12-31-2021 Bilirubin Ql (U) Negative Negative [facility] Work Phone: Ketones Test strip Ql (U)on 12-31-2021 Ketones Ql (U) Negative Negative [facility] Work Phone: Laboratory - Chemistry and C hemistry - challengeon 12-31-2021 ALP [Catalytic activity/Vol] 86 U/L 45-117 [facility] Work Phone: ALT [Catalytic activity/Vol] 24 U/L 13-56 [facility] Work Phone: CO2 [Moles/Vol] 28.0 mmol/L 21.0-32.0 [facility] Work Phone: Globulin (S) [Mass/Vol] 4.1 g/dL 2.2-4.2 [facility] Work Phone: Urea nitrogen/Creatinine [Mass ratio] 26.8 mg/mg 10-20 [facility] Work Phone: Mucus LM Ql (Urine sed)on Mucus Ql (Urine sed) 0 SEEN /hpf [facility] Work Phone: Nitrite Test strip Ql (U)on 12-31-2021 Nitrite Ql (U) Negative Negative [facility] Work Phone: No Panel Informationon 12-31 Estimated GFR (MDRD) Amer 133 mL/min >60 [facility] Work Phone: Comment on above: GFR Calc Estimated GFR (MDRD) Non-Af Amer 110 mL/min >60 [facility] Work Phone: Comment on above: Non- GFR Calc Protein Test strip Ql (U)on 12-31-2021 Protein Ql (U) Negative Negative [facility] Work Phone: Serum or plasma albumin parag urement (mass/volume)on 12-31-2021 Albumin [Mass/Vol] 3.9 g/dL 3.2-5.0 [facility] Work Phone: Serum or plasma albumin/glob ulin mass ratioon 12-31-2021 Albumin/Globulin [Mass ratio] 1.0 {ratio} 0.9-2.4 [facility] Work Phone: Serum or plasma calcium parag urement (mass/volume)on 12-31-2021 Calcium [Mass/Vol] 9.4 mg/dL 8.5-10.1 [facility] Work Phone: Serum or plasma cholesterol in HDL measurement (mass/volume)on 12-31-2021 Cholesterol in HDL [Mass/Vol] 66 mg/dL [facility] Work Phone: Comment on above: The drugs N-Acetylcy steine and Metamizole may falsely depress this assay. Reference Range HDL <40 mg/dL Low HDL Cholesterol HDL >or= 60 mg/dL High HDL Cholesterol Serum or plasma cholesterol in VLDL measurement (mass/volume)on 12-31-2021 Cholesterol in VLDL [Mass/Vol] 38 mg/dL 5-40 [facility] Work Phone: Serum or plasma creatinine m easurement (mass/volume)on 12-31-2021 Creatinine [Mass/Vol] 0.56 mg/dL 0.55-1.02 [facility] Work Phone: Comment on above: The validity of the calculated GFR & GFRAA in patients over 70 years has not been determined. Clinical correlation is essential. Serum or plasma low density lipoprotein (LDL) cholesterol measurement (mass/volume)on 12-31-2021 Cholesterol in LDL [Mass/Vol] 100 mg/dL 0-130 [facility] Work Phone: Serum or plasma urea nitroge n measurement (mass/volume)on 12-31-2021 Urea nitrogen [Mass/Vol] 15 mg/dL 7-18 [facility] Work Phone: Squamous epithelial cells de tection in urine sediment by light microscopyon 12-31-2021 Epithelial cells.squamous LM Ql (Urine sed) 0-5 SEEN /hpf [facility] Work Phone: Thin prep Papanicolaou smear with manual screeningon 12-31-2021 Thin prep Papanicolaou smear with manual screening 21 U/L 15-37 [facility] Work Phone: Thin prep Papanicolaou smear with manual screening 7 5-15 [facility] Work Phone: Urine blood detectionon 12-14 RBC Ql (U) Negative Negative [facility] Work Phone: RBC Ql (U) 0 SEEN /hpf [facility] Work Phone: Urine clarityon 12-31-2021 Clarity (U) Clear Clear [facility] Work Phone: Urine color determinationon 12-31-2021 Color (U) Straw Yellow [facility] Work Phone: Urine glucose detectionon Glucose Ql (U) Normal mg/dl Normal [facility] Work Phone: Urine leukocyte esterase det ection by dipstickon 12-31-2021 Leukocyte esterase Test strip Ql (U) Negative Negative [facility] Work Phone: Urine pHon 12-31-2021 pH (U) 6.5 [pH] [facility] Work Phone: Urine sediment bacteria coun t by microscopy (number/high power field)on 12-31-2021 Bacteria LM.HPF (Urine sed) [#/Area] RARE /hpf None Seen [facility] Work Phone: Urine specific gravity measu rementon 12-31-2021 Specific gravity (U) [Rel density] 1.010 [facility] Work Phone: Urobilinogen Auto test strip Ql (U)on 12-31-2021 Urobilinogen Ql (U) Normal mg/dl Normal [facility] Work Phone: Basophil percentageon 2021 Basophil percentage 0 SEEN /hpf [facility] Work Phone: Bilirubin Test strip Ql (U)o n 10-24-2021 Bilirubin Ql (U) Negative Negative [facility] Work Phone: Culture, urineon 10-24-2021 Bacteria identified Cx Nom (U) Positive [facility] Work Phone: Ketones Test strip Ql (U)on 10-24-2021 Ketones Ql (U) Negative Negative [facility] Work Phone: Laboratory - Chemistry and C hemistry - challengeon 10-24-2021 Bilirubin Ql (U) Negative [facility] Work Phone: [phone] Glucose Ql (U) Negative [facility] [facility]: [phone] Ketones Ql (U) Negative [facility] Work Phone: pH (U) 6.0 [pH] [facility] Work Phone: Specific gravity (U) [Rel density] 1.015 [facility] Work Phone: Urobilinogen (U) [Mass/Vol] Negative [facility] Work Phone: Laboratory - Hematology and Cell countson 10-24-2021 Hemoglobin Ql (U) Small [facility] Work Phone: Laboratory - Specimen inform ationon 10-24-2021 Clarity (U) Clear [facility] Work Phone: Color (U) YELLOW [facility] Work Phone: Laboratory - Urinalysison Nitrite Ql (U) Negative [facility] Work Phone: Protein Ql (U) Negative [facility] Work Phone: Mucus LM Ql (Urine sed)on Mucus Ql (Urine sed) 0 SEEN /hpf [facility] Work Phone: Nitrite Test strip Ql (U)on 10-24-2021 Nitrite Ql (U) Negative Negative [facility] Work Phone: No Panel Informationon 10-24 Urine Leukocytes Negatve [facility] Work Phone: Urine Non-Hemolyzed Blood [facility] Work Phone: Protein Test strip Ql (U)on 10-24-2021 Protein Ql (U) Negative Negative [facility] Work Phone: Squamous epithelial cells de tection in urine sediment by light microscopyon 10-24-2021 Epithelial cells.squamous LM Ql (Urine sed) 0-5 SEEN /hpf [facility] Work Phone: Urine blood detectionon 10-14 RBC Ql (U) Negative Negative [facility] Work Phone: RBC Ql (U) 0 SEEN /hpf [facility] Work Phone: Urine clarityon 10-24-2021 Clarity (U) Clear Clear [facility] Work Phone: Urine color determinationon 10-24-2021 Color (U) Yellow Yellow [facility] Work Phone: Urine glucose detectionon Glucose Ql (U) Normal mg/dl Normal [facility] Work Phone: Urine leukocyte esterase det ection by dipstickon 10-24-2021 Leukocyte esterase Test strip Ql (U) Negative Negative [facility] Work Phone: Urine pHon 10-24-2021 pH (U) 6.0 [pH] [facility] Work Phone: Urine sediment bacteria coun t by microscopy (number/high power field)on 10-24-2021 Bacteria LM.HPF (Urine sed) [#/Area] 0 /[HPF] None Seen [facility] Work Phone: Urine specific gravity measu rementon 10-24-2021 Specific gravity (U) [Rel density] 1.010 [facility] Work Phone: Urobilinogen Auto test strip Ql (U)on 10-24-2021 Urobilinogen Ql (U) Normal mg/dl Normal [facility] Work Phone: Vital Signs Date Time Vital Sign Value Performing Clinician Facility 05-02-2025 08:21-0400 Body temperature 97.2 [degF] Dr. Cyo Nath DO Work Phone: [facility] 05-02-2025 08:21-0400 Diastolic blood pressure 56 mm[Hg] Dr. Coy Nath DO Work Phone: [facility] 05-02-2025 08:21-0400 Heart rate 58 /min Dr. Coy Nath DO Work Phone: [facility] 05-02-2025 08:21-0400 Respiratory rate 16 /min Dr. Coy Nath DO Work Phone: [facility] 05-02-2025 08:21-0400 SaO2% (BldA) [Mass fraction] 96 % Dr. Coy Nath DO Work Phone: [facility] 05-02-2025 08:21-0400 Systolic blood pressure 139 mm[Hg] Dr. Coy Nath DO Work Phone: [facility] 05-02-2025 06:51-0400 Body height 152.[address] Coy Nath DO Work Phone: [facility] 05-02-2025 06:51-0400 Body mass index (BMI) [Ratio] 25.4 kg/m2 Dr. Coy Nath DO Work Phone: [facility] 05-02-2025 06:51-0400 Body weight [address] Coy Nath DO Work Phone: [facility] 03-22-2025 15:36-0400 Body height 152.[address] Coy Nath DO Work Phone: [facility] 03-22-2025 15:36-0400 Body mass index (BMI) [Ratio] 25.8 kg/m2 Dr. Coy Nath DO Work Phone: [facility] 03-22-2025 15:36-0400 Body weight 60.[address] Coy Nath DO Work Phone: [facility] 01-10-2025 09:42-0400 Body height 152.[address] Coy Nath DO Work Phone: [facility] 01-10-2025 09:42-0400 Body mass index (BMI) [Ratio] 26.7 kg/m2 Dr. Coy Nath DO Work Phone: [facility] 01-10-2025 09:42-0400 Body temperature 97.8 [degF] Dr. Coy Nath DO Work Phone: [facility] 01-10-2025 09:42-0400 Body weight 62.[address] Coy Nath DO Work Phone: [facility] 01-10-2025 09:42-0400 Diastolic blood pressure 76 mm[Hg] Dr. Coy Nath DO Work Phone: [facility] 01-10-2025 09:42-0400 Heart rate 54 /min Dr. Coy Nath DO Work Phone: [facility] 01-10-2025 09:42-0400 Respiratory rate 18 /min Dr. Coy Nath DO Work Phone: [facility] 01-10-2025 09:42-0400 SaO2% (BldA) [Mass fraction] 96 % Dr. Coy Nath DO Work Phone: [facility] 01-10-2025 09:42-0400 Systolic blood pressure 138 mm[Hg] Dr. Coy Nath DO Work Phone: [facility] 10-25-2024 11:35-0400 Body height 152.[address] Coy Nath DO Work Phone: [facility] 10-25-2024 11:35-0400 Body mass index (BMI) [Ratio] 26.4 kg/m2 Dr. Coy Nath DO Work Phone: [facility] 10-25-2024 11:35-0400 Body temperature 96.3 [degF] Dr. Coy Nath DO Work Phone: [facility] 10-25-2024 11:35-0400 Body weight 61.[address] Coy Nath DO Work Phone: [facility] 10-25-2024 11:35-0400 Diastolic blood pressure 48 mm[Hg] Dr. Coy Nath DO Work Phone: [facility] 10-25-2024 11:35-0400 Heart rate 16 /min Dr. Coy Nath DO Work Phone: [facility] 10-25-2024 11:35-0400 Respiratory rate 16 /min Dr. Coy Nath DO Work Phone: [facility] 10-25-2024 11:35-0400 SaO2% (BldA) [Mass fraction] 96 % Dr. Coy Nath DO Work Phone: [facility] 10-25-2024 11:35-0400 Systolic blood pressure 112 mm[Hg] Dr. Coy Nath DO Work Phone: [facility] 10-11-2024 11:39-0500 Body mass index (BMI) [Ratio] 26.9 kg/m2 Dr. Coy Nath DO Work Phone: [facility] 10-11-2024 11:39-0500 Body temperature 97.8 [degF] Dr. Coy Nath DO Work Phone: [facility] 10-11-2024 11:39-0500 Body weight 62.[address] Coy Nath DO Work Phone: [facility] 10-11-2024 11:39-0500 Diastolic blood pressure 78 mm[Hg] Dr. Coy Nath DO Work Phone: [facility] 10-11-2024 11:39-0500 Heart rate 69 /min Dr. Coy Nath DO Work Phone: [facility] 10-11-2024 11:39-0500 Respiratory rate 19 /min Dr. Coy Nath DO Work Phone: [facility] 10-11-2024 11:39-0500 SaO2% (BldA) [Mass fraction] 96 % Dr. Coy Nath DO Work Phone: [facility] 10-11-2024 11:39-0500 Systolic blood pressure 142 mm[Hg] Dr. Coy Nath DO Work Phone: [facility] 08-29-2024 14:10-0500 Body temperature 98 [degF] Dr. Coy Nath DO Work Phone: [facility] 08-29-2024 14:10-0500 Diastolic blood pressure 47 mm[Hg] Dr. Coy Nath DO Work Phone: [facility] 08-29-2024 14:10-0500 Heart rate 62 /min Dr. Coy Nath DO Work Phone: [facility] 08-29-2024 14:10-0500 Respiratory rate 18 /min Dr. Coy Nath DO Work Phone: [facility] 08-29-2024 14:10-0500 SaO2% (BldA) [Mass fraction] 98 % Dr. Coy Ntah DO Work Phone: [facility] 08-29-2024 14:10-0500 Systolic blood pressure 117 mm[Hg] Dr. Coy Nath DO Work Phone: [facility] 08-28-2024 19:45-0500 Body mass index (BMI) [Ratio] 26.2 kg/m2 Dr. Coy Nath DO Work Phone: [facility] 08-28-2024 19:45-0500 Body weight [address] Coy Nath DO Work Phone: [facility] 08-28-2024 14:47-0500 Inhaled oxygen flow rate 3 L/min Dr. Coy Nath DO Work Phone: [facility] 07-27-2024 12:33-0500 Body mass index (BMI) [Ratio] 25 kg/m2 Dr. Coy Nath DO Work Phone: [facility] 07-27-2024 12:33-0500 Body temperature 97.9 [degF] Dr. Coy Nath DO Work Phone: [facility] 07-27-2024 12:33-0500 Body weight 63.[address] Coy Nath DO Work Phone: [facility] 07-27-2024 12:33-0500 Diastolic blood pressure 62 mm[Hg] Dr. Coy Nath DO Work Phone: [facility] 07-27-2024 12:33-0500 Heart rate 65 /min Dr. Coy Nath DO Work Phone: [facility] 07-27-2024 12:33-0500 Respiratory rate 16 /min Dr. Coy Nath DO Work Phone: [facility] 07-27-2024 12:33-0500 SaO2% (BldA) [Mass fraction] 97 % Dr. Coy Nath DO Work Phone: [facility] 07-27-2024 12:33-0500 Systolic blood pressure 122 mm[Hg] Dr. Coy Nath DO Work Phone: [facility] 07-04-2024 14:58-0500 Body mass index (BMI) [Ratio] 25 kg/m2 Dr. Coy Nath DO Work Phone: [facility] 07-04-2024 14:58-0500 Body weight 63.[address] Coy Nath DO Work Phone: [facility] 07-04-2024 14:58-0500 Diastolic blood pressure 64 mm[Hg] Dr. Coy Nath DO Work Phone: [facility] 07-04-2024 14:58-0500 Respiratory rate 16 /min Dr. Coy Nath DO Work Phone: [facility] 07-04-2024 14:58-0500 Systolic blood pressure 132 mm[Hg] Dr. Coy Nath DO Work Phone: [facility] 10-26-2023 15:25-0400 Body mass index (BMI) [Ratio] 25.86 kg/m2 Mal Phipps MD Work Phone: [facility] 10-26-2023 15:25-0400 Body weight 66.22 kg Mal Phipps MD Work Phone: [facility] 10-26-2023 15:25-0400 Diastolic blood pressure 73 mm[Hg] Mal Phipps MD Work Phone: [facility] 10-26-2023 15:25-0400 Heart rate 54 /min Mal Phipps MD Work Phone: [facility] 10-26-2023 15:25-0400 Respiratory rate 16 /min Mal Phipps MD Work Phone: [facility] 10-26-2023 15:25-0400 SaO2% (BldA) [Mass fraction] 95 % Mal Phipps MD Work Phone: [facility] 10-26-2023 15:25-0400 Systolic blood pressure 151 mm[Hg] Mal Phipps MD Work Phone: [facility] 09-29-2023 15:23-0500 Body height 160.[address] Coy Nath Work Phone: [facility] 09-29-2023 15:23-0500 Body mass index (BMI) [Ratio] 26 kg/m2 Dr. Coy Nath Work Phone: [facility] 09-29-2023 15:23-0500 Body temperature 97.5 [degF] Dr. Coy Nath Work Phone: [facility] 09-29-2023 15:23-0500 Body weight 66.[address] Coy Nath Work Phone: [facility] 09-29-2023 15:23-0500 Diastolic blood pressure 70 mm[Hg] Dr. Coy Nath Work Phone: [facility] 09-29-2023 15:23-0500 Heart rate 60 /min Dr. Coy Nath Work Phone: [facility] 09-29-2023 15:23-0500 Respiratory rate 16 /min Dr. Coy Nath Work Phone: [facility] 09-29-2023 15:23-0500 SaO2% (BldA) [Mass fraction] 97 % Dr. Coy Nath Work Phone: [facility] 09-29-2023 15:23-0500 Systolic blood pressure 128 mm[Hg] Dr. Coy Nath Work Phone: [facility] 08-18-2023 16:26-0500 Body height 160.[address] Coy Nath Work Phone: [facility] 08-18-2023 16:26-0500 Body mass index (BMI) [Ratio] 25.3 kg/m2 Dr. Coy Nath Work Phone: [facility] 08-18-2023 16:26-0500 Body temperature 97.5 [degF] Dr. Coy Nath Work Phone: [facility] 08-18-2023 16:26-0500 Body weight 64.[address] Coy Nath Work Phone: [facility] 08-18-2023 16:26-0500 Diastolic blood pressure 72 mm[Hg] Dr. Coy Nath Work Phone: [facility] 08-18-2023 16:26-0500 Heart rate 62 /min Dr. Coy Nath Work Phone: [facility] 08-18-2023 16:26-0500 Respiratory rate 14 /min Dr. Coy Nath Work Phone: [facility] 08-18-2023 16:26-0500 SaO2% (BldA) [Mass fraction] 98 % Dr. Coy Nath Work Phone: [facility] 08-18-2023 16:26-0500 Systolic blood pressure 124 mm[Hg] Dr. Coy Nath Work Phone: [facility] 07-21-2023 16:03-0500 Body height 160.[address] Coy Nath Work Phone: [facility] 07-21-2023 16:03-0500 Body mass index (BMI) [Ratio] 26.5 kg/m2 Dr. Coy Nath Work Phone: [facility] 07-21-2023 16:03-0500 Body temperature 97.6 [degF] Dr. Coy Nath Work Phone: [facility] 07-21-2023 16:03-0500 Body weight 68.[address] Coy Nath Work Phone: [facility] 07-21-2023 16:03-0500 Diastolic blood pressure 52 mm[Hg] Dr. Coy Nath Work Phone: [facility] 07-21-2023 16:03-0500 Heart rate 75 /min Dr. Coy Nath Work Phone: [facility] 07-21-2023 16:03-0500 Respiratory rate 16 /min Dr. Coy Nath Work Phone: [facility] 07-21-2023 16:03-0500 SaO2% (BldA) [Mass fraction] 98 % Dr. Coy Nath Work Phone: [facility] 07-21-2023 16:03-0500 Systolic blood pressure 118 mm[Hg] Dr. Coy Nath Work Phone: [facility] 07-20-2023 11:27-0500 Body height 160 cm Mal Phipps MD Work Phone: [facility] 07-20-2023 11:27-0500 Body mass index (BMI) [Ratio] 26.04 kg/m2 Mal Phipps MD Work Phone: [facility] 07-20-2023 11:27-0500 Body weight 66.68 kg Mal Phipps MD Work Phone: [facility] 07-20-2023 11:27-0500 Diastolic blood pressure 53 mm[Hg] Mal Phipps MD Work Phone: [facility] 07-20-2023 11:27-0500 Heart rate 54 /min Mal Phipps MD Work Phone: [facility] 07-20-2023 11:27-0500 SaO2% (BldA) [Mass fraction] 97 % Mal Phipps MD Work Phone: [facility] 07-20-2023 11:27-0500 Systolic blood pressure 125 mm[Hg] Mal Phipps MD Work Phone: [facility] 07-09-2023 17:14-0500 Diastolic blood pressure 76 mm[Hg] Dr. Coy Nath Work Phone: [facility] 07-09-2023 17:14-0500 Heart rate 75 /min Dr. Coy Nath Work Phone: [facility] 07-09-2023 17:14-0500 Respiratory rate 16 /min Dr. Coy Nath Work Phone: [facility] 07-09-2023 17:14-0500 SaO2% (BldA) [Mass fraction] 96 % Dr. Coy Nath Work Phone: [facility] 07-09-2023 17:14-0500 Systolic blood pressure 131 mm[Hg] Dr. Coy Nath Work Phone: [facility] 07-09-2023 13:59-0500 Body mass index (BMI) [Ratio] 25.9 kg/m2 Dr. Coy Nath Work Phone: [facility] 07-09-2023 13:59-0500 Body weight 66.[address] Coy Nath Work Phone: [facility] 07-09-2023 13:44-0500 Body temperature 97 [degF] Dr. Coy Nath Work Phone: [facility] 07-05-2023 11:12-0500 Body temperature 98.42 [degF] BALDEV KULKARNI MD [facility] 07-05-2023 11:12-0500 Diastolic Blood Pressure Non-Invasive 72 mm[Hg] BALDEV KULKARNI MD [facility] 07-05-2023 11:12-0500 Heart rate 71 /min BALDEV KULKARNI MD [facility] 07-05-2023 11:12-0500 Respiratory rate 18 /min BALDEV KULKARNI MD [facility] 07-05-2023 11:12-0500 Systolic Blood Pressure Non-Invasive 146 mm[Hg] BALDEV KULKARNI MD [facility] 07-01-2023 16:43-0500 Diastolic blood pressure 78 mm[Hg] Dr. Coy Nath Work Phone: [facility] 07-01-2023 16:43-0500 Systolic blood pressure 144 mm[Hg] Dr. Coy Nath Work Phone: [facility] 07-01-2023 14:57-0500 Body mass index (BMI) [Ratio] 26.1 kg/m2 Dr. Coy Nath Work Phone: [facility] 07-01-2023 14:57-0500 Body temperature 98.1 [degF] Dr. Coy Nath Work Phone: [facility] 07-01-2023 14:57-0500 Body weight 66.[address] Coy Nath Work Phone: [facility] 07-01-2023 14:57-0500 Heart rate 71 /min Dr. Coy Nath Work Phone: [facility] 07-01-2023 14:57-0500 Respiratory rate 16 /min Dr. Coy Nath Work Phone: [facility] 07-01-2023 14:57-0500 SaO2% (BldA) [Mass fraction] 97 % Dr. Coy Nath Work Phone: [facility] 06-08-2023 22:38-0400 Body temperature 37.0 degrees Celsius [facility] Comment on above: Performed By: #### [id number] #### JACQUI Hayes ([id number]) [facility] ([facility]) [address] [place] [address] 06-08-2023 22:38-0400 SaO2% (BldA) [Mass fraction] 98 % [facility] Comment on above: Performed By: #### [id number] #### JACQUI Hayes ([id number]) [facility] ([facility]) [address] [place] [address] 06-08-2023 19:52-0400 Heart rate 140 /min Dr. Coy Nath Work Phone: [facility] 06-08-2023 19:52-0400 Inhaled oxygen concentration 35 % Dr. Coy Nath Work Phone: [facility] 06-08-2023 19:52-0400 Respiratory rate 35 /min Dr. Coy Nath Work Phone: [facility] 06-08-2023 19:52-0400 SaO2% (BldA) [Mass fraction] 94 % Dr. Coy Nath Work Phone: [facility] 06-08-2023 18:00-0400 Body temperature 98.4 [degF] Dr. Coy Nath Work Phone: [facility] 06-08-2023 18:00-0400 Diastolic blood pressure 90 mm[Hg] Dr. Coy Nath Work Phone: [facility] 06-08-2023 18:00-0400 Systolic blood pressure 144 mm[Hg] Dr. Coy Nath Work Phone: [facility] 06-08-2023 16:00-0400 Inhaled oxygen flow rate 35 L/min Dr. Coy Nath Work Phone: [facility] 06-08-2023 03:49-0400 Body mass index (BMI) [Ratio] 28 kg/m2 Dr. Coy Nath Work Phone: [facility] 06-08-2023 03:49-0400 Body weight 71.[address] Coy Nath Work Phone: [facility] 06-07-2023 21:31-0400 Body height 160.[address] Coy Nath Work Phone: [facility] 06-07-2023 10:50-0400 Body mass index (BMI) [Ratio] 29.2 kg/m2 Dr. Coy Nath Work Phone: [facility] 06-07-2023 10:50-0400 Body temperature 98 [degF] Dr. Coy Nath Work Phone: [facility] 06-07-2023 10:50-0400 Body weight 72.[address] Coy Nath Work Phone: [facility] 06-07-2023 10:50-0400 Diastolic blood pressure 52 mm[Hg] Dr. Coy Nath Work Phone: [facility] 06-07-2023 10:50-0400 Heart rate 77 /min Dr. Coy Nath Work Phone: [facility] 06-07-2023 10:50-0400 Respiratory rate 19 /min Dr. Coy Nath Work Phone: [facility] 06-07-2023 10:50-0400 SaO2% (BldA) [Mass fraction] 94 % Dr. Coy Nath Work Phone: [facility] 06-07-2023 10:50-0400 Systolic blood pressure 110 mm[Hg] Dr. Coy Nath Work Phone: [facility] 05-26-2023 15:20-0400 Body temperature 98.3 [degF] Dr. Coy Nath Work Phone: [facility] 05-26-2023 15:20-0400 Diastolic blood pressure 49 mm[Hg] Dr. Coy Nath Work Phone: [facility] 05-26-2023 15:20-0400 Heart rate 78 /min Dr. Coy Nath Work Phone: [facility] 05-26-2023 15:20-0400 Respiratory rate 17 /min Dr. Coy Nath Work Phone: [facility] 05-26-2023 15:20-0400 SaO2% (BldA) [Mass fraction] 92 % Dr. Coy Nath Work Phone: [facility] 05-26-2023 15:20-0400 Systolic blood pressure 142 mm[Hg] Dr. Coy Nath Work Phone: [facility] 05-26-2023 09:39-0400 Inhaled oxygen flow rate 2 L/min Dr. Coy Nath Work Phone: [facility] 05-25-2023 16:17-0400 Body height 157.[address] Coy Nath Work Phone: [facility] 05-25-2023 16:17-0400 Body mass index (BMI) [Ratio] 27.4 kg/m2 Dr. Coy Nath Work Phone: [facility] 05-25-2023 16:17-0400 Body weight 68.[address] Coy Nath Work Phone: [facility] 05-25-2023 09:52-0400 Body mass index (BMI) [Ratio] 27.4 kg/m2 Dr. Coy Nath Work Phone: [facility] 05-25-2023 09:52-0400 Body weight 68.[address] Coy Nath Work Phone: [facility] 05-25-2023 09:52-0400 Diastolic blood pressure 74 mm[Hg] Dr. Coy Nath Work Phone: [facility] 05-25-2023 09:52-0400 Heart rate 82 /min Dr. Coy Nath Work Phone: [facility] 05-25-2023 09:52-0400 Respiratory rate 16 /min Dr. Coy Nath Work Phone: [facility] 05-25-2023 09:52-0400 SaO2% (BldA) [Mass fraction] 89 % Dr. Coy Nath Work Phone: [facility] 05-25-2023 09:52-0400 Systolic blood pressure 164 mm[Hg] Dr. Coy Nath Work Phone: [facility] 05-13-2023 15:30-0400 Body temperature 99.2 [degF] Dr. Coy Nath Work Phone: [facility] 09-28-2023 15:30-0400 Diastolic blood pressure 74 mm[Hg] Dr. Coy Nath Work Phone: [facility] 05-13-2023 15:30-0400 Heart rate 86 /min Dr. Coy Nath Work Phone: [facility] 05-13-2023 15:30-0400 Respiratory rate 17 /min Dr. Coy Nath Work Phone: [facility] 05-13-2023 15:30-0400 SaO2% (BldA) [Mass fraction] 95 % Dr. Coy Nath Work Phone: [facility] 05-13-2023 15:30-0400 Systolic blood pressure 174 mm[Hg] Dr. Coy Nath Work Phone: [facility] 05-06-2023 14:11-0400 Body mass index (BMI) [Ratio] 27.4 kg/m2 Dr. Coy Nath Work Phone: [facility] 05-06-2023 14:11-0400 Body temperature 98 [degF] Dr. Coy Nath Work Phone: [facility] 05-06-2023 14:11-0400 Body weight 68.[address] Coy Nath Work Phone: [facility] 05-06-2023 14:11-0400 Diastolic blood pressure 80 mm[Hg] Dr. Coy Nath Work Phone: [facility] 05-06-2023 14:11-0400 Heart rate 63 /min Dr. Coy Nath Work Phone: [facility] 05-06-2023 14:11-0400 Respiratory rate 16 /min Dr. Coy Nath Work Phone: [facility] 05-06-2023 14:11-0400 SaO2% (BldA) [Mass fraction] 96 % Dr. Coy Nath Work Phone: [facility] 05-06-2023 14:11-0400 Systolic blood pressure 124 mm[Hg] Dr. Coy Nath Work Phone: [facility] 02-10-2023 11:26-0400 Body height 157.[address] Coy Nath Work Phone: [facility] 02-10-2023 11:26-0400 Body mass index (BMI) [Ratio] 28.3 kg/m2 Dr. Coy Nath Work Phone: [facility] 02-10-2023 11:26-0400 Body temperature 97.3 [degF] Dr. Coy Nath Work Phone: [facility] 02-10-2023 11:26-0400 Body weight 70.[address] Coy Nath Work Phone: [facility] 02-10-2023 11:26-0400 Diastolic blood pressure 86 mm[Hg] Dr. Coy Nath Work Phone: [facility] 02-10-2023 11:26-0400 Heart rate 72 /min Dr. Coy Nath Work Phone: [facility] 02-10-2023 11:26-0400 Respiratory rate 16 /min Dr. Coy Nath Work Phone: [facility] 02-10-2023 11:26-0400 SaO2% (BldA) [Mass fraction] 96 % Dr. Coy Nath Work Phone: [facility] 02-10-2023 11:26-0400 Systolic blood pressure 180 mm[Hg] Dr. Coy Nath Work Phone: [facility] 12-31-2021 13:57-0400 Body height 157.[address] Coy Nath Work Phone: [facility] Work Phone: 12-31-2021 13:57-0400 Body mass index (BMI) [Ratio] 28.5 kg/m2 Dr. Coy Nath Work Phone: [facility] Work Phone: 12-31-2021 13:57-0400 Body temperature 97.8 [degF] Dr. Coy Nath Work Phone: [facility] Work Phone: 12-31-2021 13:57-0400 Body weight 70.[address] Coy Nath Work Phone: [facility] Work Phone: 12-31-2021 13:57-0400 Diastolic blood pressure 72 mm[Hg] Dr. Coy Nath Work Phone: [facility] Work Phone: 12-31-2021 13:57-0400 Heart rate 96 /min Dr. Coy Nath Work Phone: [facility] Work Phone: 12-31-2021 13:57-0400 Respiratory rate 14 /min Dr. Coy Nath Work Phone: [facility] Work Phone: 12-31-2021 13:57-0400 SaO2% (BldA) [Mass fraction] 99 % Dr. Coy Nath Work Phone: [facility] Work Phone: 12-31-2021 13:57-0400 Systolic blood pressure 136 mm[Hg] Dr. Coy Nath Work Phone: [facility] Work Phone: 10-24-2021 12:38-0500 Body mass index (BMI) [Ratio] 28.5 kg/m2 Dr. Coy Nath Work Phone: [facility] Work Phone: 10-24-2021 12:38-0500 Body temperature 98.5 [degF] Dr. Coy Nath Work Phone: [facility] Work Phone: 10-24-2021 12:38-0500 Body weight 70.[address] Coy Ntah Work Phone: [facility] Work Phone: 10-24-2021 12:38-0500 Diastolic blood pressure 82 mm[Hg] Dr. Coy Nath Work Phone: [facility] Work Phone: 10-24-2021 12:38-0500 Heart rate 76 /min Dr. Coy Nath Work Phone: [facility] Work Phone: 10-24-2021 12:38-0500 Respiratory rate 14 /min Dr. Coy Nath Work Phone: [facility] Work Phone: 10-24-2021 12:38-0500 SaO2% (BldA) [Mass fraction] 97 % Dr. Coy Nath Work Phone: [facility] Work Phone: 10-24-2021 12:38-0500 Systolic blood pressure 156 mm[Hg] Dr. Coy Nath Work Phone: [facility] Work Phone: Encounters Encounter Date Encounter Type Care Provider Facility Start: 06-04-2025 ambulatory Brock Marcial Facilit y:[facility] Start: 05-25-2025 ambulatory Brock Marcial Facilit y:[facility] Start: 05-22-2025 ambulatory Coy Nath Facilit y:[facility] Start: 05-02-2025 Non-patient / Non-visit George Canada nd, DO -[facility] Start: 05-02-2025 End: 05-02-2025 Admission to same day surgery center George Guzmán DO -Endoscopy Work Phone: Start: 05-02-2025 End: 05-02-[address] Coy Nath DO Work Phone: -Endoscopy Start: 03-22-2025 End: 03-22-2025 Patient encounter procedure Bárbara LONGORIA -[facility] Work Phone: Start: 03-22-2025 End: 03-22-[address] Coy Nath DO Work Phone: -[facility] Start: 01-10-2025 End: 01-10-[address] Coy Alfonso DO -[facility] Work Phone: Start: 01-10-2025 End: 01-10-[address] Coy Nath DO Work Phone: [facility] Work Phone: Start: 12-19-2024 End: 12-19-2024 Patient encounter procedure Bárbara Logan PA -[facility] Work Phone: Start: 12-19-2024 End: 12-19-2024 ambulatory Bárbara Logan Facility:[facility] Start: 11-22-2024 End: 11-22-[address] Coy Nath DO Work Phone: [facility] Work Phone: Start: 11-22-2024 End: 11-22-2024 Patient encounter procedure Bárbara LONGORIA -Laboratory, Specimen Work Phone: Start: 11-22-2024 End: 11-22-2024 [facility] Facility:[facility] Start: 11-18-2024 End: 11-18-[address] Coy Nath DO Work Phone: [facility] Work Phone: Start: 11-18-2024 End: 11-18-2024 Patient encounter procedure Bárbara Logan PA -Laboratory Work Phone: Start: 11-17-2024 End: 11-17-2024 Patient encounter procedure Bárbara LONGORIA -[facility] Work Phone: Start: 11-17-2024 End: 11-18-2024 ambulatory Bárbara Logan Facility:[facility] Start: 10-25-2024 End: 10-25-[address] Coy Alfonso DO -[facility] Work Phone: Start: 10-25-2024 End: 10-25-[address] Coy Nath DO Work Phone: [facility] Work Phone: Start: 10-25-2024 End: 10-25-2024 ambulatory Coy Kaden Nath Facility:[facility] Start: 10-11-2024 End: 10-11-[address] Coy Nath DO Work Phone: [facility] Work Phone: Start: 10-11-2024 End: 10-11-[address] Coy Alfonso DO -Laboratory, Specimen Work Phone: Start: 10-11-2024 End: 10-11-[address] Coy Alfonso DO -[facility] Work Phone: Start: 10-11-2024 End: 10-11-2024 ambulatory Coy Nath Facility:[facility] Start: 10-11-2024 End: 10-11-2024 ambulatory Coy Nath Facility:[facility] Start: 10-05-2024 End: 10-05-[address] Emily Madrigal MD -[facility] Work Phone: Start: 10-05-2024 End: 10-05-2024 ambulatory Coy Alfonso Portillo Facility:[facility] Start: 09-29-2024 Encounter for other preprocedural examination Emily Madrigal [facility] Start: 09-18-2024 End: 09-18-2024 [facility] Work Phone: Start: 09-18-2024 End: 09-18-2024 ambulatory Coy Kaden Nath Facility:[facility] Start: 09-06-2024 End: 09-06-2024 Patient encounter procedure Nandini Grant PA-C -[facility] Work Phone: Start: 09-06-2024 End: 09-06-2024 ambulatory Coy Nath Facility:[facility] Start: 08-29-2024 Non-patient / Non-visit Nandini Grant PA-C -[facility] Start: 08-28-2024 End: 08-29-2024 ambulatory Coy Alfonso [facility] Facility:[facility] Start: 08-28-2024 End: 08-29-2024 Evaluation and management of inpatient Dr. Emily Madrigal MD -[facility] Work Phone: Start: 08-28-2024 ambulatory Coy Nath Facilit y:[facility] Start: 08-28-2024 Non-patient / Non-visit Dr. Rosy Madrigal MD -[facility] Start: 08-22-2024 End: 08-22-2024 ambulatory Coy Nath Facility:[facility] Start: 08-22-2024 End: 08-22-2024 Non-patient / Non-visit Dr. Emily Leyva MD -[facility] Work Phone: Start: 07-27-2024 End: 07-27-2024 [facility] Start: 07-27-2024 End: 07-27-2024 Patient encounter procedure Imtiaz LONGORIA -[facility] Work Phone: Start: 07-27-2024 End: 07-27-2024 ambulatory Coy Nath Facility:[facility] Start: 07-27-2024 End: 07-27-2024 ambulatory Coy Nath Facility:[facility] Start: 07-04-2024 End: 07-04-[address] Emily Madrigal MD -[facility] Work Phone: Start: 07-04-2024 End: 07-04-2024 ambulatory Emily Madrigal Facility:[facility] Start: 06-15-2024 End: 06-15-2024 ambulatory Keisha [facility] Facility:[facility] Start: 06-15-2024 End: 06-15-2024 ambulatory Keisha [facility] Facility:[facility] Start: 10-26-2023 End: 10-26-2023 Office outpatient visit 10 minutes Mal Phipps MD Work Phone: [facility] Comment on above: Atrial fibrillation, unspecified type (CMS/HCC) (Primary Dx); Aortic valve sclerosis; Mixed hyperlipidemia Start: 10-26-2023 End: 10-26-2023 ambulatory MAL PHIPPS [facility] Start: 09-29-2023 End: 09-29-[address] Coy Nath Work Phone: [facility] Work Phone: Start: 09-29-2023 End: 09-29-[address] Coy Nath Work Phone: [facility] Work Phone: Start: 08-30-2023 End: 09-15-[address] Coy Nath Work Phone: [facility] Work Phone: Start: 08-30-2023 End: 09-15-[address] Coy Nath Work Phone: [facility] [place] Start: 08-18-2023 End: 08-18-[address] Coy Nath Work Phone: [facility] Work Phone: Start: 07-21-2023 End: 08-15-[address] Coy Nath Work Phone: [facility] Work Phone: Start: 07-21-2023 End: 08-15-[address] Coy Nath Work Phone: [facility] Start: 07-21-[address] Alfred Nath Work Phone: [facility] [place] Start: 07-21-2023 End: 07-21-[address] Coy Nath Work Phone: [facility] Work Phone: Start: 07-20-2023 End: 07-20-2023 Office outpatient visit 15 minutes Mal Phipps MD Work Phone: [facility] Comment on above: Atrial fibrillation, unspecified type (CMS/HCC) (Primary Dx); Aortic valve sclerosis; Mixed hyperlipidemia Start: 07-20-2023 End: 07-20-2023 ambulatory MAL Alfonso [facility] Start: 07-09-2023 End: 07-09-2023 Emergency department patient visit Dr. Coy Nath Work Phone: [facility]-Emergency Department Work Phone: Start: 07-05-2023 End: 07-05-2023 Emergency department patient visit BALDEV KULKARNI MD Facility:[facility] Start: 07-05-2023 End: 07-05-2023 Emergency department patient visit BALDEV KULKARNI MD [facility] Start: 07-01-2023 End: 07-01-[address] Coy Nath Work Phone: [facility] Work Phone: Start: 07-01-2023 End: 07-01-[address] Coy Nath Work Phone: [facility]atory, [place] Start: 07-01-2023 End: 07-01-[address] Coy Nath Work Phone: [facility] Work Phone: Start: 06-25-2023 End: 07-28-2023 ambulatory COY NATH DO Facility:[facility] Start: 06-24-2023 End: 06-24-2023 Subsequent hospital visit by physician Leonarda [id number] Holter/Ecg Resource [facility] Comment on above: Arrived Start: 06-24-2023 End: 06-24-2023 ambulatory DESEAN CRUZ [facility] Start: 06-08-2023 End: 06-23-2023 Evaluation and management of inpatient CLARI John JEFFERS [facility] Start: 06-08-2023 Non-patient / Non-visit Dr. Chaudhari Work Phone: [facility] Start: 06-08-2023 Non-patient / Non-visit Dr. Chaudhari Work Phone: [facility] Work Phone: Start: 06-07-2023 Non-patient / Non-visit Dr. Chaudhari Work Phone: [facility] Work Phone: Start: 06-07-2023 End: 06-08-2023 Evaluation and management of inpatient Dr. Coy Nath [facility] Work Phone: Start: 06-07-2023 End: 06-07-[address] Coy Nath Work Phone: [facility] Work Phone: Start: 06-07-2023 End: 06-07-[address] Coy Nath Work Phone: [facility] [place] Start: 06-07-2023 End: 06-07-[address] Coy Nath Work Phone: [facility] Work Phone: Start: 06-03-[address] Roger Nath [facility] Work Phone: Start: 05-26-2023 Non-patient / Non-visit Dr. Chaudhari Work Phone: [facility] Start: 05-25-2023 End: 05-26-2023 Evaluation and management of inpatient Dr. Coy Nath Work Phone[facility] Work Phone: Start: 05-25-2023 End: 05-25-[address] Coy Nath Work Phone: [facility] Work Phone: Start: 05-25-2023 End: 05-25-[address] Coy Nath Work Phone: [facility] Work Phone: Start: 05-13-2023 End: 05-13-[address] Coy Nath Work Phone: [facility] Work Phone: Start: 05-06-2023 End: 05-06-[address] Coy Nath Work Phone: [facility] Work Phone: Start: 02-10-2023 End: 02-10-[address] Coy Nath Work Phone: [facility] Work Phone: Start: 02-10-2023 End: 02-10-[address] Coy Nath [facility] Phone[facility] Work Phone: Start: 02-10-2023 End: 02-10-[address] Coy Nath Work Phone: [facility] Work Phone: Start: 12-31-2021 End: 12-31-[address] Coy Nath Work Phone: [facility] Start: 10-24-2021 End: 10-24-[address] Coy Nath Work Phone: [facility], Specimen Procedures Date Procedure Procedure Detail Performing Clinician Start: 05-02-[address] Coy figueroa DO Work Phone: Start: 11-22-2024 End: 11-22-2024 Giardia [address] antigen assay Dr[address] Roger Nath DO Work Phone: Start: 11-22-2024 Ova [address] parasites identification Dr. Lexx Nath DO Work Phone: Start: 11-22-2024 Ova&parasites direct smears concentration & id Dr. Coy Nath DO Work Phone: Start: 11-18-[address] Lexx Nath DO Work Phone: Start: 10-11-2024 SARS-CoV-2, Influenza & RSV (PCR) Dr. Chaudhari DO Work Phone: Start: 09-18-2024 Iadna-dna/rna gi pthgn multiplex probe tq 6-11 Dr. Coy Nath DO Work Phone: Start: 09-18-[address] Coy rubalcava DO Work Phone: Start: 09-18-2024 Measurement of occult blood in stool specimen using immunoassay Dr. Coy Nath DO Work Phone: Start: 09-18-[address] Coy Nath DO Work Phone: Start: 08-22-2024 Methicillin resistant Staphylococcus aureus screening test Dr. Coy Nath DO Work Phone: Start: 07-27-2024 X-ray of chest, PA and lateral views Dr. Coy Nath DO Work Phone: Start: 10-26-2023 FOLLOW UP IN CARDIOLOGY MAL PHIPPS Start: 06-24-2023 ECG 12-LEAD CLARI JEFFERS Start: 06-24-2023 End: 06-24-2023 Ecg routine ecg w/least 12 lds trcg only w/o i&r Desean Cruz PA-C Work Phone: Start: 06-23-2023 HOLTER OR EVENT PROPOSAL MANAGER WRITER CLARI ELLIS Start: 06-23-2023 DISCHARGE PATIENT CLARI JEFFERS Start: 06-23-2023 Heparin assay CLARI JEFFERS Start: 06-23-2023 CBC panel - Blood by Automated count CLARI JEFFERS Start: 06-23-2023 COAGULATION SCREEN CLARI CHOWDHURYJB Start: 06-23-2023 Magnesium [Mass/volume] in Serum or Plasma CLARI JUDIT Start: 06-23-2023 RENAL FUNCTION PANEL CLARI CHOWDHURYJB Start: 06-22-2023 CBC panel - Blood by Automated count CLARI JEFFERS Start: 06-22-2023 COAGULATION SCREEN CLARI CHOWDHURYJB Start: 06-22-2023 Heparin assay CLARI JUDIT Start: 06-22-2023 Magnesium [Mass/volume] in Serum or Plasma CLARI JUDIT Start: 06-22-2023 RENAL FUNCTION PANEL CLARI CHOWDHURYJB Start: 06-21-2023 Heparin assay CLARI JUDIT Start: 06-21-2023 CBC panel - Blood by Automated count CLARI JEFFERS Start: 06-21-2023 COAGULATION SCREEN CLARI CHOWDHURYJB Start: 06-21-2023 Heparin assay CLARI JUDIT Start: 06-21-2023 Magnesium [Mass/volume] in Serum or Plasma CLARI JEFFERS Start: 06-21-2023 RENAL FUNCTION PANEL CLARI JUDIT Start: 06-20-2023 CBC panel - Blood by Automated count CLARI JEFFERS Start: 06-20-2023 COAGULATION SCREEN CLARI CHOWDHURYJB Start: 06-20-2023 Heparin assay CLARI JUDIT Start: 06-20-2023 Magnesium [Mass/volume] in Serum or Plasma CLARI JEFFERS Start: 06-20-2023 RENAL FUNCTION PANEL CLARI JUDIT Start: 06-19-2023 Heparin assay CLARI JEFFERS Start: 06-19-2023 Heparin assay CLARI JEFFERS Start: 06-19-2023 CBC panel - Blood by Automated count CLARI JEFFERS Start: 06-19-2023 COAGULATION SCREEN CLARI JEFFERS Start: 06-19-2023 Heparin assay CLARI JEFFERS Start: 06-19-2023 Magnesium [Mass/volume] in Serum or Plasma CLARI JEFFERS Start: 06-19-2023 RENAL FUNCTION PANEL CLARI JEFFERS Start: 06-18-2023 TELEMETRY MONITORING CLARI JEFFERS Start: 06-18-2023 CBC panel - Blood by Automated count CLARI JEFFERS Start: 06-18-2023 COAGULATION SCREEN CLARI JEFFERS Start: 06-18-2023 Heparin assay CLARI JEFFERS Start: 06-18-2023 Magnesium [Mass/volume] in Serum or Plasma CLARI JEFFERS Start: 06-18-2023 RENAL FUNCTION PANEL CLARI JEFFERS Start: 06-17-2023 C. DIFFICILE, PCR CLARI JEFFERS Start: 06-17-2023 CBC panel - Blood by Automated count CLARI JEFFERS Start: 06-17-2023 Magnesium [Mass/volume] in Serum or Plasma CLARI JEFFERS Start: 06-17-2023 RENAL FUNCTION PANEL CLARI JEFFERS Start: 06-17-2023 Heparin assay CLARI JEFFERS Start: 06-17-2023 Heparin assay CLARI JEFFERS Start: 06-16-2023 aPTT in Blood by Coagulation assay JUAN JOSE JEFFERS Start: 06-16-2023 Heparin assay CLARI JEFFERS Start: 06-16-2023 Bacteria identified in Blood by Culture CLARI JEFFERS Start: 06-16-2023 CBC panel - Blood by Automated count CLARI JEFFERS Start: 06-16-2023 TRANSTHORACIC ECHO (TTE) LIMITED CLARI JEFFERS Start: 06-16-2023 ECG 12-LEAD CLARI JEFFERS Start: 06-16-2023 CBC panel - Blood by Automated count CLARI JEFFERS Start: 06-16-2023 RENAL FUNCTION PANEL CLARI JEFFERS Start: 06-16-2023 TRANSFUSE RED BLOOD CELLS CLARI JEFFERS Start: 06-15-2023 IR EMBOLIZATION CLARI JEFFERS Start: 06-15-2023 ANTIBODY IDENTIFICATION CLARI JEFFERS Start: 06-15-2023 PATH REVIEW-IMMUNOHEMATOLOGY CLARI Muse Start: 06-15-2023 TYPE AND SCREEN CLARI JEFFERS Start: 06-15-2023 PREPARE RBC CLARI JEFFERS Start: 06-15-2023 CBC panel - Blood by Automated count CLARI JEFFERS Start: 06-15-2023 RENAL FUNCTION PANEL CLARI JEFFERS Start: 06-14-2023 CBC panel - Blood by Automated count CLARI JEFFERS Start: 06-14-2023 CT ABDOMEN PELVIS W IV CONTRAST CLARI ELLIS Start: 06-14-2023 IP CONSULT TO ELECTROPHYSIOLOGY CLARI ELLIS Start: 06-14-2023 IP CONSULT TO ACUTE CARE SURGERY CLARI JEFFERS Start: 06-14-2023 FL MODIFIED BARIUM SWALLOW STUDY CLARI JEFFERS Start: 06-14-2023 RETAIL ANALYTICS MANAGER MODIFIED BARIUM SWALLOW EVALUATION CLARI JEFFERS Start: 06-14-2023 CBC panel - Blood by Automated count CLARI CHOWDHURYJB Start: 06-14-2023 Heparin assay CLARI CHOWDHURYJB Start: 06-14-2023 Magnesium [Mass/volume] in Serum or Plasma CLARI CHOWDHURYJB Start: 06-14-2023 RENAL FUNCTION PANEL CLARI CHOWDHURYJB Start: 06-13-2023 TRANSFER PATIENT TO NEW UNIT CLARI Muse Start: 06-13-2023 RETAIL ANALYTICS MANAGER EVAL AND TREAT CLARI JEFFERS Start: 06-13-2023 ANTIBODY IDENTIFICATION CLARI JEFFERS Start: 06-13-2023 PATH REVIEW-IMMUNOHEMATOLOGY CLARI Muse Start: 06-13-2023 TYPE AND SCREEN CLARI JEFFERS Start: 06-13-2023 CBC W Auto Differential panel - Blood CLARI CHOWDHURYJB Start: 06-13-2023 Heparin assay CLARI CHOWDHURYJB Start: 06-13-2023 Magnesium [Mass/volume] in Serum or Plasma CLARI CHOWDHURYJB Start: 06-13-2023 RENAL FUNCTION PANEL CLARI JUDIT Start: 06-12-2023 TRANSESOPHAGEAL ECHO (ANABEL) CLARI CHOWDHURYJB Start: 06-12-2023 XR CHEST 1 VIEW CLARI CHOWDHURYJB Start: 06-12-2023 CBC panel - Blood by Automated count CLARI CHOWDHURYJB Start: 06-12-2023 CBC W Auto Differential panel - Blood CLARI CHOWDHURYJB Start: 06-12-2023 Heparin assay CLARI CHOWDHURYJB Start: 06-12-2023 Magnesium [Mass/volume] in Serum or Plasma CLARI JUDIT Start: 06-12-2023 RENAL FUNCTION PANEL CLARI JEFFERS Start: 06-11-2023 ELECTROLYTE PANEL, URINE CLARI JEFFERS Start: 06-11-2023 LEGIONELLA ANTIGEN, URINE CLARI JUDIT Start: 06-11-2023 MICROSCOPIC ONLY, URINE CLARI JUDIT Start: 06-11-2023 OSMOLALITY, URINE CLARI JUDIT Start: 06-11-2023 STREPTOCOCCUS PNEUMONIAE ANTIGEN, URINE CLARI JUDIT Start: 06-11-2023 URINALYSIS WITH REFLEX MICROSCOPIC JUAN JOSE JEFFERS Start: 06-11-2023 Comprehensive metabolic 2000 panel - Serum or Plasma CLARI JEFFERS Start: 06-11-2023 Magnesium [Mass/volume] in Serum or Plasma CLARI JEFFERS Start: 06-11-2023 Osmolality of Serum or Plasma CLARI LUCIANA MUHAMMAD Start: 06-11-2023 Phosphate [Mass/volume] in Serum or Plasma CLARI JEFFERS Start: 06-11-2023 CT ABDOMEN PELVIS W IV CONTRAST CLARI F RHONDA Start: 06-11-2023 BLOOD GAS LACTIC ACID, ARTERIAL CLARI Sevilla RHONDA Start: 06-11-2023 CBC panel - Blood by Automated count CLARI JEFFERS Start: 06-11-2023 RENAL FUNCTION PANEL CLARI JEFFERS Start: 06-11-2023 Bacteria identified in Blood by Culture CLARI JEFFERS Start: 06-11-2023 XR CHEST 1 VIEW CLARI JEFFERS Start: 06-11-2023 CBC panel - Blood by Automated count CLARI JEFFERS Start: 06-11-2023 Comprehensive metabolic 2000 panel - Serum or Plasma CLARI JEFFERS Start: 06-11-2023 Heparin assay CLARI JEFFERS Start: 06-11-2023 Magnesium [Mass/volume] in Serum or Plasma CLARI JEFFERS Start: 06-11-2023 Osmolality of Serum or Plasma CLARI MUHAMMAD Start: 06-10-2023 XR CHEST 1 VIEW CLARI JEFFERS Start: 06-10-2023 XR FOOT LEFT 3+ VIEWS CLARI JEFFERS Start: 06-10-2023 CBC panel - Blood by Automated count CLARI JEFFERS Start: 06-10-2023 Comprehensive metabolic 2000 panel - Serum or Plasma CLARI JEFFERS Start: 06-10-2023 Heparin assay CLARI JEFFERS Start: 06-10-2023 Magnesium [Mass/volume] in Serum or Plasma CLARI JEFFERS Start: 06-10-2023 SERIAL TROPONIN, 1 HOUR CLARI JEFFERS Start: 06-09-2023 Heparin assay CLARI JEFFERS Start: 06-09-2023 STAPHYLOCOCCUS AUREUS/MRSA COLONIZATION, CULTURE CLARI JEFFERS Start: 06-09-2023 TRANSTHORACIC ECHO (TTE) COMPLETE CLARI JEFFERS Start: 06-09-2023 RENAL FUNCTION PANEL CLARI JEFFERS Start: 06-09-2023 Heparin assay CLARI JEFFERS Start: 06-09-2023 Bacteria identified in Blood by Culture CLARI JEFFERS Start: 06-09-2023 PT EVAL AND TREAT CLARI JEFFERS Start: 06-09-2023 RESPIRATORY VIRAL PANEL CLARI JEFFERS Start: 06-09-2023 SARS-COV-2 PCR, SCREEN ASYMPTOMATIC CHRISTOPH JEFFERS Start: 06-09-2023 LEGIONELLA ANTIGEN, URINE CLARI JEFFERS Start: 06-09-2023 STREPTOCOCCUS PNEUMONIAE ANTIGEN, URINE CLARI JEFFERS Start: 06-09-2023 TRANSTHORACIC ECHO (TTE) LIMITED CLARI JEFFERS Start: 06-09-2023 XR CHEST 1 VIEW CLARI JEFFERS Start: 06-09-2023 CBC W Auto Differential panel - Blood CLARI JEFFERS Start: 06-09-2023 COAGULATION SCREEN CLARI JEFFERS Start: 06-09-2023 Comprehensive metabolic 2000 panel - Serum or Plasma CLARI JEFFERS Start: 06-09-2023 Lactate [Moles/volume] in Serum or Plasma CLARI JEFFERS Start: 06-09-2023 Magnesium [Mass/volume] in Serum or Plasma CLARI JEFFERS Start: 06-09-2023 Natriuretic peptide B [Mass/volume] in Blood CLARI JEFFERS Start: 06-09-2023 TROPONIN SERIES- (INITIAL, 1 HR) CLARI JEFFERS Start: 06-09-2023 BLOOD GAS ARTERIAL FULL PANEL CLARI MUHAMMAD Start: 06-09-2023 ADMIT TO INPATIENT CLARI JEFFERS Start: 06-09-2023 MEASURE HEIGHT CLARI JEFFERS Start: 06-09-2023 PULSE OXIMETRY, CONTINUOUS CLARI JEFFERS Start: 06-09-2023 WEIGH PATIENT CLARI JEFFERS Start: 06-08-2023 Legionella pneumophila antigen assay Dr. Coy Nath Work Phone: Start: 06-08-[address] Coy Nath Work Phone: Start: 06-08-2023 Streptococcus pneumoniae Antigen (M Dr. Coy Nath Work Phone: Start: 06-08-[address] Coy Nath Work Phone: Start: 06-07-2023 Bacteria identified in Blood by Culture Dr. Coy Nath Work Phone: Start: 06-07-2023 Plain chest X-ray Dr. Coy Nath Work Phone: Start: 05-26-2023 CT of chest without contrast Dr. Coy Nath Work Phone: Start: 05-25-2023 Legionella pneumophila antigen assay Dr. Coy Nath Work Phone: Start: 05-25-2023 Streptococcus pneumoniae Antigen (M Dr. Coy Nath Work Phone: Start: 05-25-[address] Coy Nath Work Phone: Start: 05-25-2023 Plain chest X-ray Dr. Coy Nath Work Phone: Start: 02-10-[address] Coy Nath Work Phone: Start: 10-24-[address] Coy Nath Work Phone: H/O: hysterectomy BALDEV KULKARNI MD History of operative procedure on lumbar spinal structure BALDEV KULKARNI MD Plan of Treatment Date Care Activity Detail Author Start: 06-17-2026 DTaP/Tdap/Td Vaccines (2 - Td or Tdap) DTaP/Tdap/Td Vaccines (2 - Td or Tdap) [facility] Start: 05-02-2025 Patient discharge [facility] Start: 11-22-2024 Giardia Antigen (GALA) Giardia Antigen (GALA) [facility] Start: 11-22-2024 Ova and Parasites Ova and Parasites [facility] Start: 11-22-2024 [facility] Start: 10-05-2024 Patient referral [facility] Work Phone: Start: 08-29-2024 Patient discharge [facility] Start: 08-28-2024 Following clinical pathway protocol [facility] Start: 08-28-2024 Ambulation therapy management [facility] Start: 08-28-2024 Application of ice collar, cap or bag [facility] Start: 08-28-2024 Elevation of head of bed [facility] Start: 08-28-2024 Incentive spirometry [facility] Start: 08-28-2024 [facility] Start: 08-28-2024 Admission procedure [facility] Start: 08-28-2024 Anesthesia hernia repair lower abdomen nos ANESTH REPAIR OF HERNIA [facility] Start: 08-28-2024 RPR AA HRN 1ST < 3 NCR/STRN RPR AA HRN 1ST < 3 NCR/STRN [facility] Start: 08-28-2024 Patient referral to dietitian [facility] Start: 10-26-2023 End: 10-26-2023 Patient encounter procedure 10/26/2023 3:45 PM EDT Office Visit [facility] [address] [place] [id number] Mal Phipps MD [address] [place] [address] [facility] Start: 08-12-2023 End: 08-12-2023 Patient encounter procedure 08/12/2023 8:30 AM EST Office Visit [facility] [address] [facility] [address] [place] [address] [place] [address] [place] [address] [facility] Start: 07-20-2023 End: 07-20-2023 Patient encounter procedure 07/20/2023 11:00 AM EST Office Visit [facility] [address] [place] [id number] Mal Phipps MD [address] [place] [address] [facility] Start: 07-09-2023 [facility] Start: 06-15-2023 [facility] Start: 06-14-2023 [facility] Start: 06-13-2023 [facility] Start: 06-12-2023 [facility] Start: 06-11-2023 [facility] Start: 06-10-2023 [facility] Start: 06-09-2023 [facility] Start: 06-08-2023 Patient discharge [facility] Start: 06-08-2023 Streptococcus pneumoniae antigen assay [facility] Start: 06-08-2023 [facility] Start: 06-08-2023 Care planning and problem solving actions [facility] Start: 06-08-2023 Bacteria identified in Urine by Culture Urine Culture [facility] Start: 06-08-2023 Dual pressure spontaneous ventilation support [facility] Start: 06-08-2023 Inhalation therapy procedure [facility] Start: 06-07-2023 Ambulation without limitation [facility] Start: 06-07-2023 Assessment of risk of venous thromboembolism [facility] Start: 06-07-2023 Incentive spirometry [facility] Start: 06-07-2023 Insertion of catheter into peripheral vein [facility] Start: 06-07-2023 Measuring intake and output [facility] Start: 06-07-2023 Providing care according to standard [facility] Start: 06-07-2023 Referral to occupational therapist [facility] Start: 06-07-2023 Referral to service [facility] Start: 06-07-2023 [facility] Start: 06-07-2023 Blood culture [facility] Start: 06-07-2023 Following clinical pathway protocol [facility] Start: 06-07-2023 Oxygen therapy [facility] Start: 06-07-2023 Cardiac monitoring [facility] Start: 06-07-2023 Catheterization of vein [facility] Start: 06-07-2023 Continuous pulse oximetry [facility] Start: 06-07-2023 Enteric precautions [facility] Start: 06-07-2023 Notification of physician [facility] Start: 06-07-2023 Leukocyte reduced red blood cells [facility] Start: 06-07-2023 End: 06-07-2023 [facility] Start: 06-07-2023 Hospital admission, emergency, from emergency room, medical nature [facility] Start: 06-07-2023 Admission procedure [facility] Start: 06-07-2023 Bacteria identified in Blood by Culture Blood Culture [facility] Start: 06-07-2023 [facility] Start: 06-02-2023 Blood chemistry [facility] Start: 06-01-2023 Blood chemistry [facility] Start: 05-31-2023 Blood chemistry [facility] Start: 05-30-2023 Blood chemistry [facility] Start: 05-29-2023 Blood chemistry [facility] Start: 05-28-2023 Blood chemistry [facility] Start: 05-27-2023 Blood chemistry [facility] Start: 05-26-2023 Patient discharge [facility] Start: 05-26-2023 Care planning and problem solving actions [facility] Start: 05-25-2023 End: 05-26-2023 [facility] Start: 05-25-2023 Ambulation without limitation [facility] Start: 05-25-2023 Insertion of catheter into peripheral vein [facility] Start: 05-25-2023 Measuring intake and output [facility] Start: 05-25-2023 Providing care according to standard [facility] Start: 05-25-2023 Care planning and problem solving actions [facility] Start: 05-25-2023 Admission procedure [facility] Start: 05-25-2023 Oxygen therapy [facility] Start: 05-25-2023 Following clinical pathway protocol [facility] Start: 04-16-2023 COVID-19 Vaccine ( season) COVID-19 Vaccine ( season) [facility] Start: 07-28-2022 COVID-19 Vaccine (3 - Moderna series) COVID-19 Vaccine (3 - Moderna series) [facility] Start: 06-11-2011 Zoster Vaccines (2 of 3) Zoster Vaccines (2 of 3) [facility] Start: 1999 Hepatitis B Vaccines (1 of 3 - Risk 3-dose series) Hepatitis B Vaccines (1 of 3 - Risk 3-dose series) [facility] Start: 1958 Hepatitis A Vaccines (1 of 2 - Risk 2-dose series) Hepatitis A Vaccines (1 of 2 - Risk 2-dose series) [facility] Start: 1945 Pneumococcal Vaccine: 65+ Years (1 - PCV) Pneumococcal Vaccine: 65+ Years (1 - PCV) [facility] Start: 1939 Lipid panel Lipid Panel [facility] Start: 1940 Medicare Annual Wellness Visit Medicare Annual Wellness Visit (AWV) [facility] Start: 1939 Screening for osteoporosis Bone Density Scan [facility] Start: 1939 Thyroid stimulating hormone measurement TSH Level [facility] Anion gap measurement [facility] Anion gap measurement [facility] Anion gap measurement [facility] Anion gap measurement [facility] Anion gap measurement [facility] Anion gap measurement [facility] Anion gap measurement [facility] Bilirubin measuremen t, urine [facility] Blood culture [facility] BUN/Creatinine ratio [facility] BUN/Creatinine ratio [facility] BUN/Creatinine ratio [facility] BUN/Creatinine ratio [facility] BUN/Creatinine ratio [facility] BUN/Creatinine ratio [facility] BUN/Creatinine ratio [facility] Calcium [Mass/volume ] in Serum or Plasma [facility] Calcium [Mass/volume ] in Serum or Plasma [facility] Calcium [Mass/volume ] in Serum or Plasma [facility] Calcium [Mass/volume ] in Serum or Plasma [facility] Calcium [Mass/volume ] in Serum or Plasma [facility] Calcium [Mass/volume ] in Serum or Plasma [facility] Calcium [Mass/volume ] in Serum or Plasma [facility] Carbon dioxide, tota l [Moles/volume] in Serum or Plasma [facility] Carbon dioxide, tota l [Moles/volume] in Serum or Plasma [facility] Carbon dioxide, tota l [Moles/volume] in Serum or Plasma [facility] Carbon dioxide, tota l [Moles/volume] in Serum or Plasma [facility] Carbon dioxide, tota l [Moles/volume] in Serum or Plasma [facility] Carbon dioxide, tota l [Moles/volume] in Serum or Plasma [facility] Carbon dioxide, tota l [Moles/volume] in Serum or Plasma [facility] Cardiac event recording [facility] Chloride [Moles/volu me] in Serum or Plasma [facility] Chloride [Moles/volu me] in Serum or Plasma [facility] Chloride [Moles/volu me] in Serum or Plasma [facility] Chloride [Moles/volu me] in Serum or Plasma [facility] Chloride [Moles/volu me] in Serum or Plasma [facility] Chloride [Moles/volu me] in Serum or Plasma [facility] Chloride [Moles/volu me] in Serum or Plasma [facility] Clostridioides diffi cile DNA [Presence] in Unspecified specimen by ROBY with probe detection [facility] Creatinine [Moles/vo lume] in Serum or Plasma [facility] Creatinine [Moles/vo lume] in Serum or Plasma [facility] Creatinine [Moles/vo lume] in Serum or Plasma [facility] Creatinine [Moles/vo lume] in Serum or Plasma [facility] Creatinine [Moles/vo lume] in Serum or Plasma [facility] Creatinine [Moles/vo lume] in Serum or Plasma [facility] Creatinine [Moles/vo lume] in Serum or Plasma [facility] Giardia lamblia Ag [Presence] in Stool by Immunoassay [facility] Giardia lamblia anti gen assay [facility] Glucose [Mass/volume ] in Serum or Plasma [facility] Glucose [Mass/volume ] in Serum or Plasma [facility] Glucose [Mass/volume ] in Serum or Plasma [facility] Glucose [Mass/volume ] in Serum or Plasma [facility] Glucose [Mass/volume ] in Serum or Plasma [facility] Glucose [Mass/volume ] in Serum or Plasma [facility] Glucose [Mass/volume ] in Serum or Plasma [facility] Hematocrit [Volume Fraction] of Blood [facility] Hematocrit [Volume Fraction] of Blood [facility] Hematocrit [Volume Fraction] of Blood [facility] Hematocrit [Volume Fraction] of Blood [facility] Hematocrit [Volume Fraction] of Blood [facility] Hematocrit [Volume Fraction] of Blood [facility] Hematocrit [Volume Fraction] of Blood [facility] Hemoglobin [Mass/vol ume] in Blood [facility] Hemoglobin [Mass/vol ume] in Blood [facility] Hemoglobin [Mass/vol ume] in Blood [facility] Hemoglobin [Mass/vol ume] in Blood [facility] Hemoglobin [Mass/vol ume] in Blood [facility] Hemoglobin [Mass/vol ume] in Blood [facility] Hemoglobin [Mass/vol ume] in Blood [facility] Hemoglobin [Presence ] in Urine [facility] Leukocytes [#/volume ] in Blood [facility] Leukocytes [#/volume ] in Blood [facility] Leukocytes [#/volume ] in Blood [facility] Leukocytes [#/volume ] in Blood [facility] Leukocytes [#/volume ] in Blood [facility] Leukocytes [#/volume ] in Blood [facility] Leukocytes [#/volume ] in Blood [facility] Mean corpuscular hemoglobin concentration determination [facility] Mean corpuscular hemoglobin concentration determination [facility] Mean corpuscular hemoglobin concentration determination [facility] Mean corpuscular hemoglobin concentration determination [facility] Mean corpuscular hemoglobin concentration determination [facility] Mean corpuscular hemoglobin concentration determination [facility] Mean corpuscular hemoglobin concentration determination [facility] Mean corpuscular hemoglobin determination [facility] Mean corpuscular hemoglobin determination [facility] Mean corpuscular hemoglobin determination [facility] Mean corpuscular hemoglobin determination [facility] Mean corpuscular hemoglobin determination [facility] Mean corpuscular hemoglobin determination [facility] Mean corpuscular hemoglobin determination [facility] Measurement of keton es in urine using dipstick [facility] Measurement of renal function [facility] Measurement of renal function [facility] Measurement of renal function [facility] Measurement of renal function [facility] Measurement of renal function [facility] Measurement of renal function [facility] Measurement of renal function [facility] Microscopic urinalysis [facility] Neutrophil count [facility] Neutrophil count [facility] Neutrophil count [facility] Neutrophil count [facility] Neutrophil count [facility] Neutrophil count [facility] Neutrophil count [facility] Neutrophil percent differential count [facility] Neutrophil percent differential count [facility] Neutrophil percent differential count [facility] Neutrophil percent differential count [facility] Neutrophil percent differential count [facility] Neutrophil percent differential count [facility] Neutrophil percent differential count [facility] Ova OR parasites identification [facility] Ova OR parasites identification [facility] Patient Education [facility] Work Phone: Patient referral [facility] Work Phone: pH of Urine [facility] Platelets [#/volume] in Blood [facility] Platelets [#/volume] in Blood [facility] Platelets [#/volume] in Blood [facility] Platelets [#/volume] in Blood [facility] Platelets [#/volume] in Blood [facility] Platelets [#/volume] in Blood [facility] Platelets [#/volume] in Blood [facility] Potassium [Moles/vol ume] in Serum or Plasma [facility] Potassium [Moles/vol ume] in Serum or Plasma [facility] Potassium [Moles/vol ume] in Serum or Plasma [facility] Potassium [Moles/vol ume] in Serum or Plasma [facility] Potassium [Moles/vol ume] in Serum or Plasma [facility] Potassium [Moles/vol ume] in Serum or Plasma [facility] Potassium [Moles/vol ume] in Serum or Plasma [facility] Protein measurement [facility] Red blood cell count [facility] Red blood cell count [facility] Red blood cell count [facility] Red blood cell count [facility] Red blood cell count [facility] Red blood cell count [facility] Red blood cell count [facility] Red cell distributio n width determination [facility] Red cell distributio n width determination [facility] Red cell distributio n width determination [facility] Red cell distributio n width determination [facility] Red cell distributio n width determination [facility] Red cell distributio n width determination [facility] Red cell distributio n width determination [facility] Sodium [Moles/volume ] in Serum or Plasma [facility] Sodium [Moles/volume ] in Serum or Plasma [facility] Sodium [Moles/volume ] in Serum or Plasma [facility] Sodium [Moles/volume ] in Serum or Plasma [facility] Sodium [Moles/volume ] in Serum or Plasma [facility] Sodium [Moles/volume ] in Serum or Plasma [facility] Sodium [Moles/volume ] in Serum or Plasma [facility] Specific gravity of Urine [facility] Urea nitrogen [Mass/volume] in Serum or Plasma [facility] Urea nitrogen [Mass/volume] in Serum or Plasma [facility] Urea nitrogen [Mass/volume] in Serum or Plasma [facility] Urea nitrogen [Mass/volume] in Serum or Plasma [facility] Urea nitrogen [Mass/volume] in Serum or Plasma [facility] Urea nitrogen [Mass/volume] in Serum or Plasma [facility] Urea nitrogen [Mass/volume] in Serum or Plasma [facility] Urinalysis, blood, qualitative [facility] Urine dipstick for glucose [facility] Urine dipstick for leukocyte esterase [facility] Urine dipstick for nitrite [facility] Urine dipstick for protein [facility] Urine examination [facility] Urine microscopy: epithelial cells [facility] Urine Microscopy: wh ite cells [facility] Urobilinogen [Presen ce] in Urine [facility] Immunizations Immunization Date Immunization Notes Care Provider [facility] 05-06-2023 influenza, injectabl e, quadrivalent, preservative free Dr. Coy Nath Work Phone: [facility] 06-02-2022 Covid Pfizer Bivalen t Booster Dr. Coy Nath Work Phone: [facility] 06-02-2022 influenza, injectabl e, quadrivalent, preservative free Dr. Coy Nath Work Phone: [facility] 06-05-2021 influenza, injectabl e, quadrivalent, preservative free Dr. Coy Nath Work Phone: [facility] 06-05-2021 influenza, seasonal, injectable Dr. Coy Nath Work Phone: [facility] 12-19-2020 Darciid (Moderna) Dr. Coy Nath Work Phone: [facility] 11-21-2020 Loy (Moderna) Dr. Coy Nath Work Phone: [phone] [place] [address] 06-05-2020 influenza virus vaccine, unspecified formulation BALDEV KULKARNI MD [facility] Comment on above: Result Comment: [facility] 06-05-2020 influenza, injectabl e, quadrivalent, preservative free Dr. Coy Nath Work Phone: [facility] 07-08-2019 influenza virus vaccine, unspecified formulation BALDEV KULKARNI MD [facility] Comment on above: Result Comment: [facility] 07-08-2019 Seasonal trivalent influenza vaccine, adjuvanted, preservative free Dr. Coy Nath Work Phone: [facility] 05-26-2018 Seasonal trivalent influenza vaccine, adjuvanted, preservative free Dr. Coy Nath Work Phone: [facility] 05-27-2017 Seasonal trivalent influenza vaccine, adjuvanted, preservative free Dr. Coy Nath Work Phone: [facility] 06-17-2016 tetanus toxoid, redu marissa diphtheria toxoid, and acellular pertussis vaccine, adsorbed BALDEV KULKARNI MD [facility] 05-28-2016 Influenza, high dose seasonal Dr. Coy Nath DO Work Phone: [facility] 05-28-2016 influenza, high dose seasonal, preservative-free Dr. Coy Nath Work Phone: [facility] 07-03-2015 Influenza, high dose seasonal Dr. Coy Nath DO Work Phone: [facility] 07-03-2015 influenza, high dose seasonal, preservative-free Dr. Coy Nath Work Phone: [facility] 08-13-2014 influenza, injectabl e, quadrivalent, preservative free Dr. Coy Nath Work Phone: [facility] 08-16-2012 Influenza, high dose seasonal Dr. Coy Nath DO Work Phone: [facility] 08-16-2012 influenza, high dose seasonal, preservative-free Dr. Coy Nath Work Phone: [facility] 04-16-2011 zoster vaccine, live Dr. Jenna Ntah Work Phone: [facility] Payers Date Payer Category Payer Self-pay [id number] 2017 Medicare [employer] MEDICARE [employer] GOLD CHOICE [id number] 2017-Present [address] [address] [place] [address] [id number] 2013 Medicare [id number] 1939 Unknown [id number] [id number]7 1939 Unknown [id number] 2.16.840.1.265154.3.579.2.627 1939 Unknown [id number] 2.16.840.1.858546.3.579.2.124 5 1939 Unknown [id number] 2.16.840.1.651730.3.579.2.124 5 1939 Unknown [id number] 2.16.840.1.208432.3.579.2.124 5 1939 Unknown [id number] 2.16.840.1.069870.3.579.2.124 7 1939 Unknown [id number] 2.16.840.1.279228.3.579.2.124 7 Unknown [id number] 2.16.840.1.707843.3.579.2.462 Unknown [id number] 2.16.840.1.962691.3.579.2.462 Unknown [id number] 2.16.840.1.920395.3.579.2.462 Unknown [id number] 2.16.840.1.006093.3.579.2.462 Unknown [id number] 2.16.840.1.022276.3.579.2.462 Unknown [id number] 2.16.840.1.485838.3.579.2.462 Unknown [id number] 2.16.840.1.579228.3.579.2.462 Unknown [id number] 2.16.840.1.551231.3.579.2.462 Unknown [id number] 2.16.840.1.591674.3.579.2.462 Unknown [id number] 2.16.840.1.588265.3.579.2.462 Unknown [id number] 2.16840.1.376926.3.579.2.462 Unknown [id number] 2.16.840.1.510183.3.579.2.462 Unknown [id number] 2.16.840.1.683805.3.579.2.462 Unknown [id number] 2.16.840.1.242136.3.579.2.462 Unknown [id number] 2.16.840.1.654895.3.579.2.462 Unknown [id number] 2.16.840.1.029048.3.579.2.462 Unknown [id number] 2.16.840.1.630452.3.579.2.462 Unknown [id number] 2.16.840.1.632817.3.579.2.462 Unknown [id number] 2.16.840.1.380027.3.579.2.462 Unknown [id number] 2.16.840.1.731928.3.579.2.462 Unknown [id number] 2.16.840.1.028117.3.579.2.462 Unknown [id number] 2.16.840.1.533574.3.579.2.462 Unknown [id number] 2.16.840.1.524548.3.579.2.462 Unknown [id number] 2.16.840.1.360469.3.579.2.462 Unknown [id number] 2.16840.1.360302.3.579.2.462 Unknown [id number] 2.16840.1.776733.3.579.2.462 Unknown [id number] 2.16840.1.393514.3.579.2.462 Social History Date Type Detail Facility Start: 12-31-2021 End: 07-21-2023 Tobacco smoking status IAIS Unknown if ever smoked [facility] Start: 11-24-2016 None [facility] Start: 06-29-2017 With Family [facility] Start: 10-14-2017 Non-smoker [facility] Start: 1940 Sex Assigned At Female [facility] Start: 06-08-2023 End: 04-26-2025 Tobacco smoking status NHIS Never smoked tobacco [facility] Start: 06-08-2023 Tobacco use and exposure Smokeless tobacco [facility]-user [facility] [facility] Work Phone: Start: 06-16-2023 End: 07-20-2023 Alcohol intake Lifetime non-drinker (finding) [facility] Work Phone: Start: 06-09-2023 End: 06-23-2023 History of Social function [facility] Start: 06-09-2023 End: 06-23-2023 [facility] Utilities [facility] Has the electric, gas, oil, or water [employer] threatened to shut off services in your home in past 12Mo No [facility] How often to you hav e a drink containing alcohol? Never [facility] Work Phone: How many standard drinks containing alcohol do you have on a typical day? Patient does not drink [facility] Work Phone: (I/We) worried whether (my/our) food would run out before (I/we) got money to buy more. Never true [facility] Work Phone: Start: 1940 Sex Assigned At Not on file U [facility] Work Phone: Start: 05-29-2023 End: 10-26-2023 Exposure to SARS-CoV-2 (event) Not sure [facility] Work Phone: Start: 10-31-2024 End: 11-27-2024 Sex Female (finding) [facility] NEGATED: Highlighted row Not [facility] Medical Equipment Procedure Code Equipment Code Equipment Origin al Text Equipment Identifier Dates Extra-gynaecolog ical surgical mesh, composite-polymer [id number] FDA Start: 08-28-2024 Goals Date Patient Goal Desired Activity /State Functional Status Date Assessment Result Facility 08-29-2024 Functional status Ambulates;Chair [facility] Work Phone: 07-05-2023 Functional Status Standard Safet y ID band on, Allergy Band on, Call device within reach, Bed in low position, Wheels locked, Upper/Half-Length side-rails up, Bedside Cart Locked, Safety level maintained [facility] 06-08-2023 Functional status Bedrest [facility] Work Phone: 05-26-2023 Functional status Ambulates;Bathroom Priv ilege [facility] Work Phone: Mental Status Date Assessment Result Facility 05-02-2025 Cognitive function Voice/Name [facility] Work Phone: 08-29-2024 Cognitive function Voice/Name [facility] Work Phone: 07-09-2023 Cognitive function Awake;Alert;Appropriat e [facility] Work Phone: 07-05-2023 Mental Status Orientation Oriented x 4 [facility] 06-08-2023 Cognitive function Voice/Name [facility] Work Phone: 05-26-2023 Cognitive function Voice/Name [facility] Work Phone: Clinical Notes 05-25-2023 to 05-02-2025 Note Date & Type Note Facility 05-02-2025 Consult note Note Date/Time May 02, 2025 7:04[facility] Medical Records Department [address] [place] [address] Pre-Anesthesia Evaluation 05/02/25 0701 MR#: [id number] Acct: [id number] Name: MODESTA COOK Rep #:[id number] : 1940 84 From: Srikanth Danielson PCP: Dr. Coy Nath, DO Status:RE G SDC Y Race: C Location: [place] [address] ASA Classification* ASA Classification ASA Classification: 3 Assessment & Plan Anesthesia* Anesthesia Assessment Anesthesia Assessment: Discussed sedation and/or anesthesia options, risks, benefits, and alternatives with patient/parents/legal guardian/POA. Questions invited. The patient/parents/legal guardian/POA seems to understand and agrees to proceedwith anesthesia plan. Reviewed the physical assessment, medical history, allergy history and patient home medications list prior to surgery/procedure/anesthetic and documented any changes. Performed airway and anesthesia risk assessments. Anesthesia Type Anesthesia Type: MAC History Source History Obtained from:: Patient, Chart and Significant Other (Daughter) Anesthesia Focused Assessment* Temperature: 97.4 F Pulse Rate: 53 Blood Pressure: 157/62 Respiratory Rate: 18 Pulse Ox: 99 Oxygen Delivery Method: Room Air Airway Assessment Mouth opens: >3 cm Mallampati Score: II Teeth Condition: Dentures Neck Range of motion (ROM): Limited ROM Labs Anesthesia Preop lab: CBC WBC, (4.4-11.0) 7.9 K/mm3 10/25/24, 11:54 RBC, (4.2-5.4) 4.13 M/mm3 L 10/25/24, 11:54 Hgb, (12.0-15.0) 12.6 g/dL 10/25/24, 11:54 Hct, (37-47) 37.8 % 10/25/24, 11:54 Plt Count, (150-450) 372 K/mm3 10/25/24, 11:54 CHEMISTRY Potassium, (3.3-5.1) 5.0 mmol/L 10/25/24, 11:54 Sodium, (133-145) 129 mmol/L L 10/25/24, 11:54 Magnesium, (1.6-2.6) 2.2 mg/dL 06/07/23, 20:03 Phosphorus, (2.5-4.9) 2.8 mg/dL 06/07/23, 20:03 BUN, (4-19) 26 mg/dL H 10/25/24, 11:54 Creatinine, (0.70-1.20) 0.72 mg/dL 10/25/24, 11:54 Glucose, (70-99) 96 mg/dL 10/25/24, 11:54 TSH, (0.358-3.74) 5.56 uIU/mL H 06/08/23, 06:48 COAG PT, (11.7-14.9) 21.0 SECONDS H 08/30/23, 10:50 Pre-Assessment Diagnosis/Proposed Procedure Planned Operative Procedure(s): EGD Anesthesia History Anesthesia History - 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 When Was Last Pacemaker Check QUESTION #4 FULL TEXT: You/Your Family Experience fever (hyperthermia) with Anesthesia Last Oral Intake Last Oral intake: Last Oral Intake NPO since 05:30 05/02/25 06:51 Meds taken in AM with sips of No 05/02/25 06:51 water? 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 - automobile travel club counselor: PONV - automobile travel club counselor Female Yes 04/26/25 13:59 HX of Motion Sickness No 04/26/25 13:59 HX of N/V After Surgery No 04/26/25 13:59 Non-Smoker Yes 04/26/25 13:59 Duration of Surgery greater No 04/26/25 13:59 than 60 minutes Number of Risk Factors 2 04/26/25 13:59 PONV Score Moderate Risk 04/26/25 13:59 Height & Weight Height & Weight: Anesthesia: Height & Weight Height 5 ft 05/02/25 06:51 Weight: 59 kg 05/02/25 06:51 Body Mass Index (BMI) 25.4 05/02/25 06:51 Respiratory Assessment Respiratory Assessment - automobile travel club counselor: Respiratory Tract Infection Hx - automobile travel club counselor Hx Respiratory Tract Infection No 04/26/25 13:59 STOP Sleep Apnea STOP Sleep Apnea - automobile travel club counselor: STOP Sleep Apnea - automobile travel club counselor Hx Hypertension Yes: CONTROLLED WITH MEDS 04/26/25 [...] Tobacco Use History Tobacco Use History - automobile travel club counselor: Tobacco Use History - automobile travel club counselor Tobacco Use Smoking Status Never smoker 04/26/25 13:59 Hx Tobacco Use No 04/26/25 13:59 Years Smoking Packs Smoked per Day Smoking Cessation Date was within the last 15 years Hx Smoking Cessation Date Hx Smoking Cessation Counseling Hematologic Medial History Hematologic Hx - automobile travel club counselor: Hematologic Medical Hx - network support Hx of Blood Transfusion Yes 04/26/25 13:59 Hx of Transfusion in last 3 No 04/26/25 13:59 Months Date of Last Transfusion (if within last 3 months) Ever experience any problems No 04/26/25 13:59 with transfusion(s)? Specify any problems Hx of Preganancy in last 3 N/A 04/26/25 13:59 Months Nurse Filling Out Transfusion NBUCHER 04/26/25 13:59 & Questions: Date: 04/26/25 04/26/25 13:59 Time: 14:00 04/26/25 13:59 Patient unable to answer at this time (ie. confused, unrespo /Reproduction History /Reproductive History - automobile travel club counselor: /Reproductive Hx- automobile travel club counselor Hx Now Gestational Age (in weeks): EDC: Hx Hx Para Hx Section SAB No 04/26/25 13:59 Active Medications Active Medications: Current Medications Generic Name Dose Route Start Last Admin Trade Name Freq PRN Reason Stop Dose Admin Lactated Ringer's 1,000 mls @ 15 mls/hr 05/02/25 06:45 05/02/25 06:50 IV 15 mls/hr .Q48H SHAYAN Administration PFSH Medical History Loss of hearing Wears [...] Hyperlipemia Hypertension History of pneumonia Home Medications ?Medication ?Instructions ?Recorded ?Last Taken ?Type aspirin 81 mg tablet,delayed 81 mg PO DAILY HEART 11/1404/28/25 History release cetirizine 10 mg tablet (Zyrtec) 10 mg PO QHS allergy symptoms 06/07/23 05/01/25 History valsartan 160 mg tablet 160 mg PO DAILY #90 tabs 05/02/25 Rx methylcellulose (with sugar) oral 1 tbsp PO BID 05/01/25 History powder (Citrucel (sucrose) oral powder) metoprolol succinate 25 mg 25 mg PO BID #180 TABLETS 0 01/16/25 05/02/25 Rx tablet,extended release 24 hr pantoprazole 40 mg tablet,delayed 40 mg PO DAILY #90 t abs 03/26/25 05/02/25 Rx release amlodipine 10 mg tablet 10 mg PO DAILY for blood pre ssure 04/10/25 05/02/25 Rx #90 TABLETS nitrofurantoin macrocrystal 50 mg 50 mg PO QHS #90 cap s 04/10/25 05/01/25 Rx capsule pravastatin 40 mg tablet 40 mg PO DAILY for cholester ol #90 04/10/25 05/02/25 Rx TABLETS spironolactone 25 mg tablet 25 mg PO DAILY #90 TABLETS 04/10/25 05/02/25 Rx Allergy/AdvReac Type Severity Reaction Status Date / Time nitroglycerin Allergy Mild NEEDS Verified 05/02/25 06:49 FOLLOW-UP amiodarone Allergy Rash Verified 05/02/25 06:49 chlorpheniramine (From AdvReac Other Verified 05/02/25 06:49 Actifed Cold-Allergy) phenylephrine (From Actifed AdvReac Other Verified 05/02/25 06:49 Cold-Allergy) pseudoephedrine (From AdvReac Other Verified 05/02/25 06:49 Actifed Cold-Allergy) triprolidine (From Actifed AdvReac Other Verified 05/02/25 06:49 Cold-Allergy) Family History Mother Diabetes Hypertension CVA (cerebral vascular accident) Father Myocardial infarction, Onset Age: 80 Brother Cancer Surgical History History of ventral hernia repair S/P spigelian hernia repair, follow-up exam History of cardiac catheterization Hx of colonoscopy History of esophagogastroduodenoscopy (EGD) History of tonsillectomy History of appendectomy History of hysterectomy History of back surgery History of foot surgery Social History Smoking Status: Never smoker alcohol intake: never substance use type: does not use what type of physical activity do you participate in: walking frequency: daily Review of Systems (Anesthesia) ROS Narrative System reviewed and no additional complaints, except as documented. 05/02/25 0704 <Electronically signed by Srikanth Costa MD> Date _ Srikanth Mittal Signature: Date CC: ~ Signed [facility] Work Phone: 1(727) 998-192209-17-2025 History and physical note Author George Friend [facility] Note Date/Time May 02, 2025 6:43am [facility] Medical Records Department [address] [place] [address] History & Physical Exam 05/02/25 0641 MR#: [id number] Acct: [id number] Name: MODESTA COOK Rep #:[id number] : 1940 84 From: George Guzmán DO PCP: Dr. Coy Nath, DO Status:[facility] Location: [place] [address] HPI - General General Date of Admission: 05/02/25 Date of Service: 05/02/25 Chief Complaint: abdominal pain HPI Narrative MODESTA COOK, is a 84 F who presents with the Chief Complaint: abd pain BGI established in November 2024 with diarrhea x3-4 months. Typically pt had constipation. SHe is having about 5 episodes of diarrhea per day take. SHe is taking Imodium and citricil with little improvement. Last colonoscopy many yearsago. Stool 4.5.25; Calprotectin 408 H, O&P, Giardia, c.dif wnl *start Budesonide 9 mg [...] pills and meats. She is on pantoprazole. [facility] Medical History Loss of hearing Wears glasses [...] Hyperlipemia Hypertension History of pneumonia Home Medications ?Medication ?Instructions ?Recorded ?Last Taken ?Type aspirin 81 mg tablet,delayed 81 mg PO DAILY HEART 11/1408/23/24 History release cetirizine 10 mg tablet (Zyrtec) 10 mg PO QHS allergy symptoms 06/07/23 08/27/24 21:30 History valsartan 160 mg tablet 160 mg PO DAILY #90 tabs Unknown Rx methylcellulose (with sugar) oral 1 tbsp PO BID Unknown History powder (Citrucel (sucrose) oral powder) metoprolol succinate 25 mg 25 mg PO BID #180 TABLETS 0 01/16/25 Unknown Rx tablet,extended release 24 hr pantoprazole 40 mg tablet,delayed 40 mg PO DAILY #90 t abs 03/26/25 Unknown Rx release amlodipine 10 mg tablet 10 mg PO DAILY for blood pre ssure 04/10/25 Unknown Rx #90 TABLETS nitrofurantoin macrocrystal 50 mg 50 mg PO QHS #90 cap s 04/10/25 Unknown Rx capsule pravastatin 40 mg tablet 40 mg PO DAILY for cholester ol #90 04/10/25 Unknown Rx TABLETS spironolactone 25 mg tablet 25 mg PO DAILY #90 TABLETS 04/10/25 Unknown Rx Allergy/AdvReac Type Severity Reaction Status Date / Time nitroglycerin Allergy Mild NEEDS Verified 04/26/25 13:55 FOLLOW-UP amiodarone Allergy Rash Verified 04/26/25 13:55 chlorpheniramine (From AdvReac Other Verified 04/26/25 13:55 Actifed Cold-Allergy) phenylephrine (From Actifed AdvReac Other Verified 04/26/25 13:55 Cold-Allergy) pseudoephedrine (From AdvReac Other Verified 04/26/25 13:55 Actifed Cold-Allergy) triprolidine (From Actifed AdvReac Other Verified 04/26/25 13:55 Cold-Allergy) Family History Mother Diabetes Hypertension CVA (cerebral vascular accident) Father Myocardial infarction, Onset Age: 80 Brother Cancer Surgical History History of ventral hernia repair S/P spigelian hernia repair, follow-up exam History [...] in: walking frequency: daily ROS Constitutional Constitutional: Denies fatigue, fever(s), poor appetite, weight gain or weight loss Gastrointestinal Gastrointestinal: Denies belching, bloating, change in bowel habits, change in stool character, chewing difficulty, coffee ground emesis, constipation, cramping, diarrhea, dyspepsia, dysphagia, early satiety, excessive flatus, fecalincontinence, heartburn, hematemesis, hematochezia, hemorrhoids, loose stools, melena, nausea, odynophagia, rectal bleeding, tenesmus, vomiting or weight changes Physical Exam Const alert, oriented x3, no apparent distress and healthy appearing General Appearance: cooperative GI normal to inspection, nondistended, normoactive bowel sounds, soft to palpation,non-tender and non-distended Percussion: normal to percussion Rectal Exam: deferred Assessment & Plan Assessment/Plan (1) Anemia: QUALIFIERS: Anemia type: other cause Other causes of anemia: other cause, not classified Qualified Code(s): D64.89 - Other specified anemias (2) Early satiety: (3) Abdominal pain: PLAN: Assessment and Plan Assessment and Plan (1) Constipation: Status: Acute Plan: Modesta is an 84-year-old female patient here today for follow-up regarding herconstipation and diarrhea. Patient initially established with clinic for diarrhea. She underwent stool testing which showed an elevated calprotectin in the 400s. Patient declined colonoscopy and she was started on empiric budesonide for inflammation in her colon. Budesonide however made her constipated and gave her thrush. Budesonide was discontinued. Her bowels have regulatedat this point and she has daily bowel movements. Patient endorses over the pastfew months having early satiety, difficulty swallowing and excessive eructation. Due to these symptoms and her recent unintentional weight loss over the past few months she will be scheduled for upper endoscopy. I did review risks of upper endoscopy including perforation, bleeding or infection. She was agreeable to proceed. -EGD with dilation if indicated - Continue PPI - Follow-up after procedure Note: The [employer] speech recognition wash worker software was used to create portions of this document. Sound-alike and misspelled words, as well as other wash worker errors may be contained in the documentation. (2) Difficulty swallowing: Status: Acute Comment: "CANNOT SWALLOW LARGE PILL" DRY MOUTH PER PATIENT (3) Diarrhea: Status: Acute (4) Early satiety: Status: Acute 05/02/25 0643 <Electronically signed by George Guzmán DO> Cosigner Signature (if applicable): CC: Dr. Coy Nath DO; George Guzmán DO~ Signed [facility] Work Phone: 1(926) 529-414009-17-2025 Procedure note [facility] Medical Records Department [address] [place] [id number] EGD Report MR#: [id number] Acct: [id number] Name: MODESTA COOK Rep #:[id number] : 1940 84 From: George Guzmán DO PCP: Dr. Coy Nath DO Status:[facility] Patient Name: Modesta Cook Procedure Date: 05/02/2025 7:43 AM Date of : 1940 Age: 84 Procedure: Upper GI endoscopy Indications: Epigastric abdominal pain, Dysphagia Providers: George Guzmán DO Referring MD: Coy Nath Medicines: Monitored Anesthesia Care Patient Profile: This is an 84 year old female. Refer to note in patient chart for documentation of history and physical. Patient has symptoms of acute abdominal cramping, acute abdominal distention and acute dyspepsia. Complications: No immediate complications. Procedure: Pre-Anesthesia Assessment: - Prior to the procedure, a History and Physical was performed, and patient medications and allergies were reviewed. The patient is competent. The risks and benefits of the procedure and the sedation options and risks were discussed with the patient. All questions were answered and informed consent was obtained. Patient identification and proposed procedure were verified by the physician in the pre-procedure area. Mental Status Examination: alert and oriented. Airway Examination: normal oropharyngeal airway and neck mobility. Respiratory Examination: clear to auscultation. CV Examination: normal. Prophylactic Antibiotics: The patient does not require prophylactic antibiotics. Prior Anticoagulants: The patient has taken no anticoagulant or antiplatelet agents. ASA Grade Assessment: II - A patient with mild systemic disease. After reviewing the risks and benefits, the patient was deemed in satisfactory condition to undergo the procedure. The anesthesia plan was to use monitored anesthesia care (MAC). Immediately prior to administration of medications, the patient was re-assessed for adequacy to receive sedatives. The heart rate, respiratory rate, oxygen saturations, blood pressure, adequacy of pulmonary ventilation, and response to care were monitored throughout the procedure. The physical status of the patient was re-assessed after the procedure. After obtaining informed consent, the endoscope was passed under direct vision. Throughout the procedure, the patient's blood pressure, pulse, and oxygen saturations were monitored continuously. The Endoscope was introduced through the mouth, and advanced to the third part of the duodenum. Small bowel enteroscopy was deemed necessary. The upper GI endoscopy was accomplished without difficulty. The patient tolerated the procedure well. Scope In: 7:54:40 AM Scope Withdrawal Time 0 hours 0 minutes 1 second Scope Out: 8:04:37 AM Total Procedure Duration Time 0 hours 9 minutes 57 seconds Findings: Abnormal motility was noted in the esophagus. The cricopharyngeus was abnormal. There are extra peristaltic waves in the esophageal body. The distal esophagus/lower esophageal sphincter is spastic, but gives up passage to the endoscope. Tertiary peristaltic waves are noted. Biopsies were taken with a cold forceps for histology. Verification of patient identification for the specimen was done. A guidewire was placed and the scope was withdrawn. Dilation was performed with a Savary dilator with no resistance at 54 Fr. The dilation site was examined and showed moderate improvement in luminal narrowing. Estimated blood loss: none. A benign-appearing, intrinsic severe stenosis was found at the pylorus. This was traversed. A guidewire was placed and the scope was withdrawn. Dilation was performed with a Savary dilator with no resistance at 54 Fr. Suspect gastroparesis due to absence of peristalsis and patient symptoms. No gross lesions were noted in the entire examined duodenum. A 10 mm non-bleeding diverticulum was found in the gastric fundus. Impression: - Abnormal esophageal motility. Biopsied. Dilated. 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 - Gastroparesis. - No gross lesions in the entire examined duodenum. Recommendation: - Discharge patient to home. - Resume previous diet. - Continue present medications. - Await pathology results. Procedure Code(s): --- Professional --- 52523, Esophagogastroduodenoscopy, flexible, transoral; with dilation of gastric/duodenal stricture(s) (eg, balloon, bougie) 65032, Esophagogastroduodenoscopy, flexible, transoral; with insertion of guide wire followed by passage of dilator(s) through esophagus over guide wire 56019, 59,51, Small intestinal endoscopy, enteroscopy beyond second portion of duodenum, not including ileum; with biopsy, single or multiple CPT copyright 2021 [employer]. All rights reserved. The codes documented in this report are preliminary and upon production laborer review may be revised to meet current compliance requirements. George Guzmán DO 05/02/2025 8:23:08 AM This report has been signed electronically. Number of Addenda: 0 Note Initiated On: 05/02/2025 7:43 AM 05/02/25 0823 Date _ George Friend DO Cosigner Signature: Date (if indicated) CC: Dr. Coy Nath DO; George Guzmán DO ~ Date Dictated: 05/02/25742 Date Transcribed: Ventilation Equipment Tender: RF Signed [facility]09-17-2025 Procedure note [facility] Medical Records Department [address] [place] [address] Provation Physician Letter MR#: [id number] Acct: [id number] Name: MODESTA COOK Rep #:[id number] : 1940 84 From: George Guzmán DO PCP: Dr. Coy Nath DO Status:[facility] 05/02/2025 Coy Nath Re : Upper GI endoscopy procedure for Modesta Cook Dear Dr. Nath This procedure was performed on Wednesday, May 02, 2025. My impressions and recommendations are as follows: Impressions : - Abnormal esophageal motility. Biopsied. Dilated. 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 - Gastroparesis. - No gross lesions in the entire examined duodenum. Recommendations : - Discharge patient to home. - Resume previous diet. - Continue present medications. - Await pathology results. My findings are described in the full procedure note, which is enclosed. If I can be of further assistance, please feel free to contact me at . Sincerely, George Guzmán DO 05/02/2025 8:23:08 AM This report has been signed electronically. 05/02/25822 Date _ George Guzmán DO Cosigntiffanie Signature: Date (if indicated) CC: Dr. Coy Nath DO; George Guzmán DO ~ Date Dictated: 05/02/25 0743 Date Transcribed: Ventilation Equipment Tender: RF Signed [facility]09-17-2025 Consult note [facility] Medical Records Department [address] [place] [address] Anesthesia Postop Eval I 05/02/25 0813 MR#: [id number] Acct: [id number] Name: TERRI COOKRICIA Ofelia Rep #:[id number] : 1940 84 From: Gabino Julio PCP: Dr. Coy Nath, DO Status:[facility] Race: C Location: [place] [address] Anesthesia: Postop Eval I Current Vital Signs Temperature: 97 F Pulse Rate: 61 Blood Pressure: 153/55 Respiratory Rate: 16 Pulse Ox: 99 Oxygen Delivery Method: Room Air Assessment Airway patent: Yes Spontaneous unlabored respirations: Yes Mental status: Awake and Calm nausea: No Vomiting: No Anesthesia Complication: No Fluid Hydration Crystalloid volume administer (ml): 400 Total IV fluid infused: 400 Progress Note Anesthesia document: Postop Eval 1 completed: Yes 05/02/25 0814 > Date _ Gabino Mittal Signature: Date CC: ~ Signed [facility]09-17-2025 Consult note [facility] Medical Records Department [address] [place] [address] Pre-Anesthesia Evaluation 05/02/25 0701 MR#: [id number] Acct: [id number] Name: TERRI COOKRICIA Ofelia Rep #:[id number] : 1940 84 From: Srikanth Danielson PCP: Dr. Coy Nath, DO Status:[facility] Race: C Location: [place] [address] ASA Classification* ASA Classification ASA Classification: 3 Assessment & Plan Anesthesia* Anesthesia Assessment Anesthesia Assessment: Discussed sedation and/or anesthesia options, risks, benefits, and alternatives with patient/parents/legal guardian/POA. Questions invited. The patient/parents/legal guardian/POA seems to understand and agrees to proceedwith anesthesia plan. Reviewed the physical assessment, medical history, allergy history and patient home medications list prior to surgery/procedure/anesthetic and documented any changes. Performed airway and anesthesia risk assessments. Anesthesia Type Anesthesia Type: MAC History Source History Obtained from:: Patient, Chart and Significant Other (Daughter) Anesthesia Focused Assessment* Temperature: 97.4 F Pulse Rate: 53 Blood Pressure: 157/62 Respiratory Rate: 18 Pulse Ox: 99 Oxygen Delivery Method: Room Air Airway Assessment Mouth opens: >3 cm Mallampati Score: II Teeth Condition: Dentures Neck Range of motion (ROM): Limited ROM Labs Anesthesia Preop lab: CBC WBC, (4.4-11.0) 7.9 K/mm3 10/25/24, 11:54 RBC, (4.2-5.4) 4.13 M/mm3 L 10/25/24, 11:54 Hgb, (12.0-15.0) 12.6 g/dL 10/25/24, 11:54 Hct, (37-47) 37.8 % 10/25/24, 11:54 Plt Count, (150-450) 372 K/mm3 10/25/24, 11:54 CHEMISTRY Potassium, (3.3-5.1) 5.0 mmol/L 10/25/24, 11:54 Sodium, (133-145) 129 mmol/L L 10/25/24, 11:54 Magnesium, (1.6-2.6) 2.2 mg/dL 06/07/23, 20:03 Phosphorus, (2.5-4.9) 2.8 mg/dL 06/07/23, 20:03 BUN, (4-19) 26 mg/dL H 10/25/24, 11:54 Creatinine, (0.70-1.20) 0.72 mg/dL 10/25/24, 11:54 Glucose, (70-99) 96 mg/dL 10/25/24, 11:54 TSH, (0.358-3.74) 5.56 uIU/mL H 06/08/23, 06:48 COAG PT, (11.7-14.9) 21.0 SECONDS H 08/30/23, 10:50 Pre-Assessment Diagnosis/Proposed Procedure Planned Operative Procedure(s): EGD Anesthesia History Anesthesia History - 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 When Was Last Pacemaker Check QUESTION #4 FULL TEXT: You/Your Family Experience fever (hyperthermia) with Anesthesia Last Oral Intake Last Oral intake: Last Oral Intake NPO since 05:30 05/02/25 06:51 Meds taken in AM with sips of No 05/02/25 06:51 water? 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 - automobile travel club counselor: PONV - automobile travel club counselor Female Yes 04/26/25 13:59 HX of Motion Sickness No 04/26/25 13:59 HX of N/V After Surgery No 04/26/25 13:59 Non-Smoker Yes 04/26/25 13:59 Duration of Surgery greater No 04/26/25 13:59 than 60 minutes Number of Risk Factors 2 04/26/25 13:59 PONV Score Moderate Risk 04/26/25 13:59 Height & Weight Height & Weight: Anesthesia: Height & Weight Height 5 ft 05/02/25 06:51 Weight: 59 kg 05/02/25 06:51 Body Mass Index (BMI) 25.4 05/02/25 06:51 Respiratory Assessment Respiratory Assessment - automobile travel club counselor: Respiratory Tract Infection Hx - automobile travel club counselor Hx Respiratory Tract Infection No 04/26/25 13:59 STOP Sleep Apnea STOP Sleep Apnea - automobile travel club counselor: STOP Sleep Apnea - automobile travel club counselor Hx Hypertension Yes: CONTROLLED WITH MEDS 04/26/25 [...] than talking or can be heard through closeddoors)? Tobacco Use History Tobacco Use History - automobile travel club counselor: Tobacco Use History - automobile travel club counselor Tobacco Use Smoking Status Never smoker 04/26/25 13:59 Hx Tobacco Use No 04/26/25 13:59 Years Smoking Packs Smoked per Day Smoking Cessation Date was within the last 15 years Hx Smoking Cessation Date Hx Smoking Cessation Counseling Hematologic Medial History Hematologic Hx - automobile travel club counselor: Hematologic Medical Hx - network support Hx of Blood Transfusion Yes 04/26/25 13:59 Hx of Transfusion in last 3 No 04/26/25 13:59 Months Date of Last Transfusion (if within last 3 months) Ever experience any problems No 04/26/25 13:59 with transfusion(s)? Specify any problems Hx of Preganancy in last 3 N/A 04/26/25 13:59 Months Nurse Filling Out Transfusion NBUCHER 04/26/25 13:59 & Questions: Date: 04/26/25 04/26/25 13:59 Time: 14:00 04/26/25 13:59 Patient unable to answer at this time (ie. confused, unrespo /Reproduction History /Reproductive History - automobile travel club counselor: /Reproductive Hx- automobile travel club counselor Hx Now Gestational Age (in weeks): EDC: Hx Hx Para Hx Section SAB No 04/26/25 13:59 Active Medications Active Medications: Current Medications Generic Name Dose Route Start Last Admin Trade Name Freq PRN Reason Stop Dose Admin Lactated Ringer's 1,000 mls @ 15 mls/hr 05/02/25 06:45 05/02/25 06:50 IV 15 mls/hr .Q48H SHAYAN Administration PFSH Medical History Loss of hearing Wears [...] Hyperlipemia Hypertension History of pneumonia Home Medications ?Medication ?Instructions ?Recorded ?Last Taken ?Type aspirin 81 mg tablet,delayed 81 mg PO DAILY HEART 11/1404/28/25 History release cetirizine 10 mg tablet (Zyrtec) 10 mg PO QHS allergy symptoms 06/07/23 05/01/25 History valsartan 160 mg tablet 160 mg PO DAILY #90 tabs 05/02/25 Rx methylcellulose (with sugar) oral 1 tbsp PO BID 05/01/25 History powder (Citrucel (sucrose) oral powder) metoprolol succinate 25 mg 25 mg PO BID #180 TABLETS 0 01/16/25 05/02/25 Rx tablet,extended release 24 hr pantoprazole 40 mg tablet,delayed 40 mg PO DAILY #90 t abs 03/26/25 05/02/25 Rx release amlodipine 10 mg tablet 10 mg PO DAILY for blood pre ssure 04/10/25 05/02/25 Rx #90 TABLETS nitrofurantoin macrocrystal 50 mg 50 mg PO QHS #90 cap s 04/10/25 05/01/25 Rx capsule pravastatin 40 mg tablet 40 mg PO DAILY for cholester ol #90 04/10/25 05/02/25 Rx TABLETS spironolactone 25 mg tablet 25 mg PO DAILY #90 TABLETS 04/10/25 05/02/25 Rx Allergy/AdvReac Type Severity Reaction Status Date / Time nitroglycerin Allergy Mild NEEDS Verified 05/02/25 06:49 FOLLOW-UP amiodarone Allergy Rash Verified 05/02/25 06:49 chlorpheniramine (From AdvReac Other Verified 05/02/25 06:49 Actifed Cold-Allergy) phenylephrine (From Actifed AdvReac Other Verified 05/02/25 06:49 Cold-Allergy) pseudoephedrine (From AdvReac Other Verified 05/02/25 06:49 Actifed Cold-Allergy) triprolidine (From Actifed AdvReac Other Verified 05/02/25 06:49 Cold-Allergy) Family History Mother Diabetes Hypertension CVA (cerebral vascular accident) Father Myocardial infarction, Onset Age: 80 Brother Cancer Surgical History History of ventral hernia repair S/P spigelian hernia repair, follow-up exam History of cardiac catheterization Hx of colonoscopy History of esophagogastroduodenoscopy (EGD) History of tonsillectomy History of appendectomy History of hysterectomy History of back surgery History of foot surgery Social History Smoking Status: Never smoker alcohol intake: never substance use type: does not use what type of physical activity do you participate in: walking frequency: daily Review of Systems (Anesthesia) ROS Narrative System reviewed and no additional complaints, except as documented. 05/02/25 0704 MD> Date _ Srikanth Costa MD Cosigner Signature: Date CC: ~ Signed [facility]09-17-[address] [facility] Medical Records Department [address] [place] [address] History & Physical Exam 05/02/25 0641 MR#: [id number] Acct: [id number] Name: MODESTA COOK Rep #:[id number] : 1940 84 From: George Friend DO PCP: Dr. Coy Nath DO Status:[facility] Location: [place] [address] HPI - General General Date of Admission: 05/02/25 Date of Service: 05/02/25 Chief Complaint: abdominal pain HPI Narrative MODESTA CLEMENT, is a 84 F who presents with the Chief Complaint: abd pain BGI established in November 2024 with diarrhea x3-4 months. Typically pt had constipation. SHe is having about 5 episodes of diarrhea per day take. SHe is taking Imodium and citricil with little improvement. Last colonoscopy many yearsago. Stool 4.5.25; Calprotectin 408 H, O&P, Giardia, c.dif wnl *start Budesonide 9 mg [...] constipation. She has daily bowel movements. She hashaving some lower abdominal pain prior to having [...] pills and meats. She is on pantoprazole. [facility] Medical History Loss of hearing Wears glasses [...] Hyperlipemia Hypertension History of pneumonia Home Medications ?Medication ?Instructions ?Recorded ?Last Taken ?Type aspirin 81 mg tablet,delayed 81 mg PO DAILY HEART 11/1408/23/24 History release cetirizine 10 mg tablet (Zyrtec) 10 mg PO QHS allergy symptoms 06/07/23 08/27/24 21:30 History valsartan 160 mg tablet 160 mg PO DAILY #90 tabs Unknown Rx methylcellulose (with sugar) oral 1 tbsp PO BID 05/28/ 25 Unknown History powder (Citrucel (sucrose) oral powder) metoprolol succinate 25 mg 25 mg PO BID #180 TABLETS 0 01/16/25 Unknown Rx tablet,extended release 24 hr pantoprazole 40 mg tablet,delayed 40 mg PO DAILY #90 t abs 03/26/25 Unknown Rx release amlodipine 10 mg tablet 10 mg PO DAILY for blood pre ssure 04/10/25 Unknown Rx #90 TABLETS nitrofurantoin macrocrystal 50 mg 50 mg PO QHS #90 cap s 04/10/25 Unknown Rx capsule pravastatin 40 mg tablet 40 mg PO DAILY for cholester ol #90 04/10/25 Unknown Rx TABLETS spironolactone 25 mg tablet 25 mg PO DAILY #90 TABLETS 04/10/25 Unknown Rx Allergy/AdvReac Type Severity Reaction Status Date / Time nitroglycerin Allergy Mild NEEDS Verified 04/26/25 13:55 FOLLOW-UP amiodarone Allergy Rash Verified 04/26/25 13:55 chlorpheniramine (From AdvReac Other Verified 04/26/25 13:55 Actifed Cold-Allergy) phenylephrine (From Actifed AdvReac Other Verified 04/26/25 13:55 Cold-Allergy) pseudoephedrine (From AdvReac Other Verified 04/26/25 13:55 Actifed Cold-Allergy) triprolidine (From Actifed AdvReac Other Verified 04/26/25 13:55 Cold-Allergy) Family History Mother Diabetes Hypertension CVA (cerebral vascular accident) Father Myocardial infarction, Onset Age: 80 Brother Cancer Surgical History History of ventral hernia repair S/P spigelian hernia repair, follow-up exam History [...] in: walking frequency: daily ROS Constitutional Constitutional: Denies fatigue, fever(s), poor appetite, weight gain or weight loss Gastrointestinal Gastrointestinal: Denies belching, bloating, change in bowel habits, change in stool character, chewing difficulty, coffee ground emesis, constipation, cramping, diarrhea, dyspepsia, dysphagia, earlysatiety, excessive flatus, fecalincontinence, heartburn, hematemesis, hematochezia, hemorrhoids, loose stools, melena, nausea, odynophagia, rectal bleeding, tenesmus, vomiting or weight changes Physical Exam Const alert, oriented x3, no apparent distress and healthy appearing General Appearance: cooperative GI normal to inspection, nondistended, normoactive bowel sounds, soft to palpation,non-tender and non-distended Percussion: normal to percussion Rectal Exam: deferred Assessment & Plan Assessment/Plan (1) Anemia: QUALIFIERS: Anemia type: other cause Other causes of anemia: other cause, not classified Qualified Code(s): D64.89 - Other specified anemias (2) Early satiety: (3) Abdominal pain: PLAN: Assessment and Plan Assessment and Plan (1) Constipation: Status: Acute Plan: Modesta is an 84-year-old female patient here today for follow-up regarding herconstipation and diarrhea. Patient initially established with clinic for diarrhea. She underwent stool testing which showed an elevated calprotectin in the 400s. Patient declined colonoscopy and she was started on empiric budesonide for inflammation in her colon. Budesonide however made her constipated and gave her thrush. Budesonide was discontinued. Her bowels have regulatedat this point and she has daily bowel movements. Patient endorses over the pastfew months having early satiety, difficulty swallowing and excessive eructation. Due to these symptoms and her recent unintentional weight loss over the past fewmonths she will be scheduled for upper endoscopy. I did review risks of upper endoscopy including perforation, bleeding or infection. She was agreeable to proceed. -EGD with dilation if indicated - Continue PPI - Follow-up after procedure Note: The [employer] speech recognition wash worker software was used to create portions of this document. Sound-alike and misspelled words, as well as other wash worker errors may be contained in the documentation. (2) Difficulty swallowing: Status: Acute Comment: "CANNOT SWALLOW LARGE PILL" DRY MOUTH PER PATIENT (3) Diarrhea: Status: Acute (4) Early satiety: Status: Acute 05/02/25 0643 Cosigner Signature (if applicable): CC: Dr. Coy Nath DO; George Guzmán DO~ Signed [facility]09-17-2025 [facility] Medical Records Department [address] [place] [address] History Physical Exam 05/02/25 0641 MR#: [id number] Acct: [id number] Name: MODESTA COOK Rep #: [id number] : 1940 84 From: George Guzmán DO PCP: Dr. Coy Nath DO Status[facility] Location: [place] [address] HPI - General General Date of Admission: 05/02/25 Date of Service: 05/02/25 Chief Complaint: abdominal pain HPI Narrative MODESTA COOK, is a 84 F who presents with the Chief Complaint: abd pain BGI established in November 2024 with diarrhea [...] pills and meats. She is on pantoprazole. [facility] Medical History Loss of hearing Wears glasses [...] (Zyrtec) 10 mg PO QHS allergy symptoms 05/1708/27/24 21:30 History valsartan 160 mg tablet 160 mg PO DAILY #90 tabs 10/11/24 Unknown Rx methylcellulose (with sugar) oral 1 tbsp PO BID 01/10/25 Unknown Hi story powder (Citrucel (sucrose) oral powder) metoprolol succinate 25 mg 25 mg PO BID #180 TABLETS 01/16/25 Unknown Rx tablet,extended release 24 hr pantoprazole 40 mg tablet,delayed 40 mg PO DAILY #90 tabs 03/26/25 Unknown Rx release amlodipine 10 mg tablet 10 mg PO DAILY for blood pressure 04/10/25 Unknown Rx #90 TABLETS nitrofurantoin macrocrystal 50 mg 50 mg PO QHS #90 caps 04/10/25 Un known Rx capsule pravastatin 40 mg tablet 40 mg PO DAILY for cholesterol #90 04/10/25 Unknown Rx TABLETS spironolactone 25 mg tablet 25 mg PO DAILY #90 TABLETS 5 Unknown Rx Allergy/AdvReac Type Severity Reaction Status Date / Time nitroglycerin Allergy Mild NEEDS Verified 04/26/25 13:55 FOLLOW-UP amiodarone Allergy Rash Verified 04/26/25 13:55 chlorpheniramine (From AdvReac Other Verified 04/26/25 13:55 Actifed Cold-Allergy) phenylephrine (From Actifed AdvReac Other Verified 04/26/25 13:55 Cold-Allergy) pseudoephedrine (From AdvReac Other Verified 04/26/25 13:55 Actifed Cold-Allergy) triprolidine (From Actifed AdvReac Other Verified 04/26/25 13:55 Cold-Allergy) Family History Mother Diabetes Hypertension CVA (cerebral vascular accident) Father Myocardial infarction, Onset Age: 80 Brother Cancer Surgical History History of ventral hernia repair S/P spigelian hernia repair, follow-up exam History of cardiac catheterization Hx of colonoscopy History of esophagogastroduodenoscopy (EGD) History of tonsillectomy History of appendectomy History of hysterectomy History of back surgery History of foot surgery Social History Smoking Status: Never smoker alcohol intake: never substance use type: does not use what type of physical activity do you participate in: walking iron (more content not included)...[facility]05-28-2025 Evaluation note* Diagnosis Onset Date Resolution Status Admit Date Sinusitis, acute frontal acute January 10, 2025 9:21am Constipation acute March 22, 2025 3:16pm Diarrhea acute March 22 3:16pm Difficulty swallowing acute Mar 3:16pm Early satiety acute March 22, 2025 3:16pm Abdominal pain acute May 02, 2025 6:22am Anemia acute April 6:22am Early satiety acute April 162024 6:22am [facility] Work Phone: 1(665) 261-506705-28-2025 [facility] [address] [place] [address] [place] [address] OFFICE VISIT Date of Service: 01/10/25 MR#: [id number] Acct: [id number] Name: MODESTA COOK Rep #: [id number] : 1940 Provider: Dr. Lexx Nath DO Age/Sex: 84/F Location: [facility] Status: Signed Intake Vital Signs 10/25/24 11:35 01/10/25 09:42 Height 5 ft 5 ft Weight: 137 lb BMI 26.7 BP 138/76 H Blood Pressure Location Lt brachial Position Sitting Respiration 18 Pulse 54 L Pulse Source Monitor Temp 97.8 F Temp Source Temporal Pulse Oximetry (%) 96 Oxygen Delivery Method room air Intake Visit Reasons: congestion/drainage Chief Complaint: congestion/drainage Cad Librarian Required: No Is patient in pain?: No [...] mg tablet 40 mg PO QHS CHOLESTROL 01/0 10/1001/10/25 History pantoprazole 40 mg tablet,delayed 40 mg [...] change in bowel habits, constipation, cramping, diarrhea,nausea/dyspepsia orvomiting Genitourinary-Female: No burning urination, painful urination, urinary [...] acute distress Nutritional Appearance: average body habitus HENMT Head: normal to inspection Ears: hearing grossly [...] the past year?: Yes (x1) 01/10/25 1006 wn DO> Date _ Coy Nath DO Cosigner Signature: Date (if applicable) CC: ~ [facility]05-28-2025 Progress note Author Coy Nath [facility] Note Date/Time January 10, 2025 10:06 am [facility] [address] [place] [address] [place] [address] OFFICE VISIT Date of Service: 01/10/25 MR#: [id number] Acct: [id number] Name: MODESTA COOK Rep #: [id number] : 1940 Provider: Dr. Lexx Nath, DO Age/Sex: 84/F Location: [facility] Status: Signed Intake Vital Signs 10/25/24 11:35 01/10/25 09:42 Height 5 ft 5 ft Weight: 137 lb BMI 26.7 BP 138/76 H Blood Pressure Location Lt brachial Position Sitting Respiration 18 Pulse 54 L Pulse Source Monitor Temp 97.8 F Temp Source Temporal Pulse Oximetry (%) 96 Oxygen Delivery Method room air Intake Visit Reasons: congestion/drainage Chief Complaint: congestion/drainage Cad Librarian Required: No Is patient in pain?: No [...] mg tablet 40 mg PO QHS CHOLESTROL 10/1001/10/25 History pantoprazole 40 mg tablet,delayed 40 mg [...] fallen in the past year?: Yes (x1) [facility] Medical History Loss of hearing Wears glasses [...] acute distress Nutritional Appearance: average body habitus HENMT Head: normal to inspection Ears: hearing grossly [...] ambriz DO> Date _ Coy Nath DO [facility] Signature: Date (if applicable) CC: ~ [facility] Work Phone: 1(926) 930-263005-06-2025 Evaluation note* Diagnosis Onset Date Resolution Status Admit Date Constipation acute December 19 3:17pm Diarrhea acute December 19, 2024 3:17pm Sinusitis, acute frontal acute January 10, 2025 9:21am [facility] Work Phone: 1(118) 859-198702-20-2025 Evaluation note* Diagnosis Onset Date Resolution Status [...] acute November 17 3:18pm Difficulty swallowing acute Apr 2024 3:18pm Non-specific colitis noneactive Apri 2024 3:18pm Constipation acute December 19 3:17pm Diarrhea acute December 19, 2024 3:17pm Sinusitis, acute frontal acute January 10, 2025 9:21am [facility] Work Phone: 1(457) 922-976601-14-2025 [facility] Medical Records Department [address] [place] [address] Discharge Summary 08/29/24 1832 MR#: [id number] Acct: [id number] Name: MODESTA COOK Rep #: [id number] : 1940 84 From: Emily Madrigal MD PCP: Dr. Coy Nath, Status:[facility] Location: [place] [address] Providers Date of Admission: 08/28/24 Primary Care [...] 81.4 H, Lymph % (Auto) 13.1 L, [place] % (Auto) 4.7, Eos % (Auto) 0.0, [...] Diet ??? Start lig (more content not included)...[facility]01-13-2025 Evaluation note* Diagnosis Onset Date Resolution Status [...] acute November 17 3:18pm Difficulty swallowing acute Apr il 2024 3:18pm Non-specific colitis noneactive Apri l 2024 3:18pm [facility] Work Phone: 1(790) 456-563401-13-2025 [facility] Medical Records Department [address] [place] [address] History Physical Exam 08/28/24 1020 MR#: [id number] Acct: [id number] Name: MODESTA COOK Rep #: [id number] : 1940 84 From: Emily Madrigal MD PCP: Dr. Coy Nath, DO Status:[facility] Location: [place] [address] History and Physical Date of Admission: 08/28/24 Date of Service: 07/04/24 MR#: [id number] Acct: [id number] Name: MODESTA COOK Rep #: [id number] : 1940 Provider: Dr. Emily Madrigal MD Age/Sex: 83/F Location: [facility] Status: Signed Intake Vital Signs 06/15/2414:59 07/04/2414:58 [...] Reasons: VENTRAL HERNIA Chief Complaint: ventral hernia Cad Librarian Required: No Is patient in pain?: No [...] she has experienced diarrhea as well as "coffee grounds" consistency bowel character. However, today she reports that her bowels are back to normal color and consistency. She notes that "once in a while" she will experience pressure in her lower abdomen diffusely when her bowels "do not go down". Patient confirms that she has spent the last year outs (more content not included)...[facility]12-12-2024 Evaluation note* Diagnosis Onset Date Resolution Status Admit Date Cough acute July 27, 2024 12:26pm Rhinosinusitis acute July 162023 12:26pm Hernia of abdominal wall resolved August 28, 2024 4:58pm Diarrhea acute September 06, 2024 1:52pm S/P spigelian hernia repair, follow-up exam acute September 06 1:52pm Diarrhea acute October 05, 2024 2:43pm S/P spigelian hernia repair, follow-up exam acute October 05, 025 2:43pm Bronchitis chronic October 11, 2024 11:27am Elevated LFTs acute October 25, 2024 11:23am Exertional dyspnea acute October 25, 2024 11:23am Bronchitis chronic October 25 11:23am History of atrial fibrillation chronic October 25, 2024 11:23am Hypertension chronic October 25, 2024 11:23am Diarrhea acute November 17 3:18pm Difficulty swallowing acute Apr 2024 3:18pm Non-specific colitis noneactive Apri l 2024 3:18pm [facility] Work Phone: 1([phone]) 684-127211-19-2024 Evaluation note* Diagnosis Onset Date Resolution Status [...] hernia repair, follow-up exam acute October 05, 025 2:43pm Bronchitis chronic October 11, 2024 11:27am Elevated LFTs acute October 25, 2024 11:23am Exertional dyspnea acute October 25, 2024 11:23am Bronchitis chronic October 25 11:23am History of atrial fibrillation chron ic October 25, 2024 11:23am Hypertension chronic October 25, 2024 11:23am [facility] Work Phone: 1([phone]) 397-748103-12-2024 History of Present illness Narrative* Mal Phipps MD - 10/26/2023 3:45 PM EDT [facility] Cardiology Outpatient Follow-up Visit Reason for Visit: follow-up for atrial fibrillation HPI: Modesta Cook is a 83 y.o. female who presents today for a follow-up for atrial fibrillation.Past medical history of atrial fibrillation ([id number] 4; previously on coumadin- stopped due to hx of adverse bleeding), HTN, DLD, chronic lower back pain, left rectus sheath hematoma (05/2023- s/pIR coil embolization 06/15/2023), and thrombocytosis. Previously admitted to [facility] 06/08-06/23/2023. Patient was transferred from [facility] to [facility] for pericardial effusion. Admitted to the [...] LV thrombus. 06/11 CT with contrast revealed [id number] L rectus abdominus hematoma (H/H stable). 06/12 ANABEL without evidence of LV thrombusand DCCV was attempted. Amiodarone gtt initiated for afib rate and potential rhythm control. Digoxin loaded overnight of 06/11-06/12 for rate control (persistent afib and soft BP). Discharged with event monitor and started on coumadin (PCP managing- Dr. Coy Nath / Dr. Manju Staton in [facility]). Discharged home without diuretic therapy as [...] fibrillation. Past medical history of atrial fibrillation ([id number] 4; on coumadin- goal INR 2- 3), [...] Plan: 1. Paroxysmal Atrial fibrillation / flutter ([id number] 4) - Given history of adverse bleeding [...] - continue coumadin as tolerated 5. Discussed "red flag" symptoms that should prompt immediate medical attention; patient verbalizedunderstanding Disposition- return to cardiology clinic in 6-12 months Thank you for your visit today. Please contact our office with any questions. Mal Phipps MD [facility] Work Phone: 1(796) 655-580703-12-2024 Instructions* Patient Instructions* Mal Phipps MD - [...] visit today. Please contact our office (via EggCartelt or phone) with any additional questions. [facility] [place] Analia, YUNG/Clinic Nurse for: Dr. Desire Mccabe [address], [address] [place] [address] Press Option 5 then Option 3 to speak with the Clinic Nurse (Analia) To Reach: Billing Questions - [phone] Scheduling / Rescheduling - Option 1 Refills / Medication Requests - Option 3 General Office / [place] - Option 4 Results - Option 6 Medical Records - Option 7 Repeat Options - Option 9 [facility] Work Phone: 1([phone]) 809-229612-05-2023 History of Present illness Narrative* Mal Phipps MD - 07/20/2023 11:00 AM EST [facility] Cardiology Outpatient Follow-up Visit Reason for Visit: hospital follow-up for atrial fibrillation HPI: Modesta Cook is a 82 y.o. female who presents today for a hospital discharge follow-up for atrial fibrillation, establish care with general cardiology. Past medical history of atrial fibrillation (VVEKT8URWI 4; on coumadin- goal INR 2-3), HTN, DLD, chronic lower back pain, left rectus sheath hematoma (05/2023- s/p IR coil embolization 06/15/2023), and thrombocytosis. Patient was previously admitted to [facility] 06/08-06/23/2023. Patient was transferred from [facility] to [facility] for pericardial effusion. Admitted to the [...] LV thrombus. 06/11 CT with contrast revealed 20y7x6sp L rectus abdominus hematoma (H/H stable). 06/12 ANABEL without evidence of LV thrombusand DCCV was attempted. Amiodarone gtt initiated for afib rate and potential rhythm control. Digoxin loaded overnight of 06/11-06/12 for rate control (persistent afib and soft BP). Discharged with event monitor and started on coumadin (PCP managing- Dr. Coy Nath / Dr. Manju Staton in [facility]). Discharged home without diuretic therapy as [...] Adult) Pulse 54 Ht 1.6 m (5' 3") Wt 66.7 kg (147 lb) SpO2 97% [...] 308 (H) 06/08/2023 No results found for: "TSH" Assessment: 82 y.o. female who presents today for a hospital discharge follow-up for atrial fibrillation. Past medical history of atrial fibrillation (LHQVC0FVMK 4; on coumadin- goal INR 2-3), HTN, [...] on exam. Overall Plan: 1. Atrial fibrillation (SHBVB0TIMY 4) - Continue coumadin with goal INR [...] - continue coumadin as tolerated 5. Discussed "red flag" symptoms that should prompt immediate medical attention; patient verbalizedunderstanding Disposition- return to cardiology clinic in 3-6 months Thank you for your visit today. Please contact our office with any questions. Mal Phipps MD documented in this [facility] Work Phone: 1([phone]) 562-239912-05-2023 Instructions* Patient Instructions* Mal Phipps MD - 07/20/2023 11:00 AM EST Your heart rate is currently well controlled. We will continue coumadin, please follow-up with yourprimary care. If they are not able to manage your coumadin we would then refer you to coumadin clinic. Thank you for your visit today. Please contact our office (via MyChart or phone) with any additional questions. Please call my nurse Analia with any questions. [facility] [place] Analia, RN/Clinic Nurse for: Dr. Desire Mccabe [address], [address] [place] [address] Press Option 5 then Option 3 to speak with the Clinic Nurse (Analia) To Reach: Billing Questions - [phone] Scheduling / Rescheduling - Option 1 Refills / Medication Requests - Option 3 General Office / [place] - Option 4 Results - Option 6 Medical Records - Option 7 Repeat Options - Option 9 documented in this [facility] Work Phone: 1([phone]) 280-875411-20-2023 Hospital Discharge instructions Patient Education 07/05/2023 12:39:53 [...] large amounts of blood in stool Seizure 8245-4812 [employer]. [address] [place] [address]. All rights reserved. This information is not intended as a substitute for professional medical care. Always follow yourhealthcare professional's instructions. Follow Up Care 07/05/2023 11:05:09 With:COY NATH DO Address: [address] [address] [phone] When:2-4 days [facility] 11-20-2023 Emergency department Discharge summary Discharge Instructions Thank you for allowing [facility] to assist you with your healthcare needs. The following is importantdischarge information regarding your hospital visit. Diagnosis from Today's Visit Drug rash Rash What to Do Next Instructions from Your Care Team No qualifying data available. Post Acute Orders No qualifying data available. You Need to Schedule the Following Appointments Follow Up with COY NATH DO When Within 2-4 days Where: [facility] [address] [place] [place] [address]- [phone] Allergies Nitro TD Patch-A pseudoephedrine (unknown) triprolidine [...] large amounts of blood in stool Seizure 3996-7092 [employer]. [address] [place] [address]. All rights reserved. This information is not intended as a substitute for professional medical care. Always follow yourhealthcare professional's instructions. Additional Information VACCINATE! IT SAVES LIVES! Members of the community who have not yet received the COVID-19 vaccine and would like to receive it can visit one of [facility] vaccine clinics. There are many vaccine clinic locations within the [facility]. For locations and available times, please visit www.gettheshot.coronavirus.[place].gov/. It is important to note that some COVID mobile vaccine clinics are held outdoors and may be canceled in rainy or stormy conditions. To learn more about pediatric vaccinations (ages 5-11), we invite you to visit the [facility] webpage. https://www.[facility].org/pages/9112-Iarje-Pzmsvgjfqpl-Nijnquutuz-Rjczm-Zut stions.htmlTo learn more about the COVID-19 vaccine, we invite you to visit the CDC website for a list of frequently asked questions. https://www.cdc.gov/coronavirus/2019-ncov/vaccines/faq.html [facility] Patient Portal Access Instructions: Stay connected with your healthcare team and access your personal medical information anytime with the [employer] Patient Portal. If you would like a full copy of your medical records please contact the [facility] Medical Records Department Wednesday through Wednesday between 8a.m. and 4:30p.m. Please follow the directions below to access the portal: 1.Access the email account you provided upon registration to the [facility].2.Look for an invitation email from [facility].3.Open the email and access the invitation link: Accept Invitation to [facility]4.Fill in the required campa to create your account. Sign into www.[employer] with your username and password that you [...] you will allow to register on the [facility] Patient Portal for access to your information. You can also access the [employer] Patient Portal on the [employer] anaya. Simply click on "Health Records" under "HealthData" and then click on the Annie logo. [...] Call your local pharmacy or go to [email or web address] to find one close to you.3.Make use of household items: Use cat litter or old coffee grounds to dispose medications if other options arenot available. Mix your drugs with these household products, seal them in an airtight container andthrow it into the garbage. Call [facility]: [phone] to be sure your drugs can be [...] am aware that I should contactmy doctor. Patient/Section Gang Signature: Date/Time: Relationship to Patient: Witness Name/Signature: Date/Time: [facility] [id number] Discharge summary Author Sivan Martinez [facility] June 08, 2023 5:37pm Note Date/Time June 08, 2023 5 :37pm [facility] Medical Records Department [facility] [place] [address] Discharge Summary 06/08/23 1722 MR#: [id number] Acct: [id number] Name: MODESTA COOK Rep #:[id number] : 1940 82 From: Sivan Martinez MD PCP: Dr. Coy Nath, DO Status:AD M IN [facility] Providers Date of Admission: 06/07/23 Date [...] patient wanted to discuss anticoagulation with her vehicle washer who ultimately decided not to continue anticoagulation. [...] (Auto) 77.4 H, Lymph % (Auto) 10.8L, [place] % (Auto) 10.5 H, Eos % (Auto) [...] Care Hospital Charges/Coding Visit Charges Inpatient E&M: 30454 Disch Hosp >30min 06/08/237 <Electronically signed by Sivan Martinez MD> Cosigner Signature (if applicable): CC: Dr. Coy Nath DO; Dr. Sivan Martinez MD~ Signed [facility] Work Phone: 1([phone]) 190-418210-24-2023 Discharge summary Author Sivan Martinez [facility] June 08, 2023 5:22pm Note Date/Time June 08, 2023 5 :19pm [facility] Medical Records Department [address] [place] [address] Instructions for Home/Discharge Instructions 06/08/231716 MR#: [id number] Acct: [id number] Name: MODESTA COOK Rep #:[id number] : 1940 82 From: Sivan Martinez MD [...] Qty: 90 3RF Referrals / Follow Up: Cyo Nath DO [Primary Care Provider] - Disposition Disposition (needs filled in before D/C Order can be placed): [facility] 06/08/232<Electronically signed by Sivan Martinez MD>Sivan Martinez MD CC: Dr. Coy Nath DO; Dr. Colton Mayfield MD ~ Signed [facility] Work Phone: [phone]) 835-802310-24-2023 Progress note Author Sivan Martinez [facility] June 08, 2023 12:25pm Note Date/Time June 08, 2023 9 :09am [facility] Medical Records Department [address] [place] [address] Progress Note - Hospitalist 06/08/23901 MR#: [id number] Acct: [id number] Name: MODESTA COOK Rep #:[id number] : 1940 82 From: Sivan Martinez MD PCP: Dr. Coy Nath, DO Status:AD M IN Location: [place] [address]- 1 Reason for Visit Reason for Visit: Diagnoses [...] 23:12: PT 14.3, INR 1.1, APTT 32.9 10/24/23 06:48: WBC 14.2 H, RBC 3.12 L, Hgb 8.7 L, Hct 26.8 L, MCV 85.9, MCH 27.9, MCHC 32.5, RDW Std Deviation 42.4, RDW Coeff of Juve 13.5, Plt Count 549 H,MPV 8.6, Immature Gran % (Auto) 0.700, Neut % (Auto) 77.4 H, Lymph % (Auto) 10.8L, [place] % (Auto) 10.5 H, Eos % (Auto) [...] 5. Normocytic anemia of chronic disease: H&H 9.3/29.6. Patient has thrombocythemia since May 2023 first [...] documentation, 60minutes Charges/Coding Visit Charges Inpatient E&M: 54526 [facility] Hosp L3 06/08/23 1225 <Electronically signed by Sivan Martinez MD> Cosigner Signature (if applicable): CC: ~ Signed [facility] Work Phone: 1(286) 606-800710-24-2023 Discharge summary Author Binh Ken [facility] June 08, 2023 12:26am Note Date/Time June 07, 2023 7 :47pm [facility] Medical Records Department [address] [place] [address] Emergency Department Summary 06/07/23 MR#: [id number] Acct: [id number] Name: MODESTA COOK Rep #:[id number] : 1940 82 From: Binh Ken MD PCP: Dr. 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 I have already spoken to the hospitalist [...] rhythm rate 83 no acute signs of MO or ischemia. Discharge Plan Dx/Rx/DC Orders Clinical Impression: Exertional dyspnea, Anemia, History of atrial fibrillation, Bilateral pleural effusion, Acute hyponatremia Disposition Disposition: Acute Care Hospital [facility] What to do if you have Problems For any increased pain, shortness of breath, bleeding, nausea or vomiting, chestpain, or any unexpected problems, contact your Primary Care Provider. Call [facility] ([phone]) or report to the closest Emergency Room. Call 911 if necessary. 06/08/2325 <Electronically signed by Binh Ken MD> Cosigner Signature (if applicable): CC: Dr. Coy Nath, DO ~ Signed [facility] Work Phone: 1(709) 541-679010-23-2023 History and physical note Author Colton Mayfield [facility] June 07, 2023 8:55pm Note Date/Time June 07, 2023 8 :47pm [facility] Medical Records Department [address] [place] [address] H&P Exam - Hospitalist 06/07/232031 MR#: [id number] Acct: [id number] Name: MODESTA COOK Rep #:[id number] : 1940 82 From: Colton Danielson PCP: Dr. Coy Nath, DO Status:AD M IN Location: [place] [address] HPI - General General Date of Admission: [...] range pulse ox 90% on room air. [facility] Medical History Arthritis Atrial fibrillation Cardiac murmur Chronic back pain Chronic pain Frequent headaches Frequent UTI History of hemorrhoids History of pneumonia History of stomach ulcers Hyperlipemia Hypertension NECK/BACK PAIN Shortness of breath Home Medications aspirin 81 mg tablet,delayed release 81 mg PO DAILY HEART 11/24/16 [History Last Taken Unknown] methylcellulose (laxative) 500 mg tablet (Citrucel) 500 mg PO DAILY PRN constipation 05/26/21 [History Last Taken Unknown] hydrochlorothiazide 12.5 mg [...] 5. Normocytic anemia of chronic disease: H&H 9.3/29.6. Patient has thrombocythemia since May 2023 first [...] daughter near the bedside is power of city attorney for health. After discussion of benefits/risks [...] onthe life support. Total time spent in shfa-oh-ftrs encounter in discussion of advanced directive 17 minutes. Charges/Coding Visit Charges Inpatient E&M: 75072 Init Hosp L3 Procedures Hospitalists Procedures: 93451 Advncd Care Plan 30 Min 06/07/232054 <Electronically signed by Colton Mayfield MD> Cosigner Signature (if applicable): CC: Dr. Coy Nath, DO; Dr. Colton Mayfield MD~ Signed [facility] Work Phone: 1(765) 349-511710-11-2023 Progress note Author Sivan Martinez [facility] May 26, 2023 12:42pm Note Date/Time May 26, 2023 8 :55am [facility] Medical Records Department [address] [place] [address] Progress Note - Hospitalist 05/26/23 0852 MR#: [id number] Acct: [id number] Name: MODESTA COOK Rep #:[id number] : 1940 82 From: Sivan Martinez MD PCP: Dr. Coy Nath DO Status:AD M IN Location: [place] [id number]- 1 Reason for Visit Reason for Visit: Diagnoses [...] 78.7 H, Lymph % (Auto) 9.3 L, [place] % (Auto) 7.2, Eos % (Auto) 3.1, [...] Clarity Clear, Urine pH 6.0, Ur Specific Kaycee 1.010, Urine Protein Negative, Urine Glucose (UA) [...] (Auto) 63.0, Lymph % (Auto) 18.8 L, [place] % (Auto) 9.9, Eos % (Auto) 6.0 [...] better today and has follow-up with her vehicle washer tomorrow, pending echocardiogram will consider DC with [...] with colleagues Charges/Coding Visit Charges Inpatient E&M: 35202 Subs Hosp L2 05/26/23 1242 <Electronically signed by Sivan Martinez MD> Cosigner Signature (if applicable): CC: ~ Signed [facility] Work Phone: 1(516) 251-550010-10-2023 History and physical note Author Anjum Wilson [facility] May 25, 2023 7:31pm Note Date/Time May 25, 2023 5 :38pm [facility] Medical Records Department [address] [facility] [place] [address] H&P Exam - Hospitalist 05/25/23 1719 MR#: [id number] Acct: [id number] Name: MODESTA COOK Rep #:[id number] : 1940 82 From: Anjum king MD PCP: Dr. Coy Nath, DO Status:AD M IN Location: [place] [address] HPI - General General Date of Admission: [...] She denies any chest pain or lightheadedness. [facility] Medical History (Updated 05/25/23 @ 16:27 by [...] 78.7 H, Lymph % (Auto) 9.3 L, [place] % (Auto) 7.2, Eos % (Auto) 3.1, [...] Clarity Clear, Urine pH 6.0, Ur Specific Kaycee 1.010, Urine Protein Negative, Urine Glucose (UA) [...] with colleagues Charges/Coding Visit Charges Inpatient E&M: 66298 Init Hosp L3 05/25/231930 <Electronically signed by Anjum Wilson MD> Cosigner Signature (if applicable): CC: Dr. Coy Nath, ; Dr. Anjum Wilson MD~ Signed [facility] Work Phone: 1(290) 548-362910-10-2023 Discharge summary Author Reinier Toney [facility] May 25, 2023 3:30pm Note Date/Time May 25, 2023 1 1:10am [facility] Medical Records Department [address] [place] [address] Emergency Department Summary 05/25/23 MR#: [id number] Acct: [id number] Name: MODESTA COOK Rep #:[id number] : 1940 82 From: Reinier Toney MD PCP: Dr. Coy Nath DO Status:RE G ER Location: ED HPI [...] Recent immobilization, Recent surgery or Recent travel [facility] Medical History (Updated 05/25/23 @ 15:14 by [...] already waited several hours post albuterol treatment venecia still has A-fib with RVR, starting her [...] 78.7 H Lymph % (Auto) 9.3 L Brookings % (Auto) 7.2 Eos % (Auto) 3.1 [...] Clarity Clear Urine pH 6.0 Ur Specific Kaycee 1.010 Urine Protein Negative Urine Glucose (UA) [...] Management Discussion w/another healthcare provider: Hospitalist and Employment Program Representative (cardiology [facility]) Critical Care Time Critical Care Time: Yes Critical care time (excluding procedures): 30-74 minutes (36 min), Including time spent:, Discussing w/Patient &/or Family/New Vehicle Sales Consultant, Discussing w/Consultants, Arranging Admission or Transfer and [...] Care Provider: Coy Nath Referrals: Coy Nath, DO [Primary Care Provider] - What to do if you have Problems For any increased pain, shortness of breath, bleeding, nausea or vomiting, chestpain, or any unexpected problems, contact your Primary Care Provider. Call [facility] ([phone]) or report to the closest Emergency Room. Call 911 if necessary. 05/25/23 1530 <Electronically signed by Reinier Toney MD> Cosigner Signature (if applicable): CC: Dr. Coy Nath, DO ~ Signed [facility] Work Phone: Consult note Author David Arevalo [facility] May 26, 2023 4:04pm Note Date/Time May 26, 2023 4 :04pm [facility] Medical Records Department [address] [facility] [place] [address] Counseling Note - Pharmacy 05/26/23 1603 MR#: [id number] Acct: [id number] Name: MODESTA COOK Rep #:[id number] : 1940 82 From: David Arevalo PCP: Dr. Coy Nath, DO Status:NELLY S IN Y Location: [facility] FVI022 1 Pharmacy [facility] Service has performed discharge medication reconciliation [...] tablet 12.5 mg PO DAILY #90 tabs 04/11/23 potassium chloride 20 mEq tablet,extended release 20 [...] signed by David alfonso> Date _ David Orrigner Signature (if applicable): Date CC: ~ Signed [facility] Work Phone: Consult note Author Gabino Julio [facility] Note Date/Time May 02, 2025 8:14[facility] Medical Records Department [address] [place] [address] Anesthesia Postop Eval I 05/02/25812 MR#: [id number] Acct: [id number] Name: MODESTA COOK Rep #:[id number] : 1940 84 From: Gabino Julio PCP: Dr. Coy Nath, DO Status:RE G SDC Y Race: C Location: [place] [address] Anesthesia: Postop Eval I Current Vital Signs Temperature: 97 F Pulse Rate: 61 Blood Pressure: 153/55 Respiratory Rate: 16 Pulse Ox: 99 Oxygen Delivery Method: Room Air Assessment Airway patent: Yes Spontaneous unlabored respirations: Yes Mental status: Awake and Calm nausea: No Vomiting: No Anesthesia Complication: No Fluid Hydration Crystalloid volume administer (ml): 400 Total IV fluid infused: 400 Progress Note Anesthesia document: Postop Eval 1 completed: Yes 05/02/25 0814 <Electronically signed by Gabino Julio > Date _ Gabino Julio Domingaigntiffanie Signature: Date CC: ~ Signed [facility] Work Phone: Discharge summary Author Sivan Martinez [facility] May 26, 2023 3:30pm Note Date/Time May 26, 2023 3 :09pm [facility] Medical Records Department [address] [place] [address] Instructions for Home/Discharge Instructions 05/26/23 1508 MR#: [id number] Acct: [id number] Name: MODESTA COOK Rep #:[id number] : 1940 82 From: Sivan Martinez MD [...] that you would discuss this with your vehicle washer tomorrow at your follow-up appointment. Imperative that you follow-up with your vehicle washer as scheduled -We will discharge you with [...] Recorder Preventi (Urgent) Timeframe: 1 Day Facility: [facility] - Location: Cardiovascular Services Ordered By: Dr. Sivan Martinez Referrals / Follow Up: Coy Nath DO [Primary Care Provider] - Within 1 Week Disposition Disposition (needs filled in before D/C Order can be placed): Home, Self Care 05/26/23 1530<Electronically signed by Sivan Martinez MD>Sivan Martinez MD CC: Dr. Coy Nath, DO; Dr. Anjum Wilson MD; Patients vehicle washer~ Signed [facility] Work Phone: Discharge summary Author Sivan Martinez [facility] May 26, 2023 3:30pm Note Date/Time May 26, 2023 3 :30pm [facility] Medical Records Department [facility] [place] [address] Discharge Summary 05/26/23 1527 MR#: [id number] Acct: [id number] Name: MODESTA COOK Rep #:[id number] : 1940 82 From: Sivan Martinez MD PCP: Dr. Coy Nath DO Status:AD M IN Location: [place] [address] Providers Date of Admission: 05/25/23 Date of [...] history of hypertension and UTIs presented to [facility] 05/25/2023 with shortness of breath and hypoxia [...] She has a follow-up appointment with her vehicle washer tomorrow and would like to discuss this [...] that you would discuss this with your vehicle washer tomorrow at your follow-up appointment. Imperative that you follow-up with your vehicle washer as scheduled -We will discharge you with [...] (Auto) 63.0, Lymph % (Auto) 18.8 L, Brook[place] % (Auto) 9.9, Eos % (Auto) 6.0 [...] and State: [facility] / [place] Tel , Service support , D/C Instructions [...] that you would discuss this with your vehicle washer tomorrow at your follow-up appointment. Imperative that you follow-up with your vehicle washer as scheduled -We will discharge you with [...] Recorder Preventi (Urgent) Timeframe: 1 Day Facility: [facility] - Location: Cardiovascular Services Ordered By: Dr. Sivan Martinez Referrals / Follow Up: Coy Nath DO [Primary Care Provider] - Within 1 Week Disposition Disposition (needs filled in before D/C Order can be placed): Home, Self Care Charges/Coding Visit Charges Inpatient E&M: 14405 Disch Hosp >30min 05/26/23 1530 <Electronically signed by Sivan Martinez MD> Cosigner Signature (if applicable): CC: Dr. Coy Nath DO; Dr. Sivan Martinez MD~ Signed [facility] Work Phone: Evaluation + Plan note Future Appointments Appointment Date:07/07/2023 11:00:00 AM Scheduled Provider:SAMMI ARREDONDO Location:[facility] Appointment Type:[facility] Evaluation note* Diagnosis Onset Date Resolution Status Hyperlipemia chronic Hypertension chronic Urge incontinence of urine c hronic [facility] Work Phone: Evaluation note* Diagnosis Onset Date Resolution Status Cystitis acute [facility] Work Phone: Evaluation note* Diagnosis Onset Date Resolution Status Cystitis acute Sinusitis chronic, frontal a cute UTI (urinary tract infection), bacterial acute Hypertension chronic Allergic drug rash due to anti-infective agent acute Shortness of breath acute Atrial fibrillation with RVR acute Atypical pneumonia acute Hypoxemia acute [facility] Work Phone: Evaluation note* Diagnosis [...] dyspnea acute History of atrial fibrillation acute [facility] Work Phone: Evaluation note* Diagnosis [...] dyspnea acute History of atrial fibrillation acute [facility] Work Phone: Evaluation note* Diagnosis Atrial fibrillation, unspecified type (CMS/HCC)- Primary Aortic valve sclerosis Aortic valve disorders Mixed hyperlipidemia documented in this encounter [facility] Work Phone: Evaluation note* Diagnosis Onset [...] atrial fibrillation acute Hyperlipemia chronic Hypertension chronic [facility] Work Phone: Evaluation note* Diagnosis [...] Cystitis acute History of atrial fibrillation acute [facility] Work Phone: Evaluation note* Diagnosis [...] Hypertension chronic Bilateral pleural effusion r esolved [facility] Work Phone: Evaluation note* Diagnosis Atrial fibrillation, unspecified type (CMS/HCC)- Primary Aortic valve sclerosis Aortic valve disorders Mixed hyperlipidemia documented in this encounter [facility] Work Phone: Hospital course Narrative No data available for this section [facility] Reason for referral (narrative)* Consultation (Routine) - Authorized Specialty Diagnoses / Procedures Referred By Contac t Referred To Contact Cardiology Diagnoses Aortic valve sclerosis Mixed hyperlipidemia Atrial fibrillation, unspecified type (CMS/HCC) Procedures Follow Up In Cardiology Mal Phipps MD [address] [address] Referral ID Status Reason Start Date Expiration Date V isits Requested Visits Authorized [id number] Authorized 07/20/2023 07/19/2024 1 1 [facility] Work Phone: Retnav for referral (narrative)* Consultation (Routine) - Authorized Specialty Diagnoses / Procedures Referred By Contsalma t Referred To Contact Cardiology Diagnoses Aortic valve sclerosis Mixed hyperlipidemia Atrial fibrillation, unspecified type (CMS/HCC) Procedures Follow Up In Cardiology Mal Phipps MD [address] [facility] [address] [address] Referral ID Status Reason Start Date Expiration Date V isits Requested Visits Authorized [id number] Authorized 10/26/2023 10/25/2024 [address] [facility] Work Phone: Reucnu for referral (narrative)No reason for [facility]: Chief Complaint and Reason for [...] B/L EFFUSION B/L EFFUSION acute - [facility] FOLLOW UP Reason for Visit Sinusitis [...] [facility] 1 M FU Reason for Visit Shortness of breath Atypical [...] 08/28September 06 1:52pm [facility] HERNIA DOS 08/28October 05 2:43pm Cough October 11, 2024 11:27am 6 [...] 10, 2025 9:21am Chief Complaint Admit Date congestion/drainage January 10, 2025 9:21a m 3 M FU March 22, 2025 3:1 6pm Reason for Visit Admit Date Sinusitis, acute frontal January 10, 2025 9:21am Constipation March 22, 2025 3:1 6pm Diarrhea March 22, 2025 3:1 6pm Difficulty swallowing March 22, 2025 3 :16pm Early satiety March 22, 2025 3:1 6pm Abdominal pain May 02, 2025 6:22am Anemia May 02, 2025 6:22am Early satiety May 02, 2025 6:22am Family History No Family History Records Found Relationship Condition Age at Onset Recorded Date/T raysa mother Diabetes mellitus Unknown Hypertension Unknown Cerebrovascular accident (CVA) Unknown father Myocardial infarction 80 brother Malignant neoplasm Unknown Advance Directives No Advanced Directives Records Found Advance Directive Response Recorded Date/ Time Living Will No May 25 4:17pm Power of Solder Cream Maker No May 25, 2023 4:17pm Advance Directive Response Recorded Date/ Time Name of Medical Power of Solder Cream Maker joseph cook June 07, 2023 9:31pm Living Will No June 07 9:31pm Power of Solder Cream Maker Yes June 07, 2023 9:31pm Latest Code [...] Date/ Time Name of Medical Power of Solder Cream Maker joseph cook June 07, 2023 8:31pm Living Will No July 09 2 023 1:59pm Power of Solder Cream Maker No July 09, 2023 1:59pm Advance Directive Response Recorded Date/ Time Living Will No July 09, 2 023 2:59pm Power of Solder Cream Maker No July 09, 2023 2:59pm Living Will No June 01 5:29pm Power of Solder Cream Maker Yes June 01, 2024 5:29pm Living Will Yes August 28 8:43pm Power of Solder Cream Maker Yes August 28, 2024 8:43pm Name of Medical Power of Solder Cream Maker DAUGHTER August 28, 2024 8:43pm Advance Directive Response Recorded Date/ Time Living Will No July 09, 2 023 2:59pm Do you have a Healthcare Power of Solder Cream Maker? No July 09, 2023 2:59pm Living Will Yes August 28 8:43pm Do you have a Healthcare Power of Solder Cream Maker? Yes August 28, 2024 8:43pm Name of Medical Power of Solder Cream Maker DAUGHTER August 28, 2024 8:43pm Advance Directive Response Recorded Date/ Time Living Will No July 09 2 023 2:59pm Do you have a Healthcare Power of Solder Cream Maker? No July 09, 2023 2:59pm Advance Directive Response Recorded Date/ Time Do you have a Healthcare Power of Solder Cream Maker? Yes April 26, 2025 1:59pm Summary Purpose Additional Source Comments Goals (unrecognized [...] 2025 End: January 10, 2025 Dr. Coy Ntah DO Attending Provider Active Start: January 10, [...] Provider Active Sta rt: August 29, 2024 BELEN LagunaC Attending Provider Active Start: August 29, 2024 Team Status: Inactive Member Role Status Dates Dr. Coy Nath DO Primary Care Provider Active Start: September 06, 2024 End: September 06, 2024 Dr. Coy Nath DO Referring Provider Active Start: September 06, 2024 End: September 06, 2024 BELEN LagunaC Attending Provider Active Start: September 06, 2024 End: September 06, 2024 Team Status: Active Member Role Status Dates Dr. Jaylen Jones DO Family Provider Active Dr. Coy Nath DO Primary Care Provider Active Team Status: Inactive Member Role Status Dates Dr. Coy Nath DO Primary Care Provider, Referr ing Provider Active Srikanth LONGORIA PA Attending Provider Active Team Status: Inactive Member Role Status Dates Dr. Coy Nath DO Primary Care Provider Active Srikanth LONGORIA PA Attending Provider, Referring Provi destiny Active Team Status: Inactive Member Role Status Dates Dr. Coy Nath DO Primary Care Pr ovider, Attending Provider, Referring Provider Active Team Status: Inactive Member Role Status Dates Dr. Coy Nath DO Primary Care Provider, Referr ing Provider Active Clari LONGORIA PA Attending Provider Active Team Status: Active Member Role Status Dates Dr. Coy Nath DO Primary Care Provider Active Dr. Reinier [...] Nath , DO Primary Care Provider Active SWATI Cortés Attending Provider, Referring Pr ovider Active Team Status: Inactive Member Role Status Dates Dr. Coy Nath , DO Primary Care Provider Active Dr. Reinier Toney MD Emergency Provider Active Dr. Anjum Wilson MD Admit Provider, Other Pro vider Active Dr. Sivan Martinez MD Attending Provider Active Team Status: Inactive Member Role Status Dates Dr. Coy Nath , DO Primary Care Provider Active SWATI Cortés Attending Provider, Referring Pr ovider Active Team Status: Inactive Member Role Status Dates Dr. Coy Nath , DO Primary Care Provider, Referr ing Provider Active Dr. Angelica Brown MD Attending Provider Active Team Status: Active Member Role Status Dates Dr. Coy Nath DO Primary Care Provider Active Dr. Binh Ken MD Emergency Provider Active Dr. Colton Mayfield MD Admit Provider, A ttending Provider, Other Provider Active Team Status: Active Member Role Status Dates Dr. Coy Nath DO Primary Care Provider Active Dr. Binh Ken MD Emergency Provider Active Dr. Colton Mayfield MD Admit Provider, Other Provider Active Dr. Sivan Martinez MD Attending Provider, Other Provid er Active Team Status: Active Member Role Status Dates Dr. Coy Nath DO Primary Care Provider Active Dr. Andrew Haile MD Attending Provider Active Team Status: Inactive Member Role Status Dates Dr. Coy Nath DO Primary Care Provider Active Dr. Binh Ken MD Emergency Provider Active Dr. Colton Mayfield MD Admit Provider, Other Provider Active Dr. Sivan Martinez MD Attending Provider Active Team Status: Active Member Role Status Dates Dr. Coy Nath DO Primary Care Provider Active Dr. Angelica Brown MD Attending Provider, Referring Provider Active Team Status: Inactive Member Role Status Dates Dr. Coy Nath DO Primary Care Provider Active Dr. 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 Coy Nath , DO Primary Care Provider Active Dr. Sivan Martinez MD Attending Provider, Referring Pr ovider Active Team Status: Inactive Member Role Status Dates Dr. Coy Nath , DO Primary Care Provider Active Dr. Jhonny Marr MD Attending Provider, Emergency Provi destiny Active Team Status: Inactive Member Role Status Dates Dr. 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 oCy Nath DO Primary Care Provider Active Start: [...] End: March 22, 2025 Dr. Coy Nath DO Referring Provider Active Start: March 22, 2025 End: March 22, 2025 SWATI Rdz Attending Provider Active Start: March 22, 2025 End: March 22, 2025 Team Status: Active Member Role/Relationship Status Dates Dr. Coy Nath DO Primary care physician Active Team Status: Inactive Member Role/Relationship Status Dates Dr. Coy Nath DO Primary care physician Active Start: January 10, 2025 End: January 10, 2025 Dr. Coy Nath DO Attending physician Active Start: January 10, 2025 End: January 10, 2025 Dr. Coy Nath DO Referring Provider Active Start: January 10, 2025 End: January 10, 2025 Team Status: Inactive Member Role/Relationship Status Dates Dr. Coy Nath DO Primary care physician Active Start: March 22, 2025 End: March 22, 2025 Dr. Coy Nath DO Referring Provider Active Start: March 22, 2025 End: March 22, 2025 SWATI Rdz Attending physician Active Start: March 22, 2025 End: March 22, 2025 Team Status: Inactive Member Role/Relationship Status Dates Dr. Coy Nath DO Primary care physician Active Start: May 02, 2025 End: May 02, 2025 Dr. Coy Nath DO Referring Provider Active Start: May 02, 2025 End: May 02, 2025 Dr. George Guzmán DO Attending physician Active Start: May 02, 2025 End: May 02, 2025 Team Status: Active Member Role/Relationship Status Dates Dr. Coy Nath DO Primary care physician Active Start: May 02, 2025 Dr. Coy Nath DO Referring Provider Active Start: May 02, 2025 Dr. George Guzmán DO Attending physician Active Start: May 02, 2025 Dr. George Guzmán DO Nurse Practitioner Active Start: May 02, 2025 INFORMATION SOURCE (unrecogn ized section and content) DATE CREATED AUTHOR 08/04/2023 [facility] DATE CREATED AUTHOR AUTHOR'S ORGANIZ ATION 04/24/2024 [facility] DATE CREATED AUTHOR AUTHOR'S ORGANIZ ATION 07/10/2024 [facility] DATE CREATED AUTHOR AUTHOR'S ORGANIZ ATION 06/01/2025 [facility] Reason for Visit (unrecogniz ed section and content) Reason Comments Follow-up Atrial Fibrillation Specialty Diagnoses / Procedures Referred By Kartik t Referred To Contact Cardiology Diagnoses Aortic valve sclerosis Mixed hyperlipidemia Atrial fibrillation, unspecified type (CMS/HCC) Procedures Follow Up In Cardiology Mal Phipps MD [address] [facility] [address] [place] [id number] Referral ID Status Reason Start Date Expiration Date V isits Requested Visits Authorized [id number] Authorized 07/20/2023 07/19/2024 1 1 FOR RECORDS [...] BE BASED ON THE PRIMARY CLINICAL RECORDS. [facility] provides no warranty or guarantee of the accuracy or completeness of information in this document.
== END | disposition home or self-care (01) ==
LOC: US 17:37
PROVIDERS: PCP Family Medicine; Referring Provider Family Medicine; Visit Provider Family Medicine
DX: E06.3 Autoimmune thyroiditis (principal)
CPT/HCPCS: 76536

== ENCOUNTER → 2025-06-22 | Outpatient (CLI) | payer MEDICARE, SELFPAY ==
--- NOTE | 2025-06-22 16:02 | RAD_ITS ---
PROCEDURE: RAD/Chest PA and Lateral
== END | disposition home or self-care (01) ==
LOC: MTRAD 16:02
PROVIDERS: PCP Family Medicine; Referring Provider Family Medicine; Visit Provider Family Medicine
DX: J18.9 Pneumonia, unspecified organism (principal)
CPT/HCPCS: 71046

== ENCOUNTER → 2025-07-03 | Outpatient (CLI) | payer MEDICARE, SELFPAY ==
[2025-07-03 10:01] LABS: Mucous, Urine 0 SEEN /hpf (<or=2+); Red Blood Cells-Urine 0 SEEN /hpf (0-5)
--- NOTE | 2025-07-03 10:10 | RAD_ITS ---
PROCEDURE: CHEST PA AND LATERAL 07/03/2025 REASON FOR EXAM: SOB TECHNIQUE: Procedure Code: RADCXR Modality: DX Procedure: CHEST PA AND LATERAL COMPARISON: June 22, 2025 FINDINGS: Heart size is within normal limits. Central vascularity appears increased. There diffuse interstitial and alveolar infiltrates with a component of fibrosis, similar to the prior. There is a 0.8 cm calcified granuloma in the left upper lung, similar to the prior. Calcified mediastinal lymph nodes are visible. Aortic calcifications are present. There is no acute bony abnormality. RAD/Chest PA and Lateral IMPRESSION: There diffuse interstitial and alveolar infiltrates with a component of fibrosi s, similar to the prior. Reading Location: [facility]
--- NOTE | 2025-07-03 10:35 | CT_ITS ---
PROCEDURE: CTA CHEST W/WO CONTRAST 07/03/2025 REASON FOR EXAM: SOB Fatigue. History of pneumonia. TECHNIQUE: Procedure Code: CTCTACHWW Modality: CT Procedure: CTA CHEST W/WO CONTRAST Multiplanar Sagittal and Coronal images were obtained. 3D post processing was performed CONTRAST: Isovue-300 VOLUME: 100 mL One or more dose reduction techniques were used (e.g., Automated exposure control, adjustment of the mA and/or kV according to patient size, use of iterative reconstruction technique). RADIATION DOSE SUMMARY: CTDlvol: 9.06 mGy DLP: 318.43 mGycm COMPARISON: Prior chest radiograph done earlier in the day. FINDINGS: Hardware: EKG electrodes. Lymph nodes: Scattered benign-appearing lymph nodes are seen in the mediastinum. Heart: Borderline cardiomegaly. Coronary artery calcification. Calcification of the aortic arch. Thoracic Aorta: Contrast timing is designed to evaluate the pulmonary arteries. The thoracic aorta has a normal contour. Contrast opacification of the aorta is suboptimal for evaluation of the lumen. Pulmonary Vessels: The pulmonary arteries are well opacified. No evidence of pulmonary embolism. Lungs and Airways: There is evidence of patchy airspace disease in both upper lobes worse on the left side as well as in the lower lobes worse at the left lung base. This may represent bilateral pulmonary infiltrates superimposed on chronic scarring. Radiographic follow-up is recommended. Pleura: No pleural effusion. Upper Abdomen: Left renal cyst. Bones: Degenerative changes of the thoracic spine. CT/CTA Chest W/WO Contrast IMPRESSION: No evidence of pulmonary embolism. Bilateral patchy airspace disease worse in the left hemithorax superimposed on chronic scarring. Follow-up recommended. Reading Location: [id number]
[2025-07-03 12:27] LABS: Hematocrit 39.0 % (37-47); Hemoglobin 12.9 g/dL (12.0-15.0); Immature Granulocytes Count 0.050 X10^3/uL (0.0-0.0); Mean Corp Hgb Conc 33.1 g/dL (32-36); Mean Corpuscular Volume 90.7 fL (81-99); Mean Platelet Vol. 12.2 fl (6.2-12.0); NRBC Flagged by Analyzer 0 % (0-5); POSITIVE COUNT YES; RBC Distribution Width CV 12.3 % (11.6-14.6); RBC Distribution Width SD 40.8 fl (35.1-43.9); Red Blood Count 4.30 M/mm3 (4.2-5.4); White Blood Count 12.2 K/mm3 (4.4-11.0)
[2025-07-03 12:54] LABS: Color, Urine Yellow (Yellow); Glucose, Dipstick Normal (Normal); Ketone-Dipstick Negative (Negative); Leukocyte Esterase-Dipstick 100 /ul (Negative); Nitrite-Dipstick Negative (Negative); Occult Blood-Urine 10 /ul (Negative); Protein-Dipstick 15 mg/dl (Negative); Specific Gravity, Urine 1.015 (1.002-1.030); Urine Bilirubin Dipstick Negative (Negative)
[2025-07-03 12:56] LABS: AST(SGOT) 114 U/L (<=31); Alanine Aminotransfer ALT/SGPT 118 U/L (<=34); Albumin, Serum 3.6 g/dL (3.4-4.8); Alkaline Phosphatase 84 U/L (35-104); Anion Gap 9 (5-15); BUN 24 mg/dL (4-19); BUN/Creat Ratio 36.0 RATIO (10-20); Calcium,Total 9.8 mg/dL (7.6-11.0); Carbon Dioxide 23.9 mmol/L (21.0-32.0); Chloride 95 mmol/L (98-108); Globulin 4.6 g/dL (2.2-4.2); Glucose 96 mg/dL (70-99); Potassium 4.4 mmol/L (3.3-5.1); Pro- Brain NATRIURETIC PEPTIDE 269 pg/mL (<=1800)
[2025-07-03 13:00] LABS: Differential Indicated SCAN CRITERIA MET
[2025-07-03 13:01] LABS: Differential Comment SCANNED
[2025-07-03 13:10] LABS: Squamous Epithelial Cells - UA 0-5 SEEN /hpf (5-10); Transitional Epithelial - Ur 0-5 SEEN /hpf (0-5)
== END | disposition home or self-care (01) ==
LOC: CT 10:34
PROVIDERS: PCP Family Medicine; Referring Provider Family Medicine; Visit Provider Family Medicine
DX: R06.02 Shortness of breath (principal)
CPT/HCPCS: 36415; 71046; 71275; 80053; 81001; 83880; 85025; Q9967

== ENCOUNTER → 2025-07-19 | Outpatient (CLI) | payer MEDICARE, SELFPAY ==
[2025-07-19 17:36] LABS: Hematocrit 38.1 % (37-47); Hemoglobin 12.4 g/dL (12.0-15.0); Immature Granulocytes Count 0.030 X10^3/uL (0.0-0.0); Mean Corp Hgb Conc 32.5 g/dL (32-36); Mean Corpuscular Volume 92.0 fL (81-99); NRBC Flagged by Analyzer 0 % (0-5); POSITIVE COUNT YES; RBC Distribution Width CV 12.5 % (11.6-14.6); RBC Distribution Width SD 42.3 fl (35.1-43.9); Red Blood Count 4.14 M/mm3 (4.2-5.4); White Blood Count 8.8 K/mm3 (4.4-11.0)
[2025-07-19 18:03] LABS: AST(SGOT) 98 U/L (<=31); Alanine Aminotransfer ALT/SGPT 101 U/L (<=34); Albumin, Serum 3.6 g/dL (3.4-4.8); Alkaline Phosphatase 82 U/L (35-104); Anion Gap 9 (5-15); BUN 24 mg/dL (4-19); BUN/Creat Ratio 31.5 RATIO (10-20); Calcium,Total 9.9 mg/dL (7.6-11.0); Carbon Dioxide 24.6 mmol/L (21.0-32.0); Chloride 96 mmol/L (98-108); Cholesterol 151 mg/dL (<=200); Globulin 4.6 g/dL (2.2-4.2); Glucose 116 mg/dL (70-99); Low Density Lipoprotein Calc. 81 mg/dL; Magnesium 1.9 mg/dL (1.5-2.2); Potassium 4.9 mmol/L (3.3-5.1); Triglycerides 74 mg/dL; Very Low Density Lipoprotein 15 mg/dL (5-40); Vitamin D,25 Hydroxy 21.2 ng/mL (30-100); cholesterol:hdl ratio screen 2.71
[2025-07-19 20:29] LABS: Differential Comment SCANNED; Differential Indicated SCAN CRITERIA MET
== END | disposition home or self-care (01) ==
LOC: MTLAB 16:34
PROVIDERS: PCP Family Medicine; Referring Provider Family Medicine; Visit Provider Family Medicine
DX: R73.09 Other abnormal glucose (principal); I48.91 Unspecified atrial fibrillation; E78.5 Hyperlipidemia, unspecified; I10 Essential (primary) hypertension; E55.9 Vitamin D deficiency, unspecified
CPT/HCPCS: 36415; 80053; 80061; 82306; 83036; 83735; 85025

== ENCOUNTER → 2025-07-27 | Outpatient (CLI) | payer MEDICARE, SELFPAY ==
--- NOTE | 2025-07-27 13:21 | RAD_ITS ---
PROCEDURE: CHEST PA AND LATERAL 07/27/2025 REASON FOR EXAM: PULMONARY FIBROSIS TECHNIQUE: Procedure Code: RADCXR Modality: DX Procedure: CHEST PA AND LATERAL COMPARISON: 07/03/2025 FINDINGS: The heart and mediastinum remain stable. There is indistinctness of the left heart border obscured by diffuse airspace disease throughout the left lung in parenchymal opacities and distortion throughout the right peripheral lung. The findings are stable since previous study. Atherosclerosis of the aorta is present. No pneumothorax or effusion seen. Osseous structures are stable with scoliosis and multilevel disc disease RAD/Chest PA and Lateral IMPRESSION: Diffuse interstitial and alveolar opacities consistent with fibrosis. No balbuena e since previous exam. Reading Location: [id number]
[2025-07-27 15:35] LABS: Hematocrit 37.8 % (37-47); Hemoglobin 12.1 g/dL (12.0-15.0); Immature Granulocytes Count 0.030 X10^3/uL (0.0-0.0); Mean Corp Hgb Conc 32.0 g/dL (32-36); Mean Corpuscular Volume 92.4 fL (81-99); NRBC Flagged by Analyzer 0 % (0-5); POSITIVE COUNT YES; RBC Distribution Width CV 12.5 % (11.6-14.6); RBC Distribution Width SD 42.5 fl (35.1-43.9); Red Blood Count 4.09 M/mm3 (4.2-5.4); White Blood Count 10.0 K/mm3 (4.4-11.0)
[2025-07-27 15:44] LABS: CRP 11.30 mg/L (0.0-3.0)
[2025-07-27 16:39] LABS: Differential Indicated SCAN CRITERIA MET
[2025-07-27 18:41] LABS: Differential Comment SCANNED
[2025-07-30 14:08] LABS: ANTINUCLEAR ANTIBODIES DIRECT Negative (Negative); Anti-dsDNA Ab <1 IU/mL (0-9); SJOGREN'S Anti-SS-A test < 0.2 AI (0.0-0.9); SJOGREN'S Anti-SS-B test < 0.2 AI (0.0-0.9)
[2025-07-31 15:08] LABS: Angiotensin Convert Enzyme 105 U/L (14-82); Anti-Smooth Muscle ABS 46 Units (0-19); Cytoplasmic Ab (C-ANCA) <1:20 titer (Neg:<1:20); Perinuclear Ab (P-ANCA) <1:20 titer (Neg:<1:20)
== END | disposition home or self-care (01) ==
LOC: MTLAB 13:20
PROVIDERS: PCP Family Medicine; Referring Provider Internal Medicine Pulmonary Disease; Visit Provider Internal Medicine Pulmonary Disease
DX: J84.10 Pulmonary fibrosis, unspecified (principal)
CPT/HCPCS: 36415; 71046; 82164; 83516; 85025; 85652; 86037; 86038; 86140; 86200; 86225; 86235; 86762

== ENCOUNTER → 2025-07-31 | Outpatient (CLI) | payer MEDICARE, SELFPAY ==
--- NOTE | 2025-07-31 14:54 | ECHOCS_ITS ---
Reason For Study Reason For Study: SOB Procedure This was a 2D Doppler, Color Flow transthoracic echocardiogram. The patient is in sinus rhythm. The study was technically difficult. Contrast injection was performed. Exam performed in department. Left Ventricle Normal LV size. Left ventricular systolic function is normal. The left ventricular ejection fraction is 65 %. No regional wall motion abnormalities noted. Right Ventricle Normal RV size. Normal systolic function. Atria Normal left atrium. Normal right atrium. Mitral Valve There is mild to moderate mitral annular calcification. Tricuspid Valve Normal tricuspid valve. Mild (1+) tricuspid valve insufficiency. Pulmonary artery systolic pressure is 30 mmHg. Aortic Valve Normal aortic valve. Pulmonic Valve Normal pulmonic valve. Great Vessels Normal aortic root. The pulmonary artery is normal size. Inferior vena cava collapse with respiration. Pericardium/Pleural No pericardial effusion. Medication 22 gauge I.V. with prn adaptor inserted into left arm. Diluted definity 1ml given slow IV push to enhance endocardial definition. MMode/2D Measurements & Calculations LVIDd: 4.1 cm IVSd: 1.2 cm Ao root diam: 3.5 cm LVIDs: 2.2 cm LVPWd: 0.68 cm RVDd: 3.5 cm FS: 46.2 % LAV(MOD-bp): 62.2 ml LVAd ap4: 24.0 cm2 SV(MOD-sp4): 48.7 ml LAV(MOD-bp) Indexed: 40.0 ml/m2 LVLd ap4: 6.6 cm SI(MOD-sp4): 31.3 ml/m2 LAV(MOD-sp2): 74.0 ml EDV(MOD-sp4): 71.4 ml LAV(MOD-sp4): 50.6 ml EDV(sp4-el): 73.6 ml LVAs ap4: 11.8 cm2 LVLs ap4: 4.9 cm ESV(MOD-sp4): 22.7 ml ESV(sp4-el): 23.9 ml EF(MOD-sp4): 68.3 % EF(sp4-el): 67.5 % SV(sp4-el): 49.7 ml LA A4 area: 19.1 cm2 LA dimension(2D): 4.0 cm RA A4 area: 15.8 cm2 TAPSE: 2.1 cm Time Measurements MV dec time: 0.28 sec Doppler Measurements & Calculations MV E max james: 83.9 cm/sec Lat Peak E' James: 7.4 cm/sec Med Peak E' James: 6.8 cm/sec MV A max james: 68.9 cm/sec E/E' lat: 11.4 E/E' med: 12.4 MV E/A: 1.2 MV V2 max: 106.1 cm/sec MV P1/2t max james: 108.7 cm/sec Ao V2 max: 192.2 cm/sec MV max P.5 mmHg MV P1/2t: 101.7 msec Ao max P.8 mmHg MV V2 mean: 51.9 cm/sec MV dec slope: 313.1 cm/sec2 Ao V2 mean: 133.9 cm/sec MV mean P.3 mmHg MVA(P1/2t): 2.2 cm2 Ao mean P.2 mmHg MV V2 VTI: 34.6 cm Ao V2 VTI: 47.1 cm AV (velocity ratio): 0.69 LV V1 max: 128.3 cm/sec PA V2 max: 74.5 cm/sec TR max james: 258.6 cm/sec LV V1 max P.6 mmHg TR max P.8 mmHg LV V1 mean P.6 mmHg LV V1 mean: 89.1 cm/sec LV V1 VTI: 32.7 cm ECHO/Echo Complete W/ Contrast Interpretation Summary Normal LV size. Left ventricular systolic function is normal. The left ventricular ejection fraction is 65 %. Pulmonary artery systolic pressure is 30 mmHg. Contrast injection was performed. Ordering Physician: Brock Marcial Referring Physician: Brock Marcial Performed By: Rajendra Whitley RCS
== END | disposition home or self-care (01) ==
LOC: CVS 14:52
PROVIDERS: PCP Family Medicine; Referring Provider Family Medicine; Visit Provider Family Medicine
DX: R06.02 Shortness of breath (principal)
CPT/HCPCS: 93306; Q9957; A4216; C8929